=== PATIENT | female | born 1940 | race Caucasian/White ===

== ENCOUNTER → 2016-09-12 | Day surgery (SDC) | payer MEDICARE, OTHER ==
[2016-09-09 15:49] VITALS: Ht 162.6 cm; Wt 47.7 kg
[~2016-09-12] VITALS: Ht 162.6 cm; Wt 47.7 kg
[~2016-09-12] MED LIST: ACET-1175 PO; ADVIN25/60 INH; ADVIN25050 INH; AMIT75TA2 PO; ANAG1CAP PO; CLC100 PO; CLOP1TAB15 PO; DAPT500I; DLD2 PO; DRGTP50 TD; DRGTP50 TOP; ERGO1CAP41 PO; ERGO500037 PO; ESCI10TA17 PO; GUAI1TAB75 PO; HYD500 PO; HYDR2TAB48 PO; HYDR500C3 PO; LIDOCAINE HCL 2% 2 ML VIAL (20MG/ML) ONE; LORA10CA2 PO; LVNIS30 SQ; MOMLX PO; MXL10 PO; NCDT14 TD; NICO14DI31 TD; NUTRLIQ21 PO; ONDA8TAB6 PO; OXYC-57 PO; PANT40TA PO; PREG1CAP28 PO; PREG1CAP36 PO; PREG75CA PO; PROPOFOL IV EMULSION 10 MG/ML 20 ML VIAL IV ONE; PRT/20 PO; PRT/40 PO; PRT40 PO; PRVHFAIN INH; RIZA1TAB11 PO; SNK PO; SODIUM CHLORIDE 0.9% 500ML 500 ML IV ONE; TEMA30CA4 PO; ZNTT/150 PO
--- NOTE | 2016-09-12 09:47 | GI REPORT ---
Procedure Date: 09/12/2016 9:26 AM Procedure: Upper GI endoscopy Indications: Follow-up of acute duodenal ulcer with hemorrhage Medicines: Monitored Anesthesia Care Complications: No immediate complications. Estimated blood loss: None. Estimated Blood Loss: Estimated blood loss: none. Procedure: Pre-Anesthesia Assessment: - Prior to the procedure, a History and Physical was performed, and patient medications, allergies and sensitivities were reviewed. The patient's tolerance of previous anesthesia was reviewed. - ASA Grade Assessment: III - A patient with severe systemic disease. After obtaining informed consent, the endoscope was passed under direct vision. Throughout the procedure, the patient's blood pressure, pulse, and oxygen saturations were monitored continuously. The Scope was introduced through the mouth, and advanced to the third part of duodenum. The upper GI endoscopy was accomplished with ease. The patient tolerated the procedure well. Findings: The examined esophagus was normal. The Z-line was regular and was found 39 cm from the incisors. A medium amount of food (residue) was found on the greater curvature of the stomach. One non-bleeding cratered duodenal ulcer with no stigmata of bleeding was found in the duodenal bulb. An acquired benign-appearing, intrinsic moderate stenosis was found in the distal duodenal bulb and was traversed. Impression: - Normal esophagus. - Z-line regular, 39 cm from the incisors. - A medium amount of food (residue) in the stomach. - One non-bleeding duodenal ulcer with no stigmata of bleeding. - Acquired duodenal stenosis. - No specimens collected. Recommendation: - Chopped diet. - Use Protonix (pantoprazole) 40 mg PO BID. - Perform an upper GI endoscopy in 1 month. Vance Redding M.D. Vance Redding MD 09/12/2016 9:46:15 AM This report has been signed electronically. Note Initiated On: 09/12/2016 9:26 AM
--- NOTE | 2016-09-12 09:47 | Endo History and Physical ---
History & Physical Date of Service: Sep 12, 2016. Chief Complaint: 8WK F/U DUODENAL ULCER Referring Physician: DR. RIKKI AHN History of Present Illness History of duodenal ulcer, for follow up Past Surgical History Hx Cardiac Surgery: No Hx Internal Defibrillator: No Hx Pacemaker: No Hx Abdominal Surgery: Yes (AVELINO, GARIMA) Hx of Implantable Prosthesis: No Hx Post-Op Nausea and Vomiting: No Hx Cancer Surgery: Yes (RT MASTECTOMY) Hx Thoracic Surgery: No Hx Orthopedic: Yes (ORIF LEFT HIP) Hx Urinary Tract Surgery: No Family History Colon CA Social History Smoking Status: Current Every Day Smoker Hx Substance Use: Yes (SEE MED REC) Hx Alcohol Use: No Allergies Coded Allergies: Lobster (Verified Allergy, Severe, HIVES, 09/12/16) NO KNOWN DRUG ALLERGIES (Verified Allergy, Unknown, ., 09/12/16) Current Medications Reported Home Medications Medications Dose Route/Sig Max Daily Dose Days Date Category Dose Instructions [place] Instant Breakfa (Nutritional Supplements) 1 Liq Liq 1-2 Dose PO DAILY 09/01/16 Reported Lexapro (Escitalopram Oxalate) 10 Mg Tab 10 Mg PO DAILY 08/24/16 Reported Plavix (Clopidogrel Bisulfate) 75 Mg Tab 75 Mg PO DAILY 08/24/16 Reported Zofran (Ondansetron HCl) 8 Mg Tab 8 Mg PO TID PRN 08/24/16 Reported Elavil (Amitriptyline Hcl) 75 Mg Tab 75 Mg PO HS 08/24/16 Reported Hydromorphone HCl 2 Mg Tab 2 Mg PO Q4H PRN 30 08/02/16 Rx Advair Diskus 250-50 Mcg/Dose (Fluticasone Prop/Salmeterol) 14 Puff/1 Inhaler Aerp 1 Puff INH BID 30 08/02/16 Rx Pantoprazole Sodium (Pantoprazole) 40 Mg Tab 40 Mg PO BID 30 07/25/16 Rx Docusate Sodium 100 Mg Cap 100 Mg PO BID 30 07/25/16 Rx HOLD FOR LOOSE STOOL Rizatriptan Benzoate 10 Mg Tab 10 Mg PO UD PRN 07/25/16 Rx Fentanyl 50 Mcg Tdsy 50 Mcg TD Q3D@1800 30 07/25/16 Rx Ventolin Hfa (Albuterol) 60 Puffs/5400 Mcg Aers 2 Puffs INH Q6H PRN 30 07/25/16 Rx Restoril (Temazepam) 30 Mg Cap 30 Mg PO HS 30 07/25/16 Rx Lyrica (Pregabalin) 75 Mg Cap 75 Mg PO DAILY 07/23/16 Reported Vital Signs Weight (Kilograms): 47.73 Height (Feet): 5 Height (Inches): 4 Date Time Temp Pulse Resp B/P Pulse Ox O2 Delivery O2 Flow Rate FiO2 09/12/16 08:59 36.8 66 16 91/50 96 Room Air Physical Exam General Appearance: WD/WN, no apparent distress Respiratory/Chest: Auscultation: breath sounds normal, no wheezing Cardiovascular: Heart Auscultation: RRR, no murmurs Abdomen: Inspection & Palpation: soft, no tenderness, guarding & rebound Assessment and Plan Cleared for EGD
--- NOTE | 2016-09-12 09:50 | Discharge Instructions ---
Endoscopy Patient Instructions Date / Procedure(s) Performed Sep 12, 2016. EGD Allergy Information Coded Allergies: Lobster (Verified Allergy, Severe, HIVES, 09/12/16) NO KNOWN DRUG ALLERGIES (Verified Allergy, Unknown, ., 09/12/16) Discharge Date / Findings Sep 12, 2016. Duodenal ulcer. Duodenal stricture. Retain food in stomach. Medication Instructions Stopped Medication(s): PLAVIX 09/11/16 Restart Stopped Medication(s): Restart medications. Take pantoprazole twice daily, before breakfast and before supper. Provider Instructions Activity Restrictions - No exercising or heavy lifting for 24 hours. - Do not drink alcohol the day of the procedure. - Do not drive a car or operate machinery until the day after the procedure. - Do not make any important decisions or sign important papers in 24 hours after the procedure. Following Day: - Return to full activity which may include returning to work/school. Diet Start your diet with liquids and light foods (jello, soup, juice, toast). Then advance to a soft, chopped diet. Treatment For Common After Affects For mild abdominal pain, bloating, or excessive gas: - Rest - Eat lightly - Lie on right side Follow-Up Information Follow-up with DR. RIKKI AHN as scheduled Repeat EGD in one month. Stay on a liquid diet for the day before the procedure. Anesthesia Information What You Should Know You have had a procedure that required some medicine to reduce anxiety and discomfort. This treatment is called moderate sedation. After receiving the treatment, you may be sleepy, but you will be able to breathe on your own. The effects of the treatment may last for several hours. Follow these instructions along with Activity/Diet recommendations noted above: * Do NOT do anything where dizziness or clumsiness would be dangerous. * Rest quietly at home today, then you can be up and about tomorrow. * Have a responsible person stay with you the rest of today. * You may have had an I.V. today. If so, you may take the dressing off later today. Recommendations Call your doctor if: * Trouble breathing * Continuous vomiting for more than 24 hours * Temperature above 101 degrees * Severe abdominal pain or bloating * Pain not relieved by pain medicine ordered * There is increased drainage or redness from any incision * A large amount of rectal bleeding greater than 2-3 tablespoons. (If you had a polyp/s removed or have hemorrhoids, a small amount of blood - from the rectum is to be expected.) * You have any unanswered questions or concerns. IN THE EVENT OF A SERIOUS EMERGENCY, GO TO THE NEAREST EMERGENCY ROOM Your discharge instructions were prepared by provider Vance Redding. Patient Instructions Signature Page Abbie Rand Patient (or Guardian) Signature/Date: I have read and understand the instructions given to me by my caregivers. Caregiver/RN/Doctor Signature/Date: The above-named patient and/or guardian has received patient instructions on this date. + Original Patient Signature Page (only) stays with chart. Please make copy for patient.
[2016-09-12 10:10] VITALS: BP 101/55; PULSE 83; O2SAT 95
--- NOTE | 2016-09-12 11:18 | Anesthesiology Progress Note ---
Anesthesia Post Op Note Date & Time Sep 12, 2016 at 11:17 Vital Signs Pain Intensity: 0 Vital Signs Past 12 Hours Date Time Temp Pulse Resp B/P Pulse Ox O2 Delivery O2 Flow Rate FiO2 09/12/16 10:10 83 16 101/55 95 Room Air 09/12/16 09:55 85 16 104/55 96 Room Air 09/12/16 09:40 88 16 118/58 98 Room Air 09/12/16 08:59 36.8 66 16 91/50 96 Room Air Notes Mental Status: alert / awake / arousable, participated in evaluation Pt Amnestic to Procedure: Yes Nausea / Vomiting: adequately controlled Pain: adequately controlled Airway Patency, RR, SpO2: stable & adequate BP & HR: stable & adequate Hydration State: stable & adequate Anesthetic Complications: no major complications apparent
== END | disposition home or self-care (01) ==
LOC: C.GI 08:25
PROVIDERS: ATTEND Internal Medicine Gastroenterology
DX: Z09 Encounter for follow-up examination after completed treatment for conditions other than malignant neoplasm (principal); K26.9 Duodenal ulcer, unspecified as acute or chronic, without hemorrhage or perforation; K31.5 Obstruction of duodenum; J44.9 Chronic obstructive pulmonary disease, unspecified; F32.9 Major depressive disorder, single episode, unspecified; F41.9 Anxiety disorder, unspecified; Z68.1 Body mass index [BMI] 19.9 or less, adult; Z79.02 Long term (current) use of antithrombotics/antiplatelets

== ENCOUNTER → 2016-09-22 | Outpatient (CLI) | payer MEDICARE, OTHER ==
[~2016-09-22] VITALS: Ht 162.6 cm; Wt 48.4 kg
[~2016-09-22] MED LIST changes: +ACETAMINOPHEN 500 MG TAB PO SCH; +CEFAZOLIN 2000 MG/60 ML D5W 60 ML IV SCH; +DEXAMETHASONE 4 MG TAB PO SCH; +FAMOTIDINE 20 MG TAB PO SCH; +GABAPENTIN 300 MG CAP PO SCH; +LACTATED RINGER'S 1000ML IV SCH; -LIDOCAINE HCL 2% 2 ML VIAL (20MG/ML) ONE; +METOCLOPRAMIDE HCL 10 MG TAB PO SCH; +POLYMYXIN B SULFATE 100,000 UNITS in NSS 100ML IR SCH; -PROPOFOL IV EMULSION 10 MG/ML 20 ML VIAL IV ONE; +ROPIVACAINE 5MG/ML 30 ML 150 MG, BUPIVACAINE/EPINEPHR 0.5% MPF 30 ML, KETOROLAC TROMETH... INFIL SCH; -SODIUM CHLORIDE 0.9% 500ML 500 ML IV ONE; +VANCOMYCIN INJ 400 MG in NSS 100ML IR SCH; -ZNTT/150 PO
[2016-09-22 15:33] VITALS: Ht 162.6 cm; Wt 48.4 kg
--- NOTE | 2016-09-22 15:53 | HISTORY & PHYSICAL EXAMINATION ---
DATE OF ADMISSION: 09/26/2016 CHIEF COMPLAINT: Failed open reduction internal fixation left hip. HISTORY OF PRESENT ILLNESS: Ms. Rand is a 76-year-old female who had a hip fracture in March 2016 and has subsequently undergone ORIF of the left hip with cannulated screws. The patient has been painful since her surgery. She was recently admitted to [facility] for a bleeding ulcer and was evaluated for hip pain. 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 She has been medically unstable since that time. She is also diagnosed with myeloproliferative disease. She has since been cleared by her GI doctor. Hematology has evaluated her and has determined that it would be up to anesthesia and Dr. Avendaño and whether they would like to proceed with her case knowing that she is a high risk. The patient is also a smoker, which increases her risk for clotting. The patient is currently wheelchair bound and is aware of the risk factors involved. The patient is being seen in our office today for preop. PAST MEDICAL HISTORY: Myeloproliferative disease and history of GI bleed. She denies heart disease, diabetes or DVT. PAST SURGICAL HISTORY: Hysterectomy, breast mastectomy, and ORIF left hip. SOCIAL HISTORY: The patient denies alcohol use. She smokes 6-9 cigarettes per day. She lives in a 2-story home with her daughter and her grandchildren and is retired. FAMILY HISTORY: Negative for DVT. MEDICATIONS: Hydromorphone 2 mg tablets 1 tablet q. 4-6 hours p.r.n., Restoril 30 mg at bedtime p.r.n., Lyrica 1 tablet at bedtime, amitriptyline 75 mg at bedtime, Protonix 40 mg b.i.d. and Plavix 75 mg daily. ALLERGIES: None. REVIEW OF SYSTEMS: See HPI. Ten other systems reviewed, all negative. PHYSICAL EXAMINATION: VITAL SIGNS: Height 5 feet 4 inches, weight 102 pounds, BMI is 18. GENERAL: This is a well-developed, well-nourished female who is alert and oriented x3. Mood and affect are appropriate. HEENT: Normocephalic, atraumatic. Mucous membranes are moist and intact. NECK: Supple without lymphadenopathy. HEART: Regular rate and rhythm without murmurs, rubs or gallops. LUNGS: Clear to auscultation without wheezes or rhonchi. ABDOMEN: Soft and nontender. Bowel sounds are equal and active. EXTREMITIES: No ecchymosis, redness or warmth. She has a lateral scar from previous surgery. Log roll of the hip reproduces pain in the groin. She is neurovascularly intact with +5/5 strength. X-RAY EXAMINATION: AP and lateral views show significant drainage changes over the left hip with failure of her ORIF. IMPRESSION AND PLAN: The patient will be admitted for removal of hardware with left total hip arthroplasty per Dr. Avendaño. The patient is aware that she is high risk for surgery due to her clotting disorder and her smoking habit. The patient is currently on Plavix, which will need to be stopped today in order to proceed with surgery on Monday. The patient is having anesthesia evaluation today; if cleared, the patient will plan for surgery on Monday. At this point, I feel patient is optimized. Her GI ulcer is healing and is not actively bleeding. Again, she is wheelchair bound. The patient would like to proceed despite the risk factors. We will resume Plavix and likely an 81 mg aspirin daily postoperatively. PCP is Dr. Chavez of [facility].
--- NOTE | 2016-09-22 16:31 | PAT Medication Instructions ---
Service Date Sep 22, 2016. Current Home Medication List Albuterol (Ventolin Hfa), 2 PUFFS INH Q6H PRN for wheezing Amitriptyline Hcl (Elavil), 75 MG PO HS Clopidogrel (Plavix), 75 MG PO QAM Fentanyl (Fentanyl), 1 PATCH TOP EVERY THREE DAYS Fluticasone Prop/Salmeterol (Advair Diskus 250-50 Mcg/Dose), 1 PUFF INH BID Nutritional Supplements ([place] Instant Breakfa), 1-2 DOSE PO DAILY Ondansetron Hcl (Zofran), 8 MG PO TID PRN for Nausea Pantoprazole (Protonix), Unknown Dose PO BID Pantoprazole (Pantoprazole Sodium), 1 TAB PO BID Pregabalin (Lyrica), 75 MG PO HS Rizatriptan Benzoate (Rizatriptan Benzoate), 10 MG PO UD PRN for headache Temazepam (Restoril), 30 MG PO HS Medication Instructions For Your Scheduled Surgery Clopidogrel (Plavix), 75 MG PO QAM (last dose was 09/22/16 per surgeon instructions) Fentanyl (Fentanyl), 1 PATCH TOP EVERY THREE DAYS (continue as usual) Rizatriptan Benzoate (Rizatriptan Benzoate), 10 MG PO UD PRN for headache (only takes with migraines) - Hold the following medications the morning of surgery: Nutritional Supplements ([place] Instant Breakfa), 1-2 DOSE PO DAILY - Take the following medications the morning of surgery with a sip of water: Pantoprazole (Pantoprazole Sodium), 1 TAB PO BID Ondansetron Hcl (Zofran), 8 MG PO TID PRN for Nausea (if needed) Fluticasone Prop/Salmeterol (Advair Diskus 250-50 Mcg/Dose), 1 PUFF INH BID Albuterol (Ventolin Hfa), 2 PUFFS INH Q6H PRN for wheezing (bring with you to hospital on day of surgery) - Take the following medications as scheduled the night before surgery: Temazepam (Restoril), 30 MG PO HS. Pregabalin (Lyrica), 75 MG PO HS Pantoprazole (Pantoprazole Sodium), 1 TAB PO BID Fluticasone Prop/Salmeterol (Advair Diskus 250-50 Mcg/Dose), 1 PUFF INH BID Albuterol (Ventolin Hfa), 2 PUFFS INH Q6H PRN for wheezing Amitriptyline Hcl (Elavil), 75 MG PO HS CALL HOSPITAL MONDAY FOR SURGERY TIME If you have any questions please call us at [phone] or [phone] ( [place]) or [phone]
[2016-09-22 16:38] LABS: URINE APPEARANCE CLEAR (CLEAR); URINE BILIRUBIN NEG (NEG); URINE COLOR YELLOW; URINE NITRITE NEG (NEG); URINE PH 5.5 (4.5-7.5); URINE SPECIFIC GRAVITY 1.017 (1.000-1.030); UROBILINOGEN NEG (NEG); ZZUR CULT IF INDIC CLEAN CATCH NO
[2016-09-22 16:42] LABS: MANUAL MICROSCOPIC REQUIRED? NO; REVIEW REQ? NO
[2016-09-22 16:48] LABS: PARTIAL THROMBOPLASTIN RATIO 1.1; PROTHROMBIN TIME (PATIENT) 10.7 SECONDS (9.0-12.0)
--- NOTE | 2016-09-22 17:20 | DIAGNOSTIC IMAGING REPORT ---
CHEST 2 VIEWS ROUTINE HISTORY: Preop. COMPARISON: Chest 09/01/2016. FINDINGS: The heart is normal in size. The lungs remain hyperexpanded. Blunting of the bilateral costophrenic sulci suggest trace pleural effusions. Postoperative changes within the right breast. Mild anterior wedge-shaped compression deformity at T12. This is age indeterminate. Greater than expected density overlying the lower thoracic spine on the lateral views. This is consistent with a small airspace opacity. No pneumothorax. 8 mm left midlung zone nodular density is consistent with a nipple shadow. IMPRESSION: 1. Small patchy densities at the lung bases best seen on the lateral view. This likely represents a pneumonia. 2. Trace bilateral pleural effusions. 3. Age-indeterminate mild compression deformity at T12. Electronically signed by: Johnnie Simental M.D. 09/22/2016 5:18 PM Dictated Date/Time: 09/22/2016 5:13 PM
== END | disposition home or self-care (01) ==
LOC: C.LAB 08:00 → EDSTATUS 09-26 13:15
PROVIDERS: ATTEND Orthopaedic Surgery
DX: Z01.810 Encounter for preprocedural cardiovascular examination (principal); Z01.812 Encounter for preprocedural laboratory examination

== ENCOUNTER 2016-10-16 16:13 | Inpatient (IN) | payer MEDICARE, OTHER ==
[~2016-10-16] VITALS: Ht 162.6 cm; Wt 46.5 kg
[~2016-10-16 16:13] MED LIST changes: -ACET-1175 PO; -ACETAMINOPHEN 500 MG TAB PO SCH; -ADVIN25/60 INH; -AMIT75TA2 PO; -ANAG1CAP PO; -CEFAZOLIN 2000 MG/60 ML D5W 60 ML IV SCH; -CLC100 PO; -CLOP1TAB15 PO; -DAPT500I; -DEXAMETHASONE 4 MG TAB PO SCH; -DLD2 PO; -DRGTP50 TD; -ERGO1CAP41 PO; -ERGO500037 PO; -ESCI10TA17 PO; -FAMOTIDINE 20 MG TAB PO SCH; -GABAPENTIN 300 MG CAP PO SCH; -GUAI1TAB75 PO; -HYD500 PO; -HYDR2TAB48 PO; -HYDR500C3 PO; -LACTATED RINGER'S 1000ML IV SCH; -LORA10CA2 PO; -LVNIS30 SQ; -METOCLOPRAMIDE HCL 10 MG TAB PO SCH; -MOMLX PO; -NCDT14 TD; -NICO14DI31 TD; -NUTRLIQ21 PO; -ONDA8TAB6 PO; -OXYC-57 PO; -PANT40TA PO; -POLYMYXIN B SULFATE 100,000 UNITS in NSS 100ML IR SCH; -PREG1CAP28 PO; -PREG1CAP36 PO; -PREG75CA PO; -PRT/20 PO; -PRT/40 PO; -PRT40 PO; -RIZA1TAB11 PO; -ROPIVACAINE 5MG/ML 30 ML 150 MG, BUPIVACAINE/EPINEPHR 0.5% MPF 30 ML, KETOROLAC TROMETH... INFIL SCH; -SNK PO; -VANCOMYCIN INJ 400 MG in NSS 100ML IR SCH
--- NOTE | 2016-10-16 16:37 | EMERGENCY ROOM VISIT NOTE ---
History Report prepared by Santiiblang: Sharon Dupree Under the Supervision of: Dr. Ariel Mina M.D. First contact with patient: 16:26 Chief Complaint: HIP PAIN Stated Complaint: L HIP PAIN/INJURY History of Present Illness The patient is a 76 year old female who presents to the Emergency Room with complaints of worsening left sided hip pain for the past several weeks. She is accompanied by her daughter. She reports she broke the hip back in March 2016. She had surgery performed in [place], [place] in April 2016, and was told to stay off her feet for about 8 weeks. She followed the post-op instructions, then in July 2016, was seen here in the hospital for a GI bleed. A CT scan showed the hip had been fractured again. She is awaiting surgery by Dr. Avendaño, [facility], and her daughter reports he wants to do a "whole hip replacement surgery". The patient has not been allowed to walk since July and has been using a wheelchair. She fell two days ago and states she cannot stand the pain, which she rates as an 8/10. She has tried taking Dilaudid, but states it has not touched it. She cannot walk and any movement of the hip worsens her discomfort. She denies any GI symptoms and states her stomach feels much better than it did when she had the GI bleed. Source of History: patient Onset: several weeks [employer] Position: other (left hip) Symptom Intensity: 8/10 Timing: worsening Modifying Factors (Worsening): movement Modifying Factors (Relieving): narcotics (Dilaudid) Review of Systems All systems have been listed, reviewed, and are negative other than those previously mentioned. Please see Additional Medical History Sheet. Past Medical & Surgical Medical Problems: (1) Anemia (2) Anemia due to blood loss, acute (3) Breast CA (4) COPD (chronic obstructive pulmonary disease) (5) History of breast cancer (6) History of peptic ulcer disease (7) Left hip pain (8) Myelodysplastic syndrome (9) S/P ORIF (open reduction internal fixation) fracture Surgical Problems: (1) History of repair of left hip joint (2) Status post cholecystectomy (3) Status post hysterectomy (4) Status post mastectomy Family History Colon cancer FATHER Social History Smoking Status: Current Every Day Smoker Drug Use: none Marital Status: Housing Status: lives with family Occupation Status: unemployed Current/Historical Medications Scheduled Amitriptyline Hcl (Elavil), 75 MG PO HS Clopidogrel (Plavix), 75 MG PO QAM Fentanyl (Fentanyl), 50 MCG TOP CQ72HR Fluticasone Prop/Salmeterol (Advair Diskus 250/50 60 Dose), 1 PUFF INH BID Nutritional Supplements ([place] Instant Breakfa), 1-2 DOSE PO DAILY Pantoprazole (Protonix), 40 MG PO BID Pregabalin (Lyrica), 75 MG PO HS Temazepam (Restoril), 30 MG PO HS Scheduled PRN Albuterol (Ventolin Hfa), 2 PUFFS INH Q6H PRN for Wheezing Hydromorphone Hcl (Dilaudid), 2 MG PO Q4-6HRS PRN for Pain Ondansetron Hcl (Zofran), 8 MG PO TID PRN for Nausea Rizatriptan Benzoate (Rizatriptan Benzoate), 10 MG PO UD PRN for Headache Allergies Coded Allergies: Lobster (Verified Allergy, Severe, HIVES, 10/14/16) Latex1 -Allergic Contact Dermititis (Verified Allergy, Unknown, HIVES, 06/20) NO KNOWN DRUG ALLERGIES (Verified Allergy, Unknown, ., 10/14/16) Uncoded Allergies: METALS (Allergy, Unknown, HIVES/ITCHINESS, 09/22/16) PATIENT REPORTS ANY METALS UNDER 14 KT GOLD CAUSES HER TO BECOME ITCHY AND GET HIVES Physical Exam Vital Signs Date Time Temp Pulse Resp B/P Pulse Ox O2 Delivery O2 Flow Rate FiO2 10/16/16 17:53 87 20 103/53 93 Room Air 10/16/16 16:22 36.8 89 20 108/61 97 Room Air Physical Exam GENERAL: Patient awake, alert, oriented x 3. She appears to be in moderate distress. Patient follows commands. Patient does not appear toxic. Patient is adequately hydrated and well-nourished. SKIN: No erythema, pallor, cyanosis or rash HEENT: Normal head, pupils equal, reactive to light and accommodation. Ears normal. Oral cavity and posterior pharynx appear normal. Neck: Without adenopathy, no neck vein distention. LUNGS: Occasional wheezes bilaterally. No rales, no rhonchi. HEART: No murmurs. No gallops. No rubs ABDOMEN: Soft, nontender. EXTREMITIES: Point tenderness over left hip. Unable to move left leg without significant pain. No pedal or pretibial edema. No calf or thigh tenderness. NEUROLOGIC: Cranial nerves II-XII within normal limits. No gross motor sensory function deficits. Medical Decision & Procedures ER Provider Diagnostic Interpretation: This X-Ray was reviewed and interpreted by myself and the radiologist. CHEST ONE VIEW PORTABLE IMPRESSION: No acute cardiopulmonary findings. Electronically signed by: Constantin Richter M.D. 10/16/2016 5:[address] scan was reviewed and interpreted by the radiologist and reviewed by myself. CT OF THE LEFT HIP WITHOUT CONTRAST IMPRESSION: No change in appearance of the left hip since exam of July 24, 2016 status post internal fixation of a femoral neck fracture with 3 cannulated screws. No acute fracture. Incomplete healing of the mildly displaced, impacted left femoral neck fracture without significant interval healing. No change in alignment. The findings could reflect incomplete union or subacute on chronic fracture. Electronically signed by: Constantin Richter M.D. 10/16/2016 5:54 PM Laboratory Results 10/16/16 16:55 Red Blood Count 4.19, Mean Corpuscular Volume 80.4, Mean Corpuscular Hemoglobin 25.1, Mean Corpuscular Hemoglobin Concent 31.2, Mean Platelet Volume 11.2 10/16/16 16:55 Test 10/16/16 16:55 10/16/16 18:36 White Blood Count 17.14 K/uL (4.8-10.8) Red Blood Count 4.19 M/uL (4.2-5.4) Hemoglobin 10.5 g/dL (12.0-16.0) Hematocrit 33.7 % (37-47) Mean Corpuscular Volume 80.4 fL (80-100) Mean Corpuscular Hemoglobin 25.1 pg (25-34) Mean Corpuscular Hemoglobin Concent 31.2 g/dl (32-36) Platelet Count 1417 K/uL (130-400) Mean Platelet Volume 11.2 fL (7.4-10.4) RDW Standard Deviation 93.7 fL (36.4-46.3) RDW Coefficient of Variation 31.7 % (11.5-14.5) Nucleated RBC Absolute Count (auto) 0.08 K/uL (0-0) Neutrophils % (Manual) 58.3 % Lymphocytes % (Manual) 20.9 % Monocytes % (Manual) 4.3 % Eosinophils % (Manual) 11.3 % Basophils % (Manual) 5.2 % Nucleated Red Blood Cells % 0.5 % Neutrophils # (Manual) 9.99 K/uL (1.4-6.5) Total Absolute Neutrophils 9.99 K/uL (1.4-6.5) Lymphocytes # (Manual) 3.58 K/uL (1.2-3.4) Total Absolute Lymphocytes 3.58 K/uL (1.2-3.4) Monocytes # (Manual) 0.74 K/uL (0.11-0.59) Eosinophils # (Manual) 1.94 K/uL (0-0.5) Basophils # (Manual) 0.89 K/uL (0-0.2) Hypochromasia PRESENT Anisocytosis PRESENT Ovalocytes 1+ Anion Gap 11.0 mmol/L (3-11) Est Creatinine Clear Calc Drug Dose 36.2 ml/min Estimated GFR () 64.3 Estimated GFR (Non- 55.5 BUN/Creatinine Ratio 18.2 (10-20) Calcium Level 8.2 mg/dl (8.5-10.1) Laboratory results as stated above per my review. Medications Administered Medications (Trade) Dose Ordered Sig/Pradip Route Start Time Stop Time Status Last Admin Dose Admin Hydromorphone HCl (Dilaudid Inj) 1 mg Q1HWA PRN IV 10/16/16 16:45 10/30/16 16:44 10/16/16 18:08 1 MG Ondansetron HCl (Zofran Inj) 4 mg Q1HWA PRN IV 10/16/16 16:45 11/15/16 16:44 10/16/16 18:08 4 MG ECG Indication: other (worsening left hip pain) Rate (beats per minute): 85 Rhythm: normal sinus (normal sinus rhythm) Findings: RBBB (incomplete RBBB), no acute ischemic change, no ectopy ED Course 1626: Past medical records reviewed. The patient was evaluated in room B3. A complete history and physical examination was performed. 1645: Zofran 4 mg IV, Dilaudid 1 mg IV. 1821: I discussed the patients case with Aracelis Sommer Hospitalist. The patient will be further evaluated. 183: I discussed the patients case with Dr. Zelaya [facility]. The patient will be further evaluated. 183: I reevaluated the patient. I discussed my recommendation that she remain in the hospital for further evaluation and management and she and her daughter verbalized complete understanding and agreement. Medical Decision The differential diagnoses considered include: New hip fracture, complication from prior surgery, pneumonia, history of peptic ulcer disease. The patient has a history of myelodysplastic syndrome. The patient now states that she is unable to bear the pain at home despite taking Dilaudid. Multiple imaging studies and blood work were obtained. Please see above. The patient does not appear to have a new fracture today but she does have some question of nonunion. The patient is unable to move without significant pain. White count is elevated. Platelet count is elevated. These are consistent with prior studies. I discussed care with orthopedics and with medicine. The patient will require further evaluation in the hospital and pain management. Consults Time Called: 1814 Consulting Physician: Lorena Gallardo PA-C [facility] Returned Call: [phone] I [facility] the [facility] The patient will be further evaluated. Additional Consults: Time Called: 180 Consulted Physician: Dr. Zelaya [facility] Returned Call: [phone] Additional Comments: I discussed the patients case with Dr. Zelaya [facility]. The patient will be further evaluated. Impression Primary Impression: Intractable pain Additional Impressions: History of hip fracture History of repair of left hip joint Myelodysplasia (myelodysplastic syndrome) Peptic ulcer disease History of pneumonia Scribe Attestation The scribe's documentation has been prepared under my direction and personally reviewed by me in its entirety. I confirm that the note above accurately reflects all work, treatment, procedures, and medical decision making performed by me. Departure Information Dispostion Being Evaluated By Hospitalist Referrals Valerie Chavez M.D. (PCP) Patient Instructions My [facility] Problem Qualifiers
[2016-10-16] MEDS: ONDANSETRON INJ 2 MG/ML 2 ML VIAL IV PRN ×2 (16:57→18:08)
[2016-10-16] MEDS: HYDROmorphone INJ 1 MG/ML SYR IV PRN ×4 (16:57→22:50)
[2016-10-16] MEDS ORDERED: TEMA30CA4 PO (17:00)
[2016-10-16] MEDS ORDERED: HYDR2TAB48 PO (17:00)
--- NOTE | 2016-10-16 17:25 | DIAGNOSTIC IMAGING REPORT ---
CHEST ONE VIEW PORTABLE CLINICAL HISTORY: Wheezing. Prior pneumonia. COMPARISON STUDY: Chest radiograph September 22, 2016. FINDINGS: A right breast implant and right axillary surgical clips are noted. Chronic deformity of the left humeral head and neck is noted. There is no pneumothorax or pleural effusion. There is no consolidation to suggest pneumonia. Cardiac size is normal. Mediastinal contours are normal. The patient is rotated. IMPRESSION: No acute cardiopulmonary findings. Electronically signed by: Constantin Richter M.D. 10/16/2016 5:24 PM Dictated Date/Time: 10/16/2016 5:22 PM
[2016-10-16 17:26] LABS: HEMATOCRIT 33.7 % (37-47); MEAN CELL VOLUME 80.4 fL (80-100); MEAN CORPUSCULAR HEMOGLOBIN 25.1 pg (25-34); MEAN CORPUSCULAR HGB CONC 31.2 g/dl (32-36); MEAN PLATELET VOLUME 11.2 fL (7.4-10.4); PLATELET COUNT 1417 K/uL (130-400); RED BLOOD COUNT 4.19 M/uL (4.2-5.4); WHITE BLOOD COUNT 17.14 K/uL (4.8-10.8)
[2016-10-16 17:29] LABS: BUN/CREATININE RATIO 18.2 (10-20); CALCIUM 8.2 mg/dl (8.5-10.1); POTASSIUM 4.3 mmol/L (3.5-5.1)
--- NOTE | 2016-10-16 17:56 | DIAGNOSTIC IMAGING REPORT ---
CT OF THE LEFT HIP WITHOUT CONTRAST CT DOSE: 142.41 mGy.cm CLINICAL HISTORY: Prior fracture and fixation. Recent fall. Left hip pain. TECHNIQUE: Axial images of the left hip were obtained without IV contrast. Sagittal and coronal reconstructions were viewed. COMPARISON STUDY: CT of the left hip July 24, 2016. FINDINGS: 3 cannulated screws fixating a left femoral neck fracture are again noted. The postoperative appearance is unchanged since exam of July 24, 2016. The fracture is subcapital in location. The fracture is impacted and mildly displaced. Hardware is intact although several screws may be retracted. Sclerosis at the fracture site is noted. Partial interval healing of the fracture is noted. No significant change since exam of July 24, 2016 is noted. No acute fracture is identified. The appearance of the left hip is unchanged since prior exam. Subcutaneous edema of the left thigh and buttock is again noted. No fluid collection is identified on this unenhanced examination. IMPRESSION: No change in appearance of the left hip since exam of July 24, 2016 status post internal fixation of a femoral neck fracture with 3 cannulated screws. No acute fracture. Incomplete healing of the mildly displaced, impacted left femoral neck fracture without significant interval healing. No change in alignment. The findings could reflect incomplete union or subacute on chronic fracture. Electronically signed by: Constantin Richter M.D. 10/16/2016 5:54 PM Dictated Date/Time: 10/16/2016 5:40 PM
[2016-10-16 18:02] LABS: ANISOCYTOSIS PRESENT; BASO ABS # 0.89 K/uL (0-0.2); BASOPHIL % 5.2 %; COMPLETE YES; EOSINOPHIL % 11.3 %; HYPOCHROMIA PRESENT; LYMPH ABS # 3.58 K/uL (1.2-3.4); LYMPHOCYTE % 20.9 %; NEUTROPHILS % 58.3 %; OVALOCYTES 1+
[2016-10-16 18:50] LABS: INR 1.1 (0.9-1.1); PARTIAL THROMBOPLASTIN RATIO 1.1; PROTHROMBIN TIME (PATIENT) 11.4 SECONDS (9.0-12.0)
[2016-10-16] MEDS ORDERED: POLYETHYLENE (MIRALAX) 17 GM PACK PO PRN (19:30)
[2016-10-16] MEDS ORDERED: ENOXAPARIN 40 MG/0.4 ML SYR SQ SCH (19:30)
[2016-10-16] MEDS ORDERED: ALBUTEROL HFA 8 GM INHALER INH PRN (19:45)
[2016-10-16] MEDS ORDERED: GUAI1TAB75 PO (19:54)
--- NOTE | 2016-10-16 20:01 | History and Physical ---
History & Physical Date & Time of Service: Oct 16, 2016 at 19:23 Chief Complaint: L Hip Pain/Injury Primary Care Physician: Valerie Chavez M.D. History of Present Illness Source: patient, family, clinic records, hospital records Patient seen and examined. 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 Patient has a history of left hip fracture in March s/p ORIF. 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 She was scheduled for surgery with Dr. Avendaño in September but this was cancelled d/t pneumonia. Patient reports 2 days ago she was standing in front of her wheel chair at the sink and she must not have locked it. When she went to sit back on the wheel chair the chair slid out and she hit the floor. She reports since then she has had increased pain in the left hip and she states it was no longer tolerable with her fentanyl patch and Dilaudid po so she came to the ED. She describes her pain as sharp and throbbing and rates it as an 8/10. She denies fevers, chills, URI symptoms, chest pain, SOB, nausea, vomiting, diarrhea, dysuria, calf pain and edema. Denies numbness/tingling, head trauma. She was recently treat for pneumonia with per patient 2 rounds of Zpaks and reports her breathing and coughing are back at baseline (has underlying COPD). She had a GI bleed in July 2016 and has known duodenal ulcer. She is taking Protonix and is scheduled for repeat EGD later this month. She reports she is currently not under any treatment for myeloproliferative disorder but follows with Dr. Chavez. In the ED VS are stable , platelet count is >1million, WBC count is 17K, CXR is negative for acute changes, CT left hip is unchanged from previous. She received IV Dilaudid and is resting comfortably she will be admitted for further workup and treatment. Past Medical/Surgical History Medical Problems: (1) Anemia Status: Chronic (2) Anemia due to blood loss, acute Status: Chronic (3) Breast CA Status: Resolved (4) History of breast cancer Status: Chronic (5) History of peptic ulcer disease Status: Chronic (6) Myelodysplastic syndrome Status: Chronic (7) S/P ORIF (open reduction internal fixation) fracture Status: Chronic Surgical Problems: (1) History of repair of left hip joint Status: Resolved (2) Status post cholecystectomy Status: Chronic (3) Status post hysterectomy Status: Chronic (4) Status post mastectomy Permanent Comment: modified right mastectomy 1990 Status: Chronic Family History Colon cancer FATHER Social History Smoking Status: Current Every Day Smoker Drug Use: none Marital Status: Housing status: lives with family Occupational Status: retired Immunizations History of Influenza Vaccine: No History of Tetanus Vaccine?: No History of Pneumococcal: No History of Hepatitis B Vaccine: No Multi-Drug Resistant Organisms History of MDRO: No Allergies Coded Allergies: Lobster (Verified Allergy, Severe, HIVES, 10/14/16) Latex1 -Allergic Contact Dermititis (Verified Allergy, Unknown, HIVES, 06/20) NO KNOWN DRUG ALLERGIES (Verified Allergy, Unknown, ., 10/14/16) Uncoded Allergies: METALS (Allergy, Unknown, HIVES/ITCHINESS, 09/22/16) PATIENT REPORTS ANY METALS UNDER 14 KT GOLD CAUSES HER TO BECOME ITCHY AND GET HIVES Home Medications Scheduled Amitriptyline Hcl (Elavil), 75 MG PO HS Clopidogrel (Plavix), 75 MG PO QAM Fentanyl (Fentanyl), 50 MCG TOP CQ72HR Fluticasone Prop/Salmeterol (Advair Diskus 250/50 60 Dose), 1 PUFF INH BID Guaifenesin La (Guaifenesin Er), 600 MG PO Q12H Loratadine (Claritin), 10 MG PO DAILY Nutritional Supplements ([place] Instant Breakfa), 1-2 DOSE PO DAILY Pantoprazole (Protonix), 40 MG PO BID Pregabalin (Lyrica), 75 MG PO HS Temazepam (Restoril), 30 MG PO HS Scheduled PRN Albuterol (Ventolin Hfa), 2 PUFFS INH Q6H PRN for Wheezing Hydromorphone Hcl (Dilaudid), 2 MG PO Q4-6HRS PRN for Pain Ondansetron Hcl (Zofran), 8 MG PO TID PRN for Nausea Rizatriptan Benzoate (Rizatriptan Benzoate), 10 MG PO UD PRN for Headache Review of Systems Constitutional: No chills, No fever, No weakness Eyes: No worsening of vision ENT: No nasal symptoms Respiratory: No cough, No shortness of breath Cardiovascular: No chest pain, No edema, No palpitations Abdomen: No constipation, No diarrhea, No nausea, No pain, No vomiting Musculoskeletal: + joint pain, No calf pain, No swelling Genitourinary - Female: No dysuria Neurologic: No numbness/tingling, No vertigo Psychiatric: No depression symptoms Hematologic / Lymphatic: + problem reported (elevated platelet count ) Integumentary: No itch, No rash Allergic / Immunologic: No environmental allergies Physical Exam Vital Signs Date Time Temp Pulse Resp B/P Pulse Ox O2 Delivery O2 Flow Rate FiO2 10/16/16 17:53 87 20 103/53 93 Room Air 10/16/16 16:22 36.8 89 20 108/61 97 Room Air General Appearance: + pertinent finding (Very pleasant thin 76 year old female lying in bed in NAD with daughter at bedside ) Head: normocephalic, atraumatic Eyes: PERRL, EOMI, sclerae normal ENT: hearing grossly normal, pharynx normal Neck: supple, no JVD, trachea midline Respiratory/Chest: chest non-tender, no respiratory distress, no accessory muscle use, + pertinent finding (coarse breathsounds trace wheezes ) Cardiovascular: regular rate, rhythm, no edema, no gallop, no JVD, no murmur, normal peripheral pulses Abdomen/GI: normal bowel sounds, non tender, soft Back: normal inspection, no muscle spasm Extremities/Musculoskelatal: no calf tenderness, normal capillary refill, no pedal edema, + pertinent finding (Pain to palpation left hip, sensation and pulses intact ) Neurologic/Psych: alert, oriented x 3, + pertinent finding (no motor or sensory deficits noted on gross exam ) Skin: normal color, warm/dry, no rash Lymphatic: no adenopathy Diagnostics Laboratory Results Results Past 24 Hours Test 10/16/16 16:55 Range/Units White Blood Count 17.14 4.8-10.8 K/uL Red Blood Count 4.19 4.2-5.4 M/uL Hemoglobin 10.5 12.0-16.0 g/dL Hematocrit 33.7 37-47 % Mean Corpuscular Volume 80.4 80-100 fL Mean Corpuscular Hemoglobin 25.1 25-34 pg Mean Corpuscular Hemoglobin Concent 31.2 32-36 g/dl Platelet Count 1417 130-400 K/uL Mean Platelet Volume 11.2 7.4-10.4 fL RDW Standard Deviation 93.7 36.4-46.3 fL RDW Coefficient of Variation 31.7 11.5-14.5 % Nucleated RBC Absolute Count (auto) 0.08 0-0 K/uL Neutrophils % (Manual) 58.3 % Lymphocytes % (Manual) 20.9 % Monocytes % (Manual) 4.3 % Eosinophils % (Manual) 11.3 % Basophils % (Manual) 5.2 % Nucleated Red Blood Cells % 0.5 % Neutrophils # (Manual) 9.99 1.4-6.5 K/uL Total Absolute Neutrophils 9.99 1.4-6.5 K/uL Lymphocytes # (Manual) 3.58 1.2-3.4 K/uL Total Absolute Lymphocytes 3.58 1.2-3.4 K/uL Monocytes # (Manual) 0.74 0.11-0.59 K/uL Eosinophils # (Manual) 1.94 0-0.5 K/uL Basophils # (Manual) 0.89 0-0.2 K/uL Hypochromasia PRESENT Anisocytosis PRESENT Ovalocytes 1+ Prothrombin Time 11.4 9.0-12.0 SECONDS Prothromb Time International Ratio 1.1 0.9-1.1 Activated Partial Thromboplast Time 27.9 21.0-31.0 SECONDS Partial Thromboplastin Ratio 1.1 Sodium Level 144 136-145 mmol/L Potassium Level 4.3 3.5-5.1 mmol/L Chloride Level 108 98-107 mmol/L Carbon Dioxide Level 25 21-32 mmol/L Anion Gap 11.0 3-11 mmol/L Blood Urea Nitrogen 18 7-18 mg/dl Creatinine 1.00 0.60-1.20 mg/dl Est Creatinine Clear Calc Drug Dose 36.2 ml/min Estimated GFR () 64.3 Estimated GFR (Non- 55.5 BUN/Creatinine Ratio 18.2 10-20 Random Glucose 94 70-99 mg/dl Calcium Level 8.2 8.5-10.1 mg/dl Diagnostic Radiology CXR Per radiologist read: IMPRESSION: No acute cardiopulmonary findings. CT LEFT HIP Per radiologist read: IMPRESSION: No change in appearance of the left hip since exam of July 24, 2016 status post internal fixation of a femoral neck fracture with 3 cannulated screws. No acute fracture. Incomplete healing of the mildly displaced, impacted left femoral neck fracture without significant interval healing. No change in alignment. The findings could reflect incomplete union or subacute on chronic fracture. EKG NSR 87 BPM QTc 437, incomplete RBBB Impression Assessment and Plan 76 year old female with history of left hip fracture with failed ORIF presents to the ED with worsening hip pain following a fall 2 days ago INTRACTABLE LEFT HIP PAIN - KNOWN H/O LEFT HIP FRACTURE NONUNION, NOW WITH RECENT FALL -Admit to med/surg -CT left hip without new changes -Follows with Dr. Avendaño as outpatient was to have surgery on 09/30 but d/t myeloproliferative disorder and recent GI bleed this was postponed -Orthopedic consult placed - ED spoke with Dr. Zelaya -Pain control with po Dilaudid, and IV for breakthrough pain -Continue Fentanyl patch -Is very high risk for VTE - heme/onc consult placed -PT/OT eval -CBC, PRP, Mg MYELOPROLIFERATIVE DISORDER -Follows with Dr. 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 Chavez -Platelet count 1.4 million today -Very high risk for VTE -continues to smoke, cessation counseling given -Continue Plavix -Heme/onc consult placed COPD -recent pneumonia -CXR without consolidations -WBC count 17K -continue home inhalers H/O GI BLEED -Last EGD in 09/20 with nonbleeding duodenal ulcer -continue PPI -Hgb 10.5 -check Iron Studies -follow H&H ANEMIA -2/2 to acute blood loss anemia in setting of PUD -higher than recent baseline, no active bleeding per patient -HD stable, no need for transfusion -daily H/H as above DEPRESSION/INSOMNIA -continue Amitriptyline, Lyrica, Restoril TOBACCO ABUSE -Cessation counseling given H/O BREAST CA -s/p mastectomy in the DVT PROPHYLAXIS: high risk, Sq Lovenox CODE STATUS: FULL CODE per my discussion with the patient and her daughter DISPO:In my clinical judgment this beneficiary meets acute admission criteria, established by [facility], that includes being hospitalized through two midnights. Patient seen in collaboration with Dr. Cason ADDENDUM: I have seen and examined the patient and discussed the case with the provider above. I agree with the assessment and plan as stated. Her pain is relatively controlled at this time on Fentanyl and Dilaudid. Will consult Heme in setting of extreme thrombocytosis for assistance with antiplatelets/ anticoagulants around a surgery if that is needed. Ortho to eval tomorrow. Desiree Cason, (Hospitalist) Level of Care Med/Surg Resuscitation Status FULL RESUSCITATION VTE Prophylaxis VTE Risk Assessment Done? Y/N: Yes Risk Level: High Given or contraindicated: Enoxaparin (Lovenox)SQ, SCD's
[2016-10-16 20:49] VITALS: Ht 162.6 cm; Wt 46.5 kg
[2016-10-16 21:15] VITALS: BP 104/57; PULSE 83; TEMP 36.9; O2SAT 93
[2016-10-16] MEDS: GUAIFENESIN 600 MG TABCR PO SCH (22:39)
[2016-10-16] MEDS: FLUTICASONE/SALMETEROL 250/50 (ADVAIR) 14 PUFF/1 INHALER INH SCH (22:39)
[2016-10-16] MEDS: PANTOprazole SOD 40 MG TAB PO SCH (22:40)
[2016-10-16] MEDS: AMITRIPTYLINE HCL 25 MG TAB PO SCH (22:41)
[2016-10-16] MEDS: PREGABALIN 75 MG CAP PO SCH (22:44)
[2016-10-16] MEDS: TEMAZEPAM 15 MG CAP PO SCH (22:44)
[2016-10-16 23:20] VITALS: BP 93/57; PULSE 88; TEMP 36.7; O2SAT 93
[2016-10-17] MEDS: CHECK FENTANYL PATCH PLACEMENT SCH ×3 (00:28→15:27)
[2016-10-17] MEDS: HYDROmorphone INJ 1 MG/ML SYR IV PRN ×3 (00:30→06:08)
[2016-10-17] MEDS ORDERED: RIZATRIPTAN BENZOATE 10 MG TAB PO PRN (01:00)
[2016-10-17] MEDS: HYDROmorphone HCL 2 MG TAB PO PRN ×2 (04:33→17:45)
[2016-10-17 06:11] VITALS: BP 97/60; PULSE 81; O2SAT 91
[2016-10-17 07:33] LABS: MEAN CORPUSCULAR HGB CONC 31.3 g/dl (32-36)
[2016-10-17 07:34] LABS: HEMATOCRIT 30.4 % (37-47); MEAN CELL VOLUME 81.3 fL (80-100); MEAN CORPUSCULAR HEMOGLOBIN 25.4 pg (25-34); PLATELET COUNT 1218 K/uL (130-400); RED BLOOD COUNT 3.74 M/uL (4.2-5.4); WHITE BLOOD COUNT 15.77 K/uL (4.8-10.8)
[2016-10-17 07:43] LABS: CALCIUM 8.3 mg/dl (8.5-10.1); CREATININE 0.91 mg/dl (0.60-1.20); POTASSIUM 3.8 mmol/L (3.5-5.1)
[2016-10-17 07:47] LABS: FERRITIN 621.2 ng/ml (8.0-388.0)
[2016-10-17 07:54] LABS: ANISOCYTOSIS PRESENT; BASO ABS # 0.27 K/uL (0-0.2); BASOPHIL % 1.7 %; COMPLETE YES; EOSINOPHIL % 12.2 %; HYPOCHROMIA PRESENT; LARGE PLATELETS 2+; LYMPH ABS # 3.01 K/uL (1.2-3.4); LYMPHOCYTE % 19.1 %; NEUTROPHILS % 63.5 %; POIKILOCYTOSIS PRESENT; SCHISTOCYTES 1+
[2016-10-17 08:14] VITALS: BP 90/47; PULSE 82; TEMP 36.8; O2SAT 96
[2016-10-17] MEDS: FLUTICASONE/SALMETEROL 250/50 (ADVAIR) 14 PUFF/1 INHALER INH SCH ×2 (08:22→20:30)
[2016-10-17] MEDS: GUAIFENESIN 600 MG TABCR PO SCH ×2 (08:22→20:29)
[2016-10-17] MEDS: LORATADINE 10 MG TAB PO SCH (08:23)
[2016-10-17] MEDS: PANTOprazole SOD 40 MG TAB PO SCH ×2 (08:23→20:31)
[2016-10-17] MEDS ORDERED: CLOPIDOGREL BISULFATE 75 MG TAB PO SCH (09:00)
[2016-10-17] MEDS: ENOXAPARIN 40 MG/0.4 ML SYR SQ SCH (09:00)
--- NOTE | 2016-10-17 10:31 | Clinical Documentation Query ---
CLINICAL DOCUMENTATION QUERY 76-y/o female who had undergone ORIF of left femoral neck in March has a known nonunion of said repair since July 2016 presents to ED with left hip pain after a fall 2 day prior. Most recent Hip CT shows nothing new since July CT. In your clinical opinion is this patient being managed for: ( ) Left femoral neck nonunion fracture due to osteoporosis. ( ) Left femoral neck nonunion fracture due to failure of ORIF hardware. ( ) Other explanation of clinical findings (Please Explain) ( + ) Unable to determine (Please Define) -( NEED TO SEND THE QUERY TO ORTHO as not sure if non union is secondary to osteoporosis vs failure of hardware. ( ) Need to Discuss ( ) Not Agree The medical record reflects the following clinical findings, treatment, and risk factors. Clinical Indicators: As above. Treatment: Orthopedic consult, Fentanyl patch, Dilaudid Risk Factors: Age, sex, previous ORIF Please clarify and document your clinical opinion in the progress notes and discharge summary. Terms such as "probable", "suspected", "likely", "questionable", "possible", or "still to be ruled out" are acceptable. IF IN AGREEMENT, YOU MUST DOCUMENT ABOVE DIAGNOSTIC STATEMENT IN DAILY PROGRESS NOTES AND DISCHARGE SUMMARY. This document is not part of the patient's record. Thank You, Walt Alvarado RN [phone]
[2016-10-17 10:33] VITALS: O2SAT 96
--- NOTE | 2016-10-17 11:08 | CONSULTATION REPORT ---
DATE OF CONSULTATION: 10/17/2016 CHIEF COMPLAINT: Left hip pain. HISTORY OF PRESENT ILLNESS: Ms. Radn is a 76-year-old female who is well known to our practice. The patient has a history of COPD, thrombocytopenia, and GI bleed, who we have been seeing for failure of her left hip ORIF. The patient had a hip fracture in March and continued to have hip pain. 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 She was scheduled for total hip replacement in September, was canceled due to pneumonia. The patient had a fall at home this past Monday and has had worsening pain since that time, she is rating her pain an 8/10. She was admitted for intractable hip pain. We are now asked to see her for possible surgical intervention. PAST MEDICAL HISTORY: Anemia, history of breast cancer, peptic ulcer disease, myelodysplastic thrombocytopenia, history of GI bleed, and COPD. PAST SURGICAL HISTORY: ORIF left hip, cholecystectomy, hysterectomy, mastectomy. SOCIAL HISTORY: The patient is a current smoker. She denies alcohol use. She lives with family. She is retired. ALLERGIES: No known drug allergies. MEDICATIONS: Please see the chart. REVIEW OF SYSTEMS: See HPI. Ten other systems reviewed, all negative. PHYSICAL EXAMINATION: GENERAL: This is a pleasant thin female who is currently in no acute distress. HEENT: Normocephalic, atraumatic. Mucous membranes are moist and intact. NECK: Supple without lymphadenopathy. HEART: Regular rate and rhythm without murmurs, rubs or gallop. LUNGS: She does have coarse breath sounds with trace wheezes. HEART: Regular rate and rhythm. No murmurs, rubs, or gallops. ABDOMEN: Soft and nontender. Bowel sounds are equal and active. EXTREMITIES: No ecchymosis, redness or warmth. Thigh and calf are soft and nontender. She does have painful range of motion, range of motion is decreased. She is tender over the trochanter. She is neurovascularly intact with +4/5 strength. IMAGING: CT of the left hip shows no change since 07/24/2016. There is incomplete healing and a mildly displaced, impacted left femoral neck fracture. 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 PLAN: The patient is obviously in need of a left hip placement. The question is whether the patient is currently medically optimized for surgery. Her pneumonia seems to be resolved and her breathing appears to be at baseline. Her platelets on admission were high. Hematology has been consulted for recommendations. The patient was taking her Plavix, her last dose was 10/16/2016. We will make the patient n.p.o. after midnight pending medical clearance and optimization for left hip replacement. MTDD
--- NOTE | 2016-10-17 12:32 | Progress Note ---
Internal Med Progress Note Date of Service: Oct 17, 2016. Provider Documentation: SUBJECTIVE: Patient is c/o pain not controlled well. No chest pain, sob, cough, fever, chills, nausea, vomiting, abdominal pain, diarrhea. OBJECTIVE: Vital Signs-as noted below Exam: General-AAOX3, malnourished + Not in distress Neck-Supple, NO JVD Lungs-AEBE, no wheezing , rhonchi Heart-S1,S2 normal, no murmurs Extremities-No edema, Tenderness - Left hip ; ROM + Lab data as noted below. ASSESSMENT & PLAN: Assessment and Plan : 76 year old female with history of left hip fracture with failed ORIF presents to the ED with worsening hip pain following a fall 2 days ago INTRACTABLE LEFT HIP PAIN - KNOWN H/O LEFT HIP FRACTURE NONUNION, NOW WITH RECENT FALL -CT left hip without new changes -Follows with Dr. Avendaño as outpatient was to have surgery on 09/30 but d/t pneumonia and recent GI bleed this was postponed -Pain control with po Dilaudid q 6hours PRN,IV Dilaudid 0.5 mg q 1 hour prn, Fentanyl patch 50 mcg, Tramadol 50-100 mg PRN. BP borderline low, so using narcotics cautiously -Is very high risk for VTE - Continue with lovenox daily; heme/onc consult placed -PT/OT evaluation HX OF LEFT HIP FRACTURE NON UNION: -Discussed with ortho- plan is for IKER eventually. Had to post pone it due to pneumonia in september -Received Plavix yesterday, so unable to operate in next 3-4 days. -Pre op evaluation; CXR- no acute abnormalities, EKG- Incomplete RBBB, no significant change compared to prior EKG. Does have hx of Thrombocythemia for which she follows up with Dr Mainor Chavez,. Will evaluation patient today. -Plan is to control pain and eventually go for surgery MYELOPROLIFERATIVE DISORDER -Follows with Dr. 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 Chavez -Platelet count 1.4 million today -Very high risk for VTE- continue with lovenox daily for prophylaxis -continues to smoke, cessation counseling given -Heme/onc consult placed COPD -recent pneumonia -CXR without consolidations -continue home inhalers H/O GI BLEED -Last EGD in 09/20 with nonbleeding duodenal ulcer -continue PPI -Hgb 10.5 - Iron Studies - negative for iron deficiency anemia -follow H&H ANEMIA -2/2 to acute blood loss anemia in setting of PUD -higher than recent baseline, no active bleeding per patient -HD stable, no need for transfusion -daily H/H as above; Iron studies- neg for iron deficiency anemia VITAMIN D DEFICIENCY Vit D levels 9.1 -Will replace with Vit D 28868 units q week x 6 weeks followed by 1000 units daily -Need to monitor outpatient DEPRESSION/INSOMNIA -continue Amitriptyline, Lyrica, Restoril TOBACCO ABUSE -Cessation counseling given H/O BREAST CA -s/p mastectomy in the DVT PROPHYLAXIS: high risk, Sq Lovenox CODE STATUS: FULL CODE per my discussion with the patient and her daughter DISPO:I To be determined Needs surgery IKER . Meanwhile, goal is pain control Lives with her daughter at home PT/OT ordered Vital Signs: Date Time Temp Pulse Resp B/P Pulse Ox O2 Delivery O2 Flow Rate FiO2 10/17/16 10:33 96 Room Air 10/17/16 08:25 Room Air 10/17/16 08:14 36.8 82 15 90/47 96 Room Air 10/17/16 06:11 81 97/60 91 Room Air 10/17/16 00:10 Room Air 10/16/16 23:20 36.7 88 16 93/57 93 Room Air 10/16/16 21:15 36.9 83 16 104/57 93 Room Air 10/16/16 21:05 80 20 110/68 92 10/16/16 20:49 Room Air 10/16/16 19:59 84 20 109/60 92 Room Air 10/16/16 17:53 87 20 103/53 93 Room Air 10/16/16 16:22 36.8 89 20 108/61 97 Room Air Lab Results: Results Past 24 Hours Test 10/16/16 16:55 10/17/16 06:20 Range/Units White Blood Count 17.14 15.77 4.8-10.8 K/uL Red Blood Count 4.19 3.74 4.2-5.4 M/uL Hemoglobin 10.5 9.5 12.0-16.0 g/dL Hematocrit 33.7 30.4 37-47 % Mean Corpuscular Volume 80.4 81.3 80-100 fL Mean Corpuscular Hemoglobin 25.1 25.4 25-34 pg Mean Corpuscular Hemoglobin Concent 31.2 31.3 32-36 g/dl Platelet Count 1417 1218 130-400 K/uL Mean Platelet Volume 11.2 11.0 7.4-10.4 fL RDW Standard Deviation 93.7 91.9 36.4-46.3 fL RDW Coefficient of Variation 31.7 31.5 11.5-14.5 % Nucleated RBC Absolute Count (auto) 0.08 0-0 K/uL Neutrophils % (Manual) 58.3 63.5 % Lymphocytes % (Manual) 20.9 19.1 % Monocytes % (Manual) 4.3 3.5 % Eosinophils % (Manual) 11.3 12.2 % Basophils % (Manual) 5.2 1.7 % Nucleated Red Blood Cells % 0.5 % Neutrophils # (Manual) 9.99 10.01 1.4-6.5 K/uL Total Absolute Neutrophils 9.99 10.01 1.4-6.5 K/uL Lymphocytes # (Manual) 3.58 3.01 1.2-3.4 K/uL Total Absolute Lymphocytes 3.58 3.01 1.2-3.4 K/uL Monocytes # (Manual) 0.74 0.55 0.11-0.59 K/uL Eosinophils # (Manual) 1.94 1.92 0-0.5 K/uL Basophils # (Manual) 0.89 0.27 0-0.2 K/uL Hypochromasia PRESENT PRESENT Anisocytosis PRESENT PRESENT Ovalocytes 1+ Prothrombin Time 11.4 9.0-12.0 SECONDS Prothromb Time International Ratio 1.1 0.9-1.1 Activated Partial Thromboplast Time 27.9 21.0-31.0 SECONDS Partial Thromboplastin Ratio 1.1 Sodium Level 144 144 136-145 mmol/L Potassium Level 4.3 3.8 3.5-5.1 mmol/L Chloride Level 108 108 98-107 mmol/L Carbon Dioxide Level 25 26 21-32 mmol/L Anion Gap 11.0 10.0 3-11 mmol/L Blood Urea Nitrogen 18 17 7-18 mg/dl Creatinine 1.00 0.91 0.60-1.20 mg/dl Est Creatinine Clear Calc Drug Dose 36.2 39.8 ml/min Estimated GFR () 64.3 72.0 Estimated GFR (Non- 55.5 62.2 BUN/Creatinine Ratio 18.2 19.0 10-20 Random Glucose 94 81 70-99 mg/dl Calcium Level 8.2 8.3 8.5-10.1 mg/dl Large Platelets 2+ Poikilocytosis PRESENT Schistocytes 1+ Iron Level 75 35-150 mcg/dl Total Iron Binding Capacity 196 250-450 mcg/dl Ferritin 621.2 8.0-388.0 ng/ml 25-Hydroxy Vitamin D Total 9.1 30-100 ng/ml
--- NOTE | 2016-10-17 12:52 | Progress Note ---
Progress Note ADDENDUM: Discussed with Ortho - they do plan to take her to OR tomorrow for IKER given her uncontrolled pain. Received Plavix yesterday but given the uncontrolled pain, ortho has decided to go for surgery tomorrow. PRE OPERATIVE EVALUATION Patient denies any cardiopulmonary complaints. Recovered from pneumonia and no signs of active infection at this time. CXR- no pneumonia or active disease. Examination done- Malnourished, No murmurs, No signs of CHF, COPD exacerbations Risk factors: COPD, Myeloproliferative disorder/ Essential Thrombocythemia, CKD- III. No hx of CHF, DM, Hypertension, stroke, CA Labs- Hb 9.5, Platelets 1218, WBC down from 17k to 15 k with no signs of active infection Imaging - CXR - no acute findings EKG- No acute ischemic changes, Incomplete RBBB Ok to go for surgery with moderate cardio - pulmonary risks pending clearance from Hem/Onc. Higher risk of bleeding as received plavix yesterday, ortho aware as mentioned above. Will need DVT prophylaxis with Lovenox SQ post operatively as very high risk with platelets > [address] Mainor Chavez who will evaluate patient today. Discussed with ortho.
[2016-10-17] MEDS: TRAMADOL HCL 50 MG TAB PO PRN ×2 (12:59→20:40)
[2016-10-17 14:57] VITALS: BP 103/63; PULSE 82; TEMP 37.2; O2SAT 91
--- NOTE | 2016-10-17 15:48 | Medical Consult ---
Consultation Date of Consultation: Oct 17, 2016. Attending Physician: Soumya Chavez.Loy Reason for Consultation: Essential thrombocythemia with PLT count 1.4 million on admission for left hip pain s/p fall, high risk for VTE. History of Present Illness Mrs. Rand is a 76 year old female with PMH of COPD, MDS/essential thrombocythemia, PUD (GI bleed 07/2016, required 3 units PRBC) who came to the ED due to increased hip pain following a fall 2 days ago. She fractured left hip in March 2016 and is s/p ORIF, which has been complicated by nonunion of the hip fracture. She was to have surgery with Dr. Avendaño in September 2016 but this was not able to be done due to pneumonia for which she has had a couple of rounds of azithromycin with improvement of symptoms. Hematologic history: She was seen at [facility] (Dr. Waddell), had a bone marrow examination, and diagnosed 2 years ago and treated starting with Anagrelide for about 3 months but as per the patient did not change her platelet count, she was then enrolled in clinical trial where she received interferon therapy but she could not tolerate that treatment quite well, also received hydroxyurea, but she could not tolerate hydroxyurea due to GI and generalized paresthesia symptom. She more recently was placed on Hydrea [address] Chavez, but she took 1 day of therapy and had similar GI and generalized paresthesia side effect that she experienced prior, so she stopped the medication. She has not had MN or CVA. 2 days ago, when she went to sit on the wheel chair she slid off the chair and hit the floor. Her left hip pain became uncontrolled after this point, despite Fentanyl and Dilaudid. Additional history obtained from the patient at bedside. She reported to the emergency room yesterday after 2 days of uncontrolled pain after falling to the floor while trying to sit back and her wheelchair. She states that she was instructed by her orthopedist to be mostly nonweightbearing with her current situation of the left hip. As noted above, she was scheduled to have surgery with Dr. avendaño last month, but this had to be delayed due to pneumonia requiring 2 rounds of his other mycin. She states her breathing symptoms are back to baseline as she has COPD; she has a chronic cough productive of white sputum, but no dyspnea. She has not had chest pain, headache, focal weakness of her extremities, calf pain. She reports a good appetite and has not had nausea, vomiting, bowel issues or any further blood in the bowel. She denies any bleeding from any site. Past Medical/Surgical History Medical Problems: (1) History of hip fracture Status: Acute (2) History of pneumonia Status: Acute (3) Intractable pain Status: Acute (4) Myelodysplasia (myelodysplastic syndrome) Status: Acute (5) Peptic ulcer disease Status: Acute (6) Pneumonia Status: Acute Social History Problems: (1) History of repair of left hip joint Status: Acute Family History Colon cancer FATHER Social History Smoking Status: Current Every Day Smoker Drug Use: none Marital Status: Housing Status: lives with family Occupation Status: retired Allergies Coded Allergies: Lobster (Verified Allergy, Severe, HIVES, 10/14/16) Latex1 -Allergic Contact Dermititis (Verified Allergy, Unknown, HIVES, 06/20) NO KNOWN DRUG ALLERGIES (Verified Allergy, Unknown, ., 10/14/16) Uncoded Allergies: METALS (Allergy, Unknown, HIVES/ITCHINESS, 09/22/16) PATIENT REPORTS ANY METALS UNDER 14 KT GOLD CAUSES HER TO BECOME ITCHY AND GET HIVES Home Medications Current Inpatient Medications Current Inpatient Medications Medications (Trade) Dose Ordered Sig/Pradip Route Start Time Stop Time Status Last Admin Dose Admin Acetaminophen (Tylenol Tab) 650 mg Q4H PRN PO 10/16/16 19:30 11/15/16 19:29 Polyethylene (Miralax Powder Packet) 17 gm DAILY PRN PO 10/16/16 19:30 11/15/16 19:29 Ondansetron HCl (Zofran Inj) 4 mg Q6H PRN IV 10/16/16 19:30 11/15/16 19:29 Hydromorphone HCl (Dilaudid Tab) 2 mg Q6H PRN PO 10/16/16 19:30 10/30/16 19:29 10/17/16 04:33 2 MG Hydromorphone HCl (Dilaudid Inj) 0.5 mg Q1H PRN IV 10/16/16 19:30 10/30/16 19:29 10/17/16 06:08 0.5 MG Albuterol (Ventolin Hfa Inhaler) 2 puffs Q6H PRN INH 10/16/16 19:45 11/15/16 19:44 10/17/16 02:05 2 PUFFS Amitriptyline HCl (Elavil Tab) 75 mg HS PO 10/16/16 21:00 11/15/16 20:59 10/16/16 22:41 75 MG Clopidogrel Bisulfate (plAVix TAB) 75 mg QAM PO 10/17/16 09:00 11/16/16 08:59 Fentanyl (Duragesic Patch) 50 mcg Q72H TD 10/18/16 09:00 11/01/16 08:59 Salmeterol Xinafoate/ Fluticasone (Advair Diskus 250/50 Inh) 1 puff BID INH 10/16/16 21:00 11/15/16 20:59 10/16/16 22:39 1 PUFF Pantoprazole Sodium (Protonix Tab) 40 mg BID PO 10/16/16 21:00 11/15/16 20:59 10/16/16 22:40 40 MG Pregabalin (Lyrica Cap) 75 mg HS PO 10/16/16 21:00 11/15/16 20:59 10/16/16 22:44 75 MG Temazepam (Restoril Cap) 30 mg HS PO 10/16/16 21:00 11/15/16 20:59 10/16/16 22:44 30 MG Enoxaparin Sodium (Lovenox Inj) 40 mg QAM SQ 10/17/16 09:00 11/16/16 08:59 Guaifenesin (Mucinex Contr Rel Tab) 600 mg Q12H PO 10/16/16 20:00 11/15/16 19:59 10/16/16 22:39 600 MG Loratadine (Claritin Tab) 10 mg DAILY PO 10/17/16 09:00 11/16/16 08:59 Miscellaneous (Fentanyl Patch Remove & Waste) 1 ea Q3D@0859 N/A 10/18/16 08:59 11/17/16 08:58 Miscellaneous Information (Check Fentanyl Patch Placement) 1 ea QS N/A 10/17/16 00:00 11/16/16 00:00 10/17/16 00:28 1 EA Rizatriptan Benzoate (Maxalt Tab) 10 mg PRN PRN PO 10/17/16 01:00 11/16/16 00:59 10/17/16 02:24 10 MG Review of Systems Constitutional: No chills, No fever, No sweats Respiratory: + cough (related to COPD), + sputum (related to COPD), No shortness of breath, No wheezing Cardiovascular: No chest pain, No edema Abdomen: No GI bleeding, No constipation, No diarrhea, No nausea, No pain, No vomiting Musculoskeletal: + joint pain (left hip pain- see HPI), No calf pain Genitourinary - Female: No hematuria Hematologic / Lymphatic: + problem reported (+ has essential thrombocythemia), No abnormal bleeding/bruising, No clotting problems Physical Exam Date Time Temp Pulse Resp B/P Pulse Ox O2 Delivery O2 Flow Rate FiO2 10/17/16 06:11 81 97/60 91 Room Air 10/17/16 00:10 Room Air 10/16/16 23:20 36.7 88 16 93/57 93 Room Air 10/16/16 21:15 36.9 83 16 104/57 93 Room Air 10/16/16 21:05 80 20 110/68 92 10/16/16 20:49 Room Air 10/16/16 19:59 84 20 109/60 92 Room Air 10/16/16 17:53 87 20 103/53 93 Room Air 10/16/16 16:22 36.8 89 20 108/61 97 Room Air General Appearance: no apparent distress, + thin, + pertinent finding (appears older than stated age) ENT: hearing grossly normal Respiratory/Chest: lungs clear, no respiratory distress, no accessory muscle use Cardiovascular: regular rate, rhythm, no edema Abdomen/GI: normal bowel sounds, non tender Extremities/Musculoskelatal: no calf tenderness (SCDs in place), no pedal edema Neurologic/Psych: alert, normal mood/affect, oriented x 3 Skin: warm/dry, no rash Laboratory Results 10/16/16 16:55 Red Blood Count 4.19, Mean Corpuscular Volume 80.4, Mean Corpuscular Hemoglobin 25.1, Mean Corpuscular Hemoglobin Concent 31.2, Mean Platelet Volume 11.2 10/17/16 06:20 Red Blood Count 3.74, Mean Corpuscular Volume 81.3, Mean Corpuscular Hemoglobin 25.4, Mean Corpuscular Hemoglobin Concent 31.3, Mean Platelet Volume 11.0 10/16/16 16:55 10/17/16 06:20 Test 10/16/16 16:55 10/17/16 06:20 White Blood Count 17.14 K/uL (4.8-10.8) 15.77 K/uL (4.8-10.8) Red Blood Count 4.19 M/uL (4.2-5.4) 3.74 M/uL (4.2-5.4) Hemoglobin 10.5 g/dL (12.0-16.0) 9.5 g/dL (12.0-16.0) Hematocrit 33.7 % (37-47) 30.4 % (37-47) Mean Corpuscular Volume 80.4 fL (80-100) 81.3 fL (80-100) Mean Corpuscular Hemoglobin 25.1 pg (25-34) 25.4 pg (25-34) Mean Corpuscular Hemoglobin Concent 31.2 g/dl (32-36) 31.3 g/dl (32-36) Platelet Count 1417 K/uL (130-400) 1218 K/uL (130-400) Mean Platelet Volume 11.2 fL (7.4-10.4) 11.0 fL (7.4-10.4) RDW Standard Deviation 93.7 fL (36.4-46.3) 91.9 fL (36.4-46.3) RDW Coefficient of Variation 31.7 % (11.5-14.5) 31.5 % (11.5-14.5) Nucleated RBC Absolute Count (auto) 0.08 K/uL (0-0) Neutrophils % (Manual) 58.3 % 63.5 % Lymphocytes % (Manual) 20.9 % 19.1 % Monocytes % (Manual) 4.3 % 3.5 % Eosinophils % (Manual) 11.3 % 12.2 % Basophils % (Manual) 5.2 % 1.7 % Nucleated Red Blood Cells % 0.5 % Neutrophils # (Manual) 9.99 K/uL (1.4-6.5) 10.01 K/uL (1.4-6.5) Total Absolute Neutrophils 9.99 K/uL (1.4-6.5) 10.01 K/uL (1.4-6.5) Lymphocytes # (Manual) 3.58 K/uL (1.2-3.4) 3.01 K/uL (1.2-3.4) Total Absolute Lymphocytes 3.58 K/uL (1.2-3.4) 3.01 K/uL (1.2-3.4) Monocytes # (Manual) 0.74 K/uL (0.11-0.59) 0.55 K/uL (0.11-0.59) Eosinophils # (Manual) 1.94 K/uL (0-0.5) 1.92 K/uL (0-0.5) Basophils # (Manual) 0.89 K/uL (0-0.2) 0.27 K/uL (0-0.2) Hypochromasia PRESENT PRESENT Anisocytosis PRESENT PRESENT Ovalocytes 1+ Prothrombin Time 11.4 SECONDS (9.0-12.0) Prothromb Time International Ratio 1.1 (0.9-1.1) Activated Partial Thromboplast Time 27.9 SECONDS (21.0-31.0) Partial Thromboplastin Ratio 1.1 Anion Gap 11.0 mmol/L (3-11) 10.0 mmol/L (3-11) Est Creatinine Clear Calc Drug Dose 36.2 ml/min 39.8 ml/min Estimated GFR () 64.3 72.0 Estimated GFR (Non- 55.5 62.2 BUN/Creatinine Ratio 18.2 (10-20) 19.0 (10-20) Calcium Level 8.2 mg/dl (8.5-10.1) 8.3 mg/dl (8.5-10.1) Large Platelets 2+ Poikilocytosis PRESENT Schistocytes 1+ Iron Level 75 mcg/dl (35-150) Total Iron Binding Capacity 196 mcg/dl (250-450) Ferritin 621.2 ng/ml (8.0-388.0) Chest x-ray from 10/16/2016: No pneumothorax or pleural effusion. No consolidation to suggest pneumonia. No acute cardiopulmonary findings. Left hip CT from 10/16/2016: 3 cannulated screws fixing left femoral neck fracture again noted. Postoperative appearance is unchanged since July 2016. Fracture subcapital in location. The fracture is impacted a mildly displaced. Several screws may be retracted. No acute fractures identified. Findings could reflect incomplete union or subacute on chronic fracture. Assessment & Plan (1) Essential thrombocythemia Assessment & Plan: Patient has had ET diagnosis for past 2-3 years. She was previously treated with anagrelide, which per the patient did not decrease her PLT count. She then was trialed on interferon and Hydrea, both with poor tolerability. Hematology service established care with the patient back in 2015 when she was admitted for GI bleed. She has since followed up with our office and Dr. Chavez tried to place patient back on Hydrea 500 mg daily, but she took 1 tablet and felt generalized paresthesias so she discontinued the medication (this apparently occurred previously with Hydrea). Discussed with Dr. Chavez about restarting patient on anagrelide for PLT, but called the hospital inpatient pharmacy and this is not on formulary. I discussed with the patient about restarting Hydrea as she only tried medication for brief period of time both times she was on medication; she states she is willing to restart Hydrea after her surgical procedure tomorrow. Will monitor patient and counts after procedure, may try to initiate within a few days of surgery. Patient is currently on Lovenox 40 mg daily SQ for VTE prophylaxis; defer to surgery about stopping/restarting Lovenox after surgery. Can continue SCDs. Recommend continuing anticoagulation for 4 weeks after procedure due to risks of essential thrombocythemia and PLT > 1 million, recent surgery, and expected immobility after surgery. (2) History of hip fracture Status: Acute Assessment & Plan: Per surgery, planning to take patient to OR tomorrow for revision THR. (3) Intractable pain Status: Acute Assessment & Plan: Patient currently on fentanyl 50 mcg q 72 hrs , dilaudid 2 mg PO every 6 hrs PRN, dilaudid 0.5 mg IV every 1 hr PRN, tramadol 50 mg 1-2 tabs every 4-6 hrs PRN. Per ortho and hospitalist teams. (4) Anemia Status: Chronic Assessment & Plan: Improved to around 10 g/dL Hgb range as recent as 08/2016 and on admission at 10.5. Had GI bleed back in 07/2016. Also, has MDS/MPN and requires periodic blood transfusion support. Has no GI bleeding symptoms at this time, monitor closely while on Lovenox. After surgery, will likely exacerbate from blood loss. Transfuse if Hgb < 7 g/ dL or symptomatic anemia. I performed history and physical examination of the patient. I have discussed the patient's case, impression and plan with Bridgette Mendoza PA-C. Her note reflects my findings and plan. She is a 76-year-old female, a case of essential thrombocythemia/ myelodysplastic syndrome, earlier she was treated at [facility], could not tolerate interferon therapy, she had received and clear as well as hydroxyurea therapy, as per the patient she did not respond quite well with those medications and also had some side effects and so presently she is not on an specific treatment for underlying essential thrombocythemia, platelet count has increased to around 1.4 million, no thrombotic complications in the past. She is going for hip replacement surgery, she is at a high risk for thrombotic complications with the significantly high platelet count and I would recommend Lovenox prophylaxis I would consider for about 4 weeks of Lovenox at this time, will re-evaluate at that time and decide whether she needs additional Lovenox prophylaxis at that time or not. Also spoke with her regarding restarting hydroxyurea at a smaller dose perhaps 500 mg every other day and she agrees for that. Will start hydroxyurea after the surgery is done. Will follow up. Mainor Chavez MD Hematology/Oncology
--- NOTE | 2016-10-17 17:16 | Progress Note ---
Progress Note Patient is a 76 year old F scheduled for L IKER on 10/[address] Avendaño. Medical history is complicated by stable moderate COPD, CKD, Recent Hx of GI Bleed, and chronic anemia. She has a myeloproliferative disorder which is responsible for her blood dyscrasia causing anemia with Hb chronically 8-10 and Platelets >1000. For this she is on Plavix, and she denies ever having a clot in the past. Her last Plavix dose was 10/16. She was scheduled for IKER in September of 2016 but this procedure was cancelled for a pneumonia. She says she feels much better since that time. If this case cannot be delayed for 7 days off Plavix, then she can certainly move forward with moderate cardiopulmonary risk. I discussed the small possibility of both transfusion and post op ventilation requirements. Consent for general anesthesia was obtained.
[2016-10-17] MEDS: NICOTINE 14 MG/24 HR TDSY TD SCH (17:38)
[2016-10-17 19:30] VITALS: O2SAT 91
[2016-10-17] MEDS: AMITRIPTYLINE HCL 25 MG TAB PO SCH (20:30)
[2016-10-17] MEDS: TEMAZEPAM 15 MG CAP PO SCH (20:31)
[2016-10-17] MEDS: PREGABALIN 75 MG CAP PO SCH (20:31)
[2016-10-17 22:50] VITALS: BP 96/61; PULSE 81; TEMP 36.8; O2SAT 92
[2016-10-18] VITALS (8 sets, daily range): BP systolic 85–109; BP diastolic 49–62; PULSE 75–98; TEMP 36–37; O2SAT 91–100
--- NOTE | 2016-10-18 04:54 | Clinical Documentation Query ---
CLINICAL DOCUMENTATION QUERY 76-y/o female who had undergone ORIF of left femoral neck in March has a known nonunion of said repair since July 2016 presents to ED with left hip pain after a fall 2 day prior. Most recent Hip CT shows nothing new since July CT. In your clinical opinion is this patient being managed for: (x ) Left femoral neck nonunion fracture due to osteoporosis. ( ) Left femoral neck nonunion fracture due to failure of ORIF hardware. ( ) Other explanation of clinical findings (Please Explain) ( ) Unable to determine (Please Define) ( ) Need to Discuss ( ) Not Agree The medical record reflects the following clinical findings, treatment, and risk factors. Clinical Indicators: As above. Treatment: Orthopedic consult, Fentanyl patch, Dilaudid Risk Factors: Age, sex, previous ORIF Please clarify and document your clinical opinion in the progress notes and discharge summary. Terms such as "probable", "suspected", "likely", "questionable", "possible", or "still to be ruled out" are acceptable. IF IN AGREEMENT, YOU MUST DOCUMENT ABOVE DIAGNOSTIC STATEMENT IN DAILY PROGRESS NOTES AND DISCHARGE SUMMARY. This document is not part of the patient's record. Thank You, Walt Alvarado, RN [phone]
[2016-10-18] MEDS: HYDROmorphone INJ 1 MG/ML SYR IV PRN (05:56)
[2016-10-18] MEDS ORDERED: CEFAZOLIN 2000 MG/60 ML D5W 60 ML IV SCH (06:00)
[2016-10-18] MEDS ORDERED: POLYMYXIN B SULFATE 100,000 UNITS in NSS 100ML IR SCH (06:00)
[2016-10-18] MEDS ORDERED: VANCOMYCIN INJ 400 MG in NSS 100ML IR SCH (06:00)
[2016-10-18] MEDS ORDERED: ROPIVACAINE 5MG/ML 30 ML 150 MG, BUPIVACAINE/EPINEPHR 0.5% MPF 30 ML, KETOROLAC TROMETH... INFIL SCH ×7 (06:00)
--- NOTE | 2016-10-18 07:47 | History & Physical Bridge Note ---
H&P Re-Evaluation Bridge Note: I have examined the patient, reviewed the History & Physical and in the interval since the performance of the History & Physical I have noted the following changes of clinical significance: No changes noted
[2016-10-18 07:51] LABS: HEMATOCRIT 29.4 % (37-47); MEAN CELL VOLUME 81.2 fL (80-100); MEAN CORPUSCULAR HEMOGLOBIN 25.4 pg (25-34); MEAN CORPUSCULAR HGB CONC 31.3 g/dl (32-36); MEAN PLATELET VOLUME 10.5 fL (7.4-10.4); PLATELET COUNT 1269 K/uL (130-400); RED BLOOD COUNT 3.62 M/uL (4.2-5.4)
[2016-10-18] MEDS: CHECK FENTANYL PATCH PLACEMENT SCH ×3 (08:11→15:05)
[2016-10-18] MEDS: LORATADINE 10 MG TAB PO SCH (08:12)
[2016-10-18] MEDS: GUAIFENESIN 600 MG TABCR PO SCH ×2 (08:12→22:11)
[2016-10-18] MEDS: FLUTICASONE/SALMETEROL 250/50 (ADVAIR) 14 PUFF/1 INHALER INH SCH ×2 (08:13→22:12)
[2016-10-18] MEDS: PANTOprazole SOD 40 MG TAB PO SCH ×2 (08:13→22:16)
[2016-10-18] MEDS: NICOTINE 14 MG/24 HR TDSY TD SCH (08:13)
[2016-10-18 08:15] LABS: BUN/CREATININE RATIO 17.4 (10-20); CREATININE 0.78 mg/dl (0.60-1.20); POTASSIUM 4.2 mmol/L (3.5-5.1)
[2016-10-18] MEDS: HYDROmorphone HCL 2 MG TAB PO PRN ×2 (08:15→13:45)
[2016-10-18 08:18] LABS: ANISOCYTOSIS PRESENT; BASOPHIL % 5.2 %; COMPLETE YES; EOSINOPHIL % 9.6 %; HYPOCHROMIA PRESENT; LYMPH ABS # 1.87 K/uL (1.2-3.4); LYMPHOCYTE % 12.2 %; NEUTROPHILS % 70.4 %; OVALOCYTES 1+
[2016-10-18] MEDS ORDERED: FENTANYL PATCH REMOVE & WASTE SCH (08:59)
[2016-10-18] MEDS: ENOXAPARIN 40 MG/0.4 ML SYR SQ SCH (09:00)
[2016-10-18] MEDS ORDERED: FENTANYL 50 MCG/HR TDSY TD SCH (09:00)
[2016-10-18] MEDS ORDERED: NURSING VERBAL MED ORDER ONE (09:30)
[2016-10-18] MEDS: TRAMADOL HCL 50 MG TAB PO PRN (10:32)
[2016-10-18] MEDS ORDERED: FENTANYL CITRATE INJ 50 MCG/1 ML 2 ML VIAL ONE (14:10)
[2016-10-18] MEDS ORDERED: MIDAZOLAM HCL 1 MG/ML 2ML VIAL ONE (14:10)
[2016-10-18] MEDS: ACETAMINOPHEN 325 MG TAB PO PRN (14:14)
[2016-10-18] MEDS ORDERED: BUPIVACAINE 0.5 % 5 MG/1 ML PF 10ML VIAL ONE (15:11)
[2016-10-18] MEDS ORDERED: NALOXONE HCL 0.4 MG/1 ML VIAL/CARP IV PRN (15:15)
[2016-10-18] MEDS ORDERED: FLUMAZENIL 0.1 MG/1 ML 10 ML VIAL IV PRN (15:15)
[2016-10-18] MEDS ORDERED: EpHEDrine SULFATE INJ 50 MG/ML AMP IV PRN (15:15)
[2016-10-18] MEDS ORDERED: HYDROmorphone INJ 1 MG/ML SYR IV PRN (15:15)
[2016-10-18] MEDS ORDERED: MEPERIDINE HCL 25 MG/ML CARP IV PRN (15:15)
[2016-10-18] MEDS ORDERED: ONDANSETRON INJ 2 MG/ML 2 ML VIAL IV PRN ×2 (15:15→18:15)
[2016-10-18] MEDS ORDERED: PHENYLEPHRINE 100MCG/ML 5ML SYR IV PRN (15:15)
[2016-10-18] MEDS ORDERED: ATROPINE SULFATE 0.1 MG/ML 5ML SYR IV PRN (15:15)
[2016-10-18] MEDS ORDERED: LABETALOL HCL IV 5 MG/ML 20ML IV PRN (15:15)
[2016-10-18] MEDS ORDERED: MoRPHine SULFATE 10 MG/ML CARP/VIAL IV PRN (15:15)
[2016-10-18] MEDS ORDERED: ALBUT/IPRATROP 3MG/0.5MG NEB 3 ML VIAL ONE (15:23)
[2016-10-18] MEDS ORDERED: NEOSTIGMINE METHYLSULFATE 5 MG/5 ML SYR ONE (15:24)
[2016-10-18] MEDS ORDERED: GLYCOPYRROLATE INJ 0.2 MG/ML VIAL ONE (15:24)
[2016-10-18] MEDS ORDERED: DEXAMETHASONE SOD INJ 4 MG/ML VIAL ONE (15:24)
[2016-10-18] MEDS ORDERED: ONDANSETRON INJ 2 MG/ML 2 ML VIAL ONE (15:24)
[2016-10-18] MEDS ORDERED: LIDOCAINE HCL 2% 2 ML VIAL (20MG/ML) ONE (15:24)
[2016-10-18] MEDS ORDERED: ROCURONIUM BROMIDE 10 MG/ML 5 ML VIAL ONE ×2 (15:24→17:01)
[2016-10-18] MEDS ORDERED: PROPOFOL IV EMULSION 10 MG/ML 20 ML VIAL IV ONE (15:24)
[2016-10-18] MEDS ORDERED: POVIDONE-IODINE OP SOLN 30 ML BTL ONE (15:50)
[2016-10-18] MEDS ORDERED: BACITRACIN 50000 UNIT VIAL ONE (15:50)
--- NOTE | 2016-10-18 16:09 | Progress Note ---
Internal Med Progress Note Date of Service: Oct 18, 2016. Provider Documentation: SUBJECTIVE: Patient is seen and examined at bedside. Patient had Left total left hip arthroplasty today. Denies any chest pain, SOB, dizziness, Left leg pain post OP. Family at bedside. OBJECTIVE: Vital Signs-as noted below Physical Exam: General Appearance:Thin, fragile, no apparent distress Head: normocephalic, Atraumatic Eyes: normal inspection, EOMI, PERRLA, Anicteric Neck: supple, no JVD, Trachea midline Respiratory/Chest: Normal breath sounds, CTA, No accessory muscle use Cardiovascular: S1, S2, NSR, No murmur Abdomen/GI:Soft, Non tender, Bowel sounds present Extremities/Musculoskelatal:normal inspection, Left LE in surgical Bandage, + drain Neurologic/Psych:AAOX3, grossly no focal neurological deficits Skin: normal color, warm Lab data as noted below. ASSESSMENT & PLAN: Patient is a 76 yr old female with history of left hip fracture who failed ORIF presents to the ED with worsening hip pain following a fall 2 days ago INTRACTABLE LEFT HIP PAIN - KNOWN H/O LEFT HIP FRACTURE NONUNION, NOW WITH RECENT FALL CT left hip:Incomplete healing of the mildly displaced, impacted left femoral neck fracture without significant interval healing Follows with Dr. Avendaño as outpatient was to have surgery on 09/30 but d/t pneumonia and recent GI bleed this was postponed Left IKER on 10/18/16 S/P Left total left hip arthroplasty: Post OP # 0 Pain control. BP borderline low, so use narcotics cautiously Patient is very high risk for VTE - Continue with lovenox daily post OP Heme/onc input appreciated PT/OT evaluation Orthopaedics on board HX OF LEFT HIP FRACTURE NON UNION: S/P Left IKER ON 10/18/16 Plavix on hold H/O Essential Thrombocythemia: follows up with Dr Mainor Chavez: Needs Lovenox for 4 weeks post OP MYELODYSPLASTIC SYNDROME Follows with Dr. Mainor Chavez Likely Essential Thrombocythemia per Dr. Chavez Platelet count: 1269 Very high risk for VTE- continue with lovenox daily for prophylaxis for 4 weeks Patient continues to smoke, cessation counseling Heme/onc on board H/O Intolerance to Interferon therapy Plan to restarting hydroxyurea: 500 mg every other day after the surgery Needs Out patient FU with heme/onch COPD recent pneumonia CXR without consolidations continue home inhalers H/O GI BLEED Last EGD in 09/20 with nonbleeding duodenal ulcer continue PPI Hgb:9.2 today Iron Studies - negative for iron deficiency anemia follow H&H ANEMIA 2/2 to acute blood loss anemia in setting of PUD higher than recent baseline, no active bleeding per patient HD stable, no need for transfusion Monitor H&H VITAMIN D DEFICIENCY Vit D levels 9.1 Will replace with Vit D 34651 units q week x 6 weeks followed by 1000 units daily Need to monitor outpatient DEPRESSION/INSOMNIA continue Amitriptyline, Lyrica, Restoril TOBACCO ABUSE Cessation counseling given H/O BREAST CA s/p mastectomy in the DVT PROPHYLAXIS: high risk, Sq Lovenox CODE STATUS: FULL CODE per my discussion with the patient and her daughter DISPO: Lives with her daughter at home PT/OT ordered Vital Signs: Date Time Temp Pulse Resp B/P Pulse Ox O2 Delivery O2 Flow Rate FiO2 10/18/16 19:45 73 16 92/49 98 Nasal Cannula 2 10/18/16 19:30 82 16 94/43 98 Nasal Cannula 2 10/18/16 19:15 36.7 79 16 92/49 98 Nasal Cannula 2 10/18/16 19:05 82 16 95/47 98 Nasal Cannula 2 10/18/16 18:55 89 16 97/49 98 Mask 10 10/18/16 18:45 90 16 93/52 98 Mask 10 10/18/16 18:41 36.8 95 16 111/59 99 Mask 10 10/18/16 15:25 36.8 84 16 103/50 94 Room Air 10/18/16 13:27 87 92/62 10/18/16 08:00 Room Air 10/18/16 07:14 37.0 81 19 91/50 92 Room Air 10/18/16 00:05 Room Air 10/17/16 22:50 36.8 81 14 96/61 92 Room Air Lab Results: Results Past 24 Hours Test 10/18/16 07:10 Range/Units White Blood Count 15.30 4.8-10.8 K/uL Red Blood Count 3.62 4.2-5.4 M/uL Hemoglobin 9.2 12.0-16.0 g/dL Hematocrit 29.4 37-47 % Mean Corpuscular Volume 81.2 80-100 fL Mean Corpuscular Hemoglobin 25.4 25-34 pg Mean Corpuscular Hemoglobin Concent 31.3 32-36 g/dl Platelet Count 1269 130-400 K/uL Mean Platelet Volume 10.5 7.4-10.4 fL RDW Standard Deviation 90.8 36.4-46.3 fL RDW Coefficient of Variation 31.1 11.5-14.5 % Nucleated RBC Absolute Count (auto) 0.08 0-0 K/uL Neutrophils % (Manual) 70.4 % Lymphocytes % (Manual) 12.2 % Monocytes % (Manual) 2.6 % Eosinophils % (Manual) 9.6 % Basophils % (Manual) 5.2 % Nucleated Red Blood Cells % 0.5 % Neutrophils # (Manual) 10.77 1.4-6.5 K/uL Total Absolute Neutrophils 10.77 1.4-6.5 K/uL Lymphocytes # (Manual) 1.87 1.2-3.4 K/uL Total Absolute Lymphocytes 1.87 1.2-3.4 K/uL Monocytes # (Manual) 0.40 0.11-0.59 K/uL Eosinophils # (Manual) 1.47 0-0.5 K/uL Basophils # (Manual) 0.80 0-0.2 K/uL Hypochromasia PRESENT Basophilic Stippling 1+ Anisocytosis PRESENT Ovalocytes 1+ Sodium Level 142 136-145 mmol/L Potassium Level 4.2 3.5-5.1 mmol/L Chloride Level 107 98-107 mmol/L Carbon Dioxide Level 25 21-32 mmol/L Anion Gap 10.0 3-11 mmol/L Blood Urea Nitrogen 14 7-18 mg/dl Creatinine 0.78 0.60-1.20 mg/dl Est Creatinine Clear Calc Drug Dose 46.4 ml/min Estimated GFR () 86.8 Estimated GFR (Non- 74.9 BUN/Creatinine Ratio 17.4 10-20 Random Glucose 93 70-99 mg/dl Calcium Level 8.0 8.5-10.1 mg/dl
[2016-10-18] MEDS ORDERED: PHENYLEPHRINE 100MCG/ML 5ML SYR ONE (16:24)
[2016-10-18] MEDS ORDERED: HYDROmorphone INJ 2 MG/ML SYR/VIAL ONE (17:01)
[2016-10-18] MEDS ORDERED: LARYING-O-JET KIT (LTA) EXT ONE ×2 (17:18)
[2016-10-18] MEDS ORDERED: EpHEDrine SULFATE 50MG/5ML SYR ONE (17:47)
--- NOTE | 2016-10-18 18:13 | [facility] Post Operative Brief Note ---
Immediate Operative Summary Operative Date Oct 18, 2016. Pre-Operative Diagnosis Intractable left hip pain with nonunion left hip fracture Post-Operative Diagnosis same Procedure(s) Performed l zohreh, removal deep screws time [address] Amari Avendaño Jigsaw Operator Surgeon(s) Panfilo Espino PA-C Estimated Blood Loss 200 Findings fx non union Specimens a. Explanted hardware left hip Complication(s) None Disposition Recovery Room / PACU
[2016-10-18] MEDS ORDERED: ALUMINUM/MAGNESIUM/SIMETH (MAALOX MAX) 30 ML UDC PO PRN (18:15)
[2016-10-18] MEDS ORDERED: MAGNESIUM HYDROXIDE SUSP 30 ML UDC PO PRN (18:15)
[2016-10-18] MEDS ORDERED: SOD PHOSPHATE/SOD BIPHOSPHATE ENEMA 132 ML BTL PR PRN (18:15)
[2016-10-18] MEDS ORDERED: DiphenhydrAMINE HCL 50 MG/ML VIAL IV PRN (18:15)
[2016-10-18] MEDS ORDERED: METOCLOPRAMIDE HCL INJ 5 MG/ML 2 ML VIAL IV PRN (18:15)
[2016-10-18] MEDS ORDERED: BISACODYL 10 MG SUPP PR PRN (18:15)
[2016-10-18] MEDS ORDERED: ZOLPIDEM TARTRATE 5 MG TAB PO PRN (18:15)
--- NOTE | 2016-10-18 18:32 | DIAGNOSTIC IMAGING REPORT ---
INTRAOPERATIVE FLUOROSCOPIC IMAGE OF THE LEFT HIP CLINICAL HISTORY: Total left hip arthroplasty. COMPARISON STUDY: CT of the left hip October 16, 2016. Fluoroscopy time: 12.8 seconds. FINDINGS: 1 fluoroscopic image demonstrates anatomic alignment of the left hip arthroplasty. An acetabular screw is partially imaged. There is no fracture or unexpected radiopaque foreign body. IMPRESSION: Expected findings during total left hip arthroplasty. Electronically signed by: Constantin Richter M.D. 10/18/2016 6:30 PM Dictated Date/Time: 10/18/2016 6:29 PM
--- NOTE | 2016-10-18 19:13 | Anesthesiology Progress Note ---
Anesthesia Post Op Note Date & Time Oct 18, 2016 at 19:13 Vital Signs Pain Intensity: 0 Vital Signs Past 12 Hours Date Time Temp Pulse Resp B/P Pulse Ox O2 Delivery O2 Flow Rate FiO2 10/18/16 19:05 82 16 95/47 98 Nasal Cannula 2 10/18/16 18:55 89 16 97/49 98 Mask 10 10/18/16 18:45 90 16 93/52 98 Mask 10 10/18/16 18:41 36.8 95 16 111/59 99 Mask 10 10/18/16 15:25 36.8 84 16 103/50 94 Room Air 10/18/16 13:27 87 92/62 10/18/16 08:00 Room Air 10/18/16 07:14 37.0 81 19 91/50 92 Room Air Notes Mental Status: alert / awake / arousable, participated in evaluation Pt Amnestic to Procedure: Yes Nausea / Vomiting: adequately controlled Pain: adequately controlled Airway Patency, RR, SpO2: stable & adequate BP & HR: stable & adequate Hydration State: stable & adequate Anesthetic Complications: no major complications apparent The patient did well. She is awake and comfortable.
--- NOTE | 2016-10-18 19:35 | DIAGNOSTIC IMAGING REPORT ---
LEFT PELVIS/UNILATERAL HIP 1 VIEW CLINICAL HISTORY: Left hip arthroplasty. COMPARISON: CT of the left hip October 16, 2016. FINDINGS: Alignment of the total left hip arthroplasty is anatomic. There is no periprosthetic fracture or unexpected radiopaque foreign body. Drain and skin andres are present. There is an acetabular screw. IMPRESSION: Expected findings following total left hip arthroplasty. Electronically signed by: Constantin Richter M.D. 10/18/2016 7:34 PM Dictated Date/Time: 10/18/2016 7:33 PM
[2016-10-18] MEDS ORDERED: D5W AND 1/2NSS + 20MEQ KCL 1,000 ML IV SCH (21:00)
[2016-10-18] MEDS: CEFAZOLIN IV 1,000 MG in DEXTROSE 5% 50ML 50 ML IV SCH (22:10)
[2016-10-18] MEDS: AMITRIPTYLINE HCL 25 MG TAB PO SCH (22:14)
[2016-10-18] MEDS: SENNA 8.6 MG TAB PO SCH (22:17)
[2016-10-18] MEDS: TEMAZEPAM 15 MG CAP PO SCH (22:20)
[2016-10-18] MEDS: PREGABALIN 75 MG CAP PO SCH (22:21)
--- NOTE | 2016-10-18 23:26 | OPERATIVE REPORT ---
DATE OF OPERATION: 10/18/2016 PREOPERATIVE DIAGNOSIS: Failed open reduction internal fixation, left hip with intractable pain. POSTOPERATIVE DIAGNOSIS: Same. PROCEDURES: 1. Left total hip replacement. 2. Removal of hardware, deep screws x3. SURGEON: Omi Avendaño MD BLAST SETTER: GARRETT Berger ANESTHESIA: General. TOTAL BLOOD LOSS: 200 mL. REPLACEMENT FLUIDS: 1800 mL of crystalloid. DRAINS: Hemovacs x1. CULTURES: None. COMPLICATIONS: None. COMPONENTS USED: Diaz \T\ Nephew polar hip system: Acetabulum size 48, femur size 3 standard offset, femoral head -332 mm. NOTE: GARRETT Berger was present and assisted throughout due to the complicated nature of this case. He helped with preparation and set up, first assisted throughout and personally closed the capsule, subcutaneous and skin layers and applied the postoperative dressing. INDICATION FOR PROCEDURE: The patient is a 76-year-old chronically ill female with a history of myelodysplastic disorder, peptic ulcer disease and failed ORIF of the hip performed in [place]. She has been canceled for surgery on occasion because of pneumonia and because of her hypercoagulability state. She was admitted with intractable pain and evidence of failure of internal fixation. DESCRIPTION: Following satisfactory general, patient was supine. The left leg was placed in the traction device, the right leg in the well leg dhaliwal. The leg was prepared with ChloraPrep and draped sterilely. The patient was extremely thin, weighing only 46 kilograms. The old skin incision for the cannulated screws was opened. The screws were identified and very protuberant in the subcutaneous space and were removed intact x3. The incision was irrigated. The fascia closed with 1 Vicryl interrupted, the subcutaneous tissues with 2-0 Vicryl, and the skin with surgical andres. An anterior approach to the hip was then performed in the interval between the sartorius and tensor muscles. There was general bleeding because patient has been on Plavix. The interval between the muscles was opened and the circumflex femoral vessels were identified and ligated. An anterior capsulotomy was performed exposing the fractured hip and nonunion. The femoral neck and head were trimmed, removing the nonunion and the femoral head. The acetabular self-retraining retractor was placed. Acetabular soft tissue contents was removed and the acetabulum was reamed. A 48 shell was impacted into an anatomic position and secured with a dome screw. Local anesthetic was placed and after irrigation, the polyethylene liner was placed. The femur was then placed into position of external rotation, extension and adduction. This allowed access to the proximal femoral canal. Again, there was general oozing from the bone, most likely due to the Plavix. The femoral canal was opened and prepared up to the size 3. A trial reduction with a -3 head showed good fit and fill of the proximal canal on fluoroscopy and yazdanism of leg lengths using anatomic landmarks. The hip was dislocated. The trial component was removed. The final implant was placed and reduced after irrigation. A Betadine soak was performed. After 5 minutes, the Betadine was irrigated. The capsule was closed with 1-0 Vicryl interrupted. A Hemovac drain was placed. The muscle fascia was closed with a running suture of 1 Vicryl, the subcutaneous tissues with 2-0 Vicryl. The skin was closed with surgical andres and an Aquacel dressing applied to both. The patient was then extubated and returned to her bed, having tolerated the procedure and in stable condition. I attest to the content of the Intraoperative Record and any orders documented therein. Any exceptio ns are noted below.
[2016-10-19] VITALS (25 sets, daily range): BP systolic 67–105; BP diastolic 33–64; PULSE 80–110; TEMP 36.4–37.6; O2SAT 90–99
[2016-10-19] MEDS: CHECK FENTANYL PATCH PLACEMENT SCH
[2016-10-19 02:44] LABS: HEMATOCRIT 20.2 % (37-47); MAGNESIUM 1.7 mg/dl (1.8-2.4); MEAN CELL VOLUME 81.5 fL (80-100); MEAN CORPUSCULAR HEMOGLOBIN 25.4 pg (25-34); MEAN CORPUSCULAR HGB CONC 31.2 g/dl (32-36); MEAN PLATELET VOLUME 11.1 fL (7.4-10.4); PLATELET COUNT 1157 K/uL (130-400); RED BLOOD COUNT 2.48 M/uL (4.2-5.4); THYROID STIMULATING HORMONE 1.26 uIu/ml (0.300-4.500); WHITE BLOOD COUNT 37.57 K/uL (4.8-10.8)
[2016-10-19 02:54] LABS: ANISOCYTOSIS PRESENT; BASO ABS # 0.34 K/uL (0-0.2); BASOPHIL % 0.9 %; COMPLETE YES; EOSINOPHIL % 1.8 %; LYMPH ABS # 2.67 K/uL (1.2-3.4); LYMPHOCYTE % 7.1 %; MYELOCYTE % 0.9 %; NEUTROPHILS % 88.4 %; OVALOCYTES 1+; SCHISTOCYTES OCCASIONAL
[2016-10-19 03:03] LABS: BUN/CREATININE RATIO 15.9 (10-20); CALCIUM 7.2 mg/dl (8.5-10.1); CREATININE 0.98 mg/dl (0.60-1.20); POTASSIUM 4.9 mmol/L (3.5-5.1)
[2016-10-19] MEDS ORDERED: SODIUM CHLORIDE 0.9% 1000ML 1,000 ML IV STA (03:09)
--- NOTE | 2016-10-19 03:15 | Progress Note ---
Internal Med Progress Note Date of Service: Oct 19, 2016. Provider Documentation: Made aware by RN of SBP 60s-70s. px asymptomatic HH 6.9 NSS bolus transfuse prbc, hold Plavix, Lovenox for now hold Fentanyl patch until BP improved Will relay to AM provider. Vital Signs: Date Time Temp Pulse Resp B/P Pulse Ox O2 Delivery O2 Flow Rate FiO2 10/19/16 09:46 37.2 97 18 100/57 10/19/16 09:10 37.1 104 20 93/61 10/19/16 08:42 36.9 92 18 94/58 10/19/16 08:31 Room Air 10/19/16 08:25 36.8 96 18 90/51 10/19/16 08:04 37.0 96 18 92/55 10/19/16 07:30 36.9 92 20 95/62 90 Room Air 10/19/16 07:10 36.7 89 14 95/58 93 10/19/16 06:25 97 Room Air 10/19/16 06:10 36.8 87 14 96/54 99 2.0 10/19/16 05:40 36.4 87 14 92/60 98 2.0 10/19/16 05:10 36.7 83 14 77/46 99 2.0 10/19/16 04:40 36.8 80 12 85/53 10/19/16 03:07 36.5 80 16 75/45 98 Nasal Cannula 2.0 10/19/16 02:44 82/50 10/19/16 01:24 74/45 10/19/16 00:46 98 84/49 10/19/16 00:30 73/47 10/19/16 00:28 67/33 10/19/16 00:00 Nasal Cannula 2.0 10/18/16 23:03 36.8 98 14 85/49 99 Nasal Cannula 2.0 10/18/16 22:00 36.0 93 18 109/57 100 Nasal Cannula 2.0 10/18/16 21:04 36.7 86 18 86/51 96 Nasal Cannula 2.0 10/18/16 20:42 Nasal Cannula 2.0 10/18/16 20:27 36.5 75 16 93/57 95 Nasal Cannula 2.0 10/18/16 20:15 36.6 81 18 95/57 94 Nasal Cannula 2.0 10/18/16 20:00 95 Nasal Cannula 2.0 10/18/16 19:45 73 16 92/49 98 Nasal Cannula 2 10/18/16 19:30 82 16 94/43 98 Nasal Cannula 2 10/18/16 19:15 36.7 79 16 92/49 98 Nasal Cannula 2 10/18/16 19:05 82 16 95/47 98 Nasal Cannula 2 10/18/16 18:55 89 16 97/49 98 Mask 10 10/18/16 18:45 90 16 93/52 98 Mask 10 10/18/16 18:41 36.8 95 16 111/59 99 Mask 10 10/18/16 15:25 36.8 84 16 103/50 94 Room Air 10/18/16 13:27 87 92/62 Lab Results: Results Past 24 Hours Test 10/19/16 02:07 Range/Units White Blood Count 37.57 4.8-10.8 K/uL Red Blood Count 2.48 4.2-5.4 M/uL Hemoglobin 6.3 12.0-16.0 g/dL Hematocrit 20.2 37-47 % Mean Corpuscular Volume 81.5 80-100 fL Mean Corpuscular Hemoglobin 25.4 25-34 pg Mean Corpuscular Hemoglobin Concent 31.2 32-36 g/dl Platelet Count 1157 130-400 K/uL Mean Platelet Volume 11.1 7.4-10.4 fL Neutrophils % (Manual) 88.4 % Lymphocytes % (Manual) 7.1 % Monocytes % (Manual) 0.9 % Eosinophils % (Manual) 1.8 % Basophils % (Manual) 0.9 % Myelocytes % 0.9 % Neutrophils # (Manual) 33.21 1.4-6.5 K/uL Total Absolute Neutrophils 33.21 1.4-6.5 K/uL Lymphocytes # (Manual) 2.67 1.2-3.4 K/uL Total Absolute Lymphocytes 2.67 1.2-3.4 K/uL Monocytes # (Manual) 0.34 0.11-0.59 K/uL Eosinophils # (Manual) 0.68 0-0.5 K/uL Basophils # (Manual) 0.34 0-0.2 K/uL Myelocytes # 0.34 0-0 K/uL Anisocytosis PRESENT Ovalocytes 1+ Schistocytes OCCASIONAL Sodium Level 140 136-145 mmol/L Potassium Level 4.9 3.5-5.1 mmol/L Chloride Level 108 98-107 mmol/L Carbon Dioxide Level 24 21-32 mmol/L Anion Gap 8.0 3-11 mmol/L Blood Urea Nitrogen 16 7-18 mg/dl Creatinine 0.98 0.60-1.20 mg/dl Est Creatinine Clear Calc Drug Dose 37.0 ml/min Estimated GFR () 65.9 Estimated GFR (Non- 56.8 BUN/Creatinine Ratio 15.9 10-20 Random Glucose 150 70-99 mg/dl Lactic Acid Level 2.1 0.4-2.0 mmol/L Calcium Level 7.2 8.5-10.1 mg/dl Magnesium Level 1.7 1.8-2.4 mg/dl Thyroid Stimulating Hormone (TSH) 1.260 0.300-4.500 uIu/ml
[2016-10-19] MEDS ORDERED: MAGNESIUM SULFATE 1GM / D5W 1 GM in PREMIXED IN D5W 100 ML IV ONE (03:30)
[2016-10-19] MEDS: CEFAZOLIN IV 1,000 MG in DEXTROSE 5% 50ML 50 ML IV SCH (07:46)
--- NOTE | 2016-10-19 08:14 | Orthopedic Progress Note ---
Orthopedic Progress Note Date of Service Oct 19, 2016. Subjective Post OP Day: 1 Reports: feeling well, Denies: SOB, calf pain, chest pain, light headedness, nausea / vomiting Objective calves soft nontender, N/V intact, dressing C/D/I, A&O x3, toes mobile, hemovac drainage (30/25cc per shift) Date Time Temp Pulse Resp B/P Pulse Ox O2 Delivery O2 Flow Rate FiO2 10/19/16 08:04 37.0 96 18 92/55 10/19/16 07:30 36.9 92 20 95/62 90 Room Air 10/19/16 07:10 36.7 89 14 95/58 93 10/19/16 06:25 97 Room Air 10/19/16 06:10 36.8 87 14 96/54 99 2.0 10/19/16 05:40 36.4 87 14 92/60 98 2.0 10/19/16 05:10 36.7 83 14 77/46 99 2.0 10/19/16 04:40 36.8 80 12 85/53 10/19/16 03:07 36.5 80 16 75/45 98 Nasal Cannula 2.0 10/19/16 02:44 82/50 10/19/16 01:24 74/45 10/19/16 00:46 98 84/49 10/19/16 00:30 73/47 10/19/16 00:28 67/33 10/19/16 00:00 Nasal Cannula 2.0 10/18/16 23:03 36.8 98 14 85/49 99 Nasal Cannula 2.0 10/18/16 22:00 36.0 93 18 109/57 100 Nasal Cannula 2.0 10/18/16 21:04 36.7 86 18 86/51 96 Nasal Cannula 2.0 10/18/16 20:42 Nasal Cannula 2.0 10/18/16 20:27 36.5 75 16 93/57 95 Nasal Cannula 2.0 10/18/16 20:15 36.6 81 18 95/57 94 Nasal Cannula 2.0 10/18/16 20:00 95 Nasal Cannula 2.0 10/18/16 19:45 73 16 92/49 98 Nasal Cannula 2 10/18/16 19:30 82 16 94/43 98 Nasal Cannula 2 10/18/16 19:15 36.7 79 16 92/49 98 Nasal Cannula 2 10/18/16 19:05 82 16 95/47 98 Nasal Cannula 2 10/18/16 18:55 89 16 97/49 98 Mask 10 10/18/16 18:45 90 16 93/52 98 Mask 10 10/18/16 18:41 36.8 95 16 111/59 99 Mask 10 10/18/16 15:25 36.8 84 16 103/50 94 Room Air 10/18/16 13:27 87 92/62 Laboratory Results 24 Hours: Test 10/19/16 02:07 White Blood Count 37.57 K/uL Red Blood Count 2.48 M/uL Hemoglobin 6.3 g/dL Hematocrit 20.2 % Mean Corpuscular Volume 81.5 fL Mean Corpuscular Hemoglobin 25.4 pg Mean Corpuscular Hemoglobin Concent 31.2 g/dl Platelet Count 1157 K/uL Mean Platelet Volume 11.1 fL Assessment & Plan Assessment: POD#1 SP REMOVAL HARDWARE, CONVERSION TO LEFT IKER THROMBOCYTOPENIA H/O GI BLEED ACUTE BLOOD LOSS ANEMIA Plan: ANEMIA- HAS ALREADY RECEIVED 1 UNIT AND IS ABOUT TO GET A 2ND MEDICAL MANAGEMENT PT/OT TOLERATED- MAY NOT GET MUCH TODAY SECONDARY TO TRANSFUSION RESUME PLAVIX. START LOVENOX 30MG DAILY PER DR. STONE (1) Essential thrombocythemia (2) History of hip fracture Acute (3) Intractable pain Acute (4) Anemia Chronic Inhouse Planning Pain Management: Ultram, Dilaudid DVT Prophylaxis: TEDs, SCDs, Lovenox, other (PLAVIX) Discharge Planning Discharge Planning: home with home health
[2016-10-19] MEDS ORDERED: PANTOprazole SOD 40 MG TAB PO SCH (09:00)
[2016-10-19] MEDS: ONDANSETRON INJ 2 MG/ML 2 ML VIAL IV PRN ×2 (09:19→14:44)
[2016-10-19] MEDS: FLUTICASONE/SALMETEROL 250/50 (ADVAIR) 14 PUFF/1 INHALER INH SCH ×2 (09:21→21:30)
[2016-10-19] MEDS: NICOTINE 14 MG/24 HR TDSY TD SCH (09:22)
[2016-10-19] MEDS: PANTOprazole SOD 40 MG TAB PO SCH ×2 (09:22→21:30)
[2016-10-19] MEDS: GUAIFENESIN 600 MG TABCR PO SCH ×2 (10:17→20:50)
[2016-10-19] MEDS: MULTIVITAMIN TAB PO SCH (10:17)
[2016-10-19] MEDS: LORATADINE 10 MG TAB PO SCH (10:17)
[2016-10-19] MEDS: CLOPIDOGREL BISULFATE 75 MG TAB PO SCH (10:17)
[2016-10-19] MEDS: ENOXAPARIN 30 MG/0.3 ML SYR SQ SCH (10:18)
[2016-10-19] MEDS: HYDROmorphone HCL 2 MG TAB PO PRN (12:04)
[2016-10-19 12:07] LABS: MEAN CELL VOLUME 80.3 fL (80-100); MEAN CORPUSCULAR HEMOGLOBIN 26.8 pg (25-34); MEAN CORPUSCULAR HGB CONC 33.3 g/dl (32-36); MEAN PLATELET VOLUME 10.9 fL (7.4-10.4); PLATELET COUNT 1159 K/uL (130-400); RED BLOOD COUNT 2.99 M/uL (4.2-5.4); WHITE BLOOD COUNT 26.39 K/uL (4.8-10.8)
[2016-10-19 12:17] LABS: ANISOCYTOSIS PRESENT; BASO % 0.2 %; BASO ABS # 0.06 K/uL (0-0.2); COMPLETE YES; EOS % 1.3 %; IG% 0.6 %; LYMPH % 7.2 %; LYMPH ABS # 1.91 K/uL (1.2-3.4); MONO % 5.3 %; NEUT % 85.4 %; POLYCHROMASIA 1+; TARGET CELLS 1+
[2016-10-19] MEDS: HYDROmorphone INJ 1 MG/ML SYR IV PRN ×3 (14:43→18:11)
[2016-10-19] MEDS: TRAMADOL HCL 50 MG TAB PO PRN (16:05)
--- NOTE | 2016-10-19 17:12 | Progress Note ---
Internal Med Progress Note Date of Service: Oct 19, 2016. Provider Documentation: SUBJECTIVE: Patient is seen and examined at bedside. Patient complains of pain of Left hip at the surgical site. Denies any chest pain, SOB, dizziness. OBJECTIVE: Vital Signs-as noted below Physical Exam: General Appearance:Thin, fragile, no apparent distress Head: normocephalic, Atraumatic Eyes: normal inspection, EOMI, PERRLA, Anicteric Neck: supple, no JVD, Trachea midline Respiratory/Chest: Normal breath sounds, CTA, No accessory muscle use Cardiovascular: S1, S2, Tachycardia, No murmur Abdomen/GI:Soft, Non tender, Bowel sounds present Extremities/Musculoskelatal:normal inspection, Left LE in surgical Bandage, + drain Neurologic/Psych:AAOX3, grossly no focal neurological deficits Skin: normal color, warm Lab data as noted below. ASSESSMENT & PLAN: ASSESSMENT & PLAN: Patient is a 76 yr old female with history of left hip fracture who failed ORIF presents to the ED with worsening hip pain following a fall 2 days ago INTRACTABLE LEFT HIP PAIN - KNOWN H/O LEFT HIP FRACTURE NONUNION, NOW WITH RECENT FALL CT left hip:Incomplete healing of the mildly displaced, impacted left femoral neck fracture without significant interval healing Follows with Dr. Avendaño as outpatient was to have surgery on 09/30 but d/t pneumonia and recent GI bleed this was postponed Left IKER on 10/18/16 S/P Left total left hip arthroplasty: Post OP # 1 Pain control. BP improved, but use narcotics cautiously Continue lovenox daily Heme/onc input appreciated- Discussed with today (Agreed to continue Lovenox 30mg daily) PT/OT evaluation Orthopaedics on board ACUTE BLOOD LOSS ANEMIA: s/p 2 units PRBC Hb:7.6 today Monitor Hb HX OF LEFT HIP FRACTURE NON UNION: S/P Left IKER ON 10/18/16 Plavix resumed H/O Essential Thrombocythemia: follows up with Dr Mainor Chavez: Needs Lovenox for 4 weeks post OP MYELODYSPLASTIC SYNDROME Follows with Dr. Mainor Chavez Likely Essential Thrombocythemia per Dr. Chavez: Discussed with today Leukocytosis worsened likely secondary to Decadron Platelet count: 1.1 million Very high risk for VTE- continue with lovenox daily for prophylaxis for 4 weeks Plavix resumed Patient continues to smoke, cessation counseling Heme/onc on board H/O Intolerance to Interferon therapy Plan to restarting hydroxyurea: 500 mg every other day after the surgery Needs Out patient FU with heme/onch COPD recent pneumonia CXR without consolidations continue home inhalers H/O GI BLEED Last EGD in 09/20 with nonbleeding duodenal ulcer continue PPI Hgb:7.6 today Iron Studies - negative for iron deficiency anemia follow H&H S/P PRBCs VITAMIN D DEFICIENCY Vit D levels 9.1 [place] 65248 units q week x 6 weeks followed by 1000 units daily Need to monitor outpatient DEPRESSION/INSOMNIA continue Amitriptyline, Lyrica, Restoril TOBACCO ABUSE Cessation counseling given H/O BREAST CA s/p mastectomy in the DVT PROPHYLAXIS: high risk, Sq Lovenox CODE STATUS: FULL CODE per my discussion with the patient and her daughter DISPO: Lives with her daughter at home PT/OT Social service Vital Signs: Date Time Temp Pulse Resp B/P Pulse Ox O2 Delivery O2 Flow Rate FiO2 10/19/16 16:02 37.6 110 18 105/64 95 Room Air 10/19/16 15:38 106 96 10/19/16 12:36 90 10/19/16 10:41 37.0 94 18 96/57 10/19/16 09:46 37.2 97 18 100/57 10/19/16 09:10 37.1 104 20 93/61 10/19/16 08:42 36.9 92 18 94/58 10/19/16 08:31 Room Air 10/19/16 08:25 36.8 96 18 90/51 10/19/16 08:04 37.0 96 18 92/55 10/19/16 07:30 36.9 92 20 95/62 90 Room Air 10/19/16 07:10 36.7 89 14 95/58 93 10/19/16 06:25 97 Room Air 10/19/16 06:10 36.8 87 14 96/54 99 2.0 10/19/16 05:40 36.4 87 14 92/60 98 2.0 10/19/16 05:10 36.7 83 14 77/46 99 2.0 10/19/16 04:40 36.8 80 12 85/53 10/19/16 03:07 36.5 80 16 75/45 98 Nasal Cannula 2.0 10/19/16 02:44 82/50 10/19/16 01:24 74/45 10/19/16 00:46 98 84/49 10/19/16 00:30 73/47 10/19/16 00:28 67/33 10/19/16 00:00 Nasal Cannula 2.0 10/18/16 23:03 36.8 98 14 85/49 99 Nasal Cannula 2.0 10/18/16 22:00 36.0 93 18 109/57 100 Nasal Cannula 2.0 10/18/16 21:04 36.7 86 18 86/51 96 Nasal Cannula 2.0 10/18/16 20:42 Nasal Cannula 2.0 10/18/16 20:27 36.5 75 16 93/57 95 Nasal Cannula 2.0 10/18/16 20:15 36.6 81 18 95/57 94 Nasal Cannula 2.0 10/18/16 20:00 95 Nasal Cannula 2.0 10/18/16 19:45 73 16 92/49 98 Nasal Cannula 2 10/18/16 19:30 82 16 94/43 98 Nasal Cannula 2 10/18/16 19:15 36.7 79 16 92/49 98 Nasal Cannula 2 10/18/16 19:05 82 16 95/47 98 Nasal Cannula 2 Lab Results: Results Past 24 Hours Test 10/19/16 02:07 10/19/16 11:46 10/19/16 14:20 10/19/16 17:55 Range/Units White Blood Count 37.57 26.39 4.8-10.8 K/uL Red Blood Count 2.48 2.99 4.2-5.4 M/uL Hemoglobin 6.3 8.0 7.6 12.0-16.0 g/dL Hematocrit 20.2 24.0 23.2 37-47 % Mean Corpuscular Volume 81.5 80.3 80-100 fL Mean Corpuscular Hemoglobin 25.4 26.8 25-34 pg Mean Corpuscular Hemoglobin Concent 31.2 33.3 32-36 g/dl Platelet Count 1157 1159 130-400 K/uL Mean Platelet Volume 11.1 10.9 7.4-10.4 fL Neutrophils % (Manual) 88.4 % Lymphocytes % (Manual) 7.1 % Monocytes % (Manual) 0.9 % Eosinophils % (Manual) 1.8 % Basophils % (Manual) 0.9 % Myelocytes % 0.9 % Neutrophils # (Manual) 33.21 1.4-6.5 K/uL Total Absolute Neutrophils 33.21 1.4-6.5 K/uL Lymphocytes # (Manual) 2.67 1.2-3.4 K/uL Total Absolute Lymphocytes 2.67 1.2-3.4 K/uL Monocytes # (Manual) 0.34 0.11-0.59 K/uL Eosinophils # (Manual) 0.68 0-0.5 K/uL Basophils # (Manual) 0.34 0-0.2 K/uL Myelocytes # 0.34 0-0 K/uL Anisocytosis PRESENT PRESENT Ovalocytes 1+ Schistocytes OCCASIONAL Sodium Level 140 136-145 mmol/L Potassium Level 4.9 3.5-5.1 mmol/L Chloride Level 108 98-107 mmol/L Carbon Dioxide Level 24 21-32 mmol/L Anion Gap 8.0 3-11 mmol/L Blood Urea Nitrogen 16 7-18 mg/dl Creatinine 0.98 0.60-1.20 mg/dl Est Creatinine Clear Calc Drug Dose 37.0 ml/min Estimated GFR () 65.9 Estimated GFR (Non- 56.8 BUN/Creatinine Ratio 15.9 10-20 Random Glucose 150 70-99 mg/dl Lactic Acid Level 2.1 1.6 0.4-2.0 mmol/L Calcium Level 7.2 8.5-10.1 mg/dl Magnesium Level 1.7 2.1 1.8-2.4 mg/dl Thyroid Stimulating Hormone (TSH) 1.260 0.300-4.500 uIu/ml Neutrophils (%) (Auto) 85.4 % Lymphocytes (%) (Auto) 7.2 % Monocytes (%) (Auto) 5.3 % Eosinophils (%) (Auto) 1.3 % Basophils (%) (Auto) 0.2 % Neutrophils # (Auto) 22.49 1.4-6.5 K/uL Lymphocytes # (Auto) 1.91 1.2-3.4 K/uL Monocytes # (Auto) 1.41 0.11-0.59 K/uL Eosinophils # (Auto) 0.35 0-0.5 K/uL Basophils # (Auto) 0.06 0-0.2 K/uL RDW Standard Deviation 68.2 36.4-46.3 fL RDW Coefficient of Variation 26.0 11.5-14.5 % Immature Granulocyte % (Auto) 0.6 % Immature Granulocyte # (Auto) 0.17 0.00-0.02 K/uL Nucleated RBC Absolute Count (auto) 0.10 0-0 K/uL Nucleated Red Blood Cells % 0.4 % Polychromasia 1+ Basophilic Stippling 1+ Target Cells 1+ Stool Occult Blood NEGATIVE NEGATIVE
[2016-10-19 18:22] LABS: HEMATOCRIT 23.2 % (37-47)
[2016-10-19] MEDS: HYDROmorphone INJ 0.5 MG/0.5 ML SYR IV PRN ×3 (19:21→22:32)
[2016-10-19] MEDS: FENTANYL 12 MCG/HR TDSY TD SCH (20:49)
[2016-10-19] MEDS: FENTANYL PATCH REMOVE & WASTE SCH (21:29)
[2016-10-19] MEDS: AMITRIPTYLINE HCL 25 MG TAB PO SCH (21:33)
[2016-10-19] MEDS: PREGABALIN 75 MG CAP PO SCH (21:38)
[2016-10-19] MEDS: TEMAZEPAM 15 MG CAP PO SCH (21:38)
[2016-10-19] MEDS: SENNA 8.6 MG TAB PO SCH (21:39)
[2016-10-20] VITALS (15 sets, daily range): BP systolic 90–118; BP diastolic 45–70; PULSE 103–119; TEMP 36.7–38.1; O2SAT 90–96
[2016-10-20] MEDS: CHECK FENTANYL PATCH PLACEMENT SCH ×4 (00:21→23:33)
[2016-10-20] MEDS: HYDROmorphone INJ 0.5 MG/0.5 ML SYR IV PRN ×6 (00:24→21:38)
--- NOTE | 2016-10-20 07:45 | Orthopedic Progress Note ---
Orthopedic Progress Note Date of Service Oct 20, 2016. Subjective Post OP Day: 2 Reports: feeling well, Denies: SOB, calf pain, chest pain, light headedness, nausea / vomiting Additional Notes: PATIENT SEEMS MORE DROWSY TODAY. WILL BARELY OPEN HER EYES TO TALK TO ME. STATES SHE IS STILL PAINFUL. PT WENT "HORRIBLE" YESTERDAY. Objective calves soft nontender, N/V intact, hip located, dressing C/D/I, A&O x3, toes mobile Date Time Temp Pulse Resp B/P Pulse Ox O2 Delivery O2 Flow Rate FiO2 10/20/16 07:14 36.7 110 18 93/51 91 Room Air 10/20/16 00:15 Room Air 10/19/16 23:30 37.5 108 16 98/48 97 Room Air 10/19/16 20:01 37.3 99 20 103/61 95 Room Air 10/19/16 16:30 95 Room Air 10/19/16 16:02 37.6 110 18 105/64 95 Room Air 10/19/16 15:38 106 96 10/19/16 12:36 90 10/19/16 10:41 37.0 94 18 96/57 10/19/16 09:46 37.2 97 18 100/57 10/19/16 09:10 37.1 104 20 93/61 10/19/16 08:42 36.9 92 18 94/58 10/19/16 08:31 Room Air 10/19/16 08:25 36.8 96 18 90/51 10/19/16 08:04 37.0 96 18 92/55 Laboratory Results 24 Hours: Test 10/19/16 11:46 10/19/16 17:55 10/20/16 04:44 White Blood Count 26.39 K/uL Red Blood Count 2.99 M/uL Hemoglobin 8.0 g/dL 7.6 g/dL Hematocrit 24.0 % 23.2 % Mean Corpuscular Volume 80.3 fL Mean Corpuscular Hemoglobin 26.8 pg Mean Corpuscular Hemoglobin Concent 33.3 g/dl Platelet Count 1159 K/uL Mean Platelet Volume 10.9 fL Neutrophils (%) (Auto) 85.4 % Lymphocytes (%) (Auto) 7.2 % Monocytes (%) (Auto) 5.3 % Eosinophils (%) (Auto) 1.3 % Basophils (%) (Auto) 0.2 % Neutrophils # (Auto) 22.49 K/uL Lymphocytes # (Auto) 1.91 K/uL Monocytes # (Auto) 1.41 K/uL Eosinophils # (Auto) 0.35 K/uL Basophils # (Auto) 0.06 K/uL Assessment & Plan Assessment: POD#2 SP REMOVAL HARDWARE, CONVERSION TO LEFT IKER THROMBOCYTOPENIA H/O GI BLEED ACUTE BLOOD LOSS ANEMIA Plan: ANEMIA- HGB IMPROVED TO 8.0 THEN DROPPED BACK TO 7.6. STILL PENDING TODAY. MEDICAL MANAGEMENT PT/OT TOLERATED RESUME PLAVIX. START LOVENOX 30MG DAILY PER DR. STONE ACCEPTED AT [facility] WHEN MEDICALLY STABLE. CUT IV DILAUDID FROM Q1HR TO Q3HR, HOPEFULLY SHE WILL BE MORE ALERT. (1) Essential thrombocythemia (2) History of hip fracture Acute (3) Intractable pain Acute (4) Anemia Chronic Inhouse Planning Pain Management: Ultram, Dilaudid DVT Prophylaxis: TEDs, SCDs, Lovenox, other (PLAVIX) Discharge Planning Discharge Planning: rehab hospital ([facility])
[2016-10-20 08:13] LABS: HEMATOCRIT 20.4 % (37-47); MEAN CELL VOLUME 79.1 fL (80-100); MEAN CORPUSCULAR HEMOGLOBIN 26.7 pg (25-34); MEAN CORPUSCULAR HGB CONC 33.8 g/dl (32-36); MEAN PLATELET VOLUME 10.4 fL (7.4-10.4); PLATELET COUNT 1030 K/uL (130-400); RED BLOOD COUNT 2.58 M/uL (4.2-5.4); WHITE BLOOD COUNT 22.12 K/uL (4.8-10.8)
[2016-10-20 08:30] LABS: ANISOCYTOSIS PRESENT; BASOPHIL % 0.9 %; COMPLETE YES; EOSINOPHIL % 0.9 %; GIANT PLATELETS 3+; HYPOCHROMIA PRESENT; LYMPH ABS # 1.77 K/uL (1.2-3.4); METAMYELOCYTE % 0.9 %; NEUTROPHILS % 83.1 %; PLT ESTIMATE INCREASED; TARGET CELLS 1+
[2016-10-20 08:53] LABS: BUN/CREATININE RATIO 17.5 (10-20); CALCIUM 7.6 mg/dl (8.5-10.1); CREATININE 0.69 mg/dl (0.60-1.20); POTASSIUM 4.5 mmol/L (3.5-5.1)
[2016-10-20] MEDS: FLUTICASONE/SALMETEROL 250/50 (ADVAIR) 14 PUFF/1 INHALER INH SCH ×2 (10:00→21:18)
[2016-10-20] MEDS: LORATADINE 10 MG TAB PO SCH (10:00)
[2016-10-20] MEDS: GUAIFENESIN 600 MG TABCR PO SCH ×2 (10:00→21:20)
[2016-10-20] MEDS: MULTIVITAMIN TAB PO SCH (10:00)
[2016-10-20] MEDS: ENOXAPARIN 30 MG/0.3 ML SYR SQ SCH (10:01)
[2016-10-20] MEDS: NICOTINE 14 MG/24 HR TDSY TD SCH (10:01)
[2016-10-20] MEDS: CLOPIDOGREL BISULFATE 75 MG TAB PO SCH (10:01)
[2016-10-20] MEDS ORDERED: PROPOFOL IV EMULSION 10 MG/ML 20 ML VIAL IV ONE (10:30)
[2016-10-20] MEDS ORDERED: LIDOCAINE HCL 2% 2 ML VIAL (20MG/ML) ONE (10:30)
[2016-10-20] MEDS: PANTOprazole SOD 40 MG TAB PO SCH ×2 (10:40→21:20)
[2016-10-20] MEDS: ACETAMINOPHEN 325 MG TAB PO PRN (12:56)
[2016-10-20] MEDS: HYDROmorphone HCL 2 MG TAB PO PRN ×2 (12:59→19:02)
[2016-10-20] MEDS ORDERED: NURSING VERBAL MED ORDER ONE ×2 (13:30→20:30)
--- NOTE | 2016-10-20 15:19 | Progress Note ---
Internal Med Progress Note Date of Service: Oct 20, 2016. Provider Documentation: SUBJECTIVE: Patient is seen and examined at bedside. Patient was drowsy this morning but currently alert, awake. Patient complains of persistent pain of Left hip at the surgical site. Denies any chest pain, SOB, dizziness. Currently receiving blood transfusion. OBJECTIVE: Vital Signs-as noted below Physical Exam: General Appearance:Thin, fragile, no apparent distress Head: normocephalic, Atraumatic Eyes: normal inspection, EOMI, PERRLA, Anicteric Neck: supple, no JVD, Trachea midline Respiratory/Chest: Normal breath sounds, CTA, No accessory muscle use Cardiovascular: S1, S2, Tachycardia, No murmur Abdomen/GI:Soft, Non tender, Bowel sounds present Extremities/Musculoskelatal:normal inspection, Left LE in surgical Bandage Neurologic/Psych:AAOX3, grossly no focal neurological deficits Skin: normal color, warm Lab data as noted below. ASSESSMENT & PLAN: ASSESSMENT & PLAN: Patient is a 76 yr old female with history of left hip fracture who failed ORIF presents to the ED with worsening hip pain following a fall 2 days ago INTRACTABLE LEFT HIP PAIN - KNOWN H/O LEFT HIP FRACTURE NONUNION, NOW WITH RECENT FALL CT left hip:Incomplete healing of the mildly displaced, impacted left femoral neck fracture without significant interval healing Follows with Dr. Avendaño as outpatient was to have surgery on 09/30 but d/t pneumonia and recent GI bleed this was postponed Left IKER on 10/18/16 S/P Left total left hip arthroplasty: Post OP # 2 Pain control. BP improved, but use narcotics cautiously Hold lovenox for daily as requiring blood transfusion : Needs to resume once Hb stable PT/OT evaluation Orthopaedics on board S/P 3 PRBCs and currently receiving 1 unit PRBC, recheck H&H ACUTE BLOOD LOSS ANEMIA: s/p 3 units PRBC, currently receiving 1 unit PRBC Hb dropped to 6.9 today Monitor Hb Hold lovonox for now HX OF LEFT HIP FRACTURE NON UNION: S/P Left IKER ON 10/18/16 Continue Plavix H/O Essential Thrombocythemia: follows up with Dr Mainor Chavez: Needs Lovenox for 4 weeks post OP MYELODYSPLASTIC SYNDROME Follows with Dr. Mainor Chavez Likely Essential Thrombocythemia per Dr. Chavez: Discussed with on Leukocytosis worsened likely secondary to Decadron, trending down currently 22k Platelet count: 1.0 million today Very high risk for VTE- continue with lovenox daily for prophylaxis for 4 weeks Plavix resumed. Need to resume lovenox Patient continues to smoke, cessation counseling Heme/onc on board H/O Intolerance to Interferon therapy Plan to restarting hydroxyurea: 500 mg every other day after the surgery Needs Out patient FU with heme/onch COPD recent pneumonia CXR without consolidations continue home inhalers H/O GI BLEED Last EGD in 09/20 with nonbleeding duodenal ulcer continue PPI Hgb:6.9 today Iron Studies - negative for iron deficiency anemia follow H&H S/P PRBCs FOBT is negative VITAMIN D DEFICIENCY Vit D levels 9.1 Will replace with Vit D 10297 units q week x 6 weeks followed by 1000 units daily Need to monitor outpatient DEPRESSION/INSOMNIA continue Amitriptyline, Lyrica, Restoril TOBACCO ABUSE Cessation counseling given H/O BREAST CA s/p mastectomy in the DVT PROPHYLAXIS: high risk, Sq Lovenox on hold CODE STATUS: FULL CODE per my discussion with the patient and her daughter DISPO: Lives with her daughter at home PT/OT Social service consulted Vital Signs: Date Time Temp Pulse Resp B/P Pulse Ox O2 Delivery O2 Flow Rate FiO2 10/20/16 14:50 37.4 106 17 94/51 92 10/20/16 14:23 37.5 111 16 90/49 95 10/20/16 14:06 37.9 111 20 90/45 95 10/20/16 13:53 37.9 10/20/16 12:29 36.9 108 16 96/58 90 10/20/16 11:07 36.9 119 16 91/55 93 10/20/16 10:41 36.9 119 16 107/48 93 10/20/16 10:24 37.6 118 20 106/62 96 2.0 10/20/16 10:07 37.2 110 16 105/62 10/20/16 08:29 Room Air 10/20/16 07:14 36.7 110 18 93/51 91 Room Air 10/20/16 00:15 Room Air 10/19/16 23:30 37.5 108 16 98/48 97 Room Air 10/19/16 20:01 37.3 99 20 103/61 95 Room Air 10/19/16 16:30 95 Room Air 10/19/16 16:02 37.6 110 18 105/64 95 Room Air 10/19/16 15:38 106 96 Lab Results: Results Past 24 Hours Test 10/19/16 17:55 10/20/16 07:42 Range/Units Hemoglobin 7.6 6.9 12.0-16.0 g/dL Hematocrit 23.2 20.4 37-47 % White Blood Count 22.12 4.8-10.8 K/uL Red Blood Count 2.58 4.2-5.4 M/uL Mean Corpuscular Volume 79.1 80-100 fL Mean Corpuscular Hemoglobin 26.7 25-34 pg Mean Corpuscular Hemoglobin Concent 33.8 32-36 g/dl Platelet Count 1030 130-400 K/uL Mean Platelet Volume 10.4 7.4-10.4 fL RDW Standard Deviation 69.8 36.4-46.3 fL RDW Coefficient of Variation 26.3 11.5-14.5 % Nucleated RBC Absolute Count (auto) 0.09 0-0 K/uL Neutrophils % (Manual) 83.1 % Lymphocytes % (Manual) 8.0 % Monocytes % (Manual) 6.2 % Eosinophils % (Manual) 0.9 % Basophils % (Manual) 0.9 % Metamyelocytes % 0.9 % Nucleated Red Blood Cells % 0.4 % Neutrophils # (Manual) 18.38 1.4-6.5 K/uL Total Absolute Neutrophils 18.38 1.4-6.5 K/uL Lymphocytes # (Manual) 1.77 1.2-3.4 K/uL Total Absolute Lymphocytes 1.77 1.2-3.4 K/uL Monocytes # (Manual) 1.37 0.11-0.59 K/uL Eosinophils # (Manual) 0.20 0-0.5 K/uL Basophils # (Manual) 0.20 0-0.2 K/uL Metamyelocytes # 0.20 0-0 K/uL Platelet Estimate INCREASED Giant Platelets 3+ Hypochromasia PRESENT Basophilic Stippling 1+ Anisocytosis PRESENT Target Cells 1+ Sodium Level 140 136-145 mmol/L Potassium Level 4.5 3.5-5.1 mmol/L Chloride Level 109 98-107 mmol/L Carbon Dioxide Level 21 21-32 mmol/L Anion Gap 10.0 3-11 mmol/L Blood Urea Nitrogen 12 7-18 mg/dl Creatinine 0.69 0.60-1.20 mg/dl Est Creatinine Clear Calc Drug Dose 52.5 ml/min Estimated GFR () 99.4 Estimated GFR (Non- 85.8 BUN/Creatinine Ratio 17.5 10-20 Random Glucose 100 70-99 mg/dl Calcium Level 7.6 8.5-10.1 mg/dl
[2016-10-20] MEDS: TRAMADOL HCL 50 MG TAB PO PRN ×2 (17:36→21:34)
[2016-10-20 20:20] LABS: HEMATOCRIT 27.1 % (37-47)
[2016-10-20] MEDS ORDERED: CeleBREX 100 MG CAP PO ONE (21:00)
[2016-10-20] MEDS: SENNA 8.6 MG TAB PO SCH (21:00)
[2016-10-20] MEDS: AMITRIPTYLINE HCL 25 MG TAB PO SCH (21:19)
[2016-10-20] MEDS: PREGABALIN 75 MG CAP PO SCH (21:24)
[2016-10-20] MEDS: TEMAZEPAM 15 MG CAP PO SCH (21:24)
[2016-10-21] VITALS (9 sets, daily range): BP systolic 85–167; BP diastolic 44–78; PULSE 93–102; TEMP 36.6–37.8; O2SAT 92–97
[2016-10-21] MEDS: TRAMADOL HCL 50 MG TAB PO PRN ×3 (06:30→22:04)
[2016-10-21 07:47] LABS: MEAN CORPUSCULAR HGB CONC 33.9 g/dl (32-36); MEAN PLATELET VOLUME 10.6 fL (7.4-10.4); PLATELET COUNT 845 K/uL (130-400)
[2016-10-21] MEDS: CHECK FENTANYL PATCH PLACEMENT SCH ×3 (08:00→23:58)
[2016-10-21 08:18] LABS: ANISOCYTOSIS PRESENT; BASO ABS # 0.51 K/uL (0-0.2); BASOPHIL % 3.6 %; COMPLETE YES; EOSINOPHIL % 3.6 %; HEMATOCRIT 22.4 % (37-47); LYMPHOCYTE % 6.4 %; MEAN CELL VOLUME 80.9 fL (80-100); MEAN CORPUSCULAR HEMOGLOBIN 27.4 pg (25-34); MYELOCYTE % 0.9 %; NEUTROPHILS % 78.2 %; RED BLOOD COUNT 2.77 M/uL (4.2-5.4); WHITE BLOOD COUNT 14.03 K/uL (4.8-10.8)
--- NOTE | 2016-10-21 08:59 | Orthopedic Progress Note ---
Orthopedic Progress Note Date of Service Oct 21, 2016. Subjective Post OP Day: 3 Reports: complaints (pain in the operative hip/thigh), Denies: SOB, chest pain, light headedness, nausea / vomiting Additional Notes: Pt lying in bed with left hip flexed. Extends the leg fully. States she's having moderate pain in the hip / thigh region. No other complaints. Objective calves soft nontender, N/V intact, hip located, dressing C/D/I, A&O x3, toes mobile Left thigh with swelling but not tense. Tender with palpation. She has some increased induration in the area of where the drain site is. No erythema. Able to flex and extend hip and knee with some discomfort. Abdomen soft, flat. NT. BS P/A Date Time Temp Pulse Resp B/P Pulse Ox O2 Delivery O2 Flow Rate FiO2 10/21/16 07:33 36.6 96 18 91/52 92 Room Air 10/21/16 03:58 102 93/55 10/21/16 00:00 Room Air 10/20/16 23:20 37.2 106 14 94/55 93 Room Air 10/20/16 16:44 37.5 103 18 113/67 95 10/20/16 16:30 95 Room Air 10/20/16 15:57 37.6 10/20/16 15:45 38.1 107 18 118/70 95 10/20/16 14:50 37.4 106 17 94/51 92 10/20/16 14:23 37.5 111 16 90/49 95 10/20/16 14:06 37.9 111 20 90/45 95 10/20/16 13:53 37.9 10/20/16 12:29 36.9 108 16 96/58 90 10/20/16 11:07 36.9 119 16 91/55 93 10/20/16 10:41 36.9 119 16 107/48 93 10/20/16 10:24 37.6 118 20 106/62 96 2.0 10/20/16 10:07 37.2 110 16 105/62 Laboratory Results 24 Hours: Test 10/20/16 20:09 10/21/16 07:22 Hematocrit 27.1 % 22.4 % Hemoglobin 9.1 g/dL 7.6 g/dL White Blood Count 14.03 K/uL Red Blood Count 2.77 M/uL Mean Corpuscular Volume 80.9 fL Mean Corpuscular Hemoglobin 27.4 pg Mean Corpuscular Hemoglobin Concent 33.9 g/dl Platelet Count 845 K/uL Mean Platelet Volume 10.6 fL Assessment & Plan Assessment: POD#3 SP REMOVAL HARDWARE, CONVERSION TO LEFT IKER THROMBOCYTHEMIA H/O GI BLEED ACUTE BLOOD LOSS ANEMIA Plan: ANEMIA- HGB 9.1 AFTER 2ND TRANSFUSION; NOW DOWN TO 7.6 MEDICAL MANAGEMENT PT/OT TOLERATED LOVENOX HELD AFTER DISCUSSION WITH DR REEVES. WILL DISCUSS PLAVIX USE WELL PT STATING SHE WAS USING HIGHER DOSE FENTANYL PATCHES AT HOME. CONTINUES TO HAVE MODERATE PAIN. SOME NARCOTICS DECREASED DUE TO LOW BP. WILL CONSULT PAIN MANAGEMENT FOR RECOMMENDATIONS. (1) Essential thrombocythemia (2) History of hip fracture Acute (3) Intractable pain Acute (4) Anemia Chronic Inhouse Planning Pain Management: Ultram, Dilaudid, other (Fentanyl patch) DVT Prophylaxis: TEDs, SCDs, other (PLAVIX) Discharge Planning Discharge Planning: rehab hospital ([facility])
[2016-10-21] MEDS: LORATADINE 10 MG TAB PO SCH (09:35)
[2016-10-21] MEDS: GUAIFENESIN 600 MG TABCR PO SCH ×2 (09:35→21:27)
[2016-10-21] MEDS: FLUTICASONE/SALMETEROL 250/50 (ADVAIR) 14 PUFF/1 INHALER INH SCH ×2 (09:35→21:27)
[2016-10-21] MEDS: CLOPIDOGREL BISULFATE 75 MG TAB PO SCH (09:35)
[2016-10-21] MEDS: NICOTINE 14 MG/24 HR TDSY TD SCH (09:35)
[2016-10-21] MEDS: MULTIVITAMIN TAB PO SCH (09:36)
[2016-10-21] MEDS: PANTOprazole SOD 40 MG TAB PO SCH ×2 (09:36→21:26)
[2016-10-21] MEDS: ACETAMINOPHEN 325 MG TAB PO PRN (09:40)
--- NOTE | 2016-10-21 10:23 | Pain Management Consultation ---
Pain Management Consultation Date of Consultation Oct 21, 2016. Reason for Consultation med mgt History 76 year old female with PMHx of COPD, Myeloproliferative disorder, presented to the ED with a fall and increased left hip pain. She had a left hip fracture in March s/p ORIF. 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 She fell at home and had increased left hip pain. She had Left total hip replacement with removal of hardware, deep screws x3 on 10/18. She had had sedation with her current pain regimen and has been refusing to take PO dilaudid insisting on IV dilaudid which creates her sedation. Pain 0-10/10 worse with activity particularly PT. She describes her pain as sharp and throbbing. Past Medical/Surgical History (1) Left hip pain (2) Peptic ulcer disease (3) History of pneumonia (4) Myelodysplasia (myelodysplastic syndrome) (5) History of hip fracture (6) Intractable pain (7) Essential thrombocythemia (8) S/P ORIF (open reduction internal fixation) fracture (9) Breast CA (10) Myelodysplastic syndrome (11) History of peptic ulcer disease (12) History of breast cancer (13) GI bleed (14) Anemia due to blood loss, acute (15) Anemia (16) COPD (chronic obstructive pulmonary disease) (17) Post-operative state (18) Status post hysterectomy (19) Status post cholecystectomy (20) Status post mastectomy (21) History of repair of left hip joint Social / Work History Smokeless Tobacco Use: No Drug Use: none Marital Status: Housing Status: lives with family Occupation: retired Allergies Coded Allergies: Lobster (Verified Allergy, Severe, HIVES, 10/14/16) Latex1 -Allergic Contact Dermititis (Verified Allergy, Unknown, HIVES, 06/20) NO KNOWN DRUG ALLERGIES (Verified Allergy, Unknown, ., 10/14/16) Uncoded Allergies: METALS (Allergy, Unknown, HIVES/ITCHINESS, 09/22/16) PATIENT REPORTS ANY METALS UNDER 14 KT GOLD CAUSES HER TO BECOME ITCHY AND GET HIVES Medications Current Inpatient Medications Medications (Trade) Dose Ordered Sig/Pradip Route Start Time Stop Time Status Last Admin Dose Admin Acetaminophen (Tylenol Tab) 650 mg Q4H PRN PO 10/16/16 19:30 11/15/16 19:29 10/21/16 09:40 650 MG Polyethylene (Miralax Powder Packet) 17 gm DAILY PRN PO 10/16/16 19:30 11/15/16 19:29 Ondansetron HCl (Zofran Inj) 4 mg Q6H PRN IV 10/16/16 19:30 11/15/16 19:29 10/19/16 14:44 4 MG Albuterol (Ventolin Hfa Inhaler) 2 puffs Q6H PRN INH 10/16/16 19:45 11/15/16 19:44 10/17/16 02:05 2 PUFFS Amitriptyline HCl (Elavil Tab) 75 mg HS PO 10/16/16 21:00 11/15/16 20:59 10/20/16 21:19 75 MG Salmeterol Xinafoate/ Fluticasone (Advair Diskus 250/50 Inh) 1 puff BID INH 10/16/16 21:00 11/15/16 20:59 10/21/16 09:35 1 PUFF Pantoprazole Sodium (Protonix Tab) 40 mg BID PO 10/16/16 21:00 11/15/16 20:59 10/21/16 09:36 40 MG Temazepam (Restoril Cap) 30 mg HS PO 10/16/16 21:00 11/15/16 20:59 10/20/16 21:24 30 MG Guaifenesin (Mucinex Contr Rel Tab) 600 mg Q12H PO 10/16/16 20:00 11/15/16 19:59 10/21/16 09:35 600 MG Loratadine (Claritin Tab) 10 mg DAILY PO 10/17/16 09:00 11/16/16 08:59 10/21/16 09:35 10 MG Rizatriptan Benzoate (Maxalt Tab) 10 mg PRN PRN PO 10/17/16 01:00 11/16/16 00:59 10/17/16 02:24 10 MG Tramadol HCl (Ultram Tab) `1-2 tabs for pain 1 tab ... Q4H PRN PO 10/17/16 10:45 11/16/16 10:44 10/21/16 06:30 100 MG Nicotine (Nicoderm Cq 14MG Patch) 1 patch QAM TD 10/18/16 09:00 11/17/16 08:59 10/21/16 09:35 1 PATCH Miscellaneous (Remove Nicoderm Patch) 1 ea HS N/A 10/17/16 21:00 11/16/16 20:59 10/20/16 21:22 1 EA Magnesium Hydroxide (Milk Of Magnesia Susp) 30 ml Q6H PRN PO 10/18/16 18:15 11/17/16 18:14 Bisacodyl (Dulcolax Supp) 10 mg DAILY PRN AL 10/18/16 18:15 11/17/16 18:14 Sodium Biphosphate/ Sodium Phosphate (Fleet Enema) 132 ml DAILY PRN AL 10/18/16 18:15 11/17/16 18:14 Senna (Senokot Tab) 17.2 mg HS PO 10/18/16 21:00 11/17/16 20:59 10/19/16 21:39 17.2 MG Diphenhydramine HCl (Benadryl Cap) 25 mg Q8H PRN PO 10/18/16 18:15 11/17/16 18:14 Diphenhydramine HCl (Benadryl Inj) 25 mg Q8H PRN IV 10/18/16 18:15 11/17/16 18:14 Al Hydrox/Mg Hydrox/Simethicone (Maalox Max Susp) 15 ml Q4H PRN PO 10/18/16 18:15 11/17/16 18:14 Zolpidem Tartrate (Ambien Tab) 5 mg HSZ PRN PO 10/18/16 18:15 11/17/16 18:14 Multivitamins (Multivitamin Tab) 1 tab QAM PO 10/19/16 09:00 11/18/16 08:59 10/21/16 09:36 1 TAB Metoclopramide HCl (Reglan Inj) 10 mg Q6H PRN IV 10/18/16 18:15 11/17/16 18:14 Enoxaparin Sodium (Lovenox Inj) 30 mg QAM SQ 10/19/16 09:00 11/18/16 08:59 Future Hold 10/20/16 10:01 30 MG Clopidogrel Bisulfate (plAVix TAB) 75 mg QAM PO 10/19/16 09:00 11/18/16 08:59 10/21/16 09:35 75 MG Fentanyl (Duragesic Patch) 12 mcg Q72H TD 10/19/16 20:00 11/02/16 19:59 10/19/16 20:49 12 MCG Miscellaneous (Fentanyl Patch Remove & Waste) 1 ea Q3D@1959 N/A 10/19/16 19:59 11/18/16 19:58 Miscellaneous Information (Check Fentanyl Patch Placement) 1 ea QS N/A 10/20/16 00:00 11/19/16 00:00 10/21/16 08:00 1 EA Hydromorphone HCl (Dilaudid Inj) 0.5 mg Q12 PRN IV 10/21/16 21:00 11/04/16 20:59 Hydromorphone HCl (Dilaudid Tab) 2 mg Q3H PRN PO 10/21/16 10:30 11/04/16 10:29 Pregabalin (Lyrica Cap) 75 mg BID PO 10/21/16 21:00 11/20/16 20:59 Review of Systems 10pt ROS negative aside from HPI currently. Physical Exam Height & Weight: Height 5 feet, 4.00 inches. Weight 46.500 (Kilograms) 102 (Pounds) Last Vital Signs Documentation Date Time Temp Pulse Resp B/P Pulse Ox O2 Delivery O2 Flow Rate FiO2 10/21/16 07:33 36.6 96 18 91/52 92 Room Air 10/20/16 10:24 2.0 Exam: AAOx3 in NAD resting comfortably in bed. No distress with movement BENNETT easily w/o complaint sensation intact gait not observed dressing intact Laboratory / Imaging Results Laboratory Results (Last CBC): 10/21/16 07:22 Red Blood Count 2.77 L, Mean Corpuscular Volume 80.9, Mean Corpuscular Hemoglobin 27.4, Mean Corpuscular Hemoglobin Concent 33.9, Mean Platelet Volume 10.6 [facility] [place] Drug Monitoring Program Search Results: patient reviewed within database, see additional documentation (no fentanyl patches documented as outpt in aug 2016,oct 2016) Opioid Risk Assessment Risk assessment performed, moderate risk identified Assessment 1. Acute on chronic postoperative Left hip pain 2. Opiate dependence 3. Issues with PDMP Recommendations 1. Will diminish IV dilaudid dosing to q12. Pt informed that this would be used only as a last resort medication for intractable pain. SHe is understanding 2. Continue fentanyl at [id number] appropriate for postop. Noted, no fentanyl as of aug 2016 in pdmp. 3. May use PO dilaudid 2mg po q3 prn breakthrough pain 4. PT/OT per ortho 5. Would not send home with large rx for opiates as she is at risk for misuse. 6. Increase lyrica to 75mg po BID Dragon Voice Recognition This chart was completed in part utilizing blur [employer] Voice Recognition Software. Random word insertions, pronoun errors, and incomplete sentences are an occasional consequence of this system due to software limitations and ambient noise. Any questions or concerns about the content, text or information contained within the body of this dictation should be directly addressed to the provider for clarification.
[2016-10-21] MEDS: HYDROmorphone HCL 2 MG TAB PO PRN ×4 (10:55→22:57)
[2016-10-21] MEDS ORDERED: NURSING VERBAL MED ORDER ONE (12:30)
[2016-10-21] MEDS ORDERED: PREGABALIN 75 MG CAP PO ONE (12:45)
--- NOTE | 2016-10-21 14:45 | Progress Note ---
Internal Med Progress Note Date of Service: Oct 21, 2016. Provider Documentation: SUBJECTIVE: Patient is seen and examined at bedside. Patient complains of persistent pain of Left hip at the surgical site. Offers no other complaints. Denies any hematuria, blood in stools, epistaxis or any other source of bleeding. OBJECTIVE: Vital Signs-as noted below Physical Exam: General Appearance:Thin, fragile, no apparent distress Head: normocephalic, Atraumatic Eyes: normal inspection, EOMI, PERRLA, Anicteric Neck: supple, no JVD, Trachea midline Respiratory/Chest: Normal breath sounds, CTA, No accessory muscle use Cardiovascular: S1, S2, Tachycardia, No murmur Abdomen/GI:Soft, Non tender, Bowel sounds present Extremities/Musculoskelatal:normal inspection, Left LE in surgical Bandage Neurologic/Psych:AAOX3, grossly no focal neurological deficits Skin: normal color, warm Lab data as noted below. ASSESSMENT & PLAN: ASSESSMENT & PLAN: Patient is a 76 yr old female with history of left hip fracture who failed ORIF presents to the ED with worsening hip pain following a fall 2 days ago INTRACTABLE LEFT HIP PAIN - KNOWN H/O LEFT HIP FRACTURE NONUNION, NOW WITH RECENT FALL CT left hip:Incomplete healing of the mildly displaced, impacted left femoral neck fracture without significant interval healing Follows with Dr. Avendaño as outpatient was to have surgery on 09/30 but d/t pneumonia and recent GI bleed this was postponed Left IKER on 10/18/16 S/P Left total left hip arthroplasty: Post OP #3 Pain control per pain management BP stable Hold lovenox for now as requiring blood transfusion : Needs to resume once Hb stable PT/OT evaluation Orthopaedics on board S/P 4 PRBCs after surgery ACUTE BLOOD LOSS ANEMIA: s/p 4 units PRBC Hb improved to 9.1 after transfusion and dropped to 7.6 today Monitor Hb Hold lovonox for now Request Ortho to re-eval the leg for possible source of bleed HX OF LEFT HIP FRACTURE NON UNION: S/P Left IKER ON 10/18/16 Continue Plavix H/O Essential Thrombocythemia: follows up with Dr Mainor Chavez: Needs Lovenox for 4 weeks post OP MYELODYSPLASTIC SYNDROME Follows with Dr. Mainor Chavez Likely Essential Thrombocythemia per Dr. Chavez: Discussed with on Leukocytosis worsened likely secondary to Decadron, trending down Platelet count: 845, Improving Very high risk for VTE- continue with lovenox daily for prophylaxis for 4 weeks Plavix resumed. Need to resume lovenox when Hb stable Patient continues to smoke, cessation counseling Heme/onc on board H/O Intolerance to Interferon therapy Plan to restarting hydroxyurea: 500 mg every other day when Hb stable Needs Out patient FU with heme/onch COPD recent pneumonia CXR without consolidations continue home inhalers H/O GI BLEED Last EGD in 09/20 with nonbleeding duodenal ulcer continue PPI Hgb:7.6 today Iron Studies - negative for iron deficiency anemia follow H&H S/P PRBCs FOBT is negative VITAMIN D DEFICIENCY Vit D levels 9.1 Will replace [place] D 56252 units q week x 6 weeks followed by 1000 units daily Need to monitor outpatient DEPRESSION/INSOMNIA continue Amitriptyline, Lyrica, Restoril TOBACCO ABUSE Cessation counseling given H/O BREAST CA s/p mastectomy in the DVT PROPHYLAXIS: high risk, Sq Lovenox on hold CODE STATUS: FULL CODE per my discussion with the patient and her daughter DISPO: Lives with her daughter at home PT/OT Social service consulted Vital Signs: Date Time Temp Pulse Resp B/P Pulse Ox O2 Delivery O2 Flow Rate FiO2 10/21/16 10:55 100/62 10/21/16 07:33 36.6 96 18 91/52 92 Room Air 10/21/16 03:58 102 93/55 10/21/16 00:00 Room Air 10/20/16 23:20 37.2 106 14 94/55 93 Room Air 10/20/16 16:44 37.5 103 18 113/67 95 10/20/16 16:30 95 Room Air 10/20/16 15:57 37.6 10/20/16 15:45 38.1 107 18 118/70 95 Lab Results: Results Past 24 Hours Test 10/20/16 20:09 10/21/16 07:22 Range/Units Hemoglobin 9.1 7.6 12.0-16.0 g/dL Hematocrit 27.1 22.4 37-47 % White Blood Count 14.03 4.8-10.8 K/uL Red Blood Count 2.77 4.2-5.4 M/uL Mean Corpuscular Volume 80.9 80-100 fL Mean Corpuscular Hemoglobin 27.4 25-34 pg Mean Corpuscular Hemoglobin Concent 33.9 32-36 g/dl Platelet Count 845 130-400 K/uL Mean Platelet Volume 10.6 7.4-10.4 fL RDW Standard Deviation 64.7 36.4-46.3 fL RDW Coefficient of Variation 23.8 11.5-14.5 % Neutrophils % (Manual) 78.2 % Lymphocytes % (Manual) 6.4 % Monocytes % (Manual) 7.3 % Eosinophils % (Manual) 3.6 % Basophils % (Manual) 3.6 % Myelocytes % 0.9 % Neutrophils # (Manual) 10.97 1.4-6.5 K/uL Total Absolute Neutrophils 10.97 1.4-6.5 K/uL Lymphocytes # (Manual) 0.90 1.2-3.4 K/uL Total Absolute Lymphocytes 0.90 1.2-3.4 K/uL Monocytes # (Manual) 1.02 0.11-0.59 K/uL Eosinophils # (Manual) 0.51 0-0.5 K/uL Basophils # (Manual) 0.51 0-0.2 K/uL Myelocytes # 0.13 0-0 K/uL Basophilic Stippling 1+ Anisocytosis PRESENT
--- NOTE | 2016-10-21 15:18 | Hematology/Oncology Prog Note ---
Hematology/Onc Progress Note Date of Service Oct 21, 2016. Diagnoses 1. S/p left hip arthoplasty for nonunion complication of left hip fracture with intractable pain 2. Essential thrombocythemia 3. Anemia of multiple mechanisms 4. Sacral pressure ulcer Medications Medications Administered Medications (Trade) Dose Ordered Sig/Pradip Route Start Time Stop Time Status Last Admin Dose Admin Hydromorphone HCl (Dilaudid Inj) 1 mg Q1HWA PRN IV 10/16/16 16:45 10/16/16 21:44 DC 10/16/16 18:08 1 MG Ondansetron HCl (Zofran Inj) 4 mg Q1HWA PRN IV 10/16/16 16:45 10/16/16 21:44 DC 10/16/16 18:08 4 MG Acetaminophen (Tylenol Tab) 650 mg Q4H PRN PO 10/16/16 19:30 11/15/16 19:29 10/21/16 09:40 650 MG Ondansetron HCl (Zofran Inj) 4 mg Q6H PRN IV 10/16/16 19:30 11/15/16 19:29 10/19/16 14:44 4 MG Hydromorphone HCl (Dilaudid Tab) 2 mg Q6H PRN PO 10/16/16 19:30 10/21/16 09:24 DC 10/20/16 19:02 2 MG Hydromorphone HCl (Dilaudid Inj) 0.5 mg Q1H PRN IV 10/16/16 19:30 10/19/16 19:04 DC 10/19/16 18:11 0.5 MG Albuterol (Ventolin Hfa Inhaler) 2 puffs Q6H PRN INH 10/16/16 19:45 11/15/16 19:44 10/17/16 02:05 2 PUFFS Amitriptyline HCl (Elavil Tab) 75 mg HS PO 10/16/16 21:00 11/15/16 20:59 10/20/16 21:19 75 MG Fentanyl (Duragesic Patch) 50 mcg Q72H TD 10/18/16 09:00 10/19/16 03:25 DC 10/18/16 08:20 50 MCG Salmeterol Xinafoate/ Fluticasone (Advair Diskus 250/50 Inh) 1 puff BID INH 10/16/16 21:00 11/15/16 20:59 10/21/16 09:35 1 PUFF Pantoprazole Sodium (Protonix Tab) 40 mg BID PO 10/16/16 21:00 11/15/16 20:59 10/21/16 09:36 40 MG Pregabalin (Lyrica Cap) 75 mg HS PO 10/16/16 21:00 10/21/16 09:24 DC 10/20/16 21:24 75 MG Temazepam (Restoril Cap) 30 mg HS PO 10/16/16 21:00 11/15/16 20:59 10/20/16 21:24 30 MG Guaifenesin (Mucinex Contr Rel Tab) 600 mg Q12H PO 10/16/16 20:00 11/15/16 19:59 10/21/16 09:35 600 MG Loratadine (Claritin Tab) 10 mg DAILY PO 10/17/16 09:00 11/16/16 08:59 10/21/16 09:35 10 MG Miscellaneous (Fentanyl Patch Remove & Waste) 1 ea Q3D@0859 N/A 10/18/16 08:59 10/19/16 03:25 DC 10/18/16 08:20 1 EA Miscellaneous Information (Check Fentanyl Patch Placement) 1 ea QS N/A 10/17/16 00:00 10/19/16 03:33 DC 10/19/16 00:00 1 EA Rizatriptan Benzoate (Maxalt Tab) 10 mg PRN PRN PO 10/17/16 01:00 11/16/16 00:59 10/17/16 02:24 10 MG Tramadol HCl (Ultram Tab) `1-2 tabs for pain 1 tab ... Q4H PRN PO 10/17/16 10:45 11/16/16 10:44 10/21/16 06:30 100 MG Nicotine (Nicoderm Cq 14MG Patch) 1 patch QAM TD 10/18/16 09:00 11/17/16 08:59 10/21/16 09:35 1 PATCH Miscellaneous (Remove Nicoderm Patch) 1 ea HS N/A 10/17/16 21:00 11/16/16 20:59 10/20/16 21:22 1 EA Povidone Iodine (Betadine Ophthalmic Prep Solution) 30 ml STK-MED ONCE .ROUTE 10/18/16 15:50 10/18/16 15:52 DC 10/18/16 15:50 17 ML Bacitracin 32749 units 50,000 units STK-MED ONCE .ROUTE 10/18/16 15:50 10/18/16 15:52 DC 10/18/16 15:50 50,000 UNITS Ropivacaine 150 mg/Bupivacaine HCl/Epinephrine Bitart 30 ml/ Ketorolac Tromethamine 30 mg/Dexamethasone Sodium Phosphate 4 mg/Ketamine HCl 10 mg/Clonidine 100 mcg/Sodium Chloride 30 ml/ Empty Bag 93.2 ml @ 0 mls/hr TODAY@06 INFIL 10/18/16 06:00 10/18/16 16:25 DC 10/18/16 06:00 1 MLS/HR Polymyxin B Sulfate 875641 units/Sodium Chloride 102 ml @ 0 mls/hr 0600 IR 10/18/16 06:00 10/18/16 18:01 DC 10/18/16 06:00 40 MLS/HR Vancomycin HCl 400 mg/Sodium Chloride 108 ml @ 0 mls/hr 0600 IR 10/18/16 06:00 10/18/16 18:01 DC 10/18/16 06:00 40 MLS/HR Potassium Chloride/Dextrose/ Sod Cl (D5W And 1/2nss + 20meq KCl) 1,000 ml @ 100 mls/hr Q10H IV 10/18/16 21:00 10/19/16 03:14 DC 10/18/16 22:10 100 MLS/HR Senna (Senokot Tab) 17.2 mg HS PO 10/18/16 21:00 11/17/16 20:59 10/19/16 21:39 17.2 MG Multivitamins 1 tab 1 tab QAM PO 10/19/16 09:00 11/18/16 08:59 10/21/16 09:36 1 TAB Cefazolin Sodium 1000 mg/Dextrose 55 ml @ 100 mls/hr Q8H IV 10/18/16 22:00 10/19/16 08:32 DC 10/19/16 07:46 100 MLS/HR Sodium Chloride 1,000 ml @ 250 mls/hr Q4H STAT IV 10/19/16 03:09 10/19/16 07:08 DC 10/19/16 03:28 250 MLS/HR Magnesium Sulfate/ Prmx (Magnesium Sulfate/Premixed D5W) 100 ml @ 100 mls/hr ONE ONCE IV 10/19/16 03:30 10/19/16 04:29 DC 10/19/16 03:43 100 MLS/HR Enoxaparin Sodium (Lovenox Inj) 30 mg QAM SQ 10/19/16 09:00 11/18/16 08:59 Future Hold 10/20/16 10:01 30 MG Clopidogrel Bisulfate (plAVix TAB) 75 mg QAM PO 10/19/16 09:00 11/18/16 08:59 10/21/16 09:35 75 MG Hydromorphone HCl (Dilaudid Inj) 0.5 mg Q1H PRN IV 10/19/16 19:15 10/20/16 07:44 DC 10/20/16 06:13 0.5 MG Fentanyl (Duragesic Patch) 12 mcg Q72H TD 10/19/16 20:00 11/02/16 19:59 10/19/16 20:49 12 MCG Miscellaneous Information (Check Fentanyl Patch Placement) 1 ea QS N/A 10/20/16 00:00 11/19/16 00:00 10/21/16 08:00 1 EA Hydromorphone HCl (Dilaudid Inj) 0.5 mg Q3H PRN IV 10/20/16 10:15 10/21/16 09:24 DC 10/20/16 21:38 0.5 MG Celecoxib (CeleBREX CAP) 200 mg NOW ONCE PO 10/20/16 21:00 10/20/16 21:01 DC 10/20/16 21:18 200 MG Hydromorphone HCl (Dilaudid Tab) 2 mg Q3H PRN PO 10/21/16 10:30 11/04/16 10:29 10/21/16 10:55 2 MG Pregabalin (Lyrica Cap) 75 mg NOW ONCE PO 10/21/16 12:45 10/21/16 12:46 DC 10/21/16 12:45 75 MG Subjective Patient is seen and examined at bedside. She continues to have significant pain for which pain management has been consulted earlier today. She is not having chest pain or dyspnea, but she does have a baseline cough from COPD. She states her appetite has been decreased since surgery, but she is taking fluid and small amount of solid. She has not had nausea, vomiting, bowel issues , hematochezia, melena or hematuria. She reports an area over her sacrum that has become sore ; she states this occurred since being in the hospital and laying in bed. Review of Systems: Constitutional: No chills, No fever Respiratory: + cough, No shortness of breath Cardiovascular: + edema (left lower extremity from surgery), No chest pain Abdomen: + problem reported (decreased appetite since surgery), No GI bleeding, No constipation, No nausea, No pain Musculoskeletal: + see HPI Vital Signs Vital Signs Past 12 Hours Date Time Temp Pulse Resp B/P Pulse Ox O2 Delivery O2 Flow Rate FiO2 10/21/16 10:55 100/62 10/21/16 07:33 36.6 96 18 91/52 92 Room Air 10/21/16 03:58 102 93/55 Physical Exam Constitutional: General Apperance: too thin Level of Distress: NAD, chronically ill ENMT: hearing grossly normal Lungs: Respiratory Effort: no dyspnea Auscuitation: no wheezing, no rhonchi Cardiovascular: Heart Auscultation: RRR Abdomen: Inspection & Palpation: soft, non-distended, no tenderness, guarding & rebound Extremities: edema (of left lower extremity s/p recent left hip procedure, mild at level of ankle, entire course of left leg sore, no erythema of calf; no erythema or pain of right calf) 4 cm area of erythema over sacrum with central area with minimal fissuring. Laboratory 10/19/16 02:07 Red Blood Count 2.48, Mean Corpuscular Volume 81.5, Mean Corpuscular Hemoglobin 25.4, Mean Corpuscular Hemoglobin Concent 31.2, Mean Platelet Volume 11.1 10/19/16 11:46 Red Blood Count 2.99, Mean Corpuscular Volume 80.3, Mean Corpuscular Hemoglobin 26.8, Mean Corpuscular Hemoglobin Concent 33.3, Mean Platelet Volume 10.9, Neutrophils (%) (Auto) 85.4, Lymphocytes (%) (Auto) 7.2, Monocytes (%) (Auto) 5.3, Eosinophils (%) (Auto) 1.3, Basophils (%) (Auto) 0.2, Neutrophils # (Auto) 22.49, Lymphocytes # (Auto) 1.91, Monocytes # (Auto) 1.41, Eosinophils # (Auto) 0.35, Basophils # (Auto) 0.06 10/19/16 17:55 10/20/16 07:42 Red Blood Count 2.58, Mean Corpuscular Volume 79.1, Mean Corpuscular Hemoglobin 26.7, Mean Corpuscular Hemoglobin Concent 33.8, Mean Platelet Volume 10.4 10/20/16 20:09 10/21/16 07:22 Red Blood Count 2.77, Mean Corpuscular Volume 80.9, Mean Corpuscular Hemoglobin 27.4, Mean Corpuscular Hemoglobin Concent 33.9, Mean Platelet Volume 10.6 10/19/16 02:07 10/20/16 07:42 Test 10/19/16 02:07 10/19/16 11:46 10/19/16 14:20 10/20/16 07:42 White Blood Count 37.57 K/uL (4.8-10.8) 26.39 K/uL (4.8-10.8) 22.12 K/uL (4.8-10.8) Red Blood Count 2.48 M/uL (4.2-5.4) 2.99 M/uL (4.2-5.4) 2.58 M/uL (4.2-5.4) Hemoglobin 6.3 g/dL (12.0-16.0) 8.0 g/dL (12.0-16.0) 6.9 g/dL (12.0-16.0) Hematocrit 20.2 % (37-47) 24.0 % (37-47) 20.4 % (37-47) Mean Corpuscular Volume 81.5 fL (80-100) 80.3 fL (80-100) 79.1 fL (80-100) Mean Corpuscular Hemoglobin 25.4 pg (25-34) 26.8 pg (25-34) 26.7 pg (25-34) Mean Corpuscular Hemoglobin Concent 31.2 g/dl (32-36) 33.3 g/dl (32-36) 33.8 g/dl (32-36) Platelet Count 1157 K/uL (130-400) 1159 K/uL (130-400) 1030 K/uL (130-400) Mean Platelet Volume 11.1 fL (7.4-10.4) 10.9 fL (7.4-10.4) 10.4 fL (7.4-10.4) Neutrophils % (Manual) 88.4 % 83.1 % Lymphocytes % (Manual) 7.1 % 8.0 % Monocytes % (Manual) 0.9 % 6.2 % Eosinophils % (Manual) 1.8 % 0.9 % Basophils % (Manual) 0.9 % 0.9 % Myelocytes % 0.9 % Neutrophils # (Manual) 33.21 K/uL (1.4-6.5) 18.38 K/uL (1.4-6.5) Total Absolute Neutrophils 33.21 K/uL (1.4-6.5) 18.38 K/uL (1.4-6.5) Lymphocytes # (Manual) 2.67 K/uL (1.2-3.4) 1.77 K/uL (1.2-3.4) Total Absolute Lymphocytes 2.67 K/uL (1.2-3.4) 1.77 K/uL (1.2-3.4) Monocytes # (Manual) 0.34 K/uL (0.11-0.59) 1.37 K/uL (0.11-0.59) Eosinophils # (Manual) 0.68 K/uL (0-0.5) 0.20 K/uL (0-0.5) Basophils # (Manual) 0.34 K/uL (0-0.2) 0.20 K/uL (0-0.2) Myelocytes # 0.34 K/uL (0-0) Anisocytosis PRESENT PRESENT PRESENT Ovalocytes 1+ Schistocytes OCCASIONAL Anion Gap 8.0 mmol/L (3-11) 10.0 mmol/L (3-11) Est Creatinine Clear Calc Drug Dose 37.0 ml/min 52.5 ml/min Estimated GFR () 65.9 99.4 Estimated GFR (Non- 56.8 85.8 BUN/Creatinine Ratio 15.9 (10-20) 17.5 (10-20) Lactic Acid Level 2.1 mmol/L (0.4-2.0) 1.6 mmol/L (0.4-2.0) Calcium Level 7.2 mg/dl (8.5-10.1) 7.6 mg/dl (8.5-10.1) Magnesium Level 1.7 mg/dl (1.8-2.4) 2.1 mg/dl (1.8-2.4) Thyroid Stimulating Hormone (TSH) 1.260 uIu/ml (0.300-4.500) Neutrophils (%) (Auto) 85.4 % Lymphocytes (%) (Auto) 7.2 % Monocytes (%) (Auto) 5.3 % Eosinophils (%) (Auto) 1.3 % Basophils (%) (Auto) 0.2 % Neutrophils # (Auto) 22.49 K/uL (1.4-6.5) Lymphocytes # (Auto) 1.91 K/uL (1.2-3.4) Monocytes # (Auto) 1.41 K/uL (0.11-0.59) Eosinophils # (Auto) 0.35 K/uL (0-0.5) Basophils # (Auto) 0.06 K/uL (0-0.2) RDW Standard Deviation 68.2 fL (36.4-46.3) 69.8 fL (36.4-46.3) RDW Coefficient of Variation 26.0 % (11.5-14.5) 26.3 % (11.5-14.5) Immature Granulocyte % (Auto) 0.6 % Immature Granulocyte # (Auto) 0.17 K/uL (0.00-0.02) Nucleated RBC Absolute Count (auto) 0.10 K/uL (0-0) 0.09 K/uL (0-0) Nucleated Red Blood Cells % 0.4 % 0.4 % Polychromasia 1+ Basophilic Stippling 1+ 1+ Target Cells 1+ 1+ Stool Occult Blood NEGATIVE (NEGATIVE) Metamyelocytes % 0.9 % Metamyelocytes # 0.20 K/uL (0-0) Platelet Estimate INCREASED Giant Platelets 3+ Hypochromasia PRESENT Test 10/21/16 07:22 White Blood Count 14.03 K/uL (4.8-10.8) Red Blood Count 2.77 M/uL (4.2-5.4) Hemoglobin 7.6 g/dL (12.0-16.0) Hematocrit 22.4 % (37-47) Mean Corpuscular Volume 80.9 fL (80-100) Mean Corpuscular Hemoglobin 27.4 pg (25-34) Mean Corpuscular Hemoglobin Concent 33.9 g/dl (32-36) Platelet Count 845 K/uL (130-400) Mean Platelet Volume 10.6 fL (7.4-10.4) RDW Standard Deviation 64.7 fL (36.4-46.3) RDW Coefficient of Variation 23.8 % (11.5-14.5) Neutrophils % (Manual) 78.2 % Lymphocytes % (Manual) 6.4 % Monocytes % (Manual) 7.3 % Eosinophils % (Manual) 3.6 % Basophils % (Manual) 3.6 % Myelocytes % 0.9 % Neutrophils # (Manual) 10.97 K/uL (1.4-6.5) Total Absolute Neutrophils 10.97 K/uL (1.4-6.5) Lymphocytes # (Manual) 0.90 K/uL (1.2-3.4) Total Absolute Lymphocytes 0.90 K/uL (1.2-3.4) Monocytes # (Manual) 1.02 K/uL (0.11-0.59) Eosinophils # (Manual) 0.51 K/uL (0-0.5) Basophils # (Manual) 0.51 K/uL (0-0.2) Myelocytes # 0.13 K/uL (0-0) Basophilic Stippling 1+ Anisocytosis PRESENT Assessment & Plan (1) Essential thrombocythemia Assessment & Plan: Patient has had ET diagnosis for past 2-3 years. She was previously treated with anagrelide, which per the patient did not decrease her PLT count. She then was trialed on interferon and Hydrea, both with poor tolerability. Hematology service established care with the patient back in 2015 when she was admitted for GI bleed. She has since followed up with our office and Dr. Chavez tried to place patient back on Hydrea 500 mg daily, but she took 1 tablet and felt generalized paresthesias so she discontinued the medication (this apparently occurred previously with Hydrea). Discussed with Dr. Chavez about restarting patient on anagrelide for PLT, but called the hospital inpatient pharmacy and this is not on formulary. 10/21/16: Wait to start Hydrea until Hgb is stable in postop period; patient appears to have had some PLT consumption, as expected, with recent surgery and now around 800K today. Patient was on Lovenox 40 mg daily SQ for VTE prophylaxis- but has been held due to postop anemia from blood loss. Recommended to restart Lovenox once Hgb remains stable. Recommend continuing anticoagulation for 4 weeks after procedure due to risks of essential thrombocythemia and PLT > 1 million, recent surgery, and expected immobility after surgery. (2) Anemia Status: Chronic Assessment & Plan: Improved to around 10 g/dL Hgb range as recent as 08/2016 and on admission at 10.5. Had GI bleed back in 07/2016. Also, has MDS/MPN and requires periodic blood transfusion support. After surgery, will likely exacerbate from blood loss. Transfuse if Hgb < 7 g/ dL or symptomatic anemia. 10/21/16: Patient has required 4 units PRBC post surgery, Hgb in 7 range today, continue to monitor CBC daily. (3) Pressure ulcer of sacral region, stage 1 Assessment & Plan: Informed Dr. Jackson about patient reporting this finding and I visualized the area myself helping the patient to bed. He stated he will address. I performed a history and physical examination of the patient and discussed the management with Bridgette Mendoza PA-C . I reviewed her note and agree with the documented findings and plan of care. In summary she is the case of essential thrombocythemia for the last 2 to 3 years, as per the patient she could not tolerate and anagralide, hydroxyurea oriented current treatment, recent blood workup shows significant rise in the platelet count which is expected in her case, she says that high risk for thrombotic complications, would consider for Lovenox prophylaxis and would like to restart hydroxyurea. Dr. Mainor Chavez Hem/Onc (This note was completed using the dictation program Fluency Direct. As such, there may be misspellings, word substitutions, or other variations that should not change the essence of the clinical content of this encounter note. If there is need for further clarification, please direct questions to the provider listed above.)
[2016-10-21] MEDS ORDERED: HYDROmorphone INJ 0.5 MG/0.5 ML SYR IV PRN (21:00)
[2016-10-21] MEDS: SENNA 8.6 MG TAB PO SCH (21:00)
[2016-10-21] MEDS: TEMAZEPAM 15 MG CAP PO SCH (21:25)
[2016-10-21] MEDS: PREGABALIN 75 MG CAP PO SCH (21:26)
[2016-10-21] MEDS: AMITRIPTYLINE HCL 25 MG TAB PO SCH (21:27)
[2016-10-22] MEDS: ACETAMINOPHEN 325 MG TAB PO PRN
[2016-10-22 01:42] VITALS: BP 91/49
[2016-10-22] MEDS: HYDROmorphone HCL 2 MG TAB PO PRN ×5 (06:25→22:13)
[2016-10-22 07:05] VITALS: BP 81/44; PULSE 90; TEMP 36.7; O2SAT 91
[2016-10-22] MEDS: CHECK FENTANYL PATCH PLACEMENT SCH ×2 (07:44→15:32)
[2016-10-22 07:46] VITALS: BP 154/70; PULSE 84; TEMP 37.1; O2SAT 92
[2016-10-22] MEDS: MULTIVITAMIN TAB PO SCH (07:46)
[2016-10-22] MEDS: GUAIFENESIN 600 MG TABCR PO SCH ×2 (07:46→19:19)
[2016-10-22] MEDS: NICOTINE 14 MG/24 HR TDSY TD SCH (07:46)
[2016-10-22] MEDS: SENNA 8.6 MG TAB PO SCH (07:46)
[2016-10-22] MEDS: FLUTICASONE/SALMETEROL 250/50 (ADVAIR) 14 PUFF/1 INHALER INH SCH ×2 (07:46→21:28)
[2016-10-22] MEDS: LORATADINE 10 MG TAB PO SCH (07:46)
[2016-10-22] MEDS: CLOPIDOGREL BISULFATE 75 MG TAB PO SCH (07:47)
[2016-10-22] MEDS: PREGABALIN 75 MG CAP PO SCH ×2 (07:49→21:25)
[2016-10-22] MEDS: PANTOprazole SOD 40 MG TAB PO SCH ×2 (07:50→21:28)
[2016-10-22 07:59] LABS: HEMATOCRIT 24.7 % (37-47); MEAN CELL VOLUME 80.2 fL (80-100); MEAN CORPUSCULAR HEMOGLOBIN 26.6 pg (25-34); MEAN CORPUSCULAR HGB CONC 33.2 g/dl (32-36); MEAN PLATELET VOLUME 10.8 fL (7.4-10.4); PLATELET COUNT 1022 K/uL (130-400); RED BLOOD COUNT 3.08 M/uL (4.2-5.4); WHITE BLOOD COUNT 15.46 K/uL (4.8-10.8)
[2016-10-22 08:00] LABS: ANISOCYTOSIS PRESENT; BASO ABS # 0.28 K/uL (0-0.2); BASOPHIL % 1.8 %; COMPLETE YES; EOSINOPHIL % 6.2 %; GIANT PLATELETS 1+; LYMPH ABS # 2.88 K/uL (1.2-3.4); LYMPHOCYTE % 18.6 %; NEUTROPHILS % 70.7 %
--- NOTE | 2016-10-22 08:48 | Orthopedic Progress Note ---
Orthopedic Progress Note Date of Service Oct 22, 2016. Subjective Post OP Day: 4 Additional Notes: DROWSY STILL PAINFUL Objective hip located, dressing C/D/I, toes mobile THIGH MOD SWELLING BUT SOFT Date Time Temp Pulse Resp B/P Pulse Ox O2 Delivery O2 Flow Rate FiO2 10/22/16 07:46 37.1 84 17 154/70 92 Room Air 10/22/16 07:05 36.7 90 17 81/44 91 Room Air 10/22/16 01:42 91/49 10/21/16 23:45 Room Air 10/21/16 23:43 37.3 99 18 87/44 95 Room Air 10/21/16 19:40 37.8 96 16 100/64 96 Room Air 10/21/16 16:30 97 Room Air 10/21/16 15:10 36.6 93 18 85/52 97 Room Air 10/21/16 10:55 100/62 10/21/16 10:44 102 Laboratory Results 24 Hours: Test 10/21/16 15:57 10/22/16 06:35 Hematocrit 23.0 % 24.7 % Hemoglobin 7.6 g/dL 8.2 g/dL White Blood Count 15.46 K/uL Red Blood Count 3.08 M/uL Mean Corpuscular Volume 80.2 fL Mean Corpuscular Hemoglobin 26.6 pg Mean Corpuscular Hemoglobin Concent 33.2 g/dl Platelet Count 1022 K/uL Mean Platelet Volume 10.8 fL Assessment & Plan Assessment: POD# 4 SP REMOVAL HARDWARE, CONVERSION TO LEFT IKER THROMBOCYTHEMIA H/O GI BLEED ACUTE BLOOD LOSS ANEMIA Plan: ANEMIA- HGB 9.1 AFTER 2ND TRANSFUSION; NOW DOWN TO 7.6 STABLE NOW MEDICAL MANAGEMENT PT/OT TOLERATED LOVENOX HELD AFTER DISCUSSION WITH DR REEVES. WILL DISCUSS PLAVIX USE WELL PT STATING SHE WAS USING HIGHER DOSE FENTANYL PATCHES AT HOME. CONTINUES TO HAVE MODERATE PAIN. SOME NARCOTICS DECREASED DUE TO LOW BP. WILL CONSULT PAIN MANAGEMENT CONSULT APPRECIATED LIKELY SOME ELEMENT OF NARCOTIC WITHDRAWL EXTREMELY HIGH RISK PATIENT (1) Essential thrombocythemia (2) Anemia Chronic (3) Pressure ulcer of sacral region, stage 1 Inhouse Planning Pain Management: Ultram, Dilaudid, other (Fentanyl patch) DVT Prophylaxis: TEDs, SCDs, other (PLAVIX) Discharge Planning Discharge Planning: rehab hospital ([facility])
[2016-10-22] MEDS: TRAMADOL HCL 50 MG TAB PO PRN ×3 (10:45→22:11)
[2016-10-22 15:24] VITALS: BP 98/61; PULSE 96; TEMP 37.1; O2SAT 95
[2016-10-22 16:00] VITALS: O2SAT 95
--- NOTE | 2016-10-22 17:40 | Progress Note ---
Internal Med Progress Note Date of Service: Oct 22, 2016. Provider Documentation: SUBJECTIVE: Patient is seen and examined at bedside. States Left hip is much improved and is able to ambulate today. Offers no other complaints. OBJECTIVE: Vital Signs-as noted below Physical Exam: General Appearance:Thin, fragile, no apparent distress Head: normocephalic, Atraumatic Eyes: normal inspection, EOMI, PERRLA, Anicteric Neck: supple, no JVD, Trachea midline Respiratory/Chest: Normal breath sounds, CTA, No accessory muscle use Cardiovascular: S1, S2, Tachycardia, No murmur Abdomen/GI:Soft, Non tender, Bowel sounds present Extremities/Musculoskelatal:normal inspection, Left LE in surgical Bandage Neurologic/Psych:AAOX3, grossly no focal neurological deficits Skin: normal color, warm Lab data as noted below. ASSESSMENT & PLAN: ASSESSMENT & PLAN: Patient is a 76 yr old female with history of left hip fracture who failed ORIF presents to the ED with worsening hip pain following a fall 2 days ago INTRACTABLE LEFT HIP PAIN - KNOWN H/O LEFT HIP FRACTURE NONUNION, NOW WITH RECENT FALL CT left hip:Incomplete healing of the mildly displaced, impacted left femoral neck fracture without significant interval healing Follows with Dr. Avendaño as outpatient was to have surgery on 09/30 but d/t pneumonia and recent GI bleed this was postponed Left IKER on 10/18/16 S/P Left total left hip arthroplasty: Post OP #4 Pain control per pain management BP stable PT/OT evaluation Orthopaedics on board S/P 4 PRBCs after surgery Hb:8.2 today: stable Will resume Lovenox tomorrow ACUTE BLOOD LOSS ANEMIA: s/p 4 units PRBC Hb improved to 9.1 after transfusion and dropped to 7.6 >>> 8.2 Monitor Hb To resume Lovenox tomorrow Minimize Iatrogenic blood loss HX OF LEFT HIP FRACTURE NON UNION: S/P Left IKER ON 10/18/16 Continue Plavix H/O Essential Thrombocythemia: follows up with Dr Mainor Chavez: Needs Lovenox for 4 weeks post OP MYELODYSPLASTIC SYNDROME Follows with Dr. Mainor Chavez Likely Essential Thrombocythemia per Dr. Chavez: Discussed with on Leukocytosis worsened likely secondary to Decadron, trending down Platelet count: 1.0 million Very high risk for VTE- continue with lovenox daily for prophylaxis for 4 weeks Plavix resumed. Plan to resume lovenox tomorrow Patient continues to smoke, cessation counseling Heme/onc on board H/O Intolerance to Interferon therapy Plan to restarting hydroxyurea: 500 mg every other day when Hb stable Needs Out patient FU with heme/onch COPD recent pneumonia CXR without consolidations continue home inhalers H/O GI BLEED Last EGD in 09/20 with nonbleeding duodenal ulcer continue PPI Hgb:8.2 today Iron Studies - negative for iron deficiency anemia follow H&H S/P PRBCs FOBT is negative VITAMIN D DEFICIENCY Vit D levels 9.1 Will replace with Vit D 64460 units q week x 6 weeks followed by 1000 units daily Need to monitor outpatient DEPRESSION/INSOMNIA continue Amitriptyline, Lyrica, Restoril TOBACCO ABUSE Cessation counseling given H/O BREAST CA s/p mastectomy in the DVT PROPHYLAXIS: high risk, Sq Lovenox on hold CODE STATUS: FULL CODE per my discussion with the patient and her daughter DISPO: Lives with her daughter at home PT/OT Social service consulted Needs Rehab placement Vital Signs: Date Time Temp Pulse Resp B/P Pulse Ox O2 Delivery O2 Flow Rate FiO2 10/22/16 16:00 95 Room Air 10/22/16 15:24 37.1 96 16 98/61 95 Room Air 10/22/16 08:00 Room Air 10/22/16 07:46 37.1 84 17 154/70 92 Room Air 10/22/16 07:05 36.7 90 17 81/44 91 Room Air 10/22/16 01:42 91/49 10/21/16 23:45 Room Air 10/21/16 23:43 37.3 99 18 87/44 95 Room Air 10/21/16 19:40 37.8 96 16 100/64 96 Room Air Lab Results: Results Past 24 Hours Test 10/22/16 06:35 Range/Units White Blood Count 15.46 4.8-10.8 K/uL Red Blood Count 3.08 4.2-5.4 M/uL Hemoglobin 8.2 12.0-16.0 g/dL Hematocrit 24.7 37-47 % Mean Corpuscular Volume 80.2 80-100 fL Mean Corpuscular Hemoglobin 26.6 25-34 pg Mean Corpuscular Hemoglobin Concent 33.2 32-36 g/dl Platelet Count 1022 130-400 K/uL Mean Platelet Volume 10.8 7.4-10.4 fL RDW Standard Deviation 68.7 36.4-46.3 fL RDW Coefficient of Variation 25.3 11.5-14.5 % Nucleated RBC Absolute Count (auto) 0.09 0-0 K/uL Neutrophils % (Manual) 70.7 % Lymphocytes % (Manual) 18.6 % Monocytes % (Manual) 2.7 % Eosinophils % (Manual) 6.2 % Basophils % (Manual) 1.8 % Nucleated Red Blood Cells % 0.6 % Neutrophils # (Manual) 10.93 1.4-6.5 K/uL Total Absolute Neutrophils 10.93 1.4-6.5 K/uL Lymphocytes # (Manual) 2.88 1.2-3.4 K/uL Total Absolute Lymphocytes 2.88 1.2-3.4 K/uL Monocytes # (Manual) 0.42 0.11-0.59 K/uL Eosinophils # (Manual) 0.96 0-0.5 K/uL Basophils # (Manual) 0.28 0-0.2 K/uL Giant Platelets 1+ Basophilic Stippling 1+ Anisocytosis PRESENT
[2016-10-22] MEDS: TEMAZEPAM 15 MG CAP PO SCH (21:25)
[2016-10-22] MEDS: FENTANYL 12 MCG/HR TDSY TD SCH (21:25)
[2016-10-22] MEDS: AMITRIPTYLINE HCL 25 MG TAB PO SCH (21:27)
[2016-10-22] MEDS: FENTANYL PATCH REMOVE & WASTE SCH (21:30)
[2016-10-22 22:46] VITALS: BP 93/51; PULSE 99; TEMP 37.2; O2SAT 92
[2016-10-22] MEDS ORDERED: NURSING VERBAL MED ORDER ONE (23:30)
[2016-10-23] MEDS: CHECK FENTANYL PATCH PLACEMENT SCH ×4 (00:24→23:40)
[2016-10-23] MEDS: HYDROmorphone HCL 2 MG TAB PO PRN ×4 (05:51→23:41)
[2016-10-23] MEDS: ACETAMINOPHEN 325 MG TAB PO PRN ×2 (06:13→17:00)
[2016-10-23 07:02] VITALS: BP 89/48; PULSE 93; TEMP 37; O2SAT 94
[2016-10-23 07:22] LABS: HEMATOCRIT 24.6 % (37-47); MEAN CELL VOLUME 81.7 fL (80-100); MEAN CORPUSCULAR HEMOGLOBIN 26.2 pg (25-34); MEAN CORPUSCULAR HGB CONC 32.1 g/dl (32-36); MEAN PLATELET VOLUME 11.6 fL (7.4-10.4); PLATELET COUNT 1101 K/uL (130-400); RED BLOOD COUNT 3.01 M/uL (4.2-5.4); WHITE BLOOD COUNT 18.03 K/uL (4.8-10.8)
[2016-10-23 07:27] LABS: ANISOCYTOSIS PRESENT; BASO ABS # 0.16 K/uL (0-0.2); BASOPHIL % 0.9 %; COMPLETE YES; EOSINOPHIL % 10.5 %; GIANT PLATELETS 1+; LARGE PLATELETS 2+; LYMPH ABS # 3.16 K/uL (1.2-3.4); LYMPHOCYTE % 17.5 %; MYELOCYTE % 0.9 %; NEUTROPHILS % 69.3 %; TOXIC GRANULATION 1+
[2016-10-23] MEDS: PREGABALIN 75 MG CAP PO SCH ×2 (09:37→20:30)
[2016-10-23] MEDS: LORATADINE 10 MG TAB PO SCH (09:39)
[2016-10-23] MEDS: NICOTINE 14 MG/24 HR TDSY TD SCH (09:39)
[2016-10-23] MEDS: GUAIFENESIN 600 MG TABCR PO SCH ×2 (09:39→20:28)
[2016-10-23] MEDS: FLUTICASONE/SALMETEROL 250/50 (ADVAIR) 14 PUFF/1 INHALER INH SCH ×2 (09:40→20:29)
[2016-10-23] MEDS: PANTOprazole SOD 40 MG TAB PO SCH ×2 (09:40→20:30)
[2016-10-23] MEDS: MULTIVITAMIN TAB PO SCH (09:40)
[2016-10-23] MEDS: CLOPIDOGREL BISULFATE 75 MG TAB PO SCH (09:40)
[2016-10-23] MEDS: TRAMADOL HCL 50 MG TAB PO PRN ×3 (09:49→20:29)
[2016-10-23 14:14] LABS: HEMATOCRIT 24.5 % (37-47)
[2016-10-23 15:05] VITALS: BP 88/59; PULSE 96; TEMP 37.5; O2SAT 95
[2016-10-23 15:12] VITALS: BP 96/40
--- NOTE | 2016-10-23 15:30 | Progress Note ---
Internal Med Progress Note Date of Service: Oct 23, 2016. Provider Documentation: SUBJECTIVE: Patient is seen and examined at bedside. Feels tired otherwise feels well. Offers no other complaints. Denies bleeding. OBJECTIVE: Vital Signs-as noted below Physical Exam: General Appearance:Thin, fragile, no apparent distress Head: normocephalic, Atraumatic Eyes: normal inspection, EOMI, PERRLA, Anicteric Neck: supple, no JVD, Trachea midline Respiratory/Chest: Normal breath sounds, CTA, No accessory muscle use Cardiovascular: S1, S2, Tachycardia, No murmur Abdomen/GI:Soft, Non tender, Bowel sounds present Extremities/Musculoskelatal:normal inspection, Left LE in surgical Bandage Neurologic/Psych:AAOX3, grossly no focal neurological deficits Skin: normal color, warm Lab data as noted below. ASSESSMENT & PLAN: ASSESSMENT & PLAN: Patient is a 76 yr old female with history of left hip fracture who failed ORIF presents to the ED with worsening hip pain following a fall 2 days ago INTRACTABLE LEFT HIP PAIN - KNOWN H/O LEFT HIP FRACTURE NONUNION, NOW WITH RECENT FALL CT left hip:Incomplete healing of the mildly displaced, impacted left femoral neck fracture without significant interval healing Follows with Dr. Avendaño as outpatient was to have surgery on 09/30 but d/t pneumonia and recent GI bleed this was postponed Left IKER on 10/18/16 S/P Left total left hip arthroplasty: Post OP #5 Pain control per pain management BP stable PT/OT evaluation Orthopaedics on board S/P 4 PRBCs after surgery Hb:7.9 today: stable Will resume Lovenox today: Patient agreeable to plan as patient is high risk for clotting as well. ACUTE BLOOD LOSS ANEMIA: s/p 4 units PRBC Hb improved to 9.1 after transfusion and dropped to 7.6 >>> 8.2 >>>7.9 Monitor Hb Will resume Lovenox today Minimize Iatrogenic blood loss HX OF LEFT HIP FRACTURE NON UNION: S/P Left IKER ON 10/18/16 Continue Plavix, lovenox H/O Essential Thrombocythemia: follows up with Dr Mainor Chavez: Needs Lovenox for 4 weeks post OP MYELODYSPLASTIC SYNDROME Follows with Dr. Mainor Chavez Likely Essential Thrombocythemia per Dr. Chavez: Discussed with on Leukocytosis worsened likely secondary to Decadron, trending down Platelet count: 1.0 million Very high risk for VTE- continue with lovenox daily for prophylaxis for 4 weeks Plavix, lovenox resumed. Patient continues to smoke, cessation counseling Heme/onc on board H/O Intolerance to Interferon therapy Plan to restarting hydroxyurea: 500 mg every other day when Hb stable Needs Out patient FU with heme/onch COPD recent pneumonia CXR without consolidations continue home inhalers H/O GI BLEED Last EGD in 09/20 with nonbleeding duodenal ulcer continue PPI Hgb:7.9 today Iron Studies - negative for iron deficiency anemia follow H&H S/P PRBCs FOBT is negative VITAMIN D DEFICIENCY Vit D levels 9.1 Will replace with Vit D 30807 units q week x 6 weeks followed by 1000 units daily Need to monitor outpatient DEPRESSION/INSOMNIA continue Amitriptyline, Lyrica, Restoril TOBACCO ABUSE Cessation counseling given H/O BREAST CA s/p mastectomy in the DVT PROPHYLAXIS: high risk, Sq Lovenox CODE STATUS: FULL CODE per my discussion with the patient and her daughter DISPO: PT/OT Social service on board Needs Rehab placement Vital Signs: Date Time Temp Pulse Resp B/P Pulse Ox O2 Delivery O2 Flow Rate FiO2 10/23/16 15:12 96/40 10/23/16 15:05 37.5 96 18 88/59 95 Room Air 10/23/16 08:00 Room Air 10/23/16 07:02 37.0 93 16 89/48 94 Room Air 10/23/16 00:10 Room Air 10/22/16 22:46 37.2 99 16 93/51 92 Room Air 10/22/16 16:00 95 Room Air Lab Results: Results Past 24 Hours Test 10/23/16 06:10 10/23/16 14:06 Range/Units White Blood Count 18.03 4.8-10.8 K/uL Red Blood Count 3.01 4.2-5.4 M/uL Hemoglobin 7.9 7.9 12.0-16.0 g/dL Hematocrit 24.6 24.5 37-47 % Mean Corpuscular Volume 81.7 80-100 fL Mean Corpuscular Hemoglobin 26.2 25-34 pg Mean Corpuscular Hemoglobin Concent 32.1 32-36 g/dl Platelet Count 1101 130-400 K/uL Mean Platelet Volume 11.6 7.4-10.4 fL RDW Standard Deviation 72.8 36.4-46.3 fL RDW Coefficient of Variation 26.1 11.5-14.5 % Nucleated RBC Absolute Count (auto) 0.11 0-0 K/uL Neutrophils % (Manual) 69.3 % Lymphocytes % (Manual) 17.5 % Monocytes % (Manual) 0.9 % Eosinophils % (Manual) 10.5 % Basophils % (Manual) 0.9 % Myelocytes % 0.9 % Nucleated Red Blood Cells % 0.6 % Neutrophils # (Manual) 12.49 1.4-6.5 K/uL Total Absolute Neutrophils 12.49 1.4-6.5 K/uL Lymphocytes # (Manual) 3.16 1.2-3.4 K/uL Total Absolute Lymphocytes 3.16 1.2-3.4 K/uL Monocytes # (Manual) 0.16 0.11-0.59 K/uL Eosinophils # (Manual) 1.89 0-0.5 K/uL Basophils # (Manual) 0.16 0-0.2 K/uL Myelocytes # 0.16 0-0 K/uL Toxic Granulation 1+ Large Platelets 2+ Giant Platelets 1+ Basophilic Stippling 1+ Anisocytosis PRESENT
[2016-10-23] MEDS ORDERED: ENOXAPARIN 30 MG/0.3 ML SYR SQ ONE (16:00)
[2016-10-23] MEDS: TEMAZEPAM 15 MG CAP PO SCH (20:30)
[2016-10-23] MEDS: SENNA 8.6 MG TAB PO SCH (20:30)
[2016-10-23] MEDS: AMITRIPTYLINE HCL 25 MG TAB PO SCH (20:30)
[2016-10-23 22:20] LABS: HEMATOCRIT 24.3 % (37-47)
[2016-10-23 23:30] VITALS: BP 92/55; PULSE 93; TEMP 36.9; O2SAT 94
[2016-10-24 07:02] VITALS: BP 95/59; PULSE 98; TEMP 37; O2SAT 91
[2016-10-24] MEDS: CHECK FENTANYL PATCH PLACEMENT SCH ×3 (07:50→23:30)
[2016-10-24] MEDS: PREGABALIN 75 MG CAP PO SCH ×2 (07:50→21:35)
[2016-10-24] MEDS: TRAMADOL HCL 50 MG TAB PO PRN ×4 (07:50→21:28)
[2016-10-24] MEDS: FLUTICASONE/SALMETEROL 250/50 (ADVAIR) 14 PUFF/1 INHALER INH SCH ×2 (07:51→21:26)
[2016-10-24 07:53] LABS: MEAN CELL VOLUME 83.6 fL (80-100); MEAN CORPUSCULAR HEMOGLOBIN 26.3 pg (25-34); MEAN CORPUSCULAR HGB CONC 31.5 g/dl (32-36); MEAN PLATELET VOLUME 10.9 fL (7.4-10.4); PLATELET COUNT 1093 K/uL (130-400); RED BLOOD COUNT 3.23 M/uL (4.2-5.4); WHITE BLOOD COUNT 20.96 K/uL (4.8-10.8)
--- NOTE | 2016-10-24 07:57 | Orthopedic Progress Note ---
Orthopedic Progress Note Date of Service Oct 24, 2016. Subjective Post OP Day: 6 Reports: feeling well, Denies: complaints Objective calves soft nontender, N/V intact, dressing C/D/I, A&O x3, toes mobile Date Time Temp Pulse Resp B/P Pulse Ox O2 Delivery O2 Flow Rate FiO2 10/24/16 07:02 37.0 98 16 95/59 91 Room Air 10/23/16 23:40 Room Air 10/23/16 23:30 36.9 93 16 92/55 94 Room Air 10/23/16 15:15 Room Air 10/23/16 15:12 96/40 10/23/16 15:05 37.5 96 18 88/59 95 Room Air 10/23/16 08:00 Room Air Laboratory Results 24 Hours: Test 10/23/16 14:06 10/23/16 22:13 10/24/16 07:42 Hematocrit 24.5 % 24.3 % Hemoglobin 7.9 g/dL 7.7 g/dL Assessment & Plan Assessment: POD# 6 SP REMOVAL HARDWARE, CONVERSION TO LEFT IKER THROMBOCYTHEMIA H/O GI BLEED ACUTE BLOOD LOSS ANEMIA Plan: Planning for [facility] Plan for dressing change on Monday Continue PT/OT As per Med Service DC instructions added to EMR (1) Essential thrombocythemia (2) Anemia Chronic (3) Pressure ulcer of sacral region, stage 1 Inhouse Planning Pain Management: Ultram, Dilaudid, PO Tylenol, other (Fentanyl patch) DVT Prophylaxis: TEDs, SCDs, other (PLAVIX) Discharge Planning Discharge Planning: rehab hospital ([facility])
--- NOTE | 2016-10-24 08:07 | Discharge Instructions ---
Discharge Instructions Admission Reason for Admission: Left Hip Pain Discharge Discharge Diagnosis / Problem: Non Union Left Hip Fx with retained hardware Discharge Goals Goal(s): Decrease discomfort, Improve function Activity Recommendations Activity Level: Assistance Required Therapies: Physical Therapy (Direct Anterior Hip PT/Precautions), Occupational Therapy (ADL's and transfers) Weightbearing Status: Left weightbearing (as tolerated) . Additional Information Patient informed of condition: Yes Advance Directives: No DNR: No Level of Care: Acute Rehab Communicable Disease: No Prognosis: Stable Sanchez Catheter: No Instructions / Follow-Up Instructions / Follow-Up ACTIVITY RECOMMENDATIONS: SELF CARE INSTRUCTIONS AFTER TOTAL HIP REPLACEMENT : Direct Anterior Approach Until the incision and soft tissues around your hip have healed, there is a possibility that the hip prosthesis could dislocate. A. Hip flexion ( Up & Down out of chair or steps ) may be difficult. This is normal. B. Numbness in front of the thigh is also normal for a few weeks. C. Use hand rails when walking on stairs. D. Wear low heeled shoes with non-slip soles. E. Be sure that your floors are free of things that could trip you - throw rugs , electrical cords, small objects. Avoid wet and waxed floors, especially with crutches and canes. F. Try to walk several times a day with rest periods between. G. Continue with all the exercises taught to you in the hospital. Again, make walking a part of your daily routine. SPECIAL CARE INSTRUCTIONS: VERY IMPORTANT TO READ AND REVIEW A. You may still be at risk for phlebitis and blood clots. 1. Wear surgical stockings (GRACIELA hose) for 2 weeks after surgery to improve circulation and reduce swelling. 2. Take Aspirin 81mg twice daily for 4 weeks or as directed by your doctor. This is your blood thinner. 3. High risk patients may be prescribed a stronger blood thinner if necessary. 4. If you are on Coumadin normally, your family doctor/furnace charger should monitor your blood work. Expect a phone call the day of or the day after bloodwork is drawn to adjust your dosage. B. You must take antibiotics before having dental work, bladder, bowel and other surgery. Your doctor will provide you with a permanent card to carry describing precautions. C. Call [facility] if you have a fever, redness or swelling around the incision, cloudy drainage from incision, or sudden increase in pain in your hip, not relieved by your regular pain medication. D. Please call the office at if you have any concerns or questions about your operation or recovery. * YOU MAY SHOWER, NO TUB BATHS UNTIL CLEARED BY YOUR DOCTOR. - Keep an extra close eye on the top portion of your incision. Be sure to keep clean & dry. * WEAR GRACIELA HOSE 20 HOURS PER DAY FOR 2 WEEKS. * YOU MAY PROGRESS FROM A WALKER, TO A CANE, TO INDEPENDENT AT YOUR OWN PACE. * MOST PATIENTS WILL HAVE HOME NURSING FOR THERAPY. IF YOU DECIDE TO DO OUTPATIENT PHYSICAL THERAPY, PLEASE SCHEDULE THIS 3 TIMES PER WEEK. FOLLOW UP VISIT: If appointment is not already scheduled: Please call [facility] to make a follow-up appointment for 2 weeks after your surgery at . Current Hospital Diet Patient's current hospital diet: Regular Diet Discharge Diet Recommended Diet: Regular Diet Procedures Procedures Performed: Uncemented Pending Studies Studies pending at discharge: no Physician Orders On Transfer Dressing Changes: Change dressing Monday; 10/26/16 Vital Signs: routine Medical Emergencies . Who to Call and When: Medical Emergencies: If at any time you feel your situation is an emergency, please call 911 immediately. . Non-Emergent Contact Non-Emergency issues call your: Surgeon Call Non-Emergent contact if: temperature is above 101.5, your pain is not controlled, your pain is worsening, wound has increased drainage, wound has increased redness . . "Provider Documentation" section prepared by Panfilo Alanis. Core Measure Problem Core Measures: None [place] Drug Monitoring Program Search Results: patient reviewed within database, see additional documentation Drug Monitoring Findings: No documented RX's noted for the last year for ANY Fentanyl patches prescribed in [place].
[2016-10-24 08:13] LABS: ANISOCYTOSIS PRESENT; GIANT PLATELETS 1+; PLT ESTIMATE INCREASED; POIKILOCYTOSIS PRESENT
[2016-10-24 08:14] LABS: BASO ABS # 0.38 K/uL (0-0.2); BASOPHIL % 1.8 %; COMPLETE YES; LYMPHOCYTE % 14.3 %; MYELOCYTE % 0.9 %; NEUTROPHILS % 70.5 %
[2016-10-24] MEDS: LORATADINE 10 MG TAB PO SCH (09:10)
[2016-10-24] MEDS: NICOTINE 14 MG/24 HR TDSY TD SCH (09:10)
[2016-10-24] MEDS: PANTOprazole SOD 40 MG TAB PO SCH ×2 (09:10→21:30)
[2016-10-24] MEDS: ENOXAPARIN 30 MG/0.3 ML SYR SQ SCH (09:10)
[2016-10-24] MEDS: CLOPIDOGREL BISULFATE 75 MG TAB PO SCH (09:11)
[2016-10-24] MEDS: GUAIFENESIN 600 MG TABCR PO SCH ×2 (09:11→19:32)
[2016-10-24] MEDS: MULTIVITAMIN TAB PO SCH (09:11)
[2016-10-24] MEDS: HYDROmorphone HCL 2 MG TAB PO PRN ×4 (10:14→23:30)
[2016-10-24 15:05] VITALS: BP 111/66; PULSE 99; TEMP 37.1; O2SAT 92
--- NOTE | 2016-10-24 15:25 | Progress Note ---
Internal Med Progress Note Date of Service: Oct 24, 2016. Provider Documentation: SUBJECTIVE: Patient is seen and examined at bedside. Feels well. She is worried about the side effects from Hydroxyurea. Offers no other complaints. Denies bleeding. OBJECTIVE: Vital Signs-as noted below Physical Exam: General Appearance:Thin, fragile, no apparent distress Head: normocephalic, Atraumatic Eyes: normal inspection, EOMI, PERRLA, Anicteric Neck: supple, no JVD, Trachea midline Respiratory/Chest: Normal breath sounds, CTA, No accessory muscle use Cardiovascular: S1, S2, Tachycardia, No murmur Abdomen/GI:Soft, Non tender, Bowel sounds present Extremities/Musculoskelatal:normal inspection, Left LE in surgical Bandage Neurologic/Psych:AAOX3, grossly no focal neurological deficits Skin: normal color, warm Lab data as noted below. ASSESSMENT & PLAN: ASSESSMENT & PLAN: Patient is a 76 yr old female with history of left hip fracture who failed ORIF presents to the ED with worsening hip pain following a fall 2 days ago INTRACTABLE LEFT HIP PAIN - KNOWN H/O LEFT HIP FRACTURE NONUNION, NOW WITH RECENT FALL CT left hip:Incomplete healing of the mildly displaced, impacted left femoral neck fracture without significant interval healing Follows with Dr. Avendaño as outpatient was to have surgery on 09/30 but d/t pneumonia and recent GI bleed this was postponed Left IKER on 10/18/16 S/P Left total left hip arthroplasty: Post OP #6 Pain control per pain management BP stable PT/OT evaluation Orthopaedics on board S/P 4 PRBCs after surgery Hb:8.5 today: stable Continue Lovenox 30mg SQ daily ACUTE BLOOD LOSS ANEMIA: Post Surgery s/p 4 units PRBC Hb improved to 9.1 after transfusion and dropped to 7.6 >>> 8.2 >>>7.9 >>>8.5 Monitor Hb Minimize Iatrogenic blood loss HX OF LEFT HIP FRACTURE NON UNION: S/P Left IKER ON 10/18/16 Continue Plavix, lovenox H/O Essential Thrombocythemia: follows up with Dr Mainor Chavez: Needs Lovenox for 4 weeks post OP MYELODYSPLASTIC SYNDROME Follows with Dr. Mainor Chavez Likely Essential Thrombocythemia per Dr. Chavez: Discussed with on Leukocytosis worsened likely secondary to Decadron, trending down Platelet count: 1.0 million Very high risk for VTE- continue with lovenox daily for prophylaxis for 4 weeks Plavix, lovenox resumed. Patient continues to smoke, cessation counseling Heme/onc on board H/O Intolerance to Interferon therapy Restart hydroxyurea: 500 mg every other day today: Discussed with on Needs Out patient FU with heme/onch COPD recent pneumonia CXR without consolidations continue home inhalers H/O GI BLEED Last EGD in 09/20 with nonbleeding duodenal ulcer continue PPI Iron Studies - negative for iron deficiency anemia follow H&H S/P 4 PRBCs during this hospitalization FOBT is negative VITAMIN D DEFICIENCY Vit D levels 9.1 Will replace with Vit D 51226 units q week x 6 weeks followed by 1000 units daily Need to monitor outpatient DEPRESSION/INSOMNIA continue Amitriptyline, Lyrica, Restoril TOBACCO ABUSE Cessation counseling given H/O BREAST CA s/p mastectomy in the DVT PROPHYLAXIS: Sq Lovenox CODE STATUS: FULL CODE per my discussion with the patient and her daughter DISPO: PT/OT Social service consulted Plan to discharge when rehab placement available. Awaiting for Insurance Authorization Vital Signs: Date Time Temp Pulse Resp B/P Pulse Ox O2 Delivery O2 Flow Rate FiO2 10/24/16 15:05 37.1 99 18 111/66 92 Room Air 10/24/16 07:40 Room Air 10/24/16 07:02 37.0 98 16 95/59 91 Room Air 10/23/16 23:40 Room Air 10/23/16 23:30 36.9 93 16 92/55 94 Room Air Lab Results: Results Past 24 Hours Test 10/23/16 22:13 10/24/16 07:42 Range/Units Hemoglobin 7.7 8.5 12.0-16.0 g/dL Hematocrit 24.3 27.0 37-47 % White Blood Count 20.96 4.8-10.8 K/uL Red Blood Count 3.23 4.2-5.4 M/uL Mean Corpuscular Volume 83.6 80-100 fL Mean Corpuscular Hemoglobin 26.3 25-34 pg Mean Corpuscular Hemoglobin Concent 31.5 32-36 g/dl Platelet Count 1093 130-400 K/uL Mean Platelet Volume 10.9 7.4-10.4 fL RDW Standard Deviation 76.0 36.4-46.3 fL RDW Coefficient of Variation 26.3 11.5-14.5 % Nucleated RBC Absolute Count (auto) 0.13 0-0 K/uL Neutrophils % (Manual) 70.5 % Lymphocytes % (Manual) 14.3 % Monocytes % (Manual) 3.6 % Eosinophils % (Manual) 8.0 % Basophils % (Manual) 1.8 % Myelocytes % 0.9 % Blast Cells % 0.9 % Nucleated Red Blood Cells % 0.6 % Neutrophils # (Manual) 14.78 1.4-6.5 K/uL Total Absolute Neutrophils 14.78 1.4-6.5 K/uL Lymphocytes # (Manual) 3.00 1.2-3.4 K/uL Total Absolute Lymphocytes 3.00 1.2-3.4 K/uL Monocytes # (Manual) 0.75 0.11-0.59 K/uL Eosinophils # (Manual) 1.68 0-0.5 K/uL Basophils # (Manual) 0.38 0-0.2 K/uL Myelocytes # 0.19 0-0 K/uL Blast Cells # 0.19 0-0 K/uL Platelet Estimate INCREASED Giant Platelets 1+ Poikilocytosis PRESENT Anisocytosis PRESENT
[2016-10-24] MEDS ORDERED: HYDROXYUREA 500 MG CAP PO SCH (16:00)
[2016-10-24] MEDS: ACETAMINOPHEN 325 MG TAB PO PRN (19:33)
[2016-10-24] MEDS: SENNA 8.6 MG TAB PO SCH (21:29)
[2016-10-24] MEDS: AMITRIPTYLINE HCL 25 MG TAB PO SCH (21:30)
[2016-10-24] MEDS: TEMAZEPAM 15 MG CAP PO SCH (21:36)
[2016-10-24 22:51] VITALS: BP 99/60; PULSE 90; TEMP 37; O2SAT 94
[2016-10-25] MEDS: HYDROmorphone HCL 2 MG TAB PO PRN ×4 (05:43→17:02)
[2016-10-25 07:29] VITALS: BP 101/58; PULSE 92; TEMP 37.1; O2SAT 91
[2016-10-25 07:51] LABS: HEMATOCRIT 25.6 % (37-47)
[2016-10-25] MEDS: MULTIVITAMIN TAB PO SCH (09:06)
[2016-10-25] MEDS: FLUTICASONE/SALMETEROL 250/50 (ADVAIR) 14 PUFF/1 INHALER INH SCH (09:06)
[2016-10-25] MEDS: CLOPIDOGREL BISULFATE 75 MG TAB PO SCH (09:06)
[2016-10-25] MEDS: ENOXAPARIN 30 MG/0.3 ML SYR SQ SCH (09:06)
[2016-10-25] MEDS: PANTOprazole SOD 40 MG TAB PO SCH (09:06)
[2016-10-25] MEDS: GUAIFENESIN 600 MG TABCR PO SCH (09:06)
[2016-10-25] MEDS: LORATADINE 10 MG TAB PO SCH (09:06)
[2016-10-25] MEDS: CHECK FENTANYL PATCH PLACEMENT SCH ×2 (09:07→15:58)
[2016-10-25] MEDS: NICOTINE 14 MG/24 HR TDSY TD SCH (09:08)
[2016-10-25] MEDS: PREGABALIN 75 MG CAP PO SCH (09:09)
[2016-10-25] MEDS: TRAMADOL HCL 50 MG TAB PO PRN ×2 (09:12→16:02)
[2016-10-25] MEDS: ACETAMINOPHEN 325 MG TAB PO PRN (12:29)
--- NOTE | 2016-10-25 12:31 | Progress Note ---
Internal Med Progress Note Date of Service: Oct 25, 2016. Provider Documentation: SUBJECTIVE: Patient is seen and examined at bedside. States having left hip pain while ambulating. Tolerating Hydroxyurea. Denies any chest pain, SOB. Offers no other complaints. OBJECTIVE: Vital Signs-as noted below Physical Exam: General Appearance:Thin, fragile, no apparent distress Head: normocephalic, Atraumatic Eyes: normal inspection, EOMI, PERRLA, Anicteric Neck: supple, no JVD, Trachea midline Respiratory/Chest: Normal breath sounds, CTA, No accessory muscle use Cardiovascular: S1, S2, Tachycardia, No murmur Abdomen/GI:Soft, Non tender, Bowel sounds present Extremities/Musculoskelatal:normal inspection, Left LE in surgical Bandage Neurologic/Psych:AAOX3, grossly no focal neurological deficits Skin: normal color, warm Lab data as noted below. ASSESSMENT & PLAN: ASSESSMENT & PLAN: Patient is a 76 yr old female with history of left hip fracture who failed ORIF presents to the ED with worsening hip pain following a fall 2 days ago INTRACTABLE LEFT HIP PAIN - KNOWN H/O LEFT HIP FRACTURE NONUNION, NOW WITH RECENT FALL CT left hip:Incomplete healing of the mildly displaced, impacted left femoral neck fracture without significant interval healing Follows with Dr. Avendaño as outpatient was to have surgery on 09/30 but d/t pneumonia and recent GI bleed this was postponed Left IKER on 10/18/16 S/P Left total left hip arthroplasty: Post OP #7 Pain control per pain management BP stable PT/OT evaluation Orthopaedics on board S/P 4 PRBCs after surgery Hb:8.0 today: stable Continue Lovenox 30mg SQ daily ACUTE BLOOD LOSS ANEMIA: Post Surgery s/p 4 units PRBC Hb improved to 9.1 after transfusion and dropped to 7.6 >>> 8.2 >>>7.9 >>>8.0 Monitor Hb Minimize Iatrogenic blood loss HX OF LEFT HIP FRACTURE NON UNION: S/P Left IKER ON 10/18/16 Continue Plavix, lovenox H/O Essential Thrombocythemia: follows up with Dr Mainor Chavez: Needs Lovenox for 4 weeks post OP MYELODYSPLASTIC SYNDROME Follows with Dr. Mainor Chavez Likely Essential Thrombocythemia per Dr. Chavez: Discussed with on Leukocytosis worsened likely secondary to Decadron, trending down Platelet count: 1.0 million Very high risk for VTE- continue with lovenox daily for prophylaxis for 4 weeks Plavix, Lovenox resumed. Patient continues to smoke, cessation counseling Heme/onc on board H/O Intolerance to Interferon therapy Restart hydroxyurea: 500 mg every other day today: Discussed with on Needs Out patient FU with heme/onch COPD recent pneumonia CXR without consolidations continue home inhalers H/O GI BLEED Last EGD in 09/20 with nonbleeding duodenal ulcer continue PPI Iron Studies - negative for iron deficiency anemia follow H&H S/P 4 PRBCs during this hospitalization FOBT is negative VITAMIN D DEFICIENCY Vit D levels 9.1 Will replace with Vit D 52807 units q week x 6 weeks followed by 1000 units daily Need to monitor outpatient DEPRESSION/INSOMNIA continue Amitriptyline, Lyrica, Restoril TOBACCO ABUSE Cessation counseling given H/O BREAST CA s/p mastectomy in the DVT PROPHYLAXIS: Sq Lovenox CODE STATUS: FULL CODE per my discussion with the patient and her daughter DISPO: PT/OT Social service consulted Plan to discharge to [facility] today Follow up with (PCP) on 10/31/16 at 12:50PM Follow up with Dr.Nilesh Chavez on 11/21/16 at 11:15AM Follow up with your Orthopedic surgeon in 2 weeks.(Please call [facility] to make a follow-up appointment at ) Vital Signs: Date Time Temp Pulse Resp B/P Pulse Ox O2 Delivery O2 Flow Rate FiO2 10/25/16 07:55 Room Air 10/25/16 07:29 37.1 92 18 101/58 91 Room Air 10/24/16 23:34 Room Air 10/24/16 22:51 37.0 90 14 99/60 94 Room Air 10/24/16 16:30 Room Air 10/24/16 15:05 37.1 99 18 111/66 92 Room Air Lab Results: Results Past 24 Hours Test 10/25/16 07:40 Range/Units Hemoglobin 8.0 12.0-16.0 g/dL Hematocrit 25.6 37-47 %
[2016-10-25] MEDS ORDERED: SNK PO (13:14)
[2016-10-25] MEDS ORDERED: MOMLX PO (13:14)
[2016-10-25] MEDS ORDERED: DRGTP50 TOP (13:14)
[2016-10-25] MEDS ORDERED: HYD500 PO (13:14)
[2016-10-25] MEDS ORDERED: TEMA30CA4 PO (13:14)
[2016-10-25] MEDS ORDERED: LVNIS30 SQ (13:14)
[2016-10-25] MEDS ORDERED: NCDT14 TD (13:14)
[2016-10-25] MEDS ORDERED: HYDR2TAB48 PO (13:14)
--- NOTE | 2016-10-25 13:20 | Discharge Summary ---
Discharge Summary Admission Date: Oct 16, 2016 at 19:34 Discharge Date: Oct 25, 2016 Discharge Disposition: Rehab Principal Diagnosis: Left Hip Pain S/P IKER Procedures: Left IKER CT L HIP: No change in appearance of the left hip since exam of July 24, 2016 status post internal fixation of a femoral neck fracture with 3 cannulated screws. No acute fracture. Incomplete healing of the mildly displaced, impacted left femoral neck fracture without significant interval healing. No change in alignment. The findings could reflect incomplete union or subacute on chronic fracture. CXR: No acute cardiopulmonary findings Left Hip X ray: Expected findings following total left hip arthroplasty. Consultations: Orthopedics; Oncology Pending Studies/Follow-Up: Follow up with (PCP) on 10/31/16 at 12:50PM Follow up with Dr.Nilesh Chavez on 11/21/16 at 11:15AM Follow up with your Orthopedic surgeon in 2 weeks.(Please call [facility] to make a follow-up appointment at ) Continue Lovenox 30mg SQ daily for 4 weeks Check H&H if any sings of bleeding at [facility] Follow up with your Physician at [facility] for any other concerns Medication Reconciliation New Medications: Enoxaparin (Lovenox) 30 Mg/0.3 Ml Inj 30 MG SQ QAM for 30 Days, #30 Hydroxyurea (Hydroxyurea) 500 Mg Cap 500 MG PO Q2D@0900 for 30 Days, #15 CAP Magnesium Hydroxide (Milk of Magnesia) 30 Ml Susp 30 ML PO Q6H PRN for Constipation for 10 Days, #1 BTL Nicotine (Nicotine) 1 Patch Tdsy 1 PATCH TD QAM for 30 Days, #30 Senna (Senna Lax) 8.6 Mg Tab 17.2 MG PO HS for 30 Days, #30 TAB Continued Medications: Albuterol (Ventolin Hfa) 60 Puffs/5400 Mcg Aers 2 PUFFS INH Q6H PRN for Wheezing Amitriptyline Hcl (Elavil) 75 Mg Tab 75 MG PO HS, TAB Clopidogrel (Plavix) 75 Mg Tab 75 MG PO QAM, TAB Fentanyl (Fentanyl) 50 Mcg Tdsy 50 MCG TOP CQ72HR for 30 Days, #10 (This prescription has been renewed) Fluticasone Prop/Salmeterol (Advair Diskus 250/50 60 Dose) 1 Ea Aerp 1 PUFF INH BID, INHALER Guaifenesin La (Guaifenesin Er) 600 Mg Tabcr 600 MG PO Q12H Hydromorphone Hcl (Dilaudid) 2 Mg Tab 2 MG PO Q4-6HRS PRN for Pain for 10 Days, #10 TAB (This prescription has been renewed) Loratadine (Claritin) 10 Mg Cap 10 MG PO DAILY, 3 Refills Nutritional Supplements ([place] Instant Breakfa) 1 Liq Liq 1-2 DOSE PO DAILY Ondansetron Hcl (Zofran) 8 Mg Tab 8 MG PO TID PRN for Nausea, TAB Pantoprazole (Protonix) 40 Mg Tab 40 MG PO BID, TAB Pregabalin (Lyrica) 75 Mg Cap 75 MG PO HS, CAP Rizatriptan Benzoate (Rizatriptan Benzoate) 10 Mg Tab 10 MG PO UD PRN for Headache TAKE MD DIRECTS Temazepam (Restoril) 30 Mg Cap 30 MG PO HS for 10 Days, #10 CAP (This prescription has been renewed) Admission Information HPI (per Admitting provider): Patient seen and examined. 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 Patient has a history of left hip fracture in March s/p ORIF. 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 She was scheduled for surgery with Dr. Avendaño in September but this was cancelled d/t pneumonia. Patient reports 2 days ago she was standing in front of her wheel chair at the sink and she must not have locked it. When she went to sit back on the wheel chair the chair slid out and she hit the floor. She reports since then she has had increased pain in the left hip and she states it was no longer tolerable with her fentanyl patch and Dilaudid po so she came to the ED. She describes her pain as sharp and throbbing and rates it as an 8/10. She denies fevers, chills, URI symptoms, chest pain, SOB, nausea, vomiting, diarrhea, dysuria, calf pain and edema. Denies numbness/tingling, head trauma. She was recently treat for pneumonia with per patient 2 rounds of Zpaks and reports her breathing and coughing are back at baseline (has underlying COPD). She had a GI bleed in July 2016 and has known duodenal ulcer. She is taking Protonix and is scheduled for repeat EGD later this month. She reports she is currently not under any treatment for myeloproliferative disorder but follows with Dr. Chavez. In the ED VS are stable , platelet count is >1million, WBC count is 17K, CXR is negative for acute changes, CT left hip is unchanged from previous. She received IV Dilaudid and is resting comfortably she will be admitted for further workup and treatment. Physical Exam (per Admitting): General Appearance: + pertinent finding (Very pleasant thin 76 year old female lying in bed in NAD with daughter at bedside ) Head: normocephalic, atraumatic Eyes: PERRL, EOMI, sclerae normal ENT: hearing grossly normal, pharynx normal Neck: supple, no JVD, trachea midline Respiratory/Chest: chest non-tender, no respiratory distress, no accessory muscle use, + pertinent finding (coarse breathsounds trace wheezes ) Cardiovascular: regular rate, rhythm, no edema, no gallop, no JVD, no murmur , normal peripheral pulses Abdomen/GI: normal bowel sounds, non tender, soft Back: normal inspection, no muscle spasm Extremities/Musculoskelatal: no calf tenderness, normal capillary refill, no pedal edema, + pertinent finding (Pain to palpation left hip, sensation and pulses intact ) Neurologic/Psych: alert, oriented x 3, + pertinent finding (no motor or sensory deficits noted on gross exam ) Skin: normal color, warm/dry, no rash Lymphatic: no adenopathy Hospital Course ASSESSMENT & PLAN: Patient is a 76 yr old female with history of left hip fracture who failed ORIF presents to the ED with worsening hip pain following a fall 2 days ago INTRACTABLE LEFT HIP PAIN - KNOWN H/O LEFT HIP FRACTURE NONUNION, NOW WITH RECENT FALL CT left hip:Incomplete healing of the mildly displaced, impacted left femoral neck fracture without significant interval healing Follows with Dr. Avendaño as outpatient was to have surgery on 09/30 but d/t pneumonia and recent GI bleed this was postponed Left IKER on 10/18/16 S/P Left total left hip arthroplasty: Post OP #7 Pain control per pain management BP stable PT/OT evaluation Orthopaedics on board S/P 4 PRBCs after surgery Hb:8.0 today: stable Continue Lovenox 30mg SQ daily ACUTE BLOOD LOSS ANEMIA: Post Surgery s/p 4 units PRBC Hb improved to 9.1 after transfusion and dropped to 7.6 >>> 8.2 >>>7.9 >>>8.0 Monitor Hb Minimize Iatrogenic blood loss HX OF LEFT HIP FRACTURE NON UNION: S/P Left IKER ON 10/18/16 Continue Plavix, lovenox H/O Essential Thrombocythemia: follows up with Dr Mainor Chavez: Needs Lovenox for 4 weeks post OP MYELODYSPLASTIC SYNDROME Follows with Dr. Mainor Chavez Likely Essential Thrombocythemia per Dr. Chavez: Discussed with on Leukocytosis worsened likely secondary to Decadron, trending down Platelet count: 1.0 million Very high risk for VTE- continue with lovenox daily for prophylaxis for 4 weeks Plavix, Lovenox resumed. Patient continues to smoke, cessation counseling Heme/onc on board H/O Intolerance to Interferon therapy Restart hydroxyurea: 500 mg every other day today: Discussed with on Needs Out patient FU with heme/onch COPD recent pneumonia CXR without consolidations continue home inhalers H/O GI BLEED Last EGD in 09/20 with nonbleeding duodenal ulcer continue PPI Iron Studies - negative for iron deficiency anemia follow H&H S/P 4 PRBCs during this hospitalization FOBT is negative VITAMIN D DEFICIENCY Vit D levels 9.1 Will replace with Vit D 15398 units q week x 6 weeks followed by 1000 units daily Need to monitor outpatient DEPRESSION/INSOMNIA continue Amitriptyline, Lyrica, Restoril TOBACCO ABUSE Cessation counseling given H/O BREAST CA s/p mastectomy in the DVT PROPHYLAXIS: Sq Lovenox CODE STATUS: FULL CODE per my discussion with the patient and her daughter DISPO: PT/OT Social service consulted Plan to discharge to [facility] today Follow up with (PCP) on 10/31/16 at 12:50PM Follow up with Dr.Nilesh Chavez on 11/21/16 at 11:15AM Follow up with your Orthopedic surgeon in 2 weeks.(Please call [facility] to make a follow-up appointment at ) Total time spent on discharge = 40 Minutes This includes examination of the patient, discharge planning, medication reconciliation, and communication with other providers. Discharge Instructions Discharge Instructions Admission Reason for Admission: Left Hip Pain Discharge Discharge Diagnosis / Problem: Left Hip Pain S/P IKER Discharge Goals Goal(s): Decrease discomfort, Improve function Activity Recommendations Activity Limitations: resume your previous activity Exercise/Sports Limitations: as tolerated Driving or Machine Use: No driving until cleared by PCP . Instructions / Follow-Up Instructions / Follow-Up Follow up with (PCP) on 10/31/16 at 12:50PM Follow up with Dr.Nilesh Chavez on 11/21/16 at 11:15AM Follow up with your Orthopedic surgeon in 2 weeks.(Please call [facility] to make a follow-up appointment at ) Continue Lovenox 30mg SQ daily for 4 weeks Check H&H if any sings of bleeding at [facility] Follow up with your Physician at [facility] for any other concerns Please follow other Instructions from Orthopedics as well. Current Hospital Diet Patient's current hospital diet: Regular Diet Discharge Diet Recommended Diet: Regular Diet Procedures Procedures Performed: Uncemented Pending Studies Studies pending at discharge: no Medical Emergencies . Who to Call and When: Medical Emergencies: If at any time you feel your situation is an emergency, please call 911 immediately. . Non-Emergent Contact Non-Emergency issues call your: Primary Care Provider, Oncologist Call Non-Emergent contact if: you have a fever, your pain is not controlled, your pain is worsening, your pain is unusual for you, you have any medication questions . . "Provider Documentation" section prepared by Carl Jackson. VTE Core Measure Inpt VTE Proph given/why not?: Enoxaparin (Lovenox)SQ, SCD's [place] Drug Monitoring Program Search Results: patient reviewed within database
[2016-10-25 14:31] VITALS: BP 101/58; PULSE 92; TEMP 37.1; O2SAT 91
[2016-10-25 15:10] VITALS: BP 100/57; PULSE 92; TEMP 37.4; O2SAT 93
[2017-01-24] MEDS ORDERED: MOMLX PO (11:21)
[2017-01-24] MEDS ORDERED: ACET-1175 PO (11:23)
[2017-02-06] MEDS ORDERED: HYDR500C3 PO (10:12)
[2017-02-06] MEDS ORDERED: ANAG1CAP PO (10:12)
[2017-02-06] MEDS ORDERED: PANT40TA PO (10:13)
[2017-02-06] MEDS ORDERED: TEMA30CA4 PO (11:22)
[2017-02-06] MEDS ORDERED: CLOP1TAB15 PO (12:21)
[2017-02-06] MEDS ORDERED: AMIT75TA2 PO (12:21)
[2017-02-06] MEDS ORDERED: ONDA8TAB6 PO (12:21)
[2017-02-14] MEDS ORDERED: ERGO1CAP41 PO (09:51)
[2017-03-06] MEDS ORDERED: DAPT500I (11:13)
[2017-05-30] MEDS ORDERED: OXYC-57 PO (15:28)
== END 2016-10-25 18:18 | DRG 470 ==
LOC: ENRESERVTM → ENRESERVDT → C.EDB 16:14 → C.MSN 19:34
PROVIDERS: ADMIT Hospitalist; ATTEND Internal Medicine
PROC: 0SRB0JZ Replacement of Left Hip Joint with Synthetic Substitute, Open Approach (ICD-10-PCS; principal; 2016-10-18 15:15)
PROC: 0QP704Z Removal of Internal Fixation Device from Left Upper Femur, Open Approach (ICD-10-PCS; principal; 2016-10-18 15:15)
DX: S72.002K Fracture of unspecified part of neck of left femur, subsequent encounter for closed fracture with nonunion (principal); D62 Acute posthemorrhagic anemia; F11.20 Opioid dependence, uncomplicated; J44.9 Chronic obstructive pulmonary disease, unspecified; D46.9 Myelodysplastic syndrome, unspecified; Z91.040 Latex allergy status; W19.XXXS Unspecified fall, sequela; Z85.3 Personal history of malignant neoplasm of breast; F17.210 Nicotine dependence, cigarettes, uncomplicated; F32.9 Major depressive disorder, single episode, unspecified; D47.3 Essential (hemorrhagic) thrombocythemia; E55.9 Vitamin D deficiency, unspecified; G89.18 Other acute postprocedural pain; K27.9 Peptic ulcer, site unspecified, unspecified as acute or chronic, without hemorrhage or perforation

== ENCOUNTER → 2017-01-20 | Outpatient (CLI) | payer OTHER ==
[~2017-01-20] MED LIST changes: +ACET-1175 PO; +ADVIN25/60 INH; -ADVIN25050 INH; +AMIT75TA2 PO; +ANAG1CAP PO; +CLOP1TAB15 PO; +DAPT500I; +ERGO500011 PO; +ERGO500037 PO; +GUAI1TAB75 PO; +HYD500 PO; +HYDR2TAB48 PO; +HYDR500C3 PO; +LORA10CA2 PO; +LVNIS30 SQ; +MOMLX PO; -MXL10 PO; +NCDT14 TD; +NICO14DI31 TD; +NUTRLIQ21 PO; +ONDA8TAB6 PO; +OXYC-57 PO; +PANT40TA PO; +PREG75CA PO; +RIZA1TAB11 PO; +SNK PO
== END | disposition home or self-care (01) ==
LOC: C.LAB 19:41
PROVIDERS: ATTEND Physician Assistant
DX: Z98.890 Other specified postprocedural states (principal)

== ENCOUNTER 2017-01-23 12:56 | Emergency (ER) | payer OTHER ==
[~2017-01-23] VITALS: Ht 165.1 cm; Wt 48.5 kg
[~2017-01-23 12:56] MED LIST changes: -ACET-1175 PO; -ADVIN25/60 INH; -AMIT75TA2 PO; -ANAG1CAP PO; -CLOP1TAB15 PO; -DAPT500I; -ERGO500011 PO; -ERGO500037 PO; -HYDR500C3 PO; -LORA10CA2 PO; -NICO14DI31 TD; -NUTRLIQ21 PO; -ONDA8TAB6 PO; -OXYC-57 PO; -PANT40TA PO; -PREG75CA PO; -PRVHFAIN INH; -RIZA1TAB11 PO
[2017-01-23 13:05] VITALS: TEMP 36.9; Ht 165.1 cm; Wt 48.5 kg
--- NOTE | 2017-01-23 14:01 | EMERGENCY ROOM VISIT NOTE ---
History Report prepared by Del: Raymundo Rush Under the Supervision of: Dr. Naya Madsen M.D. First contact with patient: 13:43 Chief Complaint: WOUND INFECTION Stated Complaint: PAIN ON LEFT HIP/NON HEALING INCISION Nursing Triage Summary: Pt c/o left hip open draining wound, it's been cultured already. Also need blood work to see if she needs transfusion for Dr Chavez. Leukemia. History of Present Illness The patient is a 76 year old female who presents to the Emergency Room with complaints of an open draining wound that started 4 days ago. She had left hip surgery in October, and her wound was fine until she started noticing that her wound had broken open and was draining. The patient called her primary care physician 3 days ago, but the office told the patient that she could not been seen that day, and was recommended to go to Urgent Care. The patient then went to the [facility] urgent care, and had a culture done, which was negative for any growth or bacteria. She states that her wound is still draining. The patient called her primary care office this morning, and was told to be evaluated here. She notes that her oncologist asked her to come in to get a blood transfusion tomorrow. The patient has Leukemia. She takes Plavix. The patient has not had a blood transfusion in the past 3 months. Source of History: patient Onset: 4 days ago Position: other (left hip) Symptom Intensity: culture negative for growth or bacteria Quality: other (open draining wound) Timing: other (persistent) Note: No other associated symptoms noted. Review of Systems See HPI for pertinent positives & negatives. A total of 10 systems reviewed and were otherwise negative. Past Medical & Surgical Medical Problems: (1) Anemia (2) Anemia due to blood loss, acute (3) Breast CA (4) COPD (chronic obstructive pulmonary disease) (5) Essential thrombocythemia (6) History of breast cancer (7) History of peptic ulcer disease (8) Left hip pain (9) Myelodysplastic syndrome (10) Pressure ulcer of sacral region, stage 1 (11) S/P ORIF (open reduction internal fixation) fracture Surgical Problems: (1) History of repair of left hip joint (2) Post-operative state (3) Status post cholecystectomy (4) Status post hysterectomy (5) Status post mastectomy Family History Colon cancer FATHER Social History Smoking Status: Current Every Day Smoker Drug Use: none Marital Status: Housing Status: lives with family Occupation Status: retired Current/Historical Medications Scheduled Amitriptyline Hcl (Elavil), 75 MG PO HS Clopidogrel (Plavix), 75 MG PO QAM Fluticasone Prop/Salmeterol (Advair Diskus 250/50 60 Dose), 1 PUFF INH BID Guaifenesin La (Guaifenesin Er), 600 MG PO Q12H Hydroxyurea (Hydroxyurea), 500 MG PO Q2D@0900 Loratadine (Claritin), 10 MG PO DAILY Magnesium Hydroxide (Milk of Magnesia), 30 ML PO prn Nutritional Supplements ([place] Instant Breakfa), 1-2 DOSE PO DAILY Pantoprazole (Protonix), 40 MG PO BID Pregabalin (Lyrica), 75 MG PO HS Temazepam (Restoril), 30 MG PO HS Scheduled PRN Albuterol (Ventolin Hfa), 2 PUFFS INH Q6H PRN for Wheezing Ondansetron Hcl (Zofran), 8 MG PO TID PRN for Nausea Rizatriptan Benzoate (Rizatriptan Benzoate), 10 MG PO UD PRN for Headache Miscellaneous Medications Acetaminophen (Tylenol), 650 MG PO Allergies Coded Allergies: Lobster (Verified Allergy, Severe, HIVES, 01/24/17) Latex1 -Allergic Contact Dermititis (Verified Allergy, Unknown, HIVES, ) NO KNOWN DRUG ALLERGIES (Verified Allergy, Unknown, ., 01/24/17) Uncoded Allergies: METALS (Allergy, Unknown, HIVES/ITCHINESS, 09/22/16) PATIENT REPORTS ANY METALS UNDER 14 KT GOLD CAUSES HER TO BECOME ITCHY AND GET HIVES Physical Exam Vital Signs Date Time Temp Pulse Resp B/P Pulse Ox O2 Delivery O2 Flow Rate FiO2 01/23/17 18:00 92 16 14/89 93 01/23/17 16:00 93 16 90/46 95 Room Air 01/23/17 13:05 36.9 97 20 97/54 91 Room Air Physical Exam Vital signs reviewed. General: Elderly, chronically ill-appearing 76 year old female who is pale, in no significant distress. Complains of being cold. HEENT: No scleral icterus, PERRLA, neck supple. Atraumatic. Cardiovascular: Regular rate and rhythm, no extra sounds. Pulmonary: Clear to auscultation bilaterally, normal work of breathing. Abdomen: Soft, nontender, nondistended, positive bowel sounds. Musculoskeletal: Atraumatic, no peripheral edema. Neurologic: Patient awake alert and oriented x 3, full strength in all 4 extremities. Cranial nerves 2 through 12 grossly intact. Skin: 1 cm area of granulation tissue to left IKER scar, serous fluid draining, no expressible fluid. Medical Decision & Procedures ER Provider Diagnostic Interpretation: Radiology results as stated below per my review and radiologist interpretation: LEFT HIP 2 VIEWS CLINICAL HISTORY: Left hip pain. Wound drainage. FINDINGS: AP and frog-leg views of the left hip are compared to study dated 07/24/2016. The skeletal structures are osteopenic. No fracture is seen. A bipolar left hip arthroplasty is in near anatomic alignment. No periprosthetic lucency is seen. Bony overgrowth is noted along the greater trochanter of the left femur. Sclerotic change is present in the left sacroiliac joint. Mild soft tissue edema is seen overlying the left hip. IMPRESSION: 1. Soft tissue edema is noted around the left hip. No acute bony abnormality is identified. 2. Osteopenia and left hip arthroplasty as above. Electronically signed by: Ezio Darden M.D. 01/23/2017 4:01 PM Dictated Date/Time: 01/23/2017 4:00 PM LEFT HIP ULTRASOUND CLINICAL HISTORY: Left hip wound draining. COMPARISON STUDY: CT of the left hip October 16, 2016. FINDINGS: Note is made of a 2.4 x 1.7 x 0.8 cm elliptical hypoechoic subcutaneous fluid collection of the left hip. In addition, there is a second additional apparent fluid collection within the soft tissues of the left hip located deep to the smaller collection. This collection measures 8.6 x 2.9 x 3.5 cm and may be intramuscular. IMPRESSION: 1. 2.4 x 1.7 x 0.8 cm subcutaneous left hip fluid collection which is nonspecific in the postoperative setting. This could reflect a resolving hematoma or abscess. 2. Possible additional fluid collection within the deep soft tissues of the left hip which measures approximately 8.6 x 2.9 x 3.5 cm. This suspected fluid collection may be overlying the fascia or intramuscular in location. Electronically signed by: Constantin Richter M.D. 01/23/2017 4:03 PM Dictated Date/Time: 01/23/2017 3:56 PM Laboratory Results 01/23/17 14:20 Red Blood Count 2.76, Mean Corpuscular Volume 81.5, Mean Corpuscular Hemoglobin 26.1, Mean Corpuscular Hemoglobin Concent 32.0 01/23/17 14:20 Test 01/23/17 14:20 White Blood Count 16.35 K/uL (4.8-10.8) Red Blood Count 2.76 M/uL (4.2-5.4) Hemoglobin 7.2 g/dL (12.0-16.0) Hematocrit 22.5 % (37-47) Mean Corpuscular Volume 81.5 fL (80-100) Mean Corpuscular Hemoglobin 26.1 pg (25-34) Mean Corpuscular Hemoglobin Concent 32.0 g/dl (32-36) Platelet Count 309 K/uL (130-400) RDW Standard Deviation 94.0 fL (36.4-46.3) RDW Coefficient of Variation 31.2 % (11.5-14.5) Nucleated RBC Absolute Count (auto) 0.11 K/uL (0-0) Neutrophils % (Manual) 77.2 % Lymphocytes % (Manual) 11.4 % Eosinophils % (Manual) 2.6 % Basophils % (Manual) 7.0 % Myelocytes % 1.8 % Nucleated Red Blood Cells % 0.7 % Neutrophils # (Manual) 12.62 K/uL (1.4-6.5) Total Absolute Neutrophils 12.62 K/uL (1.4-6.5) Lymphocytes # (Manual) 1.86 K/uL (1.2-3.4) Total Absolute Lymphocytes 1.86 K/uL (1.2-3.4) Eosinophils # (Manual) 0.43 K/uL (0-0.5) Basophils # (Manual) 1.14 K/uL (0-0.2) Myelocytes # 0.29 K/uL (0-0) Poikilocytosis PRESENT Anisocytosis PRESENT Schistocytes 1+ Prothrombin Time 10.6 SECONDS (9.0-12.0) Prothromb Time International Ratio 1.0 (0.9-1.1) Activated Partial Thromboplast Time 27.5 SECONDS (21.0-31.0) Partial Thromboplastin Ratio 1.1 Anion Gap 8.0 mmol/L (3-11) Est Creatinine Clear Calc Drug Dose 37.8 ml/min Estimated GFR () 64.3 Estimated GFR (Non- 55.5 BUN/Creatinine Ratio 22.5 (10-20) Calcium Level 8.1 mg/dl (8.5-10.1) Magnesium Level 2.0 mg/dl (1.8-2.4) Total Bilirubin 0.4 mg/dl (0.2-1) Direct Bilirubin 0.1 mg/dl (0-0.2) Aspartate Amino Transf (AST/SGOT) 8 U/L (15-37) Alanine Aminotransferase (ALT/SGPT) 10 U/L (12-78) Alkaline Phosphatase 87 U/L (45-117) Total Protein 6.6 gm/dl (6.4-8.2) Albumin 3.2 gm/dl (3.4-5.0) Laboratory results per my review. ECG Indication: other (draining wound) Rate (beats per minute): 87 Rhythm: normal sinus Findings: no acute ischemic change, no ectopy, other (incomplete RBBB) ED Course 1349: Past medical records reviewed. The patient was evaluated in room B9. A complete history and physical examination was performed. 1648: I discussed the patient with Dr. Adams, in for Dr. Avendaño ([facility]) - he says to have the patient follow up with the office closely with Dr. Avendaño. We will have case management set up an appointment. 1749: I reevaluated the patient and she is resting comfortably. The patient verbally expressed understanding and agreement of the treatment plan. The patient will be discharged. Medical Decision Differential diagnosis includes but is not limited to: seroma, hematoma, abscess , fatty necrosis. This patient was evaluated and appeared to be in no significant distress. Patient's left hip wound does not appear to be infected. There is a clear serous fluid draining. An ultrasound was performed and reveals some deeper fluid collections. The fluid had been cultured yesterday as an outpatient and has no growth currently. Patient's laboratory work reveals a significant anemia. The patient had refused blood transfusion earlier today and is scheduled for transfusion tomorrow. She feels well now and denies any symptoms of anemia. She would like to be discharged. X-rays were performed and reveal hardware in good position. The patient is ambulatory without difficulty. I did speak with Dr. Adams of orthopedics surgery who recommends follow-up in the office within the next several days. Case management will help arrange for this follow-up. The patient was made aware of the plans and agrees. She was discharged to the care of her daughter. She will return to the ER at any time for worsening of symptoms, fever, increased pain or any concern. Consults Time Called: 1644 Consulting Physician: rob Zeng for Dr. Avendaño ([facility]) Returned Call: [phone] I discussed the patient with rob Zeng for Dr. Avendaño ([facility]) - he says to have the patient follow up with the office closely with Dr. Avendaño. We will have case management set up an appointment. Impression Primary Impression: Seroma of musculoskeletal structure after musculoskeletal system procedure Additional Impressions: Chronic anemia Myeloproliferative disease Scribe Attestation The scribe's documentation has been prepared under my direction and personally reviewed by me in its entirety. I confirm that the note above accurately reflects all work, treatment, procedures, and medical decision making performed by me. Departure Information Dispostion Home / Self-Care Referrals Valerie Chavez M.D. (PCP) Omi Avendaño M.D. Forms HOME CARE DOCUMENTATION FORM, IMPORTANT VISIT INFORMATION, WORK / SCHOOL INSTRUCTIONS Patient Instructions My [facility] Additional Instructions Please follow-up with Dr. Avendaño as arranged by case management. They will call you with an appointment time. Please return to the hospital tomorrow for your blood transfusion as directed by Dr. Chavez. Follow-up with your physician this week for reevaluation. Return to the emergency department for worsening of symptoms or any medical concerns. Problem Qualifiers
[2017-01-23 14:41] LABS: HEMATOCRIT 22.5 % (37-47); MEAN CELL VOLUME 81.5 fL (80-100); MEAN CORPUSCULAR HEMOGLOBIN 26.1 pg (25-34); PLATELET COUNT 309 K/uL (130-400); RED BLOOD COUNT 2.76 M/uL (4.2-5.4); WHITE BLOOD COUNT 16.35 K/uL (4.8-10.8)
[2017-01-23 14:48] LABS: PARTIAL THROMBOPLASTIN RATIO 1.1; PROTHROMBIN TIME (PATIENT) 10.6 SECONDS (9.0-12.0)
[2017-01-23 15:00] LABS: ANISOCYTOSIS PRESENT; BASO ABS # 1.14 K/uL (0-0.2); COMPLETE YES; EOSINOPHIL % 2.6 %; LYMPH ABS # 1.86 K/uL (1.2-3.4); LYMPHOCYTE % 11.4 %; MYELOCYTE % 1.8 %; NEUTROPHILS % 77.2 %; POIKILOCYTOSIS PRESENT; SCHISTOCYTES 1+
[2017-01-23 15:05] LABS: BUN/CREATININE RATIO 22.5 (10-20); POTASSIUM 4.5 mmol/L (3.5-5.1)
[2017-01-23 15:14] LABS: CALCIUM 8.1 mg/dl (8.5-10.1)
--- NOTE | 2017-01-23 16:03 | DIAGNOSTIC IMAGING REPORT ---
LEFT HIP 2 VIEWS CLINICAL HISTORY: Left hip pain. Wound drainage. FINDINGS: AP and frog-leg views of the left hip are compared to study dated 07/24/2016. The skeletal structures are osteopenic. No fracture is seen. A bipolar left hip arthroplasty is in near anatomic alignment. No periprosthetic lucency is seen. Bony overgrowth is noted along the greater trochanter of the left femur. Sclerotic change is present in the left sacroiliac joint. Mild soft tissue edema is seen overlying the left hip. IMPRESSION: 1. Soft tissue edema is noted around the left hip. No acute bony abnormality is identified. 2. Osteopenia and left hip arthroplasty as above. Electronically signed by: Ezio Darden M.D. 01/23/2017 4:01 PM Dictated Date/Time: 01/23/2017 4:00 PM
--- NOTE | 2017-01-23 16:04 | DIAGNOSTIC IMAGING REPORT ---
LEFT HIP ULTRASOUND CLINICAL HISTORY: Left hip wound draining. COMPARISON STUDY: CT of the left hip October 16, 2016. FINDINGS: Note is made of a 2.4 x 1.7 x 0.8 cm elliptical hypoechoic subcutaneous fluid collection of the left hip. In addition, there is a second additional apparent fluid collection within the soft tissues of the left hip located deep to the smaller collection. This collection measures 8.6 x 2.9 x 3.5 cm and may be intramuscular. IMPRESSION: 1. 2.4 x 1.7 x 0.8 cm subcutaneous left hip fluid collection which is nonspecific in the postoperative setting. This could reflect a resolving hematoma or abscess. 2. Possible additional fluid collection within the deep soft tissues of the left hip which measures approximately 8.6 x 2.9 x 3.5 cm. This suspected fluid collection may be overlying the fascia or intramuscular in location. Electronically signed by: Constantin Richter M.D. 01/23/2017 4:03 PM Dictated Date/Time: 01/23/2017 3:56 PM
[2017-01-23 18:00] VITALS: BP 14/89; PULSE 92; O2SAT 93
[2017-01-24] MEDS ORDERED: MOMLX PO (11:21)
[2017-01-24] MEDS ORDERED: ACET-1175 PO (11:23)
[2017-02-06] MEDS ORDERED: ANAG1CAP PO (10:12)
[2017-02-06] MEDS ORDERED: HYDR500C3 PO (10:12)
[2017-02-06] MEDS ORDERED: PANT40TA PO (10:13)
[2017-02-06] MEDS ORDERED: TEMA30CA4 PO (11:22)
[2017-02-06] MEDS ORDERED: CLOP1TAB15 PO (12:21)
[2017-02-06] MEDS ORDERED: ONDA8TAB6 PO (12:21)
[2017-02-06] MEDS ORDERED: AMIT75TA2 PO (12:21)
[2017-03-06] MEDS ORDERED: DAPT500I (11:13)
[2017-05-30] MEDS ORDERED: OXYC-57 PO (15:28)
== END 2017-01-23 18:00 | disposition home or self-care (01) ==
LOC: C.EDB 13:00
DX: M96.842 Postprocedural seroma of a musculoskeletal structure following a musculoskeletal system procedure (principal); D53.9 Nutritional anemia, unspecified; C94.6 Myelodysplastic disease, not elsewhere classified; D64.9 Anemia, unspecified; J44.9 Chronic obstructive pulmonary disease, unspecified; Z85.3 Personal history of malignant neoplasm of breast; D46.9 Myelodysplastic syndrome, unspecified; F17.200 Nicotine dependence, unspecified, uncomplicated; Z79.02 Long term (current) use of antithrombotics/antiplatelets; D47.1 Chronic myeloproliferative disease

== ENCOUNTER → 2017-01-25 | Outpatient (CLI) | payer OTHER ==
[~2017-01-25] MED LIST changes: +ACET-1175 PO; +ADVIN25/60 INH; +AMIT75TA2 PO; +ANAG1CAP PO; +CLOP1TAB15 PO; +DAPT500I; +ERGO500011 PO; +ERGO500037 PO; +HYDR500C3 PO; +LORA10CA2 PO; +NICO14DI31 TD; +NUTRLIQ21 PO; +ONDA8TAB6 PO; +OXYC-57 PO; +PANT40TA PO; +PREG75CA PO; +PRVHFAIN INH; +RIZA1TAB11 PO
--- NOTE | 2017-01-25 13:24 | DIAGNOSTIC IMAGING REPORT ---
LEFT HIP ASPIRATION UNDER FLUOROSCOPIC GUIDANCE CLINICAL HISTORY: Painful left hip arthroplasty. Wound drainage. PROCEDURE: The risks, benefits, and alternatives to the procedure were discussed with the patient. Written informed consent was obtained. The patient was placed supine on the fluoroscopy table, and a left hip aspiration was performed under fluoroscopic guidance. The area was prepped and draped in the usual sterile fashion. The skin and soft tissues anesthetized with local 1% lidocaine. The left hip joint was accessed utilizing a 22-gauge needle. Aspiration was performed. No fluid was retrieved. Intra-articular positioning was confirmed by injecting a small volume of Optiray 300. A small volume of saline was then injected into the joint space and aspirated. This was sent for laboratory analysis. The procedure was well tolerated and without immediate complication. The patient left the department in satisfactory condition. FLUOROSCOPY TIME: 0.5 minutes. IMPRESSION: Left hip aspiration under fluoroscopic guidance as above. Electronically signed by: Ezio Darden M.D. 01/25/2017 1:23 PM Dictated Date/Time: 01/25/2017 1:20 PM
[2017-01-25 14:20] LABS: SYNOVIAL FLUID APPEARANCE BLOODY; SYNOVIAL FLUID COLOR RED; SYNOVIAL FLUID MONONUC RELAT 16.5 %; SYNOVIAL FLUID POLYNUC RELAT 83.5 %
== END | disposition home or self-care (01) ==
LOC: C.RAD 12:10
PROVIDERS: ATTEND Orthopaedic Surgery
DX: M25.552 Pain in left hip (principal)

== ENCOUNTER 2017-02-06 13:56 | Inpatient (IN) | payer OTHER ==
[~2017-02-06] VITALS: Ht 162.6 cm; Wt 49.6 kg
[~2017-02-06 13:56] MED LIST changes: -ACET-1175 PO; -ADVIN25/60 INH; -DAPT500I; -DRGTP50 TOP; -ERGO500011 PO; -ERGO500037 PO; -GUAI1TAB75 PO; -HYD500 PO; -HYDR2TAB48 PO; -LORA10CA2 PO; -LVNIS30 SQ; -MOMLX PO; -NCDT14 TD; -NICO14DI31 TD; -NUTRLIQ21 PO; -OXYC-57 PO; -PREG75CA PO; -PRVHFAIN INH; -RIZA1TAB11 PO; -SNK PO
[2017-02-06] MEDS ORDERED: NICOTINE 21 MG/24 HR TDSY TD STA (14:45)
--- NOTE | 2017-02-06 15:17 | EMERGENCY ROOM VISIT NOTE ---
History Report prepared by Del: Rachel Travis Under the Supervision of: Dr. Smith Boucher M.D. First contact with patient: 14:20 Chief Complaint: WOUND INFECTION Stated Complaint: WOUND ON LEG WHERE INCISION IS History of Present Illness The patient is a 76 year old female who presents to the Emergency Room with complaints of a worsening wound infection for the past two weeks. The patient had hip surgery by Dr. Avendaño on 10/18/16. She states that over the past two weeks she has had some drainage from one of the incisions on her hip. She called [facility] last week and was advised to follow-up with her PCP. She called her PCP's office 3 days ago and was told to come to the ED. The patient did not come at that time. She states that her symptoms are worse today , so she decided to come in. She notes thick, yellowish/brown drainage from her hip. The area is painful and she rates her pain as a 4/10 in severity. The patient denies any fevers. Source of History: patient Onset: 2 weeks ago Position: other (left hip) Symptom Intensity: 4/10 Quality: other (thick, yellowish/brown drainage) Timing: worsening Associated Symptoms: No fevers Review of Systems See HPI for pertinent positives & negatives. A total of 10 systems reviewed and were otherwise negative. Past Medical & Surgical Medical Problems: (1) Anemia (2) Anemia due to blood loss, acute (3) Breast CA (4) COPD (chronic obstructive pulmonary disease) (5) Essential thrombocythemia (6) History of breast cancer (7) History of peptic ulcer disease (8) Left hip pain (9) Myelodysplastic syndrome (10) Pressure ulcer of sacral region, stage 1 (11) Puncture wound of left hip (12) S/P ORIF (open reduction internal fixation) fracture Surgical Problems: (1) History of repair of left hip joint (2) Post-operative state (3) Status post cholecystectomy (4) Status post hysterectomy (5) Status post mastectomy Family History Colon cancer FATHER Social History Smoking Status: Current Every Day Smoker Drug Use: none Marital Status: Housing Status: lives with family Occupation Status: retired Current/Historical Medications Scheduled Amitriptyline Hcl (Elavil), 75 MG PO HS Anagrelide Hcl (Anagrelide Hydrochloride), 1 MG PO BID Clopidogrel (Plavix), 75 MG PO QAM Fluticasone Prop/Salmeterol (Advair Diskus 250/50 60 Dose), 1 PUFF INH BID Hydroxyurea (Hydrea Cap), 500 MG PO Q2D Nicotine (Nicoderm Cq 14MG Patch), 1 PATCH TD DAILY Pantoprazole (Protonix), 40 MG PO BID Pregabalin (Lyrica), 75 MG PO HS Temazepam (Restoril), 30 MG PO HS Scheduled PRN Albuterol (Ventolin Hfa), 2 PUFFS INH Q6H PRN for Wheezing Loratadine (Claritin), 10 MG PO DAILY PRN for Allergy Symptoms Nutritional Supplements ([place] Instant Breakfa), 1-2 DOSE PO DAILY PRN for Nutritional Supplement As Need Ondansetron Hcl (Zofran), 8 MG PO TID PRN for Nausea Rizatriptan Benzoate (Rizatriptan Benzoate), 10 MG PO UD PRN for Migraine Allergies Coded Allergies: Lobster (Verified Allergy, Severe, HIVES, 02/03/17) Latex1 -Allergic Contact Dermititis (Verified Allergy, Unknown, HIVES, 02/03) NO KNOWN DRUG ALLERGIES (Verified Allergy, Unknown, ., 02/03/17) Uncoded Allergies: METALS (Allergy, Unknown, HIVES/ITCHINESS, 09/22/16) PATIENT REPORTS ANY METALS UNDER 14 KT GOLD CAUSES HER TO BECOME ITCHY AND GET HIVES Physical Exam Vital Signs Date Time Temp Pulse Resp B/P (MAP) Pulse Ox O2 Delivery O2 Flow Rate FiO2 02/06/17 17:32 67 16 104/53 98 Room Air 02/06/17 14:01 36.7 106 20 92/53 96 Room Air Physical Exam GENERAL: Patient is a cachectic 76 year old female. HEAD: Normocephalic atraumatic EYES: Ocular movements intact pupils equal and react to light OROPHARYNX mucous membranes are moist no exudates present no erythema or edema present NECK: Supple no nuchal rigidity CHEST: Good equal expansion LUNGS: Clear and equal to auscultation CARDIAC: Normal S1 and S2 ABDOMEN: Soft nontender no guarding BACK: No CVA tenderness EXTREMITIES: Surgical site at the left hip that appears to be healing well, large amount of fluid running out. No pain upon palpation normal muscle strength in all groups no clubbing cyanosis or edema NEURO: Patient is following commands is answering questions appropriately. Alert and oriented x3 Cranial Nerves 2-12 grossly intact Medical Decision & Procedures ER Provider Diagnostic Interpretation: Radiology results as stated below per my review and radiologist interpretation: PELVIS 1 OR 2 VIEW ROUTINE CLINICAL HISTORY: Pt c/o left hip pain pain COMPARISON: 01/23/2017 DISCUSSION: Total left hip prosthetic in good position. Good contact between prosthetic and underlying bone. Mild generalized osteopenia. No acute bony abnormality. Mild soft tissue edema. There is no evidence for soft tissue swelling. IMPRESSION: No acute bony abnormality. Mild soft tissue edema unchanged from the prior exam. Electronically signed by: Bandar Negro M.D. 02/06/2017 4:15 PM Dictated Date/Time: 02/06/2017 4:10 PM LEFT FEMUR 3 VIEWS CLINICAL HISTORY: Left hip pain. FINDINGS: AP, frog-leg, and lateral views of left femur are correlated with left hip radiographs dated 01/23/2017. The skeletal structures are osteopenic. A bipolar left arthroplasty is in near-anatomic alignment. No periprosthetic lucency is seen. There is no radiographic evidence of left femoral fracture. The visualized left bony pelvis appears intact. The knee joint is grossly maintained. Soft tissue edema is seen overlying the greater trochanter of the left femur. IMPRESSION: 1. There is no radiographic evidence of left femoral fracture. 2. Soft tissue edema overlies the greater trochanter of the left femur. 3. A left hip arthroplasty is in near-anatomic alignment. Electronically signed by: Ezio Darden M.D. 02/06/2017 4:15 PM Dictated Date/Time: 02/06/2017 4:10 PM Laboratory Results Test 02/06/17 15:40 Immature Granulocyte % (Auto) 0.5 % White Blood Count 14.14 K/uL (4.8-10.8) Red Blood Count 2.83 M/uL (4.2-5.4) Hemoglobin 7.5 g/dL (12.0-16.0) Hematocrit 23.4 % (37-47) Mean Corpuscular Volume 82.7 fL (80-100) Mean Corpuscular Hemoglobin 26.5 pg (25-34) Mean Corpuscular Hemoglobin Concent 32.1 g/dl (32-36) Platelet Count 357 K/uL (130-400) Neutrophils (%) (Auto) 70.8 % Lymphocytes (%) (Auto) 17.9 % Monocytes (%) (Auto) 5.6 % Eosinophils (%) (Auto) 4.0 % Basophils (%) (Auto) 1.2 % Neutrophils # (Auto) 10.02 K/uL (1.4-6.5) Lymphocytes # (Auto) 2.53 K/uL (1.2-3.4) Monocytes # (Auto) 0.79 K/uL (0.11-0.59) Eosinophils # (Auto) 0.56 K/uL (0-0.5) Basophils # (Auto) 0.17 K/uL (0-0.2) Immature Granulocyte # (Auto) 0.07 K/uL (0.00-0.02) Large Platelets 2+ Giant Platelets 1+ Poikilocytosis PRESENT Anisocytosis PRESENT Schistocytes 1+ Erythrocyte Sedimentation Rate 15 mm/hr (0-21) Prothrombin Time 11.0 SECONDS (9.0-12.0) Prothromb Time International Ratio 1.0 (0.9-1.1) Activated Partial Thromboplast Time 28.3 SECONDS (21.0-31.0) Partial Thromboplastin Ratio 1.1 Uric Acid 7.2 mg/dl (2.6-7.2) Total Bilirubin 0.3 mg/dl (0.2-1) Direct Bilirubin < 0.1 mg/dl (0-0.2) Aspartate Amino Transf (AST/SGOT) 7 U/L (15-37) Alanine Aminotransferase (ALT/SGPT) 8 U/L (12-78) Alkaline Phosphatase 91 U/L (45-117) C-Reactive Protein 2.13 mg/dl (0-0.29) Total Protein 6.3 gm/dl (6.4-8.2) Albumin 2.8 gm/dl (3.4-5.0) 25-Hydroxy Vitamin D Total 8.2 ng/ml (30-100) Procalcitonin < 0.05 ng/ml (0-0.5) Thyroid Stimulating Hormone (TSH) 0.622 uIu/ml (0.300-4.500) Lyme Disease IgG Antibody NEG (NEG) Anti-Streptolysin O Antibody Screen NEG IU/ml (<200 IU) Labs reviewed by ED physician. Medications Administered Medications (Trade) Dose Ordered Sig/Pradip Route Start Time Stop Time Status Last Admin Dose Admin Nicotine (Nicoderm Cq 21MG Patch) 1 patch NOW STAT TD 02/06/17 14:45 02/06/17 14:46 DC 02/06/17 15:55 1 PATCH ED Course 1420: Past medical records reviewed. The patient was evaluated in room C7. A complete history and physical examination was performed. 1429: Panfilo Alanis PA-C is contacting Dr. Avendaño about the patient. 1442: At this time I spoke with Dr. Avendaño of [facility] [place]. We discussed the patient's case. He states that he spoke with her multiple times last week and she does not remembering ever speaking with him. He recommended admitting the patient to medicine. 1445: Nicotine 1 patch TD 1506: I spoke with Dr. Avendaño again. He was going to come speak with the patient 's daughter because the patient cannot remember speaking with him, but the daughter is not here. 1654: I spoke with Dr. Andres. We discussed the patients results and treatment plan. The patient will be evaluated by the [facility] for further management. 1658: The patient signed consent for blood. Medical Decision Etiologies such as metabolic, infection, hypo/hyperglycemia, electrolyte abnormalities, cardiac sources, intracerebral event, toxicologic, neurologic, as well as others were entertained. Medication Reconciliation: I attest that I have personally reviewed the patient' s current medication list. Blood Pressure Screening: Patient was found to have normal blood pressure on screening and does not require follow up. This is a 76-year-old feel who presents emergency department complaining of fluid leaking from her hip area. I did discuss this case with Dr. Avendaño who noted that this fluid has been aspirated several times and he noted that there is no infection present. In addition the fluid itself appears to be serositis in nature. The patient is anemic and will require blood transfusion which she has needed in the past. Due to her multiple medical issues I did discuss her with the hospitalist service who agreed to admit the patient. Patient was in agreement with the treatment plan. Consults Time Called: [phone] Consulting Physician: Dr. Avendaño Returned Call: [phone] At this time I spoke with Dr. Avendaño of [facility] [place]. We discussed the patient's case. He states that he spoke with her multiple times last week and she does not remembering ever speaking with him. He recommended admitting the patient to medicine. Additional Consults: Time Called: [phone] Consulted Physician: Dr. Avendaño Returned Call: [phone] Additional Comments: I spoke with Dr. Avendaño again. He was going to come speak with the patient's daughter because the patient cannot remember speaking with him, but the daughter is not here. Time Called: [phone] Consulted Physician: Dr. Andres Returned Call: [phone] Additional Comments: I spoke with Dr. Andres. We discussed the patients results and treatment plan. The patient will be evaluated by the [facility] for further management. Impression Primary Impression: Anemia Scribe Attestation The scribe's documentation has been prepared under my direction and personally reviewed by me in its entirety. I confirm that the note above accurately reflects all work, treatment, procedures, and medical decision making performed by me. Departure Information Dispostion Being Evaluated By Hospitalist Referrals Valerie Chavez M.D. (PCP) Patient Instructions My [facility] Problem Qualifiers Primary Impression: Anemia Anemia type: unspecified type Qualified Codes: D64.9 - Anemia, unspecified
[2017-02-06] MEDS ORDERED: PREG75CA PO (15:32)
[2017-02-06 15:50] LABS: BASO % 1.2 %; BASO ABS # 0.17 K/uL (0-0.2); HEMATOCRIT 23.4 % (37-47); IG% 0.5 %; LYMPH % 17.9 %; LYMPH ABS # 2.53 K/uL (1.2-3.4); MEAN CELL VOLUME 82.7 fL (80-100); MEAN CORPUSCULAR HEMOGLOBIN 26.5 pg (25-34); MEAN CORPUSCULAR HGB CONC 32.1 g/dl (32-36); MONO % 5.6 %; NEUT % 70.8 %; PLATELET COUNT 357 K/uL (130-400); RED BLOOD COUNT 2.83 M/uL (4.2-5.4); WHITE BLOOD COUNT 14.14 K/uL (4.8-10.8)
--- NOTE | 2017-02-06 16:16 | DIAGNOSTIC IMAGING REPORT ---
LEFT FEMUR 3 VIEWS CLINICAL HISTORY: Left hip pain. FINDINGS: AP, frog-leg, and lateral views of left femur are correlated with left hip radiographs dated 01/23/2017. The skeletal structures are osteopenic. A bipolar left arthroplasty is in near-anatomic alignment. No periprosthetic lucency is seen. There is no radiographic evidence of left femoral fracture. The visualized left bony pelvis appears intact. The knee joint is grossly maintained. Soft tissue edema is seen overlying the greater trochanter of the left femur. IMPRESSION: 1. There is no radiographic evidence of left femoral fracture. 2. Soft tissue edema overlies the greater trochanter of the left femur. 3. A left hip arthroplasty is in near-anatomic alignment. Electronically signed by: Ezio Darden M.D. 02/06/2017 4:15 PM Dictated Date/Time: 02/06/2017 4:10 PM
--- NOTE | 2017-02-06 16:17 | DIAGNOSTIC IMAGING REPORT ---
PELVIS 1 OR 2 VIEW ROUTINE CLINICAL HISTORY: Pt c/o left hip pain pain COMPARISON: 01/23/2017 DISCUSSION: Total left hip prosthetic in good position. Good contact between prosthetic and underlying bone. Mild generalized osteopenia. No acute bony abnormality. Mild soft tissue edema. There is no evidence for soft tissue swelling. IMPRESSION: No acute bony abnormality. Mild soft tissue edema unchanged from the prior exam. Electronically signed by: Bandar Negro M.D. 02/06/2017 4:15 PM Dictated Date/Time: 02/06/2017 4:10 PM
[2017-02-06 16:20] LABS: ALT/SGPT 8 U/L (12-78); AST/SGOT 7 U/L (15-37); BLOOD UREA NITROGEN 14 mg/dl (7-18); BUN/CREATININE RATIO 19.1 (10-20); CALCIUM 8.1 mg/dl (8.5-10.1); CARBON DIOXIDE 23 mmol/L (21-32); CHLORIDE 113 mmol/L (98-107); CREATININE 0.71 mg/dl (0.60-1.20); GLUCOSE 88 mg/dl (70-99); POTASSIUM 4.1 mmol/L (3.5-5.1); SODIUM 144 mmol/L (136-145); URIC ACID 7.2 mg/dl (2.6-7.2)
[2017-02-06 16:30] LABS: ALKALINE PHOSPHATASE 91 U/L (45-117); C-REACTIVE PROTEIN 2.13 mg/dl (0-0.29); THYROID STIMULATING HORMONE 0.622 uIu/ml (0.300-4.500)
[2017-02-06 16:38] LABS: ANTI-STREP O SCR: 5YRS OR > NEG IU/ml (<200 IU)
[2017-02-06] MEDS ORDERED: RIZA1TAB11 PO (17:00)
[2017-02-06] MEDS ORDERED: PRVHFAIN INH (17:00)
[2017-02-06] MEDS ORDERED: ADVIN25/60 INH (17:00)
[2017-02-06 17:10] LABS: ANISOCYTOSIS PRESENT; COMPLETE YES; GIANT PLATELETS 1+; LARGE PLATELETS 2+; POIKILOCYTOSIS PRESENT; SCHISTOCYTES 1+
[2017-02-06 17:38] LABS: LYME DISEASE AB IGG NEG (NEG); LYME DISEASE AB IGM EQUIVOCAL (NEG)
[2017-02-06] MEDS ORDERED: NICO14DI31 TD (18:29)
[2017-02-06] MEDS ORDERED: ERGOCALCIFEROL 50,000 INTER.UNIT CAP PO ONE (18:45)
--- NOTE | 2017-02-06 19:36 | History and Physical ---
History & Physical Date & Time of Service: Feb 06, 2017 at 18:36 Chief Complaint: Wound On Leg Where Incision Is Primary Care Physician: Valerie Chavez M.D. History of Present Illness Source: patient, clinic records, hospital records 76 year old female with PMH of Anemia, Myeloproliferative disease, COPD, tobacco abuse, s/p left hip surgery presents to the Emergency Room with complaints of a worsening drainage at the incision site. Pt said that she had hip surgery done by Dr. Avendaño on 10/18/16. she said that the surgery went well with no complications. she said that about 2-3 weeks ago she started to have light yellowish drainage coming at the site of the left hip incision. She called [facility] last week and was advised to follow-up with her PCP. She called her PCP's office 3 days ago and was told to come to the ED. She said today the drainage got worst. She said that now the fluid is thick, yellowish/brown that continue to drained. Pt said that she developed mild tenderness around the area where there is a puncture wound. She said that she had wound culture done as an outpatient with no growth. She said that she always feels cold. Pt also had a recent blood transfusion 2 weeks ago because her hgb was 6.8. she follows with Dr. Chavez sourcing intern. Pt said that her hgb is at baseline now. she does have an EGD schedule for this Monday. denies any recent trauma or injury. denies any fever, chest pain, palpitation. Past Medical/Surgical History Medical Problems: (1) Anemia Status: Chronic (2) Anemia due to blood loss, acute Status: Chronic (3) Breast CA Status: Resolved (4) History of breast cancer Status: Chronic (5) History of peptic ulcer disease Status: Chronic (6) Myelodysplastic syndrome Status: Chronic (7) S/P ORIF (open reduction internal fixation) fracture Status: Chronic Surgical Problems: (1) History of repair of left hip joint Status: Resolved (2) Status post cholecystectomy Status: Chronic (3) Status post hysterectomy Status: Chronic (4) Status post mastectomy Permanent Comment: modified right mastectomy 1990 Status: Chronic Family History Colon cancer FATHER Social History Smoking Status: Current Every Day Smoker Drug Use: none Marital Status: Housing status: lives with family Occupational Status: retired Immunizations History of Influenza Vaccine: No History of Tetanus Vaccine?: No History of Pneumococcal: No History of Hepatitis B Vaccine: No Multi-Drug Resistant Organisms History of MDRO: No Allergies Coded Allergies: Lobster (Verified Allergy, Severe, HIVES, 02/03/17) Latex1 -Allergic Contact Dermititis (Verified Allergy, Unknown, HIVES, 02/03) NO KNOWN DRUG ALLERGIES (Verified Allergy, Unknown, ., 02/03/17) Uncoded Allergies: METALS (Allergy, Unknown, HIVES/ITCHINESS, 09/22/16) PATIENT REPORTS ANY METALS UNDER 14 KT GOLD CAUSES HER TO BECOME ITCHY AND GET HIVES Home Medications Scheduled Amitriptyline Hcl (Elavil), 75 MG PO HS Anagrelide Hcl (Anagrelide Hydrochloride), 1 MG PO BID Clopidogrel (Plavix), 75 MG PO QAM Fluticasone Prop/Salmeterol (Advair Diskus 250/50 60 Dose), 1 PUFF INH BID Hydroxyurea (Hydrea Cap), 500 MG PO Q2D Nicotine (Nicoderm Cq 14MG Patch), 1 PATCH TD DAILY Pantoprazole (Protonix), 40 MG PO BID Pregabalin (Lyrica), 75 MG PO HS Temazepam (Restoril), 30 MG PO HS Scheduled PRN Albuterol (Ventolin Hfa), 2 PUFFS INH Q6H PRN for Wheezing Loratadine (Claritin), 10 MG PO DAILY PRN for Allergy Symptoms Nutritional Supplements ([place] Instant Breakfa), 1-2 DOSE PO DAILY PRN for Nutritional Supplement As Need Ondansetron Hcl (Zofran), 8 MG PO TID PRN for Nausea Rizatriptan Benzoate (Rizatriptan Benzoate), 10 MG PO UD PRN for Migraine Review of Systems Constitutional: + weakness, + fatigue, No fever, No sweats Eyes: No worsening of vision, No redness ENT: No unusual epistaxis, No nasal symptoms, No sore throat Respiratory: + wheezing, + dyspnea on exertion, No cough, No sputum Cardiovascular: No chest pain, No orthopnea, No claudication, No palpitations Abdomen: No nausea, No vomiting, No constipation Musculoskeletal: No joint pain, No calf pain Genitourinary - Female: No dysuria, No urinary frequency, No urinary urgency Neurologic: No paralysis, No weakness Psychiatric: No anhedonism Endocrine: + fatigue Hematologic / Lymphatic: No swollen lymph nodes, No night sweats Integumentary: No rash, No itch Physical Exam Vital Signs Date Time Temp Pulse Resp B/P (MAP) Pulse Ox O2 Delivery O2 Flow Rate FiO2 02/06/17 17:32 67 16 104/53 98 Room Air 02/06/17 14:01 36.7 106 20 92/53 96 Room Air General Appearance: WD/WN, no apparent distress, + cachetic Head: normocephalic, atraumatic Eyes: normal inspection, PERRL, EOMI ENT: normal ENT inspection, hearing grossly normal Neck: supple, no JVD Respiratory/Chest: lungs clear, normal breath sounds, no respiratory distress, no accessory muscle use Cardiovascular: regular rate, rhythm, no edema, no JVD Abdomen/GI: normal bowel sounds, non tender, soft Back: no CVA tenderness, no muscle spasm, normal range of motion Extremities/Musculoskelatal: no calf tenderness, no pedal edema, + pertinent finding ( Drainage at the Surgical site of the left hip that appears to be healing well, dressing is soaked with yellowish fluid coming from a puncture wound. no erythema.) Neurologic/Psych: no motor/sensory deficits, alert, normal mood/affect, oriented x 3 Skin: warm/dry, no rash Diagnostics Laboratory Results Results Past 24 Hours Test 02/06/17 15:40 Range/Units White Blood Count 14.14 4.8-10.8 K/uL Red Blood Count 2.83 4.2-5.4 M/uL Hemoglobin 7.5 12.0-16.0 g/dL Hematocrit 23.4 37-47 % Mean Corpuscular Volume 82.7 80-100 fL Mean Corpuscular Hemoglobin 26.5 25-34 pg Mean Corpuscular Hemoglobin Concent 32.1 32-36 g/dl Platelet Count 357 130-400 K/uL Neutrophils (%) (Auto) 70.8 % Lymphocytes (%) (Auto) 17.9 % Monocytes (%) (Auto) 5.6 % Eosinophils (%) (Auto) 4.0 % Basophils (%) (Auto) 1.2 % Neutrophils # (Auto) 10.02 1.4-6.5 K/uL Lymphocytes # (Auto) 2.53 1.2-3.4 K/uL Monocytes # (Auto) 0.79 0.11-0.59 K/uL Eosinophils # (Auto) 0.56 0-0.5 K/uL Basophils # (Auto) 0.17 0-0.2 K/uL RDW Standard Deviation 85.5 36.4-46.3 fL RDW Coefficient of Variation 28.8 11.5-14.5 % Immature Granulocyte % (Auto) 0.5 % Immature Granulocyte # (Auto) 0.07 0.00-0.02 K/uL Large Platelets 2+ Giant Platelets 1+ Poikilocytosis PRESENT Anisocytosis PRESENT Schistocytes 1+ Erythrocyte Sedimentation Rate 15 0-21 mm/hr Sodium Level 144 136-145 mmol/L Potassium Level 4.1 3.5-5.1 mmol/L Chloride Level 113 98-107 mmol/L Carbon Dioxide Level 23 21-32 mmol/L Anion Gap 8.0 3-11 mmol/L Blood Urea Nitrogen 14 7-18 mg/dl Creatinine 0.71 0.60-1.20 mg/dl Est Creatinine Clear Calc Drug Dose 54.4 ml/min Estimated GFR () 97.3 Estimated GFR (Non- 83.9 BUN/Creatinine Ratio 19.1 10-20 Random Glucose 88 70-99 mg/dl Uric Acid 7.2 2.6-7.2 mg/dl Calcium Level 8.1 8.5-10.1 mg/dl Total Bilirubin 0.3 0.2-1 mg/dl Direct Bilirubin < 0.1 0-0.2 mg/dl Aspartate Amino Transf (AST/SGOT) 7 15-37 U/L Alanine Aminotransferase (ALT/SGPT) 8 12-78 U/L Alkaline Phosphatase 91 45-117 U/L C-Reactive Protein 2.13 0-0.29 mg/dl Total Protein 6.3 6.4-8.2 gm/dl Albumin 2.8 3.4-5.0 gm/dl 25-Hydroxy Vitamin D Total 8.2 30-100 ng/ml Thyroid Stimulating Hormone (TSH) 0.622 0.300-4.500 uIu/ml Lyme Disease IgG Antibody NEG NEG Lyme Disease IgM Antibody EQUIVOCAL NEG Anti-Streptolysin O Antibody Screen NEG <200 IU IU/ml Microbiology Results 02/06/17 Gram Stain, Received Pending 02/06/17 Wound Culture, Received Pending Diagnostic Radiology LEFT FEMUR 3 VIEWS CLINICAL HISTORY: Left hip pain. FINDINGS: AP, frog-leg, and lateral views of left femur are correlated with left hip radiographs dated 01/23/2017. The skeletal structures are osteopenic. A bipolar left arthroplasty is in near-anatomic alignment. No periprosthetic lucency is seen. There is no radiographic evidence of left femoral fracture. The visualized left bony pelvis appears intact. The knee joint is grossly maintained. Soft tissue edema is seen overlying the greater trochanter of the left femur. IMPRESSION: 1. There is no radiographic evidence of left femoral fracture. 2. Soft tissue edema overlies the greater trochanter of the left femur. 3. A left hip arthroplasty is in near-anatomic alignment. Electronically signed by: Ezio Darden M.D. 02/06/2017 4:15 PM PELVIS 1 OR 2 VIEW ROUTINE CLINICAL HISTORY: Pt c/o left hip pain pain COMPARISON: 01/23/2017 DISCUSSION: Total left hip prosthetic in good position. Good contact between prosthetic and underlying bone. Mild generalized osteopenia. No acute bony abnormality. Mild soft tissue edema. There is no evidence for soft tissue swelling. IMPRESSION: No acute bony abnormality. Mild soft tissue edema unchanged from the prior exam. Electronically signed by: Bandar Negro M.D. 02/06/2017 4:15 PM Dictated Date/Time: 02/06/2017 4:10 PM Impression Assessment and Plan Left Hip Puncture Wound Drainage S/p hip surgery done by Dr. Avendaño on 10/18/16 Drainage at the surgical site about 3 weeks ago wound culture done recently shown no growth CRP, WBC and ESR mildly elevated Wound culture resent will consult ortho consider to start abx if WBC increases Will check procalcitonin Daily wound care Anemia hgb 7.5 today Baseline btw 7-8 received 2 unit PRBC 2 weeks ago. will continue monitor closely Will transfuse if h/h drops below 7. schedule for EGD on Mon as an outpatient Essential Thrombocythemia Continue anagrelide, hydroxyurea and plavix Platelet stable Tobacco abuse Nicotine patch counseling on smoking cessation DVT px on heparin subq ( will monitor for bleeding ) Code Status Full code Level of Care Med/Surg Resuscitation Status FULL RESUSCITATION VTE Prophylaxis VTE Risk Assessment Done? Y/N: Yes Risk Level: Moderate Given or contraindicated: Unfractionated heparin SQ
[2017-02-06] MEDS ORDERED: LORA10CA2 PO (19:54)
[2017-02-06 20:00] VITALS: BP 109/57; PULSE 95; TEMP 37.3; O2SAT 98
[2017-02-06 20:47] LABS: PARTIAL THROMBOPLASTIN RATIO 1.1
[2017-02-06] MEDS: ACETAMINOPHEN 325 MG TAB PO PRN (20:56)
[2017-02-06 20:59] VITALS: BP 109/57; PULSE 95; TEMP 37.3; Ht 162.6 cm; Wt 49.6 kg
[2017-02-06] MEDS: FLUTICASONE/SALMETEROL 250/50 (ADVAIR) 14 PUFF/1 INHALER INH SCH (21:33)
[2017-02-06] MEDS: PREGABALIN 75 MG CAP PO SCH (21:36)
[2017-02-06] MEDS: HEPARIN SOD 5000 UNIT/0.5 ML CARP SQ SCH (21:36)
[2017-02-06] MEDS: PANTOprazole SOD 40 MG TAB PO SCH (21:37)
[2017-02-06] MEDS: AMITRIPTYLINE HCL 25 MG TAB PO SCH (21:38)
[2017-02-06] MEDS: TEMAZEPAM 15 MG CAP PO SCH (21:45)
[2017-02-06 22:47] VITALS: BP 103/63; PULSE 88; TEMP 37.2; O2SAT 94
[2017-02-06] MEDS ORDERED: NUTRLIQ21 PO (22:52)
[2017-02-06] MEDS: TRAMADOL HCL 50 MG TAB PO PRN (23:01)
[2017-02-07] MEDS ORDERED: SODIUM CHLORIDE 0.45% 1000ML 1,000 ML IV ONE (05:45)
[2017-02-07 05:49] LABS: CALCIUM 7.7 mg/dl (8.5-10.1); CREATININE 0.72 mg/dl (0.60-1.20); POTASSIUM 4.1 mmol/L (3.5-5.1)
[2017-02-07 06:55] VITALS: BP 109/65; PULSE 83; TEMP 36.8; O2SAT 94
[2017-02-07] MEDS ORDERED: ALBUT/IPRATROP 3MG/0.5MG NEB 3 ML VIAL INH PRN (07:30)
[2017-02-07] MEDS: FLUTICASONE/SALMETEROL 250/50 (ADVAIR) 14 PUFF/1 INHALER INH SCH ×2 (09:21→21:01)
[2017-02-07] MEDS: HYDROXYUREA 500 MG CAP PO SCH (09:23)
[2017-02-07] MEDS: HEPARIN SOD 5000 UNIT/0.5 ML CARP SQ SCH ×2 (09:24→21:03)
[2017-02-07] MEDS: CLOPIDOGREL BISULFATE 75 MG TAB PO SCH (09:25)
[2017-02-07] MEDS: NICOTINE 14 MG/24 HR TDSY TD SCH (09:25)
[2017-02-07] MEDS: PANTOprazole SOD 40 MG TAB PO SCH ×2 (09:26→21:02)
[2017-02-07] MEDS: TRAMADOL HCL 50 MG TAB PO PRN (09:27)
[2017-02-07 10:41] LABS: HEMATOCRIT 25.8 % (37-47); MEAN CELL VOLUME 83.2 fL (80-100); MEAN CORPUSCULAR HEMOGLOBIN 26.5 pg (25-34); MEAN CORPUSCULAR HGB CONC 31.8 g/dl (32-36); PLATELET COUNT 354 K/uL (130-400); WHITE BLOOD COUNT 14.59 K/uL (4.8-10.8)
[2017-02-07 10:42] LABS: PLT ESTIMATE INCREASED
--- NOTE | 2017-02-07 13:40 | Progress Note ---
Internal Med Progress Note Date of Service: Feb 07, 2017. Provider Documentation: SUBJECTIVE: Seen and examined at bedside. States having Left hip pain and some drainage. Denies chest pain, SOB. Offers no other complaints. OBJECTIVE: Vital Signs-as noted below Physical Exam: General Appearance:Thin, Fragile No apparent distress Head: normocephalic, Atraumatic Eyes: normal inspection, EOMI, PERRL Neck: supple, Trachea midline Respiratory/Chest: Decreased breath sounds, CTA Cardiovascular: S1, S2, No murmur Abdomen/GI:Soft, Non tender, Bowel sounds present Extremities/Musculoskelatal:normal inspection, no edema, Left Hip in bandage Neurologic/Psych:AAOX3, grossly no focal neurological deficits Skin: normal color, warm Lab data as noted below. ASSESSMENT & PLAN: Left Hip Puncture Wound Infection S/p Hip surgery done by Dr. Avendaño on 10/18/16 Wound culture: Gram positive cocci Orthopedics consulted Start on IV clindamycin Will consult ID Continue wound care Anemia Hb baseline: around 7-8 S/P 2 units PRBC, 2 weeks ago. Hb:8.2 today Scheduled for EGD on Mon as an outpatient Essential Thrombocythemia Continue anagrelide, hydroxyurea and plavix Monitor Platelets Follow with as outpatient Tobacco abuse Nicotine patch counselled to quit smoking H/O breast Cancer: S/P surgery DVT Px: Heparin SQ Code Status: Full code Vital Signs: Date Time Temp Pulse Resp B/P (MAP) Pulse Ox O2 Delivery O2 Flow Rate FiO2 02/07/17 06:55 36.8 83 18 109/65 (80) 94 Room Air 02/07/17 00:15 Room Air 02/06/17 22:47 37.2 88 18 103/63 (76) 94 Room Air 02/06/17 20:59 37.3 95 16 109/57 Room Air 02/06/17 20:30 Room Air 02/06/17 20:00 37.3 95 16 109/57 (74) 98 Room Air 02/06/17 19:36 36.7 61 16 111/61 98 02/06/17 19:34 61 16 111/61 98 Room Air 02/06/17 17:32 67 16 104/53 98 Room Air 02/06/17 14:01 36.7 106 20 92/53 96 Room Air Lab Results: Results Past 24 Hours Test 02/06/17 15:40 02/07/17 05:00 02/07/17 08:57 Range/Units White Blood Count 14.14 14.59 4.8-10.8 K/uL Red Blood Count 2.83 3.10 4.2-5.4 M/uL Hemoglobin 7.5 8.2 12.0-16.0 g/dL Hematocrit 23.4 25.8 37-47 % Mean Corpuscular Volume 82.7 83.2 80-100 fL Mean Corpuscular Hemoglobin 26.5 26.5 25-34 pg Mean Corpuscular Hemoglobin Concent 32.1 31.8 32-36 g/dl Platelet Count 357 354 130-400 K/uL Neutrophils (%) (Auto) 70.8 % Lymphocytes (%) (Auto) 17.9 % Monocytes (%) (Auto) 5.6 % Eosinophils (%) (Auto) 4.0 % Basophils (%) (Auto) 1.2 % Neutrophils # (Auto) 10.02 1.4-6.5 K/uL Lymphocytes # (Auto) 2.53 1.2-3.4 K/uL Monocytes # (Auto) 0.79 0.11-0.59 K/uL Eosinophils # (Auto) 0.56 0-0.5 K/uL Basophils # (Auto) 0.17 0-0.2 K/uL RDW Standard Deviation 85.5 87.6 36.4-46.3 fL RDW Coefficient of Variation 28.8 29.0 11.5-14.5 % Immature Granulocyte % (Auto) 0.5 % Immature Granulocyte # (Auto) 0.07 0.00-0.02 K/uL Large Platelets 2+ Giant Platelets 1+ Poikilocytosis PRESENT Anisocytosis PRESENT Schistocytes 1+ Erythrocyte Sedimentation Rate 15 0-21 mm/hr Prothrombin Time 11.0 9.0-12.0 SECONDS Prothromb Time International Ratio 1.0 0.9-1.1 Activated Partial Thromboplast Time 28.3 21.0-31.0 SECONDS Partial Thromboplastin Ratio 1.1 Sodium Level 144 145 136-145 mmol/L Potassium Level 4.1 4.1 3.5-5.1 mmol/L Chloride Level 113 113 98-107 mmol/L Carbon Dioxide Level 23 27 21-32 mmol/L Anion Gap 8.0 5.0 3-11 mmol/L Blood Urea Nitrogen 14 14 7-18 mg/dl Creatinine 0.71 0.72 0.60-1.20 mg/dl Est Creatinine Clear Calc Drug Dose 54.4 53.7 ml/min Estimated GFR () 97.3 95.6 Estimated GFR (Non- 83.9 82.5 BUN/Creatinine Ratio 19.1 20.0 10-20 Random Glucose 88 86 70-99 mg/dl Uric Acid 7.2 2.6-7.2 mg/dl Calcium Level 8.1 7.7 8.5-10.1 mg/dl Total Bilirubin 0.3 0.2-1 mg/dl Direct Bilirubin < 0.1 0-0.2 mg/dl Aspartate Amino Transf (AST/SGOT) 7 15-37 U/L Alanine Aminotransferase (ALT/SGPT) 8 12-78 U/L Alkaline Phosphatase 91 45-117 U/L C-Reactive Protein 2.13 0-0.29 mg/dl Total Protein 6.3 6.4-8.2 gm/dl Albumin 2.8 3.4-5.0 gm/dl 25-Hydroxy Vitamin D Total 8.2 30-100 ng/ml Procalcitonin < 0.05 0-0.5 ng/ml Thyroid Stimulating Hormone (TSH) 0.622 0.300-4.500 uIu/ml Lyme Disease IgG Antibody NEG NEG Lyme Disease IgM Antibody EQUIVOCAL NEG Anti-Streptolysin O Antibody Screen NEG <200 IU IU/ml Platelet Estimate INCREASED Microbiology Results 02/07/17 Blood Culture, Cory Batch Pending 02/07/17 Blood Culture, Cory Batch Pending 02/06/17 MRSA DNA Surveillance Screen - Final, Complete Specimen Positive for MRSA by DNA Probe 02/06/17 Gram Stain - Final, Resulted 02/06/17 Wound Culture - Preliminary, Resulted Gram Positive Cocci Corynebacterium Species
[2017-02-07] MEDS ORDERED: CLINDAMYCIN IV 600 MG in DEXTROSE 5% ADD-VANTAGE 50ML 50 ML IV SCH (14:00)
--- NOTE | 2017-02-07 14:17 | Clinical Documentation Query ---
CLINICAL DOCUMENTATION QUERY 76 year old female who presents to the Emergency Room with complaints of a worsening wound infection. This query is to define the nature of left hip wound. ED questioning reveals the follow chain of events. The patient had hip surgery by Dr. Avendaño on 10/18/16. She states that over the past two weeks she has had some drainage from one of the incisions on her hip. She called [facility] last week and was advised to follow-up with her PCP. She called her PCP's office 3 days ago and was told to come to the ED. The patient did not come at that time. In your clinical opinion is this patient being managed for: ( X ) Postoperative non healing wound infection. ( ) Puncture wound infection related to needle biopsy ( ) Traumatic puncture wound to left hip of unknown origin ( ) Other explanation of clinical findings (Please Explain) ( ) Unable to determine (Please Define) ( ) Need to Discuss ( ) Not Agree The medical record reflects the following clinical findings, treatment, and risk factors. Clinical Indicators: As above. WBC 14.14, Superficial wound culture is growing gram positive cocci. Treatment: WOCN consult, Risk Factors: Age, hip sx, Myelodysplastic syndrome. Please clarify and document your clinical opinion in the progress notes and discharge summary. Terms such as "probable", "suspected", "likely", "questionable", "possible", or "still to be ruled out" are acceptable. IF IN AGREEMENT, YOU MUST DOCUMENT ABOVE DIAGNOSTIC STATEMENT IN DAILY PROGRESS NOTES AND DISCHARGE SUMMARY. This document is not part of the patient's record. Thank You, Walt Alvarado, HARRY [phone]
[2017-02-07] MEDS: ACETAMINOPHEN 325 MG TAB PO PRN (14:32)
[2017-02-07 15:13] VITALS: BP 92/51; PULSE 82; TEMP 37; O2SAT 96
--- NOTE | 2017-02-07 15:28 | Progress Note ---
Progress Note Date of Service Feb 07, 2017. Progress Note ID Consult Dictated #[id number] A/P: 1. Infected L hip -change to vanco -follow cultures -ortho eval pending -will follow, thank you
[2017-02-07] MEDS ORDERED: VANCOMYCIN INJ 1,250 MG in SODIUM CHLORIDE 0.9% 250ML 250 ML IV ONE (16:00)
--- NOTE | 2017-02-07 16:02 | Pharmacy Progress Note ---
Pharmacy Abx Initial Consult Date of Service Feb 07, 2017. Pharmacy Dosing Scope Date of Consult: 02/07/17 Consultation requested by: Dr. Fields Pharmacy is consulted to initiate Vancomycin IV dosing therapy, order appropriate labs and adjust drug dose/frequency. Subjective The patient is a 76 year old female admitted on Feb 06, 2017 at 18:22. Objective Height (Feet): 5 Height (Inches): 4.00 Weight (Kilograms): 49.600 Vital Signs (Past 12Hrs) Vital Signs Past 12 Hours Date Time Temp Pulse Resp B/P (MAP) Pulse Ox O2 Delivery O2 Flow Rate FiO2 02/07/17 15:13 37.0 82 18 92/51 (65) 96 02/07/17 08:20 Room Air 02/07/17 06:55 36.8 83 18 109/65 (80) 94 Room Air Lab Results (24Hrs) Test 02/07/17 05:00 02/07/17 08:57 Sodium Level 145 mmol/L (136-145) Potassium Level 4.1 mmol/L (3.5-5.1) Chloride Level 113 mmol/L (98-107) Carbon Dioxide Level 27 mmol/L (21-32) Anion Gap 5.0 mmol/L (3-11) Blood Urea Nitrogen 14 mg/dl (7-18) Creatinine 0.72 mg/dl (0.60-1.20) Est Creatinine Clear Calc Drug Dose 53.7 ml/min Estimated GFR () 95.6 Estimated GFR (Non- 82.5 BUN/Creatinine Ratio 20.0 (10-20) Random Glucose 86 mg/dl (70-99) Calcium Level 7.7 mg/dl (8.5-10.1) White Blood Count 14.59 K/uL (4.8-10.8) Red Blood Count 3.10 M/uL (4.2-5.4) Hemoglobin 8.2 g/dL (12.0-16.0) Hematocrit 25.8 % (37-47) Mean Corpuscular Volume 83.2 fL (80-100) Mean Corpuscular Hemoglobin 26.5 pg (25-34) Mean Corpuscular Hemoglobin Concent 31.8 g/dl (32-36) RDW Standard Deviation 87.6 fL (36.4-46.3) RDW Coefficient of Variation 29.0 % (11.5-14.5) Platelet Count 354 K/uL (130-400) Platelet Estimate INCREASED Micro Results Date/Time Source Procedure Growth Status 02/07/17 14:14 Blood Blood Culture Pending Received 02/07/17 14:10 Blood Blood Culture Pending Received 02/06/17 20:30 Nasal MRSA DNA Surveillance Screen - Final Specimen Positive for MRSA by DNA Probe Complete 02/06/17 15:00 Incision Site Hip , Left Gram Stain - Final Resulted 02/06/17 15:00 Wound Culture - Preliminary Gram Positive Cocci Corynebacterium Species Resulted Assessment & Plan Assessment 76 year old female initiated on Vancomycin IV for the treatment of infected L hip. ID following. Blood cultures X 2 pending. Plan Vancomycin for treatment of bone/joint infection Vancomycin IV * Loading dose: 1250 mg (25 mg/kg) * Maintenance dose: 750 mg IV (15 mg/kg) every 14 hours * Goal trough level for bone/joint infection: 15 to 20 mcg/mL * Trough level ordered for 02/09/17 @0930 prior to 1000 dose. * This dose is aggressive but typically low body weight/elderly seem to clear Vancomycin faster than estimated. I dosed on the half life as I would rather be slightly over 20 then subtherapeutic. Pharmacy will continue to follow and will adjust dose/frequency as necessary. Thank you.
--- NOTE | 2017-02-07 20:07 | ORTHOPEDIC CONSULTATION ---
DATE OF CONSULTATION: 02/07/2017 CHIEF COMPLAINT: Left hip pain and drainage. HISTORY OF PRESENT ILLNESS: This patient is a 76-year-old woman who is well-known to me with an extensive medical and surgical history. Most notably, she had a left hip replacement performed on September 22 for a failed ORIF of a hip fracture that had occurred previously. She had intractable pain. Her surgery had been delayed multiple times because of medical comorbidities, but eventually was accomplished on September 22. She had an uneventful postoperative course. She did complain of pain, but initially was uneventful. Eventually, she developed a small draining sinus on the lateral side of her hip at the site of removal of the previous fixation screws. NOTE, THIS IS NOT A SURGICAL INCISION FOR HER HIP REPLACEMENT. THIS WAS FOR REMOVAL OF FIXATION SCREWS. THE PATIENT STATES THAT THIS DRAINS FREQUENTLY. She has been seen multiple times in the last week in the office, has been worked up extensively with an aspiration which showed very little fluid from the hip joint and showed no evidence of infection. She presented to the Emergency Room one evening prior because of complaints of ongoing pain and drainage. PHYSICAL EXAMINATION: The patient is in bed. She is pleasant and she is afebrile. There is a patch over the left hip which was open. At this point, there is no appreciable drainage on the patch at all. There is a small punctate sinus that is perhaps 5 mm in diameter. I did not probe sinus. The patient is overly sensitive even touching her skin, she says causes discomfort, but she can move her hip in bed with little or no discomfort. Leg lengths are equal. Neurological and vascular function are intact. PERTINENT LABORATORY VALUES: Sedimentation rate is 15. C-reactive protein is 2.13. Vitamin D is 8.2, albumin is 2.8, hemoglobin is 7.5, white blood cell count is 14.4 with 70% neutrophils, 17% lymphocytes DISCUSSION: Hip pain and nonhealing wound, left hip. This is a very difficult problem. This patient has multiple comorbidities including myeloproliferative disorder. However, she has other comorbidities that are correctable and include severe vitamin D deficiency with the level of 8.2, a strong smoking history, and extreme malnutrition. It is my opinion that this patient has no chance of healing any wound surgical or nonsurgical until and if some of these correctable parameters are addressed. I believe that she needs massive doses of vitamin D at this time to get a blood level of at least 40-50 ng/dL. She also requires nutritional supplementation with protein supplementation as she is very low in total protein and albumin. Would also discuss smoking cessation to include no nicotine replacement as nicotine has shown to cause at least 2-3 times higher likelihood of nonhealing wounds and wound infection. In addition at this point, the patient's lab studies including a sed rate of 15 and a CRP of 2.3, do not speak to acute infection. The culture that is now growing corynebacterium was a surface culture. These are known to be extremely unreliable and I would not diagnose this as a wound or as a hip infection at this time. She is more likely has a nonhealing wound again from chronic malnutrition, vitamin D deficiency and a history of smoking and myeloproliferative disorder. I have discussed with the patient at this point that I do not recommend surgery. I do not know that antibiotics are necessary, but would strongly recommend nutritional consultation and aggressive nutritional supplementation to improve the above mentioned parameters. I will be happy to discuss this case with you.
--- NOTE | 2017-02-07 20:15 | INFECT. DISEASE CONSULTATION ---
DATE OF CONSULTATION: 02/07/2017 REQUESTING PHYSICIAN: Dr. Chavez. HISTORY OF PRESENT ILLNESS: This is a 76-year-old female who was admitted after she had worsening drainage from her left hip. She states that she initially had surgery after a fall and fracture in July 2016. This initial surgery was performed in [place], [place]. She subsequently moved to the [facility] to be closer to family. One of her screws came loose and she had a repeat surgery done here in October 2016. She did well postoperatively up until 3 weeks ago when she noticed some serous drainage from the mid portion of her incision. She states that since her surgery in October she had a small scab that remained, but she denied any pain, bleeding or drainage until 3 weeks ago. Again, she describes this as clear and serous in nature. She did follow with her physicians and had a culture done on the which showed rare Gram-positive cocci on the Gram stain, however, the culture was final and negative. She had a repeat culture done on January 25, this Gram stain was negative and the culture was negative. She has not been placed on any antibiotics during this time. At the end of last week she noticed that the drainage changed in nature and became more purulent and blood tinged. She also had significant pain associated with this. She did call both her orthopedic physician as well as her primary care physician and she was instructed to come to the hospital. She did not want to be admitted over the weekend and waited until yesterday to come in for evaluation. She did have a culture obtained in the ER which has Gram-positive cocci on Gram stain. Culture is pending. Blood cultures were also ordered and are pending. The sed rate was normal at 15. She did have a leukocytosis of 14.5 this morning. She has been afebrile since admission. She was placed on clindamycin empirically and appears to be tolerating this well. Again, she has not had prior antibiotics at home prior to this admission. 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 She states that her tailbone was infected and she did receive a prolonged course of IV antibiotics. She states that wound has healed. She did have a wound VAC for some time as well. She currently denies any fevers or chills. She has no chest pain, cough, nausea, vomiting, diarrhea, abdominal pain or urinary complaints. Her only complaint is of pain and drainage from the left hip incision. She denies any trauma or reopening of the wound. PAST MEDICAL HISTORY: Significant for anemia, breast cancer, peptic ulcer disease, myelodysplastic syndrome. PAST SURGICAL HISTORY: Significant for open reduction and internal fixation of the left hip with subsequent repair in October 2016, cholecystectomy, hysterectomy and mastectomy in 1990. FAMILY HISTORY: Noncontributory. SOCIAL HISTORY: Significant for daily tobacco use. She denies any alcohol or drug use. ALLERGIES: SHE HAS ALLERGIES TO METALS. She has no known antibiotic allergies. CURRENT MEDICATIONS: Include clindamycin, Plavix, hydroxyurea, nicotine patch, DuoNeb, Ultram, subQ heparin, Elavil, Advair, Protonix, Lyrica, Restoril, Tylenol and Zofran. PHYSICAL EXAMINATION: VITAL SIGNS: She is afebrile, pulse 82, respiratory rate 18, blood pressure 92/51, oxygen saturation is 96% on room air. GENERAL: She is awake, alert and oriented x3. She is in no acute distress. HEENT: Mucous membranes are moist. Extraocular muscles are intact. HEART: Regular. LUNGS: Clear. ABDOMEN: Soft, nontender and nondistended. EXTREMITIES: There is no lower extremity edema bilaterally. SKIN: Without rash. I did evaluate her wound with a wound care nurse and she had significant purulent drainage on the old dressing. This was removed. She did have an area of fluctuance proximal to the hip incision. Upon palpation, purulent drainage was expressed from the site of her previous scab. There was no surrounding erythema or warmth; however, this was tender to palpation. LABORATORY STUDIES: CBC today reveals a white blood cell count of 14.5, hemoglobin 8.2, platelets are 354, sed rate yesterday was 15. Chemistry panel today reveals a sodium of 145, potassium 4.1, chloride 113, bicarbonate 27, BUN 14, creatinine 0.7, glucose is 86. LFTs revealed AST of 7, ALT of 8. Lyme titer is equivocal. Western blot is pending. Again, superficial wound culture yesterday is growing Gram-positive cocci. Blood cultures are pending. Old micro reveals negative cultures from the and . X-rays were negative in the ER. Lower extremity ultrasound done on 01/23/2017 shows a 2.4 x 1.7 x 0.8 cm subcutaneous fluid collection in the left hip with the second collection measuring 8.6 x 2.9 x 3.5 cm, which may be intermuscular. ASSESSMENT AND PLAN: Infected left hip incision with questionable underlying abscess. She will be transitioned to vancomycin with her history of methicillin-resistant Staphylococcus aureus, pending the identification of the Gram-positive cocci from her wound culture. Blood cultures are pending. An orthopedic evaluation is pending. We will follow along with you. Thank you for this consultation.
[2017-02-07] MEDS: PREGABALIN 75 MG CAP PO SCH (21:01)
[2017-02-07] MEDS: AMITRIPTYLINE HCL 25 MG TAB PO SCH (21:01)
[2017-02-07] MEDS: TEMAZEPAM 15 MG CAP PO SCH (21:02)
[2017-02-07 23:20] VITALS: BP 112/62; PULSE 88; TEMP 36.9; O2SAT 96
[2017-02-08] MEDS: VANCOMYCIN INJ 750 MG in SODIUM CHLORIDE 0.9% 250ML 250 ML IV SCH ×2 (05:34→19:53)
[2017-02-08 07:18] LABS: BASO % 1.2 %; BASO ABS # 0.25 K/uL (0-0.2); HEMATOCRIT 24.3 % (37-47); IG% 0.6 %; LYMPH % 11.7 %; LYMPH ABS # 2.39 K/uL (1.2-3.4); MEAN CELL VOLUME 82.7 fL (80-100); MEAN CORPUSCULAR HEMOGLOBIN 26.5 pg (25-34); MEAN CORPUSCULAR HGB CONC 32.1 g/dl (32-36); MONO % 5.2 %; NEUT % 76.3 %; PLATELET COUNT 315 K/uL (130-400); RED BLOOD COUNT 2.94 M/uL (4.2-5.4)
[2017-02-08 07:44] VITALS: BP 108/68; PULSE 92; TEMP 37.6; O2SAT 94
[2017-02-08 08:59] LABS: ANISOCYTOSIS PRESENT; COMPLETE YES; GIANT PLATELETS 1+; OVALOCYTES 1+; POIKILOCYTOSIS PRESENT; VACUOLIZATION 1+
[2017-02-08] MEDS: FLUTICASONE/SALMETEROL 250/50 (ADVAIR) 14 PUFF/1 INHALER INH SCH ×2 (09:05→21:02)
[2017-02-08] MEDS: PANTOprazole SOD 40 MG TAB PO SCH ×2 (09:06→21:10)
[2017-02-08] MEDS: NICOTINE 14 MG/24 HR TDSY TD SCH (09:06)
[2017-02-08] MEDS: CLOPIDOGREL BISULFATE 75 MG TAB PO SCH (09:09)
[2017-02-08] MEDS: HEPARIN SOD 5000 UNIT/0.5 ML CARP SQ SCH ×2 (09:09→21:00)
[2017-02-08] MEDS ORDERED: PROPOFOL IV EMULSION 10 MG/ML 20 ML VIAL IV ONE (09:30)
[2017-02-08] MEDS ORDERED: LIDOCAINE HCL 2% 2 ML VIAL (20MG/ML) INFIL ONE (09:30)
[2017-02-08] MEDS: ACETAMINOPHEN 325 MG TAB PO PRN ×2 (11:01→20:22)
--- NOTE | 2017-02-08 14:09 | Progress Note ---
Internal Med Progress Note Date of Service: Feb 08, 2017. Provider Documentation: SUBJECTIVE: Seen and examined at bedside. States having nausea and 2 Loose BMs today associated with abd cramps. Denies left hip pain. Has low grade fever this morning. Denies chest pain, SOB. Offers no other complaints. OBJECTIVE: Vital Signs-as noted below Physical Exam: General Appearance:Thin, Fragile No apparent distress Head: normocephalic, Atraumatic Eyes: normal inspection, EOMI, PERRL Neck: supple, Trachea midline Respiratory/Chest: Decreased breath sounds, CTA Cardiovascular: S1, S2, No murmur Abdomen/GI:Soft, Non tender, Bowel sounds present Extremities/Musculoskelatal:normal inspection, no edema, Left Hip in bandage Neurologic/Psych:AAOX3, grossly no focal neurological deficits Skin: normal color, warm Lab data as noted below. ASSESSMENT & PLAN: Left Hip non healing wound Infection S/p Hip surgery done by Dr. Avendaño on 10/18/16 Wound culture: Gram positive cocci Follow up cultures Continue IV Vancomycin per ID Appreciate ID, Ortho input Continue wound care Poor wound healing secondary to chronic malnutrition Nausea/Diarrhea: Check stool for C.diff Anemia Hb baseline: around 7-8 S/P 2 units PRBC, 2 weeks ago. Hb:7.8.today Scheduled for EGD as an outpatient Essential Thrombocythemia Continue anagrelide, hydroxyurea and plavix Monitor Platelets Follow with as outpatient Tobacco abuse Nicotine patch counselled to quit smoking H/O breast Cancer: S/P surgery Vitamin D deficiency: Continue Vit D supplements Needs recheck of Vit D levels as outpatient Chronic Malnutrition: [employer] consulted for nutritional supplements DVT Px: Heparin SQ Code Status: Full code Vital Signs: Date Time Temp Pulse Resp B/P (MAP) Pulse Ox O2 Delivery O2 Flow Rate FiO2 02/08/17 08:05 Room Air 02/08/17 07:44 37.6 92 16 108/68 (81) 94 Room Air 02/07/17 23:53 Room Air 02/07/17 23:20 36.9 88 18 112/62 (79) 96 Room Air 02/07/17 16:23 Room Air 02/07/17 15:13 37.0 82 18 92/51 (65) 96 Lab Results: Results Past 24 Hours Test 02/08/17 06:50 Range/Units White Blood Count 20.40 4.8-10.8 K/uL Red Blood Count 2.94 4.2-5.4 M/uL Hemoglobin 7.8 12.0-16.0 g/dL Hematocrit 24.3 37-47 % Mean Corpuscular Volume 82.7 80-100 fL Mean Corpuscular Hemoglobin 26.5 25-34 pg Mean Corpuscular Hemoglobin Concent 32.1 32-36 g/dl Platelet Count 315 130-400 K/uL Neutrophils (%) (Auto) 76.3 % Lymphocytes (%) (Auto) 11.7 % Monocytes (%) (Auto) 5.2 % Eosinophils (%) (Auto) 5.0 % Basophils (%) (Auto) 1.2 % Neutrophils # (Auto) 15.54 1.4-6.5 K/uL Lymphocytes # (Auto) 2.39 1.2-3.4 K/uL Monocytes # (Auto) 1.07 0.11-0.59 K/uL Eosinophils # (Auto) 1.03 0-0.5 K/uL Basophils # (Auto) 0.25 0-0.2 K/uL RDW Standard Deviation 84.7 36.4-46.3 fL RDW Coefficient of Variation 28.8 11.5-14.5 % Immature Granulocyte % (Auto) 0.6 % Immature Granulocyte # (Auto) 0.12 0.00-0.02 K/uL Toxic Vacuolation 1+ Giant Platelets 1+ Poikilocytosis PRESENT Anisocytosis PRESENT Ovalocytes 1+
[2017-02-08] MEDS: ONDANSETRON 8 MG TAB PO PRN ×2 (14:21→20:21)
[2017-02-08 15:21] VITALS: BP 98/57; PULSE 90; TEMP 37.4; O2SAT 93
--- NOTE | 2017-02-08 15:47 | Progress Note ---
Subjective Date of Service: Feb 08, 2017. Subjective Pt evaluation today including: conversation w/ patient, physical exam, chart review, lab review pt seen in follow up, had one episode diarrhea this afternoon, clinda stopped yesterday, now on vanco. no abd pain, no n/v. no f/c but tmax 37.6 this am. still with pain and drainage. no wound dressing change yet today, wound culture with S. aureus. blood cultures pending. all remaining ros reviewed and are negative. for vit D replacement. wbc has increased to 20 today Problem List Medical Problems: (1) Anemia Status: Chronic (2) Chronic anemia Status: Acute (3) History of hip fracture Status: Acute (4) History of pneumonia Status: Acute (5) Intractable pain Status: Acute (6) Myelodysplasia (myelodysplastic syndrome) Status: Acute (7) Myeloproliferative disease Status: Acute (8) Peptic ulcer disease Status: Acute (9) Pneumonia Status: Acute (10) Seroma of musculoskeletal structure after musculoskeletal system procedure Status: Acute Social History Problems: (1) History of repair of left hip joint Status: Acute Objective Vital Signs Date Time Temp Pulse Resp B/P (MAP) Pulse Ox O2 Delivery O2 Flow Rate FiO2 02/08/17 15:21 37.4 90 16 98/57 (71) 93 02/08/17 08:05 Room Air 02/08/17 07:44 37.6 92 16 108/68 (81) 94 Room Air 02/07/17 23:53 Room Air 02/07/17 23:20 36.9 88 18 112/62 (79) 96 Room Air 02/07/17 16:23 Room Air Physical Exam General Appearance: WD/WN, no apparent distress, + cachetic, + thin Eyes: normal inspection, EOMI Neck: supple Respiratory/Chest: lungs clear, normal breath sounds, no respiratory distress Cardiovascular: regular rate, rhythm, no edema Abdomen: non tender, soft Extremities: non-tender, normal inspection, no pedal edema Neurologic/Psychiatric: alert, oriented x 3 Skin: normal color Comments: dressing saturated with purulent drainage. removed, still with induration medial to pinhole tract, tender to light palpation, no erythema Laboratory Results Item Value Date Time Gram Stain - Final Resulted 02/06/17 1500 Incision Site Hip , Left Last 24 Hours Test 02/08/17 06:50 White Blood Count 20.40 K/uL Red Blood Count 2.94 M/uL Hemoglobin 7.8 g/dL Hematocrit 24.3 % Mean Corpuscular Volume 82.7 fL Mean Corpuscular Hemoglobin 26.5 pg Mean Corpuscular Hemoglobin Concent 32.1 g/dl Platelet Count 315 K/uL Neutrophils (%) (Auto) 76.3 % Lymphocytes (%) (Auto) 11.7 % Monocytes (%) (Auto) 5.2 % Eosinophils (%) (Auto) 5.0 % Basophils (%) (Auto) 1.2 % Neutrophils # (Auto) 15.54 K/uL Lymphocytes # (Auto) 2.39 K/uL Monocytes # (Auto) 1.07 K/uL Eosinophils # (Auto) 1.03 K/uL Basophils # (Auto) 0.25 K/uL RDW Standard Deviation 84.7 fL RDW Coefficient of Variation 28.8 % Immature Granulocyte % (Auto) 0.6 % Immature Granulocyte # (Auto) 0.12 K/uL Toxic Vacuolation 1+ Giant Platelets 1+ Poikilocytosis PRESENT Anisocytosis PRESENT Ovalocytes 1+ Assessment and Plan (1) Abscess Assessment & Plan: concerned that previous collection which appears to have been sterile by 2 negative cultures without pt on abx may now be infected. Per ortho note this is site of previous loose screw. would suggest repeat ultrasound , ? aspiration. will continue vanco pending sensitivities. blood cultures pending. did receive clinda, ? cause of diarrhea, if persists would check c diff. will follow. continue wound care. (2) Leukocytosis
[2017-02-08] MEDS: PREGABALIN 75 MG CAP PO SCH (21:09)
[2017-02-08] MEDS: AMITRIPTYLINE HCL 25 MG TAB PO SCH (21:09)
[2017-02-08] MEDS: TEMAZEPAM 15 MG CAP PO SCH (21:10)
[2017-02-08] MEDS: TRAMADOL HCL 50 MG TAB PO PRN (22:26)
[2017-02-08 22:57] VITALS: BP 102/65; PULSE 90; TEMP 36.5; O2SAT 94
[2017-02-09 06:09] LABS: BASO % 1.7 %; BASO ABS # 0.29 K/uL (0-0.2); EOS % 7.1 %; HEMATOCRIT 23.2 % (37-47); IG% 0.8 %; LYMPH % 13.1 %; MEAN CORPUSCULAR HEMOGLOBIN 24.7 pg (25-34); MEAN CORPUSCULAR HGB CONC 30.2 g/dl (32-36); MONO % 8.3 %; PLATELET COUNT 375 K/uL (130-400); RED BLOOD COUNT 2.83 M/uL (4.2-5.4); WHITE BLOOD COUNT 16.77 K/uL (4.8-10.8)
[2017-02-09 06:44] LABS: ANISOCYTOSIS PRESENT; COMPLETE YES; LARGE PLATELETS 1+; POIKILOCYTOSIS PRESENT
[2017-02-09 06:51] LABS: BUN/CREATININE RATIO 14.7 (10-20); CALCIUM 7.6 mg/dl (8.5-10.1); CREATININE 0.71 mg/dl (0.60-1.20); POTASSIUM 3.8 mmol/L (3.5-5.1)
[2017-02-09 07:43] VITALS: O2SAT 92
[2017-02-09 07:45] VITALS: BP 99/62; PULSE 68; TEMP 36.8; O2SAT 92
[2017-02-09] MEDS: ACETAMINOPHEN 325 MG TAB PO PRN ×2 (08:04→16:55)
[2017-02-09] MEDS ORDERED: VANCOMYCIN CONSULT ACTIVE PRN (09:00)
[2017-02-09] MEDS: FLUTICASONE/SALMETEROL 250/50 (ADVAIR) 14 PUFF/1 INHALER INH SCH ×2 (09:02→21:13)
[2017-02-09] MEDS: PANTOprazole SOD 40 MG TAB PO SCH ×2 (09:03→21:16)
[2017-02-09] MEDS: CLOPIDOGREL BISULFATE 75 MG TAB PO SCH (09:03)
[2017-02-09] MEDS: NICOTINE 14 MG/24 HR TDSY TD SCH (09:04)
[2017-02-09 09:06] LABS: 18KDIGG BAND NONREACTIVE (NONREACTIVE); 23KDIGG BAND NONREACTIVE (NONREACTIVE); 23KDIGM BAND NONREACTIVE (NONREACTIVE); 28KDIGG BAND NONREACTIVE (NONREACTIVE); 30KDIGG BAND NONREACTIVE (NONREACTIVE); 39KDIGG BAND NONREACTIVE (NONREACTIVE); 39KDIGM BAND NONREACTIVE (NONREACTIVE); 41KDIGG BAND NONREACTIVE (NONREACTIVE); 41KDIGM BAND NONREACTIVE (NONREACTIVE); 45KDIGG BAND REACTIVE (NONREACTIVE); 58KDIGG BAND NONREACTIVE (NONREACTIVE); 66KDIGG BAND REACTIVE (NONREACTIVE); 93KDIGG BAND REACTIVE (NONREACTIVE)
[2017-02-09] MEDS: HYDROXYUREA 500 MG CAP PO SCH (09:08)
[2017-02-09] MEDS: HEPARIN SOD 5000 UNIT/0.5 ML CARP SQ SCH ×2 (09:08→21:00)
[2017-02-09] MEDS ORDERED: VANCOMYCIN TROUGH SCH (09:30)
[2017-02-09] MEDS: VANCOMYCIN INJ 750 MG in SODIUM CHLORIDE 0.9% 250ML 250 ML IV SCH (11:06)
--- NOTE | 2017-02-09 13:23 | Pharmacy Progress Note ---
Pharmacy Abx Dose Short Note Date of Service Feb 09, 2017. Assessment & Plan Assessment 76 year old female receiving vancomycin for treatment of L hip infection with underlying abscess Day # 3 of antimicrobial therapy. ID has been consulted and is following the patient Hip cultures growing MRSA (vanc ALONSO = 2) and corynebacterium Blood cultures - no growth to date Plan Vancomycin * Trough level of 12.5 mcg/mL is subtherapeutic - did note this is not quite steady state and level drawn ~1 hr late but need to reach closer to 20 mcg/mL w / vanc ALONSO of 2 * Change to 750 mg IV every 12 hours * Goal trough level for joint infection w/ underlying abscess w/ vanc ALONSO = 2: ~ 20 mcg/mL * Trough level ordered for: 02/11/17 prior to the 4th dose of the new regimen Pharmacy will continue to follow and will adjust dose/frequency as necessary. Thank you.
--- NOTE | 2017-02-09 13:41 | Progress Note ---
Subjective Date of Service: Feb 09, 2017. Subjective wound culture with MRSA. Blood cultures negative. wbc improved today. on vanco, michael 2. no fevers overnight. Problem List Medical Problems: (1) Anemia Status: Chronic (2) Chronic anemia Status: Acute (3) History of hip fracture Status: Acute (4) History of pneumonia Status: Acute (5) Intractable pain Status: Acute (6) Myelodysplasia (myelodysplastic syndrome) Status: Acute (7) Myeloproliferative disease Status: Acute (8) Peptic ulcer disease Status: Acute (9) Pneumonia Status: Acute (10) Seroma of musculoskeletal structure after musculoskeletal system procedure Status: Acute Social History Problems: (1) History of repair of left hip joint Status: Acute Objective Vital Signs Date Time Temp Pulse Resp B/P (MAP) Pulse Ox O2 Delivery O2 Flow Rate FiO2 02/09/17 07:50 Room Air 02/09/17 07:45 36.8 68 18 99/62 (74) 92 Room Air 02/09/17 07:43 92 Room Air 02/08/17 23:23 Room Air 02/08/17 22:57 36.5 90 14 102/65 (77) 94 Room Air 02/08/17 15:21 37.4 90 16 98/57 (71) 93 02/08/17 15:15 Room Air Laboratory Results Last 24 Hours Test 02/09/17 05:15 02/09/17 10:32 White Blood Count 16.77 K/uL Red Blood Count 2.83 M/uL Hemoglobin 7.0 g/dL Hematocrit 23.2 % Mean Corpuscular Volume 82.0 fL Mean Corpuscular Hemoglobin 24.7 pg Mean Corpuscular Hemoglobin Concent 30.2 g/dl Platelet Count 375 K/uL Neutrophils (%) (Auto) 69.0 % Lymphocytes (%) (Auto) 13.1 % Monocytes (%) (Auto) 8.3 % Eosinophils (%) (Auto) 7.1 % Basophils (%) (Auto) 1.7 % Neutrophils # (Auto) 11.56 K/uL Lymphocytes # (Auto) 2.20 K/uL Monocytes # (Auto) 1.39 K/uL Eosinophils # (Auto) 1.19 K/uL Basophils # (Auto) 0.29 K/uL RDW Standard Deviation 86.2 fL RDW Coefficient of Variation 29.3 % Immature Granulocyte % (Auto) 0.8 % Immature Granulocyte # (Auto) 0.14 K/uL Large Platelets 1+ Poikilocytosis PRESENT Anisocytosis PRESENT Sodium Level 148 mmol/L Potassium Level 3.8 mmol/L Chloride Level 117 mmol/L Carbon Dioxide Level 22 mmol/L Anion Gap 9.0 mmol/L Blood Urea Nitrogen 10 mg/dl Creatinine 0.71 mg/dl Est Creatinine Clear Calc Drug Dose 54.4 ml/min Estimated GFR () 97.3 Estimated GFR (Non- 83.9 BUN/Creatinine Ratio 14.7 Random Glucose 86 mg/dl Calcium Level 7.6 mg/dl Vancomycin Level Trough 12.5 mcg/ml Assessment and Plan (1) Abscess Assessment & Plan: will change to dapto as this once daily, hopefully insurance able to cover for home. suggest repeat ultrasound as she had previous collection. If persists, may need I&D abscess and ? vac. blood cultures negative , ok for picc line from ID standpoint. (2) Leukocytosis
[2017-02-09 15:25] VITALS: BP 99/56; PULSE 84; TEMP 37.4; O2SAT 97
[2017-02-09] MEDS: DAPTOMYCIN IV SCH (15:42)
[2017-02-09] MEDS: SODIUM CHLORIDE 0.9% IV SCH (15:42)
[2017-02-09] MEDS: ONDANSETRON 8 MG TAB PO PRN (16:54)
--- NOTE | 2017-02-09 17:07 | Progress Note ---
Internal Med Progress Note Date of Service: Feb 09, 2017. Provider Documentation: SUBJECTIVE: Seen and examined at bedside. States having a bad headache today. Reports decreased appetite. Diarrhea subsided. Denies left hip pain. Denies chest pain, SOB. Offers no other complaints. OBJECTIVE: Vital Signs-as noted below Physical Exam: General Appearance:Thin, Fragile No apparent distress Head: normocephalic, Atraumatic Eyes: normal inspection, EOMI, PERRL Neck: supple, Trachea midline Respiratory/Chest: Decreased breath sounds, CTA Cardiovascular: S1, S2, No murmur Abdomen/GI:Soft, Non tender, Bowel sounds present Extremities/Musculoskelatal:normal inspection, no edema, Left Hip in bandage Neurologic/Psych:AAOX3, grossly no focal neurological deficits Skin: normal color, warm Lab data as noted below. ASSESSMENT & PLAN: Left Hip non healing wound Infection S/p Hip surgery done by Dr. Avendaño on 10/18/16 Wound culture: MRSA Blood culture:Negative to date S/P IV Vancomycin changed to Daptomycin on 02/09/17 Appreciate ID, Ortho input Continue wound care Poor wound healing secondary to chronic malnutrition Will get USD to r/o abscess Leukocytosis improving Nausea/Diarrhea: Stool: Negative for C.diff Anemia Hb baseline: around 7-8 S/P 2 units PRBC, 2 weeks ago. Hb:7.0 today Scheduled for EGD as an outpatient Monitor Hb Essential Thrombocythemia Continue anagrelide, hydroxyurea and plavix Monitor Platelets Follow with as outpatient Tobacco abuse Nicotine patch counselled to quit smoking H/O breast Cancer: S/P surgery Vitamin D deficiency: Continue Vit D supplements Needs recheck of Vit D levels as outpatient Chronic Malnutrition: [employer]room[employer] Sc[employer] consulted for nutritional supplements DVT Px: Heparin SQ Code Status: Full code Vital Signs: Date Time Temp Pulse Resp B/P (MAP) Pulse Ox O2 Delivery O2 Flow Rate FiO2 02/09/17 15:30 Room Air 02/09/17 15:25 37.4 84 16 99/56 (70) 97 Room Air 02/09/17 07:50 Room Air 02/09/17 07:45 36.8 68 18 99/62 (74) 92 Room Air 02/09/17 07:43 92 Room Air 02/08/17 23:23 Room Air 02/08/17 22:57 36.5 90 14 102/65 (77) 94 Room Air Lab Results: Results Past 24 Hours Test 02/09/17 05:15 02/09/17 10:32 02/09/17 13:42 Range/Units White Blood Count 16.77 4.8-10.8 K/uL Red Blood Count 2.83 4.2-5.4 M/uL Hemoglobin 7.0 12.0-16.0 g/dL Hematocrit 23.2 37-47 % Mean Corpuscular Volume 82.0 80-100 fL Mean Corpuscular Hemoglobin 24.7 25-34 pg Mean Corpuscular Hemoglobin Concent 30.2 32-36 g/dl Platelet Count 375 130-400 K/uL Neutrophils (%) (Auto) 69.0 % Lymphocytes (%) (Auto) 13.1 % Monocytes (%) (Auto) 8.3 % Eosinophils (%) (Auto) 7.1 % Basophils (%) (Auto) 1.7 % Neutrophils # (Auto) 11.56 1.4-6.5 K/uL Lymphocytes # (Auto) 2.20 1.2-3.4 K/uL Monocytes # (Auto) 1.39 0.11-0.59 K/uL Eosinophils # (Auto) 1.19 0-0.5 K/uL Basophils # (Auto) 0.29 0-0.2 K/uL RDW Standard Deviation 86.2 36.4-46.3 fL RDW Coefficient of Variation 29.3 11.5-14.5 % Immature Granulocyte % (Auto) 0.8 % Immature Granulocyte # (Auto) 0.14 0.00-0.02 K/uL Large Platelets 1+ Poikilocytosis PRESENT Anisocytosis PRESENT Sodium Level 148 136-145 mmol/L Potassium Level 3.8 3.5-5.1 mmol/L Chloride Level 117 98-107 mmol/L Carbon Dioxide Level 22 21-32 mmol/L Anion Gap 9.0 3-11 mmol/L Blood Urea Nitrogen 10 7-18 mg/dl Creatinine 0.71 0.60-1.20 mg/dl Est Creatinine Clear Calc Drug Dose 54.4 ml/min Estimated GFR () 97.3 Estimated GFR (Non- 83.9 BUN/Creatinine Ratio 14.7 10-20 Random Glucose 86 70-99 mg/dl Calcium Level 7.6 8.5-10.1 mg/dl Vancomycin Level Trough 12.5 SEE COMMENT mcg/ml Microbiology Results 02/09/17 C.difficile Toxin B Gene (PCR) - Final, Complete No C. difficile toxin B gene detected 02/09/17 WBC Smear, Received Pending
[2017-02-09] MEDS ORDERED: LORAZEPAM 0.5 MG TAB PO ONE (17:45)
[2017-02-09] MEDS: ACETAMINOPHEN/CODEINE 300/30MG TAB PO PRN (19:31)
--- NOTE | 2017-02-09 20:55 | DIAGNOSTIC IMAGING REPORT ---
Ultrasound left hip LEFT EXTREMITY NONVASCULAR LIMITED CLINICAL HISTORY: Left hip wound draining. R/O abscess drainage TECHNIQUE: Ultrasound COMPARISON STUDY: 01/23/2017 FINDINGS: There is again made of 2 separate complex collections lateral to the left hip. Superficial complex collection currently measures 2.2 x 1.5 x 0.7 cm. This is unchanged in the prior study. A complex deep or fluid collection currently measures 7.7 x 3.5 cm. Given differences in scan technique this is most likely unchanged. It appears to be complex and/or semisolid. Possibility of a phlegmon is considered. IMPRESSION: No change from the prior exam. Superficial and deep complex collections and/or phlegmon type densities are noted. Unchanging complex abscesses or collections must be considered. Electronically signed by: Bandar Negro M.D. 02/09/2017 8:53 PM Dictated Date/Time: 02/09/2017 8:47 PM
[2017-02-09] MEDS: PREGABALIN 75 MG CAP PO SCH (21:14)
[2017-02-09] MEDS: TEMAZEPAM 15 MG CAP PO SCH (21:15)
[2017-02-09] MEDS: AMITRIPTYLINE HCL 25 MG TAB PO SCH (21:16)
[2017-02-09] MEDS ORDERED: VANCOMYCIN INJ 750 MG in SODIUM CHLORIDE 0.9% 250ML 250 ML IV SCH (22:00)
[2017-02-09 23:01] VITALS: BP 101/56; PULSE 92; TEMP 36.8; O2SAT 93
[2017-02-10] VITALS (9 sets, daily range): BP systolic 92–111; BP diastolic 58–67; PULSE 86–98; TEMP 36.7–37.4; O2SAT 90–97
[2017-02-10] MEDS: CLOPIDOGREL BISULFATE 75 MG TAB PO SCH (08:14)
[2017-02-10] MEDS: FLUTICASONE/SALMETEROL 250/50 (ADVAIR) 14 PUFF/1 INHALER INH SCH ×2 (08:15→21:36)
[2017-02-10] MEDS: NICOTINE 14 MG/24 HR TDSY TD SCH (08:15)
[2017-02-10] MEDS: PANTOprazole SOD 40 MG TAB PO SCH ×2 (08:15→21:49)
[2017-02-10] MEDS: HEPARIN SOD 5000 UNIT/0.5 ML CARP SQ SCH ×2 (08:16→21:00)
[2017-02-10] MEDS: ANAGRELIDE 1 MG PO SCH ×2 (08:23→21:44)
--- NOTE | 2017-02-10 13:41 | Progress Note ---
Internal Med Progress Note Date of Service: Feb 10, 2017. Provider Documentation: SUBJECTIVE: Seen and examined at bedside. Reports having semiformed BM today. Denies left hip pain. Planned for PICC line placement today. Labs pending. Denies chest pain, SOB. Offers no other complaints. OBJECTIVE: Vital Signs-as noted below Physical Exam: General Appearance:Thin, Fragile No apparent distress Head: normocephalic, Atraumatic Eyes: normal inspection, EOMI, PERRL Neck: supple, Trachea midline Respiratory/Chest: Decreased breath sounds, CTA Cardiovascular: S1, S2, No murmur Abdomen/GI:Soft, Non tender, Bowel sounds present Extremities/Musculoskelatal:normal inspection, no edema, Left Hip in bandage Neurologic/Psych:AAOX3, grossly no focal neurological deficits Skin: normal color, warm Lab data as noted below. ASSESSMENT & PLAN: Left Hip non healing wound Infection S/p Hip surgery done by Dr. Avendaño on 10/18/16 Wound culture: MRSA Blood culture:Negative to date S/P IV Vancomycin changed to Daptomycin on 02/09/17 Appreciate ID, Ortho input Continue wound care Continue Daptomycin Poor wound healing secondary to chronic malnutrition Ultrasound: No significant change Labs pending Nausea/Diarrhea: Stool: Negative for C.diff Anemia Hb baseline: around 7-8 S/P 2 units PRBC, 2 weeks ago. Last Hb:7.0 Scheduled for EGD as an outpatient Monitor Hb Labs pending Essential Thrombocythemia Continue anagrelide, hydroxyurea and plavix Monitor Platelets Follow with as outpatient Tobacco abuse Nicotine patch counselled to quit smoking H/O breast Cancer: S/P surgery Vitamin D deficiency: Continue Vit D supplements Needs recheck of Vit D levels as outpatient Chronic Malnutrition: Community Service Representative consulted for nutritional supplements DVT Px: Heparin SQ Code Status: Full code PROCEDURES: LLE USD: No change from the prior exam. Superficial and deep complex collections and/or phlegmon type densities are noted. Unchanging complex abscesses or collections must be considered. Vital Signs: Date Time Temp Pulse Resp B/P (MAP) Pulse Ox O2 Delivery O2 Flow Rate FiO2 02/10/17 08:00 Room Air 02/10/17 07:45 37.2 90 16 92/58 (69) 90 Room Air 02/09/17 23:18 Room Air 02/09/17 23:01 36.8 92 18 101/56 (71) 93 Room Air 02/09/17 15:30 Room Air 02/09/17 15:25 37.4 84 16 99/56 (70) 97 Room Air Lab Results: Results Past 24 Hours Test 02/10/17 04:44 Range/Units Microbiology Results 02/09/17 C.difficile Toxin B Gene (PCR) - Final, Complete No C. difficile toxin B gene detected 02/09/17 WBC Smear - Final, Complete
--- NOTE | 2017-02-10 15:14 | Progress Note ---
Subjective Date of Service: Feb 10, 2017. Subjective Pt evaluation today including: conversation w/ patient, physical exam, chart review, lab review pt seen in followup, doing well. still with some diarrhea, c diff negative. changed to dapto and tolerating well. blood cultures negative, IV team present for picc placement. wound culture with MRSA, repeat ultrasound done, superficial collection noted at 2.2cmx1.5cmx0.7cm. Deep collection measuring 7.7cmx3.5cm, essentially unchanged. no plans for surgery at this time. still with pain and drainage. no fevers. eating well. no abd pain. all remaining ros reviewed and are negative. Problem List Medical Problems: (1) Anemia Status: Chronic (2) Chronic anemia Status: Acute (3) History of hip fracture Status: Acute (4) History of pneumonia Status: Acute (5) Intractable pain Status: Acute (6) Myelodysplasia (myelodysplastic syndrome) Status: Acute (7) Myeloproliferative disease Status: Acute (8) Peptic ulcer disease Status: Acute (9) Pneumonia Status: Acute (10) Seroma of musculoskeletal structure after musculoskeletal system procedure Status: Acute Social History Problems: (1) History of repair of left hip joint Status: Acute Objective Vital Signs Date Time Temp Pulse Resp B/P (MAP) Pulse Ox O2 Delivery O2 Flow Rate FiO2 02/10/17 08:00 Room Air 02/10/17 07:45 37.2 90 16 92/58 (69) 90 Room Air 02/09/17 23:18 Room Air 02/09/17 23:01 36.8 92 18 101/56 (71) 93 Room Air 02/09/17 15:30 Room Air 02/09/17 15:25 37.4 84 16 99/56 (70) 97 Room Air Physical Exam General Appearance: WD/WN, no apparent distress Eyes: normal inspection Neck: supple Respiratory/Chest: lungs clear, normal breath sounds, no respiratory distress Cardiovascular: regular rate, rhythm, no edema Abdomen: non tender, soft Extremities: non-tender, normal inspection, no pedal edema Neurologic/Psychiatric: alert, oriented x 3 Skin: normal color Comments: left hip wound with purulent drainage, no surrounding erythema, warmth, + tenderness to palpation Laboratory Results Item Value Date Time Gram Stain - Final Complete 02/06/17 1500 Incision Site Hip , Left C.difficile Toxin B Gene (PCR) - Final Complete 02/09/17 1444 Stool No C. difficile toxin B gene detected Blood Culture - Preliminary Resulted 02/07/17 1414 Blood NO GROWTH TO DATE. Blood Culture - Preliminary Resulted 02/07/17 1410 Blood NO GROWTH TO DATE. Last 24 Hours Test 02/10/17 04:44 Assessment and Plan (1) Abscess Assessment & Plan: will continue dapto, will likely require prolonged course. Deep collection is significant size and may not resolve with abx alone. pt understands this and states she would like to proceed with abx with the understanding that additional OR may be required. will give 4 weeks abx and will need follow up post d/c, either office or wound center. will need weekly cbc, cmp, esr, cpk while on dapto, tentative stop date 03/10. will also need repeat imaging prior to stopping abx to assess resolution. would suggest ortho follow up as well. (2) Leukocytosis
[2017-02-10] MEDS: ACETAMINOPHEN/CODEINE 300/30MG TAB PO PRN (16:13)
[2017-02-10] MEDS: SODIUM CHLORIDE 0.9% IV SCH (16:13)
[2017-02-10] MEDS: ONDANSETRON 8 MG TAB PO PRN (16:13)
[2017-02-10] MEDS: DAPTOMYCIN IV SCH (16:13)
[2017-02-10] MEDS: ARGININE EXTRA NUTRITION DRINK 1 BOX PO SCH (17:00)
[2017-02-10] MEDS: TRAMADOL HCL 50 MG TAB PO PRN (17:08)
[2017-02-10 20:04] LABS: ANISOCYTOSIS PRESENT; LARGE PLATELETS 1+; MEAN CELL VOLUME 80.5 fL (80-100); MEAN CORPUSCULAR HEMOGLOBIN 25.7 pg (25-34); MEAN CORPUSCULAR HGB CONC 31.9 g/dl (32-36); OVALOCYTES 1+; PLATELET COUNT 661 K/uL (130-400); POIKILOCYTOSIS PRESENT; RED BLOOD COUNT 2.61 M/uL (4.2-5.4); TEAR DROP CELLS 1+; WHITE BLOOD COUNT 19.06 K/uL (4.8-10.8)
[2017-02-10 20:13] LABS: BASO ABS # 0.38 K/uL (0-0.2); COMPLETE YES; LYMPH ABS # 2.67 K/uL (1.2-3.4)
[2017-02-10] MEDS: PREGABALIN 75 MG CAP PO SCH (21:41)
[2017-02-10] MEDS: TEMAZEPAM 15 MG CAP PO SCH (21:41)
[2017-02-10] MEDS: AMITRIPTYLINE HCL 25 MG TAB PO SCH (21:49)
[2017-02-11] VITALS (9 sets, daily range): BP systolic 90–131; BP diastolic 54–80; PULSE 85–104; TEMP 36.8–37.5; O2SAT 92–95
[2017-02-11 08:05] LABS: HEMATOCRIT 27.1 % (37-47); MEAN CELL VOLUME 82.6 fL (80-100); MEAN CORPUSCULAR HEMOGLOBIN 25.9 pg (25-34); MEAN CORPUSCULAR HGB CONC 31.4 g/dl (32-36); MEAN PLATELET VOLUME 11.9 fL (7.4-10.4); PLATELET COUNT 765 K/uL (130-400); RED BLOOD COUNT 3.28 M/uL (4.2-5.4); WHITE BLOOD COUNT 19.13 K/uL (4.8-10.8)
[2017-02-11] MEDS: FLUTICASONE/SALMETEROL 250/50 (ADVAIR) 14 PUFF/1 INHALER INH SCH ×2 (08:33→21:45)
[2017-02-11] MEDS: PANTOprazole SOD 40 MG TAB PO SCH ×2 (08:35→21:47)
[2017-02-11] MEDS: ANAGRELIDE 1 MG PO SCH ×2 (08:38→21:47)
[2017-02-11] MEDS: CLOPIDOGREL BISULFATE 75 MG TAB PO SCH (08:39)
[2017-02-11] MEDS: ARGININE EXTRA NUTRITION DRINK 1 BOX PO SCH ×2 (08:39→17:00)
[2017-02-11] MEDS: NICOTINE 14 MG/24 HR TDSY TD SCH (08:41)
[2017-02-11] MEDS: HYDROXYUREA 500 MG CAP PO SCH (08:45)
[2017-02-11] MEDS: HEPARIN SOD 5000 UNIT/0.5 ML CARP SQ SCH ×2 (08:47→21:00)
[2017-02-11] MEDS ORDERED: VANCOMYCIN TROUGH ONE (09:30)
--- NOTE | 2017-02-11 14:19 | Progress Note ---
Internal Med Progress Note Date of Service: Feb 11, 2017. Provider Documentation: SUBJECTIVE: Seen and examined at bedside. States feeling very tired today. Reports having 2 loose BMs. Denies left hip pain, discharge. Denies chest pain, SOB. Offers no other complaints. Received 2 units PRBCs overnight. OBJECTIVE: Vital Signs-as noted below Physical Exam: General Appearance:Thin, Fragile No apparent distress Head: normocephalic, Atraumatic Eyes: normal inspection, EOMI, PERRL Neck: supple, Trachea midline Respiratory/Chest: Decreased breath sounds, CTA Cardiovascular: S1, S2, No murmur Abdomen/GI:Soft, Non tender, Bowel sounds present Extremities/Musculoskelatal:normal inspection, no edema, Left Hip in bandage Neurologic/Psych:AAOX3, grossly no focal neurological deficits Skin: normal color, warm Lab data as noted below. ASSESSMENT & PLAN: Left Hip non healing wound Infection S/p Hip surgery done by Dr. Avendaño on 10/18/16 Wound culture: MRSA Blood culture:Negative to date S/P IV Vancomycin changed to Daptomycin on 02/09/17 >>>>Stop date 03/10 Appreciate ID, Ortho input Continue wound care Continue Daptomycin Poor wound healing secondary to chronic malnutrition Ultrasound: No significant change Nausea/Diarrhea: Stool: Negative for C.diff Anemia Hb baseline: around 7-8 S/P 2 units PRBC, 2 weeks ago. S/P 2 units PRBC on 02/10/17 Hb:8.5 today Scheduled for EGD as an outpatient Monitor Hb Essential Thrombocythemia Continue anagrelide, hydroxyurea and plavix Monitor Platelets Follow with as outpatient Tobacco abuse Nicotine patch counselled to quit smoking H/O breast Cancer: S/P surgery Vitamin D deficiency: Continue Vit D supplements Needs recheck of Vit D levels as outpatient Chronic Malnutrition: [employer] Head consulted for nutritional supplements DVT Px: Heparin SQ Code Status: Full code PROCEDURES: LLE USD: No change from the prior exam. Superficial and deep complex collections and/or phlegmon type densities are noted. Unchanging complex abscesses or collections must be considered. Vital Signs: Date Time Temp Pulse Resp B/P (MAP) Pulse Ox O2 Delivery O2 Flow Rate FiO2 02/11/17 07:30 Room Air 02/11/17 07:27 37.1 91 17 98/54 (69) 93 Room Air 02/11/17 02:45 36.8 91 16 104/54 95 02/11/17 01:45 36.9 85 18 101/64 93 02/11/17 01:15 37.0 88 20 90/57 94 02/11/17 01:00 36.8 90 20 90/57 93 02/11/17 00:45 37.0 86 16 90/57 95 02/11/17 00:15 37.0 88 16 96/61 94 02/10/17 23:40 Room Air 02/10/17 23:22 37.0 87 20 99/61 (74) 97 Room Air 02/10/17 23:15 37.0 86 20 99/61 97 02/10/17 22:47 36.7 90 18 100/64 (76) 95 Room Air 02/10/17 22:45 36.7 90 18 100/64 95 02/10/17 22:35 37.4 88 18 102/62 96 0.0 02/10/17 22:18 37.1 86 18 101/64 96 0.0 02/10/17 22:08 37.4 86 18 111/58 96 02/10/17 16:15 37.3 98 20 109/67 (81) 93 Room Air 02/10/17 16:00 Room Air Lab Results: Results Past 24 Hours Test 02/10/17 19:15 02/11/17 07:55 Range/Units White Blood Count 19.06 19.13 4.8-10.8 K/uL Red Blood Count 2.61 3.28 4.2-5.4 M/uL Hemoglobin 6.7 8.5 12.0-16.0 g/dL Hematocrit 21.0 27.1 37-47 % Mean Corpuscular Volume 80.5 82.6 80-100 fL Mean Corpuscular Hemoglobin 25.7 25.9 25-34 pg Mean Corpuscular Hemoglobin Concent 31.9 31.4 32-36 g/dl Platelet Count 661 765 130-400 K/uL RDW Standard Deviation 95.6 72.4 36.4-46.3 fL RDW Coefficient of Variation 30.2 26.1 11.5-14.5 % Neutrophils % (Manual) 74.0 % Lymphocytes % (Manual) 14.0 % Monocytes % (Manual) 6.0 % Eosinophils % (Manual) 4.0 % Basophils % (Manual) 2.0 % Neutrophils # (Manual) 14.10 1.4-6.5 K/uL Total Absolute Neutrophils 14.10 1.4-6.5 K/uL Lymphocytes # (Manual) 2.67 1.2-3.4 K/uL Total Absolute Lymphocytes 2.67 1.2-3.4 K/uL Monocytes # (Manual) 1.14 0.11-0.59 K/uL Eosinophils # (Manual) 0.76 0-0.5 K/uL Basophils # (Manual) 0.38 0-0.2 K/uL Large Platelets 1+ Poikilocytosis PRESENT Anisocytosis PRESENT Tear Drop Cells 1+ Ovalocytes 1+ Total Creatine Kinase 17 26-192 U/L Mean Platelet Volume 11.9 7.4-10.4 fL Nucleated RBC Absolute Count (auto) 0.09 0-0 K/uL Nucleated Red Blood Cells % 0.5 %
[2017-02-11] MEDS: SODIUM CHLORIDE 0.9% IV SCH (15:57)
[2017-02-11] MEDS: DAPTOMYCIN IV SCH (15:57)
[2017-02-11] MEDS: TRAMADOL HCL 50 MG TAB PO PRN (15:57)
[2017-02-11] MEDS: PREGABALIN 75 MG CAP PO SCH (21:47)
[2017-02-11] MEDS: AMITRIPTYLINE HCL 25 MG TAB PO SCH (21:47)
[2017-02-11] MEDS: TEMAZEPAM 15 MG CAP PO SCH (21:47)
[2017-02-11] MEDS: ONDANSETRON 8 MG TAB PO PRN (22:35)
[2017-02-12 06:03] LABS: HEMATOCRIT 24.8 % (37-47); MEAN CORPUSCULAR HEMOGLOBIN 26.5 pg (25-34); MEAN CORPUSCULAR HGB CONC 32.7 g/dl (32-36); MEAN PLATELET VOLUME 11.3 fL (7.4-10.4); PLATELET COUNT 849 K/uL (130-400); RED BLOOD COUNT 3.06 M/uL (4.2-5.4); WHITE BLOOD COUNT 17.74 K/uL (4.8-10.8)
[2017-02-12 06:31] LABS: BUN/CREATININE RATIO 15.6 (10-20); CALCIUM 7.5 mg/dl (8.5-10.1); CREATININE 0.68 mg/dl (0.60-1.20); POTASSIUM 3.8 mmol/L (3.5-5.1)
[2017-02-12 07:02] VITALS: BP 101/56; PULSE 83; TEMP 37; O2SAT 93
[2017-02-12] MEDS: FLUTICASONE/SALMETEROL 250/50 (ADVAIR) 14 PUFF/1 INHALER INH SCH ×2 (08:56→20:59)
[2017-02-12] MEDS: NICOTINE 14 MG/24 HR TDSY TD SCH (08:57)
[2017-02-12] MEDS: ANAGRELIDE 1 MG PO SCH ×2 (08:59→21:02)
[2017-02-12] MEDS: CLOPIDOGREL BISULFATE 75 MG TAB PO SCH (09:00)
[2017-02-12] MEDS: HEPARIN SOD 5000 UNIT/0.5 ML CARP SQ SCH ×2 (09:00→21:00)
[2017-02-12] MEDS: ARGININE EXTRA NUTRITION DRINK 1 BOX PO SCH ×2 (09:00→16:49)
[2017-02-12] MEDS: PANTOprazole SOD 40 MG TAB PO SCH ×2 (09:00→21:01)
--- NOTE | 2017-02-12 13:27 | Progress Note ---
Internal Med Progress Note Date of Service: Feb 12, 2017. Provider Documentation: SUBJECTIVE: Seen and examined at bedside. Doing well today. Denies left hip pain has mild discharge. Denies chest pain, SOB. Offers no other complaints. Has been refusing SQ heparin. OBJECTIVE: Vital Signs-as noted below Physical Exam: General Appearance:Thin, Fragile No apparent distress Head: normocephalic, Atraumatic Eyes: normal inspection, EOMI, PERRL Neck: supple, Trachea midline Respiratory/Chest: Decreased breath sounds, CTA Cardiovascular: S1, S2, No murmur Abdomen/GI:Soft, Non tender, Bowel sounds present Extremities/Musculoskelatal:normal inspection, no edema, Left Hip in bandage Neurologic/Psych:AAOX3, grossly no focal neurological deficits Skin: normal color, warm Lab data as noted below. ASSESSMENT & PLAN: Left Hip non healing wound Infection S/p Hip surgery done by Dr. Avendaño on 10/18/16 Wound culture: MRSA Blood culture:Negative to date S/P IV Vancomycin changed to Daptomycin on 02/09/17 >>>>Stop date 03/10 Appreciate ID, Ortho input Continue wound care Continue Daptomycin Poor wound healing secondary to chronic malnutrition Ultrasound: No significant change Nausea/Diarrhea: Stool: Negative for C.diff Anemia Hb baseline: around 7-8 S/P 2 units PRBC, 2 weeks ago. 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 Superficial and deep complex collections and/or phlegmon type densities are noted. Unchanging complex abscesses or collections must be considered. Vital Signs: Date Time Temp Pulse Resp B/P (MAP) Pulse Ox O2 Delivery O2 Flow Rate FiO2 02/12/17 07:40 Room Air 02/12/17 07:02 37.0 83 17 101/56 (71) 93 Room Air 02/11/17 23:25 Room Air 02/11/17 23:24 37.1 104 16 108/64 (79) 92 Room Air 02/11/17 15:40 Room Air 02/11/17 15:26 37.5 93 16 131/80 (97) 94 Lab Results: Results Past 24 Hours Test 02/12/17 05:23 Range/Units White Blood Count 17.74 4.8-10.8 K/uL Red Blood Count 3.06 4.2-5.4 M/uL Hemoglobin 8.1 12.0-16.0 g/dL Hematocrit 24.8 37-47 % Mean Corpuscular Volume 81.0 80-100 fL Mean Corpuscular Hemoglobin 26.5 25-34 pg Mean Corpuscular Hemoglobin Concent 32.7 32-36 g/dl RDW Standard Deviation 74.0 36.4-46.3 fL RDW Coefficient of Variation 26.5 11.5-14.5 % Platelet Count 849 130-400 K/uL Mean Platelet Volume 11.3 7.4-10.4 fL Nucleated RBC Absolute Count (auto) 0.07 0-0 K/uL Nucleated Red Blood Cells % 0.4 % Sodium Level 147 136-145 mmol/L Potassium Level 3.8 3.5-5.1 mmol/L Chloride Level 114 98-107 mmol/L Carbon Dioxide Level 25 21-32 mmol/L Anion Gap 8.0 3-11 mmol/L Blood Urea Nitrogen 11 7-18 mg/dl Creatinine 0.68 0.60-1.20 mg/dl Est Creatinine Clear Calc Drug Dose 56.8 ml/min Estimated GFR () 99.9 Estimated GFR (Non- 86.2 BUN/Creatinine Ratio 15.6 10-20 Random Glucose 83 70-99 mg/dl Calcium Level 7.5 8.5-10.1 mg/dl
[2017-02-12 14:56] VITALS: BP 148/65; PULSE 89; TEMP 37.7; O2SAT 95
[2017-02-12] MEDS: SODIUM CHLORIDE 0.9% IV SCH (15:26)
[2017-02-12] MEDS: DAPTOMYCIN IV SCH (15:26)
[2017-02-12] MEDS: ONDANSETRON 8 MG TAB PO PRN (16:47)
[2017-02-12] MEDS: TRAMADOL HCL 50 MG TAB PO PRN (19:03)
[2017-02-12] MEDS: PREGABALIN 75 MG CAP PO SCH (20:59)
[2017-02-12] MEDS: ACETAMINOPHEN/CODEINE 300/30MG TAB PO PRN (21:00)
[2017-02-12] MEDS: TEMAZEPAM 15 MG CAP PO SCH (21:00)
[2017-02-12] MEDS: AMITRIPTYLINE HCL 25 MG TAB PO SCH (21:01)
[2017-02-12 23:09] VITALS: BP 82/42; PULSE 109; TEMP 36.7; O2SAT 90
[2017-02-12 23:24] VITALS: BP 96/54; PULSE 102
[2017-02-13 03:43] VITALS: BP 101/53; PULSE 89; TEMP 37; O2SAT 91
[2017-02-13 06:18] LABS: BASO % 1.3 %; BASO ABS # 0.21 K/uL (0-0.2); EOS % 5.7 %; HEMATOCRIT 24.7 % (37-47); LYMPH % 15.8 %; LYMPH ABS # 2.49 K/uL (1.2-3.4); MEAN CELL VOLUME 81.8 fL (80-100); MEAN CORPUSCULAR HEMOGLOBIN 25.5 pg (25-34); MEAN CORPUSCULAR HGB CONC 31.2 g/dl (32-36); MEAN PLATELET VOLUME 10.4 fL (7.4-10.4); MONO % 7.1 %; NEUT % 69.1 %; PLATELET COUNT 877 K/uL (130-400); RED BLOOD COUNT 3.02 M/uL (4.2-5.4); WHITE BLOOD COUNT 15.71 K/uL (4.8-10.8)
[2017-02-13 06:59] LABS: ANISOCYTOSIS PRESENT; COMPLETE YES; POIKILOCYTOSIS PRESENT; TARGET CELLS 1+
[2017-02-13 07:39] VITALS: BP 119/51; PULSE 90; TEMP 37.1; O2SAT 92
[2017-02-13] MEDS: FLUTICASONE/SALMETEROL 250/50 (ADVAIR) 14 PUFF/1 INHALER INH SCH ×2 (08:42→20:55)
[2017-02-13] MEDS: ANAGRELIDE 1 MG PO SCH ×2 (08:44→20:55)
[2017-02-13] MEDS: PANTOprazole SOD 40 MG TAB PO SCH ×2 (08:45→21:02)
[2017-02-13] MEDS: HEPARIN SOD 5000 UNIT/0.5 ML CARP SQ SCH ×2 (08:48→20:57)
[2017-02-13] MEDS: CLOPIDOGREL BISULFATE 75 MG TAB PO SCH (08:48)
[2017-02-13] MEDS: ARGININE EXTRA NUTRITION DRINK 1 BOX PO SCH (08:50)
[2017-02-13] MEDS: HYDROXYUREA 500 MG CAP PO SCH (09:00)
[2017-02-13] MEDS ORDERED: ERGOCALCIFEROL 50,000 INTER.UNIT CAP PO SCH (09:00)
[2017-02-13] MEDS: NICOTINE 14 MG/24 HR TDSY TD SCH (09:02)
[2017-02-13] MEDS ORDERED: ARGININE EXTRA NUTRITION DRINK 1 BOX PO SCH (10:15)
--- NOTE | 2017-02-13 10:25 | Progress Note ---
Subjective Date of Service: Feb 13, 2017. Subjective Pt evaluation today including: conversation w/ patient, physical exam, chart review, lab review pt without complaints. feeling much better, diarrhea resolved. tolerating abx. s/p picc. blood cultures negative, no plans for drainage. No f/c. For d/c soon, states she feels ready to go home. low grade fever yesterday afternoon, 37.7, isolated. patient asymptomatic. all remaining ros reviewed and are negative. Problem List Medical Problems: (1) Anemia Status: Chronic (2) Chronic anemia Status: Acute (3) History of hip fracture Status: Acute (4) History of pneumonia Status: Acute (5) Intractable pain Status: Acute (6) Myelodysplasia (myelodysplastic syndrome) Status: Acute (7) Myeloproliferative disease Status: Acute (8) Peptic ulcer disease Status: Acute (9) Pneumonia Status: Acute (10) Seroma of musculoskeletal structure after musculoskeletal system procedure Status: Acute Social History Problems: (1) History of repair of left hip joint Status: Acute Objective Vital Signs Date Time Temp Pulse Resp B/P (MAP) Pulse Ox O2 Delivery O2 Flow Rate FiO2 02/13/17 07:39 37.1 90 18 119/51 (73) 92 Room Air 02/13/17 03:43 37.0 89 14 101/53 (69) 91 Room Air 02/13/17 00:35 Room Air 02/12/17 23:24 102 96/54 (68) 02/12/17 23:09 36.7 109 16 82/42 (55) 90 Room Air 02/12/17 15:30 Room Air 02/12/17 14:56 37.7 89 18 148/65 (92) 95 Room Air Physical Exam General Appearance: WD/WN, no apparent distress Eyes: normal inspection Neck: supple Respiratory/Chest: normal breath sounds, no respiratory distress Cardiovascular: regular rate, rhythm, no edema Abdomen: non tender, soft Extremities: non-tender, normal inspection, no pedal edema Neurologic/Psychiatric: alert, oriented x 3 Skin: normal color Comments: left hip dressing with purulent drainage noted, no surrounding erythema, edema, warmth, min tenderness to palpation. Laboratory Results Item Value Date Time Gram Stain - Final Complete 02/06/17 1500 Incision Site Hip , Left C.difficile Toxin B Gene (PCR) - Final Complete 02/09/17 1444 Stool No C. difficile toxin B gene detected Blood Culture - Preliminary Resulted 02/07/17 1414 Blood NO GROWTH TO DATE. Blood Culture - Preliminary Resulted 02/07/17 1410 Blood NO GROWTH TO DATE. Blood Culture - Final Complete 02/07/17 1414 Blood NO GROWTH Blood Culture - Final Complete 02/07/17 1410 Blood NO GROWTH Last 24 Hours Test 02/13/17 05:49 White Blood Count 15.71 K/uL Red Blood Count 3.02 M/uL Hemoglobin 7.7 g/dL Hematocrit 24.7 % Mean Corpuscular Volume 81.8 fL Mean Corpuscular Hemoglobin 25.5 pg Mean Corpuscular Hemoglobin Concent 31.2 g/dl Platelet Count 877 K/uL Mean Platelet Volume 10.4 fL Neutrophils (%) (Auto) 69.1 % Lymphocytes (%) (Auto) 15.8 % Monocytes (%) (Auto) 7.1 % Eosinophils (%) (Auto) 5.7 % Basophils (%) (Auto) 1.3 % Neutrophils # (Auto) 10.84 K/uL Lymphocytes # (Auto) 2.49 K/uL Monocytes # (Auto) 1.11 K/uL Eosinophils # (Auto) 0.90 K/uL Basophils # (Auto) 0.21 K/uL RDW Standard Deviation 75.6 fL RDW Coefficient of Variation 27.0 % Immature Granulocyte % (Auto) 1.0 % Immature Granulocyte # (Auto) 0.16 K/uL Nucleated RBC Absolute Count (auto) 0.06 K/uL Nucleated Red Blood Cells % 0.4 % Poikilocytosis PRESENT Basophilic Stippling 1+ Anisocytosis PRESENT Target Cells 1+ Assessment and Plan (1) Abscess Assessment & Plan: no plans for surgery at this time due to underlying co morbidities, pt in agreement to hold off drainage and treat with abx. collection deep is large and I am concerned that it may not be cured with abx alone, however, will continue with dapto and plan to repeat ultrasound as outpatient prior to d/c abx to re assess, if not smaller or resolved after multiple weeks of abx she may require surgical procedure. will continue to follow. Can follow at wound center if plans to continue wound care post d/c. will continue dapto. tolerating well. will need weekly cbc,cmp, esr, cpk while on therapy. ok for d/c from ID standpoint when outpatient abx in place. (2) Leukocytosis
[2017-02-13] MEDS: ACETAMINOPHEN/CODEINE 300/30MG TAB PO PRN (12:18)
--- NOTE | 2017-02-13 14:53 | Progress Note ---
Internal Med Progress Note Date of Service: Feb 13, 2017. Provider Documentation: SUBJECTIVE: Seen and examined at bedside. Stating having headache which she believes is secondary to daptomycin which is resolving. Reports having diarrhea yesterday and 2 BM today. Denies left hip pain, has discharge. Denies chest pain, SOB. Offers no other complaints. Has been refusing SQ heparin. Patient prefers conservative management for left hip wound. OBJECTIVE: Vital Signs-as noted below Physical Exam: General Appearance:Thin, Fragile No apparent distress Head: normocephalic, Atraumatic Eyes: normal inspection, EOMI, PERRL Neck: supple, Trachea midline Respiratory/Chest: Decreased breath sounds, CTA Cardiovascular: S1, S2, No murmur Abdomen/GI:Soft, Non tender, Bowel sounds present Extremities/Musculoskelatal:normal inspection, no edema, Left Hip in bandage Neurologic/Psych:AAOX3, grossly no focal neurological deficits Skin: normal color, warm Lab data as noted below. ASSESSMENT & PLAN: Left Hip non healing wound Infection S/p Hip surgery done by Dr. Avendaño on 10/18/16 Wound culture: MRSA Blood culture:Negative to date S/P IV Vancomycin changed to Daptomycin on 02/09/17 >>>>Stop date 03/10 Appreciate ID, Ortho input Continue wound care Continue Daptomycin Poor wound healing secondary to chronic malnutrition Ultrasound: No significant change Patient prefers conservative management. May need surgery if no improvement. Nausea/Diarrhea: Stool: Negative for C.diff Anemia Hb baseline: around 7-8 S/P 2 units PRBC, 2 weeks ago. 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 May require surgical procedure if no resolution PROCEDURES: LLE USD: No change from the prior exam. Superficial and deep complex collections and/or phlegmon type densities are noted. Unchanging complex abscesses or collections must be considered. Vital Signs: Date Time Temp Pulse Resp B/P (MAP) Pulse Ox O2 Delivery O2 Flow Rate FiO2 02/13/17 08:30 Room Air 02/13/17 07:39 37.1 90 18 119/51 (73) 92 Room Air 02/13/17 03:43 37.0 89 14 101/53 (69) 91 Room Air 02/13/17 00:35 Room Air 02/12/17 23:24 102 96/54 (68) 02/12/17 23:09 36.7 109 16 82/42 (55) 90 Room Air 02/12/17 15:30 Room Air Lab Results: Results Past 24 Hours Test 02/13/17 05:49 Range/Units White Blood Count 15.71 4.8-10.8 K/uL Red Blood Count 3.02 4.2-5.4 M/uL Hemoglobin 7.7 12.0-16.0 g/dL Hematocrit 24.7 37-47 % Mean Corpuscular Volume 81.8 80-100 fL Mean Corpuscular Hemoglobin 25.5 25-34 pg Mean Corpuscular Hemoglobin Concent 31.2 32-36 g/dl Platelet Count 877 130-400 K/uL Mean Platelet Volume 10.4 7.4-10.4 fL Neutrophils (%) (Auto) 69.1 % Lymphocytes (%) (Auto) 15.8 % Monocytes (%) (Auto) 7.1 % Eosinophils (%) (Auto) 5.7 % Basophils (%) (Auto) 1.3 % Neutrophils # (Auto) 10.84 1.4-6.5 K/uL Lymphocytes # (Auto) 2.49 1.2-3.4 K/uL Monocytes # (Auto) 1.11 0.11-0.59 K/uL Eosinophils # (Auto) 0.90 0-0.5 K/uL Basophils # (Auto) 0.21 0-0.2 K/uL RDW Standard Deviation 75.6 36.4-46.3 fL RDW Coefficient of Variation 27.0 11.5-14.5 % Immature Granulocyte % (Auto) 1.0 % Immature Granulocyte # (Auto) 0.16 0.00-0.02 K/uL Nucleated RBC Absolute Count (auto) 0.06 0-0 K/uL Nucleated Red Blood Cells % 0.4 % Poikilocytosis PRESENT Basophilic Stippling 1+ Anisocytosis PRESENT Target Cells 1+ Microbiology Results 02/13/17 C.difficile Toxin B Gene (PCR) - Final, Complete No C. difficile toxin B gene detected
[2017-02-13 15:21] VITALS: BP 120/59; PULSE 81; TEMP 37.5; O2SAT 97
[2017-02-13] MEDS: DAPTOMYCIN IV SCH (17:09)
[2017-02-13] MEDS: SODIUM CHLORIDE 0.9% IV SCH (17:09)
[2017-02-13] MEDS: ONDANSETRON 8 MG TAB PO PRN (17:33)
[2017-02-13] MEDS: TRAMADOL HCL 50 MG TAB PO PRN (17:41)
[2017-02-13] MEDS: PREGABALIN 75 MG CAP PO SCH (20:55)
[2017-02-13] MEDS: TEMAZEPAM 15 MG CAP PO SCH (21:01)
[2017-02-13] MEDS: AMITRIPTYLINE HCL 25 MG TAB PO SCH (21:02)
[2017-02-13 23:10] VITALS: BP 96/58; PULSE 100; TEMP 37.1; O2SAT 91
[2017-02-14 05:48] LABS: HEMATOCRIT 24.5 % (37-47)
[2017-02-14] MEDS: PANTOprazole SOD 40 MG TAB PO SCH (08:16)
[2017-02-14] MEDS: FLUTICASONE/SALMETEROL 250/50 (ADVAIR) 14 PUFF/1 INHALER INH SCH (08:16)
[2017-02-14] MEDS: HEPARIN SOD 5000 UNIT/0.5 ML CARP SQ SCH (08:17)
[2017-02-14] MEDS: CLOPIDOGREL BISULFATE 75 MG TAB PO SCH (08:17)
[2017-02-14] MEDS: NICOTINE 14 MG/24 HR TDSY TD SCH (08:17)
[2017-02-14] MEDS: ANAGRELIDE 1 MG PO SCH (08:17)
[2017-02-14 08:22] VITALS: BP 123/73; PULSE 89; TEMP 36.8; O2SAT 95
--- NOTE | 2017-02-14 09:42 | Progress Note ---
Internal Med Progress Note Date of Service: Feb 14, 2017. Provider Documentation: SUBJECTIVE: Seen and examined at bedside. Stating feeling well. Denies left hip pain, has discharge from wound. Denies chest pain, SOB. Offers no other complaints. Patient prefers conservative management for left hip wound. OBJECTIVE: Vital Signs-as noted below Physical Exam: General Appearance:Thin, Fragile No apparent distress Head: normocephalic, Atraumatic Eyes: normal inspection, EOMI, PERRL Neck: supple, Trachea midline Respiratory/Chest: Decreased breath sounds, CTA Cardiovascular: S1, S2, No murmur Abdomen/GI:Soft, Non tender, Bowel sounds present Extremities/Musculoskelatal:normal inspection, no edema, Left Hip in bandage Neurologic/Psych:AAOX3, grossly no focal neurological deficits Skin: normal color, warm Lab data as noted below. ASSESSMENT & PLAN: Left Hip non healing wound Infection S/p Hip surgery done by Dr. Avendaño on 10/18/16 Wound culture: MRSA Blood culture:Negative to date S/P IV Vancomycin changed to Daptomycin on 02/09/17 >>>>Stop date 03/10 Appreciate ID, Ortho input Continue wound care Continue Daptomycin Poor wound healing secondary to chronic malnutrition Ultrasound: No significant change Patient prefers conservative management. May need surgery if no improvement. Nausea/Diarrhea: Stool: Negative for C.diff Anemia Hb baseline: around 7-8 S/P 2 units PRBC, 2 weeks ago. 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 Follow up with Dr.Manisha Chavez on 02/17/17 at 10:45 AM Follow up with (Infectious Disease) as advised Follow up with Oncology Dr.Nilesh Chavez on 02/20/17 at 11:15AM Get weekly CBC, CMP, ESR, CPK while on daptomycin upon discharge as advised Continue wound care and follow up at wound center upon discharge as advised Get repeat ultrasound of leg as outpatient prior to discontinuing antibiotics to re assess the wound. You may require surgical procedure if no resolution of wound. PROCEDURES: LLE USD: No change from the prior exam. Superficial and deep complex collections and/or phlegmon type densities are noted. Unchanging complex abscesses or collections must be considered. Vital Signs: Date Time Temp Pulse Resp B/P (MAP) Pulse Ox O2 Delivery O2 Flow Rate FiO2 02/14/17 08:22 36.8 89 18 123/73 (90) 95 Room Air 02/14/17 08:20 Room Air 02/13/17 23:15 Room Air 02/13/17 23:10 37.1 100 16 96/58 (71) 91 Room Air 02/13/17 19:45 Room Air 0.0 02/13/17 15:21 37.5 81 18 120/59 (79) 97 Room Air Lab Results: Results Past 24 Hours Test 02/14/17 05:15 Range/Units Hemoglobin 7.5 12.0-16.0 g/dL Hematocrit 24.5 37-47 % Microbiology Results 02/13/17 C.difficile Toxin B Gene (PCR) - Final, Complete No C. difficile toxin B gene detected
[2017-02-14] MEDS ORDERED: ERGO500011 PO (09:51)
[2017-02-14] MEDS ORDERED: ONDA8TAB6 PO (09:51)
--- NOTE | 2017-02-14 09:53 | Discharge Summary ---
Discharge Summary Date of Service Feb 14, 2017. Discharge Summary Admission Date: Feb 06, 2017 at 18:22 Discharge Date: Feb 14, 2017 Discharge Disposition: Home with services Principal Diagnosis: Left Hip non healing wound Infection Procedures: Pelvic X ray: No acute bony abnormality. Mild soft tissue edema unchanged from the prior exam. Femur X ray: 1. There is no radiographic evidence of left femoral fracture. 2. Soft tissue edema overlies the greater trochanter of the left femur. 3. A left hip arthroplasty is in near-anatomic alignment. LLE USD: No change from the prior exam. Superficial and deep complex collections and/or phlegmon type densities are noted. Unchanging complex abscesses or collections must be considered. Consultations: Orthopedics, ID Pending Studies/Follow-Up: Follow up with Dr.Manisha Chavez on 02/17/17 at 10:45 AM Follow up with (Infectious Disease) as advised Follow up with Oncology Dr.Nilesh Chavez on 02/20/17 at 11:15AM Get weekly CBC, CMP, ESR, CPK while on daptomycin upon discharge as advised Continue wound care and follow up at wound center upon discharge as advised Get repeat ultrasound of leg as outpatient prior to discontinuing antibiotics to re assess the wound. You may require surgical procedure if no resolution of wound. Medication Reconciliation New Medications: Ergocalciferol (Vitamin D 98690 Unit) 50,000 Unit Cap 15049 INTERUNIT PO Q7D@0900 for 30 Days, #4 CAP Start taking on 02/15/17 Continued Medications: Albuterol (Ventolin Hfa) 60 Puffs/5400 Mcg Aers 2 PUFFS INH Q6H PRN for Wheezing Amitriptyline Hcl (Elavil) 75 Mg Tab 75 MG PO HS, TAB Anagrelide Hcl (Anagrelide Hydrochloride) 1 Mg Cap 1 MG PO BID Clopidogrel (Plavix) 75 Mg Tab 75 MG PO QAM, TAB Fluticasone Prop/Salmeterol (Advair Diskus 250/50 60 Dose) 1 Ea Aerp 1 PUFF INH BID, INHALER Hydroxyurea (Hydrea Cap) 500 Mg Cap 500 MG PO Q2D, CAP Loratadine (Claritin) 10 Mg Cap 10 MG PO DAILY PRN for Allergy Symptoms Nicotine (Nicoderm Cq 14MG Patch) 14 Mg/24 Hr Dis 1 PATCH TD DAILY, PATCH Nutritional Supplements ([place] Instant Breakfa) 1 Liq Liq 1-2 DOSE PO DAILY PRN for Nutritional Supplement As Need Ondansetron Hcl (Zofran) 8 Mg Tab 8 MG PO TID PRN for Nausea for 10 Days, #30 TAB (This prescription has been renewed) Pantoprazole (Protonix) 40 Mg Tab 40 MG PO BID, TAB Pregabalin (Lyrica) 75 Mg Cap 75 MG PO HS, CAP Rizatriptan Benzoate (Rizatriptan Benzoate) 10 Mg Tab 10 MG PO UD PRN for Migraine TAKE MD DIRECTS Temazepam (Restoril) 30 Mg Cap 30 MG PO HS, CAP Admission Information HPI (per Admitting provider): 76 year old female with PMH of Anemia, Myeloproliferative disease, COPD, tobacco abuse, s/p left hip surgery presents to the Emergency Room with complaints of a worsening drainage at the incision site. Pt said that she had hip surgery done by Dr. Avendaño on 10/18/16. she said that the surgery went well with no complications. she said that about 2-3 weeks ago she started to have light yellowish drainage coming at the site of the left hip incision. She called [facility] last week and was advised to follow-up with her PCP. She called her PCP's office 3 days ago and was told to come to the ED. She said today the drainage got worst. She said that now the fluid is thick, yellowish/brown that continue to drained. Pt said that she developed mild tenderness around the area where there is a puncture wound. She said that she had wound culture done as an outpatient with no growth. She said that she always feels cold. Pt also had a recent blood transfusion 2 weeks ago because her hgb was 6.8. 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 Pt said that her hgb is at baseline now. she does have an EGD schedule for this Monday. denies any recent trauma or injury. denies any fever, chest pain, palpitation. Physical Exam (per Admitting): General Appearance: WD/WN, no apparent distress, + cachetic Head: normocephalic, atraumatic Eyes: normal inspection, PERRL, EOMI ENT: normal ENT inspection, hearing grossly normal Neck: supple, no JVD Respiratory/Chest: lungs clear, normal breath sounds, no respiratory distress, no accessory muscle use Cardiovascular: regular rate, rhythm, no edema, no JVD Abdomen/GI: normal bowel sounds, non tender, soft Back: no CVA tenderness, no muscle spasm, normal range of motion Extremities/Musculoskelatal: no calf tenderness, no pedal edema, + pertinent finding ( Drainage at the Surgical site of the left hip that appears to be healing well, dressing is soaked with yellowish fluid coming from a puncture wound. no erythema.) Neurologic/Psych: no motor/sensory deficits, alert, normal mood/affect, oriented x 3 Skin: warm/dry, no rash Hospital Course Left Hip non healing wound Infection S/p Hip surgery done by Dr. Avendaño on 10/18/16 Wound culture: MRSA Blood culture:Negative to date S/P IV Vancomycin changed to Daptomycin on 02/09/17 >>>>Stop date 03/10 Appreciate ID, Ortho input Continue wound care Continue Daptomycin Poor wound healing secondary to chronic malnutrition Ultrasound: No significant change Patient prefers conservative management. May need surgery if no improvement. Nausea/Diarrhea: Stool: Negative for C.diff Anemia Hb baseline: around 7-8 S/P 2 units PRBC, 2 weeks ago. 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 Follow up with Dr.Manisha Chavez on 02/17/17 at 10:45 AM Follow up with (Infectious Disease) as advised Follow up with Oncology Dr.Nilesh Chavez on 02/20/17 at 11:15AM Get weekly CBC, CMP, ESR, CPK while on daptomycin upon discharge as advised Continue wound care and follow up at wound center upon discharge as advised Get repeat ultrasound of leg as outpatient prior to discontinuing antibiotics to re assess the wound. You may require surgical procedure if no resolution of wound. PROCEDURES: LLE USD: No change from the prior exam. Superficial and deep complex collections and/or phlegmon type densities are noted. Unchanging complex abscesses or collections must be considered. Total time spent on discharge = 40 minutes This includes examination of the patient, discharge planning, medication reconciliation, and communication with other providers. Discharge Instructions Discharge Instructions Date of Service Feb 14, 2017. Admission Reason for Admission: Puncture Wound Of Left Hip Discharge Discharge Diagnosis / Problem: Left Hip non healing wound Infection Discharge Goals Goal(s): Decrease discomfort, Improve function Activity Recommendations Activity Limitations: resume your previous activity Exercise/Sports Limitations: as tolerated . Instructions / Follow-Up Instructions / Follow-Up Follow up with Dr.Manisha Chavez on 02/17/17 at 10:45 AM Follow up with (Infectious Disease) as advised Follow up with Oncology Dr.Nilesh Chavez on 02/20/17 at 11:15AM Get weekly CBC, CMP, ESR, CPK while on daptomycin upon discharge as advised Continue wound care and follow up at wound center upon discharge as advised Get repeat ultrasound of leg as outpatient prior to discontinuing antibiotics to re assess the wound. You may require surgical procedure if no resolution of wound. Current Hospital Diet Patient's current hospital diet: Regular Diet Discharge Diet Recommended Diet: Regular Diet Pending Studies Studies pending at discharge: no Medical Emergencies . Who to Call and When: Medical Emergencies: If at any time you feel your situation is an emergency, please call 911 immediately. . Non-Emergent Contact Non-Emergency issues call your: Primary Care Provider, Oncologist, Specialist ( Infectious disease ) Call Non-Emergent contact if: you have a fever, your pain is not controlled, your pain is worsening, your pain is unusual for you, you have any medication questions . . "Provider Documentation" section prepared by Carl Jackson. . VTE Core Measure Inpt VTE Proph given/why not?: Unfractionated heparin SQ
[2017-02-14] MEDS ORDERED: NURSING VERBAL MED ORDER ONE (10:30)
[2017-02-14 10:34] VITALS: BP 123/73; PULSE 89; TEMP 36.8; O2SAT 95
[2017-02-14] MEDS: SODIUM CHLORIDE 0.9% IV SCH (12:08)
[2017-02-14] MEDS: DAPTOMYCIN IV SCH (12:08)
[2017-03-06] MEDS ORDERED: DAPT500I (11:13)
[2017-05-30] MEDS ORDERED: OXYC-57 PO (15:28)
== END 2017-02-14 14:25 | disposition home health service (06) | DRG 862 ==
LOC: C.EDB 13:58 → C.MSW 18:22 → UNDOADMIN 18:22 → EDBEDREQSVC 18:41 → EDBEDREQ 18:42 → ENRESERV 19:24
PROVIDERS: ADMIT Internal Medicine; ATTEND Hospitalist
DX: T81.4XXA Infection following a procedure, initial encounter (principal); E43 Unspecified severe protein-calorie malnutrition; D46.9 Myelodysplastic syndrome, unspecified; J44.9 Chronic obstructive pulmonary disease, unspecified; F17.200 Nicotine dependence, unspecified, uncomplicated; E55.9 Vitamin D deficiency, unspecified; D64.9 Anemia, unspecified; D69.6 Thrombocytopenia, unspecified; Z86.14 Personal history of Methicillin resistant Staphylococcus aureus infection; Z91.040 Latex allergy status; B95.62 Methicillin resistant Staphylococcus aureus infection as the cause of diseases classified elsewhere; Z85.3 Personal history of malignant neoplasm of breast; Y92.009 Unspecified place in unspecified non-institutional (private) residence as the place of occurrence of the external cause; Y83.8 Other surgical procedures as the cause of abnormal reaction of the patient, or of later complication, without mention of misadventure at the time of the procedure

== ENCOUNTER → 2017-02-20 | Outpatient (CLI) | payer OTHER ==
[~2017-02-20] MED LIST changes: +ADVIN25/60 INH; +DAPT500I; +ERGO1CAP41 PO; +ERGO500037 PO; +LORA10CA2 PO; +NICO14DI31 TD; +NUTRLIQ21 PO; +OXYC-57 PO; +PREG75CA PO; +PRVHFAIN INH; +RIZA1TAB11 PO
[2017-02-20 16:22] LABS: MEAN CELL VOLUME 83.9 fL (80-100); MEAN CORPUSCULAR HEMOGLOBIN 26.5 pg (25-34); MEAN CORPUSCULAR HGB CONC 31.5 g/dl (32-36); PLATELET COUNT 532 K/uL (130-400); WHITE BLOOD COUNT 19.35 K/uL (4.8-10.8)
[2017-02-20 16:25] LABS: ALT/SGPT 11 U/L (12-78); BLOOD UREA NITROGEN 11 mg/dl (7-18); BUN/CREATININE RATIO 12.2 (10-20); C-REACTIVE PROTEIN 1.22 mg/dl (0-0.29); CARBON DIOXIDE 24 mmol/L (21-32); CHLORIDE 108 mmol/L (98-107); CREATININE 0.93 mg/dl (0.60-1.20); GLUCOSE 96 mg/dl (70-99); POTASSIUM 3.8 mmol/L (3.5-5.1); SODIUM 142 mmol/L (136-145)
[2017-02-20 16:28] LABS: ALB/GLOB RATIO 0.9 (0.9-2); ALKALINE PHOSPHATASE 91 U/L (45-117); AST/SGOT 10 U/L (15-37)
[2017-02-20 16:34] LABS: CALCIUM 8.5 mg/dl (8.5-10.1)
--- NOTE | 2017-03-14 07:18 | CODING QUERY MEDICAL NECESSITY ---
Valid Physician Order Needed A valid physician order must be submitted in order to properly bill for the service(s) provided, including date of service(s), valid diagnosis, and physician signature. If these tests are done on a recurring basis the original physican order must be submitted in order to code and bill for the service(s) provided. Please fax us the original, signed physician order so that we may expedite billing to [phone] DOS 02/20/17 * CMP * CREATINE PHOSPHOKINASE * C -REACTIVE PROTEIN * CBC W/O DIFF * ERYTHROCYTE SEDIMENTATION RATE Thank you Carline [facility] Information Management
--- NOTE | 2017-04-21 07:04 | CODING QUERY MEDICAL NECESSITY ---
SUPPORTING DIAGNOSIS NEEDED A supporting diagnosis is required for the test/procedure performed on this patient in order for us to be reimbursed by the patient's insurance. Please provide a supporting diagnosis for the following test/procedure listed below next to the test name along with your signature. *If there is no additional diagnosis for this patient that would support the following test/procedure please document that below next to the test/procedure. Test(s)/Procedure(s) that require a supporting diagnosis: * CMP DIAGNOSIS: * CREATINE PHOSPHOKINASE DIAGNOSIS: * C-REACTIVE PROTEIN DIAGNOSIS: * CBC W/O DIFF DIAGNOSIS: * ERYTHROCYTE SEDIMENTATION RATE DIAGNOSIS: Provider Signature: Date: Thank you Carline Ascencio [employer] Information Management Once completed, please kindly fax back to [phone] For questions please call [phone]
== END | disposition home or self-care (01) ==
LOC: C.LABSPEC 14:54
PROVIDERS: ATTEND Internal Medicine Infectious Disease
DX: Z01.89 Encounter for other specified special examinations (principal)

== ENCOUNTER → 2017-03-08 | Outpatient (CLI) | payer OTHER ==
[2017-03-08 14:14] LABS: HEMATOCRIT 29.8 % (37-47); MEAN CELL VOLUME 83.7 fL (80-100); MEAN CORPUSCULAR HEMOGLOBIN 25.3 pg (25-34); PLATELET COUNT 635 K/uL (130-400); RED BLOOD COUNT 3.56 M/uL (4.2-5.4); WHITE BLOOD COUNT 16.37 K/uL (4.8-10.8)
[2017-03-08 14:17] LABS: MEAN CORPUSCULAR HGB CONC 30.2 g/dl (32-36)
[2017-03-08 14:41] LABS: ALB/GLOB RATIO 0.9 (0.9-2); ALKALINE PHOSPHATASE 93 U/L (45-117); ALT/SGPT 14 U/L (12-78); AST/SGOT 12 U/L (15-37); BLOOD UREA NITROGEN 19 mg/dl (7-18); BUN/CREATININE RATIO 19.7 (10-20); C-REACTIVE PROTEIN 0.95 mg/dl (0-0.29); CALCIUM 8.7 mg/dl (8.5-10.1); CARBON DIOXIDE 21 mmol/L (21-32); CHLORIDE 112 mmol/L (98-107); CREATININE 0.97 mg/dl (0.60-1.20); GLUCOSE 114 mg/dl (70-99); POTASSIUM 3.8 mmol/L (3.5-5.1); SODIUM 142 mmol/L (136-145)
== END | disposition home or self-care (01) ==
LOC: C.LABSPEC 13:51
PROVIDERS: ATTEND Internal Medicine Infectious Disease
DX: L08.9 Local infection of the skin and subcutaneous tissue, unspecified (principal)

== ENCOUNTER → 2017-03-13 | Outpatient (CLI) | payer OTHER ==
[2017-03-13 14:11] LABS: BASO % 1.7 %; BASO ABS # 0.27 K/uL (0-0.2); HEMATOCRIT 29.1 % (37-47); IG% 0.4 %; LYMPH % 17.2 %; MEAN CELL VOLUME 84.3 fL (80-100); MEAN CORPUSCULAR HEMOGLOBIN 24.9 pg (25-34); MEAN CORPUSCULAR HGB CONC 29.6 g/dl (32-36); MONO % 5.8 %; NEUT % 65.9 %; PLATELET COUNT 538 K/uL (130-400); RED BLOOD COUNT 3.45 M/uL (4.2-5.4); WHITE BLOOD COUNT 16.27 K/uL (4.8-10.8)
[2017-03-13 14:19] LABS: ALT/SGPT 14 U/L (12-78); BLOOD UREA NITROGEN 26 mg/dl (7-18); BUN/CREATININE RATIO 23.2 (10-20); CALCIUM 8.9 mg/dl (8.5-10.1); CARBON DIOXIDE 23 mmol/L (21-32); CHLORIDE 108 mmol/L (98-107); GLUCOSE 139 mg/dl (70-99); POTASSIUM 4.3 mmol/L (3.5-5.1); SODIUM 139 mmol/L (136-145)
[2017-03-13 14:21] LABS: ALB/GLOB RATIO 0.9 (0.9-2); ALKALINE PHOSPHATASE 96 U/L (45-117); AST/SGOT 13 U/L (15-37)
[2017-03-13 14:52] LABS: ANISOCYTOSIS PRESENT; COMPLETE YES; GIANT PLATELETS 2+; POIKILOCYTOSIS PRESENT; TARGET CELLS 1+
== END | disposition home or self-care (01) ==
LOC: C.LABSPEC 13:29
PROVIDERS: ATTEND Internal Medicine
DX: Z79.2 Long term (current) use of antibiotics (principal)

== ENCOUNTER → 2017-03-20 | Outpatient (CLI) | payer OTHER ==
[2017-03-20 12:50] LABS: HEMATOCRIT 30.5 % (37-47); MEAN CELL VOLUME 86.2 fL (80-100); MEAN CORPUSCULAR HGB CONC 30.2 g/dl (32-36); RED BLOOD COUNT 3.54 M/uL (4.2-5.4)
[2017-03-20 13:09] LABS: ALT/SGPT 17 U/L (12-78); AST/SGOT 13 U/L (15-37); BLOOD UREA NITROGEN 19 mg/dl (7-18); BUN/CREATININE RATIO 19.6 (10-20); CALCIUM 8.6 mg/dl (8.5-10.1); CARBON DIOXIDE 26 mmol/L (21-32); CHLORIDE 110 mmol/L (98-107); CREATININE 0.95 mg/dl (0.60-1.20); GLUCOSE 143 mg/dl (70-99); POTASSIUM 4.4 mmol/L (3.5-5.1); SODIUM 141 mmol/L (136-145)
[2017-03-20 13:11] LABS: ALB/GLOB RATIO 0.9 (0.9-2); ALKALINE PHOSPHATASE 99 U/L (45-117)
[2017-03-20 13:32] LABS: PLATELET COUNT 491 K/uL (130-400)
== END | disposition home or self-care (01) ==
LOC: C.LABSPEC 11:49
PROVIDERS: ATTEND Internal Medicine Infectious Disease
DX: Z79.899 Other long term (current) drug therapy (principal); Z79.2 Long term (current) use of antibiotics

== ENCOUNTER 2017-05-23 19:08 | Inpatient (IN) | payer OTHER ==
[~2017-05-23] VITALS: Ht 162.6 cm; Wt 51.5 kg
[~2017-05-23 19:08] MED LIST changes: -ERGO500037 PO; -OXYC-57 PO
[2017-05-23] MEDS ORDERED: ACETAMINOPHEN 500 MG TAB PO STA (19:41)
[2017-05-23] MEDS ORDERED: HYDROCODONE/ACETAMOPHEN 5/325MG TAB PO STA (20:01)
--- NOTE | 2017-05-23 20:37 | DIAGNOSTIC IMAGING REPORT ---
LEFT KNEE 1 OR 2 VIEWS ROUTINE CLINICAL HISTORY: eval fx, dislocation COMPARISON: None. DISCUSSION: The bones and joint spaces appear intact. There is no evidence of fracture, dislocation or bony disease. Subtle lucency lateral aspect lateral tibial plateau felt to be artifactual as it is not seen in the femoral images. IMPRESSION: Degenerative change. No acute bony abnormality. The above report was generated using voice recognition software. It may contain grammatical, syntax or spelling errors. Electronically signed by: Bandar Negro M.D. 05/23/2017 8:36 PM Dictated Date/Time: 05/23/2017 8:35 PM
--- NOTE | 2017-05-23 20:39 | DIAGNOSTIC IMAGING REPORT ---
LEFT FEMUR 2 VIEWS ROUTINE CLINICAL HISTORY: Eval fx, dislocation trauma COMPARISON: None. DISCUSSION: Total left hip prosthetic. Good contact between prosthetic and underlying bone. Nondisplaced oblique cortical fracture proximal femoral shaft. No evidence of dislocation. No evidence for acetabular protrusion. There is no evidence for soft tissue swelling. IMPRESSION: Nondisplaced oblique fracture proximal femoral shaft. Status post total left hip arthroplasty. The above report was generated using voice recognition software. It may contain grammatical, syntax or spelling errors. Electronically signed by: Bandar Negro M.D. 05/23/2017 8:37 PM Dictated Date/Time: 05/23/2017 8:36 PM
--- NOTE | 2017-05-23 20:40 | DIAGNOSTIC IMAGING REPORT ---
LEFT ELBOW MIN 3 VIEWS ROUTINE CLINICAL HISTORY: eval fx, dislocation trauma. Pain. COMPARISON: None. DISCUSSION: Nondisplaced cortical fracture left radial neck. No evidence of dislocation. Bony mineralization is diminished throughout. There is no evidence for soft tissue swelling. IMPRESSION: Probable nondisplaced cortical fracture radial neck. Osteopenia. The above report was generated using voice recognition software. It may contain grammatical, syntax or spelling errors. Electronically signed by: Bandar Negro M.D. 05/23/2017 8:38 PM Dictated Date/Time: 05/23/2017 8:37 PM
--- NOTE | 2017-05-23 20:41 | DIAGNOSTIC IMAGING REPORT ---
PELVIS 1 OR 2 VIEW ROUTINE CLINICAL HISTORY: eval fx, dislocation, hx of hip replacement in Oct 2016 trauma COMPARISON: 02/06/2017 DISCUSSION: Oblique nondisplaced fracture proximal left femoral shaft. Slight increase in bone separation of the lesser trochanter relation to the femoral prosthetic. No evidence for stable protrusion. No evidence dislocation. There is no evidence for soft tissue swelling. IMPRESSION: Slightly distracted oblique fracture proximal femoral shaft. Pre-existing total left hip arthroplasty. The above report was generated using voice recognition software. It may contain grammatical, syntax or spelling errors. Electronically signed by: Bandar Negro M.D. 05/23/2017 8:40 PM Dictated Date/Time: 05/23/2017 8:39 PM
--- NOTE | 2017-05-23 20:42 | DIAGNOSTIC IMAGING REPORT ---
LEFT HUMERUS MIN 2 VIEWS ROUTINE CLINICAL HISTORY: eval fx, dislocation trauma COMPARISON: None. DISCUSSION: Considerable degenerative change of left humeral head. Moderate degenerative change acromioclavicular joint. No well-defined evidence for acute fracture. Cortical margins appear intact. There is no evidence for soft tissue swelling. IMPRESSION: Significant degenerative change left shoulder. No acute process of the humerus. The above report was generated using voice recognition software. It may contain grammatical, syntax or spelling errors. Electronically signed by: Bandar Ngero M.D. 05/23/2017 8:40 PM Dictated Date/Time: 05/23/2017 8:40 PM
[2017-05-23] MEDS ORDERED: FENTANYL CITRATE INJ 50 MCG/1 ML 2 ML VIAL IV STA ×3 (20:44→23:56)
--- NOTE | 2017-05-23 21:20 | EMERGENCY ROOM VISIT NOTE ---
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 Patient states she was walking up a few stairs outside a restaurant when she lost her balance and fell backwards onto her left hip and elbow. She denies hitting her head and states she did not have loss of consciousness. She complains of severe pain in the left upper thigh and hip area and mild pain in her left elbow. She states that she was unable to walk on the leg after the injury. She reports a left total hip replacement in October of this year by Dr. Avendaño. She also has some mild abrasions on her bilateral ankles. She reports that her tetanus is up-to-date. She denies any other symptoms of headache, vision changes, chest pain, shortness of breath, palpitations, dizziness, abdominal pain, back pain. Review of Systems A complete 10 point review of systems was reviewed with the patient with pertinent positives and negatives as per history of present illness. All else were negative. Past Medical/Surgical History Medical Problems: (1) Abscess (2) Anemia (3) Anemia due to blood loss, acute (4) Breast CA (5) COPD (chronic obstructive pulmonary disease) (6) Essential thrombocythemia (7) History of breast cancer (8) History of peptic ulcer disease (9) Left hip pain (10) Leukocytosis (11) Myelodysplastic syndrome (12) Post op infection (13) Pressure ulcer of sacral region, stage 1 (14) Puncture wound of left hip (15) S/P ORIF (open reduction internal fixation) fracture Surgical Problems: (1) History of repair of left hip joint (2) Post-operative state (3) Status post cholecystectomy (4) Status post hysterectomy (5) Status post mastectomy Family History Colon cancer FATHER Social History Smoking Status: Current Every Day Smoker Drug Use: none Marital Status: Housing Status: lives with family Occupation Status: retired Current/Historical Medications Scheduled Amitriptyline Hcl (Elavil), 75 MG PO HS Anagrelide Hcl (Anagrelide Hydrochloride), 1 MG PO BID Clopidogrel (Plavix), 75 MG PO QAM Ergocalciferol (Vitamin D 48650 Unit), 50,000 UNIT PO WK Fluticasone Prop/Salmeterol (Advair Diskus 250/50 60 Dose), 1 PUFF INH BID Hydroxyurea (Hydrea Cap), 500 MG PO Q2D Nicotine (Nicoderm Cq 14MG Patch), 1 PATCH TD DAILY Pantoprazole (Protonix), 40 MG PO BID Pregabalin (Lyrica), 75 MG PO HS Temazepam (Restoril), 30 MG PO HS Scheduled PRN Albuterol (Ventolin Hfa), 2 PUFFS INH Q6H PRN for Wheezing Loratadine (Claritin), 10 MG PO DAILY PRN for Allergy Symptoms Nutritional Supplements (Novice Instant Breakfa), 1-2 DOSE PO DAILY PRN for Nutritional Supplement As Need Ondansetron Hcl (Zofran), 8 MG PO TID PRN for Nausea Rizatriptan Benzoate (Rizatriptan Benzoate), 10 MG PO UD PRN for Migraine Physical Exam Vital Signs Date Time Temp Pulse Resp B/P (MAP) Pulse Ox O2 Delivery O2 Flow Rate FiO2 05/23/17 21:28 95 20 94/69 93 Room Air 05/23/17 19:21 37.3 95 18 95/58 98 Room Air Physical Exam CONSTITUTIONAL: No acute distress, but does appear to be in some pain. Well appearing and well nourished. Alert and oriented X 4 with normal affect. HEENT: Normocephalic, atraumatic. Pupils equal, round and reactive to light, EOMI. TMs normal. Pharynx normal. NECK: Supple, full active range of motion without discomfort. No midline tenderness to palpation. RESPIRATORY: Clear to auscultation bilaterally with no wheezing, crackles, rhonchi or stridor. Equal expansion bilaterally. CARDIOVASCULAR: Regular rate and rhythm with no murmurs, rubs or gallops. Normal peripheral perfusion. No edema. GASTROINTESTINAL: Soft, nontender, nondistended. Bowel sounds present in all quadrants. MUSCULOSKELETAL: There is tenderness to palpation of the left proximal thigh, significantly increased pain with any attempts to range the left hip. No pain with range of motion of the knees and ankles. There are small abrasions noted to the left lateral ankle and right medial ankle, bleeding controlled. There is ecchymosis on the left elbow and forearm, tenderness to palpation of the left elbow and with range of motion of the elbow. INTEGUMENTARY: No rash or other significant dermatologic conditions noted. NEUROLOGIC: Cranial nerves II-XII grossly intact. No focal neurologic deficits noted. Normal strength, normal sensation, normal speech. Medical Decision & Procedures ER Provider Diagnostic Interpretation: LEFT ELBOW MIN 3 VIEWS ROUTINE CLINICAL HISTORY: eval fx, dislocation trauma. Pain. COMPARISON: None. DISCUSSION: Nondisplaced cortical fracture left radial neck. No evidence of dislocation. Bony mineralization is diminished throughout. There is no evidence for soft tissue swelling. IMPRESSION: Probable nondisplaced cortical fracture radial neck. Osteopenia. ----- LEFT FEMUR 2 VIEWS ROUTINE CLINICAL HISTORY: Eval fx, dislocation trauma COMPARISON: None. DISCUSSION: Total left hip prosthetic. Good contact between prosthetic and underlying bone. Nondisplaced oblique cortical fracture proximal femoral shaft. No evidence of dislocation. No evidence for acetabular protrusion. There is no evidence for soft tissue swelling. IMPRESSION: Nondisplaced oblique fracture proximal femoral shaft. Status post total left hip arthroplasty. ----- PELVIS 1 OR 2 VIEW ROUTINE CLINICAL HISTORY: eval fx, dislocation, hx of hip replacement in Oct 2016 trauma COMPARISON: 02/06/2017 DISCUSSION: Oblique nondisplaced fracture proximal left femoral shaft. Slight increase in bone separation of the lesser trochanter relation to the femoral prosthetic. No evidence for stable protrusion. No evidence dislocation. There is no evidence for soft tissue swelling. IMPRESSION: Slightly distracted oblique fracture proximal femoral shaft. Pre-existing total left hip arthroplasty. Laboratory Results 05/23/17 21:09 Red Blood Count 3.60, Mean Corpuscular Volume 86.9, Mean Corpuscular Hemoglobin 27.5, Mean Corpuscular Hemoglobin Concent 31.6, Neutrophils (%) (Auto) 82.3, Lymphocytes (%) (Auto) 8.5, Monocytes (%) (Auto) 4.6, Eosinophils (%) (Auto) 2.3 , Basophils (%) (Auto) 1.0, Neutrophils # (Auto) 27.69, Lymphocytes # (Auto) 2.85, Monocytes # (Auto) 1.56, Eosinophils # (Auto) 0.79, Basophils # (Auto) 0.33 05/23/17 21:09 Test 05/23/17 21:09 White Blood Count 33.66 K/uL (4.8-10.8) Red Blood Count 3.60 M/uL (4.2-5.4) Hemoglobin 9.9 g/dL (12.0-16.0) Hematocrit 31.3 % (37-47) Mean Corpuscular Volume 86.9 fL (80-100) Mean Corpuscular Hemoglobin 27.5 pg (25-34) Mean Corpuscular Hemoglobin Concent 31.6 g/dl (32-36) Platelet Count 634 K/uL (130-400) Neutrophils (%) (Auto) 82.3 % Lymphocytes (%) (Auto) 8.5 % Monocytes (%) (Auto) 4.6 % Eosinophils (%) (Auto) 2.3 % Basophils (%) (Auto) 1.0 % Neutrophils # (Auto) 27.69 K/uL (1.4-6.5) Lymphocytes # (Auto) 2.85 K/uL (1.2-3.4) Monocytes # (Auto) 1.56 K/uL (0.11-0.59) Eosinophils # (Auto) 0.79 K/uL (0-0.5) Basophils # (Auto) 0.33 K/uL (0-0.2) RDW Standard Deviation 110.5 fL (36.4-46.3) RDW Coefficient of Variation 32.5 % (11.5-14.5) Immature Granulocyte % (Auto) 1.3 % Immature Granulocyte # (Auto) 0.44 K/uL (0.00-0.02) Nucleated RBC Absolute Count (auto) K/uL (0-0) Nucleated Red Blood Cells % % Large Platelets 1+ Poikilocytosis PRESENT Anisocytosis PRESENT Prothrombin Time 11.1 SECONDS (9.0-12.0) Prothromb Time International Ratio 1.0 (0.9-1.1) Activated Partial Thromboplast Time 23.3 SECONDS (21.0-31.0) Partial Thromboplastin Ratio 0.9 Anion Gap 7.0 mmol/L (3-11) Est Creatinine Clear Calc Drug Dose 28.8 ml/min Estimated GFR () 46.8 Estimated GFR (Non- 40.4 BUN/Creatinine Ratio 16.4 (10-20) Calcium Level 9.0 mg/dl (8.5-10.1) Medications Administered Medications (Trade) Dose Ordered Sig/Pradip Route Start Time Stop Time Status Last Admin Dose Admin Acetaminophen/ Hydrocodone Bitart (Bryant 5/325 Tab) 1 tab NOW STAT PO 05/23/17 20:01 05/23/17 20:02 DC 05/23/17 20:34 1 TAB Fentanyl Citrate (Fentanyl Inj) 50 mcg NOW STAT IV 05/23/17 20:44 05/23/17 20:47 DC 05/23/17 21:26 50 MCG Medical Decision CC: Patient presenting with complaint of left hip and elbow pain after a fall Interpretation of Labs: Marked leukocytosis (history of myelodysplastic syndrome ), anemia and thrombophilia consistent with baseline, no significant electrolyte abnormalities, mildly elevated creatinine at 1.3 which is increased from baseline, normal coagulation factors. UA negative. Differential Diagnosis: Includes, but not limited to contusion, abrasion, fracture, hip prosthesis dislocation, hematoma. Medication Reconciliation: I attest that I have personally reviewed the patient' s current medication list. Vital signs review: I reviewed the patient's vital signs and interpret them as follows: T: Afebrile; BP: Hypotensive; HR: Tachycardic; RR: Within normal limits; Pulse Ox: Within normal limits on room air. Summary: Patient was evaluated at bedside, history of physical exam performed. Patient is alert and in no acute distress, resting comfortably in the stretcher. Patient does complain of pain with palpation of the left upper thigh as well as increased pain with any manipulation of the left thigh/hip joint. There is also tenderness to palpation and with range of motion of the left elbow , with noted multiple ecchymotic areas to the elbow and forearm. Orders were placed at bedside for x-rays of the pelvis, left femur and knee, left humerus and elbow to evaluate for traumatic injuries including fracture and dislocation. Patient was given Bryant for pain and an ice pack to her left thigh. Patient discussed with Dr. Madsen, who agrees with my assessment and plan. X-rays reviewed, concerning for an acute, nondisplaced fracture of the left proximal femur adjacent to hip prosthetic, as well as a probable left radial neck fracture. Left hip prosthesis appears to be intact. No acute bony abnormality of the left knee or left humerus on x-ray. I discussed these results with Dr. Madsen. We will plan to admit the patient, given her complex medical history, we will recommend a medicine admission with orthopedic consult. Orders placed for basic labs, EKG, chest x-ray, and IV fentanyl ordered for additional pain management. Due to patient's history of right-sided breast cancer, her right arm cannot be used for IVs. The left arm will be used for IV placement and blood draws, taking care to avoid the exact site of fracture if possible. The left arm was placed in a sling. I spoke over the phone with Dr. Adams, Orthopedics, regarding the patient's injuries. He agrees with plan for admission, and will evaluate the patient in the AM for possible surgery. I spoke with Dr. Nick, Hospitalist, who agrees to admit the patient. Patient reassessed multiple times throughout ED stay, she reports her pain is improved after IV fentanyl. The patient and her daughter were updated on all results and plan for admission. All questions were answered at this time. Patient and her daughter verbalized understanding and were in agreement with this plan. Head Trauma GCS Score: 15 Medication Reconcilliation Current Medication List: was personally reviewed by me Blood Pressure Screening Patient's blood pressure: Low blood pressure Impression Primary Impression: Femur fracture, left Additional Impressions: Fall Fracture of radial neck, left, closed Departure Information Dispostion Admitted as an inpatient Condition FAIR Referrals Valerie Chavez M.D. (PCP) Juan Carlos Adams D.O. Patient Instructions My [facility] Problem Qualifiers Primary Impression: Femur fracture, left Encounter type: initial encounter Femur location: shaft Fracture type: closed Fracture morphology: oblique Fracture alignment: nondisplaced Qualified Codes: S72.335A - Nondisplaced oblique fracture of shaft of left femur, initial encounter for closed fracture Additional Impressions: Fall Encounter type: initial encounter Qualified Codes: W19.XXXA - Unspecified fall, initial encounter Fracture of radial neck, left, closed Encounter type: initial encounter Fracture alignment: nondisplaced Qualified Codes: S52.135A - Nondisplaced fracture of neck of left radius, initial encounter for closed fracture
[2017-05-23 21:31] LABS: HEMATOCRIT 31.3 % (37-47); MEAN CELL VOLUME 86.9 fL (80-100); MEAN CORPUSCULAR HEMOGLOBIN 27.5 pg (25-34); MEAN CORPUSCULAR HGB CONC 31.6 g/dl (32-36); PLATELET COUNT 634 K/uL (130-400); WHITE BLOOD COUNT 33.66 K/uL (4.8-10.8)
[2017-05-23 21:46] LABS: PARTIAL THROMBOPLASTIN RATIO 0.9; PROTHROMBIN TIME (PATIENT) 11.1 SECONDS (9.0-12.0)
[2017-05-23 21:48] LABS: BLOOD UREA NITROGEN 21 mg/dl (7-18); BUN/CREATININE RATIO 16.4 (10-20); CARBON DIOXIDE 23 mmol/L (21-32); CHLORIDE 109 mmol/L (98-107); GLUCOSE 69 mg/dl (70-99); SODIUM 139 mmol/L (136-145)
[2017-05-23] MEDS ORDERED: ERGO500037 PO (21:55)
[2017-05-23] MEDS ORDERED: ONDA8TAB6 PO (21:57)
[2017-05-23 22:00] LABS: ANISOCYTOSIS PRESENT; BASO ABS # 0.33 K/uL (0-0.2); COMPLETE YES; EOS % 2.3 %; IG% 1.3 %; LARGE PLATELETS 1+; LYMPH % 8.5 %; LYMPH ABS # 2.85 K/uL (1.2-3.4); MONO % 4.6 %; NEUT % 82.3 %; POIKILOCYTOSIS PRESENT
--- NOTE | 2017-05-23 22:15 | DIAGNOSTIC IMAGING REPORT ---
ADDENDUM Following review of the patient's prior chest films, it is possible that the density of the right chest relates to the patient's right breast implant. It appears more prominent currently which may be a technical variation.. Electronically signed by: Bandar Negro M.D. 05/23/2017 10:44 PM Dictated Date/Time: 05/23/2017 10:43 PM ORIGINAL REPORT CHEST ONE VIEW PORTABLE CLINICAL HISTORY: Trauma COMPARISON STUDY: 10/16/2016 FINDINGS: Interval development of a 15 x 11 cm well-circumscribed region of increased density right midlung. Diagnostic considerations include midlung mass versus chest wall mass. Lungs otherwise appear clear. Chronic pleural reactive change at the lung bases. No evidence for cardiac enlargement. IMPRESSION: 15 x 11 cm mass specifically involving the right hemithorax or chest wall. CT study is suggested. The above report was generated using voice recognition software. It may contain grammatical, syntax or spelling errors. Electronically signed by: Bandar Negro M.D. 05/23/2017 10:14 PM Dictated Date/Time: 05/23/2017 10:12 PM
--- NOTE | 2017-05-23 22:21 | EMERGENCY ROOM VISIT NOTE ---
ED Visit Note First contact with patient: 19:27 I have personally seen and evaluated the patient with the PA. I agree with the diagnosis and management decisions and have been personally involved in the case. X-ray findings of a femur fracture as well as the left elbow fracture were discussed with the patient and her daughter. The patient will be evaluated by the hospitalist service for admission, orthopedics, Dr. Adams to consult. Please see BRIANNE Cope's notes for further details of the history, physical and visit.
--- NOTE | 2017-05-23 23:20 | History and Physical ---
History & Physical Date & Time of Service: May 23, 2017 at 23:20 . Chief Complaint: left thigh pain . Primary Care Physician: Valerie Chavez M.D. . History of Present Illness Source: patient, family, clinic records, hospital records 76 YO female followed by Dr. Valerie Chavez for Internal Medicine and Dr. Mainor Chavez for Hematology / Oncology. History of myelodysplastic syndrome, COPD, remote history of breast Ca, and other problems as noted below. Entering a restaurant this evening, lost her balance on steps, fell, and injured her left arm, chest wall, and thigh. Unable to bear weight on the left lower extremity without severe pain. No syncope, palpitations, chest pain, focal weakness. Brought to ED for evaluation. Found to have oblique periprosthetic fracture of left femur. Left thigh pain severe - 9/10, does not radiate, worse with movement, minimal relief with IV fentanyl. . Past Medical/Surgical History Chronic and Resolved Medical Problems: (1) Anemia Status: Chronic (2) Essential thrombocythemia Status: Chronic (3) History of breast cancer Status: Chronic (4) History of MRSA infection Permanent Comment: left hip wound Status: Chronic (5) History of peptic ulcer disease Status: Chronic (6) Myelodysplastic syndrome Status: Chronic (7) S/P ORIF (open reduction internal fixation) fracture Status: Chronic Surgical Problems: (1) History of repair of left hip joint Status: Resolved (2) Status post cholecystectomy Status: Chronic (3) Status post hysterectomy Status: Chronic (4) Status post mastectomy Permanent Comment: modified right mastectomy 1990 Status: Chronic (5) Status post total hip replacement, left Status: Chronic . Family History Colon cancer FATHER Social History Smoking Status: Current Every Day Smoker Alcohol Use: none Drug Use: none Marital Status: Housing status: lives with family Occupational Status: retired Immunizations History of Influenza Vaccine: Yes History of Tetanus Vaccine?: No History of Pneumococcal: Yes History of Hepatitis B Vaccine: No Multi-Drug Resistant Organisms History of MDRO: Yes Type of MDRO: MRSA Allergies Coded Allergies: Lobster (Verified Allergy, Severe, HIVES, 05/23/17) Latex1 -Allergic Contact Dermititis (Verified Allergy, Unknown, HIVES, ) NO KNOWN DRUG ALLERGIES (Verified Allergy, Unknown, ., 05/23/17) Uncoded Allergies: METALS (Allergy, Unknown, HIVES/ITCHINESS, 09/22/16) PATIENT REPORTS ANY METALS UNDER 14 KT GOLD CAUSES HER TO BECOME ITCHY AND GET HIVES Home Medications Scheduled Amitriptyline Hcl (Elavil), 75 MG PO HS Anagrelide Hcl (Anagrelide Hydrochloride), 1 MG PO BID Clopidogrel (Plavix), 75 MG PO QAM Ergocalciferol (Vitamin D 69582 Unit), 50,000 UNIT PO WK Fluticasone Prop/Salmeterol (Advair Diskus 250/50 60 Dose), 1 PUFF INH BID Hydroxyurea (Hydrea Cap), 500 MG PO Q2D Nicotine (Nicoderm Cq 14MG Patch), 1 PATCH TD DAILY Pantoprazole (Protonix), 40 MG PO BID Pregabalin (Lyrica), 75 MG PO HS Temazepam (Restoril), 30 MG PO HS Scheduled PRN Albuterol (Ventolin Hfa), 2 PUFFS INH Q6H PRN for Wheezing Loratadine (Claritin), 10 MG PO DAILY PRN for Allergy Symptoms Nutritional Supplements ([place] Instant Breakfa), 1-2 DOSE PO DAILY PRN for Nutritional Supplement As Need Ondansetron Hcl (Zofran), 8 MG PO TID PRN for Nausea Rizatriptan Benzoate (Rizatriptan Benzoate), 10 MG PO UD PRN for Migraine Review of Systems Constitutional: No fever, No weight loss Eyes: No worsening of vision, No diplopia ENT: No hearing loss, No nasal symptoms Respiratory: + cough (chronic, unchanged), + shortness of breath (chronic, unchanged) Cardiovascular: No chest pain, No edema, No palpitations Abdomen: No pain, No nausea, No vomiting, No GI bleeding Musculoskeletal: + joint pain, + problem reported (per HPI) Genitourinary - Female: No dysuria, No hematuria Neurologic: + problem reported (migraine headaches) Endocrine: No excessive thirst, No excessive urination Hematologic / Lymphatic: + abnormal bleeding/bruising (bruises easily), No swollen lymph nodes Integumentary: No rash, No new/changing skin lesions Physical Exam Vital Signs Date Time Temp Pulse Resp B/P (MAP) Pulse Ox O2 Delivery O2 Flow Rate FiO2 05/23/17 21:28 95 20 94/69 93 Room Air 05/23/17 19:21 37.3 95 18 95/58 98 Room Air General Appearance: WD/WN, + moderate distress Head: normocephalic, atraumatic Eyes: normal inspection, PERRL, EOMI, sclerae normal, + pertinent finding ( conunctivae pink) ENT: normal ENT inspection, hearing grossly normal, pharynx normal Neck: supple, no adenopathy, thyroid normal, no JVD, trachea midline Respiratory/Chest: no respiratory distress, no accessory muscle use, + wheezing (diffuse, mild), + pertinent finding (right breast implant) Cardiovascular: regular rate, rhythm, no edema, no gallop, no JVD, no murmur, + abnormal peripheral pulses (diminished) Abdomen/GI: normal bowel sounds, non tender, soft, no organomegaly, no pulsatile mass Extremities/Musculoskelatal: normal inspection, no calf tenderness, normal capillary refill, no pedal edema, + pertinent finding (left thigh tenderness) Neurologic/Psych: cane piler II-XII nml as tested (PERRL, EOMI, no facial palsy, no dysartrhia), alert, oriented x 3, + pertinent finding (anxious) Skin: normal color, warm/dry, no rash Lymphatic: no adenopathy (cervical) Diagnostics Laboratory Results Results Past 24 Hours Test 05/23/17 21:09 05/23/17 21:53 Range/Units White Blood Count 33.66 4.8-10.8 K/uL Red Blood Count 3.60 4.2-5.4 M/uL Hemoglobin 9.9 12.0-16.0 g/dL Hematocrit 31.3 37-47 % Mean Corpuscular Volume 86.9 80-100 fL Mean Corpuscular Hemoglobin 27.5 25-34 pg Mean Corpuscular Hemoglobin Concent 31.6 32-36 g/dl Platelet Count 634 130-400 K/uL Neutrophils (%) (Auto) 82.3 % Lymphocytes (%) (Auto) 8.5 % Monocytes (%) (Auto) 4.6 % Eosinophils (%) (Auto) 2.3 % Basophils (%) (Auto) 1.0 % Neutrophils # (Auto) 27.69 1.4-6.5 K/uL Lymphocytes # (Auto) 2.85 1.2-3.4 K/uL Monocytes # (Auto) 1.56 0.11-0.59 K/uL Eosinophils # (Auto) 0.79 0-0.5 K/uL Basophils # (Auto) 0.33 0-0.2 K/uL RDW Standard Deviation 110.5 36.4-46.3 fL RDW Coefficient of Variation 32.5 11.5-14.5 % Immature Granulocyte % (Auto) 1.3 % Immature Granulocyte # (Auto) 0.44 0.00-0.02 K/uL Nucleated RBC Absolute Count (auto) 0-0 K/uL Nucleated Red Blood Cells % % Large Platelets 1+ Poikilocytosis PRESENT Anisocytosis PRESENT Prothrombin Time 11.1 9.0-12.0 SECONDS Prothromb Time International Ratio 1.0 0.9-1.1 Activated Partial Thromboplast Time 23.3 21.0-31.0 SECONDS Partial Thromboplastin Ratio 0.9 Sodium Level 139 136-145 mmol/L Potassium Level 3.5-5.1 mmol/L Chloride Level 109 98-107 mmol/L Carbon Dioxide Level 23 21-32 mmol/L Anion Gap 7.0 3-11 mmol/L Blood Urea Nitrogen 21 7-18 mg/dl Creatinine 1.30 0.60-1.20 mg/dl Est Creatinine Clear Calc Drug Dose 28.8 ml/min Estimated GFR () 46.8 Estimated GFR (Non- 40.4 BUN/Creatinine Ratio 16.4 10-20 Random Glucose 69 70-99 mg/dl Calcium Level 9.0 8.5-10.1 mg/dl Diagnostic Radiology CHEST ONE VIEW PORTABLE ORIGINAL REPORT FINDINGS: Interval development of a 15 x 11 cm well-circumscribed region of increased density right midlung. Diagnostic considerations include midlung mass versus chest wall mass. Lungs otherwise appear clear. Chronic pleural reactive change at the lung bases. No evidence for cardiac enlargement. IMPRESSION: 15 x 11 cm mass specifically involving the right hemithorax or chest wall. CT study is suggested. The above report was generated using voice recognition software. It may contain grammatical, syntax or spelling errors. Electronically signed by: Bandar Negro M.D. 05/23/2017 10:14 PM Dictated Date/Time: 05/23/2017 10:12 PM CHEST ONE VIEW PORTABLE ADDENDUM Following review of the patient's prior chest films, it is possible that the density of the right chest relates to the patient's right breast implant. It appears more prominent currently which may be a technical variation.. Electronically signed by: Bandar Negro M.D. 05/23/2017 10:44 PM Dictated Date/Time: 05/23/2017 10:43 PM LEFT HUMERUS MIN 2 VIEWS ROUTINE DISCUSSION: Considerable degenerative change of left humeral head. Moderate degenerative change acromioclavicular joint. No well-defined evidence for acute fracture. Cortical margins appear intact. There is no evidence for soft tissue swelling. IMPRESSION: Significant degenerative change left shoulder. No acute process of the humerus. The above report was generated using voice recognition software. It may contain grammatical, syntax or spelling errors. Electronically signed by: Bandar Negro M.D. 05/23/2017 8:40 PM LEFT ELBOW MIN 3 VIEWS ROUTINE DISCUSSION: Nondisplaced cortical fracture left radial neck. No evidence of dislocation. Bony mineralization is diminished throughout. There is no evidence for soft tissue swelling. IMPRESSION: Probable nondisplaced cortical fracture radial neck. Osteopenia. The above report was generated using voice recognition software. It may contain grammatical, syntax or spelling errors. Electronically signed by: Bandar Negro M.D. 05/23/2017 8:38 PM Dictated Date/Time: 05/23/2017 8:37 PM PELVIS 1 OR 2 VIEW ROUTINE DISCUSSION: Oblique nondisplaced fracture proximal left femoral shaft. Slight increase in bone separation of the lesser trochanter relation to the femoral prosthetic. No evidence for stable protrusion. No evidence dislocation. There is no evidence for soft tissue swelling. IMPRESSION: Slightly distracted oblique fracture proximal femoral shaft. Pre-existing total left hip arthroplasty. The above report was generated using voice recognition software. It may contain grammatical, syntax or spelling errors. Electronically signed by: Bandar Negro M.D. 05/23/2017 8:40 PM LEFT FEMUR 2 VIEWS ROUTINE DISCUSSION: Total left hip prosthetic. Good contact between prosthetic and underlying bone. Nondisplaced oblique cortical fracture proximal femoral shaft. No evidence of dislocation. No evidence for acetabular protrusion. There is no evidence for soft tissue swelling. IMPRESSION: Nondisplaced oblique fracture proximal femoral shaft. Status post total left hip arthroplasty. The above report was generated using voice recognition software. It may contain grammatical, syntax or spelling errors. Electronically signed by: Bandar Negro M.D. 05/23/2017 8:37 PM LEFT KNEE 1 OR 2 VIEWS ROUTINE DISCUSSION: The bones and joint spaces appear intact. There is no evidence of fracture, dislocation or bony disease. Subtle lucency lateral aspect lateral tibial plateau felt to be artifactual as it is not seen in the femoral images. IMPRESSION: Degenerative change. No acute bony abnormality. The above report was generated using voice recognition software. It may contain grammatical, syntax or spelling errors. Electronically signed by: Bandar Negro M.D. 05/23/2017 8:36 PM Dictated Date/Time: 05/23/2017 8:35 PM . EKG EKG performed at 21:19 reviewed and demonstrated NSR at 90 / minute, incomplete RBBB, no acute changes. . Impression Assessment and Plan LEFT FEMUR FRACTURE Apparent mechanical fall. X-rays show periprosthetic fracture left proximal femur. Analgesics PRn. Consult Orthopedics. POSSIBLE FRACTURE LEFT RADIAL HEAD Immobilize. Consult Ortho. OSTEOPOROSIS Check vitamin D level. LEFT CHEST WALL PAIN No apparent fractures on plain films of chest. Incentive spirometry. Further evaluation if symptoms worsens. LEUKOCYTOSIS WBC 33,660. Underlying MDS. No fever or specific symptoms of infection. BP a bit low, but not unusual for her. Check UA. Check f/u WBC with procalcitonin in morning. MYELODYSPLASTIC SYNDROME Continue anagrelide and hydroxyurea. Follow CBC. THROMBOCYTOSIS Chronic. Hold clopidogrel pending surgical disposition. COPD Incentive spirometry. Continue Advair + albuterol PRN. SMOKING Smoking cessation counseling. HISTORY PUD Continue PPI. VTE PROPHYLAXIS No anticoagulants pending surgical disposition. SCD's. Ambulate when able. RESUSCITATION STATUS Discussed with patient and her daughter. She does not have a living will or durable power of global ceo. She would like her daughter to make medical decisions for her if she is unable to do so. She would like resuscitation attempted in the event of a cardiopulmonary arrest if there is a reasonable chance of a meaningful recovery, but does not want prolonged extraordinary measures if prognosis is poor. Therefore, code status = "Level 1" (full resuscitation). DISPOSITION Anticipate need for skilled care or inpatient rehab. Internal Medicine follow-up with Dr. Valerie Chavez. Hematology / Medical Oncology follow-up with Dr. Mainor Chavez. . VTE Prophylaxis Risk Level: Moderate Given or contraindicated: SCD's
[2017-05-23] MEDS ORDERED: AMITRIPTYLINE HCL 50 MG TAB PO ONE (23:23)
[2017-05-23] MEDS ORDERED: ALBUTEROL HFA 8 GM INHALER INH PRN (23:30)
[2017-05-23] MEDS ORDERED: ZOLPIDEM TARTRATE 5 MG TAB PO PRN (23:30)
[2017-05-24] VITALS (8 sets, daily range): BP systolic 94–127; BP diastolic 53–97; PULSE 86–102; TEMP 36.7–37.4; O2SAT 90–96; Ht 162.6 cm; Wt 51.5 kg
[2017-05-24] MEDS ORDERED: NICOTINE 14 MG/24 HR TDSY TD ONE (00:18)
[2017-05-24] MEDS: HYDROmorphone INJ 0.5 MG/0.5 ML SYR IV PRN ×7 (01:15→20:28)
[2017-05-24] MEDS ORDERED: PREGABALIN 75 MG CAP PO ONE (01:45)
[2017-05-24] MEDS: TEMAZEPAM 15 MG CAP PO PRN ×2 (02:16→20:41)
[2017-05-24] MEDS: D5W AND LACTATED RINGERS 1,000 ML IV SCH ×2 (04:33→13:59)
[2017-05-24 06:56] LABS: CALCIUM 8.8 mg/dl (8.5-10.1)
[2017-05-24 07:01] LABS: ANISOCYTOSIS PRESENT; BASO ABS # 0.33 K/uL (0-0.2); COMPLETE YES; EOS % 4.3 %; HEMATOCRIT 26.8 % (37-47); HYPOCHROMIA PRESENT; IG% 0.7 %; LYMPH ABS # 2.69 K/uL (1.2-3.4); MEAN CELL VOLUME 87.6 fL (80-100); MEAN CORPUSCULAR HEMOGLOBIN 26.5 pg (25-34); MEAN CORPUSCULAR HGB CONC 30.2 g/dl (32-36); MONO % 6.9 %; NEUT % 70.1 %; OVALOCYTES 1+; PLATELET COUNT 514 K/uL (130-400); PLT ESTIMATE INCREASED; POIKILOCYTOSIS PRESENT; RED BLOOD COUNT 3.06 M/uL (4.2-5.4); TARGET CELLS 1+; WHITE BLOOD COUNT 16.86 K/uL (4.8-10.8)
[2017-05-24] MEDS: FLUTICASONE/SALMETEROL 250/50 (ADVAIR) 14 PUFF/1 INHALER INH SCH ×2 (08:31→20:28)
[2017-05-24] MEDS: PANTOprazole SOD 40 MG TAB PO SCH ×2 (08:31→20:31)
[2017-05-24] MEDS: NICOTINE 14 MG/24 HR TDSY TD SCH (08:32)
[2017-05-24 10:31] LABS: URINE APPEARANCE CLEAR (CLEAR); URINE BILIRUBIN NEG (NEG); URINE COLOR YELLOW; URINE NITRITE NEG (NEG); URINE PH 5.5 (4.5-7.5); URINE SPECIFIC GRAVITY 1.017 (1.000-1.030); UROBILINOGEN NEG (NEG)
[2017-05-24 10:32] LABS: MANUAL MICROSCOPIC REQUIRED? NO; REVIEW REQ? NO
[2017-05-24] MEDS: ACETAMINOPHEN 325 MG TAB PO PRN (12:42)
--- NOTE | 2017-05-24 16:02 | Progress Note ---
Medicine Progress Note Date & Time of Visit: May 24, 2017 at 09:44. Subjective Pt was seen and examined Lying in bed complaint of left hip pain Pt said that pain improved with pain med denies any chest pain, palpitation, dizziness and SOB Objective Last 8 Hrs Date Time Temp Pulse Resp B/P (MAP) Pulse Ox O2 Delivery O2 Flow Rate FiO2 05/24/17 12:00 Room Air 05/24/17 10:55 37.4 102 18 107/56 (73) 93 Room Air 05/24/17 08:00 Room Air Physical Exam: General- No acute distress Head- atraumatic Eyes- PERRL, EOMI ENT- oropharynx clear Neck- supple, no JVD Lungs- clear to auscultation Heart- tachycardia Abdomen- normal bowel sounds, soft Extremities- no calf tenderness Neuro- alert, oriented x 3; PERRL, EOMI Skin- warm & dry Laboratory Results: Last 24 Hours Test 05/23/17 21:09 05/24/17 05:47 05/24/17 06:49 05/24/17 10:00 White Blood Count 33.66 K/uL 16.86 K/uL Red Blood Count 3.60 M/uL 3.06 M/uL Hemoglobin 9.9 g/dL 8.1 g/dL Hematocrit 31.3 % 26.8 % Mean Corpuscular Volume 86.9 fL 87.6 fL Mean Corpuscular Hemoglobin 27.5 pg 26.5 pg Mean Corpuscular Hemoglobin Concent 31.6 g/dl 30.2 g/dl Platelet Count 634 K/uL 514 K/uL Neutrophils (%) (Auto) 82.3 % 70.1 % Lymphocytes (%) (Auto) 8.5 % 16.0 % Monocytes (%) (Auto) 4.6 % 6.9 % Eosinophils (%) (Auto) 2.3 % 4.3 % Basophils (%) (Auto) 1.0 % 2.0 % Neutrophils # (Auto) 27.69 K/uL 11.85 K/uL Lymphocytes # (Auto) 2.85 K/uL 2.69 K/uL Monocytes # (Auto) 1.56 K/uL 1.16 K/uL Eosinophils # (Auto) 0.79 K/uL 0.72 K/uL Basophils # (Auto) 0.33 K/uL 0.33 K/uL RDW Standard Deviation 110.5 fL 100.2 fL RDW Coefficient of Variation 32.5 % 32.5 % Immature Granulocyte % (Auto) 1.3 % 0.7 % Immature Granulocyte # (Auto) 0.44 K/uL 0.11 K/uL Nucleated RBC Absolute Count (auto) K/uL Nucleated Red Blood Cells % % Large Platelets 1+ Poikilocytosis PRESENT PRESENT Anisocytosis PRESENT PRESENT Prothrombin Time 11.1 SECONDS Prothromb Time International Ratio 1.0 Activated Partial Thromboplast Time 23.3 SECONDS Partial Thromboplastin Ratio 0.9 Sodium Level 139 mmol/L 140 mmol/L Potassium Level mmol/L 4.0 mmol/L Chloride Level 109 mmol/L 110 mmol/L Carbon Dioxide Level 23 mmol/L 25 mmol/L Anion Gap 7.0 mmol/L 5.0 mmol/L Blood Urea Nitrogen 21 mg/dl 21 mg/dl Creatinine 1.30 mg/dl 1.00 mg/dl Est Creatinine Clear Calc Drug Dose 28.8 ml/min 38.4 ml/min Estimated GFR () 46.8 64.3 Estimated GFR (Non- 40.4 55.5 BUN/Creatinine Ratio 16.4 21.0 Random Glucose 69 mg/dl 95 mg/dl Calcium Level 9.0 mg/dl 8.8 mg/dl Platelet Estimate INCREASED Hypochromasia PRESENT Target Cells 1+ Ovalocytes 1+ 25-Hydroxy Vitamin D Total 37.3 ng/ml Procalcitonin < 0.05 ng/ml Bedside Glucose 117 mg/dl Urine Color YELLOW Urine Appearance CLEAR Urine pH 5.5 Urine Specific Jamul 1.017 Urine Protein NEG Urine Glucose (UA) NEG Urine Ketones NEG Urine Occult Blood NEG Urine Nitrite NEG Urine Bilirubin NEG Urine Urobilinogen NEG Urine Leukocyte Esterase NEG Assessment & Plan LEFT FEMUR FRACTURE Secondary to mechanical fall. X-rays show periprosthetic fracture left proximal femur. Continue pain control Ortho on board, recommended no surgical intervention Non Weight bearing for 6 weeks fall precaution PT/OT eval POSSIBLE FRACTURE LEFT RADIAL HEAD Xray showed Probable nondisplaced cortical fracture radial neck Continue wearing splint Ortho on board PT/OT OSTEOPOROSIS Vit D WNL LEFT CHEST WALL PAIN Due to the fall No rib fracture on CXR Continue Incentive spirometry. LEUKOCYTOSIS WBC on admission 33,660. Possible realted to reactive Underlying MDS. Afebrile, no sign of infection WBC trending down to 16K today. Procalcitonin and UA negative MYELODYSPLASTIC SYNDROME Continue anagrelide and hydroxyurea. WBC trending down THROMBOCYTOSIS Chronic. Will restart clopidogrel COPD Incentive spirometry. Continue Advair + albuterol PRN. stable SMOKING Smoking cessation counseling. HISTORY PUD Continue PPI. VTE PROPHYLAXIS on SCDs Will start on heparin subq RESUSCITATION STATUS FULL CODE . Consultants: Ortho Current Inpatient Medications: Current Inpatient Medications Medications (Trade) Dose Ordered Sig/Pradip Route Start Time Stop Time Status Last Admin Dose Admin Acetaminophen (Tylenol Tab) 650 mg Q4H PRN PO 05/23/17 23:30 06/22/17 23:29 05/24/17 12:42 650 MG Albuterol (Ventolin Hfa Inhaler) 2 puffs Q6H PRN INH 05/23/17 23:30 06/22/17 23:29 Amitriptyline HCl (Elavil Tab) 75 mg HS PO 05/24/17 21:00 06/23/17 20:59 Salmeterol Xinafoate/ Fluticasone (Advair Diskus 250/50 Inh) 1 puff BID INH 05/24/17 09:00 06/23/17 08:59 05/24/17 08:31 1 PUFF Hydroxyurea (Hydrea Cap) 500 mg Q2D PO 05/25/17 09:00 06/24/17 08:59 Loratadine (Claritin Tab) 10 mg DAILY PRN PO 05/23/17 23:30 06/22/17 23:29 Nicotine (Nicoderm Cq 14MG Patch) 1 patch DAILY TD 05/24/17 09:00 06/23/17 08:59 05/24/17 08:32 1 PATCH Pantoprazole Sodium (Protonix Tab) 40 mg BID PO 05/24/17 09:00 06/23/17 08:59 05/24/17 08:31 40 MG Pregabalin (Lyrica Cap) 75 mg HS PO 05/24/17 21:00 06/23/17 20:59 Temazepam (Restoril Cap) 30 mg HS PRN PO 05/23/17 23:30 06/22/17 23:29 05/24/17 02:16 30 MG Miscellaneous Information (Order Awaiting Action) 1 ea QS N/A 05/24/17 08:00 06/23/17 07:59 Hydromorphone HCl (Dilaudid Inj) 0.5 mg Q2H PRN IV 05/23/17 23:30 06/06/17 23:29 05/24/17 12:36 0.5 MG Hydromorphone HCl (Dilaudid Inj) 1 mg Q2H PRN IV 05/24/17 00:30 06/07/17 00:29 Dextrose/Lactated Ringer's 1,000 ml @ 100 mls/hr Q10H IV 05/24/17 04:00 06/23/17 03:59 05/24/17 13:59 100 MLS/HR
[2017-05-24] MEDS: AMITRIPTYLINE HCL 50 MG TAB PO SCH (20:30)
[2017-05-24] MEDS: PREGABALIN 75 MG CAP PO SCH (20:33)
--- NOTE | 2017-05-24 23:02 | ORTHOPEDIC CONSULTATION ---
DATE OF CONSULTATION: 05/24/2017 HISTORY OF PRESENT ILLNESS: This is a 76-year-old female who is a patient of Dr. Valerie Chavez and Dr. Mainor Chavez who sustained a fall when she slipped down some steps yesterday when she was entering a restaurant. She struck her left elbow and her left thigh. She has a history of an uncomplicated left total hip arthroplasty performed by Dr. Omi Avendaño several years ago and was having no complaints of the hip prior to her fall. She then presented to [facility] for evaluation. She had radiographs of the left elbow and the left proximal femur. The patient was noted to have a possible periprosthetic fracture of the left hip and fracture of the left radial neck and noted to have multiple medical comorbidities and was then admitted to the Department of Medicine for orthopedic followup and care. PAST MEDICAL HISTORY: For anemia, myelodysplastic syndrome, COPD, history of breast cancer, essential thrombocythemia, history of MRSA infection, history of peptic ulcer disease. PAST SURGICAL HISTORY: 1. Left total hip arthroplasty performed by Dr. Omi Avendaño several years ago without complaint. 2. History of cholecystectomy, hysterectomy, mastectomy. ALLERGIES: LOBSTER WITH HIVES, LATEX WITH CONTACT DERMATITIS. ALLERGY TO METALS, PARTICULARLY GOLD, UNDER 14 CARROT GOLD, HAVE ITCHES AND HIVES. No known drug allergies. MEDICATIONS: Please refer to the list provided in the medical record. SOCIAL HISTORY: The patient smokes approximately 1 pack a day of cigarettes. Denies alcohol use. Denies drug use. . She lives with her family and she is retired. PHYSICAL EXAMINATION: GENERAL: This is a cachectic appearing 76-year-old female lying supine in the hospital room bed. EXTREMITIES: She has a sling in left upper extremity. No bruising of the face or head. Examination of the left upper extremity demonstrates slight bruising over the left radial neck and head and lateral aspect of left elbow. She has tenderness to palpation of the left radial neck and head. Negative varus and valgus stress testing. Limited active and passive range of motion due to pain and guarding of the left elbow. No crepitation of the left elbow. No firm block to supination or pronation. Radial, ulnar and median nerve sensory and motor function are intact. Radial pulses 2/4. Examination of the left hip demonstrates slight bruising over the left greater trochanter, moderate tenderness to palpation over the left proximal femur and left anterior groin. She has minor discomfort with active and passive range of motion of the left hip. There is no obvious crepitation, clicking, catching, and grinding in the left hip. Left hip as well reduced and the left acetabulum without any evidence of discordant motion. Dorsalis pedis and posterior pulses are 2/4 bilateral lower extremities. Well-healed surgical incision left hip. No significant ecchymosis. Well-healed scar of lateral hip. IMAGING DATA: 1. Radiographs reviewed demonstrate a nondisplaced left radial neck fracture. 2. Left minimally displaced proximal femoral periprosthetic fracture without any evidence of angulation or distraction at the fracture site. The components appear well fixed, both in the proximal femur and in the acetabulum. This one appears to be 2 screws that fixed the acetabular component in stable alignment. There is no evidence of osteolysis or loosening at the proximal acetabular component nor at the femoral component. Osteopenia is evident both in the pelvis and acetabular region as well as the proximal femoral region. LABORATORY DATA: Reviewed. IMPRESSION: 1. Left minimally displaced proximal femoral periprosthetic fracture. 2. Left minimally displaced radial neck fracture. 3. Multiple medical comorbidities and generalized poor health condition. 4. Chronic everyday tobacco user. RECOMMENDATIONS: In this particular case, would recommend a closed nonoperative treatment of the left proximal femoral periprosthetic fracture with 6 weeks of non-weightbearing left lower extremity with use of a walker or wheelchair. Due to the nature of the patient's left radial neck fracture which will also be treated conservatively nonoperatively, may pose the difficulty with any type of upright ambulation; therefore use of a wheelchair for 6 weeks is likely best alternative with the exception of use of a walker for simple turn pivot transfers from bed to chair and chair to bed. Ice to the affected areas as needed. DVT prophylaxis with SCDs and GRACIELA hose and swelling in the left upper extremity. The patient will follow up upon discharge for further radiographic and clinical followup as an outpatient with Dr. Adams. Thank you for the opportunity to consult in the care of this patient.
[2017-05-25 04:00] VITALS: BP 98/45; PULSE 101; TEMP 37.4; O2SAT 92
[2017-05-25] MEDS: HYDROmorphone INJ 1 MG/ML SYR IV PRN ×8 (06:04→22:13)
[2017-05-25 06:19] LABS: HEMATOCRIT 27.5 % (37-47); MEAN CELL VOLUME 88.4 fL (80-100); MEAN CORPUSCULAR HEMOGLOBIN 27.3 pg (25-34); MEAN CORPUSCULAR HGB CONC 30.9 g/dl (32-36); PLATELET COUNT 464 K/uL (130-400); RED BLOOD COUNT 3.11 M/uL (4.2-5.4); WHITE BLOOD COUNT 14.77 K/uL (4.8-10.8)
[2017-05-25 06:45] LABS: BUN/CREATININE RATIO 16.2 (10-20); CALCIUM 8.3 mg/dl (8.5-10.1); CREATININE 0.86 mg/dl (0.60-1.20); POTASSIUM 4.4 mmol/L (3.5-5.1)
[2017-05-25 07:32] VITALS: BP 106/68; PULSE 101; TEMP 37.2; O2SAT 91
[2017-05-25] MEDS: PANTOprazole SOD 40 MG TAB PO SCH ×2 (08:41→21:10)
[2017-05-25] MEDS: HYDROXYUREA 500 MG CAP PO SCH (08:42)
[2017-05-25] MEDS: FLUTICASONE/SALMETEROL 250/50 (ADVAIR) 14 PUFF/1 INHALER INH SCH ×2 (08:43→21:09)
[2017-05-25] MEDS: NICOTINE 14 MG/24 HR TDSY TD SCH (08:43)
[2017-05-25] MEDS: ANAGRELIDE 1 MG PO SCH ×2 (08:44→21:10)
--- NOTE | 2017-05-25 09:41 | Clinical Documentation Query ---
CLINICAL DOCUMENTATION QUERY QUERY 1 OF 2 A 76 yo female admitted for fractures stemming from a fall. In your clinical opinion is this patient being managed for: ( ) Pathological fractures, left femur and left radius ( ) Not Agree ( + ) Other explanation of clinical findings (Please Explain) ( ) Unable to determine (Please Define) ( ) Need to Discuss Mechanical fall with fracture The medical record reflects the following clinical findings, treatment, and risk factors. Clinical Indicators: Documented osteoporosis, previous fall with fx, home vitamin D supplement Treatment: Ortho consult, pain control Risk Factors: Age, osteoporosis, + smoker, previous fracture left hip QUERY 2 OF 2 A 76 yo female admitted with fractures of the femur and radius. BMI is 19.4 and Orthopedic documentation describes the patient as "cachectic appearing". In your clinical opinion is this patient being managed for: ( ) Cachexia ( + ) Not Agree Has malnutrition Please clarify and document your clinical opinion in the progress notes and discharge summary. Terms such as "probable", "suspected", "likely", "questionable", "possible", or "still to be ruled out" are acceptable. IF IN AGREEMENT, YOU MUST DOCUMENT ABOVE DIAGNOSTIC STATEMENT IN DAILY PROGRESS NOTES AND DISCHARGE SUMMARY. This document is not part of the patient's record. Thank You, Rona Rojas RN [phone]
[2017-05-25] MEDS: ACETAMINOPHEN 325 MG TAB PO PRN ×2 (10:53→21:19)
[2017-05-25 11:04] VITALS: BP 85/69; PULSE 99; TEMP 37.9; O2SAT 90
--- NOTE | 2017-05-25 13:29 | Progress Note ---
Medicine Progress Note Date & Time of Visit: May 25, 2017 at 13:15. Subjective Pt was seen and examined Lying in bed with no distress getting reading to eat lunch Pt said that continue to have pain in the left hip she agreed to go to rehab denies any chest pain, palpitation, dizziness and sob Objective Last 8 Hrs Date Time Temp Pulse Resp B/P (MAP) Pulse Ox O2 Delivery O2 Flow Rate FiO2 05/25/17 11:04 37.9 99 18 85/69 (74) 90 Room Air 05/25/17 07:32 37.2 101 24 106/68 (81) 91 Room Air Physical Exam: General- No acute distress Head- atraumatic Eyes- PERRL, EOMI ENT- oropharynx clear Neck- supple, no JVD Lungs- clear to auscultation Heart- tachycardia Abdomen- normal bowel sounds, soft Extremities- no calf tenderness, left hip tenderness Neuro- alert, oriented x 3; PERRL, EOMI Skin- warm & dry Laboratory Results: Last 24 Hours Test 05/25/17 05:44 White Blood Count 14.77 K/uL Red Blood Count 3.11 M/uL Hemoglobin 8.5 g/dL Hematocrit 27.5 % Mean Corpuscular Volume 88.4 fL Mean Corpuscular Hemoglobin 27.3 pg Mean Corpuscular Hemoglobin Concent 30.9 g/dl RDW Standard Deviation 103.2 fL RDW Coefficient of Variation 32.5 % Platelet Count 464 K/uL Nucleated RBC Absolute Count (auto) 0.05 K/uL Nucleated Red Blood Cells % 0.4 % Sodium Level 142 mmol/L Potassium Level 4.4 mmol/L Chloride Level 112 mmol/L Carbon Dioxide Level 24 mmol/L Anion Gap 6.0 mmol/L Blood Urea Nitrogen 14 mg/dl Creatinine 0.86 mg/dl Est Creatinine Clear Calc Drug Dose 46.5 ml/min Estimated GFR () 77.1 Estimated GFR (Non- 66.6 BUN/Creatinine Ratio 16.2 Random Glucose 89 mg/dl Calcium Level 8.3 mg/dl Assessment & Plan LEFT FEMUR FRACTURE Secondary to mechanical fall. X-rays show periprosthetic fracture left proximal femur. Continue pain control Ortho on board, recommended no surgical intervention Non-weightbearing for 6 weeks in left lower extremity with use of a walker or wheelchair. fall precaution PT/OT eval Waiting for placement to rehab FRACTURE LEFT RADIAL NECK Xray showed Probable nondisplaced cortical fracture radial neck Continue wearing splint Ortho on board, recommended conservative management Pain control PT/OT HYPOTENSION has a low urine output will give 1 L NS continue monitor BP ANEMIA Hgb 8.5 today continue monitor cbc OSTEOPOROSIS Vit D WNL LEFT CHEST WALL PAIN Due to the fall No rib fracture on CXR Continue Incentive spirometry. QUESTIONABLE LUNG MASS CXR updated report is probable related to her right breast implant Will need to review old outpatient CXR for comparison LEUKOCYTOSIS WBC on admission 33,660. Possible realted to reactive Underlying MDS. Afebrile, no sign of infection WBC trending down to 16K today. Procalcitonin and UA negative 05/25 WBC trending to 14K Had a low grade fever this morning UA on admission negative If fever continue, will get blood cx Continue monitor MYELODYSPLASTIC SYNDROME Continue anagrelide and hydroxyurea. WBC trending down ANXIETY Will add ativan prn THROMBOCYTOSIS Chronic. Resume clopidogrel COPD Incentive spirometry. Continue Advair + albuterol PRN. stable SMOKING Smoking cessation counseling. Continue nicotine patch HISTORY PUD Continue PPI. VTE PROPHYLAXIS on SCDs on heparin subq RESUSCITATION STATUS FULL CODE . Consultants: Ortho Current Inpatient Medications: Current Inpatient Medications Medications (Trade) Dose Ordered Sig/Pradip Route Start Time Stop Time Status Last Admin Dose Admin Acetaminophen (Tylenol Tab) 650 mg Q4H PRN PO 05/23/17 23:30 06/22/17 23:29 05/25/17 10:53 650 MG Albuterol (Ventolin Hfa Inhaler) 2 puffs Q6H PRN INH 05/23/17 23:30 06/22/17 23:29 05/24/17 20:29 2 PUFFS Amitriptyline HCl (Elavil Tab) 75 mg HS PO 05/24/17 21:00 06/23/17 20:59 05/24/17 20:30 75 MG Salmeterol Xinafoate/ Fluticasone (Advair Diskus 250/50 Inh) 1 puff BID INH 05/24/17 09:00 06/23/17 08:59 05/25/17 08:43 1 PUFF Hydroxyurea (Hydrea Cap) 500 mg Q2D PO 05/25/17 09:00 06/24/17 08:59 05/25/17 08:42 500 MG Loratadine (Claritin Tab) 10 mg DAILY PRN PO 05/23/17 23:30 06/22/17 23:29 Nicotine (Nicoderm Cq 14MG Patch) 1 patch DAILY TD 05/24/17 09:00 06/23/17 08:59 05/25/17 08:43 1 PATCH Pantoprazole Sodium (Protonix Tab) 40 mg BID PO 05/24/17 09:00 06/23/17 08:59 05/25/17 08:41 40 MG Pregabalin (Lyrica Cap) 75 mg HS PO 05/24/17 21:00 06/23/17 20:59 05/24/17 20:33 75 MG Temazepam (Restoril Cap) 30 mg HS PRN PO 05/23/17 23:30 06/22/17 23:29 05/24/17 20:41 30 MG Hydromorphone HCl (Dilaudid Inj) 0.5 mg Q2H PRN IV 05/23/17 23:30 06/06/17 23:29 05/24/17 20:28 0.5 MG Hydromorphone HCl (Dilaudid Inj) 1 mg Q2H PRN IV 05/24/17 00:30 06/07/17 00:29 05/25/17 13:12 1 MG Anagrelide HCl (Agrylin) 1 mg BID PO 05/25/17 09:00 06/24/17 08:59 05/25/17 08:44 1 MG
[2017-05-25] MEDS ORDERED: SODIUM CHLORIDE 0.9% 1000ML 1,000 ML IV SCH (13:45)
[2017-05-25] MEDS: LORAZEPAM 0.5 MG TAB PO PRN (15:10)
[2017-05-25 15:13] VITALS: BP 82/52; PULSE 106; TEMP 37.4; O2SAT 92
[2017-05-25 19:46] VITALS: BP 111/53; PULSE 100; TEMP 37.4; O2SAT 94
[2017-05-25] MEDS: HEPARIN SOD 5000 UNIT/0.5 ML CARP SQ SCH (21:00)
[2017-05-25] MEDS: AMITRIPTYLINE HCL 50 MG TAB PO SCH (21:10)
[2017-05-25] MEDS: PREGABALIN 75 MG CAP PO SCH (21:19)
[2017-05-25] MEDS: TEMAZEPAM 15 MG CAP PO PRN (21:19)
[2017-05-25 23:55] VITALS: BP 109/50; PULSE 112; TEMP 37.2; O2SAT 90
[2017-05-26] VITALS (15 sets, daily range): BP systolic 106–155; BP diastolic 45–63; PULSE 95–112; TEMP 37–37.7; O2SAT 87–95
--- NOTE | 2017-05-26 06:06 | Clinical Documentation Query ---
CLINICAL DOCUMENTATION QUERY QUERY 1 OF 2 A 76 yo female admitted for fractures stemming from a fall. In your clinical opinion is this patient being managed for: ( ) Pathological fractures, left femur and left radius ( ) Not Agree ( ) Other explanation of clinical findings (Please Explain) ( ) Unable to determine (Please Define) ( ) Need to Discuss The medical record reflects the following clinical findings, treatment, and risk factors. Clinical Indicators: Documented osteoporosis, previous fall with fx, home vitamin D supplement Treatment: Ortho consult, pain control Risk Factors: Age, osteoporosis, + smoker, previous fracture left hip QUERY 2 OF 2 A 76 yo female admitted with fractures of the femur and radius. BMI is 19.4 and orthopedic documentation describes the patient as "cachectic appearing". In your clinical opinion is this patient being managed for: ( ) Cachexia ( ) Not Agree Please clarify and document your clinical opinion in the progress notes and discharge summary. Terms such as "probable", "suspected", "likely", "questionable", "possible", or "still to be ruled out" are acceptable. IF IN AGREEMENT, YOU MUST DOCUMENT ABOVE DIAGNOSTIC STATEMENT IN DAILY PROGRESS NOTES AND DISCHARGE SUMMARY. This document is not part of the patient's record. Thank You, Rona Rojas RN [phone]
[2017-05-26 07:52] LABS: HEMATOCRIT 23.3 % (37-47); MEAN CELL VOLUME 88.3 fL (80-100); MEAN CORPUSCULAR HEMOGLOBIN 27.7 pg (25-34); MEAN CORPUSCULAR HGB CONC 31.3 g/dl (32-36); PLATELET COUNT 415 K/uL (130-400); RED BLOOD COUNT 2.64 M/uL (4.2-5.4); WHITE BLOOD COUNT 15.41 K/uL (4.8-10.8)
[2017-05-26] MEDS: FLUTICASONE/SALMETEROL 250/50 (ADVAIR) 14 PUFF/1 INHALER INH SCH ×2 (08:53→21:15)
[2017-05-26] MEDS: NICOTINE 14 MG/24 HR TDSY TD SCH (08:54)
[2017-05-26] MEDS: PANTOprazole SOD 40 MG TAB PO SCH ×2 (08:54→21:17)
[2017-05-26] MEDS: CLOPIDOGREL BISULFATE 75 MG TAB PO SCH (08:54)
[2017-05-26] MEDS: ANAGRELIDE 1 MG PO SCH ×2 (08:55→21:15)
[2017-05-26] MEDS: HEPARIN SOD 5000 UNIT/0.5 ML CARP SQ SCH ×2 (08:58→21:00)
[2017-05-26] MEDS: HYDROmorphone INJ 1 MG/ML SYR IV PRN ×3 (09:57→21:07)
--- NOTE | 2017-05-26 11:37 | Progress Note ---
Internal Med Progress Note Date of Service: May 26, 2017. Provider Documentation: SUBJECTIVE: The patient was seen and examined Complains of some pain in leg and left UE which is in a sling Denies any other symptoms OBJECTIVE: Vital Signs-as noted below Exam: General-NO distress at rest Eyes-normal ENT-normal Neck-supple Lungs-Clear to ausucltate bilaterally Heart-Regular ,no murmur Abdomen-Benign,no masses,bowel sound present Extremities-NO edema Neuro-AAOx3 NO focal neuro deficit Lab data as noted below. ASSESSMENT & PLAN: LEFT FEMUR FRACTURE Secondary to mechanical fall. X-rays show periprosthetic fracture left proximal femur. Ortho on board, recommended no surgical intervention Non-weightbearing for 6 weeks in left lower extremity with use of a walker or wheelchair. PT/OT eval Waiting for placement to rehab FRACTURE LEFT RADIAL NECK Xray showed Probable nondisplaced cortical fracture radial neck Continue wearing splint Ortho on board, recommended conservative management Pain control PT/OT HYPOTENSION-resolved Has a low urine output Got 1 liter of NS BP is maintained Can be moved to medical floor ANEMIA Has H/O MDS Acute Blood Loss Anemia Hb dropped to 7.3 Will transfuse 1 unit OSTEOPOROSIS Vit D WNL Will need to take Vit D Supplement LEFT CHEST WALL PAIN Due to the fall No rib fracture on CXR Continue Incentive spirometry. QUESTIONABLE LUNG MASS CXR updated report is probable related to her right breast implant Will need to review old outpatient CXR for comparison H/O Right Breast prosthesis Addendum done LEUKOCYTOSIS WBC on admission 33,660. Possible related to reactive Underlying MDS. Afebrile, no sign of infection WBC trending down to 16K today. Procalcitonin and UA negative Doubt any infection MYELODYSPLASTIC SYNDROME Continue anagrelide and hydroxyurea. WBC trending down ANXIETY Will add ativan prn THROMBOCYTOSIS Chronic. Resume clopidogrel COPD Incentive spirometry. Continue Advair + albuterol PRN. stable SMOKING Smoking cessation counseling. Continue nicotine patch HISTORY PUD Continue PPI. VTE PROPHYLAXIS on SCDs on heparin subq RESUSCITATION STATUS FULL CODE . Consultants: Ortho Can be transferred to [place] Vital Signs: Date Time Temp Pulse Resp B/P (MAP) Pulse Ox O2 Delivery O2 Flow Rate FiO2 05/26/17 08:08 37.3 101 23 117/51 (73) 91 Room Air 05/26/17 08:00 Room Air 05/26/17 04:00 Room Air 05/26/17 03:57 37.0 103 21 106/45 (65) 92 Room Air 05/25/17 23:59 Room Air 05/25/17 23:55 37.2 112 20 109/50 (69) 90 Room Air 05/25/17 20:00 Room Air 05/25/17 19:46 37.4 100 18 111/53 (72) 94 Room Air 05/25/17 16:00 Room Air 05/25/17 15:13 37.4 106 20 82/52 (62) 92 Room Air 05/25/17 12:00 Room Air Lab Results: Results Past 24 Hours Test 05/26/17 07:13 Range/Units White Blood Count 15.41 4.8-10.8 K/uL Red Blood Count 2.64 4.2-5.4 M/uL Hemoglobin 7.3 12.0-16.0 g/dL Hematocrit 23.3 37-47 % Mean Corpuscular Volume 88.3 80-100 fL Mean Corpuscular Hemoglobin 27.7 25-34 pg Mean Corpuscular Hemoglobin Concent 31.3 32-36 g/dl RDW Standard Deviation 101.2 36.4-46.3 fL RDW Coefficient of Variation 32.2 11.5-14.5 % Platelet Count 415 130-400 K/uL Nucleated RBC Absolute Count (auto) 0.03 0-0 K/uL Nucleated Red Blood Cells % 0.2 %
[2017-05-26] MEDS: OXYCODONE/ACETAMINOPHEN 5-325 TAB PO PRN ×3 (12:26→23:37)
[2017-05-26] MEDS ORDERED: POLYETHYLENE (MIRALAX) 17 GM PACK PO ONE (12:45)
[2017-05-26] MEDS: HYDROmorphone INJ 0.5 MG/0.5 ML SYR IV PRN (14:30)
[2017-05-26] MEDS ORDERED: FUROSEMIDE INJ 20 MG in SYRINGE 0 ML IV ONE (19:00)
[2017-05-26] MEDS: PREGABALIN 75 MG CAP PO SCH (21:14)
[2017-05-26] MEDS: TEMAZEPAM 15 MG CAP PO PRN (21:14)
[2017-05-26] MEDS: AMITRIPTYLINE HCL 50 MG TAB PO SCH (21:16)
[2017-05-27] VITALS (11 sets, daily range): BP systolic 105–128; BP diastolic 50–69; PULSE 85–120; TEMP 36.6–37.2; O2SAT 88–97
[2017-05-27] MEDS: OXYCODONE/ACETAMINOPHEN 5-325 TAB PO PRN ×5 (06:11→22:16)
[2017-05-27 07:17] LABS: HEMATOCRIT 30.5 % (37-47); MEAN CELL VOLUME 86.2 fL (80-100); MEAN CORPUSCULAR HEMOGLOBIN 27.7 pg (25-34); MEAN CORPUSCULAR HGB CONC 32.1 g/dl (32-36); PLATELET COUNT 446 K/uL (130-400); RED BLOOD COUNT 3.54 M/uL (4.2-5.4); WHITE BLOOD COUNT 13.97 K/uL (4.8-10.8)
[2017-05-27 07:45] LABS: CREATININE 0.89 mg/dl (0.60-1.20); POTASSIUM 3.9 mmol/L (3.5-5.1)
[2017-05-27 07:46] LABS: PHOSPHORUS 3.9 mg/dl (2.5-4.9)
[2017-05-27] MEDS: HYDROmorphone INJ 0.5 MG/0.5 ML SYR IV PRN (08:14)
[2017-05-27] MEDS: CLOPIDOGREL BISULFATE 75 MG TAB PO SCH (08:15)
[2017-05-27] MEDS: FLUTICASONE/SALMETEROL 250/50 (ADVAIR) 14 PUFF/1 INHALER INH SCH ×2 (08:15→21:07)
[2017-05-27] MEDS: NICOTINE 14 MG/24 HR TDSY TD SCH (08:20)
[2017-05-27] MEDS: HYDROXYUREA 500 MG CAP PO SCH (08:20)
[2017-05-27] MEDS: POLYETHYLENE (MIRALAX) 17 GM PACK PO SCH (08:21)
[2017-05-27] MEDS: PANTOprazole SOD 40 MG TAB PO SCH ×2 (08:21→21:09)
[2017-05-27] MEDS: HEPARIN SOD 5000 UNIT/0.5 ML CARP SQ SCH ×2 (08:21→21:00)
[2017-05-27] MEDS: ANAGRELIDE 1 MG PO SCH ×2 (08:21→21:08)
[2017-05-27] MEDS ORDERED: TRAMADOL HCL 50 MG TAB PO STA (10:16)
[2017-05-27] MEDS: LORAZEPAM 0.5 MG TAB PO PRN ×2 (10:55→22:38)
--- NOTE | 2017-05-27 15:12 | Progress Note ---
Internal Med Progress Note Date of Service: May 27, 2017. Provider Documentation: SUBJECTIVE: The patient was seen and examined Complains of some pain in leg and left UE which is in a sling Pain is worse today and asking for more pain medications OBJECTIVE: Vital Signs-as noted below Exam: General-NO distress at rest Eyes-normal ENT-normal Neck-supple Lungs-Clear to ausucltate bilaterally Heart-Regular ,no murmur Abdomen-Benign,no masses,bowel sound present Extremities-NO edema Neuro-AAOx3 NO focal neuro deficit Lab data as noted below. ASSESSMENT & PLAN: LEFT FEMUR FRACTURE Secondary to mechanical fall. X-rays show periprosthetic fracture left proximal femur. Ortho on board, recommended no surgical intervention Non-weightbearing for 6 weeks in left lower extremity with use of a walker or wheelchair. PT/OT eval Waiting for placement to rehab Increase in pain Will add Tramadol to Percocet FRACTURE LEFT RADIAL NECK Xray showed Probable nondisplaced cortical fracture radial neck Continue wearing splint Ortho on board, recommended conservative management Pain control-requiring more pain medications PT/OT HYPOTENSION-resolved Has a low urine output Got 1 liter of NS BP is maintained Can be moved to medical floor ANEMIA Has H/O MDS Acute Blood Loss Anemia Hb dropped to 7.3 Has had 2 units of PRBC Hg >9 on 05/27/17 OSTEOPOROSIS Vit D WNL Will need to take Vit D Supplement LEFT CHEST WALL PAIN Due to the fall No rib fracture on CXR Continue Incentive spirometry. QUESTIONABLE LUNG MASS CXR updated report is probable related to her right breast implant Will need to review old outpatient CXR for comparison H/O Right Breast prosthesis Addendum noted -no further tests now LEUKOCYTOSIS WBC on admission 33,660. Possible related to reactive Underlying MDS. Afebrile, no sign of infection WBC trending down to 16K today. Procalcitonin and UA negative Doubt any infection-resolved MYELODYSPLASTIC SYNDROME Continue anagrelide and hydroxyurea. WBC trending down ANXIETY Will add ativan prn THROMBOCYTOSIS Chronic. Resume clopidogrel COPD Incentive spirometry. Continue Advair + albuterol PRN. stable SMOKING Smoking cessation counseling. Continue nicotine patch HISTORY PUD Continue PPI. VTE PROPHYLAXIS on SCDs on heparin subq Can have aspirin as DVT prophylaxis-discussed with the Ortho RESUSCITATION STATUS FULL CODE . Consultants: Ortho Can be transferred to [place] Vital Signs: Date Time Temp Pulse Resp B/P (MAP) Pulse Ox O2 Delivery O2 Flow Rate FiO2 05/27/17 11:32 37.0 99 25 110/50 (70) 90 Room Air 05/27/17 11:27 37.0 97 14 114/62 (79) 91 Room Air 05/27/17 10:30 36.7 105 20 92 3.0 05/27/17 08:00 36.7 105 20 116/54 (74) 92 Nasal Cannula 3.0 05/27/17 08:00 92 Nasal Cannula 3.0 05/27/17 04:04 36.9 101 24 105/53 (70) 93 05/27/17 04:00 93 Nasal Cannula 2.0 05/27/17 00:03 37.2 120 16 118/62 (80) 91 05/27/17 00:01 88 Room Air 05/27/17 00:01 93 Nasal Cannula 2.0 05/26/17 20:00 Room Air 05/26/17 19:41 37.1 95 18 138/58 (84) 95 Room Air 05/26/17 19:00 96 14 148/63 90 05/26/17 18:00 37.3 97 22 136/59 90 05/26/17 17:45 99 15 155/62 05/26/17 17:30 98 17 122/59 93 05/26/17 17:20 37.1 98 18 114/62 91 05/26/17 16:48 37.0 97 17 137/60 89 05/26/17 16:00 37.2 98 21 123/53 (76) 90 Room Air 05/26/17 16:00 91 Room Air 05/26/17 16:00 98 21 123/53 05/26/17 15:47 37.1 05/26/17 15:29 37.3 101 16 122/51 90 Lab Results: Results Past 24 Hours Test 05/27/17 06:02 Range/Units White Blood Count 13.97 4.8-10.8 K/uL Red Blood Count 3.54 4.2-5.4 M/uL Hemoglobin 9.8 12.0-16.0 g/dL Hematocrit 30.5 37-47 % Mean Corpuscular Volume 86.2 80-100 fL Mean Corpuscular Hemoglobin 27.7 25-34 pg Mean Corpuscular Hemoglobin Concent 32.1 32-36 g/dl RDW Standard Deviation 84.0 36.4-46.3 fL RDW Coefficient of Variation 28.0 11.5-14.5 % Platelet Count 446 130-400 K/uL Sodium Level 142 136-145 mmol/L Potassium Level 3.9 3.5-5.1 mmol/L Chloride Level 110 98-107 mmol/L Carbon Dioxide Level 24 21-32 mmol/L Anion Gap 8.0 3-11 mmol/L Blood Urea Nitrogen 13 7-18 mg/dl Creatinine 0.89 0.60-1.20 mg/dl Est Creatinine Clear Calc Drug Dose 45.1 ml/min Estimated GFR () 74.0 Estimated GFR (Non- 63.8 BUN/Creatinine Ratio 14.0 10-20 Random Glucose 102 70-99 mg/dl Calcium Level 8.0 8.5-10.1 mg/dl Phosphorus Level 3.9 2.5-4.9 mg/dl Magnesium Level 2.0 1.8-2.4 mg/dl
[2017-05-27] MEDS: TRAMADOL HCL 50 MG TAB PO PRN ×2 (16:30→22:42)
[2017-05-27] MEDS: AMITRIPTYLINE HCL 50 MG TAB PO SCH (21:09)
[2017-05-27] MEDS: PREGABALIN 75 MG CAP PO SCH (21:13)
[2017-05-27] MEDS: TEMAZEPAM 15 MG CAP PO PRN (23:57)
[2017-05-28 07:44] VITALS: BP 124/69; PULSE 100; TEMP 37.2; O2SAT 90
[2017-05-28] MEDS: OXYCODONE/ACETAMINOPHEN 5-325 TAB PO PRN ×2 (08:12→16:01)
[2017-05-28] MEDS: FLUTICASONE/SALMETEROL 250/50 (ADVAIR) 14 PUFF/1 INHALER INH SCH ×2 (08:13→21:02)
[2017-05-28] MEDS: ANAGRELIDE 1 MG PO SCH ×2 (09:00→21:02)
[2017-05-28] MEDS: HEPARIN SOD 5000 UNIT/0.5 ML CARP SQ SCH ×2 (09:00→21:00)
[2017-05-28] MEDS: POLYETHYLENE (MIRALAX) 17 GM PACK PO SCH (09:43)
[2017-05-28] MEDS: NICOTINE 14 MG/24 HR TDSY TD SCH (09:44)
[2017-05-28] MEDS: CLOPIDOGREL BISULFATE 75 MG TAB PO SCH (09:44)
[2017-05-28] MEDS: PANTOprazole SOD 40 MG TAB PO SCH ×2 (09:44→21:02)
[2017-05-28] MEDS: TRAMADOL HCL 50 MG TAB PO PRN ×2 (12:20→21:03)
--- NOTE | 2017-05-28 13:24 | Orthopedic Progress Note ---
Orthopedic Progress Note Date of Service May 28, 2017. Subjective Denies: chest pain, SOB, nausea / vomiting, light headedness, calf pain Additional Notes: Minimal left proximal femoral pain, minimal left elbow pain. Limited AROM left elbow and left hip due to mild pain. Tolerating sling well. Skin W/D/I at elbow and left hip/femur. Leg lengths equal, No calf pain. DNVSI. Objective calves soft nontender, N/V intact, hip located, capillary refill less than 2 sec., A&O x3, toes mobile As Noted Above. DNVSI B LE and B UE. Date Time Temp Pulse Resp B/P (MAP) Pulse Ox O2 Delivery O2 Flow Rate FiO2 05/28/17 08:10 Room Air 05/28/17 07:44 37.2 100 17 124/69 (87) 90 Room Air 05/27/17 23:50 Room Air 05/27/17 23:39 36.9 115 16 128/69 (88) 90 Room Air 05/27/17 15:46 36.6 85 17 115/66 (82) 97 Nasal Cannula 2.0 05/27/17 15:00 91 Room Air Assessment & Plan Assessment: Left minimally displaced proximal femoral periprosthetic fracture Left Radial neck minimally displaced fracture Plan: Nonoperative treatment Left Proximal femoral fracture Nonoperative treatment of Left Radial Neck fracture NWB L LE FOR 6 WEEKS NWB L ELBOW FOR 3-4 WEEKS MAY USE PLATFORM WALKER FOR TRANSFERS ONLY UNTIL LEFT ELBOW CLEARED RADIOGRAPHICALLY IN 3-4 WEEKS
--- NOTE | 2017-05-28 14:04 | Progress Note ---
Internal Med Progress Note Date of Service: May 28, 2017. Provider Documentation: SUBJECTIVE: The patient was seen and examined Complains of some pain in leg and left UE which is in a sling Pain is worse today and asking for more pain medications -05/27 Pain is controlled today ,generally weak but denies any other symptoms OBJECTIVE: Vital Signs-as noted below Exam: General-NO distress at rest Eyes-normal ENT-normal Neck-supple Lungs-Clear to ausucltate bilaterally Heart-Regular ,no murmur Abdomen-Benign,no masses,bowel sound present Extremities-NO edema Neuro-AAOx3 NO focal neuro deficit Lab data as noted below. ASSESSMENT & PLAN: LEFT FEMUR FRACTURE Secondary to mechanical fall. X-rays show periprosthetic fracture left proximal femur. Ortho on board, recommended no surgical intervention Non-weightbearing for 6 weeks in left lower extremity with use of a walker or wheelchair. PT/OT eval ongoing Waiting for placement to rehab Increase in pain Will add Tramadol to Percocet -pain is controlled Non weight bearing as per ortho FRACTURE LEFT RADIAL NECK Xray showed Probable nondisplaced cortical fracture radial neck Continue wearing splint Ortho on board, recommended conservative management Pain control-requiring more pain medications PT/OT HYPOTENSION-resolved Has a low urine output Got 1 liter of NS BP is maintained Can be moved to medical floor ANEMIA Has H/O MDS Acute Blood Loss Anemia Hb dropped to 7.3 Has had 2 units of PRBC Hg >9 on 05/27/17 OSTEOPOROSIS Vit D WNL Will need to take Vit D Supplement LEFT CHEST WALL PAIN Due to the fall No rib fracture on CXR Continue Incentive spirometry. QUESTIONABLE LUNG MASS CXR updated report is probable related to her right breast implant Will need to review old outpatient CXR for comparison H/O Right Breast prosthesis Addendum noted -no further tests now LEUKOCYTOSIS WBC on admission 33,660. Possible related to reactive Underlying MDS. Afebrile, no sign of infection WBC trending down to 16K today. Procalcitonin and UA negative Doubt any infection-resolved MYELODYSPLASTIC SYNDROME Continue anagrelide and hydroxyurea. WBC trending down ANXIETY Will add ativan prn THROMBOCYTOSIS Chronic. Resume clopidogrel COPD Incentive spirometry. Continue Advair + albuterol PRN. stable SMOKING Smoking cessation counseling. Continue nicotine patch HISTORY PUD Continue PPI. VTE PROPHYLAXIS on SCDs on heparin subq Can have aspirin as DVT prophylaxis-discussed with the Ortho RESUSCITATION STATUS FULL CODE . Consultants: Ortho Can be transferred to [place] Likely to be discharged tomorrow Vital Signs: Date Time Temp Pulse Resp B/P (MAP) Pulse Ox O2 Delivery O2 Flow Rate FiO2 05/28/17 08:10 Room Air 05/28/17 07:44 37.2 100 17 124/69 (87) 90 Room Air 05/27/17 23:50 Room Air 05/27/17 23:39 36.9 115 16 128/69 (88) 90 Room Air 05/27/17 15:46 36.6 85 17 115/66 (82) 97 Nasal Cannula 2.0 05/27/17 15:00 91 Room Air
[2017-05-28 14:57] VITALS: BP 118/69; PULSE 95; TEMP 37; O2SAT 92
[2017-05-28] MEDS: LORAZEPAM 0.5 MG TAB PO PRN (17:23)
[2017-05-28] MEDS: PREGABALIN 75 MG CAP PO SCH (21:02)
[2017-05-28] MEDS: AMITRIPTYLINE HCL 50 MG TAB PO SCH (21:02)
[2017-05-28] MEDS: TEMAZEPAM 15 MG CAP PO PRN (21:02)
[2017-05-28 23:21] VITALS: BP 117/66; PULSE 107; TEMP 37; O2SAT 91
[2017-05-29] MEDS: TRAMADOL HCL 50 MG TAB PO PRN ×3 (06:00→21:07)
[2017-05-29 07:37] VITALS: BP 104/62; PULSE 82; TEMP 36.9; O2SAT 93
[2017-05-29] MEDS: FLUTICASONE/SALMETEROL 250/50 (ADVAIR) 14 PUFF/1 INHALER INH SCH ×2 (09:06→21:07)
[2017-05-29] MEDS: ANAGRELIDE 1 MG PO SCH ×2 (09:07→21:09)
[2017-05-29] MEDS: HYDROXYUREA 500 MG CAP PO SCH (09:10)
[2017-05-29] MEDS: PANTOprazole SOD 40 MG TAB PO SCH ×2 (09:11→21:09)
[2017-05-29] MEDS: POLYETHYLENE (MIRALAX) 17 GM PACK PO SCH (09:11)
[2017-05-29] MEDS: HEPARIN SOD 5000 UNIT/0.5 ML CARP SQ SCH ×2 (09:11→09:19)
[2017-05-29] MEDS: CLOPIDOGREL BISULFATE 75 MG TAB PO SCH (09:11)
[2017-05-29] MEDS: LORAZEPAM 0.5 MG TAB PO PRN ×2 (09:12→21:19)
[2017-05-29] MEDS: NICOTINE 14 MG/24 HR TDSY TD SCH (09:12)
[2017-05-29 10:09] VITALS: BP_SYST 104; BP_SYST 98; BP_DIAS 61; BP_DIAS 62; PULSE 82; PULSE 96; TEMP 36.9; O2SAT 93
[2017-05-29] MEDS ORDERED: BISACODYL 10 MG SUPP PR ONE (10:30)
[2017-05-29] MEDS: HYDROmorphone INJ 1 MG/ML SYR IV PRN (11:40)
--- NOTE | 2017-05-29 13:33 | Progress Note ---
Internal Med Progress Note Date of Service: May 29, 2017. Provider Documentation: SUBJECTIVE: The patient was seen and examined Complains of some pain in leg and left UE which is in a sling Pain is worse today and asking for more pain medications -05/27 Pain medication adjusted Denies any other symptoms OBJECTIVE: Vital Signs-as noted below Exam: General-No distress at rest Eyes-normal ENT-normal Neck-supple Lungs-Clear to ausucltate bilaterally Heart-Regular ,no murmur Abdomen-Benign,no masses,bowel sound present Extremities-NO edema Neuro-AAOx3 NO focal neuro deficit Lab data as noted below. ASSESSMENT & PLAN: LEFT FEMUR FRACTURE Secondary to mechanical fall. X-rays show periprosthetic fracture left proximal femur. Ortho on board, recommended no surgical intervention Non-weightbearing for 6 weeks in left lower extremity with use of a walker or wheelchair. PT/OT eval ongoing Pain medication adjusted FRACTURE LEFT RADIAL NECK Xray showed Probable nondisplaced cortical fracture radial neck Continue wearing splint Ortho on board, recommended conservative management Pain control-requiring more pain medications PT/OT Appreciate Ortho HYPOTENSION-resolved Has a low urine output Got 1 liter of NS BP is maintained Can be moved to medical floor ANEMIA Has H/O MDS Acute Blood Loss Anemia Hb dropped to 7.3 Has had 2 units of PRBC Hg >9 on 05/27/17 OSTEOPOROSIS Vit D WNL Will need to take Vit D Supplement LEFT CHEST WALL PAIN Due to the fall No rib fracture on CXR Continue Incentive spirometry. QUESTIONABLE LUNG MASS CXR updated report is probable related to her right breast implant Will need to review old outpatient CXR for comparison H/O Right Breast prosthesis Addendum noted -no further tests needed LEUKOCYTOSIS-resolved WBC on admission 33,660. Possible related to reactive Underlying MDS. Afebrile, no sign of infection WBC trending down to 16K today. Procalcitonin and UA negative Doubt any infection-resolved MYELODYSPLASTIC SYNDROME Continue anagrelide and hydroxyurea. WBC trending down ANXIETY Will add ativan prn THROMBOCYTOSIS Chronic. Resume clopidogrel COPD Incentive spirometry. Continue Advair + albuterol PRN. No acute issue SMOKING Smoking cessation counseling. Continue nicotine patch HISTORY PUD Continue PPI. VTE PROPHYLAXIS on SCDs on heparin subq Can have aspirin as DVT prophylaxis-discussed with the Ortho RESUSCITATION STATUS FULL CODE . Consultants: Ortho Can be transferred to [place] Discharge when approved Vital Signs: Date Time Temp Pulse Resp B/P (MAP) Pulse Ox O2 Delivery O2 Flow Rate FiO2 05/29/17 10:09 36.9 82 17 93 Room Air 05/29/17 09:22 Room Air 05/29/17 07:37 36.9 82 17 104/62 (76) 93 Room Air 05/28/17 23:30 Room Air 05/28/17 23:21 37.0 107 16 117/66 (83) 91 Room Air 05/28/17 15:55 Room Air 05/28/17 14:57 37.0 95 18 118/69 (85) 92 Room Air
[2017-05-29] MEDS: LORATADINE 10 MG TAB PO PRN (14:08)
[2017-05-29 15:43] VITALS: BP 114/62; PULSE 100; TEMP 37.2; O2SAT 91
[2017-05-29] MEDS: OXYCODONE/ACETAMINOPHEN 5-325 TAB PO PRN ×2 (16:00→22:21)
[2017-05-29] MEDS: AMITRIPTYLINE HCL 50 MG TAB PO SCH (21:08)
[2017-05-29] MEDS: PREGABALIN 75 MG CAP PO SCH (21:10)
[2017-05-29] MEDS: TEMAZEPAM 15 MG CAP PO PRN (21:59)
[2017-05-29 23:23] VITALS: BP 90/59; PULSE 115; TEMP 37.2; O2SAT 91
[2017-05-29 23:45] VITALS: BP 97/63; PULSE 108
[2017-05-30] MEDS: OXYCODONE/ACETAMINOPHEN 5-325 TAB PO PRN ×2 (05:33→13:36)
[2017-05-30 07:29] VITALS: BP 98/61; PULSE 96; TEMP 36.9; O2SAT 85
[2017-05-30 07:30] VITALS: O2SAT 92
[2017-05-30] MEDS: POLYETHYLENE (MIRALAX) 17 GM PACK PO SCH (09:00)
[2017-05-30] MEDS: HEPARIN SOD 5000 UNIT/0.5 ML CARP SQ SCH (09:00)
[2017-05-30] MEDS: PANTOprazole SOD 40 MG TAB PO SCH (09:18)
[2017-05-30] MEDS: CLOPIDOGREL BISULFATE 75 MG TAB PO SCH (09:18)
[2017-05-30] MEDS: FLUTICASONE/SALMETEROL 250/50 (ADVAIR) 14 PUFF/1 INHALER INH SCH (09:19)
[2017-05-30] MEDS: ANAGRELIDE 1 MG PO SCH (09:19)
[2017-05-30] MEDS: NICOTINE 14 MG/24 HR TDSY TD SCH (09:21)
--- NOTE | 2017-05-30 11:02 | Progress Note ---
Internal Med Progress Note Date of Service: May 30, 2017. Provider Documentation: SUBJECTIVE: The patient was seen and examined Pain is finally controlled Ready to be discharged Denies any symptoms OBJECTIVE: Vital Signs-as noted below Exam: General-No distress at rest Eyes-normal ENT-normal Neck-supple Lungs-Clear to ausucltate bilaterally Heart-Regular ,no murmur Abdomen-Benign,no masses,bowel sound present Extremities-NO edema Neuro-AAOx3 NO focal neuro deficit Lab data as noted below. ASSESSMENT & PLAN: LEFT FEMUR FRACTURE Secondary to mechanical fall. X-rays show periprosthetic fracture left proximal femur. Ortho on board, recommended no surgical intervention Non-weightbearing for 6 weeks in left lower extremity with use of a walker or wheelchair. PT/OT eval ongoing Pain medication adjusted and the pain is controlled FRACTURE LEFT RADIAL NECK Xray showed Probable nondisplaced cortical fracture radial neck Continue wearing splint Ortho on board, recommended conservative management Pain control-requiring more pain medications PT/OT-continue as per ortho Appreciate Ortho HYPOTENSION-resolved Has a low urine output Got 1 liter of NS BP is maintained ANEMIA Has H/O MDS Acute Blood Loss Anemia Hb dropped to 7.3 Has had 2 units of PRBC Hg >9 on 05/27/17 OSTEOPOROSIS Vit D WNL Will need to take Vit D Supplement LEFT CHEST WALL PAIN Due to the fall No rib fracture on CXR Continue Incentive spirometry. No more pain ,no Palpitation,No SOB QUESTIONABLE LUNG MASS CXR updated report is probable related to her right breast implant Will need to review old outpatient CXR for comparison H/O Right Breast prosthesis Addendum noted -no further tests needed LEUKOCYTOSIS-resolved WBC on admission 33,[id number]. Possible related to reactive Underlying MDS. Afebrile, no sign of infection WBC trending down to 16K today. Procalcitonin and UA negative Doubt any infection-resolved MYELODYSPLASTIC SYNDROME Continue anagrelide and hydroxyurea. WBC trending down WCC went down to 13K from 33K ANXIETY Will add ativan prn THROMBOCYTOSIS Chronic. Resume clopidogrel COPD Incentive spirometry. Continue Advair + albuterol PRN. No acute issue SMOKING Smoking cessation counseling. Continue nicotine patch HISTORY PUD Continue PPI. VTE PROPHYLAXIS on SCDs on heparin subq Can have aspirin as DVT prophylaxis-discussed with the Ortho RESUSCITATION STATUS FULL CODE . Consultants: Ortho Discharged today Vital Signs: Date Time Temp Pulse Resp B/P (MAP) Pulse Ox O2 Delivery O2 Flow Rate FiO2 05/30/17 08:29 Nasal Cannula 2.0 05/30/17 07:30 92 Nasal Cannula 1.0 05/30/17 07:29 36.9 96 16 98/61 (73) 85 Room Air 05/29/17 23:45 108 97/63 (74) 05/29/17 23:45 Room Air 05/29/17 23:23 37.2 115 14 90/59 (69) 91 Room Air 05/29/17 15:50 Room Air 05/29/17 15:43 37.2 100 18 114/62 (79) 91 Room Air
[2017-05-30 15:27] VITALS: BP 106/65; PULSE 94; TEMP 37.2; O2SAT 92
[2017-05-30] MEDS ORDERED: OXYC-57 PO (15:28)
--- NOTE | 2017-05-30 15:35 | Discharge Instructions ---
Discharge Instructions Date of Service May 30, 2017. Admission Reason for Admission: Femur Fracture, Left, Hypotension Discharge Discharge Diagnosis / Problem: Left Femur and Left radial Neck Fracture,S/P Fall,Myelodysplastic Syndrome Discharge Goals Goal(s): Prevent Disease Progression Activity Recommendations Activity Level: Assistance Required Therapies: Physical Therapy, Occupational Therapy Nonoperative treatment Left Proximal femoral fracture Nonoperative treatment of Left Radial Neck fracture NWB L LE FOR 6 WEEKS NWB L ELBOW FOR 3-4 WEEKS MAY USE PLATFORM WALKER FOR TRANSFERS ONLY UNTIL LEFT ELBOW CLEARED RADIOGRAPHICALLY IN 3-4 WEEKS Additional Information Patient informed of condition: Yes Advance Directives: No DNR: No Level of Care: Skilled Communicable Disease: No Prognosis: Stable Oxygen at (LPM): 2 liter /min via Nasal [place] PRN Sanchez Catheter: Yes (Patient Wanted to have it.Can come out in 3-5 days) Instructions / Follow-Up Instructions / Follow-Up Please make an appointment with Ortho as advised ,PCP appointment in 1 week following discharge from the Facility Current Hospital Diet Patient's current hospital diet: Regular Diet Discharge Diet Recommended Diet: Regular Diet Pending Studies Studies pending at discharge: no Physician Orders On Transfer POLST Discussion: Not Applicable Medical Emergencies . Who to Call and When: Medical Emergencies: If at any time you feel your situation is an emergency, please call 911 immediately. . Non-Emergent Contact Non-Emergency issues call your: Primary Care Provider . Past History Medical & Surgical History: (1) Myelodysplastic syndrome (2) History of peptic ulcer disease (3) History of breast cancer (4) Anemia (5) COPD (chronic obstructive pulmonary disease) (6) Essential thrombocythemia (7) Leukocytosis (8) Fall (9) Fracture of radial neck, left, closed (10) Femur fracture, left (11) Hypotension (12) Status post hysterectomy (13) Status post cholecystectomy (14) Status post mastectomy (15) Status post total hip replacement, left . "Provider Documentation" section prepared by Carlotta Grant. . Core Measure Problem Core Measures: None
[2017-05-30] MEDS: TRAMADOL HCL 50 MG TAB PO PRN (16:11)
[2017-05-30] MEDS: LORATADINE 10 MG TAB PO PRN (16:37)
--- NOTE | 2017-05-31 09:09 | Discharge Summary ---
Discharge Summary Date of Service May 31, 2017. Discharge Summary Admission Date: May 23, 2017 at 23:23 Discharge Date: May 30, 2017 Discharge Disposition: Rehab Principal Diagnosis: Left Femur and Left radial Neck Fracture,S/P Fall,Myelodysplastic Syndrome Secondary Diagnoses/Problems: Please see H&P and Hospital Progress note Consultations: Ortho Medication Reconciliation New Medications: Oxycodone/Acetaminophen 5MG/325MG (Percocet 5MG/325MG) Tab 1 TAB PO Q6H PRN for Pain for 3 Days, #12 TAB PAIN Continued Medications: Albuterol (Ventolin Hfa) 60 Puffs/5400 Mcg Aers 2 PUFFS INH Q6H PRN for Wheezing Amitriptyline Hcl (Elavil) 75 Mg Tab 75 MG PO HS, TAB Anagrelide Hcl (Anagrelide Hydrochloride) 1 Mg Cap 1 MG PO BID Clopidogrel (Plavix) 75 Mg Tab 75 MG PO QAM, TAB Ergocalciferol (Vitamin D 14846 Unit) 50,000 Unit Cap 33936 UNIT PO WK, CAP Fluticasone Prop/Salmeterol (Advair Diskus 250/50 60 Dose) 1 Ea Aerp 1 PUFF INH BID, INHALER Hydroxyurea (Hydrea Cap) 500 Mg Cap 500 MG PO Q2D, CAP Loratadine (Claritin) 10 Mg Cap 10 MG PO DAILY PRN for Allergy Symptoms Nicotine (Nicoderm Cq 14MG Patch) 14 Mg/24 Hr Dis 1 PATCH TD DAILY, PATCH Nutritional Supplements ([place] Instant Breakfa) 1 Liq Liq 1-2 DOSE PO DAILY PRN for Nutritional Supplement As Need Ondansetron Hcl (Zofran) 8 Mg Tab 8 MG PO TID PRN for Nausea, TAB Pantoprazole (Protonix) 40 Mg Tab 40 MG PO BID, TAB Pregabalin (Lyrica) 75 Mg Cap 75 MG PO HS, CAP Rizatriptan Benzoate (Rizatriptan Benzoate) 10 Mg Tab 10 MG PO UD PRN for Migraine TAKE MD DIRECTS Temazepam (Restoril) 30 Mg Cap 30 MG PO HS, CAP Admission Information HPI (per Admitting provider): 76 YO female followed by Dr. Valerie Chavez for Internal Medicine and Dr. Mainor Chavez for Hematology / Oncology. History of myelodysplastic syndrome, COPD, remote history of breast Ca, and other problems as noted below. Entering a restaurant this evening, lost her balance on steps, fell, and injured her left arm, chest wall, and thigh. Unable to bear weight on the left lower extremity without severe pain. No syncope, palpitations, chest pain, focal weakness. Brought to ED for evaluation. Found to have oblique periprosthetic fracture of left femur. Left thigh pain severe - 9/10, does not radiate, worse with movement, minimal relief with IV fentanyl. Chronic and Resolved Medical Problems: (1) Anemia Status: Chronic (2) Essential thrombocythemia Status: Chronic (3) History of breast cancer Status: Chronic (4) History of MRSA infection Permanent Comment: left hip wound Status: Chronic (5) History of peptic ulcer disease Status: Chronic (6) Myelodysplastic syndrome Status: Chronic (7) S/P ORIF (open reduction internal fixation) fracture Status: Chronic Surgical Problems: (1) History of repair of left hip joint Status: Resolved (2) Status post cholecystectomy Status: Chronic (3) Status post hysterectomy Status: Chronic (4) Status post mastectomy Permanent Comment: modified right mastectomy 1990 Status: Chronic (5) Status post total hip replacement, left Status: Chronic . Family History Colon cancer FATHER Social History Smoking Status: Current Every Day Smoker Alcohol Use: none Drug Use: none Marital Status: Housing status: lives with family Occupational Status: retired Immunizations History of Influenza Vaccine: Yes History of Tetanus Vaccine?: No History of Pneumococcal: Yes History of Hepatitis B Vaccine: No Multi-Drug Resistant Organisms History of MDRO: Yes Type of MDRO: MRSA Allergies Coded Allergies: Lobster (Verified Allergy, Severe, HIVES, 05/23/17) Latex1 -Allergic Contact Dermititis (Verified Allergy, Unknown, HIVES, ) NO KNOWN DRUG ALLERGIES (Verified Allergy, Unknown, ., 05/23/17) Uncoded Allergies: METALS (Allergy, Unknown, HIVES/ITCHINESS, 09/22/16) PATIENT REPORTS ANY METALS UNDER 14 KT GOLD CAUSES HER TO BECOME ITCHY AND GET HIVES Home Medications Scheduled Amitriptyline Hcl (Elavil), 75 MG PO HS Anagrelide Hcl (Anagrelide Hydrochloride), 1 MG PO BID Clopidogrel (Plavix), 75 MG PO QAM Ergocalciferol (Vitamin D 87015 Unit), 50,000 UNIT PO WK Fluticasone Prop/Salmeterol (Advair Diskus 250/50 60 Dose), 1 PUFF INH BID Hydroxyurea (Hydrea Cap), 500 MG PO Q2D Nicotine (Nicoderm Cq 14MG Patch), 1 PATCH TD DAILY Pantoprazole (Protonix), 40 MG PO BID Pregabalin (Lyrica), 75 MG PO HS Temazepam (Restoril), 30 MG PO HS Scheduled PRN Albuterol (Ventolin Hfa), 2 PUFFS INH Q6H PRN for Wheezing Loratadine (Claritin), 10 MG PO DAILY PRN for Allergy Symptoms Nutritional Supplements ([place] Instant Breakfa), 1-2 DOSE PO DAILY PRN for Nutritional Supplement As Need Ondansetron Hcl (Zofran), 8 MG PO TID PRN for Nausea Rizatriptan Benzoate (Rizatriptan Benzoate), 10 MG PO UD PRN for Migraine Review of Systems Constitutional: No fever, No weight loss Eyes: No worsening of vision, No diplopia ENT: No hearing loss, No nasal symptoms Respiratory: + cough (chronic, unchanged), + shortness of breath (chronic, unchanged) Cardiovascular: No chest pain, No edema, No palpitations Abdomen: No pain, No nausea, No vomiting, No GI bleeding Musculoskeletal: + joint pain, + problem reported (per HPI) Genitourinary - Female: No dysuria, No hematuria Neurologic: + problem reported (migraine headaches) Endocrine: No excessive thirst, No excessive urination Hematologic / Lymphatic: + abnormal bleeding/bruising (bruises easily), No swollen lymph nodes Integumentary: No rash, No new/changing skin lesions Physical Ex - H&P Physical Exam Vital Signs Date Time Temp Pulse Resp B/P (MAP) Pulse Ox O2 Delivery O2 Flow Rate FiO2 05/23/17 21:28 95 20 94/69 93 Room Air 05/23/17 19:21 37.3 95 18 95/58 98 Room Air General Appearance: WD/WN, + moderate distress Head: normocephalic, atraumatic Eyes: normal inspection, PERRL, EOMI, sclerae normal, + pertinent finding ( conunctivae pink) ENT: normal ENT inspection, hearing grossly normal, pharynx normal Neck: supple, no adenopathy, thyroid normal, no JVD, trachea midline Respiratory/Chest: no respiratory distress, no accessory muscle use, + wheezing (diffuse, mild), + pertinent finding (right breast implant) Cardiovascular: regular rate, rhythm, no edema, no gallop, no JVD, no murmur, + abnormal peripheral pulses (diminished) Abdomen/GI: normal bowel sounds, non tender, soft, no organomegaly, no pulsatile mass Extremities/Musculoskelatal: normal inspection, no calf tenderness, normal capillary refill, no pedal edema, + pertinent finding (left thigh tenderness) Neurologic/Psych: biological science 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 fish II-XII nml as tested (PERRL, EOMI, no facial palsy, no dysartrhia), alert, oriented x 3, + pertinent finding (anxious) Skin: normal color, warm/dry, no rash Lymphatic: no adenopathy (cervical) Diagnostics - H&P Diagnostics Laboratory Results Results Past 24 Hours Test 05/23/17 21:09 05/23/17 21:53 Range/Units White Blood Count 33.66 4.8-10.8 K/uL Red Blood Count 3.60 4.2-5.4 M/uL Hemoglobin 9.9 12.0-16.0 g/dL Hematocrit 31.3 37-47 % Mean Corpuscular Volume 86.9 80-100 fL Mean Corpuscular Hemoglobin 27.5 25-34 pg Mean Corpuscular Hemoglobin Concent 31.6 32-36 g/dl Platelet Count 634 130-400 K/uL Neutrophils (%) (Auto) 82.3 % Lymphocytes (%) (Auto) 8.5 % Monocytes (%) (Auto) 4.6 % Eosinophils (%) (Auto) 2.3 % Basophils (%) (Auto) 1.0 % Neutrophils # (Auto) 27.69 1.4-6.5 K/uL Lymphocytes # (Auto) 2.85 1.2-3.4 K/uL Monocytes # (Auto) 1.56 0.11-0.59 K/uL Eosinophils # (Auto) 0.79 0-0.5 K/uL Basophils # (Auto) 0.33 0-0.2 K/uL RDW Standard Deviation 110.5 36.4-46.3 fL RDW Coefficient of Variation 32.5 11.5-14.5 % Immature Granulocyte % (Auto) 1.3 % Immature Granulocyte # (Auto) 0.44 0.00-0.02 K/uL Nucleated RBC Absolute Count (auto) 0-0 K/uL Nucleated Red Blood Cells % % Large Platelets 1+ Poikilocytosis PRESENT Anisocytosis PRESENT Prothrombin Time 11.1 9.0-12.0 SECONDS Prothromb Time International Ratio 1.0 0.9-1.1 Activated Partial Thromboplast Time 23.3 21.0-31.0 SECONDS Partial Thromboplastin Ratio 0.9 Sodium Level 139 136-145 mmol/L Potassium Level 3.5-5.1 mmol/L Chloride Level 109 98-107 mmol/L Carbon Dioxide Level 23 21-32 mmol/L Anion Gap 7.0 3-11 mmol/L Blood Urea Nitrogen 21 7-18 mg/dl Creatinine 1.30 0.60-1.20 mg/dl Est Creatinine Clear Calc Drug Dose 28.8 ml/min Estimated GFR () 46.8 Estimated GFR (Non- 40.4 BUN/Creatinine Ratio 16.4 10-20 Random Glucose 69 70-99 mg/dl Calcium Level 9.0 8.5-10.1 mg/dl Diagnostic Radiology CHEST ONE VIEW PORTABLE ORIGINAL REPORT FINDINGS: Interval development of a 15 x 11 cm well-circumscribed region of increased density right midlung. Diagnostic considerations include midlung mass versus chest wall mass. Lungs otherwise appear clear. Chronic pleural reactive change at the lung bases. No evidence for cardiac enlargement. IMPRESSION: 15 x 11 cm mass specifically involving the right hemithorax or chest wall. CT study is suggested. The above report was generated using voice recognition software. It may contain grammatical, syntax or spelling errors. Electronically signed by: Bandar Negro M.D. 05/23/2017 10:14 PM Dictated Date/Time: 05/23/2017 10:12 PM CHEST ONE VIEW PORTABLE ADDENDUM Following review of the patient's prior chest films, it is possible that the density of the right chest relates to the patient's right breast implant. It appears more prominent currently which may be a technical variation.. Electronically signed by: Bandar Negro M.D. 05/23/2017 10:44 PM Dictated Date/Time: 05/23/2017 10:43 PM LEFT HUMERUS MIN 2 VIEWS ROUTINE DISCUSSION: Considerable degenerative change of left humeral head. Moderate degenerative change acromioclavicular joint. No well-defined evidence for acute fracture. Cortical margins appear intact. There is no evidence for soft tissue swelling. IMPRESSION: Significant degenerative change left shoulder. No acute process of the humerus. The above report was generated using voice recognition software. It may contain grammatical, syntax or spelling errors. Electronically signed by: Bandar Negro M.D. 05/23/2017 8:40 PM LEFT ELBOW MIN 3 VIEWS ROUTINE DISCUSSION: Nondisplaced cortical fracture left radial neck. No evidence of dislocation. Bony mineralization is diminished throughout. There is no evidence for soft tissue swelling. IMPRESSION: Probable nondisplaced cortical fracture radial neck. Osteopenia. The above report was generated using voice recognition software. It may contain grammatical, syntax or spelling errors. Electronically signed by: Bandar Negro M.D. 05/23/2017 8:38 PM Dictated Date/Time: 05/23/2017 8:37 PM PELVIS 1 OR 2 VIEW ROUTINE DISCUSSION: Oblique nondisplaced fracture proximal left femoral shaft. Slight increase in bone separation of the lesser trochanter relation to the femoral prosthetic. No evidence for stable protrusion. No evidence dislocation. There is no evidence for soft tissue swelling. IMPRESSION: Slightly distracted oblique fracture proximal femoral shaft. Pre-existing total left hip arthroplasty. The above report was generated using voice recognition software. It may contain grammatical, syntax or spelling errors. Electronically signed by: Bandar Negro M.D. 05/23/2017 8:40 PM LEFT FEMUR 2 VIEWS ROUTINE DISCUSSION: Total left hip prosthetic. Good contact between prosthetic and underlying bone. Nondisplaced oblique cortical fracture proximal femoral shaft. No evidence of dislocation. No evidence for acetabular protrusion. There is no evidence for soft tissue swelling. IMPRESSION: Nondisplaced oblique fracture proximal femoral shaft. Status post total left hip arthroplasty. The above report was generated using voice recognition software. It may contain grammatical, syntax or spelling errors. Electronically signed by: Bandar Negro M.D. 05/23/2017 8:37 PM LEFT KNEE 1 OR 2 VIEWS ROUTINE DISCUSSION: The bones and joint spaces appear intact. There is no evidence of fracture, dislocation or bony disease. Subtle lucency lateral aspect lateral tibial plateau felt to be artifactual as it is not seen in the femoral images. IMPRESSION: Degenerative change. No acute bony abnormality. The above report was generated using voice recognition software. It may contain grammatical, syntax or spelling errors. Electronically signed by: Bandar Negro M.D. 05/23/2017 8:36 PM Dictated Date/Time: 05/23/2017 8:35 PM . EKG EKG performed at 21:19 reviewed and demonstrated NSR at 90 / minute, incomplete RBBB, no acute changes. . Impression - H&P Impression Assessment and Plan LEFT FEMUR FRACTURE Apparent mechanical fall. X-rays show periprosthetic fracture left proximal femur. Analgesics PRn. Consult Orthopedics. POSSIBLE FRACTURE LEFT RADIAL HEAD Immobilize. Consult Ortho. OSTEOPOROSIS Check vitamin D level. LEFT CHEST WALL PAIN No apparent fractures on plain films of chest. Incentive spirometry. Further evaluation if symptoms worsens. LEUKOCYTOSIS WBC 33,660. Underlying MDS. No fever or specific symptoms of infection. BP a bit low, but not unusual for her. Check UA. Check f/u WBC with procalcitonin in morning. MYELODYSPLASTIC SYNDROME Continue anagrelide and hydroxyurea. Follow CBC. THROMBOCYTOSIS Chronic. Hold clopidogrel pending surgical disposition. COPD Incentive spirometry. Continue Advair + albuterol PRN. SMOKING Smoking cessation counseling. HISTORY PUD Continue PPI. VTE PROPHYLAXIS No anticoagulants pending surgical disposition. SCD's. Ambulate when able. RESUSCITATION STATUS Discussed with patient and her daughter. She does not have a living will or durable power of staff attorney. She would like her daughter to make medical decisions for her if she is unable to do so. She would like resuscitation attempted in the event of a cardiopulmonary arrest if there is a reasonable chance of a meaningful recovery, but does not want prolonged extraordinary measures if prognosis is poor. Therefore, code status = "Level 1" (full resuscitation). DISPOSITION Anticipate need for skilled care or inpatient rehab. Internal Medicine follow-up with Dr. Valerie Chavez. Hematology / Medical Oncology follow-up with Dr. Mainor Chavez. . . Physical Exam (per Admitting): General Appearance: WD/WN, + moderate distress Head: normocephalic, atraumatic Eyes: normal inspection, PERRL, EOMI, sclerae normal, + pertinent finding ( conunctivae pink) ENT: normal ENT inspection, hearing grossly normal, pharynx normal Neck: supple, no adenopathy, thyroid normal, no JVD, trachea midline Respiratory/Chest: no respiratory distress, no accessory muscle use, + wheezing (diffuse, mild), + pertinent finding (right breast implant) Cardiovascular: regular rate, rhythm, no edema, no gallop, no JVD, no murmur , + abnormal peripheral pulses (diminished) Abdomen/GI: normal bowel sounds, non tender, soft, no organomegaly, no pulsatile mass Extremities/Musculoskelatal: normal inspection, no calf tenderness, normal capillary refill, no pedal edema, + pertinent finding (left thigh tenderness) Neurologic/Psych: biological science technician fish II-XII nml as tested (PERRL, EOMI, no facial palsy, no dysartrhia), alert, oriented x 3, + pertinent finding (anxious) Skin: normal color, warm/dry, no rash Lymphatic: no adenopathy (cervical) Hospital Course LEFT FEMUR FRACTURE Secondary to mechanical fall. X-rays show periprosthetic fracture left proximal femur. Ortho on board, recommended no surgical intervention Non-weightbearing for 6 weeks in left lower extremity with use of a walker or wheelchair. PT/OT eval ongoing Pain medication adjusted and the pain is controlled FRACTURE LEFT RADIAL NECK Xray showed Probable nondisplaced cortical fracture radial neck Continue wearing splint Ortho on board, recommended conservative management Pain control-requiring more pain medications PT/OT-continue as per ortho Appreciate Ortho HYPOTENSION-resolved Has a low urine output Got 1 liter of NS BP is maintained ANEMIA Has H/O MDS Acute Blood Loss Anemia Hb dropped to 7.3 Has had 2 units of PRBC Hg >9 on 05/27/17 OSTEOPOROSIS Vit D WNL Will need to take Vit D Supplement LEFT CHEST WALL PAIN Due to the fall No rib fracture on CXR Continue Incentive spirometry. No more pain ,no Palpitation,No SOB QUESTIONABLE LUNG MASS CXR updated report is probable related to her right breast implant Will need to review old outpatient CXR for comparison H/O Right Breast prosthesis Addendum noted -no further tests needed LEUKOCYTOSIS-resolved WBC on admission 33,660. Possible related to reactive Underlying MDS. Afebrile, no sign of infection WBC trending down to 16K today. Procalcitonin and UA negative Doubt any infection-resolved MYELODYSPLASTIC SYNDROME Continue anagrelide and hydroxyurea. WBC trending down WCC went down to 13K from 33K ANXIETY Will add ativan prn THROMBOCYTOSIS Chronic. Resume clopidogrel COPD Incentive spirometry. Continue Advair + albuterol PRN. No acute issue SMOKING Smoking cessation counseling. Continue nicotine patch HISTORY PUD Continue PPI. VTE PROPHYLAXIS on SCDs on heparin subq Can have aspirin as DVT prophylaxis-discussed with the Ortho RESUSCITATION STATUS FULL CODE . Consultants: Ortho Discharged today Total time spent on discharge = 35 minutes This includes examination of the patient, discharge planning, medication reconciliation, and communication with other providers. Discharge Instructions Date of Service May 30, 2017. Admission Reason for Admission: Femur Fracture, Left, Hypotension Discharge Discharge Diagnosis / Problem: Left Femur and Left radial Neck Fracture,S/P Fall,Myelodysplastic Syndrome Discharge Goals Goal(s): Prevent Disease Progression Activity Recommendations Activity Level: Assistance Required Therapies: Physical Therapy, Occupational Therapy Nonoperative treatment Left Proximal femoral fracture Nonoperative treatment of Left Radial Neck fracture NWB L LE FOR 6 WEEKS NWB L ELBOW FOR 3-4 WEEKS MAY USE PLATFORM WALKER FOR TRANSFERS ONLY UNTIL LEFT ELBOW CLEARED RADIOGRAPHICALLY IN 3-4 WEEKS Additional Information Patient informed of condition: Yes Advance Directives: No DNR: No Level of Care: Skilled Communicable Disease: No Prognosis: Stable Oxygen at (LPM): 2 liter /min via Nasal [place] PRN Sanchez Catheter: Yes (Patient Wanted to have it.Can come out in 3-5 days) Instructions / Follow-Up Instructions / Follow-Up Please make an appointment with Ortho as advised ,PCP appointment in 1 week following discharge from the Facility Current Hospital Diet Patient's current hospital diet: Regular Diet Discharge Diet Recommended Diet: Regular Diet Pending Studies Studies pending at discharge: no Physician Orders On Transfer POLST Discussion: Not Applicable Medical Emergencies . Who to Call and When: Medical Emergencies: If at any time you feel your situation is an emergency, please call 911 immediately. . Non-Emergent Contact Non-Emergency issues call your: Primary Care Provider . Past History Medical & Surgical History: (1) Myelodysplastic syndrome (2) History of peptic ulcer disease (3) History of breast cancer (4) Anemia (5) COPD (chronic obstructive pulmonary disease) (6) Essential thrombocythemia (7) Leukocytosis (8) Fall (9) Fracture of radial neck, left, closed (10) Femur fracture, left (11) Hypotension (12) Status post hysterectomy (13) Status post cholecystectomy (14) Status post mastectomy (15) Status post total hip replacement, left . "Provider Documentation" section prepared by Carlotta Grant. . Core Measure Problem Core Measures: None Additional Copies To Valerie Chavez M.D.
== END 2017-05-30 16:50 | DRG 536 ==
LOC: C.EDB 19:11 → C.2E 23:23 → ENRESERV 23:31 → C.3E 05-27 11:32
PROVIDERS: ADMIT Hospitalist; ATTEND Internal Medicine
DX: S72.002A Fracture of unspecified part of neck of left femur, initial encounter for closed fracture (principal); D62 Acute posthemorrhagic anemia; S52.135A Nondisplaced fracture of neck of left radius, initial encounter for closed fracture; J44.9 Chronic obstructive pulmonary disease, unspecified; F17.200 Nicotine dependence, unspecified, uncomplicated; W19.XXXA Unspecified fall, initial encounter; D46.9 Myelodysplastic syndrome, unspecified; M81.0 Age-related osteoporosis without current pathological fracture; R07.89 Other chest pain; D47.3 Essential (hemorrhagic) thrombocythemia; Z85.9 Personal history of malignant neoplasm, unspecified; Z90.49 Acquired absence of other specified parts of digestive tract; Z90.710 Acquired absence of both cervix and uterus

== ENCOUNTER 2018-01-10 15:20 | Inpatient (IN) | payer OTHER ==
[~2018-01-10] VITALS: Ht 162.6 cm; Wt 61.0 kg
[2018-01-10] VITALS (7 sets, daily range): BP systolic 115–154; BP diastolic 68–77; PULSE 81–107; TEMP 36.7–37.2; O2SAT 91–92; Ht 162.6 cm; Wt 61.0 kg
[~2018-01-10 15:20] MED LIST changes: -DAPT500I; -ERGO1CAP41 PO; +ERGO500037 PO; +ONDA-170 PO; -ONDA8TAB6 PO; +OXYC-57 PO
[2018-01-10] MEDS ORDERED: ONDANSETRON INJ 2 MG/ML 2 ML VIAL IV STA (16:06)
[2018-01-10 16:09] LABS: MEAN CORPUSCULAR HGB CONC 31.4 g/dl (32-36); PLATELET COUNT 200 K/uL (130-400)
[2018-01-10 16:31] LABS: HEMATOCRIT 22.9 % (37-47); HEMOGLOBIN 7.2 g/dL (12.0-16.0); MEAN CELL VOLUME 88.8 fL (80-100); MEAN CORPUSCULAR HEMOGLOBIN 27.9 pg (25-34); RED CELL DISTRIBUTION WIDTH SD 108.6 fL (36.4-46.3); WHITE BLOOD COUNT 13.17 K/uL (4.8-10.8)
[2018-01-10 16:35] LABS: ALBUMIN 3.9 gm/dl (3.4-5.0); CALCIUM 8.2 mg/dl (8.5-10.1); CREATININE 1.11 mg/dl (0.60-1.20); TOTAL PROTEIN 7.7 gm/dl (6.4-8.2)
[2018-01-10] MEDS ORDERED: ACET-1256 PO (16:48)
[2018-01-10 16:52] LABS: INR 1.1 (0.9-1.1); PTT PATIENT 25.5 SECONDS (21.0-31.0)
[2018-01-10] MEDS ORDERED: OXYC-57 PO (16:57)
[2018-01-10] MEDS ORDERED: OXYCODONE/ACETAMINOPHEN 5-325 TAB PO ONE (17:15)
[2018-01-10] MEDS ORDERED: ACETAMINOPHEN 325 MG TAB PO ONE (17:30)
[2018-01-10] MEDS ORDERED: ONDANSETRON INJ 2 MG/ML 2 ML VIAL IV PRN (18:30)
[2018-01-10] MEDS ORDERED: ALBUTEROL HFA 8 GM INHALER INH PRN (18:30)
[2018-01-10] MEDS ORDERED: LORATADINE 10 MG TAB PO PRN (18:30)
--- NOTE | 2018-01-10 18:41 | History and Physical ---
History & Physical Date & Time of Service: January 10, 2018 at 18:27 Chief Complaint: Shortness Of Breath Sent By Dr Chavez Primary Care Physician: Valerie Chavez M.D. History of Present Illness Source: patient, clinic records, hospital records The patient is a 77-year-old female with myeloproliferative disorder who presents to the ER with shortness of breath 1 week. She notes she is only short of breath on exertion and denies any chest pain. She is been dealing with chronic anemia secondary to her myeloproliferative disorder. She had some outpatient blood work that showed a hemoglobin of 6.5 and was referred to the emergency room. She notes a chronic cough with no changes that is productive of yellow sputum. She denies any fevers or chills. She has some chronic diarrhea and some nausea. She has a history of GI bleed but denies any blood in her stool. Review of systems also reveals some lightheadedness and dizziness as well as chronic abdominal discomfort. She is tolerating p.o. and is in good spirits. Past Medical/Surgical History Medical Problems: (1) Anemia Status: Chronic (2) Essential thrombocythemia Status: Chronic (3) History of breast cancer Status: Chronic (4) History of MRSA infection Permanent Comment: left hip wound Status: Chronic (5) History of peptic ulcer disease Status: Chronic (6) Myelodysplastic syndrome Status: Chronic (7) S/P ORIF (open reduction internal fixation) fracture Status: Chronic Surgical Problems: (1) History of repair of left hip joint Status: Resolved (2) Status post cholecystectomy Status: Chronic (3) Status post hysterectomy Status: Chronic (4) Status post mastectomy Permanent Comment: modified right mastectomy 1990 Status: Chronic (5) Status post total hip replacement, left Status: Chronic Family History Colon cancer FATHER Social History Smoking Status: Former Smoker Smokeless Tobacco Use: No Alcohol Use: none Drug Use: none Marital Status: Housing status: lives with family (Lives with her daughter) Occupational Status: retired Immunizations History of Influenza Vaccine: Yes Influenza Vaccine Date: May 05, 2017 History of Tetanus Vaccine?: Yes Tetanus Immunization Date: Sep 04, 2008 History of Pneumococcal: Yes Pneumococcal Date: Feb 07, 2017 History of Hepatitis B Vaccine: No Allergies Coded Allergies: Lobster (Verified Allergy, Severe, HIVES, 05/23/17) Latex1 -Allergic Contact Dermititis (Verified Allergy, Unknown, HIVES, ) NO KNOWN DRUG ALLERGIES (Verified Allergy, Unknown, ., 05/23/17) Uncoded Allergies: METALS (Allergy, Unknown, HIVES/ITCHINESS, 09/22/16) PATIENT REPORTS ANY METALS UNDER 14 KT GOLD CAUSES HER TO BECOME ITCHY AND GET HIVES Home Medications Scheduled Amitriptyline Hcl (Elavil), 75 MG PO HS Anagrelide Hcl (Anagrelide Hydrochloride), 1 MG PO BID Ergocalciferol (Vitamin D 72677 Unit), 50,000 UNIT PO WK Fluticasone Prop/Salmeterol (Advair Diskus 250/50 60 Dose), 1 PUFF INH BID Hydroxyurea (Hydrea Cap), 500 MG PO Q2D Pantoprazole (Protonix), 40 MG PO BID Pregabalin (Lyrica), 75 MG PO HS Temazepam (Restoril), 30 MG PO HS Scheduled PRN Acetaminophen (Tylenol), 500 MG PO Q4H PRN for Pain Albuterol (Ventolin Hfa), 2 PUFFS INH Q6H PRN for Wheezing Loratadine (Claritin), 10 MG PO DAILY PRN for Allergy Symptoms Ondansetron Hcl (Zofran), 8 MG PO TID PRN for Nausea Rizatriptan Benzoate (Rizatriptan Benzoate), 10 MG PO UD PRN for Migraine Review of Systems At least 10 systems were reviewed and negative except as indicated in HPI above. Physical Exam Vital Signs Date Time Temp Pulse Resp B/P (MAP) Pulse Ox O2 Delivery O2 Flow Rate FiO2 01/10/18 16:53 86 24 122/65 98 Room Air 01/10/18 16:19 88 01/10/18 16:02 97 Room Air 01/10/18 15:23 36.4 80 20 129/67 98 Room Air General Appearance: WD/WN, no apparent distress, + pertinent finding (No conversational dyspnea) Head: normocephalic, atraumatic Eyes: normal inspection, PERRL, sclerae normal ENT: hearing grossly normal, + pertinent finding (Dentures in place) Neck: supple, no JVD, trachea midline Respiratory/Chest: lungs clear, normal breath sounds, no respiratory distress, no accessory muscle use Cardiovascular: regular rate, rhythm, no edema, no gallop, no JVD, no murmur, normal peripheral pulses Abdomen/GI: normal bowel sounds, soft, no organomegaly, + tenderness ( Generalized tenderness) Back: normal inspection Extremities/Musculoskelatal: normal inspection, no pedal edema, normal range of motion Neurologic/Psych: electrocardiograph technician II-XII nml as tested, no motor/sensory deficits, alert, normal mood/affect, oriented x 3 Skin: normal color, warm/dry, no rash Diagnostics Laboratory Results 01/10/18 15:36 Red Blood Count 2.58, Mean Corpuscular Volume 88.8, Mean Corpuscular Hemoglobin 27.9, Mean Corpuscular Hemoglobin Concent 31.4 01/10/18 15:36 Test 01/10/18 15:36 01/10/18 16:32 White Blood Count 13.17 K/uL (4.8-10.8) Red Blood Count 2.58 M/uL (4.2-5.4) Hemoglobin 7.2 g/dL (12.0-16.0) Hematocrit 22.9 % (37-47) Mean Corpuscular Volume 88.8 fL (80-100) Mean Corpuscular Hemoglobin 27.9 pg (25-34) Mean Corpuscular Hemoglobin Concent 31.4 g/dl (32-36) Platelet Count 200 K/uL (130-400) RDW Standard Deviation 108.6 fL (36.4-46.3) RDW Coefficient of Variation 33.0 % (11.5-14.5) Neutrophils % (Manual) 60.8 % Lymphocytes % (Manual) 18.3 % Monocytes % (Manual) 5.2 % Eosinophils % (Manual) 7.0 % Basophils % (Manual) 7.0 % Myelocytes % 1.7 % Neutrophils # (Manual) 8.01 K/uL (1.4-6.5) Total Absolute Neutrophils 8.01 K/uL (1.4-6.5) Lymphocytes # (Manual) 2.41 K/uL (1.2-3.4) Total Absolute Lymphocytes 2.41 K/uL (1.2-3.4) Monocytes # (Manual) 0.68 K/uL (0.11-0.59) Eosinophils # (Manual) 0.92 K/uL (0-0.5) Basophils # (Manual) 0.92 K/uL (0-0.2) Myelocytes # 0.22 K/uL (0-0) Giant Platelets 1+ Hypochromasia PRESENT Poikilocytosis PRESENT Anisocytosis PRESENT Schistocytes 1+ Anion Gap 7.0 mmol/L (3-11) Est Creatinine Clear Calc Drug Dose 37.8 ml/min Estimated GFR () 56.3 Estimated GFR (Non- 48.5 BUN/Creatinine Ratio 14.0 (10-20) Calcium Level 8.2 mg/dl (8.5-10.1) Total Bilirubin 0.5 mg/dl (0.2-1) Direct Bilirubin 0.1 mg/dl (0-0.2) Aspartate Amino Transf (AST/SGOT) 17 U/L (15-37) Alanine Aminotransferase (ALT/SGPT) 13 U/L (12-78) Alkaline Phosphatase 88 U/L (45-117) Total Protein 7.7 gm/dl (6.4-8.2) Albumin 3.9 gm/dl (3.4-5.0) Prothrombin Time 11.7 SECONDS (9.0-12.0) Prothromb Time International Ratio 1.1 (0.9-1.1) Activated Partial Thromboplast Time 25.5 SECONDS (21.0-31.0) Partial Thromboplastin Ratio 1.0 Results Past 24 Hours Test 01/10/18 15:36 01/10/18 16:32 Range/Units White Blood Count 13.17 4.8-10.8 K/uL Red Blood Count 2.58 4.2-5.4 M/uL Hemoglobin 7.2 12.0-16.0 g/dL Hematocrit 22.9 37-47 % Mean Corpuscular Volume 88.8 80-100 fL Mean Corpuscular Hemoglobin 27.9 25-34 pg Mean Corpuscular Hemoglobin Concent 31.4 32-36 g/dl Platelet Count 200 130-400 K/uL RDW Standard Deviation 108.6 36.4-46.3 fL RDW Coefficient of Variation 33.0 11.5-14.5 % Neutrophils % (Manual) 60.8 % Lymphocytes % (Manual) 18.3 % Monocytes % (Manual) 5.2 % Eosinophils % (Manual) 7.0 % Basophils % (Manual) 7.0 % Myelocytes % 1.7 % Neutrophils # (Manual) 8.01 1.4-6.5 K/uL Total Absolute Neutrophils 8.01 1.4-6.5 K/uL Lymphocytes # (Manual) 2.41 1.2-3.4 K/uL Total Absolute Lymphocytes 2.41 1.2-3.4 K/uL Monocytes # (Manual) 0.68 0.11-0.59 K/uL Eosinophils # (Manual) 0.92 0-0.5 K/uL Basophils # (Manual) 0.92 0-0.2 K/uL Myelocytes # 0.22 0-0 K/uL Giant Platelets 1+ Hypochromasia PRESENT Poikilocytosis PRESENT Anisocytosis PRESENT Schistocytes 1+ Sodium Level 144 136-145 mmol/L Potassium Level 4.0 3.5-5.1 mmol/L Chloride Level 115 98-107 mmol/L Carbon Dioxide Level 22 21-32 mmol/L Anion Gap 7.0 3-11 mmol/L Blood Urea Nitrogen 16 7-18 mg/dl Creatinine 1.11 0.60-1.20 mg/dl Est Creatinine Clear Calc Drug Dose 37.8 ml/min Estimated GFR () 56.3 Estimated GFR (Non- 48.5 BUN/Creatinine Ratio 14.0 10-20 Random Glucose 89 70-99 mg/dl Calcium Level 8.2 8.5-10.1 mg/dl Total Bilirubin 0.5 0.2-1 mg/dl Direct Bilirubin 0.1 0-0.2 mg/dl Aspartate Amino Transf (AST/SGOT) 17 15-37 U/L Alanine Aminotransferase (ALT/SGPT) 13 12-78 U/L Alkaline Phosphatase 88 45-117 U/L Total Protein 7.7 6.4-8.2 gm/dl Albumin 3.9 3.4-5.0 gm/dl Prothrombin Time 11.7 9.0-12.0 SECONDS Prothromb Time International Ratio 1.1 0.9-1.1 Activated Partial Thromboplast Time 25.5 21.0-31.0 SECONDS Partial Thromboplastin Ratio 1.0 Diagnostic Radiology CXR pending EKG SR 76 Impression Assessment and Plan 77-year-old female with chronic myeloproliferative disorder presents with symptomatic anemia. 1. Symptomatic anemia-secondary to chronic disease. No acute bleeding is present. Patient will be transfused 2 units of irradiated blood overnight. Repeat CBC in a.m. Reassess clinical status in a.m. If patient is improved from a symptomatic standpoint may potentially go home. 2. Myeloproliferative disorder/essential thrombocythemia-patient of Dr. Mainor Chavez's. He has held hydroxyurea for this month based on hemoglobin levels. The patient is not on Plavix. Pharmacy to help with dosing of anagrelide. 3. COPD-stable, no wheezing on exam. Continue Advair and as needed albuterol as needed. 4. Chronic low back pain-continue Elavil, Lyrica in the evenings DVT prophylaxis-contraindicated to give chemoprophylaxis secondary to anemia, SCDs Full code Disposition-if symptoms fully resolve and patient is ambulatory and mentating at baseline she may be able to go home in a.m. Desiree Cason DO [facility] hospitalist Resuscitation Status VTE Prophylaxis Will order VTE Prophylaxis: Yes
--- NOTE | 2018-01-10 20:17 | DIAGNOSTIC IMAGING REPORT ---
CHEST ONE VIEW PORTABLE CLINICAL HISTORY: 77 years-old Female presenting with chronic cough , SOB, and needs baseline CXR. TECHNIQUE: Portable upright AP view of the chest was obtained. COMPARISON: 05/23/2017. FINDINGS: Atherosclerosis of the aortic arch. Cardiac silhouette normal in size. Calcified left hilar lymph nodes noted. Asymmetric density in the right hemithorax may relate to the reported breast implant. Postsurgical changes of the right axilla with surgical clips likely indicating lymph node dissection. Heterogeneity of lung parenchyma with coarsening of lung markings. Mild bronchial wall thickening. Minimal left basilar opacity. No large effusion or pneumothorax. Osteopenia suggested. Upper abdomen normal. IMPRESSION: 1. Findings suggest emphysema with bronchial wall thickening/bronchitis. No focal infiltrate to suggest pneumonia. Minimal left basilar atelectasis may also be present. Electronically signed by: Bennie Jo M.D. 01/10/2018 8:16 PM Dictated Date/Time: 01/10/2018 8:14 PM
[2018-01-10] MEDS: AMITRIPTYLINE HCL 50 MG TAB PO SCH (22:05)
[2018-01-10] MEDS: PREGABALIN 75 MG CAP PO SCH (22:05)
[2018-01-10] MEDS: FLUTICASONE/SALMETEROL 250/50 (ADVAIR) 14 PUFF/1 INHALER INH SCH (22:06)
[2018-01-10] MEDS: PANTOprazole SOD 40 MG TAB PO SCH (22:06)
[2018-01-10] MEDS: TEMAZEPAM 15 MG CAP PO SCH (22:08)
[2018-01-10] MEDS: [UNRECOGNIZED DRUG - OTHER] SCH (22:27)
--- NOTE | 2018-01-10 22:52 | EMERGENCY ROOM VISIT NOTE ---
History Report prepared by Del: Dave Kamara Under the Supervision of: Dr. Tuan Koch M.D. First contact with patient: 15:27 Chief Complaint: ABNORMAL LABS Stated Complaint: SHORTNESS OF BREATH SENT BY DR CHAVEZ History of Present Illness The patient is a 77 year old female who presents to the Emergency Room with complaints of intermittent shortness of breath beginning today. She notes she is only short of breath on exertion. The patient states she has been dealing with anemia for quite some time. She reports she has a history of myelodysplastic syndrome. The patient notes this has been the source of her anemia. She states she had blood work drawn today, and her hemoglobin was 6.4. The patient reports her last blood work showed her hemoglobin of 7.4. She notes she was sent here by Dr. Chavez because she developed lightheadedness, dizziness , and shortness of breath. The patient states she has also been nauseous for the past few weeks. She reports she was sweating yesterday. The patient notes she has a history of blood transfusions, and she must have irradiated packed red blood cells. She states she knows it takes longer, and she asking to have a blood transfusion to make her feel better. The patient reports she has been experiencing water, brown diarrhea for a while, and she follow up with GI. Pt denies LOC, headache, fevers, chills, visual changes, neck pain, chest pain, vomiting, abdominal pain, back pain, melena, hematochezia, urinary symptoms, numbness, weakness, lymphadenopathy, rash, vaginal discharge, recent antibiotic use, or other complaints. She notes a history of cholecystectomy and hysterectomy. The patient's daughter states she is more pale than usual. Source of History: patient Onset: today Quality: other (SOB) Timing: intermittent Modifying Factors (Worsening): exertion Associated Symptoms: + diarrhea Note: Associated symptoms: lightheadedness, dizziness, pale Review of Systems See HPI for pertinent positives and negatives. A total of ten systems were reviewed and were otherwise negative. Past Medical & Surgical Medical Problems: (1) Anemia (2) COPD (chronic obstructive pulmonary disease) (3) Essential thrombocythemia (4) History of breast cancer (5) History of MRSA infection (6) History of peptic ulcer disease (7) Myelodysplastic syndrome (8) S/P ORIF (open reduction internal fixation) fracture (9) Symptomatic anemia Surgical Problems: (1) History of repair of left hip joint (2) Status post cholecystectomy (3) Status post hysterectomy (4) Status post mastectomy (5) Status post total hip replacement, left Family History Colon cancer FATHER Social History Smoking Status: Former Smoker Drug Use: none Marital Status: Housing Status: lives with family Occupation Status: retired Current/Historical Medications Scheduled Amitriptyline Hcl (Elavil), 75 MG PO HS Anagrelide Hcl (Anagrelide Hydrochloride), 1 MG PO BID Ergocalciferol (Vitamin D 78963 Unit), 50,000 UNIT PO WK Fluticasone Prop/Salmeterol (Advair Diskus 250/50 60 Dose), 1 PUFF INH BID Hydroxyurea (Hydrea Cap), 500 MG PO Q2D Pantoprazole (Protonix), 40 MG PO BID Pregabalin (Lyrica), 75 MG PO HS Temazepam (Restoril), 30 MG PO HS Scheduled PRN Acetaminophen (Tylenol), 500 MG PO Q4H PRN for Pain Albuterol (Ventolin Hfa), 2 PUFFS INH Q6H PRN for Wheezing Loratadine (Claritin), 10 MG PO DAILY PRN for Allergy Symptoms Ondansetron Hcl (Zofran), 8 MG PO TID PRN for Nausea Rizatriptan Benzoate (Rizatriptan Benzoate), 10 MG PO UD PRN for Migraine Allergies Coded Allergies: Lobster (Verified Allergy, Severe, HIVES, 05/23/17) Latex1 -Allergic Contact Dermititis (Verified Allergy, Unknown, HIVES, ) NO KNOWN DRUG ALLERGIES (Verified Allergy, Unknown, ., 05/23/17) Uncoded Allergies: METALS (Allergy, Unknown, HIVES/ITCHINESS, 09/22/16) PATIENT REPORTS ANY METALS UNDER 14 KT GOLD CAUSES HER TO BECOME ITCHY AND GET HIVES Physical Exam Vital Signs Date Time Temp Pulse Resp B/P (MAP) Pulse Ox O2 Delivery O2 Flow Rate FiO2 01/10/18 16:53 86 24 122/65 98 Room Air 01/10/18 16:19 88 01/10/18 16:02 97 Room Air 01/10/18 15:23 36.4 80 20 129/67 98 Room Air Physical Exam GENERAL: Awake, alert, tired-appearing, in no distress HENT: Normocephalic, atraumatic. Oropharynx unremarkable. EYES: Pale conjunctiva. Sclera non-icteric. NECK: Supple. No nuchal rigidity. FROM. No masses. RESPIRATORY: Clear to auscultation. No wheezes. No rales. Normal respiratory effort. CARDIAC: Normal rate. Normal rhythm. No murmurs. No rubs. Extremities warm and well perfused. Pulses equal. No JVD. GI: Soft, non-distended. No tenderness to palpation. No rebound or guarding. No masses. RECTAL: Deferred. MUSCULOSKELETAL: Atraumatic. Chest examination reveals no tenderness. The back is symmetrical on inspection without obvious abnormality. There is no CVA tenderness to palpation. No joint edema. LOWER EXTREMITIES: Calves are equal size bilaterally and non-tender. Trace lower extremity edema. No discoloration. NEURO: Normal sensorium. No sensory or motor deficits noted. SKIN: No rash or jaundice noted. Medical Decision & Procedures Laboratory Results 01/10/18 15:36 Red Blood Count 2.58, Mean Corpuscular Volume 88.8, Mean Corpuscular Hemoglobin 27.9, Mean Corpuscular Hemoglobin Concent 31.4 01/10/18 15:36 Test 01/10/18 15:36 01/10/18 16:32 White Blood Count 13.17 K/uL (4.8-10.8) Red Blood Count 2.58 M/uL (4.2-5.4) Hemoglobin 7.2 g/dL (12.0-16.0) Hematocrit 22.9 % (37-47) Mean Corpuscular Volume 88.8 fL (80-100) Mean Corpuscular Hemoglobin 27.9 pg (25-34) Mean Corpuscular Hemoglobin Concent 31.4 g/dl (32-36) Platelet Count 200 K/uL (130-400) RDW Standard Deviation 108.6 fL (36.4-46.3) RDW Coefficient of Variation 33.0 % (11.5-14.5) Neutrophils % (Manual) 60.8 % Lymphocytes % (Manual) 18.3 % Monocytes % (Manual) 5.2 % Eosinophils % (Manual) 7.0 % Basophils % (Manual) 7.0 % Myelocytes % 1.7 % Neutrophils # (Manual) 8.01 K/uL (1.4-6.5) Total Absolute Neutrophils 8.01 K/uL (1.4-6.5) Lymphocytes # (Manual) 2.41 K/uL (1.2-3.4) Total Absolute Lymphocytes 2.41 K/uL (1.2-3.4) Monocytes # (Manual) 0.68 K/uL (0.11-0.59) Eosinophils # (Manual) 0.92 K/uL (0-0.5) Basophils # (Manual) 0.92 K/uL (0-0.2) Myelocytes # 0.22 K/uL (0-0) Giant Platelets 1+ Hypochromasia PRESENT Poikilocytosis PRESENT Anisocytosis PRESENT Schistocytes 1+ Anion Gap 7.0 mmol/L (3-11) Est Creatinine Clear Calc Drug Dose 37.8 ml/min Estimated GFR () 56.3 Estimated GFR (Non- 48.5 BUN/Creatinine Ratio 14.0 (10-20) Calcium Level 8.2 mg/dl (8.5-10.1) Total Bilirubin 0.5 mg/dl (0.2-1) Direct Bilirubin 0.1 mg/dl (0-0.2) Aspartate Amino Transf (AST/SGOT) 17 U/L (15-37) Alanine Aminotransferase (ALT/SGPT) 13 U/L (12-78) Alkaline Phosphatase 88 U/L (45-117) Total Protein 7.7 gm/dl (6.4-8.2) Albumin 3.9 gm/dl (3.4-5.0) Prothrombin Time 11.7 SECONDS (9.0-12.0) Prothromb Time International Ratio 1.1 (0.9-1.1) Activated Partial Thromboplast Time 25.5 SECONDS (21.0-31.0) Partial Thromboplastin Ratio 1.0 Laboratory results reviewed by me Medications Administered Medications (Trade) Dose Ordered Sig/Pradip Route Start Time Stop Time Status Last Admin Dose Admin Ondansetron HCl (Zofran Inj) 4 mg NOW STAT IV 01/10/18 16:06 01/10/18 16:07 DC 01/10/18 16:53 4 MG Oxycodone/ Acetaminophen (Percocet 5-325mg Tab) 1 tab NOW ONCE PO 01/10/18 17:15 01/10/18 17:16 DC 01/10/18 17:34 1 TAB ECG Per My Interpretation Indication: SOB/dyspnea Rate (beats per minute): 86 Rhythm: normal sinus Findings: nonspecific-ST abn, T-wave inversion (lead III) Comparison ECG Date: 01/23/17 Change: TWIs in lead III and nonspecific-ST abnormality are new. ED Course 1537: The patient was evaluated in room B09. A complete history and physical exam was performed. I discussed the risks and benefits of a blood transfusion with the patient. She verbalized complete agreement and will sign the consent form. 1606: Ordered Ondansetron HCl 4mg IV 1637: Upon reexamination, the patient was resting and waiting for her blood transfusion. I discussed the test results and treatment plan with her. The patient will be evaluated for further management. 1655: I discussed the patient's case with Aracelis Gaspar. The patient will be evaluated for further management. 1715: Ordered Oxycodone/Acetaminophen 1 tab PO Medical Decision Prior records/ancillary studies reviewed and summarized above. Nursing notes reviewed and agree them. The patient's history was concerning for weakness and anemia. Differential diagnosis: Etiologies such as symptomatic anemia, metabolic, infection, hypo/hyperglycemia , electrolyte abnormalities, cardiac sources, intracerebral event, toxicologic, neurologic, as well as others were entertained. Physical examination: As above. ER treatment provided: IV Lock Zofran Typed and crossed for 2 units On reassessment the patient felt better. Diagnostics interpretation by me: ECG: No ischemia. No ectopy. The labs revealed a significant anemia on CBC. Chemistry panel unremarkable. Imaging studies: Deferred Consultation: A consultation was placed with the hospitalist. The case was discussed and diagnostics were reviewed. The patient was evaluated in the ER for further treatment. Medication Reconcilliation Current Medication List: was personally reviewed by me Blood Pressure Screening Patient's blood pressure: Normal blood pressure Blood pressure disposition: Did not require urgent referral Consults Time Called: 1641 Consulting Physician: Aracelis Gaspar Returned Call: 1655 I discussed the patient's case with Aracelis Gaspar. The patient will be evaluated for further management. Impression Primary Impression: Symptomatic anemia Scribe Attestation The scribe's documentation has been prepared under my direction and personally reviewed by me in its entirety. I confirm that the note above accurately reflects all work, treatment, procedures, and medical decision making performed by me. Departure Information Dispostion Being Evaluated By Hospitalist Valerie Jacobs M.D. (PCP) Patient Instructions [facility]
[2018-01-11] VITALS (9 sets, daily range): BP systolic 100–131; BP diastolic 47–78; PULSE 82–94; TEMP 36.8–37.2; O2SAT 90–95
[2018-01-11 07:07] LABS: MEAN CORPUSCULAR HGB CONC 31.5 g/dl (32-36); NUCLEATED RED BLOOD CELL ABS 0.09 K/uL (0-0)
[2018-01-11 07:53] LABS: HEMATOCRIT 26.7 % (37-47); HEMOGLOBIN 8.4 g/dL (12.0-16.0); MEAN CORPUSCULAR HEMOGLOBIN 27.4 pg (25-34); PLATELET COUNT 153 K/uL (130-400); RED CELL DISTRIBUTION WIDTH CV 27.5 % (11.5-14.5); RED CELL DISTRIBUTION WIDTH SD 83.8 fL (36.4-46.3); WHITE BLOOD COUNT 10.78 K/uL (4.8-10.8)
[2018-01-11] MEDS: [UNRECOGNIZED DRUG - OTHER] SCH ×2 (07:59→15:46)
[2018-01-11] MEDS: FLUTICASONE/SALMETEROL 250/50 (ADVAIR) 14 PUFF/1 INHALER INH SCH (08:00)
[2018-01-11] MEDS: PANTOprazole SOD 40 MG TAB PO SCH ×2 (08:01→21:21)
--- NOTE | 2018-01-11 10:28 | Clinical Documentation Query ---
SAGE Galvan : CLINICAL DOCUMENTATION QUERY Patient is a 77 year old female with myelodysplastic syndrome, admitted for evaluation of shortness of breath in the setting of chronic anemia. H&P notes include: "Symptomatic anemia-secondary to chronic disease". As appropriate, consider documentation as suggested below to causally link anemia to MDS. In your clinical opinion is this patient being managed for: ( ) Myeloproliferative anemia ( ) Not Agree (x ) Other explanation of clinical findings: I would say the diagnosis is ANEMIA OF CHRONIC DISEASE. She has a myeloproliferative disorder called ESSENTIAL THROMBOCYTHEMIA; there is no myeloproliferative anemia. Myeloproliferative denotes an overproduction of a cell line, and anemia is referring to the lack of RBCs. ( ) Unable to determine ( ) Need to Discuss (Please call CDS via extension or qliq. If no interaction occurs this is considered a no response.) The medical record reflects the following clinical findings, treatment, and risk factors. Clinical Indicators: As above Treatment: Transfusion of PRBC's. Risk Factors: MDS Please clarify and document your clinical opinion in the progress notes and discharge summary. Terms such as "probable", "suspected", "likely", "questionable", "possible", or "still to be ruled out" are acceptable. IF IN AGREEMENT, YOU MUST DOCUMENT ABOVE DIAGNOSTIC STATEMENT IN DAILY PROGRESS NOTES AND DISCHARGE SUMMARY. This document is not part of the patient's record. Thank You, Brian Busby RN [phone]
--- NOTE | 2018-01-11 13:50 | Discharge Instructions ---
Discharge Instructions Date of Service January 11, 2018. Admission Reason for Admission: Symptomatic Anemia Discharge Discharge Diagnosis / Problem: Symptomatic anemia Discharge Goals Goal(s): Prevent Disease Progression Activity Recommendations Activity Limitations: per Instructions/Follow-up section . Instructions / Follow-Up Instructions / Follow-Up Please take all medications as instructed on discharge list. Please follow-up with Dr. Chavez for lab testing and follow-up in the next 4 weeks. You have a hospital follow-up appointment with Dr. Valerie Chavez on 01/16 at 11: 05 AM. Please bring all paperwork from this hospitalization to that appointment. It was a pleasure taking care of you! Call if you have any questions or problems. You can reach a [facility] hospitalist on duty at [facility] 24 hours a day by calling [phone]. Take care of yourself. Desiree Cason DO [facility] Hospitalist Current Hospital Diet Patient's current hospital diet: Regular Diet Discharge Diet Recommended Diet: Regular Diet Procedures Procedures Performed: 2 units blood transfusion Pending Studies Studies pending at discharge: no Medical Emergencies . Who to Call and When: Medical Emergencies: If at any time you feel your situation is an emergency, please call 911 immediately. . Non-Emergent Contact Non-Emergency issues call your: Primary Care Provider . . "Provider Documentation" section prepared by Desiree Cason. .
[2018-01-11] MEDS: ACETAMINOPHEN 325 MG TAB PO PRN ×2 (15:36→21:20)
[2018-01-11] MEDS ORDERED: ALBUT/IPRATROP 3MG/0.5MG NEB 3 ML VIAL NEB ONE (17:29)
[2018-01-11] MEDS ORDERED: AZITHROMYCIN 250 MG TAB PO ONE (17:29)
--- NOTE | 2018-01-11 17:42 | Progress Note ---
Medicine Progress Note Date & Time of Visit: January 11, 2018 at 17:36. Subjective 77-year-old female with chronic myeloproliferative disorder presents with symptomatic anemia. She received 2 units of irradiated blood overnight. She does not report feeling any improvement and continues to endorse shortness of breath with exertion. Specifically she states that with 3 steps she becomes short of breath. She does admit to some wheezing and a productive cough in the last week. She does have a history of COPD. There is no wheezing on exam today however, breath sounds are somewhat distant. She is otherwise tolerating p.o. and is asymptomatic. Review of telemetry reveals no acute events and is sinus rhythm in the 80s overnight. Objective Last 8 Hrs Date Time Temp Pulse Resp B/P (MAP) Pulse Ox O2 Delivery O2 Flow Rate FiO2 01/11/18 16:00 95 Room Air 01/11/18 15:15 37.2 82 18 131/76 (94) 95 Room Air 01/11/18 12:00 Room Air 01/11/18 10:36 37.0 88 20 119/78 (92) 90 Room Air Physical Exam: GEN: WNWD, in no acute distress, alert and appropriate HEENT: NC/AT, PERRL, normal sclerae CARDIO: reg rate, S1/2 heard without m/g/r LUNGS: CTA bilaterally, no crackles, rales or wheezes, breath sounds are distant ABD: soft, non-tender, non-distended, no rebound or guarding EXTREMITY: RP and DP palpable 2+ bilat, no LE swelling or edema, extremities are warm and well-perfused NEURO: CN 2-12 grossly intact MUSC: moves all extremities equally, no gross focal deficits. SKIN: warm and dry Laboratory Results: 01/11/18 06:52 Red Blood Count 3.07, Mean Corpuscular Volume 87.0, Mean Corpuscular Hemoglobin 27.4, Mean Corpuscular Hemoglobin Concent 31.5 01/10/18 15:36 Test 01/10/18 15:36 01/10/18 16:32 01/10/18 19:30 01/11/18 06:52 Myelocytes % 1.7 % Myelocytes # 0.22 K/uL (0-0) Giant Platelets 1+ Schistocytes 1+ Anion Gap 7.0 mmol/L (3-11) Est Creatinine Clear Calc Drug Dose 37.8 ml/min Estimated GFR () 56.3 Estimated GFR (Non- 48.5 BUN/Creatinine Ratio 14.0 (10-20) Calcium Level 8.2 mg/dl (8.5-10.1) Total Bilirubin 0.5 mg/dl (0.2-1) Direct Bilirubin 0.1 mg/dl (0-0.2) Aspartate Amino Transf (AST/SGOT) 17 U/L (15-37) Alanine Aminotransferase (ALT/SGPT) 13 U/L (12-78) Alkaline Phosphatase 88 U/L (45-117) Total Protein 7.7 gm/dl (6.4-8.2) Albumin 3.9 gm/dl (3.4-5.0) Prothrombin Time 11.7 SECONDS (9.0-12.0) Prothromb Time International Ratio 1.1 (0.9-1.1) Activated Partial Thromboplast Time 25.5 SECONDS (21.0-31.0) Partial Thromboplastin Ratio 1.0 Urine Color YELLOW Urine Appearance CLEAR (CLEAR) Urine pH 5.0 (4.5-7.5) Urine Specific [place] 1.022 (1.000-1.030) Urine Protein NEG (NEG) Urine Glucose (UA) NEG (NEG) Urine Ketones NEG (NEG) Urine Occult Blood NEG (NEG) Urine Nitrite NEG (NEG) Urine Bilirubin NEG (NEG) Urine Urobilinogen NEG (NEG) Urine Leukocyte Esterase NEG (NEG) White Blood Count 10.78 K/uL (4.8-10.8) Red Blood Count 3.07 M/uL (4.2-5.4) Hemoglobin 8.4 g/dL (12.0-16.0) Hematocrit 26.7 % (37-47) Mean Corpuscular Volume 87.0 fL (80-100) Mean Corpuscular Hemoglobin 27.4 pg (25-34) Mean Corpuscular Hemoglobin Concent 31.5 g/dl (32-36) Platelet Count 153 K/uL (130-400) RDW Standard Deviation 83.8 fL (36.4-46.3) RDW Coefficient of Variation 27.5 % (11.5-14.5) Nucleated RBC Absolute Count (auto) 0.09 K/uL (0-0) Neutrophils % (Manual) 68.4 % Lymphocytes % (Manual) 16.7 % Monocytes % (Manual) 0.9 % Eosinophils % (Manual) 7.0 % Basophils % (Manual) 6.1 % Metamyelocytes % 0.9 % Nucleated Red Blood Cells % 0.8 % Neutrophils # (Manual) 7.37 K/uL (1.4-6.5) Total Absolute Neutrophils 7.37 K/uL (1.4-6.5) Lymphocytes # (Manual) 1.80 K/uL (1.2-3.4) Total Absolute Lymphocytes 1.80 K/uL (1.2-3.4) Monocytes # (Manual) 0.10 K/uL (0.11-0.59) Eosinophils # (Manual) 0.75 K/uL (0-0.5) Basophils # (Manual) 0.66 K/uL (0-0.2) Metamyelocytes # 0.10 K/uL (0-0) Platelet Estimate NORMAL Large Platelets 1+ Hypochromasia PRESENT Poikilocytosis PRESENT Anisocytosis PRESENT Last 24 Hours Test 01/10/18 19:30 01/11/18 06:52 Urine Color YELLOW Urine Appearance CLEAR Urine pH 5.0 Urine Specific [place] 1.022 Urine Protein NEG Urine Glucose (UA) NEG Urine Ketones NEG Urine Occult Blood NEG Urine Nitrite NEG Urine Bilirubin NEG Urine Urobilinogen NEG Urine Leukocyte Esterase NEG White Blood Count 10.78 K/uL Red Blood Count 3.07 M/uL Hemoglobin 8.4 g/dL Hematocrit 26.7 % Mean Corpuscular Volume 87.0 fL Mean Corpuscular Hemoglobin 27.4 pg Mean Corpuscular Hemoglobin Concent 31.5 g/dl Platelet Count 153 K/uL RDW Standard Deviation 83.8 fL RDW Coefficient of Variation 27.5 % Nucleated RBC Absolute Count (auto) 0.09 K/uL Neutrophils % (Manual) 68.4 % Lymphocytes % (Manual) 16.7 % Monocytes % (Manual) 0.9 % Eosinophils % (Manual) 7.0 % Basophils % (Manual) 6.1 % Metamyelocytes % 0.9 % Nucleated Red Blood Cells % 0.8 % Neutrophils # (Manual) 7.37 K/uL Total Absolute Neutrophils 7.37 K/uL Lymphocytes # (Manual) 1.80 K/uL Total Absolute Lymphocytes 1.80 K/uL Monocytes # (Manual) 0.10 K/uL Eosinophils # (Manual) 0.75 K/uL Basophils # (Manual) 0.66 K/uL Metamyelocytes # 0.10 K/uL Platelet Estimate NORMAL Large Platelets 1+ Hypochromasia PRESENT Poikilocytosis PRESENT Anisocytosis PRESENT Assessment & Plan 77-year-old female with chronic myeloproliferative disorder presents with symptomatic anemia. She received 2 units of irradiated blood overnight. She does not report feeling any improvement and continues to endorse shortness of breath with exertion. Specifically she states that with 3 steps she becomes short of breath. She does admit to some wheezing and a productive cough in the last week. She does have a history of COPD. There is no wheezing on exam today however, breath sounds are somewhat distant. She is otherwise tolerating p.o. and is asymptomatic. Review of telemetry reveals no acute events and is sinus rhythm in the 80s overnight. 1. Symptomatic anemia-secondary to anemia of chronic disease. No acute bleeding is present. Transfusion of 2 units overnight. No improvement in shortness of breath. Dyspnea likely secondary to COPD exacerbation in this case. No echo on file so we will also get that in the morning. For now continue treatment of COPD as below. Of note, Dr. Chavez was notified by Lorraine text of the posttransfusion H&H and does not recommend any further blood transfusion at this time. The patient will need to follow-up with Dr. Chavez as an outpatient. 2. COPD exacerbation-will begin prednisone 40 daily for 5 days, azithromycin 500 for 3 days, DuoNeb therapy. Will stop Advair in the setting of prednisone. Will monitor improvement in shortness of breath. 3. Myeloproliferative disorder/essential thrombocythemia-patient of Dr. Mainor Chavez's. He has held hydroxyurea for this month based on hemoglobin levels. The patient is not on Plavix. Pharmacy to help with dosing of anagrelide. 4. Chronic low back pain-stable, continue Elavil, Lyrica in the evenings DVT prophylaxis-contraindicated to give chemoprophylaxis secondary to anemia, SCDs Full code Disposition-likely to home in next 1-2 days, pending PT/OT evaluation. Desiree Cason DO [facility] hospitalist Current Inpatient Medications: Current Inpatient Medications Medications (Trade) Dose Ordered Sig/Pradip Route Start Time Stop Time Status Last Admin Dose Admin Acetaminophen (Tylenol Tab) 650 mg Q4H PRN PO 01/10/18 18:30 02/09/18 18:29 01/11/18 15:36 650 MG Ondansetron HCl (Zofran Inj) 4 mg Q6H PRN IV 01/10/18 18:30 02/09/18 18:29 01/11/18 15:40 4 MG Albuterol (Ventolin Hfa Inhaler) 2 puffs Q6H PRN INH 01/10/18 18:30 02/09/18 18:29 Amitriptyline HCl (Elavil Tab) 75 mg HS PO 01/10/18 21:00 02/09/18 20:59 01/10/18 22:05 75 MG Ergocalciferol (Vitamin D Cap) 50,000 interunit Fr@0900 PO 01/12/18 09:00 02/11/18 08:59 Salmeterol Xinafoate/ Fluticasone (Advair Diskus 250/50 Inh) 1 puff BID INH 01/10/18 21:00 02/09/18 20:59 01/11/18 08:00 1 PUFF Loratadine (Claritin Tab) 10 mg DAILY PRN PO 01/10/18 18:30 02/09/18 18:29 Pantoprazole Sodium (Protonix Tab) 40 mg BID PO 01/10/18 21:00 02/09/18 20:59 01/11/18 08:01 40 MG Pregabalin (Lyrica Cap) 75 mg HS PO 01/10/18 21:00 02/09/18 20:59 01/10/18 22:05 75 MG Temazepam (Restoril Cap) 30 mg HS PO 01/10/18 21:00 02/09/18 20:59 01/10/18 22:08 30 MG Miscellaneous Information (Order Awaiting Action) 1 ea QS N/A 01/11/18 00:00 02/10/18 00:00 Azithromycin (Zithromax Tab) 500 mg QAM PO 01/12/18 09:00 01/15/18 08:59 UNV Albuterol/ Ipratropium (Duoneb) 3 ml Q6R NEB 01/11/18 21:00 02/10/18 20:59 UNV Azithromycin (Zithromax Tab) 500 mg 1729 ONCE PO 01/11/18 17:29 01/11/18 17:30 UNV Albuterol/ Ipratropium (Duoneb) 3 ml 1729 ONCE NEB 01/11/18 17:29 01/11/18 17:30 UNV
[2018-01-11] MEDS: ALBUT/IPRATROP 3MG/0.5MG NEB 3 ML VIAL NEB SCH (18:54)
[2018-01-11] MEDS: PREGABALIN 75 MG CAP PO SCH (21:20)
[2018-01-11] MEDS: TEMAZEPAM 15 MG CAP PO SCH (21:20)
[2018-01-11] MEDS: AMITRIPTYLINE HCL 50 MG TAB PO SCH (21:21)
[2018-01-12 00:01] VITALS: BP 119/72; PULSE 90; TEMP 36.2; O2SAT 90
[2018-01-12] MEDS: ALBUT/IPRATROP 3MG/0.5MG NEB 3 ML VIAL NEB SCH ×3 (01:49→14:22)
[2018-01-12] MEDS: ACETAMINOPHEN 325 MG TAB PO PRN ×2 (06:12→10:10)
[2018-01-12 07:24] VITALS: PULSE 78; O2SAT 93
[2018-01-12 07:36] VITALS: BP 137/73; PULSE 101; TEMP 36.7; O2SAT 93
[2018-01-12] MEDS: [UNRECOGNIZED DRUG - OTHER] SCH ×2 (08:00)
[2018-01-12] MEDS ORDERED: AZITHROMYCIN 250 MG TAB PO SCH (08:00)
[2018-01-12 08:10] VITALS: O2SAT 94
--- NOTE | 2018-01-12 08:55 | ECHOCARDIOGRAM REPORT ---
*NOTICE TO RECEIVING REPUBLICAN AGENCY This information is strictly Confidential and protected under [place] law. [place] law prohibits you from making any further disclosure of this information unless further disclosure is expressly permitted by the written consent of the person to whom it pertains or is authorized by law. A general authorization for the release of medical or other information is not sufficient for this purpose. Hospital accepts no responsibility if the information is made available to any other person, INCLUDING THE PATIENT. Interpretation Summary * Name: FRANK RACHEL Study Date: 01/12/2018 06:49 AM BP: 119/72 mmHg * Patient Location: C.2T\S\S243\S\1 HR: 90 * : 1940 (M/d/yyyy) Gender: Female Height: 64 in * Age: 77 yrs Ethnicity: [place] Weight: 134 lb * Ordering Physician: Desiree Cason * Referring Physician: Valerie Chavez * Performed By: Lisbeth Gallardo RDCS * * Reason For Study: Dyspnea on Exertion * BSA: 1.6 m2 * -- Conclusions -- * Normal LV chamber size and wall thickness. * Normal LV systolic function, EF 55-60%. * No segmental left ventricular wall motion abnormalities are noted. * Grade I diastolic dysfunction. * Mild mitral regurgitation. * Mild tricuspid regurgitation. * Pulmonary hypertension is present with a PASP of 45 mmHg assuming a RA pressure of 3 mmHg. Procedure Details * A complete two-dimensional transthoracic echocardiogram was performed (2D, M-mode, Doppler and color flow Doppler). Left Ventricle * The left ventricle is normal in size. * There is normal left ventricular wall thickness. * Ejection Fraction = 55-60%. * Left ventricular systolic function is normal. * No segmental left ventricular wall motion abnormalities are noted. * The left ventricular wall motion is normal. Right Ventricle * The right ventricular cavity size is normal (basal dimension <4.2 cm in right ventricular apical 4-chamber view). * The right ventricular systolic function is normal as assessed by tricuspid annular plane systolic excursion (TAPSE) (normal >1.5 cm). Atria * The left atrial size is normal. * Right atrial size is normal. * No ASD detected; PFO is not assessed. * Lipomatous hypertrophy of the interatrial septum is noted. Mitral Valve * The mitral valve anatomy is normal. * There is mild mitral regurgitation. Tricuspid Valve * The tricuspid valve anatomy is normal. * There is no tricuspid stenosis. * There is mild tricuspid regurgitation. Aortic Valve * The aortic valve is not well visualized. * No hemodynamically significant valvular aortic stenosis. * There is no significant aortic regurgitation. Pulmonic Valve * The pulmonic valve is not well visualized. Great Vessels * The aortic root is normal size. Pericardium/Pleural * There is no pericardial effusion. Left Ventricular Diastolic Function * Grade I diastolic dysfunction, (abnormal relaxation pattern). MMode 2D Measurements and Calculations IVSd 0.83 cm IVSs 0.99 cm LVIDd 5.1 cm LVIDs 3.5 cm LVPWd 0.73 cm LVPWs 1.4 cm IVS/LVPW 1.1 FS 31.9 % EDV(Teich) 123.9 ml ESV(Teich) 50.0 ml EF(Teich) 59.7 % EDV(cubed) 132.8 ml ESV(cubed) 41.9 ml EF(cubed) 68.4 % % IVS thick 19.7 % % LVPW thick 88.6 % LV mass(C)d 135.3 grams LV mass(C)dI 82.0 grams/m\S\2 LV mass(C)s 130.9 grams LV mass(C)sI 79.3 grams/m\S\2 SV(Teich) 73.9 ml SI(Teich) 44.8 ml/m\S\2 SV(cubed) 90.9 ml SI(cubed) 55.1 ml/m\S\2 Ao root diam 2.8 cm Ao root area 6.0 cm\S\2 ACS 1.9 cm LVAd ap4 24.7 cm\S\2 LVLd ap4 8.2 cm EDV(MOD-sp4) 61.4 ml EDV(sp4-el) 62.7 ml LVAs ap4 13.9 cm\S\2 LVLs ap4 6.5 cm ESV(MOD-sp4) 25.1 ml ESV(sp4-el) 25.4 ml EF(MOD-sp4) 59.2 % EF(sp4-el) 59.4 % LVAd ap2 31.5 cm\S\2 LVLd ap2 8.5 cm EDV(MOD-sp2) 100.4 ml EDV(sp2-el) 98.4 ml LVAs ap2 18.6 cm\S\2 LVLs ap2 6.8 cm ESV(MOD-sp2) 43.9 ml ESV(sp2-el) 43.1 ml EF(MOD-sp2) 56.3 % EF(sp2-el) 56.2 % LVLd %diff 3.7 % EDV(MOD-bp) 79.7 ml LVLs %diff 5.2 % ESV(MOD-bp) 34.0 ml EF(MOD-bp) 57.4 % SV(MOD-sp4) 36.3 ml SI(MOD-sp4) 22.0 ml/m\S\2 SV(MOD-sp2) 56.5 ml SI(MOD-sp2) 34.3 ml/m\S\2 SV(MOD-bp) 45.8 ml SI(MOD-bp) 27.7 ml/m\S\2 SV(sp4-el) 37.3 ml SI(sp4-el) 22.6 ml/m\S\2 SV(sp2-el) 55.3 ml SI(sp2-el) 33.5 ml/m\S\2 Doppler Measurements and Calculations MV E max mauricio 91.7 cm/sec MV A max mauricio 135.8 cm/sec MV E/A 0.68 MV dec time 0.26 sec Ao V2 max 175.1 cm/sec Ao max PG 12.3 mmHg Ao max PG (full) 6.0 mmHg LV V1 max PG 6.3 mmHg LV V1 max 125.1 cm/sec PA V2 max 165.6 cm/sec PA max PG 11.0 mmHg TR max mauricio 325.8 cm/sec
[2018-01-12] MEDS ORDERED: ERGOCALCIFEROL 50,000 INTER.UNIT CAP PO SCH (09:00)
[2018-01-12 09:07] LABS: HEMATOCRIT 28.7 % (37-47); HEMOGLOBIN 9.1 g/dL (12.0-16.0); MEAN CELL VOLUME 88.6 fL (80-100); MEAN CORPUSCULAR HEMOGLOBIN 28.1 pg (25-34); MEAN CORPUSCULAR HGB CONC 31.7 g/dl (32-36); NUCLEATED RED BLOOD CELL ABS 0.11 K/uL (0-0); PLATELET COUNT 186 K/uL (130-400); RED CELL DISTRIBUTION WIDTH CV 27.9 % (11.5-14.5); WHITE BLOOD COUNT 13.65 K/uL (4.8-10.8)
[2018-01-12 09:18] LABS: CALCIUM 8.2 mg/dl (8.5-10.1); CREATININE 1.26 mg/dl (0.60-1.20)
[2018-01-12] MEDS: PANTOprazole SOD 40 MG TAB PO SCH (10:09)
--- NOTE | 2018-01-12 14:54 | Discharge Instructions ---
Discharge Instructions Date of Service January 12, 2018. Admission Reason for Admission: Symptomatic Anemia Discharge Discharge Diagnosis / Problem: symptomatic anemia, copd ex? Discharge Goals Goal(s): Decrease discomfort, Improve function Activity Recommendations Activity Limitations: resume your previous activity . Instructions / Follow-Up Instructions / Follow-Up FOLLOWUP WITH FAMILY DOCTOR DR.MANISHA AHN ON January AT 11:05AM FOLLOWUP WITH HEME/ONCO DR.NILESH AHN SCHEDULED. LAB: CBC AND BMP IN 5-7 DAYS AND FOLLOW RESULTS WITH FAMILY DOCTOR. Current Hospital Diet Patient's current hospital diet: Regular Diet Discharge Diet Recommended Diet: Regular Diet Procedures Procedures Performed: 2 units blood transfusion Pending Studies Studies pending at discharge: no Medical Emergencies . Who to Call and When: Medical Emergencies: If at any time you feel your situation is an emergency, please call 911 immediately. . Non-Emergent Contact Non-Emergency issues call your: Primary Care Provider . . "Provider Documentation" section prepared by Geovanni Ibanez. .
[2018-01-12] MEDS ORDERED: PRD20 PO (14:57)
[2018-01-12] MEDS ORDERED: AZIT500T PO (14:57)
[2018-01-12 15:19] VITALS: BP 137/73; PULSE 101; TEMP 36.7; O2SAT 94
--- NOTE | 2018-01-12 19:21 | Progress Note ---
Internal Med Progress Note Date of Service: January 12, 2018. Provider Documentation: SUBJECTIVE: sitting on the chair comfortably sob improved ambulating fine eating ok no pains want to go home OBJECTIVE: Vital Signs-as noted below Exam: General-alert and oriented. Not in distress ENT-Normal hearing Neck-no neck masses Lungs-b/l diminished breath sounds cta b/l no wheezing no crackles Heart-s1 and s2 heard regular rate and rhythm no murmurs Abdomen-soft bowel sounds present non tender no distension Extremities-no edema no erythema Neuro-alert and awake 'moves extremities Lab data as noted below. ASSESSMENT & PLAN: 77-year-old female with chronic myeloproliferative disorder presents with symptomatic anemia. Received 2 units of irradiated blood . Still complained shortness of breath with exertion. She does admit to some wheezing and a productive cough in the last week. She does have a history of COPD.No wheezing on exam however, breath sounds are somewhat distant. Started on short course of prednisone and azithromycin and much improved today. 1. Symptomatic anemia-secondary to anemia of chronic disease.Hb on presentation 7.2 No acute bleeding is present. s/p Transfusion of 2 units overnight. H stable at 9.1 . The patient will need to follow-up with Dr. Chavez as an outpatient. 2. COPD exacerbation-will begin prednisone 40 daily for 5 days, azithromycin 500 for 3 days, DuoNeb therapy. Home inhalers. Improved. 3. Myeloproliferative disorder/essential thrombocythemia-patient of Dr. Mainor Chavez's. He has held hydroxyurea for this month based on hemoglobin levels. The patient is not on Plavix. anagrelide as per heme/onco 4. Chronic low back pain-stable, continue Elavil, Lyrica in the evenings discharged today Vital Signs: Date Time Temp Pulse Resp B/P (MAP) Pulse Ox O2 Delivery O2 Flow Rate FiO2 01/12/18 15:19 36.7 101 22 94 Room Air 01/12/18 08:10 94 Room Air 01/12/18 07:36 36.7 101 22 137/73 (94) 93 Room Air 01/12/18 07:24 78 16 93 Room Air 01/12/18 00:30 Room Air 01/12/18 00:01 36.2 90 18 119/72 (88) 90 Room Air 01/11/18 20:30 94 Room Air Lab Results: Results Past 24 Hours Test 01/12/18 07:59 Range/Units White Blood Count 13.65 4.8-10.8 K/uL Red Blood Count 3.24 4.2-5.4 M/uL Hemoglobin 9.1 12.0-16.0 g/dL Hematocrit 28.7 37-47 % Mean Corpuscular Volume 88.6 80-100 fL Mean Corpuscular Hemoglobin 28.1 25-34 pg Mean Corpuscular Hemoglobin Concent 31.7 32-36 g/dl RDW Standard Deviation 89.0 36.4-46.3 fL RDW Coefficient of Variation 27.9 11.5-14.5 % Platelet Count 186 130-400 K/uL Nucleated RBC Absolute Count (auto) 0.11 0-0 K/uL Nucleated Red Blood Cells % 0.8 % Platelet Estimate NORMAL Sodium Level 145 136-145 mmol/L Potassium Level 5.0 3.5-5.1 mmol/L Chloride Level 115 98-107 mmol/L Carbon Dioxide Level 22 21-32 mmol/L Anion Gap 8.0 3-11 mmol/L Blood Urea Nitrogen 15 7-18 mg/dl Creatinine 1.26 0.60-1.20 mg/dl Est Creatinine Clear Calc Drug Dose 33.3 ml/min Estimated GFR () 48.3 Estimated GFR (Non- 41.6 BUN/Creatinine Ratio 11.7 10-20 Random Glucose 136 70-99 mg/dl Calcium Level 8.2 8.5-10.1 mg/dl
--- NOTE | 2018-01-12 19:49 | Discharge Summary ---
Discharge Summary Date of Service January 12, 2018. Discharge Summary Admission Date: January 10, 2018 at 17:28 Discharge Date: January 12, 2018 Discharge Disposition: Home Principal Diagnosis: SYMPTOMATIC ANEMIA COPD EX? 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 Findings suggest emphysema with bronchial wall thickening/bronchitis. No focal infiltrate to suggest pneumonia. Minimal left basilar atelectasis may also be present. ECHO: Normal LV chamber size and wall thickness. * Normal LV systolic function, EF 55-60%. * No segmental left ventricular wall motion abnormalities are noted. * Grade I diastolic dysfunction. * Mild mitral regurgitation. * Mild tricuspid regurgitation. * Pulmonary hypertension is present with a PASP of 45 mmHg assuming a RA pressure of 3 mmHg. Medication Reconciliation New Medications: Azithromycin (Zithromax) 500 Mg Tab 500 MG PO DAILY for 1 Day, #1 TAB Prednisone (Prednisone) 20 Mg Tab 40 MG PO DAILY for 3 Days, #6 TABS Continued Medications: Acetaminophen (Tylenol) 500 Mg Tab 500 MG PO Q4H PRN for Pain, TAB Albuterol (Ventolin Hfa) 60 Puffs/5400 Mcg Aers 2 PUFFS INH Q6H PRN for Wheezing Amitriptyline Hcl (Elavil) 75 Mg Tab 75 MG PO HS, TAB Anagrelide Hcl (Anagrelide Hydrochloride) 1 Mg Cap 1 MG PO BID Ergocalciferol (Vitamin D 42146 Unit) 50,000 Unit Cap 68631 UNIT PO WK, CAP TAKE THIS MED EVERY MONDAY Fluticasone Prop/Salmeterol (Advair Diskus 250/50 60 Dose) 1 Ea Aerp 1 PUFF INH BID, INHALER Loratadine (Claritin) 10 Mg Cap 10 MG PO DAILY PRN for Allergy Symptoms Ondansetron Hcl (Zofran) 8 Mg Tab 8 MG PO TID PRN for Nausea, TAB Pantoprazole (Protonix) 40 Mg Tab 40 MG PO BID, TAB Pregabalin (Lyrica) 75 Mg Cap 75 MG PO HS, CAP Rizatriptan Benzoate (Rizatriptan Benzoate) 10 Mg Tab 10 MG PO UD PRN for Migraine TAKE MD DIRECTS Temazepam (Restoril) 30 Mg Cap 30 MG PO HS, CAP Discontinued Medications: Hydroxyurea (Hydrea Cap) 500 Mg Cap 500 MG PO Q2D, CAP 01/10/18 : THIS MED ON HOLD UNTIL END OF THIS MONTH. Admission Information HPI (per Admitting provider): The patient is a 77-year-old female with myeloproliferative disorder who presents to the ER with shortness of breath 1 week. She notes she is only short of breath on exertion and denies any chest pain. She is been dealing with chronic anemia secondary to her myeloproliferative disorder. She had some outpatient blood work that showed a hemoglobin of 6.5 and was referred to the emergency room. She notes a chronic cough with no changes that is productive of yellow sputum. She denies any fevers or chills. She has some chronic diarrhea and some nausea. She has a history of GI bleed but denies any blood in her stool. Review of systems also reveals some lightheadedness and dizziness as well as chronic abdominal discomfort. She is tolerating p.o. and is in good spirits. Physical Exam (per Admitting): General Appearance: WD/WN, no apparent distress, + pertinent finding (No conversational dyspnea) Head: normocephalic, atraumatic Eyes: normal inspection, PERRL, sclerae normal ENT: hearing grossly normal, + pertinent finding (Dentures in place) Neck: supple, no JVD, trachea midline Respiratory/Chest: lungs clear, normal breath sounds, no respiratory distress, no accessory muscle use Cardiovascular: regular rate, rhythm, no edema, no gallop, no JVD, no murmur , normal peripheral pulses Abdomen/GI: normal bowel sounds, soft, no organomegaly, + tenderness ( Generalized tenderness) Back: normal inspection Extremities/Musculoskelatal: normal inspection, no pedal edema, normal range of motion Neurologic/Psych: molder offbearer II-XII nml as tested, no motor/sensory deficits, alert , normal mood/affect, oriented x 3 Skin: normal color, warm/dry, no rash Hospital Course 77-year-old female with chronic myeloproliferative disorder presents with symptomatic anemia. Received 2 units of irradiated blood . Still complained shortness of breath with exertion. She does admit to some wheezing and a productive cough in the last week. She does have a history of COPD.No wheezing on exam however, breath sounds are somewhat distant. Started on short course of prednisone and azithromycin and much improved today. 1. Symptomatic anemia-secondary to anemia of chronic disease.Hb on presentation 7.2 No acute bleeding is present. s/p Transfusion of 2 units overnight. H stable at 9.1 . The patient will need to follow-up with Dr. Ahn as an outpatient. 2. COPD exacerbation-will begin prednisone 40 daily for 5 days, azithromycin 500 for 3 days, DuoNeb therapy. Home inhalers. Improved. 3. Myeloproliferative disorder/essential thrombocythemia-patient of Dr. Mainor Ahn's. He has held hydroxyurea for this month based on hemoglobin levels. The patient is not on Plavix. anagrelide as per heme/onco 4. Chronic low back pain-stable, continue Elavil, Lyrica in the evenings discharged today Total time spent on discharge = 35MINUTES This includes examination of the patient, discharge planning, medication reconciliation, and communication with other providers. Discharge Instructions Discharge Instructions Date of Service January 12, 2018. Admission Reason for Admission: Symptomatic Anemia Discharge Discharge Diagnosis / Problem: symptomatic anemia, copd ex? Discharge Goals Goal(s): Decrease discomfort, Improve function Activity Recommendations Activity Limitations: resume your previous activity . Instructions / Follow-Up Instructions / Follow-Up FOLLOWUP WITH FAMILY DOCTOR DR.MANISHA AHN ON January AT 11:05AM FOLLOWUP WITH HEME/ONCO DR.NILESH AHN SCHEDULED. LAB: CBC AND BMP IN 5-7 DAYS AND FOLLOW RESULTS WITH FAMILY DOCTOR. Current Hospital Diet Patient's current hospital diet: Regular Diet Discharge Diet Recommended Diet: Regular Diet Procedures Procedures Performed: 2 units blood transfusion Pending Studies Studies pending at discharge: no Medical Emergencies . Who to Call and When: Medical Emergencies: If at any time you feel your situation is an emergency, please call 911 immediately. . Non-Emergent Contact Non-Emergency issues call your: Primary Care Provider . .
== END 2018-01-12 16:15 | disposition home or self-care (01) | DRG 812 ==
LOC: C.EDB 15:22 → UNDOADMIN 17:28 → C.2T 17:28 → ENRESERV 18:12 → C.MS4W 01-11 19:30
PROVIDERS: ADMIT Hospitalist; ATTEND Internal Medicine
DX: D63.8 Anemia in other chronic diseases classified elsewhere (principal); C94.6 Myelodysplastic disease, not elsewhere classified; Z80.9 Family history of malignant neoplasm, unspecified; Z87.891 Personal history of nicotine dependence; D69.6 Thrombocytopenia, unspecified; M54.5 Low back pain

== ENCOUNTER 2019-01-30 13:24 | Inpatient (IN) ==
--- OUTSIDE RECORDS SUMMARY | 2019-01-30 13:29 | External Medical Summary | Continuity of Care Document ---
:1940 Author Name Soo Callahan, Provider Address Unavailable Unavailable , Care Team Providers Name Role Phone Unavailable Unavailable Unavailable PCP, UNKNOWN Unavailable Unavailable Problems Active medical history not documented Allergies and Adverse Reactions Allergy history not documented Medications Medications not documented Procedures Procedures not documented Immunizations Immunizations not documented Plan of Treatment Planned Observations Planned Goals not documented Results No Known Results Results not documented
[2019-01-30] MEDS ORDERED: SODIUM CHLORIDE 0.9% 1000ML 1,000 ML IV SCH (13:38)
[2019-01-30] MEDS ORDERED: ACETAMINOPHEN 500 MG TAB PO STA (14:16)
[2019-01-30 14:28] LABS: Calcium 9.4 mg/dl (8.5-10.1); Creatinine Clr Calc Pharmacy 27.9 ml/min; Est GFR (African American) 46.2; Est GFR (Non-African American) 39.8; Magnesium 1.8 mg/dl (1.8-2.4); Potassium 4.3 mmol/L (3.5-5.1)
[2019-01-30 14:31] LABS: Albumin Globulin Ratio 1.2 (0.9-2); Bilirubin,Total 0.3 mg/dl (0.2-1); Globulin 3.4 gm/dl (2.5-4.0); Total Protein 7.4 gm/dl (6.4-8.2)
[2019-01-30 14:32] LABS: Hematocrit (blood only) 30.5 % (37-47); Hemoglobin 9.5 g/dL (12.0-16.0); Mean Corpuscular Hgb Conc 31.1 g/dL (32-36); Mean Corpuscular Volume 104.5 fL (80-100); Mean Platelet Volume 12.3 fL (7.4-10.4); Nucleated RBC % (auto) 0.6 %; Platelet Count 1122 K/uL (130-400); RDW Coefficient of Variation 30.5 % (11.5-14.5); Red Blood Count 2.92 M/uL (4.2-5.4); White Blood Count 17.06 K/uL (4.8-10.8)
[2019-01-30 14:51] LABS: Giant Platelets 1+; Macrocytosis Present; Platelet Estimate Increased (Normal); Poikilocytosis Present
[2019-01-30 14:54] LABS: ALC (manual) 2.52 K/uL (1.2-3.4); Basophils # (manual) 0.73 K/uL (0-0.2); Basophils % (manual) 4.3 %; Blast # (manual) 0.15 K/uL (0-0); Blast Cells % (manual) 0.9 %; Eosinophils # (manual) 0.29 K/uL (0-0.5); Eosinophils % (manual) 1.7 %; Lymphocytes # (manual) 2.52 K/uL (1.2-3.4); Lymphocytes % (manual) 14.8 %; Metamyelocytes # (manual) 0.15 K/uL (0-0); Metamyelocytes % (manual) 0.9 %; Monocytes # (manual) 1.33 K/uL (0.11-0.59); Monocytes % (manual) 7.8 %; Neutrophils % (manual) 69.6 %
[2019-01-30 15:11] LABS: Appearance Urine Clear (Clear); Bilirubin Urine Negative (Negative); Blood Urine Negative (Negative); Color Urine Yellow; Glucose Urine UA Negative (Negative); Ketones Urine Negative (Negative); Leukocyte Esterase Urine Negative (Negative); Nitrite Urine Negative (Negative); Protein Urine Negative (Negative); Specific Gravity Urine 1.021 (1.000-1.030); Urobilinogen Urine Negative (Negative)
--- NOTE | 2019-01-30 15:18 | Emergency Department Note ---
Entered by Joann Loaiza acting as a scribe for Ezio Carcamo MD History of Present Illness General Chief complaint: Weakness Stated complaint: STOMACH, BOWELS,OVERALL WEAKNESS Time Seen by Provider: 01/30/19 13:36 Source: patient History of Present Illness Provider complaint: generalized weakness Onset (ago): day(s) (over the last several days) Location: left and right Maximum Pain Intensity: 8 Quality: + other (weakness) Associated symptoms: + nausea/vomiting and + other (diarrhea, abdominal pain); no fever/chills The patient is a 78 year old female who presents to the Emergency Department with complaints of generalized weakness over the last several days. She states that she had 3 days of diarrhea but denies having blood in it. She also reports having intermittent vomiting that also did not have blood in it. The patient states that she has had similar episodes in the past that went away with Imodium. She states that she took Imodium for her symptoms but that she is still having them. She reports having a burning abdominal pain that she rates at a 7/10. She denies having fevers. She reports a history of PUD, breast cancer, right-sided mastectomy, COPD, a cholecystectomy, and IBS. She states that she smoked a pack of cigarettes daily for the last 50 years and states that she vapes now. The patient denies alcohol use. Home Medications Home Medications Medication Instructions Recorded Confirmed Type Lyrica 75 mg PO HS 06/06/18 01/30/19 History albuterol sulfate [Ventolin HFA] 2 puff INHALATION QID PRN 06/06/18 01/30/19 History amitriptyline 75 mg PO HS 06/06/18 01/30/19 History anagrelide 1 mg PO Q OTHER DAY 06/06/18 01/30/19 History bismuth subsalicylate 30 ml PO Q4 PRN 06/06/18 01/30/19 History [Pepto-Bismol] ergocalciferol (vitamin D2) 50,000 unit PO WK 06/06/18 01/30/19 History [Vitamin D2] fluticasone propion-salmeterol 1 inh INHALATION BID 06/06/18 01/30/19 History [Advair Diskus] hydroxyurea [Hydrea] 500 mg PO Q OTHER DAY 06/06/18 01/30/19 History levalbuterol HCl [Xopenex] 1.25 mg INHALATION TID PRN 06/06/18 01/30/19 History loratadine 10 mg PO DAILY PRN MDD allergies 06/06/18 01/30/19 History ondansetron HCl [Zofran] 8 mg PO TID PRN 06/06/18 01/30/19 History pantoprazole [Protonix] 40 mg PO BID 06/06/18 01/30/19 History rizatriptan 10 mg PO UD PRN 06/06/18 01/30/19 History temazepam [Restoril] 30 mg PO HS PRN 06/06/18 01/30/19 History trazodone 50 mg PO HS 06/06/18 01/30/19 History acetaminophen [Tylenol Extra 500 mg PO Q4H PRN 01/30/19 01/30/19 History Strength] olopatadine [Patanol] 1 drp OPHTHALMIC (EYE) BID PRN 01/30/19 01/30/19 History tiotropium bromide [Spiriva with 1 cap INHALATION DAILY 01/30/19 01/30/19 History HandiHaler] Allergies Allergy/AdvReac Type Severity Reaction Status Date / Time latex Allergy Unknown HIVES Verified 01/30/19 14:15 No Known Drug Allergies Allergy Unknown . Verified 10/09/18 11:09 Iodinated Contrast- Oral and Allergy Diarrhea Verified 01/30/19 14:15 IV Dye Lobster Allergy Severe HIVES Uncoded 01/30/19 14:15 METALS Allergy Mild HIVES/ITCHI Uncoded 01/30/19 14:15 NESS Past Med/Surg History Medical History CKD (chronic kidney disease), stage III (Chronic) IBS (irritable bowel syndrome) (Chronic) Diarrhea predominant ; follows with GI Myelodysplastic syndrome (Chronic) H/O: hysterectomy (Chronic) S/P ORIF (open reduction internal fixation) fracture (Chronic) History of peptic ulcer disease (Chronic) History of breast cancer (Chronic) Anemia (Chronic) History of MRSA infection (Chronic) "left hip wound" COPD (chronic obstructive pulmonary disease) (Chronic) Essential thrombocythemia (Chronic) Leukocytosis (Chronic) Fracture of radial neck, left, closed (Resolved) 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) COPD exacerbation (Resolved) Thrombocytosis (Chronic) Myelodysplastic syndrome (Chronic) Surgical History H/O mastectomy (Chronic) right side History of cholecystectomy (Chronic) Status post hysterectomy (Chronic) Status post cholecystectomy (Chronic) Status post mastectomy (Chronic) "modified right mastectomy 1990" Status post total hip replacement, left (Chronic) Family History Other Family history non-contributory Social History Preferred Language: Bulgarian Communication Ability: Effective Beliefs That Will Affect Care: None Current Living Situation: Family Feels Safe at Home: Yes Smoking Status: Former smoker Tobacco Type: e-cigarettes Hx Alcohol Use: No Hx Substance Use: No Review of Systems See HPI for pertinent positives & negatives. and A total of 10 systems reviewed and were otherwise negative Physical Exam Vital Signs Vital Signs - 24 hr 01/30/19 13:30 01/30/19 13:38 01/30/19 13:42 Temperature 36.8 C Temperature Source Oral Sepsis Recent Fever Within 48 Hours No Sepsis Action Taken by Nursing No Action Required Pulse Rate 97 H 93 H 92 H Pulse Rate [Right Finger] Pulse Rate from SpO2 Sensor 93 H 92 H Respiratory Rate 22 22 17 Respiratory Effort / Characteristics Non-Labored Spontaneous Respiratory Depth Normal Respiratory Pattern Blood Pressure 76/51 L 98/55 L 94/44 L Blood Pressure [Left Arm] Blood Pressure Mean 59 69 60 Blood Pressure Mean [Left Arm] Blood Pressure Position Sitting Blood Pressure Position [Left Arm] Pulse Oximetry 93 97 95 Oxygen Delivery Method Room Air Room Air Room Air 01/30/19 13:45 01/30/19 13:50 01/30/19 14:00 Temperature Temperature Source Sepsis Recent Fever Within 48 Hours Sepsis Action Taken by Nursing Pulse Rate 93 H 93 H 86 Pulse Rate [Right Finger] Pulse Rate from SpO2 Sensor 93 H 93 H 86 Respiratory Rate 20 23 17 Respiratory Effort / Characteristics Respiratory Depth Respiratory Pattern Blood Pressure 72/62 L Blood Pressure [Left Arm] Blood Pressure Mean 65 Blood Pressure Mean [Left Arm] Blood Pressure Position Blood Pressure Position [Left Arm] Pulse Oximetry 94 94 95 Oxygen Delivery Method Room Air Room Air Room Air 01/30/19 14:01 01/30/19 14:04 01/30/19 15:26 Temperature Temperature Source Sepsis Recent Fever Within 48 Hours Sepsis Action Taken by Nursing Pulse Rate 88 Pulse Rate [Right Finger] 90 Pulse Rate from SpO2 Sensor 89 Respiratory Rate 23 18 Respiratory Effort / Characteristics Non-Labored Spontaneous Respiratory Depth Normal Respiratory Pattern Regular Blood Pressure 91/56 L Blood Pressure [Left Arm] 91/57 L Blood Pressure Mean 67 Blood Pressure Mean [Left Arm] 68 Blood Pressure Position Blood Pressure Position [Left Arm] Lying Pulse Oximetry 94 94 94 Oxygen Delivery Method Room Air Room Air Room Air 01/30/19 17:00 Temperature Temperature Source Sepsis Recent Fever Within 48 Hours Sepsis Action Taken by Nursing Pulse Rate Pulse Rate [Right Finger] 93 H Pulse Rate from SpO2 Sensor Respiratory Rate 18 Respiratory Effort / Characteristics Non-Labored Spontaneous Respiratory Depth Normal Respiratory Pattern Regular Blood Pressure Blood Pressure [Left Arm] 112/68 Blood Pressure Mean Blood Pressure Mean [Left Arm] 82 Blood Pressure Position Blood Pressure Position [Left Arm] Lying Pulse Oximetry 94 Oxygen Delivery Method Room Air GENERAL: Patient is in no acute distress. HEENT: No acute trauma, normocephalic atraumatic, mucous membranes dry, no nasal congestion, no scleral icterus. NECK: No stridor, no adenopathy, no meningismus, trachea is midline. LUNGS: Clear to auscultation bilaterally, no wheeze, no rhonchi, breath sounds equal. HEART: Without murmurs gallops or rubs, regular rate and rhythm. ABDOMEN: Soft, mild diffuse tenderness, bowel sounds positive, no hernias, no peritonitis. EXTREMITIES: No cyanosis or edema, full range of motion of all the joints without pain or difficulty, no signs for acute trauma. NEUROLOGIC: Oriented x 3, no acute motor or sensory deficits, no focal weakness. SKIN: No rash, no jaundice, no diaphoresis. Pale. Course 1339: The patient was evaluated by Dr. Grove-Resident. 1417: The patient was evaluated in room C11B. A history and physical were performed. 1550: Dr. Grove updated the patient who verbalized agreement and understanding of the treatment plan. 1558: Dr. Grove discussed the patient's case with Roberta Hsu, admitting to Dr. Grant, who will evaluate the patient for further m anagement. Consultations Consultation #1: Roberta Hsu Time: 15:58 Administered Medications Discontinued Medications Acetaminophen (Tylenol) 1,000 mg PO NOW STA Stop: 01/30/19 14:17 Last Admin: 01/30/19 15:19 Dose: 1,000 mg Documented by: [id number] Sodium Chloride (Nss 1000ml) 1,000 mls @ 999 mls/hr IV .Q1H1M SHORTY Stop: 01/30/19 14:38 Last Infusion: 01/30/19 15:29 Dose: 0 mls/hr Documented by: [id number] Admin: 01/30/19 14:04 Dose: 999 mls/hr Documented by: [id number] Sodium Chloride (Nss) 500 mls @ 999 mls/hr IV .Q31M ONE Stop: 01/30/19 16:15 Last Infusion: 01/30/19 16:14 Dose: 0 mls/hr Documented by: [id number] Admin: 01/30/19 15:42 Dose: 999 mls/hr Documented by: [id number] Tramadol HCl (Ultram) 50 mg PO NOW STA Stop: 01/30/19 15:32 Last Admin: 01/30/19 15:41 Dose: 50 mg Documented by: [id number] Medical Decision Making Differential Diagnosis Differentials include dehydration, renal failure, DEISY, electrolyte imbalance, anemia, GI bleed, food-borne or viral illness, IBS flare, UTI, and sepsis. Medical Records Attestation: I reviewed the patient's medical records. Home Medications Current Medication List: was personally reviewed by me Laboratory Data Attestation: I reviewed the patient's lab results. Result diagrams: 01/30/19 13:56 01/30/19 13:56 Lab Results 01/30/19 01/30/19 01/30/19 Range/Units 13:56 13:56 13:56 WBC 17.06 H (4.8-10.8) K/uL RBC 2.92 L (4.2-5.4) M/uL Hgb 9.5 L (12.0-16.0) g/dL Hct 30.5 L (37-47) % MCV 104.5 H (80-100) fL MCH 32.5 (25-34) pg MCHC 31.1 L (32-36) g/dL RDW Coeff of Radha 30.5 H (11.5-14.5) % Plt Count 1122 H* (130-400) K/uL MPV 12.3 H (7.4-10.4) fL Absolute Nucleated RBC 0.10 H (0-0) K/uL Nucleated RBC % (auto) 0.6 % Neutrophils % (Manual) 69.6 % Lymphocytes % (Manual) 14.8 % Monocytes % (Manual) 7.8 % Eosinophils % (Manual) 1.7 % Basophils % (Manual) 4.3 % Metamyelocytes % (Man) 0.9 % Blast Cells % (Manual) 0.9 % Neutrophils # (Manual) 11.87 H (1.4-6.5) K/uL Total Absolute Neuts 11.87 H (1.4-6.5) K/uL Lymphocytes # (Manual) 2.52 (1.2-3.4) K/uL Total Abs Lymphocytes 2.52 (1.2-3.4) K/uL Monocytes # (Manual) 1.33 H (0.11-0.59) K/uL Eosinophils # (Manual) 0.29 (0-0.5) K/uL Basophils # (Manual) 0.73 H (0-0.2) K/uL Metamyelocytes # (Man) 0.15 H (0-0) K/uL Blast Cells # (Man) 0.15 H (0-0) K/uL Platelet Estimate Increased H (Normal) Giant Platelets 1+ Poikilocytosis Present Macrocytosis Present Sodium 140 (136-145) mmol/L Potassium 4.3 (3.5-5.1) mmol/L Chloride 110 H (98-107) mmol/L Carbon Dioxide 22 (21-32) mmol/L Anion Gap 8.0 (3-11) BUN 17 (7-18) mg/dl Creatinine 1.30 H (0.6-1.2) mg/dl Est Cr Clr Drug Dosing 27.9 ml/min Est GFR ( Amer) 46.2 Est GFR (Non-Af Amer) 39.8 BUN/Creatinine Ratio 13.0 (10-20) Glucose 102 H (70-99) mg/dl Lactate (0.4-2.0) mmol/L Calcium 9.4 (8.5-10.1) mg/dl Magnesium 1.8 (1.8-2.4) mg/dl Total Bilirubin 0.3 (0.2-1) mg/dl AST 15 (15-37) U/L ALT 16 (12-78) U/L Alkaline Phosphatase 61 (45-117) U/L Total Protein 7.4 (6.4-8.2) gm/dl Albumin 4.0 (3.4-5.0) gm/dl Globulin 3.4 (2.5-4.0) gm/dl Albumin/Globulin Ratio 1.2 (0.9-2) Lipase 70 L (73-393) U/L Urine Color Yellow Urine Appearance Clear (Clear) Urine pH 5.0 (4.5-7.5) Ur Specific [place] 1.021 (1.000-1.030) Urine Protein Negative (Negative) Urine Glucose (UA) Negative (Negative) Urine Ketones Negative (Negative) Urine Blood Negative (Negative) Urine Nitrite Negative (Negative) Urine Bilirubin Negative (Negative) Urine Urobilinogen Negative (Negative) Ur Leukocyte Esterase Negative (Negative) 01/30/19 Range/Units 15:18 WBC (4.8-10.8) K/uL RBC (4.2-5.4) M/uL Hgb (12.0-16.0) g/dL Hct (37-47) % MCV (80-100) fL MCH (25-34) pg MCHC (32-36) g/dL RDW Coeff of Radha (11.5-14.5) % Plt Count (130-400) K/uL MPV (7.4-10.4) fL Absolute Nucleated RBC (0-0) K/uL Nucleated RBC % (auto) % Neutrophils % (Manual) % Lymphocytes % (Manual) % Monocytes % (Manual) % Eosinophils % (Manual) % Basophils % (Manual) % Metamyelocytes % (Man) % Blast Cells % (Manual) % Neutrophils # (Manual) (1.4-6.5) K/uL Total Absolute Neuts (1.4-6.5) K/uL Lymphocytes # (Manual) (1.2-3.4) K/uL Total Abs Lymphocytes (1.2-3.4) K/uL Monocytes # (Manual) (0.11-0.59) K/uL Eosinophils # (Manual) (0-0.5) K/uL Basophils # (Manual) (0-0.2) K/uL Metamyelocytes # (Man) (0-0) K/uL Blast Cells # (Man) (0-0) K/uL Platelet Estimate (Normal) Giant Platelets Poikilocytosis Macrocytosis Sodium (136-145) mmol/L Potassium (3.5-5.1) mmol/L Chloride (98-107) mmol/L Carbon Dioxide (21-32) mmol/L Anion Gap (3-11) BUN (7-18) mg/dl Creatinine (0.6-1.2) mg/dl Est Cr Clr Drug Dosing ml/min Est GFR ( Amer) Est GFR (Non-Af Amer) BUN/Creatinine Ratio (10-20) Glucose (70-99) mg/dl Lactate 1.3 (0.4-2.0) mmol/L Calcium (8.5-10.1) mg/dl Magnesium (1.8-2.4) mg/dl Total Bilirubin (0.2-1) mg/dl AST (15-37) U/L ALT (12-78) U/L Alkaline Phosphatase (45-117) U/L Total Protein (6.4-8.2) gm/dl Albumin (3.4-5.0) gm/dl Globulin (2.5-4.0) gm/dl Albumin/Globulin Ratio (0.9-2) Lipase (73-393) U/L Urine Color Urine Appearance (Clear) Urine pH (4.5-7.5) Ur Specific [place] (1.000-1.030) Urine Protein (Negative) Urine Glucose (UA) (Negative) Urine Ketones (Negative) Urine Blood (Negative) Urine Nitrite (Negative) Urine Bilirubin (Negative) Urine Urobilinogen (Negative) Ur Leukocyte Esterase (Negative) ECG Data Attestation: I personally reviewed and interpreted this ECG as follows: Indication: weakness Rate (beats per minute): 85 Rhythm: normal sinus Findings: + RBBB (incomplete ); no PVC and no ST elevation Blood Pressure Blood Pressure Findings: Low blood pressure Blood Pressure Disposition: further management by hospitalist JHOANA Narrative There is a higher white blood cell count at 17, this is baseline for the patient. The patient is anemic but this is also baseline for her. She has a higher platelet count, also normal for her based on previous testing. Creatinine is elevated at 1.3, this is consistent with some acute kidney injury and dehydration. Lactic acid level was not elevated making severe sepsis less likely. No elevation to the LFTs. The lipase was normal. Urinalysis did not show infection. EKG showed a sinus rhythm, no acute ischemia. On exam, the patient was pale and dehydrated, she was somewhat hypotensive. The patient received IV Tylenol for pain, IV saline for hydration, she received a total of 1.5 L. She eventually received an oral tramadol for additional pain control. The patient presents with nausea, vomiting diarrhea and some abdominal pain. She has a history of similar symptoms. Work-up does suggest acute kidney injury and dehydration. Given her hypotension upon presentation, given her complicated past history, I do think a hospital stay is warranted. The true cause for her entire presentation is not clear. Case management has been involved. The patient is aware of all her findings, the hospitalist was consulted. Impression & Plan Hypotension, Dehydration, DEISY (acute kidney injury), Weakness, Nausea, vomiting, and diarrhea Discharge Plan Visit Data Chief Complaint: Weakness Stated Complaint: STOMACH, BOWELS,OVERALL WEAKNESS ED Provider: Ezio Carcamo ED Midlevel Provider: Rodolfo Grove Discharge Problem: Hypotension, Dehydration, DEISY (acute kidney injury), Weakness, Nausea, vomiting, and diarrhea Patient Disposition: Being Evaluated by Hospitalist Discharge Problem: Hypotension Qualifiers: Hypotension type: unspecified hypotension type Qualified Code(s): I95.9 - Hypotension, unspecified The scribe's documentation has been prepared under my direction and personally reviewed by me in its entirety. I confirm that the note above accurately reflects all work, treatment, procedures, and medical decision making performed by me.
--- NOTE | 2019-01-30 15:19 | Emergency Department Note ---
ED Visit Note I, Rodolfo Grove, PGY-2, saw and assisted in the care of this patient with Dr. Carcamo. . Resident Activity Tracking Resident Involvement: Resident Care Provided Care Provided: Adult ED
[2019-01-30] MEDS ORDERED: TRAMADOL HCL 50 MG TABLET PO STA (15:31)
[2019-01-30] MEDS ORDERED: SODIUM CHLORIDE 0.9% 500 ML IV ONE (15:45)
--- NOTE | 2019-01-30 17:01 | History & Physical Report ---
Date of Service January 30, 2019 Assessment & Plan (1) Nausea, vomiting, and diarrhea: (2) Abdominal pain: Pt presented to ER with c/o N/V/D 4 days ago which has since resolved, with continued abdominal discomfort. No fever/chills, hematemesis, melena, hematochezia. DDX: viral gastroenteritis, IBS, infectious diarrhea No current N/V/D -In ER received 1500ml NSS, Acetaminophen, tramadol -pending CT abd/pelvis -IVF -if recurrent diarrhea obtain c-diff, stool cultures -monitor CBC, BMP (3) Dehydration: (4) Hypotension: (5) Weakness: Pt with hx lower BP's with SBPs 90's-116 normally In ER BP: 76/51. Given 1500ml NSS and BP 91/57. No dizziness or syncope Pt dehydrated. Weakness probable secondary to dehydration and illness -IVF -PT/OT eval (6) IBS (irritable bowel syndrome): Hx IBS - diarrhea predominant. Follows with [facility] -no further diarrhea, will hold on Imodium and monitor (7) Myelodysplastic syndrome: (8) Essential thrombocythemia: Follows with Dr Chavez - heme/oncology. Hx med non-compliance. WBC: 17 (baseline 19), H/H:9.5/30 (baseline Hgb: 8-9), Plt: 1122 (baseline ~967). blast cells noted. -spoke with [facility] heme/oncology - Dr Chavez about blast on CBC, reports no acute concern with pt's long standing history of myelodysplastic syndrome. Recommends continuing pt's hydrea, anagrelide -continue hydrea, anagrelide -monitor CBC (9) CKD (chronic kidney disease), stage III: Cr: 1.3. Baseline 1.1 -monitor CBC -avoid nephrotoxic agents when possible (10) COPD (chronic obstructive pulmonary disease): No SOB, wheezing -Continue home inhalers, continue duoneb prn DVT Prophylaxis -SCDs Full Code as per discussion with pt Follows with Dr Valerie Chavez for routine care Pt was seen with Dr Grant. See addendum History of Present Illness Chief Complaint: Abdominal pain Primary Care Provider: Valerie Chavez MD Pt is 78 y/o F with PMH IBS, GERD, PUD, CKD III, COPD, myelodysplastic syn drome, thrombocythemia, chronic anemia, h/o breast CA s/p chemo and mastectomy presented to ER with complaint of abdominal discomfort x 4 days. Patient states 4 days ago started with nausea, vomiting, diarrhea. States he vomited 2-3 times and had 6-7 episodes of diarrhea 4 days ago. No further vomiting or diarrhea has occurred since. Patient has been taking Pepto-Bismol and Imodium. Reports history of chronic intermittent diarrhea with IBS in which she takes Imodium and Pepto-Bismol regularly. c/o diffuse abdominal burning and soreness. Patient states his been feeling weak the past couple of days. She reports decreased appetite and has had decreased oral intake. Denies fever/chills, diaphoresis, melena, hematochezia, hematemesis, BALL, dizziness, syncope, vision changes, neck pain, CP, SOB, orthopnea, palpitations, cough, sore throat, choking, otalgia, rhinorrhea, paresthesias, extremity edema, rashes, urinary symptoms. Denies recent antibiotic use, recent travel, ill contacts. Allergies Allergy/AdvReac Type Severity Reaction Status Date / Time latex Allergy Unknown HIVES Verified 01/30/19 14:15 No Known Drug Allergies Allergy Unknown . Verified 10/09/18 11:09 Iodinated Contrast- Oral and Allergy Diarrhea Verified 01/30/19 14:15 IV Dye Lobster Allergy Severe HIVES Uncoded 01/30/19 14:15 METALS Allergy Mild HIVES/ITCHI Uncoded 01/30/19 14:15 NESS Home Medications Home Medications Medication Instructions Recorded Confirmed Type Lyrica 75 mg PO HS 06/06/18 01/30/19 History albuterol sulfate [Ventolin HFA] 2 puff INHALATION QID PRN 06/06/18 01/30/19 History amitriptyline 75 mg PO HS 06/06/18 01/30/19 History anagrelide 1 mg PO Q OTHER DAY 06/06/18 01/30/19 History bismuth subsalicylate 30 ml PO Q4 PRN 06/06/18 01/30/19 History [Pepto-Bismol] ergocalciferol (vitamin D2) 50,000 unit PO WK 06/06/18 01/30/19 History [Vitamin D2] fluticasone propion-salmeterol 1 inh INHALATION BID 06/06/18 01/30/19 History [Advair Diskus] hydroxyurea [Hydrea] 500 mg PO Q OTHER DAY 06/06/18 01/30/19 History levalbuterol HCl [Xopenex] 1.25 mg INHALATION TID PRN 06/06/18 01/30/19 History loratadine 10 mg PO DAILY PRN MDD allergies 06/06/18 01/30/19 History ondansetron HCl [Zofran] 8 mg PO TID PRN 06/06/18 01/30/19 History pantoprazole [Protonix] 40 mg PO BID 06/06/18 01/30/19 History rizatriptan 10 mg PO UD PRN 06/06/18 01/30/19 History temazepam [Restoril] 30 mg PO HS PRN 06/06/18 01/30/19 History trazodone 50 mg PO HS 06/06/18 01/30/19 History acetaminophen [Tylenol Extra 500 mg PO Q4H PRN 01/30/19 01/30/19 History Strength] olopatadine [Patanol] 1 drp OPHTHALMIC (EYE) BID PRN 01/30/19 01/30/19 History tiotropium bromide [Spiriva with 1 cap INHALATION DAILY 01/30/19 01/30/19 History HandiHaler] Past Med/Surg History Medical History CKD (chronic kidney disease), stage III (Chronic) IBS (irritable bowel syndrome) (Chronic) Diarrhea predominant ; follows with GI Myelodysplastic syndrome (Chronic) H/O: hysterectomy (Chronic) S/P ORIF (open reduction internal fixation) fracture (Chronic) History of peptic ulcer disease (Chronic) History of breast cancer (Chronic) Anemia (Chronic) History of MRSA infection (Chronic) "left hip wound" COPD (chronic obstructive pulmonary disease) (Chronic) Essential thrombocythemia (Chronic) Leukocytosis (Chronic) Fracture of radial neck, left, closed (Resolved) 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) COPD exacerbation (Resolved) Thrombocytosis (Chronic) Myelodysplastic syndrome (Chronic) Surgical History H/O mastectomy (Chronic) right side History of cholecystectomy (Chronic) Status post hysterectomy (Chronic) Status post cholecystectomy (Chronic) Status post mastectomy (Chronic) "modified right mastectomy 1990" Status post total hip replacement, left (Chronic) Family History Other Family history non-contributory Social History Preferred Language: Czech Communication Ability: Effective Beliefs That Will Affect Care: None Current Living Situation: Family Feels Safe at Home: Yes Smoking Status: Former smoker Tobacco Type: e-cigarettes Hx Alcohol Use: No Hx Substance Use: No Review of Systems Review of Systems: All systems reviewed & are unremarkable except as noted in HPI & below Physical Exam Physical Exam: General: no acute distress, chronic ill appearing, thin Head: normocephalic, atraumatic Eyes: PERRL, EOM's intact, conjunctiva non-injected, anicteric ENT: normal inspection external ears, nose, mucous membranes dry Neck: supple, trachea midline Lungs: clear, no respiratory distress, no wheezing/rhonchi/rales CV: RRR, no murmur, no pretibial edema Abd: normal BS, soft, +diffuse tenderness to palpation greatest over epigastric region without rebound or guarding Ext: no cyanosis, no calf tenderness Neuro: A&O x 3, no focal deficits noted, normal affect Skin: warm, dry Results & Data Vital Signs (Past 12 Hours) Vital Signs Temp Pulse Pulse Resp BP BP Pulse Ox 01/30/19 15:26 90 18 91/57 L 94 01/30/19 14:04 94 01/30/19 14:01 88 23 91/56 L 94 01/30/19 14:00 86 17 95 01/30/19 13:50 93 H 23 94 01/30/19 13:45 93 H 20 72/62 L 94 01/30/19 13:42 92 H 17 94/44 L 95 01/30/19 13:38 93 H 22 98/55 L 97 01/30/19 13:30 36.8 C 97 H 22 76/51 L 93 Laboratory Results Short CBC 01/30/19 Range/Units 13:56 WBC 17.06 H (4.8-10.8) K/uL Hgb 9.5 L (12.0-16.0) g/dL Hct 30.5 L (37-47) % Plt Count 1122 H* (130-400) K/uL BMP 01/30/19 13:56 Sodium 140 Potassium 4.3 Chloride 110 H Carbon Dioxide 22 BUN 17 Creatinine 1.30 H Glucose 102 H Calcium 9.4 Liver Function 01/30/19 Range/Units 13:56 Total Bilirubin 0.3 (0.2-1) mg/dl AST 15 (15-37) U/L ALT 16 (12-78) U/L Alkaline Phosphatase 61 (45-117) U/L Albumin 4.0 (3.4-5.0) gm/dl Urine 01/30/19 Range/Units 13:56 Urine Color Yellow Urine Appearance Clear (Clear) Urine pH 5.0 (4.5-7.5) Ur Specific [place] 1.021 (1.000-1.030) Urine Protein Negative (Negative) Urine Glucose (UA) Negative (Negative) Supervising Physician Co-Signing Physician Notes Attending addendum The patient was seen and examined in the emergency room Pt is 78 y/o F with PMH IBS, GERD, PUD, CKD III, COPD, myelodysplastic syndrome, thrombocythemia, chronic anemia, h/o breast CA s/p chemo and mastectomy presented to ER with complaint of abdominal discomfort x 4 days. Has had acute gastroenteritis for the last few days Now feels extremely tired and dizzy on ambulation Noted to have low blood pressure at presentation which improved with intravenous fluid On examination No apparent distress at rest Hemodynamically stable male Chest-clear to auscultation bilaterally Heart-S1-S2, regular Abdomen-benign, bowel sounds present Extremities-negative for any edema Admission labs and imaging studies reviewed Recent gastroenteritis with low blood pressure likely secondary to dehydration Myelodysplastic syndrome remains stable. Discussed with oncologist Admitted with assessment and plan as outlined above by LEVY Garibay Dr (1) Hypotension Hypotension type: unspecified hypotension type Qualified Code(s): I95.9 - Hypotension, unspecified
[2019-01-30] MEDS ORDERED: ALBUT/IPRATROP 3MG/0.5MG NEB 3 ML VIAL NEB PRN (19:25)
[2019-01-30] MEDS ORDERED: TEMAZEPAM 15 MG CAPSULE PO PRN (19:25)
[2019-01-30] MEDS ORDERED: ALBUTEROL HFA 8 GM INHALER INH PRN (19:25)
[2019-01-30] MEDS: SODIUM CHLORIDE 0.9% 1000ML 1,000 ML IV SCH (19:33)
[2019-01-30] MEDS ORDERED: Nursing to Pharmacy Communication ONE (20:51)
[2019-01-30] MEDS: FLUTICASONE/SALMETEROL 250/50 (ADVAIR) 14 PUFF/1 INHALER INH SCH (20:55)
[2019-01-30] MEDS: OXYCODONE HCL IR 5 MG TAB (IMMEDIATE RELEASE) PO PRN (20:55)
[2019-01-30] MEDS: PREGABALIN 75 MG CAP PO SCH (20:55)
[2019-01-30] MEDS: AMITRIPTYLINE HCL 25 MG TAB PO SCH (20:56)
[2019-01-30] MEDS: PANTOprazole 40 MG TAB PO SCH (20:56)
[2019-01-30] MEDS: TRAZODONE HCL 50 MG TAB PO SCH (20:57)
[2019-01-30] MEDS: ANAGRELIDE PO SCH (22:00)
[2019-01-30] MEDS: HYDROXYUREA 500 MG CAP PO SCH (22:01)
--- NOTE | 2019-01-30 22:07 | CT Scan Report ---
ABDOMEN AND PELVIS CT WITHOUT CONTRAST CT DOSE: 354.44 mGycm HISTORY: Generalized abdominal pain TECHNIQUE: Multiaxial CT images of the abdomen and pelvis were performed without contrast. A dose lo wering technique was utilized adhering to the principles of ALARA. COMPARISON STUDY: Abdomen and pelvis CT 03/24/2018. FINDINGS: Moderate emphysema at the lung bases. No pneumoperitoneum. No pneumatosis. A left total hip arthroplasty. Moderate superior endplate compression deformity at T11, unchanged. Therefore, this is chronic. Cholecystectomy. The unenhanced liver, pancreas, and adrenal glands are unremarkable. There are few punctate bilateral renal calculi. No definite ureteral calculi. No hydronephrosis. Stable 6 cm hypodense lesion within the lower pole the right kidney. This is incompletely characterize on this noncontrast study but favors a cyst. The spleen remains enlarged measuring 14 cm in length. Mild tameka tral intrahepatic bile duct dilatation, unchanged. No retroperitoneal lymphadenopathy. Calcified plaq ue within the normal caliber abdominal aorta. Suboptimal evaluation of the lower pelvic structures du e to the metallic artifact from the left hip prosthesis. However, the bladder appears within normal l imits. The uterus is surgically absent. Suboptimal evaluation for bowel pathology due to the lack of intravenous and oral contrast. However, there is no definite bowel wall thickening or obstruction. Qu estionable areas of thickening within the sigmoid colon is likely due to underdistention. Colonic div erticulosis. No evidence for diverticulitis. Moderate to large amount well-formed stool within the pr oximal colon. Partially visualized right breast implant. IMPRESSION: 1. No definite bowel wall thickening or obstruction. 2. Bilateral nephrolithiasis. No ureteral stones. No hydronephrosis. 3. Colonic diverticulosis. 4. Stable splenomegaly. 5. Cholecystectomy. 6. Emphysema. 7. Additional findings as described above. Electronically signed by: Johnnie Simental M.D. 01/30/2019 10:06 PM
[2019-01-30] MEDS: ACETAMINOPHEN 325 MG TAB PO PRN (23:53)
[2019-01-31] MEDS: SODIUM CHLORIDE 0.9% 1000ML 1,000 ML IV SCH (05:55)
[2019-01-31 08:01] LABS: Basophils # (auto) 0.36 K/uL (0-0.2); Basophils % (auto) 3.1 %; Eosinophils # (auto) 0.69 K/uL (0-0.5); Hematocrit (blood only) 25.2 % (37-47); Hemoglobin 7.7 g/dL (12.0-16.0); Immature Granulocytes # (auto) 0.09 K/uL (0.00-0.02); Immature Granulocytes % (auto) 0.8 %; Lymphocytes # (auto) 2.82 K/uL (1.2-3.4); Lymphocytes % (auto) 24.7 %; Mean Corpuscular Hgb Conc 30.6 g/dL (32-36); Mean Corpuscular Volume 100.4 fL (80-100); Mean Platelet Volume 11.9 fL (7.4-10.4); Monocytes # (auto) 0.81 K/uL (0.11-0.59); Monocytes % (auto) 7.1 %; Neutrophils # (auto) 6.66 K/uL (1.4-6.5); Neutrophils % (auto) 58.3 %; Nucleated RBC # (auto) 0.06 K/uL (0-0); Nucleated RBC % (auto) 0.5 %; Platelet Count 762 K/uL (130-400); Red Blood Count 2.51 M/uL (4.2-5.4); White Blood Count 11.43 K/uL (4.8-10.8)
[2019-01-31] MEDS: FLUTICASONE/SALMETEROL 250/50 (ADVAIR) 14 PUFF/1 INHALER INH SCH ×2 (08:18→20:53)
[2019-01-31] MEDS: TIOTROPIUM BROMIDE 5 PUFF/90 MCG INH INH SCH (08:18)
[2019-01-31] MEDS: PANTOprazole 40 MG TAB PO SCH ×2 (08:18→20:54)
[2019-01-31] MEDS: OXYCODONE HCL IR 5 MG TAB (IMMEDIATE RELEASE) PO PRN (08:21)
[2019-01-31 08:25] LABS: Anisocytosis Present; Basophilic Stippling 1+; Giant Platelets 2+; Poikilocytosis Present; Schistocytes 1+
[2019-01-31 08:34] LABS: Calcium 8.1 mg/dl (8.5-10.1); Creatinine Clr Calc Pharmacy 42.2 ml/min; Est GFR (African American) 64.9; Potassium 3.9 mmol/L (3.5-5.1)
[2019-01-31] MEDS ORDERED: HYDROXYUREA 500 MG CAP PO SCH (09:00)
[2019-01-31] MEDS: ACETAMINOPHEN 325 MG TAB PO PRN (11:37)
[2019-01-31] MEDS ORDERED: ACETAMINOPHEN 500 MG TAB PO PRN (12:58)
--- NOTE | 2019-01-31 13:19 | Hospitalist Progress Note ---
Date of Service January 31, 2019 Assessment & Plan (1) Nausea, vomiting, and diarrhea: Possible viral gastroenteritis, Symptom has completely resolved, with bowel rest, IV hydration CT abdomen pelvis: 1. No definite bowel wall thickening or obstruction. 2. Bilateral nephrolithiasis. No ureteral stones. No hydronephrosis. 3. Colonic diverticulosis. 4. Stable splenomegaly. No evidence of an acute GI pathology, Tolerating clears, diet advanced to low fiber (2) Abdominal pain: Pt presented to ER with c/o N/V/D 4 days ago which has since resolved, with continued abdominal discomfort. No fever/chills, hematemesis, melena, hematochezia. Symptom has completely resolved since -CT abdomen pelvis as Above Stool for C. difficile ordered, unable to obtain a sample, as the patient did not had any bowel movements and admission Advance diet as tolerated, DC IV fluids, Increase activity (3) Dehydration: Corrected with IV fluids, diet advanced, patient is encouraged for increased p.o. intake (4) Anemia: Secondary to history of myelodysplastic syndrome, anemia of chronic disease Gets intermittent blood transfusion/requires irradiated PRBC for MDS Last blood transfusion was approximately 2 months back Hemoglobin drop noted from 97 0.7 No evidence of GI bleed Possible secondary to dilutional, IV fluids discontinued, repeat H&H in a.m. Patient will need transfusion for hemoglobin less than 7 (5) Hypotension: Possible secondary to dehydration, poor p.o. intake BP improved to baseline after IV fluids, Denies of any dizzy spell or lightheadedness Scrap Picker discontinued (6) Weakness: . Weakness probable secondary to dehydration and illness -Clinically feels much improved today diet advanced, increase activity as tolerated (7) IBS (irritable bowel syndrome): Hx IBS - diarrhea predominant. Follows with [facility] -no further diarrhea, will hold on Imodium and monitor (8) Myelodysplastic syndrome: Follows with hematology oncology Dr. Chavez continue hydrea, anagrelide WBC: 17 (baseline 19), Plt: 1122 (baseline ~967). blast cells noted. -Discussed with heme/oncology - Dr Chavez about blast on CBC, reports no acute concern with pt's long standing history of myelodysplastic syndrome. Recommends continuing pt's hydrea, anagrelide (9) Essential thrombocythemia: Follows with Dr Chavez - heme/oncology. Hx med non-compliance. -monitor CBC (10) CKD (chronic kidney disease), stage III: Cr: 1.3. Baseline 1.1Approximate baseline -monitor CBC -avoid nephrotoxic agents when possible (11) COPD (chronic obstructive pulmonary disease): No SOB, wheezing -Continue home inhalers, continue duoneb prn DVT Prophylaxis -SCDs Full Code as per discussion with pt Follows with Dr Valerei Chavez for routine care Disposition: Expect to be discharged home in next 1 to 2 days if remains medically stable Subjective Patient presents with her nausea vomiting, diarrhea has completely resolved, Has minimum abdominal soreness, improved from yesterday, No fever or chills, Having intractable headache since yesterday, no improvement on getting Tylenol, oxycodone No visual problem History of migraine headache/tension headache Patient feels she may be Experiencing episodes Headaches secondary to stress being in hospital Finished a clear liquid diet at this morning, with no GI symptoms Physical Exam Physical Exam: GENERAL: No sign of distress, HEENT: Sclera nonicteric, pink-purple bilateral equal reactive to light extraocular muscle intact Normal oral mucosa, neck: No JVD, no thyromegaly, trachea midline Lungs: Clear to auscultate, no wheeze or rales Cardiovascular: Regular S1 and S2, no murmur or gallop, no JVD, no lower extremity edema Abdomen: Soft, nontender, bowel sounds active, no hepatosplenomegaly Extremities: No rash or deformity, normal joint, Neuro: No focal neurological deficit, no dysarthria, no facial droop Psych: Alert awake oriented x3: Euthymic Skin: No rash LYMPH NODES: No cervical lymphadenopathy Results & Data Vital Signs (Past 12 Hours) Vital Signs Temp Pulse Resp BP Pulse Ox 01/31/19 11:36 36.9 C 97 H 18 113/66 90 01/31/19 08:26 36.9 C 99 H 20 114/66 91 01/31/19 03:00 37 C 107 H 18 101/65 91 (1) COPD (chronic obstructive pulmonary disease) COPD type: unspecified COPD Qualified Code(s): J44.9 - Chronic obstructive pulmonary disease, unspecified (2) Abdominal pain Abdominal location: generalized Qualified Code(s): R10.84 - Generalized abdominal pain (3) Hypotension Hypotension type: unspecified hypotension type Qualified Code(s): I95.9 - Hypotension, unspecified (4) IBS (irritable bowel syndrome) Irritable bowel syndrome type: with both diarrhea and constipation Qualified Code(s): K58.2 - Mixed irritable bowel syndrome (5) 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
[2019-01-31] MEDS ORDERED: OXYCODONE HCL IR 5 MG TAB (IMMEDIATE RELEASE) PO PRN ×2 (13:20)
[2019-01-31] MEDS ORDERED: SODIUM CHLORIDE 0.9% 250 ML IV PRN (13:21)
[2019-01-31] MEDS: TRAMADOL HCL 50 MG TABLET PO PRN (17:38)
[2019-01-31] MEDS: AMITRIPTYLINE HCL 25 MG TAB PO SCH (20:53)
[2019-01-31] MEDS: HYDROXYUREA 500 MG CAP PO SCH (20:54)
[2019-01-31] MEDS: TRAZODONE HCL 50 MG TAB PO SCH (20:54)
[2019-01-31] MEDS: PREGABALIN 75 MG CAP PO SCH (20:57)
[2019-02-01 07:40] LABS: Basophils # (auto) 0.36 K/uL (0-0.2); Basophils % (auto) 3.3 %; Eosinophils # (auto) 0.67 K/uL (0-0.5); Eosinophils % (auto) 6.2 %; Hemoglobin 8.2 g/dL (12.0-16.0); Immature Granulocytes # (auto) 0.13 K/uL (0.00-0.02); Immature Granulocytes % (auto) 1.2 %; Lymphocytes # (auto) 2.55 K/uL (1.2-3.4); Lymphocytes % (auto) 23.4 %; Mean Corpuscular Hgb Conc 31.5 g/dL (32-36); Mean Corpuscular Volume 100.8 fL (80-100); Mean Platelet Volume 11.6 fL (7.4-10.4); Monocytes # (auto) 0.88 K/uL (0.11-0.59); Monocytes % (auto) 8.1 %; Neutrophils # (auto) 6.29 K/uL (1.4-6.5); Neutrophils % (auto) 57.8 %; Nucleated RBC # (auto) 0.03 K/uL (0-0); Nucleated RBC % (auto) 0.3 %; Platelet Count 666 K/uL (130-400); Red Blood Count 2.58 M/uL (4.2-5.4); White Blood Count 10.88 K/uL (4.8-10.8)
[2019-02-01 08:01] LABS: Anisocytosis Present; Basophilic Stippling 1+; Giant Platelets 1+; Ovalocytes 1+; Tear Drop Cells 1+
[2019-02-01 08:07] LABS: BUN Creatinine Ratio 14.8 (10-20); Calcium 8.1 mg/dl (8.5-10.1); Est GFR (African American) 68.3; Est GFR (Non-African American) 58.9; Magnesium 1.6 mg/dl (1.8-2.4); Potassium 3.7 mmol/L (3.5-5.1)
[2019-02-01] MEDS: TIOTROPIUM BROMIDE 5 PUFF/90 MCG INH INH SCH (08:23)
[2019-02-01] MEDS: PANTOprazole 40 MG TAB PO SCH ×2 (08:23→21:07)
[2019-02-01] MEDS: FLUTICASONE/SALMETEROL 250/50 (ADVAIR) 14 PUFF/1 INHALER INH SCH ×2 (08:23→21:06)
[2019-02-01] MEDS ORDERED: ONDANSETRON INJ 2 MG/ML 2 ML VIAL ONE (13:08)
[2019-02-01] MEDS ORDERED: ONDANSETRON INJ 2 MG/ML 2 ML VIAL IV PRN (13:23)
[2019-02-01] MEDS: HYDROXYUREA 500 MG CAP PO SCH (21:07)
[2019-02-01] MEDS: ANAGRELIDE PO SCH (21:07)
[2019-02-01] MEDS: AMITRIPTYLINE HCL 25 MG TAB PO SCH (21:07)
[2019-02-01] MEDS: TRAZODONE HCL 50 MG TAB PO SCH (21:07)
[2019-02-01] MEDS: PREGABALIN 75 MG CAP PO SCH (21:10)
--- NOTE | 2019-02-01 23:10 | Hospitalist Progress Note ---
Date of Service February 01, 2019 Assessment & Plan (1) Nausea, vomiting, and diarrhea: Possible viral gastroenteritis, Symptom has resolved, with bowel rest, IV hydration CT abdomen pelvis: 1. No definite bowel wall thickening or obstruction. 2. Bilateral nephrolithiasis. No ureteral stones. No hydronephrosis. 3. Colonic diverticulosis. 4. Stable splenomegaly. No evidence of an acute GI pathology, diet advanced plan to discharge home tomorrow if no GI symptom recurr (2) Abdominal pain: Pt presented to ER with c/o N/V/D 4 days ago which has since resolved, with continued abdominal discomfort. No fever/chills, hematemesis, melena, hematochezia. Symptom has completely resolved since -CT abdomen pelvis as Above no diarrhea /no BM since admission (3) Dehydration: Corrected with IV fluids, diet advanced, patient is encouraged for increased p.o. intake (4) Anemia: Secondary to history of myelodysplastic syndrome, anemia of chronic disease Gets intermittent blood transfusion/requires irradiated PRBC for MDS Last blood transfusion was approximately 2 months back hb improved to 8,7 No evidence of GI bleed no indication for PRBC transfusion (5) Hypotension: resolved Possible secondary to dehydration, poor p.o. intake BP improved to baseline after IV fluids, Denies of any dizzy spell or lightheadedness (6) Weakness: . Weakness probable secondary to dehydration and illness no symptom of weakness ambulating independently (7) IBS (irritable bowel syndrome): Hx IBS - diarrhea predominant. Follows with [facility] -no further diarrhea, will hold on Imodium and monitor (8) Myelodysplastic syndrome: Follows with hematology oncology Dr. Chavez continue hydrea, anagrelide WBC: 17 (baseline 19), Plt: 1122 (baseline ~967). blast cells noted. -Discussed with heme/oncology - Dr Chavez about blast on CBC, reports no acute concern with pt's long standing history of myelodysplastic syndrome. Recommends continuing pt's hydrea, anagrelide (9) Essential thrombocythemia: Follows with Dr Chavez - heme/oncology. Hx med non-compliance. -monitor CBC (10) CKD (chronic kidney disease), stage III: Cr: 1.3. Baseline 1.1Approximate baseline -monitor CBC -avoid nephrotoxic agents when possible (11) COPD (chronic obstructive pulmonary disease): No SOB, wheezing -Continue home inhalers, continue duoneb prn DVT Prophylaxis -SCDs Full Code as per discussion with pt Follows with Dr Valerie Chavez for routine care Disposition: possible discharged home tomorrow if remains medically stable Subjective had episode of nasuea earlier this morning followed by emesis had only clears for dinner feels much better no nausea no abdominal pain headache has resolved no bowel movement since admission Physical Exam Constitutional: + thin; no acute distress Eyes: PERRL, conjunctivae normal, anicteric sclerae ENMT: external ear and nose normal, oropharynx normal Neck: trachea midline, no thyromegaly Respiratory: normal respiratory effort, lungs clear to auscultation Cardiovascular: RRR, no murmur, no edema Gastrointestinal (Abdomen): normal bowel sounds, soft, nontender, no hepatosplenomegaly Musculoskeletal: no cyanosis or clubbing, extremities motor strength 5/5 Skin: no rashes, warm and dry Neurologic: patellar DTR's 2+ bilat, sensation intact Psychiatric: A+Ox3, euthymic affect Results & Data Vital Signs (Past 12 Hours) Vital Signs Temp Pulse Resp BP Pulse Ox 02/01/19 21:05 95 02/01/19 19:55 37.2 C 93 H 20 107/68 90 02/01/19 15:02 37.2 C 107 H 18 100/60 88 L (1) Abdominal pain Abdominal location: generalized Qualified Code(s): R10.84 - Generalized abdominal pain (2) 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
[2019-02-02] MEDS: TRAMADOL HCL 50 MG TABLET PO PRN (08:55)
[2019-02-02 08:56] LABS: Anisocytosis Present; Basophils # (auto) 0.29 K/uL (0-0.2); Basophils % (auto) 2.5 %; Eosinophils # (auto) 0.53 K/uL (0-0.5); Eosinophils % (auto) 4.6 %; Hematocrit (blood only) 24.9 % (37-47); Hemoglobin 7.5 g/dL (12.0-16.0); Immature Granulocytes # (auto) 0.13 K/uL (0.00-0.02); Immature Granulocytes % (auto) 1.1 %; Lymphocytes # (auto) 1.72 K/uL (1.2-3.4); Mean Corpuscular Hgb Conc 30.1 g/dL (32-36); Mean Platelet Volume 11.9 fL (7.4-10.4); Monocytes # (auto) 1.02 K/uL (0.11-0.59); Monocytes % (auto) 8.9 %; Neutrophils # (auto) 7.75 K/uL (1.4-6.5); Neutrophils % (auto) 67.9 %; Platelet Count 678 K/uL (130-400); Red Blood Count 2.49 M/uL (4.2-5.4); White Blood Count 11.44 K/uL (4.8-10.8)
[2019-02-02] MEDS: FLUTICASONE/SALMETEROL 250/50 (ADVAIR) 14 PUFF/1 INHALER INH SCH (08:56)
[2019-02-02] MEDS: TIOTROPIUM BROMIDE 5 PUFF/90 MCG INH INH SCH (08:56)
[2019-02-02] MEDS: PANTOprazole 40 MG TAB PO SCH (08:57)
--- NOTE | 2019-02-02 17:09 | Hospitalist Progress Note ---
Date of Service February 02, 2019 Assessment & Plan (1) Nausea, vomiting, and diarrhea: Time has completely resolved Possible viral gastroenteritis, Treated with bowel rest, IV hydration CT abdomen pelvis: 1. No definite bowel wall thickening or obstruction. 2. Bilateral nephrolithiasis. No ureteral stones. No hydronephrosis. 3. Colonic diverticulosis. 4. Stable splenomegaly. No evidence of an acute GI pathology, diet advanced Stable to be discharged home today (2) Abdominal pain: Pt presented to ER with c/o N/V/D 4 days ago which has since resolved, with continued abdominal discomfort. No fever/chills, hematemesis, melena, hematochezia. Symptom has completely resolved since -CT abdomen pelvis as Above no diarrhea /no BM since admission Can be discharged home today (3) Dehydration: Corrected with IV fluids, diet advanced, patient is encouraged for increased p.o. intake (4) Anemia: Secondary to history of myelodysplastic syndrome, anemia of chronic disease Gets intermittent blood transfusion/requires irradiated PRBC for MDS Last blood transfusion was approximately 2 months back Hemoglobin 8.77.5 today, no evidence of GI bleed As per hematology oncology, patient gets blood transfusion when hemoglobin less than 7 Lab prescription given to repeat blood work check on next , 02/07/2019 with the next clinic visit for hospital follow-up (patient usually gets blood work check for anemia by hematology oncology Dr. Mainor Chavez) Recommendation for PRBC transfusion as per hematology, family physician (5) Hypotension: resolved Possible secondary to dehydration, poor p.o. intake BP improved to baseline after IV fluids, Denies of any dizzy spell or lightheadedness Patient is encouraged for increased fluid intake (6) Weakness: . Presented with weakness probable secondary to dehydration and illness no symptom of weakness or fatigue at this moment ambulating independently (7) IBS (irritable bowel syndrome): Hx IBS - diarrhea predominant. Follows with [facility] -no further diarrhea, (8) Myelodysplastic syndrome: Follows with hematology oncology Dr. Chavez continue hydrea, anagrelide WBC: 17 (baseline 19), Plt: 1122 (baseline ~967). blast cells noted. -Discussed with heme/oncology - Dr Chavez about blast on CBC, reports no acute concern with pt's long standing history of myelodysplastic syndrome. Recommends continuing pt's hydrea, anagrelide Outpatient follow-up with hematology oncology as per schedule (9) Essential thrombocythemia: Follows with Dr Chavez - heme/oncology. (10) CKD (chronic kidney disease), stage III: Creatinine at approximate baseline (11) COPD (chronic obstructive pulmonary disease): No SOB, wheezing -Continue home inhalers, continue duoneb prn DVT Prophylaxis -SCDs Full Code as per discussion with pt Stable to be discharged home today, medicine follow-up with Dr. Valerie Chavez Subjective No complaint of nausea vomiting, no diarrhea, no abdominal pain Feels completely fine, energy and spirit back to baseline Normal appetite Eager to be discharged home today Physical Exam Constitutional: + thin; no acute distress Eyes: PERRL, conjunctivae normal, anicteric sclerae ENMT: external ear and nose normal, oropharynx normal Neck: trachea midline, no thyromegaly Respiratory: normal respiratory effort, lungs clear to auscultation Cardiovascular: RRR, no murmur, no edema Gastrointestinal (Abdomen): normal bowel sounds, soft, nontender, no hepatosplenomegaly Musculoskeletal: no cyanosis or clubbing, extremities motor strength 5/5 Skin: no rashes, warm and dry Neurologic: patellar DTR's 2+ bilat, sensation intact Psychiatric: A+Ox3, euthymic affect Results & Data Vital Signs (Past 12 Hours) Vital Signs Temp Pulse Resp BP BP Pulse Ox 02/02/19 16:19 37.2 C 99 H 18 87/51 L 101/63 93 02/02/19 15:35 37.2 C 99 H 18 87/51 L 93 02/02/19 11:26 36.9 C 87 17 81/37 L 101/63 94 02/02/19 07:46 36.6 C 83 17 90/56 L 90 (1) 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 (2) COPD (chronic obstructive pulmonary disease) COPD type: unspecified COPD Qualified Code(s): J44.9 - Chronic obstructive pulmonary disease, unspecified (3) Abdominal pain Abdominal location: generalized Qualified Code(s): R10.84 - Generalized abdominal pain (4) Hypotension Hypotension type: unspecified hypotension type Qualified Code(s): I95.9 - Hypotension, unspecified (5) IBS (irritable bowel syndrome) Irritable bowel syndrome type: with both diarrhea and constipation Qualified Code(s): K58.2 - Mixed irritable bowel syndrome
--- NOTE | 2019-02-02 18:04 | Discharge Summary ---
Date of Service February 02, 2019 Admission HPI Per Admitting Provider Pt is 78 y/o F with PMH IBS, GERD, PUD, CKD III, COPD, myelodysplastic syndrome, thrombocythemia, chronic anemia, h/o breast CA s/p chemo and mastectomy presented to ER with complaint of abdominal discomfort x 4 days. Patient states 4 days ago started with nausea, vomiting, diarrhea. States he vomited 2-3 times and had 6-7 episodes of diarrhea 4 days ago. No further vomiting or diarrhea has occurred since. Patient has been taking Pepto-Bismol and Imodium. Reports history of chronic intermittent diarrhea with IBS in which she takes Imodium and Pepto-Bismol regularly. c/o diffuse abdominal burning and soreness. Patient states his been feeling weak the past couple of days. She reports decreased appetite and has had decreased oral intake. Denies fever/chills, diaphoresis, melena, hematochezia, hematemesis, BALL, dizziness, syncope, vision changes, neck pain, CP, SOB, orthopnea, palpitations, cough, sore throat, choking, otalgia, rhinorrhea, paresthesias, extremity edema, rashes, urinary symptoms. Denies re cent antibiotic use, recent travel, ill contacts. Principal Diagnosis Nausea vomiting, abdominal pain, diarrhea Discharge Exam Constitutional + thin; no acute distress Eyes PERRL, conjunctivae normal, anicteric sclerae ENMT external ear and nose normal, oropharynx normal Neck trachea midline, no thyromegaly Respiratory normal respiratory effort, lungs clear to auscultation Cardiovascular RRR, no murmur, no edema Gastrointestinal (Abdomen) normal bowel sounds, soft, nontender, no hepatosplenomegaly Musculoskeletal no cyanosis or clubbing, extremities motor strength 5/5 Skin no rashes, warm and dry Neurologic patellar DTR's 2+ bilat, sensation intact Psychiatric A+Ox3, euthymic affect Discharge Data Allergies Allergy/AdvReac Type Severity Reaction Status Date / Time latex Allergy Unknown HIVES Verified 01/30/19 14:15 No Known Drug Allergies Allergy Unknown . Verified 10/09/18 11:09 Iodinated Contrast- Oral and Allergy Diarrhea Verified 01/30/19 14:15 IV Dye Lobster Allergy Severe HIVES Uncoded 01/30/19 14:15 METALS Allergy Mild HIVES/ITCHI Uncoded 01/30/19 14:15 NESS Consultations 01/30/19 15:58 ED Decision to Admit Stat Ordered Studies 01/30/19 16:48 CT abd pelvis wo con Urgent Hospital Course (1) Nausea, vomiting, and diarrhea: Time has completely resolved Possible viral gastroenteritis, Treated with bowel rest, IV hydration CT abdomen pelvis: 1. No definite bowel wall thickening or obstruction. 2. Bilateral nephrolithiasis. No ureteral stones. No hydronephrosis. 3. Colonic diverticulosis. 4. Stable splenomegaly. No evidence of an acute GI pathology, diet advanced Stable to be discharged home today (2) Abdominal pain: Pt presented to ER with c/o N/V/D 4 days ago which has since resolved, with continued abdominal discomfort. No fever/chills, hematemesis, melena, hematochezia. Symptom has completely resolved since -CT abdomen pelvis as Above no diarrhea /no BM since admission Can be discharged home today (3) Dehydration: Corrected with IV fluids, diet advanced, patient is encouraged for in creased p.o. intake (4) Anemia: Secondary to history of myelodysplastic syndrome, anemia of chronic disease Gets intermittent blood transfusion/requires irradiated PRBC for MDS Last blood transfusion was approximately 2 months back Hemoglobin 8.77.5 today, no evidence of GI bleed As per hematology oncology, patient gets blood transfusion when hemoglobin less than 7 Lab prescription given to repeat blood work check on next , 02/07/2019 with the next clinic visit for hospital follow-up (patient usually gets blood work check for anemia by hematology oncology Dr. Mainor Chavez) Recommendation for PRBC transfusion as per hematology, family physician (5) Hypotension: resolved Possible secondary to dehydration, poor p.o. intake BP improved to baseline after IV fluids, Denies of any dizzy spell or lightheadedness Patient is encouraged for increased fluid intake (6) Weakness: . Presented with weakness probable secondary to dehydration and illness no symptom of weakness or fatigue at this moment ambulating independently (7) IBS (irritable bowel syndrome): Hx IBS - diarrhea predominant. Follows with [facility] -no further diarrhea, (8) Myelodysplastic syndrome: Follows with hematology oncology Dr. Chavez continue hydrea, anagrelide WBC: 17 (baseline 19), Plt: 1122 (baseline ~967). blast cells noted. -Discussed with heme/oncology - Dr Chavez about blast on CBC, reports no acute concern with pt's long standing history of myelodysplastic syndrome. Recommends continuing pt's hydrea, anagrelide Outpatient follow-up with hematology oncology as per schedule (9) Essential thrombocythemia: Follows with Dr Chavez - heme/oncology. (10) CKD (chronic kidney disease), stage III: Creatinine at approximate baseline (11) COPD (chronic obstructive pulmonary disease): No SOB, wheezing -Continue home inhalers, continue duoneb prn DVT Prophylaxis -SCDs Full Code as per discussion with pt Stable to be discharged home today, medicine follow-up with Dr. Valerie Chavez Total Time Total Time Spent Total Time Spent (In Minutes): Proximately 45 minutes Total Time Includes: Examination of the Patient, Discharge Planning and Medication Reconciliation Discharge Plan Discharge Items Patient Disposition: Home - Self-Care Reason For Visit: DEHYDRATION Discharge Diagnosis: NAUSEA /VOMITING /DIARRHEA -RESOLVED , POSSIBLE VIRAL GASTROENTERITIS Discharge Goals: Decrease discomfort, Diagnostic testing and Therapeutic intervention Activity: Resume your previous activity Non-emergency contact: Primary Care Provider Call non-emergency contact if: you have any medication questions Follow-up/Referrals: Valerie Chavez MD [Primary Care Provider] - 02/07/19 11:00 am Diet: Regular Other Ambulatory Orders: Complete Blood Count no Diff (Routine) Timeframe: 20190207 Location: Determined by Patient Ordered By: Doreen Wilkins Magnesium (Routine) Timeframe: 20190207 Location: Determined by Patient Ordered By: Doreen Wilkins Add Provider Instructions: Hospital follow-up with Dr. Valerie Chavez on February 07 at 11 AM LAB WORK CBC/BASIC METABOLIC PANEL /MAGNESIUM LEVEL ON 02/07/2019 Prescriptions: New magnesium oxide 400 mg (241.3 mg magnesium) tablet 400 mg PO BID Qty: 10 RF: 0 Continued hydroxyurea [Hydrea] 500 mg Capsule 500 mg PO HS RF: 0 fluticasone propion-salmeterol [Advair Diskus] 250-50 mcg/dose Blister With Device 1 inh INHALATION BID RF: 0 trazodone 50 mg Tablet 50 mg PO HS RF: 0 amitriptyline 75 mg Tablet 75 mg PO HS RF: 0 ondansetron HCl [Zofran] 8 mg Tablet 8 mg PO TID PRN (Reason: Nausea) RF: 0 rizatriptan 10 mg Tablet 10 mg PO UD PRN (Reason: Migraine Headache) RF: 0 temazepam [Restoril] 30 mg Capsule 30 mg PO HS PRN (Reason: Sleep) RF: 0 pantoprazole [Protonix] 40 mg Tablet,Delayed Release (Dr/Ec) 40 mg PO BID RF: 0 bismuth subsalicylate [Pepto-Bismol] 262 mg/15 mL Suspension 30 ml PO Q4 PRN (Reason: Gi Upset) RF: 0 anagrelide 1 mg Capsule 1 mg PO Q OTHER DAY RF: 0 ergocalciferol (vitamin D2) [Vitamin D2] 50,000 unit Capsule 50,000 unit PO WK RF: 0 levalbuterol HCl [Xopenex] 1.25 mg/3 mL Solution For Nebulization 1.25 mg INHALATION TID PRN (Reason: Shortness Of Breath Or Wheezing) RF: 0 albuterol sulfate [Ventolin HFA] 90 mcg/actuation Hfa Aerosol Inhaler 2 puff INHALATION QID PRN (Reason: Shortness Of Breath Or Wheezing) RF: 0 loratadine 10 mg Tablet 10 mg PO DAILY MDD allergies PRN (Reason: allergies) RF: 0 Lyrica 75 mg Capsule 75 mg PO HS RF: 0 acetaminophen [Tylenol Extra Strength] 500 mg Tablet 500 mg PO Q4H PRN (Reason: Pain) RF: 0 olopatadine [Patanol] 0.1 % Drops 1 drp OPHTHALMIC (EYE) BID PRN (Reason: Itching) RF: 0 Spiriva with HandiHaler 18 mcg Capsule, W/Inhalation Device 1 cap inhalation DAILY RF: 0 Stand-Alone Forms: [facility] Discharge Orders: Discharge Order (Routine); Ordered 02/02/19 Ordered By: Doreen Wilkins Admission Data Admit Date/Time: 01/30/19 17:23 Attending Provider: Doreen Wilkins Admit Provider: Carlotta Grant Primary Care Provider: Valerie Chavez Other Providers: Carlotta Grant Service: Telemetry Medical Other Interventions: Discharge Summary Assessment (RN) Last Done: 02/02/19 16:19
== END 2019-02-02 18:04 | disposition home or self-care (01) | DRG 392 ==
LOC: ED 13:24 → 2W 17:23

== ENCOUNTER 2019-06-12 13:58 | Inpatient (IN) ==
[2019-06-12] MEDS ORDERED: DAPTOmycin 500 MG in SYRINGE 0 ML IV STA (14:45)
[2019-06-12] MEDS ORDERED: PIPERACILL/TAZOBAC CONSULT ACTIVE PRN ×2 (14:45→19:32)
[2019-06-12] MEDS ORDERED: PIPERACILLIN/TAZOBACTAM 4.5 GM/120 ML BAG IV ONE (14:45)
[2019-06-12] MEDS ORDERED: ACETAMINOPHEN 1,000 MG/100 ML VIAL IV STA (14:47)
[2019-06-12] MEDS ORDERED: SODIUM CHLORIDE 0.9% 1000ML 1,000 ML IV ONE (14:47)
[2019-06-12] MEDS ORDERED: VANCOMYCIN HCL 1,400 MG in SODIUM CHLORIDE 0.9% 500 ML IV ONE (14:48)
[2019-06-12] MEDS ORDERED: VANCOMYCIN CONSULT ACTIVE PRN ×2 (14:48→19:32)
[2019-06-12] MEDS ORDERED: VANCOMYCIN HCL 1,250 MG in SODIUM CHLORIDE 0.9% 250 ML IV STA (14:57)
--- NOTE | 2019-06-12 15:01 | XRay Report ---
XR chest 1V portable HISTORY: 78 years-old Female Sepsis acute sepsis COMPARISON: Chest radiograph 04/21/2019, CT abdomen and pelvis 01/30/2019 TECHNIQUE: Portable AP view of the chest FINDINGS: Cardiac silhouette is mildly enlarged. Calcified plaque of the thoracic aortic arch. No pneumothorax. Patchy left basilar opacities with trace left pleural effusion. Right lung is generally clear. Hazy opacity of the right midlung is unchanged, likely secondary to unilateral breast implant. Project of the right axilla. Probable bone island of the right humeral head with severe likely posttraumatic neeraj nges of the proximal left humerus. IMPRESSION: 1. Airspace opacities of the left lung base suggest pneumonia. Follow-up imaging to document resoluti on recommended. 2. Small left parapneumonic effusion. 3. Unchanged increased density of the right hemithorax secondary to unilateral breast implant. The above report was generated using voice recognition software. It may contain grammatical, syntax o r spelling errors. Electronically signed by: Jarvis Lewis M.D. 06/12/2019 3:00 PM
[2019-06-12 16:21] LABS: Base Excess VBG -1.5 mEq/L; HCO3 VBG 26 mmol/L; PCO2 VBG 54 mmHg (38-50); PO2 VBG 23 mmHg
[2019-06-12 16:23] LABS: Oxygen Saturation VBG < 60.0 %
[2019-06-12 16:28] LABS: Hematocrit (blood only) 37.3 % (37-47); Hemoglobin 11.9 g/dL (12.0-16.0); Mean Corpuscular Hemoglobin 34.4 pg (25-34); Mean Corpuscular Hgb Conc 31.9 g/dL (32-36); Mean Corpuscular Volume 107.8 fL (80-100); Mean Platelet Volume 13.4 fL (7.4-10.4); Platelet Count 680 K/uL (130-400); RDW Coefficient of Variation 29.9 % (11.5-14.5); Red Blood Count 3.46 M/uL (4.2-5.4); White Blood Count 31.23 K/uL (4.8-10.8)
[2019-06-12 16:33] LABS: INR 1.1 (0.9-1.1); Partial Thromboplastin Ratio 1.2; Partial Thromboplastin Time 31.2 Seconds (21.0-31.0)
[2019-06-12 16:40] LABS: Albumin Level 3.7 gm/dl (3.4-5.0); BUN Creatinine Ratio 15.8 (10-20); Calcium 8.8 mg/dl (8.5-10.1); Creatinine Clr Calc Pharmacy 40.3 ml/min; Est GFR (African American) 67.4; Est GFR (Non-African American) 58.2; Magnesium 2.1 mg/dl (1.8-2.4); Potassium 4.8 mmol/L (3.5-5.1)
[2019-06-12 16:52] LABS: Bilirubin,Total 0.9 mg/dl (0.2-1); Globulin 3.7 gm/dl (2.5-4.0); Total Protein 7.4 gm/dl (6.4-8.2); Troponin I 0.05 ng/ml (0-0.045)
[2019-06-12 17:01] LABS: Appearance Urine Clear (Clear); Bilirubin Urine Negative (Negative); Blood Urine Negative (Negative); Color Urine Dark Yellow; Glucose Urine UA Negative (Negative); Ketones Urine Negative (Negative); Leukocyte Esterase Urine Negative (Negative); Nitrite Urine Negative (Negative); Protein Urine Negative (Negative); Specific Gravity Urine 1.018 (1.000-1.030); Urobilinogen Urine Negative (Negative); pH Urine 5.5 (4.5-7.5)
[2019-06-12 17:12] LABS: Anisocytosis Present; Basophils # (auto) 0.07 K/uL (0-0.2); Basophils % (auto) 0.2 %; Eosinophils # (auto) 0.01 K/uL (0-0.5); Giant Platelets 1+; Immature Granulocytes # (auto) 0.19 K/uL (0.00-0.02); Immature Granulocytes % (auto) 0.6 %; Lymphocytes # (auto) 1.17 K/uL (1.2-3.4); Lymphocytes % (auto) 3.7 %; Macrocytosis Present; Monocytes # (auto) 1.49 K/uL (0.11-0.59); Monocytes % (auto) 4.8 %; Neutrophils % (auto) 90.7 %; Ovalocytes 1+; Poikilocytosis Present; Polychromasia 1+; Tear Drop Cells Occasional
[2019-06-12] MEDS ORDERED: ALBUT/IPRATROP 3MG/0.5MG NEB 3 ML VIAL NEB STA (17:47)
[2019-06-12] MEDS ORDERED: SODIUM CHLORIDE 0.9% 1000ML 500 ML IV ONE ×2 (17:47→18:11)
--- NOTE | 2019-06-12 17:53 | History & Physical Report ---
Date of Service June 12, 2019 Assessment & Plan (1) Acute respiratory failure with hypoxia and hypercapnia: (2) Sepsis with metabolic encephalopathy: (3) Pneumonia: This is a 78-year-old female who has significant past medical history of COPD, tobacco abuse, MDS, essential thrombocytopenia, anemia, GERD, history of PUD, depression, anxiety, history of right breast cancer s/p masectomy who presents to [facility] ED from [facility] secondary to altered mental status and hypoxia. Patient met sepsis criteria upon admission with leukocytosis of 31k, heart rate 111, SBP less than 100, temp 38.2 Lactic acid unable to be obtained due to poor venous access In ED she did receive 2 L IVF along with broad-spectrum IV antibiotics vancomycin and Zosyn Source: Pneumonia (influenza negative, urinalysis negative) After hospitalist examination we were notified of decrease in systolic blood pressure. She received additional 500 mL IV bolus. Due to lack of venous access as well as hemodynamic instability she will be admitted to ICU. Admit to ICU Continue broad-spectrum IV antibiotic vancomycin and Zosyn Aggressive pulmonary toilet with DuoNeb and chest percussive therapy Give additional 1 L bolus IVF x1 now Continue IV fluid resuscitation until improved hemodynamics with 125 cc/h Obtain lactic acid and repeat troponin at [address] head due to encephalopathy pending (4) Elevated troponin: Initial troponin elevated at 0.050 Likely in setting of demand ischemia given sepsis No Complaints of chest pain ECG revealed sinus tachycardia with nonspecific ST-T wave abnormalities, appears unchanged from prior EKG in April 2019 Trend troponin every 6 hours x 2 (5) COPD (chronic obstructive pulmonary disease): no acute exacerbation Continue with aggressive pulmonary toilet DuoNeb 4 times daily, chest percussion therapy Incentive spirometer Continue inhaled steroid No indication for systemic corticosteroids at this time (6) Pelvic fracture: s/p fall at OSH has been at [facility] x 2 weeks for sub acute rehab per [facility] WBAT will need to implement PT/OT once stabilized (7) CKD (chronic kidney disease), stage III: BUN/creatinine 15 and 0.95 Monitor BMP due to vanco administration (8) MDS/MPN (myelodysplastic/myeloproliferative neoplasms): monitor cbc Current leukocytosis 31K in setting of sepsis H&H stable at 11.9 and 37.3 (9) Essential thrombocythemia: Plt 680 To hydroxyurea and anagrelide monitor daily (10) Insomnia: On temazepam, trazodone, amitriptyline at bedtime Given altered mental status will hold temazepam and trazodone this evening Monitor (11) History of breast cancer: S/P R masectomy with breast implant (12) DVT prophylaxis: SQ Lovenox, SCD/TEDS Disposition: admit to PCU; case management consulted; patient currently resides at [facility] for sub acute rehab Follow-up: PCP Dr. Chavez upon discharge Patient was seen and examined in collaboration with Dr. Grant, please see addendum Starting 06/13/2019 patient will be under the care of Dr. Jackson History of Present Illness Chief Complaint: Altered mental status and hypoxia x 2 day. Primary Care Provider: Valerie Chavez MD This is a 78-year-old female who has significant past medical history of COPD, tobacco abuse, MDS, essential thrombocytopenia, anemia, GERD, history of PUD, depression, anxiety, history of right breast cancer s/p masectomy who presents to [facility] ED from [facility] secondary to altered mental status and hypoxia x 2 day. Patient has been residing at [facility] for the past 2 weeks secondary to suffering a nonoperable pelvic fracture. She was out in [place] when she fell off a barstool and presented to outside hospital. Was found to have pelvic fracture and discharged for skilled rehab at [facility]. Per son she has been mostly bedridden due to fracture. He last saw her 2 days ago in her normal state of health. At baseline she is alert and oriented x3 with a good sense of humor, independent of most ADLs and ambulate without assist device prior to fracture. Today she is much more confused and requiring oxygen. Patient complains of a productive cough for the past 2 months, most recently producing brown sputum, increasing shortness of breath, nausea, left leg pain. She denies any recent fever, chills, sweats, lightheadedness, dizziness, chest pain, palpitations, hemoptysis, emesis, abdominal pain, dysuria, increased urgency or frequency with urination, melena, hematochezia, diarrhea. Her last use of tobacco was prior to her fracture. She does vape daily. "I hide it in my purse." Her last vape was approximately 1 hour ago per patient. Normally patient has adequate appetite. No reported weight loss or gain. ROS obtained but unsure of reliability given patient's altered mental status. Unable to obtain accurate family history. Surgical history and social history obtained from previous records. Spoke with nursing at [facility] who states that she is weightbearing as tolerated and has been ambulating up and down the halls. Son states she is much more immobile. Nursing staff has noticed she has been requiring intermittent oxygen. No other concerns reported. Allergies Allergy/AdvReac Type Severity Reaction Status Date / Time latex Allergy Unknown HIVES Verified 06/12/19 15:13 Iodinated Contrast Media Allergy Diarrhea Verified 04/21/19 01:49 [Iodinated Contrast- Oral and IV Dye] Lobster Allergy Severe HIVES Uncoded 06/12/19 15:13 METALS Allergy Mild HIVES/ITCHI Uncoded 04/21/19 01:49 NESS Home Medications Home Medications Medication Instructions Recorded Confirmed Type albuterol sulfate [Ventolin HFA] 2 puff INHALATION QID PRN 06/06/18 06/12/19 History anagrelide 1 mg PO DAILY 06/06/18 06/12/19 History hydroxyurea [Hydrea] 500 mg PO DAILY 06/06/18 06/12/19 History ondansetron HCl [Zofran] 8 mg PO TID PRN 06/06/18 06/12/19 History pantoprazole [Protonix] 40 mg PO BID 06/06/18 06/12/19 History pregabalin [Lyrica] 75 mg PO BID 06/06/18 06/12/19 History temazepam [Restoril] 30 mg PO HS PRN 06/06/18 06/12/19 History trazodone 50 mg PO HS 06/06/18 06/12/19 History acetaminophen [Tylenol Extra 500 mg PO Q6H PRN 01/30/19 06/12/19 History Strength] amitriptyline 100 mg PO HS 06/12/19 06/12/19 History fluticasone furoate-vilanterol 1 inh INHALATION DAILY 06/12/19 06/12/19 History [Breo Ellipta] Past Med/Surg History Medical History Pelvic fracture CKD (chronic kidney disease), stage III (Chronic) IBS (irritable bowel syndrome) (Chronic) Diarrhea predominant ; follows with GI Myelodysplastic syndrome (Chronic) H/O: hysterectomy (Chronic) S/P ORIF (open reduction internal fixation) fracture (Chronic) History of peptic ulcer disease (Chronic) History of breast cancer (Chronic) Anemia (Chronic) History of MRSA infection (Chronic) "left hip wound" COPD (chronic obstructive pulmonary disease) (Chronic) Essential thrombocythemia (Chronic) Leukocytosis (Chronic) Fracture of radial neck, left, closed (Resolved) 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) COPD exacerbation (Resolved) Thrombocytosis (Chronic) Myelodysplastic syndrome (Chronic) Surgical History H/O mastectomy (Chronic) right side History of cholecystectomy (Chronic) Status post hysterectomy (Chronic) Status post cholecystectomy (Chronic) Status post mastectomy (Chronic) "modified right mastectomy 1990" Status post total hip replacement, left (Chronic) Family History Other Unknown family medical history Social History Preferred Language: Thai Communication Ability: Effective Tank Officer Required: No Beliefs That Will Affect Care: None marital status: / Current Living Situation: Family Feels Safe at Home: Yes Smoking Status: Current every day smoker Tobacco Type: cigarettes and e-cigarettes ; Smoking End Date: 2 weeks ago last cigarette ; Second Hand Exposure: Yes ; Hx Alcohol Use: No Hx Substance Use: No Review of Systems Review of Systems: Unobtainable due to cognitive status Physical Exam Physical Exam: Constitutional: WD/WN, petite, elderly female, appears older than stated age, vitals as above, NAD, sitting up in bed, pleasant, conversing easily Head: Normocephalic, Atraumatic Eyes: PERRL, conjunctivae normal, anicteric sclerae ENMT: external ear and nose normal, oropharynx mucous membranes dry Neck: trachea midline, no thyromegaly normal visual inspection Respiratory: normal respiratory effort, on Oxymizer 6 L, coarse breath sounds left mid and lower lobe, positive rhonchi which cleared with coughing, lungs clear to auscultation on right, no wheeze or rales noted. Normal insp/exp effort, no accessory muscle use Cardiovascular: RRR, no murmur, no edema Vessels: no JVD or carotid bruit Chest: + Right breast implant noted Abdomen: normal bowel sounds, soft, nontender, no hepatosplenomegaly Musculoskeletal: no cyanosis or clubbing, extremities motor strength 5/5 Skin: no rashes, warm and dry mild turgor Neurologic: PERRL, EOMI, accommodation nl, no face palsy, no dysarthria CN's II-XI intact bilaterally and moves all extremities Psychiatric: A+Ox2 tp person and place, euthymic affect Lymphatic: no cervical or axillary lymphadenopathy : deferred Results & Data Vital Signs (Past 12 Hours) Vital Signs Temp Pulse Resp BP Pulse Ox 06/12/19 16:30 111 H 19 97 06/12/19 16:00 115 H 22 96 06/12/19 15:30 115 H 21 98 06/12/19 15:00 117 H 16 118/58 L 97 06/12/19 14:58 117 H 22 95 06/12/19 14:55 97 06/12/19 14:46 38.2 C H 118 H 22 104/66 94 06/12/19 14:30 121 H 18 96/58 L 96 06/12/19 14:26 120 H 20 97 06/12/19 14:08 119 H 22 104/66 91 Laboratory Results Short CBC 06/12/19 Range/Units 16:02 WBC 31.23 H* (4.8-10.8) K/uL Hgb 11.9 L (12.0-16.0) g/dL Hct 37.3 (37-47) % Plt Count 680 H (130-400) K/uL BMP 06/12/19 16:02 Sodium 140 Potassium 4.8 Chloride 109 H Carbon Dioxide 24 BUN 15 Creatinine 0.95 Glucose 102 H Calcium 8.8 Cardiac Enzymes 06/12/19 Range/Units 16:02 Troponin I 0.050 H* (0-0.045) ng/ml Liver Function 06/12/19 Range/Units 16:02 Total Bilirubin 0.9 (0.2-1) mg/dl AST 61 H (15-37) U/L ALT 24 (12-78) U/L Alkaline Phosphatase 128 H (45-117) U/L Albumin 3.7 (3.4-5.0) gm/dl Urine 06/12/19 Range/Units 16:42 Urine Color Dark Yellow Urine Appearance Clear (Clear) Urine pH 5.5 (4.5-7.5) Ur Specific [place] 1.018 (1.000-1.030) Urine Protein Negative (Negative) Urine Glucose (UA) Negative (Negative) Diagnostic Findings CXR: IMPRESSION: 1. Airspace opacities of the left lung base suggest pneumonia. Follow-up imaging to document resolution recommended. 2. Small left parapneumonic effusion. 3. Unchanged increased density of the right hemithorax secondary to unilateral breast implant. Medications Administered Discontinued Medications Daptomycin 500 mg/ Syringe 10 mls @ 5 mls/min IV NOW STA; Protocol Stop: 06/12/19 14:46 Last Admin: 06/12/19 16:45 Dose: Not Given Documented by: [id number] Piperacillin Sod/Tazobactam Sod (Zosyn) 4.5 gm in 120 mls @ 240 mls/hr IV NOW ONE Stop: 06/12/19 15:14 Last Infusion: 06/12/19 17:15 Dose: 0 mls/hr Documented by: [id number] Admin: 06/12/19 16:43 Dose: 240 mls/hr Documented by: [id number] Sodium Chloride (Nss 1000ml) 1,000 mls @ 999 mls/hr IV .Q1H1M ONE Stop: 06/12/19 15:47 Last Infusion: 06/12/19 16:54 Dose: 0 mls/hr Documented by: [id number] Admin: 06/12/19 15:17 Dose: 999 mls/hr Documented by: [id number] Vancomycin HCl 1,250 mg/ (Sodium Chloride) 275 mls @ 125 mls/hr IV NOW STA Stop: 06/12/19 17:08 Last Admin: 06/12/19 16:48 Dose: 125 mls/hr Documented by: [id number] ECG Rate (beats per minute): 117 Rhythm: sinus tachycardia Findings: + nonspecific-ST abn and + RBBB Comparison ECG Date: from (04/21/19) Change: no significant change Code Status & VTE Plan Code Status Conditional code No CPR Okay for mechanical ventilation and intubation if worsening of pneumonia VTE Prophylaxis Plan VTE Prophylaxis will be ordered: Yes Supervising Physician Co-Signing Physician Notes Attending addendum The patient was seen and examined in the emergency room She has been complaining of weakness, dizziness , shortness of breath and change in mental status for the last 2 days Noted to have febrile with high white count and left lower lobe pneumonia with associated sepsis With intravenous fluid condition is getting better during examination On examination No apparent distress at rest Noted to have tachycardia with heart rate around 110s, febrile with temperature of 38.2 and blood pressure on the lower side systolic around 90s Chest-decreased breath sounds left base with crackles Heart-S1-S2, regular Abdomen-soft, nontender, bowel sounds present Extremities-negative for any edema [employer] 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 Letter on her blood pressure was dropping and she was given intravenous fluid to control the blood pressure Asbestos Microscopist was consulted and she will be transferred to ICU for continued care She will be getting intravenous Zosyn and vancomycin Agree with assessment plan as outlined above by LEVY Santamaria Dr. (1) COPD (chronic obstructive pulmonary disease) COPD type: unspecified COPD Qualified Code(s): J44.9 - Chronic obstructive pulmonary disease, unspecified (2) Pneumonia Laterality: left Lung location: lower lobe of lung Pneumonia type: due to unspecified organism Qualified Code(s): J18.1 - Lobar pneumonia, unspecified organism
[2019-06-12] MEDS: SODIUM CHLORIDE 0.9% 1000ML 1,000 ML IV SCH ×3 (18:08→21:32)
--- NOTE | 2019-06-12 18:36 | CT Scan Report ---
HEAD CT NONCONTRAST CT DOSE: 537.48 mGy.cm HISTORY: Altered mental status. TECHNIQUE: Multiaxial CT images of the head were performed without the use of intravenous contrast. A utomated exposure control was utilized for this study. A dose lowering technique was utilized adheri ng to the principles of ALARA. Comparison: Head CT 07/24/2016. Findings: Small amount of fluid within the left maxillary sinus. The mastoid air cells are clear. The calvarium and skull base are intact. There is no mass, hematoma, midline shift, acute infarct. White matter hypodensity is nonspecific but suggestive of microvascular ischemic change. The ventricles an d sulci demonstrate mild age-related involutional changes. Impression: No significant change compared to the prior study. No acute intracranial abnormality. Electronically signed by: Johnnie Simental M.D. 06/12/2019 6:35 PM
[2019-06-12] MEDS ORDERED: ICU PROTOCOL FOR HYPERGLYCEMIA PRN (19:32)
[2019-06-12] MEDS ORDERED: ALUMINUM/MAGNESIUM SUSP 30 ML UDC PO PRN (19:32)
[2019-06-12] MEDS ORDERED: MAGNESIUM HYDROXIDE SUSP 30 ML UDC PO PRN (19:32)
[2019-06-12] MEDS ORDERED: POLYETHYLENE (MIRALAX) 17 GM PACK PO PRN (19:32)
[2019-06-12] MEDS: ALBUT/IPRATROP 3MG/0.5MG NEB 3 ML VIAL NEB SCH (20:23)
[2019-06-12 20:24] LABS: Base Excess VBG -2.9 mEq/L; Oxygen Saturation VBG 96.1 %; pH VBG 7.38 (7.36-7.41)
--- NOTE | 2019-06-12 20:36 | Critical Care Consultation ---
Date of Consultation June 12, 2019 Assessment & Plan (1) Admitted to intensive care unit: Reason Critically Ill: 78-year-old female presenting with sepsis from pulmonary source as well as acute metabolic encephalopathy requiring close hemodynamic monitoring status post aggressive IV fluid resuscitation in the setting of profound hypotension. NEURO - * CAM ICU: POSITIVE * AMS: * Likely 2/2 encephalopathy in the setting of sepsis. * CT head w/o significant findings. * Monitor for improvement as clinical picture improves. CARDIAC/VASCULAR - * Hypotension: * In the setting of sepsis and hypovolemia. * Will continue w/ aggressive IVF at this time. * Pressors if needed. * Elevated troponin: * w/o significant EKG findings to suggest ischemia --> presumed demand ischemia. * Trend troponins. * EKG: Sinus Tach@117bpm. No ST/T-wave changes. QTc 457ms. * Monitor on telemetry. RESPIRATORY - * LEFT Lower Lobe Pneumonia: * Initially hypoxic and requiring 6L NC. * Will titrate down O2 as tolerated. * ABGs as necessary to assess oxygenation/ventilation issues. * Aggressive pulmonary toilet. * Continue home nebs. * Agree w/ Vanc/Zosyn. * Will add Azithromycin for atypical coverage. * Patient/family amendable to intubation if necessary. GI/NUTRITION - * NPO currently. * Prophylaxis: continue home Protonix RENAL/LYTES - * CKD III * No significant electrolyte derangements currently. * Likely volume down. Will continue w/ IVFs * IVF: NSS@125mL/hr - * Sanchez in place - Strict I&Os. ENDO - * No h/o DM or Thyroid Dz * BSGs per unit protocol. ISS --> gtt per unit policy. HEME - * Myelodysplastic syndrome and thrombocytosis: * Would continue w/ home treatments as scheduled. ID - * Sepsis from pulmonary source: * Vanc/Zosyn as patient is currently living in [facility]. * Will add Azithro for atypical CAP coverage. * PCT wnl. * Follow cultures. LINES/IV ACCESS - * PIVs x3 * Endurance cath to LUE * Sanchez DVT PROPHYLAXIS - * Lovenox * SCDs I have personally spent 45 minutes of critical care time in the direct management of this patient. This is a life/limb threatening event. This includes time spent evaluating patient, direct bedside care, chart review, placing orders, interpretation of diagnostic studies, discussion with consultants, patient, and family members, as well as other required patient management activities. This time is exclusive of all separately billable procedures, and teaching time and separate from and in addition to any other critical care service time. Thank you for allowing us to participate in the care of this patient. Please refer to my attending physician's documentation for any further recommendations. (2) Sepsis: (3) Pneumonia: (4) Pelvic fracture: (5) Elevated troponin: (6) AMS (altered mental status): (7) Metabolic encephalopathy: Supervising Physician Co-Signing Physician Notes I have personally evaluated and examined this patient. I agree with assessment and plan of Grace Salgado PA-C. I agree with the documentation for the date of service of June 12, 2019. I discussed this patient with Grace Salgado via telephone. History of Present Illness Attending Physician: Carlotta Grant MD History of Present Illness Patient is a 78-year-old female with a significant past medical history of hypertension, COPD, tobacco abuse, chronic kidney disease, peptic ulcer disease, myelodysplastic syndrome, and thrombocytosis who presented to the emergency department today with worsening confusion and productive cough. Patient recently sustained a fall while in [facility]. She was hospitalized and then subsequently transferred to rehabilitation facility. She is currently residing at [facility]. Per records, she had been bearing some weight on the affected LEFT-sided leg over the last few days. She was noted to have increasing oxygen requirement over the last 48 hours and today she was noted to be confused. Upon arrival in the emergency department, the patient was noted to be hypoxic and hypotensive. She was treated with aggressive IV fluid resuscitation as well as broad-spectrum antibiotics. She was noted to have a new LEFT lower lobe pneumonia as likely source of sepsis. She has a significant leukocytosis which is even elevated from her baseline MDS. Mild elevation of troponin appreciated. No other significant findings. Upon evaluation in the ICU, the patient is awake, yet confused. Family is present at bedside and offer historical information. Patient is sleeping comfortably. She knows that she is at the [facility]. She is aware of the year of 2018. Allergies Allergy/AdvReac Type Severity Reaction Status Date / Time latex Allergy Intermediate HIVES Verified 06/12/19 19:56 nickel Allergy Intermediate Hives/Itchi Verified 06/12/19 19:57 ness Iodinated Contrast Media AdvReac Mild Diarrhea Verified 06/12/19 19:56 [Iodinated Contrast- Oral and IV Dye] Lobster Allergy Severe HIVES Uncoded 06/12/19 15:13 Home Medications Home Medications Medication Instructions Recorded Confirmed Type albuterol sulfate [Ventolin HFA] 2 puff INHALATION QID PRN 06/06/18 06/12/19 History anagrelide 1 mg PO DAILY 06/06/18 06/12/19 History hydroxyurea [Hydrea] 500 mg PO DAILY 06/06/18 06/12/19 History ondansetron HCl [Zofran] 8 mg PO TID PRN 06/06/18 06/12/19 History pantoprazole [Protonix] 40 mg PO BID 06/06/18 06/12/19 History pregabalin [Lyrica] 75 mg PO BID 06/06/18 06/12/19 History temazepam [Restoril] 30 mg PO HS PRN 06/06/18 06/12/19 History trazodone 50 mg PO HS 06/06/18 06/12/19 History acetaminophen [Tylenol Extra 500 mg PO Q6H PRN 01/30/19 06/12/19 History Strength] amitriptyline 100 mg PO HS 06/12/19 06/12/19 History fluticasone furoate-vilanterol 1 inh INHALATION DAILY 06/12/19 06/12/19 History [Breo Ellipta] Patient History Medical History Pelvic fracture CKD (chronic kidney disease), stage III (Chronic) IBS (irritable bowel syndrome) (Chronic) Diarrhea predominant ; follows with GI Myelodysplastic syndrome (Chronic) H/O: hysterectomy (Chronic) S/P ORIF (open reduction internal fixation) fracture (Chronic) History of peptic ulcer disease (Chronic) History of breast cancer (Chronic) Anemia (Chronic) History of MRSA infection (Chronic) "left hip wound" COPD (chronic obstructive pulmonary disease) (Chronic) Essential thrombocythemia (Chronic) Leukocytosis (Chronic) Fracture of radial neck, left, closed (Resolved) 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) COPD exacerbation (Resolved) Thrombocytosis (Chronic) Myelodysplastic syndrome (Chronic) Surgical History H/O mastectomy (Chronic) right side History of cholecystectomy (Chronic) Status post hysterectomy (Chronic) Status post cholecystectomy (Chronic) Status post mastectomy (Chronic) "modified right mastectomy 1990" Status post total hip replacement, left (Chronic) Family History Other Unknown family medical history Social History Preferred Language: [place] Communication Ability: Effective Drawing In Hand Required: No Beliefs That Will Affect Care: None marital status: / Current Living Situation: Family Other Information That Helps Us Care for You: No Feels Safe at Home: Yes Safety Concerns: Feels Safe At This Time Smoking Status: Current every day smoker Tobacco Type: e-cigarettes ; Do You Dip or Chew Tobacco: No ; Smoking End Date: 2 weeks ago last cigarette ; Second Hand Exposure: No ; Tobacco Cessation Education Requested by Patient: No Hx Alcohol Use: No Hx Substance Use: No Review of Systems Review of Systems: Unobtainable due to cognitive status Physical Exam Physical Exam: VITAL SIGNS - Vital signs and nursing notes were reviewed. GENERAL - 78-year-old female appearing her stated age who is in no acute distress. Somnolent. SKIN - Without rashes. HEAD - NC/AT. EYES - PERRL with EOMI bilaterally. Sclera anicteric. EARS - No deformities of external structures noted on gross examination bilaterally. NOSE - Midline and without cyanosis. No epistaxis or purulent drainage noted. MOUTH/OROPHARYNX - Without perioral cyanosis. Buccal mucosa pink and moist and dry. NECK - Neck with FROM. Supple to palpation. No nuchal rigidity. LUNGS - Chest wall symmetric without accessory muscle use, intercostals retractions, or central cyanosis. Coarse breath sounds noted throughout all lung bloom. CARDIAC - RRR with S1/S2. No murmur, rubs, or gallops appreciated. ABDOMEN - Abdominal contour flat without pulsations or visible masses. BS normoactive all four quadrants. No tenderness, palpable masses, hepatosplenomegaly, or ascites noted. EXTREMITIES - No clubbing or peripheral cyanosis. No pretibial edema present. +4/5 radial and dorsalis pedis pulses palpated throughout. +4/5 strength noted in UE/LE bilaterally. NEUROLOGIC - Cranial nerves II through XII grossly intact. PSYCH -awakens and is aware of location as well as year. Results & Data Vital Signs (Past 12 Hours) Vital Signs Temp Pulse Pulse Resp BP BP BP 06/12/19 20:23 97 H 14 06/12/19 19:45 37.2 C 100 H 16 93/51 L 06/12/19 19:42 100 H 15 93/51 L 06/12/19 19:41 101 H 16 06/12/19 19:19 103 H 25 H 92/51 L 06/12/19 19:15 103 H 12 83/50 L 06/12/19 19:11 104 H 12 06/12/19 18:43 106 H 14 06/12/19 18:39 104 H 17 90/51 L 06/12/19 18:11 106 H 19 82/45 L 06/12/19 18:09 106 H 15 91/45 L 06/12/19 18:08 106 H 20 96/67 L 06/12/19 18:06 106 H 18 86/54 L 06/12/19 18:03 106 H 20 86/52 L 06/12/19 18:00 105 H 21 06/12/19 17:30 110 H 18 06/12/19 17:24 107 H 18 96/52 L 06/12/19 17:00 110 H 21 06/12/19 16:30 111 H 19 06/12/19 16:00 115 H 22 06/12/19 15:30 115 H 21 06/12/19 15:00 117 H 16 118/58 L 06/12/19 14:58 117 H 22 06/12/19 14:55 06/12/19 14:46 38.2 C H 118 H 22 104/66 06/12/19 14:30 121 H 18 96/58 L 06/12/19 14:26 120 H 20 06/12/19 14:08 119 H 22 104/66 Pulse Ox 06/12/19 20:23 98 06/12/19 19:45 06/12/19 19:42 06/12/19 19:41 06/12/19 19:19 96 06/12/19 19:15 96 06/12/19 19:11 97 06/12/19 18:43 96 06/12/19 18:39 98 06/12/19 18:11 98 06/12/19 18:09 97 06/12/19 18:08 97 06/12/19 18:06 97 06/12/19 18:03 97 06/12/19 18:00 98 06/12/19 17:30 97 06/12/19 17:24 99 06/12/19 17:00 97 06/12/19 16:30 97 06/12/19 16:00 96 06/12/19 15:30 98 06/12/19 15:00 97 06/12/19 14:58 95 06/12/19 14:55 97 06/12/19 14:46 94 06/12/19 14:30 96 06/12/19 14:26 97 06/12/19 14:08 91 PG Care Time/CCT Total # of Minutes Spent Total Time Spent with Patient: Total time spent is greater than 50% in coordinat ion of care (as documented) at patient's floor/unit and/or counseling patient: Critical Care Time: Yes Total Critical Care Time: 45 (1) Sepsis Sepsis acute organ dysfunction status: unspecified Sepsis type: sepsis due to unspecified organism Qualified Code(s): A41.9 - Sepsis, unspecified organism (2) Pneumonia Laterality: left Lung location: lower lobe of lung Pneumonia type: due to unspecified organism Qualified Code(s): J18.1 - Lobar pneumonia, unspecified organism
[2019-06-12] MEDS ORDERED: INFLUENZA ADMINISTRATION CHARGE ONE (20:45)
--- NOTE | 2019-06-12 20:54 | Pharmacy Report ---
Pharmacy Abx Initial Consult - Date of Service June 12, 2019 - Pharmacy Dosing Scope Date of Consult: 06/12/19 Consultation requested by: Librado MILLER Pharmacy is consulted to initiate VANCOMYCIN/ZOSYN IV dosing therapy, order appropriate labs and adjust drug dose/frequency. - Subjective The patient is a 78 year old F admitted on 06/12/19 17:46 with respiratory failure/sepsis/pneumonia/elevated troponin. - Objective Height: 5 ft 4 in Weight: 55.3 kg Vital Signs (Past 12hrs): Vital Signs Temp Pulse Pulse Resp BP BP BP 06/12/19 20:23 97 H 14 06/12/19 19:45 37.2 C 100 H 16 93/51 L 06/12/19 19:42 100 H 15 93/51 L 06/12/19 19:41 101 H 16 06/12/19 19:19 103 H 25 H 92/51 L 06/12/19 19:15 103 H 12 83/50 L 06/12/19 19:11 104 H 12 06/12/19 18:43 106 H 14 06/12/19 18:39 104 H 17 90/51 L 06/12/19 18:11 106 H 19 82/45 L 06/12/19 18:09 106 H 15 91/45 L 06/12/19 18:08 106 H 20 96/67 L 06/12/19 18:06 106 H 18 86/54 L 06/12/19 18:03 106 H 20 86/52 L 06/12/19 18:00 105 H 21 06/12/19 17:30 110 H 18 06/12/19 17:24 107 H 18 96/52 L 06/12/19 17:00 110 H 21 06/12/19 16:30 111 H 19 06/12/19 16:00 115 H 22 06/12/19 15:30 115 H 21 06/12/19 15:00 117 H 16 118/58 L 06/12/19 14:58 117 H 22 06/12/19 14:55 06/12/19 14:46 38.2 C H 118 H 22 104/66 06/12/19 14:30 121 H 18 96/58 L 06/12/19 14:26 120 H 20 06/12/19 14:08 119 H 22 104/66 Pulse Ox 06/12/19 20:23 98 06/12/19 19:45 06/12/19 19:42 06/12/19 19:41 06/12/19 19:19 96 06/12/19 19:15 96 06/12/19 19:11 97 06/12/19 18:43 96 06/12/19 18:39 98 06/12/19 18:11 98 06/12/19 18:09 97 06/12/19 18:08 97 06/12/19 18:06 97 06/12/19 18:03 97 06/12/19 18:00 98 06/12/19 17:30 97 06/12/19 17:24 99 06/12/19 17:00 97 06/12/19 16:30 97 06/12/19 16:00 96 06/12/19 15:30 98 06/12/19 15:00 97 06/12/19 14:58 95 06/12/19 14:55 97 06/12/19 14:46 94 06/12/19 14:30 96 06/12/19 14:26 97 06/12/19 14:08 91 Lab Results (24hrs): Laboratory Tests (24 Hours) 06/12/19 06/12/19 06/12/19 16:02 16:02 16:02 WBC 31.23 H* Neut # (Auto) 28.30 H Creatinine 0.95 Est Cr Clr Drug Dosing 40.3 Procalcitonin 0.24 Micro Results: 06/12/19 16:42 Urine Culture - Pending Urine,Straight Cath 06/12/19 16:02 Aerobic Blood Culture - Pending Blood Anaerobic Blood Culture - Pending 06/12/19 15:20 Aerobic Blood Culture - Pending Blood Anaerobic Blood Culture - Pending - Risk Factors for Resistance * Immunocompromised - myelodysplastic syndrome - Assessment & Plan Assessment 78 year old F admitted to 1-ICU with respiratory failure/sepsis picture/pneumonia starting broad spectrum IV antibiotics Plan Vancomycin and Zosyn for treatment of Sepsis/Pneumonia Vancomycin IV * Estimated PK Parameters: Vd 0.7 L/kg, Abimael 0.034 hr-1, t1/2 20.4 hr * Loading dose: 1250 mg (25 mg/kg) * Maintenance dose: 750 mg IV (13.5 mg/kg) every 24 hours * Goal trough level for sepsis/PNX : 15 to 20 mcg/mL * Pre steady state trough level ordered for Monday06/14/19 before the 2PM dose Piperacillin/tazobactam * 3.375 g bolus administered over 30 minutes, then 3.375 g IV extended infusion every 8 hours for CrCl greater than 20 mL/min Pharmacy will continue to follow and will adjust dose/frequency as necessary. Thank you.
[2019-06-12] MEDS ORDERED: INFLUENZA VACCINE HIGH DOSE 65+ 0.5 ML SYR IM ONE (21:00)
[2019-06-12] MEDS ORDERED: ENOXAPARIN INJ 30 MG/0.3 ML SYR SQ SCH (21:00)
[2019-06-12] MEDS: AMITRIPTYLINE HCL 100 MG TAB PO SCH (21:30)
[2019-06-12] MEDS: PANTOprazole 40 MG TAB PO SCH (21:31)
[2019-06-12] MEDS: PIPERACILLIN/TAZOBACTAM 3.375 GM in DEXTROSE 5% 100 ML IV SCH (21:34)
--- NOTE | 2019-06-12 22:43 | Procedure Note ---
Procedure Note Date of Service June 12, 2019 Procedure: Fci Indwelling Peripherally Inserted IV Catheter Placement Attending: Dr. Heck APC: Ventura Salgado PA-C Indication: Need for IV Access, Poor Vascular Access Anesthesia: None Verbal consent was obtained from patient prior to performing the procedure. A time-out was completed verifying correct patient, procedure, site, positioning, and implant(s) or special equipment if applicable. Utilizing bedside ultrasound, vascularity of the LEFT upper extremity was assessed. Vessel size was noted for appropriate catheter selection and skin was marked with gentle pressure. Patients LEFT upper extremity was prepped and draped in the usual sterile fashion utilizing chlorhexidine. Ultrasound guidance was used to aid needle placement. A 20 g Endurance Catheter was introduced into the LEFT Brachial vein under direct ultrasound guidance. Guide wire was easily deployed without resistance. Catheter was threaded over the guide wire without resistance and the entire apparatus was removed intact. Good venous blood return was noted in the catheter. The IV catheter was easily flushed with sterile saline flush. Sterile clave was attached to the end of the catheter and good blood return was again noted. Tourniquet was released. StatLock device and sterile dressing were applied. The patient tolerated the procedure well. Blood Loss: Minimal Complications: None Procedural Ultrasound Guidance: Procedure Date: 06/12/2019 Indication: Poor Vascular Access Attending: Dr. Heck APC: Ventura Salgado PA-C Artery/Veins Identified: YES Access confirmed in Vein with ultrasound: YES Complications: NONE Patient tolerated procedure: WELL Coding
--- NOTE | 2019-06-12 22:52 | Emergency Department Note ---
Entered by Jessica St acting as a scribe for Tuan Koch MD ED Provider Note CHIEF COMPLAINT: Altered mental status HISTORY OF PRESENT ILLNESS: The patient is a 78 year old female presenting to the Emergency Department via EMS complaining of worsening altered mental status starting today. The nurse reports that the patient was brought to the ED for worsening confusion. She states that the patient has a fever. She explains that the patient is currently residing at [facility] for a closed pelvic fracture. She states that the patient follows with [facility] PCP. 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 The patient reports that she has a cough. The HPI and ROS are limited due to AMS. REVIEW OF SYSTEMS: The HPI and ROS are limited due to AMS. PMHx/PSHx: See past medical and surgical history lists. SOCIAL HISTORY: Patient lives at home. . Former smoker. PHYSICAL EXAM: GENERAL: Awake, alert, tired-appearing, HEENT: Atraumatic. Oropharynx unremarkable. EYES: PERRL. Normal conjunctiva. Sclera non-icteric. NECK: Inspection normal. Non-tender. Supple. No nuchal rigidity. FROM. No masses. RESPIRATORY: Bilateral rhonchi, worse on the left. Clear to auscultation. No wheezes. No rales. Normal respiratory effort. CARDIAC: Tachycardic rate. Normal rhythm. No murmurs. No rubs. Extremities warm and well perfused. Pulses equal. No JVD. GI: Soft, non-distended. No tenderness to palpation. No rebound or guarding. No masses. RECTAL: Deferred. MUSCULOSKELETAL: Atraumatic. Chest examination reveals no tenderness. The back is symmetrical on inspection without obvious abnormality. There is no CVA tenderness to palpation. No joint edema. LOWER EXTREMITIES: Calves are equal size bilaterally and non-tender. No edema. No discoloration. NEURO: Altered sensorium. No sensory or motor deficits noted. SKIN: No rash or jaundice noted. EMERGENCY DEPARTMENT COURSE: 1437: Past medical records reviewed. The patient was evaluated in room C2B, and a complete history and physical examination were performed. 1445: Initiated code sepsis. 1616: I reevaluated the patient at this time. Family is at the patients bedside. 1656: I discussed the patient's case with Kami Presley PA-C. Dr. Grant - [facility] hospitalist. He will evaluate the patient for further management. 1815: I reevaluated the patient at this time. Her blood pressure dropped at this time. She will receive more fluids. She will go to the ICU. I updated Destini Phillip and Dr. Grant about this. CRITICAL CARE: I have personally spent 60 minutes of critical care time in the direct management of this patient. This includes bedside care, interpretation of diagnostic studies, and testing, discussion with consultants, patient, and family members, and other required patient management activities. This 60 minutes is in excess of all separately billable procedures. MEDICAL DECISION MAKING: C2 Prior records/ancillary studies reviewed and summarized above. Nursing notes reviewed and agree them. The patient's history was concerning for altered mental status. Differential diagnosis: Etiologies such as infection, hypoglycemia, electrolyte abnormalities, cardiac sources, intracerebral event, toxicologic, neurologic, as well as others were entertained. Physical examination: As above. The patient was confused and disoriented. Tachycardia noted. Borderline hypotension. ER treatment provided: IV Lock Normal saline hydration 1 L given prehospital. Patient received 1 L here +125 mL an hour. IV vancomycin IV Zosyn On reassessment the patient is doing somewhat better.. IV Tylenol The patient had another episode of low blood pressure and was given a 500 mL saline bolus. Diagnostics interpretation by me: ECG: Tachycardia without acute ischemic change. The labs revealed a significant leukocytosis of 31,000. Mild anemia present. Her chemistry panel was unremarkable otherwise. Ammonia negative. Urinalysis did not show signs of infection. Lactate was ordered but could not be performed due to the patient's difficulty in obtaining blood. Imaging studies: Chest x-ray concerning for a left lower lobe pneumonia. Head CT negative for acute process. Consultation: A consultation was placed with the [facility] hospitalist. The case was discussed and diagnostics were reviewed. The patient was evaluated in the ER for further treatment. After the patient was evaluated that she had another episode of mild hypotension that responded to normal saline. I did notify the hospitalist service, Kami Phillip PA-C. We discussed the issue and I recommended ICU care for this septic patient. IMPRESSION: Sepsis, Pneumonia PLAN: Being Evaluated by Hospitalist The scribe's documentation has been prepared under my direction and personally reviewed by me in its entirety. I confirm that the note above accurately reflects all work, treatment, procedures, and medical decision making performed by me. Impression & Plan Sepsis, Pneumonia Past Med/Surg History Medical History Pelvic fracture CKD (chronic kidney disease), stage III (Chronic) IBS (irritable bowel syndrome) (Chronic) Diarrhea predominant ; follows with GI Myelodysplastic syndrome (Chronic) H/O: hysterectomy (Chronic) S/P ORIF (open reduction internal fixation) fracture (Chronic) History of peptic ulcer disease (Chronic) History of breast cancer (Chronic) Anemia (Chronic) History of MRSA infection (Chronic) "left hip wound" COPD (chronic obstructive pulmonary disease) (Chronic) Essential thrombocythemia (Chronic) Leukocytosis (Chronic) Fracture of radial neck, left, closed (Resolved) 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) COPD exacerbation (Resolved) Thrombocytosis (Chronic) Myelodysplastic syndrome (Chronic) Surgical History H/O mastectomy (Chronic) right side History of cholecystectomy (Chronic) Status post hysterectomy (Chronic) Status post cholecystectomy (Chronic) Status post mastectomy (Chronic) "modified right mastectomy 1990" Status post total hip replacement, left (Chronic) Family History Other Unknown family medical history Social History Preferred Language: Thai Communication Ability: Effective Chips Screen Tender Required: No Beliefs That Will Affect Care: None marital status: / Current Living Situation: Family Other Information That Helps Us Care for You: No Feels Safe at Home: Yes Safety Concerns: Feels Safe At This Time Smoking Status: Current every day smoker Tobacco Type: e-cigarettes ; Do You Dip or Chew Tobacco: No ; Smoking End Date: 2 weeks ago last cigarette ; Second Hand Exposure: No ; Tobacco Cessation Education Requested by Patient: No Hx Alcohol Use: No Hx Substance Use: No Results & Data Vital Signs Vital Signs - 24 hr 06/12/19 14:08 06/12/19 14:26 06/12/19 14:30 Temperature Temperature Source Sepsis Recent Fever Within 48 Hours Sepsis New/Unexplained Change in Mental Status Sepsis Action Taken by Nursing Pulse Rate 119 H 120 H 121 H Pulse Rate from SpO2 Sensor 121 H 117 H 121 H Respiratory Rate 22 20 18 Respiratory Effort / Characteristics Respiratory Depth Respiratory Pattern Blood Pressure 104/66 96/58 L Blood Pressure Mean 78 70 Pulse Oximetry 91 97 96 Oxygen Delivery Method Oxygen Flow Rate 6 6 6 06/12/19 14:46 06/12/19 14:55 06/12/19 14:58 Temperature 38.2 C H Temperature Source Oral Sepsis Recent Fever Within 48 Hours Yes Sepsis New/Unexplained Change in Mental Status Yes Sepsis Action Taken by Nursing Physician Notified Pulse Rate 118 H 117 H Pulse Rate from SpO2 Sensor Respiratory Rate 22 22 Respiratory Effort / Characteristics Non-Labored Spontaneous Respiratory Depth Normal Respiratory Pattern Regular Blood Pressure 104/66 Blood Pressure Mean 78 Pulse Oximetry 94 97 95 Oxygen Delivery Method Oxymask Oxymask Oxymask Oxygen Flow Rate 6 6 6 06/12/19 15:00 06/12/19 15:30 06/12/19 16:00 Temperature Temperature Source Sepsis Recent Fever Within 48 Hours Sepsis New/Unexplained Change in Mental Status Sepsis Action Taken by Nursing Pulse Rate 117 H 115 H 115 H Pulse Rate from SpO2 Sensor 116 H 115 H 115 H Respiratory Rate 16 21 22 Respiratory Effort / Characteristics Respiratory Depth Respiratory Pattern Blood Pressure 118/58 L Blood Pressure Mean 78 Pulse Oximetry 97 98 96 Oxygen Delivery Method Oxygen Flow Rate 06/12/19 16:30 06/12/19 17:00 06/12/19 17:24 Temperature Temperature Source Sepsis Recent Fever Within 48 Hours Sepsis New/Unexplained Change in Mental Status Sepsis Action Taken by Nursing Pulse Rate 111 H 110 H 107 H Pulse Rate from SpO2 Sensor 110 H 109 H 111 H Respiratory Rate 19 21 18 Respiratory Effort / Characteristics Respiratory Depth Respiratory Pattern Blood Pressure 96/52 L Blood Pressure Mean 66 Pulse Oximetry 97 97 99 Oxygen Delivery Method Oxygen Flow Rate 06/12/19 17:30 Temperature Temperature Source Sepsis Recent Fever Within 48 Hours Sepsis New/Unexplained Change in Mental Status Sepsis Action Taken by Nursing Pulse Rate 110 H Pulse Rate from SpO2 Sensor 110 H Respiratory Rate 18 Respiratory Effort / Characteristics Respiratory Depth Respiratory Pattern Blood Pressure Blood Pressure Mean Pulse Oximetry 97 Oxygen Delivery Method Oxygen Flow Rate Home Medications Current Medication List: was personally reviewed by me Laboratory Data Attestation: I reviewed the patient's lab results. Result diagrams: 06/12/19 16:02 06/12/19 16:02 Lab Results 06/12/19 06/12/19 06/12/19 Range/Units 14:17 16:02 16:02 WBC 31.23 H* (4.8-10.8) K/uL RBC 3.46 L (4.2-5.4) M/uL Hgb 11.9 L (12.0-16.0) g/dL Hct 37.3 (37-47) % MCV 107.8 H (80-100) fL MCH 34.4 H (25-34) pg MCHC 31.9 L (32-36) g/dL RDW Std Deviation 118.0 H (36.4-46.3) fL RDW Coeff of Radha 29.9 H (11.5-14.5) % Plt Count 680 H (130-400) K/uL MPV 13.4 H (7.4-10.4) fL Immature Gran % (Auto) 0.6 % Neut % (Auto) 90.7 % Lymph % (Auto) 3.7 % [place] % (Auto) 4.8 % Eos % (Auto) 0.0 % Baso % (Auto) 0.2 % Immature Gran # (Auto) 0.19 H (0.00-0.02) K/uL Neut # (Auto) 28.30 H (1.4-6.5) K/uL Lymph # (Auto) 1.17 L (1.2-3.4) K/uL [place] # (Auto) 1.49 H (0.11-0.59) K/uL Eos # (Auto) 0.01 (0-0.5) K/uL Baso # (Auto) 0.07 (0-0.2) K/uL Giant Platelets 1+ Polychromasia 1+ Poikilocytosis Present Anisocytosis Present Macrocytosis Present Tear Drop Cells Occasional Ovalocytes 1+ PT 11.0 (9.0-12.0) Seconds INR 1.1 (0.9-1.1) APTT 31.2 H (21.0-31.0) Seconds PTT Ratio 1.2 VBG pH (7.36-7.41) VBG pCO2 (38-50) mmHg VBG pO2 mmHg VBG HCO3 mmol/L VBG O2 Saturation % VBG Base Excess mEq/L Barometric Pressure mm/Hg Sodium (136-145) mmol/L Potassium (3.5-5.1) mmol/L Chloride (98-107) mmol/L Carbon Dioxide (21-32) mmol/L Anion Gap (3-11) BUN (7-18) mg/dl Creatinine (0.6-1.2) mg/dl Est Cr Clr Drug Dosing ml/min Est GFR ( Amer) Est GFR (Non-Af Amer) BUN/Creatinine Ratio (10-20) Glucose (70-99) mg/dl POC Glucose 112 H (70-99) Calcium (8.5-10.1) mg/dl Magnesium (1.8-2.4) mg/dl Total Bilirubin (0.2-1) mg/dl AST (15-37) U/L ALT (12-78) U/L Alkaline Phosphatase (45-117) U/L Ammonia (11-32) umol/L Troponin I (0-0.045) ng/ml Total Protein (6.4-8.2) gm/dl Albumin (3.4-5.0) gm/dl Globulin (2.5-4.0) gm/dl Albumin/Globulin Ratio (0.9-2) Procalcitonin (0-0.5) ng/ml Urine Color Urine Appearance (Clear) Urine pH (4.5-7.5) Ur Specific [place] (1.000-1.030) Urine Protein (Negative) Urine Glucose (UA) (Negative) Urine Ketones (Negative) Urine Blood (Negative) Urine Nitrite (Negative) Urine Bilirubin (Negative) Urine Urobilinogen (Negative) Ur Leukocyte Esterase (Negative) Influenza Type A Ag (Neg) Influenza Type B Ag (Neg) Blood Type Antibody Screen 06/12/19 06/12/19 06/12/19 Range/Units 16:02 16:02 16:02 WBC (4.8-10.8) K/uL RBC (4.2-5.4) M/uL Hgb (12.0-16.0) g/dL Hct (37-47) % MCV (80-100) fL MCH (25-34) pg MCHC (32-36) g/dL RDW Std Deviation (36.4-46.3) fL RDW Coeff of Radha (11.5-14.5) % Plt Count (130-400) K/uL MPV (7.4-10.4) fL Immature Gran % (Auto) % Neut % (Auto) % Lymph % (Auto) % [place] % (Auto) % Eos % (Auto) % Baso % (Auto) % Immature Gran # (Auto) (0.00-0.02) K/uL Neut # (Auto) (1.4-6.5) K/uL Lymph # (Auto) (1.2-3.4) K/uL [place] # (Auto) (0.11-0.59) K/uL Eos # (Auto) (0-0.5) K/uL Baso # (Auto) (0-0.2) K/uL Giant Platelets Polychromasia Poikilocytosis Anisocytosis Macrocytosis Tear Drop Cells Ovalocytes PT (9.0-12.0) Seconds INR (0.9-1.1) APTT (21.0-31.0) Seconds PTT Ratio VBG pH (7.36-7.41) VBG pCO2 (38-50) mmHg VBG pO2 mmHg VBG HCO3 mmol/L VBG O2 Saturation % VBG Base Excess mEq/L Barometric Pressure mm/Hg Sodium 140 (136-145) mmol/L Potassium 4.8 (3.5-5.1) mmol/L Chloride 109 H (98-107) mmol/L Carbon Dioxide 24 (21-32) mmol/L Anion Gap 7.0 (3-11) BUN 15 (7-18) mg/dl Creatinine 0.95 (0.6-1.2) mg/dl Est Cr Clr Drug Dosing 40.3 ml/min Est GFR ( Amer) 67.4 Est GFR (Non-Af Amer) 58.2 BUN/Creatinine Ratio 15.8 (10-20) Glucose 102 H (70-99) mg/dl POC Glucose (70-99) Calcium 8.8 (8.5-10.1) mg/dl Magnesium 2.1 (1.8-2.4) mg/dl Total Bilirubin 0.9 (0.2-1) mg/dl AST 61 H (15-37) U/L ALT 24 (12-78) U/L Alkaline Phosphatase 128 H (45-117) U/L Ammonia 11.8 (11-32) umol/L Troponin I 0.050 H* (0-0.045) ng/ml Total Protein 7.4 (6.4-8.2) gm/dl Albumin 3.7 (3.4-5.0) gm/dl Globulin 3.7 (2.5-4.0) gm/dl Albumin/Globulin Ratio 1.0 (0.9-2) Procalcitonin 0.24 (0-0.5) ng/ml Urine Color Urine Appearance (Clear) Urine pH (4.5-7.5) Ur Specific [place] (1.000-1.030) Urine Protein (Negative) Urine Glucose (UA) (Negative) Urine Ketones (Negative) Urine Blood (Negative) Urine Nitrite (Negative) Urine Bilirubin (Negative) Urine Urobilinogen (Negative) Ur Leukocyte Esterase (Negative) Influenza Type A Ag (Neg) Influenza Type B Ag (Neg) Blood Type Antibody Screen 06/12/19 06/12/19 06/12/19 Range/Units 16:02 16:11 16:42 WBC (4.8-10.8) K/uL RBC (4.2-5.4) M/uL Hgb (12.0-16.0) g/dL Hct (37-47) % MCV (80-100) fL MCH (25-34) pg MCHC (32-36) g/dL RDW Std Deviation (36.4-46.3) fL RDW Coeff of Radha (11.5-14.5) % Plt Count (130-400) K/uL MPV (7.4-10.4) fL Immature Gran % (Auto) % Neut % (Auto) % Lymph % (Auto) % [place] % (Auto) % Eos % (Auto) % Baso % (Auto) % Immature Gran # (Auto) (0.00-0.02) K/uL Neut # (Auto) (1.4-6.5) K/uL Lymph # (Auto) (1.2-3.4) K/uL [place] # (Auto) (0.11-0.59) K/uL Eos # (Auto) (0-0.5) K/uL Baso # (Auto) (0-0.2) K/uL Giant Platelets Polychromasia Poikilocytosis Anisocytosis Macrocytosis Tear Drop Cells Ovalocytes PT (9.0-12.0) Seconds INR (0.9-1.1) APTT (21.0-31.0) Seconds PTT Ratio VBG pH 7.30 L (7.36-7.41) VBG pCO2 54 H (38-50) mmHg VBG pO2 23 mmHg VBG HCO3 26 mmol/L VBG O2 Saturation < 60.0 % VBG Base Excess -1.5 mEq/L Barometric Pressure 737.0 mm/Hg Sodium (136-145) mmol/L Potassium (3.5-5.1) mmol/L Chloride (98-107) mmol/L Carbon Dioxide (21-32) mmol/L Anion Gap (3-11) BUN (7-18) mg/dl Creatinine (0.6-1.2) mg/dl Est Cr Clr Drug Dosing ml/min Est GFR ( Amer) Est GFR (Non-Af Amer) BUN/Creatinine Ratio (10-20) Glucose (70-99) mg/dl POC Glucose (70-99) Calcium (8.5-10.1) mg/dl Magnesium (1.8-2.4) mg/dl Total Bilirubin (0.2-1) mg/dl AST (15-37) U/L ALT (12-78) U/L Alkaline Phosphatase (45-117) U/L Ammonia (11-32) umol/L Troponin I (0-0.045) ng/ml Total Protein (6.4-8.2) gm/dl Albumin (3.4-5.0) gm/dl Globulin (2.5-4.0) gm/dl Albumin/Globulin Ratio (0.9-2) Procalcitonin (0-0.5) ng/ml Urine Color Dark Yellow Urine Appearance Clear (Clear) Urine pH 5.5 (4.5-7.5) Ur Specific [place] 1.018 (1.000-1.030) Urine Protein Negative (Negative) Urine Glucose (UA) Negative (Negative) Urine Ketones Negative (Negative) Urine Blood Negative (Negative) Urine Nitrite Negative (Negative) Urine Bilirubin Negative (Negative) Urine Urobilinogen Negative (Negative) Ur Leukocyte Esterase Negative (Negative) Influenza Type A Ag (Neg) Influenza Type B Ag (Neg) Blood Type A Positive Antibody Screen NEGATIVE 06/12/19 Range/Units 17:11 WBC (4.8-10.8) K/uL RBC (4.2-5.4) M/uL Hgb (12.0-16.0) g/dL Hct (37-47) % MCV (80-100) fL MCH (25-34) pg MCHC (32-36) g/dL RDW Std Deviation (36.4-46.3) fL RDW Coeff of Radha (11.5-14.5) % Plt Count (130-400) K/uL MPV (7.4-10.4) fL Immature Gran % (Auto) % Neut % (Auto) % Lymph % (Auto) % [place] % (Auto) % Eos % (Auto) % Baso % (Auto) % Immature Gran # (Auto) (0.00-0.02) K/uL Neut # (Auto) (1.4-6.5) K/uL Lymph # (Auto) (1.2-3.4) K/uL [place] # (Auto) (0.11-0.59) K/uL Eos # (Auto) (0-0.5) K/uL Baso # (Auto) (0-0.2) K/uL Giant Platelets Polychromasia Poikilocytosis Anisocytosis Macrocytosis Tear Drop Cells Ovalocytes PT (9.0-12.0) Seconds INR (0.9-1.1) APTT (21.0-31.0) Seconds PTT Ratio VBG pH (7.36-7.41) VBG pCO2 (38-50) mmHg VBG pO2 mmHg VBG HCO3 mmol/L VBG O2 Saturation % VBG Base Excess mEq/L Barometric Pressure mm/Hg Sodium (136-145) mmol/L Potassium (3.5-5.1) mmol/L Chloride (98-107) mmol/L Carbon Dioxide (21-32) mmol/L Anion Gap (3-11) BUN (7-18) mg/dl Creatinine (0.6-1.2) mg/dl Est Cr Clr Drug Dosing ml/min Est GFR ( Amer) Est GFR (Non-Af Amer) BUN/Creatinine Ratio (10-20) Glucose (70-99) mg/dl POC Glucose (70-99) Calcium (8.5-10.1) mg/dl Magnesium (1.8-2.4) mg/dl Total Bilirubin (0.2-1) mg/dl AST (15-37) U/L ALT (12-78) U/L Alkaline Phosphatase (45-117) U/L Ammonia (11-32) umol/L Troponin I (0-0.045) ng/ml Total Protein (6.4-8.2) gm/dl Albumin (3.4-5.0) gm/dl Globulin (2.5-4.0) gm/dl Albumin/Globulin Ratio (0.9-2) Procalcitonin (0-0.5) ng/ml Urine Color Urine Appearance (Clear) Urine pH (4.5-7.5) Ur Specific [place] (1.000-1.030) Urine Protein (Negative) Urine Glucose (UA) (Negative) Urine Ketones (Negative) Urine Blood (Negative) Urine Nitrite (Negative) Urine Bilirubin (Negative) Urine Urobilinogen (Negative) Ur Leukocyte Esterase (Negative) Influenza Type A Ag Neg for Influ A (Neg) Influenza Type B Ag Neg for Influ B (Neg) Blood Type Antibody Screen Administered Medications Albuterol (Duoneb) 3 ml NEB QIDR SHORTY Stop: 07/12/19 19:31 Last Admin: 06/12/19 20:23 Dose: 3 ml Documented by: [id number] Amitriptyline HCl (Elavil) 100 mg PO HS SHORTY Stop: 07/12/19 20:59 Last Admin: 06/12/19 21:30 Dose: 100 mg Documented by: [id number] Enoxaparin Sodium (Lovenox) 30 mg SQ Q24H SHORTY Stop: 07/12/19 20:59 Last Admin: 06/12/19 21:30 Dose: 30 mg Documented by: [id number] Sodium Chloride (Nss 1000ml) 1,000 mls @ 125 mls/hr IV .Q8H [facility] Stop: 07/12/19 19:31 Last Admin: 06/12/19 21:32 Dose: Not Given Documented by: [id number] Piperacillin Sod/Tazobactam (Sod 3.375 gm/ Dextrose) 115 mls @ 28.75 mls/hr IV Q8 [facility]; Protocol Stop: 06/19/19 13:59 Last Admin: 06/12/19 21:34 Dose: 28.8 mls/hr Documented by: [id number] Pantoprazole Sodium (Protonix) 40 mg PO BID SHORTY Stop: 07/12/19 20:59 Last Admin: 06/12/19 21:31 Dose: 40 mg Documented by: [id number] Discontinued Medications Albuterol (Duoneb) 3 ml NEB NOW STA Stop: 06/12/19 17:48 Last Admin: 06/12/19 18:43 Dose: 3 ml Documented by: [id number] Daptomycin 500 mg/ Syringe 10 mls @ 5 mls/min IV NOW STA; Protocol Stop: 06/12/19 14:46 Last Admin: 06/12/19 16:45 Dose: Not Given Documented by: [id number] Piperacillin Sod/Tazobactam Sod (Zosyn) 4.5 gm in 120 mls @ 240 mls/hr IV NOW ONE Stop: 06/12/19 15:14 Last Infusion: 06/12/19 17:15 Dose: 0 mls/hr Documented by: [id number] Admin: 06/12/19 16:43 Dose: 240 mls/hr Documented by: [id number] Sodium Chloride (Nss 1000ml) 1,000 mls @ 999 mls/hr IV .Q1H1M ONE Stop: 06/12/19 15:47 Last Infusion: 06/12/19 16:54 Dose: 0 mls/hr Documented by: [id number] Admin: 06/12/19 15:17 Dose: 999 mls/hr Documented by: [id number] Sodium Chloride (Nss 1000ml) 1,000 mls @ 125 mls/hr IV .Q8H SHORTY Stop: 07/12/19 14:59 Last Admin: 06/12/19 20:40 Dose: 125 mls/hr Documented by: [id number] Infusion: 06/12/19 20:40 Dose: 125 mls/hr Documented by: [id number] Admin: 06/12/19 18:08 Dose: 125 mls/hr Documented by: [id number] Acetaminophen (Ofirmev) 1,000 mg in 100 mls @ 400 mls/hr IV NOW STA Stop: 06/12/19 15:01 Last Infusion: 06/12/19 19:11 Dose: 0 mls/hr Documented by: [id number] Admin: 06/12/19 18:08 Dose: 400 mls/hr Documented by: [id number] Vancomycin HCl 1,250 mg/ (Sodium Chloride) 275 mls @ 125 mls/hr IV NOW STA Stop: 10/09/19 17:08 Last Infusion: 06/12/19 19:13 Dose: 0 mls/hr Documented by: [id number] Admin: 06/12/19 16:48 Dose: 125 mls/hr Documented by: [id number] Sodium Chloride (Nss 1000ml) 500 mls @ 999 mls/hr IV .Q31M ONE Stop: 06/12/19 18:17 Last Admin: 06/12/19 19:12 Dose: Not Given Documented by: [id number] Sodium Chloride (Nss 1000ml) 500 mls @ 999 mls/hr IV .Q31M ONE Stop: 06/12/19 18:41 Last Admin: 06/12/19 19:23 Dose: 999 mls/hr Documented by: [id number] Imaging Data Radiologist's Impression: Radiology results as stated below per my review and the radiologist's interpretation: HEAD CT NONCONTRAST CT DOSE: 537.48 mGy.cm HISTORY: Altered mental status. TECHNIQUE: Multiaxial CT images of the head were performed without the use of intravenous contrast. Automated exposure control was utilized for this study. A dose lowering technique was utilized adhering to the principles of ALARA. Comparison: Head CT 07/24/2016. Findings: Small amount of fluid within the left maxillary sinus. The mastoid air cells are clear. The calvarium and skull base are intact. There is no mass, he matoma, midline shift, acute infarct. White matter hypodensity is nonspecific but suggestive of microvascular ischemic change. The ventricles and sulci demonstrate mild age-related involutional changes. Impression: No significant change compared to the prior study. No acute intracranial abnormality. Electronically signed by: Johnnie Simental M.D. 06/12/2019 6:35 PM XR chest 1V portable HISTORY: 78 years-old Female Sepsis acute sepsis COMPARISON: Chest radiograph 04/21/2019, CT abdomen and pelvis 01/30/2019 TECHNIQUE: Portable AP view of the chest FINDINGS: Cardiac silhouette is mildly enlarged. Calcified plaque of the thoracic aortic arch. No pneumothorax. Patchy left basilar opacities with trace left pleural effusion. Right lung is generally clear. Hazy opacity of the right midlung is unchanged, likely secondary to unilateral breast implant. Project of the right axilla. Probable bone island of the right humeral head with severe likely posttraumatic changes of the proximal left humerus. IMPRESSION: 1. Airspace opacities of the left lung base suggest pneumonia. Follow-up imaging to document resolution recommended. 2. Small left parapneumonic effusion. 3. Unchanged increased density of the right hemithorax secondary to unilateral breast implant. The above report was generated using voice recognition software. It may contain grammatical, syntax or spelling errors. Electronically signed by: Jarvis eLwis M.D. 06/12/2019 3:00 PM ECG Data Attestation: I personally reviewed and interpreted this ECG as follows: Indication: altered mental status Rate (beats per minute): 117 Rhythm: sinus tachycardia Findings: + other (QRS normal.), + nonspecific-ST abn and + RBBB (incomplete); no PVC, no ST depression and no ST elevation Blood Pressure Blood Pressure Findings: Elevated blood pressure Blood Pressure Disposition: further management by hospitalist Discharge Plan Visit Data *Final* Discharge Date/Time: 06/12/19 19:14 Chief Complaint: Altered Mental Status ED Provider: Tuan Koch Discharge Problem: Sepsis, Pneumonia Patient Disposition: Admitted As Inpatient Discharge Instructions Interventions: ED Discharge Assessment Last Done: 06/12/19 19:14 Discharge Problem: Sepsis Qualifiers: Sepsis type: sepsis due to unspecified organism Sepsis acute organ dysfunction status: unspecified Qualified Code(s): A41.9 - Sepsis, unspecified organism Pneumonia Qualifiers: Pneumonia type: due to unspecified organism Laterality: left Lung location: lower lobe of lung Qualified Code(s): J18.1 - Lobar pneumonia, unspecified organism The scribe's documentation has been prepared under my direction and personally reviewed by me in its entirety. I confirm that the note above accurately reflects all work, treatment, procedures, and medical decision making performed by me.
[2019-06-13] MEDS: SODIUM CHLORIDE 0.9% 1000ML 1,000 ML IV SCH (04:28)
[2019-06-13 05:00] LABS: Albumin Level 2.3 gm/dl (3.4-5.0); BUN Creatinine Ratio 17.8 (10-20); Est GFR (African American) 85.6; Est GFR (Non-African American) 73.8; Magnesium 1.8 mg/dl (1.8-2.4); Potassium 4.1 mmol/L (3.5-5.1)
[2019-06-13 05:04] LABS: Albumin Globulin Ratio 0.8 (0.9-2); Bilirubin,Total 0.8 mg/dl (0.2-1); Globulin 2.8 gm/dl (2.5-4.0); Phosphorus 3.6 mg/dl (2.5-4.9); Total Protein 5.1 gm/dl (6.4-8.2); Troponin I 0.024 ng/ml (0-0.045)
[2019-06-13 05:48] LABS: Hematocrit (blood only) 26.1 % (37-47); Mean Corpuscular Hemoglobin 32.3 pg (25-34); Mean Corpuscular Hgb Conc 30.7 g/dL (32-36); Mean Corpuscular Volume 105.2 fL (80-100); Mean Platelet Volume 12.4 fL (7.4-10.4); Platelet Count 388 K/uL (130-400); Red Blood Count 2.48 M/uL (4.2-5.4)
[2019-06-13 05:50] LABS: Anisocytosis Present; Basophils # (auto) 0.09 K/uL (0-0.2); Basophils % (auto) 0.6 %; Eosinophils # (auto) 0.14 K/uL (0-0.5); Eosinophils % (auto) 0.9 %; Giant Platelets 1+; Immature Granulocytes # (auto) 0.07 K/uL (0.00-0.02); Immature Granulocytes % (auto) 0.5 %; Lymphocytes # (auto) 1.06 K/uL (1.2-3.4); Monocytes # (auto) 1.26 K/uL (0.11-0.59); Monocytes % (auto) 8.3 %; Neutrophils # (auto) 12.48 K/uL (1.4-6.5); Neutrophils % (auto) 82.7 %; Ovalocytes 1+; Tear Drop Cells 1+; Toxic Granulation 1+; Toxic Vacuolation 1+
[2019-06-13] MEDS: PIPERACILLIN/TAZOBACTAM 3.375 GM in DEXTROSE 5% 100 ML IV SCH (06:14)
--- NOTE | 2019-06-13 06:59 | XRay Report ---
XR chest 1V portable CLINICAL HISTORY: Sepsis. Abnormal chest x-ray. Follow-up examination. COMPARISON STUDY: 06/12/2019 FINDINGS: The cardiac and mediastinal contours remain stable. Increased density in the right hemithor ax is felt to be secondary to overlying breast implant. There are surgical clips in the right axillar y region. There are calcified left hilar lymph nodes. There is improving aeration of the left lower l obe. There is a small left pleural effusion.[There is an old left proximal humeral impaction fracture IMPRESSION: 1. Resolving left lower lung zone airspace opacities 2. Small left pleural effusion Electronically signed by: Sher Lira M.D. 06/13/2019 6:58 AM
[2019-06-13] MEDS: ALBUT/IPRATROP 3MG/0.5MG NEB 3 ML VIAL NEB SCH ×4 (07:01→19:20)
--- NOTE | 2019-06-13 07:58 | Critical Care Progress Note ---
Date of Service June 13, 2019 Assessment & Plan (1) Admitted to intensive care unit: Reason Critically Ill: 78-year-old female presenting with sepsis from pulmonary source as well as acute metabolic encephalopathy requiring close hemodynamic monitoring status post aggressive IV fluid resuscitation in the setting of profound hypotension. NEURO - CAM ICU: POSITIVE AMS- improved Likely 2/2 encephalopathy in the setting of sepsis. CT head w/o significant findings. CARDIAC/VASCULAR - Hypotension- improved In the setting of sepsis and hypovolemia. DC'd IVF Has not needed pressors Elevated troponin: w/o significant EKG findings to suggest ischemia --> presumed demand ischemia. EKG: Sinus Tach@117bpm. No ST/T-wave changes. QTc 457ms. Monitor on telemetry. RESPIRATORY - LEFT Lower Lobe Pneumonia: Titrated down to 1L NC Continue home nebs. DC'd Vanc/Zosyn. Start PO Augmentin/Doxy IV Solumedrol 25mg q12h GI/NUTRITION - Advanced diet today Prophylaxis: continue home Protonix RENAL/LYTES - CKD III- stable No significant electrolyte derangements currently. DC'd IVF as above - Sanchez in place - Strict I&Os. ENDO - No h/o DM or Thyroid Dz BSGs per unit protocol. ISS --> gtt per unit policy. HEME - Myelodysplastic syndrome and thrombocytosis: Would continue w/ home treatments as scheduled. ID - Sepsis from pulmonary source: Antibiotics as above- Augmentin/Doxy Will add Azithro for atypical CAP coverage. PCT wnl. Blood/Sputum cultures pending LINES/IV ACCESS - PIVs x3, Endurance cath to Daniel LO DVT PROPHYLAXIS - Lovenox, SCDs Conditional Code- see chart DISPO: Stable for downgrade out of ICU. PT/OT pending Supervising Physician Co-Signing Physician Notes Dr. Chavez was resident physician during care of patient. I separately evaluated patient for bautista portions of the history and the exam. I was present during the critical portion of medical decision making, and I discussed the case with the resident. I generally agree with the findings and plan. Patient was discussed in multidisciplinary rounds. Patient significantly improved from overnight decreasing oxygen requirement on 2 L oxygen did not require vasoactive medication volume resuscitation was adequate. While the patient is at the heart size but does carry increased risk for multidrug- resistant organisms I would largely consider this patient to have community- acquired pneumonia, based off the hospital antibiogram we have not seen many healthcare related multidrug-resistant pneumonias, a sputum specimen would be of minimal yield at this point because she has had broad-spectrum antibiotics administered for greater than 6 hours. Given the improvement I feel we could change to Augmentin orally as well as doxycycline with a 200 mg load for atypical coverage. We will also start steroids for severe community-acquired pneumonia. Case management was able to obtain records regarding weightbearing status, she was considered full weightbearing status at the [facility], physical and Occupational Therapy consults have been placed., The patient's metabolic encephalopathy is largely resolved. Patient stable for downgrade out of the ICU. Subjective 78 yo found in bed this AM in NAD. No reported overnight events. Tolerating pain well. Tolerating PO intake. Remains afebrile. No other acute concerns or complaints. Review of Systems Review of Systems: All systems reviewed & are unremarkable except as noted in HPI & below Physical Exam Constitutional: WD/WN, vitals as above Eyes: PERRL, conjunctivae normal, anicteric sclerae ENMT: external ear and nose normal, oropharynx normal Respiratory: normal respiratory effort coarse Cardiovascular: RRR, no murmur, no edema Gastrointestinal (Abdomen): normal bowel sounds, soft, nontender, no hepatosplenomegaly Skin: no rashes, warm and dry Psychiatric: A+Ox3, euthymic affect Results & Data Vital Signs (Past 12 Hours) Vital Signs Temp Pulse Pulse Resp BP Pulse Ox 06/13/19 07:02 95 H 18 96 06/13/19 04:01 37.2 C 106 H 13 111/79 93 06/13/19 03:01 95 H 12 108/59 L 98 06/13/19 02:31 94 H 16 102/60 99 06/13/19 02:02 94 H 18 112/80 98 06/13/19 01:31 93 H 12 102/61 97 06/13/19 01:01 93 H 12 98/58 L 98 06/13/19 00:31 94 H 11 L 102/61 97 06/13/19 00:01 37.5 C 97 H 14 105/55 L 98 06/13/19 00:00 91 H 06/12/19 23:46 95 H 13 92/57 L 99 06/12/19 23:31 94 H 12 100/58 L 98 06/12/19 23:16 93 H 16 104/55 L 95 06/12/19 23:01 92 H 12 107/56 L 96 06/12/19 22:53 92 H 16 89/56 L 97 06/12/19 21:31 96 H 14 99/55 L 96 06/12/19 21:16 96 H 18 93/53 L 96 06/12/19 20:31 98 H 20 85/51 L 97 06/12/19 20:23 97 H 14 98 06/12/19 20:04 97 H 16 86/46 L 98 Laboratory Results Laboratory Results - last 24 hr 06/12/19 06/12/19 06/12/19 14:17 16:02 16:02 WBC 31.23 H* RBC 3.46 L Hgb 11.9 L Hct 37.3 MCV 107.8 H MCH 34.4 H MCHC 31.9 L RDW Std Deviation 118.0 H RDW Coeff of Radha 29.9 H Plt Count 680 H MPV 13.4 H Immature Gran % (Auto) 0.6 Neut % (Auto) 90.7 Lymph % (Auto) 3.7 [place] % (Auto) 4.8 Eos % (Auto) 0.0 Baso % (Auto) 0.2 Immature Gran # (Auto) 0.19 H Neut # (Auto) 28.30 H Lymph # (Auto) 1.17 L [place] # (Auto) 1.49 H Eos # (Auto) 0.01 Baso # (Auto) 0.07 Toxic Granulation Toxic Vacuolation Giant Platelets 1+ Polychromasia 1+ Poikilocytosis Present Anisocytosis Present Macrocytosis Present Tear Drop Cells Occasional Ovalocytes 1+ PT 11.0 INR 1.1 APTT 31.2 H PTT Ratio 1.2 VBG pH VBG pCO2 VBG pO2 VBG HCO3 VBG O2 Saturation VBG Base Excess Barometric Pressure Sodium Potassium Chloride Carbon Dioxide Anion Gap BUN Creatinine Est Cr Clr Drug Dosing Est GFR ( Amer) Est GFR (Non-Af Amer) BUN/Creatinine Ratio Glucose POC Glucose 112 H Lactate Calcium Phosphorus Magnesium Total Bilirubin AST ALT Alkaline Phosphatase Ammonia Troponin I Total Protein Albumin Globulin Albumin/Globulin Ratio Procalcitonin Urine Color Urine Appearance Urine pH Ur Specific [place] Urine Protein Urine Glucose (UA) Urine Ketones Urine Blood Urine Nitrite Urine Bilirubin Urine Urobilinogen Ur Leukocyte Esterase Nasal Screen MRSA (PCR) Influenza Type A Ag Influenza Type B Ag Blood Type Antibody Screen 06/12/19 06/12/19 06/12/19 16:02 16:02 16:02 WBC RBC Hgb Hct MCV MCH MCHC RDW Std Deviation RDW Coeff of Radha Plt Count MPV Immature Gran % (Auto) Neut % (Auto) Lymph % (Auto) [place] % (Auto) Eos % (Auto) Baso % (Auto) Immature Gran # (Auto) Neut # (Auto) Lymph # (Auto) [place] # (Auto) Eos # (Auto) Baso # (Auto) Toxic Granulation Toxic Vacuolation Giant Platelets Polychromasia Poikilocytosis Anisocytosis Macrocytosis Tear Drop Cells Ovalocytes PT INR APTT PTT Ratio VBG pH VBG pCO2 VBG pO2 VBG HCO3 VBG O2 Saturation VBG Base Excess Barometric Pressure Sodium 140 Potassium 4.8 Chloride 109 H Carbon Dioxide 24 Anion Gap 7.0 BUN 15 Creatinine 0.95 Est Cr Clr Drug Dosing 40.3 Est GFR ( Amer) 67.4 Est GFR (Non-Af Amer) 58.2 BUN/Creatinine Ratio 15.8 Glucose 102 H POC Glucose Lactate Calcium 8.8 Phosphorus Magnesium 2.1 Total Bilirubin 0.9 AST 61 H ALT 24 Alkaline Phosphatase 128 H Ammonia 11.8 Troponin I 0.050 H* Total Protein 7.4 Albumin 3.7 Globulin 3.7 Albumin/Globulin Ratio 1.0 Procalcitonin 0.24 Urine Color Urine Appearance Urine pH Ur Specific [place] Urine Protein Urine Glucose (UA) Urine Ketones Urine Blood Urine Nitrite Urine Bilirubin Urine Urobilinogen Ur Leukocyte Esterase Nasal Screen MRSA (PCR) Influenza Type A Ag Influenza Type B Ag Blood Type Antibody Screen 06/12/19 06/12/19 06/12/19 16:02 16:11 16:42 WBC RBC Hgb Hct MCV MCH MCHC RDW Std Deviation RDW Coeff of Radha Plt Count MPV Immature Gran % (Auto) Neut % (Auto) Lymph % (Auto) [place] % (Auto) Eos % (Auto) Baso % (Auto) Immature Gran # (Auto) Neut # (Auto) Lymph # (Auto) [place] # (Auto) Eos # (Auto) Baso # (Auto) Toxic Granulation Toxic Vacuolation Giant Platelets Polychromasia Poikilocytosis Anisocytosis Macrocytosis Tear Drop Cells Ovalocytes PT INR APTT PTT Ratio VBG pH 7.30 L VBG pCO2 54 H VBG pO2 23 VBG HCO3 26 VBG O2 Saturation < 60.0 VBG Base Excess -1.5 Barometric Pressure 737.0 Sodium Potassium Chloride Carbon Dioxide Anion Gap BUN Creatinine Est Cr Clr Drug Dosing Est GFR ( Amer) Est GFR (Non-Af Amer) BUN/Creatinine Ratio Glucose POC Glucose Lactate Calcium Phosphorus Magnesium Total Bilirubin AST ALT Alkaline Phosphatase Ammonia Troponin I Total Protein Albumin Globulin Albumin/Globulin Ratio Procalcitonin Urine Color Dark Yellow Urine Appearance Clear Urine pH 5.5 Ur Specific [place] 1.018 Urine Protein Negative Urine Glucose (UA) Negative Urine Ketones Negative Urine Blood Negative Urine Nitrite Negative Urine Bilirubin Negative Urine Urobilinogen Negative Ur Leukocyte Esterase Negative Nasal Screen MRSA (PCR) Influenza Type A Ag Influenza Type B Ag Blood Type A Positive Antibody Screen NEGATIVE 06/12/19 06/12/19 06/12/19 17:11 19:35 20:03 WBC RBC Hgb Hct MCV MCH MCHC RDW Std Deviation RDW Coeff of Radha Plt Count MPV Immature Gran % (Auto) Neut % (Auto) Lymph % (Auto) [place] % (Auto) Eos % (Auto) Baso % (Auto) Immature Gran # (Auto) Neut # (Auto) Lymph # (Auto) [place] # (Auto) Eos # (Auto) Baso # (Auto) Toxic Granulation Toxic Vacuolation Giant Platelets Polychromasia Poikilocytosis Anisocytosis Macrocytosis Tear Drop Cells Ovalocytes PT INR APTT PTT Ratio VBG pH VBG pCO2 VBG pO2 VBG HCO3 VBG O2 Saturation VBG Base Excess Barometric Pressure Sodium Potassium Chloride Carbon Dioxide Anion Gap BUN Creatinine Est Cr Clr Drug Dosing Est GFR ( Amer) Est GFR (Non-Af Amer) BUN/Creatinine Ratio Glucose POC Glucose Lactate 0.4 Calcium Phosphorus Magnesium Total Bilirubin AST ALT Alkaline Phosphatase Ammonia Troponin I Total Protein Albumin Globulin Albumin/Globulin Ratio Procalcitonin Urine Color Urine Appearance Urine pH Ur Specific [place] Urine Protein Urine Glucose (UA) Urine Ketones Urine Blood Urine Nitrite Urine Bilirubin Urine Urobilinogen Ur Leukocyte Esterase Nasal Screen MRSA (PCR) Negative Influenza Type A Ag Neg for Influ A Influenza Type B Ag Neg for Influ B Blood Type Antibody Screen 06/12/19 06/12/19 06/13/19 20:03 20:03 00:06 WBC RBC Hgb Hct MCV MCH MCHC RDW Std Deviation RDW Coeff of Radha Plt Count MPV Immature Gran % (Auto) Neut % (Auto) Lymph % (Auto) [place] % (Auto) Eos % (Auto) Baso % (Auto) Immature Gran # (Auto) Neut # (Auto) Lymph # (Auto) [place] # (Auto) Eos # (Auto) Baso # (Auto) Toxic Granulation Toxic Vacuolation Giant Platelets Polychromasia Poikilocytosis Anisocytosis Macrocytosis Tear Drop Cells Ovalocytes PT INR APTT PTT Ratio VBG pH 7.38 VBG pCO2 38 VBG pO2 88 VBG HCO3 22 VBG O2 Saturation 96.1 VBG Base Excess -2.9 Barometric Pressure 738.3 Sodium Potassium Chloride Carbon Dioxide Anion Gap BUN Creatinine Est Cr Clr Drug Dosing Est GFR ( Amer) Est GFR (Non-Af Amer) BUN/Creatinine Ratio Glucose POC Glucose 102 H Lactate Calcium Phosphorus Magnesium Total Bilirubin AST ALT Alkaline Phosphatase Ammonia Troponin I 0.065 H* Total Protein Albumin Globulin Albumin/Globulin Ratio Procalcitonin Urine Color Urine Appearance Urine pH Ur Specific [place] Urine Protein Urine Glucose (UA) Urine Ketones Urine Blood Urine Nitrite Urine Bilirubin Urine Urobilinogen Ur Leukocyte Esterase Nasal Screen MRSA (PCR) Influenza Type A Ag Influenza Type B Ag Blood Type Antibody Screen 06/13/19 06/13/19 06/13/19 04:20 04:20 04:20 WBC 15.10 H D RBC 2.48 L Hgb 8.0 L D Hct 26.1 L MCV 105.2 H MCH 32.3 MCHC 30.7 L RDW Std Deviation RDW Coeff of Radha Plt Count 388 MPV 12.4 H Immature Gran % (Auto) 0.5 Neut % (Auto) 82.7 Lymph % (Auto) 7.0 [place] % (Auto) 8.3 Eos % (Auto) 0.9 Baso % (Auto) 0.6 Immature Gran # (Auto) 0.07 H Neut # (Auto) 12.48 H Lymph # (Auto) 1.06 L [place] # (Auto) 1.26 H Eos # (Auto) 0.14 Baso # (Auto) 0.09 Toxic Granulation 1+ Toxic Vacuolation 1+ Giant Platelets 1+ Polychromasia Poikilocytosis Anisocytosis Present Macrocytosis Tear Drop Cells 1+ Ovalocytes 1+ PT INR APTT PTT Ratio VBG pH VBG pCO2 VBG pO2 VBG HCO3 VBG O2 Saturation VBG Base Excess Barometric Pressure Sodium 143 Potassium 4.1 Chloride 114 H Carbon Dioxide 23 Anion Gap 6.0 BUN 14 Creatinine 0.78 Est Cr Clr Drug Dosing 53.0 Est GFR ( Amer) 85.6 Est GFR (Non-Af Amer) 73.8 BUN/Creatinine Ratio 17.8 Glucose 86 POC Glucose Lactate Calcium 7.0 L D Phosphorus 3.6 Magnesium 1.8 Total Bilirubin 0.8 AST 37 ALT 17 Alkaline Phosphatase 85 Ammonia Troponin I 0.024 Total Protein 5.1 L D Albumin 2.3 L Globulin 2.8 Albumin/Globulin Ratio 0.8 L Procalcitonin 0.46 Urine Color Urine Appearance Urine pH Ur Specific [place] Urine Protein Urine Glucose (UA) Urine Ketones Urine Blood Urine Nitrite Urine Bilirubin Urine Urobilinogen Ur Leukocyte Esterase Nasal Screen MRSA (PCR) Influenza Type A Ag Influenza Type B Ag Blood Type Antibody Screen Medications Administered Current Inpatient Medications Acetaminophen (Tylenol) 650 mg PO Q4H PRN PRN Reason: Pain or Fever Stop: 07/12/19 19:31 Al Hydrox/Mg Hydrox/Simethicone (Maalox) 15 ml PO Q4H PRN PRN Reason: Dyspepsia Stop: 07/12/19 19:31 Albuterol (Duoneb) 3 ml NEB QIDR [facility] Stop: 07/12/19 19:31 Last Admin: 06/13/19 11:29 Dose: 3 ml Documented by: Amitriptyline HCl (Elavil) 100 mg PO HS [facility] [place] Stop: 07/12/19 20:59 Last Admin: 06/12/19 21:30 Dose: 100 mg Documented by: Amoxicillin/Clavulanate Potassium (Augmentin 875mg) 1 tab PO BIDM [facility] [place] Stop: 06/20/19 16:59 Doxycycline Hyclate (Vibramycin) 100 mg PO BID [facility] [place] Stop: 06/20/19 20:59 Enoxaparin Sodium (Lovenox) 40 mg SQ Q24H [facility] [place] Stop: 07/13/19 20:59 Hydroxyurea (Hydrea) 500 mg PO DAILY [facility] [place] Stop: 07/13/19 08:59 Last Admin: 06/13/19 08:02 Dose: 500 mg Documented by: Methylprednisolone 25 mg/ (Syringe) 0.4 mls @ 1.5 mls/min IV Q12H [facility] [place] Stop: 07/13/19 10:59 Last Admin: 06/13/19 10:49 Dose: 1.5 mls/min Documented by: Magnesium Sulfate/Dextrose (Magnesium Sulfate / D5w) 1 gm in 100 mls @ 50 mls/hr IV Q2H [facility] [place] Stop: 06/13/19 14:59 Last Admin: 06/13/19 10:50 Dose: 50 mls/hr Documented by: Magnesium Hydroxide (Milk Of Magnesia) 30 ml PO Q12H PRN PRN Reason: Constipation Stop: 07/12/19 19:31 Miscellaneous (Order Awaiting Action) 1 ea N/A QS [facility] [place] Stop: 07/13/19 00:00 Last Admin: 06/13/19 08:03 Dose: Not Given Documented by: Miscellaneous (Order Awaiting Action) 1 ea N/A QS [facility] [place] Stop: 07/13/19 00:00 Last Admin: 06/13/19 08:03 Dose: Not Given Documented by: Miscellaneous Information (Consult) 1 ea N/A UD PRN PRN Reason: Consult Stop: 07/12/19 19:31 Ondansetron HCl (Zofran) 4 mg IV Q6H PRN PRN Reason: Nausea Stop: 07/12/19 19:31 Oxycodone HCl (Roxicodone Immediate Rel) 5 mg PO Q6H PRN PRN Reason: Moderate Pain (4,5,6) Stop: 06/27/19 10:22 Oxycodone HCl (Roxicodone Immediate Rel) 10 mg PO Q6H PRN PRN Reason: Severe Pain (7,8,9,10) Stop: 06/27/19 10:23 Pantoprazole Sodium (Protonix) 40 mg PO BID [facility] [place] Stop: 07/12/19 20:59 Last Admin: 06/13/19 08:02 Dose: 40 mg Documented by: Polyethylene Glycol (Miralax Powder Packet) 17 gm PO DAILY PRN PRN Reason: Constipation Stop: 07/12/19 19:31 Pregabalin (Lyrica) 75 mg PO BID [facility] [place] Stop: 07/13/19 10:29 Last Admin: 06/13/19 10:50 Dose: 75 mg Documented by: PG Care Time/CCT Total # of Minutes Spent Total Time Spent with Patient: Total time spent is greater than 50% in coordinat ion of care (as documented) at patient's floor/unit and/or counseling patient: Resident Activity Tracking Resident Involvement: Resident Care Provided Care Provided: Adult Hospital Medicine
[2019-06-13] MEDS: HYDROXYUREA 500 MG CAP PO SCH (08:02)
[2019-06-13] MEDS: PANTOprazole 40 MG TAB PO SCH ×2 (08:02→21:13)
[2019-06-13] MEDS ORDERED: NON-FORMULARY MEDICATION (Fluticasone Furoate-Vilanterol [Breo Ellipta] 1 PUFFS) INH SCH (09:00)
[2019-06-13] MEDS ORDERED: ANAGRELIDE 1 MG PO SCH (09:00)
[2019-06-13] MEDS: methylPREDNISolone 25 MG in SYRINGE 0 ML IV SCH ×2 (10:49→23:22)
[2019-06-13] MEDS: MAGNESIUM SULFATE / D5W 1 GM/100 ML BAG IV SCH ×2 (10:50→12:34)
[2019-06-13] MEDS: PREGABALIN 75 MG CAP PO SCH ×2 (10:50→21:16)
[2019-06-13] MEDS ORDERED: DOXYCYCLINE HYCLATE 100 MG CAP PO ONE (11:00)
--- NOTE | 2019-06-13 13:43 | Hospitalist Progress Note ---
Date of Service June 13, 2019 Assessment & Plan (1) Acute respiratory failure with hypoxia and hypercapnia: (2) Sepsis with metabolic encephalopathy: (3) Pneumonia: Patient is a 78 yr female with H/O COPD, tobacco abuse, MDS, essential thrombocytopenia, anemia, GERD, PUD, depression, anxiety, Right breast cancer s/p mastectomy who presents from [facility] with altered mental status and hypoxia. Healthcare Associated Pneumonia Sepsis Hypoxia Metabolic Encephalopathy secondary to above --CXR:Airspace opacities of the left lung base suggest pneumonia. Follow-up imaging to document resolution recommended. Small left parapneumonic effusion. Unchanged increased density of the right hemithorax secondary to unilateral breast implant. CT Head:No significant change compared to the prior study. No acute intracranial abnormality. Normal lactate, Procalcitonin levels Influenza screen is negative Blood,Urine, Sputum Cx pending IV Vanco, Zosyn transitioned to PO Augmentin, Doxycycline Wean off of supplemental Oxygen as able Taper down steroids as able Continue nebs Appreciate [employer] Help Received IV fluids (4) Elevated troponin: Troponin trended down Likely due to Demand ischemia given sepsis Denies chest pain (5) COPD (chronic obstructive pulmonary disease): Former Tobacco use no signs of acute exacerbation Continue with pulmonary hygiene Continue home inhalers (6) Pelvic fracture: s/p fall at OSH Patient has been at [facility] x 2 weeks for sub acute rehab Per [facility] WBAT PT/OT (7) CKD (chronic kidney disease), stage III: Cr at baseline Monitor renal function (8) MDS/MPN (myelodysplastic/myeloproliferative neoplasms): Monitor CBC (9) Essential thrombocythemia: Monitor platelets Continue hydroxyurea and anagrelide (10) Insomnia: On temazepam, trazodone, amitriptyline at bedtime Hold temazepam, trazodone for now Monitor (11) History of breast cancer: S/P R masectomy with breast implant (12) DVT prophylaxis: Lovenox SQ Code Status Conditional Code Disposition: PT/OT prior to discharge Follow-up: PCP Dr. Chavez upon discharge Subjective Patient is seen and examined at bedside Reports cough with expectoration Mental status seems to be back to baseline Also complains of pelvic pain Denies any chest pain, shortness of breath, dizziness, nausea, abdominal pain Offers no other complaints Saturating well with minimal supplemental oxygen Review of Systems Review of Systems: All systems reviewed & are unremarkable except as noted in HPI & below Physical Exam Physical Exam: Physical Exam: Vitals signs as noted above General Appearance:Moderately built and nourished, no apparent distress Head: normocephalic, Atraumatic Eyes: normal inspection, EOMI Neck: supple, Trachea midline Respiratory/Chest: Coarse breath sounds, CTA, +R breast Implant Cardiovascular: S1, S2, No murmur Abdomen/GI:Soft, Non tender, Bowel sounds present Extremities/Musculoskelatal:normal inspection, no edema Neurologic/Psych:AAOX3, grossly no focal neurological deficits Skin: normal color, warm Results & Data Vital Signs (Past 12 Hours) Vital Signs Temp Pulse Pulse Resp BP Pulse Ox 06/13/19 11:29 89 14 94 06/13/19 11:00 86 16 110/57 L 94 06/13/19 10:00 95 H 15 100 06/13/19 09:00 97 H 17 89 L 06/13/19 08:00 37.2 C 97 H 14 123/70 94 06/13/19 07:02 95 H 18 96 06/13/19 07:00 95 H 16 110/59 L 94 06/13/19 04:01 37.2 C 106 H 13 111/79 93 06/13/19 03:01 95 H 12 108/59 L 98 06/13/19 02:31 94 H 16 102/60 99 06/13/19 02:02 94 H 18 112/80 98 Laboratory Results Short CBC 06/12/19 06/13/19 Range/Units 16:02 04:20 WBC 31.23 H* 15.10 H D (4.8-10.8) K/uL Hgb 11.9 L 8.0 L D (12.0-16.0) g/dL Hct 37.3 26.1 L (37-47) % Plt Count 680 H 388 (130-400) K/uL BMP 06/12/19 06/13/19 16:02 04:20 Sodium 140 143 Potassium 4.8 4.1 Chloride 109 H 114 H Carbon Dioxide 24 23 BUN 15 14 Creatinine 0.95 0.78 Glucose 102 H 86 Calcium 8.8 7.0 L D Cardiac Enzymes 06/12/19 06/12/19 06/13/19 Range/Units 16:02 20:03 04:20 Troponin I 0.050 H* 0.065 H* 0.024 (0-0.045) ng/ml Liver Function 06/12/19 06/13/19 Range/Units 16:02 04:20 Total Bilirubin 0.9 0.8 (0.2-1) mg/dl AST 61 H 37 (15-37) U/L ALT 24 17 (12-78) U/L Alkaline Phosphatase 128 H 85 (45-117) U/L Albumin 3.7 2.3 L (3.4-5.0) gm/dl Urine 06/12/19 Range/Units 16:42 Urine Color Dark Yellow Urine Appearance Clear (Clear) Urine pH 5.5 (4.5-7.5) Ur Specific [place] 1.018 (1.000-1.030) Urine Protein Negative (Negative) Urine Glucose (UA) Negative (Negative) (1) Pneumonia Laterality: left Lung location: lower lobe of lung Pneumonia type: due to unspecified organism Qualified Code(s): J18.1 - Lobar pneumonia, unspecified organism (2) COPD (chronic obstructive pulmonary disease) COPD type: unspecified COPD Qualified Code(s): J44.9 - Chronic obstructive pulmonary disease, unspecified
[2019-06-13] MEDS ORDERED: VANCOMYCIN HCL 750 MG in SODIUM CHLORIDE 0.9% 250 ML IV SCH (14:00)
[2019-06-13] MEDS: NORMOSOL-R 1,000 ML IV SCH (15:50)
[2019-06-13] MEDS: INSULIN ASPART 100 UNITS/ML 3 ML PEN SC SCH ×2 (17:59→21:13)
[2019-06-13] MEDS: AMOXICILLIN/CLAVULANATE 875 MG TAB PO SCH (18:01)
[2019-06-13] MEDS: ENOXAPARIN INJ 40 MG/0.4 ML SYR SQ SCH (21:12)
[2019-06-13] MEDS: AMITRIPTYLINE HCL 100 MG TAB PO SCH (21:12)
[2019-06-13] MEDS: DOXYCYCLINE HYCLATE 100 MG CAP PO SCH (21:13)
[2019-06-13] MEDS: OXYCODONE HCL IR 5 MG TAB (IMMEDIATE RELEASE) PO PRN (21:16)
[2019-06-13] MEDS ORDERED: LORazepam 0.5 MG TAB PO STA (23:38)
[2019-06-14] MEDS: NORMOSOL-R 1,000 ML IV SCH ×2 (04:20→17:20)
[2019-06-14 06:02] LABS: Hematocrit (blood only) 25.9 % (37-47); Hemoglobin 7.8 g/dL (12.0-16.0); Mean Corpuscular Hemoglobin 31.3 pg (25-34); Mean Corpuscular Hgb Conc 30.1 g/dL (32-36); Nucleated RBC # (auto) 0.02 K/uL (0-0); Nucleated RBC % (auto) 0.3 %; Platelet Count 428 K/uL (130-400); Red Blood Count 2.49 M/uL (4.2-5.4); White Blood Count 8.67 K/uL (4.8-10.8)
[2019-06-14 06:35] LABS: BUN Creatinine Ratio 17.1 (10-20); Calcium 7.7 mg/dl (8.5-10.1); Creatinine Clr Calc Pharmacy 49.8 ml/min; Est GFR (African American) 79.4; Est GFR (Non-African American) 68.5; Magnesium 2.7 mg/dl (1.8-2.4); Potassium 4.4 mmol/L (3.5-5.1)
[2019-06-14] MEDS: ALBUT/IPRATROP 3MG/0.5MG NEB 3 ML VIAL NEB SCH ×4 (07:05→19:56)
[2019-06-14] MEDS: HYDROXYUREA 500 MG CAP PO SCH (08:50)
[2019-06-14] MEDS: AMOXICILLIN/CLAVULANATE 875 MG TAB PO SCH ×2 (08:51→18:09)
[2019-06-14] MEDS: PANTOprazole 40 MG TAB PO SCH ×2 (08:51→20:38)
[2019-06-14] MEDS: DOXYCYCLINE HYCLATE 100 MG CAP PO SCH ×2 (08:51→20:38)
[2019-06-14] MEDS: INSULIN ASPART 100 UNITS/ML 3 ML PEN SC SCH ×4 (08:53→20:39)
[2019-06-14] MEDS: PREGABALIN 75 MG CAP PO SCH ×2 (08:59→20:49)
[2019-06-14] MEDS: ONDANSETRON INJ 2 MG/ML 2 ML VIAL IV PRN (09:35)
[2019-06-14] MEDS: methylPREDNISolone 25 MG in SYRINGE 0 ML IV SCH ×2 (11:36→23:50)
[2019-06-14] MEDS: OXYCODONE HCL IR 5 MG TAB (IMMEDIATE RELEASE) PO PRN ×3 (11:41→22:00)
[2019-06-14] MEDS ORDERED: VANCOMYCIN TROUGH ONE (13:30)
--- NOTE | 2019-06-14 18:44 | Hospitalist Progress Note ---
Date of Service June 14, 2019 Assessment & Plan (1) Acute respiratory failure with hypoxia and hypercapnia: (2) Sepsis with metabolic encephalopathy: (3) Pneumonia: Patient is a 78 yr female with H/O COPD, tobacco abuse, MDS, essential thrombocytopenia, anemia, GERD, PUD, depression, anxiety, Right breast cancer s/p mastectomy who presents from [facility] with altered mental status and hypoxia. Healthcare Associated Pneumonia Sepsis Hypoxia Metabolic Encephalopathy secondary to above --CXR:Airspace opacities of the left lung base suggest pneumonia. Follow-up imaging to document resolution recommended. Small left parapneumonic effusion. Unchanged increased density of the right hemithorax secondary to unilateral breast implant. CT Head:No significant change compared to the prior study. No acute intracranial abnormality. Normal lactate, Procalcitonin levels Influenza screen is negative Blood Cx: No growth to date Urine Cx: Negative Sputum Cx: Staphylococcal species IV Vanco, Zosyn transitioned to PO Augmentin, Doxycycline Wean off of supplemental Oxygen as able Taper down steroids as able Continue nebs Appreciate Component Technician Help Decrease IV fluids (4) Elevated troponin: Troponin trended down Likely due to Demand ischemia given sepsis Denies chest pain (5) COPD (chronic obstructive pulmonary disease): Former Tobacco use no signs of acute exacerbation Continue with pulmonary hygiene Continue home inhalers (6) Pelvic fracture: s/p fall at OSH Patient has been at [facility] x 2 weeks for sub acute rehab Per [facility] WBAT PT/OT (7) CKD (chronic kidney disease), stage III: Cr at baseline Monitor renal function (8) MDS/MPN (myelodysplastic/myeloproliferative neoplasms): Monitor CBC (9) Essential thrombocythemia: Monitor platelets Continue hydroxyurea and anagrelide (10) Insomnia: On temazepam, trazodone, amitriptyline at bedtime Hold temazepam, trazodone for now Monitor (11) History of breast cancer: S/P R masectomy with breast implant (12) DVT prophylaxis: Lovenox SQ Code Status Conditional Code Disposition: PT/OT prior to discharge Follow-up: PCP Dr. Chavez upon discharge Subjective Patient is seen and examined at bedside No significant improvement from yesterday Reports generalized weakness and nausea but denies any vomiting Has pelvic pain from prior fracture Less SOB, cough today Family at bedside Denies any chest pain, dizziness, abdominal pain Review of Systems Review of Systems: All systems reviewed & are unremarkable except as noted in HPI & below Physical Exam Physical Exam: Physical Exam: Vitals signs as noted above General Appearance:Moderately built and nourished, no apparent distress Head: normocephalic, Atraumatic Eyes: normal inspection, EOMI Neck: supple, Trachea midline Respiratory/Chest: Coarse breath sounds, CTA, +R breast Implant Cardiovascular: S1, S2, No murmur Abdomen/GI:Soft, Non tender, Bowel sounds present Extremities/Musculoskelatal:normal inspection, no edema Neurologic/Psych:AAOX3, grossly no focal neurological deficits Skin: normal color, warm Results & Data Vital Signs (Past 12 Hours) Vital Signs Temp Pulse Pulse Resp BP Pulse Ox Pulse Ox 06/14/19 16:52 98 H 06/14/19 15:38 92 06/14/19 15:18 36.6 C 86 16 108/71 92 06/14/19 15:12 87 L 06/14/19 11:13 36.7 C 86 18 97/59 L 93 06/14/19 09:06 91 06/14/19 07:23 36.9 C 84 17 109/64 88 L 06/14/19 07:14 83 18 90 Pulse Ox Pulse Ox 06/14/19 16:52 06/14/19 15:38 06/14/19 15:18 06/14/19 15:12 93 91 06/14/19 11:13 06/14/19 09:06 06/14/19 07:23 06/14/19 07:14 Laboratory Results Short CBC 06/14/19 Range/Units 05:41 WBC 8.67 (4.8-10.8) K/uL Hgb 7.8 L (12.0-16.0) g/dL Hct 25.9 L (37-47) % Plt Count 428 H (130-400) K/uL BMP 06/14/19 05:41 Sodium 142 Potassium 4.4 Chloride 113 H Carbon Dioxide 23 BUN 14 Creatinine 0.83 Glucose 108 H Calcium 7.7 L (1) Pneumonia Laterality: left Lung location: lower lobe of lung Pneumonia type: due to unspecified organism Qualified Code(s): J18.1 - Lobar pneumonia, unspecified organism (2) COPD (chronic obstructive pulmonary disease) COPD type: unspecified COPD Qualified Code(s): J44.9 - Chronic obstructive pulmonary disease, unspecified
[2019-06-14] MEDS ORDERED: LORazepam 0.5 MG TAB PO STA (19:53)
[2019-06-14] MEDS: ENOXAPARIN INJ 40 MG/0.4 ML SYR SQ SCH (20:37)
[2019-06-14] MEDS: AMITRIPTYLINE HCL 100 MG TAB PO SCH (20:37)
[2019-06-14] MEDS: TEMAZEPAM 15 MG CAPSULE PO PRN (20:49)
[2019-06-15] MEDS: ALBUT/IPRATROP 3MG/0.5MG NEB 3 ML VIAL NEB SCH ×2 (07:18→11:42)
[2019-06-15] MEDS: NORMOSOL-R 1,000 ML IV SCH ×2 (07:34→23:28)
[2019-06-15] MEDS: AMOXICILLIN/CLAVULANATE 875 MG TAB PO SCH ×2 (07:35→17:13)
[2019-06-15] MEDS: ANAGRELIDE 1 MG PO SCH (07:35)
[2019-06-15] MEDS: HYDROXYUREA 500 MG CAP PO SCH (07:35)
[2019-06-15] MEDS: PANTOprazole 40 MG TAB PO SCH ×2 (07:35→20:04)
[2019-06-15] MEDS: DOXYCYCLINE HYCLATE 100 MG CAP PO SCH ×2 (07:36→20:04)
[2019-06-15] MEDS: OXYCODONE HCL IR 5 MG TAB (IMMEDIATE RELEASE) PO PRN ×4 (07:40→22:52)
[2019-06-15] MEDS: PREGABALIN 75 MG CAP PO SCH ×2 (07:40→20:04)
[2019-06-15 07:57] LABS: Hematocrit (blood only) 27.8 % (37-47); Hemoglobin 8.3 g/dL (12.0-16.0); Mean Corpuscular Hemoglobin 31.7 pg (25-34); Mean Corpuscular Hgb Conc 29.9 g/dL (32-36); Mean Corpuscular Volume 106.1 fL (80-100); Mean Platelet Volume 13.1 fL (7.4-10.4); Platelet Count 452 K/uL (130-400); Red Blood Count 2.62 M/uL (4.2-5.4); White Blood Count 8.34 K/uL (4.8-10.8)
[2019-06-15 08:11] LABS: BUN Creatinine Ratio 19.1 (10-20); Calcium 7.6 mg/dl (8.5-10.1); Creatinine Clr Calc Pharmacy 52.3 ml/min; Est GFR (African American) 84.3; Est GFR (Non-African American) 72.7; Potassium 4.4 mmol/L (3.5-5.1)
[2019-06-15] MEDS: INSULIN ASPART 100 UNITS/ML 3 ML PEN SC SCH ×4 (08:26→20:34)
[2019-06-15] MEDS: predniSONE 20 MG TAB PO SCH (10:50)
[2019-06-15] MEDS ORDERED: ALBUT/IPRATROP 3MG/0.5MG NEB 3 ML VIAL NEB PRN (11:57)
[2019-06-15] MEDS: LACTOBACILLUS ACIDOPHILUS (FLORANEX) TAB PO SCH ×3 (12:03→20:05)
[2019-06-15] MEDS: ONDANSETRON INJ 2 MG/ML 2 ML VIAL IV PRN (15:43)
--- NOTE | 2019-06-15 15:55 | Hospitalist Progress Note ---
Date of Service June 15, 2019 Assessment & Plan (1) Acute respiratory failure with hypoxia and hypercapnia: (2) Sepsis with metabolic encephalopathy: (3) Pneumonia: Patient is a 78 yr female with H/O COPD, tobacco abuse, MDS, essential thrombocytopenia, anemia, GERD, PUD, depression, anxiety, Right breast cancer s/p mastectomy who presents from [facility] with altered mental status and hypoxia. Healthcare Associated Pneumonia Sepsis Hypoxia Metabolic Encephalopathy secondary to above --CXR:Airspace opacities of the left lung base suggest pneumonia. Follow-up imaging to document resolution recommended. Small left parapneumonic effusion. Unchanged increased density of the right hemithorax secondary to unilateral breast implant. CT Head:No significant change compared to the prior study. No acute intracranial abnormality. Normal lactate, Procalcitonin levels Influenza screen is negative Blood Cx: No growth to date Urine Cx: Negative Sputum Cx:Staph.aureus IV Vanco, Zosyn transitioned to PO Augmentin, Doxycycline IV solumedrol transitioned to Prednisone 20mg daily Continue nebs Appreciate Newspaper Peddler Help Continue current management Saturating 90% on room air (4) Elevated troponin: Troponin trended down Likely due to Demand ischemia given sepsis Denies chest pain (5) COPD (chronic obstructive pulmonary disease): Former Tobacco use no signs of acute exacerbation Continue with pulmonary hygiene Continue home inhalers (6) Pelvic fracture: s/p fall at OSH Patient has been at [facility] x 2 weeks for sub acute rehab WBAT PT/OT (7) CKD (chronic kidney disease), stage III: Cr at baseline Monitor renal function (8) MDS/MPN (myelodysplastic/myeloproliferative neoplasms): Monitor CBC (9) Essential thrombocythemia: Monitor platelets Continue hydroxyurea and anagrelide (10) Insomnia: On temazepam, trazodone, amitriptyline at bedtime Temazepam resumed Hold trazodone for now Monitor (11) History of breast cancer: S/P R masectomy with breast implant (12) DVT prophylaxis: Lovenox SQ Code Status Conditional Code Disposition: PT/OT: Needs SNF placement Follow-up: PCP Dr. Chavez upon discharge Subjective Patient is seen and examined at bedside States feeling tired today Otherwise feels much improved today No new complaints Has pelvic pain from prior fracture--better Less SOB, cough Denies any chest pain, dizziness, abdominal pain Review of Systems Review of Systems: All systems reviewed & are unremarkable except as noted in HPI & below Physical Exam Physical Exam: Physical Exam: Vitals signs as noted above General Appearance:Moderately built and nourished, no apparent distress Head: normocephalic, Atraumatic Eyes: normal inspection, EOMI Neck: supple, Trachea midline Respiratory/Chest: Coarse breath sounds, CTA, +R breast Implant Cardiovascular: S1, S2, No murmur Abdomen/GI:Soft, Non tender, Bowel sounds present Extremities/Musculoskelatal:normal inspection, no edema Neurologic/Psych:AAOX3, grossly no focal neurological deficits Skin: normal color, warm Results & Data Vital Signs (Past 12 Hours) Vital Signs Temp Pulse Pulse Resp BP Pulse Ox 06/15/19 11:17 36.7 C 87 18 109/68 90 06/15/19 08:00 75 06/15/19 07:14 36.7 C 82 20 117/71 90 06/15/19 03:59 36.7 C 87 20 95/62 L 90 Laboratory Results Short CBC 06/15/19 Range/Units 07:14 WBC 8.34 (4.8-10.8) K/uL Hgb 8.3 L (12.0-16.0) g/dL Hct 27.8 L (37-47) % Plt Count 452 H (130-400) K/uL BMP 06/15/19 07:14 Sodium 143 Potassium 4.4 Chloride 116 H Carbon Dioxide 25 BUN 15 Creatinine 0.79 Glucose 113 H Calcium 7.6 L (1) Pneumonia Laterality: left Lung location: lower lobe of lung Pneumonia type: due to unspecified organism Qualified Code(s): J18.1 - Lobar pneumonia, unspecified organism (2) COPD (chronic obstructive pulmonary disease) COPD type: unspecified COPD Qualified Code(s): J44.9 - Chronic obstructive pulmonary disease, unspecified
[2019-06-15] MEDS: AMITRIPTYLINE HCL 100 MG TAB PO SCH (20:04)
[2019-06-15] MEDS: ENOXAPARIN INJ 40 MG/0.4 ML SYR SQ SCH (20:05)
[2019-06-15] MEDS: TEMAZEPAM 15 MG CAPSULE PO PRN (21:25)
[2019-06-15] MEDS: TRAZODONE HCL 50 MG TAB PO SCH (21:25)
[2019-06-15] MEDS ORDERED: OXYCODONE HCL IR 5 MG TAB (IMMEDIATE RELEASE) PO PRN (21:38)
[2019-06-15] MEDS ORDERED: KETOROLAC TROMETHAMINE 15 MG/ML VIAL IV ONE (21:41)
[2019-06-16] MEDS: predniSONE 20 MG TAB PO SCH (07:49)
[2019-06-16] MEDS: INSULIN ASPART 100 UNITS/ML 3 ML PEN SC SCH ×4 (07:49→21:35)
[2019-06-16] MEDS: HYDROXYUREA 500 MG CAP PO SCH (07:49)
[2019-06-16] MEDS: LACTOBACILLUS ACIDOPHILUS (FLORANEX) TAB PO SCH ×4 (07:49→22:26)
[2019-06-16] MEDS: AMOXICILLIN/CLAVULANATE 875 MG TAB PO SCH ×2 (07:49→17:08)
[2019-06-16] MEDS: ANAGRELIDE 1 MG PO SCH (07:50)
[2019-06-16] MEDS: DOXYCYCLINE HYCLATE 100 MG CAP PO SCH ×2 (07:52→21:09)
[2019-06-16] MEDS: PANTOprazole 40 MG TAB PO SCH ×2 (07:52→21:07)
[2019-06-16] MEDS: OXYCODONE HCL IR 5 MG TAB (IMMEDIATE RELEASE) PO PRN ×3 (07:55→21:07)
[2019-06-16] MEDS: PREGABALIN 75 MG CAP PO SCH ×2 (07:55→21:06)
[2019-06-16 07:58] LABS: Hematocrit (blood only) 29.4 % (37-47); Hemoglobin 8.6 g/dL (12.0-16.0)
[2019-06-16] MEDS ORDERED: LACTOBACILLUS ACIDOPHILUS (FLORANEX) TAB PO SCH (12:00)
[2019-06-16] MEDS: ALBUT/IPRATROP 3MG/0.5MG NEB 3 ML VIAL NEB SCH ×3 (14:06→19:17)
--- NOTE | 2019-06-16 14:11 | Hospitalist Progress Note ---
Date of Service June 16, 2019 Assessment & Plan (1) Acute respiratory failure with hypoxia and hypercapnia: (2) Sepsis with metabolic encephalopathy: (3) Pneumonia: Patient is a 78 yr female with H/O COPD, tobacco abuse, MDS, essential thrombocytopenia, anemia, GERD, PUD, depression, anxiety, Right breast cancer s/p mastectomy who presents from [facility] with altered mental status and hypoxia. Healthcare Associated Pneumonia Sepsis Hypoxia Metabolic Encephalopathy secondary to above --CXR:Airspace opacities of the left lung base suggest pneumonia. Follow-up imaging to document resolution recommended. Small left parapneumonic effusion. Unchanged increased density of the right hemithorax secondary to unilateral breast implant. CT Head:No significant change compared to the prior study. No acute intracranial abnormality. Normal lactate, Procalcitonin levels Influenza screen is negative Blood Cx: No growth to date Urine Cx: Negative Sputum Cx:Staph.aureus IV Vanco, Zosyn transitioned to PO Augmentin, Doxycycline IV solu-medrol transitioned to Prednisone 20mg daily Continue nebs Appreciate Neck Cutter Help Continue current management Saturating well on room air Continue Nebs for wheezing (4) Elevated troponin: Troponin trended down Likely due to Demand ischemia given sepsis Denies chest pain (5) COPD (chronic obstructive pulmonary disease): Former Tobacco use Mild acute exacerbation Continue with pulmonary hygiene Continue home inhalers Continue Nebs, Prednisone (6) Pelvic fracture: s/p fall at OSH Patient has been at [facility] x 2 weeks for sub acute rehab WBAT PT/OT (7) CKD (chronic kidney disease), stage III: Cr at baseline Monitor renal function (8) MDS/MPN (myelodysplastic/myeloproliferative neoplasms): Monitor CBC (9) Essential thrombocythemia: Monitor platelets Continue hydroxyurea and anagrelide (10) Insomnia: On temazepam, trazodone, amitriptyline at bedtime Temazepam resumed Hold trazodone for now Monitor (11) History of breast cancer: S/P R masectomy with breast implant (12) DVT prophylaxis: Lovenox SQ Code Status Conditional Code Disposition: PT/OT: Needs SNF placement Follow-up: PCP Dr. Chavez upon discharge Subjective Patient is seen and examined at bedside Complains of SOB today Less cough No other complaints Has pelvic pain from prior fracture Denies any chest pain, dizziness, nausea, abdominal pain Review of Systems Review of Systems: All systems reviewed & are unremarkable except as noted in HPI & below Physical Exam Physical Exam: Physical Exam: Vitals signs as noted above General Appearance:Moderately built and nourished, no apparent distress Head: normocephalic, Atraumatic Eyes: normal inspection, EOMI Neck: supple, Trachea midline Respiratory/Chest: Coarse breath sounds, CTA, +R breast Implant Cardiovascular: S1, S2, No murmur Abdomen/GI:Soft, Non tender, Bowel sounds present Extremities/Musculoskelatal:normal inspection, no edema Neurologic/Psych:AAOX3, grossly no focal neurological deficits Skin: normal color, warm Results & Data Vital Signs (Past 12 Hours) Vital Signs Temp Pulse Pulse Resp BP Pulse Ox 06/16/19 11:44 37.0 C 112 H 17 126/70 90 06/16/19 09:16 79 18 94 06/16/19 08:00 94 H 06/16/19 06:54 36.8 C 67 18 96/56 L 95 06/16/19 04:17 37.1 C 90 18 101/49 L 95 Laboratory Results Short CBC 06/16/19 Range/Units 06:53 Hgb 8.6 L (12.0-16.0) g/dL Hct 29.4 L (37-47) % (1) Pneumonia Laterality: left Lung location: lower lobe of lung Pneumonia type: due to unspecified organism Qualified Code(s): J18.1 - Lobar pneumonia, unspecified organism (2) COPD (chronic obstructive pulmonary disease) COPD type: unspecified COPD Qualified Code(s): J44.9 - Chronic obstructive pulmonary disease, unspecified
[2019-06-16] MEDS: ONDANSETRON INJ 2 MG/ML 2 ML VIAL IV PRN (15:41)
[2019-06-16] MEDS: ACETAMINOPHEN 325 MG TAB PO PRN (21:06)
[2019-06-16] MEDS: TEMAZEPAM 15 MG CAPSULE PO PRN (21:07)
[2019-06-16] MEDS: AMITRIPTYLINE HCL 100 MG TAB PO SCH (21:08)
[2019-06-16] MEDS: TRAZODONE HCL 50 MG TAB PO SCH (21:09)
[2019-06-16] MEDS: ENOXAPARIN INJ 40 MG/0.4 ML SYR SQ SCH (21:10)
[2019-06-17] MEDS: ALBUT/IPRATROP 3MG/0.5MG NEB 3 ML VIAL NEB SCH ×4 (07:06→18:52)
[2019-06-17] MEDS: ANAGRELIDE 1 MG PO SCH (08:03)
[2019-06-17] MEDS: LACTOBACILLUS ACIDOPHILUS (FLORANEX) TAB PO SCH ×4 (08:06→21:11)
[2019-06-17] MEDS: HYDROXYUREA 500 MG CAP PO SCH (08:06)
[2019-06-17] MEDS: AMOXICILLIN/CLAVULANATE 875 MG TAB PO SCH ×2 (08:06→19:19)
[2019-06-17] MEDS: DOXYCYCLINE HYCLATE 100 MG CAP PO SCH ×2 (08:07→21:11)
[2019-06-17] MEDS: PANTOprazole 40 MG TAB PO SCH ×2 (08:07→21:11)
[2019-06-17] MEDS: predniSONE 20 MG TAB PO SCH (08:07)
[2019-06-17] MEDS: PREGABALIN 75 MG CAP PO SCH ×2 (08:08→21:11)
[2019-06-17] MEDS: INSULIN ASPART 100 UNITS/ML 3 ML PEN SC SCH ×4 (08:12→20:41)
[2019-06-17 09:02] LABS: BUN Creatinine Ratio 15.9 (10-20); Calcium 8.2 mg/dl (8.5-10.1); Est GFR (African American) 85.6; Est GFR (Non-African American) 73.8; Potassium 3.6 mmol/L (3.5-5.1)
[2019-06-17] MEDS: OXYCODONE HCL IR 5 MG TAB (IMMEDIATE RELEASE) PO PRN (15:59)
[2019-06-17] MEDS: ONDANSETRON INJ 2 MG/ML 2 ML VIAL IV PRN (16:00)
--- NOTE | 2019-06-17 19:27 | Hospitalist Progress Note ---
Date of Service June 17, 2019 Assessment & Plan (1) Acute respiratory failure with hypoxia and hypercapnia: (2) Sepsis with metabolic encephalopathy: (3) Pneumonia: Patient is a 78 yr female with H/O COPD, tobacco abuse, MDS, essential thrombocytopenia, anemia, GERD, PUD, depression, anxiety, Right breast cancer s/p mastectomy who presents from [facility] with altered mental status and hypoxia. Healthcare Associated Pneumonia Sepsis Hypoxia Metabolic Encephalopathy secondary to above --CXR:Airspace opacities of the left lung base suggest pneumonia. Follow-up imaging to document resolution recommended. Small left parapneumonic effusion. Unchanged increased density of the right hemithorax secondary to unilateral breast implant. CT Head:No significant change compared to the prior study. No acute intracranial abnormality. Normal lactate, Procalcitonin levels Influenza screen is negative Blood Cx: No growth to date Urine Cx: Negative Sputum Cx:Staph.aureus IV Vanco, Zosyn transitioned to PO Augmentin, Doxycycline IV solu-medrol transitioned to Prednisone--completed the course Nebs PRN Appreciate Fusion Operator Help Swelling minimal oxygen to maintain saturations Waiting for placement (4) Elevated troponin: Troponin trended down Likely due to Demand ischemia given sepsis Denies chest pain (5) COPD (chronic obstructive pulmonary disease): Former Tobacco use Mild acute exacerbation Continue with pulmonary hygiene Continue home inhalers Continue Nebs Completed Steroid course (6) Pelvic fracture: s/p fall at OSH Patient has been at [facility] x 2 weeks for sub acute rehab WBAT PT/OT (7) CKD (chronic kidney disease), stage III: Cr at baseline Monitor renal function (8) MDS/MPN (myelodysplastic/myeloproliferative neoplasms): Monitor CBC (9) Essential thrombocythemia: Monitor platelets Continue hydroxyurea and anagrelide (10) Insomnia: On temazepam, trazodone, amitriptyline at bedtime Continue home meds Monitor (11) History of breast cancer: S/P R masectomy with breast implant (12) DVT prophylaxis: Lovenox SQ Code Status Conditional Code Disposition: PT/OT: Needs Rehab placement Follow-up: PCP Dr. Chavez upon discharge Subjective Patient is seen and examined at bedside Feels a lot better today Diarrhea improved No new complaints No wheezing on exam Less cough and SOB Pelvic pain from prior fracture is controlled Denies any chest pain, dizziness, nausea, abdominal pain Review of Systems Review of Systems: All systems reviewed & are unremarkable except as noted in HPI & below Physical Exam Physical Exam: Physical Exam: Vitals signs as noted above General Appearance:Moderately built and nourished, no apparent distress Head: normocephalic, Atraumatic Eyes: normal inspection, EOMI Neck: supple, Trachea midline Respiratory/Chest: Coarse breath sounds, CTA, +R breast Implant Cardiovascular: S1, S2, No murmur Abdomen/GI:Soft, Non tender, Bowel sounds present Extremities/Musculoskelatal:normal inspection, no edema Neurologic/Psych:AAOX3, grossly no focal neurological deficits Skin: normal color, warm Results & Data Vital Signs (Past 12 Hours) Vital Signs Temp Pulse Pulse Resp BP Pulse Ox 06/17/19 19:22 37.1 C 110 H 18 112/58 L 91 06/17/19 18:54 95 H 16 91 06/17/19 15:46 37.5 C 87 18 102/55 L 90 06/17/19 15:09 81 16 90 06/17/19 13:29 93 06/17/19 11:32 94 06/17/19 11:00 36.5 C 104 H 18 93/51 L 93 06/17/19 10:52 107 H 18 98 06/17/19 08:00 66 Laboratory Results BMP 06/17/19 07:59 Sodium 146 H Potassium 3.6 Chloride 116 H Carbon Dioxide 24 BUN 12 Creatinine 0.78 Glucose 114 H Calcium 8.2 L (1) Pneumonia Laterality: left Lung location: lower lobe of lung Pneumonia type: due to unspecified organism Qualified Code(s): J18.1 - Lobar pneumonia, unspecified organism (2) COPD (chronic obstructive pulmonary disease) COPD type: unspecified COPD Qualified Code(s): J44.9 - Chronic obstructive pulmonary disease, unspecified
[2019-06-17] MEDS: ENOXAPARIN INJ 40 MG/0.4 ML SYR SQ SCH (21:07)
[2019-06-17] MEDS: TRAZODONE HCL 50 MG TAB PO SCH (21:11)
[2019-06-17] MEDS: AMITRIPTYLINE HCL 100 MG TAB PO SCH (21:11)
[2019-06-17] MEDS: TEMAZEPAM 15 MG CAPSULE PO PRN (21:15)
[2019-06-18] MEDS: ALBUT/IPRATROP 3MG/0.5MG NEB 3 ML VIAL NEB SCH ×4 (07:01→19:08)
[2019-06-18] MEDS: INSULIN ASPART 100 UNITS/ML 3 ML PEN SC SCH ×4 (07:41→20:47)
[2019-06-18] MEDS: PREGABALIN 75 MG CAP PO SCH ×2 (08:00→20:22)
[2019-06-18] MEDS: PANTOprazole 40 MG TAB PO SCH ×2 (08:01→20:19)
[2019-06-18] MEDS: LACTOBACILLUS ACIDOPHILUS (FLORANEX) TAB PO SCH ×4 (08:01→20:15)
[2019-06-18] MEDS: AMOXICILLIN/CLAVULANATE 875 MG TAB PO SCH ×2 (08:02→17:27)
[2019-06-18] MEDS: ANAGRELIDE 1 MG PO SCH (08:02)
[2019-06-18] MEDS: HYDROXYUREA 500 MG CAP PO SCH (08:03)
[2019-06-18] MEDS: DOXYCYCLINE HYCLATE 100 MG CAP PO SCH ×2 (08:03→20:18)
--- NOTE | 2019-06-18 12:54 | Hospitalist Progress Note ---
Date of Service June 18, 2019 Assessment & Plan (1) Acute respiratory failure with hypoxia and hypercapnia: (2) Sepsis with metabolic encephalopathy: (3) Pneumonia: Patient is a 78 yr female with H/O COPD, tobacco abuse, MDS, essential thrombocytopenia, anemia, GERD, PUD, depression, anxiety, Right breast cancer s/p mastectomy who presents from [facility] with altered mental status and hypoxia. Healthcare Associated Pneumonia Sepsis Hypoxia Metabolic Encephalopathy secondary to above --CXR:Airspace opacities of the left lung base suggest pneumonia. Follow-up imaging to document resolution recommended. Small left parapneumonic effusion. Unchanged increased density of the right hemithorax secondary to unilateral breast implant. CT Head:No significant change compared to the prior study. No acute intracranial abnormality. Normal lactate, Procalcitonin levels Influenza screen is negative Blood Cx: No growth to date Urine Cx: Negative Sputum Cx:Staph.aureus IV Vanco, Zosyn transitioned to PO Augmentin, Doxycycline Day #7 IV solu-medrol transitioned to Prednisone--completed the course Nebs PRN Appreciate Accident Investigator Help Waiting for Rehab placement Diarrhea Likely due to Antibiotics Stool for C diff negative Imodium PRN (4) Elevated troponin: Troponin trended down Likely due to Demand ischemia given sepsis Denies chest pain (5) COPD (chronic obstructive pulmonary disease): Former Tobacco use Mild acute exacerbation Continue with pulmonary hygiene Continue home inhalers Continue Nebs Completed Steroid course (6) Pelvic fracture: s/p fall at OSH Patient has been at [facility] x 2 weeks for sub acute rehab WBAT PT/OT (7) CKD (chronic kidney disease), stage III: Cr at baseline Monitor renal function (8) MDS/MPN (myelodysplastic/myeloproliferative neoplasms): Monitor CBC (9) Essential thrombocythemia: Monitor platelets Continue hydroxyurea and anagrelide (10) Insomnia: On temazepam, trazodone, amitriptyline at bedtime Continue home meds Monitor (11) History of breast cancer: S/P R masectomy with breast implant (12) DVT prophylaxis: Lovenox SQ Code Status Conditional Code Disposition: PT/OT: Needs Rehab placement Follow-up: PCP Dr. Chavez upon discharge Case management consulted for discharge planning Subjective Patient is seen and examined at bedside Complains of loose bowel movement Otherwise feeling a lot better today cough and SOB continues to improve Pelvic pain from prior fracture is controlled Denies any chest pain, dizziness, nausea, abdominal pain Review of Systems Review of Systems: All systems reviewed & are unremarkable except as noted in HPI & below Physical Exam Physical Exam: Physical Exam: Vitals signs as noted above General Appearance:Moderately built and nourished, no apparent distress Head: normocephalic, Atraumatic Eyes: normal inspection, EOMI Neck: supple, Trachea midline Respiratory/Chest: Decreased breath sounds, CTA, +R breast Implant Cardiovascular: S1, S2, No murmur Abdomen/GI:Soft, Non tender, Bowel sounds present Extremities/Musculoskelatal:normal inspection, no edema Neurologic/Psych:AAOX3, grossly no focal neurological deficits Skin: normal color, warm Results & Data Vital Signs (Past 12 Hours) Vital Signs Temp Pulse Pulse Resp BP Pulse Ox 06/18/19 11:50 37.1 C 102 H 22 158/60 H 91 06/18/19 11:13 96 H 16 90 06/18/19 07:54 75 06/18/19 07:06 37 C 79 16 145/68 H 90 06/18/19 07:01 79 16 90 06/18/19 03:48 37 C 84 16 138/75 91 (1) COPD (chronic obstructive pulmonary disease) COPD type: unspecified COPD Qualified Code(s): J44.9 - Chronic obstructive pulmonary disease, unspecified (2) Pneumonia Laterality: left Lung location: lower lobe of lung Pneumonia type: due to unspecified organism Qualified Code(s): J18.1 - Lobar pneumonia, unspecified organism
[2019-06-18] MEDS: OXYCODONE HCL IR 5 MG TAB (IMMEDIATE RELEASE) PO PRN ×3 (14:15→18:46)
[2019-06-18] MEDS: LOPERAMIDE HCL 2 MG CAP PO PRN ×3 (14:25→18:49)
[2019-06-18] MEDS: ONDANSETRON INJ 2 MG/ML 2 ML VIAL IV PRN (15:53)
[2019-06-18] MEDS: ACETAMINOPHEN 325 MG TAB PO PRN ×2 (15:53→20:17)
[2019-06-18] MEDS: TRAZODONE HCL 50 MG TAB PO SCH (20:17)
[2019-06-18] MEDS: ENOXAPARIN INJ 40 MG/0.4 ML SYR SQ SCH (20:18)
[2019-06-18] MEDS: AMITRIPTYLINE HCL 100 MG TAB PO SCH (20:20)
[2019-06-18] MEDS: TEMAZEPAM 15 MG CAPSULE PO PRN (20:27)
[2019-06-19] MEDS: ALBUT/IPRATROP 3MG/0.5MG NEB 3 ML VIAL NEB SCH (06:53)
[2019-06-19] MEDS: INSULIN ASPART 100 UNITS/ML 3 ML PEN SC SCH (07:47)
[2019-06-19] MEDS: ANAGRELIDE 1 MG PO SCH (08:35)
[2019-06-19] MEDS: PANTOprazole 40 MG TAB PO SCH (08:36)
[2019-06-19] MEDS: DOXYCYCLINE HYCLATE 100 MG CAP PO SCH (08:36)
[2019-06-19] MEDS: AMOXICILLIN/CLAVULANATE 875 MG TAB PO SCH (08:36)
[2019-06-19] MEDS: LACTOBACILLUS ACIDOPHILUS (FLORANEX) TAB PO SCH ×2 (08:37→11:48)
[2019-06-19] MEDS: PREGABALIN 75 MG CAP PO SCH (08:37)
[2019-06-19] MEDS: HYDROXYUREA 500 MG CAP PO SCH (08:37)
--- NOTE | 2019-06-19 09:43 | Hospitalist Progress Note ---
Date of Service June 19, 2019 Assessment & Plan (1) Acute respiratory failure with hypoxia and hypercapnia: (2) Sepsis with metabolic encephalopathy: (3) Pneumonia: Patient is a 78 yr female with H/O COPD, tobacco abuse, MDS, essential thrombocytopenia, anemia, GERD, PUD, depression, anxiety, Right breast cancer s/p mastectomy who presents from [facility] with altered mental status and hypoxia. Healthcare Associated Pneumonia Sepsis Hypoxia Metabolic Encephalopathy secondary to above --CXR:Airspace opacities of the left lung base suggest pneumonia. Follow-up imaging to document resolution recommended. Small left parapneumonic effusion. Unchanged increased density of the right hemithorax secondary to unilateral breast implant. CT Head:No significant change compared to the prior study. No acute intracranial abnormality. Normal lactate, Procalcitonin levels Influenza screen is negative Blood Cx: No growth to date Urine Cx: Negative Sputum Cx:Staph.aureus IV Vanco, Zosyn transitioned to PO Augmentin, Doxycycline Day #7 Completed antibiotic course IV solu-medrol transitioned to Prednisone--completed the course Nebs PRN Appreciate Sweat Band Sewer Help Refused by Rehab Plan to discharge home with Home health 2 Step: 2 liters of Oxygen with Activity Diarrhea Stool for C diff negative Improved Imodium PRN (4) Elevated troponin: Troponin trended down Likely due to Demand ischemia given sepsis Denies chest pain (5) COPD (chronic obstructive pulmonary disease): Former Tobacco use Mild acute exacerbation Continue with pulmonary hygiene Continue home inhalers Continue Nebs Completed Steroid course (6) Pelvic fracture: s/p fall at OSH Patient has been at [facility] x 2 weeks for sub acute rehab WBAT PT/OT (7) CKD (chronic kidney disease), stage III: Cr at baseline Monitor renal function (8) MDS/MPN (myelodysplastic/myeloproliferative neoplasms): Monitor CBC (9) Essential thrombocythemia: Monitor platelets Continue hydroxyurea and anagrelide (10) Insomnia: On temazepam, trazodone, amitriptyline at bedtime Continue home meds Monitor (11) History of breast cancer: S/P R masectomy with breast implant (12) DVT prophylaxis: Lovenox SQ Code Status Conditional Code Disposition: Plan to discharge home with Home Health Follow-up: PCP Dr. Chavez upon discharge Case management consulted for discharge planning Subjective Patient is seen and examined at bedside No diarrhea today Minimal cough SOB resolved Pelvic pain from prior fracture is controlled Denies any chest pain, dizziness, nausea, abdominal pain Review of Systems Review of Systems: All systems reviewed & are unremarkable except as noted in HPI & below Physical Exam Physical Exam: Physical Exam: Vitals signs as noted above General Appearance:Moderately built and nourished, no apparent distress Head: normocephalic, Atraumatic Eyes: normal inspection, EOMI Neck: supple, Trachea midline Respiratory/Chest: Decreased breath sounds, minimal basal crackles, +R breast Implant Cardiovascular: S1, S2, No murmur Abdomen/GI:Soft, Non tender, Bowel sounds present Extremities/Musculoskelatal:normal inspection, no edema Neurologic/Psych:AAOX3, grossly no focal neurological deficits Skin: normal color, warm Results & Data Vital Signs (Past 12 Hours) Vital Signs Temp Pulse Pulse Resp BP BP Pulse Ox 06/19/19 08:00 37.0 C 78 18 103/65 92 06/19/19 06:55 79 18 81 L 06/19/19 03:00 36.6 C 82 20 104/65 92 06/19/19 00:39 96 H 06/18/19 22:35 36.7 C 82 18 118/70 91 (1) Pneumonia Laterality: left Lung location: lower lobe of lung Pneumonia type: due to unspecified organism Qualified Code(s): J18.1 - Lobar pneumonia, unspecified organism (2) COPD (chronic obstructive pulmonary disease) COPD type: unspecified COPD Qualified Code(s): J44.9 - Chronic obstructive pulmonary disease, unspecified
--- NOTE | 2019-06-19 09:53 | Discharge Summary ---
Date of Service June 19, 2019 Admission HPI Per Admitting Provider This is a 78-year-old female who has significant past medical history of COPD, tobacco abuse, MDS, essential thrombocytopenia, anemia, GERD, history of PUD, depression, anxiety, history of right breast cancer s/p masectomy who presents to [facility] ED from [facility] secondary to altered mental status and hypoxia x 2 day. Patient has been residing at [facility] for the past 2 weeks secondary to suffering a nonoperable pelvic fracture. She was out in [place] when she fell off a barstool and presented to outside hospital. Was found to have pelvic fracture and discharged for skilled rehab at [facility]. Per son she has been mostly bedridden due to fracture. He last saw her 2 days ago in her normal state of health. At baseline she is alert and oriented x3 with a good sense of humor, independent of most ADLs and ambulate without assist device prior to fracture. Today she is much more confused and requiring oxygen. Patient complains of a productive cough for the past 2 months, most recently producing brown sputum, increasing shortness of breath, nausea, left leg pain. She denies any recent fever, chills, sweats, lightheadedness, dizziness, chest pain, palpitations, hemoptysis, emesis, abdominal pain, dysuria, increased urgency or frequency with urination, melena, hematochezia, diarrhea. Her last use of tobacco was prior to her fracture. She does vape daily. "I hide it in my purse." Her last vape was approximately 1 hour ago per patient. Normally patient has adequate appetite. No reported weight loss or gain. ROS obtained but unsure of reliability given patient's altered mental status. Unable to obtain accurate family history. Surgical history and social history obtained from previous records. Spoke with nursing at [facility] who states that she is weightbearing as tolerated and has been ambulating up and down the halls. Son states she is much more immobile. Nursing staff has noticed she has been requiring intermittent oxygen. No other concerns reported. Admission Exam Per Admitting Provider Constitutional: WD/WN, petite, elderly female, appears older than stated age, vitals as above, NAD, sitting up in bed, pleasant, conversing easily Head: Normocephalic, Atraumatic Eyes: PERRL, conjunctivae normal, anicteric sclerae ENMT: external ear and nose normal, oropharynx mucous membranes dry Neck: trachea midline, no thyromegaly normal visual inspection Respiratory: normal respiratory effort, on Oxymizer 6 L, coarse breath sounds left mid and lower lobe, positive rhonchi which cleared with coughing, lungs clear to auscultation on right, no wheeze or rales noted. Normal insp/exp effort, no accessory muscle use Cardiovascular: RRR, no murmur, no edema Vessels: no JVD or carotid bruit Chest: + Right breast implant noted Abdomen: normal bowel sounds, soft, nontender, no hepatosplenomegaly Musculoskeletal: no cyanosis or clubbing, extremities motor strength 5/5 Skin: no rashes, warm and dry mild turgor Neurologic: PERRL, EOMI, accommodation nl, no face palsy, no dysarthria CN's II-XI intact bilaterally and moves all extremities Psychiatric: A+Ox2 tp person and place, euthymic affect Lymphatic: no cervical or axillary lymphadenopathy : deferred Principal Diagnosis Acute respiratory failure with hypoxia and hypercapnia Sepsis Metabolic encephalopathy Pneumonia Discharge Data Allergies Allergy/AdvReac Type Severity Reaction Status Date / Time latex Allergy Intermediate HIVES Verified 06/12/19 19:56 nickel Allergy Intermediate Hives/Itchi Verified 06/12/19 19:57 ness Iodinated Contrast Media AdvReac Mild Diarrhea Verified 06/12/19 19:56 [Iodinated Contrast- Oral and IV Dye] Lobster Allergy Severe HIVES Uncoded 06/12/19 15:13 Consultations 06/12/19 17:00 ED Decision to Admit Stat 06/12/19 18:23 Consult Mfts Stat 06/12/19 19:32 Consult Case Management - Discharge Planning Routine Procedures Performed CT Head: No significant change compared to the prior study. No acute intracranial abnormality. CXR: 1. Airspace opacities of the left lung base suggest pneumonia. Follow-up imaging to document resolution recommended. 2. Small left parapneumonic effusion. 3. Unchanged increased density of the right hemithorax secondary to unilateral breast implant. Ordered Studies 06/12/19 14:43 CT head/brain wo con Stat Hospital Course (1) Acute respiratory failure with hypoxia and hypercapnia: (2) Sepsis with metabolic encephalopathy: (3) Pneumonia: Patient is a 78 yr female with H/O COPD, tobacco abuse, MDS, essential thrombocytopenia, anemia, GERD, PUD, depression, anxiety, Right breast cancer s/p mastectomy who presents from [facility] with altered mental status and hypoxia. Healthcare Associated Pneumonia Sepsis Hypoxia Metabolic Encephalopathy secondary to above --CXR:Airspace opacities of the left lung base suggest pneumonia. Follow-up imaging to document resolution recommended. Small left parapneumonic effusion. Unchanged increased density of the right hemithorax secondary to unilateral breast implant. CT Head:No significant change compared to the prior study. No acute intracranial abnormality. Normal lactate, Procalcitonin levels Influenza screen is negative Blood Cx: No growth to date Urine Cx: Negative Sputum Cx:Staph.aureus IV Vanco, Zosyn transitioned to PO Augmentin, Doxycycline Day #7 Completed antibiotic course IV solu-medrol transitioned to Prednisone--completed the course Nebs PRN Appreciate Mfts Help Refused by Rehab Plan to discharge home with Home health 2 Step: 2 liters of Oxygen with Activity Diarrhea Stool for C diff negative Improved Imodium PRN (4) Elevated troponin: Troponin trended down Likely due to Demand ischemia given sepsis Denies chest pain (5) COPD (chronic obstructive pulmonary disease): Former Tobacco use Mild acute exacerbation Continue with pulmonary hygiene Continue home inhalers Continue Nebs Completed Steroid course (6) Pelvic fracture: s/p fall at OSH Patient has been at [facility] x 2 weeks for sub acute rehab WBAT PT/OT (7) CKD (chronic kidney disease), stage III: Cr at baseline Monitor renal function (8) MDS/MPN (myelodysplastic/myeloproliferative neoplasms): Monitor CBC (9) Essential thrombocythemia: Monitor platelets Continue hydroxyurea and anagrelide (10) Insomnia: On temazepam, trazodone, amitriptyline at bedtime Continue home meds Monitor (11) History of breast cancer: S/P R masectomy with breast implant (12) DVT prophylaxis: Lovenox SQ Code Status Conditional Code Disposition: Plan to discharge home with Home Health Follow-up: PCP Dr. Chavez upon discharge Case management consulted for discharge planning Total Time Total Time Spent Total Time Spent (In Minutes): 42 minutes Total Time Includes: Examination of the Patient, Discharge Planning, Medication Reconciliation, Communication With Other Providers and Other Discharge Plan Discharge Items Patient Disposition: Home - Home Health Services Reason For Visit: SEPSIS, LLL PNA Discharge Diagnosis: Acute respiratory failure with hypoxia and hypercapnia Sepsis Metabolic encephalopathy Pneumonia Activity: Resume your previous activity Exercise/Sports: Gradually increase as tolerated Non-emergency contact: Primary Care Provider Call non-emergency contact if: you have any medication questions, your symptoms worsen, your pain is not controlled, your pain is worsening, your pain is unusual for you, your pain is concerning for you and you have a fever Follow-up/Referrals: Valerie Chavez MD [Primary Care Provider] - Diet: Heart Healthy Addtl Attending Provider Instructions: Follow-up with your primary care physician Dr. Hsu on June 24, 2019 at 1 PM Use oxygen via nasal cannula 2 Liters with activity as advised Seek immediate medical attention if your symptoms reoccur or worsen Pending Studies at Discharge: No Stand-Alone Forms: My [facility] Medications and DC Order Prescriptions: New loperamide 2 mg Capsule 2 mg PO UD PRN (Reason: loose stool) Qty: 20 RF: 0 Lactobacillus acidoph-L.bulgar [Floranex] 1 million cell Tablet 4 tab PO QIDM 10 Days Qty: 40 RF: 0 Continued amitriptyline 100 mg Tablet 100 mg PO HS RF: 0 Breo Ellipta 100-25 mcg/dose Blister With Device 1 inh INHALATION DAILY RF: 0 hydroxyurea [Hydrea] 500 mg Capsule 500 mg PO DAILY RF: 0 trazodone 50 mg Tablet 50 mg PO HS RF: 0 ondansetron HCl [Zofran] 8 mg Tablet 8 mg PO TID PRN (Reason: Nausea) RF: 0 temazepam [Restoril] 30 mg Capsule 30 mg PO HS PRN (Reason: Sleep) RF: 0 pantoprazole [Protonix] 40 mg Tablet,Delayed Release (Dr/Ec) 40 mg PO BID RF: 0 anagrelide 1 mg Capsule 1 mg PO DAILY RF: 0 albuterol sulfate [Ventolin HFA] 90 mcg/actuation Hfa Aerosol Inhaler 2 puff INHALATION QID PRN (Reason: Shortness Of Breath Or Wheezing) RF: 0 pregabalin [Lyrica] 75 mg Capsule 75 mg PO BID RF: 0 acetaminophen [Tylenol Extra Strength] 500 mg Tablet 500 mg PO Q6H PRN (Reason: Pain) RF: 0 Discharge Orders: Discharge Order (Routine); Ordered 06/19/19 Ordered By: Carl Jackson Admission Data Admit Date/Time: 06/12/19 17:46 Attending Provider: Carl Jackson Admit Provider: Carlotta Grant Primary Care Provider: Valerie Chavez Other Providers: Carlotta Grant ; Brian Heck ; [facility], ; [facility]
[2019-06-19] MEDS: OXYCODONE HCL IR 5 MG TAB (IMMEDIATE RELEASE) PO PRN (11:47)
== END 2019-06-19 12:48 | disposition home health service (06) | DRG 871 ==
LOC: ED 13:58 → SUATTDRO 17:46 → 1E 17:46 → 2W 06-13 15:12

== ENCOUNTER 2019-06-30 23:18 | Inpatient (IN) ==
[2019-07-01 00:12] LABS: Basophils # (auto) 0.05 K/uL (0-0.2); Basophils % (auto) 0.6 %; Eosinophils # (auto) 0.38 K/uL (0-0.5); Eosinophils % (auto) 4.8 %; Hematocrit (blood only) 23.7 % (37-47); Hemoglobin 7.3 g/dL (12.0-16.0); Immature Granulocytes # (auto) 0.03 K/uL (0.00-0.02); Immature Granulocytes % (auto) 0.4 %; Lymphocytes # (auto) 1.58 K/uL (1.2-3.4); Lymphocytes % (auto) 19.8 %; Mean Corpuscular Hemoglobin 31.3 pg (25-34); Mean Corpuscular Hgb Conc 30.8 g/dL (32-36); Mean Corpuscular Volume 101.7 fL (80-100); Mean Platelet Volume 12.8 fL (7.4-10.4); Monocytes # (auto) 0.66 K/uL (0.11-0.59); Monocytes % (auto) 8.3 %; Neutrophils # (auto) 5.26 K/uL (1.4-6.5); Neutrophils % (auto) 66.1 %; Platelet Count 340 K/uL (130-400); Red Blood Count 2.33 M/uL (4.2-5.4); White Blood Count 7.96 K/uL (4.8-10.8)
[2019-07-01 00:23] LABS: INR 1.1 (0.9-1.1); Partial Thromboplastin Time 26.2 Seconds (21.0-31.0); Prothrombin Time 11.4 Seconds (9.0-12.0)
[2019-07-01 00:29] LABS: Alanine Aminotransferase 12 U/L (12-78); Albumin Level 2.7 gm/dl (3.4-5.0); Aspartate Aminotransferase 13 U/L (15-37); BUN Creatinine Ratio 20.3 (10-20); Blood Urea Nitrogen 16 mg/dl (7-18); Calcium 8.2 mg/dl (8.5-10.1); Carbon Dioxide 30 mmol/L (21-32); Chloride 108 mmol/L (98-107); Est GFR (African American) 84.3; Est GFR (Non-African American) 72.7; Glucose 98 mg/dl (70-99); Magnesium 1.6 mg/dl (1.8-2.4); Potassium 4.1 mmol/L (3.5-5.1); Sodium 142 mmol/L (136-145)
[2019-07-01 00:32] LABS: Anisocytosis Present; Basophilic Stippling Occasional; Giant Platelets 3+; Macrocytosis Present; Tear Drop Cells 1+
[2019-07-01 00:34] LABS: Appearance Urine Clear (Clear); Bilirubin Urine Negative (Negative); Blood Urine Negative (Negative); Color Urine Yellow; Glucose Urine UA Negative (Negative); Ketones Urine Negative (Negative); Leukocyte Esterase Urine Negative (Negative); Nitrite Urine Negative (Negative); Protein Urine Negative (Negative); Specific Gravity Urine 1.017 (1.000-1.030); Urobilinogen Urine Negative (Negative); pH Urine 5.5 (4.5-7.5)
[2019-07-01 00:34] LABS: Albumin Globulin Ratio 0.9 (0.9-2); Alkaline Phosphatase 76 U/L (45-117); Bilirubin,Total 0.6 mg/dl (0.2-1); Globulin 2.9 gm/dl (2.5-4.0); Total Protein 5.6 gm/dl (6.4-8.2); Troponin I < 0.015 ng/ml (0-0.045)
[2019-07-01] MEDS ORDERED: GADOBUTROL 30ML VIAL IV PRN (02:02)
[2019-07-01] MEDS ORDERED: SODIUM CHLORIDE 0.9% 500 ML IV ONE (02:58)
[2019-07-01] MEDS ORDERED: SODIUM CHLORIDE 0.9% 500 ML IV SCH (03:00)
[2019-07-01] MEDS ORDERED: SODIUM CHLORIDE 0.9% 250 ML IV PRN ×2 (03:06→09:10)
[2019-07-01] MEDS ORDERED: NALOXONE HCL 0.4 MG/1 ML VIAL/CARP IV STA ×2 (03:15→04:00)
[2019-07-01] MEDS ORDERED: NALOXONE HCL 0.4 MG/1 ML VIAL/CARP ONE (03:39)
[2019-07-01] MEDS ORDERED: ALBUT/IPRATROP 3MG/0.5MG NEB 3 ML VIAL NEB STA (04:00)
[2019-07-01] MEDS ORDERED: PROCHLORPERAZINE 1 ML IV ONE (04:01)
[2019-07-01] MEDS ORDERED: PROCHLORPERAZINE 5 MG/ML 2 ML VIAL ONE (04:04)
--- NOTE | 2019-07-01 04:05 | History & Physical Report ---
Date of Service July 01, 2019 Assessment & Plan (1) Unresponsiveness: Likely secondary to home medications (patient on yzsnn-cyn-axtin narcotics, benzo, neuropsychotropic agents) Significant improvement of mental status after Narcan administration. COPD, past tobacco abuse Usual smokers cough symptoms as per son hx breast cancer, right, status post surgery, chemoradiation, thrombocythemia on Hydrea therapy hx myelodysplastic syndrome on Anagrelide Rx, Acute on chronic anemia, hemoglobin drop from baseline (no overt bleed for now) mood/anxiety disorder, patient's son thinks patient;s depression might be suboptimal OBS Medical telemetry Appropriate to hold home narcotics, benzos, neuropsychotropic meds for now until mentation at baseline (Consider decrease in dosage/tapering off narcotics if patient agreeable) Trend H&H, transfuse PRBC if hemoglobin less than 7 and/or for symptomatic anemia Psych consultation if patient agreeable for possible suboptimal depression DVT prophylaxis with Lovenox subcu Conditional code, okay with intubation, defibrillation/no cardiac compressions as per previous directives as per daughter/POA, Riya Kristal Rand. She requests updates from providers thru [phone]. History of Present Illness Chief Complaint: Unresponsiveness as per records Primary Care Provider: Dr. Valerie Chavez History obtained from patient, family , and records. Limited history from patient secondary to obtunded state. Medical history is significant for COPD, past tobacco abuse, hx breast cancer, right, status post surgery, chemoradiation, thrombocythemia on Hydrea therapy, myelodysplastic syndrome on Anagrelide Rx, history of MRSA as per records, chronic anemia (baseline hemoglobin of 8-9), mood/anxiety disorder. Recent confinement 2 weeks ago for respiratory failure, sepsis secondary to H CAP. Patient discharged to home later transitioned to [facility] for rehab. As per son, patient not doing well since rehab stay. Not eating well. Not participating with rehab therapy. Patient son thinks patient might be depressed. Last night, patient found to be increasingly lethargic, subsequently aphasic with decreased movement, questionable right-sided facial droop, right arm weakness.. Stroke alert called upon arrival at the ER. Imaging negative for stroke on initial read. Increased responsiveness after IV Narcan administration at the ER. Medical History as above Surgical History : Cholecystectomy, mastectomy right, hysterectomy, hip surgery Family History : Hypertension Personal/social history past tobacco abuse, no EtOH intake, was living with her daughter prior to rehab stay Allergies Allergy/AdvReac Type Severity Reaction Status Date / Time latex Allergy Intermediate HIVES Verified 07/01/19 00:03 nickel Allergy Intermediate Hives/Itchi Verified 07/01/19 00:03 ness Iodinated Contrast Media AdvReac Mild Diarrhea Verified 07/01/19 00:03 [Iodinated Contrast- Oral and IV Dye] Lobster Allergy Severe HIVES Uncoded 07/01/19 00:03 Home Medications Home Medications Medication Instructions Recorded Confirmed Type anagrelide 1 mg PO DAILY 06/06/18 06/30/19 History hydroxyurea [Hydrea] 500 mg PO DAILY 06/06/18 06/30/19 History pantoprazole [Protonix] 40 mg PO BID 06/06/18 06/30/19 History pregabalin [Lyrica] 75 mg PO BID 06/06/18 06/30/19 History temazepam [Restoril] 30 mg PO HS 06/06/18 06/30/19 History trazodone 50 mg PO HS 06/06/18 06/30/19 History acetaminophen [Tylenol Extra 500 mg PO Q6H PRN 01/30/19 07/01/19 History Strength] Breo Ellipta 1 inh INHALATION DAILY 06/12/19 06/30/19 History amitriptyline 100 mg PO HS 06/12/19 06/30/19 History loperamide 2 mg PO UD PRN #20 cap 06/19/19 06/30/19 Rx acetaminophen 650 mg PO Q6H PRN MDD 3GM/24HR 06/30/19 07/01/19 History oxycodone 10 mg PO Q12 06/30/19 06/30/19 History Lactobacillus acidoph-L.bulgar 4 tab PO QID 07/01/19 07/01/19 History [Floranex] Past Med/Surg History Medical History Pelvic fracture CKD (chronic kidney disease), stage III (Chronic) IBS (irritable bowel syndrome) (Chronic) Diarrhea predominant ; follows with GI Myelodysplastic syndrome (Chronic) H/O: hysterectomy (Chronic) S/P ORIF (open reduction internal fixation) fracture (Chronic) History of peptic ulcer disease (Chronic) History of breast cancer (Chronic) Anemia (Chronic) History of MRSA infection (Chronic) "left hip wound" COPD (chronic obstructive pulmonary disease) (Chronic) Essential thrombocythemia (Chronic) Leukocytosis (Chronic) Fracture of radial neck, left, closed (Resolved) 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) COPD exacerbation (Resolved) Thrombocytosis (Chronic) Myelodysplastic syndrome (Chronic) Surgical History H/O mastectomy (Chronic) right side History of cholecystectomy (Chronic) Status post hysterectomy (Chronic) Status post cholecystectomy (Chronic) Status post mastectomy (Chronic) "modified right mastectomy 1990" Status post total hip replacement, left (Chronic) Family History Other Unknown family medical history Social History Preferred Language: Khmer Communication Ability: Effective 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 Beliefs That Will Affect Care: None marital status: / Current Living Situation: Alf Other Information That Helps Us Care for You: No Feels Safe at Home: Yes Safety Concerns: Feels Safe At This Time Smoking Status: Current every day smoker Tobacco Type: e-cigarettes ; Do You Dip or Chew Tobacco: No ; Second Hand Exposure: No ; Tobacco Cessation Education Requested by Patient: No Hx Alcohol Use: No Hx Substance Use: No Review of Systems Review of Systems: Could not be reliably obtained Physical Exam Physical Exam: GENERAL: uncomfortable, lethargic, follows some commands, no respiratory distress, occasionally coughing/gagging SKIN: Pallor , warm HEENT: Pale palpebral conjunctivae, no ptosis, dry buccal mucosa, edentulous NECK : Supple, no tenderness CHEST : Breast implant mound right, decreased breath sounds, occasional expiratory wheezes, no tenderness HEART : RRR, no obvious murmurs ABDOMEN: Soft, nontender RECTAL : Intact sphincter, yellow stool (FOBT negative) EXTREMITIES : No LE swelling/tenderness, no other conspicuous deformities noted NEUROLOGIC : Lethargic , R facial asymmetry (chronic as per son when patient sleeping without dentures), no other gross focality Results & Data Vital Signs (Past 12 Hours) Vital Signs Temp Pulse Resp BP Pulse Ox 07/01/19 03:30 78 11 L 102/59 L 98 07/01/19 03:15 79 12 93/55 L 96 07/01/19 03:00 81 9 L 91/56 L 98 07/01/19 02:45 80 14 93/55 L 98 07/01/19 02:30 80 15 106/56 L 99 07/01/19 02:15 82 16 118/62 99 07/01/19 02:08 82 16 107/60 97 07/01/19 00:30 83 15 100/58 L 98 07/01/19 00:00 87 13 98/62 L 92 06/30/19 23:45 90 18 94 06/30/19 23:34 85 19 103/56 L 95 06/30/19 23:25 36.5 C 86 14 103/56 L 94 Laboratory Results Laboratory Results WBC 7.96 K/uL (4.8-10.8) 07/01/19 00:02 RBC 2.33 M/uL (4.2-5.4) L 07/01/19 00:02 Hgb 7.3 g/dL (12.0-16.0) L 07/01/19 00:02 Hct 23.7 % (37-47) L 07/01/19 00:02 MCV 101.7 fL (80-100) H 07/01/19 00:02 MCH 31.3 pg (25-34) 07/01/19 00:02 MCHC 30.8 g/dL (32-36) L 07/01/19 00:02 Plt Count 340 K/uL (130-400) 07/01/19 00:02 MPV 12.8 fL (7.4-10.4) H 07/01/19 00:02 Immature Gran % (Auto) 0.4 % 07/01/19 00:02 Neut % (Auto) 66.1 % 07/01/19 00:02 Lymph % (Auto) 19.8 % 07/01/19 00:02 Graham % (Auto) 8.3 % 07/01/19 00:02 Eos % (Auto) 4.8 % 07/01/19 00:02 Baso % (Auto) 0.6 % 07/01/19 00:02 Immature Gran # (Auto) 0.03 K/uL (0.00-0.02) H 07/01/19 00:02 Neut # (Auto) 5.26 K/uL (1.4-6.5) 07/01/19 00:02 Lymph # (Auto) 1.58 K/uL (1.2-3.4) 07/01/19 00:02 Graham # (Auto) 0.66 K/uL (0.11-0.59) H 07/01/19 00:02 Eos # (Auto) 0.38 K/uL (0-0.5) 07/01/19 00:02 Baso # (Auto) 0.05 K/uL (0-0.2) 07/01/19 00:02 Giant Platelets 3+ 07/01/19 00:02 Basophilic Stippling Occasional 07/01/19 00:02 Anisocytosis Present 07/01/19 00:02 Macrocytosis Present 07/01/19 00:02 Tear Drop Cells 1+ 07/01/19 00:02 PT 11.4 Seconds (9.0-12.0) 07/01/19 00:02 INR 1.1 (0.9-1.1) 07/01/19 00:02 APTT 26.2 Seconds (21.0-31.0) 07/01/19 00:02 PTT Ratio 1.0 07/01/19 00:02 Sodium 142 mmol/L (136-145) 07/01/19 00:02 Potassium 4.1 mmol/L (3.5-5.1) 07/01/19 00:02 Chloride 108 mmol/L (98-107) H 07/01/19 00:02 Carbon Dioxide 30 mmol/L (21-32) 07/01/19 00:02 Anion Gap 4.0 (3-11) 07/01/19 00:02 BUN 16 mg/dl (7-18) 07/01/19 00:02 Creatinine 0.79 mg/dl (0.6-1.2) 07/01/19 00:02 Est Cr Clr Drug Dosing Not Reportable 07/01/19 00:02 Est GFR ( Amer) 84.3 07/01/19 00:02 Est GFR (Non-Af Amer) 72.7 07/01/19 00:02 BUN/Creatinine Ratio 20.3 (10-20) H 07/01/19 00:02 Glucose 98 mg/dl (70-99) 07/01/19 00:02 POC Glucose 70 (70-99) 06/30/19 23:37 Lactate 0.5 mmol/L (0.4-2.0) 07/01/19 00:02 Calcium 8.2 mg/dl (8.5-10.1) L 07/01/19 00:02 Magnesium 1.6 mg/dl (1.8-2.4) L 07/01/19 00:02 Total Bilirubin 0.6 mg/dl (0.2-1) 07/01/19 00:02 AST 13 U/L (15-37) L 07/01/19 00:02 ALT 12 U/L (12-78) 07/01/19 00:02 Alkaline Phosphatase 76 U/L (45-117) 07/01/19 00:02 Troponin I < 0.015 ng/ml (0-0.045) 07/01/19 00:02 Total Protein 5.6 gm/dl (6.4-8.2) L 07/01/19 00:02 Albumin 2.7 gm/dl (3.4-5.0) L 07/01/19 00:02 Globulin 2.9 gm/dl (2.5-4.0) 07/01/19 00:02 Albumin/Globulin Ratio 0.9 (0.9-2) 07/01/19 00:02 Urine Color Yellow 06/30/19 23:10 Urine Appearance Clear (Clear) 06/30/19 23:10 Urine pH 5.5 (4.5-7.5) 06/30/19 23:10 Ur Specific [place] 1.017 (1.000-1.030) 06/30/19 23:10 Urine Protein Negative (Negative) 06/30/19 23:10 Urine Glucose (UA) Negative (Negative) 06/30/19 23:10 Urine Ketones Negative (Negative) 06/30/19 23:10 Urine Blood Negative (Negative) 06/30/19 23:10 Urine Nitrite Negative (Negative) 06/30/19 23:10 Urine Bilirubin Negative (Negative) 06/30/19 23:10 Urine Urobilinogen Negative (Negative) 06/30/19 23:10 Ur Leukocyte Esterase Negative (Negative) 06/30/19 23:10 Blood Type A Positive 07/01/19 00:02 Antibody Screen NEGATIVE 07/01/19 00:02 Diagnostic Findings MRI head initial read: No evidence of acute infarct or intracranial hemorrhage. Periventricular and scattered white matter hyperintensities, nonspecific but most commonly related to chronic small vessel ischemic disease. Global cerebral volume loss. No abnormal enhancements or evidence of metastatic disease. Lens placements. 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 Chest x-ray as per my interpretation : density right mid chest (present on prior CXR), elevated right hemidiaphragm EKG as per my interpretation : Rate 85, NSR, normal axis, incomplete right bundle branch block, T wave flattening lateral leads, T wave inversion anteroseptal leads
[2019-07-01] MEDS ORDERED: LACTATED RINGER'S 1,000 ML IV ONE (06:14)
[2019-07-01] MEDS ORDERED: NITROGLYCERIN SL 0.4 MG/TAB TAB SL PRN (06:14)
[2019-07-01] MEDS ORDERED: ALBUT/IPRATROP 3MG/0.5MG NEB 3 ML VIAL NEB PRN (06:14)
[2019-07-01] MEDS ORDERED: HEPARIN SOD 5,000 UNIT/0.5 ML VIAL SQ SCH (06:30)
[2019-07-01 06:58] LABS: Base Excess ABG 2.9 mEq/L (-9-1.8); HCO3 ABG 28 mmol/L (19-24); Oxygen Saturation ABG 90.9 % (90-95); PCO2 ABG 44 mmHg (35-46); PO2 ABG 68 mm/Hg (80-95); pH ABG 7.42 (7.35-7.45)
[2019-07-01 07:04] LABS: Allen Test Pos (Pos)
--- NOTE | 2019-07-01 07:13 | CT Scan Report ---
HEAD CT NONCONTRAST CT DOSE: 537.48 mGy.cm HISTORY: Stroke symptoms. TECHNIQUE: Multiaxial CT images of the head were performed without the use of intravenous contrast. A utomated exposure control was utilized for this study. A dose lowering technique was utilized adheri ng to the principles of ALARA. Comparison: Head CT 06/12/2019. Findings: The paranasal sinuses and mastoid air cells are clear. The calvarium and skull base are int act. There is no mass, hematoma, midline shift, acute infarct. White matter hypodensity is nonspecifi c but suggestive of microvascular ischemic change. The ventricles and sulci demonstrate mild age-rela destinee involutional changes. Impression: No significant change compared to the prior study. No acute intracranial abnormality. Electronically signed by: Johnnie Simental M.D. 07/01/2019 7:11 AM
--- NOTE | 2019-07-01 07:18 | Magnetic Resonance Report ---
MRI OF THE BRAIN WITHOUT AND WITH IV CONTRAST CLINICAL HISTORY: Unresponsive. Evaluate for stroke. COMPARISON STUDY: Head CT June 30, 2019. TECHNIQUE: Utilizing a 1.5 Alecia magnet and dedicated coil, multiplanar, multiecho imaging of the br ain was performed pre and postcontrast administration. IV administration of 5.7 mL of Gadavist contr ast was uneventful. FINDINGS: There are no foci of restricted diffusion to suggest acute infarct. No acute intracranial h emorrhage, midline shift or mass effect is present. Mild ventricular dilatation is due to atrophy. Th e basilar cisterns are patent. There are no extra-axial collections. No intracranial mass or patholog ic enhancement is identified. White matter T2 hyperintense foci are noted. These suggest small vessel disease. T1 marrow signal within visualized skeletal structures is diminished. Orbits are unremarkab le. There is no significant sinus disease. Mastoid air cells are clear. IMPRESSION: 1. No acute intracranial findings. 2. No intracranial mass or pathologic enhancement. 3. Mild atrophy. Moderate small vessel disease. 4. Diminished T1 marrow signal within the skeletal structures. This is a nonspecific finding which ra ises the possibility of a marrow replacement/marrow proliferative process. Electronically signed by: Constantin Richter M.D. 07/01/2019 7:16 AM
--- NOTE | 2019-07-01 07:19 | Magnetic Resonance Report ---
Brain MRA HISTORY: Unresponsive. eval for stroke TECHNIQUE: 3-D [id number] MRA of the brain was performed without contrast. COMPARISON STUDY: Head CT 06/30/2019. FINDINGS: Visualized intracranial internal carotid arteries, distal vertebral arteries, and basilar a rtery are widely patent. There is no significant stenosis, occlusion, or aneurysm seen within the bibi ateral ACAs, MCAs, or program services assistant. There is a 7 mm saccular aneurysm extending laterally from the ophthalmic segment of the right internal carotid artery. IMPRESSION: 1. 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 2. No significant stenosis or occlusion within the [place]. Electronically signed by: Johnnie Simental M.D. 07/01/2019 7:18 AM
--- NOTE | 2019-07-01 07:28 | XRay Report ---
XR chest 1V portable HISTORY: septic work up COMPARISON: Chest 06/13/2019. FINDINGS: No pneumothorax. No pleural effusions. The heart is normal in size. Mild diffuse interstiti al thickening, unchanged. This is likely chronic. Calcified left hilar lymph nodes. Surgical clips wi thin the right axilla. Hazy appearance to the right mid to lower lung zones likely due to the overlap ping chest wall soft tissues. No definite new focal lung consolidations to suggest pneumonia. Chronic deformity within the left humeral head. IMPRESSION: Chronic changes as described above. No new focal lung consolidations to suggest pneumonia. Electronically signed by: Johnnie Simental M.D. 07/01/2019 7:27 AM
[2019-07-01 07:40] LABS: Hematocrit (blood only) 22.5 % (37-47); Hemoglobin 7.1 g/dL (12.0-16.0)
[2019-07-01] MEDS ORDERED: MAGNESIUM SULFATE / D5W 1 GM/100 ML BAG IV ONE (09:30)
[2019-07-01 12:53] LABS: Amphetamines+Metham, Urine Neg (Neg); Barbiturates, Urine Neg (Neg); Benzodiazepine, Urine Pos (Neg); Cocaine, Urine Neg (Neg); MDMA (Ecstacy), Urine Neg (Neg); Methadone, Urine Neg (Neg); Opiate, Urine Pos (Neg); Phencyclidine, Urine Neg (Neg)
[2019-07-01] MEDS: ENOXAPARIN INJ 30 MG/0.3 ML SYR SQ SCH (13:01)
[2019-07-01] MEDS: HYDROXYUREA 500 MG CAP PO SCH (13:01)
[2019-07-01] MEDS: PANTOprazole 40 MG TAB PO SCH ×2 (13:01→20:51)
--- NOTE | 2019-07-01 14:14 | Neurology Consultation ---
Date of Consultation July 01, 2019 Assessment & Plan (1) Unresponsiveness: 1. narcan given in ED - reported improvement 2. MRI brain- no acute findings 3. MRA head- 7 mm ANR should have follow up with neurosurgery as outpatient 4. polypharmacy likely effect on patient both with MS and appetite, weakness, issues 5. primary team for medical management 6. no currently on antiplt or anti coag may consider aspirin 81 mg if no contra indication 7. if no other source is found likely multifactorial with hypoxia, and polypharmacy. 8. EEG- r/o seizure focus- ordered Supervising Physician Co-Signing Physician Notes I have seen and discussed above patient with Dr Tuan Vegas, neurology I have interviewed and examined this patient and have discussed the above recommendations with Leidy Lees PA-C and have reviewed imaging studies which showed nothing acute, only some mild leukoencephalopathic changes, and an incidental 7 mm aneurysm which is something we can follow on an outpatient basis This patient is currently a resident of [facility] and was unresponsive yesterday, was sent to the emergency room and responded to Narcan suggestive particularly in the absence of any imaging abnormalities or other explanations that this was medication induced yet she insists that the medications have not changed and is somewhat resistant to having a dose is reduced. Currently she is awake alert oriented has a nonfocal examination and I am again suspicious that this was all accumulation of medications but we are going to go ahead with an EEG just to be certain there is nothing to suggest that it nonconv ulsive status epilepticus picture or something it might have explained the protracted unresponsiveness on the basis of a primary neurologic issue We will check back tomorrow see how she is doing but at this point I certainly would support reducing the medications particularly narcotics as much as possible Tuan Veags MD History of Present Illness Reason for Consultation: stroke like symptoms. Requesting Physician: Carl Jackson MD Attending Physician: Carl Jackson MD History of Present Illness Abbie is a 78 year old female with PMH- COPD, past tobacco abuse, MDS, essential thrombocytopenia on Hydrea therapy, myelodysplastic syndrome on Anagrrelide rx, history of MRSA, chronic anemia (baseline hgb 8-9), GERD, history of PUD, depression, anxiety, history of right breast cancer s/p mastectomy with chemoradiation therapy who presented with AMS. She states she does not remember what happened. She was admitted to [facility] 2 weeks ago for respiratory failure, sepsis secondary to H CAP. discharged to home later transitioned to [facility] for rehab. Her son states she was not doing well since rehab stay; not eating well, not participating with rehab therapy he thought she was depressed. She then was found to be increasingly lethargic, subsequently aphasic with decreased movement, questionable right-sided facial droop, right arm weakness. She was brought back to the hospital for evaluation. She states she does not remember coming to the hospital and still feels somewhat weak. denies CP, SOB, abdominal pain, one sided weakness, numbness tingling N, V, vision changes, swallowing issues, slurred speech. falls. According to ED notes mentation improved with narcan. Allergies Allergy/AdvReac Type Severity Reaction Status Date / Time latex Allergy Intermediate HIVES Verified 07/01/19 00:03 nickel Allergy Intermediate Hives/Itchi Verified 07/01/19 00:03 ness Iodinated Contrast Media AdvReac Mild Diarrhea Verified 07/01/19 00:03 [Iodinated Contrast- Oral and IV Dye] Lobster Allergy Severe HIVES Uncoded 07/01/19 00:03 Home Medications Home Medications Medication Instructions Recorded Confirmed Type anagrelide 1 mg PO DAILY 06/06/18 06/30/19 History hydroxyurea [Hydrea] 500 mg PO DAILY 06/06/18 06/30/19 History pantoprazole [Protonix] 40 mg PO BID 06/06/18 06/30/19 History pregabalin [Lyrica] 75 mg PO BID 06/06/18 06/30/19 History temazepam [Restoril] 30 mg PO HS 06/06/18 06/30/19 History trazodone 50 mg PO HS 06/06/18 06/30/19 History acetaminophen [Tylenol Extra 500 mg PO Q6H PRN 01/30/19 07/01/19 History Strength] Breo Ellipta 1 inh INHALATION DAILY 06/12/19 06/30/19 History amitriptyline 100 mg PO HS 06/12/19 06/30/19 History loperamide 2 mg PO UD PRN #20 cap 06/19/19 06/30/19 Rx acetaminophen 650 mg PO Q6H PRN MDD 3GM/24HR 06/30/19 07/01/19 History oxycodone 10 mg PO Q12 06/30/19 06/30/19 History Lactobacillus acidoph-L.bulgar 4 tab PO QID 07/01/19 07/01/19 History [Floranex] Patient History Medical History Pelvic fracture CKD (chronic kidney disease), stage III (Chronic) IBS (irritable bowel syndrome) (Chronic) Diarrhea predominant ; follows with GI Myelodysplastic syndrome (Chronic) H/O: hysterectomy (Chronic) S/P ORIF (open reduction internal fixation) fracture (Chronic) History of peptic ulcer disease (Chronic) History of breast cancer (Chronic) Anemia (Chronic) History of MRSA infection (Chronic) "left hip wound" COPD (chronic obstructive pulmonary disease) (Chronic) Essential thrombocythemia (Chronic) Leukocytosis (Chronic) Fracture of radial neck, left, closed (Resolved) 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) COPD exacerbation (Resolved) Thrombocytosis (Chronic) Myelodysplastic syndrome (Chronic) Surgical History H/O mastectomy (Chronic) right side History of cholecystectomy (Chronic) Status post hysterectomy (Chronic) Status post cholecystectomy (Chronic) Status post mastectomy (Chronic) "modified right mastectomy 1990" Status post total hip replacement, left (Chronic) Family History Other Unknown family medical history Social History Preferred Language: [place] Communication Ability: Effective Director Of Cloud Services Required: No Beliefs That Will Affect Care: None marital status: / Current Living Situation: [facility] Other Information That Helps Us Care for You: No Feels Safe at Home: Yes Safety Concerns: Feels Safe At This Time Smoking Status: Current every day smoker Tobacco Type: e-cigarettes ; Do You Dip or Chew Tobacco: No ; Second Hand Exposure: No ; Tobacco Cessation Education Requested by Patient: No Hx Alcohol Use: No Hx Substance Use: No Physical Exam Physical Exam: Physical Exam: Constitutional: appearance thin pale ill appearing Ears, Nose, Mouth and Throat: mucous membranes moist, no injection and skin normal, eyes normal Cardiovascular: normal S-1 and S-2 and regular rate and rhythm Respiratory: course breath sound Musculoskeletal: no peripheral edema Skin: no stigmata of neurocutaneous disease noted and normal and intact Eyes: extraocular muscles intact (EOMI) and pupils equal, round and reactive to light (PERRL) NEUROLOGIC EXAMINATION: Mental status: Alert and interactive Oriented to president [facility], [facility] Oriented to person Speech fluent with no evidence of aphasia Cranial Nerves smile eye brow raise symmetric Reflexes: Deep tendon reflexes were symmetrical and brisk Sensory: no sensory deficits to light or cool touch Coordination: finger to nose no bi pass Gait/Stance: Posture sitting up in bed eating Motor: Negative for pronator drift of out stretched arms with eyes closed. 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, left 5/5, hip flex 3/5 bilaterally plantar flex ext 4+/5 Results & Data Vital Signs (Past 12 Hours) Vital Signs Temp Pulse Pulse Resp BP BP Pulse Ox 07/01/19 12:45 36.6 C 76 16 122/63 07/01/19 11:40 36.8 C 74 16 116/67 98 07/01/19 11:19 79 07/01/19 11:10 36.6 C 78 18 120/78 99 07/01/19 10:40 36.6 C 79 16 126/79 98 07/01/19 10:25 36.6 C 74 18 122/79 98 07/01/19 10:07 36.4 C L 73 16 115/54 L 97 07/01/19 07:32 36.5 C 84 16 108/69 96 07/01/19 06:00 36.3 C L 86 16 115/75 94 07/01/19 05:52 85 07/01/19 05:15 91 H 15 135/68 97 07/01/19 05:01 94 H 15 95 07/01/19 05:00 92 H 13 140/69 96 07/01/19 04:46 91 H 17 100 07/01/19 04:45 94 H 14 140/73 100 07/01/19 04:35 97 H 18 96 07/01/19 04:30 97 H 17 147/70 H 99 07/01/19 04:15 93 H 17 142/59 H 100 07/01/19 04:00 94 H 16 140/73 99 07/01/19 03:47 98 H 21 138/67 98 07/01/19 03:30 78 11 L 102/59 L 98 07/01/19 03:15 79 12 93/55 L 96 07/01/19 03:00 81 9 L 91/56 L 98 07/01/19 02:45 80 14 93/55 L 98 07/01/19 02:30 80 15 106/56 L 99 07/01/19 02:15 82 16 118/62 99 Pulse Ox 07/01/19 12:45 07/01/19 11:40 07/01/19 11:19 07/01/19 11:10 07/01/19 10:40 07/01/19 10:25 07/01/19 10:07 07/01/19 07:32 07/01/19 06:00 94 07/01/19 05:52 07/01/19 05:15 07/01/19 05:01 07/01/19 05:00 07/01/19 04:46 07/01/19 04:45 07/01/19 04:35 07/01/19 04:30 07/01/19 04:15 07/01/19 04:00 07/01/19 03:47 07/01/19 03:30 07/01/19 03:15 07/01/19 03:00 07/01/19 02:45 07/01/19 02:30 07/01/19 02:15 Laboratory Results Abnormal lab results 06/30/19 07/01/19 07/01/19 Range/Units 23:10 00:02 00:02 RBC 2.33 L (4.2-5.4) M/uL Hgb 7.3 L (12.0-16.0) g/dL Hct 23.7 L (37-47) % MCV 101.7 H (80-100) fL MCHC 30.8 L (32-36) g/dL MPV 12.8 H (7.4-10.4) fL Immature Gran # (Auto) 0.03 H (0.00-0.02) K/uL Jack # (Auto) 0.66 H (0.11-0.59) K/uL ABG pO2 (80-95) mm/Hg ABG HCO3 (19-24) mmol/L ABG Base Excess (-9-1.8) mEq/L Chloride 108 H (98-107) mmol/L BUN/Creatinine Ratio 20.3 H (10-20) Calcium 8.2 L (8.5-10.1) mg/dl Magnesium 1.6 L (1.8-2.4) mg/dl AST 13 L (15-37) U/L Total Protein 5.6 L (6.4-8.2) gm/dl Albumin 2.7 L (3.4-5.0) gm/dl Urine Opiates Screen Pos H (Neg) U Benzodiazepines Scrn Pos H (Neg) Crossmatch 07/01/19 07/01/19 07/01/19 Range/Units 00:02 06:42 06:42 RBC (4.2-5.4) M/uL Hgb 7.1 L (12.0-16.0) g/dL Hct 22.5 L (37-47) % MCV (80-100) fL MCHC (32-36) g/dL MPV (7.4-10.4) fL Immature Gran # (Auto) (0.00-0.02) K/uL Jack # (Auto) (0.11-0.59) K/uL ABG pO2 68 L (80-95) mm/Hg ABG HCO3 28 H (19-24) mmol/L ABG Base Excess 2.9 H (-9-1.8) mEq/L Chloride (98-107) mmol/L BUN/Creatinine Ratio (10-20) Calcium (8.5-10.1) mg/dl Magnesium (1.8-2.4) mg/dl AST (15-37) U/L Total Protein (6.4-8.2) gm/dl Albumin (3.4-5.0) gm/dl Urine Opiates Screen (Neg) U Benzodiazepines Scrn (Neg) Crossmatch See Detail Diagnostic Findings CT head- No significant change compared to the prior study. No acute intracranial abnormality. MRA head-A 7 mm aneurysm at the ophthalmic segment of the right internal carotid artery. No significant stenosis or occlusion within the [place]. MRI brain- No acute intracranial findings. No intracranial mass or pathologic enhancement. Mild atrophy. Moderate small vessel disease. Diminished T1 marrow signal within the skeletal structures. This is a nonspecific finding which raises the possibility of a marrow replacement/marrow proliferative process.
--- NOTE | 2019-07-01 17:17 | Hospitalist Progress Note ---
Date of Service July 01, 2019 Assessment & Plan (1) Unresponsiveness: Metabolic Encephalopathy Likely secondary to home medications (Narcotics, benzo, neuropsychotropic agents) Significant improvement of mental status after Narcan administration. --MRI brain: No acute intracranial findings. No intracranial mass or pathologic enhancement. Mild atrophy. Moderate small vessel disease. Diminished T1 marrow signal within the skeletal structures. This is a nonspecific finding which raises the possibility of a marrow replacement/marrow proliferative process. --MRA:A 7 mm aneurysm at the ophthalmic segment of the right internal carotid artery. No significant stenosis or occlusion within the [place]. --EEG pending --Minimize Narcotic/Benzo use as able --Continue Neuro checks --Appreciate Neurology Input Right internal carotid artery aneurysm Incidental finding on imaging Needs follow-up with vascular surgery as outpatient COPD Past tobacco abuse No signs of exacerbation Denies any shortness of breath, worsening cough Continue home inhalers Supplemental oxygen as needed Hypomagnesemia Replace electrolytes as needed H/O Breast cancer S/P surgery, chemoradiation Continue home medications Thrombocythemia H/O Myelodysplastic syndrome On Hydrea, Anagrelide Rx Acute on chronic anemia Hb dropped from baseline No bleeding issues S/P 1 unit PRBCs Transfuse PRBCs as needed Mood/anxiety disorder Resume home medications at reduced dose as able DVT prophylaxis Lovenox SQ CODE STATUS Conditional code Disposition PT OT prior to discharge Subjective Patient is seen and examined at bedside States she is unaware of the events that occurred prior to admission Offers no complaints today Denies any chest pain, shortness of breath, dizziness, nausea, abdominal pain Reluctant to be decreased on narcotics during prior admission Consult about importance of decreasing narcotic use Review of Systems Review of Systems: All systems reviewed & are unremarkable except as noted in HPI & below Physical Exam Physical Exam: Physical Exam: Vitals signs as noted above General Appearance:Moderately built and nourished, no apparent distress Head: normocephalic, Atraumatic Eyes: normal inspection, EOMI Neck: supple, Trachea midline Respiratory/Chest: Decreased breath sounds, CTA, +R breast Implant Cardiovascular: S1, S2, No murmur Abdomen/GI:Soft, Non tender, Bowel sounds present Extremities/Musculoskelatal:normal inspection, no edema, Chronic LE wound Neurologic/Psych:AAOX3, grossly no focal neurological deficits Skin: normal color, warm Results & Data Vital Signs (Past 12 Hours) Vital Signs Temp Pulse Pulse Resp BP BP Pulse Ox 07/01/19 14:54 36.8 C 91 H 19 105/56 L 91 07/01/19 12:45 36.6 C 76 16 122/63 07/01/19 11:40 36.8 C 74 16 116/67 98 07/01/19 11:19 79 07/01/19 11:10 36.6 C 78 18 120/78 99 07/01/19 10:40 36.6 C 79 16 126/79 98 07/01/19 10:25 36.6 C 74 18 122/79 98 07/01/19 10:07 36.4 C L 73 16 115/54 L 97 07/01/19 07:32 36.5 C 84 16 108/69 96 07/01/19 06:00 36.3 C L 86 16 115/75 94 07/01/19 05:52 85 07/01/19 05:15 91 H 15 135/68 97 Pulse Ox 07/01/19 14:54 07/01/19 12:45 07/01/19 11:40 07/01/19 11:19 07/01/19 11:10 07/01/19 10:40 07/01/19 10:25 07/01/19 10:07 07/01/19 07:32 07/01/19 06:00 94 07/01/19 05:52 07/01/19 05:15 Laboratory Results Short CBC 07/01/19 07/01/19 Range/Units 00:02 06:42 WBC 7.96 (4.8-10.8) K/uL Hgb 7.3 L 7.1 L (12.0-16.0) g/dL Hct 23.7 L 22.5 L (37-47) % Plt Count 340 (130-400) K/uL BMP 07/01/19 00:02 Sodium 142 Potassium 4.1 Chloride 108 H Carbon Dioxide 30 BUN 16 Creatinine 0.79 Glucose 98 Calcium 8.2 L Cardiac Enzymes 07/01/19 Range/Units 00:02 Troponin I < 0.015 (0-0.045) ng/ml Liver Function 07/01/19 Range/Units 00:02 Total Bilirubin 0.6 (0.2-1) mg/dl AST 13 L (15-37) U/L ALT 12 (12-78) U/L Alkaline Phosphatase 76 (45-117) U/L Albumin 2.7 L (3.4-5.0) gm/dl Urine 06/30/19 Range/Units 23:10 Urine Color Yellow Urine Appearance Clear (Clear) Urine pH 5.5 (4.5-7.5) Ur Specific [place] 1.017 (1.000-1.030) Urine Protein Negative (Negative) Urine Glucose (UA) Negative (Negative)
--- NOTE | 2019-07-01 19:12 | Emergency Department Note ---
Entered by Radha Cruz acting as a scribe for History of Present Illness General Chief complaint: Stroke/CVA Symptoms Stated complaint: CVA Time Seen by Provider: 06/30/19 23:24 Source: patient History of Present Illness Onset (ago): hour(s) (4.5) Location: head Pain Consistency: + other (episode) Quality: + other (stroke symptoms) Associated symptoms: + weakness (positive right-arm weakness) and + other (positive lethargic; positive decreased movements; positive aphasic; positive right-sided facial droop) The patient is a 78 year old female who presents to the Emergency Room with complaints of an episode of stroke symptoms that began at 1900, 4.5 hours prior to arrival. Per EMS, the patient was found to be lethargic with decreased movem ents at 1900 and this was her last time known well. EMS states that the patient was then found to be aphasic at 2100, 2.5 hours prior to arrival. Per EMS, upon their arrival at approximately 2230, 1 hour prior to arrival in the ED, the patient was significantly aphasic, right-sided facial droop, and right arm weakness. EMS states that the patient was seen in the ED several days ago for sepsis. Home Medications Home Medications Medication Instructions Recorded Confirmed Type anagrelide 1 mg PO DAILY 06/06/18 06/30/19 History hydroxyurea [Hydrea] 500 mg PO DAILY 06/06/18 06/30/19 History pantoprazole [Protonix] 40 mg PO BID 06/06/18 06/30/19 History pregabalin [Lyrica] 75 mg PO BID 06/06/18 06/30/19 History temazepam [Restoril] 30 mg PO HS 06/06/18 06/30/19 History trazodone 50 mg PO HS 06/06/18 06/30/19 History acetaminophen [Tylenol Extra 500 mg PO Q6H PRN 01/30/19 07/01/19 History Strength] Breo Ellipta 1 inh INHALATION DAILY 06/12/19 06/30/19 History amitriptyline 100 mg PO HS 06/12/19 06/30/19 History loperamide 2 mg PO UD PRN #20 cap 06/19/19 06/30/19 Rx acetaminophen 650 mg PO Q6H PRN MDD 3GM/24HR 06/30/19 07/01/19 History oxycodone 10 mg PO Q12 06/30/19 06/30/19 History Lactobacillus acidoph-L.bulgar 4 tab PO QID 07/01/19 07/01/19 History [Floranex] Allergies Allergy/AdvReac Type Severity Reaction Status Date / Time latex Allergy Intermediate HIVES Verified 07/01/19 00:03 nickel Allergy Intermediate Hives/Itchi Verified 07/01/19 00:03 ness Iodinated Contrast Media AdvReac Mild Diarrhea Verified 07/01/19 00:03 [Iodinated Contrast- Oral and IV Dye] Lobster Allergy Severe HIVES Uncoded 07/01/19 00:03 Past Med/Surg History Medical History Pelvic fracture CKD (chronic kidney disease), stage III (Chronic) IBS (irritable bowel syndrome) (Chronic) Diarrhea predominant ; follows with GI Myelodysplastic syndrome (Chronic) H/O: hysterectomy (Chronic) S/P ORIF (open reduction internal fixation) fracture (Chronic) History of peptic ulcer disease (Chronic) History of breast cancer (Chronic) Anemia (Chronic) History of MRSA infection (Chronic) "left hip wound" COPD (chronic obstructive pulmonary disease) (Chronic) Essential thrombocythemia (Chronic) Leukocytosis (Chronic) Fracture of radial neck, left, closed (Resolved) 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) COPD exacerbation (Resolved) Thrombocytosis (Chronic) Myelodysplastic syndrome (Chronic) Surgical History H/O mastectomy (Chronic) right side History of cholecystectomy (Chronic) Status post hysterectomy (Chronic) Status post cholecystectomy (Chronic) Status post mastectomy (Chronic) "modified right mastectomy 1990" Status post total hip replacement, left (Chronic) Family History Other Unknown family medical history Social History Preferred Language: Honduran Communication Ability: Effective 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 and A total of 10 systems reviewed and were otherwise negative Physical Exam Vital Signs Vital Signs - 24 hr 07/01/19 22:21 07/01/19 23:25 07/02/19 03:49 Temperature 36.8 C 36.7 C Temperature Source Oral Oral Pulse Rate 82 Pulse Rate [Left Finger] 86 80 Pulse Rhythm [Left Finger] Pulse Strength [Left Finger] Respiratory Rate 20 19 Respiratory Effort / Characteristics Respiratory Depth Respiratory Pattern Blood Pressure [Left Arm] 134/72 141/67 H Blood Pressure Mean [Left Arm] 92 91 Blood Pressure Position [Left Arm] Lying Lying Pulse Oximetry 95 97 Oxygen Delivery Method Nasal Cannula Nasal Cannula Oxygen Flow Rate 2 2 07/02/19 07:03 07/02/19 07:36 07/02/19 08:30 Temperature 36.7 C Temperature Source Oral Pulse Rate 73 Pulse Rate [Left Finger] 73 Pulse Rhythm [Left Finger] Pulse Strength [Left Finger] Respiratory Rate 18 Respiratory Effort / Characteristics Non-Labored Respiratory Depth Normal Respiratory Pattern Regular Blood Pressure [Left Arm] 133/71 Blood Pressure Mean [Left Arm] 91 Blood Pressure Position [Left Arm] Lying Pulse Oximetry 97 Oxygen Delivery Method Nasal Cannula Nasal Cannula Oxygen Flow Rate 2 2 07/02/19 11:00 07/02/19 15:35 07/02/19 16:00 Temperature 36.9 C 36.5 C Temperature Source Oral Oral Pulse Rate Pulse Rate [Left Finger] 78 100 H Pulse Rhythm [Left Finger] Regular Pulse Strength [Left Finger] Normal Respiratory Rate 20 18 Respiratory Effort / Characteristics Non-Labored Respiratory Depth Normal Normal Respiratory Pattern Blood Pressure [Left Arm] 123/78 148/83 H Blood Pressure Mean [Left Arm] 93 104 Blood Pressure Position [Left Arm] Lying Lying Pulse Oximetry 91 96 Oxygen Delivery Method Nasal Cannula Room Air Room Air Oxygen Flow Rate 2 General: The patient is unresponsive to painful and verbal stimuli. HEENT: Head - normocephalic and atraumatic. Obvious right-sided facial droop. Pupils are 3mm and reactive to light, and are equal and round. Extraocular eye muscles are intact, and sclera are anicteric. Nose - moist nasal mucosa without discharge. Mouth - moist buccal mucosa. Oropharynx is nonerythematous and there is no tonsillar exudate or edema noted. Neck: Supple; no JVD, nuchal rigidity, cervical lymphadenopathy, or auscultated bruits. Heart: Regular rate and rhythm. There is a normal S1 and S2 with no murmurs, clicks, or gallops appreciated. Lungs: Clear to auscultation bilaterally with no wheezes, rales, or rhonchi. Abdomen: Slightly distended. Soft, completely nontender, with good bowel sounds. There are no palpable pulsatile masses or hepatosplenomegaly. There is no guarding, rigidity, or rebound noted. Extremities: No evidence of cyanosis, clubbing, or edema. There are easily palpable peripheral pulses. Neuro: The patient would not follow commands, would not respond to painful or verbal stimuli. Obvious right-sided facial droop. Did not seem to be moving right arm. Skin: warm and dry with good turgor and no rashes. Course 2338: Past medical records reviewed. The patient was evaluated in room B1. A complete history and physical exam was performed. 2340: I discussed the case with Dr. Macias Stroke Neurology who recommends obtaining an MRI. 2352: I talked to the patient's son who states that he was with the patient earlier today. The patient's son states that the patient was very soft-spoken today which is not normal for her. He states that the patient was not herself today. The patient's son states that the patient was more confused than at her baseline. 0024: The tech reports that a Sanchez catheter was placed and after this the patient began to have more movement. 0237: I discussed the patient's normal MRI with [facility]. 0238: I updated Dr. Macias Stroke Neurology on the patient's MRI. 0256: I updated the patient's son on all results. The patient is still unresponsive. 0300: I had another conversation with the patient's son. We will consent him for a possible blood transfusion. The nurses are going to heme test the patient's stool. 0302: I discussed the case with Dr. De Santiago Hospitalist who accepts the patient for further evaluation. 0328: Ordered Sodium Chloride 500 mls @ 999 mls/hr IV. Dr. Marques ordered Narcan administration to the patient. Nursing staff states that the patient seemed to be a little more alert after the administration of this medication. I went to the bedside to evaluate the patient and talk to the son again and I found the patient to be still unresponsive. She would raise her eyebrows at times to her son's voice. Administered Medications Acetaminophen (Tylenol) 650 mg PO Q4H PRN PRN Reason: Pain or Fever Stop: 07/31/19 06:13 Last Admin: 07/02/19 16:45 Dose: 650 mg Documented by: [id number] Enoxaparin Sodium (Lovenox) 30 mg SQ QAM SHORTY Stop: 07/31/19 08:59 Last Admin: 07/02/19 08:05 Dose: 30 mg Documented by: [id number] Admin: 07/01/19 13:01 Dose: 30 mg Documented by: [id number] Hydroxyurea (Hydrea) 500 mg PO DAILY [facility] Stop: 07/31/19 08:59 Last Admin: 07/02/19 08:05 Dose: 500 mg Documented by: [id number] Cosigned by: [id number] Admin: 07/01/19 13:01 Dose: 500 mg Documented by: [id number] Cosigned by: [id number] Prochlorperazine 5 mg/ Syringe 5 mls @ 5 mls/min IV Q6H PRN PRN Reason: Nausea And Vomiting Stop: 07/31/19 06:13 Last Admin: 07/02/19 16:45 Dose: 5 mls/min Documented by: [id number] Miscellaneous (Order Awaiting Action) 1 ea N/A QS SHORTY Stop: 07/31/19 07:59 Last Admin: 07/02/19 15:58 Dose: Not Given Documented by: [id number] Admin: 07/02/19 08:05 Dose: Not Given Documented by: [id number] Admin: 07/01/19 23:58 Dose: Not Given Documented by: [id number] Admin: 07/01/19 17:32 Dose: Not Given Documented by: [id number] Admin: 07/01/19 13:02 Dose: Not Given Documented by: [id number] Miscellaneous (Order Awaiting Action) 1 ea N/A QS SHORTY Stop: 07/31/19 07:59 Last Admin: 07/02/19 15:58 Dose: Not Given Documented by: [id number] Admin: 07/02/19 08:05 Dose: Not Given Documented by: [id number] Admin: 07/02/19 01:03 Dose: Not Given Documented by: [id number] Admin: 07/01/19 17:32 Dose: Not Given Documented by: [id number] Admin: 07/01/19 13:02 Dose: Not Given Documented by: [id number] Pantoprazole Sodium (Protonix) 40 mg PO BID SHORTY Stop: 07/31/19 08:59 Last Admin: 07/02/19 08:05 Dose: 40 mg Documented by: [id number] Admin: 07/01/19 20:51 Dose: 40 mg Documented by: [id number] Admin: 07/01/19 13:01 Dose: 40 mg Documented by: [id number] Discontinued Medications Albuterol (Duoneb) 3 ml NEB NOW STA Stop: 07/01/19 04:01 Last Admin: 07/01/19 04:34 Dose: 3 ml Documented by: [id number] Gadobutrol (Gadavist 30ml) 5.7 ml IV ONCE PRN PRN Reason: Interaction Checking Stop: 07/05/19 02:01 Last Admin: 07/01/19 01:40 Dose: 5.7 ml Documented by: [id number] Heparin Sodium (Porcine) (Heparin Sodium (Porcine)) 5,000 units SQ Q8 SHORTY Stop: 07/31/19 06:29 Last Admin: 07/01/19 19:22 Dose: Not Given Documented by: [id number] Sodium Chloride (Nss) 500 mls @ 125 mls/hr IV .Q4H SHORTY Stop: 07/31/19 02:59 Last Infusion: 07/01/19 19:21 Dose: 0 mls/hr Documented by: [id number] Admin: 07/01/19 04:18 Dose: 125 mls/hr Documented by: [id number] Sodium Chloride (Nss) 500 mls @ 999 mls/hr IV .Q31M ONE Stop: 07/01/19 03:28 Last Infusion: 07/01/19 03:45 Dose: 0 mls/hr Documented by: [id number] Admin: 07/01/19 03:12 Dose: 999 mls/hr Documented by: [id number] Prochlorperazine (Compazine) 1 mls @ 2.5 mls/min IV ONE ONE Stop: 07/01/19 04:02 Last Admin: 07/01/19 04:17 Dose: 2.5 mls/min Documented by: [id number] Lactated Ringer's (Lr) 1,000 mls @ 60 mls/hr IV .[id number] ONE Stop: 07/01/19 22:53 Last Infusion: 07/02/19 02:52 Dose: 0 mls/hr Documented by: [id number] Admin: 07/01/19 06:56 Dose: 60 mls/hr Documented by: [id number] Magnesium Sulfate/Dextrose (Magnesium Sulfate / D5w) 1 gm in 100 mls @ 100 mls/hr IV ONE ONE Stop: 07/01/19 10:29 Last Infusion: 07/01/19 14:30 Dose: 0 mls/hr Documented by: [id number] Admin: 07/01/19 13:28 Dose: 100 mls/hr Documented by: [id number] Methylprednisolone (Solumedrol) 20 mg IV NOW STA Stop: 07/01/19 04:15 Last Admin: 07/01/19 04:41 Dose: 20 mg Documented by: [id number] Naloxone HCl (Narcan) 0.4 mg IV NOW STA Stop: 07/01/19 03:16 Last Admin: 07/01/19 03:41 Dose: 0.4 mg Documented by: [id number] Naloxone HCl (Narcan) 0.4 mg IV NOW STA Stop: 07/01/19 04:01 Last Admin: 07/01/19 04:17 Dose: 0.4 mg Documented by: [id number] Medical Decision Making Differential Diagnosis Differential diagnoses include stroke, intracranial hemorrhage, hypoglycemia, TIA, metabolic encephalopathy, medication side effect, and others were cons idered. Medical Records Attestation: I reviewed the patient's medical records. Home Medications Current Medication List: was personally reviewed by me Laboratory Data Attestation: I reviewed the patient's lab results. Result diagrams: 07/02/19 07:54 07/02/19 07:54 Lab Results 06/30/19 06/30/19 06/30/19 Range/Units 23:10 23:10 23:37 WBC (4.8-10.8) K/uL RBC (4.2-5.4) M/uL Hgb (12.0-16.0) g/dL Hct (37-47) % MCV (80-100) fL MCH (25-34) pg MCHC (32-36) g/dL RDW Std Deviation (36.4-46.3) fL RDW Coeff of Radha (11.5-14.5) % Plt Count (130-400) K/uL MPV (7.4-10.4) fL Immature Gran % (Auto) % Neut % (Auto) % Lymph % (Auto) % [place] % (Auto) % Eos % (Auto) % Baso % (Auto) % Immature Gran # (Auto) (0.00-0.02) K/uL Neut # (Auto) (1.4-6.5) K/uL Lymph # (Auto) (1.2-3.4) K/uL [place] # (Auto) (0.11-0.59) K/uL Eos # (Auto) (0-0.5) K/uL Baso # (Auto) (0-0.2) K/uL Giant Platelets Poikilocytosis Basophilic Stippling Anisocytosis Macrocytosis Tear Drop Cells PT (9.0-12.0) Seconds INR (0.9-1.1) APTT (21.0-31.0) Seconds PTT Ratio ABG pH (7.35-7.45) ABG pCO2 (35-46) mmHg ABG pO2 (80-95) mm/Hg ABG HCO3 (19-24) mmol/L ABG O2 Saturation (90-95) % ABG Base Excess (-9-1.8) mEq/L Mark Test (Pos) Barometric Pressure mm/Hg Oxygen Given Sodium (136-145) mmol/L Potassium (3.5-5.1) mmol/L Chloride (98-107) mmol/L Carbon Dioxide (21-32) mmol/L Anion Gap (3-11) BUN (7-18) mg/dl Creatinine (0.6-1.2) mg/dl Est Cr Clr Drug Dosing Est GFR ( Amer) Est GFR (Non-Af Amer) BUN/Creatinine Ratio (10-20) Glucose (70-99) mg/dl POC Glucose 70 (70-99) Lactate (0.4-2.0) mmol/L Calcium (8.5-10.1) mg/dl Magnesium (1.8-2.4) mg/dl Total Bilirubin (0.2-1) mg/dl AST (15-37) U/L ALT (12-78) U/L Alkaline Phosphatase (45-117) U/L Troponin I (0-0.045) ng/ml Total Protein (6.4-8.2) gm/dl Albumin (3.4-5.0) gm/dl Globulin (2.5-4.0) gm/dl Albumin/Globulin Ratio (0.9-2) Urine Color Yellow Urine Appearance Clear (Clear) Urine pH 5.5 (4.5-7.5) Ur Specific [place] 1.017 (1.000-1.030) Urine Protein Negative (Negative) Urine Glucose (UA) Negative (Negative) Urine Ketones Negative (Negative) Urine Blood Negative (Negative) Urine Nitrite Negative (Negative) Urine Bilirubin Negative (Negative) Urine Urobilinogen Negative (Negative) Ur Leukocyte Esterase Negative (Negative) Urine Opiates Screen Pos H (Neg) Ur Methadone, Qual Neg (Neg) Urine Barbiturates Neg (Neg) Ur Phencyclidine (PCP) Neg (Neg) U Amphetamin/Meth Scrn Neg (Neg) MDMA (Ecstasy) Screen Neg (Neg) U Benzodiazepines Scrn Pos H (Neg) Ur Cocaine Metabolite Neg (Neg) U Marijuana (THC) Screen Neg (Neg) Blood Type Antibody Screen Crossmatch 07/01/19 07/01/19 07/01/19 Range/Units 00:02 00:02 00:02 WBC 7.96 (4.8-10.8) K/uL RBC 2.33 L (4.2-5.4) M/uL Hgb 7.3 L (12.0-16.0) g/dL Hct 23.7 L (37-47) % MCV 101.7 H (80-100) fL MCH 31.3 (25-34) pg MCHC 30.8 L (32-36) g/dL RDW Std Deviation (36.4-46.3) fL RDW Coeff of Radha (11.5-14.5) % Plt Count 340 (130-400) K/uL MPV 12.8 H (7.4-10.4) fL Immature Gran % (Auto) 0.4 % Neut % (Auto) 66.1 % Lymph % (Auto) 19.8 % [place] % (Auto) 8.3 % Eos % (Auto) 4.8 % Baso % (Auto) 0.6 % Immature Gran # (Auto) 0.03 H (0.00-0.02) K/uL Neut # (Auto) 5.26 (1.4-6.5) K/uL Lymph # (Auto) 1.58 (1.2-3.4) K/uL [place] # (Auto) 0.66 H (0.11-0.59) K/uL Eos # (Auto) 0.38 (0-0.5) K/uL Baso # (Auto) 0.05 (0-0.2) K/uL Giant Platelets 3+ Poikilocytosis Basophilic Stippling Occasional Anisocytosis Present Macrocytosis Present Tear Drop Cells 1+ PT 11.4 (9.0-12.0) Seconds INR 1.1 (0.9-1.1) APTT 26.2 (21.0-31.0) Seconds PTT Ratio 1.0 ABG pH (7.35-7.45) ABG pCO2 (35-46) mmHg ABG pO2 (80-95) mm/Hg ABG HCO3 (19-24) mmol/L ABG O2 Saturation (90-95) % ABG Base Excess (-9-1.8) mEq/L Mark Test (Pos) Barometric Pressure mm/Hg Oxygen Given Sodium 142 (136-145) mmol/L Potassium 4.1 (3.5-5.1) mmol/L Chloride 108 H (98-107) mmol/L Carbon Dioxide 30 (21-32) mmol/L Anion Gap 4.0 (3-11) BUN 16 (7-18) mg/dl Creatinine 0.79 (0.6-1.2) mg/dl Est Cr Clr Drug Dosing Not Reportable Est GFR ( Amer) 84.3 Est GFR (Non-Af Amer) 72.7 BUN/Creatinine Ratio 20.3 H (10-20) Glucose 98 (70-99) mg/dl POC Glucose (70-99) Lactate (0.4-2.0) mmol/L Calcium 8.2 L (8.5-10.1) mg/dl Magnesium 1.6 L (1.8-2.4) mg/dl Total Bilirubin 0.6 (0.2-1) mg/dl AST 13 L (15-37) U/L ALT 12 (12-78) U/L Alkaline Phosphatase 76 (45-117) U/L Troponin I < 0.015 (0-0.045) ng/ml Total Protein 5.6 L (6.4-8.2) gm/dl Albumin 2.7 L (3.4-5.0) gm/dl Globulin 2.9 (2.5-4.0) gm/dl Albumin/Globulin Ratio 0.9 (0.9-2) Urine Color Urine Appearance (Clear) Urine pH (4.5-7.5) Ur Specific [place] (1.000-1.030) Urine Protein (Negative) Urine Glucose (UA) (Negative) Urine Ketones (Negative) Urine Blood (Negative) Urine Nitrite (Negative) Urine Bilirubin (Negative) Urine Urobilinogen (Negative) Ur Leukocyte Esterase (Negative) Urine Opiates Screen (Neg) Ur Methadone, Qual (Neg) Urine Barbiturates (Neg) Ur Phencyclidine (PCP) (Neg) U Amphetamin/Meth Scrn (Neg) MDMA (Ecstasy) Screen (Neg) U Benzodiazepines Scrn (Neg) Ur Cocaine Metabolite (Neg) U Marijuana (THC) Screen (Neg) Blood Type Antibody Screen Crossmatch 07/01/19 07/01/19 07/01/19 Range/Units 00:02 00:02 06:42 WBC (4.8-10.8) K/uL RBC (4.2-5.4) M/uL Hgb 7.1 L (12.0-16.0) g/dL Hct 22.5 L (37-47) % MCV (80-100) fL MCH (25-34) pg MCHC (32-36) g/dL RDW Std Deviation (36.4-46.3) fL RDW Coeff of Radha (11.5-14.5) % Plt Count (130-400) K/uL MPV (7.4-10.4) fL Immature Gran % (Auto) % Neut % (Auto) % Lymph % (Auto) % [place] % (Auto) % Eos % (Auto) % Baso % (Auto) % Immature Gran # (Auto) (0.00-0.02) K/uL Neut # (Auto) (1.4-6.5) K/uL Lymph # (Auto) (1.2-3.4) K/uL [place] # (Auto) (0.11-0.59) K/uL Eos # (Auto) (0-0.5) K/uL Baso # (Auto) (0-0.2) K/uL Giant Platelets Poikilocytosis Basophilic Stippling Anisocytosis Macrocytosis Tear Drop Cells PT (9.0-12.0) Seconds INR (0.9-1.1) APTT (21.0-31.0) Seconds PTT Ratio ABG pH (7.35-7.45) ABG pCO2 (35-46) mmHg ABG pO2 (80-95) mm/Hg ABG HCO3 (19-24) mmol/L ABG O2 Saturation (90-95) % ABG Base Excess (-9-1.8) mEq/L Mark Test (Pos) Barometric Pressure mm/Hg Oxygen Given Sodium (136-145) mmol/L Potassium (3.5-5.1) mmol/L Chloride (98-107) mmol/L Carbon Dioxide (21-32) mmol/L Anion Gap (3-11) BUN (7-18) mg/dl Creatinine (0.6-1.2) mg/dl Est Cr Clr Drug Dosing Est GFR ( Amer) Est GFR (Non-Af Amer) BUN/Creatinine Ratio (10-20) Glucose (70-99) mg/dl POC Glucose (70-99) Lactate 0.5 (0.4-2.0) mmol/L Calcium (8.5-10.1) mg/dl Magnesium (1.8-2.4) mg/dl Total Bilirubin (0.2-1) mg/dl AST (15-37) U/L ALT (12-78) U/L Alkaline Phosphatase (45-117) U/L Troponin I (0-0.045) ng/ml Total Protein (6.4-8.2) gm/dl Albumin (3.4-5.0) gm/dl Globulin (2.5-4.0) gm/dl Albumin/Globulin Ratio (0.9-2) Urine Color Urine Appearance (Clear) Urine pH (4.5-7.5) Ur Specific [place] (1.000-1.030) Urine Protein (Negative) Urine Glucose (UA) (Negative) Urine Ketones (Negative) Urine Blood (Negative) Urine Nitrite (Negative) Urine Bilirubin (Negative) Urine Urobilinogen (Negative) Ur Leukocyte Esterase (Negative) Urine Opiates Screen (Neg) Ur Methadone, Qual (Neg) Urine Barbiturates (Neg) Ur Phencyclidine (PCP) (Neg) U Amphetamin/Meth Scrn (Neg) MDMA (Ecstasy) Screen (Neg) U Benzodiazepines Scrn (Neg) Ur Cocaine Metabolite (Neg) U Marijuana (THC) Screen (Neg) Blood Type A Positive Antibody Screen NEGATIVE Crossmatch See Detail 07/01/19 07/01/19 07/02/19 Range/Units 06:42 19:48 07:54 WBC 6.73 (4.8-10.8) K/uL RBC 2.69 L (4.2-5.4) M/uL Hgb 8.3 L 8.2 L (12.0-16.0) g/dL Hct 26.1 L 25.9 L (37-47) % MCV 96.3 D (80-100) fL MCH 30.5 (25-34) pg MCHC 31.7 L (32-36) g/dL RDW Std Deviation 102.2 H (36.4-46.3) fL RDW Coeff of Radha 31.3 H (11.5-14.5) % Plt Count 299 (130-400) K/uL MPV (7.4-10.4) fL Immature Gran % (Auto) 0.1 % Neut % (Auto) 57.8 % Lymph % (Auto) 29.9 % [place] % (Auto) 6.4 % Eos % (Auto) 4.8 % Baso % (Auto) 1.0 % Immature Gran # (Auto) 0.01 (0.00-0.02) K/uL Neut # (Auto) 3.89 (1.4-6.5) K/uL Lymph # (Auto) 2.01 (1.2-3.4) K/uL [place] # (Auto) 0.43 (0.11-0.59) K/uL Eos # (Auto) 0.32 (0-0.5) K/uL Baso # (Auto) 0.07 (0-0.2) K/uL Giant Platelets 1+ Poikilocytosis Present Basophilic Stippling Anisocytosis Present Macrocytosis Tear Drop Cells 1+ PT (9.0-12.0) Seconds INR (0.9-1.1) APTT (21.0-31.0) Seconds PTT Ratio ABG pH 7.42 (7.35-7.45) ABG pCO2 44 (35-46) mmHg ABG pO2 68 L (80-95) mm/Hg ABG HCO3 28 H (19-24) mmol/L ABG O2 Saturation 90.9 (90-95) % ABG Base Excess 2.9 H (-9-1.8) mEq/L Mark Test Pos (Pos) Barometric Pressure 735.0 mm/Hg Oxygen Given 2 L Sodium (136-145) mmol/L Potassium (3.5-5.1) mmol/L Chloride (98-107) mmol/L Carbon Dioxide (21-32) mmol/L Anion Gap (3-11) BUN (7-18) mg/dl Creatinine (0.6-1.2) mg/dl Est Cr Clr Drug Dosing Est GFR ( Amer) Est GFR (Non-Af Amer) BUN/Creatinine Ratio (10-20) Glucose (70-99) mg/dl POC Glucose (70-99) Lactate (0.4-2.0) mmol/L Calcium (8.5-10.1) mg/dl Magnesium (1.8-2.4) mg/dl Total Bilirubin (0.2-1) mg/dl AST (15-37) U/L ALT (12-78) U/L Alkaline Phosphatase (45-117) U/L Troponin I (0-0.045) ng/ml Total Protein (6.4-8.2) gm/dl Albumin (3.4-5.0) gm/dl Globulin (2.5-4.0) gm/dl Albumin/Globulin Ratio (0.9-2) Urine Color Urine Appearance (Clear) Urine pH (4.5-7.5) Ur Specific [place] (1.000-1.030) Urine Protein (Negative) Urine Glucose (UA) (Negative) Urine Ketones (Negative) Urine Blood (Negative) Urine Nitrite (Negative) Urine Bilirubin (Negative) Urine Urobilinogen (Negative) Ur Leukocyte Esterase (Negative) Urine Opiates Screen (Neg) Ur Methadone, Qual (Neg) Urine Barbiturates (Neg) Ur Phencyclidine (PCP) (Neg) U Amphetamin/Meth Scrn (Neg) MDMA (Ecstasy) Screen (Neg) U Benzodiazepines Scrn (Neg) Ur Cocaine Metabolite (Neg) U Marijuana (THC) Screen (Neg) Blood Type Antibody Screen Crossmatch 07/02/19 Range/Units 07:54 WBC (4.8-10.8) K/uL RBC (4.2-5.4) M/uL Hgb (12.0-16.0) g/dL Hct (37-47) % MCV (80-100) fL MCH (25-34) pg MCHC (32-36) g/dL RDW Std Deviation (36.4-46.3) fL RDW Coeff of Radha (11.5-14.5) % Plt Count (130-400) K/uL MPV (7.4-10.4) fL Immature Gran % (Auto) % Neut % (Auto) % Lymph % (Auto) % [place] % (Auto) % Eos % (Auto) % Baso % (Auto) % Immature Gran # (Auto) (0.00-0.02) K/uL Neut # (Auto) (1.4-6.5) K/uL Lymph # (Auto) (1.2-3.4) K/uL [place] # (Auto) (0.11-0.59) K/uL Eos # (Auto) (0-0.5) K/uL Baso # (Auto) (0-0.2) K/uL Giant Platelets Poikilocytosis Basophilic Stippling Anisocytosis Macrocytosis Tear Drop Cells PT (9.0-12.0) Seconds INR (0.9-1.1) APTT (21.0-31.0) Seconds PTT Ratio ABG pH (7.35-7.45) ABG pCO2 (35-46) mmHg ABG pO2 (80-95) mm/Hg ABG HCO3 (19-24) mmol/L ABG O2 Saturation (90-95) % ABG Base Excess (-9-1.8) mEq/L Mark Test (Pos) Barometric Pressure mm/Hg Oxygen Given Sodium 142 (136-145) mmol/L Potassium 3.8 (3.5-5.1) mmol/L Chloride 108 H (98-107) mmol/L Carbon Dioxide 28 (21-32) mmol/L Anion Gap 6.0 (3-11) BUN 12 (7-18) mg/dl Creatinine 0.68 (0.6-1.2) mg/dl Est Cr Clr Drug Dosing 60.8 Est GFR ( Amer) 98.5 Est GFR (Non-Af Amer) 85.0 BUN/Creatinine Ratio 18.3 (10-20) Glucose 85 (70-99) mg/dl POC Glucose (70-99) Lactate (0.4-2.0) mmol/L Calcium 7.9 L (8.5-10.1) mg/dl Magnesium 1.9 (1.8-2.4) mg/dl Total Bilirubin (0.2-1) mg/dl AST (15-37) U/L ALT (12-78) U/L Alkaline Phosphatase (45-117) U/L Troponin I (0-0.045) ng/ml Total Protein (6.4-8.2) gm/dl Albumin (3.4-5.0) gm/dl Globulin (2.5-4.0) gm/dl Albumin/Globulin Ratio (0.9-2) Urine Color Urine Appearance (Clear) Urine pH (4.5-7.5) Ur Specific [place] (1.000-1.030) Urine Protein (Negative) Urine Glucose (UA) (Negative) Urine Ketones (Negative) Urine Blood (Negative) Urine Nitrite (Negative) Urine Bilirubin (Negative) Urine Urobilinogen (Negative) Ur Leukocyte Esterase (Negative) Urine Opiates Screen (Neg) Ur Methadone, Qual (Neg) Urine Barbiturates (Neg) Ur Phencyclidine (PCP) (Neg) U Amphetamin/Meth Scrn (Neg) MDMA (Ecstasy) Screen (Neg) U Benzodiazepines Scrn (Neg) Ur Cocaine Metabolite (Neg) U Marijuana (THC) Screen (Neg) Blood Type Antibody Screen Crossmatch Imaging Data Attestation: I personally reviewed and interpreted this imaging study as follows: My Impression: CHEST X-RAY 1 VIEW: Density in right chest thought to be secondary to breast implant. No obvious pulmonary infiltrate. Radiologist's Impression: Radiology results as stated below per my review and the radiologist's interpretation: CT HEAD: No acute intracranial hemorrhage, mass effect, midline shift, hydrocephalus or acute infarct. Low density in the bilateral periventricular white matter is nonspecific but probably represents chronic small vessel ischemic disease. Bony structures are intact. Soft tissues are unremarkable. Radiologist: Dmitry Ronquillo MD Study ready at 23:33 and initial results transmitted at 23:37 MRI HEAD: No evidence of acute infarct or intracranial hemorrhage. Periventricular and scattered T2/FLAIR white matter hyperintensities, nonspecific but most commonly related to chronic small vessel ischemic changes. Global cerebral volume loss. No abnormal enhancement or evidence of metastatic disease. Lens replacements. 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 No evidence of vessel occlusion. Radiologist: Medhat Thakkar MD Study ready at 02:20 and initial results transmitted at 02:35 Critical Value Communications Clear Time Type Notes 07/01/19 02:37 Call Doctor Regarding Stroke, called Dr. Diallo on 07/01 02:36 (-04:00) ECG Data Attestation: I personally reviewed and interpreted this ECG as follows: Indication: other (unresponsiveness) Rate (beats per minute): 85 Rhythm: normal sinus Findings: + T-wave inversion (anterior leads); no ST depression, no acute ischemic change and no ectopy Comparison ECG Date: from (06/14/19) Change: no significant change (TWI in anterior leads is old) Blood Pressure Blood Pressure Findings: Normal blood pressure MDM Narrative The patient is a 78 year old female who presents to the Emergency Room with complaints of an episode of stroke symptoms that began at 1900, 4.5 hours prior to arrival. The patient was last known well at 7 PM. Patient became less responsive than a phasic then appeared to have right-sided facial droop. The patient was a stroke alert here in the emergency department. CT scan of the brain was negative. I could not get the patient to follow any commands. When the patient's son was speaking with her, it appeared that she would attempt to open her eyes. He agreed that the right side of her face appeared to be drooped. The case was discussed with the neurologist at [facility] and she will go for an MRI/MRA of the brain. Upon returning from MRI, the patient was no more responsive. She was noted to be anemic. She was typed and crossed for 1 unit of packed red blood cells. [facility] for further management. Impression & Plan Unresponsiveness, Anemia, Renal insufficiency Critical Care Time Critical Care Time: Yes Total Critical Care Time: 60 I have personally spent 65 minutes of critical care time in the direct management of this patient. This includes bedside care, interpretation of diagnostic studies, and testing, discussion with consultants, patient, and family members, and other required patient management activities. This 65 minutes is in excess of all separately billable procedures. Discharge Plan Visit Data *Final* Discharge Date/Time: 07/01/19 05:25 Chief Complaint: Stroke/CVA Symptoms Stated Complaint: CVA ED Provider: Marisol Diallo Discharge Problem: Unresponsiveness, Anemia, Renal insufficiency Patient Disposition: Admitted As Inpatient Discharge Instructions Interventions: ED Discharge Assessment Last Done: 07/01/19 05:25 Discharge Problem: Anemia Qualifiers: Anemia type: unspecified type Qualified Code(s): D64.9 - Anemia, unspecified The scribe's documentation has been prepared under my direction and personally reviewed by me in its entirety. I confirm that the note above accurately reflects all work, treatment, procedures, and medical decision making performed by me.
[2019-07-01 19:55] LABS: Hematocrit (blood only) 26.1 % (37-47); Hemoglobin 8.3 g/dL (12.0-16.0)
[2019-07-02 08:01] LABS: Basophils # (auto) 0.07 K/uL (0-0.2); Eosinophils # (auto) 0.32 K/uL (0-0.5); Eosinophils % (auto) 4.8 %; Hematocrit (blood only) 25.9 % (37-47); Hemoglobin 8.2 g/dL (12.0-16.0); Immature Granulocytes # (auto) 0.01 K/uL (0.00-0.02); Immature Granulocytes % (auto) 0.1 %; Lymphocytes # (auto) 2.01 K/uL (1.2-3.4); Lymphocytes % (auto) 29.9 %; Mean Corpuscular Hemoglobin 30.5 pg (25-34); Mean Corpuscular Hgb Conc 31.7 g/dL (32-36); Mean Corpuscular Volume 96.3 fL (80-100); Monocytes # (auto) 0.43 K/uL (0.11-0.59); Monocytes % (auto) 6.4 %; Neutrophils # (auto) 3.89 K/uL (1.4-6.5); Neutrophils % (auto) 57.8 %; Platelet Count 299 K/uL (130-400); RDW Coefficient of Variation 31.3 % (11.5-14.5); RDW Standard Deviation 102.2 fL (36.4-46.3); Red Blood Count 2.69 M/uL (4.2-5.4); White Blood Count 6.73 K/uL (4.8-10.8)
[2019-07-02] MEDS: HYDROXYUREA 500 MG CAP PO SCH (08:05)
[2019-07-02] MEDS: ENOXAPARIN INJ 30 MG/0.3 ML SYR SQ SCH (08:05)
[2019-07-02] MEDS: PANTOprazole 40 MG TAB PO SCH ×2 (08:05→20:18)
[2019-07-02 08:23] LABS: Anisocytosis Present; Giant Platelets 1+; Poikilocytosis Present; Tear Drop Cells 1+
[2019-07-02 08:29] LABS: BUN Creatinine Ratio 18.3 (10-20); Calcium 7.9 mg/dl (8.5-10.1); Creatinine Clr Calc Pharmacy 60.8 ml/min; Est GFR (African American) 98.5; Magnesium 1.9 mg/dl (1.8-2.4); Potassium 3.8 mmol/L (3.5-5.1)
--- NOTE | 2019-07-02 14:48 | Neurology Progress Note ---
Date of Service July 02, 2019 Assessment & Plan (1) Unresponsiveness: 1. narcan given in ED - reported improvement 2. MRI brain- no acute findings 3. MRA head- 7 mm ANR should have follow up with neurosurgery as outpatient 4. polypharmacy likely effect on patient both with MS and appetite, weakness, issues 5. primary team for medical management 6. no currently on antiplt or anti coag may consider aspirin 81 mg if no contra indication 7. if no other source is found likely multifactorial with hypoxia, and polypharmacy. 8. EEG- no seizure focus will sign off for now will be available for questions concerns. Supervising Physician Co-Signing Physician Notes I have seen and discussed above patient with Dr Tuan Vegas, neurology I have seen Mrs. Rand today reviewed her EEG which is normal and discussed her case with Leidy Lees PA-C and agree with the above assessment and plans Currently her major complaint is diarrhea which may well reflect the prior antibiotic exposure but she has had no further events of unresponsiveness and the EEG shows nothing that would be compatible with a nonconvulsive status epilepticus picture or indeed any abnormalities at all and imaging studies have not shown any significant structural lesions At this point I continue to be suspicious that this was medication related particularly in light of the fact that she responded to Narcan and wonder if her compliance with her medications while at home prior to her last admission was not a little erratic and that following discharge on a more regular scheduled dose of her drugs that she did not accumulate a lot of toxicity to the point that she was unarousable All this is conjectural but at present we do not have an adequate explanation for her unresponsiveness other than to blame the medications and neurology at this point is simply going to sign off and be willing to see her as needed should there be recurrent events of a similar type Tuan Vegas MD Klaus Leiva is a 78 year old female with PMH- COPD, past tobacco abuse, MDS, essential thrombocytopenia on Hydrea therapy, myelodysplastic syndrome on Anagrrelide rx, history of MRSA, chronic anemia (baseline hgb 8-9), GERD, history of PUD, depression, anxiety, history of right breast cancer s/p mastectomy with chemoradiation therapy who presented with AMS. She states she does not remember what happened. She was admitted to [facility] 2 weeks ago for respiratory failure, sepsis secondary to H CAP. discharged to home later transitioned to [facility] for rehab. Her son states she was not doing well since rehab stay; not eating well, not participating with rehab therapy he thought she was depressed. She then was found to be increasingly lethargic, subsequently aphasic with decreased movement, questionable right-sided facial droop, right arm weakness. She was brought back to the hospital for evaluation. She states she does not remember coming to the hospital and still feels somewhat weak. today she is complaining of diarrhea which she states she deals with all the time. no further confusion episodes. denies CP, SOB, abdominal pain, one sided weakness, numbness tingling N, V, vision changes, swallowing issues, slurred speech. falls. According to ED notes mentation improved with narcan. 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 no pronator drift oriented to [facility], President Ann, 2019 Results & Data Vital Signs (Past 12 Hours) Vital Signs Temp Pulse Pulse Resp BP Pulse Ox 07/02/19 11:00 36.9 C 78 20 123/78 91 07/02/19 07:36 73 07/02/19 07:03 36.7 C 73 18 133/71 97 07/02/19 03:49 36.7 C 80 19 141/67 H 97 Laboratory Results Abnormal lab results 07/01/19 07/02/19 07/02/19 Range/Units 19:48 07:54 07:54 RBC 2.69 L (4.2-5.4) M/uL Hgb 8.3 L 8.2 L (12.0-16.0) g/dL Hct 26.1 L 25.9 L (37-47) % MCHC 31.7 L (32-36) g/dL RDW Std Deviation 102.2 H (36.4-46.3) fL RDW Coeff of Radha 31.3 H (11.5-14.5) % Chloride 108 H (98-107) mmol/L Calcium 7.9 L (8.5-10.1) mg/dl Diagnostic Findings EEG-This EEG is normal and fails to reveal evidence for the presence of nonconvulsive status epilepticus, or indeed any other focal or generalized abnormalities or potentially epileptogenic activity
--- NOTE | 2019-07-02 15:16 | Electroencephalogram ---
EEG Procedure Note Date of Service July 02, 2019 Start / End Times Start Time: 933 End Time: 953 Referring Physician Tuan Vegas MD History Protracted unresponsiveness of uncertain causation question nonconvulsive seizure Home Medication List Home Medications Medication Instructions Recorded Confirmed Type anagrelide 1 mg PO DAILY 06/06/18 06/30/19 History hydroxyurea [Hydrea] 500 mg PO DAILY 06/06/18 06/30/19 History pantoprazole [Protonix] 40 mg PO BID 06/06/18 06/30/19 History pregabalin [Lyrica] 75 mg PO BID 06/06/18 06/30/19 History temazepam [Restoril] 30 mg PO HS 06/06/18 06/30/19 History trazodone 50 mg PO HS 06/06/18 06/30/19 History acetaminophen [Tylenol Extra 500 mg PO Q6H PRN 01/30/19 07/01/19 History Strength] Breo Ellipta 1 inh INHALATION DAILY 06/12/19 06/30/19 History amitriptyline 100 mg PO HS 06/12/19 06/30/19 History loperamide 2 mg PO UD PRN #20 cap 06/19/19 06/30/19 Rx acetaminophen 650 mg PO Q6H PRN MDD 3GM/24HR 06/30/19 07/01/19 History oxycodone 10 mg PO Q12 06/30/19 06/30/19 History Lactobacillus acidoph-L.bulgar 4 tab PO QID 07/01/19 07/01/19 History [Floranex] Inpatient Medication List Enoxaparin Sodium (Lovenox) 30 mg SQ QAM SHORTY Stop: 07/31/19 08:59 Last Admin: 07/02/19 08:05 Dose: 30 mg Documented by: [id number] Admin: 07/01/19 13:01 Dose: 30 mg Documented by: [id number] Hydroxyurea (Hydrea) 500 mg PO DAILY SHORTY Stop: 07/31/19 08:59 Last Admin: 07/02/19 08:05 Dose: 500 mg Documented by: [id number] Cosigned by: [id number] Admin: 07/01/19 13:01 Dose: 500 mg Documented by: [id number] Cosigned by: [id number] Miscellaneous (Order Awaiting Action) 1 ea N/A QS SHORTY Stop: 07/31/19 07:59 Last Admin: 07/02/19 08:05 Dose: Not Given Documented by: [id number] Admin: 07/01/19 23:58 Dose: Not Given Documented by: [id number] Admin: 07/01/19 17:32 Dose: Not Given Documented by: [id number] Admin: 07/01/19 13:02 Dose: Not Given Documented by: [id number] Miscellaneous (Order Awaiting Action) 1 ea N/A QS SHORTY Stop: 07/31/19 07:59 Last Admin: 07/02/19 08:05 Dose: Not Given Documented by: [id number] Admin: 07/02/19 01:03 Dose: Not Given Documented by: [id number] Admin: 07/01/19 17:32 Dose: Not Given Documented by: [id number] Admin: 07/01/19 13:02 Dose: Not Given Documented by: [id number] Pantoprazole Sodium (Protonix) 40 mg PO BID SHORTY Stop: 07/31/19 08:59 Last Admin: 07/02/19 08:05 Dose: 40 mg Documented by: [id number] Admin: 07/01/19 20:51 Dose: 40 mg Documented by: [id number] Admin: 07/01/19 13:01 Dose: 40 mg Documented by: [id number] Discontinued Medications Albuterol (Duoneb) 3 ml NEB NOW STA Stop: 07/01/19 04:01 Last Admin: 07/01/19 04:34 Dose: 3 ml Documented by: [id number] Gadobutrol (Gadavist 30ml) 5.7 ml IV ONCE PRN PRN Reason: Interaction Checking Stop: 07/05/19 02:01 Last Admin: 07/01/19 01:40 Dose: 5.7 ml Documented by: [id number] Heparin Sodium (Porcine) (Heparin Sodium (Porcine)) 5,000 units SQ Q8 SHORTY Stop: 07/31/19 06:29 Last Admin: 07/01/19 19:22 Dose: Not Given Documented by: [id number] Sodium Chloride (Nss) 500 mls @ 125 mls/hr IV .Q4H SHORTY Stop: 07/31/19 02:59 Last Infusion: 07/01/19 19:21 Dose: 0 mls/hr Documented by: [id number] Admin: 07/01/19 04:18 Dose: 125 mls/hr Documented by: [id number] Sodium Chloride (Nss) 500 mls @ 999 mls/hr IV .Q31M ONE Stop: 07/01/19 03:28 Last Infusion: 07/01/19 03:45 Dose: 0 mls/hr Documented by: [id number] Admin: 07/01/19 03:12 Dose: 999 mls/hr Documented by: [id number] Prochlorperazine (Compazine) 1 mls @ 2.5 mls/min IV ONE ONE Stop: 07/01/19 04:02 Last Admin: 07/01/19 04:17 Dose: 2.5 mls/min Documented by: [id number] Lactated Ringer's (Lr) 1,000 mls @ 60 mls/hr IV .[id number] ONE Stop: 07/01/19 22:53 Last Infusion: 07/02/19 02:52 Dose: 0 mls/hr Documented by: [id number] Admin: 07/01/19 06:56 Dose: 60 mls/hr Documented by: [id number] Magnesium Sulfate/Dextrose (Magnesium Sulfate / D5w) 1 gm in 100 mls @ 100 mls/hr IV ONE ONE Stop: 07/01/19 10:29 Last Infusion: 07/01/19 14:30 Dose: 0 mls/hr Documented by: [id number] Admin: 07/01/19 13:28 Dose: 100 mls/hr Documented by: [id number] Methylprednisolone (Solumedrol) 20 mg IV NOW STA Stop: 07/01/19 04:15 Last Admin: 07/01/19 04:41 Dose: 20 mg Documented by: [id number] Naloxone HCl (Narcan) 0.4 mg IV NOW STA Stop: 07/01/19 03:16 Last Admin: 07/01/19 03:41 Dose: 0.4 mg Documented by: [id number] Naloxone HCl (Narcan) 0.4 mg IV NOW STA Stop: 07/01/19 04:01 Last Admin: 07/01/19 04:17 Dose: 0.4 mg Documented by: [id number] Description This is a 21 electrode EEG with a single channel dedicated to limited EKG. The electrodes were placed in accordance with the International 10-20 system. This EEG was done as a bedside recording and is of excellent technical quality with few or no muscle movement artifacts. Video analysis of patient movement and behavior was obtained. Photic stimulation was performed. There is evidence during wakefulness of a symmetrical posterior head region maximal background rhythm in the alpha range of up to 10 Hz maximum frequency and 30 V maximum amplitude. Central, symmetrical, modest voltage, moderate amplitude, theta activity seen. Beta activity seen bifrontally Photic stimulation provokes a modest driving response without a photo myogenic a photoparoxysmal component At no time during the waking tracing is evidence for potentially epileptogenic activity Interpretation This is a normal EEG without evidence for focal generalized encephalopathy without evidence for potentially epileptogenic activity Clinical Correlation This EEG is normal and fails to reveal evidence for the presence of nonconvulsive status epilepticus, or indeed any other focal or generalized abnormalities or potentially epileptogenic activity Tuan Vegas MD
[2019-07-02] MEDS: PROCHLORPERAZINE 5 MG in SYRINGE 4 ML IV PRN ×2 (16:45→23:15)
[2019-07-02] MEDS: ACETAMINOPHEN 325 MG TAB PO PRN ×2 (16:45→21:51)
--- NOTE | 2019-07-02 17:16 | Hospitalist Progress Note ---
Date of Service July 02, 2019 Assessment & Plan (1) Unresponsiveness: Metabolic Encephalopathy Likely secondary to home medications (Narcotics, benzo, neuropsychotropic agents) Significant improvement of mental status after Narcan administration. --MRI brain: No acute intracranial findings. No intracranial mass or pathologic enhancement. Mild atrophy. Moderate small vessel disease. Diminished T1 marrow signal within the skeletal structures. This is a nonspecific finding which raises the possibility of a marrow replacement/marrow proliferative process. --MRA:A 7 mm aneurysm at the ophthalmic segment of the right internal carotid artery. No significant stenosis or occlusion within the [place]. --EEG: This is a normal EEG without evidence for focal generalized encephalopathy without evidence for potentially epileptogenic activity --Minimize Narcotic/Benzo use as able --Continue Neuro checks --Appreciate Neurology Input --Mental status back to baseline Right internal carotid artery aneurysm Incidental finding on imaging Needs follow-up with Neurovascular surgery as outpatient COPD Past tobacco abuse No signs of exacerbation Denies any shortness of breath, worsening cough Continue home inhalers Supplemental oxygen as needed Hypomagnesemia Replace electrolytes as needed H/O Breast cancer S/P surgery, chemoradiation Continue home medications Minimize narcotic use as able Thrombocythemia H/O Myelodysplastic syndrome On Hydrea, Anagrelide Rx Platelets within normal limits Acute on chronic anemia Hb dropped from baseline No bleeding issues S/P 1 unit PRBCs Transfuse PRBCs as needed Hb:8.2 Mood/anxiety disorder Restarted amitriptyline and decreased her dose to 25 mg Qhs Insomnia Restarted trazodone at decreased dose of 25 mg QHs Peripheral neuropathy Restarted Lyrica and decrease dose to 25 mg BID DVT Px: Lovenox SQ CODE STATUS Conditional code Disposition PT OT prior to discharge Subjective Patient is seen and examined at bedside States having headache this morning Reports diarrhea and poor sleep Denies any chest pain, shortness of breath, dizziness, nausea, abdominal pain Review of Systems Review of Systems: All systems reviewed & are unremarkable except as noted in HPI & below Physical Exam Physical Exam: Physical Exam: Vitals signs as noted above General Appearance:Moderately built and nourished, no apparent distress Head: normocephalic, Atraumatic Eyes: normal inspection, EOMI Neck: supple, Trachea midline Respiratory/Chest: Decreased breath sounds, CTA, +R breast Implant Cardiovascular: S1, S2, No murmur Abdomen/GI:Soft, Non tender, Bowel sounds present Extremities/Musculoskelatal:normal inspection, no edema, Chronic LE wound Neurologic/Psych:AAOX3, grossly no focal neurological deficits Skin: normal color, warm Results & Data Vital Signs (Past 12 Hours) Vital Signs Temp Pulse Pulse Resp BP Pulse Ox 07/02/19 15:35 36.5 C 100 H 18 148/83 H 96 07/02/19 11:00 36.9 C 78 20 123/78 91 07/02/19 07:36 73 07/02/19 07:03 36.7 C 73 18 133/71 97 Laboratory Results Short CBC 07/01/19 07/02/19 Range/Units 19:48 07:54 WBC 6.73 (4.8-10.8) K/uL Hgb 8.3 L 8.2 L (12.0-16.0) g/dL Hct 26.1 L 25.9 L (37-47) % Plt Count 299 (130-400) K/uL BMP 07/02/19 07:54 Sodium 142 Potassium 3.8 Chloride 108 H Carbon Dioxide 28 BUN 12 Creatinine 0.68 Glucose 85 Calcium 7.9 L
[2019-07-02] MEDS: AMITRIPTYLINE HCL 25 MG TAB PO SCH (20:18)
[2019-07-02] MEDS: PREGABALIN 25 MG CAP PO SCH (20:18)
[2019-07-02] MEDS: TRAZODONE HCL 50 MG TAB PO SCH (20:19)
[2019-07-03] MEDS: ACETAMINOPHEN 325 MG TAB PO PRN ×2 (01:57→08:24)
[2019-07-03] MEDS: TRAMADOL HCL 50 MG TABLET PO PRN ×4 (02:51→21:55)
[2019-07-03] MEDS: PANTOprazole 40 MG TAB PO SCH ×2 (08:20→20:37)
[2019-07-03] MEDS: HYDROXYUREA 500 MG CAP PO SCH (08:20)
[2019-07-03] MEDS: ENOXAPARIN INJ 30 MG/0.3 ML SYR SQ SCH (08:20)
[2019-07-03] MEDS: PREGABALIN 25 MG CAP PO SCH ×2 (08:24→20:36)
[2019-07-03 08:38] LABS: Hematocrit (blood only) 28.6 % (37-47); Hemoglobin 8.9 g/dL (12.0-16.0)
[2019-07-03] MEDS: PROCHLORPERAZINE 5 MG in SYRINGE 4 ML IV PRN ×2 (10:20→16:10)
[2019-07-03 13:13] LABS: 7-Aminoclonaz, Confirm NEGATIVE NG/ML (CUTOFF=25); Codeine Urine NEGATIVE NG/ML (CUTOFF=50); Hydro-Alp Ur, GC/MS NEGATIVE NG/ML (CUTOFF=25); Hydrocodone Urine NEGATIVE NG/ML (CUTOFF=50); Hydromor Urine NEGATIVE NG/ML (CUTOFF=50); Hydroxyethylflurazepam, Conf NEGATIVE NG/ML (CUTOFF=50); Hydroxytriazolam NEGATIVE NG/ML (CUTOFF=50); Lorazepam, Ur GC/MS NEGATIVE NG/ML (CUTOFF=50); Morphine Urine NEGATIVE NG/ML (CUTOFF=50); Nordiazepam, Confirm NEGATIVE NG/ML (CUTOFF=50); Norhydrocodone Conf Ur NEGATIVE NG/ML (CUTOFF=50); Noroxycodone Urine 1980 NG/ML (CUTOFF=50); Oxazepam Ur, GC/MS 1780 NG/ML (CUTOFF=50); Oxycodone Urine 629 NG/ML (CUTOFF=50); Oxymorph Urine 3250 NG/ML (CUTOFF=50); Temazepam, Confirm >2000 NG/ML (CUTOFF=50)
--- NOTE | 2019-07-03 17:33 | Hospitalist Progress Note ---
Date of Service July 03, 2019 Assessment & Plan (1) Unresponsiveness: Metabolic Encephalopathy Likely secondary to home medications (Narcotics, benzo, neuropsychotropic agents) Significant improvement of mental status after Narcan administration. --MRI brain: No acute intracranial findings. No intracranial mass or pathologic enhancement. Mild atrophy. Moderate small vessel disease. Diminished T1 marrow signal within the skeletal structures. This is a nonspecific finding which raises the possibility of a marrow replacement/marrow proliferative process. --MRA:A 7 mm aneurysm at the ophthalmic segment of the right internal carotid artery. No significant stenosis or occlusion within the [place]. --EEG: This is a normal EEG without evidence for focal generalized encephalopathy without evidence for potentially epileptogenic activity --Minimize Narcotic/Benzo use as able --Continue Neuro checks --Appreciate Neurology Input --Mental status back to baseline Right internal carotid artery aneurysm Incidental finding on imaging Needs follow-up with Neurovascular surgery as outpatient COPD Past tobacco abuse No signs of exacerbation Denies any shortness of breath, worsening cough Continue home inhalers Supplemental oxygen as needed Diarrhea: Check Stool for C diff given recent Abx use Hypomagnesemia Replace electrolytes as needed H/O Breast cancer S/P surgery, chemoradiation Continue home medications Minimize narcotic use as able Thrombocythemia H/O Myelodysplastic syndrome On Hydrea, Anagrelide Rx Platelets within normal limits Acute on chronic anemia Hb dropped from baseline No bleeding issues S/P 1 unit PRBCs Transfuse PRBCs as needed Hb:8.9 Mood/anxiety disorder Continue amitriptyline at decreased dose of 25 mg Qhs Insomnia Continue trazodone at decreased dose of 25 mg QHs Peripheral neuropathy Continue Lyrica at decrease dose to 25 mg BID DVT Px: Lovenox SQ CODE STATUS Conditional code Disposition Plan to discharge home with Home Health Subjective Patient is seen and examined at bedside States having diarrhea Also states having chronic pain Denies any chest pain, SOB, dizziness, nausea, abdominal pain Offers no other complaints Review of Systems Review of Systems: All systems reviewed & are unremarkable except as noted in HPI & below Physical Exam Physical Exam: Physical Exam: Vitals signs as noted above General Appearance:Moderately built and nourished, no apparent distress Head: normocephalic, Atraumatic Eyes: normal inspection, EOMI Neck: supple, Trachea midline Respiratory/Chest: Decreased breath sounds, CTA, +R breast Implant Cardiovascular: S1, S2, No murmur Abdomen/GI:Soft, Non tender, Bowel sounds present Extremities/Musculoskelatal:normal inspection, no edema, Chronic LE wound Neurologic/Psych:AAOX3, grossly no focal neurological deficits Skin: normal color, warm Results & Data Vital Signs (Past 12 Hours) Vital Signs Temp Pulse Pulse Resp BP Pulse Ox 07/03/19 15:15 36.6 C 79 16 148/72 H 99 07/03/19 11:26 36.5 C 95 H 18 114/71 99 07/03/19 07:41 77 07/03/19 07:24 36.4 C L 79 18 137/74 97 Laboratory Results Short CBC 07/03/19 Range/Units 08:29 Hgb 8.9 L (12.0-16.0) g/dL Hct 28.6 L (37-47) %
[2019-07-03] MEDS: AMITRIPTYLINE HCL 25 MG TAB PO SCH (20:36)
[2019-07-03] MEDS: TRAZODONE HCL 50 MG TAB PO SCH (20:36)
[2019-07-03] MEDS ORDERED: ONDANSETRON INJ 2 MG/ML 2 ML VIAL IV PRN (21:00)
[2019-07-03] MEDS: LACTOBACILLUS ACIDOPHILUS (FLORANEX) TAB PO SCH (21:55)
[2019-07-04] MEDS: ACETAMINOPHEN 325 MG TAB PO PRN ×3 (01:19→15:50)
[2019-07-04] MEDS: TRAMADOL HCL 50 MG TABLET PO PRN ×2 (02:10→16:28)
[2019-07-04 07:24] LABS: BUN Creatinine Ratio 14.2 (10-20); Calcium 8.2 mg/dl (8.5-10.1); Creatinine Clr Calc Pharmacy 52.8 ml/min; Est GFR (African American) 94.3; Est GFR (Non-African American) 81.3; Potassium 3.3 mmol/L (3.5-5.1)
[2019-07-04 07:25] LABS: Hematocrit (blood only) 26.5 % (37-47); Hemoglobin 8.3 g/dL (12.0-16.0); Mean Corpuscular Hemoglobin 29.5 pg (25-34); Mean Corpuscular Hgb Conc 31.3 g/dL (32-36); Mean Corpuscular Volume 94.3 fL (80-100); Platelet Count 359 K/uL (130-400); Platelet Estimate Normal (Normal); RDW Coefficient of Variation 30.1 % (11.5-14.5); RDW Standard Deviation 97.7 fL (36.4-46.3); Red Blood Count 2.81 M/uL (4.2-5.4); White Blood Count 8.68 K/uL (4.8-10.8)
[2019-07-04] MEDS: LACTOBACILLUS ACIDOPHILUS (FLORANEX) TAB PO SCH ×3 (08:32→16:29)
[2019-07-04] MEDS: PREGABALIN 25 MG CAP PO SCH (08:32)
[2019-07-04] MEDS: ENOXAPARIN INJ 30 MG/0.3 ML SYR SQ SCH (08:32)
[2019-07-04] MEDS: HYDROXYUREA 500 MG CAP PO SCH (08:32)
[2019-07-04] MEDS: PANTOprazole 40 MG TAB PO SCH (08:32)
[2019-07-04] MEDS ORDERED: POTASSIUM CHLORIDE 10 MEQ TABCR PO STA (08:45)
--- NOTE | 2019-07-04 12:37 | Hospitalist Progress Note ---
Date of Service July 04, 2019 Assessment & Plan (1) Unresponsiveness: Metabolic Encephalopathy Likely secondary to home medications (Narcotics, benzo, neuropsychotropic agents) Significant improvement of mental status after Narcan administration. --MRI brain: No acute intracranial findings. No intracranial mass or pathologic enhancement. Mild atrophy. Moderate small vessel disease. Diminished T1 marrow signal within the skeletal structures. This is a nonspecific finding which raises the possibility of a marrow replacement/marrow proliferative process. --MRA:A 7 mm aneurysm at the ophthalmic segment of the right internal carotid artery. No significant stenosis or occlusion within the [place]. --EEG: This is a normal EEG without evidence for focal generalized encephalopathy without evidence for potentially epileptogenic activity --Minimize Narcotic/Benzo use as able --Continue Neuro checks --Appreciate Neurology Input --Mental status back to baseline --Advised to avoid narcotic use Right internal carotid artery aneurysm Incidental finding on imaging Needs follow-up with Neurovascular surgery as outpatient COPD Past tobacco abuse No signs of exacerbation Denies any shortness of breath, worsening cough Continue home inhalers Supplemental oxygen as needed Diarrhea: Check Stool for C diff : negative Imodium PRN Hypokalemia Hypomagnesemia Replace electrolytes as needed H/O Breast cancer S/P surgery, chemoradiation Continue home medications Minimize narcotic use as able Thrombocythemia H/O Myelodysplastic syndrome On Hydrea, Anagrelide Rx Platelets within normal limits Acute on chronic anemia Hb dropped from baseline No bleeding issues S/P 1 unit PRBCs Transfuse PRBCs as needed Hb:8.3 Mood/anxiety disorder Continue amitriptyline at decreased dose of 25 mg Qhs Insomnia Continue trazodone at decreased dose of 25 mg QHs Peripheral neuropathy Continue Lyrica at decrease dose to 25 mg BID DVT Px: Lovenox SQ CODE STATUS Conditional code Disposition Plan to discharge home with Home Health Subjective Patient is seen and examined at bedside Doing well today Diarrhea resolved No new complaints Denies any chest pain, SOB, dizziness, nausea, abdominal pain Offers no other complaints Review of Systems Review of Systems: All systems reviewed & are unremarkable except as noted in HPI & below Physical Exam Physical Exam: Physical Exam: Vitals signs as noted above General Appearance:Moderately built and nourished, no apparent distress Head: normocephalic, Atraumatic Eyes: normal inspection, EOMI Neck: supple, Trachea midline Respiratory/Chest: Decreased breath sounds, CTA, +R breast Implant Cardiovascular: S1, S2, No murmur Abdomen/GI:Soft, Non tender, Bowel sounds present Extremities/Musculoskelatal:normal inspection, no edema, Chronic LE wound Neurologic/Psych:AAOX3, grossly no focal neurological deficits Skin: normal color, warm Results & Data Vital Signs (Past 12 Hours) Vital Signs Temp Pulse Pulse Resp BP Pulse Ox 07/04/19 11:13 36.5 C 76 18 132/69 97 07/04/19 07:00 36.4 C L 72 20 120/66 90 07/04/19 04:07 36.6 C 82 17 114/65 99 07/04/19 01:00 82 Laboratory Results Short CBC 07/04/19 Range/Units 06:08 WBC 8.68 (4.8-10.8) K/uL Hgb 8.3 L (12.0-16.0) g/dL Hct 26.5 L (37-47) % Plt Count 359 (130-400) K/uL BMP 07/04/19 06:08 Sodium 141 Potassium 3.3 L Chloride 107 Carbon Dioxide 29 BUN 10 Creatinine 0.72 Glucose 83 Calcium 8.2 L
--- NOTE | 2019-07-04 12:47 | Discharge Summary ---
Date of Service July 04, 2019 Admission HPI Per Admitting Provider History obtained from patient, family , and records. Limited history from patient secondary to obtunded state. Medical history is significant for COPD, past tobacco abuse, hx breast cancer, right, status post surgery, chemoradiation, thrombocythemia on Hydrea therapy, myelodysplastic syndrome on Anagrelide Rx, history of MRSA as per records, chronic anemia (baseline hemoglobin of 8-9), mood/anxiety disorder. Recent confinement 2 weeks ago for respiratory failure, sepsis secondary to H CAP. Patient discharged to home later transitioned to [facility] for rehab. As per son, patient not doing well since rehab stay. Not eating well. Not participating with rehab therapy. Patient son thinks patient might be depressed. Last night, patient found to be increasingly lethargic, subsequently aphasic with decreased movement, questionable right-sided facial droop, right arm weakness.. Stroke alert called upon arrival at the ER. Imaging negative for stroke on initial read. Increased responsiveness after IV Narcan administration at the ER. Medical History as above Surgical History : Cholecystectomy, mastectomy right, hysterectomy, hip surgery Family History : Hypertension Personal/social history past tobacco abuse, no EtOH intake, was living with her daughter prior to rehab stay Admission Exam Per Admitting Provider GENERAL: uncomfortable, lethargic, follows some commands, no respiratory distress, occasionally coughing/gagging SKIN: Pallor , warm HEENT: Pale palpebral conjunctivae, no ptosis, dry buccal mucosa, edentulous NECK : Supple, no tenderness CHEST : Breast implant mound right, decreased breath sounds, occasional expiratory wheezes, no tenderness HEART : RRR, no obvious murmurs ABDOMEN: Soft, nontender RECTAL : Intact sphincter, yellow stool (FOBT negative) EXTREMITIES : No LE swelling/tenderness, no other conspicuous deformities noted NEUROLOGIC : Lethargic , R facial asymmetry (chronic as per son when patient sleeping without dentures), no other gross focality Principal Diagnosis Metabolic Encephalopathy Right internal carotid artery aneurysm Hypomagnesemia Hypokalemia Discharge Data Allergies Allergy/AdvReac Type Severity Reaction Status Date / Time latex Allergy Intermediate HIVES Verified 07/01/19 00:03 nickel Allergy Intermediate Hives/Itchi Verified 07/01/19 00:03 ness Iodinated Contrast Media AdvReac Mild Diarrhea Verified 07/01/19 00:03 [Iodinated Contrast- Oral and IV Dye] Lobster Allergy Severe HIVES Uncoded 07/01/19 00:03 Consultations 07/01/19 03:07 ED Decision to Admit Stat 07/01/19 09:23 Consult Neurology Routine Procedures Performed Brain MRI: 1. No acute intracranial findings. 2. No intracranial mass or pathologic enhancement. 3. Mild atrophy. Moderate small vessel disease. 4. Diminished T1 marrow signal within the skeletal structures. This is a nonspecific finding which raises the possibility of a marrow replacement/marrow proliferative process. Brain MRA: 1. 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 2. No significant stenosis or occlusion within the [place]. Head CT: No significant change compared to the prior study. No acute intracranial abnormality. CXR: Chronic changes as described above. No new focal lung consolidations to suggest pneumonia. Ordered Studies 06/30/19 23:24 CT head/brain wo con Ur[facility] 07/01/19 00:14 MR angio head wo con [facility] 07/01/19 00:15 MR brain wo/w con [facility] Hospital Course (1) Unresponsiveness: Metabolic Encephalopathy Likely secondary to home medications (Narcotics, benzo, neuropsychotropic agents) Significant improvement of mental status after Narcan administration. --MRI brain: No acute intracranial findings. No intracranial mass or pathologic enhancement. Mild atrophy. Moderate small vessel disease. Diminished T1 marrow signal within the skeletal structures. This is a nonspecific finding which raises the possibility of a marrow replacement/marrow proliferative process. --MRA:A 7 mm aneurysm at the ophthalmic segment of the right internal carotid artery. No significant stenosis or occlusion within the [place]. --EEG: This is a normal EEG without evidence for focal generalized encephalopathy without evidence for potentially epileptogenic activity --Minimize Narcotic/Benzo use as able --Oxycodone discontinued --Continue Neuro checks --Appreciate Neurology Input --Mental status back to baseline --Advised to avoid narcotic use Right internal carotid artery aneurysm Incidental finding on imaging Needs follow-up with Neurovascular surgery as outpatient COPD Past tobacco abuse No signs of exacerbation Denies any shortness of breath, worsening cough Continue home inhalers Supplemental oxygen as needed Diarrhea: Check Stool for C diff : negative Imodium PRN Hypokalemia Hypomagnesemia Replace electrolytes as needed H/O Breast cancer S/P surgery, chemoradiation Continue home medications Minimize narcotic use as able Thrombocythemia H/O Myelodysplastic syndrome On Hydrea, Anagrelide Rx Platelets within normal limits Acute on chronic anemia Hb dropped from baseline No bleeding issues S/P 1 unit PRBCs Transfuse PRBCs as needed Hb:8.3 Mood/anxiety disorder Continue amitriptyline at decreased dose of 50 mg Qhs Insomnia Continue trazodone at decreased dose of 25 mg QHs Peripheral neuropathy Continue Lyrica DVT Px: Lovenox SQ CODE STATUS Conditional code Disposition Plan to discharge home with Home Health Total Time Total Time Spent Total Time Spent (In Minutes): 40 minutes Discharge Plan Discharge Items Patient Disposition: Home - Home Health Services Reason For Visit: AMS Discharge Diagnosis: Metabolic Encephalopathy Right internal carotid artery aneurysm Hypomagnesemia Hypokalemia Activity: Resume your previous activity Exercise/Sports: Gradually increase as tolerated Non-emergency contact: Primary Care Provider and Surgeon Call non-emergency contact if: you have any medication questions, your symptoms worsen, your pain is not controlled, your pain is worsening, your pain is unusual for you, your pain is concerning for you and you have a fever Follow-up/Referrals: Lia Cosat [Primary Care Provider] - Diet: Lactose Intolerant Addtl Attending Provider Instructions: Follow-up with your primary care physician Dr. English on July 11, 2019 at 11 AM Follow-up with your vascular surgeon as recommended for evaluation of right internal carotid artery aneurysm which was incidentally found on your CAT scan Minimize narcotic medication use as recommended Discuss with your physician for further adjustment of your home medications as advised Seek immediate medical attention if your symptoms reoccur or worsen Pending Studies at Discharge: No Stand-Alone Forms: My [facility] [employer], Smoking Cessation Medications and DC Order Prescriptions: Continued Breo Ellipta 100-25 mcg/dose Blister With Device 1 inh INHALATION DAILY RF: 0 loperamide 2 mg Capsule 2 mg PO UD PRN (Reason: loose stool) Qty: 20 RF: 0 acetaminophen 325 mg Tablet 650 mg PO Q6H MDD 3GM/24HR PRN (Reason: TEMP>101) RF: 0 Lactobacillus acidoph-L.bulgar [Floranex] 1 million cell Tablet 4 tab PO QID 10 Days Qty: 40 RF: 0 hydroxyurea [Hydrea] 500 mg Capsule 500 mg PO DAILY RF: 0 temazepam [Restoril] 30 mg Capsule 30 mg PO HS RF: 0 pantoprazole [Protonix] 40 mg Tablet,Delayed Release (Dr/Ec) 40 mg PO BID RF: 0 anagrelide 1 mg Capsule 1 mg PO DAILY RF: 0 pregabalin [Lyrica] 75 mg Capsule 75 mg PO BID RF: 0 Changed trazodone 50 mg Tablet 25 mg PO HS Qty: 0 RF: 0 amitriptyline 100 mg Tablet 50 mg PO HS Qty: 0 RF: 0 Discontinued oxycodone 10 mg Tablet 10 mg PO Q12 RF: 0 acetaminophen [Tylenol Extra Strength] 500 mg Tablet 500 mg PO Q6H PRN (Reason: PAIN RATE 1-3 ON 1-10 SCALE) RF: 0 Discharge Orders: Discharge Order (Routine); Ordered 07/04/19 Ordered By: Carl Jackson Admission Data Admit Date/Time: 07/02/19 16:43 Attending Provider: Carl Jackson Admit Provider: Mendel Anand Primary Care Provider: Lia Costa Other Providers: Mendel Anand ; Tuan Vgeas ; [facility] Other Interventions: Discharge Summary Assessment (RN) Last Done: 07/04/19 16:09
[2019-07-04 15:00] VITALS: BP 134/66; TEMP 97.9; O2SAT 95
[2019-07-04] MEDS: LOPERAMIDE HCL 2 MG CAP PO PRN ×3 (15:51→17:35)
[2019-07-04 16:10] VITALS: PULSE 70
== END 2019-07-04 20:24 | disposition home health service (06) | DRG 93 ==
LOC: ED 23:18 → 2W 23:18

== ENCOUNTER 2019-12-17 19:26 | Inpatient (IN) ==
[2019-12-17] MEDS ORDERED: SODIUM CHLORIDE 0.9% 1000ML 500 ML IV ONE (19:35)
[2019-12-17] MEDS ORDERED: ONDANSETRON INJ 2 MG/ML 2 ML VIAL IV STA (19:35)
--- NOTE | 2019-12-17 20:14 | XRay Report ---
XR chest 1V portable CLINICAL HISTORY: weakness TRAUMA COMPARISON STUDY: 07/01/2019 FINDINGS: The cardiac and mediastinal contours remain stable. Surgical clips project over the right a xillary region. Increased density the right hemithorax is felt to be secondary to a breast prosthesis . There is no acute parenchymal consolidation. There is minimal blunting of the lateral costophrenic angles. There is an old proximal left humeral fracture. Calcified hilar lymph nodes are again evident . There is no overt failure.[ IMPRESSION: Chronic changes as described above. No acute findings. ACT 112: Negative or not required by law. Electronically signed by: Sher Lira M.D. 12/17/2019 8:13 PM
--- NOTE | 2019-12-17 20:14 | XRay Report ---
XR hip LT 2V w pelvis CLINICAL HISTORY: Left hip pain status post trauma COMPARISON: May 2017 DISCUSSION: There is a total left hip arthroplasty. No acute fractures or dislocations are visualized . IMPRESSION: Left hip arthroplasty. No acute fractures or dislocations identified ACT 112: Negative or not required by law. Electronically signed by: Sher Lira M.D. 12/17/2019 8:13 PM
[2019-12-17] MEDS: fentaNYL citrate 100 MCG/2 ML VIAL IV PRN ×2 (20:25→22:14)
[2019-12-17 20:26] LABS: Basophils # (auto) 0.14 K/uL (0-0.2); Basophils % (auto) 0.9 %; Eosinophils % (auto) 2.6 %; Hematocrit (blood only) 30.5 % (37-47); Hemoglobin 9.4 g/dL (12.0-16.0); Immature Granulocytes # (auto) 0.09 K/uL (0.00-0.02); Immature Granulocytes % (auto) 0.6 %; Lymphocytes # (auto) 2.61 K/uL (1.2-3.4); Mean Corpuscular Hemoglobin 35.2 pg (25-34); Mean Corpuscular Hgb Conc 30.8 g/dL (32-36); Mean Corpuscular Volume 114.2 fL (80-100); Mean Platelet Volume 12.4 fL (7.4-10.4); Monocytes # (auto) 1.28 K/uL (0.11-0.59); Monocytes % (auto) 8.3 %; Neutrophils # (auto) 10.82 K/uL (1.4-6.5); Neutrophils % (auto) 70.6 %; Nucleated RBC # (auto) 0.06 K/uL (0-0); Nucleated RBC % (auto) 0.4 %; Platelet Count 889 K/uL (130-400); RDW Coefficient of Variation 29.8 % (11.5-14.5); RDW Standard Deviation 123.3 fL (36.4-46.3); Red Blood Count 2.67 M/uL (4.2-5.4); White Blood Count 15.34 K/uL (4.8-10.8)
[2019-12-17 20:37] LABS: Partial Thromboplastin Time 27.7 Seconds (21.0-31.0); Prothrombin Time 10.3 Seconds (9.0-12.0)
[2019-12-17 20:45] LABS: Alanine Aminotransferase 19 U/L (12-78); Albumin Level 3.9 gm/dl (3.4-5.0); Aspartate Aminotransferase 21 U/L (15-37); BUN Creatinine Ratio 24.4 (10-20); Blood Urea Nitrogen 26 mg/dl (7-18); Carbon Dioxide 25 mmol/L (21-32); Chloride 111 mmol/L (98-107); Creatinine Clr Calc Pharmacy 37.7 ml/min; Glucose 91 mg/dl (70-99); Magnesium 2.3 mg/dl (1.8-2.4); Potassium 5.1 mmol/L (3.5-5.1); Sodium 139 mmol/L (136-145)
--- NOTE | 2019-12-17 20:46 | CT Scan Report ---
CT head/brain wo con CLINICAL HISTORY: Head pain status post trauma COMPARISON STUDY: MRI dated 07/01/2019, CT scan dated 06/30/2019 TECHNIQUE: Axial CT of the brain is performed from the vertex to the skull base. IV contrast was not administered for this examination. A dose lowering technique was utilized adhering to the principles of ALARA. CT DOSE: 843.28 mGy.cm FINDINGS: No intra or extra-axial mass lesions are visualized. There is no CT evidence of acute cortical infarc tion. There is no evidence of midline shift. There is no acute hemorrhage. No calvarial fractures ar e visualized. There are moderate white matter hypodensities likely on a small vessel basis. There is mild ventricular prominence which is felt to be secondary to volume loss. There is no evidence of acute sinusitis IMPRESSION: No acute intracranial findings ACT 112: Negative or not required by law. Electronically signed by: Sher Lira M.D. 12/17/2019 8:44 PM
--- NOTE | 2019-12-17 20:48 | CT Scan Report ---
CT OF THE CERVICAL SPINE CLINICAL HISTORY: Neck pain status post trauma COMPARISON STUDY: No previous studies for comparison. CT DOSE: TECHNIQUE: CT scan of the cervical spine was performed from the skull base to the thoracic inlet. Mercedes ges are reviewed in the axial, sagittal, and coronal planes. IV contrast was not administered for thi s examination. A dose lowering technique was utilized adhering to the principles of ALARA. FINDINGS: There is a multinodular thyroid gland. There is no apical pneumothorax. There is apical pulmonary emp hysema The prevertebral soft tissues are normal. No fractures or traumatic subluxations are visualized. There are multilevel degenerative changes. Minor retrolisthesis of C3 on C4 and C4 on C5 is felt to b e degenerative. There is a prominent disc osteophyte complex at the C6-7 level with secondary spinal canal narrowing. IMPRESSION: No evidence of acute fracture or traumatic subluxation. ACT 112: Negative or not required by law. Electronically signed by: Sher Lira M.D. 12/17/2019 8:47 PM
[2019-12-17 20:55] LABS: Albumin Globulin Ratio 1.2 (0.9-2); Alkaline Phosphatase 66 U/L (45-117); Bilirubin,Total 0.3 mg/dl (0.2-1); Globulin 3.2 gm/dl (2.5-4.0); Total Protein 7.1 gm/dl (6.4-8.2); Troponin I < 0.015 ng/ml (0-0.045)
[2019-12-17 20:59] LABS: Anisocytosis Present; Macrocytosis Present; Poikilocytosis Present; Schistocytes 1+; Tear Drop Cells 1+
--- NOTE | 2019-12-17 21:16 | Emergency Department Note ---
History of Present Illness General Chief complaint: Fall Stated complaint: HIP & PELVIC PAIN, SYNCOPE & FALL YESTERDAY History of Present Illness Maximum Pain Intensity: 5 The patient is a 79-year-old female who presented to the emergency department for an evaluation after having a syncopal episode and a fall. The patient has a history of left hip surgery in the past. She had a syncopal episode where she fell onto her left side. The patient complains of significant left hip pain. This occurred yesterday. She states that she did strike her head and had a positive loss of consciousness. She does complain of headache as well. The patient states that she has a history of anemia and has had generalized weakness in the past which resulted in a syncopal episode upon standing. She denies having any specific chest pain at this time. She has no fever or chills. She denies any dysuria or frequency. She denies having any back pain but does complain of left forearm pain where there is a bruise. Patient has not seen her primary care physician for these symptoms. She took her outpatient medications as normal. Home Medications Home Medications Medication Instructions Recorded Confirmed Type hydroxyurea [Hydrea] 500 mg PO DAILY 06/06/18 12/17/19 History pantoprazole [Protonix] 40 mg PO BID PRN 06/06/18 12/17/19 History pregabalin [Lyrica] 75 mg PO BID 06/06/18 12/17/19 History temazepam [Restoril] 30 mg PO HS PRN 06/06/18 12/17/19 History albuterol sulfate 2.5 mg INHALATION Q4H PRN 12/17/19 12/17/19 History albuterol sulfate [Ventolin HFA] 2 puff INHALATION QID PRN 12/17/19 12/17/19 History amitriptyline 75 mg PO HS 12/17/19 12/17/19 History fluticasone propion-salmeterol 1 inh INHALATION BID 12/17/19 12/17/19 History loperamide See Rx Instructions .ROUTE 12/17/19 12/17/19 History .COMPLEX PRN olopatadine 1 drp OPB BID PRN 12/17/19 12/17/19 History tiotropium bromide [Spiriva with 1 cap INHALATION DAILY 12/17/19 12/17/19 History HandiHaler] trazodone 50 mg PO HS 12/17/19 12/17/19 History Allergies Allergy/AdvReac Type Severity Reaction Status Date / Time latex Allergy Intermediate HIVES Verified 12/17/19 20:19 nickel Allergy Intermediate Hives/Itchi Verified 12/17/19 20:19 ness Iodinated Contrast Media AdvReac Mild Diarrhea Verified 12/17/19 20:19 [Iodinated Contrast- Oral and IV Dye] Lobster Allergy Severe HIVES Uncoded 12/17/19 20:19 Past Med/Surg History Medical History Anemia (Chronic) CKD (chronic kidney disease), stage III (Chronic) COPD (chronic obstructive pulmonary disease) (Chronic) COPD exacerbation (Resolved) Essential thrombocythemia (Chronic) Fracture of radial neck, left, closed (Resolved) History of breast cancer (Chronic) History of MRSA infection (Chronic) "left hip wound" History of peptic ulcer disease (Chronic) IBS (irritable bowel syndrome) (Chronic) Diarrhea predominant ; follows with GI Leukocytosis (Chronic) 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) Myelodysplastic syndrome (Chronic) Myelodysplastic syndrome (Chronic) Pelvic fracture S/P ORIF (open reduction internal fixation) fracture (Chronic) Thrombocytosis (Chronic) Surgical History H/O mastectomy (Chronic) right side H/O: hysterectomy (Chronic) History of cholecystectomy (Chronic) Status post cholecystectomy (Chronic) Status post hysterectomy (Chronic) Status post mastectomy (Chronic) "modified right mastectomy 1990" Status post total hip replacement, left (Chronic) Family History Other Unknown family medical history Social History Preferred Language: Japanese Communication Ability: Effective Audit Partner Required: No Beliefs That Will Affect Care: None marital status: / Current Living Situation: Retirement Feels Safe at Home: Yes Smoking Status: Current every day smoker Tobacco Type: e-cigarettes ; Second Hand Exposure: No ; Hx Alcohol Use: No Hx Substance Use: No Review of Systems See HPI for pertinent positives & negatives. and A total of 10 systems reviewed and were otherwise negative Physical Exam Vital Signs Vital Signs - 24 hr 12/17/19 19:31 12/17/19 19:32 12/17/19 19:41 Temperature 36.7 C Temperature Source Oral Pulse Rate 99 H 105 H Pulse Rate from SpO2 Sensor 104 H Pulse Rhythm Regular Respiratory Rate 14 22 Respiratory Depth Normal Blood Pressure 118/56 L Blood Pressure Mean 76 Blood Pressure Position Sitting Pulse Oximetry 100 100 100 Oxygen Delivery Method Room Air Room Air Sepsis Recent Fever Within 48 Hours No Sepsis Action Taken by Nursing No Action Required 12/17/19 20:00 12/17/19 21:00 12/17/19 22:30 Temperature Temperature Source Pulse Rate 95 H 91 H 98 H Pulse Rate from SpO2 Sensor Pulse Rhythm Respiratory Rate 17 17 17 Respiratory Depth Blood Pressure 103/57 L Blood Pressure Mean 72 Blood Pressure Position Pulse Oximetry Oxygen Delivery Method Sepsis Recent Fever Within 48 Hours Sepsis Action Taken by Nursing 12/17/19 22:37 Temperature Temperature Source Pulse Rate 92 H Pulse Rate from SpO2 Sensor 92 H Pulse Rhythm Respiratory Rate 12 Respiratory Depth Blood Pressure 103/57 L Blood Pressure Mean 77 Blood Pressure Position Pulse Oximetry 94 Oxygen Delivery Method Sepsis Recent Fever Within 48 Hours Sepsis Action Taken by Nursing GENERAL: The patient is awake and alert. She is somewhat anxious appearing but overall comfortable. EYES: The conjunctivae are pale. The pupils are round and reactive. EARS, NOSE, MOUTH AND THROAT: The nose is without any evidence of any deformity. Mucous membranes are moist. NECK: The neck is nontender and supple. RESPIRATORY: Normal respiratory effort is noted there is no evidence of wheezing rhonchi or rales CARDIOVASCULAR: Regular rate and rhythm noted there no murmurs rubs or gallops normal S1 normal S2. GASTROINTESTINAL: The abdomen is soft. Abdomen is nontender. BACK: No midline tenderness or or step-off noted range of motion in flexion extension as well as rotation no signs of muscle spasm noted MUSCULOSKELETAL/EXTREMITIES: The patient has palpable tenderness in the posterior aspect of the left thigh. There is no deformity or shortening. Range of motion elicits pain. There is also a bruise on the left forearm. There is no deformity. SKIN: Trace pedal edema was noted bilaterally. NEUROLOGIC: Patient is awake alert and oriented x3 strength is symmetric patellar reflexes are 2+ bilaterally Course Course 2250: [facility] hospitalist, Dr. Marques was notified about this patient. He will evaluate the patient in the emergency department for further management disposition. Administered Medications Fentanyl Citrate (Fentanyl Citrate) 50 mcg IV Q15M PRN PRN Reason: Pain Stop: 12/31/19 19:34 Last Admin: 12/17/19 22:14 Dose: 50 mcg Documented by: [id number] Admin: 12/17/19 20:25 Dose: 50 mcg Documented by: [id number] Discontinued Medications Sodium Chloride (Nss 1000ml) 500 mls @ 999 mls/hr IV .Q31M ONE Stop: 12/17/19 20:05 Last Infusion: 12/17/19 21:10 Dose: 0 mls/hr Documented by: [id number] Admin: 12/17/19 20:27 Dose: 999 mls/hr Documented by: [id number] Sodium Chloride (Nss) 500 mls @ 999 mls/hr IV .Q31M ONE Stop: 12/17/19 22:03 Last Infusion: 12/17/19 22:44 Dose: 0 mls/hr Documented by: [id number] Admin: 12/17/19 22:15 Dose: 999 mls/hr Documented by: [id number] Ondansetron HCl (Zofran) 4 mg IV NOW STA Stop: 12/17/19 19:36 Last Admin: 12/17/19 20:25 Dose: 4 mg Documented by: [id number] Medical Decision Making Differential Diagnosis Infection, dehydration, metabolic abnormality, hypo/hyperglycemia, electrolyte disturbance, anemia, hypoxia, cardiac sources, intracerebral event, toxicologic, neurologic, as well as other pathologies. Medical Records Attestation: I reviewed the patient's medical records. Home Medications Current Medication List: was personally reviewed by me Laboratory Data Attestation: I reviewed the patient's lab results. Result diagrams: 12/17/19 20:08 12/17/19 20:08 Lab Results 12/17/19 12/17/19 12/17/19 Range/Units 20:08 20:08 20:08 WBC 15.34 H (4.8-10.8) K/uL RBC 2.67 L (4.2-5.4) M/uL Hgb 9.4 L (12.0-16.0) g/dL Hct 30.5 L (37-47) % MCV 114.2 H (80-100) fL MCH 35.2 H (25-34) pg MCHC 30.8 L (32-36) g/dL RDW Std Deviation 123.3 H (36.4-46.3) fL RDW Coeff of Radha 29.8 H (11.5-14.5) % Plt Count 889 H (130-400) K/uL MPV 12.4 H (7.4-10.4) fL Immature Gran % (Auto) 0.6 % Neut % (Auto) 70.6 % Lymph % (Auto) 17.0 % [place] % (Auto) 8.3 % Eos % (Auto) 2.6 % Baso % (Auto) 0.9 % Immature Gran # (Auto) 0.09 H (0.00-0.02) K/uL Neut # (Auto) 10.82 H (1.4-6.5) K/uL Lymph # (Auto) 2.61 (1.2-3.4) K/uL [place] # (Auto) 1.28 H (0.11-0.59) K/uL Eos # (Auto) 0.40 (0-0.5) K/uL Baso # (Auto) 0.14 (0-0.2) K/uL Absolute Nucleated RBC 0.06 H (0-0) K/uL Nucleated RBC % (auto) 0.4 % Poikilocytosis Present Anisocytosis Present Macrocytosis Present Tear Drop Cells 1+ Schistocytes 1+ PT 10.3 (9.0-12.0) Seconds INR 1.0 (0.9-1.1) APTT 27.7 (21.0-31.0) Seconds PTT Ratio 1.0 Sodium 139 (136-145) mmol/L Potassium 5.1 (3.5-5.1) mmol/L Chloride 111 H (98-107) mmol/L Carbon Dioxide 25 (21-32) mmol/L Anion Gap 3.0 (3-11) BUN 26 H (7-18) mg/dl Creatinine 1.07 (0.6-1.2) mg/dl Est Cr Clr Drug Dosing 37.7 ml/min Est GFR ( Amer) 58.0 Est GFR (Non-Af Amer) 50.0 BUN/Creatinine Ratio 24.4 H (10-20) Glucose 91 (70-99) mg/dl Calcium 9.0 (8.5-10.1) mg/dl Magnesium 2.3 (1.8-2.4) mg/dl Total Bilirubin 0.3 (0.2-1) mg/dl AST 21 (15-37) U/L ALT 19 (12-78) U/L Alkaline Phosphatase 66 (45-117) U/L Troponin I < 0.015 (0-0.045) ng/ml Total Protein 7.1 (6.4-8.2) gm/dl Albumin 3.9 (3.4-5.0) gm/dl Globulin 3.2 (2.5-4.0) gm/dl Albumin/Globulin Ratio 1.2 (0.9-2) TSH 3.320 (0.300-4.500) uIu/ml Urine Color Urine Appearance (Clear) Urine pH (4.5-7.5) Ur Specific [place] (1.000-1.030) Urine Protein (Negative) Urine Glucose (UA) (Negative) Urine Ketones (Negative) Urine Blood (Negative) Urine Nitrite (Negative) Urine Bilirubin (Negative) Urine Urobilinogen (Negative) Ur Leukocyte Esterase (Negative) Urine WBC (Auto) (0-5) /hpf Urine RBC (Auto) (0-4) /hpf U Hyaline Cast (Auto) (0-5) /lpf U Epithel Cells (Auto) (0-5) /lpf Urine Bacteria (Auto) (Negative) 12/17/19 Range/Units 22:30 WBC (4.8-10.8) K/uL RBC (4.2-5.4) M/uL Hgb (12.0-16.0) g/dL Hct (37-47) % MCV (80-100) fL MCH (25-34) pg MCHC (32-36) g/dL RDW Std Deviation (36.4-46.3) fL RDW Coeff of Radha (11.5-14.5) % Plt Count (130-400) K/uL MPV (7.4-10.4) fL Immature Gran % (Auto) % Neut % (Auto) % Lymph % (Auto) % [place] % (Auto) % Eos % (Auto) % Baso % (Auto) % Immature Gran # (Auto) (0.00-0.02) K/uL Neut # (Auto) (1.4-6.5) K/uL Lymph # (Auto) (1.2-3.4) K/uL [place] # (Auto) (0.11-0.59) K/uL Eos # (Auto) (0-0.5) K/uL Baso # (Auto) (0-0.2) K/uL Absolute Nucleated RBC (0-0) K/uL Nucleated RBC % (auto) % Poikilocytosis Anisocytosis Macrocytosis Tear Drop Cells Schistocytes PT (9.0-12.0) Seconds INR (0.9-1.1) APTT (21.0-31.0) Seconds PTT Ratio Sodium (136-145) mmol/L Potassium (3.5-5.1) mmol/L Chloride (98-107) mmol/L Carbon Dioxide (21-32) mmol/L Anion Gap (3-11) BUN (7-18) mg/dl Creatinine (0.6-1.2) mg/dl Est Cr Clr Drug Dosing ml/min Est GFR ( Amer) Est GFR (Non-Af Amer) BUN/Creatinine Ratio (10-20) Glucose (70-99) mg/dl Calcium (8.5-10.1) mg/dl Magnesium (1.8-2.4) mg/dl Total Bilirubin (0.2-1) mg/dl AST (15-37) U/L ALT (12-78) U/L Alkaline Phosphatase (45-117) U/L Troponin I (0-0.045) ng/ml Total Protein (6.4-8.2) gm/dl Albumin (3.4-5.0) gm/dl Globulin (2.5-4.0) gm/dl Albumin/Globulin Ratio (0.9-2) TSH (0.300-4.500) uIu/ml Urine Color Yellow Urine Appearance Cloudy A (Clear) Urine pH 5.5 (4.5-7.5) Ur Specific [place] 1.020 (1.000-1.030) Urine Protein Negative (Negative) Urine Glucose (UA) Negative (Negative) Urine Ketones Negative (Negative) Urine Blood Trace H (Negative) Urine Nitrite Positive A (Negative) Urine Bilirubin Negative (Negative) Urine Urobilinogen Negative (Negative) Ur Leukocyte Esterase 2+ H (Negative) Urine WBC (Auto) >30 H (0-5) /hpf Urine RBC (Auto) 0-4 (0-4) /hpf U Hyaline Cast (Auto) 10-30 H (0-5) /lpf U Epithel Cells (Auto) 0-5 (0-5) /lpf Urine Bacteria (Auto) 3+ H (Negative) Imaging Data Radiologist's Impression: XR hip LT 2V w pelvis CLINICAL HISTORY: Left hip pain status post trauma COMPARISON: May 2017 DISCUSSION: There is a total left hip arthroplasty. No acute fractures or dislocations are visualized. IMPRESSION: Left hip arthroplasty. No acute fractures or dislocations identified ACT 112: Negative or not required by law. Electronically signed by: Sher Lira M.D. 12/17/2019 8:13 PM Dictated: 12/17/192012 Transcribed: 12/17/192012 CT head/brain wo con CLINICAL HISTORY: Head pain status post trauma COMPARISON STUDY: MRI dated 07/01/2019, CT scan dated 06/30/2019 TECHNIQUE: Axial CT of the brain is performed from the vertex to the skull base. IV contrast was not administered for this examination. A dose lowering technique was utilized adhering to the principles of ALARA. CT DOSE: 843.28 mGy.cm FINDINGS: No intra or extra-axial mass lesions are visualized. There is no CT evidence of acute cortical infarction. There is no evidence of midline shift. There is no acute hemorrhage. No calvarial fractures are visualized. There are moderate white matter hypodensities likely on a small vessel basis. There is mild ventricular prominence which is felt to be secondary to volume loss. There is no evidence of acute sinusitis IMPRESSION: No acute intracranial findings ACT 112: Negative or not required by law. Electronically signed by: Sher Lira M.D. 12/17/2019 8:44 PM Dictated: 12/17/192042 Transcribed: 12/17/192042 XR chest 1V portable CLINICAL HISTORY: weakness TRAUMA COMPARISON STUDY: 07/01/2019 FINDINGS: The cardiac and mediastinal contours remain stable. Surgical clips project over the right axillary region. Increased density the right hemithorax is felt to be secondary to a breast prosthesis. There is no acute parenchymal consolidation. There is minimal blunting of the lateral costophrenic angles. There is an old proximal left humeral fracture. Calcified hilar lymph nodes are again evident. There is no overt failure.[ IMPRESSION: Chronic changes as described above. No acute findings. ACT 112: Negative or not required by law. Electronically signed by: Sher Lira M.D. 12/17/2019 8:13 PM Dictated: 12/17/192010 Transcribed: 12/17/192010 CT OF THE CERVICAL SPINE CLINICAL HISTORY: Neck pain status post trauma COMPARISON STUDY: No previous studies for comparison. CT DOSE: TECHNIQUE: CT scan of the cervical spine was performed from the skull base to the thoracic inlet. Images are reviewed in the axial, sagittal, and coronal planes. IV contrast was not administered for this examination. A dose lowering technique was utilized adhering to the principles of ALARA. FINDINGS: There is a multinodular thyroid gland. There is no apical pneumothorax. There is apical pulmonary emphysema The prevertebral soft tissues are normal. No fractures or traumatic subluxations are visualized. There are multilevel degenerative changes. Minor retrolisthesis of C3 on C4 and C4 on C5 is felt to be degenerative. There is a prominent disc osteophyte complex at the C6-7 level with secondary spinal canal narrowing. IMPRESSION: No evidence of acute fracture or traumatic subluxation. ACT 112: Negative or not required by law. Electronically signed by: Sher Lira M.D. 12/17/2019 8:47 PM Dictated: 12/17/192043 Transcribed: 12/17/192043 CT pelvis wo con CT DOSE: CLINICAL HISTORY: Pelvic pain status post trauma TECHNIQUE: Helical images were acquired in the transverse plane. Sagittal and coronal reformatted images were acquired. A dose lowering technique was utilized adhering to the principles of ALARA. COMPARISON STUDY: January 2019 FINDINGS: There is a partially visualized 5 cm right renal cyst. There is no ascites. The bones are osteopenic. There are postsurgical changes of a total left hip arthroplasty. There are fractures of the left inferior pubic ramus. There is no evidence for SI joint diastases. There is no evidence for symphysis diastases. There is a stable periprosthetic fracture involving the medial cortex of the subtrochanteric left femur. IMPRESSION: 1. Acute left inferior ischiopubic ring fracture. 2. No evidence of SI joint diastases. No evidence of symphysis diastases. 3. Total left hip arthroplasty. 4. Osteopenia ACT 112: Negative or not required by law. Electronically signed by: Sher Lira M.D. 12/17/2019 10:17 PM Dictated: 12/17/192206 Transcribed: 12/17/192210 CT hip LT wo con CT DOSE: 362.77 mGy.cm CLINICAL HISTORY: Left hip pain status post trauma TECHNIQUE: Helical images were acquired in the transverse plane. Sagittal coronal reformatted images were acquired. A dose lowering technique was utilized adhering to the principles of ALARA. COMPARISON STUDY: October 2018 FINDINGS: There is a total left hip arthroplasty. There is no evidence of dislocation. There is acute fracture of the inferior left ischio pubic ring. There is a chronic cortical lucency involving the medial aspect of the proximal femoral shaft consistent with a chronic periprosthetic fracture. IMPRESSION: 1. Acute fracture of the left inferior ischial pubic ramus 2. Total left hip arthroplasty. No evidence of dislocation 3. 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 This remains unchanged from the preceding study ACT 112: Negative or not required by law. Electronically signed by: Sher Lira M.D. 12/17/2019 10:15 PM Dictated: 12/17/192210 Transcribed: 12/17/192210 ECG Data Attestation: I personally reviewed and interpreted this ECG as follows: Indication: + syncope Rate (beats per minute): 95 Additional Comments: EKG was obtained in the emergency department. My interpretation is normal sinus rhythm at 95 bpm. Anterior T wave inversions were noted. Nonspecific ST segment abnormalities were noted. Incomplete right bundle branch block pattern was noted. There was no significant change compared to a tracing from June 30, 2019. Blood Pressure Blood Pressure Findings: Normal blood pressure MDM Narrative The patient is a 79-year-old female who presented to the emergency department for an evaluation for left hip pain. The patient has a history of hip replacement on the left. She has had a history of a periprosthetic fracture in the past. The patient had a syncopal episode yesterday where she went from a sitting to standing position and fell striking her left side. She complained of mostly left hip pain but was posterior nature. The patient's radiographic studies did not show any acute fracture but because of persistence of pain she had a CT of the pelvis as well as the left hip. She did not have any hip fracture but did have an inferior pubic ring fracture. She was treated with pain medication in the emergency department. She has a history of anemia but her hemoglobin appears to be improved compared to previous. This could be secondary to dehydration given the patient's BUN and creatinine compared to previous. She was treated with IV fluids in the emergency department. She was feeling much better on subsequent reevaluation. I discussed the patient's laboratory and radiographic studies with her. She was still having very significant pain especially with ambulation. For this reason I discussed her case with the on-call [facility] hospitalist. They have agreed to evaluate the patient in the emergency department for further management and disposition. The patient was also started on IV antibiotics for presumed urinary tract infection noted on urinalysis. This likely also describes her the patient's white blood cell count was elevated. Impression & Plan Syncope, Fall, Contusion of hip, left, Closed fracture of inferior pubic ramus, Contusion of forearm, left, Acute dehydration, Acute UTI (urinary tract infection) Discharge Plan Visit Data Chief Complaint: Fall Stated Complaint: HIP & PELVIC PAIN, SYNCOPE & FALL YESTERDAY ED Provider: Vance Roberts Discharge Problem: Syncope, Fall, Contusion of hip, left, Closed fracture of inferior pubic ramus, Contusion of forearm, left, Acute dehydration, Acute UTI (urinary tract infection) Patient Disposition: Being Evaluated by Hospitalist Condition: Good Forms Stand Alone Forms: My [facility] Prescriptions Prescriptions: No Action hydroxyurea [Hydrea] 500 mg Capsule 500 mg PO DAILY RF: 0 temazepam [Restoril] 30 mg Capsule 30 mg PO HS PRN (Reason: Sleep) RF: 0 pantoprazole [Protonix] 40 mg Tablet,Delayed Release (Dr/Ec) 40 mg PO BID PRN (Reason: Acid Reflux) RF: 0 pregabalin [Lyrica] 75 mg Capsule 75 mg PO BID RF: 0 albuterol sulfate 2.5 mg /3 mL (0.083 %) solution for nebulization 2.5 mg inhalation Q4H PRN (Reason: Wheezing) RF: 0 amitriptyline 75 mg tablet 75 mg PO HS RF: 0 olopatadine 0.1 % drops 1 drp OPB BID PRN (Reason: Itching) RF: 0 fluticasone propion-salmeterol 500-50 mcg/dose blister with device 1 inh INHALATION BID RF: 0 albuterol sulfate [Ventolin HFA] 90 mcg/actuation HFA aerosol inhaler 2 puff INHALATION QID PRN (Reason: Shortness Of Breath Or Wheezing) RF: 0 Spiriva with HandiHaler 18 mcg capsule, w/inhalation device 1 cap INHALATION DAILY RF: 0 loperamide 2 mg capsule See Rx Instructions .ROUTE .COMPLEX PRN (Reason: Diarrhea) RF: 0 trazodone 50 mg tablet 50 mg PO HS RF: 0 Referrals Referrals: Valerie Chavez MD [Primary Care Provider] - Discharge Problem: Syncope Qualifiers: Syncope type: unspecified Qualified Code(s): R55 - Syncope and collapse Fall Qualifiers: Encounter type: initial encounter Qualified Code(s): W19.XXXA - Unspecified fall, initial encounter Contusion of hip, left Qualifiers: Encounter type: initial encounter Qualified Code(s): S70.02XA - Contusion of left hip, initial encounter Closed fracture of inferior pubic ramus Qualifiers: Encounter type: initial encounter Laterality: left Qualified Code(s): S32.592A - Other specified fracture of left pubis, initial encounter for closed fracture Contusion of forearm, left Qualifiers: Encounter type: initial encounter Qualified Code(s): S50.12XA - Contusion of left forearm, initial encounter
[2019-12-17] MEDS ORDERED: SODIUM CHLORIDE 0.9% 500 ML IV ONE (21:33)
--- NOTE | 2019-12-17 22:16 | CT Scan Report ---
CT hip LT wo con CT DOSE: 362.77 mGy.cm CLINICAL HISTORY: Left hip pain status post trauma TECHNIQUE: Helical images were acquired in the transverse plane. Sagittal coronal reformatted images were acquired. A dose lowering technique was utilized adhering to the principles of ALARA. COMPARISON STUDY: October 2018 FINDINGS: There is a total left hip arthroplasty. There is no evidence of dislocation. There is acute fracture of the inferior left ischio pubic ring. There is a chronic cortical lucency involving the medial aspect of the proximal femoral shaft consist ent with a chronic periprosthetic fracture. IMPRESSION: 1. Acute fracture of the left inferior ischial pubic ramus 2. Total left hip arthroplasty. No evidence of dislocation 3. 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 This r emains unchanged from the preceding study ACT 112: Negative or not required by law. Electronically signed by: Sher Lira M.D. 12/17/2019 10:15 PM
--- NOTE | 2019-12-17 22:18 | CT Scan Report ---
CT pelvis wo con CT DOSE: CLINICAL HISTORY: Pelvic pain status post trauma TECHNIQUE: Helical images were acquired in the transverse plane. Sagittal and coronal reformatted alan ges were acquired. A dose lowering technique was utilized adhering to the principles of ALARA. COMPARISON STUDY: January 2019 FINDINGS: There is a partially visualized 5 cm right renal cyst. There is no ascites. The bones are osteopenic. There are postsurgical changes of a total left hip arthroplasty. There are fractures of the left inferior pubic ramus. There is no evidence for SI joint diastases. There is no evidence for symphysis diastases. There is a stable periprosthetic fracture involving the medial cortex of the subtrochanteric left fem ur. IMPRESSION: 1. Acute left inferior ischiopubic ring fracture. 2. No evidence of SI joint diastases. No evidence of symphysis diastases. 3. Total left hip arthroplasty. 4. Osteopenia ACT 112: Negative or not required by law. Electronically signed by: Sher Lira M.D. 12/17/2019 10:17 PM
[2019-12-17 22:43] LABS: Appearance Urine Cloudy (Clear); Bacteria Urine Automated 3+ (Negative); Bilirubin Urine Negative (Negative); Blood Urine Trace (Negative); Color Urine Yellow; Epithelial Cell Urine Auto 0-5 /lpf (0-5); Glucose Urine UA Negative (Negative); Ketones Urine Negative (Negative); Leukocyte Esterase Urine 2+ (Negative); Nitrite Urine Positive (Negative); Protein Urine Negative (Negative); RBC Urine Automated 0-4 /hpf (0-4); Urobilinogen Urine Negative (Negative); WBC Urine Automated >30 /hpf (0-5); pH Urine 5.5 (4.5-7.5)
[2019-12-17] MEDS ORDERED: cefTRIAXone SODIUM 1,000 MG/50 ML BAG IV STA (22:55)
[2019-12-17] MEDS ORDERED: NICOTINE 21 MG/24 HR TDSY TD STA (23:38)
--- NOTE | 2019-12-17 23:49 | History & Physical Report ---
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 at baseline Medical telemetry Cultures, check lactic acid IV ceftriaxone, IVF Check orthostatic vitals, TTE RE syncope Orthopedics consult RE pelvic fracture PT OT eval Nicotine patch PRN DVT prophylaxis per Lovenox subcu Full code Text document was generated using [employer] voice recognition software. It may contain grammatical or spelling errors. Kindly contact undersigned for clarification of any documentation item in question. History of Present Illness Lives with daughter lives with daughter Chief Complaint: Fall, right hip pain Primary Care Provider: Valerie Chavez MD History obtained from patient, family, and records. Medical history is significant for COPD, ongoing tobacco abuse, hx PVD, hx breast cancer, right, status post surgery, chemoradiation, thrombocythemia on Hydrea therapy, myelodysplastic syndrome, chronic anemia (baseline hemoglobin of 8-9), mood/anxiety disorder. Recent confinement June 2019 from unresponsiveness secondary to home medications. Patient noted dysuria symptoms the last few days without fever, chills, or flank pain. Patient got up to reach for a bowl at home hours ago. Patient noted lightheadedness followed by syncopal event, possible head trauma post syncope. Patient woke up with achy left hip pain, unable to get up. Does not know how long she was on the floor. No incontinence or tongue injury noted. Patient called out for her daughter who alerted EMS. Patient brought to the ER for evaluation. Patient given IV Ceftriaxone at the ER for UTI. Medical History as above Surgical History : Cholecystectomy, mastectomy right, hysterectomy, hip surgery Family History : Hypertension Personal/social history past tobacco abuse, no EtOH intake, lives with daughter Allergies Allergy/AdvReac Type Severity Reaction Status Date / Time latex Allergy Intermediate HIVES Verified 12/17/19 20:19 nickel Allergy Intermediate Hives/Itchi Verified 12/17/19 20:19 ness Iodinated Contrast Media AdvReac Mild Diarrhea Verified 12/17/19 20:19 [Iodinated Contrast- Oral and IV Dye] Lobster Allergy Severe HIVES Uncoded 12/17/19 20:19 Home Medications Home Medications Medication Instructions Recorded Confirmed Type hydroxyurea [Hydrea] 500 mg PO DAILY 06/06/18 12/17/19 History pantoprazole [Protonix] 40 mg PO BID PRN 06/06/18 12/17/19 History pregabalin [Lyrica] 75 mg PO BID 06/06/18 12/17/19 History temazepam [Restoril] 30 mg PO HS PRN 06/06/18 12/17/19 History albuterol sulfate 2.5 mg INHALATION Q4H PRN 12/17/19 12/17/19 History albuterol sulfate [Ventolin HFA] 2 puff INHALATION QID PRN 12/17/19 12/17/19 History amitriptyline 75 mg PO HS 12/17/19 12/17/19 History fluticasone propion-salmeterol 1 inh INHALATION BID 12/17/19 12/17/19 History loperamide See Rx Instructions .ROUTE 12/17/19 12/17/19 History .COMPLEX PRN olopatadine 1 drp OPB BID PRN 12/17/19 12/17/19 History tiotropium bromide [Spiriva with 1 cap INHALATION DAILY 12/17/19 12/17/19 Histo ry HandiHaler] trazodone 50 mg PO HS 12/17/19 12/17/19 History Past Med/Surg History Medical History Anemia (Chronic) CKD (chronic kidney disease), stage III (Chronic) COPD (chronic obstructive pulmonary disease) (Chronic) COPD exacerbation (Resolved) Essential thrombocythemia (Chronic) Fracture of radial neck, left, closed (Resolved) History of breast cancer (Chronic) History of MRSA infection (Chronic) "left hip wound" History of peptic ulcer disease (Chronic) IBS (irritable bowel syndrome) (Chronic) Diarrhea predominant ; follows with GI Leukocytosis (Chronic) 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) Myelodysplastic syndrome (Chronic) Myelodysplastic syndrome (Chronic) Pelvic fracture S/P ORIF (open reduction internal fixation) fracture (Chronic) Thrombocytosis (Chronic) Surgical History H/O mastectomy (Chronic) right side H/O: hysterectomy (Chronic) History of cholecystectomy (Chronic) Status post cholecystectomy (Chronic) Status post hysterectomy (Chronic) Status post mastectomy (Chronic) "modified right mastectomy 1990" Status post total hip replacement, left (Chronic) Family History Other Unknown family medical history Social History Preferred Language: Amharic Communication Ability: Effective Still Photographer Required: Yes Beliefs That Will Affect Care: None marital status: / Current Living Situation: Family Other Information That Helps Us Care for You: No Feels Safe at Home: Yes Safety Concerns: Feels Safe At This Time Smoking Status: Never smoker Tobacco Type: e-cigarettes ; Second Hand Exposure: No ; Hx Alcohol Use: No Hx Substance Use: No Review of Systems Review of Systems: As per HPI, all 10 systems reviewed, all other ROS negative Physical Exam Physical Exam: GENERAL: Comfortable, pleasant, underweight, no respiratory distress SKIN: Pallor , warm HEENT: Pale palpebral conjunctivae, no ptosis, dry buccal mucosa NECK : Supple, no tenderness CHEST : Right breast prosthesis, decreased breath sounds , no tenderness HEART : RRR, no obvious murmurs ABDOMEN: Some distention, minimal hypogastric tenderness EXTREMITIES : No LE swelling/tenderness, left elbow ecchymosis, no other conspicuous deformities noted NEUROLOGIC : Coherent, no facial asymmetry, no other gross focality Results & Data Results & Data ([facility]) Vital Signs (Past 12 Hours) Vital Signs Temp Pulse Resp BP Pulse Ox 12/17/19 22:37 92 H 12 103/57 L 94 12/17/19 22:30 98 H 17 103/57 L 12/17/19 21:00 91 H 17 12/17/19 20:00 95 H 17 12/17/19 19:41 100 12/17/19 19:32 105 H 22 100 12/17/19 19:31 36.7 C 99 H 14 118/56 L 100 Laboratory Results Laboratory Results WBC 15.34 K/uL (4.8-10.8) H 12/17/19 20:08 RBC 2.67 M/uL (4.2-5.4) L 12/17/19 20:08 Hgb 9.4 g/dL (12.0-16.0) L 12/17/19 20:08 Hct 30.5 % (37-47) L 12/17/19 20:08 MCV 114.2 fL (80-100) H 12/17/19 20:08 MCH 35.2 pg (25-34) H 12/17/19 20:08 MCHC 30.8 g/dL (32-36) L 12/17/19 20:08 RDW Std Deviation 123.3 fL (36.4-46.3) H 12/17/19 20:08 RDW Coeff of Radha 29.8 % (11.5-14.5) H 12/17/19 20:08 Plt Count 889 K/uL (130-400) H 12/17/19 20:08 MPV 12.4 fL (7.4-10.4) H 12/17/19 20:08 Immature Gran % (Auto) 0.6 % 12/17/19 20:08 Neut % (Auto) 70.6 % 12/17/19:08 Lymph % (Auto) 17.0 % 12/17/19 20:08 [place] % (Auto) 8.3 % 12/17/19 20:08 Eos % (Auto) 2.6 % 12/17/19 20:08 Baso % (Auto) 0.9 % 12/17/19 20:08 Immature Gran # (Auto) 0.09 K/uL (0.00-0.02) H 12/17/19 20:08 Neut # (Auto) 10.82 K/uL (1.4-6.5) H 12/17/19 20:08 Lymph # (Auto) 2.61 K/uL (1.2-3.4) 12/17/19 20:08 [place] # (Auto) 1.28 K/uL (0.11-0.59) H 12/17/19 20:08 Eos # (Auto) 0.40 K/uL (0-0.5) 12/17/19 20:08 Baso # (Auto) 0.14 K/uL (0-0.2) 12/17/19 20:08 Absolute Nucleated RBC 0.06 K/uL (0-0) H 12/17/19 20:08 Nucleated RBC % (auto) 0.4 % 12/17/19 20:08 Poikilocytosis Present 12/17/19 20:08 Anisocytosis Present 12/17/19 20:08 Macrocytosis Present 12/17/19 20:08 Tear Drop Cells 1+ 12/17/19 20:08 Schistocytes 1+ 12/17/19 20:08 PT 10.3 Seconds (9.0-12.0) 12/17/19 20:08 INR 1.0 (0.9-1.1) 12/17/19 20:08 APTT 27.7 Seconds (21.0-31.0) 12/17/19 20:08 PTT Ratio 1.0 12/17/19 20:08 Sodium 139 mmol/L (136-145) 12/17/19 20:08 Potassium 5.1 mmol/L (3.5-5.1) 12/17/19 20:08 Chloride 111 mmol/L (98-107) H 12/17/19 20:08 Carbon Dioxide 25 mmol/L (21-32) 12/17/19 20:08 Anion Gap 3.0 (3-11) 12/17/19 20:08 BUN 26 mg/dl (7-18) H 12/17/19 20:08 Creatinine 1.07 mg/dl (0.6-1.2) 12/17/19 20:08 Est Cr Clr Drug Dosing 37.7 ml/min 12/17/19 20:08 Est GFR ( Amer) 58.0 12/17/19 20:08 Est GFR (Non-Af Amer) 50.0 12/17/19 20:08 BUN/Creatinine Ratio 24.4 (10-20) H 12/17/19 20:08 Glucose 91 mg/dl (70-99) 12/17/19 20:08 Calcium 9.0 mg/dl (8.5-10.1) 12/17/19 20:08 Magnesium 2.3 mg/dl (1.8-2.4) 12/17/19 20:08 Total Bilirubin 0.3 mg/dl (0.2-1) 12/17/19 20:08 AST 21 U/L (15-37) 12/17/19 20:08 ALT 19 U/L (12-78) 12/17/19 20:08 Alkaline Phosphatase 66 U/L (45-117) 12/17/19 20:08 Troponin I < 0.015 ng/ml (0-0.045) 12/17/19 20:08 Total Protein 7.1 gm/dl (6.4-8.2) 12/17/19 20:08 Albumin 3.9 gm/dl (3.4-5.0) 12/17/19 20: Globulin 3.2 gm/dl (2.5-4.0) 12/17/19 20: Albumin/Globulin Ratio 1.2 (0.9-2) 12/17/19 20: TSH 3.320 uIu/ml (0.300-4.500) 12/17/19 20: Urine Color Yellow 12/17/19:30 Urine Appearance Cloudy (Clear) A 12/17/19:30 Urine pH 5.5 (4.5-7.5) 12/17/19 22:30 Ur Specific [place] 1.020 (1.000-1.030) 12/17/19:30 Urine Protein Negative (Negative) 12/17/19 22:30 Urine Glucose (UA) Negative (Negative) 12/17/19 22:30 Urine Ketones Negative (Negative) 12/17/19:30 Urine Blood Trace (Negative) H 12/17/19:30 Urine Nitrite Positive (Negative) A 12/17/19 22:30 Urine Bilirubin Negative (Negative) 12/17/19:30 Urine Urobilinogen Negative (Negative) 12/17/19:30 Ur Leukocyte Esterase 2+ (Negative) H 12/17/19 22:30 Urine WBC (Auto) >30 /hpf (0-5) H 12/17/19 22:30 Urine RBC (Auto) 0-4 /hpf (0-4) 12/17/19:30 U Hyaline Cast (Auto) 10-30 /lpf (0-5) H 12/17/19:30 U Epithel Cells (Auto) 0-5 /lpf (0-5) 12/17/19 22:30 Urine Bacteria (Auto) 3+ (Negative) H 12/17/19 22:[address] head: No acute intracranial findings CT cervical spine: No evidence of acute fracture or traumatic subluxation. CT pelvis: 1. Acute left inferior ischiopubic ring fracture. 2. No evidence of SI joint diastases. No evidence of symphysis diastases. 3. Total left hip arthroplasty. 4. Osteopenia Chest x-ray : Chronic changes . No acute findings. EKG as per my interpretation : Rate 95, NSR, normal axis, incomplete RBBB, T wave abnormality septal leads
[2019-12-18] MEDS ORDERED: SODIUM CHLORIDE 0.9% 1000ML 1,000 ML IV ONE (01:05)
[2019-12-18] MEDS ORDERED: IBUPROFEN 200 MG TAB PO PRN (01:05)
[2019-12-18] MEDS ORDERED: PANTOprazole 40 MG TAB PO PRN (01:05)
[2019-12-18 01:23] LABS: Creatine Kinase 50 U/L (26-192)
[2019-12-18] MEDS: TRAZODONE HCL 50 MG TAB PO SCH ×2 (01:46→21:12)
[2019-12-18] MEDS: TEMAZEPAM 15 MG CAPSULE PO PRN ×2 (02:19→21:12)
[2019-12-18] MEDS: KETOROLAC TROMETHAMINE 15 MG/ML VIAL IV PRN ×2 (02:19→08:35)
[2019-12-18] MEDS: AMITRIPTYLINE HCL 25 MG TAB PO SCH (02:40)
[2019-12-18 06:55] LABS: Basophils # (auto) 0.11 K/uL (0-0.2); Basophils % (auto) 1.3 %; Eosinophils # (auto) 0.46 K/uL (0-0.5); Eosinophils % (auto) 5.3 %; Hematocrit (blood only) 25.4 % (37-47); Hemoglobin 7.9 g/dL (12.0-16.0); Immature Granulocytes # (auto) 0.04 K/uL (0.00-0.02); Immature Granulocytes % (auto) 0.5 %; Lymphocytes # (auto) 2.24 K/uL (1.2-3.4); Lymphocytes % (auto) 25.7 %; Mean Corpuscular Hemoglobin 35.4 pg (25-34); Mean Corpuscular Hgb Conc 31.1 g/dL (32-36); Mean Corpuscular Volume 113.9 fL (80-100); Mean Platelet Volume 11.8 fL (7.4-10.4); Monocytes # (auto) 0.85 K/uL (0.11-0.59); Monocytes % (auto) 9.8 %; Neutrophils % (auto) 57.4 %; Platelet Count 784 K/uL (130-400); RDW Coefficient of Variation 29.9 % (11.5-14.5); Red Blood Count 2.23 M/uL (4.2-5.4)
[2019-12-18 07:15] LABS: Anisocytosis Present; Basophilic Stippling 1+; Giant Platelets 2+; Macrocytosis Present; Target Cells 1+
[2019-12-18 07:28] LABS: BUN Creatinine Ratio 30.9 (10-20); Calcium 7.9 mg/dl (8.5-10.1); Creatinine Clr Calc Pharmacy 37.7 ml/min; Est GFR (African American) 63.7; Potassium 4.8 mmol/L (3.5-5.1)
[2019-12-18] MEDS: UMECLIDINIUM BROMIDE 62.5MCG/BLISTER 7 PUFFS/INHALER INH SCH (08:31)
[2019-12-18] MEDS: FLUTICASONE/VILANTEROL 100/25MCG 14 PUFFS/INHALER INH SCH (08:31)
[2019-12-18] MEDS: HYDROXYUREA 500 MG CAP PO SCH (08:31)
[2019-12-18] MEDS: PREGABALIN 75 MG CAP PO SCH ×2 (08:32→21:12)
[2019-12-18] MEDS: ENOXAPARIN INJ 30 MG/0.3 ML SYR SQ SCH (08:32)
[2019-12-18] MEDS: NICOTINE 21 MG/24 HR TDSY TD SCH (08:32)
[2019-12-18] MEDS: PROMETHAZINE HCL 12.5 MG in SODIUM CHLORIDE 0.9% 50 ML IV PRN ×2 (08:48→17:11)
--- NOTE | 2019-12-18 10:55 | Orthopedic Consultation ---
Date of Consultation December 18, 2019 Assessment & Plan (1) Closed fracture of inferior pubic ramus: Acute left inferior ischio pubic ring fracture with old left periprosthetic proximal femur fracture noted. Case discussed with Dr. Adams. Patient's pain is controlled at this time at rest however states she has moderate pain with attempting to get out of bed and to ambulate. X-rays reviewed and we will make the patient partial weightbearing on the left lower extremity at this time. There does not appear to be any new extension of the old periprosthetic femur fracture. There appears to be no subsidence. Discussed that she would need to participate in physical and occupational therapies. I will add tramadol for pain control at this time. Patient also requesting Zofran for nausea. Depending on patient's ability to ambulate, she may require a Rehab versus fci facility stay prior to going home. Follow-up with [facility] (Jose Lopez PA-C/Dr. Bryan VILLARREAL) in 2 weeks for repeat x-rays. Thank you for this consult History of Present Illness Reason for Consultation: Pelvic fracture Attending Physician: Doreen Wilkins MD History of Present Illness Patient is a 79-year-old white female known to our practice who is status post left total hip arthroplasty in October [address] Amari Avendaño. Following that in May 2017, she had a fall which caused a nondisplaced periprosthetic femur fracture as well as a distal radius fracture that was treated conservatively. Currently the patient states that she was in her household prior to admission. She lives with her daughter and states that she was reaching for a bowl whenever she had a syncopal episode. She is unsure how long she had been on the floor. When she tried to get up and ambulate, she had pain in her left pelvis and groin area. She was brought to the emergency room here and x-rays were taken. Plain films did not show any obvious new fractures. CT of the left hip and pelvis were performed and showed the old periprosthetic femur fracture also a new inferior left ischio pubic ring fracture. Patient was admitted for pain control and physical therapy. We have been asked to see her for her pelvic fracture. Allergies Allergy/AdvReac Type Severity Reaction Status Date / Time latex Allergy Intermediate HIVES Verified 12/17/19 20:19 nickel Allergy Intermediate Hives/Itchi Verified 12/17/19 20:19 ness Iodinated Contrast Media AdvReac Mild Diarrhea Verified 12/17/19 20:19 [Iodinated Contrast- Oral and IV Dye] Lobster Allergy Severe HIVES Uncoded 12/17/19 20:19 Home Medications Home Medications Medication Instructions Recorded Confirmed Type hydroxyurea [Hydrea] 500 mg PO DAILY 06/06/18 12/17/19 History pantoprazole [Protonix] 40 mg PO BID PRN 06/06/18 12/17/19 History pregabalin [Lyrica] 75 mg PO BID 06/06/18 12/17/19 History temazepam [Restoril] 30 mg PO HS PRN 06/06/18 12/17/19 History albuterol sulfate 2.5 mg INHALATION Q4H PRN 12/17/19 12/17/19 History albuterol sulfate [Ventolin HFA] 2 puff INHALATION QID PRN 12/17/19 12/17/19 History amitriptyline 75 mg PO HS 12/17/19 12/17/19 History fluticasone propion-salmeterol 1 inh INHALATION BID 12/17/19 12/17/19 History loperamide See Rx Instructions .ROUTE 12/17/19 12/17/19 History .COMPLEX PRN olopatadine 1 drp OPB BID PRN 12/17/19 12/17/19 History tiotropium bromide [Spiriva with 1 cap INHALATION DAILY 12/17/19 12/17/19 History HandiHaler] trazodone 50 mg PO HS 12/17/19 12/17/19 History Patient History Medical History Anemia (Chronic) CKD (chronic kidney disease), stage III (Chronic) COPD (chronic obstructive pulmonary disease) (Chronic) COPD exacerbation (Resolved) Essential thrombocythemia (Chronic) Fracture of radial neck, left, closed (Resolved) History of breast cancer (Chronic) History of MRSA infection (Chronic) "left hip wound" History of peptic ulcer disease (Chronic) IBS (irritable bowel syndrome) (Chronic) Diarrhea predominant ; follows with GI Leukocytosis (Chronic) 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) Myelodysplastic syndrome (Chronic) Myelodysplastic syndrome (Chronic) Pelvic fracture S/P ORIF (open reduction internal fixation) fracture (Chronic) Thrombocytosis (Chronic) Surgical History H/O mastectomy (Chronic) right side H/O: hysterectomy (Chronic) History of cholecystectomy (Chronic) Status post cholecystectomy (Chronic) Status post hysterectomy (Chronic) Status post mastectomy (Chronic) "modified right mastectomy 1990" Status post total hip replacement, left (Chronic) Family History Other Unknown family medical history Social History Preferred Language: Bahamian Communication Ability: Effective Pulmonary Function Technician Required: Yes Beliefs That Will Affect Care: None marital status: / Current Living Situation: Family Other Information That Helps Us Care for You: No Feels Safe at Home: Yes Safety Concerns: Feels Safe At This Time Smoking Status: Never smoker Tobacco Type: e-cigarettes ; Second Hand Exposure: No ; Hx Alcohol Use: No Hx Substance Use: No Physical Exam Physical Exam: On examination, the patient is awake and alert. She states she is having some mild nausea this morning and a headache. She states that her pelvic pain is fairly well controlled at rest but states it increases with attempting to get out of bed and putting weight on the left lower extremity. Initial focus is on the left lower extremity. Leg lengths appear equal. She has no overt ecchymosis noted at the left hip knee or ankle. She is moderately tender over the left lateral hip. She is able to do active range of motion of the left hip with minimal discomfort. Passive range of motion through flexion, extension, internal/external rotation, abduction, and adduction not cause her moderate or severe pain. Axial loading by applying moderate pressure to the heel causes her some discomfort in the left groin. As she shifts her weight during the exam to change her position, she does have mild to moderate pain in the left groin. Right lower extremity is unaffected at this time and she has good range of motion of the right hip knee and ankle. Distal pulses of the lower extremities are diminished at the dorsalis pedis but present. He denies any decreased sensation in the lower extremities. Upper extremities are essentially within normal limits. She has some mild tenderness at the left shoulder but passive range of motion of the left shoulder does not cause her any pain at this time. She is able to do active range of motion of the left shoulder but does complain of some left elbow pain during this time where a noted area of ecchymosis is over the lateral elbow. She is able to go through flexion extension of the elbow without increased pain. Right upper extremity is essentially within normal limits with range of motion and is nontender. Distal pulses of the upper extremities are equal bilaterally. Denies any cervical, thoracic, low back pain at this time. No gross motor or sensory loss at this time. Results & Data ([facility]) Vital Signs (Past 12 Hours) Vital Signs Temp Pulse Pulse Resp BP BP Pulse Ox 12/18/19 10:50 98 H 12/18/19 07:32 36.9 C 100 H 20 96/62 L 91 12/18/19 01:00 36.7 C 102 H 99 H 18 123/72 95 12/18/19 00:36 98 H 14 118/62 94 12/18/19 00:00 96 H 25 H 12/17/19 23:30 95 H 21 12/17/19 23:00 104 H 17 118/63 Diagnostic Findings Patient: FRANK RACHEL Date: 12/17/19 MR#: [id number]: [address] TIFF[address] EVANS Acct ID:[id number]: Date: 1940[facility] Zip: [place] [address] Age: 79Location: ED Sex: F Room/Bed: Att Phy:Diagnosis: HIP & PELVIC PAIN, SYNCOPE & FALL YESTERDAY Malena Phy: Valerie Chavez, MDService Date: 12/17/19 Fam Phy:Interpreting Phy: Sher Lira MD Admit Phy: Ordering Phy: Vance Roberts DO cc: ~ CT pelvis wo con CT DOSE: CLINICAL HISTORY: Pelvic pain status post trauma TECHNIQUE: Helical images were acquired in the transverse plane. Sagittal and coronal reformatted images were acquired. A dose lowering technique was utilized adhering to the principles of ALARA. COMPARISON STUDY: January 2019 FINDINGS: There is a partially visualized 5 cm right renal cyst. There is no ascites. The bones are osteopenic. There are postsurgical changes of a total left hip arthroplasty. There are fractures of the left inferior pubic ramus. There is no evidence for SI joint diastases. There is no evidence for symphysis diastases. There is a stable periprosthetic fracture involving the medial cortex of the subtrochanteric left femur. IMPRESSION: 1. Acute left inferior ischiopubic ring fracture. 2. No evidence of SI joint diastases. No evidence of symphysis diastases. 3. Total left hip arthroplasty. 4. Osteopenia (1) Closed fracture of inferior pubic ramus Encounter type: initial encounter Laterality: left Qualified Code(s): S32.592A - Other specified fracture of left pubis, initial encounter for closed fracture
[2019-12-18] MEDS ORDERED: ARTIFICIAL TEARS OP PRN (11:33)
[2019-12-18] MEDS: ONDANSETRON INJ 2 MG/ML 2 ML VIAL IV PRN ×2 (12:11→19:31)
[2019-12-18] MEDS: TRAMADOL HCL 50 MG TABLET PO PRN ×3 (12:12→20:52)
--- NOTE | 2019-12-18 13:26 | Hospitalist Progress Note ---
Date of Service December 18, 2019 Assessment & Plan (1) Closed fracture of inferior pubic ramus: secondary to fall CT of pelvis as above : non displaced ac left ant ischiopubic ring facture appreciate input from Orthopedics no surgery needed partial wt bearing on left lower ext as tolerated PT/OT follow up at orthopedics clinic in 2 weeks for repeat Xray (2) Myelodysplastic syndrome: possible leading to chronic anemia cont Hydrea follow CBC (3) Syncope: possibly due to symptomatic anemia pt reports for feeling dizzy and lightheaded , anytime her Hb is low yvonne dizzy while reaching down to tow picker a bowl and lost balance , last PRBC tx on Fall 2018 Hb 7.9 will repeat lab in AM , tx for Hb < 7.5 or for symptom UTI : urine culture : gram negative bacilli cont IV Rocephin DVT PROPHYLAXIS: Sc lovenox DISPOSITION : lives at home with daughter PT/OT eval to assess functional decline Admission and Anticipated Discharge Date Admission Date: December 17, 2019 Subjective sitting up on chair offers no pain complains of nausea -started to experience since this AM no vomiting no complain of abdominal pain no diarrhea or loose stool no fever or chill no dizzy spell or lightheadedness Review of Systems Review of Systems: All systems reviewed & are unremarkable except as noted in HPI & below Constitutional: no fever and no chills Respiratory: no cough, no dyspnea and no wheezing Cardiovascular: no chest pain, no orthopnea, no palpitations, no lightheaded ness, no syncope and no edema Gastrointestinal: + nausea; no abdominal pain, no vomiting and no diarrhea/loose stools Physical Exam Constitutional: WD/WN, vitals as above + thin; no acute distress Eyes: PERRL, conjunctivae normal, anicteric sclerae ENMT: external ear and nose normal, oropharynx normal Neck: trachea midline, no thyromegaly Respiratory: normal respiratory effort, lungs clear to auscultation Cardiovascular: RRR, no murmur, no edema Gastrointestinal (Abdomen): Inspection/Auscultation: normal bowel sounds Percussion/Palpation: abdomen soft; abdomen nontender Musculoskeletal: Extremities: + limited ROM of extremities (left hip and groin pain ) Skin: no rashes, warm and dry Neurologic: PERRL, EOMI, accommodation nl, no face palsy, no dysarthria Psychiatric: A+Ox3, euthymic affect Results & Data Results & Data ([facility]) Vital Signs (Past 12 Hours) Vital Signs Temp Pulse Pulse Resp BP Pulse Ox 12/18/19 11:38 36.7 C 105 H 20 117/71 89 L 12/18/19 10:50 98 H 12/18/19 07:32 36.9 C 100 H 20 96/[address] pelvis wo con FINDINGS: There is a partially visualized 5 cm right renal cyst. There is no ascites. The bones are osteopenic. There are postsurgical changes of a total left hip arthroplasty. There are fractures of the left inferior pubic ramus. There is no evidence for SI joint diastases. There is no evidence for symphysis diastases. There is a stable periprosthetic fracture involving the medial cortex of the subtrochanteric left femur. IMPRESSION: 1. Acute left inferior ischiopubic ring fracture. 2. No evidence of SI joint diastases. No evidence of symphysis diastases. 3. Total left hip arthroplasty. 4. Osteopenia (1) Closed fracture of inferior pubic ramus Encounter type: initial encounter Laterality: left Qualified Code(s): S32.592A - Other specified fracture of left pubis, initial encounter for closed fracture (2) Syncope Syncope type: unspecified Qualified Code(s): R55 - Syncope and collapse
--- NOTE | 2019-12-18 14:23 | Electrocardiogram Report ---
Test Reason : Blood Pressure : / mmHG Vent. Rate : 095 BPM Atrial Rate : 095 BPM P-R Int : 152 ms QRS Dur : 092 ms QT Int : 358 ms P-R-T Axes : 078 082 071 degrees QTc Int : 449 ms Sinus rhythm with marked sinus arrhythmia Incomplete right bundle branch block T wave abnormality, consider anterior ischemia Abnormal ECG When compared with ECG of 30-JUN-2019 23:34, No significant change was found Confirmed by Rober Akins ([id number]) on 12/18/2019 2:22:56 PM Referred By: REFERRED SELF Confirmed By:Rober Akins
[2019-12-18] MEDS ORDERED: AMITRIPTYLINE HCL 25 MG TAB PO SCH (21:00)
[2019-12-18] MEDS ORDERED: cefTRIAXone SODIUM 1,000 MG/50 ML BAG IV SCH (22:30)
[2019-12-19] MEDS: ONDANSETRON INJ 2 MG/ML 2 ML VIAL IV PRN ×3 (01:40→14:35)
[2019-12-19] MEDS: TRAMADOL HCL 50 MG TABLET PO PRN ×4 (01:40→17:26)
[2019-12-19 06:56] LABS: Hematocrit (blood only) 24.9 % (37-47); Hemoglobin 7.7 g/dL (12.0-16.0); Mean Corpuscular Hgb Conc 30.9 g/dL (32-36); Mean Corpuscular Volume 113.2 fL (80-100); Mean Platelet Volume 11.8 fL (7.4-10.4); Nucleated RBC # (auto) 0.07 K/uL (0-0); Nucleated RBC % (auto) 0.6 %; Platelet Count 853 K/uL (130-400); RDW Coefficient of Variation 29.9 % (11.5-14.5); RDW Standard Deviation 122.8 fL (36.4-46.3)
[2019-12-19] MEDS: FLUTICASONE/VILANTEROL 100/25MCG 14 PUFFS/INHALER INH SCH (08:08)
[2019-12-19] MEDS: UMECLIDINIUM BROMIDE 62.5MCG/BLISTER 7 PUFFS/INHALER INH SCH (08:08)
[2019-12-19] MEDS: HYDROXYUREA 500 MG CAP PO SCH (08:09)
[2019-12-19] MEDS: NICOTINE 21 MG/24 HR TDSY TD SCH (08:09)
[2019-12-19] MEDS: ENOXAPARIN INJ 30 MG/0.3 ML SYR SQ SCH (08:09)
[2019-12-19] MEDS: PREGABALIN 75 MG CAP PO SCH ×2 (08:09→20:24)
[2019-12-19] MEDS ORDERED: SODIUM CHLORIDE 0.9% 250 ML IV PRN (11:34)
--- NOTE | 2019-12-19 17:15 | Hospitalist Progress Note ---
Date of Service December 19, 2019 Assessment & Plan (1) Closed fracture of inferior pubic ramus: secondary to fall CT of pelvis as above : non displaced ac left ant ischiopubic ring facture appreciate input from Orthopedics no surgery needed partial wt bearing on left lower ext as tolerated PT/OT eval appreciated recommends pt may return home with home health /home PT follow up at orthopedics clinic in 2 weeks for repeat Xray (2) Myelodysplastic syndrome: possible leading to chronic anemia cont Hydrea ordered for 1 unit of PRBC tx today (3) Syncope: possibly due to symptomatic anemia pt reports for feeling dizzy and lightheaded , anytime her Hb is low yvonne dizzy 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 and lost balance , last PRBC tx on Fall 2018 HB 7,7 pt remains symptomatic ordered for 1 unit PRBC tx follow H&H in AM UTI : urine culture : gram negative bacilli /Klebsiella Abx changed to PO Cefalexin 500 mg BID for total 7 days DVT PROPHYLAXIS: Sc lovenox DISPOSITION : lives at home with daughter plan for return home with daughter in next 24-48 days if remains medically stable Admission and Anticipated Discharge Date Admission Date: December 17, 2019 Subjective nausea has resolved no cough or fever or chills hip pain getting better no complain of SOB or LAINEZ feels comfortable Review of Systems Review of Systems: All systems reviewed & are unremarkable except as noted in HPI & below Physical Exam Constitutional: WD/WN, vitals as above + thin; no acute distress Eyes: PERRL, conjunctivae normal, anicteric sclerae ENMT: external ear and nose normal, oropharynx normal Neck: trachea midline, no thyromegaly Respiratory: normal respiratory effort, lungs clear to auscultation Cardiovascular: RRR, no murmur, no edema Gastrointestinal (Abdomen): Inspection/Auscultation: normal bowel sounds Percussion/Palpation: abdomen soft; abdomen nontender Musculoskeletal: Extremities: + limited ROM of extremities (left hip and groin pain ) Skin: no rashes, warm and dry Neurologic: PERRL, EOMI, accommodation nl, no face palsy, no dysarthria Psychiatric: A+Ox3, euthymic affect Results & Data Results & Data ([facility]) Vital Signs (Past 12 Hours) Vital Signs Temp Pulse Resp BP BP Pulse Ox 12/19/19 07:21 36.8 C 90 20 112/62 92 12/19/19 04:34 37.0 C 95 H 18 94/47 L 93 (1) Closed fracture of inferior pubic ramus Encounter type: initial encounter Laterality: left Qualified Code(s): S32.592A - Other specified fracture of left pubis, initial encounter for closed fracture (2) Syncope Syncope type: unspecified Qualified Code(s): R55 - Syncope and collapse
[2019-12-19] MEDS: cephALEXin 500 MG CAP PO SCH (20:24)
[2019-12-19] MEDS: TRAZODONE HCL 50 MG TAB PO SCH (20:24)
[2019-12-19] MEDS: AMITRIPTYLINE HCL 25 MG TAB PO SCH (20:25)
[2019-12-19] MEDS: TEMAZEPAM 15 MG CAPSULE PO PRN (21:05)
[2019-12-20] MEDS ORDERED: METOPROLOL TARTRATE 1 MG/ML VIAL IV STA (06:15)
[2019-12-20] MEDS: FLUTICASONE/VILANTEROL 100/25MCG 14 PUFFS/INHALER INH SCH (07:59)
[2019-12-20] MEDS: ENOXAPARIN INJ 30 MG/0.3 ML SYR SQ SCH (07:59)
[2019-12-20] MEDS: HYDROXYUREA 500 MG CAP PO SCH (07:59)
[2019-12-20] MEDS: PREGABALIN 75 MG CAP PO SCH ×2 (07:59→21:23)
[2019-12-20] MEDS: cephALEXin 500 MG CAP PO SCH ×2 (08:00→21:23)
[2019-12-20] MEDS: UMECLIDINIUM BROMIDE 62.5MCG/BLISTER 7 PUFFS/INHALER INH SCH (08:00)
[2019-12-20] MEDS: NICOTINE 21 MG/24 HR TDSY TD SCH (08:00)
[2019-12-20] MEDS ORDERED: SODIUM CHLORIDE 0.9% 1000ML 250 ML IV ONE (10:58)
[2019-12-20 11:01] LABS: Hematocrit (blood only) 27.3 % (37-47); Hemoglobin 8.5 g/dL (12.0-16.0)
[2019-12-20] MEDS: ONDANSETRON INJ 2 MG/ML 2 ML VIAL IV PRN (13:45)
[2019-12-20] MEDS: TRAMADOL HCL 50 MG TABLET PO PRN (13:51)
[2019-12-20] MEDS: PROMETHAZINE HCL 12.5 MG in SODIUM CHLORIDE 0.9% 50 ML IV PRN (16:22)
--- NOTE | 2019-12-20 18:12 | Hospitalist Progress Note ---
Date of Service December 20, 2019 Assessment & Plan (1) Closed fracture of inferior pubic ramus: secondary to fall CT of pelvis as above : non displaced ac left ant ischiopubic ring facture appreciate input from Orthopedics no surgery needed partial wt bearing on left lower ext as tolerated PT/OT eval appreciated recommends pt may return home with home health /home PT follow up at orthopedics clinic in 2 weeks for repeat Xray (2) Myelodysplastic syndrome: possible leading to chronic anemia cont Hydrea s/p 1 unit of PRBC tx Hb improved > 8 (3) Syncope: possibly due to symptomatic anemia pt reports for feeling dizzy and lightheaded , anytime her Hb is low yvonne 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 and lost balance , no arrythmia noted on tele episodes of hypotension noted given IV fluid , pt denies of feeling dizzy or lightheaded cont to monmitor in tele UTI : urine culture : gram negative bacilli /Klebsiella Abx changed to PO Cefalexin 500 mg BID for total 7 days DVT PROPHYLAXIS: Sc lovenox DISPOSITION : lives at home with daughter per PT/OT -can return home with home PT/home health Admission and Anticipated Discharge Date Admission Date: December 17, 2019 Subjective has been spiking temp this am feels nauseaus very poor appetite , no vomiting BP has been low , given IV fluid bolus Physical Exam Constitutional: WD/WN, vitals as above + thin; no acute distress Eyes: PERRL, conjunctivae normal, anicteric sclerae ENMT: external ear and nose normal, oropharynx normal Neck: trachea midline, no thyromegaly Respiratory: normal respiratory effort, lungs clear to auscultation Cardiovascular: RRR, no murmur, no edema Gastrointestinal (Abdomen): Inspection/Auscultation: normal bowel sounds Percussion/Palpation: abdomen soft; abdomen nontender Musculoskeletal: Extremities: + limited ROM of extremities (left hip and groin pain ) Skin: no rashes, warm and dry Neurologic: PERRL, EOMI, accommodation nl, no face palsy, no dysarthria Psychiatric: A+Ox3, euthymic affect Results & Data Results & Data ([facility]) Vital Signs (Past 12 Hours) Vital Signs Temp Pulse Pulse Resp BP BP Pulse Ox 12/20/19 16:27 36.9 C 109/71 12/20/19 15:52 37.6 C H 111 H 20 98/66 L 91 12/20/19 15:00 111 H 12/20/19 13:46 87/57 L 12/20/19 11:39 90/54 L 97 12/20/19 11:20 36.7 C 107 H 18 87/50 L 94 12/20/19 10:55 95 12/20/19 10:44 84/49 L 91 12/20/19 07:39 37.2 C 112 H 18 91/52 L 12/20/19 06:24 95/56 L 12/20/19 06:23 106 H 95/56 L 96 (1) Closed fracture of inferior pubic ramus Encounter type: initial encounter Laterality: left Qualified Code(s): S32.592A - Other specified fracture of left pubis, initial encounter for closed fracture (2) Syncope Syncope type: unspecified Qualified Code(s): R55 - Syncope and collapse
--- NOTE | 2019-12-20 19:50 | Hospitalist Progress Note ---
Date of Service December 20, 2019 Assessment & Plan Admission and Anticipated Discharge Date Admission Date: December 17, 2019 Subjective ATTENDING ADDENDUM: pt's daughter called -she has tested for COVID 19 today report will not be available till tomorrow Pt lives with her daughter Her daughter has been having symptoms of fever , chills , cough , body aches for last 4-5 days was seen by her PCP today at [facility] COVID 19 test is ordered pt is hospitalized for past 3 days having fever , was hypoxic this morning ordered for COVID 19 test pt will be placed on Droplet isolation till then will order CT Chest for fever and hypoxia Doreen Wilkins MD Results & Data Results & Data ([facility]) Vital Signs (Past 12 Hours) Vital Signs Temp Pulse Pulse Resp BP Pulse Ox 12/20/19 19:29 38.1 C H 107 H 18 110/67 93 12/20/19 16:27 36.9 C 109/71 12/20/19 15:52 37.6 C H 111 H 20 98/66 L 91 12/20/19 15:00 111 H 12/20/19 13:46 87/57 L 12/20/19 11:39 90/54 L 97 12/20/19 11:20 36.7 C 107 H 18 87/50 L 94 12/20/19 10:55 95 12/20/19 10:44 84/49 L 91
[2019-12-20] MEDS ORDERED: ACETAMINOPHEN 325 MG TAB PO PRN (20:00)
[2019-12-20 20:38] LABS: Basophils # (auto) 0.07 K/uL (0-0.2); Basophils % (auto) 0.4 %; Eosinophils # (auto) 0.06 K/uL (0-0.5); Eosinophils % (auto) 0.4 %; Hematocrit (blood only) 24.5 % (37-47); Immature Granulocytes # (auto) 0.12 K/uL (0.00-0.02); Immature Granulocytes % (auto) 0.7 %; Lymphocytes % (auto) 12.3 %; Mean Corpuscular Hemoglobin 34.8 pg (25-34); Mean Corpuscular Volume 106.5 fL (80-100); Monocytes # (auto) 1.35 K/uL (0.11-0.59); Monocytes % (auto) 8.3 %; Neutrophils # (auto) 12.67 K/uL (1.4-6.5); Neutrophils % (auto) 77.9 %; Nucleated RBC # (auto) 0.13 K/uL (0-0); Nucleated RBC % (auto) 0.8 %; Platelet Count 928 K/uL (130-400); RDW Coefficient of Variation 31.1 % (11.5-14.5); RDW Standard Deviation 113.4 fL (36.4-46.3); White Blood Count 16.27 K/uL (4.8-10.8)
[2019-12-20 20:55] LABS: BUN Creatinine Ratio 59.9 (10-20); Calcium 8.3 mg/dl (8.5-10.1); Creatinine Clr Calc Pharmacy 42.3 ml/min; Est GFR (African American) 73.5; Est GFR (Non-African American) 63.4; Potassium 4.7 mmol/L (3.5-5.1)
[2019-12-20 20:58] LABS: Bilirubin,Total 0.4 mg/dl (0.2-1); Globulin 3.1 gm/dl (2.5-4.0); Total Protein 6.1 gm/dl (6.4-8.2)
[2019-12-20 21:03] LABS: D Dimer 1260 ug/L FEU (0-500)
[2019-12-20 21:07] LABS: Mean Corpuscular Hgb Conc 32.7 g/dL (32-36)
[2019-12-20 21:10] LABS: Anisocytosis Present; Basophilic Stippling 1+; Poikilocytosis Present
[2019-12-20] MEDS: AMITRIPTYLINE HCL 25 MG TAB PO SCH (21:23)
[2019-12-20] MEDS: TRAZODONE HCL 50 MG TAB PO SCH (21:24)
[2019-12-20] MEDS: TEMAZEPAM 15 MG CAPSULE PO PRN (21:29)
[2019-12-20 22:52] LABS: Adenovirus PCR Not Detected (NotDetected); Bordetella parapertussis PCR Not Detected (NotDetected); Bordetella pertussis PCR Not Detected (NotDetected); Chlamydia pneumoniae PCR Not Detected (NotDetected); Coronavirus 229E PCR Not Detected (NotDetected); Coronavirus HKU1 PCR Not Detected (NotDetected); Coronavirus NL63 PCR Not Detected (NotDetected); Coronavirus OC43PCR Not Detected (NotDetected); Human Metapneumovirus PCR Not Detected (NotDetected); Influenza A PCR Not Detected (NotDetected); Influenza B PCR Not Detected (NotDetected); Mycoplasma pneumoniae PCR Not Detected (NotDetected); Parainfluenza Virus 1 PCR Not Detected (NotDetected); Parainfluenza Virus 2 PCR Not Detected (NotDetected); Parainfluenza Virus 3 PCR Not Detected (NotDetected); Parainfluenza Virus 4 PCR Not Detected (NotDetected); Respiratory Syncytial VirusPCR Not Detected (NotDetected); Rhinovirus/Enterovirus PCR Not Detected (NotDetected)
[2019-12-21] MEDS: cephALEXin 500 MG CAP PO SCH ×2 (07:51→20:20)
[2019-12-21] MEDS: HYDROXYUREA 500 MG CAP PO SCH (07:51)
[2019-12-21] MEDS: UMECLIDINIUM BROMIDE 62.5MCG/BLISTER 7 PUFFS/INHALER INH SCH (07:51)
[2019-12-21] MEDS: NICOTINE 21 MG/24 HR TDSY TD SCH (07:51)
[2019-12-21] MEDS: FLUTICASONE/VILANTEROL 100/25MCG 14 PUFFS/INHALER INH SCH (07:52)
[2019-12-21] MEDS: ENOXAPARIN INJ 30 MG/0.3 ML SYR SQ SCH (07:52)
[2019-12-21] MEDS: PREGABALIN 75 MG CAP PO SCH ×2 (08:02→20:23)
[2019-12-21 08:33] LABS: Creatinine Clr Calc Pharmacy 39.7 ml/min; Est GFR (African American) 67.8; Est GFR (Non-African American) 58.5
--- NOTE | 2019-12-21 09:44 | CT Scan Report ---
CT SCAN OF THE CHEST WITHOUT IV CONTRAST CLINICAL HISTORY: Fever. Dyspnea. COMPARISON STUDY: Chest x-ray dated 12/17/2019. Chest CT dated 05/01/2006. TECHNIQUE: CT scan of the thorax was performed from the thoracic inlet to the upper abdomen. Images are reviewed in the axial, sagittal, and coronal planes. IV contrast was not administered for this ex amination as per the referring clinician. A dose lowering technique was utilized adhering to the pk Tom. CT DOSE: 198.09 mGy.cm FINDINGS: Thyroid: Imaged portions of the thyroid gland are normal in size and heterogeneous in attenuation. Thoracic aorta: There is atherosclerotic calcification of the thoracic aorta, which is normal in nelda jeremías and demonstrates standard 3-vessel arch anatomy. Heart: The heart is normal in size and without pericardial effusion. The coronary arteries are densel y calcified. There is diminished attenuation of the cardiac blood pool as compared to the myocardium suggesting anemia. Lungs and pleural spaces: There is advanced emphysema. The trachea and central airways are clear. No airspace consolidation is seen typical for pneumonia and there is no pleural effusion. Linear scarrin g/atelectasis is noted at the right lung base. A 6 mm nodule in the right middle lobe on image #210 a nd a 4 mm right upper lobe nodule on image #162 been present dating back to 2005. A 4 mm right apical nodule seen on image #49 and a 4 mm right lower lobe nodule seen on image #165 are new or increased in size from 2006. Scattered calcified granulomas are observed. Mediastinum: There is no mediastinal lymphadenopathy. Kylee: There are calcified left hilar nodes. The kylee are not well assessed without IV contrast. Axillae: Surgical clips are noted in the right axilla. There is no axillary lymphadenopathy. Upper abdomen: There is a small hiatal hernia. There is a small nonobstructing left renal calculus. Skeletal structures: The skeletal structures are osteopenic. There is a moderate compression deformit y of T12. Degenerative change is noted in the shoulders and thoracic spine. Chronic posttraumatic def ormity is seen in the left proximal humerus. No lytic or blastic bony lesions are seen. Soft tissues: The patient is cachectic. The right breast is surgically absent with a breast implant i n place. IMPRESSION: 1. Advanced emphysema. 2. There is no airspace consolidation typical for pneumonia or pleural effusion. 3. There are 4 noncalcified pulmonary nodules measuring up to 6 mm. 2 of these nodules are either new or increased in size dating back to 2005. These are pathologically indeterminant and follow-up is re commended as per the Fleischner criteria. See below. 4. Additional findings as above. Please refer to below summary of Fleischner criteria recommendations for follow-up of incidental CT n odules (Jacques Patel, Guidelines for management of small pulmonary nodules detected on CT scans: A sta tement from the Fleischner Society, Radiology 237: [id number].) SOLID NODULES Solitary nodule size: <6 mm * low risk patients: no follow-up needed * high risk patients: optional CT at 12 months Solitary nodule size: 6-8 mm * low risk patients: follow-up at 6-12 months, then consider further follow-up at 18-24 months * high risk patients: initial follow-up CT at 6-12 months and then at 18-24 months if no change Solitary nodule size: >8 mm * either low or high risk patients - consider follow-up CT at 3 months, and/or CT-PET, and/or biopsy Multiple nodules size: <6 mm * low risk patients: no routine follow-up * high risk patients: optional CT at 12 months Multiple nodules size: 6-8 mm * low risk patients: follow-up at 3-6 months, then consider further follow-up at 18-24 months * high risk patients: follow-up at 3-6 months, then at 18-24 months if no change Multiple nodules size: >8 mm * low risk patients: follow-up at 3-6 months, then consider further follow-up at 18-24 months * high risk patients: follow-up at 3-6 months, then at 18-24 months if no change Note: newly detected indeterminate nodule in persons 35 years of age or older. * low risk patients: minimal or absent history of smoking and/or other known risk factors * high risk patients: history of smoking or of other known risk factors (e.g. first degree relative with lung cancer, or exposure to asbestos, radon, uranium) * if a nodule up to 8 mm is partly solid or is ground glass further follow-up is required after 24 m onths to exclude possible slow growing adenocarcinoma (AKIN) SUBSOLID NODULES Solitary pure ground-glass nodule * nodule size <6 mm - no CT follow-up required * nodule size >=6 mm - follow-up CT at 6-12 months, then every 2 years until 5 years Solitary part-solid nodule * nodule size <6 mm - no CT follow-up required * nodule size >=6 mm - follow-up CT at 3-6 months. If unchanged, and solid component remains <6 mm, then annual follow-up for 5 years Multiple subsolid nodules * nodule size <6 mm - follow-up CT at 3-6 months, consider further follow-up at 2 and 4 years if sta ble * nodule size >=6 mm - follow-up CT at 3-6 months, subsequent management based on the most suspiciou s nodule(s) ACT 112: Negative or not required by law. Electronically signed by: Ezio Darden M.D. 12/21/2019 9:43 AM
--- NOTE | 2019-12-21 10:21 | Hospitalist Progress Note ---
Date of Service December 21, 2019 Assessment & Plan (1) Closed fracture of inferior pubic ramus: FEVER /HYPOXIA : afebrile now ABG shows no evidence of respiratory compromise , no hypoxia ( pt was on 2 L 02 via NC /not on home ) CT chest shows no infiltrate or effusion possible atelectasis ordered for incentive spirometry WBC count improved to 12 K now PRN neb tx wean down 02 with goal Spo2 > 95% no indication for antibiotic treatment now HYPOTENSION : possible due to poor PO intake also reports of multiple loose bowel movements ordered for stool for c diff given IV fluids pt's baseline SBP in [id number] ( no hx of HTN , not on any antihypertensives ) monitor in tele LUNG NODULE : incidental finding : CT chest non contrast : 1. Advanced emphysema. 2. There is no airspace consolidation typical for pneumonia or pleural effusion. 3. There are 4 noncalcified pulmonary nodules measuring up to 6 mm. 2 of these nodules are either new or increased in size dating back to 2005. These are pathologically indeterminant and follow-up is recommended as per the Fleischner criteria. See below. SOLID LUNG NODULES Solitary nodule size: 6-8 mm * low risk patients: follow-up at 6-12 months, then consider further follow-up at 18-24 months * high risk patients: initial follow-up CT at 6-12 months and then at 18-24 months if no change CLOSED FRACTURE OF INFERIOR PUBIC RAMUS : secondary to fall CT of pelvis : non displaced ac left ant ischiopubic ring facture appreciate input from Orthopedics no surgery needed partial wt bearing on left lower ext as tolerated PT/OT eval appreciated recommends pt may return home with home health /home PT follow up at orthopedics clinic in 2 weeks for repeat Xray (2) Myelodysplastic syndrome: possible leading to chronic anemia cont Hydrea s/p 1 unit of PRBC tx HB ~ 8 will add Folic acid and Vitamin B ( MCV> 100 ) (3) Syncope: possibly due to symptomatic anemia no arrythmia noted on tele episodes of hypotension noted given IV fluid , pt denies of feeling dizzy or lightheaded cont to monitor in tele UTI : urine culture : gram negative bacilli /Klebsiella Abx changed to PO Cefalexin 500 mg BID for total 7 days DVT PROPHYLAXIS: Sc lovenox DISPOSITION : lives at home with daughter per PT/OT -can return home with home PT/home health Admission and Anticipated Discharge Date Admission Date: December 17, 2019 Subjective feels much better today no cough no fever or chills nausea /abdominal pain resolved no loose stool today Physical Exam Constitutional: WD/WN, vitals as above + thin; no acute distress Eyes: PERRL, conjunctivae normal, anicteric sclerae ENMT: external ear and nose normal, oropharynx normal Neck: trachea midline, no thyromegaly Respiratory: normal respiratory effort, lungs clear to auscultation Cardiovascular: RRR, no murmur, no edema Gastrointestinal (Abdomen): Inspection/Auscultation: normal bowel sounds Percussion/Palpation: abdomen soft; abdomen nontender Musculoskeletal: Extremities: + limited ROM of extremities (left hip and groin pain ) Skin: no rashes, warm and dry Neurologic: PERRL, EOMI, accommodation nl, no face palsy, no dysarthria Psychiatric: A+Ox3, euthymic affect Results & Data Results & Data ([facility]) Vital Signs (Past 12 Hours) Vital Signs Temp Pulse Pulse Resp BP Pulse Ox 12/21/19 07:25 37.2 C 95 H 16 91/56 L 92 12/21/19 07:24 99 H 12/21/19 04:54 37.3 C 80 16 104/60 93 12/21/19 00:15 88 L 12/20/19 23:30 37.9 C H 107 H 20 94/58 L 92 12/20/19 22:20 110 H (1) Closed fracture of inferior pubic ramus Encounter type: initial encounter Laterality: left Qualified Code(s): S32.592A - Other specified fracture of left pubis, initial encounter for closed fracture (2) Syncope Syncope type: unspecified Qualified Code(s): R55 - Syncope and collapse
[2019-12-21 10:25] LABS: Basophils # (auto) 0.22 K/uL (0-0.2); Basophils % (auto) 1.8 %; Eosinophils % (auto) 2.4 %; Hematocrit (blood only) 21.6 % (37-47); Hemoglobin 7.1 g/dL (12.0-16.0); Immature Granulocytes # (auto) 0.12 K/uL (0.00-0.02); Lymphocytes # (auto) 2.56 K/uL (1.2-3.4); Lymphocytes % (auto) 20.4 %; Mean Corpuscular Hemoglobin 35.5 pg (25-34); Mean Corpuscular Hgb Conc 32.9 g/dL (32-36); Mean Platelet Volume 11.8 fL (7.4-10.4); Monocytes # (auto) 1.13 K/uL (0.11-0.59); Neutrophils # (auto) 8.24 K/uL (1.4-6.5); Neutrophils % (auto) 65.4 %; Nucleated RBC % (auto) 0.8 %; Platelet Count 728 K/uL (130-400); White Blood Count 12.57 K/uL (4.8-10.8)
--- NOTE | 2019-12-21 10:29 | Hospitalist Progress Note ---
Date of Service December 21, 2019 Assessment & Plan Admission and Anticipated Discharge Date Admission Date: December 17, 2019 Subjective ATTENDING NOTE: d dimer was elevated 1260 developed hypoxia requiring supplemental 02 CT chest non contrast : No airspace consolidation is seen typical for pneumonia and there is no pleural effusion. CTA ( CT angiogram of chest ) could not be done due to allergy issues ( pt had syncope and severe GI symptoms -diarrhea with contrast exposure in past ) given hx of Breast CA high risk for thrombo embolic event check lower extremity Doppler USG r/o DVT ECHO to assess for RT heart strain due to PE ( indirect evidence ) will check ABG -to assess for hypoxia if pt remains asymptomatic and suspicion for PE remains high will do Nuclear scan /VQ lung scan on Monday pt been on SC Lovenox for DVT prophylaxis , which will be continued Doreen Wilkins MD Results & Data Results & Data ([facility]) Vital Signs (Past 12 Hours) Vital Signs Temp Pulse Pulse Resp BP Pulse Ox 12/21/19 07:25 37.2 C 95 H 16 91/56 L 92 12/21/19 07:24 99 H 12/21/19 04:54 37.3 C 80 16 104/60 93 12/21/19 00:15 88 L 12/20/19 23:30 37.9 C H 107 H 20 94/58 L 92
[2019-12-21 10:48] LABS: Anisocytosis Present; Basophilic Stippling 1+; Polychromasia 1+
[2019-12-21 10:49] LABS: Microcytosis Present
--- NOTE | 2019-12-21 11:22 | Ultrasound Report ---
ULTRASOUND BILATERAL LOWER EXTREMITY VENOUS CLINICAL HISTORY: Elevated d-dimer. COMPARISON STUDY: No priors. TECHNIQUE: Real-time, grayscale, and color Doppler sonography of the deep veins of the right and left lower extremity was performed from the inguinal crease to the calf. Compression and augmentation wer e utilized. FINDINGS: There is no sonographic evidence of deep venous thrombosis identified in the right or left lower extremity. The common femoral, superficial femoral, and popliteal veins are patent and normally compressible bilaterally. The greater saphenous vein and the profunda femoris vein at the junction w ith the common femoral vein are clear in both legs. The visualized calf veins are patent bilaterally. IMPRESSION: There is no sonographic evidence of deep venous thrombosis identified in the right or lef t lower extremity. ACT 112: Negative or not required by law. Electronically signed by: Ezio Darden M.D. 12/21/2019 11:20 AM
[2019-12-21] MEDS: CYANOCOBALAMIN 500 MCG TABLET (VITAMIN B-12) PO SCH (11:50)
[2019-12-21] MEDS: ONDANSETRON INJ 2 MG/ML 2 ML VIAL IV PRN (11:50)
[2019-12-21 11:51] LABS: Base Excess ABG -4.1 mEq/L (-9-1.8); HCO3 ABG 21 mmol/L (19-24); Oxygen Saturation ABG 94.7 % (90-95); PCO2 ABG 39 mmHg (35-46); PO2 ABG 90 mmHg (80-95); pH ABG 7.35 (7.35-7.45)
[2019-12-21 11:52] LABS: Allen Test Pos (Pos)
[2019-12-21] MEDS: FOLIC ACID 1 MG TAB PO SCH (14:43)
[2019-12-21] MEDS: TRAMADOL HCL 50 MG TABLET PO PRN (17:07)
[2019-12-21] MEDS: LACTOBACILLUS ACIDOPHILUS (FLORANEX) TAB PO SCH ×2 (17:07→20:18)
[2019-12-21] MEDS: AMITRIPTYLINE HCL 25 MG TAB PO SCH (20:17)
[2019-12-21] MEDS: TRAZODONE HCL 50 MG TAB PO SCH (20:19)
[2019-12-21] MEDS: TEMAZEPAM 15 MG CAPSULE PO PRN (20:23)
[2019-12-22] MEDS ORDERED: SODIUM CHLORIDE 0.9% 250 ML IV PRN ×2 (01:52→02:19)
[2019-12-22 01:53] LABS: Hematocrit (blood only) 20.3 % (37-47); Hemoglobin 6.5 g/dL (12.0-16.0)
[2019-12-22] MEDS ORDERED: FUROSEMIDE 20 MG in SYRINGE 0 ML IV SCH (02:00)
[2019-12-22] MEDS ORDERED: ACETAMINOPHEN 325 MG TAB PO ONE (02:30)
[2019-12-22] MEDS: HYDROXYUREA 500 MG CAP PO SCH (08:28)
[2019-12-22] MEDS: cephALEXin 500 MG CAP PO SCH ×2 (08:28→20:54)
[2019-12-22] MEDS: FOLIC ACID 1 MG TAB PO SCH (08:28)
[2019-12-22] MEDS: CYANOCOBALAMIN 500 MCG TABLET (VITAMIN B-12) PO SCH (08:29)
[2019-12-22] MEDS: LACTOBACILLUS ACIDOPHILUS (FLORANEX) TAB PO SCH ×4 (08:29→20:53)
[2019-12-22] MEDS: NICOTINE 21 MG/24 HR TDSY TD SCH (08:29)
[2019-12-22] MEDS: FLUTICASONE/VILANTEROL 100/25MCG 14 PUFFS/INHALER INH SCH (08:30)
[2019-12-22] MEDS: UMECLIDINIUM BROMIDE 62.5MCG/BLISTER 7 PUFFS/INHALER INH SCH (08:30)
[2019-12-22] MEDS: PREGABALIN 75 MG CAP PO SCH ×2 (09:38→20:53)
[2019-12-22 13:39] LABS: Hematocrit (blood only) 29.9 % (37-47); Hemoglobin 9.8 g/dL (12.0-16.0)
[2019-12-22] MEDS: TRAMADOL HCL 50 MG TABLET PO PRN (14:39)
[2019-12-22] MEDS ORDERED: MoRPHine SULFATE 2 MG/ML CARP IV STA (15:58)
[2019-12-22] MEDS: ONDANSETRON INJ 2 MG/ML 2 ML VIAL IV PRN (16:19)
--- NOTE | 2019-12-22 16:29 | Hospitalist Progress Note ---
Date of Service December 22, 2019 Assessment & Plan (1) Closed fracture of inferior pubic ramus: ANEMIA /CONCERN FOR GI BLEED: required total 3 units of PRBC transfusion this admission stool heme occult positive GI consulted pt been evaluated by Aracelis WHITE , had EGD last year ordered for NPO past midnight follow H&H HYPOTENSION : possible due to acute blood loss anemia ? GI bleed ? BP improved after PRBC transfusion pt's baseline SBP in [id number] ( no hx of HTN , not on any antihypertensives ) monitor in tele LUNG NODULE : incidental finding : CT chest non contrast : 1. Advanced emphysema. 2. There is no airspace consolidation typical for pneumonia or pleural effusion. 3. There are 4 noncalcified pulmonary nodules measuring up to 6 mm. 2 of these nodules are either new or increased in size dating back to 2005. These are p athologically indeterminant and follow-up is recommended as per the Fleischner criteria. See below. SOLID LUNG NODULES Solitary nodule size: 6-8 mm * low risk patients: follow-up at 6-12 months, then consider further follow-up at 18-24 months * high risk patients: initial follow-up CT at 6-12 months and then at 18-24 months if no change CLOSED FRACTURE OF INFERIOR PUBIC RAMUS : secondary to fall CT of pelvis : non displaced ac left ant ischiopubic ring facture appreciate input from Orthopedics no surgery needed partial wt bearing on left lower ext as tolerated PT/OT eval appreciated recommends pt may return home with home health /home PT follow up at orthopedics clinic in 2 weeks for repeat Xray (2) Myelodysplastic syndrome: possible leading to chronic anemia cont Hydrea will add Folic acid and Vitamin B ( MCV> 100 ) (3) Syncope: possibly due to symptomatic anemia no arrythmia noted on tele episodes of hypotension noted given IV fluid , pt denies of feeling dizzy or lightheaded cont to monitor in tele UTI : urine culture : gram negative bacilli /Klebsiella Abx changed to PO Cefalexin 500 mg BID for total 7 days DVT PROPHYLAXIS: hold SC lovenox for concern of possible GI bleed DISPOSITION : lives at home with daughter per PT/OT -can return home with home PT/home health Admission and Anticipated Discharge Date Admission Date: December 17, 2019 Subjective hemoglobin drop noted to 6.5 this morning with dark heme positive stool given 2 units of PRBC transfusion pt reports of feeling better than yesterday nausea has improved no loose stool no cough . no fever or chills Physical Exam Constitutional: WD/WN, vitals as above + thin; no acute distress Eyes: PERRL, conjunctivae normal, anicteric sclerae ENMT: external ear and nose normal, oropharynx normal Neck: trachea midline, no thyromegaly Respiratory: normal respiratory effort, lungs clear to auscultation Cardiovascular: RRR, no murmur, no edema Gastrointestinal (Abdomen): Inspection/Auscultation: normal bowel sounds Percussion/Palpation: abdomen soft; abdomen nontender Musculoskeletal: Extremities: + limited ROM of extremities (left hip and groin pain ) Skin: no rashes, warm and dry Neurologic: PERRL, EOMI, accommodation nl, no face palsy, no dysarthria Psychiatric: A+Ox3, euthymic affect Results & Data Results & Data ([facility]) Vital Signs (Past 12 Hours) Vital Signs Temp Pulse Pulse Resp BP BP BP 12/22/19 16:17 36.9 C 81 17 97/60 L 12/22/19 15:00 80 12/22/19 11:25 36.5 C 83 16 101/61 12/22/19 10:27 36.7 C 80 16 96/56 L 12/22/19 09:25 36.6 C 87 18 94/57 L 12/22/19 08:55 36.7 C 89 18 93/59 L 12/22/19 08:10 36.4 C L 99 H 18 94/63 L 12/22/19 07:51 36.4 C L 97 H 18 100/62 12/22/19 07:34 36.5 C 96 H 16 97/61 L 12/22/19 07:24 95 H 12/22/19 06:24 36.5 C 96 H 14 103/63 12/22/19 05:30 36.7 C 100 H 14 97/58 L 12/22/19 04:30 36.7 C 105 H 14 97/60 L Pulse Ox 12/22/19 16:17 94 12/22/19 15:00 12/22/19 11:25 97 12/22/19 10:27 95 12/22/19 09:25 93 12/22/19 08:55 94 12/22/19 08:10 90 12/22/19 07:51 96 12/22/19 07:34 93 12/22/19 07:24 12/22/19 06:24 93 12/22/19 05:30 93 12/22/19 04:30 97 (1) Closed fracture of inferior pubic ramus Encounter type: initial encounter Laterality: left Qualified Code(s): S32.592A - Other specified fracture of left pubis, initial encounter for closed fracture (2) Syncope Syncope type: unspecified Qualified Code(s): R55 - Syncope and collapse
[2019-12-22] MEDS: MoRPHine SULFATE 2 MG/ML CARP IV PRN (19:54)
[2019-12-22] MEDS: TEMAZEPAM 15 MG CAPSULE PO PRN (20:53)
[2019-12-22] MEDS: AMITRIPTYLINE HCL 25 MG TAB PO SCH (20:53)
[2019-12-22] MEDS: TRAZODONE HCL 50 MG TAB PO SCH (20:54)
[2019-12-22] MEDS ORDERED: PANTOprazole 40 MG TAB PO SCH (21:00)
[2019-12-23] MEDS ORDERED: TRAMADOL HCL 50 MG TABLET PO STA (04:01)
[2019-12-23 06:35] LABS: Cdiff Antigen Negative; Cdiff Toxin A+B Negative Cdiff Toxin (Negative)
[2019-12-23 07:19] LABS: Hematocrit (blood only) 24.3 % (37-47); Mean Corpuscular Hemoglobin 33.3 pg (25-34); Mean Corpuscular Hgb Conc 32.9 g/dL (32-36); Mean Corpuscular Volume 101.3 fL (80-100); Mean Platelet Volume 11.7 fL (7.4-10.4); Nucleated RBC # (auto) 0.13 K/uL (0-0); Nucleated RBC % (auto) 0.9 %; Platelet Count 785 K/uL (130-400); RDW Coefficient of Variation 26.8 % (11.5-14.5); RDW Standard Deviation 88.4 fL (36.4-46.3); White Blood Count 13.74 K/uL (4.8-10.8)
[2019-12-23] MEDS: FLUTICASONE/VILANTEROL 100/25MCG 14 PUFFS/INHALER INH SCH (07:29)
[2019-12-23] MEDS: UMECLIDINIUM BROMIDE 62.5MCG/BLISTER 7 PUFFS/INHALER INH SCH (07:29)
[2019-12-23] MEDS: NICOTINE 21 MG/24 HR TDSY TD SCH (07:30)
[2019-12-23 07:44] LABS: BUN Creatinine Ratio 54.6 (10-20); Calcium 8.3 mg/dl (8.5-10.1); Creatinine Clr Calc Pharmacy 36.4 ml/min; Est GFR (African American) 63.7; Potassium 4.7 mmol/L (3.5-5.1)
[2019-12-23] MEDS ORDERED: SODIUM CHLORIDE 0.9% 1000ML 250 ML IV ONE (08:19)
[2019-12-23] MEDS ORDERED: SODIUM CHLORIDE 0.9% 1000ML 1,000 ML IV SCH (08:30)
--- NOTE | 2019-12-23 08:43 | Hospitalist Progress Note ---
Date of Service December 23, 2019 Assessment & Plan Admission and Anticipated Discharge Date Admission Date: December 17, 2019 Subjective ATTENDING NOTE: per nursing note : pt had large dark red bloody bowel movement around 4:30 am been NPO for GI eval this morning ( was found to markedly anemic requiring 3 Units of PRBC tx -2 units in 12/18 , 1 unit in 12/21 ) this morning continued to have dark bloody bowel movement hypotensive BP 80/50 ordered for IV NSS bolus then continue with NSS 125ml/hr AM H&H : 04/27 stool C diff : Gene Positive /negative S diff toxin given ongoing bloody bowel movement will start on PO Vancomycin contact isolation cont strict NPO ordered for IV PPI gtt case D/w with GI pt is transferred to PCU for close monitoring of hemodynamics in setting of active GI Bleed Doreen Wilkins MD Results & Data Results & Data ([facility]) Vital Signs (Past 12 Hours) Vital Signs Temp Pulse Pulse Resp BP Pulse Ox 12/23/19 08:25 36.9 C 96 H 16 89/55 L 92 12/23/19 05:49 80 12/23/19 04:13 37 C 110 H 20 96/59 L 92 12/22/19 23:11 37.1 C 90 18 90/56 L 91
[2019-12-23] MEDS ORDERED: PANTOprazole 80 MG in DEXTROSE 5% 100 ML IV ONE (08:45)
[2019-12-23] MEDS: PANTOprazole 40 MG in DEXTROSE 5% 100 ML IV SCH ×3 (08:59→22:00)
[2019-12-23] MEDS: VANCOMYCIN HCL 500 MG/10 ML SOLN PO SCH ×4 (09:39→23:29)
[2019-12-23] MEDS: RASPBERRY SYRUP 5 ML UDP PO SCH ×4 (09:39→23:29)
--- NOTE | 2019-12-23 09:39 | Gastrointestinal Consultation ---
Date of Consultation December 23, 2019 Assessment & Plan (1) Abdominal pain: Epigastric pain Present on Admission?: Yes (2) Anemia: Acute anemia secondary to rectal bleeding. Present on Admission?: Yes (3) Rectal bleeding: EGD today for rectal bleeding. PPI drip. Further recommendations to follow EGD. Present on Admission?: Yes Supervising Physician Co-Signing Physician Notes I have seen and examined the patient with BRIANNE Dawkins whose note reflects our findings and plan. Patient on NSIADS at home. Has a history of PUD. Admitted with urosepsis and fall resulting in pelvic fracture. Noted overnight to have rubi stool. Received total of 2 units of blood this hospitalization. hgb is 8 this AM. - EGD to be done this AM. - Continue with PPI gtt. - NPO History of Present Illness Reason for Consultation: Rectal bleeding Requesting Physician: Dr. Wilkins Attending Physician: Doreen Wilkins MD History of Present Illness Ms. Abbie Rand is a 79 yr old female pt of Dr. Valerie Chavez with a hx of myelodysplastic syndrome (with chronically elevated platelets), right breast cancer S/P chemo. She was admitted to [facility] on 12/16 for a fall, also with UTI. During admission, Hb dropped from 9.4->6.5, today, after transfusion 8. She experienced rectal bleeding, rubi colored rectal bleeding yesterday, several BMs, according to her nurse 3 since 7AM. She has been hypotensive at 88/55 and is receiving a 250cc NS bolus and a PPI drip was just started. She is NPO. EGD is being planned. NPO since midnight. No electrolyte disturbances. Pt is awake, alert, oriented and tells me that she has had epigastric for approx 1-2 weeks and that she takes Excedrine, one tab 3-4 times/day for headaches, for the past few months. She has a hx of non bleeding duodenal ulcer in 2017. 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 Allergies Allergy/AdvReac Type Severity Reaction Status Date / Time latex Allergy Intermediate HIVES Verified 12/17/19 20:19 nickel Allergy Intermediate Hives/Itchi Verified 12/17/19 20:19 ness Iodinated Contrast Media AdvReac Mild Diarrhea Verified 12/17/19 20:19 [Iodinated Contrast- Oral and IV Dye] Lobster Allergy Severe HIVES Uncoded 12/17/19 20:19 Home Medications Home Medications Medication Instructions Recorded Confirmed Type hydroxyurea [Hydrea] 500 mg PO DAILY 06/06/18 12/17/19 History pantoprazole [Protonix] 40 mg PO BID PRN 06/06/18 12/17/19 History pregabalin [Lyrica] 75 mg PO BID 06/06/18 12/17/19 History temazepam [Restoril] 30 mg PO HS PRN 06/06/18 12/17/19 History albuterol sulfate 2.5 mg INHALATION Q4H PRN 12/17/19 12/17/19 History albuterol sulfate [Ventolin HFA] 2 puff INHALATION QID PRN 12/17/19 12/17/19 History amitriptyline 75 mg PO HS 12/17/19 12/17/19 History fluticasone propion-salmeterol 1 inh INHALATION BID 12/17/19 12/17/19 History loperamide See Rx Instructions .ROUTE 12/17/19 12/17/19 History .COMPLEX PRN olopatadine 1 drp OPB BID PRN 12/17/19 12/17/19 History tiotropium bromide [Spiriva with 1 cap INHALATION DAILY 12/17/19 12/17/19 History HandiHaler] trazodone 50 mg PO HS 12/17/19 12/17/19 History Patient History Medical History Anemia (Chronic) CKD (chronic kidney disease), stage III (Chronic) COPD (chronic obstructive pulmonary disease) (Chronic) COPD exacerbation (Resolved) Essential thrombocythemia (Chronic) Fracture of radial neck, left, closed (Resolved) History of breast cancer (Chronic) History of MRSA infection (Chronic) "left hip wound" History of peptic ulcer disease (Chronic) IBS (irritable bowel syndrome) (Chronic) Diarrhea predominant ; follows with GI Leukocytosis (Chronic) 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) Myelodysplastic syndrome (Chronic) Myelodysplastic syndrome (Chronic) Pelvic fracture S/P ORIF (open reduction internal fixation) fracture (Chronic) Thrombocytosis (Chronic) Surgical History H/O mastectomy (Chronic) right side H/O: hysterectomy (Chronic) History of cholecystectomy (Chronic) Status post cholecystectomy (Chronic) Status post hysterectomy (Chronic) Status post mastectomy (Chronic) "modified right mastectomy 1990" Status post total hip replacement, left (Chronic) Family History Other Unknown family medical history Social History Preferred Language: Argentine Communication Ability: Effective 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 Room Required: Yes Beliefs That Will Affect Care: None marital status: / Current Living Situation: Family Other Information That Helps Us Care for You: No Feels Safe at Home: Yes Safety Concerns: Feels Safe At This Time Smoking Status: Never smoker Tobacco Type: e-cigarettes ; Second Hand Exposure: No ; Hx Alcohol Use: No Hx Substance Use: No Review of Systems Review of Systems: ROS: Gen: Denies weakness, fevers, weight loss Eyes: No eye redness, or pain, no recent vision changes Resp: No SOB, no cough Cardio: No palpitations/irregular beats, no chest pain GI: + "stomach doesn't feel good," abdominal pain, no nausea/vomiting : Denies pain on urination Skin: No jaundice, itching or new rashes Physical Exam Constitutional: WD/WN, vitals as above Eyes: PERRL, conjunctivae normal, anicteric sclerae ENMT: external ear and nose normal, oropharynx normal Neck: trachea midline, no thyromegaly Respiratory: normal respiratory effort, lungs clear to auscultation Cardiovascular: RRR, no murmur, no edema Gastrointestinal (Abdomen): Percussion/Palpation: + abdomen tender (epigastric ) and abdomen soft; no guarding Musculoskeletal: no cyanosis or clubbing, extremities motor strength 5/5 Skin: no rashes, warm and dry Neurologic: patellar DTR's 2+ bilat, sensation intact and PERRL, EOMI, accommodation nl, no face palsy, no dysarthria Results & Data ([facility]) Vital Signs (Past 12 Hours) Vital Signs Temp Pulse Pulse Resp BP Pulse Ox 12/23/19 08:25 36.9 C 96 H 16 89/55 L 92 12/23/19 05:49 80 12/23/19 04:13 37 C 110 H 20 96/59 L 92 12/22/19 23:11 37.1 C 90 18 90/56 L 91 Laboratory Results WBC 13, Hb 8, Hct 24, Platelets 785, INR 1.0, Na 144, K 4.7, BUN54, Cr, glucose 124. Diagnostic Findings No specific GI imaging (1) Anemia Anemia type: unspecified type Qualified Code(s): D64.9 - Anemia, unspecified (2) Abdominal pain Abdominal location: generalized Qualified Code(s): R10.84 - Generalized abdominal pain
[2019-12-23] MEDS: LACTOBACILLUS ACIDOPHILUS (FLORANEX) TAB PO SCH (09:44)
[2019-12-23 09:46] LABS: INR 1.2 (0.9-1.1); Prothrombin Time 12.3 Seconds (9.0-12.0)
[2019-12-23 09:56] LABS: Albumin Level 2.8 gm/dl (3.4-5.0); Bilirubin Direct 0.1 mg/dl (0-0.2); Bilirubin,Total 0.5 mg/dl (0.2-1); Total Protein 5.4 gm/dl (6.4-8.2)
--- NOTE | 2019-12-23 10:10 | Anesthesiology Consultation ---
Date of Service December 23, 2019 Assessment & Plan (1) Encounter for pre-operative examination: Chart Review Chart Review: Acceptable Risk for Surgery and Patient NOT seen in Pre Admission Testing Consults Requested none ASA ASA4 Proposed Anesthesia Anesthesia Type: MAC Risk / Benefits Reviewed With: PT / POA / Parent / Guardian, Accepts Plan and Informed Consent Obtained History Surgery Operation Date: 12/23/19 08:30 Proposed Procedures p Esophagogastroduodenoscopy Dr Shukla - Lucía Shukla Height/Weight Height: 5 ft 4 in Weight: 48.4 kg Allergies Allergy/AdvReac Type Severity Reaction Status Date / Time latex Allergy Intermediate HIVES Verified 12/17/19 20:19 nickel Allergy Intermediate Hives/Itchi Verified 12/17/19 20:19 ness Iodinated Contrast Media AdvReac Mild Diarrhea Verified 12/17/19 20:19 [Iodinated Contrast- Oral and IV Dye] Lobster Allergy Severe HIVES Uncoded 12/17/19 20:19 Medications Home Medications Medication Instructions Recorded Confirmed Last Taken hydroxyurea [Hydrea] 500 mg PO DAILY 06/06/18 12/17/19 06/30/19 09:00 pantoprazole [Protonix] 40 mg PO BID PRN 06/06/18 12/17/19 06/30/19 20:00 pregabalin [Lyrica] 75 mg PO BID 06/06/18 12/17/19 06/30/19 20:00 temazepam [Restoril] 30 mg PO HS PRN 06/06/18 12/17/19 06/30/19 20:00 albuterol sulfate 2.5 mg INHALATION Q4H PRN 12/17/19 12/17/19 Unknown albuterol sulfate [Ventolin HFA] 2 puff INHALATION QID PRN 12/17/19 12/17/19 Unknown amitriptyline 75 mg PO HS 12/17/19 12/17/19 Unknown fluticasone propion-salmeterol 1 inh INHALATION BID 12/17/19 12/17/19 Unknown loperamide See Rx Instructions .ROUTE 12/17/19 12/17/19 Unknown .COMPLEX PRN olopatadine 1 drp OPB BID PRN 12/17/19 12/17/19 Unknown tiotropium bromide [Spiriva with 1 cap INHALATION DAILY 12/17/19 12/17/19 Unknown HandiHaler] trazodone 50 mg PO HS 12/17/19 12/17/19 Unknown Active Medications Generic Name Dose Route Start Last Admin Trade Name Doron PRN Reason Stop Dose Admin Acetaminophen 650 mg 12/20/19 20:00 12/20/19 20:09 Tylenol PO 01/19/20 19:59 650 mg Q4H PRN Administration Fever Amitriptyline HCl 75 mg 12/18/19 02:15 12/22/19 20:53 Elavil PO 01/17/20 02:14 75 mg HS SHORTY Administration Cephalexin HCl 500 mg 12/19/19 21:00 12/22/19 20:54 Keflex PO 12/24/19 20:59 500 mg BID SHORTY Administration Cyanocobalamin 500 mcg 12/21/19 10:45 12/22/19 08:29 Vitamin B-12 PO 01/20/20 10:44 500 mcg QAM SHORTY Administration Fluticasone/Vilanterol 1 puffs 12/18/19 09:00 12/23/19 07:29 Breo Ellipta 100/25 Mcg Inh INH 01/17/20 08:59 1 puffs DAILY SHORTY Administration Folic Acid 1 mg 12/21/19 13:30 12/22/19 08:28 Folvite PO 01/20/20 13:29 1 mg QAM SHORTY Administration Hydroxyurea 500 mg 12/18/19 09:00 12/22/19 08:28 Hydrea PO 01/17/20 08:59 500 mg DAILY SHORTY Administration Sodium Chloride 1,000 mls @ 125 mls/hr 12/23/19 08:30 12/23/19 09:38 Nss 1000ml IV 01/22/20 08:29 125 mls/hr .Q8H SHORTY Administration Pantoprazole Sodium 40 mg/ 100 mls @ 20 mls/hr 12/23/19 09:00 12/23/19 08:59 Dextrose IV 01/22/20 08:59 8 mg/hr Q5H SHORTY 20 mls/hr Administration 8 MG/HR Lactobacillus Acidophilus 4 tab 12/21/19 17:00 12/23/19 09:44 Floranex PO 01/20/20 16:59 Not Given QIDM SHORTY Miscellaneous 1 ea 12/18/19 08:59 12/23/19 07:29 Remove Nicoderm Patch N/A 05/15/20 08:58 1 ea DAILY@0859 SHORTY Administration Morphine Sulfate 1 mg 12/22/19 18:18 12/22/19 19:54 Morphine Sulfate IV 01/05/20 18:17 1 mg Q4 PRN Administration Pain Nicotine 21 mg 12/18/19 09:00 12/23/19 07:30 Nicoderm Cq TD 01/17/20 08:59 21 mg QAM SHORTY Administration Ondansetron HCl 4 mg 12/18/19 10:48 12/22/19 16:19 Zofran IV 01/17/20 10:47 4 mg Q6H PRN Administration Nausea Pregabalin 75 mg 12/18/19 09:00 12/22/19 20:53 Lyrica PO 01/17/20 08:59 75 mg BID SHORTY Administration Raspberry 5 ml 12/23/19 08:45 12/23/19 09:39 Raspberry PO 01/06/20 08:44 5 ml Q6 SHORTY Administration Temazepam 30 mg 12/18/19 01:05 12/22/19 20:53 Restoril PO 01/17/20 01:04 30 mg HS PRN Administration Sleep Trazodone HCl 50 mg 12/18/19 01:30 12/22/19 20:54 Desyrel PO 01/17/20 01:29 50 mg HS SHORTY Administration Umeclidinium [place] 1 puffs 12/18/19 09:00 12/23/19 07:29 Incruse Ellipta INH 01/17/20 08:59 1 puffs DAILY SHORTY Administration Vancomycin HCl 500 mg 12/23/19 08:45 12/23/19 09:39 Vancomycin Hcl PO 01/02/20 08:44 500 mg Q6 SHORTY Administration NPO Date Last Intake of Fluids: 12/23/19 Time Last Intake of Fluids: 00:00 Date Last Intake of Solids: 12/22/19 Time Last Intake of Solids: 17:00 Past Medical History Medical History Anemia (Chronic) CKD (chronic kidney disease), stage III (Chronic) COPD (chronic obstructive pulmonary disease) (Chronic) COPD exacerbation (Resolved) Essential thrombocythemia (Chronic) Fracture of radial neck, left, closed (Resolved) History of breast cancer (Chronic) History of MRSA infection (Chronic) "left hip wound" History of peptic ulcer disease (Chronic) IBS (irritable bowel syndrome) (Chronic) Diarrhea predominant ; follows with GI Leukocytosis (Chronic) 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) Myelodysplastic syndrome (Chronic) Myelodysplastic syndrome (Chronic) Pelvic fracture S/P ORIF (open reduction internal fixation) fracture (Chronic) Thrombocytosis (Chronic) Past Family History Family History Other Unknown family medical history Past Surgical History Surgical History H/O mastectomy (Chronic) right side H/O: hysterectomy (Chronic) History of cholecystectomy (Chronic) Status post cholecystectomy (Chronic) Status post hysterectomy (Chronic) Status post mastectomy (Chronic) "modified right mastectomy 1990" Status post total hip replacement, left (Chronic) Social History Smoking Status: Never smoker tobacco type: e-cigarettes Hx Alcohol Use: No Hx Substance Use: No substance use type: does not use Physical Exam Vital Signs Last Vital Signs Temp 36.7 C 12/23/19 10:25 Pulse 92 H 12/23/19 10:25 Resp 19 12/23/19 10:25 BP 82/51 L 12/23/19 10:25 Pulse Ox 92 12/23/19 10:25 Testing Laboratory Results 12/23/19 07:01 12/23/19 07:01 PT 12.3 Seconds (9.0-12.0) H 12/23/19 09:22 INR 1.2 (0.9-1.1) H 12/23/19 09:22 APTT 27.7 Seconds (21.0-31.0) 12/17/19 20:08 Urine Color Yellow 12/17/19 22:30 Urine Appearance Cloudy (Clear) A 12/17/19 22:30 Urine pH 5.5 (4.5-7.5) 12/17/19 22:30 Ur Specific [place] 1.020 (1.000-1.030) 12/17/19 22:30 Urine Protein Negative (Negative) 12/17/19 22:30 Urine Glucose (UA) Negative (Negative) 12/17/19 22:30 Urine Ketones Negative (Negative) 12/17/19 22:30 Urine Nitrite Positive (Negative) A 12/17/19 22:30 Ur Leukocyte Esterase 2+ (Negative) H 12/17/19 22:30 Urine WBC (Auto) >30 /hpf (0-5) H 12/17/19 22:30 Urine RBC (Auto) 0-4 /hpf (0-4) 12/17/19 22:30 U Hyaline Cast (Auto) 10-30 /lpf (0-5) H 12/17/19 22:30 U Epithel Cells (Auto) 0-5 /lpf (0-5) 12/17/19 22:30 Urine Bacteria (Auto) 3+ (Negative) H 12/17/19 22:30 Blood Type A Positive 12/19/19 11:54 Antibody Screen NEGATIVE 12/19/19 11:54 12/17/19 23:22 Aerobic Blood Culture - Final Blood No growth in Aerobic bottle after 5 days. Anaerobic Blood Culture - Final No growth in Anaerobic bottle after 5 days. 12/17/19 23:24 Aerobic Blood Culture - Final Blood No growth in Aerobic bottle after 5 days. Anaerobic Blood Culture - Final No growth in Anaerobic bottle after 5 days. 12/17/19 22:30 Urine Culture - Final Urine,Straight Cath Klebsiella pneumoniae Electrocardiogram Date: 12/17/19 Findings: + NSR @ (95) marked sinus arrhythmia Incomplete right bundle branch block T wave abnormality, consider anterior ischemia Abnormal ECG When compared with ECG of 30-JUN-2019 23:34, No significant change was found Echocardiogram Date: 12/18/19 EF: 55-60% LV Function: normal Other Findings: + LVH (borderline concentric) Valvular Disease: + no significant valvular disease RV sys function normal, no evidence of pulmonary htn
--- NOTE | 2019-12-23 10:21 | CT Scan Report ---
CT abd pelvis wo con CT DOSE: 265.24 mGy.cm HISTORY: Pain evaluation for C diff colitis TECHNIQUE: Multiaxial CT images of the abdomen and pelvis were performed without contrast. A dose lo wering technique was utilized adhering to the principles of ALARA. COMPARISON STUDY: 01/30/2019 FINDINGS: Basilar emphysematous change of the lungs. Atelectasis right base. The liver spleen and warren creas are unremarkable. Prior cholecystectomy. Right renal lower pole and renal parapelvic cyst uncha nged. Mild atrophy left kidney also unchanged. Fluid-filled slightly distended sigmoid. Several small contained air foci within the sigmoid not felt to relate to pneumatosis coli. No free fluid within the pelvic cul-de-sac or pericolic gutter regions. Prior total left hip arthroplasty. IMPRESSION: 1. Mild/moderate nonspecific sigmoid colitis versus reactive ileus. 2. No evidence for abscess or collection. 3. Stable right renal parapelvic and lower pole cyst. ACT 112: Negative or not required by law. The above report was generated using voice recognition software. It may contain grammatical, syntax or spelling errors. Electronically signed by: Bandar Negro M.D. 12/23/2019 10:20 AM
[2019-12-23] MEDS ORDERED: LIDOCAINE HCL 2% 2 ML VIAL/AMP(20MG/ML) INFIL ONE ×2 (10:41→10:42)
[2019-12-23] MEDS ORDERED: PROPOFOL IV EMULSION 10 MG/ML 20 ML VIAL IV ONE (10:41)
[2019-12-23] MEDS ORDERED: PHENYLEPHRINE 100MCG/ML 5ML SYR ONE (11:48)
--- NOTE | 2019-12-23 11:49 | GI REPORT ---
Patient Name: Abbie Rand Procedure Date: 12/23/2019 11:05 AM Date of : 1940 Admit Type: Inpatient Age: 79 Gender: Female Attending MD: Lucía Shukla DO Procedure: Upper GI endoscopy Providers: Lucía Shukla DO Referring MD: Doreen Wilkins Indications: Acute post hemorrhagic anemia, Melena Medicines: Propofol per Anesthesia Complications: No immediate complications. Estimated blood loss: None. Estimated Blood Loss: Estimated blood loss: none. Procedure: Pre-Anesthesia Assessment: - Prior to the procedure, a History and Physical was performed, and patient medications, allergies and sensitivities were reviewed. The patient's tolerance of previous anesthesia was reviewed. - The risks and benefits of the procedure and the sedation options and risks were discussed with the patient. All questions were answered and informed consent was obtained. - Patient identification and proposed procedure were verified prior to the procedure by the physician and the nurse. The procedure was verified in the pre-procedure area in the procedure room. - Mental Status Examination: alert and oriented. Airway Examination: normal oropharyngeal airway and neck mobility. Respiratory Examination: clear to auscultation. CV Examination: normal. Abdominal Examination: bowel sounds present, abdomen soft and non-tender, no masses or organomegaly noted. - ASA Grade Assessment: III - A patient with severe systemic disease. After obtaining informed consent, the endoscope was passed under direct vision. Throughout the procedure, the patient's blood pressure, pulse, and oxygen saturations were monitored continuously. The Endoscope was introduced through the mouth, and advanced to the duodenal bulb. The upper GI endoscopy was accomplished without difficulty. The patient tolerated the procedure well. Findings: Non-severe esophagitis with no bleeding was found at the gastroesophageal junction. The stomach was normal. One non-bleeding cratered duodenal ulcer was found in the duodenal bulb. Impression: - Non-severe reflux esophagitis. - Normal stomach. No fresh or altered blood. - Very large cratered non-bleeding duodenal ulcer. - No specimens collected. Recommendation: - NPO except for sips of clears today - PPI gtt for 72 hours - Follow H/H. - No NSAIDs - Check stool for H pylori - Return patient to hospital [facility] for ongoing care. Lucía Shukla D.O. Lucía Shukla DO 12/23/2019 11:49:15 AM This report has been signed electronically. Note Initiated On: 12/23/2019 11:05 AM Number of Addenda: 0 I attest to the content of the Intraoperative Record and orders documented therein, exceptions below {[id number]}
--- NOTE | 2019-12-23 12:13 | Anesthesiology Progress Note ---
Date of Service December 23, 2019 Anesthesia Post Procedure Vital Signs Vital Signs: Temp Pulse Pulse Resp BP BP Pulse Ox 12/23/19 11:55 91 H 18 85/49 L 98 12/23/19 11:40 97 H 22 91/55 L 100 12/23/19 11:29 37.2 C 90 18 108/52 L 98 12/23/19 10:25 36.7 C 92 H 19 82/51 L 92 12/23/19 10:22 93 H 12/23/19 08:25 36.9 C 96 H 16 89/55 L 92 12/23/19 05:49 80 12/23/19 04:13 37 C 110 H 20 96/59 L 92 12/22/19 23:11 37.1 C 90 18 90/56 L 91 12/22/19 19:25 36.8 C 84 20 93/59 L 92 12/22/19 16:17 36.9 C 81 17 97/60 L 94 12/22/19 15:00 80 Pain Intensity Left Upper Arm: Pain Intensity: 4 Left Hip: Pain Intensity: 4 Transfer of Care Handoff Completed per policy Notes Mental Status: alert / awake / arousable Patient Amnestic to Procedure: Yes Nausea / Vomiting: adequately controlled Pain: adequately controlled Airway Patency, RR, SpO2: stable & adequate BP & HR: stable & adequate Hydration State: stable & adequate Anesthetic Complications: no major complications apparent and Pt Satisfied with anesthetic care Notes: The patient is awake and comfortable. Her blood pressure remains low but is unchanged from her preoperative value.
[2019-12-23] MEDS: MoRPHine SULFATE 2 MG/ML CARP IV PRN ×3 (12:39→23:20)
[2019-12-23 13:38] LABS: Hematocrit (blood only) 20.1 % (37-47); Hemoglobin 6.7 g/dL (12.0-16.0)
[2019-12-23] MEDS ORDERED: SODIUM CHLORIDE 0.9% 250 ML IV PRN ×2 (13:50→13:55)
--- NOTE | 2019-12-23 13:56 | Hospitalist Progress Note ---
Date of Service December 23, 2019 Assessment & Plan (1) Duodenal ulcer: developed acute GI bleed , multiple melanotic stool leading to acute blood loss anemia required multiple PRBC transfusion appreciate input from GI s/p EGD , shows deudenal ulcer pt will be continued NPO for at least 24 hrs IV PPI gtt to be continued ordered for PRBC tx to keep Hb > 7 avoid NSAID's cont to monitor in tele pt's daughter updated over phone (2) Closed fracture of inferior pubic ramus: HYPOTENSION : possible due to active GI bleed BP improved with PRBC transfusion given IV fluids cont to monitor in tele CLOSED FRACTURE OF INFERIOR PUBIC RAMUS : secondary to fall CT of pelvis : non displaced ac left ant ischiopubic ring facture appreciate input from Orthopedics no surgery needed partial wt bearing on left lower ext as tolerated PT/OT eval appreciated recommends pt may return home with home health /home PT follow up at orthopedics clinic in 2 weeks for repeat Xray LUNG NODULE : incidental finding : CT chest non contrast : 1. Advanced emphysema. 2. There is no airspace consolidation typical for pneumonia or pleural effusion. 3. There are 4 noncalcified pulmonary nodules measuring up to 6 mm. 2 of these nodules are either new or increased in size dating back to 2005. These are pathologically indeterminant and follow-up is recommended as per the Fleischner criteria. See below. SOLID LUNG NODULES Solitary nodule size: 6-8 mm * low risk patients: follow-up at 6-12 months, then consider further follow-up at 18-24 months * high risk patients: initial follow-up CT at 6-12 months and then at 18-24 months if no change (3) Myelodysplastic syndrome: hx of anemia of chronic disease cont Hydrea required multiple PRBC transfusion due to acute blood loss anemia due to Upper GI bleed added Folic acid and Vitamin B ( MCV> 100 ) (4) Syncope: possibly due to symptomatic anemia no arrythmia noted on tele episodes of hypotension noted given IV fluid , pt denies of feeling dizzy or lightheaded cont to monitor in tele UTI : urine culture : gram negative bacilli /Klebsiella complete total 4 days of abx DVT PROPHYLAXIS: scd and teds no anticoagulation due to GI bleed /acute blood loss anemia DISPOSITION : lives at home with daughter updated daughter over phone Admission and Anticipated Discharge Date Admission Date: December 17, 2019 Subjective developed acute GI bleed /melena overnight with acute blood loss anemia , hb dropped to 6.5 GI consulted s/p EGD shows deudenal ulcer Physical Exam Constitutional: WD/WN, vitals as above + thin; no acute distress Eyes: PERRL, conjunctivae normal, anicteric sclerae ENMT: external ear and nose normal, oropharynx normal Neck: trachea midline, no thyromegaly Respiratory: normal respiratory effort, lungs clear to auscultation Cardiovascular: RRR, no murmur, no edema Gastrointestinal (Abdomen): Inspection/Auscultation: normal bowel sounds Percussion/Palpation: abdomen soft; abdomen nontender Musculoskeletal: Extremities: + limited ROM of extremities (left hip and groin pain ) Skin: no rashes, warm and dry Neurologic: PERRL, EOMI, accommodation nl, no face palsy, no dysarthria Psychiatric: A+Ox3, euthymic affect Results & Data Results & Data ([facility]) Vital Signs (Past 12 Hours) Vital Signs Temp Pulse Pulse Resp BP Pulse Ox 12/23/19 13:36 90 18 89/50 L 98 12/23/19 13:00 91 H 18 93/51 L 98 12/23/19 12:42 94 H 16 100/52 L 95 12/23/19 12:25 36.8 C 92 H 18 97/54 L 99 12/23/19 12:10 89 18 99/60 L 99 12/23/19 11:55 91 H 18 85/49 L 98 12/23/19 11:40 97 H 22 91/55 L 100 12/23/19 11:29 37.2 C 90 18 108/52 L 98 12/23/19 10:25 36.7 C 92 H 19 82/51 L 92 12/23/19 10:22 93 H 12/23/19 08:25 36.9 C 96 H 16 89/55 L 92 12/23/19 05:49 80 12/23/19 04:13 37 C 110 H 20 96/59 L 92 (1) Closed fracture of inferior pubic ramus Encounter type: initial encounter Laterality: left Qualified Code(s): S32.592A - Other specified fracture of left pubis, initial encounter for closed fracture (2) Syncope Syncope type: unspecified Qualified Code(s): R55 - Syncope and collapse
[2019-12-23] MEDS ORDERED: LACTATED RINGER'S 1,000 ML IV SCH (14:00)
[2019-12-23] MEDS ORDERED: ACETAMINOPHEN 65 ML IV PRN (15:17)
[2019-12-23] MEDS ORDERED: LACTATED RINGER'S 250 ML IV SCH (15:30)
[2019-12-23 22:17] LABS: Hematocrit (blood only) 22.6 % (37-47); Hemoglobin 7.4 g/dL (12.0-16.0)
[2019-12-23] MEDS: TEMAZEPAM 15 MG CAPSULE PO PRN (22:39)
[2019-12-24] MEDS: PANTOprazole 40 MG in DEXTROSE 5% 100 ML IV SCH ×5 (02:17→22:46)
[2019-12-24] MEDS: VANCOMYCIN HCL 500 MG/10 ML SOLN PO SCH ×4 (06:16→23:32)
[2019-12-24] MEDS: RASPBERRY SYRUP 5 ML UDP PO SCH ×4 (06:16→23:32)
[2019-12-24 07:34] LABS: Hematocrit (blood only) 21.9 % (37-47); Hemoglobin 7.2 g/dL (12.0-16.0); Mean Corpuscular Hemoglobin 31.4 pg (25-34); Mean Corpuscular Hgb Conc 32.9 g/dL (32-36); Mean Corpuscular Volume 95.6 fL (80-100); Mean Platelet Volume 11.9 fL (7.4-10.4); Nucleated RBC # (auto) 0.07 K/uL (0-0); Nucleated RBC % (auto) 0.7 %; Platelet Count 629 K/uL (130-400); RDW Coefficient of Variation 27.4 % (11.5-14.5); Red Blood Count 2.29 M/uL (4.2-5.4); White Blood Count 10.08 K/uL (4.8-10.8)
[2019-12-24 08:14] LABS: Albumin Level 2.6 gm/dl (3.4-5.0); BUN Creatinine Ratio 42.1 (10-20); Calcium 7.9 mg/dl (8.5-10.1); Creatinine Clr Calc Pharmacy 47.3 ml/min; Est GFR (Non-African American) 73.3; Potassium 3.8 mmol/L (3.5-5.1)
[2019-12-24 08:21] LABS: Albumin Globulin Ratio 1.1 (0.9-2); Bilirubin,Total 0.7 mg/dl (0.2-1); Globulin 2.3 gm/dl (2.5-4.0); Total Protein 4.9 gm/dl (6.4-8.2)
[2019-12-24] MEDS: FLUTICASONE/VILANTEROL 100/25MCG 14 PUFFS/INHALER INH SCH (08:40)
[2019-12-24] MEDS: UMECLIDINIUM BROMIDE 62.5MCG/BLISTER 7 PUFFS/INHALER INH SCH (08:40)
[2019-12-24] MEDS: NICOTINE 21 MG/24 HR TDSY TD SCH (08:41)
[2019-12-24] MEDS: MoRPHine SULFATE 2 MG/ML CARP IV PRN ×3 (09:58→20:43)
--- NOTE | 2019-12-24 11:04 | Gastroenterology Progress Note ---
Date of Service December 24, 2019 Assessment & Plan (1) Duodenal ulcer: 1. PPI drip x 72 hrs then 40mg BID - would discharge on this dose, to be decreased to daily by PCP if improved in 2 months. OP GI follow up in the office needed only if symptoms persist. 2. No NSAIDs, reviewed with pt. Suggested that she discuss alternative migraine tx with PCP. 3. Clear liquids po today. 4. Please watch for Stool for H Pylori results and tx if present. 5. Advance diet slowly s tolerated. Present on Admission?: Yes Admission and Anticipated Discharge Date Admission Date: December 17, 2019 Supervising Physician Co-Signing Physician Notes I have seen and examined the patient with BRIANNE Chávez on 12/23. Her note reflects our findings and plan. Subjective Ms. Rand is a 79 yr old female admitted for hip fx who developed melena, anemia. EGD yesterday with large, non bleeding duodenal ulcer, likely from Excedrin migraine which she takes 2-3 times most days. Today: no BMs since prior to EGD. Hb 9.8 (max) ->6.7 yesterday -> 7.2 today. Received one unit RBCs yesterday. BUN today 33. C/o mild abdomen discomfort. No vomiting. Review of Systems Review of Systems: ROS: Gen: Denies weakness, fevers, weight loss Eyes: No eye redness, or pain, no recent vision changes Resp: No SOB, no cough Cardio: No palpitations/irregular beats, no chest pain GI: + "stomach doesn't feel good," abdominal pain, no nausea/vomiting : Denies pain on urination Skin: No jaundice, itching or new rashes Physical Exam Constitutional: WD/WN, vitals as above Eyes: PERRL, conjunctivae normal, anicteric sclerae ENMT: external ear and nose normal, oropharynx normal Neck: trachea midline, no thyromegaly Respiratory: normal respiratory effort, lungs clear to auscultation Cardiovascular: RRR, no murmur, no edema Gastrointestinal (Abdomen): Percussion/Palpation: + abdomen tender (epigastric ) and abdomen soft; no guarding Musculoskeletal: no cyanosis or clubbing, extremities motor strength 5/5 Skin: no rashes, warm and dry Neurologic: patellar DTR's 2+ bilat, sensation intact and PERRL, EOMI, accommodation nl, no face palsy, no dysarthria Results & Data ([facility]) Vital Signs (Past 12 Hours) Vital Signs Temp Pulse Pulse Resp BP BP Pulse Ox 12/24/19 08:03 36.8 C 75 20 88/56 L 90 12/24/19 02:59 36.7 C 82 16 91/58 L 91 12/24/19 00:00 63 12/23/19 23:02 37 C 80 16 96/58 L 96 Diagnostic Findings EGD 12/22: - Non-severe reflux esophagitis. - Normal stomach. No fresh or altered blood. - Very large cratered non-bleeding duodenal ulcer. - No specimens collected. Recommendation: - NPO except for sips of clears today - PPI gtt for 72 hours - Follow H/H. - No NSAIDs - Check stool for H pylori - Return patient to hospital [facility] for ongoing care.
--- NOTE | 2019-12-24 11:50 | Hospitalist Progress Note ---
Date of Service December 24, 2019 Assessment & Plan (1) Duodenal ulcer: developed acute GI bleed , multiple melanotic stool leading to acute blood loss anemia required multiple PRBC transfusion appreciate input from GI s/p EGD , shows deudenal ulcer possible NSAID induced ( takes Exedrine for Migrain headache /arthitis pain ) IV PPI gtt to be continued for total 72 hrs pt is counselled multiple times to avoid NSAID no further episode of GI bleed , no aj , no BM since yesterday HB stable at > 7 avoid NSAID's cont to monitor in tele (2) Closed fracture of inferior pubic ramus: HYPOTENSION : possible due to active GI bleed BP improved with PRBC transfusion cont to monitor in tele CLOSED FRACTURE OF INFERIOR PUBIC RAMUS : secondary to fall CT of pelvis : non displaced ac left ant ischiopubic ring facture appreciate input from Orthopedics no surgery needed partial wt bearing on left lower ext as tolerated PT/OT eval appreciated recommends pt may return home with home health /home PT follow up at orthopedics clinic in 2 weeks for repeat Xray LUNG NODULE : incidental finding : CT chest non contrast : 1. Advanced emphysema. 2. There is no airspace consolidation typical for pneumonia or pleural effusion. 3. There are 4 noncalcified pulmonary nodules measuring up to 6 mm. 2 of these nodules are either new or increased in size dating back to 2005. These are pathologically indeterminant and follow-up is recommended as per the Fleischner criteria. See below. SOLID LUNG NODULES Solitary nodule size: 6-8 mm * low risk patients: follow-up at 6-12 months, then consider further follow-up at 18-24 months * high risk patients: initial follow-up CT at 6-12 months and then at 18-24 months if no change (3) Myelodysplastic syndrome: hx of anemia of chronic disease cont Hydrea required multiple PRBC transfusion due to acute blood loss anemia due to Upper GI bleed added Folic acid and Vitamin B ( MCV> 100 ) (4) Syncope: possibly due to symptomatic anemia no arrythmia noted on tele episodes of hypotension noted given IV fluid , pt denies of feeling dizzy or lightheaded cont to monitor in tele UTI : urine culture : gram negative bacilli /Klebsiella completed total 4 days of abx DVT PROPHYLAXIS: scd and teds no anticoagulation due to GI bleed /acute blood loss anemia DISPOSITION : lives at home with daughter Admission and Anticipated Discharge Date Admission Date: December 17, 2019 Subjective no further episode of GI bleed no bowel movement over night H&H been stable started on clears Review of Systems Review of Systems: As per HPI, all 10 systems reviewed, all other ROS negative Gastrointestinal: + nausea; no abdominal pain, no vomiting and no diarrhea/loose stools Physical Exam Constitutional: WD/WN, vitals as above + thin; no acute distress Eyes: PERRL, conjunctivae normal, anicteric sclerae ENMT: external ear and nose normal, oropharynx normal Neck: trachea midline, no thyromegaly Respiratory: normal respiratory effort, lungs clear to auscultation Cardiovascular: RRR, no murmur, no edema Gastrointestinal (Abdomen): Inspection/Auscultation: normal bowel sounds Percussion/Palpation: abdomen soft; abdomen nontender Musculoskeletal: Extremities: + limited ROM of extremities (left hip and groin pain ) Skin: no rashes, warm and dry Neurologic: PERRL, EOMI, accommodation nl, no face palsy, no dysarthria Psychiatric: A+Ox3, euthymic affect Results & Data Results & Data ([facility]) Vital Signs (Past 12 Hours) Vital Signs Temp Pulse Pulse Resp BP Pulse Ox 12/24/19 08:03 36.8 C 75 20 88/56 L 90 12/24/19 02:59 36.7 C 82 16 91/58 L 91 12/24/19 00:00 63 (1) Closed fracture of inferior pubic ramus Encounter type: initial encounter Laterality: left Qualified Code(s): S32.592A - Other specified fracture of left pubis, initial encounter for closed fracture (2) Syncope Syncope type: unspecified Qualified Code(s): R55 - Syncope and collapse
[2019-12-24 18:20] LABS: Hematocrit (blood only) 23.1 % (37-47); Hemoglobin 7.6 g/dL (12.0-16.0)
[2019-12-24] MEDS: TEMAZEPAM 15 MG CAPSULE PO PRN (21:30)
[2019-12-25] MEDS: PANTOprazole 40 MG in DEXTROSE 5% 100 ML IV SCH ×5 (04:00→19:59)
[2019-12-25] MEDS: RASPBERRY SYRUP 5 ML UDP PO SCH ×4 (05:13→23:20)
[2019-12-25] MEDS: VANCOMYCIN HCL 500 MG/10 ML SOLN PO SCH ×4 (05:13→23:20)
[2019-12-25] MEDS: MoRPHine SULFATE 2 MG/ML CARP IV PRN ×4 (05:14→21:54)
[2019-12-25 07:06] LABS: Hematocrit (blood only) 22.9 % (37-47); Hemoglobin 7.6 g/dL (12.0-16.0)
[2019-12-25] MEDS: UMECLIDINIUM BROMIDE 62.5MCG/BLISTER 7 PUFFS/INHALER INH SCH (08:25)
[2019-12-25] MEDS: NICOTINE 21 MG/24 HR TDSY TD SCH (08:26)
[2019-12-25] MEDS: FLUTICASONE/VILANTEROL 100/25MCG 14 PUFFS/INHALER INH SCH (08:26)
--- NOTE | 2019-12-25 18:37 | Hospitalist Progress Note ---
Date of Service December 25, 2019 Assessment & Plan (1) Syncope: Possible related to orthostatic vs symptomatic anemia or hypotension CT head on admission showed no acute intracranial abnormality ECHO showed no wall motion abnormality with EF 55 to 60 % Received IV fluid on admission No arrhythmia noted on tele Hemoglobin dropped to 7.6 Clinically improvement (2) Duodenal ulcer: Anemia Acute GI bleed with multiple melanotic stool Hemoglobin dropped to 6.5, currently 7.6 Received 4 units PRBC so far during hospital course GI on board s/p EGD showed duodenal ulcer possible NSAID induced ( takes Exedrine for Migrain headache /arthitis pain ) IV PPI gtt to be continued for total 72 hrs as per GI Will transition to PO PPI BID for 2 months Advised pt to avoid any NSAID no further episode of GI bleed since 12/22 Continue monitor H/H and transfused if hemoglobin drops below 7 Will check stool for h pylori Continue clear liquid diet (3) Closed fracture of inferior pubic ramus: Secondary to fall CT of pelvis showed Acute left inferior ischiopubic ring fracture. CT hip showed acute fracture of the left inferior ischial pubic ramus Ortho on board recommended conservative management no surgical intervention as per ortho Partial weightbearing on the left lower extremity at this time as per ortho Continue PT/OT recommends pt may return home with home health /home PT follow up at orthopedics clinic in 2 weeks for repeat Xray Fall precaution LUNG NODULE : incidental finding : CT chest non contrast showed 4 noncalcified pulmonary nodules measuring up to 6 mm. 2 of these nodules are either new or increased in size dating back to 2005. These are pathologically indeterminant and follow-up is recommended as per the Fleischner criteria. See below. SOLID LUNG NODULES Solitary nodule size: 6-8 mm * low risk patients: follow-up at 6-12 months, then consider further follow-up at 18-24 months * high risk patients: initial follow-up CT at 6-12 months and then at 18-24 months if no change Will need outpatient follow up (4) Myelodysplastic syndrome: Hx of anemia of chronic disease continue Hydrea 4 units PRBC transfused during hospital course so far Continue Folic acid and Vitamin B ( MCV> 100 ) Monitor CBC UTI : urine culture grew gram negative bacilli /Klebsiella completed total 4 days of abx Stable DVT PROPHYLAXIS: scd and teds no anticoagulation due to GI bleed /acute blood loss anemia DISPOSITION : Plan to discharge home with home health Admission and Anticipated Discharge Date Admission Date: December 17, 2019 Subjective Pt was seen and examined Lying in bed with no distress Pt said that she feels a little better She said that she does not have any diarrhea She would like to remain on the clear liquid for now She said that her pain is controlled for now Denies any chest pain, palpitation, dizziness and SOB Physical Exam Physical Exam: General- No acute distress Head- atraumatic Eyes- PERRL, EOMI, ENT- oropharynx clear Neck- supple, no JVD Lungs- clear to auscultation Heart- regular rhythm; no murmur Abdomen- normal bowel sounds, soft, nontender Extremities- no calf tenderness Neuro- alert, oriented x 3; PERRL, EOMI; no facial palsy; no dysarthria Skin- warm & dry Results & Data Results & Data ([facility]) Vital Signs (Past 12 Hours) Vital Signs Temp Pulse Resp BP Pulse Ox 12/25/19 11:41 36.9 C 81 18 90/55 L 95 12/25/19 07:36 36.9 C 88 18 103/56 L 92 (1) Closed fracture of inferior pubic ramus Encounter type: initial encounter Laterality: left Qualified Code(s): S32.592A - Other specified fracture of left pubis, initial encounter for closed fracture (2) Syncope Syncope type: unspecified Qualified Code(s): R55 - Syncope and collapse
[2019-12-25] MEDS: TEMAZEPAM 15 MG CAPSULE PO PRN (21:54)
[2019-12-26] MEDS: PANTOprazole 40 MG in DEXTROSE 5% 100 ML IV SCH ×2 (01:13→06:14)
[2019-12-26] MEDS: MoRPHine SULFATE 2 MG/ML CARP IV PRN ×4 (02:47→23:32)
[2019-12-26] MEDS: RASPBERRY SYRUP 5 ML UDP PO SCH ×4 (06:14→23:27)
[2019-12-26] MEDS: VANCOMYCIN HCL 500 MG/10 ML SOLN PO SCH ×4 (06:14→23:27)
[2019-12-26 07:06] LABS: Hematocrit (blood only) 22.6 % (37-47); Hemoglobin 7.4 g/dL (12.0-16.0); Mean Corpuscular Hemoglobin 32.2 pg (25-34); Mean Corpuscular Hgb Conc 32.7 g/dL (32-36); Mean Corpuscular Volume 98.3 fL (80-100); Mean Platelet Volume 11.9 fL (7.4-10.4); Nucleated RBC # (auto) 0.06 K/uL (0-0); Nucleated RBC % (auto) 0.6 %; Platelet Count 725 K/uL (130-400); RDW Standard Deviation 88.7 fL (36.4-46.3); White Blood Count 10.74 K/uL (4.8-10.8)
[2019-12-26 07:39] LABS: BUN Creatinine Ratio 15.5 (10-20); Calcium 8.1 mg/dl (8.5-10.1); Creatinine Clr Calc Pharmacy 50.5 ml/min; Est GFR (African American) 93.6; Est GFR (Non-African American) 80.8; Potassium 3.2 mmol/L (3.5-5.1)
[2019-12-26] MEDS ORDERED: POTASSIUM CHLORIDE 20 MEQ TABCR PO STA (08:24)
[2019-12-26] MEDS ORDERED: SODIUM CHLORIDE 0.9% 250 ML IV PRN (08:30)
[2019-12-26] MEDS: FLUTICASONE/VILANTEROL 100/25MCG 14 PUFFS/INHALER INH SCH (08:56)
[2019-12-26] MEDS: NICOTINE 21 MG/24 HR TDSY TD SCH (08:57)
[2019-12-26] MEDS: PANTOprazole 40 MG TAB PO SCH ×2 (08:57→19:47)
[2019-12-26] MEDS: ONDANSETRON INJ 2 MG/ML 2 ML VIAL IV PRN (10:43)
[2019-12-26] MEDS: UMECLIDINIUM BROMIDE 62.5MCG/BLISTER 7 PUFFS/INHALER INH SCH (10:43)
--- NOTE | 2019-12-26 18:11 | Hospitalist Progress Note ---
Date of Service December 26, 2019 Assessment & Plan (1) Syncope: Possible related to orthostatic vs symptomatic anemia or hypotension CT head on admission showed no acute intracranial abnormality ECHO showed no wall motion abnormality with EF 55 to 60 % Received IV fluid on admission No arrhythmia noted on tele Hemoglobin dropped to 7.4 today Clinically improvement (2) Duodenal ulcer: Anemia Acute GI bleed with multiple melanotic stool Hemoglobin dropped to 6.5, currently 7.4 There is 1 unit PRBC that was placed on hold, will transfuse it before expiring Transfused 1 unit PRBC today Received 5 units PRBC so far during hospital course GI on board s/p EGD showed duodenal ulcer possible NSAID induced ( takes Exedrine for Migrain headache /arthitis pain ) IV PPI gtt to be continued for total 72 hrs as per GI Will transition to PO PPI BID for 2 months Advised pt to avoid any NSAID Continue monitor H/H and transfused if hemoglobin drops below 7 Will check stool for h pylori Continue clear liquid diet (3) Closed fracture of inferior pubic ramus: Secondary to fall CT of pelvis showed Acute left inferior ischiopubic ring fracture. CT hip showed acute fracture of the left inferior ischial pubic ramus Ortho on board recommended conservative management no surgical intervention as per ortho Partial weightbearing on the left lower extremity at this time as per ortho Continue PT/OT recommends pt may return home with home health /home PT follow up at orthopedics clinic in 2 weeks for repeat Xray Fall precaution LUNG NODULE : incidental finding : CT chest non contrast showed 4 noncalcified pulmonary nodules measuring up to 6 mm. 2 of these nodules are either new or increased in size dating back to 2005. These are pathologically indeterminant and follow-up is recommended as per the Fleischner criteria. See below. SOLID LUNG NODULES Solitary nodule size: 6-8 mm * low risk patients: follow-up at 6-12 months, then consider further follow-up at 18-24 months * high risk patients: initial follow-up CT at 6-12 months and then at 18-24 months if no change Will need outpatient follow up (4) Myelodysplastic syndrome: Hx of anemia of chronic disease continue Hydrea 5 units PRBC transfused during hospital course so far Continue Folic acid and Vitamin B ( MCV> 100 ) Monitor CBC UTI : urine culture grew gram negative bacilli /Klebsiella completed total 4 days of abx Stable DVT PROPHYLAXIS: scd and teds no anticoagulation due to GI bleed /acute blood loss anemia DISPOSITION : Plan to discharge home with home health Admission and Anticipated Discharge Date Admission Date: December 17, 2019 Subjective Pt was seen and examined Lying in bed with no distress Pt said that she continues to have mild abdominal discomfort She said that last night she had some blood in her stool Denies any chest pain, palpitation, dizziness and SOB Physical Exam Physical Exam: General- No acute distress Head- atraumatic Eyes- PERRL, EOMI, ENT- oropharynx clear Neck- supple, no JVD Lungs- clear to auscultation Heart- regular rhythm; no murmur Abdomen- normal bowel sounds, soft, nontender Extremities- no calf tenderness Neuro- alert, oriented x 3; PERRL, EOMI; no facial palsy; no dysarthria Skin- warm & dry Results & Data Results & Data ([facility]) Vital Signs (Past 12 Hours) Vital Signs Temp Pulse Pulse Resp BP BP Pulse Ox 12/26/19 15:30 36.5 C 76 20 137/63 92 12/26/19 13:18 36.6 C 82 16 111/72 92 12/26/19 12:53 36.6 C 78 16 100/82 92 12/26/19 11:53 36.3 C L 80 18 115/57 L 92 12/26/19 11:23 36.6 C 75 16 111/66 94 12/26/19 11:08 36.7 C 82 16 111/61 91 12/26/19 10:50 36.5 C 84 16 114/65 93 12/26/19 07:49 36.5 C 78 18 108/54 L 96 (1) Closed fracture of inferior pubic ramus Encounter type: initial encounter Laterality: left Qualified Code(s): S32.592A - Other specified fracture of left pubis, initial encounter for closed fracture (2) Syncope Syncope type: unspecified Qualified Code(s): R55 - Syncope and collapse
[2019-12-26] MEDS: TEMAZEPAM 15 MG CAPSULE PO PRN (23:27)
[2019-12-27] MEDS: ONDANSETRON INJ 2 MG/ML 2 ML VIAL IV PRN (00:04)
[2019-12-27] MEDS: RASPBERRY SYRUP 5 ML UDP PO SCH ×4 (05:53→23:25)
[2019-12-27] MEDS: VANCOMYCIN HCL 500 MG/10 ML SOLN PO SCH ×4 (05:53→23:25)
[2019-12-27 06:00] LABS: Hematocrit (blood only) 27.3 % (37-47); Hemoglobin 8.9 g/dL (12.0-16.0); Mean Corpuscular Hemoglobin 31.3 pg (25-34); Mean Corpuscular Hgb Conc 32.6 g/dL (32-36); Mean Corpuscular Volume 96.1 fL (80-100); Mean Platelet Volume 11.8 fL (7.4-10.4); Nucleated RBC # (auto) 0.11 K/uL (0-0); Nucleated RBC % (auto) 0.9 %; Platelet Count 787 K/uL (130-400); RDW Coefficient of Variation 25.7 % (11.5-14.5); RDW Standard Deviation 79.1 fL (36.4-46.3); Red Blood Count 2.84 M/uL (4.2-5.4); White Blood Count 12.25 K/uL (4.8-10.8)
[2019-12-27 06:40] LABS: BUN Creatinine Ratio 14.8 (10-20); Calcium 8.2 mg/dl (8.5-10.1); Creatinine Clr Calc Pharmacy 49.1 ml/min; Est GFR (African American) 90.6; Est GFR (Non-African American) 78.1; Potassium 3.9 mmol/L (3.5-5.1)
[2019-12-27] MEDS: UMECLIDINIUM BROMIDE 62.5MCG/BLISTER 7 PUFFS/INHALER INH SCH (08:08)
[2019-12-27] MEDS: FLUTICASONE/VILANTEROL 100/25MCG 14 PUFFS/INHALER INH SCH (08:08)
[2019-12-27] MEDS: NICOTINE 21 MG/24 HR TDSY TD SCH (09:09)
[2019-12-27] MEDS: PANTOprazole 40 MG TAB PO SCH ×2 (09:10→22:20)
[2019-12-27] MEDS: MoRPHine SULFATE 2 MG/ML CARP IV PRN ×3 (11:41→19:40)
--- NOTE | 2019-12-27 17:32 | Hospitalist Progress Note ---
Date of Service December 27, 2019 Assessment & Plan (1) Syncope: Possible related to orthostatic vs symptomatic anemia or hypotension CT head on admission showed no acute intracranial abnormality ECHO showed no wall motion abnormality with EF 55 to 60 % Received IV fluid on admission No arrhythmia noted on tele Hemoglobin 8.9 today after received 1 unit prbc yesterday Clinically improvement (2) Duodenal ulcer: Anemia Acute GI bleed with multiple melanotic stool Hemoglobin dropped to 6.5, currently 8.9 Received 1 unit PRBC yesterday (Received 5 units PRBC so far during hospital course ) GI on board s/p EGD showed duodenal ulcer possible NSAID induced ( takes Exedrine for Migrain headache /arthitis pain ) IV PPI gtt to be continued for total 72 hrs as per GI Will transition to PO PPI BID for 2 months Case discussed with GI today If pt continues to have GI bleed and hgb continues to drop, GI might consider to scope her next week Advised pt to avoid any NSAID Continue monitor H/H and transfused if hemoglobin drops below 7 Will check stool for h pylori Continue full liquid diet (3) Closed fracture of inferior pubic ramus: Secondary to fall CT of pelvis showed Acute left inferior ischiopubic ring fracture. CT hip showed acute fracture of the left inferior ischial pubic ramus Ortho on board recommended conservative management no surgical intervention as per ortho Partial weightbearing on the left lower extremity at this time as per ortho Continue PT/OT recommends pt may return home with home health /home PT follow up at orthopedics clinic in 2 weeks for repeat Xray Fall precaution LUNG NODULE : incidental finding : CT chest non contrast showed 4 noncalcified pulmonary nodules measuring up to 6 mm. 2 of these nodules are either new or increased in size dating back to 2005. These are pathologically indeterminant and follow-up is recommended as per the Fleischner criteria. See below. SOLID LUNG NODULES Solitary nodule size: 6-8 mm * low risk patients: follow-up at 6-12 months, then consider further follow-up at 18-24 months * high risk patients: initial follow-up CT at 6-12 months and then at 18-24 months if no change Will need outpatient follow up (4) Myelodysplastic syndrome: Hx of anemia of chronic disease continue Hydrea 5 units PRBC transfused during hospital course so far Continue Folic acid and Vitamin B ( MCV> 100 ) Monitor CBC UTI : urine culture grew gram negative bacilli /Klebsiella completed total 4 days of abx Stable DVT PROPHYLAXIS: scd and teds no anticoagulation due to GI bleed /acute blood loss anemia DISPOSITION : Plan to discharge home with home health Admission and Anticipated Discharge Date Admission Date: December 17, 2019 Subjective Pt was seen and examined Lying in bed with no distress Pt said that she had 2 episodes of dark stools last night She said that she is having pain in her right shoulder She said that she continues to have stomach discomfort Denies any chest pain, palpitation, dizziness and SOB Physical Exam Physical Exam: General- No acute distress Head- atraumatic Eyes- PERRL, EOMI, ENT- oropharynx clear Neck- supple, no JVD Lungs- clear to auscultation Heart- regular rhythm; no murmur Abdomen- normal bowel sounds, soft, nontender Extremities- no calf tenderness, right shoulder tenderness with no decrease ROM Neuro- alert, oriented x 3; PERRL, EOMI; no facial palsy; no dysarthria Skin- warm & dry Results & Data Results & Data ([facility]) Vital Signs (Past 12 Hours) Vital Signs Temp Pulse Pulse Resp BP BP Pulse Ox 12/27/19 15:00 36.5 C 70 16 104/62 94 12/27/19 14:55 74 12/27/19 12:00 36.5 C 74 16 111/72 94 12/27/19 08:00 77 12/27/19 07:45 36.7 C 81 18 105/65 91 (1) Closed fracture of inferior pubic ramus Encounter type: initial encounter Laterality: left Qualified Code(s): S32.592A - Other specified fracture of left pubis, initial encounter for closed fracture (2) Syncope Syncope type: unspecified Qualified Code(s): R55 - Syncope and collapse
--- NOTE | 2019-12-27 18:44 | XRay Report ---
RIGHT SHOULDER 3 VIEWS CLINICAL HISTORY: Right shoulder pain. FINDINGS: 3 views of the right shoulder are obtained. No prior studies are available for comparison a t the time of dictation. The skeletal structures are osteopenic. There is no radiographic evidence of fracture or dislocation. The glenohumeral articulation is preserved noting mild osteoarthritic singh e. Productive degenerative change is seen at the acromioclavicular joint. The overlying soft tissues are normal as imaged. Surgical clips are seen in the right axilla. Advanced emphysematous change is n oted in the right lung. IMPRESSION: 1. No acute bony abnormality is identified. 2. Osteopenia and degenerative change as above. Electronically signed by: Ezio Darden M.D. 12/27/2019 6:42 PM
[2019-12-27] MEDS: TEMAZEPAM 15 MG CAPSULE PO PRN (22:18)
[2019-12-27] MEDS: LACTOBACILLUS ACIDOPHILUS (FLORANEX) TAB PO SCH (22:19)
[2019-12-27] MEDS: PREGABALIN 75 MG CAP PO SCH (22:23)
[2019-12-28] MEDS: VANCOMYCIN HCL 500 MG/10 ML SOLN PO SCH ×4 (05:48→23:36)
[2019-12-28] MEDS: RASPBERRY SYRUP 5 ML UDP PO SCH ×4 (05:48→23:36)
[2019-12-28 06:04] LABS: Hematocrit (blood only) 28.3 % (37-47); Hemoglobin 9.2 g/dL (12.0-16.0); Mean Corpuscular Hemoglobin 31.6 pg (25-34); Mean Corpuscular Hgb Conc 32.5 g/dL (32-36); Mean Corpuscular Volume 97.3 fL (80-100); Mean Platelet Volume 12.2 fL (7.4-10.4); Nucleated RBC # (auto) 0.13 K/uL (0-0); Platelet Count 878 K/uL (130-400); RDW Coefficient of Variation 25.5 % (11.5-14.5); RDW Standard Deviation 80.4 fL (36.4-46.3); Red Blood Count 2.91 M/uL (4.2-5.4)
[2019-12-28] MEDS: NICOTINE 21 MG/24 HR TDSY TD SCH (07:55)
[2019-12-28] MEDS: HYDROXYUREA 500 MG CAP PO SCH (07:56)
[2019-12-28] MEDS: PANTOprazole 40 MG TAB PO SCH ×2 (07:56→20:53)
[2019-12-28] MEDS: UMECLIDINIUM BROMIDE 62.5MCG/BLISTER 7 PUFFS/INHALER INH SCH (07:56)
[2019-12-28] MEDS: FLUTICASONE/VILANTEROL 100/25MCG 14 PUFFS/INHALER INH SCH (07:56)
[2019-12-28] MEDS: LACTOBACILLUS ACIDOPHILUS (FLORANEX) TAB PO SCH ×4 (07:57→20:53)
[2019-12-28] MEDS: CYANOCOBALAMIN 500 MCG TABLET (VITAMIN B-12) PO SCH (07:57)
[2019-12-28] MEDS: FOLIC ACID 1 MG TAB PO SCH (07:57)
[2019-12-28] MEDS: PREGABALIN 75 MG CAP PO SCH ×2 (08:01→20:53)
--- NOTE | 2019-12-28 15:54 | Hospitalist Progress Note ---
Date of Service December 28, 2019 Assessment & Plan (1) Syncope: Possible related to orthostatic vs symptomatic anemia or hypotension CT head on admission showed no acute intracranial abnormality ECHO showed no wall motion abnormality with EF 55 to 60 % Received IV fluid on admission No arrhythmia noted on tele Hemoglobin increased to 9.2 today Clinically improvement (2) Duodenal ulcer: Anemia Acute GI bleed with multiple melanotic stool Hemoglobin dropped to 6.5, currently hgb improves to 9.2 today Received 5 units PRBC so far during hospital course GI on board s/p EGD showed duodenal ulcer possible NSAID induced ( takes Exedrine for Migrain headache /arthitis pain ) IV PPI gtt to be continued for total 72 hrs as per GI Will transition to PO PPI BID for 2 months Case discussed with GI today If pt continues to have GI bleed and hgb continues to drop, GI might consider to scope her next week Advised pt to avoid any NSAID Continue monitor H/H and transfused if hemoglobin drops below 7 Will check stool for h pylori Diet advanced to low fiber (3) Closed fracture of inferior pubic ramus: Secondary to fall CT of pelvis showed Acute left inferior ischiopubic ring fracture. CT hip showed acute fracture of the left inferior ischial pubic ramus Ortho on board recommended conservative management no surgical intervention as per ortho Partial weightbearing on the left lower extremity at this time as per ortho Continue PT/OT recommends pt may return home with home health /home PT follow up at orthopedics clinic in 2 weeks for repeat Xray Will give a script for a rolling walker with seat Fall precaution LUNG NODULE : incidental finding : CT chest non contrast showed 4 noncalcified pulmonary nodules measuring up to 6 mm. 2 of these nodules are either new or increased in size dating back to 2005. These are pathologically indeterminant and follow-up is recommended as per the Fleischner criteria. See below. SOLID LUNG NODULES Solitary nodule size: 6-8 mm * low risk patients: follow-up at 6-12 months, then consider further follow-up at 18-24 months * high risk patients: initial follow-up CT at 6-12 months and then at 18-24 months if no change Will need outpatient follow up (4) Myelodysplastic syndrome: Hx of anemia of chronic disease continue Hydrea 5 units PRBC transfused during hospital course so far Continue Folic acid and Vitamin B ( MCV> 100 ) Hgb 9.2 and platelet 878 Continue monitor CBC UTI : urine culture grew gram negative bacilli /Klebsiella completed total 4 days of abx Stable DVT PROPHYLAXIS: scd and teds no anticoagulation due to GI bleed /acute blood loss anemia DISPOSITION : Plan to discharge home with home health tomorrow Admission and Anticipated Discharge Date Admission Date: December 17, 2019 Subjective Pt was seen and examined Lying in bed with no distress Pt said that she feels a little better She said that she had no diarrhea today Denies any chest pain, palpitation, dizziness and SOB Physical Exam Physical Exam: General- No acute distress Head- atraumatic Eyes- PERRL, EOMI, ENT- oropharynx clear Neck- supple, no JVD Lungs- clear to auscultation Heart- regular rhythm; no murmur Abdomen- normal bowel sounds, soft, nontender Extremities- no calf tenderness, right shoulder tenderness with no decrease ROM Neuro- alert, oriented x 3; PERRL, EOMI; no facial palsy; no dysarthria Skin- warm & dry Results & Data Results & Data ([facility]) Vital Signs (Past 12 Hours) Vital Signs Temp Pulse Resp BP Pulse Ox 12/28/19 14:51 37.0 C 81 20 96/62 L 92 12/28/19 11:08 36.9 C 74 18 91/51 L 93 12/28/19 07:25 37.1 C 88 20 93/47 L 94 12/28/19 04:55 37.0 C 76 18 115/69 90 (1) Closed fracture of inferior pubic ramus Encounter type: initial encounter Laterality: left Qualified Code(s): S32.592A - Other specified fracture of left pubis, initial encounter for closed fracture (2) Syncope Syncope type: unspecified Qualified Code(s): R55 - Syncope and collapse
[2019-12-28] MEDS: ONDANSETRON INJ 2 MG/ML 2 ML VIAL IV PRN (16:41)
[2019-12-28] MEDS: MoRPHine SULFATE 2 MG/ML CARP IV PRN ×2 (18:57→23:45)
[2019-12-28] MEDS: TEMAZEPAM 15 MG CAPSULE PO PRN (23:36)
[2019-12-29] MEDS: RASPBERRY SYRUP 5 ML UDP PO SCH ×4 (05:04→23:52)
[2019-12-29] MEDS: VANCOMYCIN HCL 500 MG/10 ML SOLN PO SCH ×4 (05:04→23:52)
[2019-12-29] MEDS: LACTOBACILLUS ACIDOPHILUS (FLORANEX) TAB PO SCH ×4 (09:03→21:03)
[2019-12-29] MEDS: HYDROXYUREA 500 MG CAP PO SCH (09:04)
[2019-12-29] MEDS: PREGABALIN 75 MG CAP PO SCH ×2 (09:04→21:03)
[2019-12-29] MEDS: CYANOCOBALAMIN 500 MCG TABLET (VITAMIN B-12) PO SCH (09:04)
[2019-12-29] MEDS: UMECLIDINIUM BROMIDE 62.5MCG/BLISTER 7 PUFFS/INHALER INH SCH (09:05)
[2019-12-29] MEDS: PANTOprazole 40 MG TAB PO SCH ×2 (09:05→21:03)
[2019-12-29] MEDS: FOLIC ACID 1 MG TAB PO SCH (09:05)
[2019-12-29] MEDS: NICOTINE 21 MG/24 HR TDSY TD SCH (09:06)
[2019-12-29] MEDS: FLUTICASONE/VILANTEROL 100/25MCG 14 PUFFS/INHALER INH SCH (09:06)
[2019-12-29 14:09] LABS: Hematocrit (blood only) 28.5 % (37-47); Hemoglobin 8.7 g/dL (12.0-16.0); Mean Corpuscular Hemoglobin 29.8 pg (25-34); Mean Corpuscular Hgb Conc 30.5 g/dL (32-36); Mean Corpuscular Volume 97.6 fL (80-100); Mean Platelet Volume 11.8 fL (7.4-10.4); Nucleated RBC # (auto) 0.07 K/uL (0-0); Nucleated RBC % (auto) 0.5 %; Platelet Count 934 K/uL (130-400); RDW Coefficient of Variation 25.5 % (11.5-14.5); RDW Standard Deviation 82.1 fL (36.4-46.3); Red Blood Count 2.92 M/uL (4.2-5.4); White Blood Count 13.19 K/uL (4.8-10.8)
--- NOTE | 2019-12-29 14:34 | Hospitalist Progress Note ---
Date of Service December 29, 2019 Assessment & Plan (1) Syncope: Possible related to orthostatic vs symptomatic anemia or hypotension CT head on admission showed no acute intracranial abnormality ECHO showed no wall motion abnormality with EF 55 to 60 % Received IV fluid on admission No arrhythmia noted on tele Hemoglobin 8.7 today Clinically improvement (2) Duodenal ulcer: Anemia Acute GI bleed with multiple melanotic stool Hemoglobin dropped to 6.5, currently hgb 8.7 today Received 5 units PRBC so far during hospital course GI on board s/p EGD showed duodenal ulcer possible NSAID induced ( takes Exedrine for Migrain headache /arthitis pain ) Received IV PPI for 3 days, then transition to PO PPI BID for 2 months GI on board If pt continues to have GI bleed and hgb continues to drop, GI might consider to scope her next week Advised pt to avoid any NSAID Continue monitor H/H and transfused if hemoglobin drops below 7 Diet advanced to low fiber (3) Closed fracture of inferior pubic ramus: Secondary to fall CT of pelvis showed Acute left inferior ischiopubic ring fracture. CT hip showed acute fracture of the left inferior ischial pubic ramus Ortho on board recommended conservative management no surgical intervention as per ortho Partial weightbearing on the left lower extremity at this time as per ortho Continue PT/OT recommends pt may return home with home health /home PT follow up at orthopedics clinic in 2 weeks for repeat Xray Will give a script for a rolling walker with seat Fall precaution LUNG NODULE : incidental finding : CT chest non contrast showed 4 noncalcified pulmonary nodules measuring up to 6 mm. 2 of these nodules are either new or increased in size dating back to 2005. These are pathologically indeterminant and follow-up is recommended as per the Fleischner criteria. See below. SOLID LUNG NODULES Solitary nodule size: 6-8 mm * low risk patients: follow-up at 6-12 months, then consider further follow-up at 18-24 months * high risk patients: initial follow-up CT at 6-12 months and then at 18-24 months if no change Will need outpatient follow up (4) Myelodysplastic syndrome: Hx of anemia of chronic disease continue Hydrea 5 units PRBC transfused during hospital course so far Continue Folic acid and Vitamin B ( MCV> 100 ) Hgb 8.7 and platelet 930 Continue monitor CBC Thrombocytosis Platelet 930 Continue hydroxyurea Will discuss with Dr. Chavez Monitor CBC UTI : urine culture grew gram negative bacilli /Klebsiella completed total 4 days of abx Stable DVT PROPHYLAXIS: scd and teds no anticoagulation due to GI bleed /acute blood loss anemia DISPOSITION : Plan to discharge home with home health tomorrow Admission and Anticipated Discharge Date Admission Date: December 17, 2019 Subjective Pt was seen and examined Lying in bed with no distress Pt said that she feels much better She said that her last bowel movement was Monday Denies any chest pain, palpitation, dizziness nausea and vomiting Physical Exam Physical Exam: General- No acute distress Head- atraumatic Eyes- PERRL, EOMI, ENT- oropharynx clear Neck- supple, no JVD Lungs- clear to auscultation Heart- regular rhythm; no murmur Abdomen- normal bowel sounds, soft, nontender Extremities- no calf tenderness, right shoulder tenderness with no decrease ROM Neuro- alert, oriented x 3; PERRL, EOMI; no facial palsy; no dysarthria Skin- warm & dry Results & Data Results & Data ([facility]) Vital Signs (Past 12 Hours) Vital Signs Temp Pulse Resp BP Pulse Ox 12/29/19 07:11 36.6 C 78 16 94/57 L 98 (1) Closed fracture of inferior pubic ramus Encounter type: initial encounter Laterality: left Qualified Code(s): S32.592A - Other specified fracture of left pubis, initial encounter for closed fracture (2) Syncope Syncope type: unspecified Qualified Code(s): R55 - Syncope and collapse
[2019-12-29] MEDS ORDERED: TRAMADOL HCL 50 MG TABLET PO PRN ×2 (19:36→19:52)
[2019-12-29] MEDS: OXYCODONE HCL IR 5 MG TAB (IMMEDIATE RELEASE) PO PRN (21:42)
[2019-12-29] MEDS ORDERED: HYDROmorphone INJ 0.5 MG/0.5 ML SYR IV STA (22:41)
[2019-12-29] MEDS: TEMAZEPAM 15 MG CAPSULE PO PRN (23:52)
[2019-12-30 05:42] LABS: Hematocrit (blood only) 27.8 % (37-47); Hemoglobin 8.8 g/dL (12.0-16.0); Mean Corpuscular Hemoglobin 31.2 pg (25-34); Mean Corpuscular Hgb Conc 31.7 g/dL (32-36); Mean Corpuscular Volume 98.6 fL (80-100); Mean Platelet Volume 11.5 fL (7.4-10.4); Nucleated RBC # (auto) 0.06 K/uL (0-0); Nucleated RBC % (auto) 0.6 %; Platelet Count 816 K/uL (130-400); RDW Coefficient of Variation 24.9 % (11.5-14.5); RDW Standard Deviation 82.2 fL (36.4-46.3); Red Blood Count 2.82 M/uL (4.2-5.4); White Blood Count 11.09 K/uL (4.8-10.8)
[2019-12-30] MEDS: VANCOMYCIN HCL 500 MG/10 ML SOLN PO SCH ×3 (06:16→17:17)
[2019-12-30] MEDS: RASPBERRY SYRUP 5 ML UDP PO SCH ×3 (06:16→17:16)
[2019-12-30] MEDS: FLUTICASONE/VILANTEROL 100/25MCG 14 PUFFS/INHALER INH SCH (08:57)
[2019-12-30] MEDS: UMECLIDINIUM BROMIDE 62.5MCG/BLISTER 7 PUFFS/INHALER INH SCH (08:57)
[2019-12-30] MEDS: CYANOCOBALAMIN 500 MCG TABLET (VITAMIN B-12) PO SCH (08:58)
[2019-12-30] MEDS: NICOTINE 21 MG/24 HR TDSY TD SCH ×2 (08:58→09:01)
[2019-12-30] MEDS: LACTOBACILLUS ACIDOPHILUS (FLORANEX) TAB PO SCH ×3 (08:58→17:16)
[2019-12-30] MEDS: FOLIC ACID 1 MG TAB PO SCH (08:58)
[2019-12-30] MEDS: PANTOprazole 40 MG TAB PO SCH (08:58)
[2019-12-30] MEDS: PREGABALIN 75 MG CAP PO SCH (08:58)
[2019-12-30] MEDS: HYDROXYUREA 500 MG CAP PO SCH (09:09)
--- NOTE | 2019-12-30 15:17 | Hospitalist Progress Note ---
Date of Service December 30, 2019 Assessment & Plan (1) Syncope: Possible related to orthostatic vs symptomatic anemia or hypotension CT head on admission showed no acute intracranial abnormality ECHO showed no wall motion abnormality with EF 55 to 60 % Received IV fluid on admission No arrhythmia noted on tele Hemoglobin 8.8 today Clinically improvement (2) Duodenal ulcer: Anemia Acute GI bleed with multiple melanotic stool FOBT positive Hemoglobin dropped to 6.5, currently hgb 8.8 today Received 5 units PRBC so far during hospital course GI on board s/p EGD showed duodenal ulcer possible NSAID induced ( takes Exedrine for Migrain headache /arthitis pain ) Received IV PPI for 3 days, then transition to PO PPI BID for 2 months GI on board If pt continues to have GI bleed and hgb continues to drop, GI might consider to scope her next week Advised pt to avoid any NSAID Continue monitor H/H and transfused if hemoglobin drops below 7 Tolerated diet Check CBC in 1 week (3) Closed fracture of inferior pubic ramus: Secondary to fall CT of pelvis showed Acute left inferior ischiopubic ring fracture. CT hip showed acute fracture of the left inferior ischial pubic ramus Ortho on board recommended conservative management no surgical intervention as per ortho Partial weightbearing on the left lower extremity at this time as per ortho Continue PT/OT She does not want to go to rehab recommends pt may return home with home health /home PT follow up at orthopedics clinic in 1-2 weeks for repeat Xray Fall precaution LUNG NODULE : incidental finding : CT chest non contrast showed 4 noncalcified pulmonary nodules measuring up to 6 mm. 2 of these nodules are either new or increased in size dating back to 2005. These are pathologically indeterminant and follow-up is recommended as per the Fleischner criteria. See below. SOLID LUNG NODULES Solitary nodule size: 6-8 mm * low risk patients: follow-up at 6-12 months, then consider further follow-up at 18-24 months * high risk patients: initial follow-up CT at 6-12 months and then at 18-24 months if no change Will need outpatient follow up (4) Myelodysplastic syndrome: Hx of anemia of chronic disease 5 units PRBC transfused during hospital course so far Continue Folic acid and Vitamin B ( MCV> 100 ) Hgb 8.8 and platelet 816 Case discussed with Oncology Dr. Chavez about the elevated platelet Dr. Chavez recommended to continue the Hydroxyurea Will check CBC in 1 week Thrombocytosis Platelet dropped from 930 to 816 today Continue hydroxyurea No aspirin due to GI bleed Follow up with Oncology Check CBC in 1 week Diarrhea Stool for C-diff gene positive, but c-diff toxin negative Was starting on Vanco PO on 12/22 Diarrhea resolved Will complete course of Vanco UTI : urine culture grew gram negative bacilli /Klebsiella completed total 4 days of abx Stable Tobacco abuse On Nicotine Patch Counseling on smoking cessation DVT PROPHYLAXIS: scd and teds no anticoagulation due to GI bleed /acute blood loss anemia DISPOSITION : Plan to discharge home with home health today Admission and Anticipated Discharge Date Admission Date: December 17, 2019 Subjective Pt was seen and examined Lying in bed with no distress Pt said that she feels ok She said that she does not have anymore GI bleed She said that she tolerated her diet Denies any chest pain, palpitation, dizziness and SOB Physical Exam Physical Exam: General- No acute distress Head- atraumatic Eyes- PERRL, EOMI, ENT- oropharynx clear Neck- supple, no JVD Lungs- clear to auscultation Heart- regular rhythm; no murmur Abdomen- normal bowel sounds, soft, nontender Extremities- no calf tenderness, right shoulder tenderness with no decrease ROM Neuro- alert, oriented x 3; PERRL, EOMI; no facial palsy; no dysarthria Skin- warm & dry Results & Data Results & [facility] ([facility]) Vital Signs (Past 12 Hours) Vital Signs Temp Pulse Resp BP Pulse Ox 12/30/19 07:31 36.9 C 88 16 91/60 L 92 (1) Closed fracture of inferior pubic ramus Encounter type: initial encounter Laterality: left Qualified Code(s): S32.592A - Other specified fracture of left pubis, initial encounter for closed fracture (2) Syncope Syncope type: unspecified Qualified Code(s): R55 - Syncope and collapse
[2019-12-30] MEDS: OXYCODONE HCL IR 5 MG TAB (IMMEDIATE RELEASE) PO PRN (16:50)
--- NOTE | 2020-01-02 16:40 | Discharge Summary ---
Date of Service December 30, 2019 Admission HPI Per Admitting Provider History obtained from patient, family, and records. Medical history is significant for COPD, ongoing tobacco abuse, hx PVD, hx breast cancer, right, status post surgery, chemoradiation, thrombocythemia on Hydrea therapy, myelodysplastic syndrome, chronic anemia (baseline hemoglobin of 8-9), mood/anxiety disorder. Recent confinement June 2019 from unresponsiveness secondary to home medications. Patient noted dysuria symptoms the last few days without fever, chills, or flank pain. Patient got up to reach for a bowl at home hours ago. Patient noted lightheadedness followed by syncopal event, possible head trauma post syncope. Patient woke up with achy left hip pain, unable to get up. Does not know how long she was on the floor. No incontinence or tongue injury noted. Patient called out for her daughter who alerted EMS. Patient brought to the ER for evaluation. Patient given IV Ceftriaxone at the ER for UTI. Medical History as above Surgical History : Cholecystectomy, mastectomy right, hysterectomy, hip surgery Family History : Hypertension Personal/social history past tobacco abuse, no EtOH intake, lives with daughter Admission Exam Per Admitting Provider ENERAL: Comfortable, pleasant, underweight, no respiratory distress SKIN: Pallor , warm HEENT: Pale palpebral conjunctivae, no ptosis, dry buccal mucosa NECK : Supple, no tenderness CHEST : Right breast prosthesis, decreased breath sounds , no tenderness HEART : RRR, no obvious murmurs ABDOMEN: Some distention, minimal hypogastric tenderness EXTREMITIES : No LE swelling/tenderness, left elbow ecchymosis, no other conspicuous deformities noted NEUROLOGIC : Coherent, no facial asymmetry, no other gross focality Principal Diagnosis SYMPTOMATIC ANEMIA URINARY TRACT INFECTION DEHYDRATION MYELODYSPLASTIC SYNDROME Discharge Exam General- No acute distress Head- atraumatic Eyes- PERRL, EOMI, ENT- oropharynx clear Neck- supple, no JVD Lungs- clear to auscultation Heart- regular rhythm; no murmur Abdomen- normal bowel sounds, soft, nontender Extremities- no calf tenderness, right shoulder tenderness with no decrease ROM Neuro- alert, oriented x 3; PERRL, EOMI; no facial palsy; no dysarthria Skin- warm & dry Discharge Data Allergies Allergy/AdvReac Type Severity Reaction Status Date / Time latex Allergy Intermediate HIVES Verified 12/17/19 20:19 nickel Allergy Intermediate Hives/Itchi Verified 12/17/19 20:19 ness Iodinated Contrast Media AdvReac Mild Diarrhea Verified 12/17/19 20:19 [Iodinated Contrast- Oral and IV Dye] Lobster Allergy Severe HIVES Uncoded 12/17/19 20:19 Consultations 12/17/19 22:53 ED Decision to Admit Stat 12/18/19 01:05 Consult Case Management - Discharge Planning Routine Consult Orthopedic Surgery Routine 12/22/19 13:54 Consult Gastroenterology Routine 12/23/19 09:28 Consult Anesthesiology Routine Procedures Performed Operation Date: 12/23/19 08:30 Actual Procedures p Esophagogastroduodenoscopy - Lucía Suvock Ordered Studies 12/17/19 19:35 CT cervical spine wo con Stat CT head/brain wo con Stat 12/17/19 21:33 CT hip LT wo con Stat CT pelvis wo con Stat 12/20/19 21:11 CT chest wo con Routine 12/21/19 10:22 US venous doppler LE BI Routine 12/23/19 08:46 CT abd pelvis wo con Routine CT OF THE CERVICAL SPINE CLINICAL HISTORY: Neck pain status post trauma COMPARISON STUDY: No previous studies for comparison. CT DOSE: TECHNIQUE: CT scan of the cervical spine was performed from the skull base to the thoracic inlet. Images are reviewed in the axial, sagittal, and coronal planes. IV contrast was not administered for this examination. A dose lowering technique was utilized adhering to the principles of ALARA. FINDINGS: There is a multinodular thyroid gland. There is no apical pneumothorax. There is apical pulmonary emphysema The prevertebral soft tissues are normal. No fractures or traumatic subluxations are visualized. There are multilevel degenerative changes. Minor retrolisthesis of C3 on C4 and C4 on C5 is felt to be degenerative. There is a prominent disc osteophyte complex at the C6-7 level with secondary spinal canal narrowing. IMPRESSION: No evidence of acute fracture or traumatic subluxation. ACT 112: Negative or not required by law. Electronically signed by: Sher Lira M.D. 12/17/2019 8:47 PM Dictated: 12/17/192043 Transcribed: 12/17/192043 XR chest 1V portable CLINICAL HISTORY: weakness TRAUMA COMPARISON STUDY: 07/01/2019 FINDINGS: The cardiac and mediastinal contours remain stable. Surgical clips project over the right axillary region. Increased density the right hemithorax is felt to be secondary to a breast prosthesis. There is no acute parenchymal consolidation. There is minimal blunting of the lateral costophrenic angles. There is an old proximal left humeral fracture. Calcified hilar lymph nodes are again evident. There is no overt failure.[ IMPRESSION: Chronic changes as described above. No acute findings. ACT 112: Negative or not required by law. Electronically signed by: Sher Lira M.D. 12/17/2019 8:13 PM Dictated: 12/17/192010 Transcribed: 12/17/192010 CT head/brain wo con CLINICAL HISTORY: Head pain status post trauma COMPARISON STUDY: MRI dated 07/01/2019, CT scan dated 06/30/2019 TECHNIQUE: Axial CT of the brain is performed from the vertex to the skull base. IV contrast was not administered for this examination. A dose lowering technique was utilized adhering to the principles of ALARA. CT DOSE: 843.28 mGy.cm FINDINGS: No intra or extra-axial mass lesions are visualized. There is no CT evidence of acute cortical infarction. There is no evidence of midline shift. There is no acute hemorrhage. No calvarial fractures are visualized. There are moderate white matter hypodensities likely on a small vessel basis. There is mild ventricular prominence which is felt to be secondary to volume loss. There is no evidence of acute sinusitis IMPRESSION: No acute intracranial findings ACT 112: Negative or not required by law. Electronically signed by: Sher Lira M.D. 12/17/2019 8:44 PM Dictated: 12/17/192042 Transcribed: 12/17/192042 XR hip LT 2V w pelvis CLINICAL HISTORY: Left hip pain status post trauma COMPARISON: May 2017 DISCUSSION: There is a total left hip arthroplasty. No acute fractures or dislocations are visualized. IMPRESSION: Left hip arthroplasty. No acute fractures or dislocations identified ACT 112: Negative or not required by law. Electronically signed by: Sher Lira M.D. 12/17/2019 8:13 PM Dictated: 12/17/192012 Transcribed: 12/17/192012 CT hip LT wo con CT DOSE: 362.77 mGy.cm CLINICAL HISTORY: Left hip pain status post trauma TECHNIQUE: Helical images were acquired in the transverse plane. Sagittal coronal reformatted images were acquired. A dose lowering technique was utilized adhering to the principles of ALARA. COMPARISON STUDY: October 2018 FINDINGS: There is a total left hip arthroplasty. There is no evidence of dislocation. There is acute fracture of the inferior left ischio pubic ring. There is a chronic cortical lucency involving the medial aspect of the proximal femoral shaft consistent with a chronic periprosthetic fracture. IMPRESSION: 1. Acute fracture of the left inferior ischial pubic ramus 2. Total left hip arthroplasty. No evidence of dislocation 3. 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 This remains unchanged from the preceding study ACT 112: Negative or not required by law. Electronically signed by: Sher Lira M.D. 12/17/2019 10:15 PM Dictated: 12/17/192210 Transcribed: 12/17/192210 CT pelvis wo con CT DOSE: CLINICAL HISTORY: Pelvic pain status post trauma TECHNIQUE: Helical images were acquired in the transverse plane. Sagittal and coronal reformatted images were acquired. A dose lowering technique was uti lized adhering to the principles of ALARA. COMPARISON STUDY: January 2019 FINDINGS: There is a partially visualized 5 cm right renal cyst. There is no ascites. The bones are osteopenic. There are postsurgical changes of a total left hip arthroplasty. There are fractures of the left inferior pubic ramus. There is no evidence for SI joint diastases. There is no evidence for symphysis diastases. There is a stable periprosthetic fracture involving the medial cortex of the subtrochanteric left femur. IMPRESSION: 1. Acute left inferior ischiopubic ring fracture. 2. No evidence of SI joint diastases. No evidence of symphysis diastases. 3. Total left hip arthroplasty. 4. Osteopenia ACT 112: Negative or not required by law. Electronically signed by: Sher Lira M.D. 12/17/2019 10:17 PM Dictated: 12/17/192206 Transcribed: 12/17/192210 CT SCAN OF THE CHEST WITHOUT IV CONTRAST CLINICAL HISTORY: Fever. Dyspnea. COMPARISON STUDY: Chest x-ray dated 12/17/2019. Chest CT dated 05/01/2006. TECHNIQUE: CT scan of the thorax was performed from the thoracic inlet to the upper abdomen. Images are reviewed in the axial, sagittal, and coronal planes. IV contrast was not administered for this examination as per the referring clinician. A dose lowering technique was utilized adhering to the principles of ALARA. CT DOSE: 198.09 mGy.cm FINDINGS: Thyroid: Imaged portions of the thyroid gland are normal in size and heterogeneous in attenuation. Thoracic aorta: There is atherosclerotic calcification of the thoracic aorta, which is normal in caliber and demonstrates standard 3-vessel arch anatomy. Heart: The heart is normal in size and without pericardial effusion. The coronary arteries are densely calcified. There is diminished attenuation of the cardiac blood pool as compared to the myocardium suggesting anemia. Lungs and pleural spaces: There is advanced emphysema. The trachea and central airways are clear. No airspace consolidation is seen typical for pneumonia and there is no pleural effusion. Linear scarring/atelectasis is noted at the right lung base. A 6 mm nodule in the right middle lobe on image #210 and a 4 mm right upper lobe nodule on image #162 been present dating back to 2005. A 4 mm right apical nodule seen on image #49 and a 4 mm right lower lobe nodule seen on image #165 are new or increased in size from 2006. Scattered calcified granulomas are observed. Mediastinum: There is no mediastinal lymphadenopathy. Dilan: There are calcified left hilar nodes. The dilan are not well assessed without IV contrast. Axillae: Surgical clips are noted in the right axilla. There is no axillary lymphadenopathy. Upper abdomen: There is a small hiatal hernia. There is a small nonobstructing left renal calculus. Skeletal structures: The skeletal structures are osteopenic. There is a moderate compression deformity of T12. Degenerative change is noted in the shoulders and thoracic spine. Chronic posttraumatic deformity is seen in the left proximal humerus. No lytic or blastic bony lesions are seen. Soft tissues: The patient is cachectic. The right breast is surgically absent with a breast implant in place. IMPRESSION: 1. Advanced emphysema. 2. There is no airspace consolidation typical for pneumonia or pleural effusion. 3. There are 4 noncalcified pulmonary nodules measuring up to 6 mm. 2 of these nodules are either new or increased in size dating back to 2005. These are pathologically indeterminant and follow-up is recommended as per the Fleischner criteria. See below. 4. Additional findings as above. Please refer to below summary of Fleischner criteria recommendations for follow- up of incidental CT nodules (Jacques Patel, Guidelines for management of small pulmonary nodules detected on CT scans: A statement from the Fleischner Society, Radiology 237: [phone].) SOLID NODULES Solitary nodule size: <6 mm * low risk patients: no follow-up needed * high risk patients: optional CT at 12 months Solitary nodule size: 6-8 mm * low risk patients: follow-up at 6-12 months, then consider further follow-up at 18-24 months * high risk patients: initial follow-up CT at 6-12 months and then at 18-24 months if no change Solitary nodule size: >8 mm * either low or high risk patients - consider follow-up CT at 3 months, and/or CT-PET, and/or biopsy Multiple nodules size: <6 mm * low risk patients: no routine follow-up * high risk patients: optional CT at 12 months Multiple nodules size: 6-8 mm * low risk patients: follow-up at 3-6 months, then consider further follow-up at 18-24 months * high risk patients: follow-up at 3-6 months, then at 18-24 months if no change Multiple nodules size: >8 mm * low risk patients: follow-up at 3-6 months, then consider further follow-up at 18-24 months * high risk patients: follow-up at 3-6 months, then at 18-24 months if no change Note: newly detected indeterminate nodule in persons 35 years of age or older. * low risk patients: minimal or absent history of smoking and/or other known risk factors * high risk patients: history of smoking or of other known risk factors (e.g. first degree relative with lung cancer, or exposure to asbestos, radon, uranium) * if a nodule up to 8 mm is partly solid or is ground glass further follow-up is required after 24 months to exclude possible slow growing adenocarcinoma (AKIN) SUBSOLID NODULES Solitary pure ground-glass nodule * nodule size <6 mm - no CT follow-up required * nodule size >=6 mm - follow-up CT at 6-12 months, then every 2 years until 5 years Solitary part-solid nodule * nodule size <6 mm - no CT follow-up required * nodule size >=6 mm - follow-up CT at 3-6 months. If unchanged, and solid component remains <6 mm, then annual follow-up for 5 years Multiple subsolid nodules * nodule size <6 mm - follow-up CT at 3-6 months, consider further follow-up at 2 and 4 years if stable * nodule size >=6 mm - follow-up CT at 3-6 months, subsequent management based on the most suspicious nodule(s) ACT 112: Negative or not required by law. Electronically signed by: Ezio Darden M.D. 12/21/2019 9:43 AM Dictated: 12/21/19 0934 Transcribed: 12/21/19 09 ULTRASOUND BILATERAL LOWER EXTREMITY VENOUS CLINICAL HISTORY: Elevated d-dimer. COMPARISON STUDY: No priors. TECHNIQUE: Real-time, grayscale, and color Doppler sonography of the deep veins of the right and left lower extremity was performed from the inguinal crease to the calf. Compression and augmentation were utilized. FINDINGS: There is no sonographic evidence of deep venous thrombosis identified in the right or left lower extremity. The common femoral, superficial femoral, and popliteal veins are patent and normally compressible bilaterally. The greater saphenous vein and the profunda femoris vein at the junction with the common femoral vein are clear in both legs. The visualized calf veins are patent bilaterally. IMPRESSION: There is no sonographic evidence of deep venous thrombosis identified in the right or left lower extremity. ACT 112: Negative or not required by law. Electronically signed by: Ezio Darden M.D. 12/21/2019 11:20 AM Dictated: 12/21/19 1120 Transcribed: 12/21/191119 CT abd pelvis wo con CT DOSE: 265.24 mGy.cm HISTORY: Pain evaluation for C diff colitis TECHNIQUE: Multiaxial CT images of the abdomen and pelvis were performed without contrast. A dose lowering technique was utilized adhering to the principles of ALARA. COMPARISON STUDY: 01/30/2019 FINDINGS: Basilar emphysematous change of the lungs. Atelectasis right base. The liver spleen and pancreas are unremarkable. Prior cholecystectomy. Right renal lower pole and renal parapelvic cyst unchanged. Mild atrophy left kidney also unchanged. Fluid-filled slightly distended sigmoid. Several small contained air foci within the sigmoid not felt to relate to pneumatosis coli. No free fluid within the pelvic cul-de-sac or pericolic gutter regions. Prior total left hip arthroplasty. IMPRESSION: 1. Mild/moderate nonspecific sigmoid colitis versus reactive ileus. 2. No evidence for abscess or collection. 3. Stable right renal parapelvic and lower pole cyst. ACT 112: Negative or not required by law. The above report was generated using voice recognition software. It may contain grammatical, syntax or spelling errors. Electronically signed by: Bandar Negro M.D. 12/23/2019 10:20 AM Dictated: 12/23/19 1015 Transcribed: 12/23/19 1015 RIGHT SHOULDER 3 VIEWS CLINICAL HISTORY: Right shoulder pain. FINDINGS: 3 views of the right shoulder are obtained. No prior studies are available for comparison at the time of dictation. The skeletal structures are osteopenic. There is no radiographic evidence of fracture or dislocation. The glenohumeral articulation is preserved noting mild osteoarthritic change. Productive degenerative change is seen at the acromioclavicular joint. The overlying soft tissues are normal as imaged. Surgical clips are seen in the right axilla. Advanced emphysematous change is noted in the right lung. IMPRESSION: 1. No acute bony abnormality is identified. 2. Osteopenia and degenerative change as above. Electronically signed by: Ezio Darden M.D. 12/27/2019 6:42 PM Dictated: 12/27/191840 Transcribed: 12/27/191840 Hospital Course (1) Syncope: Possible related to orthostatic vs symptomatic anemia or hypotension CT head on admission showed no acute intracranial abnormality ECHO showed no wall motion abnormality with EF 55 to 60 % Received IV fluid on admission No arrhythmia noted on tele Hemoglobin 8.8 today Clinically improvement (2) Duodenal ulcer: Anemia Acute GI bleed with multiple melanotic stool FOBT positive Hemoglobin dropped to 6.5, currently hgb 8.8 today Received 5 units PRBC so far during hospital course GI on board s/p EGD showed duodenal ulcer possible NSAID induced ( takes Exedrine for Migrain headache /arthitis pain ) Received IV PPI for 3 days, then transition to PO PPI BID for 2 months GI on board If pt continues to have GI bleed and hgb continues to drop, GI might consider to scope her next week Advised pt to avoid any NSAID Continue monitor H/H and transfused if hemoglobin drops below 7 Tolerated diet Check CBC in 1 week (3) Closed fracture of inferior pubic ramus: Secondary to fall CT of pelvis showed Acute left inferior ischiopubic ring fracture. CT hip showed acute fracture of the left inferior ischial pubic ramus Ortho on board recommended conservative management no surgical intervention as per ortho Partial weightbearing on the left lower extremity at this time as per ortho Continue PT/OT She does not want to go to rehab recommends pt may return home with home health /home PT follow up at orthopedics clinic in 1-2 weeks for repeat Xray Fall precaution LUNG NODULE : incidental finding : CT chest non contrast showed 4 noncalcified pulmonary nodules measuring up to 6 mm. 2 of these nodules are either new or increased in size dating back to 2005. These are pathologically indeterminant and follow-up is recommended as per the Fleischner criteria. See below. SOLID LUNG NODULES Solitary nodule size: 6-8 mm * low risk patients: follow-up at 6-12 months, then consider further follow-up at 18-24 months * high risk patients: initial follow-up CT at 6-12 months and then at 18-24 months if no change Will need outpatient follow up (4) Myelodysplastic syndrome: Hx of anemia of chronic disease 5 units PRBC transfused during hospital course so far Continue Folic acid and Vitamin B ( MCV> 100 ) Hgb 8.8 and platelet 816 Case discussed with Oncology Dr. Chavez about the elevated platelet Dr. Chavez recommended to continue the Hydroxyurea Will check CBC in 1 week Thrombocytosis Platelet dropped from 930 to 816 today Continue hydroxyurea No aspirin due to GI bleed Follow up with Oncology Check CBC in 1 week Diarrhea Stool for C-diff gene positive, but c-diff toxin negative Was starting on Vanco PO on 12/22 Diarrhea resolved Will complete course of Vanco UTI : urine culture grew gram negative bacilli /Klebsiella completed total 4 days of abx Stable Tobacco abuse On Nicotine Patch Counseling on smoking cessation DVT PROPHYLAXIS: scd and teds no anticoagulation due to GI bleed /acute blood loss anemia DISPOSITION : Plan to discharge home with home health today Total Time Total Time Spent Total Time Spent (In Minutes): 35 minutes Total Time Includes: Examination of the Patient, Discharge Planning, Medication Reconciliation, Communication With Other Providers and Other Discharge Plan Discharge Items Patient Disposition: Home - Home Health Services Reason For Visit: SYNCOPE,SEPSIS Discharge Diagnosis: SYMPTOMATIC ANEMIA /URINARY TRACT INFECTION /DEHYDRATION /MYELODYSPLASTIC SYNDROME -REQUIRING INTERMITTENT BLOOD TRANSFUSION Condition on Discharge: Good Activity: Resume your previous activity Lifting: No more than 5 pounds Weightbearing: Left non-weightbearing Non-emergency contact: Primary Care Provider and Oncologist Call non-emergency contact if: you have any medication questions Follow-up/Referrals: Valerie Chavez MD [Primary Care Provider] - 01/03/20 11:25 am () Diet: Regular Addtl Attending Provider Instructions: Follow up with your primary care provider Dr. Valerie Chavez on 01/02 @ 11:25 AM Follow up with your oncology Dr. Chavez (Please call to schedule for the appointment) Follow-up with [facility] (Jose Lopez PA-C/Dr. Bryan VILLARREAL) in 1- 2 weeks for repeat x-rays. (please call for the appointment) Continue physical and occupational activities Partial weightbearing activity on the left lower extremity Check CBC in 1 week to monitor your hemoglobin and platelet count Fall precaution Please hold the tramadol for pain if you become drowsy and lethargy Do not drive or operate any machine after taking the pain medication Counseling on smoking cessation SOLID LUNG NODULES incidental finding noted in CT chest : There are 4 noncalcified pulmonary nodules measuring up to 6 mm. 2 of these nodules are either new or increased in size dating back to 2005 You will need a repeat CT chest in 6 month for surveillance then every 12-18 months Pending Studies at Discharge: Yes Studies:: COMPLETE BLOOD COUNT IN [address] CHEST IN 6 MONTHS TO ASSESS LUNG NODULE Stand-Alone Forms: My [facility] lucierna, Opioid Pain Management, Smoking Cessation Medications and DC Order Prescriptions: New tramadol 50 mg tablet 50 mg PO BID PRN (Reason: pain) Qty: 10 RF: 0 Continued hydroxyurea [Hydrea] 500 mg Capsule 500 mg PO DAILY RF: 0 temazepam [Restoril] 30 mg Capsule 30 mg PO HS PRN (Reason: Sleep) RF: 0 pantoprazole [Protonix] 40 mg Tablet,Delayed Release (Dr/Ec) 40 mg PO BID PRN (Reason: Acid Reflux) RF: 0 pregabalin [Lyrica] 75 mg Capsule 75 mg PO BID RF: 0 albuterol sulfate 2.5 mg /3 mL (0.083 %) solution for nebulization 2.5 mg inhalation Q4H PRN (Reason: Wheezing) RF: 0 amitriptyline 75 mg tablet 75 mg PO HS RF: 0 olopatadine 0.1 % drops 1 drp OPB BID PRN (Reason: Itching) RF: 0 fluticasone propion-salmeterol 500-50 mcg/dose blister with device 1 inh INHALATION BID RF: 0 albuterol sulfate [Ventolin HFA] 90 mcg/actuation HFA aerosol inhaler 2 puff INHALATION QID PRN (Reason: Shortness Of Breath Or Wheezing) RF: 0 Spiriva with HandiHaler 18 mcg capsule, w/inhalation device 1 cap INHALATION DAILY RF: 0 loperamide 2 mg capsule See Rx Instructions .ROUTE .COMPLEX PRN (Reason: Diarrhea) RF: 0 trazodone 50 mg tablet 50 mg PO HS RF: 0 Discharge Orders: Discharge Order (Routine); Ordered 12/30/19 Ordered By: Rebecca Wolff/Other Patient Handouts: Diet Low Residue, Gastric Duodenal Ulcer Ch Admission Data Admit Date/Time: 12/17/19 23:40 Attending Provider: Rebecca Andres Admit Provider: Mendel Anand Primary Care Provider: Valerie Chavez Other Providers: [facility] ; [facility] ; Doreen Wilkins ; Mendel Anand ; Leo Suggs ; Juan Carlos Adams ; Panfilo Alanis ; Britt Fitzgerald ; Kelechi Winston ; Vandana Simons ; Chance Martinez ; Bandar Fang ; Vasiliy Klein ; Bandar Mcfadden Andrew J. ; Vasiliy Doyle ; Bob Bonds ; Sriram Mccarthy ; Reynaldo Zelaya ; Bennie Fuentes ; Jose Lopez ; Vandana Khan ; Ulysses Holland ; Vivek Mcbride ; Anna York ; Tuan Leyva ; Nayla Lorenz ; Carline Wise ; Brandyn Suresh ; Sho Harris ; Wilman Valdez ; Sharyn Epstein ; Josafat Howard ; Brenda Snow ; Vance Redding ; Blaine Joseph ; Debi Walsh ; Lucía Shukla ; Svitlana Mandel ; Laura Morgan ; Ganesh Fry ; Brian Dobbins Other Interventions: Discharge Summary Assessment (RN) Last Done: 12/30/19 17:04 DC Date/Time DO NOT enter until pt leaves facility: 12/30/19 19:04
--- NOTE | 2020-01-03 09:38 | Coding Query ---
ANEMIA To promote full compliance with coding requirements relating to patient care, physician participation is requested in all cases of dock operator uncertainty. Please assist us with the question(s) below: Coding Question(s): 1. The record reflects the following clinical findings: Symptomatic Anemia as documented on Discharge Summary - Please specify. If these findings are indicative of anemia, please specify the known or suspected type by placing an "X" within the parenthesis (x). If other, please document type. Examples are: ( ) Acute blood loss anemia ( ) Acute Postoperative blood loss anemia ( ) Acute postoperative anemia due to dilutional fluids ( ) Chronic blood loss anemia ( ) Anemia of chronic disease ( ) Aplastic anemia ( ) Anemia due to renal disease ( ) Anemia in neoplastic disease ( ) Iron deficient anemia ( x) Anemia, unspecified or other ( ) Other: (please specify) ( ) Unable to determine Thank you Annabel Elizabeth [facility]
--- NOTE | 2020-01-03 09:46 | Coding Query ---
PRESENT ON ADMISSION QUERY To promote full compliance with coding requirements relating to pateint care, physician participation is requested in all cases of inpatient coder uncertainty. Please assist us with the question(s) below: Please place an X within the parenthesis (x). The following diagnosis(es) listed in this patient's medical record require physician assistance to determine if they were present on admission (POA) or not. Please advise for each diagnosis whether it was present on admission, not present on admission, or if it was clinically undetermined. 1. Acute Blood Loss Anemia (documentation of the specific diagnosis of Acute Blood Loss Anemia begins 12/22/19) ( ) Present On Admission ( ) Not Present On Admission ( ) Clinically Undetermined Thank you Annabel Elizabeth *Definition of the present on admission (POA)-Present on admission is defined as present at the time the order for inpatient admission occurs. Conditions that develop during an outpatient encounter prior to a written order for inpatient admission (including emergency department, observation, or outpatient surgery) are considered present on admission. DOMONIQUED
== END 2019-12-30 19:04 | disposition home health service (06) | DRG 811 ==
LOC: ED 19:26 → 2W 23:40 → SUATTDRO 23:40 → 2W 12-18 00:40 → 2S 12-23 10:17 → 2N 12-27 17:46 → 3E 12-29 00:43

== ENCOUNTER 2020-01-23 06:39 | Inpatient (IN) ==
[2020-01-23] MEDS ORDERED: ALBUT/IPRATROP 3MG/0.5MG NEB 3 ML VIAL NEB STA (06:56)
[2020-01-23] MEDS ORDERED: SODIUM CHLORIDE 0.9% 500 ML IV SCH (07:00)
--- NOTE | 2020-01-23 07:10 | Emergency Department Note ---
Impression & Plan Pneumonia, Tachycardia, Hypoxia, Hypomagnesemia ED Provider Note NAME: FRANK RACHEL AGE: 79 SEX: F : 1940 ARRIVES VIA: Ambulance INFORMANT: Patient, ED PROVIDER(S): Vance Roberts DO CHIEF COMPLAINT: Shortness of breath HPI: The patient is a 79-year-old female who presented to the emergency department for an evaluation of difficulty breathing. Patient states last evening she was feeling okay. She did have a meal later in the evening than usual. She had an episode of emesis and significant reflux. She started having some difficulty breathing initially. She states that she felt as though she may have aspirated. When she woke this morning she had very severe difficulty breathing. She called 911. She tried taking 1 of her breathing treatments at home without significant relief. The patient states she also feels like her heart is racing. She denies headache. She denies having any specific fever or cough. She denies having any chest pain or lower extremity swelling. The patient was recently at home for a prolonged period of time because of a recent fall with a pelvic fracture. She has not seen her primary care physician recently. The patient was tested for COVID-19 recently and was negative. She is not had any recent traveling or exposures that she knows of. ROS: See above HPI for pertinent positives & negatives. A total of 10 systems reviewed and were otherwise negative. PAST MEDICAL HISTORY: See Below PAST SURGICAL HISTORY: See Below FAMILY HISTORY: See Below SOCIAL HISTORY: See Below HOME MEDICATIONS: See Below ALLERGIES: See Below VITALS: See Below PHYSICAL EXAMINATION: GENERAL: The patient is awake and alert. She is very anxious appearing. EYES: The conjunctivae are clear. The pupils are round and reactive. EARS, NOSE, MOUTH AND THROAT: The nose is without any evidence of any deformity. Mucous membranes are moist. Tongue is midline. NECK: The neck is nontender and supple. RESPIRATORY: Shallow respirations were noted. Breath sounds were diminished throughout. The patient had significant conversational dyspnea. CARDIOVASCULAR: Tachycardic rate with regular rhythm was noted. There is no definite murmur. GASTROINTESTINAL: The abdomen is soft. Abdomen is nontender. MUSCULOSKELETAL/EXTREMITIES: There is no evidence of gross deformity full range of motion is noted in the hips and shoulders. SKIN: There is no calf tenderness or significant pedal edema. NEUROLOGIC: Patient is awake alert and oriented x3. MEDICAL DECISION MAKING: The patient is a 79-year-old female who presented to the emergency department for an evaluation of difficulty breathing. Her lung sounds were abnormal. She was treated with bronchodilator therapy. She was found to have signs of pneumonia on chest x-ray. She was reevaluated multiple times. She was breathing much better on supplemental oxygen. I discussed the patient's laboratory and radiographic studies with her. She was treated with IV fluids and IV antibiotics. [facility] have agreed to evaluate the patient in the emergency department for further management and disposition. Triage Nursing notes reviewed. Prior medical records reviewed Vital Signs: reviewed and remarkable for sinus tachycardia Differential diagnosis: Reactive airway disease, pneumonia, pneumothorax, COPD, CHF, infections, cardiac ischemia, pulmonary embolism, musculoskeletal, gastrointestinal, as well as other pathologies. ER treatment provided: See below Diagnostics interpreted by me: ECG: EKG was obtained in the emergency department. My interpretation is sinus tachycardia at 125 bpm. There is no ectopy. There is diffuse ST segment depressions noted. This was compared to a tracing from December 17, 2019. There is an increase in the ventricular rate otherwise no specific changes were noted. Cardiac Monitoring: An order was placed for continuous cardiac monitoring. The monitor shows a rate of 115 with sinus tachycardia rhythm. Laboratory studies: As stated above and show below. Imaging studies: See below Consultation(s): I discussed this case with K[facility]. She did recommend a COVID-19 test and then further determination on a bed assignment will be made. I have personally spent greater than 45 minutes of critical care time in the direct management of this patient. This includes bedside care, interpretation of diagnostic studies, and testing, discussion with consultants, patient, and family members, and other required patient management activities. This 45 minutes is in excess of all separately billable procedures. 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) Myelodysplastic syndrome (Chronic) Myelodysplastic syndrome (Chronic) Pelvic fracture S/P ORIF (open reduction internal fixation) fracture (Chronic) Thrombocytosis (Chronic) Surgical History H/O mastectomy (Chronic) modified radical masectomy H/O: hysterectomy (Chronic) History of cholecystectomy (Chronic) Status post hysterectomy (Chronic) Status post mastectomy (Chronic) "modified right mastectomy 1990" Status post total hip replacement, left (Chronic) Family History Other Unknown family medical history Social History Preferred Language: [place] Communication Ability: Effective Retirement Assistant Required: No Beliefs That Will Affect Care: None marital status: / Current Living Situation: Family Other Information That Helps Us Care for You: No Feels Safe at Home: Yes Safety Concerns: Feels Safe At This Time Smoking Status: Former smoker Tobacco Type: cigarettes ; packs per day: 1 ; Years Smoked: 50 ; Cigarettes Per Day: 20 ; Do You Dip or Chew Tobacco: No ; Second Hand Exposure: No ; Tobacco Cessation Education Requested by Patient: No Hx Alcohol Use: No Hx Substance Use: No Allergies Allergies Allergy/AdvReac Type Severity Reaction Status Date / Time latex Allergy Intermediate HIVES Verified 01/23/20 09:47 nickel Allergy Intermediate Hives/Itchi Verified 01/23/20 09:47 ness Iodinated Contrast Media AdvReac Mild Diarrhea Verified 01/23/20 09:47 [Iodinated Contrast- Oral and IV Dye] Lobster Allergy Severe HIVES Uncoded 01/23/20 09:47 Home Meds Home Medications Medication Instructions Recorded Confirmed hydroxyurea [Hydrea] 500 mg PO HS 06/06/18 01/23/20 pantoprazole [Protonix] 40 mg PO BID 06/06/18 01/23/20 pregabalin [Lyrica] 75 mg PO BID 06/06/18 01/23/20 temazepam [Restoril] 30 mg PO HS PRN 06/06/18 01/23/20 Spiriva with HandiHaler 1 cap INHALATION QAM 12/17/19 01/23/20 albuterol sulfate 2.5 mg INHALATION Q4H PRN 12/17/19 01/23/20 albuterol sulfate [Ventolin HFA] 2 puff INHALATION QID PRN 12/17/19 01/23/20 amitriptyline 75 mg PO HS 12/17/19 01/23/20 fluticasone propion-salmeterol 1 inh INHALATION BID 12/17/19 01/23/20 loperamide 2 mg PO Q4H PRN 12/17/19 01/23/20 olopatadine 1 drp OPB BID PRN 12/17/19 01/23/20 trazodone 50 mg PO HS 12/17/19 01/23/20 acetaminophen [Tylenol] 325 mg PO QID PRN 01/23/20 01/23/20 Previous Rx's Medication Instructions Recorded tramadol 50 mg PO BID PRN #10 tab 12/30/19 Results & Data (ED) Vital Signs Vital Signs - 24 hr 01/23/20 06:56 01/23/20 07:01 01/23/20 07:18 Temperature 37.1 C Temperature Source Oral Oral Pulse Rate 130 H Pulse Rate [Left Finger] 120 H Pulse Rate from SpO2 Sensor Respiratory Rate 24 24 Respiratory Effort / Characteristics Labored Spontaneous Short of Breath Respiratory Depth Normal Respiratory Pattern Regular Blood Pressure 125/67 Blood Pressure [Left Arm] Blood Pressure Mean 86 Blood Pressure Mean [Left Arm] Blood Pressure Position Sitting Blood Pressure Position [Left Arm] Pulse Oximetry 98 99 98 Oxygen Delivery Method Non-rebreather Non-rebreather Non-rebreather Oxygen Flow Rate 10 10 15 Fraction of Inspired Oxygen Sepsis Recent Fever Within 48 Hours No Sepsis New/Unexplained Change in Mental Status No Sepsis Action Taken by Nursing No Action Required 01/23/20 09:00 01/23/20 09:21 01/23/20 09:30 Temperature Temperature Source Pulse Rate 116 H 116 H 117 H Pulse Rate [Left Finger] 116 H Pulse Rate from SpO2 Sensor 116 H 117 H Respiratory Rate 23 22 20 Respiratory Effort / Characteristics Respiratory Depth Respiratory Pattern Blood Pressure 105/65 103/63 Blood Pressure [Left Arm] 105/65 Blood Pressure Mean 83 93 Blood Pressure Mean [Left Arm] 78 Blood Pressure Position Blood Pressure Position [Left Arm] Sitting Pulse Oximetry 98 100 Oxygen Delivery Method Non-rebreather Oxygen Flow Rate 10 Fraction of Inspired Oxygen Sepsis Recent Fever Within 48 Hours Sepsis New/Unexplained Change in Mental Status Sepsis Action Taken by Nursing 01/23/20 09:31 01/23/20 10:00 01/23/20 10:01 Temperature Temperature Source Pulse Rate 117 H 117 H 116 H Pulse Rate [Left Finger] Pulse Rate from SpO2 Sensor 117 H 115 H Respiratory Rate 22 20 20 Respiratory Effort / Characteristics Respiratory Depth Respiratory Pattern Blood Pressure 103/57 L Blood Pressure [Left Arm] Blood Pressure Mean 71 Blood Pressure Mean [Left Arm] Blood Pressure Position Blood Pressure Position [Left Arm] Pulse Oximetry 98 98 Oxygen Delivery Method Oxygen Flow Rate Fraction of Inspired Oxygen Sepsis Recent Fever Within 48 Hours Sepsis New/Unexplained Change in Mental Status Sepsis Action Taken by Nursing 01/23/20 10:30 01/23/20 10:31 01/23/20 11:00 Temperature Temperature Source Pulse Rate 117 H 117 H 122 H Pulse Rate [Left Finger] Pulse Rate from SpO2 Sensor 117 H 115 H 121 H Respiratory Rate 21 20 21 Respiratory Effort / Characteristics Respiratory Depth Respiratory Pattern Blood Pressure 100/55 L 93/64 L Blood Pressure [Left Arm] Blood Pressure Mean 78 72 Blood Pressure Mean [Left Arm] Blood Pressure Position Blood Pressure Position [Left Arm] Pulse Oximetry 98 97 95 Oxygen Delivery Method Oxygen Flow Rate Fraction of Inspired Oxygen Sepsis Recent Fever Within 48 Hours Sepsis New/Unexplained Change in Mental Status Sepsis Action Taken by Nursing 01/23/20 11:01 01/23/20 11:30 01/23/20 11:32 Temperature Temperature Source Pulse Rate 122 H 123 H Pulse Rate [Left Finger] Pulse Rate from SpO2 Sensor 120 H 124 H Respiratory Rate 34 H 36 H Respiratory Effort / Characteristics Respiratory Depth Respiratory Pattern Blood Pressure 114/78 101/58 L Blood Pressure [Left Arm] Blood Pressure Mean 98 92 Blood Pressure Mean [Left Arm] Blood Pressure Position Blood Pressure Position [Left Arm] Pulse Oximetry 94 94 Oxygen Delivery Method Non-rebreather Oxygen Flow Rate 15 Fraction of Inspired Oxygen Sepsis Recent Fever Within 48 Hours Sepsis New/Unexplained Change in Mental Status Sepsis Action Taken by Nursing 01/23/20 11:45 01/23/20 11:54 01/23/20 11:56 Temperature Temperature Source Pulse Rate 130 H 129 H Pulse Rate [Left Finger] 129 H Pulse Rate from SpO2 Sensor Respiratory Rate 25 H 22 22 Respiratory Effort / Characteristics Spontaneous Short of Breath Non-Labored Short of Breath Respiratory Depth Shallow Respiratory Pattern Rapid/Shallow Blood Pressure Blood Pressure [Left Arm] Blood Pressure Mean Blood Pressure Mean [Left Arm] Blood Pressure Position Blood Pressure Position [Left Arm] Pulse Oximetry 98 98 Oxygen Delivery Method BiPAP Oxygen Flow Rate Fraction of Inspired Oxygen 100 100 Sepsis Recent Fever Within 48 Hours Sepsis New/Unexplained Change in Mental Status Sepsis Action Taken by [facility] Medications Current Medication List: was personally reviewed by me Laboratory Data Attestation: I reviewed the patient's lab results. Result diagrams: 01/23/20 07:38 01/23/20 07:38 Lab Results 01/23/20 01/23/20 01/23/20 Range/Units 07:38 07:38 07:38 WBC 26.63 H (4.8-10.8) K/uL RBC 3.34 L (4.2-5.4) M/uL Hgb 9.9 L (12.0-16.0) g/dL POC Hgb (12.0-16.0) g/dl Hct 33.6 L (37-47) % POC Hct (37-47) % MCV 100.6 H (80-100) fL MCH 29.6 (25-34) pg MCHC 29.5 L (32-36) g/dL RDW Std Deviation 101.4 H (36.4-46.3) fL RDW Coeff of Radha 29.3 H (11.5-14.5) % Plt Count 571 H (130-400) K/uL MPV 12.6 H (7.4-10.4) fL Immature Gran % (Auto) 0.6 % Neut % (Auto) 88.7 % Lymph % (Auto) 5.5 % Pitkin % (Auto) 3.2 % Eos % (Auto) 1.5 % Baso % (Auto) 0.5 % Immature Gran # (Auto) 0.15 H (0.00-0.02) K/uL Neut # (Auto) 23.64 H (1.4-6.5) K/uL Lymph # (Auto) 1.46 (1.2-3.4) K/uL Pitkin # (Auto) 0.85 H (0.11-0.59) K/uL Eos # (Auto) 0.40 (0-0.5) K/uL Baso # (Auto) 0.13 (0-0.2) K/uL Poikilocytosis Present Anisocytosis Present PT 11.2 (9.0-12.0) Seconds INR 1.1 (0.9-1.1) APTT 26.3 (21.0-31.0) Seconds PTT Ratio 0.9 D-Dimer 1080 H* (0-500) ug/L FEU ABG pH (7.35-7.45) ABG pCO2 (35-46) mmHg ABG pO2 (80-95) mmHg ABG HCO3 (19-24) mmol/L ABG O2 Saturation (90-95) % ABG Base Excess (-9-1.8) mEq/L Mark Test (Pos) VBG pH (7.36-7.41) VBG pCO2 (38-50) mmHg VBG pO2 mmHg VBG HCO3 mmol/L VBG O2 Saturation % VBG Base Excess mEq/L Barometric Pressure mm/Hg Oxygen Given POC Sodium (135-144) mmol/L Sodium 142 (136-145) mmol/L POC Potassium (3.3-5.0) mmol/L Potassium 3.6 (3.5-5.1) mmol/L POC Chloride (101-112) mmol/L Chloride 111 H (98-107) mmol/L Carbon Dioxide 22 (21-32) mmol/L POC Total CO2 (24-31) mmol/L Anion Gap 8.0 (3-11) POC Anion Gap (16-25) mmol/L POC BUN (7-18) mg/dl BUN 33 H (7-18) mg/dl Creatinine 1.27 H (0.6-1.2) mg/dl POC Creatinine (0.6-1.3) mg/dl Est Cr Clr Drug Dosing 29.3 ml/min Est GFR ( Amer) 47.1 Est GFR (Non-Af Amer) 40.7 BUN/Creatinine Ratio 26.0 H (10-20) Glucose 108 H (70-99) mg/dl POC Glucose (other) (70-99) mg/dl Lactate (0.4-2.0) mmol/L Calcium 8.5 (8.5-10.1) mg/dl POC Ioniz Calcium Cassandra (1.12-1.32) mmol/l Magnesium 1.6 L (1.8-2.4) mg/dl Total Bilirubin 0.3 (0.2-1) mg/dl AST 11 L (15-37) U/L ALT 22 (12-78) U/L Alkaline Phosphatase 67 (45-117) U/L Troponin I 0.077 H* (0-0.045) ng/ml Total Protein 6.1 L (6.4-8.2) gm/dl Albumin 3.1 L (3.4-5.0) gm/dl Globulin 3.0 (2.5-4.0) gm/dl Albumin/Globulin Ratio 1.0 (0.9-2) Procalcitonin (0-0.5) ng/ml COVID-19 PCR (Negative) 01/23/20 01/23/20 01/23/20 Range/Units 07:38 07:40 07:45 WBC (4.8-10.8) K/uL RBC (4.2-5.4) M/uL Hgb (12.0-16.0) g/dL POC Hgb 11.9 L (12.0-16.0) g/dl Hct (37-47) % POC Hct 35 L (37-47) % MCV (80-100) fL MCH (25-34) pg MCHC (32-36) g/dL RDW Std Deviation (36.4-46.3) fL RDW Coeff of Radha (11.5-14.5) % Plt Count (130-400) K/uL MPV (7.4-10.4) fL Immature Gran % (Auto) % Neut % (Auto) % Lymph % (Auto) % Pitkin % (Auto) % Eos % (Auto) % Baso % (Auto) % Immature Gran # (Auto) (0.00-0.02) K/uL Neut # (Auto) (1.4-6.5) K/uL Lymph # (Auto) (1.2-3.4) K/uL Pitkin # (Auto) (0.11-0.59) K/uL Eos # (Auto) (0-0.5) K/uL Baso # (Auto) (0-0.2) K/uL Poikilocytosis Anisocytosis PT (9.0-12.0) Seconds INR (0.9-1.1) APTT (21.0-31.0) Seconds PTT Ratio D-Dimer (0-500) ug/L FEU ABG pH (7.35-7.45) ABG pCO2 (35-46) mmHg ABG pO2 (80-95) mmHg ABG HCO3 (19-24) mmol/L ABG O2 Saturation (90-95) % ABG Base Excess (-9-1.8) mEq/L Mark Test (Pos) VBG pH 7.28 L (7.36-7.41) VBG pCO2 53 H (38-50) mmHg VBG pO2 42 mmHg VBG HCO3 24 mmol/L VBG O2 Saturation 71.2 % VBG Base Excess -3.0 mEq/L Barometric Pressure 740.5 mm/Hg Oxygen Given POC Sodium 142 (135-144) mmol/L Sodium (136-145) mmol/L POC Potassium 3.7 (3.3-5.0) mmol/L Potassium (3.5-5.1) mmol/L POC Chloride 109 (101-112) mmol/L Chloride (98-107) mmol/L Carbon Dioxide (21-32) mmol/L POC Total CO2 22 L (24-31) mmol/L Anion Gap (3-11) POC Anion Gap 16.0 (16-25) mmol/L POC BUN 31 H (7-18) mg/dl BUN (7-18) mg/dl Creatinine (0.6-1.2) mg/dl POC Creatinine 1.6 H (0.6-1.3) mg/dl Est Cr Clr Drug Dosing ml/min Est GFR ( Amer) Est GFR (Non-Af Amer) BUN/Creatinine Ratio (10-20) Glucose (70-99) mg/dl POC Glucose (other) 107 H (70-99) mg/dl Lactate (0.4-2.0) mmol/L Calcium (8.5-10.1) mg/dl POC Ioniz Calcium Cassandra 1.30 (1.12-1.32) mmol/l Magnesium (1.8-2.4) mg/dl Total Bilirubin (0.2-1) mg/dl AST (15-37) U/L ALT (12-78) U/L Alkaline Phosphatase (45-117) U/L Troponin I (0-0.045) ng/ml Total Protein (6.4-8.2) gm/dl Albumin (3.4-5.0) gm/dl Globulin (2.5-4.0) gm/dl Albumin/Globulin Ratio (0.9-2) Procalcitonin 0.20 (0-0.5) ng/ml COVID-19 PCR (Negative) 01/23/20 01/23/20 01/23/20 Range/Units 08:50 09:10 10:55 WBC (4.8-10.8) K/uL RBC (4.2-5.4) M/uL Hgb (12.0-16.0) g/dL POC Hgb (12.0-16.0) g/dl Hct (37-47) % POC Hct (37-47) % MCV (80-100) fL MCH (25-34) pg MCHC (32-36) g/dL RDW Std Deviation (36.4-46.3) fL RDW Coeff of Radha (11.5-14.5) % Plt Count (130-400) K/uL MPV (7.4-10.4) fL Immature Gran % (Auto) % Neut % (Auto) % Lymph % (Auto) % Pitkin % (Auto) % Eos % (Auto) % Baso % (Auto) % Immature Gran # (Auto) (0.00-0.02) K/uL Neut # (Auto) (1.4-6.5) K/uL Lymph # (Auto) (1.2-3.4) K/uL Pitkin # (Auto) (0.11-0.59) K/uL Eos # (Auto) (0-0.5) K/uL Baso # (Auto) (0-0.2) K/uL Poikilocytosis Anisocytosis PT (9.0-12.0) Seconds INR (0.9-1.1) APTT (21.0-31.0) Seconds PTT Ratio D-Dimer (0-500) ug/L FEU ABG pH (7.35-7.45) ABG pCO2 (35-46) mmHg ABG pO2 (80-95) mmHg ABG HCO3 (19-24) mmol/L ABG O2 Saturation (90-95) % ABG Base Excess (-9-1.8) mEq/L Mark Test (Pos) VBG pH (7.36-7.41) VBG pCO2 (38-50) mmHg VBG pO2 mmHg VBG HCO3 mmol/L VBG O2 Saturation % VBG Base Excess mEq/L Barometric Pressure mm/Hg Oxygen Given POC Sodium (135-144) mmol/L Sodium (136-145) mmol/L POC Potassium (3.3-5.0) mmol/L Potassium (3.5-5.1) mmol/L POC Chloride (101-112) mmol/L Chloride (98-107) mmol/L Carbon Dioxide (21-32) mmol/L POC Total CO2 (24-31) mmol/L Anion Gap (3-11) POC Anion Gap (16-25) mmol/L POC BUN (7-18) mg/dl BUN (7-18) mg/dl Creatinine (0.6-1.2) mg/dl POC Creatinine (0.6-1.3) mg/dl Est Cr Clr Drug Dosing ml/min Est GFR ( Amer) Est GFR (Non-Af Amer) BUN/Creatinine Ratio (10-20) Glucose (70-99) mg/dl POC Glucose (other) (70-99) mg/dl Lactate 2.4 H* 1.9 (0.4-2.0) mmol/L Calcium (8.5-10.1) mg/dl POC Ioniz Calcium Cassandra (1.12-1.32) mmol/l Magnesium (1.8-2.4) mg/dl Total Bilirubin (0.2-1) mg/dl AST (15-37) U/L ALT (12-78) U/L Alkaline Phosphatase (45-117) U/L Troponin I (0-0.045) ng/ml Total Protein (6.4-8.2) gm/dl Albumin (3.4-5.0) gm/dl Globulin (2.5-4.0) gm/dl Albumin/Globulin Ratio (0.9-2) Procalcitonin (0-0.5) ng/ml COVID-19 PCR NEGATIVE (Negative) 01/23/20 Range/Units 10:57 WBC (4.8-10.8) K/uL RBC (4.2-5.4) M/uL Hgb (12.0-16.0) g/dL POC Hgb (12.0-16.0) g/dl Hct (37-47) % POC Hct (37-47) % MCV (80-100) fL MCH (25-34) pg MCHC (32-36) g/dL RDW Std Deviation (36.4-46.3) fL RDW Coeff of Radha (11.5-14.5) % Plt Count (130-400) K/uL MPV (7.4-10.4) fL Immature Gran % (Auto) % Neut % (Auto) % Lymph % (Auto) % Pitkin % (Auto) % Eos % (Auto) % Baso % (Auto) % Immature Gran # (Auto) (0.00-0.02) K/uL Neut # (Auto) (1.4-6.5) K/uL Lymph # (Auto) (1.2-3.4) K/uL Pitkin # (Auto) (0.11-0.59) K/uL Eos # (Auto) (0-0.5) K/uL Baso # (Auto) (0-0.2) K/uL Poikilocytosis Anisocytosis PT (9.0-12.0) Seconds INR (0.9-1.1) APTT (21.0-31.0) Seconds PTT Ratio D-Dimer (0-500) ug/L FEU ABG pH 7.35 (7.35-7.45) ABG pCO2 39 (35-46) mmHg ABG pO2 65 L (80-95) mmHg ABG HCO3 21 (19-24) mmol/L ABG O2 Saturation 92.5 (90-95) % ABG Base Excess -4.3 (-9-1.8) mEq/L Mark Test Pos (Pos) VBG pH (7.36-7.41) VBG pCO2 (38-50) mmHg VBG pO2 mmHg VBG HCO3 mmol/L VBG O2 Saturation % VBG Base Excess mEq/L Barometric Pressure 740.5 mm/Hg Oxygen Given 10 L POC Sodium (135-144) mmol/L Sodium (136-145) mmol/L POC Potassium (3.3-5.0) mmol/L Potassium (3.5-5.1) mmol/L POC Chloride (101-112) mmol/L Chloride (98-107) mmol/L Carbon Dioxide (21-32) mmol/L POC Total CO2 (24-31) mmol/L Anion Gap (3-11) POC Anion Gap (16-25) mmol/L POC BUN (7-18) mg/dl BUN (7-18) mg/dl Creatinine (0.6-1.2) mg/dl POC Creatinine (0.6-1.3) mg/dl Est Cr Clr Drug Dosing ml/min Est GFR ( Amer) Est GFR (Non-Af Amer) BUN/Creatinine Ratio (10-20) Glucose (70-99) mg/dl POC Glucose (other) (70-99) mg/dl Lactate (0.4-2.0) mmol/L Calcium (8.5-10.1) mg/dl POC Ioniz Calcium Cassandra (1.12-1.32) mmol/l Magnesium (1.8-2.4) mg/dl Total Bilirubin (0.2-1) mg/dl AST (15-37) U/L ALT (12-78) U/L Alkaline Phosphatase (45-117) U/L Troponin I (0-0.045) ng/ml Total Protein (6.4-8.2) gm/dl Albumin (3.4-5.0) gm/dl Globulin (2.5-4.0) gm/dl Albumin/Globulin Ratio (0.9-2) Procalcitonin (0-0.5) ng/ml COVID-19 PCR (Negative) Administered Medications Discontinued Medications Albuterol (Duoneb) 3 ml NEB NOW STA Stop: 01/23/20 06:57 Last Admin: 01/23/20 07:17 Dose: 3 ml Documented by: [id number] Albuterol (Duoneb) 12 ml NEB ONE ONE Stop: 01/23/20 11:19 Last Admin: 01/23/20 11:54 Dose: 12 ml Documented by: [id number] Sodium Chloride (Nss) 500 mls @ 999 mls/hr IV .Q31M SHORTY Stop: 01/23/20 07:30 Last Infusion: 01/23/20 09:39 Dose: 0 mls/hr Documented by: [id number] Admin: 01/23/20 08:53 Dose: 999 mls/hr Documented by: [id number] Piperacillin Sod/Tazobactam Sod (Zosyn) 4.5 gm in 120 mls @ 240 mls/hr IV NOW ONE Stop: 01/23/20 08:23 Last Infusion: 01/23/20 09:39 Dose: 0 mls/hr Documented by: [id number] Admin: 01/23/20 08:53 Dose: 240 mls/hr Documented by: [id number] Sodium Chloride (Nss 1000ml) 500 mls @ 999 mls/hr IV .Q31M ONE Stop: 01/23/20 08:24 Last Infusion: 01/23/20 09:39 Dose: 0 mls/hr Documented by: [id number] Admin: 01/23/20 08:53 Dose: 999 mls/hr Documented by: [id number] Magnesium Sulfate/Dextrose (Magnesium Sulfate / D5w) 1 gm in 100 mls @ 100 mls/hr IV Q1H SHORTY Stop: 01/23/20 10:19 Last Infusion: 01/23/20 10:57 Dose: 0 mls/hr Documented by: [id number] Admin: 01/23/20 09:54 Dose: 100 mls/hr Documented by: [id number] Infusion: 01/23/20 09:53 Dose: 0 mls/hr Documented by: [id number] Admin: 01/23/20 08:53 Dose: 100 mls/hr Documented by: [id number] Sodium Chloride (Nss 1000ml) 500 mls @ 999 mls/hr IV .Q31M STA Stop: 01/23/20 10:59 Last Infusion: 01/23/20 11:50 Dose: 0 mls/hr Documented by: [id number] Admin: 01/23/20 11:18 Dose: 999 mls/hr Documented by: [id number] Imaging Data Radiologist's Impression: XR chest 1V portable CLINICAL HISTORY: Dyspnea COMPARISON STUDY: Chest radiograph December 17, 2019. Chest CT December 21, 2019. FINDINGS: Hazy density projecting over the right chest is due to an implant. Right axillary surgical clips are noted. There is no pneumothorax. There is a trace left pleural effusion. Left basilar opacity has developed since prior exam. There is emphysema. Old proximal left humeral fracture is noted. IMPRESSION: 1. Interval development of moderate left basilar opacity which suggests pneumonia. Radiographic follow-up is recommended. 2. Emphysema. ACT 112: Negative or not required by law. Electronically signed by: Constantin Richter M.D. 01/23/2020 7:22 AM Dictated: 01/23/20719 Transcribed: 01/23/20719 Blood Pressure Blood Pressure Findings: Normal blood pressure Discharge Plan Visit Data Chief Complaint: Shortness of Breath/Dyspnea Stated Complaint: SHORT OF BREATH ED Provider: Vance Roberts Discharge Problem: Pneumonia, Tachycardia, Hypoxia, Hypomagnesemia Patient Disposition: Being Evaluated by Hospitalist Condition: Good Forms Stand Alone Forms: My [employer] Prescriptions Prescriptions: No Action hydroxyurea [Hydrea] 500 mg Capsule 500 mg PO HS RF: 0 temazepam [Restoril] 30 mg Capsule 30 mg PO HS PRN (Reason: Sleep) RF: 0 pantoprazole [Protonix] 40 mg Tablet,Delayed Release (Dr/Ec) 40 mg PO BID RF: 0 pregabalin [Lyrica] 75 mg Capsule 75 mg PO BID RF: 0 albuterol sulfate 2.5 mg /3 mL (0.083 %) solution for nebulization 2.5 mg inhalation Q4H PRN (Reason: Wheezing) RF: 0 amitriptyline 75 mg tablet 75 mg PO HS RF: 0 olopatadine 0.1 % drops 1 drp OPB BID PRN (Reason: Itching) RF: 0 fluticasone propion-salmeterol 500-50 mcg/dose blister with device 1 inh INHALATION BID RF: 0 albuterol sulfate [Ventolin HFA] 90 mcg/actuation HFA aerosol inhaler 2 puff INHALATION QID PRN (Reason: Shortness Of Breath Or Wheezing) RF: 0 Spiriva with HandiHaler 18 mcg capsule, w/inhalation device 1 cap INHALATION QAM RF: 0 loperamide 2 mg capsule 2 mg PO Q4H PRN (Reason: Diarrhea) RF: 0 trazodone 50 mg tablet 50 mg PO HS RF: 0 tramadol 50 mg tablet 50 mg PO BID PRN (Reason: pain) Qty: 10 RF: 0 acetaminophen [Tylenol] 325 mg Tablet 325 mg PO QID PRN (Reason: Pain) RF: 0 Referrals Referrals: Chavez,Valerie N., MD [Primary Care Provider] - Discharge Problem: Pneumonia Qualifiers: Pneumonia type: due to unspecified organism Laterality: left Lung location: lower lobe of lung Qualified Code(s): J18.9 - Pneumonia, unspecified organism
--- NOTE | 2020-01-23 07:23 | XRay Report ---
XR chest 1V portable CLINICAL HISTORY: Dyspnea COMPARISON STUDY: Chest radiograph December 17, 2019. Chest CT December 21, 2019. FINDINGS: Hazy density projecting over the right chest is due to an implant. Right axillary surgical clips are noted. There is no pneumothorax. There is a trace left pleural effusion. Left basilar opaci ty has developed since prior exam. There is emphysema. Old proximal left humeral fracture is noted. IMPRESSION: 1. Interval development of moderate left basilar opacity which suggests pneumonia. Radiographic follo w-up is recommended. 2. Emphysema. ACT 112: Negative or not required by law. Electronically signed by: Constantin Richter M.D. 01/23/2020 7:22 AM
[2020-01-23] MEDS ORDERED: SODIUM CHLORIDE 0.9% 1000ML 500 ML IV ONE ×2 (07:54→11:22)
[2020-01-23] MEDS ORDERED: PIPERACILL/TAZOBAC CONSULT ACTIVE PRN ×2 (07:54→18:09)
[2020-01-23] MEDS ORDERED: PIPERACILLIN/TAZOBACTAM 4.5 GM/120 ML BAG IV ONE (07:54)
[2020-01-23 07:55] LABS: iSTAT Creatinine 1.6 mg/dl (0.6-1.3); iSTAT Hemoglobin 11.9 g/dl (12.0-16.0); iSTAT Ionized Calcium 1.3 mmol/l (1.12-1.32); iSTAT Potassium 3.7 mmol/L (3.3-5.0)
[2020-01-23 08:03] LABS: Hematocrit (blood only) 33.6 % (37-47); Hemoglobin 9.9 g/dL (12.0-16.0); Mean Corpuscular Hemoglobin 29.6 pg (25-34); Mean Corpuscular Hgb Conc 29.5 g/dL (32-36); Mean Corpuscular Volume 100.6 fL (80-100); Mean Platelet Volume 12.6 fL (7.4-10.4); Platelet Count 571 K/uL (130-400); RDW Coefficient of Variation 29.3 % (11.5-14.5); RDW Standard Deviation 101.4 fL (36.4-46.3); Red Blood Count 3.34 M/uL (4.2-5.4); White Blood Count 26.63 K/uL (4.8-10.8)
[2020-01-23 08:12] LABS: INR 1.1 (0.9-1.1); Partial Thromboplastin Ratio 0.9; Partial Thromboplastin Time 26.3 Seconds (21.0-31.0); Prothrombin Time 11.2 Seconds (9.0-12.0)
[2020-01-23 08:13] LABS: Albumin Level 3.1 gm/dl (3.4-5.0); Calcium 8.5 mg/dl (8.5-10.1); Creatinine Clr Calc Pharmacy 29.3 ml/min; Est GFR (African American) 47.1; Est GFR (Non-African American) 40.7; Magnesium 1.6 mg/dl (1.8-2.4); Potassium 3.6 mmol/L (3.5-5.1)
[2020-01-23 08:18] LABS: Anisocytosis Present; Basophils # (auto) 0.13 K/uL (0-0.2); Basophils % (auto) 0.5 %; Eosinophils % (auto) 1.5 %; Immature Granulocytes # (auto) 0.15 K/uL (0.00-0.02); Immature Granulocytes % (auto) 0.6 %; Lymphocytes # (auto) 1.46 K/uL (1.2-3.4); Lymphocytes % (auto) 5.5 %; Monocytes # (auto) 0.85 K/uL (0.11-0.59); Monocytes % (auto) 3.2 %; Neutrophils # (auto) 23.64 K/uL (1.4-6.5); Neutrophils % (auto) 88.7 %; Poikilocytosis Present
[2020-01-23 08:21] LABS: Bilirubin,Total 0.3 mg/dl (0.2-1); Total Protein 6.1 gm/dl (6.4-8.2); Troponin I 0.077 ng/ml (0-0.045)
[2020-01-23 08:38] LABS: Oxygen Saturation VBG 71.2 %; pH VBG 7.28 (7.36-7.41)
[2020-01-23 08:53] LABS: D Dimer 1080 ug/L FEU (0-500)
[2020-01-23] MEDS: MAGNESIUM SULFATE / D5W 1 GM/100 ML BAG IV SCH ×2 (08:53→09:54)
[2020-01-23] MEDS ORDERED: SODIUM CHLORIDE 0.9% 1000ML 500 ML IV STA (10:29)
[2020-01-23 11:13] LABS: Base Excess ABG -4.3 mEq/L (-9-1.8); HCO3 ABG 21 mmol/L (19-24); Oxygen Saturation ABG 92.5 % (90-95); PCO2 ABG 39 mmHg (35-46); PO2 ABG 65 mmHg (80-95); pH ABG 7.35 (7.35-7.45)
[2020-01-23 11:14] LABS: Allen Test Pos (Pos)
[2020-01-23] MEDS ORDERED: ALBUT/IPRATROP 3MG/0.5MG NEB 3 ML VIAL NEB ONE (11:18)
[2020-01-23] MEDS ORDERED: methylPREDNISolone 125 MG/2 ML VIAL IV STA (11:22)
[2020-01-23] MEDS ORDERED: OPTIRAY 320 125ml IV PRN (11:37)
--- NOTE | 2020-01-23 11:43 | History & Physical Report ---
Date of Service January 23, 2020 Assessment & Plan (1) Acute and chronic respiratory failure with hypoxia: (2) Sepsis: (3) Pneumonia: This is a 79-year-old female who has significant past medical history of COPD, tobacco abuse, MDS, essential thrombocytosis, Duodenal ulcer dx 12/23/19, GERD, history of PUD, Diastolic CHF, depression, anxiety, history of right breast cancer s/p masectomy who presents to [facility] ED from home secondary to ill feeling and SOB. In ED pt was hypoxic requiring non rebreather to maintain O2 saturations. She met SIRS/SEPSIS criteria per current CMS guidelines with tachycardia, leukocytosis Source: Likely pneumonia moderate L basilar opacity confirmed on CXR Need to obtain urine culture, blood culture pending Lactic Acid 2.4 - improved to 1.9 with IVF She received broad spectrum IV antibiotics with Zosyn She received 1L of IVF Due to pt continued requirement of 100 FiO2 on Bipap therapy patient is going to be going to ICU Chest CTA: Nonocclusive peripheral pulmonary emboli as described above, left greater than right. Although technically age indeterminate, these favor chronic pulmonary emboli. 2. Dense consolidation throughout the majority of the left lower lobe with opacification of the left lower lobe bronchus. There are additional patchy airspace opacities within the left upper lobe posteriorly and right lung base. Findings likely represent an aspiration pneumonia. Follow-up bronchoscopy recommended for removal of the suspected left lower lobe mucous plug and to exclude the less likely possibility of a central obstructing mass. 3. Emphysema. 4. Trace left pleural effusion. 5. Stable subcentimeter nodules within the right lung with the largest in the right middle lobe measuring 5 mm. 6. Lobular areas of nonocclusive thrombus seen within the thoracic aorta. Admit to ICU Continue IV antibiotics with zosyn and vanco cover for HAP due to recent hospitalization 12/16-12/30/2019 IVF Await blood and urine cultures Covid test: negative Pulmonary toilet with nebulizer, incentive spirometry Place on bipap due to increased work of breathing prednisone 40mg daily (received 125mg IV solumedrol in ED) (4) Elevated d-dimer: Patient with elevated d-dimer CTA Chest: Nonocclusive peripheral pulmonary emboli as described above, left greater than right. Although technically age indeterminate, these favor chronic pulmonary emboli. Nonocclusive peripheral pulmonary emboli as described above, left greater than right. Although technically age indeterminate, these favor chronic pulmonary emboli, Lobular areas of nonocclusive thrombus seen within the thoracic aorta. Discussed with Pulm who recommend no anticoagulation at this time until seen and evaluated in ICU given likely need for bronchoscopy (5) Hypomagnesemia: Repleted with 2g IV mag in ED Repeat in a.m. (6) CKD (chronic kidney disease), stage III: Acute on Chronic CKD stage III Baseline cr 0.7-1.0 BUN/creatinine 33 and 1.27 Monitor BMP, avoid nephrotoxic agents (7) COPD (chronic obstructive pulmonary disease): no acute exacerbation Continue with aggressive pulmonary toilet DuoNeb 4 times daily, chest percussion therapy Incentive spirometer Continue inhaled corticosteroid received 125mg IV solumedrol in ED given hx of COPD place on prednisone 40mg daily (8) Duodenal ulcer: Dx 12/18/2019 via EGD melena and symptomatic anemia Continue PPI BID Follows [facility] (9) Closed fracture of inferior pubic ramus: Diagnosed with acute left inferior pubic ramus fracture during recent admission 12/16 to 12/30/19 secondary to fall/syncope She refused inpatient rehab and has been receiving outpatient therapy services Consult PT/OT and respiratory status improved (10) Myelodysplastic syndrome: monitor cbc Current leukocytosis 26k in setting of sepsis H&H stable at 9.9 and 36.6 (recently with GI bleed in December requiring 5 units of PRBC transfusion Monitor (11) Essential thrombocythemia: Plt 571 continue hydroxyurea monitor daily (12) Insomnia: On temazepam, trazodone, amitriptyline at bedtime Given altered mental status will hold temazepam and trazodone this evening Monitor (13) DVT prophylaxis: Recent admission for duodenal ulcer s/p 5 unit PRBC Avoid chemical prophylaxis for now Disposition: admit to PCU Follow up: PCP Dr. Chavez upon discharge Pt was seen and examined in collaboration with Dr. Andres, please see addendum > 120 minutes was spent evaluating patient, developing treatment plan, discussion with specialists, reviewing current and past medical records. History of Present Illness Chief Complaint: SOB x 1 day. Primary Care Provider: Valerie Chavez MD This is a 79-year-old female who has significant past medical history of COPD, tobacco abuse, MDS, essential thrombocytosis, Duodenal ulcer dx 12/23/19, GERD, history of PUD, Diastolic CHF, depression, anxiety, history of right breast cancer s/p masectomy who presents to [facility] ED from home secondary to ill feeling and SOB. Patient states she was awoken abruptly this morning secondary to acute onset shortness of breath. Of significance patient was hospitalized on 12/16/26 secondary to syncope, melena and anemia. She underwent EGD which revealed duodenal ulcer requiring IV PPI and eventual oral PPI twice daily. She did require 5 units PRBC. Also noted during that admission was an acute left inferior pubic ramus fracture in which she was seen in appointment per orthopedics. She was placed on partial weightbearing of the left lower extremity. She was also treated with IV Rocephin for UTI. She was discharged with home health services and has been followed by [facility] at home. She was seen on 01/15 and prescribed azithromycin and prednisone due to concern for COPD exacerbation. On 01/21 she please call to PCP due to urinary symptoms and was started on Cipro 250 mg daily -Although has not started. She has been doing well since discharge. She does complain of a chronic cough in setting of her COPD but has noticed over the past 2 days increased in purulent production. In regards to her breathing she states she was doing well until this morning. Last evening she had spaghetti with red sauce and noted that she, "choked on it," "it went down the wrong pipe." She denies any recent f/c/s, dizziness, l ightheaded, syncope, hemoptysis, nausea, abdominal pain, diarrhea. She does complain of chest tightness and chest pain on inspiration but denies any exertional chest pain. Further complains of emesis x2 this morning, but no hematemesis, dysuria, increased urgency or frequency with urination ever since recent admission and catheterization. Since being evaluated in ED pt feels her respiratory status has gotten worse and feels she is not getting enough oxygen. Due to increased work in breathing she was placed on BIPAP therapy. Her appetite has been good at home. Denies any weight loss, PND, orthopnea, or edema. Ambulates with walker. Has been full weight bearing with pelvis per patient. Allergies Allergy/AdvReac Type Severity Reaction Status Date / Time latex Allergy Intermediate HIVES Verified 01/23/20 09:47 nickel Allergy Intermediate Hives/Itchi Verified 01/23/20 09:47 ness Iodinated Contrast Media AdvReac Mild Diarrhea Verified 01/23/20 09:47 [Iodinated Contrast- Oral and IV Dye] Lobster Allergy Severe HIVES Uncoded 01/23/20 09:47 Home Medications Home Medications Medication Instructions Recorded Confirmed Type hydroxyurea [Hydrea] 500 mg PO HS 06/06/18 01/23/20 History pantoprazole [Protonix] 40 mg PO BID 06/06/18 01/23/20 History pregabalin [Lyrica] 75 mg PO BID 06/06/18 01/23/20 History temazepam [Restoril] 30 mg PO HS PRN 06/06/18 01/23/20 History Spiriva with HandiHaler 1 cap INHALATION QAM 12/17/19 01/23/20 History albuterol sulfate 2.5 mg INHALATION Q4H PRN 12/17/19 01/23/20 History albuterol sulfate [Ventolin HFA] 2 puff INHALATION QID PRN 12/17/19 01/23/20 History amitriptyline 75 mg PO HS 12/17/19 01/23/20 History fluticasone propion-salmeterol 1 inh INHALATION BID 12/17/19 01/23/20 History loperamide 2 mg PO Q4H PRN 12/17/19 01/23/20 History olopatadine 1 drp OPB BID PRN 12/17/19 01/23/20 History trazodone 50 mg PO HS 12/17/19 01/23/20 History tramadol 50 mg PO BID PRN #10 tab 12/30/19 01/23/20 Rx acetaminophen [Tylenol] 325 mg PO QID PRN 01/23/20 01/23/20 History 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) Myelodysplastic syndrome (Chronic) Myelodysplastic syndrome (Chronic) Pelvic fracture S/P ORIF (open reduction internal fixation) fracture (Chronic) Thrombocytosis (Chronic) Surgical History H/O mastectomy (Chronic) modified radical masectomy H/O: hysterectomy (Chronic) History of cholecystectomy (Chronic) Status post hysterectomy (Chronic) Status post mastectomy (Chronic) "modified right mastectomy 1990" Status post total hip replacement, left (Chronic) Family History Other Unknown family medical history Social History Preferred Language: Portuguese Communication Ability: Effective 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 Beliefs That Will Affect Care: None marital status: / Current Living Situation: Family Other Information That Helps Us Care for You: No Feels Safe at Home: Yes Safety Concerns: Feels Safe At This Time Smoking Status: Current some day smoker (Vaping) Tobacco Type: cigarettes ; packs per day: 1 ; Years Smoked: 50 ; Cigarettes Per Day: 20 ; Do You Dip or Chew Tobacco: No ; Second Hand Exposure: No ; Tobacco Cessation Education Requested by Patient: No Hx Alcohol Use: No Hx Substance Use: No Review of Systems Review of Systems: All systems reviewed & are unremarkable except as noted in HPI & below Physical Exam Physical Exam: Constitutional: Thin, petite, elderly, F, vitals as above, +resp distress, sitting up in bed, pleasant, conversing easily Head: Normocephalic, Atraumatic Eyes: PERRL, conjunctivae normal, anicteric sclerae ENMT: external ear and nose normal, oropharynx normal Neck: trachea midline, no thyromegaly normal visual inspection Respiratory: increased respiratory effort, on nonrebreather, +L Basilar crackles/rhonchi, +tightness, no wheeze noted, otherwise clear. increased insp/exp effort, no accessory muscle use Cardiovascular: tachycardic rate, reg rhythm, no murmur but distant due to increased RR, no edema Vessels: no JVD or carotid bruit Chest: normal inspection of chest Abdomen: normal bowel sounds, soft, nontender, no hepatosplenomegaly Musculoskeletal: no cyanosis or clubbing, extremities motor strength 5/5 Skin: no rashes, warm and dry normal turgor Neurologic: PERRL, EOMI, accommodation nl, no face palsy, no dysarthria CN's II-XI intact bilaterally and moves all extremities Psychiatric: A+Ox3, euthymic affect Lymphatic: no cervical or axillary lymphadenopathy : deferred Results & Data Results & Data ([facility]) Vital Signs (Past 12 Hours) Vital Signs Temp Pulse Pulse Resp BP BP Pulse Ox 01/23/20 11:01 122 H 34 H 94 01/23/20 11:00 122 H 21 93/64 L 95 01/23/20 10:31 117 H 20 97 01/23/20 10:30 117 H 21 100/55 L 98 01/23/20 10:01 116 H 20 98 01/23/20 10:00 117 H 20 103/57 L 98 01/23/20 09:31 117 H 22 01/23/20 09:30 117 H 20 103/63 01/23/20 09:21 116 H 22 100 01/23/20 09:00 116 H 116 H 23 105/65 105/65 98 01/23/20 07:18 120 H 24 98 01/23/20 07:01 37.1 C 130 H 24 125/67 99 01/23/20 06:56 98 Laboratory Results Short CBC 01/23/20 Range/Units 07:38 WBC 26.63 H (4.8-10.8) K/uL Hgb 9.9 L (12.0-16.0) g/dL Hct 33.6 L (37-47) % Plt Count 571 H (130-400) K/uL BMP 01/23/20 07:38 Sodium 142 Potassium 3.6 Chloride 111 H Carbon Dioxide 22 BUN 33 H Creatinine 1.27 H Glucose 108 H Calcium 8.5 Cardiac Enzymes 01/23/20 Range/Units 07:38 Troponin I 0.077 H* (0-0.045) ng/ml Liver Function 01/23/20 Range/Units 07:38 Total Bilirubin 0.3 (0.2-1) mg/dl AST 11 L (15-37) U/L ALT 22 (12-78) U/L Alkaline Phosphatase 67 (45-117) U/L Albumin 3.1 L (3.4-5.0) gm/dl Diagnostic Findings CXR: IMPRESSION: 1. Interval development of moderate left basilar opacity which suggests pneumonia. Radiographic follow-up is recommended. 2. Emphysema. Medications Administered Discontinued Medications Albuterol (Duoneb) 3 ml NEB NOW STA Stop: 01/23/20 06:57 Last Admin: 01/23/20 07:17 Dose: 3 ml Documented by: [id number] Sodium Chloride (Nss) 500 mls @ 999 mls/hr IV .Q31M SHORTY Stop: 01/23/20 07:30 Last Infusion: 01/23/20 09:39 Dose: 0 mls/hr Documented by: [id number] Admin: 01/23/20 08:53 Dose: 999 mls/hr Documented by: [id number] Piperacillin Sod/Tazobactam Sod (Zosyn) 4.5 gm in 120 mls @ 240 mls/hr IV NOW ONE Stop: 01/23/20 08:23 Last Infusion: 01/23/20 09:39 Dose: 0 mls/hr Documented by: [id number] Admin: 01/23/20 08:53 Dose: 240 mls/hr Documented by: [id number] Sodium Chloride (Nss 1000ml) 500 mls @ 999 mls/hr IV .Q31M ONE Stop: 01/23/20 08:24 Last Infusion: 01/23/20 09:39 Dose: 0 mls/hr Documented by: [id number] Admin: 01/23/20 08:53 Dose: 999 mls/hr Documented by: [id number] Magnesium Sulfate/Dextrose (Magnesium Sulfate / D5w) 1 gm in 100 mls @ 100 mls/hr IV Q1H SHORTY Stop: 01/23/20 10:19 Last Infusion: 01/23/20 10:57 Dose: 0 mls/hr Documented by: [id number] Admin: 01/23/20 09:54 Dose: 100 mls/hr Documented by: [id number] Infusion: 01/23/20 09:53 Dose: 0 mls/hr Documented by: [id number] Admin: 01/23/20 08:53 Dose: 100 mls/hr Documented by: [id number] Sodium Chloride (Nss 1000ml) 500 mls @ 999 mls/hr IV .Q31M STA Stop: 01/23/20 10:59 Last Admin: 01/23/20 11:18 Dose: 999 mls/hr Documented by: [id number] ECG Rate (beats per minute): 125 Rhythm: sinus tachycardia Findings: + RBBB Code Status & VTE Plan Code Status Full Code VTE Prophylaxis Plan VTE Prophylaxis will be ordered: Yes Reason for no VTE drug order: Contraindicated Supervising Physician Co-Signing Physician Notes Pt was seen and examined. Agreed with Kami LOCKETT exam, assessment and plan. 79-year-old female who has significant past medical history of COPD, tobacco abuse, MDS, essential thrombocytosis, Duodenal ulcer dx 12/23/19, GERD, history of PUD, Diastolic CHF, depression, anxiety, history of right breast cancer s/p masectomy who presents to the ER for worsening SOB. She said that last night while eating pasta, she choked on it because the food went to the wrong pipe. She said that today she felt that she is not getting enough air. In the ER she was placed on BIPAP to help with her breathing. LAB showed elevated WBC 26K, D- dimer and lactic acid 2.9 and Covid-19 negative. CTA chest done showed nonocclusive peripheral pulmonary emboli as described above, left greater than right. Although technically age indeterminate, these favor chronic pulmonary emboli. Dense consolidation throughout the majority of the left lower lobe with opacification of the left lower lobe bronchus. There are additional patchy airspace opacities within the left upper lobe posteriorly and right lung base. Findings likely represent an aspiration pneumonia. Follow-up bronchoscopy recommended for removal of the suspected left lower lobe mucous plug and to exclude the less likely possibility of a central obstructing mass. Lobular areas of nonocclusive thrombus seen within the thoracic aorta. Case discussed with pulmonology that recommended to transfer her to the ICU for bronchoscopy procedure. ICU team was notified. No anticoagulant for now since planning for procedure. Received IV steroid in the ER, will continue PO steroid. Continue IV abx with Zosyn and vanco for now. Will monitor closely in the ICU. MD Mckenna (1) Closed fracture of inferior pubic ramus Encounter type: initial encounter Laterality: left Qualified Code(s): S32.592A - Other specified fracture of left pubis, initial encounter for closed fracture (2) COPD (chronic obstructive pulmonary disease) COPD type: unspecified COPD Qualified Code(s): J44.9 - Chronic obstructive pu lmonary disease, unspecified (3) Pneumonia Laterality: left Lung location: lower lobe of lung Pneumonia type: due to unspecified organism Qualified Code(s): J18.9 - Pneumonia, unspecified organism
[2020-01-23] MEDS ORDERED: ONDANSETRON INJ 2 MG/ML 2 ML VIAL IV STA (12:10)
--- NOTE | 2020-01-23 13:47 | CT Scan Report ---
CHEST CTA for PULMONARY ARTERIES CT DOSE: 404.17 mGy.cm HISTORY: Shortness of breath. TECHNIQUE: Multiaxial CT images of the chest were performed following the intravenous administration of contrast to evaluate the pulmonary arteries. Maximal intensity projection images were also obtaine d. A dose lowering technique was utilized adhering to the principles of ALARA. COMPARISON STUDY: Chest CT 12/21/2019. FINDINGS: Old moderate compression deformity at T12, unchanged. Focal lobular areas of thrombus seen within the distal aortic arch and descending thoracic aorta. Normal caliber thoracic aorta with no ev idence for dissection. The heart is normal in size. No pericardial effusions. There is peripheral non occlusive thrombus seen within the distal left main pulmonary artery and extending into the left uppe r and lower lobar pulmonary arteries. There is also nonocclusive thrombus within the right upper lobe segmental pulmonary artery best seen on image 210. These are consistent with pulmonary emboli. Altho ugh technically age indeterminate these favor chronic pulmonary emboli. Trace left pleural effusion. Prior right mastectomy with implant reconstruction. No mediastinal or hilar lymphadenopathy. Normal e sophagus. Limited views of the upper abdomen demonstrate normal liver and spleen. Surgical clips with in the right axilla. Advanced degenerative changes within the left shoulder. No suspicious lytic or b lastic osseous lesions. No pneumothorax. Severe emphysema. Opacified left lower lobe bronchus. There is dense consolidation involving the majority of the left lower lobe. Additional patchy areas of cons olidation seen within the left upper lobe posteriorly and right lower lobe. This is likely due to asp iration/mucous plugging and is consistent with a pneumonia. Stable 5 mm nodule within the right middl e lobe on image 108. Stable 3 mm nodule within the right middle lobe on image 82. Stable 3 mm nodular density within the left lung apex on image 273. Stable 4 mm nodule within the right upper lobe on im age 149. IMPRESSION: 1. Nonocclusive peripheral pulmonary emboli as described above, left greater than right. Although taylor hnically age indeterminate, these favor chronic pulmonary emboli. 2. Dense consolidation throughout the majority of the left lower lobe with opacification of the left lower lobe bronchus. There are additional patchy airspace opacities within the left upper lobe veterinary technician iorly and right lung base. Findings likely represent an aspiration pneumonia. Follow-up bronchoscopy recommended for removal of the suspected left lower lobe mucous plug and to exclude the less likely p ossibility of a central obstructing mass. 3. Emphysema. 4. Trace left pleural effusion. 5. Stable subcentimeter nodules within the right lung with the largest in the right middle lobe measu ring 5 mm. 6. Lobular areas of nonocclusive thrombus seen within the thoracic aorta. 7. Additional findings as described above. ACT 112: Negative or not required by law. Electronically signed by: Johnnie Simental M.D. 01/23/2020 1:45 PM
--- NOTE | 2020-01-23 15:54 | Critical Care Consultation ---
Date of Consultation January 23, 2020 Assessment & Plan (1) Acute and chronic respiratory failure with hypoxia: Reason Critically Ill: Patient is a 79-year-old female with a history of breast cancer status post radical mastectomy with COPD and continued tobacco abuse through vaping who presents with acute on chronic hypoxic respiratory failure secondary to left lower lobe pneumonia/mucoid impaction. PLAN: Neuro: Tramadol for pain Amitriptyline -Continue Lyrica -Continue Insomnia -Restoril as needed Resp: Acute on chronic hypoxic respiratory failure COPD Continued nicotine dependence: Vaping -We will proceed with bronchoscopy -Advised she needs to discontinue all vaping and tobacco use Pneumonia -Started vancomycin and Zosyn -Add Levaquin Mucoid impaction of left lower lobe -Anticipate bronchoscopy on BiPAP -Positive pressure therapy would likely preclude the patient from being able to expectorate the secretions CV: Abnormal EKG -Incomplete right bundle branch block -QTc 467 Fluids/Renal: Hypomagnesemia -400 mg nightly -1 g IV over 2 hours ID: IV Zosyn, vancomycin, Levaquin -Presumptive pulmonary source GI/Nutrition: Heart healthy diet after recovery from Precedex for bronchoscopy History duodenal ulcer -Previously required multiple blood transfusions Heme: Myelodysplastic syndrome -Continue hydroxyurea Patient consented for blood should she need it DVT prophylaxis: Lovenox Endocrine: ICU hyperglycemia protocol Vascular access: Peripheral IVs -Patient consented for intubation, central venous access, intubation, arterial line and blood Code Status: Full Disposition: ICU (2) Pneumonia: (3) Duodenal ulcer: (4) CKD (chronic kidney disease), stage III: (5) H/O mastectomy: (6) History of cholecystectomy: (7) S/P ORIF (open reduction internal fixation) fracture: (8) Myelodysplastic syndrome: (9) Anemia: (10) Abnormal CXR (chest x-ray): (11) Mucoid impaction of bronchi: (12) Vapes nicotine containing substance: (13) COPD (chronic obstructive pulmonary disease): History of Present Illness Allergies Allergy/AdvReac Type Severity Reaction Status Date / Time latex Allergy Intermediate HIVES Verified 01/23/20 09:47 nickel Allergy Intermediate Hives/Itchi Verified 01/23/20 09:47 ness Iodinated Contrast Media AdvReac Mild Diarrhea Verified 01/23/20 09:47 [Iodinated Contrast- Oral and IV Dye] Lobster Allergy Severe HIVES Uncoded 01/23/20 09:47 Home Medications Home Medications Medication Instructions Recorded Confirmed Type hydroxyurea [Hydrea] 500 mg PO HS 06/06/18 01/23/20 History pantoprazole [Protonix] 40 mg PO BID 06/06/18 01/23/20 History pregabalin [Lyrica] 75 mg PO BID 06/06/18 01/23/20 History temazepam [Restoril] 30 mg PO HS PRN 06/06/18 01/23/20 History Spiriva with HandiHaler 1 cap INHALATION QAM 12/17/19 01/23/20 History albuterol sulfate 2.5 mg INHALATION Q4H PRN 12/17/19 01/23/20 History albuterol sulfate [Ventolin HFA] 2 puff INHALATION QID PRN 12/17/19 01/23/20 History amitriptyline 75 mg PO HS 12/17/19 01/23/20 History fluticasone propion-salmeterol 1 inh INHALATION BID 12/17/19 01/23/20 History loperamide 2 mg PO Q4H PRN 12/17/19 01/23/20 History olopatadine 1 drp OPB BID PRN 12/17/19 01/23/20 History trazodone 50 mg PO HS 12/17/19 01/23/20 History tramadol 50 mg PO BID PRN #10 tab 12/30/19 01/23/20 Rx acetaminophen [Tylenol] 325 mg PO QID PRN 01/23/20 01/23/20 History Patient History Medical History Anemia (Chronic) CKD (chronic kidney disease), stage III (Chronic) COPD (chronic obstructive pulmonary disease) (Chronic) Essential thrombocythemia (Chronic) History of breast cancer (Chronic) History of MRSA infection (Chronic) "left hip wound" History of peptic ulcer disease (Chronic) IBS (irritable bowel syndrome) (Chronic) Diarrhea predominant ; follows with GI Leukocytosis (Chronic) 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) Myelodysplastic syndrome (Chronic) Myelodysplastic syndrome (Chronic) Pelvic fracture S/P ORIF (open reduction internal fixation) fracture (Chronic) Thrombocytosis (Chronic) Surgical History H/O mastectomy (Chronic) modified radical masectomy H/O: hysterectomy (Chronic) History of cholecystectomy (Chronic) Status post hysterectomy (Chronic) Status post mastectomy (Chronic) "modified right mastectomy 1990" Status post total hip replacement, left (Chronic) Family History Other Unknown family medical history Social History Preferred Language: Japanese Communication Ability: Effective [employer] 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[employer] Required: No Beliefs That Will Affect Care: None marital status: / Current Living Situation: Family Other Information That Helps Us Care for You: No Feels Safe at Home: Yes Safety Concerns: Feels Safe At This Time Smoking Status: Former smoker Tobacco Type: cigarettes ; packs per day: 1 ; Years Smoked: 50 ; Cigarettes Per Day: 20 ; Do You Dip or Chew Tobacco: No ; Second Hand Exposure: No ; Tobacco Cessation Education Requested by Patient: No Hx Alcohol Use: No Hx Substance Use: No Results & Data Results & Data ([facility] [place]) Vital Signs (Past 12 Hours) Vital Signs Temp Pulse Pulse Resp BP BP Pulse Ox 01/23/20 15:01 102 H 16 99 01/23/20 15:00 101 H 15 90/52 L 99 01/23/20 14:31 104 H 18 100 01/23/20 14:30 104 H 15 92/53 L 100 01/23/20 14:01 108 H 17 100 01/23/20 14:00 108 H 20 96/50 L 100 01/23/20 13:31 109 H 16 100 01/23/20 13:30 109 H 16 105/45 L 100 01/23/20 13:13 100 01/23/20 13:06 113 H 24 100 01/23/20 12:31 114 H 18 100 01/23/20 12:30 114 H 18 94/53 L 100 01/23/20 12:01 130 H 21 01/23/20 12:00 130 H 21 105/67 01/23/20 11:58 130 H 24 116/72 99 01/23/20 11:56 129 H 22 98 01/23/20 11:54 129 H 22 98 01/23/20 11:45 130 H 25 H 01/23/20 11:32 101/58 L 01/23/20 11:30 123 H 36 H 114/78 94 01/23/20 11:01 122 H 34 H 94 01/23/20 11:00 122 H 21 93/64 L 95 01/23/20 10:31 117 H 20 97 01/23/20 10:30 117 H 21 100/55 L 98 01/23/20 10:01 116 H 20 98 01/23/20 10:00 117 H 20 103/57 L 98 01/23/20 09:31 117 H 22 01/23/20 09:30 117 H 20 103/63 01/23/20 09:21 116 H 22 100 01/23/20 09:00 116 H 116 H 23 105/65 105/65 98 01/23/20 07:18 120 H 24 98 01/23/20 07:01 37.1 C 130 H 24 125/67 99 01/23/20 06:56 98 Coding Level of Care Code Critical Care 1st 30-74 mins Diagnoses Acute and chronic respiratory failure with hypoxia J96.21 Pneumonia J18.9 Laterality: left Lung location: lower lobe of lung Pneumonia type: due to unspecified organism Duodenal ulcer K26.9 CKD (chronic kidney disease), stage III N18.3 H/O mastectomy Z90.10 History of cholecystectomy Z90.49 S/P ORIF (open reduction internal fixation) fracture Z96.7; Z87.81 Myelodysplastic syndrome D46.9 Anemia D64.9 Anemia type: unspecified type Abnormal CXR (chest x-ray) R93.89 Mucoid impaction of bronchi J98.09 Vapes nicotine containing substance Z72.0 COPD (chronic obstructive pulmonary disease) J44.9 COPD type: unspecified COPD Time Spent (min) 55 Comment I have personally spent 55 minutes of critical care time in the direct management of this patient. This is a life/limb threatening event. This includes time spent evaluating patient, direct bedside care, chart review, placing orders, interpretation of diagnostic studies, discussion with consultants, patient, and/or family members regarding treatment decisions, as well as other required patient management activities. This time is exclusive of all separately billable procedures, and teaching time and separate from and in addition to any other critical care service time. (1) Pneumonia Laterality: left Lung location: lower lobe of lung Pneumonia type: due to unspecified organism Qualified Code(s): J18.9 - Pneumonia, unspecified organism (2) Anemia Anemia type: unspecified type Qualified Code(s): D64.9 - Anemia, unspecified (3) COPD (chronic obstructive pulmonary disease) COPD type: unspecified COPD Qualified Code(s): J44.9 - Chronic obstructive pulmonary disease, unspecified
--- NOTE | 2020-01-23 16:10 | Electrocardiogram Report ---
Test Reason : Blood Pressure : / mmHG Vent. Rate : 125 BPM Atrial Rate : 125 BPM P-R Int : 132 ms QRS Dur : 096 ms QT Int : 324 ms P-R-T Axes : 074 081 074 degrees QTc Int : 467 ms Poor data quality, interpretation may be adversely affected Sinus tachycardia Incomplete right bundle branch block Abnormal ECG When compared with ECG of 17-DEC-2019 19:44, Nonspecific T wave abnormality now evident in Lateral leads Confirmed by Bryant Jaime ([id number]) on 01/23/2020 4:09:53 PM Referred By: REFERRED SELF Confirmed By:Jose Jaime
[2020-01-23] MEDS: SODIUM CHLORIDE 0.9% 1000ML 1,000 ML IV SCH (16:54)
[2020-01-23] MEDS ORDERED: STAT IV Infusion **Titration per Protocol STA (18:09)
[2020-01-23] MEDS ORDERED: POLYETHYLENE (MIRALAX) 17 GM PACK PO PRN (18:09)
[2020-01-23] MEDS ORDERED: VANCOMYCIN CONSULT ACTIVE PRN (18:09)
[2020-01-23] MEDS ORDERED: ALUMINUM/MAGNESIUM SUSP 30 ML UDC PO PRN (18:09)
[2020-01-23] MEDS ORDERED: DEXMEDETOMIDINE HCL 200 MCG in SODIUM CHLORIDE 0.9% 48 ML IV SCH (18:09)
[2020-01-23] MEDS ORDERED: MAGNESIUM HYDROXIDE SUSP 30 ML UDC PO PRN (18:09)
--- NOTE | 2020-01-23 18:14 | Pre Anesthesia Assessment ---
Date of Service January 23, 2020 Pre Sedation Assessment Vital Signs Temp Pulse Pulse Resp BP BP Pulse Ox 01/23/20 17:30 96 01/23/20 17:01 101 H 16 94 01/23/20 17:00 102 H 14 87/58 L 95 01/23/20 16:31 105 H 16 96 01/23/20 16:30 104 H 17 99/52 L 96 01/23/20 16:16 104 H 16 94/54 L 96 01/23/20 16:01 104 H 16 95 01/23/20 16:00 105 H 17 93/52 L 95 01/23/20 15:57 98 01/23/20 15:42 104 H 19 99 01/23/20 15:31 104 H 15 99 01/23/20 15:30 105 H 18 98/51 L 99 01/23/20 15:01 102 H 16 99 01/23/20 15:00 101 H 15 90/52 L 99 01/23/20 14:31 104 H 18 100 01/23/20 14:30 104 H 15 92/53 L 100 01/23/20 14:01 108 H 17 100 01/23/20 14:00 108 H 20 96/50 L 100 01/23/20 13:31 109 H 16 100 01/23/20 13:30 109 H 16 105/45 L 100 01/23/20 13:13 100 01/23/20 13:06 113 H 24 100 01/23/20 12:31 114 H 18 100 01/23/20 12:30 114 H 18 94/53 L 100 01/23/20 12:01 130 H 21 01/23/20 12:00 130 H 21 105/67 01/23/20 11:58 130 H 24 116/72 99 01/23/20 11:56 129 H 22 98 01/23/20 11:54 129 H 22 98 01/23/20 11:45 130 H 25 H 01/23/20 11:32 101/58 L 01/23/20 11:30 123 H 36 H 114/78 94 01/23/20 11:01 122 H 34 H 94 01/23/20 11:00 122 H 21 93/64 L 95 01/23/20 10:31 117 H 20 97 01/23/20 10:30 117 H 21 100/55 L 98 01/23/20 10:01 116 H 20 98 01/23/20 10:00 117 H 20 103/57 L 98 01/23/20 09:31 117 H 22 01/23/20 09:30 117 H 20 103/63 01/23/20 09:21 116 H 22 100 01/23/20 09:00 116 H 116 H 23 105/65 105/65 98 01/23/20 07:18 120 H 24 98 01/23/20 07:01 37.1 C 130 H 24 125/67 99 01/23/20 06:56 98 Cardiovascular RRR, no murmur, no edema Respiratory normal respiratory effort, lungs clear to auscultation + respiratory effort normal and + dullness to percussion (Left lower lobe) Pre-Sedation Airway Assessment Smoking Status: Current some day smoker (Vaping) Hx Sleep Apnea: No Hx Difficult Intubation: No Short, Thick Neck: No Thyromental Distance: > or= 3.5 Finger Breadths Oral Cavity: + Dentures Mallampati Class: II ASA: ASA2E NPO Status Date of Last Intake of Fluids: 01/22/20 Date of Last Intake of Solid Food: 01/22/20 Procedure Planning Contraindications for Sedation: none Current Medications Reviewed: Yes Notes The planned sedation has been discussed with the patient. Informed Consent was obtained. I have identified the patient, determined the appropriateness of sedation and have assessed the patient immediately prior to the procedure. All medicine(s) and interventions are by my order. This is an urgent/emergent procedure given the degree of hypoxia and mucoid impaction this is to prevent intubation in someone who has chronic respiratory failure who may require extended mechanical ventilation should she be intubated. Sedation with continuous infusion Precedex with augmentation of Versed and fentanyl and 50 mcg aliquots of fentanyl and 1 mg aliquots of Versed.
--- NOTE | 2020-01-23 18:15 | Procedure Note ---
Procedure Note: Bronchoscopy Procedure Procedure date: January 23, 2020 Procedure: fiberoptic bronchoscopy Pre-procedure indication: Pulmonary infiltrate, acute on chronic hypoxic respiratory failure Post-procedure Diagnosis: same as above Prior to Procedure: Informed Consent: The risks, benefits, indications, potential complications, and alternatives were explained to the patient and informed consent obtained. Attending Staff: Librado Heck DO Resident/APC: Not applicable Skin Prep: Not applicable Anesthesia: Continuous infusion The identity of the patient was confirmed and a bedside time out was performed. Description of Procedure: Fiberoptic bronchoscopy was performed via noninvasive ventilator full facemask. Initial 3 approaches were from the oropharynx and encountered significant inspissated secretions attached to the epiglottis, final successful approach was through the right naris and I was able to visualize the epiglottis which appeared mildly edematous most likely secondary from irritation of the inspissated secretions bronchioalveolar lavage left lower lobe was performed. Findings included: Greater than 50% diameter occlusion of the trachea with exhalation, mucoid impaction of the right lower lobe, significant inspissated secretions/concretions of the posterior oropharynx partially occluding the posterior oropharynx. Complications: None Specimens: Bronchial washings sent for culture and Gram stain, fungal elements, AFB stain and culture, cell count differential. Estimated blood loss: Zero
[2020-01-23] MEDS ORDERED: MAGNESIUM SULFATE / D5W 1 GM/100 ML BAG IV ONE (18:30)
[2020-01-23] MEDS ORDERED: MIDAZOLAM HCL 1 MG/ML 2ML VIAL ONE (19:37)
[2020-01-23] MEDS ORDERED: fentaNYL citrate 100 MCG/2 ML VIAL ONE (19:37)
[2020-01-23] MEDS ORDERED: VANCOMYCIN HCL 1,250 MG in SODIUM CHLORIDE 0.9% 250 ML IV SCH (20:00)
--- NOTE | 2020-01-23 20:00 | Post Anesthesia Assessment ---
Date of Service January 23, 2020 Post Sedation Assessment Vital Signs Temp Pulse Pulse Resp BP BP Pulse Ox 01/23/20 17:30 96 01/23/20 17:01 101 H 16 94 01/23/20 17:00 102 H 14 87/58 L 95 01/23/20 16:31 105 H 16 96 01/23/20 16:30 104 H 17 99/52 L 96 01/23/20 16:16 104 H 16 94/54 L 96 01/23/20 16:01 104 H 16 95 01/23/20 16:00 105 H 17 93/52 L 95 01/23/20 15:57 98 01/23/20 15:42 104 H 19 99 01/23/20 15:31 104 H 15 99 01/23/20 15:30 105 H 18 98/51 L 99 01/23/20 15:01 102 H 16 99 01/23/20 15:00 101 H 15 90/52 L 99 01/23/20 14:31 104 H 18 100 01/23/20 14:30 104 H 15 92/53 L 100 01/23/20 14:01 108 H 17 100 01/23/20 14:00 108 H 20 96/50 L 100 01/23/20 13:31 109 H 16 100 01/23/20 13:30 109 H 16 105/45 L 100 01/23/20 13:13 100 01/23/20 13:06 113 H 24 100 01/23/20 12:31 114 H 18 100 01/23/20 12:30 114 H 18 94/53 L 100 01/23/20 12:01 130 H 21 01/23/20 12:00 130 H 21 105/67 01/23/20 11:58 130 H 24 116/72 99 01/23/20 11:56 129 H 22 98 01/23/20 11:54 129 H 22 98 01/23/20 11:45 130 H 25 H 01/23/20 11:32 101/58 L 01/23/20 11:30 123 H 36 H 114/78 94 01/23/20 11:01 122 H 34 H 94 01/23/20 11:00 122 H 21 93/64 L 95 01/23/20 10:31 117 H 20 97 01/23/20 10:30 117 H 21 100/55 L 98 01/23/20 10:01 116 H 20 98 01/23/20 10:00 117 H 20 103/57 L 98 01/23/20 09:31 117 H 22 01/23/20 09:30 117 H 20 103/63 01/23/20 09:21 116 H 22 100 01/23/20 09:00 116 H 116 H 23 105/65 105/65 98 01/23/20 07:18 120 H 24 98 01/23/20 07:01 37.1 C 130 H 24 125/67 99 01/23/20 06:56 98 Recovery Score Activity: Moves 4 extremities Respiration: Deep Breath/Cough Circulation: +/-20% PreAnes Value Consciousness: Fully Awake Oxygen Saturation: O2 needed for >90% Discharge Sedation Level of Care: Higher Level of Care Post Sedation Plan Patient has been admitted to the ICU and will remain at this level of care. Patient was given total of 2 mg of Versed, 100 mcg of fentanyl in 2 divided aliquots as well as Precedex infusion. Patient remained awake and responsive able to follow verbal commands through the entire procedure. When procedure ended the patient was awake cooperative and maintaining airway. Procedural time started at 745 and ended at 2000 hrs. total time 15 minutes [facility] Procedure Codes (Charges) Sedation/Anesthesia Procedure 1: Sedation/Anesthesia: 03163 Mod Sedation by the same physician;Init15 Min Child Age 5 & Up Total Sedation Time (minutes): 15
[2020-01-23] MEDS ORDERED: MIDAZOLAM HCL 5 MG/ML VIAL IV STA (20:05)
[2020-01-23] MEDS ORDERED: fentaNYL citrate 100 MCG/2 ML VIAL IV STA (20:05)
[2020-01-23] MEDS: ALBUT/IPRATROP 3MG/0.5MG NEB 3 ML VIAL NEB SCH ×2 (20:20→20:21)
[2020-01-23] MEDS: PIPERACILLIN/TAZOBACTAM 3.375 GM in DEXTROSE 5% 100 ML IV SCH (20:50)
[2020-01-23 22:59] LABS: Basophil Body Fluid Man 0 %; Eosinophil Body Fluid Man 0 %; Fluid Mono/Macrophage 6 %; Lymphocyte Body Fluid Man 4 %; Neutrophil Body Fluid Man 90 %
[2020-01-24] MEDS: TRAZODONE HCL 50 MG TAB PO SCH ×2 (00:05→21:16)
[2020-01-24] MEDS: MAGNESIUM OXIDE 400 MG TAB PO SCH ×2 (00:05→21:16)
[2020-01-24] MEDS: AMITRIPTYLINE HCL 25 MG TAB PO SCH ×2 (00:05→21:15)
[2020-01-24] MEDS: PREGABALIN 75 MG CAP PO SCH ×3 (00:06→21:18)
[2020-01-24] MEDS: PANTOprazole 40 MG TAB PO SCH ×3 (00:06→21:16)
[2020-01-24] MEDS: LEVOFLOXACIN/D5W 750 MG/150 ML BAG IV SCH (00:07)
[2020-01-24] MEDS: HYDROXYUREA 500 MG CAP PO SCH ×2 (00:25→21:16)
[2020-01-24] MEDS: SODIUM CHLORIDE 0.9% 1000ML 1,000 ML IV SCH (02:43)
[2020-01-24 04:26] LABS: Hematocrit (blood only) 23.7 % (37-47); Hemoglobin 7.3 g/dL (12.0-16.0); Mean Corpuscular Hemoglobin 30.5 pg (25-34); Mean Corpuscular Hgb Conc 30.8 g/dL (32-36); Mean Corpuscular Volume 99.2 fL (80-100); Mean Platelet Volume 12.1 fL (7.4-10.4); Platelet Count 380 K/uL (130-400); RDW Coefficient of Variation 27.7 % (11.5-14.5); RDW Standard Deviation 95.5 fL (36.4-46.3); Red Blood Count 2.39 M/uL (4.2-5.4); White Blood Count 24.22 K/uL (4.8-10.8)
[2020-01-24] MEDS: PIPERACILLIN/TAZOBACTAM 3.375 GM in DEXTROSE 5% 100 ML IV SCH ×2 (04:34→15:52)
[2020-01-24 04:49] LABS: Albumin Globulin Ratio 0.9 (0.9-2); Albumin Level 2.4 gm/dl (3.4-5.0); BUN Creatinine Ratio 28.5 (10-20); Bilirubin,Total 0.5 mg/dl (0.2-1); Calcium 7.4 mg/dl (8.5-10.1); Creatinine Clr Calc Pharmacy 28.4 ml/min; Est GFR (African American) 45.4; Est GFR (Non-African American) 39.2; Globulin 2.8 gm/dl (2.5-4.0); Potassium 4.9 mmol/L (3.5-5.1); Total Protein 5.2 gm/dl (6.4-8.2)
[2020-01-24 05:32] LABS: Appearance Urine Clear (Clear); Bacteria Urine Automated Negative (Negative); Bilirubin Urine Negative (Negative); Blood Urine Negative (Negative); Color Urine Yellow; Glucose Urine UA Negative (Negative); Ketones Urine Negative (Negative); Leukocyte Esterase Urine Trace (Negative); Nitrite Urine Negative (Negative); Protein Urine Trace (Negative); Specific Gravity Urine 1.035 (1.000-1.030); Urobilinogen Urine Negative (Negative)
[2020-01-24 05:47] LABS: Anisocytosis Present; Basophilic Stippling 1+; Basophils # (auto) 0.02 K/uL (0-0.2); Basophils % (auto) 0.1 %; Eosinophils # (auto) 0.01 K/uL (0-0.5); Immature Granulocytes % (auto) 0.4 %; Lymphocytes # (auto) 0.81 K/uL (1.2-3.4); Lymphocytes % (auto) 3.3 %; Monocytes # (auto) 2.08 K/uL (0.11-0.59); Monocytes % (auto) 8.6 %; Neutrophils % (auto) 87.6 %; Ovalocytes 1+
[2020-01-24] MEDS ORDERED: fentaNYL citrate 100 MCG/2 ML VIAL ONE (06:04)
[2020-01-24] MEDS: ALBUT/IPRATROP 3MG/0.5MG NEB 3 ML VIAL NEB SCH ×4 (06:56→18:49)
--- NOTE | 2020-01-24 08:19 | Hospitalist Progress Note ---
Date of Service January 24, 2020 Assessment & Plan (1) Vapes nicotine containing substance: (2) Acute and chronic respiratory failure with hypoxia: Multifocal pneumonia and mucous plugging status post bronchoscopy and improved with antibiotic therapy overnight. She feels better today and oxygen needs have improved. She is on board with quitting smoking and vaping. Continue ICU care. Continue broad-spectrum antibiotics. Continue pulmonary toilet. Patient also was placed on steroids. (3) Pneumonia: Broad-spectrum antibiotics pending culture results and bronchial studies. Continue plan as above. (4) COPD exacerbation: Cont prednisone and duonebs. Cont home inhalers. (5) Sepsis: Resuscitated. Continue plan for treatment of pneumonia as above. (6) Acute kidney injury superimposed on chronic kidney disease: Secondary to acute illness/sepsis. Treat pneumonia as above. Continue to encourage oral p.o. intake and hydration. Trend BMP in a.m. (7) Duodenal ulcer: Diagnosed 12/18/2019 via EGD with melena and symptomatic anemia. She remains on a PPI twice daily. She reports abdominal tenderness that is been present since she was discharged from the hospital in December, stating the abdominal tenderness is improved with oral PPI. She is tolerating food and is denying any melena or bright red blood per rectum. She is anemic, however. Defer to donkey ride operator to replace with blood products. (8) Anemia: Multifactorial including acute GI blood loss related to his known peptic ulcer disease in addition to chronic medical issues. (9) Closed fracture of inferior pubic ramus: Diagnosed with acute left inferior pubic ramus fracture during recent admission 12/16 to 12/30/19 secondary to fall/syncope She refused inpatient rehab and has been receiving outpatient therapy services Consult PT/OT and respiratory status improved (10) Myelodysplastic syndrome: Also known to have a JAK2 mutation per records making her high risk for thrombosis with her age. She is followed by Dr. Chavez ([facility]) who has her on anagrelide and hydroxyurea. She has not been able to take the anagrelide, however, since Jul due to a medication shortage. Noted chronic appearing thromboembolic disease on CT chest and partial thrombus present in thoracic aorta. Continues on Lovenox for DVT prophylaxis and home hydroxyurea. (11) Essential thrombocythemia: hydroxyurea (12) Insomnia: On temazepam, trazodone, amitriptyline at bedtime per home regimen. (13) DVT prophylaxis: Lovenox Full Code Dispo-continue ICU monitoring. [facility] Ad[facility] and Anticipated Discharge Date Admission Date: January 23, 2020 Subjective 79-year-old smoker who also vapes nicotine presented with difficulty breathing. In the ER she required nonrebreather to maintain oxygen saturation she was then escalated to BiPAP therapy. She was admitted to the ICU and underwent a bronchoscopy for removal of the suspected lower lobe mucous plug and exclude the less likely possibility of a central obstructing mass. Bronchoscopy revealed an edematous epiglottis with irritation. She had a greater than 50% diameter occlusion of the trachea with exhalation, mucoid impaction of the right lower lobe and significant inspissated secretions/concretions partially occluding the posterior oropharynx. Today she feels better with respect to her breathing. She denies significant cough, fevers, chills. She is asking for food and underwent a video swallow study with only minimal aspiration noted. We discussed the importance of her quitting smoking and especially stopping vaping. She is on board with quitting tobacco. Review of Systems Review of Systems: All systems reviewed & are unremarkable except as noted in Subjective Physical Exam Physical Exam: CONSTITUTIONAL: WNWD, vitals as above, generally well- appearing EYES: no scleral icterus ENT: external ear and nose normal NECK: trachea midline RESPIRATORY: intermittent coarse rhonchi, no crackles, rales or wheezes, normal respiratory effort CARDIOVASCULAR: regular rate and rhythm, S1 and 2 heard without murmurs, gallops or rubs, no JVD, no peripheral edema GASTROINTESTINAL: soft, diffuse abdominal tenderness, nondistended MUSCULOSKELETAL: physically deconditioned but moves all extremities symmetrically, head is normocephalic and atraumatic SKIN: warm and dry NEUROLOGIC: CN 2-12 grossly intact, no sensory deficit, normal cognition, normal speech, no gross focal deficit. PSYCHIATRIC: alert cooperative and oriented to person, place and time. Results & Data Results & Data ([facility]) Vital Signs (Past 12 Hours) Vital Signs Temp Pulse Pulse Resp BP Pulse Ox 01/24/20 07:45 99 H 98 01/24/20 07:40 99 H 97 01/24/20 07:35 98 H 97 01/24/20 07:30 98 H 97 01/24/20 07:25 96 H 97 01/24/20 07:20 96 H 97 01/24/20 07:15 94 H 100 01/24/20 07:10 93 H 100 01/24/20 07:05 91 H 100 01/24/20 07:00 92 H 101/41 L 99 01/24/20 06:59 98 H 18 94 01/24/20 06:55 100 H 92 01/24/20 06:50 93 H 94 01/24/20 06:45 94 H 93 01/24/20 06:40 92 H 94 01/24/20 06:35 93 H 94 01/24/20 06:30 96 H 93 01/24/20 06:25 94 H 94 01/24/20 06:20 93 H 95 01/24/20 06:15 95 H 93 01/24/20 06:10 96 H 95 01/24/20 06:05 94 H 93 01/24/20 06:00 93 H 114/53 L 93 01/24/20 05:00 97 H 116/44 L 95 01/24/20 04:00 36.7 C 99 H 14 93/46 L 95 01/24/20 03:00 100 H 102/48 L 93 01/24/20 02:00 103 H 106/48 L 95 01/24/20 01:00 99 H 101/45 L 97 01/24/20 00:00 36.8 C 97 H 99/46 L 90 01/23/20 23:00 99 H 98/42 L 95 01/23/20 22:00 97 H 102/43 L 95 01/23/20 21:14 95 H 95/41 L 94 01/23/20 21:12 95 H 95/39 L 94 01/23/20 21:10 95 H 93/41 L 95 01/23/20 21:08 95 H 96/41 L 95 01/23/20 21:06 95 H 100/40 L 95 01/23/20 21:04 95 H 86/40 L 95 01/23/20 21:02 94 H 95/41 L 95 01/23/20 21:00 94 H 87/42 L 95 01/23/20 20:58 94 H 102/40 L 94 01/23/20 20:56 94 H 100/40 L 94 01/23/20 20:54 94 H 90/41 L 94 01/23/20 20:52 95 H 78/48 L 95 01/23/20 20:50 95 H 98/39 L 94 01/23/20 20:48 96 H 60/47 L 94 01/23/20 20:46 96 H 95/39 L 95 20 20:44 96 H 89/43 L 94 01/23/20 20:42 95 H 95/41 L 94 01/23/20 20:40 96 H 93/39 L 94 01/23/20 20:38 96 H 97/41 L 94 01/23/20 20:36 96 H 94/41 L 95 01/23/20 20:34 96 H 89/38 L 95 01/23/20 20:32 96 H 80/44 L 96 01/23/20 20:30 94 H 94/41 L 99 01/23/20 20:28 95 H 92/41 L 98 01/23/20 20:26 94 H 92/40 L 99 01/23/20 20:24 95 H 95 H 18 87/44 L 98 01/23/20 20:22 96 H 93/36 L 96 01/23/20 20:20 97 H 91/39 L 95 Laboratory Results Short CBC 01/24/20 Range/Units 04:09 WBC 24.22 H (4.8-10.8) K/uL Hgb 7.3 L (12.0-16.0) g/dL Hct 23.7 L (37-47) % Plt Count 380 (130-400) K/uL BMP 01/24/20 04:09 Sodium 143 Potassium 4.9 D Chloride 115 H Carbon Dioxide 21 BUN 37 H Creatinine 1.31 H Glucose 89 Calcium 7.4 L Cardiac Enzymes 01/23/20 01/23/20 01/23/20 Range/Units 07:38 14:06 19:00 Troponin I 0.077 H* 0.566 H* 0.401 H* (0-0.045) ng/ml Liver Function 01/23/20 01/24/20 Range/Units 07:38 04:09 Total Bilirubin 0.3 0.5 (0.2-1) mg/dl AST 20 (15-37) U/L ALT 23 (12-78) U/L Alkaline Phosphatase 67 59 (45-117) U/L Albumin 2.4 L (3.4-5.0) gm/dl Urine 01/24/20 Range/Units 05:10 Urine Color Yellow Urine Appearance Clear (Clear) Urine pH 5.0 (4.5-7.5) Ur Specific [place] 1.035 H (1.000-1.030) Urine Protein Trace H (Negative) Urine Glucose (UA) Negative (Negative) Medications Administered Current Inpatient Medications Acetaminophen (Tylenol) 650 mg PO Q4H PRN PRN Reason: Pain or Fever Stop: 02/22/20 18:08 Al Hydrox/Mg Hydrox/Simethicone (Maalox) 15 ml PO Q4H PRN PRN Reason: Dyspepsia Stop: 02/22/20 18:08 Albuterol (Duoneb) 3 ml NEB QIDR SHORTY Stop: 02/22/20 18:08 Last Admin: 01/24/20 06:56 Dose: 3 ml Documented by: Amitriptyline HCl (Elavil) 75 mg PO [facility] Stop: 02/22/20 20:59 Last Admin: 01/24/20 00:05 Dose: 75 mg Documented by: Enoxaparin Sodium (Lovenox) 30 mg SQ QAM [facility] Stop: 02/23/20 08:59 Fluticasone/Vilanterol (Breo Ellipta 100/25 Mcg Inh) 1 puffs INH QAM [facility] Stop: 02/23/20 08:59 Hydroxyurea (Hydrea) 500 mg PO [facility] Stop: 02/22/20 20:59 Last Admin: 01/24/20 00:25 Dose: 500 mg Documented by: Sodium Chloride (Nss 1000ml) 1,000 mls @ 80 mls/hr IV .[id number] [facility] Stop: 01/24/20 16:22 Last Admin: 01/24/20 02:43 Dose: 80 mls/hr Documented by: Levofloxacin/Dextrose (Levaquin/D5w) 750 mg in 150 mls @ 100 mls/hr IV Q48H [facility]; Protocol Stop: 01/30/20 20:59 Last Infusion: 01/24/20 01:13 Dose: Infused Documented by: Piperacillin Sod/Tazobactam (Sod 3.375 gm/ Dextrose) 115 mls @ 28.75 mls/hr IV Q8H [facility]; Protocol Stop: 01/30/20 20:59 Last Admin: 01/24/20 04:34 Dose: 28.8 mls/hr Documented by: Ioversol (Optiray 320 125ml) 120 ml IV ONCE PRN PRN Reason: Interaction Checking Stop: 01/27/20 11:36 Magnesium Hydroxide (Milk Of Magnesia) 30 ml PO Q12H PRN PRN Reason: Constipation Stop: 02/22/20 18:08 Magnesium Oxide (Mag-Ox) 400 mg PO QPM SHORTY Stop: 02/22/20 20:59 Last Admin: 01/24/20 00:05 Dose: 400 mg Documented by: Miscellaneous Information (Consult) 1 ea N/A UD PRN PRN Reason: Consult Stop: 02/22/20 18:08 Miscellaneous Information (Consult) 1 ea N/A UD PRN PRN Reason: Consult Stop: 02/22/20 18:08 Ondansetron HCl (Zofran) 4 mg IV Q6H PRN PRN Reason: Nausea Stop: 02/22/20 18:08 Pantoprazole Sodium (Protonix) 40 mg PO BID SHORTY Stop: 02/22/20 20:59 Last Admin: 01/24/20 00:06 Dose: 40 mg Documented by: Polyethylene Glycol (Miralax Powder Packet) 17 gm PO DAILY PRN PRN Reason: Constipation Stop: 02/22/20 18:08 Prednisone (Prednisone) 40 mg PO DAILY [facility] Stop: 01/28/20 09:01 Pregabalin (Lyrica) 75 mg PO BID SHORTY Stop: 02/22/20 20:59 Last Admin: 01/24/20 00:06 Dose: 75 mg Documented by: Temazepam (Restoril) 30 mg PO HS PRN PRN Reason: Sleep Stop: 02/22/20 18:08 Tramadol HCl (Ultram) 50 mg PO BID PRN PRN Reason: pain Stop: 02/22/20 18:08 Trazodone HCl (Desyrel) 50 mg PO HS SHORTY Stop: 02/22/20 20:59 Last Admin: 01/24/20 00:05 Dose: 50 mg Documented by: Umeclidinium [place] (Incruse Ellipta) 1 puffs INH QAM SHORTY Stop: 02/23/20 08:59 (1) Closed fracture of inferior pubic ramus Encounter type: initial encounter Laterality: left Qualified Code(s): S32.592A - Other specified fracture of left pubis, initial encounter for closed fracture (2) Pneumonia Laterality: left Lung location: lower lobe of lung Pneumonia type: due to unspecified organism Qualified Code(s): J18.9 - Pneumonia, unspecified organism
[2020-01-24] MEDS: FLUTICASONE/VILANTEROL 100/25MCG 14 PUFFS/INHALER INH SCH (09:06)
[2020-01-24] MEDS: UMECLIDINIUM BROMIDE 62.5MCG/BLISTER 7 PUFFS/INHALER INH SCH (09:06)
[2020-01-24] MEDS: predniSONE 20 MG TAB PO SCH (09:09)
[2020-01-24 10:55] LABS: Hemoglobin 6.8 g/dL (12.0-16.0)
--- NOTE | 2020-01-24 11:15 | Fluoroscopy Report ---
MODIFIED BARIUM SWALLOW CLINICAL HISTORY: r/o aspiration COMPARISON STUDY: None. FLUOROSCOPY TIME: 1.4 minutes. TECHNIQUE: A modified barium swallow was performed in conjunction with Speech Pathology. The patient ingested varying consistencies of barium containing material. Video fluoroscopy was performed. FINDINGS: There was eventual trace silent tracheal aspiration with thin liquids and nectar thick liqu ids due to incomplete epiglottic inversion. There was no aspiration with pudding consistencies. IMPRESSION: 1. Eventual trace silent tracheal aspiration with thin liquids and nectar thick liquids. No aspiratio n with pudding consistency. 2. Full recommendations by speech pathology to follow. ACT 112: Negative or not required by law. Electronically signed by: Constantin Richter M.D. 01/24/2020 11:13 AM
--- NOTE | 2020-01-24 13:57 | Critical Care Progress Note ---
Date of Service January 24, 2020 Assessment & Plan (1) Acute and chronic respiratory failure with hypoxia: Reason Critically Ill: Patient is a 79-year-old female with a history of breast cancer status post radical mastectomy with COPD and continued tobacco abuse through vaping who presents with acute on chronic hypoxic respiratory failure secondary to left lower lobe pneumonia/mucoid impaction. PLAN: Neuro: Tramadol for pain Amitriptyline -Continue Lyrica -Continue Insomnia -Restoril as needed Resp: Acute on chronic hypoxic respiratory failure: COPD Continued nicotine dependence: Vaping -We will proceed with bronchoscopy -Advised she needs to discontinue all vaping and tobacco use Pneumonia -Left lower lobe Mucoid impaction of left lower lobe -Completed bronchoscopy yesterday -Reviewed swallow study last concern for aspiration -Positive pressure therapy would likely preclude the patient from being able to expectorate the secretions CV: Abnormal EKG -Incomplete right bundle branch block -QTc 467 Fluids/Renal: Hypomagnesemia -400 mg nightly ID: IV Zosyn, vancomycin, Levaquin -de-escalation to Rocephin and Levaquin, discontinue vancomycin today -Awaiting final bronchoscopy results GI/Nutrition: Heart healthy diet after recovery from Precedex for bronchoscopy History duodenal ulcer -Discussed with hospitalist will transfuse 1 unit packed red blood cells Heme: Myelodysplastic syndrome -Continue hydroxyurea Patient consented for blood should she need it DVT prophylaxis: Lovenox -Was not receiving systemic anticoagulation previously secondary to gastrointestinal bleeding risks -Given decreased ambulation I feel at minimum she requires c hemoprophylaxis Endocrine: ICU hyperglycemia protocol Vascular access: Peripheral IVs -Patient consented for intubation, central venous access, intubation, arterial line and blood Code Status: Full Disposition: ICU (2) Pneumonia: (3) Duodenal ulcer: (4) CKD (chronic kidney disease), stage III: (5) H/O mastectomy: (6) History of cholecystectomy: (7) S/P ORIF (open reduction internal fixation) fracture: (8) Myelodysplastic syndrome: (9) Anemia: (10) Abnormal CXR (chest x-ray): (11) Mucoid impaction of bronchi: (12) Vapes nicotine containing substance: (13) COPD (chronic obstructive pulmonary disease): Admission and Anticipated Discharge Date Admission Date: January 23, 2020 Subjective Feels improved compared to yesterday Review of Systems Review of Systems: Continued shortness of breath Physical Exam Physical Exam: General: Alert. nontoxic. Frail in appearance Skin: Warm, dry, Head: Atraumatic Ears, nose, mouth and throat: airway patent Cardiovascular: Normal peripheral perfusion Respiratory: no respiratory distress, speaks in full sentences Gastrointestinal: Non distended Musculoskeletal: No deformity Results & Data Results & Data ([facility]) Vital Signs (Past 12 Hours) Vital Signs Temp Pulse Pulse Resp BP Pulse Ox 01/24/20 13:00 95 H 108/39 L 98 01/24/20 12:55 101 H 99 01/24/20 12:50 97 H 99 01/24/20 12:45 97 H 99 01/24/20 12:40 98 H 98 01/24/20 12:35 96 H 97 01/24/20 12:30 96 H 97 01/24/20 12:25 95 H 97 01/24/20 12:20 96 H 97 01/24/20 12:15 99 H 91 01/24/20 12:10 100 H 88 L 01/24/20 12:05 100 H 93 01/24/20 12:00 98 H 101/42 L 99 01/24/20 11:55 95 H 98 01/24/20 11:50 94 H 98 01/24/20 11:45 94 H 98 01/24/20 11:40 94 H 98 01/24/20 11:35 95 H 100 01/24/20 11:30 89 100 01/24/20 11:25 89 88 18 96 01/24/20 11:20 89 97 01/24/20 11:15 90 98 01/24/20 11:10 90 97 01/24/20 11:05 90 96 01/24/20 11:00 90 110/42 L 01/24/20 10:59 91 H 108/40 L 01/24/20 10:58 92 H 101/49 L 01/24/20 10:57 100 H 01/24/20 10:20 95 H 96 01/24/20 10:15 98 H 90 01/24/20 10:10 94 H 97 01/24/20 10:05 96 H 98 01/24/20 10:00 93 H 105/43 L 95 01/24/20 09:55 92 H 95 01/24/20 09:50 97 H 96 01/24/20 09:45 94 H 97 01/24/20 09:40 96 H 94 01/24/20 09:35 96 H 97 01/24/20 09:30 96 H 97 01/24/20 09:25 95 H 97 01/24/20 09:20 95 H 96 01/24/20 09:15 100 H 92 01/24/20 09:10 96 H 96 01/24/20 09:05 98 H 97 01/24/20 09:00 98 H 99/45 L 96 01/24/20 08:55 96 H 96 01/24/20 08:50 97 H 96 01/24/20 08:45 98 H 96 01/24/20 08:40 99 H 96 01/24/20 08:35 37.7 C H 99 H 95 01/24/20 08:00 99 H 01/24/20 07:45 99 H 98 01/24/20 07:40 99 H 97 01/24/20 07:35 98 H 97 01/24/20 07:30 98 H 97 01/24/20 07:25 96 H 97 01/24/20 07:20 96 H 97 01/24/20 07:15 94 H 100 01/24/20 07:10 93 H 100 01/24/20 07:05 91 H 100 01/24/20 07:00 92 H 101/41 L 99 01/24/20 06:59 98 H 18 94 01/24/20 06:55 100 H 92 01/24/20 06:50 93 H 94 01/24/20 06:45 94 H 93 01/24/20 06:40 92 H 94 01/24/20 06:35 93 H 94 01/24/20 06:30 96 H 93 01/24/20 06:25 94 H 94 01/24/20 06:20 93 H 95 01/24/20 06:15 95 H 93 01/24/20 06:10 96 H 95 01/24/20 06:05 94 H 93 01/24/20 06:00 93 H 114/53 L 93 01/24/20 05:00 97 H 116/44 L 95 01/24/20 04:00 36.7 C 99 H 14 93/46 L 95 01/24/20 03:00 100 H 102/48 L 93 01/24/20 02:00 103 H 106/48 L 95 Laboratory Results 01/24/20 01/24/20 01/24/20 Range/Units 11:43 09:56 05:58 WBC (4.8-10.8) K/uL RBC (4.2-5.4) M/uL Hgb 6.8 L* (12.0-16.0) g/dL Hct 22.0 L (37-47) % MCV (80-100) fL MCH (25-34) pg MCHC (32-36) g/dL RDW Std Deviation (36.4-46.3) fL RDW Coeff of Radha (11.5-14.5) % Plt Count (130-400) K/uL MPV (7.4-10.4) fL Immature Gran % (Auto) % Neut % (Auto) % Lymph % (Auto) % Ponce % (Auto) % Eos % (Auto) % Baso % (Auto) % Immature Gran # (Auto) (0.00-0.02) K/uL Neut # (Auto) (1.4-6.5) K/uL Lymph # (Auto) (1.2-3.4) K/uL Ponce # (Auto) (0.11-0.59) K/uL Eos # (Auto) (0-0.5) K/uL Baso # (Auto) (0-0.2) K/uL Basophilic Stippling Anisocytosis Ovalocytes Sodium (136-145) mmol/L Potassium (3.5-5.1) mmol/L Chloride (98-107) mmol/L Carbon Dioxide (21-32) mmol/L Anion Gap (3-11) BUN (7-18) mg/dl Creatinine (0.6-1.2) mg/dl Est Cr Clr Drug Dosing ml/min Est GFR ( Amer) Est GFR (Non-Af Amer) BUN/Creatinine Ratio (10-20) Glucose (70-99) mg/dl POC Glucose 131 H 112 H (70-99) mg/dl Calcium (8.5-10.1) mg/dl Total Bilirubin (0.2-1) mg/dl AST (15-37) U/L ALT (12-78) U/L Alkaline Phosphatase (45-117) U/L Troponin I (0-0.045) ng/ml Total Protein (6.4-8.2) gm/dl Albumin (3.4-5.0) gm/dl Globulin (2.5-4.0) gm/dl Albumin/Globulin Ratio (0.9-2) Urine Color Urine Appearance (Clear) Urine pH (4.5-7.5) Ur Specific Sandy (1.000-1.030) Urine Protein (Negative) Urine Glucose (UA) (Negative) Urine Ketones (Negative) Urine Blood (Negative) Urine Nitrite (Negative) Urine Bilirubin (Negative) Urine Urobilinogen (Negative) Ur Leukocyte Esterase (Negative) Urine WBC (Auto) (0-5) /hpf Urine RBC (Auto) (0-4) /hpf U Hyaline Cast (Auto) (0-5) /lpf U Epithel Cells (Auto) (0-5) /lpf Urine Bacteria (Auto) (Negative) Fluid Neutrophils % % Fluid Lymphocytes % % Fluid Eosinophils % % Fluid Basophils % % Fl Monocyt/Macrophag % % Nasal Screen MRSA (PCR) (Negative) 01/24/20 01/24/20 01/24/20 Range/Units 05:10 04:09 04:09 WBC 24.22 H (4.8-10.8) K/uL RBC 2.39 L (4.2-5.4) M/uL Hgb 7.3 L (12.0-16.0) g/dL Hct 23.7 L (37-47) % MCV 99.2 (80-100) fL MCH 30.5 (25-34) pg MCHC 30.8 L (32-36) g/dL RDW Std Deviation 95.5 H (36.4-46.3) fL RDW Coeff of Radha 27.7 H (11.5-14.5) % Plt Count 380 (130-400) K/uL MPV 12.1 H (7.4-10.4) fL Immature Gran % (Auto) 0.4 % Neut % (Auto) 87.6 % Lymph % (Auto) 3.3 % Ponce % (Auto) 8.6 % Eos % (Auto) 0.0 % Baso % (Auto) 0.1 % Immature Gran # (Auto) 0.10 H (0.00-0.02) K/uL Neut # (Auto) 21.20 H (1.4-6.5) K/uL Lymph # (Auto) 0.81 L (1.2-3.4) K/uL Ponce # (Auto) 2.08 H (0.11-0.59) K/uL Eos # (Auto) 0.01 (0-0.5) K/uL Baso # (Auto) 0.02 (0-0.2) K/uL Basophilic Stippling 1+ Anisocytosis Present Ovalocytes 1+ Sodium 143 (136-145) mmol/L Potassium 4.9 D (3.5-5.1) mmol/L Chloride 115 H (98-107) mmol/L Carbon Dioxide 21 (21-32) mmol/L Anion Gap 7.0 (3-11) BUN 37 H (7-18) mg/dl Creatinine 1.31 H (0.6-1.2) mg/dl Est Cr Clr Drug Dosing 28.4 ml/min Est GFR ( Amer) 45.4 Est GFR (Non-Af Amer) 39.2 BUN/Creatinine Ratio 28.5 H (10-20) Glucose 89 (70-99) mg/dl POC Glucose (70-99) mg/dl Calcium 7.4 L (8.5-10.1) mg/dl Total Bilirubin 0.5 (0.2-1) mg/dl AST 20 (15-37) U/L ALT 23 (12-78) U/L Alkaline Phosphatase 59 (45-117) U/L Troponin I (0-0.045) ng/ml Total Protein 5.2 L (6.4-8.2) gm/dl Albumin 2.4 L (3.4-5.0) gm/dl Globulin 2.8 (2.5-4.0) gm/dl Albumin/Globulin Ratio 0.9 (0.9-2) Urine Color Yellow Urine Appearance Clear (Clear) Urine pH 5.0 (4.5-7.5) Ur Specific Sandy 1.035 H (1.000-1.030) Urine Protein Trace H (Negative) Urine Glucose (UA) Negative (Negative) Urine Ketones Negative (Negative) Urine Blood Negative (Negative) Urine Nitrite Negative (Negative) Urine Bilirubin Negative (Negative) Urine Urobilinogen Negative (Negative) Ur Leukocyte Esterase Trace H (Negative) Urine WBC (Auto) 10-30 H (0-5) /hpf Urine RBC (Auto) 5-10 H (0-4) /hpf U Hyaline Cast (Auto) 1-5 (0-5) /lpf U Epithel Cells (Auto) 10-20 H (0-5) /lpf Urine Bacteria (Auto) Negative (Negative) Fluid Neutrophils % % Fluid Lymphocytes % % Fluid Eosinophils % % Fluid Basophils % % Fl Monocyt/Macrophag % % Nasal Screen MRSA (PCR) (Negative) 01/23/20 01/23/20 01/23/20 Range/Units 23:45 19:51 19:00 WBC (4.8-10.8) K/uL RBC (4.2-5.4) M/uL Hgb (12.0-16.0) g/dL Hct (37-47) % MCV (80-100) fL MCH (25-34) pg MCHC (32-36) g/dL RDW Std Deviation (36.4-46.3) fL RDW Coeff of Radha (11.5-14.5) % Plt Count (130-400) K/uL MPV (7.4-10.4) fL Immature Gran % (Auto) % Neut % (Auto) % Lymph % (Auto) % Ponce % (Auto) % Eos % (Auto) % Baso % (Auto) % Immature Gran # (Auto) (0.00-0.02) K/uL Neut # (Auto) (1.4-6.5) K/uL Lymph # (Auto) (1.2-3.4) K/uL Ponce # (Auto) (0.11-0.59) K/uL Eos # (Auto) (0-0.5) K/uL Baso # (Auto) (0-0.2) K/uL Basophilic Stippling Anisocytosis Ovalocytes Sodium (136-145) mmol/L Potassium (3.5-5.1) mmol/L Chloride (98-107) mmol/L Carbon Dioxide (21-32) mmol/L Anion Gap (3-11) BUN (7-18) mg/dl Creatinine (0.6-1.2) mg/dl Est Cr Clr Drug Dosing ml/min Est GFR ( Amer) Est GFR (Non-Af Amer) BUN/Creatinine Ratio (10-20) Glucose (70-99) mg/dl POC Glucose 131 H (70-99) mg/dl Calcium (8.5-10.1) mg/dl Total Bilirubin (0.2-1) mg/dl AST (15-37) U/L ALT (12-78) U/L Alkaline Phosphatase (45-117) U/L Troponin I 0.401 H* (0-0.045) ng/ml Total Protein (6.4-8.2) gm/dl Albumin (3.4-5.0) gm/dl Globulin (2.5-4.0) gm/dl Albumin/Globulin Ratio (0.9-2) Urine Color Urine Appearance (Clear) Urine pH (4.5-7.5) Ur Specific [place] (1.000-1.030) Urine Protein (Negative) Urine Glucose (UA) (Negative) Urine Ketones (Negative) Urine Blood (Negative) Urine Nitrite (Negative) Urine Bilirubin (Negative) Urine Urobilinogen (Negative) Ur Leukocyte Esterase (Negative) Urine WBC (Auto) (0-5) /hpf Urine RBC (Auto) (0-4) /hpf U Hyaline Cast (Auto) (0-5) /lpf U Epithel Cells (Auto) (0-5) /lpf Urine Bacteria (Auto) (Negative) Fluid Neutrophils % 90 % Fluid Lymphocytes % 4 % Fluid Eosinophils % 0 % Fluid Basophils % 0 % Fl Monocyt/Macrophag % 6 % Nasal Screen MRSA (PCR) (Negative) 01/23/20 01/23/20 Range/Units 18:15 14:06 WBC (4.8-10.8) K/uL RBC (4.2-5.4) M/uL Hgb (12.0-16.0) g/dL Hct (37-47) % MCV (80-100) fL MCH (25-34) pg MCHC (32-36) g/dL RDW Std Deviation (36.4-46.3) fL RDW Coeff of Radha (11.5-14.5) % Plt Count (130-400) K/uL MPV (7.4-10.4) fL Immature Gran % (Auto) % Neut % (Auto) % Lymph % (Auto) % Ponce % (Auto) % Eos % (Auto) % Baso % (Auto) % Immature Gran # (Auto) (0.00-0.02) K/uL Neut # (Auto) (1.4-6.5) K/uL Lymph # (Auto) (1.2-3.4) K/uL Ponce # (Auto) (0.11-0.59) K/uL Eos # (Auto) (0-0.5) K/uL Baso # (Auto) (0-0.2) K/uL Basophilic Stippling Anisocytosis Ovalocytes Sodium (136-145) mmol/L Potassium (3.5-5.1) mmol/L Chloride (98-107) mmol/L Carbon Dioxide (21-32) mmol/L Anion Gap (3-11) BUN (7-18) mg/dl Creatinine (0.6-1.2) mg/dl Est Cr Clr Drug Dosing ml/min Est GFR ( Amer) Est GFR (Non-Af Amer) BUN/Creatinine Ratio (10-20) Glucose (70-99) mg/dl POC Glucose (70-99) mg/dl Calcium (8.5-10.1) mg/dl Total Bilirubin (0.2-1) mg/dl AST (15-37) U/L ALT (12-78) U/L Alkaline Phosphatase (45-117) U/L Troponin I 0.566 H* (0-0.045) ng/ml Total Protein (6.4-8.2) gm/dl Albumin (3.4-5.0) gm/dl Globulin (2.5-4.0) gm/dl Albumin/Globulin Ratio (0.9-2) Urine Color Urine Appearance (Clear) Urine pH (4.5-7.5) Ur Specific Sandy (1.000-1.030) Urine Protein (Negative) Urine Glucose (UA) (Negative) Urine Ketones (Negative) Urine Blood (Negative) Urine Nitrite (Negative) Urine Bilirubin (Negative) Urine Urobilinogen (Negative) Ur Leukocyte Esterase (Negative) Urine WBC (Auto) (0-5) /hpf Urine RBC (Auto) (0-4) /hpf U Hyaline Cast (Auto) (0-5) /lpf U Epithel Cells (Auto) (0-5) /lpf Urine Bacteria (Auto) (Negative) Fluid Neutrophils % % Fluid Lymphocytes % % Fluid Eosinophils % % Fluid Basophils % % Fl Monocyt/Macrophag % % Nasal Screen MRSA (PCR) Negative (Negative) Coding Level of Care Code 08489 Subseq Hosp Care Lvl 3 Diagnoses Acute and chronic respiratory failure with hypoxia J96.21 Pneumonia J18.9 Laterality: left Lung location: lower lobe of lung Pneumonia type: due to unspecified organism Duodenal ulcer K26.9 CKD (chronic kidney disease), stage III N18.3 H/O mastectomy Z90.10 History of cholecystectomy Z90.49 S/P ORIF (open reduction internal fixation) fracture Z96.7; Z87.81 Myelodysplastic syndrome D46.9 Anemia D64.9 Anemia type: unspecified type Abnormal CXR (chest x-ray) R93.89 Mucoid impaction of bronchi J98.09 Vapes nicotine containing substance Z72.0 COPD (chronic obstructive pulmonary disease) J44.9 COPD type: unspecified COPD (1) Pneumonia Laterality: left Lung location: lower lobe of lung Pneumonia type: due to unspecified organism Qualified Code(s): J18.9 - Pneumonia, unspecified organism (2) Anemia Anemia type: unspecified type Qualified Code(s): D64.9 - Anemia, unspecified (3) COPD (chronic obstructive pulmonary disease) COPD type: unspecified COPD Qualified Code(s): J44.9 - Chronic obstructive pulmonary disease, unspecified
[2020-01-24] MEDS ORDERED: SODIUM CHLORIDE 0.9% 250 ML IV PRN (14:02)
[2020-01-24] MEDS: cefTRIAXone SODIUM 1,000 MG in DEXTROSE 5% 50 ML IV SCH (14:58)
[2020-01-24] MEDS: ACETAMINOPHEN 325 MG TAB PO PRN (17:59)
[2020-01-24] MEDS: ENOXAPARIN INJ 30 MG/0.3 ML SYR SQ SCH (19:54)
[2020-01-24] MEDS: TEMAZEPAM 15 MG CAPSULE PO PRN (21:41)
[2020-01-25 00:46] LABS: Basophils # (auto) 0.01 K/uL (0-0.2); Basophils % (auto) 0.1 %; Eosinophils # (auto) 0.02 K/uL (0-0.5); Eosinophils % (auto) 0.1 %; Hematocrit (blood only) 23.3 % (37-47); Hemoglobin 7.6 g/dL (12.0-16.0); Immature Granulocytes # (auto) 0.07 K/uL (0.00-0.02); Immature Granulocytes % (auto) 0.4 %; Lymphocytes # (auto) 0.63 K/uL (1.2-3.4); Lymphocytes % (auto) 3.6 %; Mean Corpuscular Hemoglobin 31.1 pg (25-34); Mean Corpuscular Hgb Conc 32.6 g/dL (32-36); Mean Corpuscular Volume 95.5 fL (80-100); Monocytes # (auto) 1.08 K/uL (0.11-0.59); Monocytes % (auto) 6.2 %; Neutrophils # (auto) 15.63 K/uL (1.4-6.5); Neutrophils % (auto) 89.6 %; Nucleated RBC # (auto) 0.02 K/uL (0-0); Nucleated RBC % (auto) 0.1 %; Platelet Count 341 K/uL (130-400); RDW Coefficient of Variation 26.8 % (11.5-14.5); Red Blood Count 2.44 M/uL (4.2-5.4); White Blood Count 17.44 K/uL (4.8-10.8)
[2020-01-25 01:03] LABS: BUN Creatinine Ratio 34.2 (10-20); Calcium 7.5 mg/dl (8.5-10.1); Creatinine Clr Calc Pharmacy 32.7 ml/min; Est GFR (African American) 53.7; Est GFR (Non-African American) 46.3; Magnesium 2.8 mg/dl (1.8-2.4); Phosphorus 3.2 mg/dl (2.5-4.9); Potassium 4.4 mmol/L (3.5-5.1)
[2020-01-25 01:07] LABS: Anisocytosis Present; Giant Platelets 1+; Ovalocytes 1+; Schistocytes Occasional
[2020-01-25] MEDS: ALBUT/IPRATROP 3MG/0.5MG NEB 3 ML VIAL NEB SCH ×4 (07:09→19:22)
[2020-01-25] MEDS: ACETAMINOPHEN 325 MG TAB PO PRN ×2 (07:10→20:45)
[2020-01-25 08:05] LABS: Hematocrit (blood only) 26.3 % (37-47); Hemoglobin 8.3 g/dL (12.0-16.0)
--- NOTE | 2020-01-25 09:00 | Hospitalist Progress Note ---
Date of Service January 25, 2020 Assessment & Plan (1) Vapes nicotine containing substance: Strongly encouraged to quit, contemplative phase. (2) Acute and chronic respiratory failure with hypoxia: Improved. Multifocal pneumonia and mucous plugging status post bronchoscopy. Oxygen needs have improved. She is on board with quitting smoking and vaping. Continue broad-spectrum antibiotics. Continue pulmonary toilet. Continue short course of steroids (3) Pneumonia: cont plan as above. (4) COPD exacerbation: Cont prednisone and duonebs. Cont home inhalers. (5) Sepsis: Resuscitated. Continue plan for treatment of pneumonia as above. (6) Duodenal ulcer: Diagnosed 12/18/2019 via EGD with melena and symptomatic anemia. She remains on a PPI twice daily. Abdominal tenderness is improved and she is not having any blood per rectum at this time. She is anemic and blood was given yesterday with appropriate rise in H&H. (7) Anemia: Multifactorial including acute GI blood loss related to his known peptic ulcer disease in addition to chronic medical issues. (8) Myelodysplastic syndrome: Also known to have a JAK2 mutation per records making her high risk for thrombosis with her age. She is followed by Dr. hCavez ([facility]) who has her on anagrelide and hydroxyurea. She has not been able to take the anagrelide, however, since Jul due to a medication shortage. Noted chronic appearing thromboembolic disease on CT chest and partial thrombus present in thoracic aorta. Continues on Lovenox for DVT prophylaxis and home hydroxyurea. 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 However, at this time so close to her GI bleed with anemia, will hold off on this until GI clears her. Close outpat ient Hematology follow-up recommended. (9) Closed fracture of inferior pubic ramus: Diagnosed with acute left inferior pubic ramus fracture during recent adm ission 12/16 to 12/30/19 secondary to fall/syncope She refused inpatient rehab and has been receiving outpatient therapy services Consult PT/OT and respiratory status improved (10) Essential thrombocythemia: hydroxyurea, plan as above. (11) Insomnia: On temazepam, trazodone, amitriptyline at bedtime per home regimen. (12) DVT prophylaxis: Lovenox Full Code Dispo[facility]transferred to floor. [facility] Admission and Anticipated Discharge Date Admission Date: January 23, 2020 Subjective Transfused 1 unit of irradiated leukocyte reduced RBCs on 01/23. She felt well post transfusion but this morning is reporting generalized malaise. She reports an improvement in her abdominal tenderness which was present yesterday. She is tolerating p.o. She has been afebrile with improvements in her oxygen needs overnight. She does report some shortness of breath. Review of Systems Review of Systems: All systems reviewed & are unremarkable except as noted in Subjective Physical Exam Physical Exam: CONSTITUTIONAL: WNWD, vitals as above, generally well- appearing EYES: no scleral icterus ENT: external ear and nose normal NECK: trachea midline RESPIRATORY: Clear to auscultation bilaterally, no crackles, rales or wheezes, normal respiratory effort CARDIOVASCULAR: regular rate and rhythm, S1 and 2 heard without murmurs, gallops or rubs, no JVD, no peripheral edema GASTROINTESTINAL: soft, nontender, nondistended MUSCULOSKELETAL: physically deconditioned but moves all extremities symmetrically, head is normocephalic and atraumatic SKIN: warm and dry NEUROLOGIC: CN 2-12 grossly intact, no sensory deficit, normal cognition, normal speech, no gross focal deficit. PSYCHIATRIC: alert cooperative and oriented to person, place and time. Results & Data Results & Data ([facility]) Vital Signs (Past 12 Hours) Vital Signs Temp Pulse Pulse Pulse Resp BP BP 01/25/20 08:00 115 H 24 139/80 01/25/20 07:48 37.0 C 115 H 22 151/85 H 01/25/20 07:41 114 H 19 151/85 H 01/25/20 07:38 113 H 19 160/84 H 01/25/20 07:29 101 H 20 01/25/20 07:00 96 H 18 153/73 H 01/25/20 06:00 93 H 94 H 17 149/67 H 01/25/20 05:00 87 12 142/66 H 01/25/20 04:00 36.6 C 89 19 145/67 H 01/25/20 03:00 89 16 150/76 H 01/25/20 02:00 90 16 143/66 H 01/25/20 01:00 83 12 123/56 L 01/25/20 00:00 36.7 C 92 H 13 132/64 01/24/20 23:00 97 H 12 119/49 L 01/24/20 22:00 93 H 15 130/58 L 01/24/20 21:00 37.4 C 14 124/52 L Pulse Ox Pulse Ox 01/25/20 08:00 92 01/25/20 07:48 92 01/25/20 07:41 92 01/25/20 07:38 92 01/25/20 07:29 93 01/25/20 07:00 93 01/25/20 06:00 95 01/25/20 05:00 97 01/25/20 04:00 96 01/25/20 03:00 94 01/25/20 02:00 97 01/25/20 01:00 95 01/25/20 00:00 93 93 01/24/20 23:00 97 01/24/20 22:00 97 01/24/20 21:00 96 Laboratory Results Short CBC 01/24/20 01/25/20 01/25/20 Range/Units 09:56 00:40 07:44 WBC 17.44 H (4.8-10.8) K/uL Hgb 6.8 L* 7.6 L 8.3 L (12.0-16.0) g/dL Hct 22.0 L 23.3 L 26.3 L (37-47) % Plt Count 341 (130-400) K/uL BMP 01/25/20 00:40 Sodium 143 Potassium 4.4 Chloride 115 H Carbon Dioxide 22 BUN 39 H Creatinine 1.14 Glucose 108 H Calcium 7.5 L Medications Administered Current Inpatient Medications Acetaminophen (Tylenol) 650 mg PO Q4H PRN PRN Reason: Pain or Fever Stop: 02/22/20 18:08 Last Admin: 01/25/20 07:10 Dose: 650 mg Documented by: Al Hydrox/Mg Hydrox/Simethicone (Maalox) 15 ml PO Q4H PRN PRN Reason: Dyspepsia Stop: 02/22/20 18:08 Albuterol (Duoneb) 3 ml NEB QIDR SHORTY Stop: 02/22/20 18:08 Last Admin: 01/25/20 07:09 Dose: 3 ml Documented by: Amitriptyline HCl (Elavil) 75 mg PO SHORTY Stop: 02/22/20 20:59 Last Admin: 01/24/20 21:15 Dose: 75 mg Documented by: Enoxaparin Sodium (Lovenox) 30 mg SQ QAM [facility] Stop: 02/23/20 08:59 Last Admin: 01/24/20 19:54 Dose: 30 mg Documented by: Fluticasone/Vilanterol (Breo Ellipta 100/25 Mcg Inh) 1 puffs INH QAM [facility] Stop: 02/23/20 08:59 Last Admin: 01/24/20 09:06 Dose: 1 puffs Documented by: Hydroxyurea (Hydrea) 500 mg PO HS [facility] Stop: 02/22/20 20:59 Last Admin: 01/24/20 21:16 Dose: 500 mg Documented by: Levofloxacin/Dextrose (Levaquin/D5w) 750 mg in 150 mls @ 100 mls/hr IV Q48H [facility]; Protocol Stop: 01/30/20 20:59 Last Infusion: 01/24/20 01:13 Dose: Infused Documented by: Ceftriaxone Sodium 1,000 mg/ (Dextrose) 50 mls @ 100 mls/hr IV Q24H [facility]; Protocol Stop: 01/31/20 14:14 Last Infusion: 01/24/20 15:47 Dose: Infused Documented by: Ioversol (Optiray 320 125ml) 120 ml IV ONCE PRN PRN Reason: Interaction Checking Stop: 01/27/20 11:36 Magnesium Hydroxide (Milk Of Magnesia) 30 ml PO Q12H PRN PRN Reason: Constipation Stop: 02/22/20 18:08 Magnesium Oxide (Mag-Ox) 400 mg PO QPM [facility] Stop: 02/22/20 20:59 Last Admin: 01/24/20 21:16 Dose: 400 mg Documented by: Ondansetron HCl (Zofran) 4 mg IV Q6H PRN PRN Reason: Nausea Stop: 02/22/20 18:08 Pantoprazole Sodium (Protonix) 40 mg PO BID [facility] Stop: 02/22/20 20:59 Last Admin: 01/24/20 21:16 Dose: 40 mg Documented by: Polyethylene Glycol (Miralax Powder Packet) 17 gm PO DAILY PRN PRN Reason: Constipation Stop: 02/22/20 18:08 Prednisone (Prednisone) 40 mg PO DAILY [facility] Stop: 01/28/20 09:01 Last Admin: 01/24/20 09:09 Dose: 40 mg Documented by: Pregabalin (Lyrica) 75 mg PO BID SHORTY Stop: 02/22/20 20:59 Last Admin: 01/24/20 21:18 Dose: 75 mg Documented by: Temazepam (Restoril) 30 mg PO HS PRN PRN Reason: Sleep Stop: 02/22/20 18:08 Last Admin: 01/24/20 21:41 Dose: 30 mg Documented by: Tramadol HCl (Ultram) 50 mg PO BID PRN PRN Reason: pain Stop: 02/22/20 18:08 Trazodone HCl (Desyrel) 50 mg PO HS SHORTY Stop: 02/22/20 20:59 Last Admin: 01/24/20 21:16 Dose: 50 mg Documented by: Umeclidinium [place] (Incruse Ellipta) 1 puffs INH QAM SHORTY Stop: 02/23/20 08:59 Last Admin: 01/24/20 09:06 Dose: 1 puffs Documented by: (1) Closed fracture of inferior pubic ramus Encounter type: initial encounter Laterality: left Qualified Code(s): S32.592A - Other specified fracture of left pubis, initial encounter for closed fracture (2) Pneumonia Laterality: left Lung location: lower lobe of lung Pneumonia type: due to unspecified organism Qualified Code(s): J18.9 - Pneumonia, unspecified organism
[2020-01-25] MEDS: UMECLIDINIUM BROMIDE 62.5MCG/BLISTER 7 PUFFS/INHALER INH SCH (09:19)
[2020-01-25] MEDS: PANTOprazole 40 MG TAB PO SCH ×2 (09:20→21:26)
[2020-01-25] MEDS: FLUTICASONE/VILANTEROL 100/25MCG 14 PUFFS/INHALER INH SCH (09:20)
[2020-01-25] MEDS: predniSONE 20 MG TAB PO SCH (09:20)
[2020-01-25] MEDS: TRAMADOL HCL 50 MG TABLET PO PRN ×2 (09:23→19:47)
[2020-01-25] MEDS: PREGABALIN 75 MG CAP PO SCH ×2 (09:23→21:26)
[2020-01-25] MEDS: ENOXAPARIN INJ 30 MG/0.3 ML SYR SQ SCH (12:27)
[2020-01-25] MEDS: cefTRIAXone SODIUM 1,000 MG in DEXTROSE 5% 50 ML IV SCH (14:54)
[2020-01-25] MEDS: TEMAZEPAM 15 MG CAPSULE PO PRN (20:48)
[2020-01-25] MEDS: LEVOFLOXACIN/D5W 750 MG/150 ML BAG IV SCH (21:26)
[2020-01-25] MEDS: HYDROXYUREA 500 MG CAP PO SCH (21:26)
[2020-01-25] MEDS: AMITRIPTYLINE HCL 25 MG TAB PO SCH (21:26)
[2020-01-25] MEDS: MAGNESIUM OXIDE 400 MG TAB PO SCH (21:26)
[2020-01-25] MEDS: TRAZODONE HCL 50 MG TAB PO SCH (21:26)
[2020-01-25] MEDS ORDERED: OXYCODONE HCL IR 5 MG TAB (IMMEDIATE RELEASE) PO STA (23:36)
[2020-01-26 06:19] LABS: Basophils # (auto) 0.01 K/uL (0-0.2); Basophils % (auto) 0.1 %; Eosinophils # (auto) 0.05 K/uL (0-0.5); Eosinophils % (auto) 0.4 %; Hematocrit (blood only) 25.6 % (37-47); Hemoglobin 8.1 g/dL (12.0-16.0); Immature Granulocytes # (auto) 0.08 K/uL (0.00-0.02); Immature Granulocytes % (auto) 0.7 %; Lymphocytes # (auto) 0.67 K/uL (1.2-3.4); Mean Corpuscular Hemoglobin 30.6 pg (25-34); Mean Corpuscular Hgb Conc 31.6 g/dL (32-36); Mean Corpuscular Volume 96.6 fL (80-100); Mean Platelet Volume 11.7 fL (7.4-10.4); Monocytes # (auto) 0.67 K/uL (0.11-0.59); Neutrophils # (auto) 9.65 K/uL (1.4-6.5); Neutrophils % (auto) 86.8 %; Nucleated RBC # (auto) 0.02 K/uL (0-0); Nucleated RBC % (auto) 0.2 %; Platelet Count 365 K/uL (130-400); RDW Coefficient of Variation 27.6 % (11.5-14.5); RDW Standard Deviation 92.1 fL (36.4-46.3); Red Blood Count 2.65 M/uL (4.2-5.4); White Blood Count 11.13 K/uL (4.8-10.8)
[2020-01-26 06:41] LABS: Anisocytosis Present; Giant Platelets 1+; Hypochromasia Present
[2020-01-26 06:50] LABS: BUN Creatinine Ratio 30.2 (10-20); Calcium 7.9 mg/dl (8.5-10.1); Creatinine Clr Calc Pharmacy 35.8 ml/min; Est GFR (Non-African American) 51.8; Potassium 5.1 mmol/L (3.5-5.1)
[2020-01-26] MEDS: ALBUT/IPRATROP 3MG/0.5MG NEB 3 ML VIAL NEB SCH ×4 (07:20→19:16)
[2020-01-26] MEDS: PANTOprazole 40 MG TAB PO SCH ×2 (07:55→20:22)
[2020-01-26] MEDS: PREGABALIN 75 MG CAP PO SCH ×2 (07:55→20:27)
[2020-01-26] MEDS: predniSONE 20 MG TAB PO SCH (07:55)
[2020-01-26] MEDS: UMECLIDINIUM BROMIDE 62.5MCG/BLISTER 7 PUFFS/INHALER INH SCH (07:56)
[2020-01-26] MEDS: FLUTICASONE/VILANTEROL 100/25MCG 14 PUFFS/INHALER INH SCH (07:56)
[2020-01-26] MEDS: ENOXAPARIN INJ 30 MG/0.3 ML SYR SQ SCH (09:25)
--- NOTE | 2020-01-26 11:50 | Hospitalist Progress Note ---
Date of Service January 26, 2020 Assessment & Plan (1) Vapes nicotine containing substance: Strongly encouraged to quit, contemplative phase. (2) Acute and chronic respiratory failure with hypoxia: Improved. Multifocal pneumonia and mucous plugging status post bronchoscopy. Oxygen needs have resolved. She is on board with quitting smoking and vaping. De-escalate Rocephin and Levaquin to oral Levaquin for another 5 days. Bronch results were unremarkable. Continue pulmonary toilet. Continue short course of steroids. (3) Pneumonia: cont plan as above. (4) COPD exacerbation: Cont prednisone and duonebs. Cont home inhalers. (5) Sepsis: Resuscitated. Continue plan for treatment of pneumonia as above. (6) Duodenal ulcer: Diagnosed 12/18/2019 via EGD with melena and symptomatic anemia. She remains on a PPI twice daily. Abdominal tenderness is improved and she is not having any blood per rectum at this time. She is anemic and blood transfused with appropriate rise in H&H. (7) Anemia: Multifactorial including acute GI blood loss related to his known peptic ulcer disease in addition to chronic medical issues. (8) Myelodysplastic syndrome: Also known to have a JAK2 mutation per records making her high risk for thrombosis with her age. She is followed by Dr. Chavez ([facility]) who has her on anagrelide and hydroxyurea. She has not been able to take the anagrelide, however, since Jul due to a medication shortage. Noted chronic appearing thromboembolic disease on CT chest and partial thrombus present in thoracic aorta. Continues on Lovenox for DVT prophylaxis and home hydroxyurea. Peripherally discussed the case with her footwear sales associate who notes that she may be well served by full dose anticoagulation. However, at this time so close to her GI bleed with anemia, will hold off on this until GI clears her. Close outpatient Hematology follow-up recommended. (9) Closed fracture of inferior pubic ramus: Diagnosed with acute left inferior pubic ramus fracture during recent admission 12/16 to 12/30/19 secondary to fall/syncope She refused inpatient rehab and has been receiving outpatient therapy services Consult PT/OT and respiratory status improved (10) Essential thrombocythemia: hydroxyurea, plan as above. (11) Insomnia: On temazepam, trazodone, amitriptyline at bedtime per home regimen. (12) DVT prophylaxis: Lovenox Full Code Dispo-transferred to floor. [facility] Admission and Anticipated Discharge Date Admission Date: January 23, 2020 Subjective pt had a difficult night 2/2 being woken up roughly and having a bladder scan performed on her when she refused it she is very upset about this and is requesting to speak with the electric motor repair supervisor. i relayed the information through the nursing chain of command. she is now oxygenating well on room air she is afebrile, tolerating PO and requesting a regular diet denies abdominal pain but still has intermittent tenderness in epigastric area (h/o ulcer noted) Review of Systems Review of Systems: All systems reviewed & are unremarkable except as noted in Subjective Physical Exam Physical Exam: CONSTITUTIONAL: WNWD, vitals as above, generally well- appearing EYES: no scleral icterus ENT: external ear and nose normal NECK: trachea midline RESPIRATORY: Clear to auscultation bilaterally, no crackles, rales or wheezes, normal respiratory effort CARDIOVASCULAR: regular rate and rhythm, S1 and 2 heard without murmurs, gallops or rubs, no JVD, no peripheral edema GASTROINTESTINAL: soft, nontender, nondistended MUSCULOSKELETAL: physically deconditioned but moves all extremities symmetrically, head is normocephalic and atraumatic SKIN: warm and dry NEUROLOGIC: CN 2-12 grossly intact, no sensory deficit, normal cognition, normal speech, no gross focal deficit. PSYCHIATRIC: alert cooperative and oriented to person, place and time. Results & Data Results & Data ([facility]) Vital Signs (Past 12 Hours) Vital Signs Temp Pulse Pulse Pulse Resp BP BP 01/26/20 11:15 97 H 18 01/26/20 08:06 01/26/20 07:31 81 01/26/20 07:26 37.0 C 78 18 135/71 01/26/20 07:20 67 18 01/26/20 02:57 36.4 C L 79 20 104/67 01/26/20 00:45 86 Pulse Ox 01/26/20 11:15 90 01/26/20 08:06 92 01/26/20 07:31 01/26/20 07:26 94 01/26/20 07:20 96 01/26/20 02:57 93 01/26/20 00:45 (1) Closed fracture of inferior pubic ramus Encounter type: initial encounter Laterality: left Qualified Code(s): S32.592A - Other specified fracture of left pubis, initial encounter for closed fracture (2) Pneumonia Laterality: left Lung location: lower lobe of lung Pneumonia type: due to unspecified organism Qualified Code(s): J18.9 - Pneumonia, unspecified organism
[2020-01-26] MEDS: cefTRIAXone SODIUM 1,000 MG in DEXTROSE 5% 50 ML IV SCH (14:31)
[2020-01-26] MEDS: ACETAMINOPHEN 325 MG TAB PO PRN ×2 (16:23→20:20)
[2020-01-26] MEDS: TRAMADOL HCL 50 MG TABLET PO PRN ×2 (16:23→23:39)
[2020-01-26] MEDS: HYDROXYUREA 500 MG CAP PO SCH (20:22)
[2020-01-26] MEDS: AMITRIPTYLINE HCL 25 MG TAB PO SCH (20:23)
[2020-01-26] MEDS: MAGNESIUM OXIDE 400 MG TAB PO SCH (20:23)
[2020-01-26] MEDS: TEMAZEPAM 15 MG CAPSULE PO PRN (20:27)
[2020-01-26] MEDS: TRAZODONE HCL 50 MG TAB PO SCH (20:27)
[2020-01-26] MEDS ORDERED: BENZONATATE 100 MG CAPSULE PO PRN (21:29)
[2020-01-27] MEDS: ALBUT/IPRATROP 3MG/0.5MG NEB 3 ML VIAL NEB SCH ×5 (07:04→19:16)
[2020-01-27] MEDS: PREGABALIN 75 MG CAP PO SCH ×2 (08:31→20:28)
[2020-01-27] MEDS: FLUTICASONE/VILANTEROL 100/25MCG 14 PUFFS/INHALER INH SCH (08:31)
[2020-01-27] MEDS: UMECLIDINIUM BROMIDE 62.5MCG/BLISTER 7 PUFFS/INHALER INH SCH (08:31)
[2020-01-27] MEDS: ENOXAPARIN INJ 30 MG/0.3 ML SYR SQ SCH (08:31)
[2020-01-27] MEDS: PANTOprazole 40 MG TAB PO SCH ×2 (08:32→20:29)
[2020-01-27] MEDS: predniSONE 20 MG TAB PO SCH (08:32)
[2020-01-27] MEDS: ACETAMINOPHEN 325 MG TAB PO PRN (08:34)
[2020-01-27] MEDS ORDERED: ALBUTEROL HFA 8 GM INHALER INH PRN (09:24)
--- NOTE | 2020-01-27 09:28 | Hospitalist Progress Note ---
Date of Service January 27, 2020 Assessment & Plan (1) Vapes nicotine containing substance: Strongly encouraged to quit, contemplative phase. Nicotine patch started as patient appears to be withdrawing from nicotine at this time. (2) Acute and chronic respiratory failure with hypoxia: resolved, Multifocal pneumonia and mucous plugging status post bronchoscopy. She is on board with quitting smoking and vaping. Cont Laevaquin. Bronch results were unremarkable. Continue pulmonary toilet. Continue short course of steroids. (3) Pneumonia: cont plan as above. (4) COPD exacerbation: Cont prednisone and duonebs. Cont home inhalers. (5) Sepsis: Resuscitated. Continue plan for treatment of pneumonia as above. (6) Duodenal ulcer: Diagnosed 12/18/2019 via EGD with melena and symptomatic anemia. She remains on a PPI twice daily. Abdominal tenderness is improved and she is not having any blood per rectum at this time. She is anemic and blood transfused with appropriate rise in H&H. (7) Anemia: Multifactorial including acute GI blood loss related to his known peptic ulcer disease in addition to chronic medical issues. (8) Myelodysplastic syndrome: Also known to have a JAK2 mutation per records making her high risk for thrombosis with her age. She is followed by Dr. Chavez ([facility]) who has her on anagrelide and hydroxyurea. She has not been able to take the anagreli de, however, since Jul due to a medication shortage. Noted chronic appearing thromboembolic disease on CT chest and partial thrombus present in thoracic aorta. Continues on Lovenox for DVT prophylaxis and home hydroxyurea. Peripherally discussed the case with her business development analyst who notes that she may be well served by full dose anticoagulation. However, at this time so close to her GI bleed with anemia, will hold off on this until GI clears her. Close outpatient Hematology follow-up recommended. (9) Closed fracture of inferior pubic ramus: Diagnosed with acute left inferior pubic ramus fracture during recent admission 12/16 to 12/30/19 secondary to fall/syncope She refused inpatient rehab and has been receiving outpatient therapy services Consult PT/OT and respiratory status improved (10) Essential thrombocythemia: hydroxyurea, plan as above. (11) Insomnia: On temazepam, trazodone, amitriptyline at bedtime per home regimen. (12) DVT prophylaxis: Lovenox Full Code Dispo-likely DC to home in am. Desiree Cason DO [facility] Hospitalist Admission and Anticipated Discharge Date Admission Date: January 23, 2020 Subjective Pt feels malaise today No fever, no increased SOB Generalized pain present, first in her ribs from coughing and then later reported in her hips (recent pelvic fracture) Using tramadol and Robitussin AC with some success. Review of Systems Review of Systems: All systems reviewed & are unremarkable except as noted in Subjective Physical Exam Physical Exam: CONSTITUTIONAL: WNWD, vitals as above, generally well- appearing EYES: no scleral icterus ENT: external ear and nose normal NECK: trachea midline RESPIRATORY: rales in RUL. Normal respiratory effort. She is not working to breathe. No crackles or rales and good airflow throughout. CARDIOVASCULAR: regular rate and rhythm, S1 and 2 heard without murmurs, gallops or rubs, no JVD, no peripheral edema GASTROINTESTINAL: soft, nontender, nondistended MUSCULOSKELETAL: physically deconditioned but moves all extremities symmetrically, head is normocephalic and atraumatic SKIN: warm and dry NEUROLOGIC: CN 2-12 grossly intact, no sensory deficit, normal cognition, normal speech, no gross focal deficit. PSYCHIATRIC: alert cooperative and oriented to person, place and time. Results & Data Results & Data ([facility]) Vital Signs (Past 12 Hours) Vital Signs Temp Pulse Pulse Resp BP Pulse Ox 01/27/20 08:40 147/75 H 01/27/20 07:20 36.4 C L 101 H 18 146/103 H 90 01/27/20 07:05 61 16 90 01/26/20 23:12 37.0 C 87 18 146/65 H 90 Diagnostic Findings XR chest 1V portable CLINICAL HISTORY: 79 years-old Female presenting with post-operative coughing and wheezing. FINDINGS: Atherosclerosis of the aortic arch. Cardiac silhouette enlarged. Asymmetric density projecting over the right mid lung consistent with the implant. Right axillary surgical clips. Lungs are hyperinflated. Heterogeneity and coarsening of lung markings. Obscuration of the left hemidiaphragm likely due to complete or near complete collapse of the left lower lobe. Small left pleural effusion may be present. Osteopenia and degenerative changes of the spine. Severe d eforming degenerative change of the left glenohumeral joint. Cholecystectomy clips noted. IMPRESSION: 1. Either dense consolidation of the left lower lobe or complete/near-complete collapse of the left lower lobe. This is new from prior. Infection not excluded. 2. Underlying emphysema. Medications Administered Current Inpatient Medications Acetaminophen (Tylenol) 650 mg PO Q4H PRN PRN Reason: Pain or Fever Stop: 02/22/20 18:08 Last Admin: 01/27/20 08:34 Dose: 650 mg Documented by: Al Hydrox/Mg Hydrox/Simethicone (Maalox) 15 ml PO Q4H PRN PRN Reason: Dyspepsia Stop: 02/22/20 18:08 Albuterol (Duoneb) 3 ml NEB QIDR SHORTY Stop: 02/22/20 18:08 Last Admin: 01/27/20 07:04 Dose: 3 ml Documented by: Albuterol (Ventolin Hfa) 2 puffs INH Q6H PRN PRN Reason: SOB/wheezing Stop: 02/26/20 09:29 Amitriptyline HCl (Elavil) 75 mg PO [facility] Stop: 02/22/20 20:59 Last Admin: 01/26/20 20:23 Dose: 75 mg Documented by: Benzonatate (Tessalon Perle) 100 mg PO TID PRN PRN Reason: Cough Stop: 02/25/20 21:28 Last Admin: 01/26/20 23:16 Dose: 100 mg Documented by: Enoxaparin Sodium (Lovenox) 30 mg SQ QAM [facility] Stop: 02/23/20 08:59 Last Admin: 01/27/20 08:31 Dose: 30 mg Documented by: Fluticasone/Vilanterol (Breo Ellipta 100/25 Mcg Inh) 1 puffs INH QAM SHORTY Stop: 02/23/20 08:59 Last Admin: 01/27/20 08:31 Dose: 1 puffs Documented by: Guaifenesin/Codeine Phosphate (Robitussin-Ac Sugar Free) 10 ml PO Q6H PRN PRN Reason: Cough Stop: 02/26/20 09:20 Guaifenesin/Codeine Phosphate (Robitussin-Ac Sugar Free) 10 ml PO Q6H ONE Stop: 01/27/20 09:23 Hydroxyurea (Hydrea) 500 mg PO [facility] Stop: 02/22/20 20:59 Last Admin: 01/26/20 20:22 Dose: 500 mg Documented by: Ioversol (Optiray 320 125ml) 120 ml IV ONCE PRN PRN Reason: Interaction Checking Stop: 01/27/20 11:36 Levofloxacin (Levaquin) 750 mg PO Q48H [facility]; Protocol Stop: 02/03/20 20:59 Magnesium Hydroxide (Milk Of Magnesia) 30 ml PO Q12H PRN PRN Reason: Constipation Stop: 02/22/20 18:08 Magnesium Oxide (Mag-Ox) 400 mg PO QPM SHORTY Stop: 02/22/20 20:59 Last Admin: 01/26/20 20:23 Dose: 400 mg Documented by: Ondansetron HCl (Zofran) 4 mg IV Q6H PRN PRN Reason: Nausea Stop: 02/22/20 18:08 Pantoprazole Sodium (Protonix) 40 mg PO BID [facility] Stop: 02/22/20 20:59 Last Admin: 01/27/20 08:32 Dose: 40 mg Documented by: Polyethylene Glycol (Miralax Powder Packet) 17 gm PO DAILY PRN PRN Reason: Constipation Stop: 02/22/20 18:08 Prednisone (Prednisone) 40 mg PO DAILY [facility] Stop: 01/28/20 09:01 Last Admin: 01/27/20 08:32 Dose: 40 mg Documented by: Pregabalin (Lyrica) 75 mg PO BID [facility] Stop: 02/22/20 20:59 Last Admin: 01/27/20 08:31 Dose: 75 mg Documented by: Temazepam (Restoril) 30 mg PO HS PRN PRN Reason: Sleep Stop: 02/22/20 18:08 Last Admin: 01/26/20 20:27 Dose: 30 mg Documented by: Tramadol HCl (Ultram) 50 - 100 mg PO Q6H PRN PRN Reason: pain or headache Stop: 02/22/20 18:08 Trazodone HCl (Desyrel) 50 mg PO HS [facility] Stop: 02/22/20 20:59 Last Admin: 01/26/20 20:27 Dose: 50 mg Documented by: Umeclidinium [place] (Incruse Ellipta) 1 puffs INH QAM [facility] Stop: 02/23/20 08:59 Last Admin: 01/27/20 08:31 Dose: 1 puffs Documented by: (1) Closed fracture of inferior pubic ramus Encounter type: initial encounter Laterality: left Qualified Code(s): S32.592A - Other specified fracture of left pubis, initial encounter for closed fracture (2) Pneumonia Laterality: left Lung location: lower lobe of lung Pneumonia type: due to unspecified organism Qualified Code(s): J18.9 - Pneumonia, unspecified organism
[2020-01-27] MEDS ORDERED: GUAIFENESIN/CODEINE 200MG/20MG 10ML UDC PO ONE ×2 (09:29→15:15)
[2020-01-27] MEDS: TRAMADOL HCL 50 MG TABLET PO PRN ×2 (11:26→20:36)
[2020-01-27] MEDS ORDERED: TRAMADOL HCL 50 MG TABLET PO ONE (15:14)
[2020-01-27] MEDS: ONDANSETRON INJ 2 MG/ML 2 ML VIAL IV PRN ×2 (15:31→20:36)
--- NOTE | 2020-01-27 16:00 | XRay Report ---
XR chest 1V portable CLINICAL HISTORY: 79 years-old Female presenting with post-operative coughing and wheezing. TECHNIQUE: Portable upright AP view of the chest was obtained. COMPARISON: 01/23/2020. FINDINGS: Atherosclerosis of the aortic arch. Cardiac silhouette enlarged. Asymmetric density projecting over t he right mid lung consistent with the implant. Right axillary surgical clips. Lungs are hyperinflated . Heterogeneity and coarsening of lung markings. Obscuration of the left hemidiaphragm likely due to complete or near complete collapse of the left lower lobe. Small left pleural effusion may be present . Osteopenia and degenerative changes of the spine. Severe deforming degenerative change of the left glenohumeral joint. Cholecystectomy clips noted. IMPRESSION: 1. Either dense consolidation of the left lower lobe or complete/near-complete collapse of the left lower lobe. This is new from prior. Infection not excluded. 2. Underlying emphysema. ACT 112: Negative or not required by law. Electronically signed by: Bennie Jo M.D. 01/27/2020 3:59 PM
[2020-01-27 18:08] LABS: Hematocrit (blood only) 32.3 % (37-47); Mean Corpuscular Hemoglobin 29.7 pg (25-34); Mean Corpuscular Volume 95.8 fL (80-100); Mean Platelet Volume 11.9 fL (7.4-10.4); Platelet Count 599 K/uL (130-400); RDW Coefficient of Variation 27.6 % (11.5-14.5); RDW Standard Deviation 91.7 fL (36.4-46.3); Red Blood Count 3.37 M/uL (4.2-5.4); White Blood Count 17.99 K/uL (4.8-10.8)
[2020-01-27 18:23] LABS: Albumin Level 2.7 gm/dl (3.4-5.0); BUN Creatinine Ratio 22.7 (10-20); Calcium 8.1 mg/dl (8.5-10.1); Creatinine Clr Calc Pharmacy 34.2 ml/min; Est GFR (African American) 56.7; Est GFR (Non-African American) 48.9; Magnesium 2.1 mg/dl (1.8-2.4); Potassium 5.2 mmol/L (3.5-5.1)
[2020-01-27 18:26] LABS: Albumin Globulin Ratio 0.8 (0.9-2); Bilirubin,Total 0.4 mg/dl (0.2-1); Globulin 3.6 gm/dl (2.5-4.0); Phosphorus 2.8 mg/dl (2.5-4.9); Total Protein 6.3 gm/dl (6.4-8.2)
[2020-01-27 18:34] LABS: Anisocytosis Present; Basophils # (auto) 0.02 K/uL (0-0.2); Basophils % (auto) 0.1 %; Eosinophils # (auto) 0.01 K/uL (0-0.5); Eosinophils % (auto) 0.1 %; Giant Platelets 1+; Immature Granulocytes # (auto) 0.26 K/uL (0.00-0.02); Immature Granulocytes % (auto) 1.4 %; Lymphocytes # (auto) 0.64 K/uL (1.2-3.4); Lymphocytes % (auto) 3.6 %; Monocytes # (auto) 0.45 K/uL (0.11-0.59); Monocytes % (auto) 2.5 %; Neutrophils # (auto) 16.61 K/uL (1.4-6.5); Neutrophils % (auto) 92.3 %; Poikilocytosis Present; Schistocytes Occasional
[2020-01-27] MEDS: NICOTINE 21 MG/24 HR TDSY TD SCH (18:58)
[2020-01-27] MEDS: TRAZODONE HCL 50 MG TAB PO SCH (20:27)
[2020-01-27] MEDS: TEMAZEPAM 15 MG CAPSULE PO PRN (20:28)
[2020-01-27] MEDS: HYDROXYUREA 500 MG CAP PO SCH (20:29)
[2020-01-27] MEDS: levoFLOXacin 750 MG TAB PO SCH (20:29)
[2020-01-27] MEDS: AMITRIPTYLINE HCL 25 MG TAB PO SCH (20:29)
[2020-01-27] MEDS: MAGNESIUM OXIDE 400 MG TAB PO SCH (20:30)
[2020-01-27] MEDS: GUAIFENESIN/CODEINE 200MG/20MG 10ML UDC PO PRN (20:36)
[2020-01-28] MEDS: GUAIFENESIN/CODEINE 200MG/20MG 10ML UDC PO PRN ×2 (02:05→08:44)
[2020-01-28] MEDS: TRAMADOL HCL 50 MG TABLET PO PRN ×3 (02:05→17:16)
[2020-01-28] MEDS: ALBUT/IPRATROP 3MG/0.5MG NEB 3 ML VIAL NEB SCH ×4 (07:10→18:52)
[2020-01-28] MEDS: PANTOprazole 40 MG TAB PO SCH ×2 (08:32→20:55)
[2020-01-28] MEDS: ENOXAPARIN INJ 30 MG/0.3 ML SYR SQ SCH (08:32)
[2020-01-28] MEDS: UMECLIDINIUM BROMIDE 62.5MCG/BLISTER 7 PUFFS/INHALER INH SCH (08:33)
[2020-01-28] MEDS: predniSONE 20 MG TAB PO SCH (08:33)
[2020-01-28] MEDS: NICOTINE 21 MG/24 HR TDSY TD SCH (08:33)
[2020-01-28] MEDS: FLUTICASONE/VILANTEROL 100/25MCG 14 PUFFS/INHALER INH SCH (08:33)
[2020-01-28] MEDS: PREGABALIN 75 MG CAP PO SCH ×2 (08:36→20:55)
[2020-01-28 08:43] LABS: Basophils # (auto) 0.03 K/uL (0-0.2); Basophils % (auto) 0.2 %; Eosinophils # (auto) 0.16 K/uL (0-0.5); Hematocrit (blood only) 31.1 % (37-47); Hemoglobin 9.7 g/dL (12.0-16.0); Immature Granulocytes # (auto) 0.27 K/uL (0.00-0.02); Immature Granulocytes % (auto) 1.7 %; Lymphocytes # (auto) 1.45 K/uL (1.2-3.4); Mean Corpuscular Hemoglobin 30.5 pg (25-34); Mean Corpuscular Hgb Conc 31.2 g/dL (32-36); Mean Corpuscular Volume 97.8 fL (80-100); Mean Platelet Volume 12.3 fL (7.4-10.4); Monocytes # (auto) 1.42 K/uL (0.11-0.59); Monocytes % (auto) 8.8 %; Neutrophils # (auto) 12.77 K/uL (1.4-6.5); Neutrophils % (auto) 79.3 %; Platelet Count 469 K/uL (130-400); RDW Coefficient of Variation 27.3 % (11.5-14.5); RDW Standard Deviation 92.9 fL (36.4-46.3); Red Blood Count 3.18 M/uL (4.2-5.4)
[2020-01-28] MEDS: ACETAMINOPHEN 325 MG TAB PO PRN ×2 (08:43→12:18)
[2020-01-28] MEDS: ONDANSETRON INJ 2 MG/ML 2 ML VIAL IV PRN ×2 (08:43→17:17)
[2020-01-28 09:17] LABS: Anisocytosis Present
[2020-01-28 09:32] LABS: BUN Creatinine Ratio 20.8 (10-20); Calcium 8.8 mg/dl (8.5-10.1); Creatinine Clr Calc Pharmacy 36.2 ml/min; Est GFR (African American) 60.7; Est GFR (Non-African American) 52.4; Potassium 4.1 mmol/L (3.5-5.1)
--- NOTE | 2020-01-28 10:39 | Hospitalist Progress Note ---
Date of Service January 28, 2020 Assessment & Plan (1) Vapes nicotine containing substance: Strongly encouraged to quit, contemplative phase. Nicotine patch started as patient appears to be withdrawing from nicotine at this time. Would continue this at discharge. (2) Acute and chronic respiratory failure with hypoxia: resolved, Multifocal pneumonia and mucous plugging status post bronchoscopy. Some hypoxia overnight and this has resolved. Plan for two step in am prior to discharge. She is on board with quitting smoking and vaping. Cont Levaquin. Bronch results were unremarkable. Continue pulmonary toilet. Continue short course of steroids. Flutter valve and ambulation encouraged. (3) Pneumonia: cont plan as above. (4) COPD exacerbation: Cont prednisone and duonebs. Cont home inhalers. (5) Sepsis: Resuscitated. Continue plan for treatment of pneumonia as above. (6) Duodenal ulcer: Diagnosed 12/18/2019 via EGD with melena and symptomatic anemia. She remains on a PPI twice daily. H/H stable. Would check with GI prior to initiation of any full dose anticoagulation. (7) Anemia: Multifactorial including acute GI blood loss related to his known peptic ulcer disease in addition to chronic medical issues. Improved. (8) Myelodysplastic syndrome: Also known to have a JAK2 mutation per records making her high risk for thrombosis with her age. She is followed by Dr. Chavez ([facility]) who has her on anagrelide and hydroxyurea. She has not been able to take the anagrelide, however, since Jul due to a medication shortage. Noted chronic appearing thromboembolic disease on CT chest and partial thrombus present in thoracic aorta. Continues on Lovenox for DVT prophylaxis and home hydroxyurea. Peripherally discussed the case with her hair spring winder who notes that she may be well served by full dose anticoagulation. However, at this time so close to her GI bleed with anemia, will hold off on this until GI clears her. Close outpatient Hematology follow-up recommended. (9) Closed fracture of inferior pubic ramus: Diagnosed with acute left inferior pubic ramus fracture during recent admission 12/16 to 12/30/19 secondary to fall/syncope She refused inpatient rehab and has been receiving outpatient therapy services Consult PT/OT and respiratory status improved (10) Essential thrombocythemia: hydroxyurea, plan as above. (11) Insomnia: On temazepam, trazodone, amitriptyline at bedtime per home regimen. (12) DVT prophylaxis: Lovenox Full Code Dispo-likely DC to home in am. DO [facility] Admission and Anticipated Discharge Date Admission Date: January 23, 2020 Subjective Pt reports feeling better today after nicotine patch placed yesterday Oxygen dropped to 85% on room air overnight and she required some supplemental oxygen at rest She is now [id number]% on room air. She denies any pain or other issues at this time. Afebrile overnight. Denies increased work of breathing. Review of Systems Review of Systems: All systems reviewed & are unremarkable except as noted in Subjective Physical Exam Physical Exam: CONSTITUTIONAL: thin, vitals as above, generally well- appearing EYES: no scleral icterus ENT: external ear and nose normal NECK: trachea midline RESPIRATORY: clear to auscultation throughout. Normal respiratory effort. She is not working to breathe. No conversational dyspnea and able to string together many sentences without an issue. CARDIOVASCULAR: regular rate and rhythm, S1 and 2 heard without murmurs, gallops or rubs, no JVD, no peripheral edema GASTROINTESTINAL: soft, nontender, nondistended MUSCULOSKELETAL: physically deconditioned but moves all extremities symmetrically, head is normocephalic and atraumatic SKIN: warm and dry NEUROLOGIC: CN 2-12 grossly intact, no sensory deficit, normal cognition, normal speech, no gross focal deficit. PSYCHIATRIC: alert cooperative and oriented to person, place and time. Results & Data Results & Data ([facility]) Vital Signs (Past 12 Hours) Vital Signs Temp Pulse Pulse Resp BP Pulse Ox Pulse Ox 01/28/20 08:00 36.7 C 104 H 18 139/80 88 L 01/28/20 02:25 90 01/27/20 23:09 37.0 C 97 H 18 153/75 H 90 Laboratory Results Short CBC 01/27/20 01/28/20 Range/Units 17:48 08:29 WBC 17.99 H 16.10 H (4.8-10.8) K/uL Hgb 10.0 L 9.7 L (12.0-16.0) g/dL Hct 32.3 L 31.1 L (37-47) % Plt Count 599 H D 469 H (130-400) K/uL BMP 01/27/20 01/28/20 17:48 08:29 Sodium 141 141 Potassium 5.2 H 4.1 D Chloride 113 H 111 H Carbon Dioxide 25 23 BUN 25 H 21 H Creatinine 1.09 1.03 Glucose 143 H 107 H Calcium 8.1 L 8.8 Liver Function 01/27/20 Range/Units 17:48 Total Bilirubin 0.4 (0.2-1) mg/dl AST 19 (15-37) U/L ALT 35 (12-78) U/L Alkaline Phosphatase 70 (45-117) U/L Albumin 2.7 L (3.4-5.0) gm/dl Diagnostic Findings CT ANGIOGRAM OF THE CHEST CLINICAL HISTORY: worsening hypoxia, known h/o PE, +MF PNA COMPARISON STUDY: 01/23/2020 FINDINGS: There is a subcentimeter left lobe thyroid nodule No pathologically enlarged axillary mediastinal or hilar lymph nodes were visualized. There is plaque/thrombus within the aortic arch, slightly less pronounced than on the preceding study. There are persistent left-sided pulmonary artery filling defects, consistent with subacute or chronic pulmonary embolism. No new filling defects are visualized. There is a small left pleural effusion. There is pulmonary emphysema. There is left lower lobe collapse. There is a persistent 1 cm right lower lobe pulmonary nodule. There are improving lingular airspace opacities. There are improving right lower lobe nodular airspace opacities. There are areas of mucous plugging. There are postsurgical changes of a right mastectomy with an implant. There is a persistent mid to lower thoracic vertebral body compression deformity IMPRESSION: 1. Persistent pulmonary artery filling defects. The findings are consistent with subacute or chronic pulmonary embolism. No new filling defects are visualized 2. Improving thoracic aortic plaque/thrombus 3. Small left pleural effusion 4. Improving right middle and lower lobe nodular airspace opacities. 1 cm right lower lobe pulmonary nodule 5. Dense consolidation of the left lower lobe with volume loss. Improving lingular nodular airspace opacities US venous doppler LE BI HISTORY: Pain. Edema. r/o DVT COMPARISON STUDY: None. FINDINGS: There is normal compressibility, flow, and augmentation within the bilateral lower extremity deep venous systems. IMPRESSION: No DVT within the right or left lower extremity. Medications Administered Current Inpatient Medications Acetaminophen (Tylenol) 650 mg PO Q4H PRN PRN Reason: Pain or Fever Stop: 02/22/20 18:08 Last Admin: 01/28/20 08:43 Dose: 650 mg Documented by: Al Hydrox/Mg Hydrox/Simethicone (Maalox) 15 ml PO Q4H PRN PRN Reason: Dyspepsia Stop: 02/22/20 18:08 Albuterol (Duoneb) 3 ml NEB QIDR SHORTY Stop: 02/22/20 18:08 Last Admin: 01/28/20 07:10 Dose: Not Given Documented by: Albuterol (Ventolin Hfa) 2 puffs INH Q6H PRN PRN Reason: SOB/wheezing Stop: 02/26/20 09:29 Amitriptyline HCl (Elavil) 75 mg PO [facility] Stop: 02/22/20 20:59 Last Admin: 01/27/20 20:29 Dose: 75 mg Documented by: Benzonatate (Tessalon Perle) 100 mg PO TID PRN PRN Reason: Cough Stop: 02/25/20 21:28 Last Admin: 01/26/20 23:16 Dose: 100 mg Documented by: Enoxaparin Sodium (Lovenox) 30 mg SQ QAM [facility] Stop: 02/23/20 08:59 Last Admin: 01/28/20 08:32 Dose: 30 mg Documented by: Fluticasone/Vilanterol (Breo Ellipta 100/25 Mcg Inh) 1 puffs INH QAM [facility] Stop: 02/23/20 08:59 Last Admin: 01/28/20 08:33 Dose: 1 puffs Documented by: Guaifenesin/Codeine Phosphate (Robitussin-Ac Sugar Free) 10 ml PO Q6H PRN PRN Reason: Cough Stop: 02/26/20 13:59 Last Admin: 01/28/20 08:44 Dose: 10 ml Documented by: Hydroxyurea (Hydrea) 500 mg PO [facility] Stop: 02/22/20 20:59 Last Admin: 01/27/20 20:29 Dose: 500 mg Documented by: Levofloxacin (Levaquin) 750 mg PO Q48H [facility]ORT[facility]; Protocol Stop: 02/03/20 20:59 Last Admin: 01/27/20 20:29 Dose: 750 mg Documented by: Loperamide HCl (Imodium) 2 mg PO UD PRN PRN Reason: Diarrhea Stop: 02/27/20 09:58 Magnesium Hydroxide (Milk Of Magnesia) 30 ml PO Q12H PRN PRN Reason: Constipation Stop: 02/22/20 18:08 Magnesium Oxide (Mag-Ox) 400 mg PO QPM [facility] Stop: 02/22/20 20:59 Last Admin: 01/27/20 20:30 Dose: 400 mg Documented by: Miscellaneous (Remove Nicoderm Patch) 1 ea N/A DAILY@0859 [facility] Stop: 02/27/20 08:58 Last Admin: 01/28/20 08:33 Dose: 1 ea Documented by: Nicotine (Nicoderm Cq) 21 mg TD QAM [facility] Stop: 02/26/20 17:29 Last Admin: 01/28/20 08:33 Dose: 21 mg Documented by: Ondansetron HCl (Zofran) 4 mg IV Q6H PRN PRN Reason: Nausea Stop: 02/22/20 18:08 Last Admin: 01/28/20 08:43 Dose: 4 mg Documented by: Pantoprazole Sodium (Protonix) 40 mg PO BID [facility] Stop: 02/22/20 20:59 Last Admin: 01/28/20 08:32 Dose: 40 mg Documented by: Polyethylene Glycol (Miralax Powder Packet) 17 gm PO DAILY PRN PRN Reason: Constipation Stop: 02/22/20 18:08 Pregabalin (Lyrica) 75 mg PO BID [facility] Stop: 02/22/20 20:59 Last Admin: 01/28/20 08:36 Dose: 75 mg Documented by: Temazepam (Restoril) 30 mg PO HS PRN PRN Reason: Sleep Stop: 02/22/20 18:08 Last Admin: 01/27/20 20:28 Dose: 30 mg Documented by: Tramadol HCl (Ultram) 50 - 100 mg PO Q6H PRN PRN Reason: pain or headache Stop: 02/22/20 18:08 Last Admin: 01/28/20 08:43 Dose: 50 mg Documented by: Trazodone HCl (Desyrel) 50 mg PO HS [facility] Stop: 02/22/20 20:59 Last Admin: 01/27/20 20:27 Dose: 50 mg Documented by: Umeclidinium [place] (Incruse Ellipta) 1 puffs INH QAM [facility] Stop: 02/23/20 08:59 Last Admin: 01/28/20 08:33 Dose: 1 puffs Documented by: (1) Closed fracture of inferior pubic ramus Encounter type: initial encounter Laterality: left Qualified Code(s): S32.592A - Other specified fracture of left pubis, initial encounter for closed fracture (2) Pneumonia Laterality: left Lung location: lower lobe of lung Pneumonia type: due to unspecified organism Qualified Code(s): J18.9 - Pneumonia, unspecified organism
[2020-01-28] MEDS ORDERED: OPTIRAY 320 125ml IV PRN (10:55)
--- NOTE | 2020-01-28 11:22 | Ultrasound Report ---
US venous doppler LE BI HISTORY: Pain. Edema. r/o DVT COMPARISON STUDY: None. FINDINGS: There is normal compressibility, flow, and augmentation within the bilateral lower extremit y deep venous systems. IMPRESSION: No DVT within the right or left lower extremity. ACT 112: Negative or not required by law. The above report was generated using voice recognition software. It may contain grammatical, syntax or spelling errors. Electronically signed by: Bandar Negro M.D. 01/28/2020 11:21 AM
--- NOTE | 2020-01-28 11:28 | CT Scan Report ---
CT ANGIOGRAM OF THE CHEST CLINICAL HISTORY: worsening hypoxia, known h/o PE, +MF PNA COMPARISON STUDY: 01/23/2020 TECHNIQUE: Following the IV administration of 119 mL of Optiray-320, CT angiogram of the thorax was p erformed from the thoracic inlet to the lung bases utilizing the pulmonary embolus protocol. Images a re reviewed in the axial, sagittal, and coronal planes. IV contrast was administered without complica tion. MIP imaging was performed. A dose lowering technique was utilized adhering to the principles o f ALARA. CT DOSE: FINDINGS: There is a subcentimeter left lobe thyroid nodule No pathologically enlarged axillary mediastinal or hilar lymph nodes were visualized. There is plaque/thrombus within the aortic arch, slightly less pronounced than on the preceding study . There are persistent left-sided pulmonary artery filling defects, consistent with subacute or chronic pulmonary embolism. No new filling defects are visualized. There is a small left pleural effusion. There is pulmonary emphysema. There is left lower lobe collapse. There is a persistent 1 cm right low er lobe pulmonary nodule. There are improving lingular airspace opacities. There are improving right lower lobe nodular airspace opacities. There are areas of mucous plugging. There are postsurgical changes of a right mastectomy with an implant. There is a persistent mid to lower thoracic vertebral body compression deformity IMPRESSION: 1. Persistent pulmonary artery filling defects. The findings are consistent with subacute or chronic pulmonary embolism. No new filling defects are visualized 2. Improving thoracic aortic plaque/thrombus 3. Small left pleural effusion 4. Improving right middle and lower lobe nodular airspace opacities. 1 cm right lower lobe pulmonary nodule 5. Dense consolidation of the left lower lobe with volume loss. Improving lingular nodular airspace o pacities ACT 112: Negative or not required by law. Electronically signed by: Sher Lira M.D. 01/28/2020 11:26 AM
[2020-01-28] MEDS: LOPERAMIDE HCL 2 MG CAP PO PRN ×3 (14:16→20:57)
[2020-01-28] MEDS: MAGNESIUM OXIDE 400 MG TAB PO SCH (20:55)
[2020-01-28] MEDS: TEMAZEPAM 15 MG CAPSULE PO PRN (20:55)
[2020-01-28] MEDS: HYDROXYUREA 500 MG CAP PO SCH (20:55)
[2020-01-28] MEDS: TRAZODONE HCL 50 MG TAB PO SCH (20:55)
[2020-01-28] MEDS: AMITRIPTYLINE HCL 25 MG TAB PO SCH (20:56)
[2020-01-29] MEDS: LOPERAMIDE HCL 2 MG CAP PO PRN ×2 (00:21→10:12)
[2020-01-29] MEDS: GUAIFENESIN/CODEINE 200MG/20MG 10ML UDC PO PRN (00:38)
[2020-01-29] MEDS ORDERED: LOPERAMIDE HCL 2 MG CAP PO STA (04:55)
[2020-01-29] MEDS: ALBUT/IPRATROP 3MG/0.5MG NEB 3 ML VIAL NEB SCH ×4 (06:51→19:35)
[2020-01-29 07:51] LABS: Est GFR (African American) 64.5; Est GFR (Non-African American) 55.6
[2020-01-29] MEDS: PREGABALIN 75 MG CAP PO SCH ×2 (08:34→20:01)
[2020-01-29] MEDS: ENOXAPARIN INJ 30 MG/0.3 ML SYR SQ SCH (08:34)
[2020-01-29] MEDS: UMECLIDINIUM BROMIDE 62.5MCG/BLISTER 7 PUFFS/INHALER INH SCH (08:35)
[2020-01-29] MEDS: FLUTICASONE/VILANTEROL 100/25MCG 14 PUFFS/INHALER INH SCH (08:35)
[2020-01-29] MEDS: NICOTINE 21 MG/24 HR TDSY TD SCH (08:36)
[2020-01-29] MEDS: PANTOprazole 40 MG TAB PO SCH ×2 (08:47→20:01)
[2020-01-29] MEDS: TRAMADOL HCL 50 MG TABLET PO PRN ×2 (10:11→16:12)
[2020-01-29] MEDS: ONDANSETRON INJ 2 MG/ML 2 ML VIAL IV PRN (10:15)
[2020-01-29] MEDS: SODIUM CHLORIDE 0.9% 1000ML 1,000 ML IV SCH ×2 (11:20→19:00)
--- NOTE | 2020-01-29 19:52 | Hospitalist Progress Note ---
Date of Service January 29, 2020 Assessment & Plan (1) Diarrhea: Pt reports multiple loose stools overnight after receiving the contrast yesterday. Neg c-diff and no other infection at this time. Will need to check H pylori status. Cont supportive care with IVF. (2) Vapes nicotine containing substance: Strongly encouraged to quit, contemplative phase. Cont nicotine patch at discharge. (3) Acute and chronic respiratory failure with hypoxia: resolved, Multifocal pneumonia and mucous plugging status post bronchoscopy. Hypoxia persists; cont supplemental oxygen. Plan for two step in am prior to discharge. Cont Levaquin. Bronch results were unremarkable. Continue pulmonary toilet. Completed short course of steroids. Flutter valve and ambulation encouraged. (4) Pneumonia: cont plan as above. (5) COPD exacerbation: Completed abx and a short course of prednisone. Cont home inhalers and make duonebs PRN (6) Sepsis: Resuscitated. Continue plan for treatment of pneumonia as above. (7) Duodenal ulcer: Diagnosed 12/18/2019 via EGD with melena and symptomatic anemia. She remains on a PPI twice daily. H/H stable after requiring one unit of blood to be given this admission. Will plan to have GI follow-up as outpatient. PCP to start AC as outpatient. Discussed the situation with PCP. (8) Anemia: Multifactorial including acute GI blood loss related to his known peptic u lcer disease in addition to chronic medical issues. Improved. (9) Myelodysplastic syndrome: Also known to have a JAK2 mutation per records making her high risk for thrombosis with her age. She is followed by Dr. Chavez ([facility]) who has her on anagrelide and hydroxyurea. She has not been able to take the anagrelide, however, since Jul due to a medication shortage. Noted chronic appearing thromboembolic disease on CT chest and partial thrombus present in thoracic aorta. Continues on Lovenox for DVT prophylaxis and home hydroxyurea. 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 However, at this time so close to her GI bleed with anemia, will hold off on this until GI clears her. Close outpatient Hematology follow-up recommended. (10) Closed fracture of inferior pubic ramus: Diagnosed with acute left inferior pubic ramus fracture during recent admission 12/16 to 12/30/19 secondary to fall/syncope She refused inpatient rehab and has been receiving outpatient therapy services Consult PT/OT and respiratory status improved (11) Essential thrombocythemia: hydroxyurea, plan as above. (12) Insomnia: On temazepam, trazodone, amitriptyline at bedtime per home regimen. (13) DVT prophylaxis: Lovenox Full Code Dispo-likely DC to home in am. Desiree Cason [facility] and Anticipated Discharge Date Admission Date: January 23, 2020 Subjective diarrhea overnight and this morning as a reaction to the IV contrast she received yesterday imodium helped somewhat, and she would also like to try Benadryl Denies abdominal pain No fevers or chills, and she is breathing better today Review of Systems Review of Systems: All systems reviewed & are unremarkable except as noted in Subjective Physical Exam Physical Exam: CONSTITUTIONAL: thin, vitals as above, generally well-appearing EYES: no scleral icterus ENT: external ear and nose normal NECK: trachea midline RESPIRATORY: clear to auscultation throughout. Normal respiratory effort. She is not working to breathe. No conversational dyspnea and able to string together many sentences without an issue. CARDIOVASCULAR: regular rate and rhythm, S1 and 2 heard without murmurs, gallops or rubs, no JVD, no peripheral edema GASTROINTESTINAL: soft, nontender, nondistended MUSCULOSKELETAL: 5/5 throughout, head is normocephalic and atraumatic SKIN: warm and dry NEUROLOGIC: CN 2-12 grossly intact, no sensory deficit, normal cognition, normal speech, no gross focal deficit. PSYCHIATRIC: alert cooperative and oriented to person, place and time. Results & Data Results & Data ([facility]) Vital Signs (Past 12 Hours) Vital Signs Temp Pulse Resp BP Pulse Ox 01/29/20 19:36 91 H 18 94 01/29/20 15:37 37.1 C 91 H 18 148/69 H 93 01/29/20 15:03 98 H 22 92 01/29/20 11:37 90 18 94 01/29/20 07:54 36.8 C 94 H 18 166/73 H 92 Laboratory Results BMP 01/29/20 06:53 Creatinine 0.98 Medications Administered Current Inpatient Medications Acetaminophen (Tylenol) 650 mg PO Q4H PRN PRN Reason: Pain or Fever Stop: 02/22/20 18:08 Last Admin: 01/28/20 12:18 Dose: 650 mg Documented by: Al Hydrox/Mg Hydrox/Simethicone (Maalox) 15 ml PO Q4H PRN PRN Reason: Dyspepsia Stop: 02/22/20 18:08 Albuterol (Duoneb) 3 ml NEB QIDR [facility] Stop: 02/22/20 18:08 Last Admin: 01/29/20 19:35 Dose: 3 ml Documented by: Albuterol (Ventolin Hfa) 2 puffs INH Q6H PRN PRN Reason: SOB/wheezing Stop: 02/26/20 09:29 Amitriptyline HCl (Elavil) 75 mg PO [facility] Stop: 02/22/20 20:59 Last Admin: 01/28/20 20:56 Dose: 75 mg Documented by: Benzonatate (Tessalon Perle) 100 mg PO TID PRN PRN Reason: Cough Stop: 02/25/20 21:28 Last Admin: 01/26/20 23:16 Dose: 100 mg Documented by: Diphenhydramine HCl (Benadryl Capsule) 25 mg PO Q8H PRN PRN Reason: diarrhea, itching Stop: 02/28/20 11:00 Last Admin: 01/29/20 12:09 Dose: 25 mg Documented by: Enoxaparin Sodium (Lovenox) 30 mg SQ QAM [facility] Stop: 02/23/20 08:59 Last Admin: 01/29/20 08:34 Dose: 30 mg Documented by: Fluticasone/Vilanterol (Breo Ellipta 100/25 Mcg Inh) 1 puffs INH QAM [facility] Stop: 02/23/20 08:59 Last Admin: 01/29/20 08:35 Dose: 1 puffs Documented by: Guaifenesin/Codeine Phosphate (Robitussin-Ac Sugar Free) 10 ml PO Q6H PRN PRN Reason: Cough Stop: 02/26/20 13:59 Last Admin: 01/29/20 00:38 Dose: 10 ml Documented by: Hydroxyurea (Hydrea) 500 mg PO [facility] Stop: 02/22/20 20:59 Last Admin: 01/28/20 20:55 Dose: 500 mg Documented by: Sodium Chloride (Nss 1000ml) 1,000 mls @ 125 mls/hr IV .Q8H SHORTY Stop: 01/30/20 03:14 Last Admin: 01/29/20 19:00 Dose: 125 mls/hr Documented by: Ioversol (Optiray 320 125ml) 119 ml IV ONCE PRN PRN Reason: Interaction Checking Stop: 02/01/20 10:54 Last Admin: 01/28/20 10:56 Dose: 119 ml Documented by: Levofloxacin (Levaquin) 750 mg PO Q48H [facility]; Protocol Stop: 02/03/20 20:59 Last Admin: 01/27/20 20:29 Dose: 750 mg Documented by: Loperamide HCl (Imodium) 2 mg PO UD PRN PRN Reason: Diarrhea Stop: 02/27/20 09:58 Last Admin: 01/29/20 10:12 Dose: 2 mg Documented by: Magnesium Hydroxide (Milk Of Magnesia) 30 ml PO Q12H PRN PRN Reason: Constipation Stop: 02/22/20 18:08 Magnesium Oxide (Mag-Ox) 400 mg PO QPM [facility] Stop: 02/22/20 20:59 Last Admin: 01/28/20 20:55 Dose: 400 mg Documented by: Miscellaneous (Remove Nicoderm Patch) 1 ea N/A DAILY@0859 [facility] Stop: 02/27/20 08:58 Last Admin: 01/29/20 08:35 Dose: 1 ea Documented by: Nicotine (Nicoderm Cq) 21 mg TD QAM [facility] Stop: 02/26/20 17:29 Last Admin: 01/29/20 08:36 Dose: 21 mg Documented by: Ondansetron HCl (Zofran) 4 mg IV Q6H PRN PRN Reason: Nausea Stop: 02/22/20 18:08 Last Admin: 01/29/20 10:15 Dose: 4 mg Documented by: Pantoprazole Sodium (Protonix) 40 mg PO BID [facility] Stop: 02/22/20 20:59 Last Admin: 01/29/20 08:47 Dose: 40 mg Documented by: Polyethylene Glycol (Miralax Powder Packet) 17 gm PO DAILY PRN PRN Reason: Constipation Stop: 02/22/20 18:08 Pregabalin (Lyrica) 75 mg PO BID [facility] Stop: 02/22/20 20:59 Last Admin: 01/29/20 08:34 Dose: 75 mg Documented by: Temazepam (Restoril) 30 mg PO HS PRN PRN Reason: Sleep Stop: 02/22/20 18:08 Last Admin: 01/28/20 20:55 Dose: 30 mg Documented by: Tramadol HCl (Ultram) 50 - 100 mg PO Q6H PRN PRN Reason: pain or headache Stop: 02/22/20 18:08 Last Admin: 01/29/20 16:12 Dose: 100 mg Documented by: Trazodone HCl (Desyrel) 50 mg PO HS [facility] Stop: 02/22/20 20:59 Last Admin: 01/28/20 20:55 Dose: 50 mg Documented by: Umeclidinium [place] (Incruse Ellipta) 1 puffs INH QAM [facility] Stop: 02/23/20 08:59 Last Admin: 01/29/20 08:35 Dose: 1 puffs Documented by: (1) Closed fracture of inferior pubic ramus Encounter type: initial encounter Laterality: left Qualified Code(s): S32.592A - Other specified fracture of left pubis, initial encounter for closed fracture (2) Pneumonia Laterality: left Lung location: lower lobe of lung Pneumonia type: due to unspecified organism Qualified Code(s): J18.9 - Pneumonia, unspecified organism
[2020-01-29] MEDS: MAGNESIUM OXIDE 400 MG TAB PO SCH (20:01)
[2020-01-29] MEDS: TEMAZEPAM 15 MG CAPSULE PO PRN (20:01)
[2020-01-29] MEDS: AMITRIPTYLINE HCL 25 MG TAB PO SCH (20:01)
[2020-01-29] MEDS: HYDROXYUREA 500 MG CAP PO SCH (20:01)
[2020-01-29] MEDS: levoFLOXacin 750 MG TAB PO SCH (20:01)
[2020-01-29] MEDS: TRAZODONE HCL 50 MG TAB PO SCH (20:05)
[2020-01-29] MEDS ORDERED: ALBUT/IPRATROP 3MG/0.5MG NEB 3 ML VIAL NEB PRN (23:59)
[2020-01-30] MEDS: ONDANSETRON INJ 2 MG/ML 2 ML VIAL IV PRN ×2 (03:05→17:52)
[2020-01-30] MEDS: TRAMADOL HCL 50 MG TABLET PO PRN ×3 (03:05→19:17)
[2020-01-30 06:43] LABS: Hematocrit (blood only) 26.8 % (37-47); Hemoglobin 8.2 g/dL (12.0-16.0); Mean Corpuscular Hemoglobin 30.1 pg (25-34); Mean Corpuscular Hgb Conc 30.6 g/dL (32-36); Mean Corpuscular Volume 98.5 fL (80-100); Mean Platelet Volume 11.8 fL (7.4-10.4); Nucleated RBC # (auto) 0.06 K/uL (0-0); Nucleated RBC % (auto) 0.3 %; Platelet Count 406 K/uL (130-400); RDW Coefficient of Variation 27.4 % (11.5-14.5); Red Blood Count 2.72 M/uL (4.2-5.4); White Blood Count 20.82 K/uL (4.8-10.8)
[2020-01-30 07:19] LABS: BUN Creatinine Ratio 13.7 (10-20); Calcium 7.7 mg/dl (8.5-10.1); Est GFR (African American) 64.5; Est GFR (Non-African American) 55.6; Magnesium 1.9 mg/dl (1.8-2.4); Potassium 4.3 mmol/L (3.5-5.1)
[2020-01-30] MEDS: PANTOprazole 40 MG TAB PO SCH ×2 (08:50→20:51)
[2020-01-30] MEDS: UMECLIDINIUM BROMIDE 62.5MCG/BLISTER 7 PUFFS/INHALER INH SCH (08:51)
[2020-01-30] MEDS: ENOXAPARIN INJ 30 MG/0.3 ML SYR SQ SCH (08:51)
[2020-01-30] MEDS: FLUTICASONE/VILANTEROL 100/25MCG 14 PUFFS/INHALER INH SCH (08:51)
[2020-01-30] MEDS: NICOTINE 21 MG/24 HR TDSY TD SCH (08:51)
[2020-01-30] MEDS: PREGABALIN 75 MG CAP PO SCH ×2 (08:53→20:51)
--- NOTE | 2020-01-30 11:34 | Hospitalist Progress Note ---
Date of Service January 30, 2020 Assessment & Plan (1) Severe sepsis: Met criteria for severe sepsis per current [facility] definition- tachycardia, tachypnea, leukocytosis, lactate > 2. Source = pneumonia as discussed below. (2) Pneumonia: Chest x-ray at time of admission demonstrated LLE density. CT chest demonstrated opacification of left lower lobe bronchus with consolidation of LLL; patchy airspace opacities were also seen within the DEVEN and RLL. Critical Care Medicine consulted. Bronchoscopy revealed mucus plugging LLL bronchus. Cultures negative except for Sydney on bronch washings (probable contamination). Currently receiving levofloxacin. (3) Mucoid impaction of bronchi: S/P bronchoscopy. Continue pulmonary toilet. (4) Pulmonary nodules: CTA chest 01/23/20 revealed several small pulmonary nodules (5 mm RML, 3 mm RML, 3 mm DEVEN, 4 mm RUL- all stable compared to 12/21/19). CTA chest 01/28/20 demonstrated 1 cm nodule RLL. Smoking history; also has history of breast Ca. Follow-up per guidelines. (5) Pulmonary emboli: D-dimer elevated (1080). CTA chest 01/23/20 demonstrated multiple chronic / subacute pulmonary emboli; repeat CTA 01/27 unchanged. Venous duplex lower extremities 01/28/20 negative for DVT. Probably underlying hypercoagulability (MDS, thrombocytosis). Anticoagulation indicated, but not yet initiated due to recent GI bleed from duodenal ulcer. (6) COPD exacerbation: Secondary to pneumonia. Bronchodilators PRN. (7) Acute respiratory failure with hypoxia: Hypoxia, multifactorial- pneumonia, COPD, pulmonary emboli. Continue supplemental O2, wean as able. 2-step pulse oximetry prior to discharge. (8) Diarrhea: Pt attributes diarrhea to CT contrast. Stool negative for C diff gene by PCR. Stool cultures negative so far. (9) Leukocytosis: WBC up to 20,000. Procalcitonin 1.05. Pneumonia seems to be clinically improved. Diarrhea as discussed above. No urinary symptoms. Check chest x-ray and abdominal films. Continue levofloxacin. Follow. (10) Duodenal ulcer: UGI bleed in December. EGD demonstrated duodenal ulcer. Continue PPI. (11) Acute kidney injury superimposed on chronic kidney disease: History of CKD III with baseline creatinine 0.7 - 0.9. Creatinine at time of admission was 1.27. Acute kidney injury secondary to sepsis. Creatinine today = 0.98. (12) Myelodysplastic syndrome: Continue hydroxyurea. (13) Anemia: Secondary to MDS + recent UGI bleed. Hgb 9.9 at time of admission and fell to 6.8 on 01/23. Suspect hemodilution secondary to IV fluids. No gross GI bleeding at that time. Received 1 unit pRBC's. Hgb today = 8.2. Follow. (14) Vapes nicotine containing substance: Cessation advised. (15) DVT prophylaxis: No anticoagulants at this time due to recent UGI bleed. SCD's and TEDS ordered- patient refused. Ambulate. (16) Discharge planning issues: Anticipated discharge to home where she lives with her daughter. Internal Medicine follow-up with Dr. Valerie Chavez. Hematology / Oncology follow-up with Dr. Mainor Chavez. Admission and Anticipated Discharge Date Admission Date: January 23, 2020 Subjective Recheck for pneumonia and other problems. Patient seen in their room around 1020. Tired. No fever. Sweats 2 nights ago. Cough productive of mucus, sometimes clear, sometimes yellow. Chest pain with coughing. No anginal symptoms. Having loose stools which pt attributes to CT contrast. No melena or hematochezia. Diffuse abdominal discomfort. No dysuria. Review of Systems: As noted above. Physical Exam Constitutional: no acute distress Eyes: + anicteric sclerae Respiratory: no respiratory distress Auscultation: + rhonchi (few) Cardiovascular: Rate/Rhythm: regular rate and regular rhythm Heart Sounds: no gallop, no murmur and no cardiac rub Vessels: no JVD Extremities: no calf tenderness and no edema Gastrointestinal (Abdomen): Inspection/Auscultation: abdomen not distended and + abnormal bowel sounds (quiet) Percussion/Palpation: + abdomen tender (diffuse, more severe in LUQ) and abdomen soft Musculoskeletal: Extremities: no cyanosis Skin: no rashes, warm and dry Psychiatric: Orientation: alert Results & Data Results & Data ([facility]) Vital Signs (Past 12 Hours) Vital Signs Temp Pulse Resp BP Pulse Ox 01/30/20 07:18 37.1 C 98 H 16 113/57 L 90 Laboratory Results Laboratory Results - last 24 hr 01/30/20 01/30/20 01/30/20 06:17 06:17 08:12 WBC 20.82 H RBC 2.72 L Hgb 8.2 L Hct 26.8 L MCV 98.5 MCH 30.1 MCHC 30.6 L RDW Std Deviation 95.0 H RDW Coeff of Radha 27.4 H Plt Count 406 H MPV 11.8 H Absolute Nucleated RBC 0.06 H Nucleated RBC % (auto) 0.3 Sodium 140 Potassium 4.3 Chloride 111 H Carbon Dioxide 25 Anion Gap 4.0 BUN 13 Creatinine 0.98 Est Cr Clr Drug Dosing 38.0 Est GFR ( Amer) 64.5 Est GFR (Non-Af Amer) 55.6 BUN/Creatinine Ratio 13.7 Glucose 79 Calcium 7.7 L Magnesium 1.9 Procalcitonin 1.05 H Stool H. pylori Ag 01/30/20 Unknown WBC RBC Hgb Hct MCV MCH MCHC RDW Std Deviation RDW Coeff of Radha Plt Count MPV Absolute Nucleated RBC Nucleated RBC % (auto) Sodium Potassium Chloride Carbon Dioxide Anion Gap BUN Creatinine Est Cr Clr Drug Dosing Est GFR ( Amer) Est GFR (Non-Af Amer) BUN/Creatinine Ratio Glucose Calcium Magnesium Procalcitonin Stool H. pylori Ag Pending Microbiology 01/28/20 13:10 Stool WBC Smear - Final 01/28/20 13:10 Stool Escherichia coli Shiga Toxins Test - Preliminary 01/28/20 13:10 Stool Stool Culture - Preliminary No Salmonella isolated to date, No Shigella isolated to date, No Campylobacter jejuni isolated to date. 01/23/20 08:50 Blood Aerobic Blood Culture - Final No growth in Aerobic bottle after 5 days. 01/23/20 08:50 Blood Anaerobic Blood Culture - Final No growth in Anaerobic bottle after 5 days. 01/23/20 08:51 Blood Aerobic Blood Culture - Final No growth in Aerobic bottle after 5 days. 01/23/20 08:51 Blood Anaerobic Blood Culture - Final No growth in Anaerobic bottle after 5 days. 01/24/20 05:10 Urine,Clean Catch Urine Culture - Final No growth - less than 1,000 colonies/mL. 01/23/20 19:51 Bronch Wash,Left Lower Lobe Fungal Smear - Final 01/23/20 19:51 Bronch Wash,Left Lower Lobe Fungal Culture - Preliminary Sydney albicans 01/23/20 19:51 Bronch Wash,Left Lower Lobe Gram Stain - Final 01/23/20 19:51 Bronch Wash,Left Lower Lobe Bronchoalveolar Lavage Culture - Final Moderate normal greta. 01/23/20 19:51 Bronch Wash,Left Lower Lobe Acid Fast Bacilli Smear - Final (1) Pneumonia Laterality: left Lung location: lower lobe of lung Pneumonia type: due to unspecified organism Qualified Code(s): J18.9 - Pneumonia, unspecified organism (2) 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
--- NOTE | 2020-01-30 11:58 | XRay Report ---
XR chest 2V PA/lateral CLINICAL HISTORY: leukocytosis, pneumonia, abdominal pain pain COMPARISON STUDY: 01/27/2020 FINDINGS: Persistent consolidative infiltrate left lung base. Aeration left lower lobe is mildly impr stewart. Lungs otherwise appear clear. Postoperative changes right axilla are unaltered unchanged. IMPRESSION: Slight improvement in aeration left lower lobe. Persistent consolidative infiltrate fabián pheral aspect left base. ACT 112: Negative or not required by law. The above report was generated using voice recognition software. It may contain grammatical, syntax or spelling errors. Electronically signed by: Bandar Negro M.D. 01/30/2020 11:57 AM
--- NOTE | 2020-01-30 12:05 | XRay Report ---
XR abdomen min 2V CLINICAL HISTORY: leukocytosis, pneumonia, abdominal pain pain COMPARISON STUDY: No previous studies for comparison. FINDINGS: The soft tissues, psoas shadows, renal outlines and intestinal gas pattern appear normal. T here is no evidence for bowel obstruction. There is no evidence for free intraperitoneal air. No abno rmal abdominal calcifications are seen. Prior left hip arthroplasty. IMPRESSION: No acute process. Degenerative and postoperative change. ACT 112: Negative or not required by law. The above report was generated using voice recognition software. It may contain grammatical, syntax or spelling errors. Electronically signed by: Bandar Negro M.D. 01/30/2020 12:03 PM
[2020-01-30] MEDS: NYSTATIN SUSP 500,000 U/5 ML UDC PO SCH ×3 (13:46→20:51)
[2020-01-30] MEDS: TRAZODONE HCL 50 MG TAB PO SCH (20:51)
[2020-01-30] MEDS: TEMAZEPAM 15 MG CAPSULE PO PRN (20:51)
[2020-01-30] MEDS: HYDROXYUREA 500 MG CAP PO SCH (20:51)
[2020-01-30] MEDS: AMITRIPTYLINE HCL 25 MG TAB PO SCH (20:51)
[2020-01-30] MEDS: MAGNESIUM OXIDE 400 MG TAB PO SCH (20:51)
[2020-01-31] MEDS: TRAMADOL HCL 50 MG TABLET PO PRN ×3 (07:51→21:42)
[2020-01-31 08:47] LABS: Basophils # (auto) 0.03 K/uL (0-0.2); Basophils % (auto) 0.2 %; Eosinophils # (auto) 0.39 K/uL (0-0.5); Eosinophils % (auto) 2.2 %; Hematocrit (blood only) 27.1 % (37-47); Hemoglobin 8.4 g/dL (12.0-16.0); Immature Granulocytes # (auto) 0.66 K/uL (0.00-0.02); Immature Granulocytes % (auto) 3.8 %; Lymphocytes # (auto) 1.21 K/uL (1.2-3.4); Lymphocytes % (auto) 6.9 %; Mean Corpuscular Hemoglobin 30.4 pg (25-34); Mean Corpuscular Volume 98.2 fL (80-100); Mean Platelet Volume 11.8 fL (7.4-10.4); Monocytes # (auto) 1.34 K/uL (0.11-0.59); Monocytes % (auto) 7.7 %; Neutrophils # (auto) 13.82 K/uL (1.4-6.5); Neutrophils % (auto) 79.2 %; Nucleated RBC # (auto) 0.05 K/uL (0-0); Nucleated RBC % (auto) 0.3 %; Platelet Count 393 K/uL (130-400); RDW Coefficient of Variation 27.5 % (11.5-14.5); RDW Standard Deviation 93.1 fL (36.4-46.3); Red Blood Count 2.76 M/uL (4.2-5.4); White Blood Count 17.45 K/uL (4.8-10.8)
[2020-01-31 09:11] LABS: Anisocytosis Present; Basophilic Stippling 2+
[2020-01-31] MEDS: UMECLIDINIUM BROMIDE 62.5MCG/BLISTER 7 PUFFS/INHALER INH SCH (09:12)
[2020-01-31] MEDS: FLUTICASONE/VILANTEROL 100/25MCG 14 PUFFS/INHALER INH SCH (09:12)
[2020-01-31] MEDS: ENOXAPARIN INJ 30 MG/0.3 ML SYR SQ SCH (09:12)
[2020-01-31] MEDS: NICOTINE 21 MG/24 HR TDSY TD SCH (09:13)
[2020-01-31] MEDS: PANTOprazole 40 MG TAB PO SCH ×2 (09:13→20:44)
[2020-01-31] MEDS: NYSTATIN SUSP 500,000 U/5 ML UDC PO SCH ×4 (09:14→20:45)
[2020-01-31 09:17] LABS: BUN Creatinine Ratio 12.7 (10-20); Calcium 7.7 mg/dl (8.5-10.1); Creatinine Clr Calc Pharmacy 40.1 ml/min; Est GFR (African American) 68.7; Est GFR (Non-African American) 59.3; Potassium 4.4 mmol/L (3.5-5.1)
[2020-01-31] MEDS: PREGABALIN 75 MG CAP PO SCH ×2 (09:23→20:44)
[2020-01-31] MEDS: MAGNESIUM OXIDE 400 MG TAB PO SCH (20:44)
[2020-01-31] MEDS: TEMAZEPAM 15 MG CAPSULE PO PRN (20:44)
[2020-01-31] MEDS: levoFLOXacin 750 MG TAB PO SCH (20:44)
[2020-01-31] MEDS: AMITRIPTYLINE HCL 25 MG TAB PO SCH (20:44)
[2020-01-31] MEDS: TRAZODONE HCL 50 MG TAB PO SCH (20:44)
[2020-01-31] MEDS: HYDROXYUREA 500 MG CAP PO SCH (20:49)
--- NOTE | 2020-01-31 21:16 | Hospitalist Progress Note ---
Date of Service January 31, 2020 Assessment & Plan (1) Severe sepsis: Met criteria for severe sepsis per current [facility] definition- tachycardia, tachypnea, leukocytosis, lactate > 2. Source = pneumonia as discussed below. (2) Pneumonia: Chest x-ray at time of admission demonstrated LLE density. CT chest demonstrated opacification of left lower lobe bronchus with consolidation of LLL; patchy airspace opacities were also seen within the DEVEN and RLL. Critical Care Medicine consulted. Bronchoscopy revealed mucus plugging LLL bronchus. Cultures negative except for Sydney on bronch washings (probable contamination). Chest x-ray 01/29 improved. Continue levofloxacin. (3) Mucoid impaction of bronchi: S/P bronchoscopy. Continue pulmonary toilet. (4) Pulmonary nodules: CTA chest 01/23/20 revealed several small pulmonary nodules (5 mm RML, 3 mm RML, 3 mm DEVEN, 4 mm RUL- all stable compared to 12/21/19). CTA chest 01/28/20 demonstrated 1 cm nodule RLL. Smoking history; also has history of breast Ca. Follow-up per guidelines. (5) Pulmonary emboli: D-dimer elevated (1080). CTA chest 01/23/20 demonstrated multiple chronic / subacute pulmonary emboli; repeat CTA 01/27 unchanged. Venous duplex lower extremities 01/28/20 negative for DVT. Probably underlying hypercoagulability (MDS, thrombocytosis). Anticoagulation indicated, but not yet initiated due to recent GI bleed from duodenal ulcer. Check stool for OB and consider starting anticoagulation if heme negative. (6) COPD exacerbation: Secondary to pneumonia. Bronchodilators PRN. (7) Acute respiratory failure with hypoxia: Hypoxia, multifactorial- pneumonia, COPD, pulmonary emboli. Continue supplemental O2, wean as able. 2-step pulse oximetry prior to discharge. (8) Diarrhea: Pt attributes diarrhea to CT contrast. Stool negative for C diff gene by PCR. Stool culture negative for routine enteric pathogens, but growing many Sydney. Started Rx with nystatin. (9) Leukocytosis: WBC up to 20,000 yesterday. Procalcitonin 1.05. Pneumonia seems to be clinically improved. Diarrhea as discussed above. No urinary symptoms. Chest x-ray yesterday improved. No acute findings on abdominal films. WBC today = 17,450. Continue levofloxacin. Follow. (10) Duodenal ulcer: UGI bleed in December. EGD demonstrated duodenal ulcer. Continue PPI. (11) Acute kidney injury superimposed on chronic kidney disease: History of CKD III with baseline creatinine 0.7 - 0.9. Creatinine at time of admission was 1.27. Acute kidney injury secondary to sepsis. Creatinine today = 0.93. (12) Myelodysplastic syndrome: Continue hydroxyurea. (13) Anemia: Secondary to MDS + recent UGI bleed. Hgb 9.9 at time of admission and fell to 6.8 on 01/23. Suspect hemodilution secondary to IV fluids. No gross GI bleeding at that time. Received 1 unit pRBC's. Hgb today = 8.4. Follow. (14) Vapes nicotine containing substance: Cessation advised. (15) DVT prophylaxis: No anticoagulants at this time due to recent UGI bleed. SCD's and TEDS ordered- patient refused. Ambulate. (16) Discharge planning issues: Anticipated discharge to home where she lives with her daughter. Internal Medicine follow-up with Dr. Valerie Chavez. Hematology / Oncology follow-up with Dr. Mainor Chavez. Admission and Anticipated Discharge Date Admission Date: January 23, 2020 Subjective Recheck for pneumonia and other problems. Patient seen in their room around 1110. Weak. No fever. Occasional cough. No anginal symptoms. Ongoing diarrhea. No melena or hematochezia. No dysuria. Review of Systems: As noted above. Physical Exam Constitutional: no acute distress Eyes: + anicteric sclerae Respiratory: no respiratory distress Auscultation: + rhonchi (few) Cardiovascular: Rate/Rhythm: regular rate and regular rhythm Heart Sounds: no gallop, no murmur and no cardiac rub Vessels: no JVD Extremities: no calf tenderness and no edema Gastrointestinal (Abdomen): Inspection/Auscultation: normal bowel sounds; abdomen not distended Percussion/Palpation: + abdomen tender (diffuse, mild) and abdomen soft Musculoskeletal: Extremities: no cyanosis Skin: no rashes, warm and dry Psychiatric: Orientation: alert Results & Data Results & Data ([facility]) Vital Signs (Past 12 Hours) Vital Signs Temp Pulse Resp BP Pulse Ox 01/31/20 15:28 37.3 C 84 18 131/78 97 Laboratory Results 01/31/20 08:36 01/31/20 08:36 (1) Pneumonia Laterality: left Lung location: lower lobe of lung Pneumonia type: due to unspecified organism Qualified Code(s): J18.9 - Pneumonia, unspecified organism (2) 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
[2020-02-01 07:18] LABS: Hematocrit (blood only) 28.3 % (37-47); Hemoglobin 8.7 g/dL (12.0-16.0); Mean Corpuscular Hemoglobin 30.6 pg (25-34); Mean Corpuscular Hgb Conc 30.7 g/dL (32-36); Mean Corpuscular Volume 99.6 fL (80-100); Nucleated RBC # (auto) 0.05 K/uL (0-0); Nucleated RBC % (auto) 0.4 %; Platelet Count 417 K/uL (130-400); RDW Coefficient of Variation 27.4 % (11.5-14.5); RDW Standard Deviation 95.1 fL (36.4-46.3); Red Blood Count 2.84 M/uL (4.2-5.4); White Blood Count 12.87 K/uL (4.8-10.8)
[2020-02-01 07:36] LABS: BUN Creatinine Ratio 12.7 (10-20); Calcium 8.1 mg/dl (8.5-10.1); Creatinine Clr Calc Pharmacy 37.6 ml/min; Est GFR (African American) 63.7; Potassium 4.6 mmol/L (3.5-5.1)
[2020-02-01] MEDS: FLUTICASONE/VILANTEROL 100/25MCG 14 PUFFS/INHALER INH SCH (09:22)
[2020-02-01] MEDS: UMECLIDINIUM BROMIDE 62.5MCG/BLISTER 7 PUFFS/INHALER INH SCH (09:22)
[2020-02-01] MEDS: ENOXAPARIN INJ 30 MG/0.3 ML SYR SQ SCH (09:23)
[2020-02-01] MEDS: PANTOprazole 40 MG TAB PO SCH ×2 (09:24→20:32)
[2020-02-01] MEDS: NICOTINE 21 MG/24 HR TDSY TD SCH (09:24)
[2020-02-01] MEDS: NYSTATIN SUSP 500,000 U/5 ML UDC PO SCH ×4 (09:24→20:33)
[2020-02-01] MEDS: PREGABALIN 75 MG CAP PO SCH ×2 (09:27→20:32)
--- NOTE | 2020-02-01 11:29 | Hospitalist Progress Note ---
Date of Service February 01, 2020 Assessment & Plan (1) Severe sepsis: Met criteria for severe sepsis per current [facility] definition- tachycardia, tachypnea, leukocytosis, lactate > 2. Source = pneumonia as discussed below. (2) Pneumonia: Chest x-ray at time of admission demonstrated LLE density. CT chest demonstrated opacification of left lower lobe bronchus with consolidation of LLL; patchy airspace opacities were also seen within the DEVEN and RLL. Critical Care Medicine consulted. Bronchoscopy revealed mucus plugging LLL bronchus. Cultures negative except for Sydney on bronch washings (probable contamination). Chest x-ray 01/29 improved. Continue levofloxacin. (3) Mucoid impaction of bronchi: S/P bronchoscopy. Continue pulmonary toilet. (4) Pulmonary nodules: CTA chest 01/23/20 revealed several small pulmonary nodules (5 mm RML, 3 mm RML, 3 mm DEVEN, 4 mm RUL- all stable compared to 12/21/19). CTA chest 01/28/20 demonstrated 1 cm nodule RLL. Smoking history; also has history of breast Ca. Follow-up per guidelines. (5) Pulmonary emboli: D-dimer elevated (1080). CTA chest 01/23/20 demonstrated multiple chronic / subacute pulmonary emboli; repeat CTA 01/27 unchanged. Venous duplex lower extremities 01/28/20 negative for DVT. Probably underlying hypercoagulability (MDS, thrombocytosis). Anticoagulation indicated, but not yet initiated due to recent GI bleed from duodenal ulcer. Check stool for OB and consider starting anticoagulation if heme negative. (6) COPD exacerbation: Secondary to pneumonia. Bronchodilators PRN. (7) Acute respiratory failure with hypoxia: Hypoxia, multifactorial- pneumonia, COPD, pulmonary emboli. Continue supplemental O2, wean as able. 2-step pulse oximetry prior to discharge. (8) Diarrhea: Pt attributes diarrhea to CT contrast. Stool negative for C diff gene by PCR. Stool culture negative for routine enteric pathogens, but growing many Sydney. Started Rx with nystatin. (9) Leukocytosis: WBC up to 20,820 on 01/29. Procalcitonin 1.05. Pneumonia seems to be clinically improved. Diarrhea as discussed above. No urinary symptoms. Chest x-ray 01/29 improved. No acute findings on abdominal films. WBC today = 12,870. Continue levofloxacin. Follow. (10) Duodenal ulcer: UGI bleed in December. EGD demonstrated duodenal ulcer. Continue PPI. (11) Acute kidney injury superimposed on chronic kidney disease: History of CKD III with baseline creatinine 0.7 - 0.9. Creatinine at time of admission was 1.27. Acute kidney injury secondary to sepsis. Creatinine today = 0.99. (12) Myelodysplastic syndrome: Continue hydroxyurea. (13) Anemia: Secondary to MDS + recent UGI bleed. Hgb 9.9 at time of admission and fell to 6.8 on 01/23. Suspect hemodilution secondary to IV fluids. No gross GI bleeding at that time. Received 1 unit pRBC's. Hgb today = 8.7. Follow. (14) Vapes nicotine containing substance: Cessation advised. (15) DVT prophylaxis: No anticoagulants at this time due to recent UGI bleed. SCD's and TEDS ordered- patient refused. Ambulate. (16) Discharge planning issues: Anticipated discharge to home where she lives with her daughter. Internal Medicine follow-up with Dr. Valerie Chavez. Hematology / Oncology follow-up with Dr. Mainor Chavez. Daughter given update this morning by phone. Admission and Anticipated Discharge Date Admission Date: January 23, 2020 Subjective Recheck for pneumonia and other problems. Patient seen in their room around 0950. Feels a little better. No fever or chills. Persistent cough, but better. No anginal symptoms. Ongoing diarrhea. No melena or hematochezia. No dysuria. Spending most of her time in bed. Review of Systems: As noted above. Physical Exam Constitutional: no acute distress Eyes: + anicteric sclerae Respiratory: no respiratory distress Auscultation: + wheezes (mild) Cardiovascular: Rate/Rhythm: regular rate and regular rhythm Heart Sounds: no gallop, no murmur and no cardiac rub Vessels: no JVD Extremities: no calf tenderness and no edema Gastrointestinal (Abdomen): Inspection/Auscultation: normal bowel sounds; abdomen not distended Percussion/Palpation: + abdomen tender (diffuse, mild) and abdomen soft Musculoskeletal: Extremities: no cyanosis Skin: no rashes, warm and dry Psychiatric: Orientation: alert Results & Data Results & Data ([facility]) Vital Signs (Past 12 Hours) Vital Signs Temp Pulse Resp BP Pulse Ox 02/01/20 08:16 36.7 C 80 16 99/65 L 95 Laboratory Results 02/01/20 07:01 02/01/20 07:01 (1) Pneumonia Laterality: left Lung location: lower lobe of lung Pneumonia type: due to unspecified organism Qualified Code(s): J18.9 - Pneumonia, unspecified organism (2) 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
[2020-02-01] MEDS: TRAMADOL HCL 50 MG TABLET PO PRN (16:59)
[2020-02-01] MEDS: LOPERAMIDE HCL 2 MG CAP PO PRN ×2 (18:16→18:37)
[2020-02-01] MEDS: MAGNESIUM OXIDE 400 MG TAB PO SCH (20:32)
[2020-02-01] MEDS: TEMAZEPAM 15 MG CAPSULE PO PRN (20:32)
[2020-02-01] MEDS: HYDROXYUREA 500 MG CAP PO SCH (20:32)
[2020-02-01] MEDS: TRAZODONE HCL 50 MG TAB PO SCH (20:33)
[2020-02-01] MEDS: AMITRIPTYLINE HCL 25 MG TAB PO SCH (20:33)
[2020-02-01] MEDS: ONDANSETRON INJ 2 MG/ML 2 ML VIAL IV PRN (20:34)
[2020-02-02] MEDS: GUAIFENESIN/CODEINE 200MG/20MG 10ML UDC PO PRN (06:25)
[2020-02-02 07:42] LABS: Basophils # (auto) 0.02 K/uL (0-0.2); Basophils % (auto) 0.2 %; Eosinophils # (auto) 0.35 K/uL (0-0.5); Eosinophils % (auto) 2.9 %; Hematocrit (blood only) 26.5 % (37-47); Hemoglobin 8.3 g/dL (12.0-16.0); Immature Granulocytes # (auto) 0.35 K/uL (0.00-0.02); Immature Granulocytes % (auto) 2.9 %; Lymphocytes # (auto) 0.99 K/uL (1.2-3.4); Lymphocytes % (auto) 8.2 %; Mean Corpuscular Hemoglobin 30.7 pg (25-34); Mean Corpuscular Hgb Conc 31.3 g/dL (32-36); Mean Corpuscular Volume 98.1 fL (80-100); Mean Platelet Volume 11.9 fL (7.4-10.4); Monocytes # (auto) 0.59 K/uL (0.11-0.59); Monocytes % (auto) 4.9 %; Neutrophils # (auto) 9.83 K/uL (1.4-6.5); Neutrophils % (auto) 80.9 %; Nucleated RBC # (auto) 0.02 K/uL (0-0); Nucleated RBC % (auto) 0.2 %; Platelet Count 420 K/uL (130-400); RDW Coefficient of Variation 27.6 % (11.5-14.5); RDW Standard Deviation 95.8 fL (36.4-46.3); White Blood Count 12.13 K/uL (4.8-10.8)
[2020-02-02] MEDS: NICOTINE 21 MG/24 HR TDSY TD SCH (07:46)
[2020-02-02] MEDS: UMECLIDINIUM BROMIDE 62.5MCG/BLISTER 7 PUFFS/INHALER INH SCH (07:48)
[2020-02-02] MEDS: NYSTATIN SUSP 500,000 U/5 ML UDC PO SCH ×4 (07:48→20:57)
[2020-02-02] MEDS: PANTOprazole 40 MG TAB PO SCH ×2 (07:48→20:57)
[2020-02-02] MEDS: FLUTICASONE/VILANTEROL 100/25MCG 14 PUFFS/INHALER INH SCH (07:48)
[2020-02-02] MEDS: ENOXAPARIN INJ 30 MG/0.3 ML SYR SQ SCH (07:49)
[2020-02-02] MEDS: PREGABALIN 75 MG CAP PO SCH ×2 (07:53→20:57)
[2020-02-02 08:07] LABS: BUN Creatinine Ratio 12.2 (10-20); Calcium 8.4 mg/dl (8.5-10.1); Creatinine Clr Calc Pharmacy 36.5 ml/min; Est GFR (African American) 61.4; Potassium 4.8 mmol/L (3.5-5.1)
[2020-02-02 08:28] LABS: Anisocytosis Present; Basophilic Stippling 1+
--- NOTE | 2020-02-02 11:18 | Hospitalist Progress Note ---
Date of Service February 02, 2020 Assessment & Plan (1) Severe sepsis: Met criteria for severe sepsis per current [facility] definition- tachycardia, tachypnea, leukocytosis, lactate > 2. Source = pneumonia as discussed below. (2) Pneumonia: Chest x-ray at time of admission demonstrated LLE density. CT chest demonstrated opacification of left lower lobe bronchus with consolidation of LLL; patchy airspace opacities were also seen within the DEVEN and RLL. Critical Care Medicine consulted. Bronchoscopy revealed mucus plugging LLL bronchus. Cultures negative except for Sydney on bronch washings (probable contamination). Chest x-ray 01/29 improved. Continue levofloxacin. (3) Mucoid impaction of bronchi: S/P bronchoscopy. Continue pulmonary toilet. (4) Pulmonary nodules: CTA chest 01/23/20 revealed several small pulmonary nodules (5 mm RML, 3 mm RML, 3 mm DEVEN, 4 mm RUL- all stable compared to 12/21/19). CTA chest 01/28/20 demonstrated 1 cm nodule RLL. Smoking history; also has history of breast Ca. Follow-up per guidelines. (5) Pulmonary emboli: D-dimer elevated (1080). CTA chest 01/23/20 demonstrated multiple chronic / subacute pulmonary emboli; repeat CTA 01/27 unchanged. Venous duplex lower extremities 01/28/20 negative for DVT. Probably underlying hypercoagulability (MDS, thrombocytosis). Anticoagulation indicated, but not yet initiated due to recent GI bleed from duodenal ulcer. Stools heme negative 01/31. Start anticoagulation cautiously with IV unfractionated heparin, low dose, no bolus. If tolerated, convert to DOAC if finances permit. (6) COPD exacerbation: Secondary to pneumonia. Bronchodilators PRN. (7) Acute respiratory failure with hypoxia: Hypoxia, multifactorial- pneumonia, COPD, pulmonary emboli. O2 stats fluctuating in low-high 90's on 2 L NC. Continue supplemental O2, wean as able. 2-step pulse oximetry prior to discharge. (8) Leukocytosis: WBC up to 20,820 on 01/29. Procalcitonin 1.05. Pneumonia seems to be clinically improved. Diarrhea as discussed above. No urinary symptoms. Chest x-ray 01/29 improved. No acute findings on abdominal films. WBC today = 12,130. Continue levofloxacin. Follow. (9) Diarrhea: Pt attributes diarrhea to CT contrast. Stool negative for C diff gene by PCR. Stool culture negative for routine enteric pathogens, but growing many Sydney. Started Rx with nystatin. Having persist loose stools; recheck for C diff. (10) Duodenal ulcer: UGI bleed in December. EGD demonstrated duodenal ulcer. Continue PPI. (11) Abdominal pain: Has been experiencing abdominal pain to varying degrees for some time. Diagnosed with duodenal ulcer 12/22. Had C diff colitis in December with sigmoid colitis demonstrated on CT. Now with epigastric and left-sided tenderness. Plain films of abdomen a few days ago did not show any acute findings. Evaluation of diarrhea as discussed above. Consider pancreatitis- check labs and CT. Consider ischemic bowel- check lactate and CT. Consider perforation of duodenal ulcer- check CT. Patient is intolerant of IV and PO contrast, so best to do CT scans without. (12) Acute kidney injury superimposed on chronic kidney disease: History of CKD III with baseline creatinine 0.7 - 0.9. Creatinine at time of admission was 1.27. Acute kidney injury secondary to sepsis. Creatinine today = 1.02. (13) Myelodysplastic syndrome: Continue hydroxyurea. (14) Anemia: Secondary to MDS + recent UGI bleed. Hgb 9.9 at time of admission and fell to 6.8 on 01/23. Suspect hemodilution secondary to IV fluids. No gross GI bleeding at that time. Received 1 unit pRBC's. Stool heme neg 01/31. Hgb today = 8.3. Follow. (15) Vapes nicotine containing substance: Cessation advised. (16) DVT prophylaxis: No anticoagulants at this time due to recent UGI bleed. SCD's and TEDS ordered- patient refused. Ambulate. (17) Discharge planning issues: Anticipated discharge to home where she lives with her daughter. Internal Medicine follow-up with Dr. Valerie Chavez. Hematology / Oncology follow-up with Dr. Mainor Chavez. Daughter given update yesterday by phone. Admission and Anticipated Discharge Date Admission Date: January 23, 2020 Subjective Recheck for pneumonia and other problems. Patient seen in their room around 0900. Tired. No fever or chills. Cough improved. Less SOB. Oxygenation improved. No anginal symptoms. Ongoing diarrhea. No melena or hematochezia. No dysuria. Staff encouraging ambulation, but pt reluctant. Review of Systems: As noted above. Physical Exam Constitutional: no acute distress Eyes: + anicteric sclerae Respiratory: no respiratory distress Auscultation: + wheezes (mild) Cardiovascular: Rate/Rhythm: regular rate and regular rhythm Heart Sounds: no gallop, no murmur and no cardiac rub Vessels: no JVD Extremities: no calf tenderness and no edema Gastrointestinal (Abdomen): Inspection/Auscultation: normal bowel sounds; abdomen not distended Percussion/Palpation: + abdomen tender (epigastric and left-sided tenderness) and abdomen soft Musculoskeletal: Extremities: no cyanosis Skin: no rashes, warm and dry Psychiatric: Orientation: alert Results & Data Results & Data ([facility]) Vital Signs (Past 12 Hours) Vital Signs Temp Pulse Resp BP Pulse Ox 02/02/20 07:28 37.1 C 91 H 16 97/62 L 98 Laboratory Results Laboratory Results - last 24 hr 02/01/20 02/02/20 02/02/20 Unknown 07:29 07:29 WBC 12.13 H RBC 2.70 L Hgb 8.3 L Hct 26.5 L MCV 98.1 MCH 30.7 MCHC 31.3 L RDW Std Deviation 95.8 H RDW Coeff of Radha 27.6 H Plt Count 420 H MPV 11.9 H Immature Gran % (Auto) 2.9 Neut % (Auto) 80.9 Lymph % (Auto) 8.2 [place] % (Auto) 4.9 Eos % (Auto) 2.9 Baso % (Auto) 0.2 Immature Gran # (Auto) 0.35 H Neut # (Auto) 9.83 H Lymph # (Auto) 0.99 L [place] # (Auto) 0.59 Eos # (Auto) 0.35 Baso # (Auto) 0.02 Absolute Nucleated RBC 0.02 H Nucleated RBC % (auto) 0.2 Basophilic Stippling 1+ Anisocytosis Present Sodium 137 Potassium 4.8 Chloride 105 Carbon Dioxide 28 Anion Gap 3.0 BUN 12 Creatinine 1.02 Est Cr Clr Drug Dosing 36.5 Est GFR ( Amer) 61.4 Est GFR (Non-Af Amer) 53.0 BUN/Creatinine Ratio 12.2 Glucose 86 Calcium 8.4 L Procalcitonin Stool Occult Bld Scrn Negative 02/02/20 07:29 WBC RBC Hgb Hct MCV MCH MCHC RDW Std Deviation RDW Coeff of Radha Plt Count MPV Immature Gran % (Auto) Neut % (Auto) Lymph % (Auto) [place] % (Auto) Eos % (Auto) Baso % (Auto) Immature Gran # (Auto) Neut # (Auto) Lymph # (Auto) [place] # (Auto) Eos # (Auto) Baso # (Auto) Absolute Nucleated RBC Nucleated RBC % (auto) Basophilic Stippling Anisocytosis Sodium Potassium Chloride Carbon Dioxide Anion Gap BUN Creatinine Est Cr Clr Drug Dosing Est GFR ( Amer) Est GFR (Non-Af Amer) BUN/Creatinine Ratio Glucose Calcium Procalcitonin 0.25 Stool Occult Bld Scrn (1) Pneumonia Laterality: left Lung location: lower lobe of lung Pneumonia type: due to unspecified organism Qualified Code(s): J18.9 - Pneumonia, unspecified organism (2) 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
[2020-02-02] MEDS ORDERED: Heparin IV Low Dose *NO* Bolus IV SCH (11:25)
[2020-02-02] MEDS ORDERED: HEPARIN SODIUM/DEXTROSE 25,000 UNITS/500 ML BAG IV SCH (11:30)
--- NOTE | 2020-02-02 12:02 | CT Scan Report ---
CT abd pelvis wo con CT DOSE: 258.23 mGy.cm HISTORY: Pain abdominal pain TECHNIQUE: Multiaxial CT images of the abdomen and pelvis were performed without contrast. A dose lo wering technique was utilized adhering to the principles of ALARA. COMPARISON STUDY: 12/31/2019 FINDINGS: Interval development of bilateral pleural effusions. Left lower lobe consolidative change. Similar but less prominent findings seen involving the right lower lobe. Configuration of liver is unremarkable. Prior cholecystectomy. Interval development of interposed bowel versus subcapsular splenic bleed measuring 10 x 5 cm. The le ft kidney remains negative for hydronephrosis. Generalized nonobstructive ileus. Mild bladder distention. Trace free fluid within the pelvic cul-de- sac. IMPRESSION: 1. Somewhat compromised exam due to the absence of contrast enhancement. 2. Interval development of left and to a lesser extent right pleural effusions combined with basilar lower lobe atelectatic/consolidative change. 3. Interval development of subcapsular collection inferior pole of the spleen measuring 10 x 5 cm. Th is may represent a subcapsular bleed. 4. Unchanged right renal cysts. 6. Generalized nonobstructive ileus. ACT 112: Negative or not required by law. The above report was generated using voice recognition software. It may contain grammatical, syntax or spelling errors. Electronically signed by: Bandar Negro M.D. 02/02/2020 12:00 PM
[2020-02-02 12:33] LABS: INR 1.2 (0.9-1.1); Partial Thromboplastin Ratio 0.9; Partial Thromboplastin Time 23.9 Seconds (21.0-31.0); Prothrombin Time 12.3 Seconds (9.0-12.0)
[2020-02-02 12:42] LABS: Alanine Aminotransferase 15 U/L (12-78); Albumin Level 2.4 gm/dl (3.4-5.0); Alkaline Phosphatase 74 U/L (45-117); Amylase 36 U/L (25-115); Aspartate Aminotransferase 16 U/L (15-37); Bilirubin Direct < 0.1 mg/dl (0-0.2); Bilirubin,Total 0.4 mg/dl (0.2-1); Lipase 38 U/L (73-393); Total Protein 5.9 gm/dl (6.4-8.2)
--- NOTE | 2020-02-02 14:59 | Ultrasound Report ---
US abdomen limited HISTORY: possible splenic subcapsular hematoma on CT. COMPARISON: None. FINDINGS: Ultrasonic evaluation of the spleen shows spleen to be enlarged at 18 cm. There is a 7 x 8 cm heterog eneous region of the subcapsular aspect of the mid inferior spleen suggesting potential hematoma. Thi s represents a interval change compared to the CT study of 01/28/2020 but is confirmed on the study of 02/02/2020. This is a mixed echogenicity region suggesting subcapsular hematoma. There is a trace perihepatic spl enic fluid. IMPRESSION: Heterogeneous mid to inferior aspect of the spleen with a maximum dimension of 7 x 8 cm. This is high ly suggestive of a subcapsular hematoma. ACT 112: Negative or not required by law. The above report was generated using voice recognition software. It may contain grammatical, syntax or spelling errors. Electronically signed by: Bandar Negro M.D. 02/02/2020 2:58 PM
--- NOTE | 2020-02-02 17:06 | Surgery Consultation ---
Date of Consultation February 02, 2020 Assessment & Plan (1) Subcapsular hemorrhage of spleen: This is a 79yF with a PMH of myelodysplastic syndrome, COPD, thrombocythemia, CKDIII, recent duodenal ulcer, recent cdiff who was admitted to the hospital on 01/23/20 with pneumonia. Surgery was consulted today as patient developed left sided abdominal pain over the past couple of days prompting CT and US imaging that revealed findings consistent with a subcapsular splenic hematoma. She denies any recent trauma outside of a fall last month of which she suffered a pelvic fracture. During patient's admission she was found to be anemic, requiring 1uPRBC on 01/23, and over the past 4 days her Hbg has been overall unchanged in the 8.2-8.7 range. Patient's vital signs of recent show a HR 90's-low 100's, and SBP's 90's-100s. On examination patient appears to be resting comfortably in bed, but is tender to palpation in the left sided abdomen w/ guarding. At this time agree with sending patient to the PCU/Tele unit for closer monitoring. Recommend serial H&H checks q8h and checking vital signs q1h. Although patient has findings of subacute PE's on chest imaging, would hold off on anticoagulation at this time. Our hope is that this hematoma will self contain and that we can get by with conservative measures. If there is concern the hematoma is expanding and patient's condition worsens (acute change in vital signs or drop in hgb) she will need to be transferred to a tertiary center for Interventional Radiology management. We would not take her to the OR for this issue. Discussed with hospitalists consideration of transferring her now vs. giving pt a trial of observation, agreed to observe over the next 24hour for now. I have discussed this case with Dr. Billy. History of Present Illness Attending Physician: Tuan Nick MD History of Present Illness This is a 79yF with a PMH of myelodysplastic syndrome, COPD, thrombocythemia, CKDIII, recent duodenal ulcer, recent cdiff, PE's, who presented to the [facility] ED on 01/23/20 with complaints of feeling ill and shortness of breath. Workup revealed findings consistent with pneumonia & mucus plugging requiring a bronchoscopy in the ICU, currently remains on abx. Over the past couple days the patient reported some left sided abdominal pain, associated with nausea- no vomiting. Patient has not felt pain like this before. Upon my interview she rates it a 7/10 in severity and sharp in nature. Due to ongoing complaints of abdominal pain a CT a/p was performed today that revealed findings consistent with a 10x5cm supcapsular collection of the spleen. An abdominal US was performed thereafter confirming a 7x8cm collection highly consistent with a subcapsular splenic hematoma. Patient denies any history of trauma outside of a fall last month where she did fracture her pelvis, which she says has gotten better without surgical intervention. Surgery was consulted for further evaluation. Allergies Allergy/AdvReac Type Severity Reaction Status Date / Time latex Allergy Intermediate HIVES Verified 01/23/20 09:47 nickel Allergy Intermediate Hives/Itchi Verified 01/23/20 09:47 ness Iodinated Contrast Media AdvReac Mild Diarrhea Verified 01/23/20 09:47 [Iodinated Contrast- Oral and IV Dye] Lobster Allergy Severe HIVES Uncoded 01/23/20 09:47 Home Medications Home Medications Medication Instructions Recorded Confirmed Type hydroxyurea [Hydrea] 500 mg PO HS 06/06/18 01/23/20 History pantoprazole [Protonix] 40 mg PO BID 06/06/18 01/23/20 History pregabalin [Lyrica] 75 mg PO BID 06/06/18 01/23/20 History temazepam [Restoril] 30 mg PO HS PRN 06/06/18 01/23/20 History Spiriva with HandiHaler 1 cap INHALATION QAM 12/17/19 01/23/20 History albuterol sulfate 2.5 mg INHALATION Q4H PRN 12/17/19 01/23/20 History albuterol sulfate [Ventolin HFA] 2 puff INHALATION QID PRN 12/17/19 01/23/20 History amitriptyline 75 mg PO HS 12/17/19 01/23/20 History fluticasone propion-salmeterol 1 inh INHALATION BID 12/17/19 01/23/20 History loperamide 2 mg PO Q4H PRN 12/17/19 01/23/20 History olopatadine 1 drp OPB BID PRN 12/17/19 01/23/20 History trazodone 50 mg PO HS 12/17/19 01/23/20 History tramadol 50 mg PO BID PRN #10 tab 12/30/19 01/23/20 Rx acetaminophen [Tylenol] 325 mg PO QID PRN 01/23/20 01/23/20 History Patient History Medical History Anemia (Chronic) CKD (chronic kidney disease), stage III (Chronic) COPD (chronic obstructive pulmonary disease) (Chronic) Essential thrombocythemia (Chronic) History of breast cancer (Chronic) History of MRSA infection (Chronic) "left hip wound" History of peptic ulcer disease (Chronic) IBS (irritable bowel syndrome) (Chronic) Diarrhea predominant ; follows with GI Leukocytosis (Chronic) 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) Myelodysplastic syndrome (Chronic) Myelodysplastic syndrome (Chronic) Pelvic fracture Pulmonary emboli Pulmonary nodules CT 01/23/20: 5 mm RML 3 mm RML 3 mm DEVEN 4 mm RUL S/P ORIF (open reduction internal fixation) fracture (Chronic) Thrombocytosis (Chronic) Surgical History H/O mastectomy (Chronic) modified radical masectomy H/O: hysterectomy (Chronic) History of cholecystectomy (Chronic) Status post hysterectomy (Chronic) Status post mastectomy (Chronic) "modified right mastectomy 1990" Status post total hip replacement, left (Chronic) Family History Other Unknown family medical history Social History Preferred Language: [place] Communication Ability: Effective 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 Beliefs That Will Affect Care: None marital status: / Current Living Situation: Family Other Information That Helps Us Care for You: No Feels Safe at Home: Yes Safety Concerns: Feels Safe At This Time Smoking Status: Current some day smoker (Vaping) Tobacco Type: cigarettes ; p acks per day: 1 ; Years Smoked: 50 ; Cigarettes Per Day: 20 ; Do You Dip or Chew Tobacco: No ; Second Hand Exposure: No ; Tobacco Cessation Education Requested by Patient: No Hx Alcohol Use: No Hx Substance Use: No Review of Systems Constitutional: no fever and no chills Respiratory: no dyspnea Cardiovascular: no chest pain Gastrointestinal: + abdominal pain (left sided abdominal pain), + nausea and + diarrhea/loose stools; no bloating and no vomiting Physical Exam Physical Exam: drowsy but easily arousable and communicative Constitutional: no acute distress Respiratory: normal respiratory effort Gastrointestinal (Abdomen): Inspection/Auscultation: abdomen not distended Percussion/Palpation: + abdomen tender (ttp left sided abdomen), + guarding and abdomen soft Results & Data Vital Signs (Past 12 Hours) Vital Signs Temp Pulse Pulse Resp BP Pulse Ox 02/02/20 15:07 37.8 C H 92 H 16 109/65 98 02/02/20 07:28 37.1 C 91 H 16 97/[address] abd pelvis wo con CT DOSE: 258.23 mGy.cm HISTORY: Pain abdominal pain TECHNIQUE: Multiaxial CT images of the abdomen and pelvis were performed without contrast. A dose lowering technique was utilized adhering to the principles of ALARA. COMPARISON STUDY: 12/31/2019 FINDINGS: Interval development of bilateral pleural effusions. Left lower lobe consolidative change. Similar but less prominent findings seen involving the right lower lobe. Configuration of liver is unremarkable. Prior cholecystectomy. Interval development of interposed bowel versus subcapsular splenic bleed juve uring 10 x 5 cm. The left kidney remains negative for hydronephrosis. Generalized nonobstructive ileus. Mild bladder distention. Trace free fluid within the pelvic cul-de-sac. IMPRESSION: 1. Somewhat compromised exam due to the absence of contrast enhancement. 2. Interval development of left and to a lesser extent right pleural effusions combined with basilar lower lobe atelectatic/consolidative change. 3. Interval development of subcapsular collection inferior pole of the spleen measuring 10 x 5 cm. This may represent a subcapsular bleed. 4. Unchanged right renal cysts. 6. Generalized nonobstructive ileus. ACT 112: Negative or not required by law. The above report was generated using voice recognition software. It may contain grammatical, syntax or spelling errors. Electronically signed by: Bandar Negro M.D. 02/02/2020 12:00 PM US abdomen limited HISTORY: possible splenic subcapsular hematoma on CT. COMPARISON: None. FINDINGS: Ultrasonic evaluation of the spleen shows spleen to be enlarged at 18 cm. There is a 7 x 8 cm heterogeneous region of the subcapsular aspect of the mid inferior spleen suggesting potential hematoma. This represents a interval change compared to the CT study of 01/28/2020 but is confirmed on the study of 02/02/2020. This is a mixed echogenicity region suggesting subcapsular hematoma. There is a trace perihepatic splenic fluid. IMPRESSION: Heterogeneous mid to inferior aspect of the spleen with a maximum dimension of 7 x 8 cm. This is highly suggestive of a subcapsular hematoma. ACT 112: Negative or not required by law. The above report was generated using voice recognition software. It may contain grammatical, syntax or spelling errors. Electronically signed by: Bandar Negro M.D. 02/02/2020 2:58 PM PG Care Time/CCT Total # of Minutes Spent Total Time Spent with Patient: Total time spent is greater than 50% in coordination of care (as documented) at patient's floor/unit and/or counseling patient: Coding Level of Care Code 75552 Initial Inpt Care Lvl 1 Diagnoses Subcapsular hemorrhage of spleen D73.89
[2020-02-02 18:51] LABS: Hematocrit (blood only) 28.5 % (37-47); Hemoglobin 8.5 g/dL (12.0-16.0)
[2020-02-02] MEDS: ACETAMINOPHEN 325 MG TAB PO PRN (20:05)
[2020-02-02] MEDS: MAGNESIUM OXIDE 400 MG TAB PO SCH (20:57)
[2020-02-02] MEDS: TEMAZEPAM 15 MG CAPSULE PO PRN (20:57)
[2020-02-02] MEDS: AMITRIPTYLINE HCL 25 MG TAB PO SCH (20:58)
[2020-02-02] MEDS: HYDROXYUREA 500 MG CAP PO SCH (20:58)
[2020-02-02] MEDS: levoFLOXacin 750 MG TAB PO SCH (20:58)
[2020-02-02] MEDS: TRAZODONE HCL 50 MG TAB PO SCH (21:02)
[2020-02-03 07:53] LABS: BUN Creatinine Ratio 14.1 (10-20); Calcium 8.3 mg/dl (8.5-10.1); Creatinine Clr Calc Pharmacy 33.9 ml/min; Est GFR (African American) 56.1; Est GFR (Non-African American) 48.4; Potassium 4.7 mmol/L (3.5-5.1)
[2020-02-03 08:44] LABS: Basophils # (auto) 0.02 K/uL (0-0.2); Basophils % (auto) 0.2 %; Eosinophils # (auto) 0.37 K/uL (0-0.5); Eosinophils % (auto) 4.3 %; Hematocrit (blood only) 23.5 % (37-47); Hemoglobin 7.2 g/dL (12.0-16.0); Immature Granulocytes # (auto) 0.25 K/uL (0.00-0.02); Immature Granulocytes % (auto) 2.9 %; Lymphocytes # (auto) 1.06 K/uL (1.2-3.4); Lymphocytes % (auto) 12.4 %; Mean Corpuscular Hgb Conc 30.6 g/dL (32-36); Mean Corpuscular Volume 97.9 fL (80-100); Mean Platelet Volume 12.3 fL (7.4-10.4); Monocytes # (auto) 0.65 K/uL (0.11-0.59); Monocytes % (auto) 7.6 %; Neutrophils # (auto) 6.18 K/uL (1.4-6.5); Neutrophils % (auto) 72.6 %; Nucleated RBC # (auto) 0.03 K/uL (0-0); Nucleated RBC % (auto) 0.3 %; Platelet Count 437 K/uL (130-400); RDW Coefficient of Variation 27.5 % (11.5-14.5); RDW Standard Deviation 94.1 fL (36.4-46.3); White Blood Count 8.53 K/uL (4.8-10.8)
[2020-02-03] MEDS ORDERED: SODIUM CHLORIDE 0.9% 250 ML IV PRN ×2 (09:12→12:03)
[2020-02-03 09:31] LABS: Anisocytosis Present; Tear Drop Cells 1+
[2020-02-03] MEDS: NICOTINE 21 MG/24 HR TDSY TD SCH (09:42)
[2020-02-03] MEDS: UMECLIDINIUM BROMIDE 62.5MCG/BLISTER 7 PUFFS/INHALER INH SCH (09:42)
[2020-02-03] MEDS: PANTOprazole 40 MG TAB PO SCH ×2 (09:43→19:34)
[2020-02-03] MEDS: FLUTICASONE/VILANTEROL 100/25MCG 14 PUFFS/INHALER INH SCH (09:43)
[2020-02-03] MEDS: NYSTATIN SUSP 500,000 U/5 ML UDC PO SCH ×4 (09:43→19:34)
[2020-02-03] MEDS: PREGABALIN 75 MG CAP PO SCH ×2 (09:46→19:33)
[2020-02-03 10:15] LABS: Hematocrit (blood only) 24.4 % (37-47); Hemoglobin 7.5 g/dL (12.0-16.0)
--- NOTE | 2020-02-03 10:24 | Surgery Progress Note ---
Date of Service February 03, 2020 Assessment & Plan (1) Subcapsular hemorrhage of spleen: H/H dropped and BP slightly dropped recommend transfuse PRBC's consider repeat CT scan to eval enlarging hematoma vs transfer to tertiary center that has IR capability to embolize will continue to follow closely. IR much better option than spenectomy for her. Subjective pt seen. feeling "well " currently. still with pain in LUQ but comfortable currently. Physical Exam Physical Exam: alert. oriented. nad abd: soft. +LUQ/left flank TTP. no g/r/r. Results & Data Vital Signs (Past 12 Hours) Vital Signs Temp Pulse Pulse Pulse Resp BP Pulse Ox 02/03/20 07:10 36.5 C 76 18 91/48 L 99 02/03/20 03:02 37.1 C 75 16 109/63 99 02/03/20 00:00 93 H 02/02/20 23:14 36.6 C 91 H 17 100/61 97 PG Care Time/CCT Total # of Minutes Spent Total Time Spent with Patient: Total time spent is greater than 50% in coordination of care (as documented) at patient's floor/unit and/or counseling patient: Coding Level of Care Code 92535 Subseq Hosp Care Lvl 3 Diagnoses Subcapsular hemorrhage of spleen D73.89
--- NOTE | 2020-02-03 11:01 | Ultrasound Report ---
US abdomen limited HISTORY: Splenic hematoma follow-up splenic hematoma. COMPARISON: 02/02/2020 FINfindings: Evaluation of the spleen shows no major change compared to the prior study. The heteroge neous internal architecture suggestive of hematoma and/or subcapsular collection is unchanged. There is trace amount of perisplenic fluid which is unaltered. IMPRESSION: No change from the prior study. Appearance of the spleen again suggests a lower pole hematoma with a trace amount of perisplenic fluid. The possibility of splenic infarcts involving the lower pole is no t entirely excluded. ACT 112: Negative or not required by law. The above report was generated using voice recognition software. It may contain grammatical, syntax or spelling errors. Electronically signed by: Bandar Negro M.D. 02/03/2020 10:59 AM
[2020-02-03] MEDS ORDERED: ACETAMINOPHEN 500 MG TAB PO PRN (12:30)
[2020-02-03] MEDS ORDERED: IOVERSOL 100ml IV PRN (14:44)
--- NOTE | 2020-02-03 15:04 | CT Scan Report ---
CT abdomen w IV con CLINICAL HISTORY: splenic hematoma, r/o ongoing hemorrhage COMPARISON STUDY: 02/02/2020 FINDINGS: The patient was scanned in a dynamic helical fashion during intravenous administration of 90 cc of Op tiray 320. A dose reduction technique was utilized adhering to the principles of ALARA. Images to the lower chest reveal a right breast prosthesis. There is pulmonary emphysema. There are s mall bilateral pleural effusions. There are bilateral lower lobe airspace opacities, statistically at electatic. No focal hepatic masses are visualized. The gallbladder is surgically absent. There is mild central ductal prominence. The spleen is enlarged measuring 18.3 cm. There is a lower pole splenic infarct/hematoma, similar to the prior study. There are no perisplenic fluid collections. There is no evidence of abdominal aortic aneurysm. No adrenal masses are visualized. There is a 5.6 cm right renal cyst. There is a punctate nonobstructing right renal calculus. IMPRESSION: 1. Persistent small bilateral pleural effusions with bilateral lower lobe airspace opacities 2. Persistent splenomegaly (18.3 cm). Lower pole left splenic infarct/hemorrhage, similar in appearan ce to the preceding study ACT 112: Negative or not required by law. Electronically signed by: Sher Lira M.D. 02/03/2020 3:03 PM
[2020-02-03] MEDS: TRAMADOL HCL 50 MG TABLET PO PRN (19:32)
[2020-02-03] MEDS: TRAZODONE HCL 50 MG TAB PO SCH (19:33)
[2020-02-03] MEDS: MAGNESIUM OXIDE 400 MG TAB PO SCH (19:33)
[2020-02-03] MEDS: HYDROXYUREA 500 MG CAP PO SCH (19:34)
[2020-02-03] MEDS: AMITRIPTYLINE HCL 25 MG TAB PO SCH (19:34)
[2020-02-03] MEDS: TEMAZEPAM 15 MG CAPSULE PO PRN (19:39)
[2020-02-03 20:42] LABS: Hematocrit (blood only) 28.3 % (37-47); Hemoglobin 8.9 g/dL (12.0-16.0); Mean Corpuscular Hemoglobin 29.8 pg (25-34); Mean Corpuscular Hgb Conc 31.4 g/dL (32-36); Mean Corpuscular Volume 94.6 fL (80-100); Nucleated RBC # (auto) 0.02 K/uL (0-0); Nucleated RBC % (auto) 0.2 %; Platelet Count 482 K/uL (130-400); RDW Coefficient of Variation 25.7 % (11.5-14.5); RDW Standard Deviation 83.8 fL (36.4-46.3); Red Blood Count 2.99 M/uL (4.2-5.4); White Blood Count 10.67 K/uL (4.8-10.8)
--- NOTE | 2020-02-03 22:29 | Hospitalist Progress Note ---
Date of Service February 03, 2020 Assessment & Plan (1) Severe sepsis: Met criteria for severe sepsis per current [facility] definition- tachycardia, tachypnea, leukocytosis, lactate > 2. Source = pneumonia as discussed below. (2) Pneumonia: Chest x-ray at time of admission demonstrated LLE density. CT chest demonstrated opacification of left lower lobe bronchus with consolidation of LLL; patchy airspace opacities were also seen within the DEVEN and RLL. Critical Care Medicine consulted. Bronchoscopy revealed mucus plugging LLL bronchus. Cultures negative except for Sydney on bronch washings (probable contamination). Chest x-ray 01/29 improved. Completing course of levofloxacin. (3) Mucoid impaction of bronchi: S/P bronchoscopy. Continue pulmonary toilet. (4) Pulmonary nodules: CTA chest 01/23/20 revealed several small pulmonary nodules (5 mm RML, 3 mm RML, 3 mm DEVEN, 4 mm RUL- all stable compared to 12/21/19). CTA chest 01/28/20 demonstrated 1 cm nodule RLL. Smoking history; also has history of breast Ca. Follow-up per guidelines. (5) Pulmonary emboli: D-dimer elevated (1080). CTA chest 01/23/20 demonstrated multiple chronic / subacute pulmonary emboli; repeat CTA 01/27 unchanged. Venous duplex lower extremities 01/28/20 negative for DVT. Probably underlying hypercoagulability (MDS, thrombocytosis). Anticoagulation indicated, but initially postponed due to recent GI bleed from duodenal ulcer and now due to splenic hematoma. Stools heme negative 01/31. Consider anticoagulation in the future when benefits outweigh risks. (6) COPD exacerbation: Secondary to pneumonia. Bronchodilators PRN. (7) Acute respiratory failure with hypoxia: Hypoxia, multifactorial- pneumonia, COPD, pulmonary emboli. O2 stats fluctuating in low-high 90's on 2 L NC. Continue supplemental O2, wean as able. 2-step pulse oximetry prior to discharge. (8) Leukocytosis: WBC up to 20,820 on 01/29. Procalcitonin 1.05. Pneumonia seems to be clinically improved. Diarrhea as discussed above. No urinary symptoms. Chest x-ray 01/29 improved. Leukocytosis may have been secondary to diarrhea or perhaps splenic infarct / hematoma. WBC today = 10,670. Follow. (9) Diarrhea: Pt attributes diarrhea to CT contrast. Stool negative for C diff gene by PCR. Stool culture negative for routine enteric pathogens, but growing many Sydney. Started Rx with nystatin. Improved. (10) Duodenal ulcer: UGI bleed in December. EGD demonstrated duodenal ulcer. No apparent complications noted on CT's 02/01 or today. Continue PPI. (11) Abdominal pain: Has been experiencing abdominal pain to varying degrees for some time. Diagnosed with duodenal ulcer 12/22. Had C diff colitis in December with sigmoid colitis demonstrated on CT. Now with epigastric and left-sided tenderness. Plain films of abdomen a few days ago did not show any acute findings. Evaluation of diarrhea as discussed above. Consider pancreatitis- check labs and CT. Consider ischemic bowel- check lactate and CT. Consider perforation of duodenal ulcer- check CT. Patient is intolerant of IV and PO contrast, so best to do CT scans without. (12) Acute kidney injury superimposed on chronic kidney disease: History of CKD III with baseline creatinine 0.7 - 0.9. Creatinine at time of admission was 1.27. Acute kidney injury secondary to sepsis. Creatinine today = 1.10. (13) Myelodysplastic syndrome: Continue hydroxyurea. (14) Anemia: Secondary to MDS + recent UGI bleed. Hgb 9.9 at time of admission and fell to 6.8 on 01/23. Suspect hemodilution secondary to IV fluids. No gross GI bleeding at that time. Received 1 unit pRBC's 01/23. Stool heme neg 01/31. Hgb today = 7.2, repeat 7.5. No melena or hematochezia. Splenic hematoma diagnosed 02/01, but no apparent ongoing hemorrhage / expansion as discussed below. Transfuse 2nd unit pRBC's today. Follow. (15) Vapes nicotine containing substance: Cessation advised. (16) Subcapsular hemorrhage of spleen: Has been experiencing abdominal pain to varying degrees for some time. Diagnosed with duodenal ulcer 12/22. Had C diff colitis in December with sigmoid colitis demonstrated on CT. Experiencing persistent epigastric and left-sided tenderness. Plain films of abdomen 01/29 did not show any acute findings. CT abdomen done on 02/01 demonstrated apparent subcapsular hematoma of spleen which was confirmed by CT. No recent trauma. H/H, hemodynamics stable. General Surgery consulted. Observation recommended. Hgb dropped to 7.2 this morning. Hemodynamically stable. Symptoms improved. Repeat US demonstrated stable appearing hematoma. Images sent to [facility] and case reviewed with IR. They suggested repeat CT with contrast (pt has apparent hx of diarrhea from IV contrast, but reluctantly agreed to study). CT showed stable splenic infarct / hematoma without active bleeding. No need for any emergent procedures. Continue to monitor. (17) DVT prophylaxis: Low dose enoxaparin ordered earlier in hospital stay. No anticoagulants at this time due to splenic hematoma. SCD's and TEDS ordered- patient refused. Ambulate. (18) Discharge planning issues: Anticipated discharge to home where she lives with her daughter; will need home health services. Internal Medicine follow-up with Dr. Valerie Chavez. Hematology / Oncology follow-up with Dr. Mainor Chavez. Daughter given update this evening by phone. Admission and Anticipated Discharge Date Admission Date: January 23, 2020 Subjective Recheck for pneumonia and other problems. Patient seen in their room this morning and re-evaluated in the afternoon. Abdominal pain improved- only experiencing tenderness with palpation. No fever or chills. Cough improved. Less SOB. Oxygenation improved, but still requiring supplemental O2. No anginal symptoms. Diarrhea improved. No urinary symptoms. Review of Systems: As noted above. Physical Exam Constitutional: no acute distress Eyes: + anicteric sclerae Respiratory: no respiratory distress Auscultation: + wheezes (mild) Cardiovascular: Rate/Rhythm: regular rate and regular rhythm Heart Sounds: no gallop, no murmur and no cardiac rub Vessels: no JVD Extremities: no calf tenderness and no edema Gastrointestinal (Abdomen): Inspection/Auscultation: normal bowel sounds; abdomen not distended Percussion/Palpation: + abdomen tender (moderate left- sided tenderness without rebound) and abdomen soft Musculoskeletal: Extremities: no cyanosis Skin: no rashes, warm and dry Psychiatric: Orientation: alert Results & Data Results & Data ([facility]) Vital Signs (Past 12 Hours) Vital Signs Temp Pulse Pulse Resp BP BP BP 02/03/20 19:22 37.2 C 79 18 147/77 H 02/03/20 19:16 37.2 C 79 18 147/77 H 02/03/20 19:02 36.4 C L 78 21 145/77 H 02/03/20 18:41 37.1 C 92 H 18 131/74 02/03/20 18:16 36.9 C 89 18 132/77 02/03/20 17:16 37 C 84 18 126/79 02/03/20 16:46 37 C 82 18 130/72 02/03/20 16:31 37 C 92 H 20 123/77 02/03/20 16:10 37.1 C 87 16 136/71 02/03/20 15:07 37.1 C 83 21 133/70 02/03/20 11:25 37.2 C 79 18 101/52 L Pulse Ox 02/03/20 19:22 91 02/03/20 19:16 91 02/03/20 19:02 90 02/03/20 18:41 93 02/03/20 18:16 92 02/03/20 17:16 93 02/03/20 16:46 91 02/03/20 16:31 93 02/03/20 16:10 92 02/03/20 15:07 96 02/03/20 11:25 96 Laboratory Results Laboratory Results - last 24 hr 02/02/20 02/03/20 02/03/20 18:29 06:48 06:55 WBC 8.53 RBC 2.40 L Hgb 7.2 L Hct 23.5 L MCV 97.9 MCH 30.0 MCHC 30.6 L RDW Std Deviation 94.1 H RDW Coeff of Radha 27.5 H Plt Count 437 H MPV 12.3 H Immature Gran % (Auto) 2.9 Neut % (Auto) 72.6 Lymph % (Auto) 12.4 Cocke % (Auto) 7.6 Eos % (Auto) 4.3 Baso % (Auto) 0.2 Immature Gran # (Auto) 0.25 H Neut # (Auto) 6.18 Lymph # (Auto) 1.06 L Cocke # (Auto) 0.65 H Eos # (Auto) 0.37 Baso # (Auto) 0.02 Absolute Nucleated RBC 0.03 H Nucleated RBC % (auto) 0.3 Anisocytosis Present Tear Drop Cells 1+ Sodium 139 Potassium 4.7 Chloride 107 Carbon Dioxide 29 Anion Gap 2.0 L BUN 16 Creatinine 1.10 Est Cr Clr Drug Dosing 33.9 Est GFR ( Amer) 56.1 Est GFR (Non-Af Amer) 48.4 BUN/Creatinine Ratio 14.1 Glucose 76 Calcium 8.3 L Blood Type A Positive Antibody Screen NEGATIVE Crossmatch See Detail 02/03/20 02/03/20 09:52 20:29 WBC 10.67 RBC 2.99 L Hgb 7.5 L 8.9 L Hct 24.4 L 28.3 L MCV 94.6 MCH 29.8 MCHC 31.4 L RDW Std Deviation 83.8 H RDW Coeff of Radha 25.7 H Plt Count 482 H MPV 12.0 H Immature Gran % (Auto) Neut % (Auto) Lymph % (Auto) Cocke % (Auto) Eos % (Auto) Baso % (Auto) Immature Gran # (Auto) Neut # (Auto) Lymph # (Auto) Cocke # (Auto) Eos # (Auto) Baso # (Auto) Absolute Nucleated RBC 0.02 H Nucleated RBC % (auto) 0.2 Anisocytosis Tear Drop Cells Sodium Potassium Chloride Carbon Dioxide Anion Gap BUN Creatinine Est Cr Clr Drug Dosing Est GFR ( Amer) Est GFR (Non-Af Amer) BUN/Creatinine Ratio Glucose Calcium Blood Type Antibody Screen Crossmatch Diagnostic Findings ULTRASOUND ABDOMEN FINfindings: Evaluation of the spleen shows no major change compared to the prior study. The heterogeneous internal architecture suggestive of hematoma and/or subcapsular collection is unchanged. There is trace amount of perisplenic fluid which is unaltered. IMPRESSION: No change from the prior study. Appearance of the spleen again suggests a lower pole hematoma with a trace amount of perisplenic fluid. The possibility of splenic infarcts involving the lower pole is not entirely excluded. ACT 112: Negative or not required by law. The above report was generated using voice recognition software. It may contain grammatical, syntax or spelling errors. Electronically signed by: Bandar Negro M.D. 02/03/2020 10:[address] ABDOMEN FINDINGS: Images to the lower chest reveal a right breast prosthesis. There is pulmonary emphysema. There are small bilateral pleural effusions. There are bilateral lower lobe airspace opacities, statistically atelectatic. No focal hepatic masses are visualized. The gallbladder is surgically absent. There is mild central ductal prominence. The spleen is enlarged measuring 18.3 cm. There is a lower pole splenic infarct/hematoma, similar to the prior study. There are no perisplenic fluid collections. There is no evidence of abdominal aortic aneurysm. No adrenal masses are visualized. There is a 5.6 cm right renal cyst. There is a punctate nonobstructing right renal calculus. IMPRESSION: 1. Persistent small bilateral pleural effusions with bilateral lower lobe airspace opacities 2. Persistent splenomegaly (18.3 cm). Lower pole left splenic infarct/hemorrhage, similar in appearance to the preceding study ACT 112: Negative or not required by law. Electronically signed by: Sher Lira M.D. 02/03/2020 3:03 PM (1) Pneumonia Laterality: left Lung location: lower lobe of lung Pneumonia type: due to unspecified organism Qualified Code(s): J18.9 - Pneumonia, unspecified organism (2) 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
[2020-02-04] MEDS: TRAMADOL HCL 50 MG TABLET PO PRN ×2 (06:29→16:18)
[2020-02-04 06:36] LABS: Hematocrit (blood only) 28.8 % (37-47); Hemoglobin 9.2 g/dL (12.0-16.0); Mean Corpuscular Hemoglobin 30.2 pg (25-34); Mean Corpuscular Hgb Conc 31.9 g/dL (32-36); Mean Corpuscular Volume 94.4 fL (80-100); Mean Platelet Volume 12.3 fL (7.4-10.4); Platelet Count 475 K/uL (130-400); RDW Coefficient of Variation 25.9 % (11.5-14.5); RDW Standard Deviation 85.6 fL (36.4-46.3); Red Blood Count 3.05 M/uL (4.2-5.4); White Blood Count 9.33 K/uL (4.8-10.8)
[2020-02-04 07:07] LABS: BUN Creatinine Ratio 11.9 (10-20); Calcium 8.3 mg/dl (8.5-10.1); Creatinine Clr Calc Pharmacy 34.5 ml/min; Est GFR (African American) 57.3; Est GFR (Non-African American) 49.5; Potassium 4.5 mmol/L (3.5-5.1)
[2020-02-04] MEDS: NICOTINE 21 MG/24 HR TDSY TD SCH (09:17)
[2020-02-04] MEDS: PANTOprazole 40 MG TAB PO SCH ×2 (09:17→20:04)
[2020-02-04] MEDS: PREGABALIN 75 MG CAP PO SCH ×2 (09:17→20:07)
[2020-02-04] MEDS: NYSTATIN SUSP 500,000 U/5 ML UDC PO SCH ×4 (09:18→20:03)
[2020-02-04] MEDS: UMECLIDINIUM BROMIDE 62.5MCG/BLISTER 7 PUFFS/INHALER INH SCH (09:18)
[2020-02-04] MEDS: FLUTICASONE/VILANTEROL 100/25MCG 14 PUFFS/INHALER INH SCH (09:18)
--- NOTE | 2020-02-04 09:29 | Surgery Progress Note ---
Date of Service February 04, 2020 Assessment & Plan (1) Subcapsular hemorrhage of spleen: H&H stable re-imaging was also stable as above. doing well clinically. feeling well today H/H came up appropriately after transfusing vitals better no sign of active bleeding. Subjective feels much better, minimal LUQ pain Physical Exam Gastrointestinal (Abdomen): Percussion/Palpation: abdomen soft; abdomen nontender and no splenomegaly Results & Data Vital Signs (Past 12 Hours) Vital Signs Temp Pulse Pulse Resp BP BP Pulse Ox 02/04/20 07:47 37.0 C 92 H 19 105/60 91 02/04/20 02:50 37.4 C 80 17 125/64 97 02/04/20 00:09 36.8 C 85 17 116/69 93 PG Care Time/CCT Total # of Minutes Spent Total Time Spent with Patient: Total time spent is greater than 50% in coordination of care (as documented) at patient's floor/unit and/or counseling patient: Coding Level of Care Code 46413 Subseq Hosp Care Lvl 3 Diagnoses Subcapsular hemorrhage of spleen D73.89
[2020-02-04] MEDS: ACETAMINOPHEN 325 MG TAB PO PRN (16:18)
--- NOTE | 2020-02-04 17:24 | Hospitalist Progress Note ---
Date of Service February 04, 2020 Assessment & Plan (1) Severe sepsis: Met criteria for severe sepsis per current [facility] definition- tachycardia, tachypnea, leukocytosis, lactate > 2. Source = pneumonia as discussed below. (2) Pneumonia: Chest x-ray at time of admission demonstrated LLE density. CT chest demonstrated opacification of left lower lobe bronchus with consolidation of LLL; patchy airspace opacities were also seen within the DEVEN and RLL. Critical Care Medicine consulted. Bronchoscopy revealed mucus plugging LLL bronchus. Cultures negative except for Sydney on bronch washings (probable contamination). Chest x-ray 01/29 improved. Completed course of levofloxacin. (3) Mucoid impaction of bronchi: S/P bronchoscopy. Continue pulmonary toilet. (4) Pulmonary nodules: CTA chest 01/23/20 revealed several small pulmonary nodules (5 mm RML, 3 mm RML, 3 mm DEVEN, 4 mm RUL- all stable compared to 12/21/19). CTA chest 01/28/20 demonstrated 1 cm nodule RLL. Smoking history; also has history of breast Ca. Follow-up imaging per guidelines. (5) Pulmonary emboli: D-dimer elevated (1080). CTA chest 01/23/20 demonstrated multiple chronic / subacute pulmonary emboli; repeat CTA 01/27 unchanged. Venous duplex lower extremities 01/28/20 negative for DVT. Probably underlying hypercoagulability (MDS, thrombocytosis). Anticoagulation indicated, but initially postponed due to recent GI bleed from duodenal ulcer and now due to splenic hematoma. Stools heme negative 01/31. Consider anticoagulation in the future when benefits outweigh risks. (6) COPD exacerbation: Secondary to pneumonia. Bronchodilators PRN. (7) Acute respiratory failure with hypoxia: Hypoxia, multifactorial- pneumonia, COPD, pulmonary emboli. O2 stats fluctuating in low-high 90's on 2 L NC. Continue supplemental O2, wean as able. 2-step pulse oximetry prior to discharge. (8) Leukocytosis: WBC up to 20,820 on 01/29. Procalcitonin 1.05. Pneumonia seems to be clinically improved. Diarrhea as discussed above. No urinary symptoms. Chest x-ray 01/29 improved. Procalcitonin down to 0.25 by 02/01. Leukocytosis may have been secondary to diarrhea or perhaps splenic infarct / hematoma. WBC today = 9,330. (9) Diarrhea: Pt attributes diarrhea to CT contrast. Stool negative for C diff gene by PCR. Stool culture negative for routine enteric pathogens, but grew many Sydney. Started Rx with nystatin. Improved. (10) Duodenal ulcer: UGI bleed in December. EGD demonstrated duodenal ulcer. Stool H pylori Ag 01/29 negative. Stools heme negative 01/31. No apparent complications noted on CT's 02/01 or today. Continue PPI. (11) Acute kidney injury superimposed on chronic kidney disease: History of CKD III with baseline creatinine 0.7 - 0.9. Creatinine at time of admission was 1.27. Acute kidney injury secondary to sepsis. Creatinine today = 1.10. (12) Myelodysplastic syndrome: Continue hydroxyurea. Follow H/H. Transfuse PRN. (13) Anemia: Secondary to MDS + recent UGI bleed. Hgb 9.9 at time of admission and fell to 6.8 on 01/23. Suspect hemodilution secondary to IV fluids. No gross GI bleeding at that time. Received 1 unit pRBC's 01/23. Stool heme neg 01/31. Hgb 02/02 = 7.2, repeat 7.5. No melena or hematochezia. Splenic hematoma diagnosed 02/01, but no apparent ongoing hemorrhage / expansion as discussed below. Transfused 2nd unit pRBC's 02/02. Hgb today = 9.2. Follow. (14) Subcapsular hemorrhage of spleen: Has been experiencing abdominal pain to varying degrees for some time. Diagnosed with duodenal ulcer 12/22. Had C diff colitis in December with sigmoid colitis demonstrated on CT. Experiencing persistent epigastric and left-sided tenderness. Plain films of abdomen 01/29 did not show any acute findings. CT abdomen done on 02/01 demonstrated apparent subcapsular hematoma of spleen which was confirmed by US. No recent trauma. H/H, hemodynamics stable. General Surgery consulted. Observation recommended. Hgb dropped to 7.2 02/02. Hemodynamically stable. Symptoms improved. Repeat US demonstrated stable appearing hematoma. [place] [facility] case reviewed with IR. CT with contrast showed stable splenic infarct / hematoma without active bleeding. No need for any emergent procedures. LUQ pain improved. H/H stable post transfusion. Hemodynamically stable. Continue to monitor. (15) Vapes nicotine containing substance: Cessation advised. (16) DVT prophylaxis: Low dose enoxaparin ordered earlier in hospital stay. No anticoagulants at this time due to splenic hematoma. SCD's and TEDS ordered- patient refused. Ambulate. (17) Discharge planning issues: Anticipated discharge to home where she lives with her daughter; will need home health services. Internal Medicine follow-up with Dr. Valerie Chavez. Hematology / Oncology follow-up with Dr. Mainor Chavez. Daughter given update this evening by phone. Admission and Anticipated Discharge Date Admission Date: January 23, 2020 Subjective Recheck for pneumonia and other problems. Patient seen in their room around 1000. Abdominal pain improved. No fever or chills. Cough improved. Less SOB. Oxygenation improved, but still requiring supplemental O2. No anginal symptoms. Diarrhea improved, but had 2 loose bowel movements last night. No melena or hematochezia. No urinary symptoms. Review of Systems: As noted above. Physical Exam Constitutional: no acute distress Eyes: + anicteric sclerae Respiratory: no respiratory distress Auscultation: + wheezes (mild) Cardiovascular: Rate/Rhythm: regular rate and regular rhythm Heart Sounds: no gallop, no murmur and no cardiac rub Vessels: no JVD Extremities: no calf tenderness and no edema Gastrointestinal (Abdomen): Inspection/Auscultation: normal bowel sounds; abdomen not distended Percussion/Palpation: + abdomen tender (mild left-sided tenderness without rebound) and abdomen soft Musculoskeletal: Extremities: no cyanosis Skin: no rashes, warm and dry Psychiatric: Orientation: alert Results & Data Results & Data ([facility]) Vital Signs (Past 12 Hours) Vital Signs Temp Pulse Pulse Resp BP BP Pulse Ox 02/04/20 15:55 36.5 C 92 H 18 132/60 94 02/04/20 11:58 37.2 C 83 18 106/65 90 02/04/20 07:47 37.0 C 92 H 19 105/60 91 Laboratory Results 02/04/20 06:18 02/04/20 06:18 (1) Pneumonia Laterality: left Lung location: lower lobe of lung Pneumonia type: due to unspecified organism Qualified Code(s): J18.9 - Pneumonia, unspecified organism (2) 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
[2020-02-04] MEDS: MAGNESIUM OXIDE 400 MG TAB PO SCH (20:03)
[2020-02-04] MEDS: TEMAZEPAM 15 MG CAPSULE PO PRN (20:03)
[2020-02-04] MEDS: AMITRIPTYLINE HCL 25 MG TAB PO SCH (20:04)
[2020-02-04] MEDS: HYDROXYUREA 500 MG CAP PO SCH (20:04)
[2020-02-04] MEDS: TRAZODONE HCL 50 MG TAB PO SCH (20:07)
[2020-02-05] MEDS: PANTOprazole 40 MG TAB PO SCH ×2 (08:01→20:09)
[2020-02-05] MEDS: NICOTINE 21 MG/24 HR TDSY TD SCH (08:01)
[2020-02-05] MEDS: NYSTATIN SUSP 500,000 U/5 ML UDC PO SCH ×6 (08:03→20:16)
[2020-02-05] MEDS: FLUTICASONE/VILANTEROL 100/25MCG 14 PUFFS/INHALER INH SCH (08:04)
[2020-02-05] MEDS: UMECLIDINIUM BROMIDE 62.5MCG/BLISTER 7 PUFFS/INHALER INH SCH (08:04)
[2020-02-05 08:06] LABS: Basophils # (auto) 0.02 K/uL (0-0.2); Basophils % (auto) 0.2 %; Eosinophils # (auto) 0.41 K/uL (0-0.5); Eosinophils % (auto) 3.2 %; Hematocrit (blood only) 29.5 % (37-47); Hemoglobin 9.1 g/dL (12.0-16.0); Immature Granulocytes # (auto) 0.09 K/uL (0.00-0.02); Immature Granulocytes % (auto) 0.7 %; Lymphocytes # (auto) 1.06 K/uL (1.2-3.4); Lymphocytes % (auto) 8.2 %; Mean Corpuscular Hemoglobin 29.6 pg (25-34); Mean Corpuscular Hgb Conc 30.8 g/dL (32-36); Mean Corpuscular Volume 96.1 fL (80-100); Mean Platelet Volume 11.4 fL (7.4-10.4); Monocytes % (auto) 5.4 %; Neutrophils # (auto) 10.63 K/uL (1.4-6.5); Neutrophils % (auto) 82.3 %; Platelet Count 486 K/uL (130-400); RDW Coefficient of Variation 25.8 % (11.5-14.5); RDW Standard Deviation 85.7 fL (36.4-46.3); Red Blood Count 3.07 M/uL (4.2-5.4); White Blood Count 12.91 K/uL (4.8-10.8)
[2020-02-05] MEDS: PREGABALIN 75 MG CAP PO SCH ×2 (08:07→21:36)
[2020-02-05 08:32] LABS: BUN Creatinine Ratio 12.6 (10-20); Calcium 8.6 mg/dl (8.5-10.1); Creatinine Clr Calc Pharmacy 38.4 ml/min; Est GFR (African American) 65.3; Est GFR (Non-African American) 56.3; Potassium 4.4 mmol/L (3.5-5.1)
[2020-02-05 08:33] LABS: Anisocytosis Present; Giant Platelets 1+; Schistocytes 1+
[2020-02-05] MEDS: TRAMADOL HCL 50 MG TABLET PO PRN ×2 (11:29→19:31)
[2020-02-05] MEDS: ACETAMINOPHEN 325 MG TAB PO PRN ×2 (11:30→19:31)
--- NOTE | 2020-02-05 11:54 | Hospitalist Progress Note ---
Date of Service February 05, 2020 Assessment & Plan (1) Severe sepsis: initial sepsis was resuscitated and she is through that illness. (2) Pneumonia: Completed course of antibiotics with Levaquin. Feeling well and still requiring some minor oxygen supplementation. (3) Mucoid impaction of bronchi: S/P bronchoscopy. Continue pulmonary toilet. Again, she is doing well from this standpoint. Will continue to encourage and praise quitting tobacco and vaping. (4) Pulmonary nodules: CTA chest 01/23/20 revealed several small pulmonary nodules (5 mm RML, 3 mm RML, 3 mm DEVEN, 4 mm RUL- all stable compared to 12/21/19). CTA chest 01/28/20 demonstrated 1 cm nodule RLL. Smoking history; also has history of breast Ca. Follow-up imaging per guidelines. (5) Pulmonary emboli: CTA chest 01/23/20 demonstrated multiple chronic / subacute pulmonary emboli; repeat CTA 01/27 unchanged. Venous duplex lower extremities 01/28/20 negative for DVT. Probably underlying hypercoagulability (MDS, thrombocytosis). Anticoagulation indicated, but initially postponed due to recent GI bleed from duodenal ulcer and now due to splenic hematoma. Stools heme negative 01/31. Consider anticoagulation in the future when benefits outweigh risks. (6) COPD exacerbation: resolved. Cont home inhalers. (7) Leukocytosis: WBC up to 20,820 on 01/29. Procalcitonin 1.05. Pneumonia seems to be clinically improved. Diarrhea as discussed above. No urinary symptoms. Chest x-ray 01/29 improved. Procalcitonin down to 0.25 by 02/01. Leukocytosis may have been secondary to diarrhea or perhaps splenic infarct / hematoma. Discussed this with the patient. (8) Diarrhea: Pt attributes diarrhea to CT contrast. Stool negative for C diff gene by PCR. Stool culture negative for routine enteric pathogens, but grew many [place]. Started Rx with nystatin. Improvement noted but today reporting 3 loose BMs and diarrhea that won't stop. Imodium PRN. IVF as needed to help avoid dehydration. Push Gatorade or Yesika Chrissie to avoid dehydration. (9) Subcapsular hemorrhage of spleen: Has been experiencing abdominal pain to varying degrees for some time. Diagnosed with duodenal ulcer 12/22. Had C diff colitis in December with sigmoid colitis demonstrated on CT. Experiencing persistent epigastric and left-sided tenderness. Plain films of abdomen 01/29 did not show any acute findings. CT abdomen done on 02/01 demonstrated apparent subcapsular hematoma of spleen which was confirmed by US. No recent trauma. H/H, hemodynamics stable. General Surgery consulted. Observation recommended. Hgb dropped to 7.2 02/02. Hemodynamically stable. Symptoms improved. Repeat US demonstrated stable appearing hematoma. Images sent to [facility] and case reviewed with IR. CT with contrast showed stable splenic infarct / hematoma without active bleeding. No need for any emergent procedures. LUQ pain improved. H/H stable post transfusion. Hemodynamically stable. Continue to monitor. (10) Duodenal ulcer: UGI bleed in December. EGD demonstrated duodenal ulcer. Stool H pylori Ag 01/29 negative. Stools heme negative 01/31. No apparent complications noted on CT's 02/01 or today. Continue PPI. Cont to weigh risks and benefits of anticoagulation moving forward. (11) Myelodysplastic syndrome: Continue hydroxyurea for known h/o ET. Pt has h/o JAK2 mutation darrion crews very high risk for clotting. This has been verbally told to her and she verbalized understanding of this risk weighed out with holding anticoagulation in the setting of bleeding. She is fine with continuing to hold anticoagulation at this time. Strongly encourage to quit smoking. Will reconnect with Dr. Chavez in Oncology regarding starting Eliquis in setting of new hematoma. (12) Anemia: Secondary to MDS + recent UGI bleed +recent splenic hematoma H/H stable after receiving 2 Units of PRBCs. (13) CKD (chronic kidney disease), stage III: at baseline. Cont to avoid nephrotoxic substances such as recent contrast administration if can be avoided. Encourage PO hydration in the setting of diarrhea. Monitor PRN. (14) Vapes nicotine containing substance: Cessation advised. Cont Nicoderm. (15) DVT prophylaxis: Low dose enoxaparin ordered earlier in hospital stay. No anticoagulants at this time due to splenic hematoma. SCD's and TEDS ordered- patient refused. Ambulate as tolerated. Full Code Dispo-to home when patient feeling improved. Recently evaluated by PT and felt ok to return home. She lives with her daughter. Desiree Cason, DO Admission and Anticipated Discharge Date Admission Date: January 23, 2020 Subjective Pt states her breathing is improved today. She is still wearing supplemental oxygen. She denies abdominal pain but doesn't feel 100%. She reports 3 BMs that were loose this morning after recent IV contrast administration, known to be an issue for her in the past. She denies any blood per rectum. She reports apathy to food in general. Review of Systems Review of Systems: All systems reviewed & are unremarkable except as noted in Subjective Physical Exam Physical Exam: CONSTITUTIONAL: thin, vitals as above, generally well- appearing EYES: no scleral icterus ENT: external ear and nose normal NECK: trachea midline RESPIRATORY: clear to auscultation throughout with some minor intermittent rhonchi on the LLL area posteriorly. Normal respiratory effort. CARDIOVASCULAR: regular rate and rhythm, S1 and 2 heard without murmurs, gallops or rubs, no JVD, no peripheral edema GASTROINTESTINAL: soft, nontender, nondistended MUSCULOSKELETAL: 5/5 throughout, head is normocephalic and atraumatic SKIN: warm and dry NEUROLOGIC: CN 2-12 grossly intact, no sensory deficit, normal cognition, normal speech, no gross focal deficit. PSYCHIATRIC: alert cooperative and oriented to person, place and time. Results & Data Results & Data ([facility]) Vital Signs (Past 12 Hours) Vital Signs Temp Pulse Pulse Pulse Resp BP BP 02/05/20 10:26 02/05/20 08:13 37.1 C 99 H 18 133/84 02/05/20 07:14 88 02/05/20 03:19 76 02/05/20 01:24 36.4 C L 76 18 95/63 L Pulse Ox Pulse Ox 02/05/20 10:26 91 02/05/20 08:13 89 L 02/05/20 07:14 02/05/20 03:19 02/05/20 01:24 95 Laboratory Results Short CBC 02/05/20 Range/Units 07:23 WBC 12.91 H (4.8-10.8) K/uL Hgb 9.1 L (12.0-16.0) g/dL Hct 29.5 L (37-47) % Plt Count 486 H (130-400) K/uL BMP 02/05/20 06:53 Sodium 138 Potassium 4.4 Chloride 105 Carbon Dioxide 29 BUN 12 Creatinine 0.97 Glucose 81 Calcium 8.6 Medications Administered Current Inpatient Medications Acetaminophen (Tylenol) 650 mg PO Q4H PRN PRN Reason: Pain or Fever Stop: 02/22/20 18:08 Last Admin: 02/05/20 11:30 Dose: 650 mg Documented by: Al Hydrox/Mg Hydrox/Simethicone (Maalox) 15 ml PO Q4H PRN PRN Reason: Dyspepsia Stop: 02/22/20 18:08 Albuterol (Ventolin Hfa) 2 puffs INH Q6H PRN PRN Reason: SOB/wheezing Stop: 02/26/20 09:29 Albuterol (Duoneb) 3 ml NEB QIDR PRN PRN Reason: SOB/wheezing Stop: 02/22/20 18:08 Last Admin: 01/30/20 21:01 Dose: 3 ml Documented by: Amitriptyline HCl (Elavil) 75 mg PO [facility] Stop: 02/22/20 20:59 Last Admin: 02/04/20 20:04 Dose: 75 mg Documented by: Benzonatate (Tessalon Perle) 100 mg PO TID PRN PRN Reason: Cough Stop: 02/25/20 21:28 Last Admin: 01/26/20 23:16 Dose: 100 mg Documented by: Diphenhydramine HCl (Benadryl Capsule) 25 mg PO Q8H PRN PRN Reason: diarrhea, itching Stop: 02/28/20 11:00 Last Admin: 02/01/20 20:32 Dose: 25 mg Documented by: Fluticasone/Vilanterol (Breo Ellipta 100/25 Mcg Inh) 1 puffs INH QAM [facility] Stop: 02/23/20 08:59 Last Admin: 02/05/20 08:04 Dose: 1 puffs Documented by: Guaifenesin/Codeine Phosphate (Robitussin-Ac Sugar Free) 10 ml PO Q6H PRN PRN Reason: Cough Stop: 02/26/20 13:59 Last Admin: 02/02/20 06:25 Dose: 10 ml Documented by: Hydroxyurea (Hydrea) 500 mg PO [facility] Stop: 02/22/20 20:59 Last Admin: 02/04/20 20:04 Dose: 500 mg Documented by: Ioversol (Optiray 320 100ml) 90 ml IV ONCE PRN PRN Reason: Interaction Checking Stop: 02/07/20 14:43 Last Admin: 02/03/20 14:45 Dose: 90 ml Documented by: Loperamide HCl (Imodium) 2 mg PO UD PRN PRN Reason: Diarrhea Stop: 02/27/20 09:58 Last Admin: 02/01/20 18:37 Dose: 2 mg Documented by: Magnesium Hydroxide (Milk Of Magnesia) 30 ml PO Q12H PRN PRN Reason: Constipation Stop: 02/22/20 18:08 Magnesium Oxide (Mag-Ox) 400 mg PO QPM [facility] Stop: 02/22/20 20:59 Last Admin: 02/04/20 20:03 Dose: 400 mg Documented by: Miscellaneous (Remove Nicoderm Patch) 1 ea N/A DAILY@0859 [facility] Stop: 02/27/20 08:58 Last Admin: 02/05/20 08:04 Dose: 1 ea Documented by: Nicotine (Nicoderm Cq) 21 mg TD [facility]AM [facility] Stop: 02/26/20 17:29 Last Admin: 02/05/20 08:01 Dose: 21 mg Documented by: Nystatin (Mycostatin) 5 ml PO QID [facility] Stop: 02/09/20 12:59 Last Admin: 02/05/20 08:03 Dose: 5 ml Documented by: Ondansetron HCl (Zofran) 4 mg IV Q6H PRN PRN Reason: Nausea Stop: 02/22/20 18:08 Last Admin: 02/01/20 20:34 Dose: 4 mg Documented by: Pantoprazole Sodium (Protonix) 40 mg PO BID [facility] Stop: 02/22/20 20:59 Last Admin: 02/05/20 08:01 Dose: 40 mg Documented by: Polyethylene Glycol (Miralax Powder Packet) 17 gm PO DAILY PRN PRN Reason: Constipation Stop: 02/22/20 18:08 Pregabalin (Lyrica) 75 mg PO BID [facility] Stop: 02/22/20 20:59 Last Admin: 02/05/20 08:07 Dose: 75 mg Documented by: Temazepam (Restoril) 30 mg PO HS PRN PRN Reason: Sleep Stop: 02/22/20 18:08 Last Admin: 02/04/20 20:03 Dose: 30 mg Documented by: Tramadol HCl (Ultram) 50 - 100 mg PO Q6H PRN PRN Reason: pain or headache Stop: 06/20/20 18:08 Last Admin: 02/05/20 11:29 Dose: 100 mg Documented by: Trazodone HCl (Desyrel) 50 mg PO HS [facility] Stop: 02/22/20 20:59 Last Admin: 02/04/20 20:07 Dose: 50 mg Documented by: Umeclidinium [place] (Incruse Ellipta) 1 puffs INH QAM [facility] Stop: 02/23/20 08:59 Last Admin: 02/05/20 08:04 Dose: 1 puffs Documented by: (1) 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
[2020-02-05] MEDS ORDERED: LOPERAMIDE HCL 2 MG CAP PO STA (12:07)
[2020-02-05] MEDS ORDERED: LOPERAMIDE HCL 2 MG CAP PO PRN (12:08)
[2020-02-05] MEDS: ONDANSETRON INJ 2 MG/ML 2 ML VIAL IV PRN (16:14)
[2020-02-05] MEDS: TEMAZEPAM 15 MG CAPSULE PO PRN (20:08)
[2020-02-05] MEDS: AMITRIPTYLINE HCL 25 MG TAB PO SCH (20:09)
[2020-02-05] MEDS: HYDROXYUREA 500 MG CAP PO SCH (20:09)
[2020-02-05] MEDS: MAGNESIUM OXIDE 400 MG TAB PO SCH (20:10)
[2020-02-05] MEDS: TRAZODONE HCL 50 MG TAB PO SCH (21:36)
[2020-02-06] MEDS: PANTOprazole 40 MG TAB PO SCH ×2 (08:47→19:59)
[2020-02-06] MEDS: NYSTATIN SUSP 500,000 U/5 ML UDC PO SCH ×4 (08:47→19:59)
[2020-02-06] MEDS: NICOTINE 21 MG/24 HR TDSY TD SCH (08:47)
[2020-02-06] MEDS: UMECLIDINIUM BROMIDE 62.5MCG/BLISTER 7 PUFFS/INHALER INH SCH (08:48)
[2020-02-06] MEDS: FLUTICASONE/VILANTEROL 100/25MCG 14 PUFFS/INHALER INH SCH (08:48)
[2020-02-06] MEDS: PREGABALIN 75 MG CAP PO SCH ×2 (08:53→19:59)
[2020-02-06 09:06] LABS: Hematocrit (blood only) 30.4 % (37-47); Hemoglobin 9.4 g/dL (12.0-16.0); Mean Corpuscular Hemoglobin 29.7 pg (25-34); Mean Corpuscular Hgb Conc 30.9 g/dL (32-36); Mean Corpuscular Volume 96.2 fL (80-100); Platelet Count 478 K/uL (130-400); RDW Coefficient of Variation 25.3 % (11.5-14.5); RDW Standard Deviation 87.5 fL (36.4-46.3); Red Blood Count 3.16 M/uL (4.2-5.4); White Blood Count 8.65 K/uL (4.8-10.8)
[2020-02-06] MEDS ORDERED: NAPHAZOLIN/PHENIRAMIN OPH SOLN 75 DROPS/5 ML BTL OPL PRN (10:27)
--- NOTE | 2020-02-06 10:37 | Hospitalist Progress Note ---
Date of Service February 06, 2020 Assessment & Plan (1) Abdominal discomfort: Nonspecific abdominal discomfort with nausea and apathy to food. Severe weight loss present this admission already. Etiologies include but not limited to complication of known duodenal ulcer, recent splenic infarction with subcapsular hematoma, persistent diarrhea after contrast administration multiple times this admission, ileus. KUB to evaluate for A/F levels or evidence of gas. Contacted GI to re-evaluate. Surgery has recommended observation regarding the spleen, but will touch base with them for her persistent symptoms to consider re-evaluation. Cont supportive care efforts with antiemetics, unrestricted diet (min dairy in setting of severe diarrhea), diet supplements, etc. Cont Protonix BID. (2) Allergic conjunctivitis: Visine eye drops PRN. Benadryl PRN. (3) Severe protein-calorie malnutrition: Lost 5kg this admission. Nutrition following and will reassess with new recs today. Cont to encourage PO intake. GI asked to re-evaluate today with h/o recent duodenal ulcer one month ago. Daily weights. (4) Decubitus ulcer, stage II: Wound care has seen the patient. Nursing aware and treating. Patient encouraged to turn frequently. Cont to make strides to augment her nutrition and ambulation. (5) Duodenal ulcer: UGI bleed in December. EGD demonstrated duodenal ulcer. Stool H pylori Ag 01/29 negative. Stools heme negative 01/31. No apparent complications noted on CT's 02/01 or today. Continue PPI. Cont to weigh risks and benefits of anticoagulation moving forward. (6) Subcapsular hemorrhage of spleen: Has been experiencing abdominal pain to varying degrees for some time. Diagnosed with duodenal ulcer 12/22. Had C diff colitis in December with sigmoid colitis demonstrated on CT. Experiencing persistent epigastric and left-sided tenderness. Plain films of abdomen 01/29 did not show any acute findings. CT abdomen done on 02/01 demonstrated apparent subcapsular hematoma of spleen which was confirmed by US. No recent trauma. H/H, hemodynamics stable. General Surgery consulted. Observation recommended. Hgb dropped to 7.2 02/02. Hemodynamically stable. Symptoms improved. Repeat US demonstrated stable appearing hematoma. Images sent to [facility] and case reviewed with IR. CT with contrast showed stable splenic infarct / hematoma without active bleeding. No need for any emergent procedures. LUQ pain improved. H/H stable post transfusion. Hemodynamically stable. Continue to monitor. (7) Diarrhea: Pt attributes diarrhea to CT contrast. Stool negative for C diff gene by PCR. Stool culture negative for routine enteric pathogens, but grew many [place]. Started Rx with nystatin but patient is refusing so will stop this now. She is overall improved. Cont Imodium PRN. IVF as needed to help avoid dehydration. Push Gatorade or Yesika Chrissie to avoid dehydration. (8) Severe sepsis: initial sepsis was resuscitated and she is through that illness. (9) Pneumonia: Completed course of antibiotics with Levaquin. Feeling well and still requiring some minor oxygen supplementation. (10) Mucoid impaction of bronchi: S/P bronchoscopy. Continue pulmonary toilet. Again, she is doing well from this standpoint. Will continue to encourage and praise quitting tobacco and vaping. (11) Pulmonary nodules: CTA chest 01/23/20 revealed several small pulmonary nodules (5 mm RML, 3 mm RML, 3 mm DEVEN, 4 mm RUL- all stable compared to 12/21/19). CTA chest 01/28/20 demonstrated 1 cm nodule RLL. Smoking history; also has history of breast Ca. Follow-up imaging per guidelines. (12) Pulmonary emboli: CTA chest 01/23/20 demonstrated multiple chronic / subacute pulmonary emboli; repeat CTA 01/27 unchanged. Venous duplex lower extremities 01/28/20 negative for DVT. Probably underlying hypercoagulability (MDS, thrombocytosis). Anticoagulation indicated, but initially postponed due to recent GI bleed from duodenal ulcer and now due to splenic hematoma. Stools heme negative 01/31. Consider anticoagulation in the future when benefits outweigh risks. (13) COPD exacerbation: resolved. Cont home inhalers. (14) Leukocytosis: WBC up to 20,820 on 01/29. Procalcitonin 1.05. Pneumonia seems to be clinically improved. Diarrhea as discussed above. No urinary symptoms. Chest x-ray 01/29 improved. Procalcitonin down to 0.25 by 02/01. Leukocytosis may have been secondary to diarrhea or perhaps splenic infarct / hematoma. Discussed this with the patient. (15) Myelodysplastic syndrome: Continue hydroxyurea for known h/o ET. Pt has h/o JAK2 mutation darrion crews very high risk for clotting. This has been verbally told to her and she verbalized understanding of this risk weighed out with holding anticoagulation in the setting of bleeding. She is fine with continuing to hold anticoagulation at this time. Strongly encourage to quit smoking. Will reconnect with Dr. Chavez in Oncology regarding starting Eliquis in setting of new hematoma. (16) Anemia: Secondary to MDS + recent UGI bleed +recent splenic hematoma H/H stable after receiving 2 Units of PRBCs. (17) CKD (chronic kidney disease), stage III: at baseline. Cont to avoid nephrotoxic substances such as recent contrast administration if can be avoided. Encourage PO hydration in the setting of diarrhea. Monitor PRN. (18) Vapes nicotine containing substance: Cessation advised. Cont Nicoderm. (19) DVT prophylaxis: Low dose enoxaparin ordered earlier in hospital stay. No anticoagulants at this time due to splenic hematoma. SCD's and TEDS ordered- patient refused. Ambulate as tolerated. Full Code Dispo-to home when patient feeling improved. Recently evaluated by PT and felt ok to return home. She lives with her daughter. Desireelashon Cason, DO Admission and Anticipated Discharge Date Admission Date: January 23, 2020 Subjective Feels improved but still not quite right. Feels she may need to transition to a rehab program on way home as she doesn't feel strong enough to go straight home. She is concerned about burdening her daughter too much She reports nausea and apathy to food, which has been consistent over the last couple of days. She is reporting not eating as much as she does at home She denies abdominal pain, blood per rectum, vomiting blood. She reports some persistent productive cough but overall breathing is improved Eye itching and erythema on the left eye present today. Review of Systems Review of Systems: All systems reviewed & are unremarkable except as noted in Subjective Physical Exam Physical Exam: CONSTITUTIONAL: thin, vitals as above, generally well- appearing EYES: no scleral icterus, injected conjunctiva on the left without drainage or crusting present. No surrounding erythema. ENT: external ear and nose normal NECK: trachea midline RESPIRATORY: clear to auscultation throughout with normal respiratory effort. CARDIOVASCULAR: regular rate and rhythm, S1 and 2 heard without murmurs, gallops or rubs, no JVD, no peripheral edema GASTROINTESTINAL: soft, mild tenderness to palpation with some guarding in epigastric and LUQ areas, nondistended MUSCULOSKELETAL: weak, deconditioned, no gross focal deficits, head is normocephalic and atraumatic SKIN: warm and dry NEUROLOGIC: CN 2-12 grossly intact, no sensory deficit, normal cognition, normal speech, no gross focal deficit. PSYCHIATRIC: alert cooperative and oriented to person, place and time. Results & Data Results & Data ([facility]) Vital Signs (Past 12 Hours) Vital Signs Temp Pulse Pulse Pulse Resp BP BP 02/06/20 07:44 37.2 C 87 18 118/71 02/06/20 07:42 83 02/06/20 03:00 36.9 C 79 20 105/62 02/06/20 00:00 86 02/05/20 23:00 37 C 89 20 118/70 Pulse Ox 02/06/20 07:44 96 02/06/20 07:42 02/06/20 03:00 92 02/06/20 00:00 02/05/20 23:00 92 Laboratory Results Short CBC 02/06/20 Range/Units 08:01 WBC 8.65 (4.8-10.8) K/uL Hgb 9.4 L (12.0-16.0) g/dL Hct 30.4 L (37-47) % Plt Count 478 H (130-400) K/uL Medications Administered Current Inpatient Medications Acetaminophen (Tylenol) 650 mg PO Q4H PRN PRN Reason: Pain or Fever Stop: 02/22/20 18:08 Last Admin: 02/05/20 19:31 Dose: 650 mg Documented by: Albuterol (Ventolin Hfa) 2 puffs INH Q6H PRN PRN Reason: SOB/wheezing Stop: 02/26/20 09:29 Albuterol (Duoneb) 3 ml NEB QIDR PRN PRN Reason: SOB/wheezing Stop: 02/22/20 18:08 Last Admin: 01/30/20 21:01 Dose: 3 ml Documented by: Amitriptyline HCl (Elavil) 75 mg PO HS [facility] Stop: 02/22/20 20:59 Last Admin: 02/05/20 20:09 Dose: 75 mg Documented by: Benzonatate (Tessalon Perle) 100 mg PO TID PRN PRN Reason: Cough Stop: 02/25/20 21:28 Last Admin: 01/26/20 23:16 Dose: 100 mg Documented by: Diphenhydramine HCl (Benadryl Capsule) 25 mg PO Q8H PRN PRN Reason: diarrhea, itching Stop: 02/28/20 11:00 Last Admin: 02/01/20 20:32 Dose: 25 mg Documented by: Fluticasone/Vilanterol (Breo Ellipta 100/25 Mcg Inh) 1 puffs INH QAM [facility] Stop: 02/23/20 08:59 Last Admin: 02/06/20 08:48 Dose: 1 puffs Documented by: Hydroxyurea (Hydrea) 500 mg PO HS [facility] Stop: 02/22/20 20:59 Last Admin: 02/05/20 20:09 Dose: 500 mg Documented by: Ioversol (Optiray 320 100ml) 90 ml IV ONCE PRN PRN Reason: Interaction Checking Stop: 02/07/20 14:43 Last Admin: 02/03/20 14:45 Dose: 90 ml Documented by: Loperamide HCl (Imodium) 2 mg PO UD PRN PRN Reason: Diarrhea Stop: 03/06/20 12:07 Magnesium Oxide (Mag-Ox) 400 mg PO QPM [facility] Stop: 02/22/20 20:59 Last Admin: 02/05/20 20:10 Dose: 400 mg Documented by: Miscellaneous (Remove Nicoderm Patch) 1 ea N/A DAILY@0859 [facility] Stop: 02/27/20 08:58 Last Admin: 02/06/20 08:49 Dose: 1 ea Documented by: Naphazoline HCl/Pheniramine Maleate (Visine-A) 2 drops OPL QID PRN PRN Reason: Allergic Symptoms Stop: 03/07/20 10:26 Nicotine (Nicoderm Cq) 21 mg TD [facility] Stop: 02/26/20 17:29 Last Admin: 02/06/20 08:47 Dose: 21 mg Documented by: Nystatin (Mycostatin) 5 ml PO QID [facility] Stop: 02/09/20 12:59 Last Admin: 02/06/20 08:47 Dose: 5 ml Documented by: Ondansetron HCl (Zofran) 4 mg IV Q6H PRN PRN Reason: Nausea Stop: 02/22/20 18:08 Last Admin: 02/05/20 16:14 Dose: 4 mg Documented by: Pantoprazole Sodium (Protonix) 40 mg PO BID [facility] Stop: 02/22/20 20:59 Last Admin: 02/06/20 08:47 Dose: 40 mg Documented by: Polyethylene Glycol (Miralax Powder Packet) 17 gm PO DAILY PRN PRN Reason: Constipation Stop: 02/22/20 18:08 Pregabalin (Lyrica) 75 mg PO BID [facility] Stop: 02/22/20 20:59 Last Admin: 02/06/20 08:53 Dose: 75 mg Documented by: Temazepam (Restoril) 30 mg PO HS PRN PRN Reason: Sleep Stop: 02/22/20 18:08 Last Admin: 02/05/20 20:08 Dose: 30 mg Documented by: Tramadol HCl (Ultram) 50 - 100 mg PO Q6H PRN PRN Reason: pain or headache Stop: 02/22/20 18:08 Last Admin: 02/05/20 19:31 Dose: 100 mg Documented by: Trazodone HCl (Desyrel) 50 mg PO HS [facility] Stop: 02/22/20 20:59 Last Admin: 02/05/20 21:36 Dose: Not Given Documented by: Umeclidinium [place] (Incruse Ellipta) 1 puffs INH QAM [facility] Stop: 02/23/20 08:59 Last Admin: 02/06/20 08:48 Dose: 1 puffs Documented by: (1) Pneumonia Laterality: left Lung location: lower lobe of lung Pneumonia type: due to unspecified organism Qualified Code(s): J18.9 - Pneumonia, unspecified organism (2) 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
[2020-02-06] MEDS: ONDANSETRON 4 MG OD TAB PO PRN ×2 (11:04→19:53)
--- NOTE | 2020-02-06 11:15 | XRay Report ---
XR KUB/Abdomen 1 view CLINICAL HISTORY: persistent nausea, abdominal discomfort COMPARISON STUDY: 01/30/2020 FINDINGS: There is no pathologic bowel dilatation. There are surgical clips within the right upper qu adrant consistent with a prior cholecystectomy. There is stable slight sclerosis of the right inferio r pubic ramus. There are postsurgical changes of a total left hip arthroplasty. Left hemidiaphragm is obscured raising the possibility of left lower lobe atelectasis/consolidation IMPRESSION: Nonobstructive bowel gas pattern. ACT 112: Negative or not required by law. Electronically signed by: Sher Lira M.D. 02/06/2020 11:14 AM
--- NOTE | 2020-02-06 11:48 | Surgery Progress Note ---
Date of Service February 06, 2020 Assessment & Plan (1) Subcapsular hemorrhage of spleen: We have been consulted on 02/01 as patient found to have a subcapsular splenic hematoma - Repeat imaging has shown that the hematoma is not expanding - Pt received 1u blood on 02/02 and since then Hbg has been stable in the 9's - Pt's nausea and abdominal pain are overall improving, but she may have continued symptoms over the next couple of months. Some of this may be related to her duodenal ulcer as well. We recommend starting carafate to see if this helps - She is at risk of bleed from ulcer and splenic hematoma if anticoagulation resumed, would recommend waiting at least 4 weeks if able pending risk/benefits of holding it - Please let us know if we can be of further assistance during patient's admission Subjective Patient seen resting in bed. States her abdominal pain is improving. She has some nausea still that she is receiving some anti-emetics for, but believes it is overall better. Regarding her food apathy she says she just doesn't have much of an appetite and that it's not related to her pain/nausea. She says her daughter is a cook chef and the food here is not the same. Physical Exam Physical Exam: awake/alert Gastrointestinal (Abdomen): Inspection/Auscultation: abdomen not distended Percussion/Palpation: + abdomen tender (some ttp in the left abdomen/flank region) and abdomen soft Results & Data Vital Signs (Past 12 Hours) Vital Signs Temp Pulse Pulse Pulse Resp BP BP 02/06/20 11:15 37.2 C 75 18 106/66 02/06/20 07:44 37.2 C 87 18 118/71 02/06/20 07:42 83 02/06/20 03:00 36.9 C 79 20 105/62 02/06/20 00:00 86 Pulse Ox 02/06/20 11:15 93 02/06/20 07:44 96 02/06/20 07:42 02/06/20 03:00 92 02/06/20 00:00 PG Care Time/CCT Total # of Minutes Spent Total Time Spent with Patient: Total time spent is greater than 50% in coordination of care (as documented) at patient's floor/unit and/or counseling patient: Coding Level of Care Code 73054 Subseq Hosp Care Lvl 1 Diagnoses Subcapsular hemorrhage of spleen D73.89
[2020-02-06] MEDS: SUCRALFATE 1 GM/10 ML UDC PO SCH ×3 (14:31→19:59)
--- NOTE | 2020-02-06 15:50 | Gastrointestinal Consultation ---
Date of Consultation February 06, 2020 Assessment & Plan (1) Poor appetite: 79 y/o female pt know to GI with h/o IBS-D, chronic diarrhea related to hydroxyurea use, duodenal ulcer on EGD 12/23/19, admitted 2 weeks ago with sepsis/pneumonia, found to have splenic infarct with 10 cm subscapular hematoma, subacute/chronic PE's on CTA, and GI consulted for poor appetite, nausea, apathy to food. Multiple CTs chest/abd/pelvis without obvious malignant etiology. Pt tells me she just prefers her daughter's cooking over hospital food (daughter is a chef passenger vessel), but notes that she's had chronic symptoms of nausea, GI upset, poor appetite. Labs including H&H are stable and she's without obvious GIB. Unclear of exact etiology of her symptoms though perhaps it is multifactorial; with chronic illness, underlying GI issues including IBS, prolonged hospital stay with recent illness including sepsis, and pt admitting she is "the pickiest eater in the [place]," preferring her daughter's cooking. - With her h/o duodenal ulcer recommend continue on PPI BID - Will add carafate susp QID to see if her symptoms can improve at all - Advised pt to be liberal in her food intake as her appetite allows - Would keep outpt appt with EGD next month; would defer EGD this admission as it would be contraindicated with presence of large splenic hematoma Thank you for allowing us to participate in the care of this patient. Please call with any acute changes, questions or concerns. Please see addendum below with additional recommendation from my supervising physician. (2) Duodenal ulcer: Supervising Physician Co-Signing Physician Notes I performed a history and physical examination of the patient today, including specifically on physical exam - soft abdomen. I have discussed the patient's management with the advanced practitioner. Please refer to the nurse practitioner's note for the documented findings and plan of care. Patient with known IBS, now with poor appetite, no vomiting to suggest obstruction. I would add Carafate. Diet as tolerated. She will continue follow up with me as OP. Recall GI as needed. History of Present Illness Reason for Consultation: persistent nausea, apathy to food, recent PUD Attending Physician: Desiree Cason, DO History of Present Illness Pt is a 79 y/o female known to our clinic for IBS-D, chronic diarrhea, furthered by hydroxyurea, PUD, CKD, COPD, GERD, MDS, who was admitted here 2 weeks ago for sepsis/pneumonia, and GI consulted today for poor appetite, persistent nausea. She's had a prolonged stay related to splenic infarction with 10 cm subcapsular hematoma of spleen which is stable on imaging, chronic/subacute PE's, possible hypercoagulable state related to MDS/ thrombocytosis for which she takes hydroxyurea. H&H stable; she's had no GIB; no melena, hematochezia, hematemesis. Recently had EGD 12/23/19 with large duodenal ulcer and nonsevere esophagitis, for which she is tx with PPI and has repeat EGD scheduled for March 2020. She relays that she chronically has poor appetite that is worsened here in the hospital, chronic nausea, and loose stools, chronic abd discomfort along, weight loss of approx 20 lbs within the last few years and worsened this admission, along with chronic dysphagia to solids. She tells me she is "the pickiest eater in the [place]," and prefers her daughter's cooking (daughter is a chef passenger vessel). She was evaluated by speech pathology while here, underwent video swallow 01/24/20 demonstrating eventual trace silent tracheal aspiration with thin liquids and nectar thick liquids. No aspiration with pudding consistency. She tolerated egg salad sandwich for lunch. Denies abd pain, bloating, vomiting, post-prandial abd pain, gas. She's had multiple CTs of the abd, chest in the last 2 months without obvious source of weight loss (i.e. malignancy), though she does have some pulmonary nodules and is a former smoker. Allergies Allergy/AdvReac Type Severity Reaction Status Date / Time latex Allergy Intermediate HIVES Verified 01/23/20 09:47 nickel Allergy Intermediate Hives/Itchi Verified 01/23/20 09:47 ness Iodinated Contrast Media AdvReac Mild Diarrhea Verified 01/23/20 09:47 [Iodinated Contrast- Oral and IV Dye] Lobster Allergy Severe HIVES Uncoded 01/23/20 09:47 Home Medications Home Medications Medication Instructions Recorded Confirmed Type hydroxyurea [Hydrea] 500 mg PO HS 06/06/18 01/23/20 History pantoprazole [Protonix] 40 mg PO BID 06/06/18 01/23/20 History pregabalin [Lyrica] 75 mg PO BID 06/06/18 01/23/20 History temazepam [Restoril] 30 mg PO HS PRN 06/06/18 01/23/20 History Spiriva with HandiHaler 1 cap INHALATION QAM 12/17/19 01/23/20 History albuterol sulfate 2.5 mg INHALATION Q4H PRN 12/17/19 01/23/20 History albuterol sulfate [Ventolin HFA] 2 puff INHALATION QID PRN 12/17/19 01/23/20 History amitriptyline 75 mg PO HS 12/17/19 01/23/20 History fluticasone propion-salmeterol 1 inh INHALATION BID 12/17/19 01/23/20 History loperamide 2 mg PO Q4H PRN 12/17/19 01/23/20 History olopatadine 1 drp OPB BID PRN 12/17/19 01/23/20 History trazodone 50 mg PO HS 12/17/19 01/23/20 History tramadol 50 mg PO BID PRN #10 tab 12/30/19 01/23/20 Rx acetaminophen [Tylenol] 325 mg PO QID PRN 01/23/20 01/23/20 History Patient History Medical History Anemia (Chronic) CKD (chronic kidney disease), stage III (Chronic) COPD (chronic obstructive pulmonary disease) (Chronic) Essential thrombocythemia (Chronic) History of breast cancer (Chronic) History of MRSA infection (Chronic) "left hip wound" History of peptic ulcer disease (Chronic) IBS (irritable bowel syndrome) (Chronic) Diarrhea predominant ; follows with GI Leukocytosis (Chronic) 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) Myelodysplastic syndrome (Chronic) Myelodysplastic syndrome (Chronic) Pelvic fracture Pulmonary emboli Pulmonary nodules CT 01/23/20: 5 mm RML 3 mm RML 3 mm DEVEN 4 mm RUL S/P ORIF (open reduction internal fixation) fracture (Chronic) Thrombocytosis (Chronic) Surgical History H/O mastectomy (Chronic) modified radical masectomy H/O: hysterectomy (Chronic) History of cholecystectomy (Chronic) Status post hysterectomy (Chronic) Status post mastectomy (Chronic) "modified right mastectomy 1990" Status post total hip replacement, left (Chronic) Family History Other Unknown family medical history Social History Preferred Language: Vincentian Communication Ability: Effective 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 Beliefs That Will Affect Care: None marital status: / Current Living Situation: Family Other Information That Helps Us Care for You: No Feels Safe at Home: Yes Safety Concerns: Feels Safe At This Time Smoking Status: Current some day smoker (Vaping) Tobacco Type: cigarettes ; packs per day: 1 ; Years Smoked: 50 ; Cigarettes Per Day: 20 ; Do You Dip or Chew Tobacco: No ; Second Hand Exposure: No ; Tobacco Cessation Education Requested by Patient: No Hx Alcohol Use: No Hx Substance Use: No Review of Systems Constitutional: no fever and no chills Respiratory: no cough and no dyspnea Cardiovascular: no chest pain, no dyspnea and no edema Gastrointestinal: as per Subjective / HPI Genitourinary: no dysuria Integumentary: decubitus ulcer Hematologic / Lymphatic: no easy bleeding, no easy bruising, no coagulopathy and no night sweats Physical Exam Constitutional: no acute distress thin, chronically ill Respiratory: normal respiratory effort, lungs clear to auscultation Cardiovascular: Rate/Rhythm: regular rate and regular rhythm Gastrointestinal (Abdomen): Inspection/Auscultation: abdomen normal to inspection and normal bowel sounds; abdomen not distended Percussion/Palpation: abdomen soft; abdomen nontender prominence over the LUQ (splenic hematoma?) Skin: no rashes, warm and dry no jaundice Psychiatric: A+Ox3, euthymic affect Results & Data ([facility]) Vital Signs (Past 12 Hours) Vital Signs Temp Pulse Pulse Resp BP Pulse Ox 02/06/20 11:15 37.2 C 75 18 106/66 93 02/06/20 07:44 37.2 C 87 18 118/71 96 02/06/20 07:42 83 Laboratory Results 02/06/20 Range/Units 08:01 WBC 8.65 (4.8-10.8) K/uL RBC 3.16 L (4.2-5.4) M/uL Hgb 9.4 L (12.0-16.0) g/dL Hct 30.4 L (37-47) % MCV 96.2 (80-100) fL MCH 29.7 (25-34) pg MCHC 30.9 L (32-36) g/dL RDW Std Deviation 87.5 H (36.4-46.3) fL RDW Coeff of Radha 25.3 H (11.5-14.5) % Plt Count 478 H (130-400) K/uL MPV 12.0 H (7.4-10.4) fL
[2020-02-06] MEDS ORDERED: SUCRALFATE 1 GM/10 ML UDC PO SCH (17:00)
[2020-02-06] MEDS: HYDROXYUREA 500 MG CAP PO SCH (19:59)
[2020-02-06] MEDS: MAGNESIUM OXIDE 400 MG TAB PO SCH (19:59)
[2020-02-06] MEDS: AMITRIPTYLINE HCL 25 MG TAB PO SCH (19:59)
[2020-02-06] MEDS: TRAZODONE HCL 50 MG TAB PO SCH (19:59)
[2020-02-06] MEDS: TRAMADOL HCL 50 MG TABLET PO PRN (20:12)
[2020-02-06] MEDS: ACETAMINOPHEN 325 MG TAB PO PRN (20:13)
[2020-02-06] MEDS: TEMAZEPAM 15 MG CAPSULE PO PRN (21:44)
[2020-02-07] MEDS: PREGABALIN 75 MG CAP PO SCH (08:04)
[2020-02-07] MEDS: PANTOprazole 40 MG TAB PO SCH (08:04)
[2020-02-07] MEDS: SUCRALFATE 1 GM/10 ML UDC PO SCH ×3 (08:05→18:37)
[2020-02-07] MEDS: NYSTATIN SUSP 500,000 U/5 ML UDC PO SCH ×4 (08:05→18:38)
[2020-02-07] MEDS: FLUTICASONE/VILANTEROL 100/25MCG 14 PUFFS/INHALER INH SCH (08:06)
[2020-02-07] MEDS: NICOTINE 21 MG/24 HR TDSY TD SCH (08:07)
[2020-02-07] MEDS: UMECLIDINIUM BROMIDE 62.5MCG/BLISTER 7 PUFFS/INHALER INH SCH (08:59)
--- NOTE | 2020-02-07 14:40 | Discharge Summary ---
Date of Service February 07, 2020 Admission HPI Per Admitting Provider This is a 79-year-old female who has significant past medical history of COPD, tobacco abuse, MDS, essential thrombocytosis, Duodenal ulcer dx 12/23/19, GERD, history of PUD, Diastolic CHF, depression, anxiety, history of right breast cancer s/p masectomy who presents to [facility] ED from home secondary to ill feeling and SOB. Patient states she was awoken abruptly this morning secondary to acute onset shortness of breath. Of significance patient was hospitalized on 12/16/26 secondary to syncope, melena and anemia. She underwent EGD which revealed duodenal ulcer requiring IV PPI and eventual oral PPI twice daily. She did require 5 units PRBC. Also noted during that admission was an acute left inferior pubic ramus fracture in which she was seen in appointment per orthopedics. She was placed on partial weightbearing of the left lower extremity. She was also treated with IV Rocephin for UTI. She was discharged with home health services and has been followed by [facility] at home. She was seen on 01/15 and prescribed azithromycin and prednisone due to concern for COPD exacerbation. On 01/21 she please call to PCP due to urinary symptoms and was started on Cipro 250 mg daily -Although has not started. She has been doing well since discharge. She does complain of a chronic cough in setting of her COPD but has noticed over the past 2 days increased in purulent production. In regards to her breathing she states she was doing well until this morning. Last evening she had spaghetti with red sauce and noted that she, "choked on it," "it went down the wrong pipe." She denies any recent f/c/s, dizziness, lightheaded, syncope, hemoptysis, nausea, abdominal pain, diarrhea. She does complain of chest tightness and chest pain on inspiration but denies any exertional chest pain. Further complains of emesis x2 this morning, but no hematemesis, dysuria, increased urgency or frequency with urination ever since recent admission and catheterization. Since being evaluated in ED pt feels her respiratory status has gotten worse and feels she is not getting enough oxygen. Due to increased work in breathing she was placed on BIPAP therapy. Her appetite has been good at home. Denies any weight loss, PND, orthopnea, or edema. Ambulates with walker. Has been full weight bearing with pelvis per patient. Admission Exam Per Admitting Provider Constitutional: Thin, petite, elderly, F, vitals as above, +resp distress, sitting up in bed, pleasant, conversing easily Head: Normocephalic, Atraumatic Eyes: PERRL, conjunctivae normal, anicteric sclerae ENMT: external ear and nose normal, oropharynx normal Neck: trachea midline, no thyromegaly normal visual inspection Respiratory: increased respiratory effort, on nonrebreather, +L Basilar crackles/rhonchi, +tightness, no wheeze noted, otherwise clear. increased insp/exp effort, no accessory muscle use Cardiovascular: tachycardic rate, reg rhythm, no murmur but distant due to increased RR, no edema Vessels: no JVD or carotid bruit Chest: normal inspection of chest Abdomen: normal bowel sounds, soft, nontender, no hepatosplenomegaly Musculoskeletal: no cyanosis or clubbing, extremities motor strength 5/5 Skin: no rashes, warm and dry normal turgor Neurologic: PERRL, EOMI, accommodation nl, no face palsy, no dysarthria CN's II-XI intact bilaterally and moves all extremities Psychiatric: A+Ox3, euthymic affect Lymphatic: no cervical or axillary lymphadenopathy : deferred Principal Diagnosis Abdominal discomfort secondary to duodenal ulcer versus subcapsular splenic hematoma-improved Allergic conjunctivitis Severe protein calorie malnutrition Decubitus ulcer, stage II Severe sepsis secondary to pneumonia with mucoid impaction of bronchi status post bronchoscopy Subcapsular hemorrhage of spleen COPD exacerbation Myelodysplastic syndrome History of vaping nicotine Anemia Subacute pulmonary emboli Discharge Exam CONSTITUTIONAL: thin, vitals as above, generally well-appearing EYES: no scleral icterus, normal conjunctivae ENT: external ear and nose normal NECK: trachea midline RESPIRATORY: clear to auscultation throughout with normal respiratory effort. Requiring small amount supplemental oxygen with no increased respiratory effort or conversational dyspnea. CARDIOVASCULAR: regular rate and rhythm, S1 and 2 heard without murmurs, gallops or rubs, no JVD, no peripheral edema GASTROINTESTINAL: soft, mild tenderness to palpation in epigastric and LUQ areas, improved. nondistended MUSCULOSKELETAL: weak, deconditioned, no gross focal deficits, head is normocephalic and atraumatic SKIN: warm and dry NEUROLOGIC: CN 2-12 grossly intact, no sensory deficit, normal cognition, normal speech, no gross focal deficit. PSYCHIATRIC: alert cooperative and oriented to person, place and time. Discharge Data Allergies Allergy/AdvReac Type Severity Reaction Status Date / Time latex Allergy Intermediate HIVES Verified 01/23/20 09:47 nickel Allergy Intermediate Hives/Itchi Verified 01/23/20 09:47 ness Iodinated Contrast Media AdvReac Mild Diarrhea Verified 01/23/20 09:47 [Iodinated Contrast- Oral and IV Dye] Lobster Allergy Severe HIVES Uncoded 01/23/20 09:47 Consultations 01/23/20 11:43 ED Decision to Admit Stat 01/23/20 18:09 Consult Case Management - Discharge Planning Routine 02/02/20 17:32 Consult General Surgery Routine 02/03/20 12:03 Burn CD for patient Routine 02/06/20 10:23 Consult Gastroenterology Routine Ordered Studies 01/23/20 11:14 CT angio chest PE protocol Stat 01/24/20 10:45 FL video swallow Routine 01/28/20 11:00 CT angio chest PE protocol Urgent 01/28/20 14:30 US venous doppler LE BI Routine 02/02/20 11:18 CT abd pelvis wo con Urgent 02/02/20 13:56 US abdomen limited Urgent 02/03/20 CT abdomen w IV con Stat 02/03/20 09:14 US abdomen limited Urgent Hospital Course (1) Abdominal discomfort: (2) Allergic conjunctivitis: (3) Severe protein-calorie malnutrition: (4) Decubitus ulcer, stage II: (5) Duodenal ulcer: (6) Subcapsular hemorrhage of spleen: (7) Diarrhea: (8) Severe sepsis: (9) Pneumonia: (10) Mucoid impaction of bronchi: (11) Pulmonary nodules: (12) Pulmonary emboli: (13) COPD exacerbation: (14) Leukocytosis: (15) Myelodysplastic syndrome: (16) Anemia: (17) Vapes nicotine containing substance: 79-year-old female was admitted with acute on chronic respiratory failure with hypoxia secondary to pneumonia and mucous plugging in the setting of continued nicotine dependence via vaping. She was admitted to the critical care unit and started on vancomycin Zosyn and Levaquin. Mucoid impaction of the left lower lobe was resolved with bronchoscopy and she was continued on BiPAP temporarily. CT scan of her chest with contrast revealed nonocclusive peripheral pulmonary emboli on the left greater than right favoring chronic pulmonary emboli. Multifocal pneumonia was present with questionable aspiration. Lobular areas of nonocclusive thrombus were seen within the thoracic aorta. Speech pathology was consulted and a video swallow study was performed revealing eventual silent tracheal aspiration with thin liquids and nectar thick liquids and no aspiration with pudding consistency. Aspiration precaution recommendations were given to the patient. She continued to improve and completed a course of Levaquin during the hospitalization. She did receive 2 units of blood during her stay for anemia. She was also given a course of steroids and scheduled nebulized bronchodilator therapy to treat a COPD ex acerbation. On 01/27 she became more hypoxic and underwent a repeat CT angiogram of the chest revealing persistent pulmonary artery defects consistent with chronic pulmonary emboli with no new filling defects noted. The aortic plaque/thrombus was smaller. She underwent a venous Doppler of her lower extremities which were negative for DVT. She developed a worsening leukocytosis of 18 K on 01/26 peaking at 20 K on 01/29 and subsequently improving. Because of persistent abdominal discomfort in the setting of prior known duodenal ulcer 4 weeks ago and abdominal pelvis CT was performed. Interval development of subcapsular blood measuring 5 x 10 cm was present. A follow-up abdominal CT on 02/02 noted a lower pole left splenic infarct/hemorrhage that was stable in appearance to the preceding study. General surgery was consulted and recommending consideration for IR embolization at a tertiary care center. When the hospitalist discussed the case further with the interventional radiologist, no further need for any emergent procedures were is recommended. She continued to have some abdominal discomfort beyond this in the setting of noted voluminous diarrhea, a common reaction she has to IV contrast. Gastroenterology was asked to reevaluate her and added Carafate suspension 4 times daily with an improvement in her symptoms. They will see her as outpatient in 1 month to consider repeat upper endoscopy which is currently contraindicated in the presence of large splenic hematoma. Furthermore, a peripheral discussion ensued with her outpatient desktop support engineer regarding the need for anticoagulation in the setting of now known chronic pulmonary emboli and known history of MDS/ET and tobacco use. 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 All this makes her high risk for further clotting. For now there is a strong enough contraindication to avoid anticoagulation, however this will need to be considered within the next 4 to 6 weeks based on clinical progress. Her primary care doctor was also updated and general surgery recommended avoiding anticoagulation for at least 4 weeks. The patient verbalized understanding of her risk during this time off anticoagulation. She is committed to quitting smoking and was provided NicoDerm patches at discharge. Close primary care follow-up was recommended. She notably had significant weight loss during her hospitalization and nutrition was consulted. An unrestricted diet was recommended and weight loss monitoring will need to be continued by PCP. Additionally, she did develop a stage II decubitus ulcer and wound care instructions were given at time of discharge in addition to stoma powder and Aloe [place] cream. It will be vitally important she reposition herself every 2 hours and not stay in 1 position longer than that to avoid further breakdown. Diarrhea improved prior to discharge. Total Time Total Time Spent Total Time Spent (In Minutes): 60 Total Time Includes: Examination of the Patient, Discharge Planning, Medication Reconciliation and Communication With Other Providers Discharge Plan Discharge Items Patient Disposition: Home - Home Health Services Reason For Visit: SEPSIS,LLL PNA Discharge Diagnosis: Abdominal discomfort secondary to duodenal ulcer versus subcapsular splenic hematoma-improved Allergic conjunctivitis Severe protein calorie malnutrition Decubitus ulcer, stage II Severe sepsis secondary to pneumonia with mucoid impaction of bronchi status post bronchoscopy Subcapsular hemorrhage of spleen COPD exacerbation Myelodysplastic syndrome History of vaping nicotine Anemia Subacute pulmonary emboli Condition on Discharge: Good Activity: Resume your previous activity Non-emergency contact: Primary Care Provider Call non-emergency contact if: you have any medication questions, your symptoms worsen, your pain is not controlled, your pain is worsening, your pain is unusual for you, your pain is concerning for you and you have a fever Follow-up/Referrals: Valerie Chavez MD [Primary Care Provider] - 02/12/20 11:00 am (02/12/2020 11:00 AM Provider Claudia English MD Department General Internal Medicine [facility] ) Diet: Regular Diet Texture: Easy to Chew Addtl Attending Provider Instructions: Please take all medications as instructed on discharge list below. It is recommended that you follow-up with [facility] in 4 weeks as scheduled for repeat upper endoscopy. It is recommended that you follow-up closely with your Residential Concierge, Dr. Mainor Chavez, for further discussion regarding the need for anticoagulation and when to start this. As discussed, in the setting of your acute splenic hematoma, the general surgery team recommended holding blood thinners for at least 4 weeks to allow appropriate healing. Your recent duodenal ulcer is also a relative contraindication to starting blood thinner therapy. However, you have blood clots that were seen in your lungs, and have a high risk for further blood clot formation. Delaying anticoagulation with blood thinners is risky. Please follow-up with your primary care physician (PCP) at time/date listed above. Repeat chest imaging is recommended in 4 weeks to ensure complete resolution of pneumonia. As we discussed, it is very important to wean off nicotine and avoid vaping or smoking moving forward as this is bad for your health. You are being provided nicotine patches at discharge, and may work with your PCP to continue to step down in dosage of patches after two weeks. For your buttock ulcer, please continue using the powder and cream provided at discharge and stay off this area. It is important that you reposition every two hours to avoid further skin breakdown. It was a pleasure taking care of you! Please call if you have any questions or problems. You can reach a [facility] hospitalist on duty at [facility] 24 hours a day by calling [phone]. Take care of yourself. Desiree Cason, [facility] Hospitalist Pending Studies at Discharge: No Stand-Alone Forms: My [facility], Smoking Cessation Medications and DC Order Prescriptions: New nicotine [Nicoderm CQ] 21 mg/24 hr Patch 24 Hour 21 mg transdermal QAM Qty: 14 RF: 1 sucralfate [Carafate] 1 gram tablet 1 gm PO ACHS Qty: 28 RF: 0 Continued hydroxyurea [Hydrea] 500 mg Capsule 500 mg PO HS RF: 0 temazepam [Restoril] 30 mg Capsule 30 mg PO HS PRN (Reason: Sleep) RF: 0 pantoprazole [Protonix] 40 mg Tablet,Delayed Release (Dr/Ec) 40 mg PO BID RF: 0 pregabalin [Lyrica] 75 mg Capsule 75 mg PO BID RF: 0 albuterol sulfate 2.5 mg /3 mL (0.083 %) solution for nebulization 2.5 mg inhalation Q4H PRN (Reason: Wheezing) RF: 0 amitriptyline 75 mg tablet 75 mg PO HS RF: 0 olopatadine 0.1 % drops 1 drp OPB BID PRN (Reason: Itching) RF: 0 fluticasone propion-salmeterol 500-50 mcg/dose blister with device 1 inh INHALATION BID RF: 0 albuterol sulfate [Ventolin HFA] 90 mcg/actuation HFA aerosol inhaler 2 puff INHALATION QID PRN (Reason: Shortness Of Breath Or Wheezing) RF: 0 Spiriva with HandiHaler 18 mcg capsule, w/inhalation device 1 cap INHALATION QAM RF: 0 loperamide 2 mg capsule 2 mg PO Q4H PRN (Reason: Diarrhea) RF: 0 trazodone 50 mg tablet 50 mg PO HS RF: 0 tramadol 50 mg tablet 50 mg PO BID PRN (Reason: pain) Qty: 10 RF: 0 acetaminophen [Tylenol] 325 mg Tablet 325 mg PO QID PRN (Reason: Pain) RF: 0 Discharge Orders: Discharge Order (Routine); Ordered 02/07/20 Ordered By: Desiree Cason Admission Data Admit Date/Time: 01/23/20 11:16 Attending Provider: Desiree Cason Admit Provider: Rebecca Andres Primary Care Provider: Valerie Chavez Other Providers: [facility],Home Healthcare ; Desiree Cason ; Rebecca Andres ; Raymundo Billy ; Ganesh Fry
== END 2020-02-07 20:06 | disposition home health service (06) | DRG 871 ==
LOC: ED 06:39 → SUATTDRO 11:16 → 1E 11:16 → 2W 01-25 10:34 → 3E 01-29 00:15 → 2S 02-02 16:12 → 2W 02-05 01:32

== ENCOUNTER 2020-04-01 15:56 | Inpatient (IN) ==
--- NOTE | 2020-04-01 16:26 | Emergency Department Note ---
History of Present Illness General Chief complaint: Referred by Doctor Stated complaint: BLOOD IS DOWN TO 6 Time Seen by Provider: 04/01/20 16:02 Source: patient Mode of arrival: ambulatory Limitations: no limitations History of Present Illness Provider complaint: Low blood count Onset (ago): unknown Location: abdomen Radiation: non-radiation Severity: moderate Pain Consistency: + colicky Maximum Pain Intensity: 6 Quality: + sharp Exacerbated By: + movement Associated symptoms: + cough, + malaise and + shortness of breath; no fever/chills Treatments prior to arrival: none This is a 79-year-old female who presents from home after being called by her PCP and told report to the emergency room because outpatient lab testing she had done today revealed a hemoglobin of 6. Patient states she has been undergoing evaluation for persistent anemia and problems with her spleen. Patient states she has had prior blood transfusions. Patient states she has not noticed any black or bloody stools, hematuria, or hemoptysis. Patient denies fevers or chills. States she has had several recent negative coronavirus tests as she had also recently had an EGD. Patient denies any use of aspirin or blood thinners. Patient states she has had an increased cough productive of yellow sputum recently. Patient states she does have a history of COPD, and does occasionally still smoke. No home oxygen. Patient states she has noticed she is slightly more fatigued, lightheaded with standing up, and slightly more short of breath with exertion. Patient states she has had intermittent abdominal pain that begins in her left upper quadrant and radiates down into her pelvis. No radiation into the back. Pain is improved when she lays on her left side. No change in her urine or urinary habits. Patient denies any other known sick contacts. Patient states she had an outpatient ultrasound of her abdomen earlier today also. No current abdominal pain. Pt seen during a time of high acuity and national emergency pandemic while wearing PPE. Home Medications Home Medications Medication Instructions Recorded Confirmed Type hydroxyurea [Hydrea] 500 mg PO HS 06/06/18 04/01/20 History pantoprazole [Protonix] 40 mg PO BID 06/06/18 04/01/20 History pregabalin [Lyrica] 75 mg PO BID 06/06/18 04/01/20 History temazepam [Restoril] 30 mg PO HS PRN 06/06/18 04/01/20 History Spiriva with HandiHaler 1 cap INHALATION QAM 12/17/19 04/01/20 History albuterol sulfate 2.5 mg INHALATION Q4H PRN 12/17/19 04/01/20 History albuterol sulfate [Ventolin HFA] 2 puff INHALATION QID PRN 12/17/19 04/01/20 History amitriptyline 75 mg PO HS 12/17/19 04/01/20 History fluticasone propion-salmeterol 1 inh INHALATION BID 12/17/19 04/01/20 History loperamide 2 mg PO Q4H PRN 12/17/19 04/01/20 History olopatadine 1 drp OPB BID PRN 12/17/19 04/01/20 History trazodone 50 mg PO HS 12/17/19 04/01/20 History acetaminophen [Tylenol] 325 mg PO QID PRN 01/23/20 04/01/20 History nicotine [Nicoderm CQ] 21 mg TRANSDERMAL QAM #14 ea 02/07/20 04/01/20 Rx bismuth subsalicylate 524 mg PO QID PRN 04/01/20 04/01/20 History [Pepto-Bismol] ondansetron HCl 8 mg PO Q12H PRN 04/01/20 04/01/20 History risedronate [Actonel] 35 mg PO WK 04/01/20 04/01/20 History rizatriptan 10 mg PO PRN 04/01/20 History sucralfate [Carafate] 1 gm PO ACHS 04/01/20 04/01/20 History tramadol 50 mg PO QID PRN 04/01/20 04/01/20 History Allergies Allergy/AdvReac Type Severity Reaction Status Date / Time latex Allergy Intermediate HIVES Verified 04/01/20 17:34 nickel Allergy Intermediate Hives/Itchi Verified 04/01/20 17:34 ness shellfish derived Allergy Verified 04/02/20 15:43 Iodinated Contrast Media AdvReac Mild Diarrhea Verified 04/01/20 17:34 [Iodinated Contrast- Oral and IV Dye] Lobster Allergy Severe HIVES Uncoded 04/01/20 17:34 Past Med/Surg History Medical History (Updated 04/01/20 @ 21:11 by BRIANNE Cuellar) CKD (chronic kidney disease), stage III COPD (chronic obstructive pulmonary disease) (Chronic) History of breast cancer (Chronic) chemo History of MRSA infection (Chronic) "left hip wound" History of peptic ulcer disease (Chronic) IBS (irritable bowel syndrome) (Chronic) Diarrhea predominant ; follows with GI Leukocytosis 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) Myelodysplastic syndrome (Chronic) Pelvic fracture 12/2018 pelvic fracture and monitor Pulmonary emboli 12/2019 just monitored Pulmonary nodules CT 01/23/20: 5 mm RML 3 mm RML 3 mm DEVEN 4 mm RUL S/P ORIF (open reduction internal fixation) fracture fracture hip x 5 and then had ORIF Subcapsular hemorrhage of spleen Thrombocytosis (Chronic) Surgical History H/O mastectomy modified radical masectomy H/O: hysterectomy (Chronic) History of cholecystectomy Hx of esophagogastroduodenoscopy Status post mastectomy (Inactive) "modified right mastectomy 1990" Status post total hip replacement, left (Chronic) had after ORIF hip Family History Other Unknown family medical history Social History Smoking Status: Current some day smoker Tobacco Type: Cigarettes packs per day: 1; Second Hand Exposure: No; Do You Dip or Chew Tobacco: No; Tobacco Cessation Education Requested by Patient: No Hx Alcohol Use: No Hx Substance Use: No Preferred Language: [place] Communication Ability: Effective 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 and A total of 10 systems reviewed and were otherwise negative Physical Exam Vital Signs Vital Signs - 24 hr 04/01/20 15:58 04/01/20 16:36 04/01/20 16:42 Temperature Temperature Source Oral Pulse Rate 89 80 Pulse Rate [Apical] Pulse Rate from SpO2 Sensor 80 Respiratory Rate 24 18 Respiratory Effort / Characteristics Non-Labored Non-Labored Respiratory Depth Normal Blood Pressure 92/50 L 105/58 L Blood Pressure [Left Arm] Blood Pressure Mean 64 68 Blood Pressure Mean [Left Arm] Blood Pressure Position Sitting Pulse Oximetry 93 97 97 Oxygen Delivery Method Room Air Room Air Sepsis Recent Fever Within 48 Hours No Sepsis New/Unexplained Change in Mental Status No Sepsis Action Taken by Nursing Physician Notified 04/01/20 16:45 04/01/20 17:00 04/01/20 17:01 Temperature 37 C Temperature Source Oral Pulse Rate 79 78 Pulse Rate [Apical] Pulse Rate from SpO2 Sensor 79 78 Respiratory Rate 18 19 Respiratory Effort / Characteristics Respiratory Depth Blood Pressure 111/58 L Blood Pressure [Left Arm] Blood Pressure Mean 68 Blood Pressure Mean [Left Arm] Blood Pressure Position Pulse Oximetry 95 97 Oxygen Delivery Method Sepsis Recent Fever Within 48 Hours Sepsis New/Unexplained Change in Mental Status Sepsis Action Taken by Nursing 04/01/20 18:48 04/01/20 18:49 04/01/20 19:07 Temperature 37.0 C Temperature Source Oral Pulse Rate 76 Pulse Rate [Apical] 74 Pulse Rate from SpO2 Sensor Respiratory Rate 20 20 Respiratory Effort / Characteristics Respiratory Depth Blood Pressure 116/61 Blood Pressure [Left Arm] 115/60 Blood Pressure Mean 79 Blood Pressure Mean [Left Arm] 78 Blood Pressure Position Pulse Oximetry 95 95 97 Oxygen Delivery Method Room Air Room Air Sepsis Recent Fever Within 48 Hours Sepsis New/Unexplained Change in Mental Status Sepsis Action Taken by Nursing GENERAL: alert, well appearing, well nourished, no distress, non-toxic EYE EXAM: normal conjunctiva, PERRL and EOM's grossly intact OROPHARYNX: no exudate, no erythema, lips, buccal mucosa, and tongue normal and mucous membranes are moist NECK: supple, no nuchal rigidity, no adenopathy, non-tender LUNGS: Clear to auscultation. Normal chest wall mechanics, no w/r/r HEART: no murmurs, S1 normal and S2 normal ABDOMEN: abdomen soft, non-tender, normo-active bowel sounds, no masses, no rebound or guarding. BACK: Back is symmetrical on inspection and there is no deformity, no midline tenderness, no CVA tenderness. SKIN: no rashes and no bruising UPPER EXTREMITIES: upper extremities are grossly normal. FROM, nml pulses b/l. LOWER EXTREMITIES: No pitting edema. FROM, nml pulses b/l. NEURO EXAM: Normal sensorium, cranial nerves II-XII grossly intact, normal speech, no gross weakness of arms, no gross weakness of legs. Gross sensation intact. Course Course 1635: Updated patient on outpatient labs performed earlier today that were obtained by case management in the [facility] system. Hemoglobin of 6 hematocrit of 19.7 WBC 5.7 platelets 371. I did review the ultrasound that was read by radiology from earlier today also. SPLENIC ULTRASOUND CLINICAL HISTORY: LUQ PAIN, SPLENOMEGALY COMPARISON STUDY: CT scan dated 02/03/2020 FINDINGS: The spleen is heterogeneous in appearance. The spleen measures 15.9 cm in length. There are lower pole areas of decreased echogenicity, corresponding to the foci of decreased attenuation on the prior CT scan. These could correspond to areas of splenic infarction. The left kidney measures 9.4 cm in length. There is no hydronephrosis. IMPRESSION: 1. Mild splenomegaly 2. Loculated lower pole the spleen with small areas of decreased echogenicity. Although nonspecific the findings could represent areas of splenic infarction ACT 112: Negative or not required by law. Electronically signed by: Sher Lira M.D. 04/01/2020 12:15 PM 1750: Patient updated at bedside. Feels well at rest, no current abdominal pain. Blood consent signed. I did review recent EGD 03/24/2020 which was reassuring without active disease or evidence of bleeding. 181: Discussed with [facility] Hospitalist service. Administered Medications Acetaminophen (Tylenol) 650 mg PO Q4H PRN PRN Reason: pain/fever Stop: 05/01/20 20:57 Last Admin: 04/02/20 03:23 Dose: 650 mg Documented by: [id number] Amitriptyline HCl (Elavil) 75 mg PO [facility] Stop: 05/01/20 20:59 Last Admin: 04/02/20 20:18 Dose: 75 mg Documented by: [id number] Admin: 04/01/20 21:34 Dose: 75 mg Documented by: [id number] Fluticasone/Vilanterol (Breo Ellipta 200/25 Mcg Inh) 1 puffs INH DAILY SHORTY Stop: 05/02/20 08:59 Last Admin: 04/02/20 09:53 Dose: 1 puffs Documented by: [id number] Hydroxyurea (Hydrea) 500 mg PO [facility] Stop: 05/01/20 20:59 Last Admin: 04/01/20 21:35 Dose: 500 mg Documented by: [id number] Cosigned by: [id number] Cefepime HCl 2,000 mg/ Syringe 20 mls @ 5 mls/min IV Q12H [facility]; Protocol Stop: 04/12/20 07:59 Last Admin: 04/02/20 20:16 Dose: 5 mls/min Documented by: [id number] Admin: 04/02/20 09:53 Dose: 5 mls/min Documented by: [id number] Pantoprazole Sodium (Protonix) 40 mg PO BID SHORTY Stop: 05/01/20 20:59 Last Admin: 04/02/20 20:18 Dose: 40 mg Documented by: [id number] Admin: 04/02/20 09:50 Dose: Not Given Documented by: [id number] Admin: 04/01/20 21:34 Dose: 40 mg Documented by: [id number] Pregabalin (Lyrica) 75 mg PO BID SHORTY Stop: 05/01/20 20:59 Last Admin: 04/02/20 20:18 Dose: 75 mg Documented by: [id number] Admin: 04/02/20 09:49 Dose: Not Given Documented by: [id number] Admin: 04/01/20 21:40 Dose: 75 mg Documented by: [id number] Sucralfate (Carafate Tab) 1 gm PO ACHS [facility] Stop: 05/01/20 20:59 Last Admin: 04/02/20 20:16 Dose: 1 gm Documented by: [id number] Admin: 04/02/20 15:58 Dose: 1 gm Documented by: [id number] Admin: 04/02/20 12:43 Dose: 1 gm Documented by: [id number] Admin: 04/02/20 09:51 Dose: Not Given Documented by: [id number] Admin: 04/01/20 21:34 Dose: 1 gm Documented by: [id number] Temazepam (Restoril) 15 mg PO HS PRN PRN Reason: Sleep Stop: 05/01/20 20:57 Last Admin: 04/02/20 20:18 Dose: 15 mg Documented by: [id number] Trazodone HCl (Desyrel) 25 mg PO HS SHORTY Stop: 05/02/20 20:59 Last Admin: 04/02/20 20:17 Dose: 25 mg Documented by: [id number] Umeclidinium Gueydan (Incruse Ellipta) 1 puffs INH QAM SHORTY Stop: 05/02/20 08:59 Last Admin: 04/02/20 09:54 Dose: 1 puffs Documented by: [id number] Discontinued Medications Acetaminophen (Tylenol) 325 mg PO NOW STA Stop: 04/02/20 04:21 Last Admin: 04/02/20 04:53 Dose: 325 mg Documented by: [id number] Albuterol (Duoneb) 3 ml NEB NOW STA Stop: 04/01/20 18:18 Last Admin: 04/01/20 18:50 Dose: Not Given Documented by: [id number] Sodium Chloride (Nss 1000ml) 1,000 mls @ 250 mls/hr IV .Q4H SHORTY Stop: 05/01/20 16:29 Last Admin: 04/01/20 21:37 Dose: Not Given Documented by: [id number] Infusion: 04/01/20 21:37 Dose: 0 mls/hr Documented by: [id number] Admin: 04/01/20 17:36 Dose: 250 mls/hr Documented by: [id number] Lorazepam (Ativan) 0.25 mg in 0.5 mls @ 0.5 mls/min IV UD PRN PRN Reason: Anxiety Stop: 05/01/20 18:16 Last Admin: 04/01/20 18:42 Dose: 0.5 mls/min Documented by: [id number] Sodium Chloride (1/2 Nss) 500 mls @ 250 mls/hr IV .Q2H ONE Stop: 04/02/20 06:39 Last Infusion: 04/02/20 09:50 Dose: 0 mls/hr Documented by: [id number] Admin: 04/02/20 04:56 Dose: 250 mls/hr Documented by: [id number] Magnesium Sulfate/Dextrose (Magnesium Sulfate / D5w) 1 gm in 100 mls @ 50 mls/hr IV ONE ONE Stop: 04/02/20 06:59 Last Infusion: 04/02/20 09:51 Dose: 0 mls/hr Documented by: [id number] Admin: 04/02/20 05:02 Dose: 50 mls/hr Documented by: [id number] Naloxone HCl (Narcan) 0.4 mg IV NOW STA Stop: 04/02/20 07:14 Last Admin: 04/02/20 07:18 Dose: 0.4 mg Documented by: [id number] Temazepam (Restoril) 30 mg PO HS PRN PRN Reason: Sleep Stop: 05/01/20 20:57 Last Admin: 04/01/20 21:24 Dose: 30 mg Documented by: [id number] Tramadol HCl (Ultram) 50 mg PO QID PRN PRN Reason: pain Stop: 05/01/20 20:57 Last Admin: 04/01/20 21:24 Dose: 50 mg Documented by: [id number] Trazodone HCl (Desyrel) 50 mg PO HS SHORTY Stop: 05/01/20 20:59 Last Admin: 04/01/20 21:34 Dose: 50 mg Documented by: [id number] Critical Care Time Critical Care Time: Yes Total Critical Care Time: 39 Critical care of 39 min performed to assess and manage high likelihood of life- threatening anemia, involving labs/imaging performed with assessment to evaluate anemia diagnosis with frequent reassessment. This time includes bedside time, treatment discussions with patient/family/consultants, documentation time and excludes procedure time. Medical Decision Making Differential Diagnosis Differential diagnoses includes but is not limited to gastritis, peptic ulcer disease, GERD, gallbladder disease, pancreatitis, small bowel obstruction, acute coronary syndrome, pericarditis, ischemic bowel, irritable bowel disease, ir ritable bowel syndrome, appendicitis, diverticulitis, malignancy, hernia, urinary tract infection, torsion, [/ectopic (if female)], perforation, trauma, infectious. Medical Records Attestation: I reviewed the patient's medical records. Home Medications Current Medication List: was personally reviewed by me Laboratory Data Attestation: I reviewed the patient's lab results. Result diagrams: 04/02/20 15:29 04/02/20 03:25 Lab Results 04/01/20 04/01/20 04/01/20 Range/Units 16:35 17:01 17:01 WBC 5.32 (4.8-10.8) K/uL RBC 1.89 L (4.2-5.4) M/uL Hgb 6.2 L* (12.0-16.0) g/dL Hct 19.9 L* (37-47) % MCV 105.3 H (80-100) fL MCH 32.8 (25-34) pg MCHC 31.2 L (32-36) g/dL Plt Count 359 (130-400) K/uL MPV 11.7 H (7.4-10.4) fL Immature Gran % (Auto) 0.2 % Neut % (Auto) 66.8 % Lymph % (Auto) 21.1 % [place] % (Auto) 10.2 % Eos % (Auto) 0.9 % Baso % (Auto) 0.8 % Neut # (Auto) 3.56 (1.4-6.5) K/uL Lymph # (Auto) 1.12 L (1.2-3.4) K/uL [place] # (Auto) 0.54 (0.11-0.59) K/uL Eos # (Auto) 0.05 (0-0.5) K/uL Baso # (Auto) 0.04 (0-0.2) K/uL Immature Gran # (Auto) 0.01 (0.00-0.02) K/uL Hypochromasia Present Anisocytosis Present Ovalocytes 1+ PT (9.0-12.0) Seconds INR (0.9-1.1) APTT (21.0-31.0) Seconds PTT Ratio Sodium (136-145) mmol/L Potassium (3.5-5.1) mmol/L Chloride (98-107) mmol/L Carbon Dioxide (21-32) mmol/L Anion Gap (3-11) BUN (7-18) mg/dl Creatinine (0.6-1.2) mg/dl Est Cr Clr Drug Dosing Est GFR ( Amer) Est GFR (Non-Af Amer) BUN/Creatinine Ratio (10-20) Glucose (70-99) mg/dl Lactate (0.4-2.0) mmol/L Calcium (8.5-10.1) mg/dl Magnesium (1.8-2.4) mg/dl Total Bilirubin (0.2-1) mg/dl AST (15-37) U/L ALT (12-78) U/L Alkaline Phosphatase (45-117) U/L Troponin I (0-0.045) ng/ml Total Protein (6.4-8.2) gm/dl Albumin (3.4-5.0) gm/dl Globulin (2.5-4.0) gm/dl Albumin/Globulin Ratio (0.9-2) Urine Color Yellow Urine Appearance Clear (Clear) Urine pH 5.0 (4.5-7.5) Ur Specific [place] 1.022 (1.000-1.030) Urine Protein Negative (Negative) Urine Glucose (UA) Negative (Negative) Urine Ketones Negative (Negative) Urine Blood Negative (Negative) Urine Nitrite Negative (Negative) Urine Bilirubin Negative (Negative) Urine Urobilinogen Negative (Negative) Ur Leukocyte Esterase Trace H (Negative) Urine WBC (Auto) 1-5 (0-5) /hpf Urine RBC (Auto) 0-4 (0-4) /hpf U Hyaline Cast (Auto) 1-5 (0-5) /lpf U Epithel Cells (Auto) >30 H (0-5) /lpf Urine Bacteria (Auto) Negative (Negative) Blood Type A Positive Antibody Screen NEGATIVE Crossmatch See Detail 04/01/20 04/01/20 04/01/20 Range/Units 17:01 17:01 17:01 WBC (4.8-10.8) K/uL RBC (4.2-5.4) M/uL Hgb (12.0-16.0) g/dL Hct (37-47) % MCV (80-100) fL MCH (25-34) pg MCHC (32-36) g/dL Plt Count (130-400) K/uL MPV (7.4-10.4) fL Immature Gran % (Auto) % Neut % (Auto) % Lymph % (Auto) % [place] % (Auto) % Eos % (Auto) % Baso % (Auto) % Neut # (Auto) (1.4-6.5) K/uL Lymph # (Auto) (1.2-3.4) K/uL [place] # (Auto) (0.11-0.59) K/uL Eos # (Auto) (0-0.5) K/uL Baso # (Auto) (0-0.2) K/uL Immature Gran # (Auto) (0.00-0.02) K/uL Hypochromasia Anisocytosis Ovalocytes PT 11.1 (9.0-12.0) Seconds INR 1.1 (0.9-1.1) APTT 26.8 (21.0-31.0) Seconds PTT Ratio 1.0 Sodium 140 (136-145) mmol/L Potassium 4.6 (3.5-5.1) mmol/L Chloride 114 H (98-107) mmol/L Carbon Dioxide 20 L (21-32) mmol/L Anion Gap 6.0 (3-11) BUN 31 H (7-18) mg/dl Creatinine 1.60 H (0.6-1.2) mg/dl Est Cr Clr Drug Dosing Not Reportable Est GFR ( Amer) 35.7 Est GFR (Non-Af Amer) 30.8 BUN/Creatinine Ratio 19.2 (10-20) Glucose 86 (70-99) mg/dl Lactate 1.2 (0.4-2.0) mmol/L Calcium 8.1 L (8.5-10.1) mg/dl Magnesium 2.1 (1.8-2.4) mg/dl Total Bilirubin 0.4 (0.2-1) mg/dl AST 13 L (15-37) U/L ALT 8 L (12-78) U/L Alkaline Phosphatase 61 (45-117) U/L Troponin I 0.101 H* (0-0.045) ng/ml Total Protein 6.9 (6.4-8.2) gm/dl Albumin 3.3 L (3.4-5.0) gm/dl Globulin 3.6 (2.5-4.0) gm/dl Albumin/Globulin Ratio 0.9 (0.9-2) Urine Color Urine Appearance (Clear) Urine pH (4.5-7.5) Ur Specific [place] (1.000-1.030) Urine Protein (Negative) Urine Glucose (UA) (Negative) Urine Ketones (Negative) Urine Blood (Negative) Urine Nitrite (Negative) Urine Bilirubin (Negative) Urine Urobilinogen (Negative) Ur Leukocyte Esterase (Negative) Urine WBC (Auto) (0-5) /hpf Urine RBC (Auto) (0-4) /hpf U Hyaline Cast (Auto) (0-5) /lpf U Epithel Cells (Auto) (0-5) /lpf Urine Bacteria (Auto) (Negative) Blood Type Antibody Screen Crossmatch Imaging Data Radiologist's Impression: XR chest 1V portable HISTORY: 79 years-old Female SEPSIS acute sepsis COMPARISON: Chest radiographs 01/30/2020, CTA chest 01/28/2020 TECHNIQUE: Portable AP view of the chest FINDINGS: Cardiomediastinal and hilar silhouettes are unchanged. Calcified left hilar lymph nodes. Calcified plaque of the thoracic aortic arch. Right breast implant.. Emphysema with chronic fibrosis. There is improved aeration of the left lung base from comparison. No pneumothorax, large pleural effusion, overt pulmonary edema or airspace consolidation typical for pneumonia. Surgical clips of the right axilla. Degenerative changes of the shoulders and spine. IMPRESSION: Emphysema without acute process. ACT 112: Negative or not required by law. The above report was generated using voice recognition software. It may contain grammatical, syntax or spelling errors. Electronically signed by: Jarvis Lewis M.D. 04/01/2020 4:59 PM ECG Data Attestation: I personally reviewed and interpreted this ECG as follows: Indication: + abdominal pain Rate (beats per minute): 81 Rhythm: + normal sinus ECG Intervals/blocks: + Normal QRS and + Normal QT-c ECG ST segments: + T-wave inversions (II, III, aVF, V3-V6) Comparison ECG Date: from (01/23/2020) Change: the following changes noted (T wave inversions now seen are new compared to prior, incomplete right bundle branch block unchanged.) Blood Pressure Blood Pressure Findings: Normal blood pressure MDM Narrative Pt here after receiving a call that her outpt labs were abnormal and her Hbg was low. Pt with a hx of anemia and prior blood transfusions. Pt denies any recent bleeding from any site. Pt did have prior EGD within the last recent weeks which was normal. Pt admits to increased LAINEZ, orthostatic lightheadedness, likely from worsening anemia. Labs, type and screen drawn, blood consent form signed. IV placed. Pt with abnormal EKG compared to prior, likely from demand ischemia due to anema. Troponin elevated also. Pt made aware of all results and need for additional inpatient monitoring. On review of US today compared to prior CT's, pt's splenomegaly is improved and there is no mention of hemorrhage/hematoma. Pt with no abdominal pain on my exam despite reporting recent intermittent abdominal pain. Vs stable throughout. I do not suspect occult trauma or peritoneal hemorrhage. Transfusion started in the ER. Case discussed with hospitalist. An order was placed for continuous cardiac monitoring. The monitor shows a rate of _90_ with normal sinus_ rhythm. Impression & Plan Anemia, COPD (chronic obstructive pulmonary disease), Abnormal ECG, DEISY (acute kidney injury), Elevated troponin Discharge Plan Visit Data *Final* Discharge Date/Time: 04/01/20 20:34 Chief Complaint: Referred by Doctor Stated Complaint: BLOOD IS DOWN TO 6 ED Provider: Estrellita Huang Discharge Problem: Anemia, COPD (chronic obstructive pulmonary disease), Abnormal ECG, DEISY (acute kidney injury), Elevated troponin Patient Disposition: Admitted As Inpatient Discharge Instructions Interventions: ED Discharge Assessment Last Done: 04/01/20 20:34
[2020-04-01 16:57] LABS: Appearance Urine Clear (Clear); Bacteria Urine Automated Negative (Negative); Bilirubin Urine Negative (Negative); Blood Urine Negative (Negative); Color Urine Yellow; Epithelial Cell Urine Auto >30 /lpf (0-5); Glucose Urine UA Negative (Negative); Ketones Urine Negative (Negative); Leukocyte Esterase Urine Trace (Negative); Nitrite Urine Negative (Negative); Protein Urine Negative (Negative); RBC Urine Automated 0-4 /hpf (0-4); Specific Gravity Urine 1.022 (1.000-1.030); Urobilinogen Urine Negative (Negative)
--- NOTE | 2020-04-01 17:01 | XRay Report ---
XR chest 1V portable HISTORY: 79 years-old Female SEPSIS acute sepsis COMPARISON: Chest radiographs 01/30/2020, CTA chest 01/28/2020 TECHNIQUE: Portable AP view of the chest FINDINGS: Cardiomediastinal and hilar silhouettes are unchanged. Calcified left hilar lymph nodes. Calcified pl aque of the thoracic aortic arch. Right breast implant.. Emphysema with chronic fibrosis. There is im proved aeration of the left lung base from comparison. No pneumothorax, large pleural effusion, overt pulmonary edema or airspace consolidation typical for pneumonia. Surgical clips of the right axilla. Degenerative changes of the shoulders and spine. IMPRESSION: Emphysema without acute process. ACT 112: Negative or not required by law. The above report was generated using voice recognition software. It may contain grammatical, syntax o r spelling errors. Electronically signed by: Jarvis Lewis M.D. 04/01/2020 4:59 PM
[2020-04-01 17:36] LABS: Hematocrit (blood only) 19.9 % (37-47); Hemoglobin 6.2 g/dL (12.0-16.0); Mean Corpuscular Hemoglobin 32.8 pg (25-34); Mean Corpuscular Hgb Conc 31.2 g/dL (32-36); Mean Corpuscular Volume 105.3 fL (80-100); Mean Platelet Volume 11.7 fL (7.4-10.4); Platelet Count 359 K/uL (130-400); Red Blood Count 1.89 M/uL (4.2-5.4); White Blood Count 5.32 K/uL (4.8-10.8)
[2020-04-01] MEDS: SODIUM CHLORIDE 0.9% 1000ML 1,000 ML IV SCH ×2 (17:36→21:37)
[2020-04-01] MEDS ORDERED: SODIUM CHLORIDE 0.9% 250 ML IV PRN ×3 (17:36→20:58)
[2020-04-01 17:39] LABS: INR 1.1 (0.9-1.1); Partial Thromboplastin Time 26.8 Seconds (21.0-31.0); Prothrombin Time 11.1 Seconds (9.0-12.0)
[2020-04-01 17:48] LABS: Alanine Aminotransferase 8 U/L (12-78); Albumin Level 3.3 gm/dl (3.4-5.0); Aspartate Aminotransferase 13 U/L (15-37); BUN Creatinine Ratio 19.2 (10-20); Blood Urea Nitrogen 31 mg/dl (7-18); Calcium 8.1 mg/dl (8.5-10.1); Carbon Dioxide 20 mmol/L (21-32); Chloride 114 mmol/L (98-107); Est GFR (African American) 35.7; Est GFR (Non-African American) 30.8; Glucose 86 mg/dl (70-99); Magnesium 2.1 mg/dl (1.8-2.4); Potassium 4.6 mmol/L (3.5-5.1); Sodium 140 mmol/L (136-145)
[2020-04-01 18:04] LABS: Albumin Globulin Ratio 0.9 (0.9-2); Alkaline Phosphatase 61 U/L (45-117); Bilirubin,Total 0.4 mg/dl (0.2-1); Globulin 3.6 gm/dl (2.5-4.0); Total Protein 6.9 gm/dl (6.4-8.2); Troponin I 0.101 ng/ml (0-0.045)
[2020-04-01 18:09] LABS: Anisocytosis Present; Basophils # (auto) 0.04 K/uL (0-0.2); Basophils % (auto) 0.8 %; Eosinophils # (auto) 0.05 K/uL (0-0.5); Eosinophils % (auto) 0.9 %; Hypochromasia Present; Immature Granulocytes # (auto) 0.01 K/uL (0.00-0.02); Immature Granulocytes % (auto) 0.2 %; Lymphocytes # (auto) 1.12 K/uL (1.2-3.4); Lymphocytes % (auto) 21.1 %; Monocytes # (auto) 0.54 K/uL (0.11-0.59); Monocytes % (auto) 10.2 %; Neutrophils # (auto) 3.56 K/uL (1.4-6.5); Neutrophils % (auto) 66.8 %; Ovalocytes 1+
[2020-04-01] MEDS ORDERED: LORazepam 0.25 MG/0.5 ML VIAL IV PRN (18:17)
[2020-04-01] MEDS ORDERED: ALBUT/IPRATROP 3MG/0.5MG NEB 3 ML VIAL NEB STA (18:17)
--- NOTE | 2020-04-01 20:06 | History & Physical Report ---
Date of Service April 01, 2020 Assessment & Plan (1) Anemia: -Admit to [facility] telemetry -Patient presenting by referral of outpatient oncologist for evaluation of anemia -Hgb 6.2 (baseline ~8.5) -History of bleeding duodenal ulcer (12/2019), MDS, subcapsular hemorrhage of spleen (01/2020) -No signs of GI bleeding, EGD 03/24/2020 WNL -Abdominal ultrasound today without signs of further splenic hemorrhage -Suspect anemia is likely secondary to underlying MDS -Transfuse PRBC, follow H&H (2) Elevated troponin: (3) Abnormal ECG: -Troponin 0.101, EKG shows new T wave inversions in the inferior lateral leads, QTC 534 -No reports of chest pain -Likely due to demand ischemia from anemia -Continue cycle cardiac enzymes, daily EKG -Avoid QTC prolonging agents (hold home tramadol for now) (4) DEISY (acute kidney injury): -Creatinine 1.6 (baseline 1.0) -Likely prerenal due to hypovolemia from anemia -Transfuse PRBC -IVF when not receiving PRBC -Follow renal functions, avoid nephrotoxic agents when able (5) Subcapsular hemorrhage of spleen: -Diagnosed during previous admission -Had follow-up abdominal ultrasound today that did not show any signs of splenic hemorrhage -If abdominal pain persist, consider CT abdomen (6) Pulmonary emboli: -CTA chest 01/28/2020 showed subacute/chronic pulmonary embolism -Not receiving anticoagulation due to underlying anemia, MDS, splenic hemorrhage (7) History of peptic ulcer disease: -EGD 03/24/2020 WNL -Continue PPI (8) Myelodysplastic syndrome: (9) Thrombocytosis: -Follows with Dr. Mainor Chavez -Continue Hydrea (10) COPD (chronic obstructive pulmonary disease): -Stable, no signs of acute exacerbation -Continue home inhalers (11) DVT prophylaxis: -SCDs due to anemia History of Present Illness Chief Complaint: Anemia Primary Care Provider: Valerie Chavez MD 79-year-old female with PMH COPD, myelodysplastic syndrome, thrombocytosis, PUD, pulmonary embolism, and other problems listed below who presents to the ED by referral of outpatient oncologist for evaluation of anemia. Patient was recently admitted to [facility] 01/22 through 02/06 for acute on chronic hypoxic respiratory failure secondary to pneumonia and mucous plugging, pulmonary embolism, splenic infarct/hemorrhage. Anticoagulation for pulmonary embolism was not started due to underlying chronic anemia, PUD, splenic hemorrhage. Patient reports she has been feeling quite poorly since returning home from the hospital. She reports progressive generalized weakness and worsening exertional shortness of breath. She had routine labs performed today showing significant anemia. Given her symptoms, patient was referred to the ED for further evaluation. Patient also reports ongoing issues with left upper quadrant abdominal pain. Of note, patient had a abdominal ultrasound today that showed mild splenomegaly and loculated lower pole of the spleen with small areas of decreased echogenicity suggesting areas of splenic infarction; no evidence of hematoma or perisplenic fluid. Patient denies chest pain. No lightheadedness, dizziness, diaphoresis, syncopal events. No nausea, vomiting, diarrhea. She denies bright red bleeding per rectum or dark tarry stools. No fevers or chills. Patient denies urinary symptoms. In the ED, patient is found to have hemoglobin 6.2, mildly elevated troponin 0.101. EKG shows new T wave inversions in the inferior and lateral leads. She is hemodynamically stable. She was typed and crossed for blood transfusion. Allergies Allergy/AdvReac Type Severity Reaction Status Date / Time latex Allergy Intermediate HIVES Verified 04/01/20 17:34 nickel Allergy Intermediate Hives/Itchi Verified 04/01/20 17:34 ness Iodinated Contrast Media AdvReac Mild Diarrhea Verified 04/01/20 17:34 [Iodinated Contrast- Oral and IV Dye] Lobster Allergy Severe HIVES Uncoded 04/01/20 17:34 Home Medications Home Medications Medication Instructions Recorded Confirmed Type hydroxyurea [Hydrea] 500 mg PO HS 06/06/18 04/01/20 History pantoprazole [Protonix] 40 mg PO BID 06/06/18 04/01/20 History pregabalin [Lyrica] 75 mg PO BID 06/06/18 04/01/20 History temazepam [Restoril] 30 mg PO HS PRN 06/06/18 04/01/20 History Spiriva with HandiHaler 1 cap INHALATION QAM 12/17/19 04/01/20 History albuterol sulfate 2.5 mg INHALATION Q4H PRN 12/17/19 04/01/20 History albuterol sulfate [Ventolin HFA] 2 puff INHALATION QID PRN 12/17/19 04/01/20 History amitriptyline 75 mg PO HS 12/17/19 04/01/20 History fluticasone propion-salmeterol 1 inh INHALATION BID 12/17/19 04/01/20 History loperamide 2 mg PO Q4H PRN 12/17/19 04/01/20 History olopatadine 1 drp OPB BID PRN 12/17/19 04/01/20 History trazodone 50 mg PO HS 12/17/19 04/01/20 History acetaminophen [Tylenol] 325 mg PO QID PRN 01/23/20 04/01/20 History nicotine [Nicoderm CQ] 21 mg TRANSDERMAL QAM #14 ea 02/07/20 04/01/20 Rx bismuth subsalicylate 524 mg PO QID PRN 04/01/20 04/01/20 History [Pepto-Bismol] ondansetron HCl 8 mg PO Q12H PRN 04/01/20 04/01/20 History risedronate [Actonel] 35 mg PO WK 04/01/20 04/01/20 History rizatriptan 10 mg PO PRN 04/01/20 History sucralfate [Carafate] 1 gm PO ACHS 04/01/20 04/01/20 History tramadol 50 mg PO QID PRN 04/01/20 04/01/20 History Past Med/Surg History Medical History (Updated 04/01/20 @ 21:11 by BRIANNE Cuellar) CKD (chronic kidney disease), stage III COPD (chronic obstructive pulmonary disease) (Chronic) History of breast cancer (Chronic) chemo History of MRSA infection (Chronic) "left hip wound" History of peptic ulcer disease (Chronic) IBS (irritable bowel syndrome) (Chronic) Diarrhea predominant ; follows with GI Leukocytosis 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) Myelodysplastic syndrome (Chronic) Pelvic fracture 12/2018 pelvic fracture and monitor Pulmonary emboli 12/2019 just monitored Pulmonary nodules CT 01/23/20: 5 mm RML 3 mm RML 3 mm DEVEN 4 mm RUL S/P ORIF (open reduction internal fixation) fracture fracture hip x 5 and then had ORIF Subcapsular hemorrhage of spleen Thrombocytosis (Chronic) Surgical History H/O mastectomy modified radical masectomy H/O: hysterectomy (Chronic) History of cholecystectomy Hx of esophagogastroduodenoscopy Status post mastectomy (Inactive) "modified right mastectomy 1990" Status post total hip replacement, left (Chronic) had after ORIF hip Family History Other Unknown family medical history Social History Smoking Status: Current some day smoker Tobacco Type: Cigarettes packs per day: 1; Second Hand Exposure: No; Do You Dip or Chew Tobacco: No; Tobacco Cessation Education Requested by Patient: No Hx Alcohol Use: No Hx Substance Use: No Preferred Language: Mohawk Communication Ability: Effective [place] Wet Process Required: No Beliefs That Will Affect Care: None marital status: / Current Living Situation: Family How many Children do You have: 2 Feels Safe at Home: Yes Safety Concerns: Feels Safe At This Time Review of Systems Review of Systems: ROS per HPI, all other systems reviewed and negative Physical Exam Constitutional: + thin Vitals as above Eyes: PERRL, conjunctivae normal, anicteric sclerae ENMT: Ears: no external ear abnormality Nose: no external nose abnormality Mouth: + edentulous Respiratory: normal respiratory effort; no respiratory distress Auscultation: + diminished lung sounds Cardiovascular: Rate/Rhythm: regular rate and regular rhythm Vessels: normal peripheral pulses Extremities: no edema Gastrointestinal (Abdomen): Inspection/Auscultation: normal bowel sounds Percussion/Palpation: + abdomen tender (LUQ) and abdomen soft Musculoskeletal: no cyanosis or clubbing, extremities motor strength 5/5 Skin: no rashes, warm and dry Neurologic: PERRL, EOMI, accommodation nl, no face palsy, no dysarthria Psychiatric: A+Ox3, euthymic affect Results & Data Results & Data ([facility]) Vital Signs (Past 12 Hours) Vital Signs Temp Pulse Pulse Resp BP BP Pulse Ox 04/01/20 19:46 78 18 118/59 L 95 04/01/20 19:45 79 18 118/59 L 04/01/20 19:31 83 18 126/68 96 07/29/20 19:30 83 18 126/68 92 04/01/20 19:15 79 18 119/61 93 04/01/20 19:07 37.0 C 76 20 116/61 97 04/01/20 19:06 75 20 116/61 96 04/01/20 18:49 95 04/01/20 18:48 74 20 115/60 95 04/01/20 17:01 78 19 97 04/01/20 17:00 79 18 111/58 L 95 04/01/20 16:45 37 C 04/01/20 16:42 97 04/01/20 16:36 80 18 105/58 L 97 04/01/20 15:58 89 24 92/50 L 93 Laboratory Results Short CBC 04/01/20 Range/Units 17:01 WBC 5.32 (4.8-10.8) K/uL Hgb 6.2 L* (12.0-16.0) g/dL Hct 19.9 L* (37-47) % Plt Count 359 (130-400) K/uL BMP 04/01/20 17:01 Sodium 140 Potassium 4.6 Chloride 114 H Carbon Dioxide 20 L BUN 31 H Creatinine 1.60 H Glucose 86 Calcium 8.1 L Cardiac Enzymes 04/01/20 Range/Units 17:01 Troponin I 0.101 H* (0-0.045) ng/ml Liver Function 04/01/20 Range/Units 17:01 Total Bilirubin 0.4 (0.2-1) mg/dl AST 13 L (15-37) U/L ALT 8 L (12-78) U/L Alkaline Phosphatase 61 (45-117) U/L Albumin 3.3 L (3.4-5.0) gm/dl Urine 04/01/20 Range/Units 16:35 Urine Color Yellow Urine Appearance Clear (Clear) Urine pH 5.0 (4.5-7.5) Ur Specific [place] 1.022 (1.000-1.030) Urine Protein Negative (Negative) Urine Glucose (UA) Negative (Negative) Diagnostic Findings CXR IMPRESSION: Emphysema without acute process. Code Status & VTE Plan Code Status Patient is a full code as per my discussion with her. VTE Prophylaxis Plan VTE Prophylaxis will be ordered: Yes Supervising Physician Co-Signing Physician Notes Pt seen and examined by me, care coordinated with Tegan Love, CHEMICAL CHECKER, pls refer to her note above for further detail. Pt is a 79-year-old female with complex medical hx which includes COPD, myelodysplastic syndrome, thrombocytosis, PUD, pulmonary embolism, who presents to the ED by referral of outpatient oncologist for evaluation of anemia. Patient was recently admitted to [facility] 01/22 through 02/06 for acute on chronic hypoxic respiratory failure secondary to pneumonia and mucous plugging, pulmonary embolism, splenic infarct/hemorrhage. Anticoagulation for pulmonary embolism was not recommended due to underlying chronic anemia, PUD, splenic hemorrhage. Patient says she has never fully recovered from her recent hospitalizations, reports progressive generalized weakness and worsening exertional shortness of breath. She had routine labs performed today showing significant anemia, Hgb ~6. Given her symptoms, patient was referred to the ED for further evaluation. Patient also reports ongoing issues with left upper quadrant abdominal pain. Patient had a follow up abdominal ultrasound today that showed mild splenomegaly and loculated lower pole of the spleen with small areas of decreased echogenicity suggesting areas of splenic infarction; no evidence of hematoma or perisplenic fluid. Patient was evaluated for this during her last hospita lization, at that time general surgery was also consulted. There seems to be no progression. She reports taking tramadol, 50 mg every x hours as needed. Patient denies chest pain, lightheadedness, dizziness, diaphoresis, syncopal events. No nausea, vomiting, diarrhea. She denies bright red bleeding per rectum or dark tarry stools. No fevers or chills. In the ED, patient was found to have mildly elevated troponin 0.101. EKG showed new T wave inversions in the inferior and lateral leads. She is hemodynamically stable. IVF and 1 unit of PRBCs ordered, currently infusing. She is currently sitting up in bed, in no acute distress. She is alert and oriented and answering questions appropriately. She is breathing comfortably and speaking in full sentences, on room air. Heart sounds regular, lung sounds clear to auscultation bilaterally, without any wheezing, rhonchi or crackles. Abdomen is soft, somewhat tender to palpation at left upper quadrant, positive bowel sounds. Overall patient is very thin. Moves extremities spontaneously and without difficulty. Skin is warm, dry, well perfused. We will recheck H&H after transfusion, transfuse as needed, monitor vital signs, monitor on telemetry, repeat EKG in a.m. A. Dong, MD (1) Anemia Anemia type: unspecified type Qualified Code(s): D64.9 - Anemia, unspecified (2) COPD (chronic obstructive pulmonary disease) COPD type: unspecified COPD Qualified Code(s): J44.9 - Chronic obstructive pulmonary disease, unspecified
[2020-04-01] MEDS ORDERED: TEMAZEPAM 15 MG CAPSULE PO PRN (20:58)
[2020-04-01] MEDS ORDERED: TRAMADOL HCL 50 MG TABLET PO PRN (20:58)
[2020-04-01] MEDS ORDERED: HYDROXYUREA 500 MG CAP PO SCH (21:00)
[2020-04-01] MEDS ORDERED: TRAZODONE HCL 50 MG TAB PO SCH (21:00)
[2020-04-01] MEDS: PANTOprazole 40 MG TAB PO SCH (21:34)
[2020-04-01] MEDS: SUCRALFATE 1 GM TAB PO SCH (21:34)
[2020-04-01] MEDS: AMITRIPTYLINE HCL 25 MG TAB PO SCH (21:34)
[2020-04-01] MEDS: PREGABALIN 75 MG CAP PO SCH (21:40)
[2020-04-02] MEDS: ACETAMINOPHEN 325 MG TAB PO PRN (03:23)
[2020-04-02 04:02] LABS: Hematocrit (blood only) 27.3 % (37-47); Hemoglobin 8.8 g/dL (12.0-16.0); Mean Corpuscular Hemoglobin 31.7 pg (25-34); Mean Corpuscular Hgb Conc 32.2 g/dL (32-36); Mean Corpuscular Volume 98.2 fL (80-100); Mean Platelet Volume 11.5 fL (7.4-10.4); Nucleated RBC # (auto) 0.05 K/uL (0-0); Nucleated RBC % (auto) 3.8 %; Platelet Count 277 K/uL (130-400); RDW Coefficient of Variation 28.4 % (11.5-14.5); RDW Standard Deviation 76.7 fL (36.4-46.3); Red Blood Count 2.78 M/uL (4.2-5.4); White Blood Count 1.25 K/uL (4.8-10.8)
[2020-04-02 04:14] LABS: BUN Creatinine Ratio 25.5 (10-20); Calcium 7.9 mg/dl (8.5-10.1); Creatinine Clr Calc Pharmacy 31.3 ml/min; Est GFR (African American) 53.2; Est GFR (Non-African American) 45.9; Potassium 4.1 mmol/L (3.5-5.1)
[2020-04-02] MEDS ORDERED: ACETAMINOPHEN 325 MG TAB PO STA (04:20)
[2020-04-02] MEDS ORDERED: XOPENEX/ATROVENT 1.25mg/0.5MG NEB COMBO NEB PRN (04:21)
[2020-04-02 04:28] LABS: Troponin I 0.103 ng/ml (0-0.045)
[2020-04-02] MEDS ORDERED: LEVALBUTEROL 1.25MG/0.5ML NEB INH PRN (04:30)
[2020-04-02] MEDS ORDERED: IPRATROPIUM BROMIDE NEB SOLN 0.02% 2.5 ML VIAL INH PRN (04:30)
[2020-04-02 04:36] LABS: Magnesium 1.8 mg/dl (1.8-2.4)
[2020-04-02] MEDS ORDERED: SODIUM CHLORIDE 0.45 % 500 ML IV ONE (04:40)
--- NOTE | 2020-04-02 04:43 | Communication Note ---
Date of Service: April 02, 2020 Made aware by RN of fever spikes during/post blood transfusion. Patient later noted to be tachycardic as per RN. WBC 1.25 AP Neutropenia ? Secondary to Hydrea Rx Possible sepsis, febrile transfusion reaction Hold Hydrea for now. Cultures, check lactic acid, procalcitonin Initiate Cefepime Rx for possible complicated UTI if procal elevated . Will relay to AM provider.
[2020-04-02] MEDS ORDERED: SODIUM CHLORIDE 0.45 % 500 ML IV SCH (04:45)
[2020-04-02] MEDS ORDERED: MAGNESIUM SULFATE / D5W 1 GM/100 ML BAG IV ONE (05:00)
[2020-04-02 06:35] LABS: Partial Thromboplastin Ratio 0.9; Partial Thromboplastin Time 24.9 Seconds (21.0-31.0)
[2020-04-02] MEDS ORDERED: NALOXONE HCL 0.4 MG/1 ML VIAL/CARP IV STA (07:13)
[2020-04-02] MEDS ORDERED: CEFEPIME CONSULT ACTIVE PRN (07:33)
--- NOTE | 2020-04-02 07:40 | XRay Report ---
XR chest 1V portable CLINICAL HISTORY: Hypoxia COMPARISON STUDY: 04/01/2020 FINDINGS: The heart is normal in size. There is underlying emphysema. Increased density in the right lower lung zone may be secondary to an overlying breast implant. There is no lobar consolidation. Deg enerative and cystic changes involve the proximal left humerus. Surgical clips are visualized in the right axillary region[. There are left hilar calcifications likely postinflammatory. IMPRESSION: No significant change from the preceding study. Increased density of the right hemithorax likely is secondary to an overlying breast prosthesis. ACT 112: Negative or not required by law. Electronically signed by: Sher Lira M.D. 04/02/2020 7:38 AM
--- NOTE | 2020-04-02 08:35 | Electrocardiogram Report ---
Test Reason : Blood Pressure : / mmHG Vent. Rate : 081 BPM Atrial Rate : 081 BPM P-R Int : 148 ms QRS Dur : 096 ms QT Int : 460 ms P-R-T Axes : 076 066 269 degrees QTc Int : 534 ms Poor data quality, interpretation may be adversely affected Normal sinus rhythm with sinus arrhythmia Incomplete right bundle branch block Prolonged QT Abnormal ECG When compared with ECG of 23-JAN-2020 07:12, Vent. rate has decreased BY 44 BPM T wave inversion now evident in Inferior leads T wave inversion more evident in Anterolateral leads Confirmed by Caleb Lomeli ([id number]) on 04/02/2020 8:35:41 AM Referred By: Valerie Chavez Confirmed By:Caleb Lomeli
[2020-04-02 08:46] LABS: HCO3 ABG 21 mmol/L (19-24); Oxygen Saturation ABG 97.4 % (90-95); PCO2 ABG 37 mmHg (35-46); PO2 ABG 98 mmHg (80-95); pH ABG 7.37 (7.35-7.45)
[2020-04-02 08:47] LABS: Allen Test Pos (Pos)
[2020-04-02] MEDS: PREGABALIN 75 MG CAP PO SCH ×2 (09:49→20:18)
[2020-04-02] MEDS: PANTOprazole 40 MG TAB PO SCH ×2 (09:50→20:18)
[2020-04-02] MEDS: SUCRALFATE 1 GM TAB PO SCH ×4 (09:51→20:16)
[2020-04-02] MEDS: CEFEPIME 2,000 MG in SYRINGE 7.5 ML IV SCH ×2 (09:53→20:16)
[2020-04-02] MEDS: FLUTICASONE/VILANTEROL 200/25MCG 14 PUFFS/INHALER INH SCH (09:53)
[2020-04-02] MEDS: UMECLIDINIUM BROMIDE 62.5MCG/BLISTER 7 PUFFS/INHALER INH SCH (09:54)
--- NOTE | 2020-04-02 15:00 | Hospitalist Progress Note ---
Date of Service April 02, 2020 Assessment & Plan (1) Anemia: Anemia H/O Bleeding duodenal ulcer (12/2019), MDS, subcapsular hemorrhage of spleen (01/2020) Likely due to MDS Patient denies any bleeding issues S/P PRBCs Monitor H&H Leukopenia Fever Unclear source of infection CXR:No significant change from the preceding study. Increased density of the right hemithorax likely is secondary to an overlying breast prosthesis. Normal lactate, elevated procalcitonin levels Blood/Urine Cx pending Hydroxyurea held CT ABD pending On Empiric Abx Chronic abdominal Pain H/O subcapsular hemorrhage of spleen CT abdomen pending (2) Elevated troponin: (3) Abnormal ECG: Chronic troponin elevation Could have Type II PA from anemia Repeat EKG--less pronounced T wave changes Patient denies chest pain ECHO pending Prolonged QTC Avoid QTC prolonging agents Tramadol held Monitor QTC Acute Metabolic Encephalopathy DD: toxic encephalopathy Tramadol discontinued Trazodone decreased to 25 mg Temazepam decreased to 15 mg Monitor (4) DEISY (acute kidney injury): Cr:1.6>>1.15 Received IV fluids Monitor renal function Avoid nephrotoxic agents as able (5) Subcapsular hemorrhage of spleen: CT ABD Pending (6) Pulmonary emboli: CTA chest 01/28/2020 showed subacute/chronic pulmonary embolism Not receiving anticoagulation due to underlying anemia, MDS, splenic hemorrhage (7) History of peptic ulcer disease: Continue PPI (8) Myelodysplastic syndrome: (9) Thrombocytosis: MDS Thrombocytosis Platelets within normal limits Hold hydroxyurea due to Leukopenia Follows with Dr. Mainor Chavez Monitor CBC (10) COPD (chronic obstructive pulmonary disease): Stable No signs of acute exacerbation Continue home inhalers (11) DVT prophylaxis: SCDs Re: Anemia Admission and Anticipated Discharge Date Admission Date: April 01, 2020 Subjective Patient is seen and examined at bedside Was drowsy this morning but oriented States having chronic left-sided abdominal pain Denies any chest pain, shortness of breath, dizziness, nausea Low WBC count, Fever noted this morning No other complaints Review of Systems Review of Systems: All systems reviewed & are unremarkable except as noted in HPI & below Physical Exam Physical Exam: Physical Exam: Vitals signs as noted above General Appearance:Thin, frail, chronic ill appearing, no apparent distress Head: normocephalic, Atraumatic Eyes: normal inspection, EOMI Neck: supple, Trachea midline Respiratory/Chest: Decreased breath sounds, CTA, No accessory muscle use Chest: R breast Implant Cardiovascular: S1, S2, No murmur Abdomen/GI:Soft, LLQ tender, Bowel sounds present Extremities/Musculoskelatal:normal inspection, no edema Neurologic/Psych:AAOX3, grossly no focal neurological deficits Skin: normal color, warm Results & Data Results & Data ([facility]) Vital Signs (Past 12 Hours) Vital Signs Temp Pulse Pulse Resp BP BP Pulse Ox 04/02/20 11:40 36.9 C 74 16 105/54 L 95 04/02/20 07:49 37.8 C H 93 H 16 107/63 96 04/02/20 07:40 94 H 04/02/20 07:22 37.5 C 90 18 95/59 L 97 04/02/20 05:04 38.4 C H 104 H 20 100/63 96 04/02/20 04:25 99 04/02/20 04:15 39 C H 88 L 04/02/20 03:14 37.8 C H 120 H 18 150/70 H 91 Laboratory Results Short CBC 04/01/20 04/02/20 Range/Units 17:01 03:25 WBC 5.32 1.25 L (4.8-10.8) K/uL Hgb 6.2 L* 8.8 L (12.0-16.0) g/dL Hct 19.9 L* 27.3 L (37-47) % Plt Count 359 277 (130-400) K/uL BMP 04/01/20 04/02/20 17:01 03:25 Sodium 140 145 Potassium 4.6 4.1 Chloride 114 H 119 H Carbon Dioxide 20 L 20 L BUN 31 H 29 H Creatinine 1.60 H 1.15 D Glucose 86 93 Calcium 8.1 L 7.9 L Cardiac Enzymes 04/01/20 04/02/20 04/02/20 Range/Units 17:01 03:25 06:13 Troponin I 0.101 H* 0.103 H* 0.120 H* (0-0.045) ng/ml Liver Function 04/01/20 Range/Units 17:01 Total Bilirubin 0.4 (0.2-1) mg/dl AST 13 L (15-37) U/L ALT 8 L (12-78) U/L Alkaline Phosphatase 61 (45-117) U/L Albumin 3.3 L (3.4-5.0) gm/dl Urine 04/01/20 Range/Units 16:35 Urine Color Yellow Urine Appearance Clear (Clear) Urine pH 5.0 (4.5-7.5) Ur Specific [place] 1.022 (1.000-1.030) Urine Protein Negative (Negative) Urine Glucose (UA) Negative (Negative) (1) Anemia Anemia type: unspecified type Qualified Code(s): D64.9 - Anemia, unspecified (2) COPD (chronic obstructive pulmonary disease) COPD type: unspecified COPD Qualified Code(s): J44.9 - Chronic obstructive pulmonary disease, unspecified
[2020-04-02 15:49] LABS: Hematocrit (blood only) 25.3 % (37-47); Hemoglobin 8.1 g/dL (12.0-16.0)
--- NOTE | 2020-04-02 16:15 | Electrocardiogram Report ---
Test Reason : Blood Pressure : / mmHG Vent. Rate : 082 BPM Atrial Rate : 082 BPM P-R Int : 154 ms QRS Dur : 094 ms QT Int : 420 ms P-R-T Axes : 081 078 051 degrees QTc Int : 490 ms Normal sinus rhythm Incomplete right bundle branch block Prolonged QT Abnormal ECG When compared with ECG of 01-APR-2020 16:31, Nonspecific T wave abnormality has replaced inverted T waves in Inferior leads T wave inversion less evident in Anterolateral leads Confirmed by Caleb Lomeli ([id number]) on 04/02/2020 4:15:00 PM Referred By: Valerie Chavez Confirmed By:Caleb Lomeli
[2020-04-02] MEDS: TRAZODONE HCL 50 MG TAB PO SCH (20:17)
[2020-04-02] MEDS: AMITRIPTYLINE HCL 25 MG TAB PO SCH (20:18)
[2020-04-02] MEDS: TEMAZEPAM 15 MG CAPSULE PO PRN (20:18)
[2020-04-03 06:09] LABS: Basophils # (auto) 0.09 K/uL (0-0.2); Basophils % (auto) 2.1 %; Eosinophils # (auto) 0.08 K/uL (0-0.5); Eosinophils % (auto) 1.9 %; Hematocrit (blood only) 28.3 % (37-47); Immature Granulocytes # (auto) 0.02 K/uL (0.00-0.02); Immature Granulocytes % (auto) 0.5 %; Lymphocytes # (auto) 0.69 K/uL (1.2-3.4); Mean Corpuscular Hgb Conc 31.8 g/dL (32-36); Mean Corpuscular Volume 100.7 fL (80-100); Mean Platelet Volume 12.1 fL (7.4-10.4); Monocytes % (auto) 16.2 %; Neutrophils # (auto) 2.74 K/uL (1.4-6.5); Neutrophils % (auto) 63.3 %; Platelet Count 343 K/uL (130-400); RDW Coefficient of Variation 29.8 % (11.5-14.5); RDW Standard Deviation 93.4 fL (36.4-46.3); Red Blood Count 2.81 M/uL (4.2-5.4); White Blood Count 4.32 K/uL (4.8-10.8)
[2020-04-03] MEDS: ACETAMINOPHEN 325 MG TAB PO PRN ×4 (06:33→23:39)
[2020-04-03 06:35] LABS: Anisocytosis Present; Poikilocytosis Present
[2020-04-03 06:41] LABS: BUN Creatinine Ratio 23.1 (10-20); Calcium 8.2 mg/dl (8.5-10.1); Creatinine Clr Calc Pharmacy 42.6 ml/min; Est GFR (African American) 71.5; Est GFR (Non-African American) 61.7; Potassium 4.3 mmol/L (3.5-5.1)
[2020-04-03] MEDS: CEFEPIME 2,000 MG in SYRINGE 7.5 ML IV SCH ×2 (07:58→20:09)
[2020-04-03] MEDS: PANTOprazole 40 MG TAB PO SCH ×2 (07:59→20:10)
[2020-04-03] MEDS: SUCRALFATE 1 GM TAB PO SCH ×5 (07:59→20:09)
[2020-04-03] MEDS: FLUTICASONE/VILANTEROL 200/25MCG 14 PUFFS/INHALER INH SCH (08:00)
[2020-04-03] MEDS: UMECLIDINIUM BROMIDE 62.5MCG/BLISTER 7 PUFFS/INHALER INH SCH (08:00)
[2020-04-03] MEDS: PREGABALIN 75 MG CAP PO SCH ×2 (08:03→20:10)
[2020-04-03] MEDS: PROMETHAZINE HCL 6.25 MG in SODIUM CHLORIDE 0.9% 50 ML IV PRN ×2 (10:33→17:13)
--- NOTE | 2020-04-03 11:48 | CT Scan Report ---
CT OF THE ABDOMEN AND PELVIS WITHOUT CONTRAST CLINICAL HISTORY: ? Splenic infarct, abdominal pain COMPARISON STUDY: CT of the abdomen February 03, 2020. Splenic ultrasound April 01, 2020. TECHNIQUE: Axial images of the abdomen and pelvis were obtained without IV contrast. Images were revi ewed in the axial, sagittal, and coronal planes. Automated exposure control was utilized for the monica dy. A dose lowering technique was utilized adhering to the principles of ALARA. FINDINGS: Emphysema within the lower lungs is noted. There is mild left lower lobe airspace opacity. Left lower lobe airspace opacity has significantly decreased since CT of February 03, 2020. No pneumatosis , free air or portal venous gas is present. A right breast implant is partially imaged. Old T11 compr ession deformity is noted. There is a left hip arthroplasty. Note is made of an subacute fracture of the left ischial tuberosity which is unchanged in appearance. Evaluation of the abdomen and pelvis is suboptimal on this unenhanced examination. There is no significant biliary ductal dilatation status post cholecystectomy. The liver, adrenal glands and kidneys are unremarkable with exception of a wate r attenuation right renal lesion which were shown to reflect a cyst on prior contrast enhanced CT. Mo derate splenomegaly is again noted. There are multiple hypodense foci within the spleen which favor e volving infarcts. These are suboptimally assessed on this unenhanced examination. There is sigmoid di verticulosis. There is mild wall thickening of the sigmoid colon. Trace ascites within the pelvis is noted. There is no evidence for a bowel obstruction. Periprosthetic lucency adjacent to the femoral c omponent of the left hip arthroplasty is unchanged. IMPRESSION: 1. Moderate splenomegaly. Multiple hypodense foci within the spleen which favor evolving infarcts alt [place] are suboptimally assessed on this unenhanced examination. 2. Mild wall thickening of the sigmoid colon trace. This is likely due to underdistention although a nonspecific colitis or diverticulitis cannot be excluded. No free air or abscess. No bowel obstructio n. ACT 112: Negative or not required by law. Electronically signed by: Constantin Richter M.D. 04/03/2020 11:46 AM
[2020-04-03] MEDS ORDERED: TRAMADOL HCL 50 MG TABLET PO ONE (13:08)
--- NOTE | 2020-04-03 18:33 | Hospitalist Progress Note ---
Date of Service April 03, 2020 Assessment & Plan (1) Anemia: Anemia H/O Bleeding duodenal ulcer (12/2019), MDS, subcapsular hemorrhage of spleen (01/2020) Likely due to MDS/Splenomegaly Patient denies any bleeding issues S/P PRBCs Monitor H&H Hb Stable Discussed with Oncology on 04/03/20: OK to hold Hydroxyurea Leukopenia Fever Unclear source of infection CXR:No significant change from the preceding study. Increased density of the right hemithorax likely is secondary to an overlying breast prosthesis. Normal lactate, elevated procalcitonin levels Blood Culture: no growth to date Urine Culture: Negative Hydroxyurea held CT ABD as below Continue empiric Abx Monitor CBC Diarrhea Chronic abdominal Pain: Likely due to splenic infarcts/Splenomegaly (Chronic) H/O subcapsular hemorrhage of spleen --CT abdomen: Moderate splenomegaly. Multiple hypodense foci within the spleen which favor evolving infarcts although are suboptimally assessed on this unenhanced examination. Mild wall thickening of the sigmoid colon trace. This is likely due to underdistention although a nonspecific colitis or diverticulitis cannot be excluded. No free air or abscess. No bowel obstruction. --Cautious use of pain meds --Stool studies to R/O C diff (2) Elevated troponin: (3) Abnormal ECG: Chronic troponin elevation Could have Type II [place] from anemia Repeat EKG--less pronounced T wave changes Patient denies chest pain ECHO: No regional wall motion abnormality Prolonged QTC Avoid QTC prolonging agents Tramadol held Monitor QTC Acute Metabolic Encephalopathy DD: toxic encephalopathy Tramadol discontinued Trazodone decreased to 25 mg Temazepam decreased to 15 mg Mental status seemed to back to baseline monitor (4) DEISY (acute kidney injury): Cr:1.6>>1.15>>0.90 Received IV fluids Monitor renal function Avoid nephrotoxic agents as able (5) Subcapsular hemorrhage of spleen: CT ABD as above (6) Pulmonary emboli: CTA chest 01/28/2020 showed subacute/chronic pulmonary embolism Not receiving anticoagulation due to underlying anemia, MDS, splenic hemorrhage (7) History of peptic ulcer disease: Continue PPI (8) Myelodysplastic syndrome: (9) Thrombocytosis: MDS Thrombocytosis Platelets within normal limits Hold hydroxyurea due to Leukopenia Follows with Dr. Mainor Chavez Monitor CBC (10) COPD (chronic obstructive pulmonary disease): Stable No signs of acute exacerbation Continue home inhalers (11) DVT prophylaxis: SCDs Re: Anemia Admission and Anticipated Discharge Date Admission Date: April 01, 2020 Subjective Patient is seen and examined at bedside Mental status back to baseline today Complains of nausea but no vomiting Also states having headache and diarrhea Chronic left lower quadrant pain Discussed with oncology Dr. Chavez today Denies any chest pain, shortness of breath WBC count trending up Review of Systems Review of Systems: All systems reviewed & are unremarkable except as noted in HPI & below Physical Exam Physical Exam: Physical Exam: Vitals signs as noted above General Appearance:Thin, frail, chronic ill appearing, no apparent distress Head: normocephalic, Atraumatic Eyes: normal inspection, EOMI Neck: supple, Trachea midline Respiratory/Chest: Decreased breath sounds, CTA, No accessory muscle use Chest: R breast Implant Cardiovascular: S1, S2, No murmur Abdomen/GI:Soft, LLQ tender, Bowel sounds present Extremities/Musculoskelatal:normal inspection, no edema Neurologic/Psych:AAOX3, grossly no focal neurological deficits Skin: normal color, warm Results & Data Results & Data ([facility]) Vital Signs (Past 12 Hours) Vital Signs Temp Pulse Pulse Resp BP BP Pulse Ox 04/03/20 16:00 96 H 04/03/20 15:46 37.5 C 95 H 18 111/77 94 04/03/20 07:45 96 H 04/03/20 07:37 37.3 C 93 H 16 138/85 96 Laboratory Results Short CBC 04/03/20 Range/Units 05:41 WBC 4.32 L (4.8-10.8) K/uL Hgb 9.0 L (12.0-16.0) g/dL Hct 28.3 L (37-47) % Plt Count 343 (130-400) K/uL BMP 04/03/20 05:41 Sodium 142 Potassium 4.3 Chloride 115 H Carbon Dioxide 20 L BUN 21 H Creatinine 0.90 Glucose 91 Calcium 8.2 L (1) Anemia Anemia type: unspecified type Qualified Code(s): D64.9 - Anemia, unspecified (2) COPD (chronic obstructive pulmonary disease) COPD type: unspecified COPD Qualified Code(s): J44.9 - Chronic obstructive pulmonary disease, unspecified
[2020-04-03] MEDS: AMITRIPTYLINE HCL 25 MG TAB PO SCH (20:10)
[2020-04-03] MEDS: TRAZODONE HCL 50 MG TAB PO SCH (22:04)
[2020-04-04] MEDS: PROMETHAZINE HCL 6.25 MG in SODIUM CHLORIDE 0.9% 50 ML IV PRN ×3 (00:35→22:26)
[2020-04-04 06:34] LABS: Basophils # (auto) 0.05 K/uL (0-0.2); Hematocrit (blood only) 28.7 % (37-47); Immature Granulocytes # (auto) 0.01 K/uL (0.00-0.02); Immature Granulocytes % (auto) 0.2 %; Lymphocytes # (auto) 1.17 K/uL (1.2-3.4); Lymphocytes % (auto) 23.2 %; Mean Corpuscular Hgb Conc 31.4 g/dL (32-36); Mean Corpuscular Volume 102.1 fL (80-100); Monocytes # (auto) 0.95 K/uL (0.11-0.59); Monocytes % (auto) 18.8 %; Neutrophils # (auto) 2.76 K/uL (1.4-6.5); Neutrophils % (auto) 54.8 %; Platelet Count 299 K/uL (130-400); RDW Coefficient of Variation 29.5 % (11.5-14.5); RDW Standard Deviation 99.7 fL (36.4-46.3); Red Blood Count 2.81 M/uL (4.2-5.4); White Blood Count 5.04 K/uL (4.8-10.8)
--- NOTE | 2020-04-04 06:58 | Electrocardiogram Report ---
Test Reason : Blood Pressure : / mmHG Vent. Rate : 098 BPM Atrial Rate : 098 BPM P-R Int : 150 ms QRS Dur : 088 ms QT Int : 406 ms P-R-T Axes : 076 077 079 degrees QTc Int : 518 ms Normal sinus rhythm Prolonged QT Abnormal ECG When compared with ECG of 02-APR-2020 09:34, Nonspecific T wave abnormality, improved in Inferior leads Confirmed by John Woodson ([id number]) on 04/04/2020 6:57:56 AM Referred By: Valerie Chavez Confirmed By:John Woodson
[2020-04-04 07:02] LABS: BUN Creatinine Ratio 20.7 (10-20); Calcium 8.6 mg/dl (8.5-10.1); Creatinine Clr Calc Pharmacy 36.3 ml/min; Est GFR (African American) 65.3; Est GFR (Non-African American) 56.3; Potassium 4.1 mmol/L (3.5-5.1)
[2020-04-04 07:06] LABS: Anisocytosis Present; Giant Platelets 1+; Poikilocytosis Present
[2020-04-04] MEDS: SUCRALFATE 1 GM TAB PO SCH ×4 (07:33→20:25)
[2020-04-04] MEDS: CEFEPIME 2,000 MG in SYRINGE 7.5 ML IV SCH ×2 (07:36→20:34)
[2020-04-04] MEDS: UMECLIDINIUM BROMIDE 62.5MCG/BLISTER 7 PUFFS/INHALER INH SCH (07:42)
[2020-04-04] MEDS: FLUTICASONE/VILANTEROL 200/25MCG 14 PUFFS/INHALER INH SCH (07:43)
[2020-04-04] MEDS: PREGABALIN 75 MG CAP PO SCH ×2 (07:43→20:26)
[2020-04-04] MEDS: PANTOprazole 40 MG TAB PO SCH ×2 (07:43→20:26)
[2020-04-04] MEDS ORDERED: TRAMADOL HCL 50 MG TABLET PO PRN (12:37)
[2020-04-04] MEDS: ACETAMINOPHEN 325 MG TAB PO PRN (14:57)
--- NOTE | 2020-04-04 17:44 | Hospitalist Progress Note ---
Date of Service April 04, 2020 Assessment & Plan (1) Anemia: Anemia H/O Bleeding duodenal ulcer (12/2019), MDS, subcapsular hemorrhage of spleen (01/2020) Likely due to MDS/Splenomegaly Patient denies any bleeding issues S/P PRBCs Monitor H&H Discussed with Oncology on 04/03/20: OK to hold Hydroxyurea Hb stable Leukopenia Fever Unclear source of infection CXR:No significant change from the preceding study. Increased density of the right hemithorax likely is secondary to an overlying breast prosthesis. Normal lactate, elevated procalcitonin levels Blood Culture: no growth to date Urine Culture: Negative Hydroxyurea held CT ABD as below Continue empiric Abx Monitor CBC Check MRSA screen, Procalcitonin in AM Repeat CXR Stool studies pending Diarrhea Chronic abdominal Pain: Likely due to splenic infarcts/Splenomegaly (Chronic) H/O subcapsular hemorrhage of spleen --CT abdomen: Moderate splenomegaly. Multiple hypodense foci within the spleen which favor evolving infarcts although are suboptimally assessed on this unenhanced examination. Mild wall thickening of the sigmoid colon trace. This is likely due to underdistention although a nonspecific colitis or diverticulitis cannot be excluded. No free air or abscess. No bowel obstruction. --Cautious use of pain meds --Stool studies to R/O C diff--pending (2) Elevated troponin: (3) Abnormal ECG: Chronic troponin elevation Could have Type II [place] from anemia Repeat EKG--less pronounced T wave changes Patient denies chest pain ECHO: No regional wall motion abnormality Prolonged QTC Avoid QTC prolonging agents Tramadol held Monitor QTC Acute Metabolic Encephalopathy DD: toxic encephalopathy Tramadol discontinued Trazodone decreased to 25 mg Temazepam decreased to 15 mg Mental status seemed to back to baseline monitor (4) DEISY (acute kidney injury): Cr:1.6>>1.15>>0.9 Received IV fluids Monitor renal function Avoid nephrotoxic agents as able (5) Subcapsular hemorrhage of spleen: CT ABD as above (6) Pulmonary emboli: CTA chest 01/28/2020 showed subacute/chronic pulmonary embolism Not receiving anticoagulation due to underlying anemia, MDS, splenic hemorrhage (7) History of peptic ulcer disease: Continue PPI (8) Myelodysplastic syndrome: (9) Thrombocytosis: MDS Thrombocytosis Platelets within normal limits Hold hydroxyurea due to Leukopenia Follows with Dr. Mainor Chavez Monitor CBC (10) COPD (chronic obstructive pulmonary disease): Stable No signs of acute exacerbation Continue home inhalers Chronic Moderate protein-calorie malnutrition Dietary Supplements (11) DVT prophylaxis: SCDs Re: Anemia Admission and Anticipated Discharge Date Admission Date: April 01, 2020 Subjective Patient is seen and examined at bedside States feeling tired Reports nausea but no vomiting Low grade fever today Continues to have diarrhea Chronic left lower quadrant pain Denies any chest pain, shortness of breath WBC count towards normal Review of Systems Review of Systems: All systems reviewed & are unremarkable except as noted in HPI & below Physical Exam Physical Exam: Physical Exam: Vitals signs as noted above General Appearance:Thin, frail, chronic ill appearing, no apparent distress Head: normocephalic, Atraumatic Eyes: normal inspection, EOMI Neck: supple, Trachea midline Respiratory/Chest: Decreased breath sounds, CTA, No accessory muscle use Chest: R breast Implant Cardiovascular: S1, S2, No murmur Abdomen/GI:Soft, LLQ tender, Bowel sounds present Extremities/Musculoskelatal:normal inspection, no edema Neurologic/Psych:AAOX3, grossly no focal neurological deficits Skin: normal color, warm Results & Data Results & Data ([facility]) Vital Signs (Past 12 Hours) Vital Signs Temp Pulse Pulse Resp BP BP Pulse Ox 04/04/20 16:00 96 H 04/04/20 15:39 37.7 C H 97 H 18 135/82 93 04/04/20 11:55 37.1 C 53 L 18 129/79 91 04/04/20 07:45 37.3 C 59 L 18 116/73 97 04/04/20 07:00 106 H Laboratory Results Short CBC 04/04/20 Range/Units 06:07 WBC 5.04 (4.8-10.8) K/uL Hgb 9.0 L (12.0-16.0) g/dL Hct 28.7 L (37-47) % Plt Count 299 (130-400) K/uL BMP 04/04/20 06:07 Sodium 139 Potassium 4.1 Chloride 112 H Carbon Dioxide 19 L BUN 20 H Creatinine 0.97 Glucose 79 Calcium 8.6 (1) Anemia Anemia type: unspecified type Qualified Code(s): D64.9 - Anemia, unspecified (2) COPD (chronic obstructive pulmonary disease) COPD type: unspecified COPD Qualified Code(s): J44.9 - Chronic obstructive pulmonary disease, unspecified
[2020-04-04] MEDS: TRAZODONE HCL 50 MG TAB PO SCH (20:25)
[2020-04-04] MEDS: AMITRIPTYLINE HCL 25 MG TAB PO SCH (20:26)
[2020-04-04] MEDS: LACTOBACILLUS ACIDOPHILUS (FLORANEX) TAB PO SCH (20:26)
[2020-04-04] MEDS: TEMAZEPAM 15 MG CAPSULE PO PRN (20:26)
[2020-04-05] MEDS ORDERED: TEMAZEPAM 15 MG CAPSULE PO STA (01:39)
[2020-04-05 07:13] LABS: Basophils # (auto) 0.02 K/uL (0-0.2); Basophils % (auto) 0.4 %; Eosinophils # (auto) 0.22 K/uL (0-0.5); Eosinophils % (auto) 4.3 %; Hematocrit (blood only) 29.5 % (37-47); Hemoglobin 9.2 g/dL (12.0-16.0); Immature Granulocytes # (auto) 0.01 K/uL (0.00-0.02); Immature Granulocytes % (auto) 0.2 %; Lymphocytes # (auto) 1.32 K/uL (1.2-3.4); Lymphocytes % (auto) 25.9 %; Mean Corpuscular Hemoglobin 31.9 pg (25-34); Mean Corpuscular Hgb Conc 31.2 g/dL (32-36); Mean Corpuscular Volume 102.4 fL (80-100); Mean Platelet Volume 12.5 fL (7.4-10.4); Monocytes % (auto) 13.7 %; Neutrophils # (auto) 2.83 K/uL (1.4-6.5); Neutrophils % (auto) 55.5 %; Platelet Count 311 K/uL (130-400); RDW Coefficient of Variation 29.2 % (11.5-14.5); RDW Standard Deviation 101.4 fL (36.4-46.3); Red Blood Count 2.88 M/uL (4.2-5.4)
--- NOTE | 2020-04-05 07:17 | XRay Report ---
XR chest 1V portable CLINICAL HISTORY: Fever COMPARISON STUDY: 04/02/2020 FINDINGS: The cardiac and mediastinal contours remain stable. There are postsurgical changes of a rig ht mastectomy with a right breast implant. There is no focal pulmonary consolidation. There is no carola lure. 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 IMPRESSION: No acute findings ACT 112: Negative or not required by law. Electronically signed by: Sher Lira M.D. 04/05/2020 7:16 AM
[2020-04-05 07:30] LABS: BUN Creatinine Ratio 26.2 (10-20); Calcium 8.6 mg/dl (8.5-10.1); Creatinine Clr Calc Pharmacy 36.3 ml/min; Est GFR (African American) 65.3; Est GFR (Non-African American) 56.3; Potassium 3.8 mmol/L (3.5-5.1)
[2020-04-05 07:44] LABS: Anisocytosis Present; Giant Platelets 1+; Poikilocytosis Present
[2020-04-05] MEDS: PANTOprazole 40 MG TAB PO SCH ×2 (08:27→20:04)
[2020-04-05] MEDS: SUCRALFATE 1 GM TAB PO SCH ×4 (08:27→20:03)
[2020-04-05] MEDS: UMECLIDINIUM BROMIDE 62.5MCG/BLISTER 7 PUFFS/INHALER INH SCH (08:27)
[2020-04-05] MEDS: LACTOBACILLUS ACIDOPHILUS (FLORANEX) TAB PO SCH ×4 (08:27→20:04)
[2020-04-05] MEDS: CEFEPIME 2,000 MG in SYRINGE 7.5 ML IV SCH ×2 (08:27→20:03)
[2020-04-05] MEDS: PREGABALIN 75 MG CAP PO SCH ×2 (08:27→20:13)
[2020-04-05] MEDS: FLUTICASONE/VILANTEROL 200/25MCG 14 PUFFS/INHALER INH SCH (08:28)
--- NOTE | 2020-04-05 15:37 | Hospitalist Progress Note ---
Date of Service April 05, 2020 Assessment & Plan (1) Anemia: Anemia H/O Bleeding duodenal ulcer (12/2019), MDS, subcapsular hemorrhage of spleen (01/2020) Likely due to MDS/Splenomegaly Patient denies any bleeding issues S/P PRBCs Monitor H&H Discussed with Oncology on 04/03/20: OK to hold Hydroxyurea Hb stable Monitor CBC daily Leukopenia Fever Unclear source of infection CXR:No significant change from the preceding study. Increased density of the right hemithorax likely is secondary to an overlying breast prosthesis. Normal lactate, elevated procalcitonin levels Blood Culture: no growth to date Urine Culture: Negative MRSA Negative Hydroxyurea held CT ABD as below Continue empiric Abx Monitor CBC Procalcitonin trending down Repeat CXR: No acute findings COVID Screen pending Diarrhea Chronic abdominal Pain: Likely due to splenic infarcts/Splenomegaly (Chronic) H/O subcapsular hemorrhage of spleen --CT abdomen: Moderate splenomegaly. Multiple hypodense foci within the spleen which favor evolving infarcts although are suboptimally assessed on this unenhanced examination. Mild wall thickening of the sigmoid colon trace. This is likely due to underdistention although a nonspecific colitis or diverticulitis cannot be excluded. No free air or abscess. No bowel obstruction. --Cautious use of pain meds --Diarrhea improving (2) Elevated troponin: (3) Abnormal ECG: Chronic troponin elevation Could have Type II [place] from anemia Repeat EKG--less pronounced T wave changes Patient denies chest pain ECHO: No regional wall motion abnormality Prolonged QTC Avoid QTC prolonging agents Tramadol held Monitor QTC Acute Metabolic Encephalopathy DD: toxic encephalopathy Trazodone decreased to 25 mg Temazepam decreased to 15 mg Mental status seemed to back to baseline monitor (4) DEISY (acute kidney injury): Cr:1.6>>1.15>>0.9 Received IV fluids Monitor renal function Avoid nephrotoxic agents as able (5) Subcapsular hemorrhage of spleen: CT ABD as above (6) Pulmonary emboli: CTA chest 01/28/2020 showed subacute/chronic pulmonary embolism Not receiving anticoagulation due to underlying anemia, MDS, splenic hemorrhage (7) History of peptic ulcer disease: Continue PPI (8) Myelodysplastic syndrome: (9) Thrombocytosis: MDS Thrombocytosis Platelets within normal limits Hold hydroxyurea due to Leukopenia Follows with Dr. Mainor Chavez Monitor CBC (10) COPD (chronic obstructive pulmonary disease): Stable No signs of acute exacerbation Continue home inhalers Chronic Moderate protein-calorie malnutrition Dietary Supplements (11) DVT prophylaxis: SCDs Re: Anemia Admission and Anticipated Discharge Date Admission Date: April 01, 2020 Subjective Patient is seen and examined at bedside Semiformed BM today Denies abdominal pain Afebrile Denies any chest pain, shortness of breath Procalcitonin trending down Review of Systems Review of Systems: All systems reviewed & are unremarkable except as noted in HPI & below Physical Exam Physical Exam: Physical Exam: Vitals signs as noted above General Appearance:Thin, frail, chronic ill appearing, no apparent distress Head: normocephalic, Atraumatic Eyes: normal inspection, EOMI Neck: supple, Trachea midline Respiratory/Chest: Decreased breath sounds, CTA, No accessory muscle use Chest: R breast Implant Cardiovascular: S1, S2, No murmur Abdomen/GI:Soft, non tender, Bowel sounds present Extremities/Musculoskelatal:normal inspection, no edema Neurologic/Psych:AAOX3, grossly no focal neurological deficits Skin: normal color, warm Results & Data Results & Data ([facility]) Vital Signs (Past 12 Hours) Vital Signs Temp Pulse Pulse Resp BP Pulse Ox 04/05/20 11:33 36.3 C L 76 18 100/66 94 04/05/20 07:30 92 H 04/05/20 07:29 37.0 C 90 18 107/70 95 04/05/20 05:44 36.7 C 96 H 18 146/61 H 94 Laboratory Results Short CBC 04/05/20 Range/Units 06:40 WBC 5.10 (4.8-10.8) K/uL Hgb 9.2 L (12.0-16.0) g/dL Hct 29.5 L (37-47) % Plt Count 311 (130-400) K/uL BMP 04/05/20 06:40 Sodium 142 Potassium 3.8 Chloride 114 H Carbon Dioxide 20 L BUN 25 H Creatinine 0.97 Glucose 86 Calcium 8.6 (1) Anemia Anemia type: unspecified type Qualified Code(s): D64.9 - Anemia, unspecified (2) COPD (chronic obstructive pulmonary disease) COPD type: unspecified COPD Qualified Code(s): J44.9 - Chronic obstructive pulmonary disease, unspecified
[2020-04-05] MEDS: TRAZODONE HCL 50 MG TAB PO SCH ×2 (20:04→21:26)
[2020-04-05] MEDS: AMITRIPTYLINE HCL 25 MG TAB PO SCH (20:05)
[2020-04-05] MEDS: TEMAZEPAM 15 MG CAPSULE PO PRN (21:26)
[2020-04-06] MEDS: FLUTICASONE/VILANTEROL 200/25MCG 14 PUFFS/INHALER INH SCH (07:38)
[2020-04-06] MEDS: PANTOprazole 40 MG TAB PO SCH ×2 (07:38→20:56)
[2020-04-06] MEDS: SUCRALFATE 1 GM TAB PO SCH ×5 (07:38→20:54)
[2020-04-06] MEDS: UMECLIDINIUM BROMIDE 62.5MCG/BLISTER 7 PUFFS/INHALER INH SCH (07:38)
[2020-04-06] MEDS: LACTOBACILLUS ACIDOPHILUS (FLORANEX) TAB PO SCH ×6 (07:39→21:16)
[2020-04-06] MEDS: CEFEPIME 2,000 MG in SYRINGE 7.5 ML IV SCH ×2 (08:44→20:53)
[2020-04-06] MEDS: PREGABALIN 75 MG CAP PO SCH ×2 (08:44→21:02)
[2020-04-06 08:51] LABS: Hemoglobin 8.8 g/dL (12.0-16.0); Mean Corpuscular Hgb Conc 31.4 g/dL (32-36); Mean Corpuscular Volume 101.8 fL (80-100); Mean Platelet Volume 12.6 fL (7.4-10.4); Platelet Count 282 K/uL (130-400); RDW Coefficient of Variation 29.3 % (11.5-14.5); RDW Standard Deviation 100.3 fL (36.4-46.3); Red Blood Count 2.75 M/uL (4.2-5.4); White Blood Count 4.76 K/uL (4.8-10.8)
[2020-04-06] MEDS ORDERED: D5W AND 1/2NSS 1,000 ML IV SCH (11:45)
--- NOTE | 2020-04-06 17:40 | Hospitalist Progress Note ---
Date of Service April 06, 2020 Assessment & Plan (1) Anemia: Anemia H/O Bleeding duodenal ulcer (12/2019), MDS, subcapsular hemorrhage of spleen (01/2020) Likely due to MDS/Splenomegaly Patient denies any bleeding issues S/P PRBCs Monitor H&H Discussed with Oncology on 04/03/20: OK to hold Hydroxyurea Monitor CBC No bleeding issues Leukopenia Fever Unclear source of infection CXR:No significant change from the preceding study. Increased density of the right hemithorax likely is secondary to an overlying breast prosthesis. Normal lactate, elevated procalcitonin levels Blood Culture: no growth to date Urine Culture: Negative MRSA Negative Hydroxyurea held CT ABD as below Continue empiric Abx Monitor CBC Procalcitonin trended down Repeat CXR: No acute findings COVID Screen pending Gentle IV fluids Continue current management Diarrhea Chronic abdominal Pain: Likely due to splenic infarcts/Splenomegaly (Chronic) H/O subcapsular hemorrhage of spleen --CT abdomen: Moderate splenomegaly. Multiple hypodense foci within the spleen which favor evolving infarcts although are suboptimally assessed on this unenhanced examination. Mild wall thickening of the sigmoid colon trace. This is likely due to underdistention although a nonspecific colitis or diverticulitis cannot be excluded. No free air or abscess. No bowel obstruction. --Cautious use of pain meds --Diarrhea improved --IV fluids (2) Elevated troponin: (3) Abnormal ECG: Chronic troponin elevation Could have Type II [place] from anemia Repeat EKG--less pronounced T wave changes Patient denies chest pain ECHO: No regional wall motion abnormality Prolonged QTC Avoid QTC prolonging agents Tramadol held Monitor QTC Acute Metabolic Encephalopathy DD: toxic encephalopathy Resumed Trazodone, Temazepam Mental status seemed to back to baseline monitor (4) DEISY (acute kidney injury): Cr:1.6>>1.15>>0.9 Received IV fluids Monitor renal function Avoid nephrotoxic agents as able (5) Subcapsular hemorrhage of spleen: CT ABD as above (6) Pulmonary emboli: CTA chest 01/28/2020 showed subacute/chronic pulmonary embolism Not receiving anticoagulation due to underlying anemia, MDS, splenic hemorrhage (7) History of peptic ulcer disease: Continue PPI (8) Myelodysplastic syndrome: (9) Thrombocytosis: MDS Thrombocytosis Platelets within normal limits Hold hydroxyurea due to Leukopenia Follows with Dr. Mainor Chavez Monitor CBC (10) COPD (chronic obstructive pulmonary disease): Stable No signs of acute exacerbation Continue home inhalers Chronic Moderate protein-calorie malnutrition Poor Appetite Dietary Supplements (11) DVT prophylaxis: SCDs Re: Anemia Admission and Anticipated Discharge Date Admission Date: April 01, 2020 Subjective Patient is seen and examined at bedside States having generalized weakness Diarrhea continues to improve Denies any significant abdominal pain Poor oral intake due to lack of appetite Denies any chest pain, shortness of breath, dizziness Offers no other complaints Review of Systems Review of Systems: All systems reviewed & are unremarkable except as noted in HPI & below Physical Exam Physical Exam: Physical Exam: Vitals signs as noted above General Appearance:Thin, frail, chronic ill appearing, no apparent distress Head: normocephalic, Atraumatic Eyes: normal inspection, EOMI Neck: supple, Trachea midline Respiratory/Chest: Decreased breath sounds, CTA, No accessory muscle use Chest: R breast Implant Cardiovascular: S1, S2, No murmur Abdomen/GI:Soft, non tender, Bowel sounds present Extremities/Musculoskelatal:normal inspection, no edema Neurologic/Psych:AAOX3, grossly no focal neurological deficits Skin: normal color, warm Results & Data Results & Data ([facility]) Vital Signs (Past 12 Hours) Vital Signs Temp Pulse Pulse Resp BP BP Pulse Ox 04/06/20 16:09 81 04/06/20 15:29 37.1 C 83 16 94/51 L 98 04/06/20 11:10 84/51 L 04/06/20 11:07 36.9 C 87 16 79/54 L 98 04/06/20 09:50 101 H 04/06/20 07:11 36.9 C 95 H 16 96/59 L 93 Laboratory Results Short CBC 04/06/20 Range/Units 08:36 WBC 4.76 L (4.8-10.8) K/uL Hgb 8.8 L (12.0-16.0) g/dL Hct 28.0 L (37-47) % Plt Count 282 (130-400) K/uL (1) Anemia Anemia type: unspecified type Qualified Code(s): D64.9 - Anemia, unspecified (2) COPD (chronic obstructive pulmonary disease) COPD type: unspecified COPD Qualified Code(s): J44.9 - Chronic obstructive pulmonary disease, unspecified
[2020-04-06] MEDS: TRAZODONE HCL 50 MG TAB PO SCH (20:54)
[2020-04-06] MEDS: AMITRIPTYLINE HCL 25 MG TAB PO SCH (20:55)
[2020-04-06] MEDS: ACETAMINOPHEN 325 MG TAB PO PRN (22:21)
[2020-04-06] MEDS: TEMAZEPAM 15 MG CAPSULE PO PRN (23:18)
[2020-04-07 07:41] LABS: Hematocrit (blood only) 25.6 % (37-47); Mean Corpuscular Hemoglobin 32.4 pg (25-34); Mean Corpuscular Hgb Conc 31.3 g/dL (32-36); Mean Corpuscular Volume 103.6 fL (80-100); Mean Platelet Volume 10.8 fL (7.4-10.4); Platelet Count 191 K/uL (130-400); RDW Coefficient of Variation 28.8 % (11.5-14.5); RDW Standard Deviation 104.2 fL (36.4-46.3); Red Blood Count 2.47 M/uL (4.2-5.4); White Blood Count 4.09 K/uL (4.8-10.8)
[2020-04-07] MEDS: PANTOprazole 40 MG TAB PO SCH ×2 (08:02→20:38)
[2020-04-07] MEDS: SUCRALFATE 1 GM TAB PO SCH ×5 (08:03→20:41)
[2020-04-07] MEDS: UMECLIDINIUM BROMIDE 62.5MCG/BLISTER 7 PUFFS/INHALER INH SCH (08:03)
[2020-04-07] MEDS: LACTOBACILLUS ACIDOPHILUS (FLORANEX) TAB PO SCH ×4 (08:03→20:37)
[2020-04-07] MEDS: FLUTICASONE/VILANTEROL 200/25MCG 14 PUFFS/INHALER INH SCH (08:03)
[2020-04-07] MEDS: PREGABALIN 75 MG CAP PO SCH ×2 (08:05→20:37)
[2020-04-07] MEDS: CEFEPIME 2,000 MG in SYRINGE 7.5 ML IV SCH (08:06)
[2020-04-07 08:35] LABS: BUN Creatinine Ratio 21.8 (10-20); Calcium 8.3 mg/dl (8.5-10.1); Creatinine Clr Calc Pharmacy 27.6 ml/min; Est GFR (African American) 47.1; Est GFR (Non-African American) 40.7; Potassium 3.8 mmol/L (3.5-5.1)
[2020-04-07] MEDS: D5W AND 1/2NSS 1,000 ML IV SCH ×2 (12:34→22:09)
--- NOTE | 2020-04-07 16:21 | Hospitalist Progress Note ---
Date of Service April 07, 2020 Assessment & Plan (1) Anemia: Anemia H/O Bleeding duodenal ulcer (12/2019), MDS, subcapsular hemorrhage of spleen (01/2020) Likely due to MDS/Splenomegaly Patient denies any bleeding issues S/P PRBCs Monitor H&H Discussed with Oncology on 04/03/20: OK to hold Hydroxyurea Monitor CBC No bleeding issues Plan to discuss with as to when Hydroxyurea need to be restarted prior to discharge Transfuse PRBCs as needed Leukopenia Fever Unclear source of infection CXR:No significant change from the preceding study. Increased density of the right hemithorax likely is secondary to an overlying breast prosthesis. Normal lactate, elevated procalcitonin levels Blood Culture: no growth to date Urine Culture: Negative MRSA Negative Hydroxyurea held CT ABD as below IV cefepime transitioned to PO Abx Monitor CBC Procalcitonin trended down Repeat CXR: No acute findings COVID Screen pending Gentle IV fluids Diarrhea Chronic abdominal Pain: Likely due to splenic infarcts/Splenomegaly (Chronic) H/O subcapsular hemorrhage of spleen --CT abdomen: Moderate splenomegaly. Multiple hypodense foci within the spleen which favor evolving infarcts although are suboptimally assessed on this unenhanced examination. Mild wall thickening of the sigmoid colon trace. This is likely due to underdistention although a nonspecific colitis or diverticulitis cannot be excluded. No free air or abscess. No bowel obstruction. --Cautious use of pain meds --Diarrhea improved --IV fluids (2) Elevated troponin: (3) Abnormal ECG: Chronic troponin elevation Could have Type II [place] from anemia Repeat EKG--less pronounced T wave changes Patient denies chest pain ECHO: No regional wall motion abnormality Prolonged QTC Avoid QTC prolonging agents Tramadol held Monitor QTC Acute Metabolic Encephalopathy DD: toxic encephalopathy Resumed Trazodone, Temazepam Mental status seemed to back to baseline monitor (4) DEISY (acute kidney injury): Cr:1.6>>1.27 Received IV fluids Monitor renal function Avoid nephrotoxic agents as able (5) Subcapsular hemorrhage of spleen: CT ABD as above (6) Pulmonary emboli: CTA chest 01/28/2020 showed subacute/chronic pulmonary embolism Not receiving anticoagulation due to underlying anemia, MDS, splenic hemorrhage (7) History of peptic ulcer disease: Continue PPI (8) Myelodysplastic syndrome: (9) Thrombocytosis: MDS Thrombocytosis Platelets within normal limits Hold hydroxyurea due to Leukopenia Follows with Dr. Mainor Chavez Monitor CBC (10) COPD (chronic obstructive pulmonary disease): Stable No signs of acute exacerbation Continue home inhalers Chronic Moderate protein-calorie malnutrition Poor Appetite Dietary Supplements (11) DVT prophylaxis: SCDs Re: Anemia Disposition PT/OT prior to discharge Admission and Anticipated Discharge Date Admission Date: April 01, 2020 Subjective Patient is seen and examined at bedside No new complaints Very poor appetite Mild Diarrhea Abdominal pain improved Denies any chest pain, shortness of breath, dizziness Offers no other complaints Hb drop partly dilutional from IV fluids Review of Systems Review of Systems: All systems reviewed & are unremarkable except as noted in HPI & below Physical Exam Physical Exam: Physical Exam: Vitals signs as noted above General Appearance:Thin, frail, chronic ill appearing, no apparent distress Head: normocephalic, Atraumatic Eyes: normal inspection, EOMI Neck: supple, Trachea midline Respiratory/Chest: Decreased breath sounds, CTA, No accessory muscle use Chest: R breast Implant Cardiovascular: S1, S2, No murmur Abdomen/GI:Soft, non tender, Bowel sounds present Extremities/Musculoskelatal:normal inspection, no edema Neurologic/Psych:AAOX3, grossly no focal neurological deficits Skin: normal color, warm Results & Data Results & Data ([facility]) Vital Signs (Past 12 Hours) Vital Signs Temp Pulse Pulse Resp BP BP BP 04/07/20 15:32 36.7 C 79 20 97/52 L 04/07/20 11:39 36.5 C 86 20 88/51 L 85/51 L 04/07/20 07:08 69 04/07/20 06:52 36.6 C 70 18 93/52 L Pulse Ox 04/07/20 15:32 96 04/07/20 11:39 98 04/07/20 07:08 04/07/20 06:52 95 (1) Anemia Anemia type: unspecified type Qualified Code(s): D64.9 - Anemia, unspecified (2) COPD (chronic obstructive pulmonary disease) COPD type: unspecified COPD Qualified Code(s): J44.9 - Chronic obstructive pulmonary disease, unspecified
[2020-04-07] MEDS: AMOXICILLIN/CLAVULANATE 500 MG TAB PO SCH (16:50)
[2020-04-07] MEDS: AMITRIPTYLINE HCL 25 MG TAB PO SCH (20:37)
[2020-04-07] MEDS: TRAZODONE HCL 50 MG TAB PO SCH (20:37)
[2020-04-07] MEDS: TEMAZEPAM 15 MG CAPSULE PO PRN ×2 (20:43→21:42)
[2020-04-08 07:23] LABS: Basophils # (auto) 0.02 K/uL (0-0.2); Basophils % (auto) 0.4 %; Eosinophils # (auto) 0.32 K/uL (0-0.5); Eosinophils % (auto) 6.9 %; Hematocrit (blood only) 24.9 % (37-47); Hemoglobin 7.7 g/dL (12.0-16.0); Immature Granulocytes # (auto) 0.01 K/uL (0.00-0.02); Immature Granulocytes % (auto) 0.2 %; Lymphocytes % (auto) 23.7 %; Mean Corpuscular Hemoglobin 32.5 pg (25-34); Mean Corpuscular Hgb Conc 30.9 g/dL (32-36); Mean Corpuscular Volume 105.1 fL (80-100); Mean Platelet Volume 12.6 fL (7.4-10.4); Monocytes % (auto) 12.9 %; Neutrophils # (auto) 2.59 K/uL (1.4-6.5); Neutrophils % (auto) 55.9 %; Platelet Count 210 K/uL (130-400); RDW Coefficient of Variation 29.2 % (11.5-14.5); RDW Standard Deviation 105.1 fL (36.4-46.3); Red Blood Count 2.37 M/uL (4.2-5.4); White Blood Count 4.64 K/uL (4.8-10.8)
[2020-04-08 07:40] LABS: BUN Creatinine Ratio 23.2 (10-20); Est GFR (African American) 61.4; Potassium 3.8 mmol/L (3.5-5.1)
[2020-04-08] MEDS: SUCRALFATE 1 GM TAB PO SCH ×3 (07:50→16:27)
[2020-04-08 07:53] LABS: Anisocytosis Present; Giant Platelets 1+; Poikilocytosis Present
[2020-04-08] MEDS: AMOXICILLIN/CLAVULANATE 500 MG TAB PO SCH ×2 (08:30→16:27)
[2020-04-08] MEDS: PREGABALIN 75 MG CAP PO SCH (08:30)
[2020-04-08] MEDS: UMECLIDINIUM BROMIDE 62.5MCG/BLISTER 7 PUFFS/INHALER INH SCH (08:31)
[2020-04-08] MEDS: FLUTICASONE/VILANTEROL 200/25MCG 14 PUFFS/INHALER INH SCH (08:31)
[2020-04-08] MEDS: LACTOBACILLUS ACIDOPHILUS (FLORANEX) TAB PO SCH ×3 (08:32→16:26)
[2020-04-08] MEDS: PANTOprazole 40 MG TAB PO SCH (08:33)
--- NOTE | 2020-04-08 11:23 | Hospitalist Progress Note ---
Date of Service April 08, 2020 Assessment & Plan (1) Anemia: Anemia H/O Bleeding duodenal ulcer (12/2019), MDS, subcapsular hemorrhage of spleen (01/2020) Likely due to MDS/Splenomegaly No signs of bleeding Hemoglobin of 6.2 on admission Status post 1 unit of blood for transfusion Hemoglobin is 7.7 as of 04/08/[address] formulation technician Dr. Chavez, advised to hold hydroxyurea on discharge. Her oncologist office will recheck CBC in 1 week and will take necessary action about transfusion Patient has been we have symptoms and will be discharged this afternoon Leukopenia Fever -mild temperature of 37.8 noted on 03 April Remains afebrile since then CXR:No significant change from the preceding study. Increased density of the right hemithorax likely is secondary to an overlying breast prosthesis. Normal lactate, elevated procalcitonin levels Blood Culture: no growth to date Urine Culture: Negative MRSA Negative Already on intravenous cefepime which has been changed to Augmentin Repeat CXR: No acute findings COVID Screen is negative We will discharge home this afternoon with antibiotic for a total of 10 days Diarrhea Chronic abdominal Pain: Likely due to splenic infarcts/Splenomegaly (Chronic) H/O subcapsular hemorrhage of spleen --CT abdomen: Moderate splenomegaly. Multiple hypodense foci within the spleen which favor evolving infarcts although are suboptimally assessed on this unenhanced examination. Mild wall thickening of the sigmoid colon trace. This is likely due to underdistention although a nonspecific colitis or diverticulitis cannot be excluded. No free air or abscess. No bowel obstruction. --Cautious use of pain meds --Diarrhea improved --No more diarrhea (2) Elevated troponin: (3) Abnormal ECG: Chronic troponin elevation Could have Type II MD from anemia Repeat EKG--less pronounced T wave changes Patient denies chest pain ECHO: No regional wall motion abnormality Prolonged QTC Avoid QTC prolonging agents Tramadol held Monitor QTC-check EKG Acute Metabolic Encephalopathy DD: toxic encephalopathy Resumed Trazodone, Temazepam Mental status seemed to back to baseline monitor (4) DEISY (acute kidney injury): Cr:1.6>>1.27 Received IV fluids Avoid nephrotoxic agents as able Creatinine is normalized (5) Subcapsular hemorrhage of spleen: Did not show any subcapsular hemorrhage CT ABD :1. Moderate splenomegaly. Multiple hypodense foci within the spleen which favor evolving infarcts although are suboptimally assessed on this unenhanced examination. (6) Pulmonary emboli: CTA chest 01/28/2020 showed subacute/chronic pulmonary embolism Not receiving anticoagulation due to underlying anemia, MDS, splenic hemorrhage And patient remains asymptomatic (7) History of peptic ulcer disease: Continue PPI (8) Myelodysplastic syndrome: (9) Thrombocytosis: MDS Thrombocytosis Platelets within normal limits Hold hydroxyurea due to Leukopenia Follows with Dr. Mainor Chavez (10) COPD (chronic obstructive pulmonary disease): Stable No signs of acute exacerbation Continue home inhalers Chronic Moderate protein-calorie malnutrition Poor Appetite Dietary Supplements (11) DVT prophylaxis: SCDs Re: Anemia Disposition PT/OT prior to discharge We will discharge home this afternoon Admission and Anticipated Discharge Date Admission Date: April 01, 2020 Subjective The patient was seen and examined in medical telemetry unit She has been feeling a lot better today and wants to go home Denies any symptoms of shortness of breath, cough, any fever and/or chills, any abdominal pain, nausea and or vomiting She has been ambulating well without any symptoms Review of Systems Review of Systems: All systems reviewed and are unremarkable except as noted below Constitutional: no fever, no body aches, no fatigue, no malaise and no weakness Respiratory: no cough and no dyspnea Neurologic: no generalized weakness Physical Exam Physical Exam: Lying in bed comfortably Constitutional: well developed; no acute distress and not ill appearing Eyes: PERRL, conjunctivae normal, anicteric sclerae ENMT: external ear and nose normal, oropharynx normal Neck: trachea midline, no thyromegaly Respiratory: normal respiratory effort; no respiratory distress Auscultation: lungs clear to auscultation bilaterally Cardiovascular: Rate/Rhythm: regular rate and regular rhythm Heart Sounds: no murmur Gastrointestinal (Abdomen): Inspection/Auscultation: abdomen normal to inspection and normal bowel sounds; abdomen not distended Percussion/Palpation: abdomen soft; abdomen nontender Musculoskeletal: No acute arthritis involving any joints Neurologic: moves all extremities; no focal motor deficits Alert, awake and oriented x3 Lymphatic: no cervical or axillary lymphadenopathy Results & Data Results & Data ([facility] Vital Signs (Past 12 Hours) Vital Signs Temp Pulse Pulse Resp BP BP BP 04/08/20 07:15 36.7 C 82 18 126/69 04/08/20 04:00 36.7 C 72 20 92/52 L 08/04/20 23:59 85 04/07/20 23:52 36.8 C 85 18 105/64 Pulse Ox 04/08/20 07:15 96 04/08/20 04:00 96 04/07/20 23:59 04/07/20 23:52 93 Laboratory Results Short CBC 04/08/20 Range/Units 06:59 WBC 4.64 L (4.8-10.8) K/uL Hgb 7.7 L (12.0-16.0) g/dL Hct 24.9 L (37-47) % Plt Count 210 (130-400) K/uL BMP 04/08/20 06:59 Sodium 144 Potassium 3.8 Chloride 119 H Carbon Dioxide 18 L BUN 24 H Creatinine 1.02 Glucose 88 Calcium 8.0 L Medications Administered Current Inpatient Medications Acetaminophen (Tylenol) 650 mg PO Q4H PRN PRN Reason: pain/fever Stop: 05/01/20 20:57 Last Admin: 04/06/20 22:21 Dose: 650 mg Documented by: Amitriptyline HCl (Elavil) 75 mg PO [facility] Stop: 05/01/20 20:59 Last Admin: 04/07/20 20:37 Dose: 75 mg Documented by: Amoxicillin/Clavulanate Potassium (Augmentin 500mg) 1 tab PO BIDM [facility]; Protocol Stop: 04/08/20 17:01 Last Admin: 04/08/20 08:30 Dose: 1 tab Documented by: Fluticasone/Vilanterol (Breo Ellipta 200/25 Mcg Inh) 1 puffs INH DAILY [facility] Stop: 05/02/20 08:59 Last Admin: 04/08/20 08:31 Dose: 1 puffs Documented by: Hydroxyurea (Hydrea) 500 mg PO [facility] Stop: 05/01/20 20:59 Last Admin: 04/01/20 21:35 Dose: 500 mg Documented by: Promethazine HCl 6.25 mg/ (Sodium Chloride) 50.25 mls @ 201 mls/hr IV Q6H PRN PRN Reason: Nausea And Vomiting Stop: 05/03/20 08:45 Last Infusion: 04/04/20 23:24 Dose: Infused Documented by: Ipratropium [place] (Atrovent 0.02% 0.5mg/2.5ml) 0.5 mg INH Q4H PRN PRN Reason: sob/wheezing Stop: 05/02/20 04:29 Lactobacillus Acidophilus (Floranex) 4 tab PO QIDM [facility] Stop: 05/04/20 20:59 Last Admin: 04/08/20 08:32 Dose: Not Given Documented by: Levalbuterol HCl (Xopenex 1.25mg/0.5ml Neb) 1.25 mg INH Q4H PRN PRN Reason: sob/wheezing Stop: 05/02/20 04:29 Pantoprazole Sodium (Protonix) 40 mg PO BID [facility] Stop: 05/01/20 20:59 Last Admin: 04/08/20 08:33 Dose: 40 mg Documented by: Pregabalin (Lyrica) 75 mg PO BID [facility] Stop: 05/01/20 20:59 Last Admin: 04/08/20 08:30 Dose: 75 mg Documented by: Sucralfate (Carafate Tab) 1 gm PO ACHS [facility] Stop: 05/01/20 20:59 Last Admin: 04/08/20 07:50 Dose: Not Given Documented by: Temazepam (Restoril) 30 mg PO HS PRN PRN Reason: Sleep Stop: 05/01/20 20:57 Last Admin: 04/07/20 21:42 Dose: 30 mg Documented by: Tramadol HCl (Ultram) 50 mg PO Q6H PRN PRN Reason: Pain Stop: 05/04/20 12:36 Trazodone HCl (Desyrel) 50 mg PO HS [facility] Stop: 05/05/20 20:59 Last Admin: 04/07/20 20:37 Dose: 50 mg Documented by: Umeclidinium [place] (Incruse Ellipta) 1 puffs INH QAM [facility] Stop: 05/02/20 08:59 Last Admin: 04/08/20 08:31 Dose: 1 puffs Documented by: (1) Anemia Anemia type: unspecified type Qualified Code(s): D64.9 - Anemia, unspecified (2) COPD (chronic obstructive pulmonary disease) COPD type: unspecified COPD Qualified Code(s): J44.9 - Chronic obstructive pulmonary disease, unspecified
[2020-04-08] MEDS ORDERED: SODIUM CHLORIDE 0.9% 250 ML IV PRN (14:28)
[2020-04-08] MEDS: ACETAMINOPHEN 325 MG TAB PO PRN (16:26)
--- NOTE | 2020-04-09 07:58 | Discharge Summary ---
Date of Service April 09, 2020 Admission HPI Per Admitting Provider 79-year-old female with PMH COPD, myelodysplastic syndrome, thrombocytosis, PUD, pulmonary embolism, and other problems listed below who presents to the ED by referral of outpatient oncologist for evaluation of anemia. Patient was recently admitted to [facility] 01/22 through 02/06 for acute on chronic hypoxic respiratory failure secondary to pneumonia and mucous plugging, pulmonary embolism, splenic infarct/hemorrhage. Anticoagulation for pulmonary embolism was not started due to underlying chronic anemia, PUD, splenic hemorrhage. Patient reports she has been feeling quite poorly since returning home from the hospital. She reports progressive generalized weakness and worsening exertional shortness of breath. She had routine labs performed today showing significant anemia. Given her symptoms, patient was referred to the ED for further evaluation. Patient also reports ongoing issues with left upper quadrant abdominal pain. Of note, patient had a abdominal ultrasound today that showed mild splenomegaly and loculated lower pole of the spleen with small areas of decreased echogenicity suggesting areas of splenic infarction; no evidence of hematoma or perisplenic fluid. Patient denies chest pain. No lightheadedness, dizziness, diaphoresis, syncopal events. No nausea, vomiting, diarrhea. She denies bright red bleeding per rectum or dark tarry stools. No fevers or chills. Patient denies urinary symptoms. In the ED, patient is found to have hemoglobin 6.2, mildly elevated troponin 0.101. EKG shows new T wave inversions in the inferior and lateral leads. She is hemodynamically stable. She was typed and crossed for blood transfusion. Admission Exam Per Admitting Provider Constitutional: + thin Vitals as above Eyes: PERRL, conjunctivae normal, anicteric sclerae ENMT: Ears: no external ear abnormality Nose: no external nose abnormality Mouth: + edentulous Respiratory: normal respiratory effort; no respiratory distress Auscultation: + diminished lung sounds Cardiovascular: Rate/Rhythm: regular rate and regular rhythm Vessels: normal peripheral pulses Extremities: no edema Gastrointestinal (Abdomen): Inspection/Auscultation: normal bowel sounds Percussion/Palpation: + abdomen tender (LUQ) and abdomen soft Musculoskeletal: no cyanosis or clubbing, extremities motor strength 5/5 Skin: no rashes, warm and dry Neurologic: PERRL, EOMI, accommodation nl, no face palsy, no dysarthria Psychiatric: A+Ox3, euthymic affect Principal Diagnosis Anemia secondary to MDS, status post 2 unit of PRBC transfusion, acute metabolic encephalopathy-improved, DEISY-normalized, pulmonary emboli-no anticoagulation , multiple splenic lesions favor infarct. Discharge Exam Constitutional well developed; no acute distress and not ill appearing Eyes PERRL, conjunctivae normal, anicteric sclerae ENMT external ear and nose normal, oropharynx normal Neck trachea midline, no thyromegaly Respiratory normal respiratory effort; no respiratory distress Auscultation: lungs clear to auscultation bilaterally Cardiovascular Rate/Rhythm: regular rate and regular rhythm Heart Sounds: no murmur Gastrointestinal (Abdomen) Inspection/Auscultation: abdomen normal to inspection and normal bowel sounds; abdomen not distended Percussion/Palpation: abdomen soft; abdomen nontender Neurologic moves all extremities; no focal motor deficits Lymphatic no cervical or axillary lymphadenopathy Discharge Data Allergies Allergy/AdvReac Type Severity Reaction Status Date / Time latex Allergy Intermediate HIVES Verified 04/01/20 17:34 nickel Allergy Intermediate Hives/Itchi Verified 04/01/20 17:34 ness shellfish derived Allergy Verified 04/02/20 15:43 Iodinated Contrast Media AdvReac Mild Diarrhea Verified 04/01/20 17:34 [Iodinated Contrast- Oral and IV Dye] Lobster Allergy Severe HIVES Uncoded 04/01/20 17:34 Consultations 04/01/20 18:17 ED Decision to Admit Stat Ordered Studies 04/02/20 12:03 CT abd pelvis wo con Routine Hospital Course (1) Anemia: Anemia H/O Bleeding duodenal ulcer (12/2019), MDS, subcapsular hemorrhage of spleen (01/2020) Likely due to MDS/Splenomegaly No signs of bleeding Hemoglobin of 6.2 on admission Status post 1 unit of blood for transfusion Hemoglobin is 7.7 as of 04/08/2020 Discussed with steam fitter helper Dr. Chavez, advised to hold hydroxyurea on discharge. Her oncologist office will recheck CBC in 1 week and will take necessary action about transfusion Patient has been we have symptoms and will be discharged this afternoon Leukopenia Fever -mild temperature of 37.8 noted on 03 April Remains afebrile since then CXR:No significant change from the preceding study. Increased density of the right hemithorax likely is secondary to an overlying breast prosthesis. Normal lactate, elevated procalcitonin levels Blood Culture: no growth to date Urine Culture: Negative MRSA Negative Already on intravenous cefepime which has been changed to Augmentin Repeat CXR: No acute findings COVID Screen is negative We will discharge home this afternoon with antibiotic for a total of 10 days Diarrhea Chronic abdominal Pain: Likely due to splenic infarcts/Splenomegaly (Chronic) H/O subcapsular hemorrhage of spleen --CT abdomen: Moderate splenomegaly. Multiple hypodense foci within the spleen which favor evolving infarcts although are suboptimally assessed on this unenhanced examination. Mild wall thickening of the sigmoid colon trace. This is likely due to underdistention although a nonspecific colitis or diverticulitis cannot be excluded. No free air or abscess. No bowel obstruction. --Cautious use of pain meds --Diarrhea improved --No more diarrhea (2) Elevated troponin: (3) Abnormal ECG: Chronic troponin elevation Could have Type II ND from anemia Repeat EKG--less pronounced T wave changes Patient denies chest pain ECHO: No regional wall motion abnormality Prolonged QTC Avoid QTC prolonging agents Tramadol held Monitor QTC-check EKG Acute Metabolic Encephalopathy DD: toxic encephalopathy Resumed Trazodone, Temazepam Mental status seemed to back to baseline monitor (4) DEISY (acute kidney injury): Cr:1.6>>1.27 Received IV fluids Avoid nephrotoxic agents as able Creatinine is normalized (5) Subcapsular hemorrhage of spleen: Did not show any subcapsular hemorrhage CT ABD :1. Moderate splenomegaly. Multiple hypodense foci within the spleen which favor evolving infarcts although are suboptimally assessed on this unenhanced examination. (6) Pulmonary emboli: CTA chest 01/28/2020 showed subacute/chronic pulmonary embolism Not receiving anticoagulation due to underlying anemia, MDS, splenic hemorrhage And patient remains asymptomatic (7) History of peptic ulcer disease: Continue PPI (8) Myelodysplastic syndrome: (9) Thrombocytosis: MDS Thrombocytosis Platelets within normal limits Hold hydroxyurea due to Leukopenia Follows with Dr. Mainor Chavez (10) COPD (chronic obstructive pulmonary disease): Stable No signs of acute exacerbation Continue home inhalers Chronic Moderate protein-calorie malnutrition Poor Appetite Dietary Supplements (11) DVT prophylaxis: SCDs Re: Anemia Disposition PT/OT prior to discharge We will discharge home this afternoon Total Time Total Time Spent Total Time Spent (In Minutes): 35 minutes Total Time Includes: Examination of the Patient, Discharge Planning, Medication Reconciliation and Communication With Other Providers Discharge Plan Discharge Items Patient Disposition: Home - Self-Care Reason For Visit: ANEMIA Discharge Diagnosis: Anemia secondary to MDS, status post 2 unit of PRBC transfusion, acute metabolic encephalopathy-improved, DEISY-normalized, pulmonary emboli-no anticoagulation , multiple splenic lesions favor infarct. Condition on Discharge: Good Activity: Resume your previous activity Non-emergency contact: Primary Care Provider Call non-emergency contact if: you have any medication questions Follow-up/Referrals: Valerie Chavze MD [Primary Care Provider] - 04/14/20 2:00 pm (04/14/2020 2:00 PM Provider Valerie Chavez MD Department General [facility] ) Diet: Regular Addtl Attending Provider Instructions: Please take precaution to avoid falls Repeat blood test as advised by your oncologist Please do not restart your hydroxyurea until being advised by the oncologist Pending Studies at Discharge: No Stand-Alone Forms: [employer], Smoking Cessation Medications and DC Order Prescriptions: New amoxicillin-pot clavulanate 500-125 mg Tablet 1 tab PO BIDM 3 Days Qty: 6 RF: 0 Lactobacillus acidoph-L.bulgar [Floranex] 1 million cell Tablet 2 tab PO QIDM 10 Days Qty: 80 RF: 0 Continued ondansetron HCl 8 mg Tablet 8 mg PO Q12H PRN (Reason: Nausea) RF: 0 rizatriptan 10 mg Tablet 10 mg PO PRN (Reason: Headache) RF: 0 bismuth subsalicylate [Pepto-Bismol] 262 mg/15 mL Suspension 524 mg PO QID PRN (Reason: GI-UPSET) RF: 0 risedronate [Actonel] 35 mg tablet 35 mg PO WK RF: 0 sucralfate [Carafate] 1 gram tablet 1 gm PO ACHS RF: 0 tramadol 50 mg tablet 50 mg PO QID PRN (Reason: pain) RF: 0 temazepam [Restoril] 30 mg Capsule 30 mg PO HS PRN (Reason: Sleep) RF: 0 pantoprazole [Protonix] 40 mg Tablet,Delayed Release (Dr/Ec) 40 mg PO BID RF: 0 pregabalin [Lyrica] 75 mg Capsule 75 mg PO BID RF: 0 albuterol sulfate 2.5 mg /3 mL (0.083 %) solution for nebulization 2.5 mg inhalation Q4H PRN (Reason: Wheezing) RF: 0 amitriptyline 75 mg tablet 75 mg PO HS RF: 0 olopatadine 0.1 % drops 1 drp OPB BID PRN (Reason: Itching) RF: 0 fluticasone propion-salmeterol 500-50 mcg/dose blister with device 1 inh INHALATION BID RF: 0 albuterol sulfate [Ventolin HFA] 90 mcg/actuation HFA aerosol inhaler 2 puff INHALATION QID PRN (Reason: Shortness Of Breath Or Wheezing) RF: 0 Spiriva with HandiHaler 18 mcg capsule, w/inhalation device 1 cap INHALATION QAM RF: 0 loperamide 2 mg capsule 2 mg PO Q4H PRN (Reason: Diarrhea) RF: 0 trazodone 50 mg tablet 50 mg PO HS RF: 0 acetaminophen [Tylenol] 325 mg Tablet 325 mg PO QID PRN (Reason: Pain) RF: 0 nicotine [Nicoderm CQ] 21 mg/24 hr Patch 24 Hour 21 mg transdermal QAM Qty: 14 RF: 1 Discontinued hydroxyurea [Hydrea] 500 mg Capsule 500 mg PO HS RF: 0 Discharge Orders: Discharge Order (Routine); Ordered 04/08/20 Ordered By: Carlotta Grant Admission Data Admit Date/Time: 04/01/20 18:29 Attending Provider: Carlotta Grant Admit Provider: Nikolas Umana Primary Care Provider: Valerie Chavez Other Providers: Nikolas Umana ; [facility] ; Carl Jackson Other Interventions: Discharge Summary Assessment (RN) Last Done: 04/08/20 13:57 DC Date/Time DO NOT enter until pt leaves facility: 04/08/20 19:42
== END 2020-04-08 19:42 | disposition home health service (06) | DRG 840 ==
LOC: ED 15:56 → 2N 18:29 → SUATTDRO 18:29 → 2N 20:34 → 2W 04-05 16:16

== ENCOUNTER 2020-04-22 17:59 | Inpatient (IN) ==
[2020-04-22] MEDS ORDERED: SODIUM CHLORIDE 0.9% 1000ML 1,000 ML IV ONE (18:10)
--- NOTE | 2020-04-22 18:31 | Emergency Department Note ---
History of Present Illness General Chief complaint: Diarrhea Stated complaint: WEAKNESS, DIARRHEA Time Seen by Provider: 04/22/20 18:09 History of Present Illness Provider complaint: Diarrhea and weakness Onset (ago): day(s) 3 Location: abdomen Radiation: non-radiation Pain Consistency: + intermittent Maximum Pain Intensity: 0 Quality: + aching Associated symptoms: + weakness; no chest pain, no fever/chills, no nausea/vomiting and no shortness of breath 79-year-old female presents emergency department with her daughter for diarrhea and weakness. Patient reports she has had diarrhea for the last 3 days. She also reports she is feeling increasingly lethargic and having abdominal pain. Patient has a history of MDS, peptic ulcer disease that is required surgical repair, and aspiration pneumonia. Daughter at bedside states that the patient frequently presents this way when her hemoglobin level is low and required multiple transfusions in the past. Home Medications Home Medications Medication Instructions Recorded Confirmed Type pantoprazole [Protonix] 40 mg PO BID PRN 06/06/18 04/22/20 History pregabalin [Lyrica] 75 mg PO BID 06/06/18 04/22/20 History temazepam [Restoril] 30 mg PO HS PRN 06/06/18 04/22/20 History Spiriva with HandiHaler 1 cap INHALATION QAM 12/17/19 04/22/20 History albuterol sulfate 2.5 mg INHALATION Q4H PRN 12/17/19 04/22/20 History albuterol sulfate [Ventolin HFA] 2 puff INHALATION QID PRN 12/17/19 04/22/20 History amitriptyline 75 mg PO HS 12/17/19 04/22/20 History fluticasone propion-salmeterol 1 inh INHALATION BID 12/17/19 04/22/20 History loperamide 2 mg PO Q4H PRN 12/17/19 04/22/20 History olopatadine 1 drp OPB BID PRN 12/17/19 04/22/20 History trazodone 50 mg PO HS 12/17/19 04/22/20 History acetaminophen [Tylenol] 325 mg PO QID PRN 01/23/20 04/22/20 History nicotine [Nicoderm CQ] 21 mg TRANSDERMAL QAM #14 ea 02/07/20 04/22/20 Rx bismuth subsalicylate 524 mg PO QID PRN 04/01/20 04/22/20 History [Pepto-Bismol] ondansetron HCl 8 mg PO Q12H PRN 04/01/20 04/22/20 History risedronate [Actonel] 35 mg PO WK 04/01/20 04/22/20 History rizatriptan 10 mg PO .DAILY/UD PRN 04/01/20 04/22/20 History sucralfate [Carafate] 1 gm PO ACHS 04/01/20 04/22/20 History tramadol 50 mg PO QID PRN 04/01/20 04/22/20 History hydrocodone-acetaminophen 1 tab PO BID PRN 04/22/20 04/22/20 History Allergies Allergy/AdvReac Type Severity Reaction Status Date / Time latex Allergy Intermediate HIVES Verified 04/01/20 17:34 nickel Allergy Intermediate Hives/Itchi Verified 04/01/20 17:34 ness shellfish derived Allergy Verified 04/02/20 15:43 Iodinated Contrast Media AdvReac Mild Diarrhea Verified 04/01/20 17:34 [Iodinated Contrast- Oral and IV Dye] Lobster Allergy Severe HIVES Uncoded 04/01/20 17:34 Past Med/Surg History Medical History CKD (chronic kidney disease), stage III COPD (chronic obstructive pulmonary disease) History of breast cancer chemo History of MRSA infection "left hip wound" History of peptic ulcer disease IBS (irritable bowel syndrome) Diarrhea predominant ; follows with GI Leukocytosis MDS/MPN (myelodysplastic/myeloproliferative neoplasms) Myelodysplastic syndrome Pelvic fracture 12/2018 pelvic fracture and monitor Pulmonary emboli 12/2019 just monitored Pulmonary nodules CT 01/23/20: 5 mm RML 3 mm RML 3 mm DEVEN 4 mm RUL S/P ORIF (open reduction internal fixation) fracture fracture hip x 5 and then had ORIF Subcapsular hemorrhage of spleen Thrombocytosis Surgical History H/O mastectomy modified radical masectomy H/O: hysterectomy History of cholecystectomy Hx of esophagogastroduodenoscopy Status post mastectomy "modified right mastectomy 1990" Status post total hip replacement, left had after ORIF hip Family History Other Unknown family medical history Social History Smoking Status: Current every day smoker Tobacco Type: Cigarettes packs per day: 1; Second Hand Exposure: No; Hx Alcohol Use: No Hx Substance Use: No Preferred Language: Ukrainian Communication Ability: Effective Logging Specialist Required: No Beliefs That Will Affect Care: None marital status: / Current Living Situation: Family How many Children do You have: 2 Feels Safe at Home: Yes Review of Systems A total of 10 systems reviewed and were otherwise negative Physical Exam Vital Signs Vital Signs - 24 hr 04/22/20 18:02 04/22/20 20:00 04/22/20 20:15 Temperature 37.1 C Temperature Source Oral Pulse Rate 102 H Pulse Rate [Right Finger] 89 89 Respiratory Rate 20 18 18 Respiratory Effort / Characteristics Non-Labored Respiratory Depth Normal Normal Blood Pressure 92/58 L Blood Pressure [Right Arm] 97/67 L 98/57 L Blood Pressure Mean 69 Blood Pressure Mean [Right Arm] 77 70 Blood Pressure Position Blood Pressure Position [Right Arm] Lying Pulse Oximetry 99 89 L 89 L Oxygen Delivery Method Room Air Room Air Room Air Oxygen Flow Rate Sepsis New/Unexplained Change in Mental Status N/A Sepsis Action Taken by Nursing No Action Required 04/22/20 20:18 04/22/20 20:30 04/22/20 20:31 Temperature 37.3 C Temperature Source Oral Pulse Rate 92 H 89 Pulse Rate [Right Finger] Respiratory Rate 18 18 Respiratory Effort / Characteristics Respiratory Depth Blood Pressure 98/50 L 90/58 L Blood Pressure [Right Arm] Blood Pressure Mean 66 68 Blood Pressure Mean [Right Arm] Blood Pressure Position Blood Pressure Position [Right Arm] Pulse Oximetry 96 89 L 99 Oxygen Delivery Method Room Air Oxygen Flow Rate 2 2 Sepsis New/Unexplained Change in Mental Status Sepsis Action Taken by Nursing 04/22/20 20:34 04/22/20 20:35 04/22/20 20:42 Temperature 37.2 C 37.2 C Temperature Source Oral Oral Pulse Rate 89 90 Pulse Rate [Right Finger] Respiratory Rate 20 16 Respiratory Effort / Characteristics Respiratory Depth Blood Pressure 92/54 L 83/49 L Blood Pressure [Right Arm] Blood Pressure Mean 66 60 Blood Pressure Mean [Right Arm] Blood Pressure Position Lying Lying Blood Pressure Position [Right Arm] Pulse Oximetry 98 96 Oxygen Delivery Method Oxygen Flow Rate 2 2 Sepsis New/Unexplained Change in Mental Status Sepsis Action Taken by Nursing 04/22/20 20:57 Temperature 37.4 C Temperature Source Oral Pulse Rate 89 Pulse Rate [Right Finger] Respiratory Rate 18 Respiratory Effort / Characteristics Respiratory Depth Blood Pressure 91/49 L Blood Pressure [Right Arm] Blood Pressure Mean 63 Blood Pressure Mean [Right Arm] Blood Pressure Position Lying Blood Pressure Position [Right Arm] Pulse Oximetry 96 Oxygen Delivery Method Oxygen Flow Rate 2 Sepsis New/Unexplained Change in Mental Status Sepsis Action Taken by Nursing Physical Exam GENERAL: She is oriented to person, place, and time. She appears well-developed and well-nourished. She does not appear distressed. HENT: Exam performed. -Head: Normocephalic and atraumatic. -Right Ear: External ear normal. No mastoid tenderness. -Left Ear: External ear normal. No mastoid tenderness. -Mouth/Throat: The oropharynx is clear and moist. No trismus in the jaw. No dental abscesses or uvula swelling. No oropharyngeal exudate or tonsillar abscesses. EYES: Conjunctivae and EOM are normal. Pupils are equal, round, and reactive to light. Right eye exhibits no discharge. Left eye exhibits no discharge. No scleral icterus. NECK: Normal range of motion. Neck supple. No JVD present. No spinous process tenderness present. No carotid bruit present. No rigidity. No tracheal deviation and normal range of motion present. No Brudzinski's sign and no Kernig's sign noted. CV: Tachycardic rate, regular rhythm, normal heart sounds and intact distal pulses. There is no peripheral edema. Palpable radial pulses bue. PULM/CHEST: Effort normal and breath sounds normal. No respiratory distress. No stridor. She has no wheezes. She has no rales. -Chest Wall: She exhibits no tenderness. ABD: The abdomen is soft. Bowel sounds are normal. She has no distension. No mass is present. There is no tenderness. There is no rebound, no guarding, no Marcano's sign and no tenderness at McBurney's point. Rovsig negative MUSC/SKEL: Normal range of motion. There is no peripheral edema, tenderness or deformity. LYMPH: No cervical adenopathy. NEURO: She is alert and oriented to person, place, and time. She has normal strength. No cranial nerve deficit or sensory deficit. Coordination and gait normal. GCS eye subscore is 4. GCS verbal subscore is 5. GCS motor subscore is 6. Cerebellar tests wnl. SKIN: Skin is warm and dry. She is not diaphoretic. PSYCH: She has a normal mood and affect. Behavior is normal. Judgment and thought content normal. Course Course 1808: The patient was evaluated in room C7. A complete history and physical exam was performed. Patient was placed on manager monitoring and found to be hypotensive with normal heart rate. Sepsis protocols were initiated. Large- bore IV access was obtained and fluid bolus was initiated. Cardiac monitoring: An order was placed for continuous cardiac monitoring. The monitor shows a rate of 105 with sinus tachycardia rhythm 2006: Patient remains hypotensive and tachycardic in the emergency department. Map greater than 65. Patient's hemoglobin is 7.1. Platelet count is 1136. Patient does have a history of myelodysplastic syndrome. Rectal exam was performed with nursing hse advisor Luo at bedside. Patient does have melanotic stools that are Hemoccult positive. Patient will be started on Protonix bolus and Protonix drip. She will be transfused 2 units of packed red blood cells. Her creatinine is at baseline. Her troponin is elevated 0.066. This has been elevated in the past and is actually the lowest it is been in since December 2019. Thought the patient's troponin elevation could be to her chronic kidney disease or due to demand ischemia from her anemia. CT of the head is within normal limits. CT of the abdomen shows nonspecific colitis and possible splenic infarcts that were seen on previous CT of the abdomen done on April 02. [facility] hospitalist Dr. Ibanez was notified Critical Care Time Critical Care Time: Yes Total Critical Care Time: 77 I have personally spent greater than 77 minutes of critical care time in the direct management of this patient. This includes bedside care, interpretation of diagnostic studies, and testing, discussion with consultants, patient, and family members, and other required patient management activities. This 77 minutes is in excess of all separately billable procedures. Medical Decision Making Laboratory Data Result diagrams: 04/22/20 19:10 04/22/20 19:10 Lab Results 08/19/20 08/19/20 08/19/20 Range/Units 18:46 19:10 19:10 WBC 6.70 (4.8-10.8) K/uL RBC 2.18 L (4.2-5.4) M/uL Hgb 7.1 L (12.0-16.0) g/dL Hct 23.6 L (37-47) % MCV 108.3 H (80-100) fL MCH 32.6 (25-34) pg MCHC 30.1 L (32-36) g/dL RDW Std Deviation 106.9 H (36.4-46.3) fL RDW Coeff of Radha 28.2 H (11.5-14.5) % Plt Count 1136 H* (130-400) K/uL MPV 10.9 H (7.4-10.4) fL Immature Gran % (Auto) 1.8 % Neut % (Auto) 64.1 % Lymph % (Auto) 20.9 % Shannon % (Auto) 10.3 % Eos % (Auto) 1.9 % Baso % (Auto) 1.0 % Neut # (Auto) 4.29 (1.4-6.5) K/uL Lymph # (Auto) 1.40 (1.2-3.4) K/uL Shannon # (Auto) 0.69 H (0.11-0.59) K/uL Eos # (Auto) 0.13 (0-0.5) K/uL Baso # (Auto) 0.07 (0-0.2) K/uL Immature Gran # (Auto) 0.12 H (0.00-0.02) K/uL Absolute Nucleated RBC 0.06 H (0-0) K/uL Nucleated RBC % (auto) 0.8 % Giant Platelets 1+ Basophilic Stippling 1+ Macrocytosis Present PT 11.7 (9.0-12.0) Seconds INR 1.1 (0.9-1.1) APTT 30.5 (21.0-31.0) Seconds PTT Ratio 1.1 Sodium (136-145) mmol/L Potassium (3.5-5.1) mmol/L Chloride (98-107) mmol/L Carbon Dioxide (21-32) mmol/L Anion Gap (3-11) BUN (7-18) mg/dl Creatinine (0.6-1.2) mg/dl Est Cr Clr Drug Dosing Est GFR ( Amer) Est GFR (Non-Af Amer) BUN/Creatinine Ratio (10-20) Glucose (70-99) mg/dl Lactate (0.4-2.0) mmol/L Calcium (8.5-10.1) mg/dl Magnesium (1.8-2.4) mg/dl Total Bilirubin (0.2-1) mg/dl AST (15-37) U/L ALT (12-78) U/L Alkaline Phosphatase (45-117) U/L Troponin I (0-0.045) ng/ml Total Protein (6.4-8.2) gm/dl Albumin (3.4-5.0) gm/dl Globulin (2.5-4.0) gm/dl Albumin/Globulin Ratio (0.9-2) Procalcitonin (0-0.5) ng/ml Blood Type A Positive Antibody Screen NEGATIVE Crossmatch See Detail 04/22/20 04/22/20 04/22/20 Range/Units 19:10 19:10 19:10 WBC (4.8-10.8) K/uL RBC (4.2-5.4) M/uL Hgb (12.0-16.0) g/dL Hct (37-47) % MCV (80-100) fL MCH (25-34) pg MCHC (32-36) g/dL RDW Std Deviation (36.4-46.3) fL RDW Coeff of Radha (11.5-14.5) % Plt Count (130-400) K/uL MPV (7.4-10.4) fL Immature Gran % (Auto) % Neut % (Auto) % Lymph % (Auto) % Shannon % (Auto) % Eos % (Auto) % Baso % (Auto) % Neut # (Auto) (1.4-6.5) K/uL Lymph # (Auto) (1.2-3.4) K/uL Shannon # (Auto) (0.11-0.59) K/uL Eos # (Auto) (0-0.5) K/uL Baso # (Auto) (0-0.2) K/uL Immature Gran # (Auto) (0.00-0.02) K/uL Absolute Nucleated RBC (0-0) K/uL Nucleated RBC % (auto) % Giant Platelets Basophilic Stippling Macrocytosis PT (9.0-12.0) Seconds INR (0.9-1.1) APTT (21.0-31.0) Seconds PTT Ratio Sodium 143 (136-145) mmol/L Potassium 4.8 (3.5-5.1) mmol/L Chloride 122 H (98-107) mmol/L Carbon Dioxide 13 L (21-32) mmol/L Anion Gap 8.0 (3-11) BUN 36 H (7-18) mg/dl Creatinine 1.69 H (0.6-1.2) mg/dl Est Cr Clr Drug Dosing Not Reportable Est GFR ( Amer) 33.4 Est GFR (Non-Af Amer) 28.8 BUN/Creatinine Ratio 21.2 H (10-20) Glucose 79 (70-99) mg/dl Lactate 0.5 (0.4-2.0) mmol/L Calcium 7.6 L (8.5-10.1) mg/dl Magnesium 1.7 L (1.8-2.4) mg/dl Total Bilirubin 0.3 (0.2-1) mg/dl AST 13 L (15-37) U/L ALT 10 L (12-78) U/L Alkaline Phosphatase 91 (45-117) U/L Troponin I 0.066 H* (0-0.045) ng/ml Total Protein 5.6 L (6.4-8.2) gm/dl Albumin 2.7 L (3.4-5.0) gm/dl Globulin 2.9 (2.5-4.0) gm/dl Albumin/Globulin Ratio 0.9 (0.9-2) Procalcitonin 70.13 H (0-0.5) ng/ml Blood Type Antibody Screen Crossmatch Imaging Data Radiologist's Impression: ABDOMEN AND PELVIS CT WITHOUT CONTRAST CT DOSE: 240.15 mGy.cm HISTORY: Acute generalized abdominal pain with diarrhea abd pain diarrhea weakness ams TECHNIQUE: Multiaxial CT images of the abdomen and pelvis were performed without contrast. A dose lowering technique was utilized adhering to the principles of ALARA. COMPARISON STUDY: CT abdomen and pelvis 04/03/2020 FINDINGS: Emphysema. Mild linear subsegmental bibasilar atelectasis/scarring. No pneumatosis or pneumoperitoneum. The imaged inferior cardiac chambers are unremarkable. Moderate splenomegaly. Ill-defined multifocal hypodense foci withi n the spleen are redemonstrated along with perisplenic edema, most pronounced inferiorly. These findings appear similar to comparison. Pancreas and adrenal glands are unremarkable. Cholecystectomy. Unenhanced liver is unremarkable. Unremarkable appearance of the left kidney. 4.6 x 5.1 cm cyst of the inferior pole right kidney with areas of septal/peripheral calcification. Unremarkable urinary bladder. Uterus may be surgically absent. Streak artifact from left hip arthroplasty limits evaluation of the pelvis. Calcified plaque the abdominal aorta. No adenopathy. No bowel obstruction. There is moderate wall thickening of the sigmoid colon. Moderate circumferential wall thickening of the cecum and ascending colon is also present. There is a mild pericolonic stranding. The appendix is not def initively seen. Areas of retained enteric contrast. Mild generalized body wall edema. Unchanged sclerosis with subacute appearing fracture of the left ischium. Remote T11 compression deformity is unchanged. Periprosthetic lucency adjacent to the femoral stem of the left hip arthroplasty is an unchanged finding. IMPRESSION: 1. Multifocal wall thickening of the colon suggestive of a nonspecific colitis. 2. Moderate splenomegaly with multiple ill-defined hypodensities and perisplenic edema redemonstrated. Findings are again suboptimally evaluated without the use of IV contrast however would favor evolving splenic infarcts. 3. No bowel obstruction. 4. Additional findings as above. ACT 112: Negative or not required by law. The above report was generated using voice recognition software. It may contain grammatical, syntax or spelling errors. Electronically signed by: Jarvis Lewis M.D. 04/22/2020 7:43 PM Dictated: 04/22/201935 Transcribed: 04/22/201935 CT head/brain wo con CLINICAL HISTORY: 79 years-old Female with ams. Acutely altered mental status TECHNIQUE: Multiple axial CT images of the head were obtained without contrast. A dose lowering technique was utilized adhering to the principles of ALARA. CT DOSE: 537.48 mGy.cm COMPARISON: None. FINDINGS: Study is mildly motion degraded. No acute intracranial hemorrhage, midline shift, intracranial mass, hydrocephalus, territorial ischemia or abnormal extra- axial collection. Age-related involutional changes. Patchy white matter hypodensities suggest chronic microvascular ischemic disease. Senescent calci fications of the lentiform nuclei. Cerebral vascular calcifications. The calvarium is intact. Prior bilateral lens replacement. The paranasal sinuses, mastoid air cells, and middle ear cavities are clear. IMPRESSION: No acute intracranial abnormality. ACT 112: Negative or not required by law. The above report was generated using voice recognition software. It may contain grammatical, syntax or spelling errors. Electronically signed by: Jarvis Lewis M.D. 04/22/2020 7:34 PM Dictated: 04/22/201930 Transcribed: 04/22/201930 XR chest 1V portable HISTORY: 79 years-old Female SEPSIS acute sepsis COMPARISON: Chest radiograph 2019 TECHNIQUE: Portable AP view of the chest FINDINGS: Calcified left hilar lymph nodes. The patient is slightly rotated. Right mastectomy with breast reconstruction/implant redemonstrated. This results in asymmetric medial right lung base opacity. Chronic interstitial coarsening. No pneumothorax, large pleural effusion or overt pulmonary edema. Surgical clips project over the right axilla. Bones appear grossly intact. IMPRESSION: No acute process. ACT 112: Negative or not required by law. The above report was generated using voice recognition software. It may contain grammatical, syntax or spelling errors. Electronically signed by: Jarvis Lweis M.D. 04/22/2020 6:38 PM Dictated: 04/22/201835 Transcribed: 04/22/201835 ECG Data Indication: + weakness Rate (beats per minute): 88 Rhythm: + normal sinus ECG Intervals/blocks: + Normal QRS, + Normal [place] and + Normal QT-c ECG ST segments: + T-wave inversions (Leads III, aVF are new T wave inversions. T wave inversion in leads V3, V4 V5 V6 are old from previous EKG done on April 03, 2020.) Change: the following changes noted (Leads III, aVF are new T wave inversions. T wave inversion in leads V3, V4 V5 V6 are old from previous EKG done on March.) [facility] Narrative 1809: The patient was evaluated in room C7. A complete history and physical exam was performed. Patient was placed on manager monitoring and found to be hypotensive with normal heart rate. Sepsis protocols were initiated. Large- bore IV access was obtained and fluid bolus was initiated. Cardiac monitoring: An order was placed for continuous cardiac monitoring. The monitor shows a rate of 105 with sinus tachycardia rhythm 2007: Patient remains hypotensive and tachycardic in the emergency department. Map greater than 65. Patient's hemoglobin is 7.1. Platelet count is 1136. Patient does have a history of myelodysplastic syndrome. Rectal exam was performed with nursing hse advisor Lou at bedside. Patient does have melanotic stools that are Hemoccult positive. Patient will be started on Protonix bolus and Protonix drip. She will be transfused 2 units of packed red blood cells. Her creatinine is at baseline. Her troponin is elevated 0.066. This has been elevated in the past and is actually the lowest it is been in since December 2019. Thought the patient's troponin elevation could be to her chronic kidney disease or due to demand ischemia from her anemia. CT of the head is within normal limits. CT of the abdomen shows nonspecific colitis and possible splenic infarcts that were seen on previous CT of the abdomen done on April 02. [facility] hospitalist Dr. Ibanez was notified Impression & Plan GIB (gastrointestinal bleeding), Anemia, Thrombocytosis, Elevated troponin Discharge Plan Visit Data Chief Complaint: Diarrhea Stated Complaint: WEAKNESS, DIARRHEA ED Provider: Khadar Castro Discharge Problem: GIB (gastrointestinal bleeding), Anemia, Thrombocytosis, Elevated troponin Patient Disposition: Admitted As Inpatient Forms Stand Alone Forms: [facility] Prescriptions Prescriptions: No Action ondansetron HCl 8 mg Tablet 8 mg PO Q12H PRN (Reason: Nausea) RF: 0 rizatriptan 10 mg Tablet 10 mg PO .DAILY/UD PRN (Reason: Headache) RF: 0 bismuth subsalicylate [Pepto-Bismol] 262 mg/15 mL Suspension 524 mg PO QID PRN (Reason: GI-UPSET) RF: 0 risedronate [Actonel] 35 mg tablet 35 mg PO WK RF: 0 sucralfate [Carafate] 1 gram tablet 1 gm PO ACHS RF: 0 tramadol 50 mg tablet 50 mg PO QID PRN (Reason: pain) RF: 0 temazepam [Restoril] 30 mg Capsule 30 mg PO HS PRN (Reason: Sleep) RF: 0 pantoprazole [Protonix] 40 mg Tablet,Delayed Release (Dr/Ec) 40 mg PO BID PRN (Reason: Gastric Reflux) RF: 0 pregabalin [Lyrica] 75 mg Capsule 75 mg PO BID RF: 0 albuterol sulfate 2.5 mg /3 mL (0.083 %) solution for nebulization 2.5 mg inhalation Q4H PRN (Reason: Wheezing) RF: 0 amitriptyline 75 mg tablet 75 mg PO HS RF: 0 olopatadine 0.1 % drops 1 drp OPB BID PRN (Reason: Itching) RF: 0 fluticasone propion-salmeterol 500-50 mcg/dose blister with device 1 inh INHALATION BID RF: 0 albuterol sulfate [Ventolin HFA] 90 mcg/actuation HFA aerosol inhaler 2 puff INHALATION QID PRN (Reason: Shortness Of Breath Or Wheezing) RF: 0 Spiriva with HandiHaler 18 mcg capsule, w/inhalation device 1 cap INHALATION QAM RF: 0 loperamide 2 mg capsule 2 mg PO Q4H PRN (Reason: Diarrhea) RF: 0 trazodone 50 mg tablet 50 mg PO HS RF: 0 acetaminophen [Tylenol] 325 mg Tablet 325 mg PO QID PRN (Reason: Pain) RF: 0 nicotine [Nicoderm CQ] 21 mg/24 hr Patch 24 Hour 21 mg transdermal QAM Qty: 14 RF: 1 hydrocodone-acetaminophen 10-325 mg tablet 1 tab PO BID PRN (Reason: Pain) RF: 0 Referrals Referrals: Valerie Chavez MD [Primary Care Provider] - Discharge Problem: GIB (gastrointestinal bleeding) Qualifiers: GI bleed type/associated pathology: melena Qualified Code(s): K92.1 - Melena Anemia Qualifiers: Anemia type: unspecified type Qualified Code(s): D64.9 - Anemia, unspecified
--- NOTE | 2020-04-22 18:39 | XRay Report ---
XR chest 1V portable HISTORY: 79 years-old Female SEPSIS acute sepsis COMPARISON: Chest radiograph 8 2019 TECHNIQUE: Portable AP view of the chest FINDINGS: Calcified left hilar lymph nodes. The patient is slightly rotated. Right mastectomy with breast recon struction/implant redemonstrated. This results in asymmetric medial right lung base opacity. Chronic interstitial coarsening. No pneumothorax, large pleural effusion or overt pulmonary edema. Surgical c lips project over the right axilla. Bones appear grossly intact. IMPRESSION: No acute process. ACT 112: Negative or not required by law. The above report was generated using voice recognition software. It may contain grammatical, syntax o r spelling errors. Electronically signed by: Jarvis Lewis M.D. 04/22/2020 6:38 PM
[2020-04-22 19:31] LABS: INR 1.1 (0.9-1.1); Partial Thromboplastin Ratio 1.1; Partial Thromboplastin Time 30.5 Seconds (21.0-31.0); Prothrombin Time 11.7 Seconds (9.0-12.0)
--- NOTE | 2020-04-22 19:35 | CT Scan Report ---
CT head/brain wo con CLINICAL HISTORY: 79 years-old Female with ams. Acutely altered mental status TECHNIQUE: Multiple axial CT images of the head were obtained without contrast. A dose lowering tech nique was utilized adhering to the principles of ALARA. CT DOSE: 537.48 mGy.cm COMPARISON: None. FINDINGS: Study is mildly motion degraded. No acute intracranial hemorrhage, midline shift, intracranial mass, hydrocephalus, territorial ischemia or abnormal extra-axial collection. Age-related involutional gomez ges. Patchy white matter hypodensities suggest chronic microvascular ischemic disease. Senescent calc ifications of the lentiform nuclei. Cerebral vascular calcifications. The calvarium is intact. Prior bilateral lens replacement. The paranasal sinuses, mastoid air cells, and middle ear cavities are clear. IMPRESSION: No acute intracranial abnormality. ACT 112: Negative or not required by law. The above report was generated using voice recognition software. It may contain grammatical, syntax o r spelling errors. Electronically signed by: Jarvis Lewis M.D. 04/22/2020 7:34 PM
[2020-04-22 19:38] LABS: Alanine Aminotransferase 10 U/L (12-78); Albumin Level 2.7 gm/dl (3.4-5.0); Aspartate Aminotransferase 13 U/L (15-37); BUN Creatinine Ratio 21.2 (10-20); Blood Urea Nitrogen 36 mg/dl (7-18); Calcium 7.6 mg/dl (8.5-10.1); Carbon Dioxide 13 mmol/L (21-32); Chloride 122 mmol/L (98-107); Est GFR (African American) 33.4; Est GFR (Non-African American) 28.8; Glucose 79 mg/dl (70-99); Magnesium 1.7 mg/dl (1.8-2.4); Potassium 4.8 mmol/L (3.5-5.1); Sodium 143 mmol/L (136-145)
[2020-04-22 19:43] LABS: Hematocrit (blood only) 23.6 % (37-47); Hemoglobin 7.1 g/dL (12.0-16.0); Mean Corpuscular Hemoglobin 32.6 pg (25-34); Mean Corpuscular Hgb Conc 30.1 g/dL (32-36); Mean Corpuscular Volume 108.3 fL (80-100); Mean Platelet Volume 10.9 fL (7.4-10.4); Nucleated RBC # (auto) 0.06 K/uL (0-0); Nucleated RBC % (auto) 0.8 %; Platelet Count 1136 K/uL (130-400); RDW Coefficient of Variation 28.2 % (11.5-14.5); RDW Standard Deviation 106.9 fL (36.4-46.3); Red Blood Count 2.18 M/uL (4.2-5.4)
[2020-04-22 19:44] LABS: Basophilic Stippling 1+; Basophils # (auto) 0.07 K/uL (0-0.2); Eosinophils # (auto) 0.13 K/uL (0-0.5); Eosinophils % (auto) 1.9 %; Giant Platelets 1+; Immature Granulocytes # (auto) 0.12 K/uL (0.00-0.02); Immature Granulocytes % (auto) 1.8 %; Lymphocytes % (auto) 20.9 %; Macrocytosis Present; Monocytes # (auto) 0.69 K/uL (0.11-0.59); Monocytes % (auto) 10.3 %; Neutrophils # (auto) 4.29 K/uL (1.4-6.5); Neutrophils % (auto) 64.1 %
--- NOTE | 2020-04-22 19:44 | CT Scan Report ---
ABDOMEN AND PELVIS CT WITHOUT CONTRAST CT DOSE: 240.15 mGy.cm HISTORY: Acute generalized abdominal pain with diarrhea abd pain diarrhea weakness ams TECHNIQUE: Multiaxial CT images of the abdomen and pelvis were performed without contrast. A dose lo wering technique was utilized adhering to the principles of ALARA. COMPARISON STUDY: CT abdomen and pelvis 04/03/2020 FINDINGS: Emphysema. Mild linear subsegmental bibasilar atelectasis/scarring. No pneumatosis or pneumoperitoneu m. The imaged inferior cardiac chambers are unremarkable. Moderate splenomegaly. Ill-defined multifoc al hypodense foci within the spleen are redemonstrated along with perisplenic edema, most pronounced inferiorly. These findings appear similar to comparison. Pancreas and adrenal glands are unremarkable . Cholecystectomy. Unenhanced liver is unremarkable. Unremarkable appearance of the left kidney. 4.6 x 5.1 cm cyst of the inferior pole right kidney with areas of septal/peripheral calcification. Unremarkable urinary bladder. Uterus may be surgically abse nt. Streak artifact from left hip arthroplasty limits evaluation of the pelvis. Calcified plaque the abdominal aorta. No adenopathy. No bowel obstruction. There is moderate wall thickening of the sigmoid colon. Moderate circumferentia l wall thickening of the cecum and ascending colon is also present. There is a mild pericolonic stran ding. The appendix is not definitively seen. Areas of retained enteric contrast. Mild generalized bod y wall edema. Unchanged sclerosis with subacute appearing fracture of the left ischium. Remote T11 co mpression deformity is unchanged. Periprosthetic lucency adjacent to the femoral stem of the left hip arthroplasty is an unchanged finding. IMPRESSION: 1. Multifocal wall thickening of the colon suggestive of a nonspecific colitis. 2. Moderate splenomegaly with multiple ill-defined hypodensities and perisplenic edema redemonstrated . Findings are again suboptimally evaluated without the use of IV contrast however would favor evolvi ng splenic infarcts. 3. No bowel obstruction. 4. Additional findings as above. ACT 112: Negative or not required by law. The above report was generated using voice recognition software. It may contain grammatical, syntax o r spelling errors. Electronically signed by: Jarvis Lewis M.D. 04/22/2020 7:43 PM
[2020-04-22 19:47] LABS: Albumin Globulin Ratio 0.9 (0.9-2); Alkaline Phosphatase 91 U/L (45-117); Bilirubin,Total 0.3 mg/dl (0.2-1); Globulin 2.9 gm/dl (2.5-4.0); Total Protein 5.6 gm/dl (6.4-8.2); Troponin I 0.066 ng/ml (0-0.045)
[2020-04-22] MEDS ORDERED: SODIUM CHLORIDE 0.9% 250 ML IV PRN (19:47)
[2020-04-22] MEDS ORDERED: PANTOprazole 80 MG in DEXTROSE 5% 100 ML IV ONE (20:03)
[2020-04-23] MEDS ORDERED: ALBUTEROL 0.083% NEBU SOLN 3 ML VIAL INH PRN (00:12)
[2020-04-23] MEDS ORDERED: ALBUTEROL HFA 8 GM INHALER INH PRN (00:12)
[2020-04-23] MEDS ORDERED: ONDANSETRON INJ 2 MG/ML 2 ML VIAL IV PRN (00:12)
[2020-04-23] MEDS ORDERED: NITROGLYCERIN SL 0.4 MG/TAB TAB SL PRN (00:12)
[2020-04-23] MEDS ORDERED: RIZATRIPTAN BENZOATE 10 MG TAB PO PRN (00:12)
[2020-04-23] MEDS ORDERED: MAGNESIUM SULFATE / D5W 1 GM/100 ML BAG IV ONE (00:12)
--- NOTE | 2020-04-23 01:19 | History and Physical Report ---
DATE OF ADMISSION: 04/22/2020 CHIEF COMPLAINT: Generalized weakness and GI bleed. HISTORY OF PRESENT ILLNESS: This is a 79-year-old female with past medical history significant for myeloproliferative disease, anemia of chronic kidney disease stage III, essential thrombocythemia, COPD, peripheral vascular disease, chronic diarrhea, irritable bowel syndrome, GERD, depression, history of peptic ulcer disease, history of breast cancer, history of tobacco use disorder. The patient comes with weakness and found to be anemic. The patient says she lives with her daughter. She walks without any support. The patient recently had issues with GI bleeds. She also has a history of pulmonary embolism diagnosed recently and not on anticoagulation secondary to GI bleeds. She has history of acute on chronic respiratory failure secondary to pneumonia and mucus plugging and splenic infarct and hemorrhage, history of bleeding duodenal ulcer in December 2019. Comes because of generalized weakness and hemoglobin was found to be 7.1 and Hemoccult was positive. Possible melena. She was started on 2 units of PRBC in the ER. Currently, resting comfortably and hemodynamically stable. She also complains of lower abdominal pain since last few days. Denies any nausea, vomiting. Denies any bright red blood per rectum. Normal bladder movements. Appetite is okay. Denies any chest pain, no shortness of breath, no cough. The patient is afebrile, has mild headache, no blurred vision, no earache, no runny nose, no sore throat, no difficulty swallowing. ALLERGIES: NICKEL, SHELLFISH, IODINATED DIAGNOSTIC AGENTS, LATEX. PAST MEDICAL HISTORY: As mentioned above. PAST SURGICAL HISTORY: Colonoscopy, multiple EGDs, laparoscopic cholecystectomy, modified radical mastectomy, right side, total abdominal hysterectomy with removal of tubes. MEDICATIONS: The patient is on Restoril 30 mg p.o. at bedtime p.r.n., hydrocodone/acetaminophen 10-325 mg p.o. b.i.d. p.r.n., Actonel 35 mg p.o. once a week, trazodone 50 mg p.o. at bedtime, sucralfate 1 gram p.o. q.i.d., Zofran 8 mg p.o. b.i.d. p.r.n., Patanol 0.1% ophthalmic solution 1 drop in each eye b.i.d. as needed, albuterol nebulization every 4 hours p.r.n., Lyrica 75 mg p.o. b.i.d., Advair Diskus 500/50 mcg 1 puff b.i.d., Spiriva handihaler 18 mcg inhalation daily, Hydrea 500 mg p.o. daily, vitamin D 50,000 units 1 capsule once a week, Imodium 2 mg p.o. p.r.n., Protonix 40 mg p.o. b.i.d., Ventolin HFA 2 puffs q.i.d., Pepto-Bismol 30 mL every 4 hours p.r.n., rizatriptan 10 mg p.o. p.r.n. for migraines, Tylenol 500 mg p.o. q. 4 hours p.r.n. FAMILY HISTORY: Significant for no family history in file. SOCIAL HISTORY: , lives with daughters. Former smoker, smoked 1 pack a day for 50 years, quit in May 2017. No alcohol use, no drug use. REVIEW OF SYMPTOMS: As per HPI. Rest of review of symptoms negative. PHYSICAL EXAMINATION: GENERAL: The patient is of moderate build, not in acute distress. VITAL SIGNS: Temperature 37.4, pulse 93, respiratory rate 16, blood pressure 102/46, oxygen 96% on nasal cannula. HEENT: No pallor, no icterus. Pupils equal, round, reactive to light. NECK: No JVD, no neck masses, no carotid bruit. CARDIOVASCULAR: S1, S2 heard, regular rate and rhythm, no murmur, no gallop. RESPIRATORY SYSTEM: Normal AP diameter. No accessory muscle use. No wheezing, no crackles. ABDOMEN: Soft, bowel sounds present. Mild abdominal diffuse discomfort. No guarding, no rigidity. CENTRAL NERVOUS SYSTEM: Cranial nerves II-XII grossly intact. Nonfocal. EXTREMITIES: No edema, no erythema. LABORATORY DATA: WBC 6.7, hemoglobin 7.1, hematocrit 23.6, platelets 1136. PT 11.7, INR 1.1, APTT 30.5. Sodium 143, potassium 4.8, chloride 122, bicarbonate 13, BUN 36, creatinine 1.6, serum glucose 79. Lactate 0.5, calcium 7.6, magnesium 1.7, AST 13, ALT 10, alkaline phosphatase 91. Troponin I 0.066. Procalcitonin 70.13. IMAGING: CT of the head, no acute intracranial abnormalities seen. CTA of the abdomen and pelvis, multifocal wall thickening of the colon suggestive of nonspecific colitis, moderate splenomegaly with multiple ill-defined hypodensities and perisplenic edema redemonstrated, findings are again suboptimally evaluated without any use of IV contrast; however, could favor evolving splenic infarcts. No bowel obstructions. Chest x-ray: No acute process. EKG: Normal sinus rhythm with incomplete right bundle branch block, rate of 88. ASSESSMENT AND PLAN: This is a 79-year-old female with history of myeloproliferative disorder, history of peptic ulcer disease, presents with weakness and found to have anemia and gastrointestinal bleed. 1. 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 Hemoccult was positive. Hemoglobin 7.1. Getting 2 units of PRBC in the ER. We will follow H and H in a.m. Continue Protonix drip and consult GI in a.m. Close follow up in the tele floor. 2. Diarrhea, colitis on the CAT scan: We will follow the C. diff, currently n.p.o. on IV fluids. GI consulted. 3. Elevated troponin, chronic troponin elevation: Last admission echo was okay. 4. Acute kidney injury on chronic kidney disease stage III: Baseline creatinine around 1.2, present creatinine of 1.6. Getting fluids. We will follow the labs in a.m. 5. History of subcapsular hemorrhage of spleen, splenic infarct: That was present on last admission also. 6. History of pulmonary emboli, on the CAT scan, on 01/28/2020. Not on any anticoagulation secondary to underlying anemia and gastrointestinal bleed. 7. History of peptic ulcer. Currently getting PPI. Will follow GI evaluation. 8. History of myelodysplastic syndrome, thrombocytosis: Currently platelets are elevated. Hydroxyurea was stopped last admission , but restarted as outpatient, we will continue hydroxyurea, we will consider consulting Heme/Onc. 9. History of chronic obstructive pulmonary disease. Continue home inhalers, currently stable. 10. Chronic moderate protein malnutrition, poor appetite: Letterer consult when stable.. 11. Hypomagnesia: We will replace. 12. Non-anion gap metabolic acidosis got worse from the previous admission: We will follow the repeat labs,and consider consult nephrology in a.m. 13. Deep venous thrombosis prophylaxis, sequential compression devices for now. 14. Disposition: Closely monitor in tele floor. Level 1 full code. MTDD
[2020-04-23 01:29] LABS: Appearance Urine Cloudy (Clear); Bacteria Urine Automated 3+ (Negative); Bilirubin Urine Negative (Negative); Blood Urine Negative (Negative); Color Urine Yellow; Epithelial Cell Urine Auto 0-5 /lpf (0-5); Glucose Urine UA Negative (Negative); Ketones Urine Trace (Negative); Leukocyte Esterase Urine Trace (Negative); Nitrite Urine Negative (Negative); Protein Urine 1+ (Negative); RBC Urine Automated 0-4 /hpf (0-4); Specific Gravity Urine 1.016 (1.000-1.030); Urobilinogen Urine Negative (Negative)
[2020-04-23] MEDS: SODIUM CHLORIDE 0.9% 1000ML 1,000 ML IV SCH ×2 (01:52→15:26)
[2020-04-23] MEDS: PANTOprazole 40 MG in DEXTROSE 5% 100 ML IV SCH ×4 (03:11→18:46)
[2020-04-23 05:12] LABS: Basophils # (auto) 0.04 K/uL (0-0.2); Basophils % (auto) 0.5 %; Eosinophils # (auto) 0.16 K/uL (0-0.5); Eosinophils % (auto) 1.8 %; Hematocrit (blood only) 31.7 % (37-47); Hemoglobin 9.9 g/dL (12.0-16.0); Immature Granulocytes # (auto) 0.13 K/uL (0.00-0.02); Immature Granulocytes % (auto) 1.5 %; Lymphocytes # (auto) 1.38 K/uL (1.2-3.4); Lymphocytes % (auto) 15.5 %; Mean Corpuscular Hemoglobin 32.1 pg (25-34); Mean Corpuscular Hgb Conc 31.2 g/dL (32-36); Mean Corpuscular Volume 102.9 fL (80-100); Mean Platelet Volume 11.3 fL (7.4-10.4); Monocytes # (auto) 0.73 K/uL (0.11-0.59); Monocytes % (auto) 8.2 %; Neutrophils # (auto) 6.44 K/uL (1.4-6.5); Neutrophils % (auto) 72.5 %; Nucleated RBC # (auto) 0.07 K/uL (0-0); Nucleated RBC % (auto) 0.7 %; Platelet Count 983 K/uL (130-400); RDW Standard Deviation 85.8 fL (36.4-46.3); Red Blood Count 3.08 M/uL (4.2-5.4); White Blood Count 8.88 K/uL (4.8-10.8)
[2020-04-23 05:40] LABS: BUN Creatinine Ratio 24.4 (10-20); Calcium 8.3 mg/dl (8.5-10.1); Est GFR (African American) 41.9; Est GFR (Non-African American) 36.2; Magnesium 1.9 mg/dl (1.8-2.4); Potassium 5.1 mmol/L (3.5-5.1)
[2020-04-23 05:59] LABS: Anisocytosis Present; Echinocytes 1+; Giant Platelets 1+; Macrocytosis Present; Polychromasia 1+
[2020-04-23 08:14] LABS: Stomatocytes 1+
[2020-04-23] MEDS: UMECLIDINIUM BROMIDE 62.5MCG/BLISTER 7 PUFFS/INHALER INH SCH (08:15)
[2020-04-23] MEDS: FLUTICASONE/VILANTEROL 100/25MCG 14 PUFFS/INHALER INH SCH (08:15)
[2020-04-23] MEDS: OLOPATADINE~ORDER AWAITING ACTION SCH ×2 (08:16→15:25)
[2020-04-23] MEDS: cefTRIAXone SODIUM 1,000 MG in DEXTROSE 5% 50 ML IV SCH (08:16)
--- NOTE | 2020-04-23 08:54 | Gastrointestinal Consultation ---
Date of Consultation April 23, 2020 Assessment & Plan (1) Anemia: 79 year old female with history of COPD, heart disease, CKD, IBS-D, GERD, anemia of CKD w/ baseline trending between 7-9, thromobycothemia, MDS, breast CA, PUD and others below who is admitted through the ED w/ weakness - GI asked to evaluate given heme positive stools. She had PUD in December w/ negative recall EGD less than 1 month ago, today reports loose, brown stools and lower abd cramping. CT w/ colitis, c.diff negative IV PPI bolus and drip x 48 hours Then PO PPI 40 mg daily Check stool culture Daily probiotic Unremarkable prior work up, diarrhea is intermittent, consider side effect including Hydroxyurea Continue PRN Imodium if stools are negative Low FODMAP diet. Consider trial of Bentyl 10 mg TID PRN while admitted Given stable, VS, HGB post transfusion and brown stools no current indication no plan for repeat EGD No GI contraindication to a trial of clear liquid diet Recall if needed. Thank you for allowing us to participate in the care of this patient. Please call with any acute changes, questions or concerns. Please see addendum below with additional recommendation from my supervising physician. Supervising Physician Co-Signing Physician Notes I have seen and examined the patient with BRIANNE Moody whose note reflects our findings and plan. History of Present Illness Reason for Consultation: anemia, heme + stool Requesting Physician: Juanita Attending Physician: Carlotta Grant MD History of Present Illness 79 year old female with history of COPD, heart disease, CKD, IBS-D, GERD, anemia of CKD w/ baseline trending between 7-9, thromobycothemia, MDS, breast CA, PUD and others below who is admitted through the ED w/ weakness - GI asked to evaluate given heme positive stools. Pt was seen and evaluated, chart reviewed. Suggests two days ago she had some loose, dark stools. No BRBPR. Notes the dark stools resolved. Now has had some loose stools with lower abdominal cramping. No BRBPR. No nausea/vomiting. No prior coffee ground emesis or hematemesis. No fever, chills, CP, SOB. No weight loss. In the ED, hgb 7.1 w/o BUN elevation. S/P RBC x 2 units w/ HGB this AM 9.9. CTAP w/ colitis, c.diff negative. culture not obtained. She was admitted to the ICU and remained hemodynamically stable overnight. Documented today are brown stools. EGD 03/24/20: small HH, otherwise normal EGD 12/23/19: non severe eosphagitis, normal stomach, nonbleeding duodenal ulcer Colonoscopy 02/27/18: 5mm polyp, 20 mm polyp, divertula, otherwise normal, due for recall 2020 Allergies Allergy/AdvReac Type Severity Reaction Status Date / Time latex Allergy Intermediate HIVES Verified 04/01/20 17:34 nickel Allergy Intermediate Hives/Itchi Verified 04/01/20 17:34 ness shellfish derived Allergy Verified 04/02/20 15:43 Iodinated Contrast Media AdvReac Mild Diarrhea Verified 04/01/20 17:34 [Iodinated Contrast- Oral and IV Dye] Lobster Allergy Severe HIVES Uncoded 04/01/20 17:34 Home Medications Home Medications Medication Instructions Recorded Confirmed Type pantoprazole [Protonix] 40 mg PO BID PRN 06/06/18 04/22/20 History pregabalin [Lyrica] 75 mg PO BID 06/06/18 04/22/20 History temazepam [Restoril] 30 mg PO HS PRN 06/06/18 04/22/20 History Spiriva with HandiHaler 1 cap INHALATION QAM 12/17/19 04/22/20 History albuterol sulfate 2.5 mg INHALATION Q4H PRN 12/17/19 04/22/20 History albuterol sulfate [Ventolin HFA] 2 puff INHALATION QID PRN 12/17/19 04/22/20 History amitriptyline 75 mg PO HS 12/17/19 04/22/20 History fluticasone propion-salmeterol 1 inh INHALATION BID 12/17/19 04/22/20 History loperamide 2 mg PO Q4H PRN 12/17/19 04/22/20 History olopatadine 1 drp OPB BID PRN 12/17/19 04/22/20 History trazodone 50 mg PO HS 12/17/19 04/22/20 History acetaminophen [Tylenol] 325 mg PO QID PRN 01/23/20 04/22/20 History nicotine [Nicoderm CQ] 21 mg TRANSDERMAL QAM #14 ea 02/07/20 04/22/20 Rx bismuth subsalicylate 524 mg PO QID PRN 04/01/20 04/22/20 History [Pepto-Bismol] ondansetron HCl 8 mg PO Q12H PRN 04/01/20 04/22/20 History risedronate [Actonel] 35 mg PO WK 04/01/20 04/22/20 History rizatriptan 10 mg PO .DAILY/UD PRN 04/01/20 04/22/20 History sucralfate [Carafate] 1 gm PO ACHS 04/01/20 04/22/20 History tramadol 50 mg PO QID PRN 04/01/20 04/22/20 History hydrocodone-acetaminophen 1 tab PO BID PRN 04/22/20 04/22/20 History hydroxyurea 500 mg PO DAILY 04/22/20 04/22/20 History Patient History Medical History CKD (chronic kidney disease), stage III COPD (chronic obstructive pulmonary disease) History of breast cancer chemo History of MRSA infection "left hip wound" History of peptic ulcer disease IBS (irritable bowel syndrome) Diarrhea predominant ; follows with GI Leukocytosis MDS/MPN (myelodysplastic/myeloproliferative neoplasms) Myelodysplastic syndrome Pelvic fracture 12/2018 pelvic fracture and monitor Pulmonary emboli 12/2019 just monitored Pulmonary nodules CT 01/23/20: 5 mm RML 3 mm RML 3 mm DEVEN 4 mm RUL S/P ORIF (open reduction internal fixation) fracture fracture hip x 5 and then had ORIF Subcapsular hemorrhage of spleen Thrombocytosis Surgical History H/O mastectomy modified radical masectomy H/O: hysterectomy History of cholecystectomy Hx of esophagogastroduodenoscopy Status post mastectomy "modified right mastectomy 1990" Status post total hip replacement, left had after ORIF hip Family History Other Unknown family medical history Social History Smoking Status: Current some day smoker Tobacco Type: Cigarettes packs per day: 1; Second Hand Exposure: No; Tobacco Cessation Education Requested by Patient: No Hx Alcohol Use: No Hx Substance Use: No Preferred Language: Ethiopian Communication Ability: Effective Human Resource Professional Required: No Beliefs That Will Affect Care: None marital status: / Current Living Situation: Family How many Children do You have: 2 Other Information That Helps Us Care for You: No Feels Safe at Home: Yes Safety Concerns: Feels Safe At This Time Review of Systems Constitutional: no fever, no chills and no fatigue Respiratory: no cough and no dyspnea Cardiovascular: no chest pain at rest and no dyspnea Gastrointestinal: + abdominal pain and + diarrhea/loose stools Physical Exam Constitutional: + ill appearing and + thin; no acute distress Neck: trachea midline Respiratory: normal respiratory effort Gastrointestinal (Abdomen): Inspection/Auscultation: normal bowel sounds Percussion/Palpation: + abdomen tender and abdomen soft Skin: no rashes, warm and dry Results & Data ([facility]) Vital Signs (Past 12 Hours) Vital Signs Temp Pulse Pulse Resp BP BP Pulse Ox 04/23/20 04:00 37 C 93 H 12 99 04/23/20 03:00 92 H 21 98 04/23/20 01:45 37 C 87 18 111/67 91 04/23/20 01:03 85 04/23/20 01:01 37 C 88 18 101/61 92 04/23/20 00:38 37 C 85 18 104/66 95 04/23/20 00:30 37.0 C 86 17 104/66 95 04/23/20 00:15 92/58 L 04/22/20 23:35 37 C 87 16 92/51 L 04/22/20 23:05 37 C 88 16 104/46 L 95 04/22/20 23:00 37 C 90 16 105/51 L 96 04/22/20 22:55 37 C 94 H 16 102/46 L 96 04/22/20 22:54 37.4 C 93 H 16 102/46 L 96 04/22/20 22:27 37.4 C 90 18 90/46 L 04/22/20 22:00 37.4 C 90 18 96/46 L 96 04/22/20 21:27 37.2 C 90 18 97/58 L 96 04/22/20 20:57 37.4 C 89 18 91/49 L 96 Laboratory Results 04/23/20 04/23/20 04/23/20 Range/Units 05:20 05:03 05:03 WBC 8.88 (4.8-10.8) K/uL RBC 3.08 L (4.2-5.4) M/uL Hgb 9.9 L (12.0-16.0) g/dL Hct 31.7 L (37-47) % MCV 102.9 H (80-100) fL MCH 32.1 (25-34) pg MCHC 31.2 L (32-36) g/dL RDW Std Deviation 85.8 H (36.4-46.3) fL RDW Coeff of Radha 26.0 H (11.5-14.5) % Plt Count 983 H (130-400) K/uL MPV 11.3 H (7.4-10.4) fL Immature Gran % (Auto) 1.5 % Neut % (Auto) 72.5 % Lymph % (Auto) 15.5 % Foster % (Auto) 8.2 % Eos % (Auto) 1.8 % Baso % (Auto) 0.5 % Neut # (Auto) 6.44 (1.4-6.5) K/uL Lymph # (Auto) 1.38 (1.2-3.4) K/uL Foster # (Auto) 0.73 H (0.11-0.59) K/uL Eos # (Auto) 0.16 (0-0.5) K/uL Baso # (Auto) 0.04 (0-0.2) K/uL Immature Gran # (Auto) 0.13 H (0.00-0.02) K/uL Absolute Nucleated RBC 0.07 H (0-0) K/uL Nucleated RBC % (auto) 0.7 % Giant Platelets 1+ Polychromasia 1+ Basophilic Stippling Anisocytosis Present Macrocytosis Present Stomatocytes 1+ Echinocytes 1+ PT (9.0-12.0) Seconds INR (0.9-1.1) APTT (21.0-31.0) Seconds PTT Ratio ABG pH ABG pCO2 ABG pO2 ABG HCO3 ABG O2 Saturation ABG Base Excess Mark Test Barometric Pressure Oxygen Given Sodium 146 H (136-145) mmol/L Potassium 5.1 (3.5-5.1) mmol/L Chloride 124 H (98-107) mmol/L Carbon Dioxide 15 L (21-32) mmol/L Anion Gap 7.0 (3-11) BUN 34 H (7-18) mg/dl Creatinine 1.40 H (0.6-1.2) mg/dl Est Cr Clr Drug Dosing 26.0 Est GFR ( Amer) 41.9 Est GFR (Non-Af Amer) 36.2 BUN/Creatinine Ratio 24.4 H (10-20) Glucose 74 (70-99) mg/dl Lactate (0.4-2.0) mmol/L Calcium 8.3 L (8.5-10.1) mg/dl Magnesium 1.9 (1.8-2.4) mg/dl Total Bilirubin (0.2-1) mg/dl AST (15-37) U/L ALT (12-78) U/L Alkaline Phosphatase (45-117) U/L Troponin I (0-0.045) ng/ml Total Protein (6.4-8.2) gm/dl Albumin (3.4-5.0) gm/dl Globulin (2.5-4.0) gm/dl Albumin/Globulin Ratio (0.9-2) Procalcitonin (0-0.5) ng/ml Specimen Hemolysis Urine Color Urine Appearance (Clear) Urine pH (4.5-7.5) Ur Specific [place] (1.000-1.030) Urine Protein (Negative) Urine Glucose (UA) (Negative) Urine Ketones (Negative) Urine Blood (Negative) Urine Nitrite (Negative) Urine Bilirubin (Negative) Urine Urobilinogen (Negative) Ur Leukocyte Esterase (Negative) Urine WBC (Auto) (0-5) /hpf Urine RBC (Auto) (0-4) /hpf U Hyaline Cast (Auto) (0-5) /lpf U Epithel Cells (Auto) (0-5) /lpf Urine Bacteria (Auto) (Negative) Nasal Screen MRSA (PCR) (Negative) Stl C. diff Tox B Gene Negative Cdiff Gene (Neg) Blood Type Antibody Screen Crossmatch 04/23/20 04/23/20 04/23/20 Range/Units 05:03 02:30 01:15 WBC (4.8-10.8) K/uL RBC (4.2-5.4) M/uL Hgb (12.0-16.0) g/dL Hct (37-47) % MCV (80-100) fL MCH (25-34) pg MCHC (32-36) g/dL RDW Std Deviation (36.4-46.3) fL RDW Coeff of Radha (11.5-14.5) % Plt Count (130-400) K/uL MPV (7.4-10.4) fL Immature Gran % (Auto) % Neut % (Auto) % Lymph % (Auto) % Foster % (Auto) % Eos % (Auto) % Baso % (Auto) % Neut # (Auto) (1.4-6.5) K/uL Lymph # (Auto) (1.2-3.4) K/uL Foster # (Auto) (0.11-0.59) K/uL Eos # (Auto) (0-0.5) K/uL Baso # (Auto) (0-0.2) K/uL Immature Gran # (Auto) (0.00-0.02) K/uL Absolute Nucleated RBC (0-0) K/uL Nucleated RBC % (auto) % Giant Platelets Polychromasia Basophilic Stippling Anisocytosis Macrocytosis Stomatocytes Echinocytes PT (9.0-12.0) Seconds INR (0.9-1.1) APTT (21.0-31.0) Seconds PTT Ratio ABG pH Cancelled ABG pCO2 Cancelled ABG pO2 Cancelled ABG HCO3 Cancelled ABG O2 Saturation Cancelled ABG Base Excess Cancelled Mark Test Cancelled Barometric Pressure Cancelled Oxygen Given Cancelled Sodium (136-145) mmol/L Potassium (3.5-5.1) mmol/L Chloride (98-107) mmol/L Carbon Dioxide (21-32) mmol/L Anion Gap (3-11) BUN (7-18) mg/dl Creatinine (0.6-1.2) mg/dl Est Cr Clr Drug Dosing Est GFR ( Amer) Est GFR (Non-Af Amer) BUN/Creatinine Ratio (10-20) Glucose (70-99) mg/dl Lactate (0.4-2.0) mmol/L Calcium (8.5-10.1) mg/dl Magnesium (1.8-2.4) mg/dl Total Bilirubin (0.2-1) mg/dl AST (15-37) U/L ALT (12-78) U/L Alkaline Phosphatase (45-117) U/L Troponin I (0-0.045) ng/ml Total Protein (6.4-8.2) gm/dl Albumin (3.4-5.0) gm/dl Globulin (2.5-4.0) gm/dl Albumin/Globulin Ratio (0.9-2) Procalcitonin (0-0.5) ng/ml Specimen Hemolysis Urine Color Yellow Urine Appearance Cloudy A (Clear) Urine pH 5.0 (4.5-7.5) Ur Specific [place] 1.016 (1.000-1.030) Urine Protein 1+ H (Negative) Urine Glucose (UA) Negative (Negative) Urine Ketones Trace H (Negative) Urine Blood Negative (Negative) Urine Nitrite Negative (Negative) Urine Bilirubin Negative (Negative) Urine Urobilinogen Negative (Negative) Ur Leukocyte Esterase Trace H (Negative) Urine WBC (Auto) 10-30 H (0-5) /hpf Urine RBC (Auto) 0-4 (0-4) /hpf U Hyaline Cast (Auto) 1-5 (0-5) /lpf U Epithel Cells (Auto) 0-5 (0-5) /lpf Urine Bacteria (Auto) 3+ H (Negative) Nasal Screen MRSA (PCR) Negative (Negative) Stl C. diff Tox B Gene (Neg) Blood Type Antibody Screen Crossmatch 04/22/20 04/22/20 04/22/20 Range/Units 19:10 19:10 19:10 WBC (4.8-10.8) K/uL RBC (4.2-5.4) M/uL Hgb (12.0-16.0) g/dL Hct (37-47) % MCV (80-100) fL MCH (25-34) pg MCHC (32-36) g/dL RDW Std Deviation (36.4-46.3) fL RDW Coeff of Radha (11.5-14.5) % Plt Count (130-400) K/uL MPV (7.4-10.4) fL Immature Gran % (Auto) % Neut % (Auto) % Lymph % (Auto) % Foster % (Auto) % Eos % (Auto) % Baso % (Auto) % Neut # (Auto) (1.4-6.5) K/uL Lymph # (Auto) (1.2-3.4) K/uL Foster # (Auto) (0.11-0.59) K/uL Eos # (Auto) (0-0.5) K/uL Baso # (Auto) (0-0.2) K/uL Immature Gran # (Auto) (0.00-0.02) K/uL Absolute Nucleated RBC (0-0) K/uL Nucleated RBC % (auto) % Giant Platelets Polychromasia Basophilic Stippling Anisocytosis Macrocytosis Stomatocytes Echinocytes PT (9.0-12.0) Seconds INR (0.9-1.1) APTT (21.0-31.0) Seconds PTT Ratio ABG pH ABG pCO2 ABG pO2 ABG HCO3 ABG O2 Saturation ABG Base Excess Mark Test Barometric Pressure Oxygen Given Sodium 143 (136-145) mmol/L Potassium 4.8 (3.5-5.1) mmol/L Chloride 122 H (98-107) mmol/L Carbon Dioxide 13 L (21-32) mmol/L Anion Gap 8.0 (3-11) BUN 36 H (7-18) mg/dl Creatinine 1.69 H (0.6-1.2) mg/dl Est Cr Clr Drug Dosing Not Reportable Est GFR ( Amer) 33.4 Est GFR (Non-Af Amer) 28.8 BUN/Creatinine Ratio 21.2 H (10-20) Glucose 79 (70-99) mg/dl Lactate 0.5 (0.4-2.0) mmol/L Calcium 7.6 L (8.5-10.1) mg/dl Magnesium 1.7 L (1.8-2.4) mg/dl Total Bilirubin 0.3 (0.2-1) mg/dl AST 13 L (15-37) U/L ALT 10 L (12-78) U/L Alkaline Phosphatase 91 (45-117) U/L Troponin I 0.066 H* (0-0.045) ng/ml Total Protein 5.6 L (6.4-8.2) gm/dl Albumin 2.7 L (3.4-5.0) gm/dl Globulin 2.9 (2.5-4.0) gm/dl Albumin/Globulin Ratio 0.9 (0.9-2) Procalcitonin 70.13 H (0-0.5) ng/ml Specimen Hemolysis Urine Color Urine Appearance (Clear) Urine pH (4.5-7.5) Ur Specific [place] (1.000-1.030) Urine Protein (Negative) Urine Glucose (UA) (Negative) Urine Ketones (Negative) Urine Blood (Negative) Urine Nitrite (Negative) Urine Bilirubin (Negative) Urine Urobilinogen (Negative) Ur Leukocyte Esterase (Negative) Urine WBC (Auto) (0-5) /hpf Urine RBC (Auto) (0-4) /hpf U Hyaline Cast (Auto) (0-5) /lpf U Epithel Cells (Auto) (0-5) /lpf Urine Bacteria (Auto) (Negative) Nasal Screen MRSA (PCR) (Negative) Stl C. diff Tox B Gene (Neg) Blood Type Antibody Screen Crossmatch 04/22/20 04/22/20 04/22/20 Range/Units 19:10 19:10 18:46 WBC 6.70 (4.8-10.8) K/uL RBC 2.18 L (4.2-5.4) M/uL Hgb 7.1 L (12.0-16.0) g/dL Hct 23.6 L (37-47) % MCV 108.3 H (80-100) fL MCH 32.6 (25-34) pg MCHC 30.1 L (32-36) g/dL RDW Std Deviation 106.9 H (36.4-46.3) fL RDW Coeff of Radha 28.2 H (11.5-14.5) % Plt Count 1136 H* (130-400) K/uL MPV 10.9 H (7.4-10.4) fL Immature Gran % (Auto) 1.8 % Neut % (Auto) 64.1 % Lymph % (Auto) 20.9 % Foster % (Auto) 10.3 % Eos % (Auto) 1.9 % Baso % (Auto) 1.0 % Neut # (Auto) 4.29 (1.4-6.5) K/uL Lymph # (Auto) 1.40 (1.2-3.4) K/uL Foster # (Auto) 0.69 H (0.11-0.59) K/uL Eos # (Auto) 0.13 (0-0.5) K/uL Baso # (Auto) 0.07 (0-0.2) K/uL Immature Gran # (Auto) 0.12 H (0.00-0.02) K/uL Absolute Nucleated RBC 0.06 H (0-0) K/uL Nucleated RBC % (auto) 0.8 % Giant Platelets 1+ Polychromasia Basophilic Stippling 1+ Anisocytosis Macrocytosis Present Stomatocytes Echinocytes PT 11.7 (9.0-12.0) Seconds INR 1.1 (0.9-1.1) APTT 30.5 (21.0-31.0) Seconds PTT Ratio 1.1 ABG pH ABG pCO2 ABG pO2 ABG HCO3 ABG O2 Saturation ABG Base Excess Mark Test Barometric Pressure Oxygen Given Sodium (136-145) mmol/L Potassium (3.5-5.1) mmol/L Chloride (98-107) mmol/L Carbon Dioxide (21-32) mmol/L Anion Gap (3-11) BUN (7-18) mg/dl Creatinine (0.6-1.2) mg/dl Est Cr Clr Drug Dosing Est GFR ( Amer) Est GFR (Non-Af Amer) BUN/Creatinine Ratio (10-20) Glucose (70-99) mg/dl Lactate (0.4-2.0) mmol/L Calcium (8.5-10.1) mg/dl Magnesium (1.8-2.4) mg/dl Total Bilirubin (0.2-1) mg/dl AST (15-37) U/L ALT (12-78) U/L Alkaline Phosphatase (45-117) U/L Troponin I (0-0.045) ng/ml Total Protein (6.4-8.2) gm/dl Albumin (3.4-5.0) gm/dl Globulin (2.5-4.0) gm/dl Albumin/Globulin Ratio (0.9-2) Procalcitonin (0-0.5) ng/ml Specimen Hemolysis Urine Color Urine Appearance (Clear) Urine pH (4.5-7.5) Ur Specific [place] (1.000-1.030) Urine Protein (Negative) Urine Glucose (UA) (Negative) Urine Ketones (Negative) Urine Blood (Negative) Urine Nitrite (Negative) Urine Bilirubin (Negative) Urine Urobilinogen (Negative) Ur Leukocyte Esterase (Negative) Urine WBC (Auto) (0-5) /hpf Urine RBC (Auto) (0-4) /hpf U Hyaline Cast (Auto) (0-5) /lpf U Epithel Cells (Auto) (0-5) /lpf Urine Bacteria (Auto) (Negative) Nasal Screen MRSA (PCR) (Negative) Stl C. diff Tox B Gene (Neg) Blood Type A Positive Antibody Screen NEGATIVE Crossmatch See Detail (1) Anemia Anemia type: unspecified type Qualified Code(s): D64.9 - Anemia, unspecified
[2020-04-23] MEDS: HYDROXYUREA 500 MG CAP PO SCH (09:37)
[2020-04-23] MEDS: PREGABALIN 75 MG CAP PO SCH ×2 (14:14→21:03)
--- NOTE | 2020-04-23 17:27 | Hospitalist Progress Note ---
Date of Service April 23, 2020 Assessment & Plan (1) Acute blood loss anemia: Presented with symptomatic anemia Blood loss seems to be due to ongoing chronic GI bleed Complicated by myelodysplastic syndrome Received 2 units of PRBC since admission Hemoglobin went up to 9.9 as of this morning of 04/23/2020 Symptomatically better (2) GIB (gastrointestinal bleeding): Not having any black tarry stool Having diarrhea recently without any C. 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 Has significant thrombocytosis Has been on hydroxyurea for thrombocytosis We will monitor platelets (4) Acute kidney injury superimposed on chronic kidney disease: Has history of chronic kidney disease stage III Noted to have increasing BUN and creatinine likely secondary to dehydration following diarrhea Has significant electrolyte abnormalities We will give cautious amount of intravenous fluid and monitor PRP and electrolytes (5) COPD (chronic obstructive pulmonary disease): Has been on 2 L oxygen at home continuously Saturating well on 2 L oxygen while in the hospital No acute symptoms of COPD (6) Thrombocytosis: As above (7) Pulmonary emboli: History of DVT and pulmonary embolism Not on any anticoagulation due to GI bleed and anemia History of subcapsular hemorrhage the spleen No acute pain Mildly elevated troponin Seems to be chronic and is complicated by DEISY No evidence of chest pain and no EKG changes (8) Hyperchloremic metabolic acidosis: Likely secondary to diarrhea We will advise increase oral intake Avoid giving any more intravenous fluid especially normal saline Monitor creatinine Admission and Anticipated Discharge Date Admission Date: April 22, 2020 Subjective 04/23/2020 The patient was seen and examined in ICU He was admitted with generalized weakness and possible GI bleed with history of MDS Has been feeling a little bit better today but remains generally weak Complains to have headache but denies any abdominal pain, nausea and or vomiting Has diarrhea but C. difficile has been negative Review of Systems Review of Systems: All systems reviewed and are unremarkable except as noted below Gastrointestinal: + diarrhea/loose stools and + blood in stools (No black stool but the stool is tested positive for blood); no abdominal pain Physical Exam Physical Exam: Lying in bed comfortably Constitutional: + ill appearing and + thin; no acute distress Eyes: PERRL, conjunctivae normal, anicteric sclerae ENMT: external ear and nose normal, oropharynx normal Neck: trachea midline, no thyromegaly Respiratory: normal respiratory effort; no respiratory distress Auscultation: lungs clear to auscultation bilaterally Cardiovascular: Rate/Rhythm: regular rate and regular rhythm Heart Sounds: + murmur (2/6 ESM over precordium) Gastrointestinal (Abdomen): Inspection/Auscultation: abdomen normal to inspection and normal bowel sounds; abdomen not distended Percussion/Palpation: abdomen soft; abdomen nontender Musculoskeletal: No acute arthritis involving any joints Neurologic: moves all extremities; no focal motor deficits Generally very weak and lethargic Results & Data Results & Data ([facility]) Vital Signs (Past 12 Hours) Vital Signs Temp Pulse Resp BP Pulse Ox 04/23/20 16:00 81 04/23/20 12:12 89 18 100/62 96 04/23/20 12:00 36.8 C 87 10 L 96 04/23/20 11:00 91 H 13 99 04/23/20 10:01 92 H 10 L 109/64 100 04/23/20 10:00 92 H 10 L 100 04/23/20 09:15 89 12 97 04/23/20 09:14 36.8 C 90 7 L 98 04/23/20 09:00 98 H 17 96 04/23/20 08:00 90 16 96 04/23/20 07:00 91 H 14 99 04/23/20 06:01 92 H 14 137/64 97 04/23/20 06:00 92 H 12 97 04/23/20 05:25 98 H 13 110/78 97 Laboratory Results Short CBC 04/22/20 04/23/20 Range/Units 19:10 05:03 WBC 6.70 8.88 (4.8-10.8) K/uL Hgb 7.1 L 9.9 L (12.0-16.0) g/dL Hct 23.6 L 31.7 L (37-47) % Plt Count 1136 H* 983 H (130-400) K/uL BMP 04/22/20 04/23/20 19:10 05:03 Sodium 143 146 H Potassium 4.8 5.1 Chloride 122 H 124 H Carbon Dioxide 13 L 15 L BUN 36 H 34 H Creatinine 1.69 H 1.40 H Glucose 79 74 Calcium 7.6 L 8.3 L Cardiac Enzymes 04/22/20 Range/Units 19:10 Troponin I 0.066 H* (0-0.045) ng/ml Liver Function 04/22/20 Range/Units 19:10 Total Bilirubin 0.3 (0.2-1) mg/dl AST 13 L (15-37) U/L ALT 10 L (12-78) U/L Alkaline Phosphatase 91 (45-117) U/L Albumin 2.7 L (3.4-5.0) gm/dl Urine 04/23/20 Range/Units 01:15 Urine Color Yellow Urine Appearance Cloudy A (Clear) Urine pH 5.0 (4.5-7.5) Ur Specific [place] 1.016 (1.000-1.030) Urine Protein 1+ H (Negative) Urine Glucose (UA) Negative (Negative) Medications Administered Current Inpatient Medications Acetaminophen (Acetaminophen 325 Mg Tab) 650 mg PO Q4H PRN PRN Reason: Pain or Fever Stop: 05/23/20 00:11 Hydrocodone Bitart/Acetaminophen (Hydrocodone/Acetaminophen 10/325 Tab) 1 tab PO BID PRN PRN Reason: Pain Stop: 05/07/20 00:11 Albuterol (Albuterol 0.083% Nebu Soln 3 Ml Vial) 2.5 mg INH Q4H PRN PRN Reason: Wheezing Stop: 05/23/20 00:11 Albuterol (Albuterol Hfa 8 Gm Inhaler) 2 puffs INH QID PRN PRN Reason: Shortness Of Breath Or Wheezing Stop: 05/23/20 00:11 Amitriptyline HCl (Amitriptyline Hcl 25 Mg Tab) 75 mg PO HS SHROTY Stop: 05/23/20 20:59 Fluticasone/Vilanterol (Fluticasone/Vilanterol 100/25mcg 14 Puffs/Inhaler) 1 puffs INH DAILY SHORTY Stop: 05/23/20 08:59 Last Admin: 04/23/20 08:15 Dose: 1 puffs Documented by: Hydroxyurea (Hydroxyurea 500 Mg Cap) 500 mg PO DAILY SHORT[facility] Stop: 05/23/20 08:59 Last Admin: 04/23/20 09:37 Dose: Not Given Documented by: Pantoprazole Sodium 40 mg/ (Dextrose) 100 mls @ 20 mls/hr IV Q5H [facility] Stop: 05/22/20 20:14 Last Admin: 04/23/20 13:44 Dose: 8 mg/hr, 20 mls/hr Documented by: Ceftriaxone Sodium 1,000 mg/ (Dextrose) 60 mls @ 100 mls/hr IV DAILY [facility]; Protocol Stop: 04/28/20 08:59 Last Infusion: 04/23/20 09:01 Dose: Infused Documented by: Miscellaneous (Olopatadine~Order Awaiting Action) 1 ea N/A QS [facility] Stop: 05/23/20 07:59 Last Admin: 04/23/20 15:25 Dose: Not Given Documented by: Morphine Sulfate (Morphine Sulfate 4 Mg/Ml 1 Ml Carp\Vial) 3 mg IV Q4H PRN PRN Reason: Pain Stop: 05/07/20 00:11 Nitroglycerin (Nitroglycerin Sl 0.4 Mg/Tab Tab) 0.4 mg SL UD PRN PRN Reason: Chest Pain Stop: 05/23/20 00:11 Ondansetron HCl (Ondansetron Inj 2 Mg/Ml 2 Ml Vial) 4 mg IV Q6H PRN PRN Reason: Nausea Stop: 05/23/20 00:11 Pregabalin (Pregabalin 75 Mg Cap) 75 mg PO BID [facility] Stop: 05/23/20 08:59 Last Admin: 04/23/20 14:14 Dose: Not Given Documented by: Risedronate (Risedronate Sodium 35 Mg Tab) 35 mg PO Abrams@0630 [facility] Stop: 05/26/20 06:29 Rizatriptan Benzoate (Rizatriptan Benzoate 10 Mg Tab) 10 mg PO .DAILY/UD PRN PRN Reason: Headache Stop: 05/23/20 00:11 Temazepam (Temazepam 15 Mg Capsule) 30 mg PO HS PRN PRN Reason: Sleep Stop: 05/23/20 00:11 Trazodone HCl (Trazodone Hcl 50 Mg Tab) 50 mg PO HS [facility] Stop: 05/23/20 20:59 Umeclidinium [place] (Umeclidinium [place] 62.5mcg/Blister 7 Puffs/Inhaler) 1 puffs INH QAM [facility] Stop: 05/23/20 08:59 Last Admin: 08/20/20 08:15 Dose: 1 puffs Documented by: (1) GIB (gastrointestinal bleeding) GI bleed type/associated pathology: melena Qualified Code(s): K92.1 - Melena (2) COPD (chronic obstructive pulmonary disease) COPD type: unspecified COPD Qualified Code(s): J44.9 - Chronic obstructive pulmonary disease, unspecified
[2020-04-23] MEDS ORDERED: LOPERAMIDE HCL 2 MG CAP PO PRN (17:50)
[2020-04-23] MEDS: HYDROCODONE/ACETAMINOPHEN 10/325 TAB PO PRN (18:21)
[2020-04-23] MEDS ORDERED: VANCOMYCIN CONSULT ACTIVE PRN (19:38)
[2020-04-23] MEDS ORDERED: VANCOMYCIN HCL 1,000 MG in SODIUM CHLORIDE 0.9% 250 ML IV ONE (20:30)
--- NOTE | 2020-04-23 20:42 | Pharmacy Report ---
Pharmacy Abx Dose Short Note - Date of Service April 23, 2020 - Assessment & Plan Laboratory Tests 04/22/20 04/23/20 04/23/20 19:10 05:03 05:03 WBC 8.88 Creatinine 1.69 H 1.40 H Est Cr Clr Drug Dosing 26.0 Assessment 79 year old F receiving Vanc/Ceftriaxone-IV for treatment of confirmed bacteremia Day # 1 of antimicrobial therapy. Plan Vancomycin * Estimate p'kinetics: Ke~[id number] T1/2 > 24 hours * LOADING DOSE: Vanc 1000mg (~20 mg/kg) IV x 1 * Random Vanc ordered 04/24 @1200 to guide subsequent dosing. * Scr qAM x 3 Pharmacy will continue to follow and will adjust dose/frequency as necessary. Thank you.
[2020-04-23] MEDS: AMITRIPTYLINE HCL 25 MG TAB PO SCH (21:03)
[2020-04-23] MEDS: TRAZODONE HCL 50 MG TAB PO SCH (21:08)
[2020-04-23] MEDS: TEMAZEPAM 15 MG CAPSULE PO PRN (21:08)
[2020-04-23] MEDS: ACETAMINOPHEN 325 MG TAB PO PRN (21:40)
[2020-04-24] MEDS: PANTOprazole 40 MG in DEXTROSE 5% 100 ML IV SCH ×4 (02:14→13:39)
[2020-04-24] MEDS: OLOPATADINE~ORDER AWAITING ACTION SCH ×3 (02:14→15:51)
--- NOTE | 2020-04-24 05:13 | Electrocardiogram Report ---
Test Reason : Blood Pressure : / mmHG Vent. Rate : 088 BPM Atrial Rate : 088 BPM P-R Int : 150 ms QRS Dur : 100 ms QT Int : 366 ms P-R-T Axes : 080 079 -13 degrees QTc Int : 442 ms Normal sinus rhythm Incomplete right bundle branch block T wave abnormality, consider anterior ischemia Abnormal ECG When compared with ECG of 03-APR-2020 06:44, Inverted T waves have replaced nonspecific T wave abnormality in Inferior leads T wave inversion less evident in Anterior leads QT has shortened Confirmed by Rober Akins ([id number]) on 04/24/2020 5:12:48 AM Referred By: Valerie Chavez Confirmed By:Rober Akins
[2020-04-24 08:06] LABS: Creatinine Clr Calc Pharmacy 31.7 ml/min; Est GFR (African American) 51.5; Est GFR (Non-African American) 44.5
[2020-04-24] MEDS: cefTRIAXone SODIUM 1,000 MG in DEXTROSE 5% 50 ML IV SCH (08:13)
[2020-04-24] MEDS: HYDROXYUREA 500 MG CAP PO SCH (08:14)
[2020-04-24] MEDS: FLUTICASONE/VILANTEROL 100/25MCG 14 PUFFS/INHALER INH SCH (08:14)
[2020-04-24] MEDS: UMECLIDINIUM BROMIDE 62.5MCG/BLISTER 7 PUFFS/INHALER INH SCH (08:14)
[2020-04-24] MEDS: PREGABALIN 75 MG CAP PO SCH ×2 (08:19→19:29)
[2020-04-24] MEDS: HYDROCODONE/ACETAMINOPHEN 10/325 TAB PO PRN ×2 (08:19→19:30)
[2020-04-24 09:17] LABS: Basophils # (auto) 0.08 K/uL (0-0.2); Basophils % (auto) 1.3 %; Eosinophils % (auto) 3.3 %; Hematocrit (blood only) 31.7 % (37-47); Hemoglobin 10.3 g/dL (12.0-16.0); Immature Granulocytes # (auto) 0.14 K/uL (0.00-0.02); Immature Granulocytes % (auto) 2.3 %; Lymphocytes # (auto) 1.06 K/uL (1.2-3.4); Lymphocytes % (auto) 17.7 %; Mean Corpuscular Hemoglobin 32.6 pg (25-34); Mean Corpuscular Hgb Conc 32.5 g/dL (32-36); Mean Corpuscular Volume 100.3 fL (80-100); Mean Platelet Volume 11.5 fL (7.4-10.4); Monocytes # (auto) 0.99 K/uL (0.11-0.59); Monocytes % (auto) 16.5 %; Neutrophils # (auto) 3.52 K/uL (1.4-6.5); Neutrophils % (auto) 58.9 %; Nucleated RBC # (auto) 0.06 K/uL (0-0); Platelet Count 755 K/uL (130-400); RDW Coefficient of Variation 25.3 % (11.5-14.5); RDW Standard Deviation 84.1 fL (36.4-46.3); Red Blood Count 3.16 M/uL (4.2-5.4); White Blood Count 5.99 K/uL (4.8-10.8)
[2020-04-24 09:28] LABS: Albumin Globulin Ratio 0.9 (0.9-2); Albumin Level 2.7 gm/dl (3.4-5.0); BUN Creatinine Ratio 22.8 (10-20); Bilirubin,Total 0.5 mg/dl (0.2-1); Calcium 7.8 mg/dl (8.5-10.1); Creatinine Clr Calc Pharmacy 30.9 ml/min; Est GFR (Non-African American) 43.1; Globulin 2.9 gm/dl (2.5-4.0); Phosphorus 2.3 mg/dl (2.5-4.9); Potassium 3.7 mmol/L (3.5-5.1); Total Protein 5.6 gm/dl (6.4-8.2)
[2020-04-24] MEDS ORDERED: OCTREOTIDE ACETATE 100 MCG/ML VIAL SQ STA (09:28)
[2020-04-24] MEDS ORDERED: LOPERAMIDE HCL 2 MG CAP PO PRN (09:29)
[2020-04-24 09:52] LABS: Anisocytosis Present; Poikilocytosis Present
--- NOTE | 2020-04-24 13:38 | Hospitalist Progress Note ---
Date of Service April 24, 2020 Assessment & Plan (1) Acute blood loss anemia: Presented with symptomatic anemia Blood loss seems to be due to ongoing chronic GI bleed Complicated by myelodysplastic syndrome Received 2 units of PRBC since admission Hemoglobin went up to 9.9 as of this morning of 04/23/2020 Symptomatically better but remains generally weak Repeat hemoglobin went up to 10.3 as of 04/24/2020 Generalized weakness Multifactorial. Systemic disease including MDS, anemia, infection We will get PT and OT evaluation Chronic diarrhea Has been under care of GI as an outpatient No evidence of C. difficile colitis Discussed with cloud administrator Will give Imodium and dry 1 dose of octreotide (2) MDS/MPN (myelodysplastic/myeloproliferative neoplasms): Has been under care of technical inspector/oncologist Has significant thrombocytosis Has been on hydroxyurea for thrombocytosis We will monitor platelets-platelets have been improving (3) UTI (urinary tract infection): Noted to have gram-negative bacilli UTI Has been on intravenous ceftriaxone Await sensitivity (4) Gram-positive bacteremia: Noted to have gram-positive cocci in clusters in blood Does not have a definitive source known yet Has been getting intravenous vancomycin Has murmur We will get echo to rule out vegetations She has been too weak to go for PT (5) GIB (gastrointestinal bleeding): Not having any black tarry stool Having diarrhea recently without any C. difficile infection Appreciate GI input and recommendation Has been getting Protonix drip and will be changed to oral Protonix after 48 hours No plan for endoscopy Monitor H&H-much improved (6) Acute kidney injury superimposed on chronic kidney disease: Has history of chronic kidney disease stage III Noted to have increasing BUN and creatinine likely secondary to dehydration following diarrhea Has significant electrolyte abnormalities We will give cautious amount of intravenous fluid and monitor PRP and electrolytes (7) COPD (chronic obstructive pulmonary disease): Has been on 2 L oxygen at home continuously Saturating well on 2 L oxygen while in the hospital No acute symptoms of COPD (8) Thrombocytosis: As above (9) Pulmonary emboli: History of DVT and pulmonary embolism Not on any anticoagulation due to GI bleed and anemia History of subcapsular hemorrhage the spleen No acute pain Mildly elevated troponin Seems to be chronic and is complicated by DEISY No evidence of chest pain and no EKG changes History of breast cancer No acute symptoms (10) Hyperchloremic metabolic acidosis: Likely secondary to diarrhea We will advise increase oral intake Avoid giving any more intravenous fluid especially normal saline Creatinine has been improving Remains acidotic Admission and Anticipated Discharge Date Admission Date: April 22, 2020 Subjective 04/23/2020 The patient was seen and examined in ICU He was admitted with generalized weakness and possible GI bleed with history of MDS Has been feeling a little bit better today but remains generally weak Complains to have headache but denies any abdominal pain, nausea and or vomiting Has diarrhea but C. difficile has been negative 04/24/2020 The patient was seen and examined in telemetry unit She remains very weak and lethargic Denies any acute distress Her diarrhea continues Review of Systems Review of Systems: All systems reviewed and are unremarkable except as noted below Constitutional: + weakness Gastrointestinal: + diarrhea/loose stools and + blood in stools (No black stool but the stool is tested positive for blood); no abdominal pain Physical Exam Physical Exam: Lying in bed comfortably but extremely weak Constitutional: + ill appearing and + thin; no acute distress Eyes: PERRL, conjunctivae normal, anicteric sclerae ENMT: external ear and nose normal, oropharynx normal Neck: trachea midline, no thyromegaly Respiratory: normal respiratory effort; no respiratory distress Auscultation: lungs clear to auscultation bilaterally Cardiovascular: Rate/Rhythm: regular rate and regular rhythm Heart Sounds: + murmur (2/6 ESM over precordium) Gastrointestinal (Abdomen): Inspection/Auscultation: abdomen normal to inspection and normal bowel sounds; abdomen not distended Percussion/Palpation: abdomen soft; abdomen nontender Musculoskeletal: No acute arthritis involving any joints Neurologic: moves all extremities; no focal motor deficits Results & Data Results & Data ([facility]) Vital Signs (Past 12 Hours) Vital Signs Temp Pulse Resp BP BP Pulse Ox 04/24/20 11:47 36.7 C 96 H 18 116/66 92 04/24/20 07:18 36.4 C L 92 H 19 138/74 90 04/24/20 03:48 36.6 C 65 14 144/79 H 95 Laboratory Results Short CBC 04/24/20 Range/Units 06:58 WBC 5.99 (4.8-10.8) K/uL Hgb 10.3 L (12.0-16.0) g/dL Hct 31.7 L (37-47) % Plt Count 755 H (130-400) K/uL BMP 04/24/20 04/24/20 06:50 06:58 Sodium 145 Potassium 3.7 D Chloride 122 H Carbon Dioxide 15 L BUN 28 H Creatinine 1.18 1.21 H Glucose 86 Calcium 7.8 L Liver Function 04/24/20 Range/Units 06:58 Total Bilirubin 0.5 (0.2-1) mg/dl AST 14 L (15-37) U/L ALT 7 L (12-78) U/L Alkaline Phosphatase 94 (45-117) U/L Albumin 2.7 L (3.4-5.0) gm/dl Medications Administered Current Inpatient Medications Acetaminophen (Acetaminophen 325 Mg Tab) 650 mg PO Q4H PRN PRN Reason: Pain or Fever Stop: 05/23/20 00:11 Last Admin: 04/23/20 21:40 Dose: 650 mg Documented by: Hydrocodone Bitart/Acetaminophen (Hydrocodone/Acetaminophen 10/325 Tab) 1 tab PO BID PRN PRN Reason: Pain Stop: 05/07/20 00:11 Last Admin: 04/24/20 08:19 Dose: 1 tab Documented by: Albuterol (Albuterol 0.083% Nebu Soln 3 Ml Vial) 2.5 mg INH Q4H PRN PRN Reason: Wheezing Stop: 05/23/20 00:11 Albuterol (Albuterol Hfa 8 Gm Inhaler) 2 puffs INH QID PRN PRN Reason: Shortness Of Breath Or Wheezing Stop: 05/23/20 00:11 Amitriptyline HCl (Amitriptyline Hcl 25 Mg Tab) 75 mg PO HS [facility] Stop: 05/23/20 20:59 Last Admin: 04/23/20 21:03 Dose: 75 mg Documented by: Fluticasone/Vilanterol (Fluticasone/Vilanterol 100/25mcg 14 Puffs/Inhaler) 1 puffs INH DAILY [facility] Stop: 05/23/20 08:59 Last Admin: 04/24/20 08:14 Dose: 1 puffs Documented by: Hydroxyurea (Hydroxyurea 500 Mg Cap) 500 mg PO DAILY [facility] Stop: 05/23/20 08:59 Last Admin: 04/24/20 08:14 Dose: 500 mg Documented by: Pantoprazole Sodium 40 mg/ (Dextrose) 100 mls @ 20 mls/hr IV Q5H [facility] Stop: 05/22/20 20:14 Last Admin: 04/24/20 11:16 Dose: Not Given Documented by: Ceftriaxone Sodium 1,000 mg/ (Dextrose) 60 mls @ 100 mls/hr IV DAILY [facility]; Protocol Stop: 04/28/20 08:59 Last Infusion: 04/24/20 09:00 Dose: Infused Documented by: Loperamide HCl (Loperamide Hcl 2 Mg Cap) 4 mg PO Q4H PRN PRN Reason: Diarrhea Stop: 05/23/20 17:49 Miscellaneous (Olopatadine~Order Awaiting Action) 1 ea N/A QS [facility] Stop: 05/23/20 07:59 Last Admin: 04/24/20 08:13 Dose: Not Given Documented by: Miscellaneous Information (Vancomycin Consult Active) 1 ea N/A UD PRN PRN Reason: Consult Stop: 05/23/20 19:37 Morphine Sulfate (Morphine Sulfate 4 Mg/Ml 1 Ml Carp\Vial) 3 mg IV Q4H PRN PRN Reason: Pain Stop: 05/07/20 00:11 Nitroglycerin (Nitroglycerin Sl 0.4 Mg/Tab Tab) 0.4 mg SL UD PRN PRN Reason: Chest Pain Stop: 05/23/20 00:11 Ondansetron HCl (Ondansetron Inj 2 Mg/Ml 2 Ml Vial) 4 mg IV Q6H PRN PRN Reason: Nausea Stop: 05/23/20 00:11 Pregabalin (Pregabalin 75 Mg Cap) 75 mg PO BID [facility] Stop: 05/23/20 08:59 Last Admin: 04/24/20 08:19 Dose: 75 mg Documented by: Risedronate (Risedronate Sodium 35 Mg Tab) 35 mg PO Abrams@0630 [facility] Stop: 05/26/20 06:29 Rizatriptan Benzoate (Rizatriptan Benzoate 10 Mg Tab) 10 mg PO .DAILY/UD PRN PRN Reason: Headache Stop: 05/23/20 00:11 Temazepam (Temazepam 15 Mg Capsule) 30 mg PO HS PRN PRN Reason: Sleep Stop: 05/23/20 00:11 Last Admin: 04/23/20 21:08 Dose: 30 mg Documented by: Trazodone HCl (Trazodone Hcl 50 Mg Tab) 50 mg PO HS [facility] Stop: 05/23/20 20:59 Last Admin: 04/23/20 21:08 Dose: 50 mg Documented by: Umeclidinium [place] (Umeclidinium [place] 62.5mcg/Blister 7 Puffs/Inhaler) 1 puffs INH QAM [facility] Stop: 05/23/20 08:59 Last Admin: 04/24/20 08:14 Dose: 1 puffs Documented by: (1) GIB (gastrointestinal bleeding) GI bleed type/associated pathology: melena Qualified Code(s): K92.1 - Melena (2) COPD (chronic obstructive pulmonary disease) COPD type: unspecified COPD Qualified Code(s): J44.9 - Chronic obstructive pulmonary disease, unspecified
[2020-04-24] MEDS ORDERED: POTASSIUM PHOS 3 MMOL/1 ML INFUSION IV STA (13:39)
[2020-04-24] MEDS ORDERED: POTASSIUM PHOSPHATE 15 MMOL in SODIUM CHLORIDE 0.9% 250 ML IV ONE (14:00)
--- NOTE | 2020-04-24 14:07 | Pharmacy Report ---
Pharmacy Abx Dose Short Note - Date of Service April 24, 2020 - Assessment & Plan Assessment 79 year old F receiving vancomycin and ceftriaxone for treatment of confirmed bacteremia secondary to currently unknown source / UTI Day # 2 of vancomycin therapy. (04/23) Blood cultures (2 of 2): gram positive cocci in clusters (04/23) Urine Culture: gram negative bacilli x 2 species Plan Vancomycin * Random level of 10.1 mcg/mL obtained approximately 17 hours after loading dose * Will utilize 1000 mg (20 mg/kg) IV q24h dosing * Goal trough level for bacteremia : 15 to 20 mcg/mL * Trough level ordered for: 04/26/20 prior to 4th dose Pharmacy will continue to follow and will adjust dose/frequency as necessary. Thank you.
[2020-04-24] MEDS: VANCOMYCIN HCL 1,000 MG in SODIUM CHLORIDE 0.9% 250 ML IV SCH (14:14)
[2020-04-24] MEDS: AMITRIPTYLINE HCL 25 MG TAB PO SCH (19:30)
[2020-04-24] MEDS: PANTOprazole 40 MG TAB PO SCH (19:30)
[2020-04-24] MEDS: TRAZODONE HCL 50 MG TAB PO SCH (19:35)
[2020-04-25] MEDS: OLOPATADINE~ORDER AWAITING ACTION SCH ×3 (01:10→15:26)
[2020-04-25 06:44] LABS: Basophils # (auto) 0.05 K/uL (0-0.2); Basophils % (auto) 0.8 %; Eosinophils % (auto) 1.5 %; Hematocrit (blood only) 33.1 % (37-47); Hemoglobin 10.5 g/dL (12.0-16.0); Immature Granulocytes # (auto) 0.06 K/uL (0.00-0.02); Immature Granulocytes % (auto) 0.9 %; Lymphocytes # (auto) 1.11 K/uL (1.2-3.4); Lymphocytes % (auto) 16.7 %; Mean Corpuscular Hemoglobin 30.8 pg (25-34); Mean Corpuscular Hgb Conc 31.7 g/dL (32-36); Mean Corpuscular Volume 97.1 fL (80-100); Mean Platelet Volume 11.7 fL (7.4-10.4); Monocytes # (auto) 1.08 K/uL (0.11-0.59); Monocytes % (auto) 16.2 %; Neutrophils # (auto) 4.25 K/uL (1.4-6.5); Neutrophils % (auto) 63.9 %; Platelet Count 489 K/uL (130-400); RDW Coefficient of Variation 25.1 % (11.5-14.5); Red Blood Count 3.41 M/uL (4.2-5.4); White Blood Count 6.65 K/uL (4.8-10.8)
[2020-04-25 07:08] LABS: Creatinine Clr Calc Pharmacy 36.5 ml/min; Est GFR (African American) 68.7; Est GFR (Non-African American) 59.3
[2020-04-25 07:24] LABS: Anisocytosis Present; Poikilocytosis Present
[2020-04-25] MEDS: PREGABALIN 75 MG CAP PO SCH ×2 (07:49→20:08)
[2020-04-25] MEDS: HYDROCODONE/ACETAMINOPHEN 10/325 TAB PO PRN ×2 (07:49→20:03)
[2020-04-25] MEDS: UMECLIDINIUM BROMIDE 62.5MCG/BLISTER 7 PUFFS/INHALER INH SCH (07:50)
[2020-04-25] MEDS: PANTOprazole 40 MG TAB PO SCH ×2 (07:50→20:03)
[2020-04-25] MEDS: HYDROXYUREA 500 MG CAP PO SCH (07:50)
[2020-04-25] MEDS: FLUTICASONE/VILANTEROL 100/25MCG 14 PUFFS/INHALER INH SCH (07:50)
[2020-04-25] MEDS: cefTRIAXone SODIUM 1,000 MG in DEXTROSE 5% 50 ML IV SCH (10:08)
[2020-04-25] MEDS: VANCOMYCIN HCL 1,000 MG in SODIUM CHLORIDE 0.9% 250 ML IV SCH (13:29)
--- NOTE | 2020-04-25 13:52 | Hospitalist Progress Note ---
Date of Service April 25, 2020 Assessment & Plan (1) Acute blood loss anemia: Presented with symptomatic anemia Blood loss seems to be due to ongoing chronic GI bleed Complicated by myelodysplastic syndrome Received 2 units of PRBC since admission Hemoglobin went up to 9.9 as of this morning of 04/23/2020 Symptomatically better but remains generally weak Repeat hemoglobin went up to 10.3 as of 04/24/2020 Generalized weakness Multifactorial. Systemic disease including MDS, anemia, infection We will get PT and OT evaluation Has been improving Chronic diarrhea Has been under care of GI as an outpatient No evidence of C. difficile colitis Discussed with customer success intern Will give Imodium and dry 1 dose of octreotide Diarrhea seems to be improving (2) MDS/MPN (myelodysplastic/myeloproliferative neoplasms): Has been under care of claims specialist/oncologist Has significant thrombocytosis Has been on hydroxyurea for thrombocytosis We will monitor platelets-platelets have been improving (3) UTI (urinary tract infection): Noted to have gram-negative bacilli UTI Has been on intravenous ceftriaxone Culture grew E. coli and Klebsiella pneumoniae which are pansensitive We will continue with ceftriaxone for now Likely change to oral Keflex on discharge (4) Gram-positive bacteremia: Noted to have gram-positive cocci in clusters in blood Does not have a definitive source known yet Has been getting intravenous vancomycin Has murmur We will get echo to rule out vegetations-TTE did not show any vegetation The bacteremia has been identified as coagulase-negative staph not lugdunensis; no sensitivities reported Likely contaminant We will repeat blood culture and if negative will continue with treatment for UTI only (5) GIB (gastrointestinal bleeding): Not having any black tarry stool Having diarrhea recently without any C. difficile infection Appreciate GI input and recommendation Has been getting Protonix drip and will be changed to oral Protonix after 48 hours No plan for endoscopy Monitor H&H-much improved (6) Acute kidney injury superimposed on chronic kidney disease: Has history of chronic kidney disease stage III Noted to have increasing BUN and creatinine likely secondary to dehydration following diarrhea Has significant electrolyte abnormalities We will give cautious amount of intravenous fluid and monitor PRP and electrolytes (7) COPD (chronic obstructive pulmonary disease): Has been on 2 L oxygen at home continuously Saturating well on 2 L oxygen while in the hospital No acute symptoms of COPD (8) Thrombocytosis: As above (9) Pulmonary emboli: History of DVT and pulmonary embolism Not on any anticoagulation due to GI bleed and anemia History of subcapsular hemorrhage the spleen No acute pain Mildly elevated troponin Seems to be chronic and is complicated by DEISY No evidence of chest pain and no EKG changes History of breast cancer No acute symptoms (10) Hyperchloremic metabolic acidosis: Likely secondary to diarrhea We will advise increase oral intake Avoid giving any more intravenous fluid especially normal saline Creatinine has been improving Remains acidotic We will check PRP tomorrow Admission and Anticipated Discharge Date Admission Date: April 22, 2020 Subjective 04/23/2020 The patient was seen and examined in ICU He was admitted with generalized weakness and possible GI bleed with history of MDS Has been feeling a little bit better today but remains generally weak Complains to have headache but denies any abdominal pain, nausea and or vomiting Has diarrhea but C. difficile has been negative 04/24/2020 The patient was seen and examined in telemetry unit She remains very weak and lethargic Denies any acute distress Her diarrhea continues 04/25/2020 Patient was seen and examined in telemetry unit She has been feeling much better though remains generally weak and lethargic No fever and/or chills Diarrhea seems to be improving Review of Systems Review of Systems: All systems reviewed and are unremarkable except as noted below Constitutional: + weakness Gastrointestinal: + blood in stools (No black stool but the stool is tested positive for blood); no abdominal pain and no diarrhea/loose stools Physical Exam Physical Exam: Lying in bed comfortably but extremely weak Constitutional: + ill appearing and + thin; no acute distress Eyes: PERRL, conjunctivae normal, anicteric sclerae ENMT: external ear and nose normal, oropharynx normal Neck: trachea midline, no thyromegaly Respiratory: normal respiratory effort; no respiratory distress Auscultation: lungs clear to auscultation bilaterally Cardiovascular: Rate/Rhythm: regular rate and regular rhythm Heart Sounds: + murmur (2/6 ESM over precordium) Gastrointestinal (Abdomen): Inspection/Auscultation: abdomen normal to inspection and normal bowel sounds; abdomen not distended Percussion/Palpation: abdomen soft; abdomen nontender Musculoskeletal: No acute arthritis involving any joints Neurologic: moves all extremities; no focal motor deficits Generally weak and lethargic but remains alert, awake and oriented x3 Lymphatic: no cervical or axillary lymphadenopathy Results & Data Results & Data ([facility]) Vital Signs (Past 12 Hours) Vital Signs Temp Pulse Resp BP Pulse Ox 04/25/20 11:33 36.7 C 81 16 129/71 93 04/25/20 07:44 36.5 C 68 16 148/82 H 95 04/25/20 03:40 36.7 C 86 18 150/93 H 93 Laboratory Results Short CBC 04/25/20 Range/Units 06:06 WBC 6.65 (4.8-10.8) K/uL Hgb 10.5 L (12.0-16.0) g/dL Hct 33.1 L (37-47) % Plt Count 489 H (130-400) K/uL BMP 04/25/20 06:06 Creatinine 0.93 Medications Administered Current Inpatient Medications Acetaminophen (Acetaminophen 325 Mg Tab) 650 mg PO Q4H PRN PRN Reason: Pain or Fever Stop: 05/23/20 00:11 Last Admin: 04/23/20 21:40 Dose: 650 mg Documented by: Hydrocodone Bitart/Acetaminophen (Hydrocodone/Acetaminophen 10/325 Tab) 1 tab PO BID PRN PRN Reason: Pain Stop: 05/07/20 00:11 Last Admin: 04/25/20 07:49 Dose: 1 tab Documented by: Albuterol (Albuterol 0.083% Nebu Soln 3 Ml Vial) 2.5 mg INH Q4H PRN PRN Reason: Wheezing Stop: 05/23/20 00:11 Albuterol (Albuterol Hfa 8 Gm Inhaler) 2 puffs INH QID PRN PRN Reason: Shortness Of Breath Or Wheezing Stop: 05/23/20 00:11 Amitriptyline HCl (Amitriptyline Hcl 25 Mg Tab) 75 mg PO HS SHORTY Stop: 05/23/20 20:59 Last Admin: 04/24/20 19:30 Dose: 75 mg Documented by: Fluticasone/Vilanterol (Fluticasone/Vilanterol 100/25mcg 14 Puffs/Inhaler) 1 puffs INH DAILY SHORTY Stop: 05/23/20 08:59 Last Admin: 04/25/20 07:50 Dose: 1 puffs Documented by: Hydroxyurea (Hydroxyurea 500 Mg Cap) 500 mg PO DAILY SHORTY Stop: 05/23/20 08:59 Last Admin: 04/25/20 07:50 Dose: 500 mg Documented by: Ceftriaxone Sodium 1,000 mg/ (Dextrose) 60 mls @ 100 mls/hr IV DAILY [facility]; Protocol Stop: 04/28/20 08:59 Last Infusion: 04/25/20 10:46 Dose: Infused Documented by: Vancomycin HCl 1,000 mg/ (Sodium Chloride) 270 mls @ 125 mls/hr IV Q24H [facility]; Protocol Stop: 05/08/20 13:59 Last Admin: 04/25/20 13:29 Dose: 125 mls/hr Documented by: Loperamide HCl (Loperamide Hcl 2 Mg Cap) 4 mg PO Q4H PRN PRN Reason: Diarrhea Stop: 05/23/20 17:49 Miscellaneous (Olopatadine~Order Awaiting Action) 1 ea N/A QS [facility] Stop: 05/23/20 07:59 Last Admin: 04/25/20 07:51 Dose: Not Given Documented by: Miscellaneous Information (Vancomycin Consult Active) 1 ea N/A UD PRN PRN Reason: Consult Stop: 05/23/20 19:37 Morphine Sulfate (Morphine Sulfate 4 Mg/Ml 1 Ml Carp\Vial) 3 mg IV Q4H PRN PRN Reason: Pain Stop: 05/07/20 00:11 Nitroglycerin (Nitroglycerin Sl 0.4 Mg/Tab Tab) 0.4 mg SL UD PRN PRN Reason: Chest Pain Stop: 05/23/20 00:11 Ondansetron HCl (Ondansetron Inj 2 Mg/Ml 2 Ml Vial) 4 mg IV Q6H PRN PRN Reason: Nausea Stop: 05/23/20 00:11 Pantoprazole Sodium (Pantoprazole 40 Mg Tab) 40 mg PO BID [facility] Stop: 05/24/20 20:59 Last Admin: 04/25/20 07:50 Dose: 40 mg Documented by: Pregabalin (Pregabalin 75 Mg Cap) 75 mg PO BID [facility] Stop: 05/23/20 08:59 Last Admin: 04/25/20 07:49 Dose: 75 mg Documented by: Risedronate (Risedronate Sodium 35 Mg Tab) 35 mg PO Abrams@0630 [facility] Stop: 05/26/20 06:29 Rizatriptan Benzoate (Rizatriptan Benzoate 10 Mg Tab) 10 mg PO .DAILY/UD PRN PRN Reason: Headache Stop: 05/23/20 00:11 Temazepam (Temazepam 15 Mg Capsule) 30 mg PO HS PRN PRN Reason: Sleep Stop: 05/23/20 00:11 Last Admin: 04/23/20 21:08 Dose: 30 mg Documented by: Trazodone HCl (Trazodone Hcl 50 Mg Tab) 50 mg PO HS SHORTY Stop: 05/23/20 20:59 Last Admin: 04/24/20 19:35 Dose: 50 mg Documented by: Umeclidinium Butler (Umeclidinium [place] 62.5mcg/Blister 7 Puffs/Inhaler) 1 puffs INH QAM SHORTY Stop: 05/23/20 08:59 Last Admin: 04/25/20 07:50 Dose: 1 puffs Documented by: (1) GIB (gastrointestinal bleeding) GI bleed type/associated pathology: melena Qualified Code(s): K92.1 - Melena (2) COPD (chronic obstructive pulmonary disease) COPD type: unspecified COPD Qualified Code(s): J44.9 - Chronic obstructive pulmonary disease, unspecified
[2020-04-25] MEDS: ACETAMINOPHEN 325 MG TAB PO PRN (15:54)
[2020-04-25] MEDS: AMITRIPTYLINE HCL 25 MG TAB PO SCH (20:04)
[2020-04-25] MEDS: TRAZODONE HCL 50 MG TAB PO SCH (20:08)
[2020-04-25] MEDS: TEMAZEPAM 15 MG CAPSULE PO PRN (20:12)
[2020-04-26] MEDS: OLOPATADINE~ORDER AWAITING ACTION SCH ×3 (00:47→15:04)
[2020-04-26] MEDS: MoRPHine SULFATE 4 MG/ML 1 ML CARP\\VIAL IV PRN (04:16)
[2020-04-26] MEDS ORDERED: RISEDRONATE SODIUM 35 MG TAB PO SCH (06:30)
[2020-04-26 06:35] LABS: Basophils # (auto) 0.05 K/uL (0-0.2); Basophils % (auto) 0.5 %; Eosinophils # (auto) 0.16 K/uL (0-0.5); Eosinophils % (auto) 1.7 %; Hemoglobin 10.6 g/dL (12.0-16.0); Immature Granulocytes # (auto) 0.12 K/uL (0.00-0.02); Immature Granulocytes % (auto) 1.3 %; Lymphocytes # (auto) 1.48 K/uL (1.2-3.4); Lymphocytes % (auto) 15.9 %; Mean Corpuscular Hgb Conc 31.2 g/dL (32-36); Mean Corpuscular Volume 99.4 fL (80-100); Mean Platelet Volume 11.7 fL (7.4-10.4); Monocytes # (auto) 1.04 K/uL (0.11-0.59); Monocytes % (auto) 11.2 %; Neutrophils # (auto) 6.47 K/uL (1.4-6.5); Neutrophils % (auto) 69.4 %; Platelet Count 427 K/uL (130-400); RDW Coefficient of Variation 24.9 % (11.5-14.5); RDW Standard Deviation 84.5 fL (36.4-46.3); Red Blood Count 3.42 M/uL (4.2-5.4); White Blood Count 9.32 K/uL (4.8-10.8)
[2020-04-26 06:55] LABS: Anisocytosis Present; Poikilocytosis Present
[2020-04-26 07:20] LABS: BUN Creatinine Ratio 19.2 (10-20); Creatinine Clr Calc Pharmacy 40.6 ml/min; Est GFR (African American) 72.5; Est GFR (Non-African American) 62.5; Magnesium 1.5 mg/dl (1.8-2.4); Phosphorus 2.6 mg/dl (2.5-4.9); Potassium 3.7 mmol/L (3.5-5.1)
[2020-04-26] MEDS: HYDROCODONE/ACETAMINOPHEN 10/325 TAB PO PRN ×2 (07:43→17:50)
[2020-04-26] MEDS: UMECLIDINIUM BROMIDE 62.5MCG/BLISTER 7 PUFFS/INHALER INH SCH (07:44)
[2020-04-26] MEDS: HYDROXYUREA 500 MG CAP PO SCH (07:44)
[2020-04-26] MEDS: PREGABALIN 75 MG CAP PO SCH ×2 (07:44→20:15)
[2020-04-26] MEDS: FLUTICASONE/VILANTEROL 100/25MCG 14 PUFFS/INHALER INH SCH (07:44)
[2020-04-26] MEDS: PANTOprazole 40 MG TAB PO SCH ×2 (07:44→20:15)
[2020-04-26] MEDS ORDERED: MAGNESIUM SULFATE / D5W 1 GM/100 ML BAG IV ONE (08:30)
[2020-04-26] MEDS: cefTRIAXone SODIUM 1,000 MG in DEXTROSE 5% 50 ML IV SCH (08:37)
--- NOTE | 2020-04-26 12:32 | Hospitalist Progress Note ---
Date of Service April 26, 2020 Assessment & Plan (1) Acute blood loss anemia: Presented with symptomatic anemia Blood loss seems to be due to ongoing chronic GI bleed Complicated by myelodysplastic syndrome Received 2 units of PRBC since admission Hemoglobin went up to 9.9 as of this morning of 04/23/2020 Symptomatically better but remains generally weak Repeat hemoglobin went up to 10.3 as of 04/24/2020 Hemoglobin remains stable and does not have any more blood in the stool Generalized weakness Multifactorial. Systemic disease including MDS, anemia, infection We will get PT and OT evaluation Has been improving with PT and OT Chronic diarrhea Has been under care of GI as an outpatient No evidence of C. difficile colitis Discussed with glass sander Will give Imodium and dry 1 dose of octreotide Diarrhea seems to be improving (2) MDS/MPN (myelodysplastic/myeloproliferative neoplasms): Has been under care of press machine operator/oncologist Has significant thrombocytosis Has been on hydroxyurea for thrombocytosis We will monitor platelets-platelets have been improving Platelet has come down to 427 (3) UTI (urinary tract infection): Noted to have gram-negative bacilli UTI Has been on intravenous ceftriaxone Culture grew E. coli and Klebsiella pneumoniae which are pansensitive We will continue with ceftriaxone for now Likely change to oral Keflex on discharge (4) Gram-positive bacteremia: Noted to have gram-positive cocci in clusters in blood Does not have a definitive source known yet Has been getting intravenous vancomycin Has murmur We will get echo to rule out vegetations-TTE did not show any vegetation The bacteremia has been identified as coagulase-negative staph not lugdunensis; no sensitivities reported Likely contaminant-repeat blood culture is pending We will repeat blood culture and if negative will continue with treatment for UTI only (5) GIB (gastrointestinal bleeding): Not having any black tarry stool Having diarrhea recently without any C. difficile infection Appreciate GI input and recommendation Has been getting Protonix drip and will be changed to oral Protonix after 48 hours No plan for endoscopy Monitor H&H-much improved (6) Acute kidney injury superimposed on chronic kidney disease: Has history of chronic kidney disease stage III Noted to have increasing BUN and creatinine likely secondary to dehydration following diarrhea Has significant electrolyte abnormalities We will give cautious amount of intravenous fluid and monitor PRP and electrolytes Creatinine has been normalized (7) COPD (chronic obstructive pulmonary disease): Has been on 2 L oxygen at home continuously Saturating well on 2 L oxygen while in the hospital No acute symptoms of COPD (8) Thrombocytosis: As above (9) Pulmonary emboli: History of DVT and pulmonary embolism Not on any anticoagulation due to GI bleed and anemia History of subcapsular hemorrhage the spleen No acute pain Mildly elevated troponin Seems to be chronic and is complicated by DEISY No evidence of chest pain and no EKG changes History of breast cancer No acute symptoms (10) Hyperchloremic metabolic acidosis: Likely secondary to diarrhea We will advise increase oral intake Avoid giving any more intravenous fluid especially normal saline Creatinine has been improving Overall improvement of metabolic acidosis Admission and Anticipated Discharge Date Admission Date: April 22, 2020 Subjective 04/23/2020 The patient was seen and examined in ICU He was admitted with generalized weakness and possible GI bleed with history of MDS Has been feeling a little bit better today but remains generally weak Complains to have headache but denies any abdominal pain, nausea and or vomiting Has diarrhea but C. difficile has been negative 04/24/2020 The patient was seen and examined in telemetry unit She remains very weak and lethargic Denies any acute distress Her diarrhea continues 04/25/2020 Patient was seen and examined in telemetry unit She has been feeling much better though remains generally weak and lethargic No fever and/or chills Diarrhea seems to be improving 04/26/2020 The patient was seen and examined in telemetry unit She has been feeling a lot better today Only complaints remains to be weak but that has been improving too No fever and/or chills Review of Systems Review of Systems: All systems reviewed and are unremarkable except as noted below Constitutional: + weakness Gastrointestinal: no abdominal pain, no diarrhea/loose stools and no blood in stools (No black stool but the stool is tested positive for blood) Physical Exam Physical Exam: Lying in bed comfortably but extremely weak Constitutional: + ill appearing and + thin; no acute distress Eyes: PERRL, conjunctivae normal, anicteric sclerae ENMT: external ear and nose normal, oropharynx normal Neck: trachea midline, no thyromegaly Respiratory: normal respiratory effort; no respiratory distress Auscultation: lungs clear to auscultation bilaterally Cardiovascular: Rate/Rhythm: regular rate and regular rhythm Heart Sounds: + murmur (2/6 ESM over precordium) Gastrointestinal (Abdomen): Inspection/Auscultation: abdomen normal to inspection and normal bowel sounds; abdomen not distended Percussion/Palpation: abdomen soft; abdomen nontender Musculoskeletal: No acute arthritis involving any joints Neurologic: moves all extremities; no focal motor deficits Lymphatic: no cervical or axillary lymphadenopathy Results & Data Results & Data ([facility]) Vital Signs (Past 12 Hours) Vital Signs Temp Pulse Resp BP BP Pulse Ox 04/26/20 11:58 36.4 C L 78 18 124/67 90 04/26/20 07:42 36.6 C 86 19 133/73 91 04/26/20 04:00 36.8 C 92 H 16 163/80 H 92 Laboratory Results Short CBC 04/26/20 Range/Units 06:15 WBC 9.32 (4.8-10.8) K/uL Hgb 10.6 L (12.0-16.0) g/dL Hct 34.0 L (37-47) % Plt Count 427 H (130-400) K/uL BMP 04/26/20 06:15 Sodium 144 Potassium 3.7 Chloride 118 H Carbon Dioxide 20 L BUN 17 Creatinine 0.89 Glucose 90 Calcium 8.0 L Medications Administered Current Inpatient Medications Acetaminophen (Acetaminophen 325 Mg Tab) 650 mg PO Q4H PRN PRN Reason: Pain or Fever Stop: 05/23/20 00:11 Last Admin: 04/25/20 15:54 Dose: 650 mg Documented by: Hydrocodone Bitart/Acetaminophen (Hydrocodone/Acetaminophen 10/325 Tab) 1 tab PO BID PRN PRN Reason: Pain Stop: 05/07/20 00:11 Last Admin: 04/26/20 07:43 Dose: 1 tab Documented by: Albuterol (Albuterol 0.083% Nebu Soln 3 Ml Vial) 2.5 mg INH Q4H PRN PRN Reason: Wheezing Stop: 05/23/20 00:11 Albuterol (Albuterol Hfa 8 Gm Inhaler) 2 puffs INH QID PRN PRN Reason: Shortness Of Breath Or Wheezing Stop: 05/23/20 00:11 Amitriptyline HCl (Amitriptyline Hcl 25 Mg Tab) 75 mg PO HS SHORTY Stop: 05/23/20 20:59 Last Admin: 04/25/20 20:04 Dose: 75 mg Documented by: Fluticasone/Vilanterol (Fluticasone/Vilanterol 100/25mcg 14 Puffs/Inhaler) 1 puffs INH DAILY [facility] Stop: 05/23/20 08:59 Last Admin: 04/26/20 07:44 Dose: 1 puffs Documented by: Hydroxyurea (Hydroxyurea 500 Mg Cap) 500 mg PO DAILY [facility] Stop: 05/23/20 08:59 Last Admin: 04/26/20 07:44 Dose: 500 mg Documented by: Ceftriaxone Sodium 1,000 mg/ (Dextrose) 60 mls @ 100 mls/hr IV DAILY [facility]; Protocol Stop: 04/28/20 08:59 Last Infusion: 04/26/20 09:22 Dose: Infused Documented by: Vancomycin HCl 1,000 mg/ (Sodium Chloride) 270 mls @ 125 mls/hr IV Q24H [facility]; Protocol Stop: 05/08/20 13:59 Last Infusion: 04/25/20 15:26 Dose: Infused Documented by: Loperamide HCl (Loperamide Hcl 2 Mg Cap) 4 mg PO Q4H PRN PRN Reason: Diarrhea Stop: 05/23/20 17:49 Miscellaneous (Olopatadine~Order Awaiting Action) 1 ea N/A QS [facility] Stop: 05/23/20 07:59 Last Admin: 04/26/20 07:14 Dose: Not Given Documented by: Miscellaneous Information (Vancomycin Consult Active) 1 ea N/A UD PRN PRN Reason: Consult Stop: 05/23/20 19:37 Morphine Sulfate (Morphine Sulfate 4 Mg/Ml 1 Ml Carp\Vial) 3 mg IV Q4H PRN PRN Reason: Pain Stop: 05/07/20 00:11 Last Admin: 04/26/20 04:16 Dose: 3 mg Documented by: Nitroglycerin (Nitroglycerin Sl 0.4 Mg/Tab Tab) 0.4 mg SL UD PRN PRN Reason: Chest Pain Stop: 05/23/20 00:11 Ondansetron HCl (Ondansetron Inj 2 Mg/Ml 2 Ml Vial) 4 mg IV Q6H PRN PRN Reason: Nausea Stop: 05/23/20 00:11 Pantoprazole Sodium (Pantoprazole 40 Mg Tab) 40 mg PO BID [facility] Stop: 05/24/20 20:59 Last Admin: 04/26/20 07:44 Dose: 40 mg Documented by: Pregabalin (Pregabalin 75 Mg Cap) 75 mg PO BID [facility] Stop: 05/23/20 08:59 Last Admin: 04/26/20 07:44 Dose: 75 mg Documented by: Risedronate (Risedronate Sodium 35 Mg Tab) 35 mg PO Abrams@0630 [facility] Stop: 05/26/20 06:29 Last Admin: 04/26/20 06:11 Dose: 35 mg Documented by: Rizatriptan Benzoate (Rizatriptan Benzoate 10 Mg Tab) 10 mg PO .DAILY/UD PRN PRN Reason: Headache Stop: 05/23/20 00:11 Temazepam (Temazepam 15 Mg Capsule) 30 mg PO HS PRN PRN Reason: Sleep Stop: 05/23/20 00:11 Last Admin: 04/25/20 20:12 Dose: 30 mg Documented by: Trazodone HCl (Trazodone Hcl 50 Mg Tab) 50 mg PO HS SHORTY Stop: 05/23/20 20:59 Last Admin: 04/25/20 20:08 Dose: 50 mg Documented by: Umeclidinium [place]ward (Umeclidinium [place] 62.5mcg/Blister 7 Puffs/Inhaler) 1 puffs INH QAM [facility] Stop: 05/23/20 08:59 Last Admin: 04/26/20 07:44 Dose: 1 puffs Documented by: (1) GIB (gastrointestinal bleeding) GI bleed type/associated pathology: melena Qualified Code(s): K92.1 - Melena (2) COPD (chronic obstructive pulmonary disease) COPD type: unspecified COPD Qualified Code(s): J44.9 - Chronic obstructive pulmonary disease, unspecified
[2020-04-26] MEDS ORDERED: VANCOMYCIN TROUGH ONE (13:30)
--- NOTE | 2020-04-26 14:50 | Pharmacy Report ---
Pharmacy Abx Dose Short Note - Date of Service April 26, 2020 - Assessment & Plan Assessment 79 year old F receiving VANCOMYCIN + ROCEPHIN for treatment of BACTEREMIA/UTI. Day # 3 of antimicrobial therapy. Plan Vancomycin * Trough level of 16.8mcg/mL is therapeutic. * Continue dose of 100 mg IV every 24 hours. * Goal trough level for BACTEREMIA : 15 to 20 mcg/mL * Will recheck a trough level in a few days or with any changes in renal function. Pharmacy will continue to follow and will adjust dose/frequency as necessary. Thank you.
[2020-04-26] MEDS: VANCOMYCIN HCL 1,000 MG in SODIUM CHLORIDE 0.9% 250 ML IV SCH (15:01)
[2020-04-26] MEDS: ACETAMINOPHEN 325 MG TAB PO PRN (15:03)
[2020-04-26] MEDS: TRAZODONE HCL 50 MG TAB PO SCH (20:15)
[2020-04-26] MEDS: AMITRIPTYLINE HCL 25 MG TAB PO SCH (20:16)
[2020-04-27] MEDS: OLOPATADINE~ORDER AWAITING ACTION SCH ×4 (01:11→23:40)
[2020-04-27] MEDS: HYDROCODONE/ACETAMINOPHEN 10/325 TAB PO PRN ×3 (05:39→18:33)
[2020-04-27 07:19] LABS: Basophils # (auto) 0.07 K/uL (0-0.2); Basophils % (auto) 0.5 %; Eosinophils # (auto) 0.14 K/uL (0-0.5); Hematocrit (blood only) 34.3 % (37-47); Hemoglobin 11.2 g/dL (12.0-16.0); Immature Granulocytes # (auto) 0.14 K/uL (0.00-0.02); Lymphocytes # (auto) 1.89 K/uL (1.2-3.4); Lymphocytes % (auto) 13.3 %; Mean Corpuscular Hemoglobin 31.1 pg (25-34); Mean Corpuscular Hgb Conc 32.7 g/dL (32-36); Mean Corpuscular Volume 95.3 fL (80-100); Mean Platelet Volume 12.3 fL (7.4-10.4); Monocytes # (auto) 1.65 K/uL (0.11-0.59); Monocytes % (auto) 11.6 %; Neutrophils # (auto) 10.36 K/uL (1.4-6.5); Neutrophils % (auto) 72.6 %; Platelet Count 492 K/uL (130-400); RDW Coefficient of Variation 25.2 % (11.5-14.5); RDW Standard Deviation 82.7 fL (36.4-46.3); White Blood Count 14.25 K/uL (4.8-10.8)
[2020-04-27 07:47] LABS: Anisocytosis Present; Ovalocytes 1+
[2020-04-27 07:50] LABS: BUN Creatinine Ratio 15.7 (10-20); Calcium 8.5 mg/dl (8.5-10.1); Creatinine Clr Calc Pharmacy 38.7 ml/min; Est GFR (African American) 73.5; Est GFR (Non-African American) 63.4; Magnesium 1.9 mg/dl (1.8-2.4); Phosphorus 2.8 mg/dl (2.5-4.9); Potassium 3.8 mmol/L (3.5-5.1)
[2020-04-27] MEDS: PREGABALIN 75 MG CAP PO SCH ×2 (08:46→20:32)
[2020-04-27] MEDS: PANTOprazole 40 MG TAB PO SCH ×2 (08:46→20:31)
[2020-04-27] MEDS: UMECLIDINIUM BROMIDE 62.5MCG/BLISTER 7 PUFFS/INHALER INH SCH (08:47)
[2020-04-27] MEDS: HYDROXYUREA 500 MG CAP PO SCH (08:47)
[2020-04-27] MEDS: FLUTICASONE/VILANTEROL 100/25MCG 14 PUFFS/INHALER INH SCH (08:47)
--- NOTE | 2020-04-27 10:15 | Electrocardiogram Report ---
Test Reason : Blood Pressure : / mmHG Vent. Rate : 101 BPM Atrial Rate : 101 BPM P-R Int : 136 ms QRS Dur : 086 ms QT Int : 404 ms P-R-T Axes : 081 080 096 degrees QTc Int : 523 ms Sinus tachycardia with Premature atrial complexes Incomplete right bundle branch block T-wave inversion in Anterior leads , consider ischemia T-wave inversion in Inferior leads , consider ischemia Prolonged QT Abnormal ECG When compared with ECG of 22-APR-2020 18:48, T wave inversions more pronounced Confirmed by Caleb Lomeli ([id number]) on 04/27/2020 10:15:00 AM Referred By: Valerie Chavez Confirmed By:Caleb Lomeli
--- NOTE | 2020-04-27 11:31 | Hospitalist Progress Note ---
Date of Service April 27, 2020 Assessment & Plan (1) Acute blood loss anemia: Presented with symptomatic anemia Blood loss seems to be due to ongoing chronic GI bleed Complicated by myelodysplastic syndrome Received 2 units of PRBC since admission Hemoglobin went up to 9.9 as of this morning of 04/23/2020 Symptomatically better but remains generally weak Repeat hemoglobin went up to 10.3 as of 04/24/2020 Hemoglobin remains stable and does not have any more blood in the stool Hemoglobin remains stable Generalized weakness Multifactorial. Systemic disease including MDS, anemia, infection We will get PT and OT evaluation Has been improving with PT and OT Improving with PT and OT and recommended to go home with home health Chronic diarrhea Has been under care of GI as an outpatient No evidence of C. difficile colitis Discussed with ticket printer and tagger Will give Imodium and dry 1 dose of octreotide Diarrhea seems to be improving Leukocytosis Noted to have increasing white count today No evidence of infection We will get repeat C. difficile Monitor CBC (2) MDS/MPN (myelodysplastic/myeloproliferative neoplasms): Has been under care of concrete journeyman/oncologist Has significant thrombocytosis Has been on hydroxyurea for thrombocytosis We will monitor platelets-platelets have been improving Platelet has come down to 427 (3) UTI (urinary tract infection): Noted to have gram-negative bacilli UTI Has been on intravenous ceftriaxone Culture grew E. coli and Klebsiella pneumoniae which are pansensitive We will continue with ceftriaxone for now Ceftriaxone are changed to oral Cipro to continue for a total of 10 days (4) Gram-positive bacteremia: Noted to have gram-positive cocci in clusters in blood Does not have a definitive source known yet Has been getting intravenous vancomycin Has murmur We will get echo to rule out vegetations-TTE did not show any vegetation The bacteremia has been identified as coagulase-negative staph not lugdunensis; no sensitivities reported Likely contaminant-repeat blood culture is pending We will repeat blood culture and if negative will continue with treatment for UTI only (5) GIB (gastrointestinal bleeding): Not having any black tarry stool Having diarrhea recently without any C. difficile infection Appreciate GI input and recommendation Has been getting Protonix drip and will be changed to oral Protonix after 48 hours No plan for endoscopy Monitor H&H-much improved (6) Acute kidney injury superimposed on chronic kidney disease: Has history of chronic kidney disease stage III Noted to have increasing BUN and creatinine likely secondary to dehydration following diarrhea Has significant electrolyte abnormalities We will give cautious amount of intravenous fluid and monitor PRP and electrolytes Creatinine has been normalized (7) COPD (chronic obstructive pulmonary disease): Has been on 2 L oxygen at home continuously Saturating well on 2 L oxygen while in the hospital No acute symptoms of COPD (8) Thrombocytosis: As above (9) Pulmonary emboli: History of DVT and pulmonary embolism Not on any anticoagulation due to GI bleed and anemia History of subcapsular hemorrhage the spleen No acute pain Mildly elevated troponin Seems to be chronic and is complicated by DEISY No evidence of chest pain and no EKG changes History of breast cancer No acute symptoms (10) Hyperchloremic metabolic acidosis: Likely secondary to diarrhea We will advise increase oral intake Avoid giving any more intravenous fluid especially normal saline Creatinine has been improving Overall improvement of metabolic acidosis No more metabolic acidosis Admission and Anticipated Discharge Date Admission Date: April 22, 2020 Subjective 04/23/2020 The patient was seen and examined in ICU He was admitted with generalized weakness and possible GI bleed with history of MDS Has been feeling a little bit better today but remains generally weak Complains to have headache but denies any abdominal pain, nausea and or vomiting Has diarrhea but C. difficile has been negative 04/24/2020 The patient was seen and examined in telemetry unit She remains very weak and lethargic Denies any acute distress Her diarrhea continues 04/25/2020 Patient was seen and examined in telemetry unit She has been feeling much better though remains generally weak and lethargic No fever and/or chills Diarrhea seems to be improving 04/26/2020 The patient was seen and examined in telemetry unit She has been feeling a lot better today Only complaints remains to be weak but that has been improving too No fever and/or chills 04/27/2020 The patient was seen and examined in telemetry unit She complains to have left lower quadrant pain which seems to be chronic Remains generally weak but much better Review of Systems Review of Systems: All systems reviewed and are unremarkable except as noted below Constitutional: + weakness Physical Exam Physical Exam: Sitting on a chair without any apparent distress Constitutional: + ill appearing and + thin; no acute distress Eyes: PERRL, conjunctivae normal, anicteric sclerae ENMT: external ear and nose normal, oropharynx normal Neck: trachea midline, no thyromegaly Respiratory: normal respiratory effort; no respiratory distress Auscultation: lungs clear to auscultation bilaterally Cardiovascular: Rate/Rhythm: regular rate and regular rhythm Heart Sounds: + murmur (2/6 ESM over precordium) Gastrointestinal (Abdomen): Inspection/Auscultation: abdomen normal to inspection and normal bowel sounds; abdomen not distended Percussion/Palpation: abdomen soft; abdomen nontender Neurologic: moves all extremities; no focal motor deficits Lymphatic: no cervical or axillary lymphadenopathy Results & Data Results & Data ([facility]) Vital Signs (Past 12 Hours) Vital Signs Temp Pulse Resp BP Pulse Ox Pulse Ox 04/27/20 11:21 36.5 C 108 H 18 97/69 L 94 04/27/20 11:04 93 04/27/20 08:01 36.6 C 102 H 18 144/80 H 92 04/27/20 04:00 36.8 C 103 H 18 127/81 90 04/27/20 00:00 36.9 C 94 H 18 130/80 92 Laboratory Results Short CBC 04/27/20 Range/Units 06:54 WBC 14.25 H (4.8-10.8) K/uL Hgb 11.2 L (12.0-16.0) g/dL Hct 34.3 L (37-47) % Plt Count 492 H (130-400) K/uL BMP 04/27/20 06:54 Sodium 141 Potassium 3.8 Chloride 112 H Carbon Dioxide 21 BUN 14 Creatinine 0.88 Glucose 102 H Calcium 8.5 Medications Administered Current Inpatient Medications Acetaminophen (Acetaminophen 325 Mg Tab) 650 mg PO Q4H PRN PRN Reason: Pain or Fever Stop: 05/23/20 00:11 Last Admin: 04/26/20 15:03 Dose: 650 mg Documented by: Hydrocodone Bitart/Acetaminophen (Hydrocodone/Acetaminophen 10/325 Tab) 1 tab PO TID PRN PRN Reason: Pain Stop: 05/07/20 00:11 Last Admin: 04/27/20 08:46 Dose: 1 tab Documented by: Albuterol (Albuterol 0.083% Nebu Soln 3 Ml Vial) 2.5 mg INH Q4H PRN PRN Reason: Wheezing Stop: 05/23/20 00:11 Albuterol (Albuterol Hfa 8 Gm Inhaler) 2 puffs INH QID PRN PRN Reason: Shortness Of Breath Or Wheezing Stop: 05/23/20 00:11 Amitriptyline HCl (Amitriptyline Hcl 25 Mg Tab) 75 mg PO HS [facility] Stop: 05/23/20 20:59 Last Admin: 04/26/20 20:16 Dose: 75 mg Documented by: Fluticasone/Vilanterol (Fluticasone/Vilanterol 100/25mcg 14 Puffs/Inhaler) 1 puffs INH DAILY [facility] Stop: 05/23/20 08:59 Last Admin: 04/27/20 08:47 Dose: 1 puffs Documented by: Hydroxyurea (Hydroxyurea 500 Mg Cap) 500 mg PO DAILY [facility] Stop: 05/23/20 08:59 Last Admin: 04/27/20 08:47 Dose: 500 mg Documented by: Levofloxacin (Levofloxacin 250 Mg Tablet) 250 mg PO DAILY@1100 [facility] Stop: 05/07/20 10:59 Loperamide HCl (Loperamide Hcl 2 Mg Cap) 4 mg PO Q4H PRN PRN Reason: Diarrhea Stop: 05/23/20 17:49 Miscellaneous (Olopatadine~Order Awaiting Action) 1 ea N/A QS [facility] Stop: 05/23/20 07:59 Last Admin: 04/27/20 09:10 Dose: Not Given Documented by: Morphine Sulfate (Morphine Sulfate 4 Mg/Ml 1 Ml Carp\Vial) 3 mg IV Q4H PRN PRN Reason: Pain Stop: 05/07/20 00:11 Last Admin: 04/26/20 04:16 Dose: 3 mg Documented by: Nitroglycerin (Nitroglycerin Sl 0.4 Mg/Tab Tab) 0.4 mg SL UD PRN PRN Reason: Chest Pain Stop: 05/23/20 00:11 Pantoprazole Sodium (Pantoprazole 40 Mg Tab) 40 mg PO BID [facility] Stop: 05/24/20 20:59 Last Admin: 04/27/20 08:46 Dose: 40 mg Documented by: Pregabalin (Pregabalin 75 Mg Cap) 75 mg PO BID [facility] Stop: 05/23/20 08:59 Last Admin: 04/27/20 08:46 Dose: 75 mg Documented by: Risedronate (Risedronate Sodium 35 Mg Tab) 35 mg PO Abrams@0630 [facility] Stop: 05/26/20 06:29 Last Admin: 04/26/20 06:11 Dose: 35 mg Documented by: Rizatriptan Benzoate (Rizatriptan Benzoate 10 Mg Tab) 10 mg PO .DAILY/UD PRN PRN Reason: Headache Stop: 05/23/20 00:11 Temazepam (Temazepam 15 Mg Capsule) 30 mg PO HS PRN PRN Reason: Sleep Stop: 05/23/20 00:11 Last Admin: 04/25/20 20:12 Dose: 30 mg Documented by: Trazodone HCl (Trazodone Hcl 50 Mg Tab) 50 mg PO HS [facility] Stop: 05/23/20 20:59 Last Admin: 04/26/20 20:15 Dose: 50 mg Documented by: Umeclidinium [place] (Umeclidinium [place] 62.5mcg/Blister 7 Puffs/Inhaler) 1 puffs INH QAM [facility] Stop: 05/23/20 08:59 Last Admin: 04/27/20 08:47 Dose: 1 puffs Documented by: (1) GIB (gastrointestinal bleeding) GI bleed type/associated pathology: melena Qualified Code(s): K92.1 - Melena (2) COPD (chronic obstructive pulmonary disease) COPD type: unspecified COPD Qualified Code(s): J44.9 - Chronic obstructive pulmonary disease, unspecified
[2020-04-27] MEDS: levoFLOXacin 250 MG TABLET PO SCH (11:44)
[2020-04-27] MEDS: LACTOBACILLUS ACIDOPHILUS (FLORANEX) TAB PO SCH ×2 (14:30→15:36)
[2020-04-27] MEDS: ACETAMINOPHEN 325 MG TAB PO PRN (15:35)
[2020-04-27] MEDS: MoRPHine SULFATE 4 MG/ML 1 ML CARP\\VIAL IV PRN (19:28)
[2020-04-27] MEDS ORDERED: TRAMADOL HCL 50 MG TABLET PO STA (19:37)
[2020-04-27] MEDS: TRAZODONE HCL 50 MG TAB PO SCH (20:31)
[2020-04-27] MEDS: AMITRIPTYLINE HCL 25 MG TAB PO SCH (20:32)
[2020-04-27] MEDS: TEMAZEPAM 15 MG CAPSULE PO PRN (20:36)
[2020-04-28] MEDS: LACTOBACILLUS ACIDOPHILUS (FLORANEX) TAB PO SCH ×3 (07:33→16:25)
[2020-04-28] MEDS: HYDROCODONE/ACETAMINOPHEN 10/325 TAB PO PRN ×2 (07:34→13:38)
[2020-04-28] MEDS: OLOPATADINE~ORDER AWAITING ACTION SCH ×3 (07:34→23:15)
[2020-04-28] MEDS: HYDROXYUREA 500 MG CAP PO SCH (08:31)
[2020-04-28] MEDS: UMECLIDINIUM BROMIDE 62.5MCG/BLISTER 7 PUFFS/INHALER INH SCH (08:31)
[2020-04-28] MEDS: FLUTICASONE/VILANTEROL 100/25MCG 14 PUFFS/INHALER INH SCH (08:31)
[2020-04-28] MEDS: PANTOprazole 40 MG TAB PO SCH ×2 (08:31→20:24)
[2020-04-28] MEDS: PREGABALIN 75 MG CAP PO SCH ×2 (08:31→20:24)
[2020-04-28 08:46] LABS: Hematocrit (blood only) 34.9 % (37-47); Hemoglobin 10.7 g/dL (12.0-16.0); Mean Corpuscular Hemoglobin 30.1 pg (25-34); Mean Corpuscular Hgb Conc 30.7 g/dL (32-36); Mean Platelet Volume 12.5 fL (7.4-10.4); Nucleated RBC # (auto) 0.08 K/uL (0-0); Nucleated RBC % (auto) 0.4 %; Platelet Count 626 K/uL (130-400); RDW Coefficient of Variation 25.8 % (11.5-14.5); Red Blood Count 3.56 M/uL (4.2-5.4); White Blood Count 21.94 K/uL (4.8-10.8)
[2020-04-28 08:47] LABS: Anisocytosis Present; Basophils # (auto) 0.11 K/uL (0-0.2); Basophils % (auto) 0.5 %; Eosinophils # (auto) 0.34 K/uL (0-0.5); Eosinophils % (auto) 1.5 %; Giant Platelets 1+; Immature Granulocytes # (auto) 0.31 K/uL (0.00-0.02); Immature Granulocytes % (auto) 1.4 %; Lymphocytes # (auto) 2.32 K/uL (1.2-3.4); Lymphocytes % (auto) 10.6 %; Microcytosis Present; Monocytes # (auto) 2.72 K/uL (0.11-0.59); Monocytes % (auto) 12.4 %; Neutrophils # (auto) 16.14 K/uL (1.4-6.5); Neutrophils % (auto) 73.6 %; Ovalocytes 1+
--- NOTE | 2020-04-28 10:39 | CT Scan Report ---
CT OF THE ABDOMEN AND PELVIS WITHOUT CONTRAST CLINICAL HISTORY: Lower abdominal pain. Evaluate for diverticulitis/colitis. COMPARISON STUDY: CT of the abdomen and pelvis April 22, 2020. TECHNIQUE: Axial images of the abdomen and pelvis were obtained without IV contrast. Images were revi ewed in the axial, sagittal, and coronal planes. Automated exposure control was utilized for the monica dy. A dose lowering technique was utilized adhering to the principles of ALARA. FINDINGS: Imaged portions of the lower chest partially visualize a right breast implant. Emphysema wi thin the lower lungs is noted. Evaluation of the abdomen and pelvis is suboptimal on this unenhanced examination. No pneumatosis, free air or portal venous gas is present. Biliary ductal dilatation is u nchanged and likely related to cholecystectomy. The spleen is moderately enlarged. There are numerous hypodensities within the spleen are suboptimally assessed on this unenhanced exam but similar to pk or exam and favor evolving infarcts. A water attenuation right renal lesion favors a cyst. There is n o hydronephrosis. Unenhanced images of the adrenal glands and pancreas are unremarkable. There is no peripancreatic infiltration. There is no evidence for a bowel obstruction. Images of the pelvis are d egraded by streak artifact from a left hip arthroplasty. Periprosthetic lucency is unchanged. Subacut e fracture of the left ischium is again noted. Old T11 compression fracture is noted. There are no dickerson spicious osseous lesions. Sigmoid diverticulosis is again noted. Mild sigmoid colon wall thickening i s noted. There is mild wall thickening of the descending colon. Right colon wall thickening shown on prior exam has significantly improved. There is no abscess. The appendix is not visualized. IMPRESSION: 1. Mild wall thickening of the descending colon and sigmoid colon, improved since CT of April 22. The findings suggest a nonspecific colitis. No free air or abscess. 2. 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 3. No bowel obstruction. ACT 112: Negative or not required by law. Electronically signed by: Constantin Richter M.D. 04/28/2020 10:38 AM
--- NOTE | 2020-04-28 11:09 | XRay Report ---
XR chest 2V PA/lateral CLINICAL HISTORY: Shortness of breath. Possible pneumonia COMPARISON STUDY: 04/22/2020 FINDINGS: There are postsurgical changes of a prior mastectomy with a right breast implant. There are surgical clips project over the right axillary region. There is pulmonary emphysema. There is no carola lure. There is no focal pulmonary consolidation. There are no significant pleural effusions. There is an old lower thoracic compression deformity. There is an old left humeral neck fracture.[ IMPRESSION: Chronic findings as described above. No evidence of acute parenchymal consolidation. Pulm onary emphysema. ACT 112: Negative or not required by law. Electronically signed by: Sher Lira M.D. 04/28/2020 11:08 AM
[2020-04-28] MEDS: levoFLOXacin 250 MG TABLET PO SCH (11:29)
--- NOTE | 2020-04-28 15:44 | Hospitalist Progress Note ---
Date of Service April 28, 2020 Assessment & Plan (1) Acute blood loss anemia: Presented with symptomatic anemia Blood loss seems to be due to ongoing chronic GI bleed Complicated by myelodysplastic syndrome Received 2 units of PRBC since admission Hemoglobin went up to 9.9 as of this morning of 04/23/2020 Symptomatically better but remains generally weak Repeat hemoglobin went up to 10.3 as of 04/24/2020 Hemoglobin remains stable and does not have any more blood in the stool Hemoglobin remains stable Generalized weakness Multifactorial. Systemic disease including MDS, anemia, infection We will get PT and OT evaluation Has been improving with PT and OT Improving with PT and OT and recommended to go home with home health Chronic diarrhea Has been under care of GI as an outpatient No evidence of C. difficile colitis Discussed with car designer Will give Imodium and try 1 dose of octreotide Diarrhea seems to be improving Leukocytosis Noted to have increasing white count today 04/27/2020 No evidence of infection could be secondary to MDS We will get repeat C. difficile and stool culture White blood cell count went to 21,000 on 04/28/2020 Chest x-ray did not show any evidence of infection CT of the abdomen showed nonspecific colitis involving sigmoid colon-seems better compared with prior We will add Flagyl for possible colitis Recheck CBC tomorrow (2) MDS/MPN (myelodysplastic/myeloproliferative neoplasms): Has been under care of spring production supervisor/oncologist Has significant thrombocytosis Has been on hydroxyurea for thrombocytosis We will monitor platelets-platelets have been improving Platelet has come down to 427 (3) UTI (urinary tract infection): Noted to have gram-negative bacilli UTI Has been on intravenous ceftriaxone Culture grew E. coli and Klebsiella pneumoniae which are pansensitive We will continue with ceftriaxone for now Ceftriaxone are changed to oral Cipro to continue for a total of 10 days (4) Gram-positive bacteremia: Noted to have gram-positive cocci in clusters in blood Does not have a definitive source known yet Has been getting intravenous vancomycin Has murmur We will get echo to rule out vegetations-TTE did not show any vegetation The bacteremia has been identified as coagulase-negative staph not lugdunensis; no sensitivities reported Likely contaminant-repeat blood culture negative (5) GIB (gastrointestinal bleeding): Not having any black tarry stool Having diarrhea recently without any C. difficile infection Appreciate GI input and recommendation Has been getting Protonix drip and will be changed to oral Protonix after 48 hours No plan for endoscopy Monitor H&H-much improved (6) Acute kidney injury superimposed on chronic kidney disease: Has history of chronic kidney disease stage III Noted to have increasing BUN and creatinine likely secondary to dehydration following diarrhea Has significant electrolyte abnormalities We will give cautious amount of intravenous fluid and monitor PRP and electrolytes Creatinine has been normalized (7) COPD (chronic obstructive pulmonary disease): Has been on 2 L oxygen at home continuously Saturating well on 2 L oxygen while in the hospital No acute symptoms of COPD (8) Thrombocytosis: As above (9) Pulmonary emboli: History of DVT and pulmonary embolism Not on any anticoagulation due to GI bleed and anemia History of subcapsular hemorrhage the spleen No acute pain Mildly elevated troponin Seems to be chronic and is complicated by DEISY No evidence of chest pain and no EKG changes History of breast cancer No acute symptoms (10) Hyperchloremic metabolic acidosis: Likely secondary to diarrhea We will advise increase oral intake Avoid giving any more intravenous fluid especially normal saline Creatinine has been improving Overall improvement of metabolic acidosis No more metabolic acidosis Admission and Anticipated Discharge Date Admission Date: April 22, 2020 Subjective 04/23/2020 The patient was seen and examined in ICU He was admitted with generalized weakness and possible GI bleed with history of MDS Has been feeling a little bit better today but remains generally weak Complains to have headache but denies any abdominal pain, nausea and or vomiting Has diarrhea but C. difficile has been negative 04/24/2020 The patient was seen and examined in telemetry unit She remains very weak and lethargic Denies any acute distress Her diarrhea continues 04/25/2020 Patient was seen and examined in telemetry unit She has been feeling much better though remains generally weak and lethargic No fever and/or chills Diarrhea seems to be improving 04/26/2020 The patient was seen and examined in telemetry unit She has been feeling a lot better today Only complaints remains to be weak but that has been improving too No fever and/or chills 04/27/2020 The patient was seen and examined in telemetry unit She complains to have left lower quadrant pain which seems to be chronic Remains generally weak but much better 04/28/2020 The patient was seen and examined in medical floor She has been complaining of left lower quadrant abdominal pain without any nausea and/or vomiting Remains generally weak and lethargic Review of Systems Review of Systems: All systems reviewed and are unremarkable except as noted below Constitutional: + weakness Gastrointestinal: + abdominal pain (Left lower quadrant abdominal pain) Physical Exam Physical Exam: Sitting on a chair without minimal distress secondary to left lower quadrant abdominal pain Constitutional: + ill appearing and + thin; no acute distress Eyes: PERRL, conjunctivae normal, anicteric sclerae ENMT: external ear and nose normal, oropharynx normal Neck: trachea midline, no thyromegaly Respiratory: normal respiratory effort; no respiratory distress Auscultation: lungs clear to auscultation bilaterally Cardiovascular: Rate/Rhythm: regular rate and regular rhythm Heart Sounds: + murmur (2/6 ESM over precordium) Gastrointestinal (Abdomen): Inspection/Auscultation: abdomen normal to inspection and normal bowel sounds; abdomen not distended Percussion/Palpation: + abdomen tender (Left lower quadrant tenderness) and abdomen soft Musculoskeletal: No acute arthritis involving any joints Neurologic: moves all extremities; no focal motor deficits Lymphatic: no cervical or axillary lymphadenopathy Results & Data Results & Data ([facility]) Vital Signs (Past 12 Hours) Vital Signs Temp Pulse Resp BP Pulse Ox 04/28/20 07:29 36.7 C 110 H 16 120/69 93 Laboratory Results Short CBC 04/28/20 Range/Units 07:49 WBC 21.94 H (4.8-10.8) K/uL Hgb 10.7 L (12.0-16.0) g/dL Hct 34.9 L (37-47) % Plt Count 626 H (130-400) K/uL Medications Administered Current Inpatient Medications Acetaminophen (Acetaminophen 325 Mg Tab) 650 mg PO Q4H PRN PRN Reason: Pain or Fever Stop: 05/23/20 00:11 Last Admin: 04/27/20 15:35 Dose: 650 mg Documented by: Hydrocodone Bitart/Acetaminophen (Hydrocodone/Acetaminophen 10/325 Tab) 1 tab PO TID PRN PRN Reason: Pain Stop: 05/07/20 00:11 Last Admin: 04/28/20 13:38 Dose: 1 tab Documented by: Albuterol (Albuterol 0.083% Nebu Soln 3 Ml Vial) 2.5 mg INH Q4H PRN PRN Reason: Wheezing Stop: 05/23/20 00:11 Albuterol (Albuterol Hfa 8 Gm Inhaler) 2 puffs INH QID PRN PRN Reason: Shortness Of Breath Or Wheezing Stop: 05/23/20 00:11 Amitriptyline HCl (Amitriptyline Hcl 25 Mg Tab) 75 mg PO HS [facility] Stop: 05/23/20 20:59 Last Admin: 04/27/20 20:32 Dose: 75 mg Documented by: Fluticasone/Vilanterol (Fluticasone/Vilanterol 100/25mcg 14 Puffs/Inhaler) 1 puffs INH DAILY [facility] Stop: 05/23/20 08:59 Last Admin: 04/28/20 08:31 Dose: 1 puffs Documented by: Hydroxyurea (Hydroxyurea 500 Mg Cap) 500 mg PO DAILY [facility] Stop: 05/23/20 08:59 Last Admin: 04/28/20 08:31 Dose: 500 mg Documented by: Lactobacillus Acidophilus (Lactobacillus Acidophilus (Floranex) Tab) 4 tab PO TIDM [facility] Stop: 05/27/20 11:59 Last Admin: 04/28/20 11:29 Dose: 4 tab Documented by: Levofloxacin (Levofloxacin 250 Mg Tablet) 250 mg PO DAILY@1100 [facility] Stop: 05/07/20 10:59 Last Admin: 04/28/20 11:29 Dose: 250 mg Documented by: Loperamide HCl (Loperamide Hcl 2 Mg Cap) 4 mg PO Q4H PRN PRN Reason: Diarrhea Stop: 05/23/20 17:49 Metronidazole (Metronidazole 500 Mg Tab) 500 mg PO BID [facility] Stop: 05/08/20 20:59 Miscellaneous (Olopatadine~Order Awaiting Action) 1 ea N/A QS [facility] Stop: 05/23/20 07:59 Last Admin: 04/28/20 15:34 Dose: Not Given Documented by: Morphine Sulfate (Morphine Sulfate 4 Mg/Ml 1 Ml Carp\Vial) 3 mg IV Q4H PRN PRN Reason: Pain Stop: 05/07/20 00:11 Last Admin: 04/26/20 04:16 Dose: 3 mg Documented by: Nitroglycerin (Nitroglycerin Sl 0.4 Mg/Tab Tab) 0.4 mg SL UD PRN PRN Reason: Chest Pain Stop: 05/23/20 00:11 Pantoprazole Sodium (Pantoprazole 40 Mg Tab) 40 mg PO BID [facility] Stop: 09/20/20 20:59 Last Admin: 04/28/20 08:31 Dose: 40 mg Documented by: Pregabalin (Pregabalin 75 Mg Cap) 75 mg PO BID [facility] Stop: 05/23/20 08:59 Last Admin: 04/28/20 08:31 Dose: 75 mg Documented by: Risedronate (Risedronate Sodium 35 Mg Tab) 35 mg PO Abrams@0630 [facility] Stop: 05/26/20 06:29 Last Admin: 04/26/20 06:11 Dose: 35 mg Documented by: Rizatriptan Benzoate (Rizatriptan Benzoate 10 Mg Tab) 10 mg PO .DAILY/UD PRN PRN Reason: Headache Stop: 05/23/20 00:11 Temazepam (Temazepam 15 Mg Capsule) 30 mg PO HS PRN PRN Reason: Sleep Stop: 05/23/20 00:11 Last Admin: 04/27/20 20:36 Dose: 30 mg Documented by: Trazodone HCl (Trazodone Hcl 50 Mg Tab) 50 mg PO HS [facility] Stop: 05/23/20 20:59 Last Admin: 04/27/20 20:31 Dose: 50 mg Documented by: Umeclidinium Mineral (Umeclidinium Mineral 62.5mcg/Blister 7 Puffs/Inhaler) 1 puffs INH QAM [facility] Stop: 05/23/20 08:59 Last Admin: 04/28/20 08:31 Dose: 1 puffs Documented by: (1) GIB (gastrointestinal bleeding) GI bleed type/associated pathology: melena Qualified Code(s): K92.1 - Melena (2) COPD (chronic obstructive pulmonary disease) COPD type: unspecified COPD Qualified Code(s): J44.9 - Chronic obstructive pulmonary disease, unspecified
[2020-04-28] MEDS: ACETAMINOPHEN 325 MG TAB PO PRN (16:25)
[2020-04-28] MEDS: AMITRIPTYLINE HCL 25 MG TAB PO SCH (20:24)
[2020-04-28] MEDS: TRAZODONE HCL 50 MG TAB PO SCH (20:24)
[2020-04-28] MEDS: metroNIDAZOLE 500 MG TAB PO SCH (20:24)
[2020-04-28] MEDS: TEMAZEPAM 15 MG CAPSULE PO PRN (20:24)
[2020-04-28] MEDS: MoRPHine SULFATE 4 MG/ML 1 ML CARP\\VIAL IV PRN (20:39)
[2020-04-29] MEDS: LACTOBACILLUS ACIDOPHILUS (FLORANEX) TAB PO SCH ×3 (07:48→17:54)
[2020-04-29] MEDS: FLUTICASONE/VILANTEROL 100/25MCG 14 PUFFS/INHALER INH SCH (07:50)
[2020-04-29] MEDS: HYDROXYUREA 500 MG CAP PO SCH (07:51)
[2020-04-29] MEDS: metroNIDAZOLE 500 MG TAB PO SCH (07:51)
[2020-04-29] MEDS: PANTOprazole 40 MG TAB PO SCH ×2 (07:51→22:00)
[2020-04-29] MEDS: UMECLIDINIUM BROMIDE 62.5MCG/BLISTER 7 PUFFS/INHALER INH SCH (07:51)
[2020-04-29] MEDS: OLOPATADINE~ORDER AWAITING ACTION SCH ×3 (07:52→23:39)
[2020-04-29] MEDS: PREGABALIN 75 MG CAP PO SCH ×2 (07:55→22:00)
[2020-04-29] MEDS: HYDROCODONE/ACETAMINOPHEN 10/325 TAB PO PRN ×2 (08:02→17:53)
[2020-04-29 08:16] LABS: Basophils # (auto) 0.11 K/uL (0-0.2); Basophils % (auto) 0.6 %; Eosinophils # (auto) 0.37 K/uL (0-0.5); Eosinophils % (auto) 1.9 %; Hematocrit (blood only) 33.8 % (37-47); Hemoglobin 10.3 g/dL (12.0-16.0); Immature Granulocytes # (auto) 0.35 K/uL (0.00-0.02); Immature Granulocytes % (auto) 1.8 %; Lymphocytes # (auto) 1.83 K/uL (1.2-3.4); Lymphocytes % (auto) 9.5 %; Mean Corpuscular Hemoglobin 30.5 pg (25-34); Mean Corpuscular Hgb Conc 30.5 g/dL (32-36); Mean Platelet Volume 12.5 fL (7.4-10.4); Monocytes # (auto) 2.46 K/uL (0.11-0.59); Monocytes % (auto) 12.8 %; Neutrophils # (auto) 14.16 K/uL (1.4-6.5); Neutrophils % (auto) 73.4 %; Nucleated RBC # (auto) 0.06 K/uL (0-0); Nucleated RBC % (auto) 0.3 %; Platelet Count 646 K/uL (130-400); Red Blood Count 3.38 M/uL (4.2-5.4); White Blood Count 19.28 K/uL (4.8-10.8)
[2020-04-29 08:40] LABS: BUN Creatinine Ratio 17.2 (10-20); Calcium 8.2 mg/dl (8.5-10.1); Creatinine Clr Calc Pharmacy 26.4 ml/min; Est GFR (African American) 46.3; Est GFR (Non-African American) 39.9
[2020-04-29 09:03] LABS: Anisocytosis Present; Poikilocytosis Present; Schistocytes Occasional
--- NOTE | 2020-04-29 11:25 | Surgery Consultation ---
Date of Consultation April 29, 2020 Assessment & Plan (1) Splenic infarct: This is a 79y F with a PMH of myelodysplastic syndrome, thrombocytosis, peptic ulcer disease, & anemia who presented to the [facility] ED on 04/22/20 with weakness/fatigue and left sided abdominal pain. She has been admitted under the hospitalist service was found to have anemia & melena. She had since been transfused 2 units with improvement in her hbg. A CT a/p here was obtained that revealed mild wall thickening of the descending colon and sigmoid colon, suggestive of nonspecific colitis. It also showed re-demonstration of numerous suspected splenic infarcts. GI was consulted and recommended sending off cdiff which was negative. We were consulted regarding patient's splenic infarcts. It appears that they have been present since last month, maybe as early as possibly January. Patient is at high risk to starting anticoagulation as she has a history of anemia, myelodysplastic syndrome, and GI bleed. Would recommend against it for now, but must weight the risks/benefits. We would not perform splenectomy on patient at this time unless symptoms worsen. Continue conservative management, pain control, may continue diet. Pt has been discussed with Dr. Olivera. History of Present Illness Attending Physician: Desiree Cason, History of Present Illness This is a 79y F with a PMH of myelodysplastic syndrome, thrombocytosis, peptic ulcer disease, anemia, who presented to the [facility] ED on 04/22/20 with weakness/fatigue and left sided abdominal pain. Patient reports she was here earlier this month with similar symptoms and upon discharge just has not been feeling well. This admission she was found to have anemia (hb.1) with a + heme-occult and she was transfused 2u PRBC's and hbg has since been stable. In the ED patient underwent a CT a/p that revealed mild wall thickening of the descending colon and sigmoid colon, improved since CT of April 22, 2020, findings suggest a nonspecific colitis. It also revealed re-demonstration of numerous suspected splenic infarcts. Surgery has been consulted for inquiry regarding etiology of splenic infarcts and insight regarding management with consideration of possible anticoagulation. Of note the patient was here in January and there was concern for a subcapsular splenic hematoma and she had left sided abdominal pain from this. She reports she was doing well with her pain since discharge, but over the past 6 weeks started feeling pain again which has since worsened over the past two weeks now. Patient has had some nausea, but denies emesis, fevers, chills, chest pain/sob. She has had some diarrhea of which she says is improving. Allergies Allergy/AdvReac Type Severity Reaction Status Date / Time latex Allergy Intermediate HIVES Verified 04/01/20 17:34 nickel Allergy Intermediate Hives/Itchi Verified 04/01/20 17:34 ness shellfish derived Allergy Verified 04/02/20 15:43 Iodinated Contrast Media AdvReac Mild Diarrhea Verified 04/01/20 17:34 [Iodinated Contrast- Oral and IV Dye] Lobster Allergy Severe HIVES Uncoded 04/01/20 17:34 Home Medications Home Medications Medication Instructions Recorded Confirmed Type pantoprazole [Protonix] 40 mg PO BID PRN 06/06/18 04/22/20 History pregabalin [Lyrica] 75 mg PO BID 06/06/18 04/22/20 History temazepam [Restoril] 30 mg PO HS PRN 06/06/18 04/22/20 History Spiriva with HandiHaler 1 cap INHALATION QAM 12/17/19 04/22/20 History albuterol sulfate 2.5 mg INHALATION Q4H PRN 12/17/19 04/22/20 History albuterol sulfate [Ventolin HFA] 2 puff INHALATION QID PRN 12/17/19 04/22/20 History amitriptyline 75 mg PO HS 12/17/19 04/22/20 History fluticasone propion-salmeterol 1 inh INHALATION BID 12/17/19 04/22/20 History loperamide 2 mg PO Q4H PRN 12/17/19 04/22/20 History olopatadine 1 drp OPB BID PRN 12/17/19 04/22/20 History trazodone 50 mg PO HS 12/17/19 04/22/20 History acetaminophen [Tylenol] 325 mg PO QID PRN 01/23/20 04/22/20 History nicotine [Nicoderm CQ] 21 mg TRANSDERMAL QAM #14 ea 02/07/20 04/22/20 Rx bismuth subsalicylate 524 mg PO QID PRN 04/01/20 04/22/20 History [Pepto-Bismol] ondansetron HCl 8 mg PO Q12H PRN 04/01/20 04/22/20 History risedronate [Actonel] 35 mg PO WK 04/01/20 04/22/20 History rizatriptan 10 mg PO .DAILY/UD PRN 04/01/20 04/22/20 History sucralfate [Carafate] 1 gm PO ACHS 04/01/20 04/22/20 History tramadol 50 mg PO QID PRN 04/01/20 04/22/20 History hydrocodone-acetaminophen 1 tab PO BID PRN 04/22/20 04/22/20 History hydroxyurea 500 mg PO DAILY 04/22/20 04/22/20 History Patient History Medical History CKD (chronic kidney disease), stage III COPD (chronic obstructive pulmonary disease) History of breast cancer chemo History of MRSA infection "left hip wound" History of peptic ulcer disease IBS (irritable bowel syndrome) Diarrhea predominant ; follows with GI Leukocytosis MDS/MPN (myelodysplastic/myeloproliferative neoplasms) Myelodysplastic syndrome Pelvic fracture 12/2018 pelvic fracture and monitor Pulmonary emboli 12/2019 just monitored Pulmonary nodules CT 01/23/20: 5 mm RML 3 mm RML 3 mm DEVEN 4 mm RUL S/P ORIF (open reduction internal fixation) fracture fracture hip x 5 and then had ORIF Subcapsular hemorrhage of spleen Thrombocytosis Surgical History H/O mastectomy modified radical masectomy H/O: hysterectomy History of cholecystectomy Hx of esophagogastroduodenoscopy Status post mastectomy "modified right mastectomy 1990" Status post total hip replacement, left had after ORIF hip Family History Other Unknown family medical history Social History Smoking Status: Current some day smoker Tobacco Type: Cigarettes packs per day: 1; Second Hand Exposure: No; Tobacco Cessation Education Requested by Patient: No Hx Alcohol Use: No Hx Substance Use: No Preferred Language: Malay Communication Ability: Effective 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 Beliefs That Will Affect Care: None marital status: / Current Living Situation: Family How many Children do You have: 2 Other Information That Helps Us Care for You: No Feels Safe at Home: Yes Safety Concerns: Feels Safe At This Time Review of Systems Constitutional: no fever and no chills Respiratory: no dyspnea Cardiovascular: no chest pain Gastrointestinal: + abdominal pain (left sided abdominal pain, constant when it is present), + nausea and + diarrhea/loose stools (diarrhea, but now improved); no vomiting and no blood in stools Physical Exam Physical Exam: awake/alert Constitutional: no acute distress Gastrointestinal (Abdomen): Inspection/Auscultation: abdomen not distended Percussion/Palpation: + abdomen tender (ttp in LUQ) and abdomen soft Results & Data ([place]) Vital Signs (Past 12 Hours) Vital Signs Temp Pulse Resp BP Pulse Ox 04/29/20 06:27 37.2 C 97 H 16 124/[address] OF THE ABDOMEN AND PELVIS WITHOUT CONTRAST CLINICAL HISTORY: Lower abdominal pain. Evaluate for diverticulitis/colitis. COMPARISON STUDY: CT of the abdomen and pelvis April 22, 2020. TECHNIQUE: Axial images of the abdomen and pelvis were obtained without IV contrast. Images were reviewed in the axial, sagittal, and coronal planes. Automated exposure control was utilized for the study. A dose lowering technique was utilized adhering to the principles of ALARA. FINDINGS: Imaged portions of the lower chest partially visualize a right breast implant. Emphysema within the lower lungs is noted. Evaluation of the abdomen and pelvis is suboptimal on this unenhanced examination. No pneumatosis, free air or portal venous gas is present. Biliary ductal dilatation is unchanged and likely related to cholecystectomy. The spleen is moderately enlarged. There are numerous hypodensities within the spleen are suboptimally assessed on this unenhanced exam but similar to prior exam and favor evolving infarcts. A water attenuation right renal lesion favors a cyst. There is no hydronephrosis. Unenhanced images of the adrenal glands and pancreas are unremarkable. There is no peripancreatic infiltration. There is no evidence for a bowel obstruction. Images of the pelvis are degraded by streak artifact from a left hip a rthroplasty. Periprosthetic lucency is unchanged. Subacute fracture of the left ischium is again noted. Old T11 compression fracture is noted. There are no suspicious osseous lesions. Sigmoid diverticulosis is again noted. Mild sigmoid colon wall thickening is noted. There is mild wall thickening of the descending colon. Right colon wall thickening shown on prior exam has significantly improved. There is no abscess. The appendix is not visualized. IMPRESSION: 1. Mild wall thickening of the descending colon and sigmoid colon, improved since CT of April 22, 2020. The findings suggest a nonspecific colitis. No free air or abscess. 2. Redemonstration of numerous suspected splenic infarcts, suboptimally assessed on this unenhanced exam. 3. No bowel obstruction. ACT 112: Negative or not required by law. Electronically signed by: Constantin Richter M.D. 04/28/2020 10:38 AM PG Care Time/CCT Total # of Minutes Spent Total Time Spent with Patient: Total time spent is greater than 50% in coordination of care (as documented) at patient's floor/unit and/or counseling patient: Coding Level of Care Code 62997 Initial Inpt Care Lvl 1 Diagnoses Splenic infarct D73.5
[2020-04-29] MEDS: levoFLOXacin 250 MG TABLET PO SCH (11:53)
--- NOTE | 2020-04-29 19:34 | Hospitalist Progress Note ---
Date of Service April 29, 2020 Assessment & Plan (1) LUQ abdominal pain: Multiple possible contributing factors including worsened/increased splenic infarcts vs nonspecific colitis vs PUD vs other. Increased leukocytosis. Consult ID and General Surgery. 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 Per Surgery, no splenectomy and AC is relatively contraindicated. (3) Weakness: Likely related to symptomatic anemia on admission. She is s/p two units of blood and doing well. (4) Anemia: likely multifactorial including 2/2 chronic disease and BM suppression. Will discuss this further with her Bricklayer'S Assistant, Dr. Chavez (5) MDS/MPN (myelodysplastic/myeloproliferative neoplasms): Has been under care of coagulating operator/oncologist Has significant thrombocytosis (ET)--cont hydroxyurea with close outpatient follow-up. (6) Acute kidney injury superimposed on chronic kidney disease: Has history of chronic kidney disease stage III Noted to have increasing BUN and creatinine likely secondary to dehydration following diarrhea Has significant electrolyte abnormalities We will give cautious amount of intravenous fluid and monitor PRP and electrolytes Creatinine has been normalized (7) Severe protein-calorie malnutrition: monitor her and as outpatient. Admission and Anticipated Discharge Date Admission Date: April 22, 2020 Subjective Left sided abdominal pain Apathetic to food breathing at her baseline Denies any other pain Review of Systems Review of Systems: All systems reviewed & are unremarkable except as noted in Subjective Physical Exam Physical Exam: CONSTITUTIONAL: WNWD, vitals as above, generally well- appearing EYES: normal conjunctivae, no scleral icterus ENT: external ear and nose normal, MMM NECK: trachea midline RESPIRATORY: clear to auscultation bilaterally, no crackles, rales or wheezes, normal respiratory effort CARDIOVASCULAR: regular rate and rhythm, S1 and 2 heard without murmurs, gallops or rubs, no JVD, no peripheral edema GASTROINTESTINAL: normal bowel sounds, soft, LUQ pain and enlargement of spleen. nondistended. MUSCULOSKELETAL: strength 5/5 throughout, head is normocephalic and atraumatic, neck supple SKIN: warm and dry NEUROLOGIC: No facial palsy, no dysarthria. CN 2-12 grossly intact, no sensory deficit, normal cognition, normal speech, no tremor. No gross focal deficits. PSYCHIATRIC: alert cooperative and oriented to person, place and time. Results & Data Results & Data ([facility]) Vital Signs (Past 12 Hours) Vital Signs Temp Pulse Resp BP Pulse Ox 04/29/20 15:53 37.4 C 83 17 120/63 95 Laboratory Results Short CBC 04/29/20 Range/Units 07:34 WBC 19.28 H (4.8-10.8) K/uL Hgb 10.3 L (12.0-16.0) g/dL Hct 33.8 L (37-47) % Plt Count 646 H (130-400) K/uL BMP 04/29/20 07:34 Sodium 141 Potassium 4.0 Chloride 114 H Carbon Dioxide 21 BUN 22 H Creatinine 1.29 H Glucose 88 Calcium 8.2 L Medications Administered Current Inpatient Medications Acetaminophen (Acetaminophen 325 Mg Tab) 650 mg PO Q4H PRN PRN Reason: Pain or Fever Stop: 05/23/20 00:11 Last Admin: 04/28/20 16:25 Dose: 650 mg Documented by: Hydrocodone Bitart/Acetaminophen (Hydrocodone/Acetaminophen 10/325 Tab) 1 tab PO TID PRN PRN Reason: Pain Stop: 05/07/20 00:11 Last Admin: 04/29/20 17:53 Dose: 1 tab Documented by: Albuterol (Albuterol 0.083% Nebu Soln 3 Ml Vial) 2.5 mg INH Q4H PRN PRN Reason: Wheezing Stop: 05/23/20 00:11 Albuterol (Albuterol Hfa 8 Gm Inhaler) 2 puffs INH QID PRN PRN Reason: Shortness Of Breath Or Wheezing Stop: 05/23/20 00:11 Amitriptyline HCl (Amitriptyline Hcl 25 Mg Tab) 75 mg PO HS SHORTY Stop: 05/23/20 20:59 Last Admin: 04/28/20 20:24 Dose: 75 mg Documented by: Fluticasone/Vilanterol (Fluticasone/Vilanterol 100/25mcg 14 Puffs/Inhaler) 1 puffs INH DAILY SHORTY Stop: 05/23/20 08:59 Last Admin: 04/29/20 07:50 Dose: 1 puffs Documented by: Hydroxyurea (Hydroxyurea 500 Mg Cap) 500 mg PO DAILY SHORTY Stop: 05/23/20 08:59 Last Admin: 04/29/20 07:51 Dose: 500 mg Documented by: Lactobacillus Acidophilus (Lactobacillus Acidophilus (Floranex) Tab) 4 tab PO TIDM [facility] Stop: 05/27/20 11:59 Last Admin: 04/29/20 17:54 Dose: 4 tab Documented by: Levofloxacin (Levofloxacin 250 Mg Tablet) 250 mg PO DAILY@1100 [facility] Stop: 05/07/20 10:59 Last Admin: 04/29/20 11:53 Dose: 250 mg Documented by: Loperamide HCl (Loperamide Hcl 2 Mg Cap) 4 mg PO Q4H PRN PRN Reason: Diarrhea Stop: 05/23/20 17:49 Metronidazole (Metronidazole 500 Mg Tab) 500 mg PO BID [facility] Stop: 05/08/20 20:59 Last Admin: 04/29/20 07:51 Dose: 500 mg Documented by: Miscellaneous (Olopatadine~Order Awaiting Action) 1 ea N/A QS [facility] Stop: 05/23/20 07:59 Last Admin: 04/29/20 16:21 Dose: Not Given Documented by: Morphine Sulfate (Morphine Sulfate 4 Mg/Ml 1 Ml Carp\Vial) 3 mg IV Q4H PRN PRN Reason: Pain Stop: 05/07/20 00:11 Last Admin: 04/28/20 20:39 Dose: 3 mg Documented by: Nitroglycerin (Nitroglycerin Sl 0.4 Mg/Tab Tab) 0.4 mg SL UD PRN PRN Reason: Chest Pain Stop: 05/23/20 00:11 Pantoprazole Sodium (Pantoprazole 40 Mg Tab) 40 mg PO BID [facility] Stop: 05/24/20 20:59 Last Admin: 04/29/20 07:51 Dose: 40 mg Documented by: Pregabalin (Pregabalin 75 Mg Cap) 75 mg PO BID [facility] Stop: 05/23/20 08:59 Last Admin: 04/29/20 07:55 Dose: 75 mg Documented by: Risedronate (Risedronate Sodium 35 Mg Tab) 35 mg PO Abrams@0630 [facility] Stop: 05/26/20 06:29 Last Admin: 04/26/20 06:11 Dose: 35 mg Documented by: Rizatriptan Benzoate (Rizatriptan Benzoate 10 Mg Tab) 10 mg PO .DAILY/UD PRN PRN Reason: Headache Stop: 05/23/20 00:11 Temazepam (Temazepam 15 Mg Capsule) 30 mg PO HS PRN PRN Reason: Sleep Stop: 05/23/20 00:11 Last Admin: 04/28/20 20:24 Dose: 30 mg Documented by: Trazodone HCl (Trazodone Hcl 50 Mg Tab) 50 mg PO HS SHORTY Stop: 05/23/20 20:59 Last Admin: 04/28/20 20:24 Dose: 50 mg Documented by: Umeclidinium [place] (Umeclidinium [place] 62.5mcg/Blister 7 Puffs/Inhaler) 1 puffs INH QAM SHORTY Stop: 05/23/20 08:59 Last Admin: 04/29/20 07:51 Dose: 1 puffs Documented by: (1) Anemia Anemia type: unspecified type Qualified Code(s): D64.9 - Anemia, unspecified
[2020-04-29] MEDS: AMITRIPTYLINE HCL 25 MG TAB PO SCH (21:59)
[2020-04-29] MEDS: TRAZODONE HCL 50 MG TAB PO SCH (21:59)
[2020-04-29] MEDS: MoRPHine SULFATE 4 MG/ML 1 ML CARP\\VIAL IV PRN (22:00)
[2020-04-29] MEDS: TEMAZEPAM 15 MG CAPSULE PO PRN (22:01)
[2020-04-30] MEDS: LACTOBACILLUS ACIDOPHILUS (FLORANEX) TAB PO SCH ×3 (07:57→17:17)
[2020-04-30] MEDS: OLOPATADINE~ORDER AWAITING ACTION SCH ×3 (07:58→23:08)
[2020-04-30] MEDS: FLUTICASONE/VILANTEROL 100/25MCG 14 PUFFS/INHALER INH SCH (07:58)
[2020-04-30] MEDS: UMECLIDINIUM BROMIDE 62.5MCG/BLISTER 7 PUFFS/INHALER INH SCH (07:58)
[2020-04-30] MEDS: PANTOprazole 40 MG TAB PO SCH ×2 (07:59→20:47)
[2020-04-30] MEDS: HYDROXYUREA 500 MG CAP PO SCH (07:59)
[2020-04-30] MEDS: PREGABALIN 75 MG CAP PO SCH ×2 (08:01→20:50)
[2020-04-30 11:30] LABS: BUN Creatinine Ratio 16.6 (10-20); Creatinine Clr Calc Pharmacy 24.3 ml/min; Est GFR (African American) 41.9; Est GFR (Non-African American) 36.2; Magnesium 1.7 mg/dl (1.8-2.4)
[2020-04-30 11:47] LABS: Hematocrit (blood only) 28.7 % (37-47); Hemoglobin 8.7 g/dL (12.0-16.0); Mean Corpuscular Hemoglobin 29.7 pg (25-34); Mean Corpuscular Hgb Conc 30.3 g/dL (32-36); Mean Platelet Volume 12.4 fL (7.4-10.4); Nucleated RBC # (auto) 0.07 K/uL (0-0); Nucleated RBC % (auto) 0.5 %; Platelet Count 603 K/uL (130-400); RDW Coefficient of Variation 26.2 % (11.5-14.5); RDW Standard Deviation 86.1 fL (36.4-46.3); Red Blood Count 2.93 M/uL (4.2-5.4); White Blood Count 15.62 K/uL (4.8-10.8)
[2020-04-30 11:49] LABS: Anisocytosis Present; Basophils % (auto) 0.6 %; Eosinophils # (auto) 0.26 K/uL (0-0.5); Eosinophils % (auto) 1.7 %; Immature Granulocytes # (auto) 0.41 K/uL (0.00-0.02); Immature Granulocytes % (auto) 2.6 %; Lymphocytes # (auto) 1.25 K/uL (1.2-3.4); Monocytes # (auto) 2.13 K/uL (0.11-0.59); Monocytes % (auto) 13.6 %; Neutrophils # (auto) 11.47 K/uL (1.4-6.5); Neutrophils % (auto) 73.5 %; Platelet Estimate Increased (Normal); Poikilocytosis Present; Polychromasia 1+
--- NOTE | 2020-04-30 13:22 | Hospitalist Progress Note ---
Date of Service April 30, 2020 Assessment & Plan (1) LUQ abdominal pain: Multiple possible contributing factors including worsened/increased splenic infarcts vs nonspecific colitis vs PUD vs other. Increased leukocytosis. Consult ID and General Surgery. (2) Weakness: Likely related to symptomatic anemia on admission. She is s/p two units of blood and doing well. Weakness has improved. 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 Per Surgery, no splenectomy and AC is relatively contraindicated. (4) MDS/MPN (myelodysplastic/myeloproliferative neoplasms): Has been under care of painter structural steel/oncologist Has significant thrombocytosis (ET)--cont hydroxyurea with close outpatient follow-up. (5) Anemia: likely multifactorial including 2/2 chronic disease and BM suppression. Workup in hospital. Reticulocytes are inappropriately low normal indicating bone marrow dysfunction. May ultimately transfusion dependent. Close follow-up with hematology recommended regularly to catch this prior to her becoming symptomatic. (6) Acute kidney injury superimposed on chronic kidney disease: Has history of chronic kidney disease stage III Noted to have increasing BUN and creatinine likely secondary to dehydration following diarrhea Has significant electrolyte abnormalities We will give cautious amount of intravenous fluid and monitor PRP and electrolytes Creatinine has been normalized (7) Severe protein-calorie malnutrition: monitor her and as outpatient. Admission and Anticipated Discharge Date Admission Date: April 22, 2020 Subjective Reports feeling slightly improved today with improvement in L sided pain. She remains apathetic to food. She denies any other symptoms today including no chest pain, SOB or overt bleeding. WBC count is lower today despite abx being stopped yesterday. Review of Systems Review of Systems: All systems reviewed & are unremarkable except as noted in Subjective Physical Exam Physical Exam: CONSTITUTIONAL: thin, vitals as above, generally well- appearing EYES: normal conjunctivae, no scleral icterus ENT: external ear and nose normal, MMM RESPIRATORY: clear to auscultation bilaterally, no crackles, rales or wheezes, normal respiratory effort CARDIOVASCULAR: regular rate and rhythm, S1 and 2 heard without murmurs, gallops or rubs, no JVD, no peripheral edema GASTROINTESTINAL: normal bowel sounds, soft, nondistended, L side pain still present with splenomegaly present MUSCULOSKELETAL: moves all extremities equally, head is normocephalic and atraumatic SKIN: warm and dry NEUROLOGIC: No facial palsy, no dysarthria. CN 2-12 grossly intact, no sensory deficit, normal cognition, normal speech, no gross focal deficits. PSYCHIATRIC: alert cooperative and oriented to person, place and time. Results & Data Results & Data ([facility]) Vital Signs (Past 12 Hours) Vital Signs Temp Pulse Resp BP Pulse Ox 04/30/20 07:24 36.7 C 83 16 99/62 L 97 Laboratory Results Short CBC 04/30/20 Range/Units 11:03 WBC 15.62 H (4.8-10.8) K/uL Hgb 8.7 L (12.0-16.0) g/dL Hct 28.7 L (37-47) % Plt Count 603 H (130-400) K/uL BMP 04/30/20 11:03 Sodium 142 Potassium 5.0 D Chloride 116 H Carbon Dioxide 20 L BUN 23 H Creatinine 1.40 H Glucose 94 Calcium 8.0 L Medications Administered Current Inpatient Medications Acetaminophen (Acetaminophen 325 Mg Tab) 650 mg PO Q4H PRN PRN Reason: Pain or Fever Stop: 05/23/20 00:11 Last Admin: 04/28/20 16:25 Dose: 650 mg Documented by: Hydrocodone Bitart/Acetaminophen (Hydrocodone/Acetaminophen 10/325 Tab) 1 tab PO TID PRN PRN Reason: Pain Stop: 05/07/20 00:11 Last Admin: 04/29/20 17:53 Dose: 1 tab Documented by: Albuterol (Albuterol 0.083% Nebu Soln 3 Ml Vial) 2.5 mg INH Q4H PRN PRN Reason: Wheezing Stop: 05/23/20 00:11 Albuterol (Albuterol Hfa 8 Gm Inhaler) 2 puffs INH QID PRN PRN Reason: Shortness Of Breath Or Wheezing Stop: 05/23/20 00:11 Amitriptyline HCl (Amitriptyline Hcl 25 Mg Tab) 75 mg PO HS SHORTY Stop: 05/23/20 20:59 Last Admin: 04/29/20 21:59 Dose: 75 mg Documented by: Fluticasone/Vilanterol (Fluticasone/Vilanterol 100/25mcg 14 Puffs/Inhaler) 1 puffs INH DAILY SHORTY Stop: 05/23/20 08:59 Last Admin: 04/30/20 07:58 Dose: 1 puffs Documented by: Hydroxyurea (Hydroxyurea 500 Mg Cap) 500 mg PO DAILY [facility] Stop: 05/23/20 08:59 Last Admin: 04/30/20 07:59 Dose: 500 mg Documented by: Lactobacillus Acidophilus (Lactobacillus Acidophilus (Floranex) Tab) 4 tab PO TIDM SHORTY Stop: 05/27/20 11:59 Last Admin: 04/30/20 12:40 Dose: 4 tab Documented by: Loperamide HCl (Loperamide Hcl 2 Mg Cap) 4 mg PO Q4H PRN PRN Reason: Diarrhea Stop: 05/23/20 17:49 Miscellaneous (Olopatadine~Order Awaiting Action) 1 ea N/A QS [facility] Stop: 05/23/20 07:59 Last Admin: 04/30/20 07:58 Dose: Not Given Documented by: Morphine Sulfate (Morphine Sulfate 4 Mg/Ml 1 Ml Carp\Vial) 3 mg IV Q4H PRN PRN Reason: Pain Stop: 05/07/20 00:11 Last Admin: 04/29/20 22:00 Dose: 3 mg Documented by: Nitroglycerin (Nitroglycerin Sl 0.4 Mg/Tab Tab) 0.4 mg SL UD PRN PRN Reason: Chest Pain Stop: 05/23/20 00:11 Pantoprazole Sodium (Pantoprazole 40 Mg Tab) 40 mg PO BID [facility] Stop: 05/24/20 20:59 Last Admin: 04/30/20 07:59 Dose: 40 mg Documented by: Pregabalin (Pregabalin 75 Mg Cap) 75 mg PO BID [facility] Stop: 05/23/20 08:59 Last Admin: 04/30/20 08:01 Dose: 75 mg Documented by: Risedronate (Risedronate Sodium 35 Mg Tab) 35 mg PO Abrams@0630 [facility] Stop: 05/26/20 06:29 Last Admin: 04/26/20 06:11 Dose: 35 mg Documented by: Rizatriptan Benzoate (Rizatriptan Benzoate 10 Mg Tab) 10 mg PO .DAILY/UD PRN PRN Reason: Headache Stop: 05/23/20 00:11 Temazepam (Temazepam 15 Mg Capsule) 30 mg PO HS PRN PRN Reason: Sleep Stop: 05/23/20 00:11 Last Admin: 04/29/20 22:01 Dose: 30 mg Documented by: Trazodone HCl (Trazodone Hcl 50 Mg Tab) 50 mg PO HS [facility] Stop: 05/23/20 20:59 Last Admin: 04/29/20 21:59 Dose: 50 mg Documented by: Umeclidinium [place] (Umeclidinium [place] 62.5mcg/Blister 7 Puffs/Inhaler) 1 puffs INH QAM [facility] Stop: 05/23/20 08:59 Last Admin: 04/30/20 07:58 Dose: 1 puffs Documented by: (1) Anemia Anemia type: unspecified type Qualified Code(s): D64.9 - Anemia, unspecified
[2020-04-30] MEDS: HYDROCODONE/ACETAMINOPHEN 10/325 TAB PO PRN (14:07)
[2020-04-30 14:21] LABS: Reticulocyte % 1.4 % (0.5-2.0); Reticulocytes # 0.04 10^6/uL (0.02-0.10)
[2020-04-30] MEDS: LACTATED RINGER'S 1,000 ML IV SCH (18:19)
[2020-04-30] MEDS: AMITRIPTYLINE HCL 25 MG TAB PO SCH (20:47)
[2020-04-30] MEDS: TEMAZEPAM 15 MG CAPSULE PO PRN (20:50)
[2020-04-30] MEDS: TRAZODONE HCL 50 MG TAB PO SCH (20:50)
[2020-04-30] MEDS: MoRPHine SULFATE 4 MG/ML 1 ML CARP\\VIAL IV PRN (21:10)
[2020-05-01] MEDS: LACTATED RINGER'S 1,000 ML IV SCH (02:16)
[2020-05-01] MEDS: HYDROCODONE/ACETAMINOPHEN 10/325 TAB PO PRN ×2 (05:18→12:06)
[2020-05-01] MEDS: OLOPATADINE~ORDER AWAITING ACTION SCH (07:30)
[2020-05-01] MEDS: FLUTICASONE/VILANTEROL 100/25MCG 14 PUFFS/INHALER INH SCH (07:30)
[2020-05-01] MEDS: PANTOprazole 40 MG TAB PO SCH ×2 (07:30→20:38)
[2020-05-01] MEDS: HYDROXYUREA 500 MG CAP PO SCH (07:30)
[2020-05-01] MEDS: LACTOBACILLUS ACIDOPHILUS (FLORANEX) TAB PO SCH ×3 (07:31→17:08)
[2020-05-01] MEDS: UMECLIDINIUM BROMIDE 62.5MCG/BLISTER 7 PUFFS/INHALER INH SCH (07:32)
[2020-05-01] MEDS: PREGABALIN 75 MG CAP PO SCH ×2 (07:34→20:38)
[2020-05-01] MEDS: ACETAMINOPHEN 325 MG TAB PO PRN (07:45)
[2020-05-01 12:19] LABS: Basophils # (auto) 0.13 K/uL (0-0.2); Basophils % (auto) 0.8 %; Eosinophils # (auto) 0.35 K/uL (0-0.5); Eosinophils % (auto) 2.3 %; Hematocrit (blood only) 29.4 % (37-47); Hemoglobin 9.2 g/dL (12.0-16.0); Immature Granulocytes # (auto) 0.55 K/uL (0.00-0.02); Immature Granulocytes % (auto) 3.6 %; Lymphocytes # (auto) 1.93 K/uL (1.2-3.4); Lymphocytes % (auto) 12.5 %; Mean Corpuscular Hemoglobin 31.6 pg (25-34); Mean Corpuscular Hgb Conc 31.3 g/dL (32-36); Mean Platelet Volume 11.9 fL (7.4-10.4); Monocytes # (auto) 2.12 K/uL (0.11-0.59); Monocytes % (auto) 13.7 %; Neutrophils # (auto) 10.38 K/uL (1.4-6.5); Neutrophils % (auto) 67.1 %; Nucleated RBC # (auto) 0.05 K/uL (0-0); Nucleated RBC % (auto) 0.3 %; Platelet Count 867 K/uL (130-400); RDW Coefficient of Variation 24.1 % (11.5-14.5); RDW Standard Deviation 84.1 fL (36.4-46.3); Red Blood Count 2.91 M/uL (4.2-5.4); White Blood Count 15.46 K/uL (4.8-10.8)
[2020-05-01 12:41] LABS: Albumin Level 2.4 gm/dl (3.4-5.0); Calcium 8.2 mg/dl (8.5-10.1); Creatinine Clr Calc Pharmacy 24.9 ml/min; Est GFR (Non-African American) 37.1; Magnesium 1.8 mg/dl (1.8-2.4); Potassium 4.6 mmol/L (3.5-5.1)
[2020-05-01 12:43] LABS: Albumin Globulin Ratio 0.7 (0.9-2); Bilirubin,Total 0.3 mg/dl (0.2-1); Globulin 3.6 gm/dl (2.5-4.0); Phosphorus 3.4 mg/dl (2.5-4.9)
[2020-05-01 13:09] LABS: Anisocytosis Present; Giant Platelets 1+
[2020-05-01] MEDS ORDERED: ACETAMINOPHEN 500 MG TAB PO PRN (17:44)
[2020-05-01] MEDS ORDERED: ACETAMINOPHEN 500 MG TAB PO ONE (17:45)
[2020-05-01] MEDS ORDERED: OXYCODONE HCL IR 5 MG TAB (IMMEDIATE RELEASE) PO STA (17:45)
--- NOTE | 2020-05-01 17:51 | Hospitalist Progress Note ---
Date of Service May 01, 2020 Assessment & Plan (1) LUQ abdominal pain: Multiple possible contributing factors including worsened/increased splenic infarcts vs nonspecific colitis vs PUD vs other. Improved leukocytosis. (2) Weakness: Likely related to symptomatic anemia on admission. She is s/p two units of blood and doing well. Weakness has improved. H/H remained stable. 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 Per Surgery, no splenectomy and AC is relatively contraindicated. Changed pain control method to oxycodone instead of [place] with better coverage of pain. (4) MDS/MPN (myelodysplastic/myeloproliferative neoplasms): Has been under care of press setter/oncologist Has significant thrombocytosis (ET)--cont hydroxyurea with close outpatient follow-up. (5) Anemia: likely multifactorial including 2/2 chronic disease and BM suppression. Workup in hospital. Reticulocytes are inappropriately low normal indicating bone marrow dysfunction. May ultimately transfusion dependent. Close follow-up with hematology recommended regularly to catch this prior to her becoming symptomatic. (6) Severe protein-calorie malnutrition: Follow-up closely with PCP and Compressor Operator Adjuster. Admission and Anticipated Discharge Date Admission Date: April 22, 2020 Subjective Pt reports persistent pain in her spleen. Reports that her pain is not well controlled on the current [place] regimen. PCP supplies her opiates She is eating today and feeling better overall. She reports no shortness of breath. She is asking to avoid any more phlebotomy. We discussed a trial of heparin drip and she reports that she needs to leave and sign some paperwork to get into her new apartment tomorrow. She is also too scared to try this heparin and then walk out so soon tomorrow. Review of Systems Review of Systems: All systems reviewed & are unremarkable except as noted in Subjective Physical Exam Physical Exam: CONSTITUTIONAL: WNWD, vitals as above, generally well- appearing EYES: normal conjunctivae, no scleral icterus ENT: external ear and nose normal, MMM NECK: trachea midline RESPIRATORY: clear to auscultation bilaterally, no crackles, rales or wheezes, normal respiratory effort CARDIOVASCULAR: regular rate and rhythm, S1 and 2 heard without murmurs, gallops or rubs, no JVD, no peripheral edema GASTROINTESTINAL: normal bowel sounds, soft, LUQ pain and enlargement of spleen. nondistended. MUSCULOSKELETAL: strength 5/5 throughout, head is normocephalic and atraumatic, neck supple SKIN: warm and dry NEUROLOGIC: No facial palsy, no dysarthria. CN 2-12 grossly intact, no sensory deficit, normal cognition, normal speech, no tremor. No gross focal deficits. PSYCHIATRIC: alert cooperative and oriented to person, place and time. Results & Data Results & Data ([facility]) Vital Signs (Past 12 Hours) Vital Signs Temp Pulse Resp BP Pulse Ox 05/01/20 15:12 36.4 C L 76 16 99/61 L 94 05/01/20 15:06 91 05/01/20 07:52 37.2 C 90 16 110/67 92 Laboratory Results Short CBC 05/01/20 Range/Units 12:03 WBC 15.46 H (4.8-10.8) K/uL Hgb 9.2 L (12.0-16.0) g/dL Hct 29.4 L (37-47) % Plt Count 867 H (130-400) K/uL BMP 05/01/20 12:03 Sodium 139 Potassium 4.6 Chloride 112 H Carbon Dioxide 21 BUN 21 H Creatinine 1.37 H Glucose 96 Calcium 8.2 L Liver Function 05/01/20 Range/Units 12:03 Total Bilirubin 0.3 (0.2-1) mg/dl AST 24 (15-37) U/L ALT 9 L (12-78) U/L Alkaline Phosphatase 86 (45-117) U/L Albumin 2.4 L (3.4-5.0) gm/dl Medications Administered Current Inpatient Medications Acetaminophen (Acetaminophen 500 Mg Tab) 500 mg PO Q4H PRN PRN Reason: Pain or Fever Stop: 05/23/20 00:11 Acetaminophen (Acetaminophen 500 Mg Tab) 1,000 mg PO ONE ONE Stop: 05/01/20 17:46 Albuterol (Albuterol 0.083% Nebu Soln 3 Ml Vial) 2.5 mg INH Q4H PRN PRN Reason: Wheezing Stop: 05/23/20 00:11 Albuterol (Albuterol Hfa 8 Gm Inhaler) 2 puffs INH QID PRN PRN Reason: Shortness Of Breath Or Wheezing Stop: 05/23/20 00:11 Amitriptyline HCl (Amitriptyline Hcl 25 Mg Tab) 75 mg PO HS SHORTY Stop: 05/23/20 20:59 Last Admin: 04/30/20 20:47 Dose: 75 mg Documented by: Fluticasone/Vilanterol (Fluticasone/Vilanterol 100/25mcg 14 Puffs/Inhaler) 1 puffs INH DAILY SHORTY Stop: 05/23/20 08:59 Last Admin: 05/01/20 07:30 Dose: 1 puffs Documented by: Hydroxyurea (Hydroxyurea 500 Mg Cap) 500 mg PO DAILY SHORTY Stop: 05/23/20 08:59 Last Admin: 05/01/20 07:30 Dose: 500 mg Documented by: Lactobacillus Acidophilus (Lactobacillus Acidophilus (Floranex) Tab) 4 tab PO TIDM SHORTY Stop: 05/27/20 11:59 Last Admin: 05/01/20 17:08 Dose: Not Given Documented by: Loperamide HCl (Loperamide Hcl 2 Mg Cap) 4 mg PO Q4H PRN PRN Reason: Diarrhea Stop: 05/23/20 17:49 Morphine Sulfate (Morphine Sulfate 4 Mg/Ml 1 Ml Carp\Vial) 3 mg IV Q4H PRN PRN Reason: Pain Stop: 05/07/20 00:11 Last Admin: 04/30/20 21:10 Dose: 3 mg Documented by: Nitroglycerin (Nitroglycerin Sl 0.4 Mg/Tab Tab) 0.4 mg SL UD PRN PRN Reason: Chest Pain Stop: 05/23/20 00:11 Oxycodone HCl (Oxycodone Hcl Ir 5 Mg Tab (Immediate Release)) 5 mg PO Q4 PRN PRN Reason: Pain Stop: 05/15/20 17:43 Oxycodone HCl (Oxycodone Hcl Ir 5 Mg Tab (Immediate Release)) 5 mg PO NOW STA Stop: 05/01/20 17:46 Pantoprazole Sodium (Pantoprazole 40 Mg Tab) 40 mg PO BID SHORTY Stop: 05/24/20 20:59 Last Admin: 05/01/20 07:30 Dose: 40 mg Documented by: Pregabalin (Pregabalin 75 Mg Cap) 75 mg PO BID SHORTY Stop: 05/23/20 08:59 Last Admin: 05/01/20 07:34 Dose: 75 mg Documented by: Risedronate (Risedronate Sodium 35 Mg Tab) 35 mg PO Abrams@0630 SHORTY Stop: 05/26/20 06:29 Last Admin: 04/26/20 06:11 Dose: 35 mg Documented by: Rizatriptan Benzoate (Rizatriptan Benzoate 10 Mg Tab) 10 mg PO .DAILY/UD PRN PRN Reason: Headache Stop: 05/23/20 00:11 Temazepam (Temazepam 15 Mg Capsule) 30 mg PO HS PRN PRN Reason: Sleep Stop: 05/23/20 00:11 Last Admin: 04/30/20 20:50 Dose: 30 mg Documented by: Trazodone HCl (Trazodone Hcl 50 Mg Tab) 50 mg PO HS SHORTY Stop: 05/23/20 20:59 Last Admin: 04/30/20 20:50 Dose: 50 mg Documented by: Umeclidinium [place] (Umeclidinium [place] 62.5mcg/Blister 7 Puffs/Inhaler) 1 puffs INH QAM [facility] Stop: 05/23/20 08:59 Last Admin: 05/01/20 07:32 Dose: 1 puffs Documented by: (1) Anemia Anemia type: unspecified type Qualified Code(s): D64.9 - Anemia, unspecified
[2020-05-01] MEDS: MoRPHine SULFATE 4 MG/ML 1 ML CARP\\VIAL IV PRN (20:38)
[2020-05-01] MEDS: TRAZODONE HCL 50 MG TAB PO SCH (20:38)
[2020-05-01] MEDS: TEMAZEPAM 15 MG CAPSULE PO PRN (20:38)
[2020-05-01] MEDS: AMITRIPTYLINE HCL 25 MG TAB PO SCH (20:39)
[2020-05-02] MEDS: OXYCODONE HCL IR 5 MG TAB (IMMEDIATE RELEASE) PO PRN ×3 (04:52→12:50)
[2020-05-02] MEDS: HYDROXYUREA 500 MG CAP PO SCH (07:54)
[2020-05-02] MEDS: PREGABALIN 75 MG CAP PO SCH (07:54)
[2020-05-02] MEDS: FLUTICASONE/VILANTEROL 100/25MCG 14 PUFFS/INHALER INH SCH (07:54)
[2020-05-02] MEDS: PANTOprazole 40 MG TAB PO SCH (07:55)
[2020-05-02] MEDS: LACTOBACILLUS ACIDOPHILUS (FLORANEX) TAB PO SCH ×3 (07:55→16:33)
[2020-05-02] MEDS: UMECLIDINIUM BROMIDE 62.5MCG/BLISTER 7 PUFFS/INHALER INH SCH (08:36)
[2020-05-02] MEDS ORDERED: OXYCODONE/APAP 7.5/325MG TAB PO ONE (16:58)
--- NOTE | 2020-05-02 17:01 | Discharge Summary ---
Date of Service May 02, 2020 Admission HPI Per Admitting Provider This is a 79-year-old female with past medical history significant for myeloproliferative disease, anemia of chronic kidney disease stage III, essential thrombocythemia, COPD, peripheral vascular disease, chronic diarrhea, irritable bowel syndrome, GERD, depression, history of peptic ulcer disease, history of breast cancer, history of tobacco use disorder. The patient comes with weakness and found to be anemic. The patient says she lives with her daughter. She walks without any support. The patient recently had issues with GI bleeds. She also has a history of pulmonary embolism diagnosed recently and not on anticoagulation secondary to GI bleeds. She has history of acute on chronic respiratory failure secondary to pneumonia and mucus plugging and splenic infarct and hemorrhage, history of bleeding duodenal ulcer in December 2019. Comes because of generalized weakness and hemoglobin was found to be 7.1 and Hemoccult was positive. Possible melena. She was started on 2 units of PRBC in the ER. Currently, resting comfortably and hemodynamically stable. She also complains of lower abdominal pain since last few days. Denies any nausea, vomiting. Denies any bright red blood per rectum. Normal bladder movements. Appetite is okay. Denies any chest pain, no shortness of breath, no cough. The patient is afebrile, has mild headache, no blurred vision, no earache, no runny nose, no sore throat, no difficulty swallowing. Admission Exam Per Admitting Provider PHYSICAL EXAMINATION: GENERAL: The patient is of moderate build, not in acute distress. VITAL SIGNS: Temperature 37.4, pulse 93, respiratory rate 16, blood pressure 102/46, oxygen 96% on nasal cannula. HEENT: No pallor, no icterus. Pupils equal, round, reactive to light. NECK: No JVD, no neck masses, no carotid bruit. CARDIOVASCULAR: S1, S2 heard, regular rate and rhythm, no murmur, no gallop. RESPIRATORY SYSTEM: Normal AP diameter. No accessory muscle use. No wheezing, no crackles. ABDOMEN: Soft, bowel sounds present. Mild abdominal diffuse discomfort. No guarding, no rigidity. CENTRAL NERVOUS SYSTEM: Cranial nerves II-XII grossly intact. Nonfocal. EXTREMITIES: No edema, no erythema. Principal Diagnosis Symptomatic anemia and weakness MDS and PITO-2 mutation with a h/o thromboembolic disease and splenic infarctions nonspecific colitis chronic pain severe malnutrition Discharge Exam CONSTITUTIONAL: thin, generally well-appearing EYES: normal conjunctivae, no scleral icterus ENT: external ear and nose normal, oropharynx clear RESPIRATORY: clear to auscultation bilaterally, no crackles, rales or wheezes, normal respiratory effort CARDIOVASCULAR: regular rate and rhythm, S1 and 2 heard without murmurs, gallops or rubs, no JVD, no peripheral edema GASTROINTESTINAL: soft, TTP in LUQ/LLQ with splenomegaly, not distended MUSCULOSKELETAL: strength 5/5 throughout, head is normocephalic and atraumatic SKIN: warm and dry NEUROLOGIC: No facial palsy, no dysarthria. CN 2-12 grossly intact, no sensory deficit, normal cognition, normal speech, no tremor PSYCHIATRIC: alert cooperative and oriented to person, place and time. Euthymic mood, makes good eye contact Discharge Data Allergies Allergy/AdvReac Type Severity Reaction Status Date / Time latex Allergy Intermediate HIVES Verified 04/01/20 17:34 nickel Allergy Intermediate Hives/Itchi Verified 04/01/20 17:34 ness shellfish derived Allergy Verified 04/02/20 15:43 Iodinated Contrast Media AdvReac Mild Diarrhea Verified 04/01/20 17:34 [Iodinated Contrast- Oral and IV Dye] Lobster Allergy Severe HIVES Uncoded 04/01/20 17:34 Consultations 04/22/20 20:05 ED Decision to Admit Stat 04/23/20 00:12 Consult Case Management - Discharge Planning Routine 04/23/20 08:00 Consult Gastroenterology Routine 04/29/20 07:58 Consult Infectious Diseases Routine 04/29/20 09:03 Consult General Surgery Routine Ordered Studies 04/22/20 18:32 CT abd pelvis wo con Stat CT head/brain wo con Stat 04/28/20 10:00 CT abd pelvis wo con Routine Hospital Course (1) Weakness: (2) Anemia: (3) MDS/MPN (myelodysplastic/myeloproliferative neoplasms): (4) Splenic infarct: (5) Chronic pain: (6) Nonspecific colitis: (7) Severe protein-calorie malnutrition: (8) Abdominal pain: (9) History of breast cancer: (10) History of peptic ulcer disease: (11) IBS (irritable bowel syndrome): (12) Pulmonary emboli: (13) Pulmonary nodules: follow-up per outpatient PCP (14) Acute blood loss anemia: (15) Acute kidney injury superimposed on chronic kidney disease: (16) Bacteremia: (17) Asymptomatic bacteriuria: This patient has an increased tendency to hypercoagulable events as a smoker with a h/o JAK2 mutation and MDS. She has a recent h/o pulmonary emboli picked up during an prior admission to [facility] this spring. Her anemia, however, prevented any anticoagulation at that time. She continues to have significant anemia and weakness this admission and this has been a recurring issue likely related to symptomatic anemia. Workup this admission includes a peripheral smear with the pathologist reporting no presence of shistocytes and no evidence of intravascular hemolysis as a cause of her anemia. Her reticulocyte count is inappropriately low normal, so this is likely related to low production of RBCs from the bone marrow and she is expected to be transfusion dependent in the near future. Initial H/H on admission was 7.1/24 with a platelet count of 1136, and after the transfusion, within about 4 days, H/H was 11.2/34 and PLT count was 492. By time of discharge she felt much stronger than on admission. To date, she has not been anticoagulated for these splenic infarcts and pulmonary thromboembolic disease because of her anemia. Per her reading tutor, in the context of pulmonary thromboembolic disease and increased amount of splenic infarctions, a conservative challenge of AC with heparin drip was recommended. However, with her wishes to leave the hospital within a day of this plan being presented. This challenge will need to take place as outpatient and I recommended a follow-up with Dr. Chavez next week. Trial of oxycodone overnight as a replacement option for [place] for better pain control as requested by the patient. She was admitted by the hospitalist team with a positive Hemoccult. She was put on a Protonix drip and GI was consulted. GI noted that she had peptic ulcer disease in December with a negative EGD less than 1 month ago. On hospital day 2 she had loose brown stools and lower abdominal cramping. Her abdominal CT was consistent with colitis and a C. difficile was negative. Recommendation was made to continue IV PPI bolus and drip for 48 hours then continue Protonix 40 daily. Stool culture was checked and negative. She was given a daily probiotic. She was noted to have gram-positive cocci in clusters in her blood and was receiving IV vancomycin. An echocardiogram was performed on 04/24 revealing ejection fraction 60-65 with grade 1 diastolic dysfunction. The mitral valve leaflets were mildly thickened and there was mild mitral annular calcification with no visualized vegetation. The right ventricular systolic pressure was elevated at 50 to 60 mmHg consistent with moderate to severe pulmonary hypertension. She was then found to have gram-negative bacilli in her urine and was on IV ceftriaxone for this which grew E. coli and Klebsiella pneumonia both pansensitive. Infectious disease was consulted and recommended stopping all antibiotics as she was noted to have pseudo-bacteremia with organisms consistent with skin contaminants and asymptomatic bacteriuria. After stopping antibiotics she still continued to do well clinically. General surgery was consulted for an increased amount of splenic infarct seen on her CT of the abdomen pelvis. As these infarcts had been present for the last couple of months and the patient was noted to be high risk of starting anticoagulation with history of anemia, myelodysplastic syndrome and GI bleed in addition to subcapsular hematoma of the spleen it was not recommended to proceed with anticoagulation. After seeing the patient general surgery would consider performing a splenectomy only if her symptoms worsened. She continued to have left upper quadrant/left lower quadrant pain in her abdomen and there was some splenomegaly noted on exam. She has known chronic pain and is covered with [place], but is requesting additional pain supplementation and she was given oxycodone with improvement.. At time of discharge she was hemodynamically stable and afebrile and tolerating p.o. She reported her weakness had improved and she felt stronger than on admission. Although she was willing to try the anticoagulation trial she had to physically go to an appointment regarding a new apartment she had waited 5 years for. She also requested no further phlebotomy during this hospitalization. We both felt it would be too risky to send her out on anticoagulation without at least 48 hours on a heparin drip in the hospital therefore, no anticoagulation was given at time of discharge. A close follow-up with Dr. Chavez was recommended to consider this as well as repeat lab work, monitoring for any transfusion needs. Primary care physician follow-up was also recommended within 1 to 2 weeks of the hospitalization. Total Time Total Time Spent Total Time Spent (In Minutes): 60 Total Time Includes: Examination of the Patient, Discharge Planning, Medication Reconciliation and Communication With Other Providers Discharge Plan Discharge Items Patient Disposition: Home - Home Health Services Reason For Visit: WEAKNESS Discharge Diagnosis: Symptomatic anemia and weakness MDS and PITO-2 mutation with a h/o thromboembolic disease and splenic infarctions nonspecific colitis chronic pain severe malnutrition Condition on Discharge: Good Activity: Resume your previous activity Non-emergency contact: Primary Care Provider Call non-emergency contact if: you have any medication questions, your symptoms worsen, your pain is not controlled, your pain is worsening, your pain is unusual for you, your pain is concerning for you and you have a fever Follow-up/Referrals: Valerie Chavez MD [Primary Care Provider] - None Diet: Low Fiber Diet Texture: Easy to Chew Addtl Attending Provider Instructions: Please take all medications as instructed on discharge list below. It is strongly recommended that you follow-up with Dr. Mainor Chavez in his office within 1-2 weeks. You are currently scheduled for the following time/sparkle e: 07/07/2020 3:15 PM Provider Mainor Chavez MD Department Hematology/Oncology [facility] This appointment will be important because: 1) you have blood clots and infarcts to your spleen that will require a blood thinner. 2) You have bone marrow that is not making enough blood like is should. He will likely monitor your blood every 2-4 weeks and transfuse you when needed as outpatient instead of getting to the point you need a hospital 3) Help you with pain control and titration of the pain medication as needed to achieve control of your pain. It is also recommended that you follow-up with your primary care physician (PCP) Dr. Opal Chavez within 2-4 weeks of discharge. Your kidney function has declined and you will need a chemistry panel to review with her and ensure this has improved. You were placed on a short course of antibiotics to treat your left sided colitis. If you experience any side effects from these medications please touch base with Dr. Opal Chavez (PCP) to get this regimen changed. It was a pleasure taking care of you! Please call if you have any questions or problems. You can reach a [facility] hospitalist on duty at [facility] 24 hours a day by calling [phone]. Take care of yourself. Desiree Cason, DO [facility] Hospitalist Pending Studies at Discharge: No Stand-Alone Forms: My [facility] [employer], Smoking Cessation Medications and DC Order Prescriptions: New oxycodone-acetaminophen [Percocet] 7.5-325 mg tablet 1 tab PO Q6H PRN (Reason: severe pain) Qty: 30 RF: 0 metronidazole [Flagyl] 500 mg tablet 500 mg PO Q8H Qty: 21 RF: 0 ciprofloxacin HCl [Cipro] 500 mg tablet 500 mg PO Q12H Qty: 14 RF: 0 pantoprazole [Protonix] 40 mg tablet,delayed release (DR/EC) 40 mg PO DAILY Qty: 30 RF: 1 fluconazole [Diflucan] 150 mg tablet 150 mg PO ONCE PRN (Reason: yeast infection) Qty: 1 RF: 0 Continued ondansetron HCl 8 mg Tablet 8 mg PO Q12H PRN (Reason: Nausea) RF: 0 rizatriptan 10 mg Tablet 10 mg PO .DAILY/UD PRN (Reason: Headache) RF: 0 bismuth subsalicylate [Pepto-Bismol] 262 mg/15 mL Suspension 524 mg PO QID PRN (Reason: GI-UPSET) RF: 0 risedronate [Actonel] 35 mg tablet 35 mg PO WK RF: 0 sucralfate [Carafate] 1 gram tablet 1 gm PO ACHS RF: 0 tramadol 50 mg tablet 50 mg PO QID PRN (Reason: pain) RF: 0 temazepam [Restoril] 30 mg Capsule 30 mg PO HS PRN (Reason: Sleep) RF: 0 pantoprazole [Protonix] 40 mg Tablet,Delayed Release (Dr/Ec) 40 mg PO BID PRN (Reason: Gastric Reflux) RF: 0 pregabalin [Lyrica] 75 mg Capsule 75 mg PO BID RF: 0 albuterol sulfate 2.5 mg /3 mL (0.083 %) solution for nebulization 2.5 mg inhalation Q4H PRN (Reason: Wheezing) RF: 0 amitriptyline 75 mg tablet 75 mg PO HS RF: 0 olopatadine 0.1 % drops 1 drp OPB BID PRN (Reason: Itching) RF: 0 fluticasone propion-salmeterol 500-50 mcg/dose blister with device 1 inh INHALATION BID RF: 0 albuterol sulfate [Ventolin HFA] 90 mcg/actuation HFA aerosol inhaler 2 puff INHALATION QID PRN (Reason: Shortness Of Breath Or Wheezing) RF: 0 Spiriva with HandiHaler 18 mcg capsule, w/inhalation device 1 cap INHALATION QAM RF: 0 loperamide 2 mg capsule 2 mg PO Q4H PRN (Reason: Diarrhea) RF: 0 trazodone 50 mg tablet 50 mg PO HS RF: 0 acetaminophen [Tylenol] 325 mg Tablet 325 mg PO QID PRN (Reason: Pain) RF: 0 nicotine [Nicoderm CQ] 21 mg/24 hr Patch 24 Hour 21 mg transdermal QAM Qty: 14 RF: 1 hydroxyurea 500 mg capsule 500 mg PO DAILY RF: 0 Discontinued hydrocodone-acetaminophen 10-325 mg tablet 1 tab PO BID PRN (Reason: Pain) RF: 0 Discharge Orders: Discharge Order (Routine); Ordered 05/02/20 Ordered By: Desiree Wolff/Other Patient Handouts: Falls Risks Prevent, Acetaminophen Oxycodone tablets Admission Data Admit Date/Time: 04/22/20 23:12 Attending Provider: Desiree Cason Admit Provider: Geovanni Ibanez Primary Care Provider: Valerie Chavez Other Providers: [facility],Home Healthcare ; Geovanni Ibanez ; Josafat Howard ; Felix Robertson ; Abhijit Muñiz ; Sanjay Kahn I. ; Savage Maldonado II ; Lluvia Peralta ; Bandar Peraza ; Zander Olivera Other Interventions: Discharge Summary Assessment (RN) Last Done: 05/02/20 17:08
== END 2020-05-02 17:55 | disposition home health service (06) | DRG 377 ==
LOC: ED 17:59 → 1E 23:12 → SUATTDRO 23:12 → 1E 04-23 00:15 → 2S 04-23 15:26 → 3W 04-27 12:49

== ENCOUNTER 2020-05-28 17:23 | Inpatient (IN) ==
[2020-05-28] MEDS ORDERED: SODIUM CHLORIDE 0.9% 250 ML IV PRN ×2 (17:47→21:18)
--- NOTE | 2020-05-28 17:55 | Emergency Department Note ---
History of Present Illness General Chief complaint: Illness Stated complaint: BLOOD COUNT LOW Time Seen by Provider: 05/28/20 17:38 Source: patient Limitations: no limitations History of Present Illness Provider complaint: Generalized weakness Onset (ago): day(s) Location: head Severity: severe Maximum Pain Intensity: 7 Quality: + other (Weakness) Relieved By: + none Associated symptoms: + shortness of breath; no chest pain, no cough, no fever/chills, no nausea/vomiting and no syncope This is a 79-year-old female with a history of myelodysplastic syndrome presenting with generalized weakness. She states she has been weak for the past 2 to 3 days. It is worse when she tries to do something. She did have blood work this morning which showed a hemoglobin of 6 and was told to go to the emergency department for further care. She does complain of some mild shortness of breath associated with weakness. She denies any chest discomfort or pain, fever, cough or cold symptoms, known exposure to COVID-19, abdominal pain, black or bloody stools or hematuria. Also states that her platelet count was very high. She does complain of left foot pain and states she has a history of neuropathy. She does state that she takes morphine daily. Home Medications Home Medications Medication Instructions Recorded Confirmed Type pantoprazole [Protonix] 40 mg PO BID PRN 06/06/18 05/28/20 History pregabalin [Lyrica] 75 mg PO BID 06/06/18 05/28/20 History temazepam [Restoril] 30 mg PO HS PRN 06/06/18 05/28/20 History Spiriva with HandiHaler 1 cap INHALATION QAM 12/17/19 05/28/20 History albuterol sulfate 2.5 mg INHALATION Q4H PRN 12/17/19 05/28/20 History albuterol sulfate [Ventolin HFA] 2 puff INHALATION QID PRN 12/17/19 05/28/20 History amitriptyline 75 mg PO HS 12/17/19 05/28/20 History fluticasone propion-salmeterol 1 inh INHALATION BID 12/17/19 05/28/20 History loperamide 2 mg PO Q4H PRN 12/17/19 05/28/20 History olopatadine 1 drp OPB BID PRN 12/17/19 05/28/20 History trazodone 50 mg PO HS 12/17/19 05/28/20 History acetaminophen [Tylenol] 325 mg PO QID PRN 01/23/20 05/28/20 History bismuth subsalicylate 524 mg PO QID PRN 04/01/20 05/28/20 History [Pepto-Bismol] ondansetron HCl 8 mg PO Q12H PRN 04/01/20 05/28/20 History risedronate [Actonel] 35 mg PO WK 04/01/20 05/28/20 History rizatriptan 10 mg PO .DAILY/UD PRN 04/01/20 05/28/20 History sucralfate [Carafate] 1 gm PO ACHS 04/01/20 05/28/20 History tramadol 50 mg PO QID PRN 04/01/20 05/28/20 History hydroxyurea 500 mg PO DAILY 04/22/20 05/28/20 History doxycycline hyclate 100 mg PO BID 05/28/20 05/28/20 History methylprednisolone 0 mg PO DIRECTED 05/28/20 05/28/20 History morphine 15 mg PO Q12H 05/28/20 05/28/20 History oxycodone 5 mg PO DIRECTED PRN 05/28/20 05/28/20 History Allergies Allergy/AdvReac Type Severity Reaction Status Date / Time latex Allergy Intermediate HIVES Verified 05/28/20 18:44 nickel Allergy Intermediate Hives/Itchi Verified 05/28/20 18:44 ness shellfish derived Allergy Intermediate Hives Verified 05/28/20 18:44 Iodinated Contrast Media AdvReac Mild Diarrhea Verified 05/28/20 18:44 [Iodinated Contrast- Oral and IV Dye] Lobster Allergy Severe HIVES Uncoded 05/28/20 18:44 Past Med/Surg History Medical History CKD (chronic kidney disease), stage III COPD (chronic obstructive pulmonary disease) History of breast cancer chemo History of MRSA infection "left hip wound" History of peptic ulcer disease IBS (irritable bowel syndrome) Diarrhea predominant ; follows with GI Leukocytosis MDS/MPN (myelodysplastic/myeloproliferative neoplasms) Myelodysplastic syndrome Pelvic fracture 12/2018 pelvic fracture and monitor Pulmonary emboli 12/2019 just monitored Pulmonary nodules CT 01/23/20: 5 mm RML 3 mm RML 3 mm DEVEN 4 mm RUL S/P ORIF (open reduction internal fixation) fracture fracture hip x 5 and then had ORIF Subcapsular hemorrhage of spleen Thrombocytosis Surgical History H/O mastectomy modified radical masectomy H/O: hysterectomy History of cholecystectomy Hx of esophagogastroduodenoscopy Status post mastectomy "modified right mastectomy 1990" Status post total hip replacement, left had after ORIF hip Family History Other Unknown family medical history Social History Smoking Status: Former smoker Tobacco Type: Cigarettes packs per day: 1; Second Hand Exposure: No; Hx Alcohol Use: No Hx Substance Use: No Preferred Language: Divehi Communication Ability: Effective 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 and A total of 10 systems reviewed and were otherwise negative Physical Exam Vital Signs Vital Signs - 24 hr 05/28/20 17:33 05/28/20 19:24 Temperature 36.4 C L Temperature Source Oral Pulse Rate 114 H Pulse Rate [Right Finger] 99 H Respiratory Rate 20 16 Respiratory Effort / Characteristics Non-Labored Spontaneous Respiratory Depth Normal Blood Pressure 103/59 L Blood Pressure Mean 73 Blood Pressure Position Sitting Pulse Oximetry 95 96 Oxygen Delivery Method Room Air Room Air Sepsis Recent Fever Within 48 Hours No Sepsis New/Unexplained Change in Mental Status N/A Sepsis Action Taken by Nursing No Action Required Constitutional: Vital signs reviewed. Eyes: Pupils are equal round reactive to light. Conjunctiva are noninjected. ENT: Pharynx is clear without erythema or exudate. Mucous membranes are moist. Neck supple without meningeal signs. Respiratory: Clear to auscultation bilaterally. Breath sounds are equal bilaterally. Cardiovascular: Tachycardic. Heart rate 110. GI: Soft, nondistended and nontender. Bowel sounds are present. Rectal: Guaiac negative brown stool. Musculoskeletal: No peripheral edema. Tenderness to the left great and second toe with some mild erythema. No cellulitis is noted. Dorsalis pedis pulses palpable. No increased warmth or coolness to the toes. Integumentary: No cyanosis. or jaundice. Neurological: The patient is awake and alert. No focal deficits. Psychiatric: Normal affect. Not anxious appearing. Course Administered Medications Discontinued Medications Fluconazole (Fluconazole 50 Mg Tab) 150 mg PO NOW ONE Stop: 05/28/20 18:30 Last Admin: 05/28/20 18:59 Dose: 150 mg Documented by: [id number] Critical Care Time Critical Care Time: Yes Total Critical Care Time: 35 I have personally spent approximately 35 minutes of critical care time in the direct management of this patient. This includes bedside care, interpretation of diagnostic studies, and testing, discussion with consultants, patient, and family members, and other required patient management activities. These minutes are in excess of all separately billable procedures. Medical Decision Making Differential Diagnosis GI bleed, myelodysplastic syndrome, symptomatic anemia, endorgan damage, pneumonia Medical Records Attestation: I reviewed the patient's medical records. The patient was admitted in April for severe anemia. Her hemoglobin was 7 and she presented with generalized weakness, hypotension and tachycardia. She was admitted to the hospital and seen by GI and placed on a PPI. She was noted to have an EGD about a month ago which showed no evidence of bleed. Home Medications Current Medication List: was personally reviewed by me Laboratory Data Attestation: I reviewed the patient's lab results. Result diagrams: 05/28/20 18:46 05/28/20 18:46 Lab Results 05/28/20 05/28/20 05/28/20 Range/Units 18:46 18:46 18:46 WBC 21.98 H (4.8-10.8) K/uL RBC 2.15 L (4.2-5.4) M/uL Hgb 6.5 L* (12.0-16.0) g/dL Hct 21.3 L (37-47) % MCV 99.1 (80-100) fL MCH 30.2 (25-34) pg MCHC 30.5 L (32-36) g/dL RDW Std Deviation 88.3 H (36.4-46.3) fL RDW Coeff of Radha 25.4 H (11.5-14.5) % Plt Count 3039 H* (130-400) K/uL MPV 10.5 H (7.4-10.4) fL Absolute Nucleated RBC 0.61 H (0-0) K/uL Nucleated RBC % (auto) 2.8 % Neutrophils % (Manual) 94.7 % Lymphocytes % (Manual) 4.4 % Basophils % (Manual) 0.9 % Neutrophils # (Manual) 20.82 H (1.4-6.5) K/uL Total Absolute Neuts 20.82 H (1.4-6.5) K/uL Lymphocytes # (Manual) 0.97 L (1.2-3.4) K/uL Total Abs Lymphocytes 0.97 L (1.2-3.4) K/uL Basophils # (Manual) 0.20 (0-0.2) K/uL Hypochromasia Present Basophilic Stippling 1+ Anisocytosis Present PT (9.0-12.0) Seconds INR (0.9-1.1) APTT (21.0-31.0) Seconds PTT Ratio Sodium 142 (136-145) mmol/L Potassium 4.7 (3.5-5.1) mmol/L Chloride 112 H (98-107) mmol/L Carbon Dioxide 21 (21-32) mmol/L Anion Gap 9.0 (3-11) BUN 26 H (7-18) mg/dl Creatinine 1.16 (0.6-1.2) mg/dl Est Cr Clr Drug Dosing 30.1 ml/min Est GFR ( Amer) 52.6 Est GFR (Non-Af Amer) 45.4 BUN/Creatinine Ratio 22.5 H (10-20) Glucose 141 H (70-99) mg/dl Calcium 9.1 (8.5-10.1) mg/dl Total Bilirubin 0.4 (0.2-1) mg/dl AST 13 L (15-37) U/L ALT 10 L (12-78) U/L Alkaline Phosphatase 80 (45-117) U/L Total Protein 6.9 (6.4-8.2) gm/dl Albumin 3.3 L (3.4-5.0) gm/dl Globulin 3.6 (2.5-4.0) gm/dl Albumin/Globulin Ratio 0.9 (0.9-2) Crossmatch See Detail 05/28/20 Range/Units 18:46 WBC (4.8-10.8) K/uL RBC (4.2-5.4) M/uL Hgb (12.0-16.0) g/dL Hct (37-47) % MCV (80-100) fL MCH (25-34) pg MCHC (32-36) g/dL RDW Std Deviation (36.4-46.3) fL RDW Coeff of Radha (11.5-14.5) % Plt Count (130-400) K/uL MPV (7.4-10.4) fL Absolute Nucleated RBC (0-0) K/uL Nucleated RBC % (auto) % Neutrophils % (Manual) % Lymphocytes % (Manual) % Basophils % (Manual) % Neutrophils # (Manual) (1.4-6.5) K/uL Total Absolute Neuts (1.4-6.5) K/uL Lymphocytes # (Manual) (1.2-3.4) K/uL Total Abs Lymphocytes (1.2-3.4) K/uL Basophils # (Manual) (0-0.2) K/uL Hypochromasia Basophilic Stippling Anisocytosis PT 11.6 (9.0-12.0) Seconds INR 1.1 (0.9-1.1) APTT 30.8 (21.0-31.0) Seconds PTT Ratio 1.1 Sodium (136-145) mmol/L Potassium (3.5-5.1) mmol/L Chloride (98-107) mmol/L Carbon Dioxide (21-32) mmol/L Anion Gap (3-11) BUN (7-18) mg/dl Creatinine (0.6-1.2) mg/dl Est Cr Clr Drug Dosing ml/min Est GFR ( Amer) Est GFR (Non-Af Amer) BUN/Creatinine Ratio (10-20) Glucose (70-99) mg/dl Calcium (8.5-10.1) mg/dl Total Bilirubin (0.2-1) mg/dl AST (15-37) U/L ALT (12-78) U/L Alkaline Phosphatase (45-117) U/L Total Protein (6.4-8.2) gm/dl Albumin (3.4-5.0) gm/dl Globulin (2.5-4.0) gm/dl Albumin/Globulin Ratio (0.9-2) Crossmatch Imaging Data Radiologist's Impression: ECG Data Attestation: I personally reviewed and interpreted this ECG as follows: Indication: + SOB/dyspnea Rate (beats per minute): 103 Rhythm: + sinus tachycardia ECG Intervals/blocks: + Incomplete right bundle branch block ECG ST segments: + T-wave inversions ECG Findings: no PVCs Blood Pressure Blood Pressure Findings: Low blood pressure Blood Pressure Disposition: further management by hospitalist JHOANA Narrative I did evaluate the patient as noted above. I did obtain records from the [facility] system through [facility]. She did have blood work done yesterday at noon which showed a white count of 21,000, a hemoglobin of 6 and a platelet count of 2491. IV access was established by the IV team using ultrasound guidance. I did place an order for continuous cardiac monitoring. The monitor showed sinus tachycardia with a rate of 110 bpm. She is mildly hypotensive. I did obtain written consent for blood transfusion. I did order 2 units of type and crossmatched packed RBCs. I did order and personally review the patient's 12-l ead EKG as described above. She has sinus tachycardia with an incomplete right bundle branch block and some T wave inversions. I did order a chest x-ray. I did order and review the patient's blood work as noted in the electronic medical record. She has a white count of 22,000. Hemoglobin is 6.5. Platelet count is 3039. Electrolytes are unremarkable. The patient was given Diflucan 150 mg or ally per her request. She states she has a yeast infection. She also requested pain medication and states that she takes morphine daily. She was given IV morphine 2 mg once her blood pressure improved to 125 systolic. Her tachycardia did improve and her heart rate is now in the 90s in normal sinus rhythm. I did discuss case with the hospitalist and case work aide for further care. Impression & Plan Symptomatic anemia, MDS (myelodysplastic syndrome), Thrombocytosis, Acute hypotension, Tachycardia, Leukocytosis, Foot pain, left Discharge Plan Visit Data Chief Complaint: Illness Stated Complaint: BLOOD COUNT LOW ED Provider: Yareli,Kelechi S. Discharge Problem: Symptomatic anemia, MDS (myelodysplastic syndrome), Thrombocytosis, Acute hypotension, Tachycardia, Leukocytosis, Foot pain, left Patient Disposition: Being Evaluated by Hospitalist Forms Stand Alone Forms: [facility] Prescriptions Prescriptions: No Action ondansetron HCl 8 mg Tablet 8 mg PO Q12H PRN (Reason: Nausea) RF: 0 rizatriptan 10 mg Tablet 10 mg PO .DAILY/UD PRN (Reason: Headache) RF: 0 bismuth subsalicylate [Pepto-Bismol] 262 mg/15 mL Suspension 524 mg PO QID PRN (Reason: GI-UPSET) RF: 0 risedronate [Actonel] 35 mg tablet 35 mg PO WK RF: 0 sucralfate [Carafate] 1 gram tablet 1 gm PO ACHS RF: 0 tramadol 50 mg tablet 50 mg PO QID PRN (Reason: pain) RF: 0 doxycycline hyclate 100 mg capsule 100 mg PO BID RF: 0 morphine 15 mg tablet extended release 15 mg PO Q12H RF: 0 methylprednisolone 4 mg tablets,dose pack 0 mg PO DIRECTED RF: 0 oxycodone 5 mg tablet 5 mg PO DIRECTED PRN (Reason: Breakthrough Pain) RF: 0 temazepam [Restoril] 30 mg Capsule 30 mg PO HS PRN (Reason: Sleep) RF: 0 pantoprazole [Protonix] 40 mg Tablet,Delayed Release (Dr/Ec) 40 mg PO BID PRN (Reason: Gastric Reflux) RF: 0 pregabalin [Lyrica] 75 mg Capsule 75 mg PO BID RF: 0 albuterol sulfate 2.5 mg /3 mL (0.083 %) solution for nebulization 2.5 mg inhalation Q4H PRN (Reason: Wheezing) RF: 0 amitriptyline 75 mg tablet 75 mg PO HS RF: 0 olopatadine 0.1 % drops 1 drp OPB BID PRN (Reason: Itching) RF: 0 fluticasone propion-salmeterol 500-50 mcg/dose blister with device 1 inh INHALATION BID RF: 0 albuterol sulfate [Ventolin HFA] 90 mcg/actuation HFA aerosol inhaler 2 puff INHALATION QID PRN (Reason: Shortness Of Breath Or Wheezing) RF: 0 Spiriva with HandiHaler 18 mcg capsule, w/inhalation device 1 cap INHALATION QAM RF: 0 loperamide 2 mg capsule 2 mg PO Q4H PRN (Reason: Diarrhea) RF: 0 trazodone 50 mg tablet 50 mg PO HS RF: 0 acetaminophen [Tylenol] 325 mg Tablet 325 mg PO QID PRN (Reason: Pain) RF: 0 hydroxyurea 500 mg capsule 500 mg PO DAILY RF: 0 Referrals Referrals: Valerie Chavez MD [Primary Care Provider] -
[2020-05-28] MEDS ORDERED: FLUCONAZOLE 50 MG TAB PO ONE (18:29)
[2020-05-28 19:18] LABS: INR 1.1 (0.9-1.1); Partial Thromboplastin Ratio 1.1; Partial Thromboplastin Time 30.8 Seconds (21.0-31.0); Prothrombin Time 11.6 Seconds (9.0-12.0)
[2020-05-28 19:25] LABS: Hematocrit (blood only) 21.3 % (37-47); Mean Corpuscular Hemoglobin 30.2 pg (25-34); Mean Corpuscular Hgb Conc 30.5 g/dL (32-36); Mean Corpuscular Volume 99.1 fL (80-100); Mean Platelet Volume 10.5 fL (7.4-10.4); Nucleated RBC # (auto) 0.61 K/uL (0-0); Nucleated RBC % (auto) 2.8 %; RDW Coefficient of Variation 25.4 % (11.5-14.5); RDW Standard Deviation 88.3 fL (36.4-46.3); Red Blood Count 2.15 M/uL (4.2-5.4); White Blood Count 21.98 K/uL (4.8-10.8)
[2020-05-28 19:26] LABS: Hemoglobin 6.5 g/dL (12.0-16.0)
[2020-05-28 19:27] LABS: Albumin Level 3.3 gm/dl (3.4-5.0); BUN Creatinine Ratio 22.5 (10-20); Calcium 9.1 mg/dl (8.5-10.1); Creatinine Clr Calc Pharmacy 30.1 ml/min; Est GFR (African American) 52.6; Est GFR (Non-African American) 45.4; Platelet Count 3039 K/uL (130-400); Potassium 4.7 mmol/L (3.5-5.1)
[2020-05-28 19:29] LABS: ALC (manual) 0.97 K/uL (1.2-3.4); ANC (manual) 20.82 K/uL (1.4-6.5); Albumin Globulin Ratio 0.9 (0.9-2); Anisocytosis Present; Basophilic Stippling 1+; Basophils % (manual) 0.9 %; Bilirubin,Total 0.4 mg/dl (0.2-1); Globulin 3.6 gm/dl (2.5-4.0); Hypochromasia Present; Lymphocytes # (manual) 0.97 K/uL (1.2-3.4); Lymphocytes % (manual) 4.4 %; Neutrophils # (manual) 20.82 K/uL (1.4-6.5); Neutrophils % (manual) 94.7 %; Total Protein 6.9 gm/dl (6.4-8.2)
[2020-05-28] MEDS ORDERED: MoRPHine SULFATE 2 MG/ML CARP IV STA (19:43)
[2020-05-28 20:03] LABS: Magnesium 1.5 mg/dl (1.8-2.4)
--- NOTE | 2020-05-28 20:17 | History & Physical Report ---
Date of Service May 28, 2020 Assessment & Plan (1) Symptomatic anemia: Acute on chronic anemia Hemoglobin drop from baseline hx myeloproliferative disorder on Hydrea Rx COPD, ongoing tobacco abuse Pulmonary status at baseline hx PVD as per records hx breast cancer, right, status post surgery, chemoradiation hx pulmonary embolism not on anticoagulation secondary to history of GI bleeding Left foot pain of unknown duration, rule out bony pathology mood/anxiety disorder, at baseline Malnutrition (low BMI) Medical telemetry Transfuse PRBC to maintain hemoglobin greater than 8 Plain x-rays of the left foot Nutrition consult DVT prophylaxis with SCDs Re: History of GI bleed causing significant anemia Full code Text document was generated using [employer] voice recognition software. It may contain grammatical or spelling errors. Kindly contact undersigned for clarification of any documentation item in question. History of Present Illness Chief Complaint: Low blood count Primary Care Provider: Valerie Chavez MD History obtained from patient, and records. Medical history is significant for COPD, ongoing tobacco abuse, hx PVD, hx breast cancer, right, status post surgery, chemoradiation, thrombocythemia on Hydrea therapy, myelodysplastic syndrome, history pulmonary embolism not on anticoagulation significant bleeding risk, chronic anemia (baseline hemoglobin of 8-9), mood/anxiety disorder. Recent confinement last month for symptomatic anemia. Initial hemoglobin 7.1. Positive Hemoccult during confinement. No endoscopy done by GI given negative EGD from March 2020. Last 3 days patient noted increased generalized weakness without chest pain. Shortness of breath on exertion. No fever, no chills, no unusual cough symptoms. No abdominal pain. No black, no bloody stools. Usual left foot pain without recollection of recent trauma. Patient associate medical director ordered outpatient blood work which showed hemoglobin of 6. Patient given option by associate medical director either to proceed to ER for evaluation versus outpatient blood transfusion at the [facility]. At the ER, 1 unit packed RBC transfused. Medical history as above Surgical History : Cholecystectomy, mastectomy right, hysterectomy, hip surgery Family History : Hypertension Personal/social history past tobacco abuse, no EtOH intake, lives with daughter; patient in the process of moving to assisted living facility. Allergies Allergy/AdvReac Type Severity Reaction Status Date / Time latex Allergy Intermediate HIVES Verified 05/28/20 18:44 nickel Allergy Intermediate Hives/Itchi Verified 05/28/20 18:44 ness shellfish derived Allergy Intermediate Hives Verified 05/28/20 18:44 Iodinated Contrast Media AdvReac Mild Diarrhea Verified 05/28/20 18:44 [Iodinated Contrast- Oral and IV Dye] Lobster Allergy Severe HIVES Uncoded 05/28/20 18:44 Home Medications Home Medications Medication Instructions Recorded Confirmed Type pantoprazole [Protonix] 40 mg PO BID PRN 06/06/18 05/28/20 History pregabalin [Lyrica] 75 mg PO BID 06/06/18 05/28/20 History temazepam [Restoril] 30 mg PO HS PRN 06/06/18 05/28/20 History Spiriva with HandiHaler 1 cap INHALATION QAM 12/17/19 05/28/20 History albuterol sulfate 2.5 mg INHALATION Q4H PRN 12/17/19 05/28/20 History albuterol sulfate [Ventolin HFA] 2 puff INHALATION QID PRN 12/17/19 05/28/20 History amitriptyline 75 mg PO HS 12/17/19 05/28/20 History fluticasone propion-salmeterol 1 inh INHALATION BID 12/17/19 05/28/20 History loperamide 2 mg PO Q4H PRN 12/17/19 05/28/20 History olopatadine 1 drp OPB BID PRN 12/17/19 05/28/20 History trazodone 50 mg PO HS 12/17/19 05/28/20 History acetaminophen [Tylenol] 325 mg PO QID PRN 01/23/20 05/28/20 History bismuth subsalicylate 524 mg PO QID PRN 04/01/20 05/28/20 History [Pepto-Bismol] ondansetron HCl 8 mg PO Q12H PRN 04/01/20 05/28/20 History risedronate [Actonel] 35 mg PO WK 04/01/20 05/28/20 History rizatriptan 10 mg PO .DAILY/UD PRN 04/01/20 05/28/20 History sucralfate [Carafate] 1 gm PO ACHS 04/01/20 05/28/20 History tramadol 50 mg PO QID PRN 04/01/20 05/28/20 History hydroxyurea 500 mg PO DAILY 04/22/20 05/28/20 History doxycycline hyclate 100 mg PO BID 05/28/20 05/28/20 History methylprednisolone 0 mg PO DIRECTED 05/28/20 05/28/20 History morphine 15 mg PO Q12H 05/28/20 05/28/20 History oxycodone 5 mg PO DIRECTED PRN 05/28/20 05/28/20 History Past Med/Surg History Medical History CKD (chronic kidney disease), stage III COPD (chronic obstructive pulmonary disease) History of breast cancer chemo History of MRSA infection "left hip wound" History of peptic ulcer disease IBS (irritable bowel syndrome) Diarrhea predominant ; follows with GI Leukocytosis MDS/MPN (myelodysplastic/myeloproliferative neoplasms) Myelodysplastic syndrome Pelvic fracture 12/2018 pelvic fracture and monitor Pulmonary emboli 12/2019 just monitored Pulmonary nodules CT 01/23/20: 5 mm RML 3 mm RML 3 mm DEVEN 4 mm RUL S/P ORIF (open reduction internal fixation) fracture fracture hip x 5 and then had ORIF Subcapsular hemorrhage of spleen Thrombocytosis Surgical History H/O mastectomy modified radical masectomy H/O: hysterectomy History of cholecystectomy Hx of esophagogastroduodenoscopy Status post mastectomy "modified right mastectomy 1990" Status post total hip replacement, left had after ORIF hip Family History Other Unknown family medical history Social History Smoking Status: Current some day smoker Tobacco Type: Cigarettes packs per day: 1; Second Hand Exposure: No; Do You Dip or Chew Tobacco: No; Tobacco Cessation Education Requested by Patient: No Hx Alcohol Use: No Hx Substance Use: No Preferred Language: Turkmen Communication Ability: Effective Space Controller Required: Voice Beliefs That Will Affect Care: None marital status: / Current Living Situation: Family How many Children do You have: 2 Other Information That Helps Us Care for You: No Feels Safe at Home: Yes Safety Concerns: Feels Safe At This Time Assistive Devices: Denture - Upper, Denture - Lower and Oxygen - at Night Physical Exam Physical Exam: GENERAL: Pleasant, no respiratory distress, underweight SKIN: Pallor , warm HEENT: Pale palpebral conjunctivae, no ptosis, dry buccal mucosa, edentulous NECK : Supple, no tenderness CHEST : Breast implant mound right, decreased breath sounds, no tenderness HEART : RRR, no obvious murmurs ABDOMEN: Soft, nontender EXTREMITIES : No LE swelling, no overt left foot tenderness NEUROLOGIC : Coherent, no facial asymmetry, gait and stance not assessed Results & Data Results & Data ([facility]) Vital Signs (Past 12 Hours) Vital Signs Temp Pulse Pulse Resp BP Pulse Ox 05/28/20 19:24 99 H 16 96 05/28/20 17:33 36.4 C L 114 H 20 103/59 L 95 Laboratory Results Laboratory Results WBC 21.98 K/uL (4.8-10.8) H 05/28/20 18:46 RBC 2.15 M/uL (4.2-5.4) L 05/28/20 18:46 Hgb 6.5 g/dL (12.0-16.0) L* 05/28/20 18:46 Hct 21.3 % (37-47) L 05/28/20 18:46 MCV 99.1 fL (80-100) 05/28/20 18:46 MCH 30.2 pg (25-34) 05/28/20 18:46 MCHC 30.5 g/dL (32-36) L 05/28/20 18:46 RDW Std Deviation 88.3 fL (36.4-46.3) H 05/28/20 18:46 RDW Coeff of Radha 25.4 % (11.5-14.5) H 05/28/20 18:46 Plt Count 3039 K/uL (130-400) H* 05/28/20 18:46 MPV 10.5 fL (7.4-10.4) H 05/28/20 18:46 Absolute Nucleated RBC 0.61 K/uL (0-0) H 05/28/20 18:46 Nucleated RBC % (auto) 2.8 % 05/28/20 18:46 Neutrophils % (Manual) 94.7 % 05/28/20 18:46 Lymphocytes % (Manual) 4.4 % 05/28/20 18:46 Basophils % (Manual) 0.9 % 05/28/20 18:46 Neutrophils # (Manual) 20.82 K/uL (1.4-6.5) H 05/28/20 18:46 Total Absolute Neuts 20.82 K/uL (1.4-6.5) H 05/28/20 18:46 Lymphocytes # (Manual) 0.97 K/uL (1.2-3.4) L 05/28/20 18:46 Total Abs Lymphocytes 0.97 K/uL (1.2-3.4) L 05/28/20 18:46 Basophils # (Manual) 0.20 K/uL (0-0.2) 05/28/20 18:46 Hypochromasia Present 05/28/20 18:46 Basophilic Stippling 1+ 05/28/20 18:46 Anisocytosis Present 05/28/20 18:46 PT 11.6 Seconds (9.0-12.0) 05/28/20 18:46 INR 1.1 (0.9-1.1) 05/28/20 18:46 APTT 30.8 Seconds (21.0-31.0) 05/28/20 18:46 PTT Ratio 1.1 05/28/20 18:46 Sodium 142 mmol/L (136-145) 05/28/20 18:46 Potassium 4.7 mmol/L (3.5-5.1) 05/28/20 18:46 Chloride 112 mmol/L (98-107) H 05/28/20 18:46 Carbon Dioxide 21 mmol/L (21-32) 05/28/20 18:46 Anion Gap 9.0 (3-11) 05/28/20 18:46 BUN 26 mg/dl (7-18) H 05/28/20 18:46 Creatinine 1.16 mg/dl (0.6-1.2) 05/28/20 18:46 Est Cr Clr Drug Dosing 30.1 ml/min 05/28/20 18:46 Est GFR ( Amer) 52.6 05/28/20 18:46 Est GFR (Non-Af Amer) 45.4 05/28/20 18:46 BUN/Creatinine Ratio 22.5 (10-20) H 05/28/20 18:46 Glucose 141 mg/dl (70-99) H 05/28/20 18:46 Calcium 9.1 mg/dl (8.5-10.1) 05/28/20 18:46 Magnesium 1.5 mg/dl (1.8-2.4) L 05/28/20 18:46 Total Bilirubin 0.4 mg/dl (0.2-1) 05/28/20 18:46 AST 13 U/L (15-37) L 05/28/20 18:46 ALT 10 U/L (12-78) L 05/28/20 18:46 Alkaline Phosphatase 80 U/L (45-117) 05/28/20 18:46 Total Protein 6.9 gm/dl (6.4-8.2) 05/28/20 18:46 Albumin 3.3 gm/dl (3.4-5.0) L 05/28/20 18:46 Globulin 3.6 gm/dl (2.5-4.0) 05/28/20 18:46 Albumin/Globulin Ratio 0.9 (0.9-2) 05/28/20 18:46 Blood Type A Positive 05/28/20 18:46 Antibody Screen NEGATIVE 05/28/20 18:46 Crossmatch See Detail 05/28/20 18:46 Diagnostic Findings Chest x-ray : Chronic findings as above without acute process. EKG as per my interpretation : Rate 105, sinus tachycardia, RAD, incomplete RBBB, T wave abnormalities lateral leads
[2020-05-28] MEDS ORDERED: OXYCODONE HCL IR 5 MG TAB (IMMEDIATE RELEASE) PO STA (20:18)
--- NOTE | 2020-05-28 20:38 | XRay Report ---
XR chest 1V portable HISTORY: 79 years-old Female sob acute shortness of breath COMPARISON: Chest radiographs 04/28/2020 TECHNIQUE: Portable AP view of the chest FINDINGS: Prior right-sided mastectomy with breast implant. Calcified left hilar lymph nodes are suggested. Car diac silhouette is normal. Mild chronic interstitial coarsening. No pneumothorax, pleural effusion, o vert pulmonary edema or airspace consolidation or pneumonia. Surgical clips project over the right ax illa. Degenerative changes of the shoulders and spine. IMPRESSION: Chronic findings as above without acute process. ACT 112: Negative or not required by law. The above report was generated using voice recognition software. It may contain grammatical, syntax o r spelling errors. Electronically signed by: Jarvis Lewis M.D. 05/28/2020 8:36 PM
[2020-05-28] MEDS ORDERED: ALBUT/IPRATROP 3MG/0.5MG NEB 3 ML VIAL NEB PRN (21:18)
[2020-05-28] MEDS ORDERED: TRAMADOL HCL 50 MG TABLET PO PRN (21:18)
[2020-05-28] MEDS ORDERED: ACETAMINOPHEN 325 MG TAB PO PRN ×2 (21:18)
[2020-05-28] MEDS ORDERED: BISMUTH SUBSALICYLATE SUSP PO PRN (21:18)
[2020-05-28] MEDS ORDERED: PROMETHAZINE HCL 12.5 MG in SODIUM CHLORIDE 0.9% 50 ML IV PRN (21:18)
[2020-05-28] MEDS ORDERED: TEMAZEPAM 15 MG CAPSULE PO PRN (21:18)
[2020-05-28] MEDS ORDERED: TRAZODONE HCL 50 MG TAB PO SCH (21:18)
[2020-05-28] MEDS ORDERED: OXYCODONE HCL IR 5 MG TAB (IMMEDIATE RELEASE) PO PRN (21:18)
[2020-05-28] MEDS: MoRPHine SULFATE CR 15 MG TABCR PO SCH (21:49)
[2020-05-28] MEDS: PANTOprazole 40 MG TAB PO PRN (22:12)
[2020-05-28] MEDS: PREGABALIN 75 MG CAP PO SCH (22:12)
[2020-05-28] MEDS: SUCRALFATE 1 GM TAB PO SCH (22:12)
[2020-05-28] MEDS ORDERED: HYDROXYUREA 500 MG CAP PO SCH (22:30)
[2020-05-28] MEDS ORDERED: Nursing to Pharmacy Communication SCH (22:30)
[2020-05-29 06:31] LABS: Nucleated RBC % (auto) 2.4 %
[2020-05-29 07:02] LABS: Mean Corpuscular Hgb Conc 32.7 g/dL (32-36); Mean Platelet Volume 10.8 fL (7.4-10.4); Platelet Count 1508 K/uL (130-400)
[2020-05-29 07:03] LABS: Hematocrit (blood only) 25.1 % (37-47); Hemoglobin 8.2 g/dL (12.0-16.0); Mean Corpuscular Hemoglobin 31.1 pg (25-34); Mean Corpuscular Volume 95.1 fL (80-100); RDW Coefficient of Variation 22.2 % (11.5-14.5); RDW Standard Deviation 65.7 fL (36.4-46.3); Red Blood Count 2.64 M/uL (4.2-5.4); White Blood Count 21.06 K/uL (4.8-10.8)
[2020-05-29 07:05] LABS: Anisocytosis Present; Basophilic Stippling 1+; Basophils # (auto) 0.11 K/uL (0-0.2); Basophils % (auto) 0.5 %; Eosinophils # (auto) 0.32 K/uL (0-0.5); Eosinophils % (auto) 1.5 %; Immature Granulocytes # (auto) 0.41 K/uL (0.00-0.02); Immature Granulocytes % (auto) 1.9 %; Lymphocytes # (auto) 2.86 K/uL (1.2-3.4); Lymphocytes % (auto) 13.6 %; Monocytes # (auto) 2.54 K/uL (0.11-0.59); Monocytes % (auto) 12.1 %; Neutrophils # (auto) 14.82 K/uL (1.4-6.5); Neutrophils % (auto) 70.4 %; Poikilocytosis Present
--- NOTE | 2020-05-29 08:06 | XRay Report ---
XR foot LT min 3V routine CLINICAL HISTORY: Left foot pain COMPARISON: None. DISCUSSION: There is Achilles insertional spur. No fractures or dislocations are visualized. There ar e no erosive or destructive changes. IMPRESSION: No acute fractures or subluxations identified. ACT 112: Negative or not required by law. Electronically signed by: Sher Lira M.D. 05/29/2020 8:04 AM
[2020-05-29] MEDS ORDERED: FLUTICASONE/VILANTEROL 100/25MCG 14 PUFFS/INHALER INH SCH (09:00)
[2020-05-29] MEDS ORDERED: HYDROXYUREA 500 MG CAP PO SCH (09:00)
[2020-05-29] MEDS: SUCRALFATE 1 GM TAB PO SCH ×3 (09:10→12:50)
[2020-05-29] MEDS: PANTOprazole 40 MG TAB PO PRN (09:10)
[2020-05-29] MEDS: MoRPHine SULFATE CR 15 MG TABCR PO SCH (09:13)
[2020-05-29] MEDS: PREGABALIN 75 MG CAP PO SCH (09:13)
--- NOTE | 2020-05-29 14:02 | Hospitalist Progress Note ---
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 Pain better today Mood/anxiety disorder Stable Continue home medications Moderate to severe protein-calorie malnutrition BMI:17.9 Nutrition consult DVT Px: SCDs Re: H/O GI bleeding, Anemia Code Status Full code Disposition Plan to discharge home today Admission and Anticipated Discharge Date Admission Date: May 28, 2020 Subjective Patient is seen and examined at bedside States feeling tired Offers no other complaints Denies chest pain, shortness of breath, dizziness, nausea, abdominal pain Reports left leg pain is improved Discussed with oncology Dr. Mainor Chavez today Hb 8.2 after blood transfusion Review of Systems Review of Systems: All systems reviewed & are unremarkable except as noted in HPI & below Physical Exam Physical Exam: Physical Exam: Vitals signs as noted above General Appearance:Thin, frail, no apparent distress Head: normocephalic, Atraumatic Eyes: normal inspection, EOMI, +Pallor Neck: supple, Trachea midline Respiratory/Chest: Decreased breath sounds, CTA Chest: R breast Implant Cardiovascular: S1, S2, No murmur Abdomen/GI:Soft, non tender, Bowel sounds present Extremities/Musculoskelatal:normal inspection, no edema Neurologic/Psych:AAOX3, grossly no focal neurological deficits Skin: normal color, warm Results & Data Results & Data ([facility]) Vital Signs (Past 12 Hours) Vital Signs Temp Pulse Pulse Resp BP BP Pulse Ox 05/29/20 11:16 36.9 C 85 17 102/64 96 05/29/20 07:30 36.5 C 82 18 111/56 L 97 05/29/20 07:18 84 05/29/20 04:00 36.6 C 86 18 104/58 L 96 05/29/20 02:16 36.9 C 84 18 103/59 L 96 Laboratory Results Short CBC 05/28/20 05/29/20 Range/Units 18:46 06:01 WBC 21.98 H 21.06 H (4.8-10.8) K/uL Hgb 6.5 L* 8.2 L (12.0-16.0) g/dL Hct 21.3 L 25.1 L (37-47) % Plt Count 3039 H* 1508 H* D (130-400) K/uL BMP 05/28/20 18:46 Sodium 142 Potassium 4.7 Chloride 112 H Carbon Dioxide 21 BUN 26 H Creatinine 1.16 Glucose 141 H Calcium 9.1 Liver Function 05/28/20 Range/Units 18:46 Total Bilirubin 0.4 (0.2-1) mg/dl AST 13 L (15-37) U/L ALT 10 L (12-78) U/L Alkaline Phosphatase 80 (45-117) U/L Albumin 3.3 L (3.4-5.0) gm/dl
--- NOTE | 2020-05-29 14:22 | Discharge Summary ---
Date of Service May 29, 2020 Admission HPI Per Admitting Provider History obtained from patient, and records. Medical history is significant for COPD, ongoing tobacco abuse, hx PVD, hx breast cancer, right, status post surgery, chemoradiation, thrombocythemia on Hydrea therapy, myelodysplastic syndrome, history pulmonary embolism not on anticoagulation significant bleeding risk, chronic anemia (baseline hemoglobin of 8-9), mood/anxiety disorder. Recent confinement last month for symptomatic anemia. Initial hemoglobin 7.1. Positive Hemoccult during confinement. No endoscopy done by GI given negative EGD from March 2020. Last 3 days patient noted increased generalized weakness without chest pain. Shortness of breath on exertion. No fever, no chills, no unusual cough symptoms. No abdominal pain. No black, no bloody stools. Usual left foot pain without recollection of recent trauma. Patient seo intern ordered outpatient blood work which showed hemoglobin of 6. Patient given option by seo intern either to proceed to ER for evaluation versus outpatient blood transfusion at the [facility]. At the ER, 1 unit packed RBC transfused. Medical history as above Surgical History : Cholecystectomy, mastectomy right, hysterectomy, hip surgery Family History : Hypertension Personal/social history past tobacco abuse, no EtOH intake, lives with daughter; patient in the process of moving to assisted living facility. Admission Exam Per Admitting Provider Physical Exam Physical Exam: GENERAL: Pleasant, no respiratory distress, underweight SKIN: Pallor , warm HEENT: Pale palpebral conjunctivae, no ptosis, dry buccal mucosa, edentulous NECK : Supple, no tenderness CHEST : Breast implant mound right, decreased breath sounds, no tenderness HEART : RRR, no obvious murmurs ABDOMEN: Soft, nontender EXTREMITIES : No LE swelling, no overt left foot tenderness NEUROLOGIC : Coherent, no facial asymmetry, gait and stance not assessed Principal Diagnosis Symptomatic Anemia Thrombocytosis Myeloproliferative Disorder Discharge Data Allergies Allergy/AdvReac Type Severity Reaction Status Date / Time latex Allergy Intermediate HIVES Verified 05/28/20 18:44 nickel Allergy Intermediate Hives/Itchi Verified 05/28/20 18:44 ness shellfish derived Allergy Intermediate Hives Verified 05/28/20 18:44 Iodinated Contrast Media AdvReac Mild Diarrhea Verified 05/28/20 18:44 [Iodinated Contrast- Oral and IV Dye] Lobster Allergy Severe HIVES Uncoded 05/28/20 18:44 Consultations 05/28/20 19:37 ED Decision to Admit Stat 05/28/20 21:18 Consult Case Management - Discharge Planning Routine Procedures Performed Foot X ray:No acute fractures or subluxations identified. CXR:Chronic findings as above without acute process. 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 Pain better today Mood/anxiety disorder Stable Continue home medications Moderate to severe protein-calorie malnutrition BMI:17.9 Nutrition consult DVT Px: SCDs Re: H/O GI bleeding, Anemia Code Status Full code Disposition Plan to discharge home today Total Time Total Time Spent Total Time Spent (In Minutes): 40 minutes Total Time Includes: Examination of the Patient, Discharge Planning, Medication Reconciliation, Communication With Other Providers and Other Discharge Plan Discharge Items Patient Disposition: Home - Home Health Services Reason For Visit: SYMPTOMATIC ANEMIA Discharge Diagnosis: Symptomatic Anemia Thrombocytosis Myeloproliferative Disorder Activity: Resume your previous activity Exercise/Sports: Gradually increase as tolerated Non-emergency contact: Primary Care Provider and Oncologist Call non-emergency contact if: you have any medication questions, your symptoms worsen, your pain is not controlled, your pain is worsening, your pain is unusual for you and your pain is concerning for you Follow-up/Referrals: Valerie Chavez MD [Primary Care Provider] - Diet: Heart Healthy Addtl Attending Provider Instructions: Follow up with your Primary Care Physician Dr.Manisha Chavez on Jun 04, 2020 at 11:20 AM Follow-up with your oncologist Dr. Mainor Chavez in 1-2 weeks HARRY Gilbert from [facility] will be by for a visit on Monday, 06/01 at 1:30 pm. Start taking Anagrelide 1mg twice a day as recommended by your Oncologist. Prescription is already sent by your oncologist as outpatient. Seek immediate medical attention if your symptoms reoccur or worsen Pending Studies at Discharge: No Stand-Alone Forms: My [facility], Smoking Cessation Medications and DC Order Prescriptions: New anagrelide 1 mg capsule 1 mg PO BID Qty: 60 RF: 0 Continued ondansetron HCl 8 mg Tablet 8 mg PO Q12H PRN (Reason: Nausea) RF: 0 rizatriptan 10 mg Tablet 10 mg PO .DAILY/UD PRN (Reason: Headache) RF: 0 bismuth subsalicylate [Pepto-Bismol] 262 mg/15 mL Suspension 524 mg PO QID PRN (Reason: GI-UPSET) RF: 0 risedronate [Actonel] 35 mg tablet 35 mg PO WK RF: 0 sucralfate [Carafate] 1 gram tablet 1 gm PO ACHS RF: 0 tramadol 50 mg tablet 50 mg PO QID PRN (Reason: pain) RF: 0 doxycycline hyclate 100 mg capsule 100 mg PO BID RF: 0 morphine 15 mg tablet extended release 15 mg PO Q12H RF: 0 methylprednisolone 4 mg tablets,dose pack 0 mg PO DIRECTED RF: 0 oxycodone 5 mg tablet 5 mg PO DIRECTED PRN (Reason: Breakthrough Pain) RF: 0 temazepam [Restoril] 30 mg Capsule 30 mg PO HS PRN (Reason: Sleep) RF: 0 pantoprazole [Protonix] 40 mg Tablet,Delayed Release (Dr/Ec) 40 mg PO BID PRN (Reason: Gastric Reflux) RF: 0 pregabalin [Lyrica] 75 mg Capsule 75 mg PO BID RF: 0 albuterol sulfate 2.5 mg /3 mL (0.083 %) solution for nebulization 2.5 mg inhalation Q4H PRN (Reason: Wheezing) RF: 0 amitriptyline 75 mg tablet 75 mg PO HS RF: 0 olopatadine 0.1 % drops 1 drp OPB BID PRN (Reason: Itching) RF: 0 fluticasone propion-salmeterol 500-50 mcg/dose blister with device 1 inh INHALATION BID RF: 0 albuterol sulfate [Ventolin HFA] 90 mcg/actuation HFA aerosol inhaler 2 puff INHALATION QID PRN (Reason: Shortness Of Breath Or Wheezing) RF: 0 Spiriva with HandiHaler 18 mcg capsule, w/inhalation device 1 cap INHALATION QAM RF: 0 loperamide 2 mg capsule 2 mg PO Q4H PRN (Reason: Diarrhea) RF: 0 trazodone 50 mg tablet 50 mg PO HS RF: 0 acetaminophen [Tylenol] 325 mg Tablet 325 mg PO QID PRN (Reason: Pain) RF: 0 hydroxyurea 500 mg capsule 500 mg PO DAILY RF: 0 Discharge Orders: Discharge Order (Routine); Ordered 05/29/20 Ordered By: Carl Jackson Admission Data Admit Date/Time: 05/28/20 20:24 Attending Provider: Carl Jackson Admit Provider: Mendel Anand Primary Care Provider: Valerie Chavez Other Providers: Mendel Anand ; [facility] Other Interventions: Discharge Summary Assessment (RN) Last Done: 05/29/20 15:23
--- NOTE | 2020-05-30 09:31 | Electrocardiogram Report ---
Test Reason : Blood Pressure : / mmHG Vent. Rate : 103 BPM Atrial Rate : 103 BPM P-R Int : 130 ms QRS Dur : 096 ms QT Int : 348 ms P-R-T Axes : 080 086 067 degrees QTc Int : 455 ms Sinus tachycardia Incomplete right bundle branch block Nonspecific T wave abnormality Anterior leads Abnormal ECG When compared with ECG of 27-APR-2020 08:41, Premature atrial complexes are no longer Present T wave inversion no longer evident in Lateral leads Confirmed by Caleb Lomeli ([id number]) on 05/30/2020 9:31:12 AM Referred By: Mainor Chavez Confirmed By:Caleb Lomeli
== END 2020-05-29 15:58 | disposition home health service (06) | DRG 811 ==
LOC: ED 17:23 → 2N 20:24 → SUATTDRO 20:24 → 2N 20:58
DX: D46.9 Myelodysplastic syndrome, unspecified; N18.3 Chronic kidney disease, stage 3 (moderate); E43 Unspecified severe protein-calorie malnutrition; Z68.1 Body mass index [BMI] 19.9 or less, adult; D64.9 Anemia, unspecified; J44.9 Chronic obstructive pulmonary disease, unspecified; D47.3 Essential (hemorrhagic) thrombocythemia; Z87.891 Personal history of nicotine dependence; M79.672 Pain in left foot; Z99.81 Dependence on supplemental oxygen

== ENCOUNTER 2020-06-15 12:38 | Inpatient (IN) ==
[2020-06-15] MEDS ORDERED: MAGNESIUM HYDROXIDE SUSP 30 ML UDC PO PRN (13:01)
[2020-06-15] MEDS ORDERED: ALUMINUM/MAGNESIUM SUSP 30 ML UDC PO PRN (13:01)
[2020-06-15] MEDS ORDERED: ACETAMINOPHEN 325 MG TAB PO PRN (13:01)
[2020-06-15] MEDS ORDERED: POLYETHYLENE (MIRALAX) 17 GM PACK PO PRN (13:01)
[2020-06-15] MEDS ORDERED: ONDANSETRON INJ 2 MG/ML 2 ML VIAL IV PRN (13:01)
--- NOTE | 2020-06-15 14:01 | History & Physical Report ---
Date of Service June 15, 2020 Assessment & Plan (1) Cellulitis of great toe, left: (2) Abnormal ankle brachial index (CINDY): This is a 79-year-old female who has significant past medical history of COPD, essential thrombocytosis, JAK2 mutation, MDS, anemia of chronic disease, history of breast CA status post chemo and radiation, history of pulmonary embolism not on oral anticoagulation secondary to bleeding wrist, history of PVD, moderate to severe protein calorie malnutrition, anxiety who presents as a direct admission from PCP secondary to worsening left great toe discoloration and pain x2 to 3 weeks. Admit to med/surg consult vascular Dr. Pascal obtain labs cbc, cmp, mag, pt/inr, ptt, lactate, procalcitonin, mag, blood cultures, CK, TSH obtain IV access and initiate IV antibiotics after blood culture obtained IV Daptomycin and Zosyn ordered NSS 80cc/hr x 2 L MRI of L foot w and w/o contrast to r/o osteomyelitis obtain surface wound culture consult wound nurse/Dr. June along with orthopedics (3) Thrombocytosis: PITO 2 continue anagrelide and hydroxyurea Plot on 06/[address] 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 Chavez upon discharge Pt was seen and examined in collaboration with Dr. Albarran, please see addendum History of Present Illness Chief Complaint: L great toe discoloration and pain x 2-3 weeks. Primary Care Provider: Valerie Chavez MD This is a 79-year-old female who has significant past medical history of COPD, essential thrombocytosis, JAK2 mutation, MDS, anemia of chronic disease, history of breast CA status post chemo and radiation, history of pulmonary embolism not on oral anticoagulation secondary to bleeding wrist, history of PVD, moderate to severe protein calorie malnutrition, anxiety who presents as a direct admission from PCP secondary to worsening left great toe discoloration and pain x2 to 3 weeks. Case was discussed with referring provider Dr. Lane. He initially evaluated the patient 06/12 due to concern for left great toe cellulitis as well as black discoloration. She was started on oral Keflex and was reevaluated today. She has not had improvement in discoloration. Due to concern for vascular disease she was sent for bilateral CINDY. Her left PT was 0.53 and DP 0.31. Her right PT was 0.87 and DP 0.81. No significant stenosis but does indicate vascular disease. Of significance patient has had multiple recent hospitalizations, most recently 05/28-05/29 secondary to symptomatic anemia in setting of MDS requiring 2 units of PRBC. She also had worsening of her essential thrombocytosis and was started on anagrelide along with her hydroxyurea. During that admission she did complain of left great toe pain but at that time there was no erythema. X-ray was performed and was negative. She also was hospitalized 05/01/2029 secondary to colitis and anemia. Of significance she did follow-up with hematology oncology Dr. Chavez on 06/10. Currently she complains of pain to L great toe and being cold. She denies f/c/s, chest pain, sob, dizzines, lightheaded, n/v/d, abdominal pain. Overall poor appetite at baseline. Allergies Allergy/AdvReac Type Severity Reaction Status Date / Time latex Allergy Intermediate HIVES Verified 05/28/20 18:44 nickel Allergy Intermediate Hives/Itchi Verified 05/28/20 18:44 ness shellfish derived Allergy Intermediate Hives Verified 05/28/20 18:44 Iodinated Contrast Media AdvReac Mild Diarrhea Verified 05/28/20 18:44 [Iodinated Contrast- Oral and IV Dye] Lobster Allergy Severe HIVES Uncoded 05/28/20 18:44 Home Medications Home Medications Medication Instructions Recorded Confirmed Type pantoprazole [Protonix] 40 mg PO BID 06/06/18 06/15/20 History pregabalin [Lyrica] 75 mg PO BID 06/06/18 06/15/20 History temazepam [Restoril] 30 mg PO HS PRN 06/06/18 06/15/20 History Spiriva with HandiHaler 1 cap INHALATION QAM 12/17/19 06/15/20 History albuterol sulfate 2.5 mg INHALATION Q4H PRN 12/17/19 06/15/20 History albuterol sulfate [Ventolin HFA] 2 puff INHALATION QID PRN 12/17/19 06/15/20 History amitriptyline 75 mg PO HS 12/17/19 06/15/20 History fluticasone propion-salmeterol 1 inh INHALATION BID 12/17/19 06/15/20 History loperamide 2 mg PO Q4H PRN 12/17/19 06/15/20 History olopatadine 1 drp OPB BID PRN 12/17/19 06/15/20 History trazodone 50 mg PO HS 12/17/19 06/15/20 History acetaminophen [Tylenol] 325 mg PO QID PRN 01/23/20 06/15/20 History bismuth subsalicylate 524 mg PO QID PRN 04/01/20 06/15/20 History [Pepto-Bismol] ondansetron HCl 8 mg PO Q12H PRN 04/01/20 06/15/20 History risedronate [Actonel] 35 mg PO WK 04/01/20 06/15/20 History rizatriptan 10 mg PO .DAILY/UD PRN 04/01/20 06/15/20 History sucralfate [Carafate] 1 gm PO ACHS 04/01/20 06/15/20 History hydroxyurea 500 mg PO DAILY 04/22/20 06/15/20 History methylprednisolone 0 mg PO DIRECTED 05/28/20 06/15/20 History morphine 15 mg PO Q12H 05/28/20 06/15/20 History oxycodone 5 mg PO Q8H PRN 05/28/20 06/15/20 History anagrelide 1 mg PO BID #60 cap 05/29/20 06/15/20 Rx allopurinol 100 mg PO DAILY 06/15/20 06/15/20 History aspirin [Aspir-81] 81 mg PO DAILY 06/15/20 06/15/20 History Past Med/Surg History Medical History CKD (chronic kidney disease), stage III COPD (chronic obstructive pulmonary disease) History of breast cancer chemo History of MRSA infection "left hip wound" History of peptic ulcer disease IBS (irritable bowel syndrome) Diarrhea predominant ; follows with GI Leukocytosis MDS/MPN (myelodysplastic/myeloproliferative neoplasms) Myelodysplastic syndrome Pelvic fracture 12/2018 pelvic fracture and monitor Pulmonary emboli 12/2019 just monitored Pulmonary nodules CT 01/23/20: 5 mm RML 3 mm RML 3 mm DEVEN 4 mm RUL S/P ORIF (open reduction internal fixation) fracture fracture hip x 5 and then had ORIF Subcapsular hemorrhage of spleen Thrombocytosis Surgical History H/O mastectomy modified radical masectomy H/O: hysterectomy History of cholecystectomy Hx of esophagogastroduodenoscopy Status post mastectomy "modified right mastectomy 1990" Status post total hip replacement, left had after ORIF hip Family History Mother Heart disease Social History Smoking Status: Current some day smoker Tobacco Type: Cigarettes packs per day: 1; Second Hand Exposure: No; Hx Alcohol Use: No Hx Substance Use: No Preferred Language: South African Communication Ability: Effective 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 Beliefs That Will Affect Care: None marital status: / Current Living Situation: Family How many Children do You have: 2 Feels Safe at Home: Yes Assistive Devices: Denture - Upper, Denture - Lower and Oxygen - at Night Review of Systems Review of Systems: All systems reviewed & are unremarkable except as noted in HPI & below Physical Exam Physical Exam: Constitutional: Thin, petite, F, sitting up at bedside, vitals as above, NAD,pleasant, conversing easily Head: Normocephalic, Atraumatic Eyes: PERRL, conjunctivae normal, anicteric sclerae ENMT: external ear and nose normal, oropharynx normal Neck: trachea midline, no thyromegaly normal visual inspection Respiratory: normal respiratory effort, lungs clear to auscultation, no wheeze, rales, rhonchi. Normal insp/exp effort, no accessory muscle use Cardiovascular: RRR, no murmur, no edema Vessels: no JVD or carotid bruit Chest: normal inspection of chest Abdomen: normal bowel sounds, soft, nontender, no hepatosplenomegaly Musculoskeletal: no cyanosis or clubbing, extremities motor strength 5/5 Skin: no rashes, warm and dry normal turgor , L great toe with lateral erythema and eschar noted, b/l pedal pulse R> L + 1 Neurologic: PERRL, EOMI, accommodation nl, no face palsy, no dysarthria CN's II-XI intact bilaterally and moves all extremities Psychiatric: A+Ox3, euthymic affect Lymphatic: no cervical or axillary lymphadenopathy : deferred Results & Data Results & Data ([facility]) Vital Signs (Past 12 Hours) Vital Signs Temp Pulse Resp BP Pulse Ox 36.6 C 97 H 18 112/69 91 06/15/20 16:08 06/15/20 16:08 06/15/20 16:08 06/15/20 16:08 06/15/20 16:08 Laboratory Results Pending Diagnostic Findings CINDY 06/12/2020: FINDINGS: Segmental blood pressures: Right: Brachial-104 (index); posterior tibial-90 (0.87); dorsalis pedis-84 (0.81). Left: Brachial-not recorded; posterior tibial-55 (0.53); dorsalis pedis-32 (0.31). Mild to moderate atherosclerotic plaque throughout the left lower extremity. Triphasic waveforms noted within the common femoral, femoris, superficial femo ral, popliteal, posterior tibial, peroneal and proximal anterior tibial arteries. Biphasic waveforms in the distal anterior tibial artery. Biphasic waveforms are noted within the dorsalis pedis artery. No arterial occlusion or elevated peak systolic velocities. IMPRESSION: 1. No arterial occlusion or elevated peak systolic velocities to suggest high- grade stenosis. 2. Atherosclerotic vascular disease with biphasic waveforms within the lower leg. Code Status & VTE Plan VTE Prophylaxis Plan VTE Prophylaxis will be ordered: No Supervising Physician Co-Signing Physician Notes I, Dr. Hector Albarran, have seen and examined the patient with physician recruitment and outreach assistant and would like to comment that On Physical Exam General: no acute distress Lungs: clear to auscultation bilaterally Heart: Regular rate Abdomen: soft,nontender, positive bowel sounds Extremities: moves all extremities, the left foot great toe with eschar on side of the toe and also some serosanguinous drainage from top of nail bed Assessment and Plan -This is a 79 year old female as direct admission on 06/15/2020 from primary care doctor with several weeks of pain of left great toe and only recently started on oral antibiotic as outpatient of [facility] on Monday06/12/2020. given t he darken eschar on the toe that patient may be at risk of osteomyelitis or gangrene, at minimal this is complicated cellulitis given the skin changes. the plan is start broad spectrum IV antibiotics and obtain MRI of the left foot and follow the superficial toe wound culture and blood culture. patient will need to be evaluated by multi-specialty team of vascular service, orthopedic service, and wound care service if any procedures needed to explore the vascular flow or debridement or toe amputation. -patient also known to have anemia in the past requiring blood transfusions likely because of problems with hematopoiesis rather than from acute blood loss. she signed the transfusion consent form if needed during this hospitalization. patient has acute kidney injury based on current and past labs and therefore the heparin subcutaneous dosing will be renally dosed 5000 units subcutaneous q12 hours. give IV fluids for the renal function, monitor creatinine kinase -give magnesium supplementation -agree with the assessment and plans as documented by physician recruitment and outreach assistant for other health issues -Dr. Marsh will be hospitalist attending for the patient on 06/16/2020 (1) Anemia Anemia type: unspecified type Qualified Code(s): D64.9 - Anemia, unspecified (2) COPD (chronic obstructive pulmonary disease) COPD type: unspecified COPD Qualified Code(s): J44.9 - Chronic obstructive pulmonary disease, unspecified
[2020-06-15] MEDS ORDERED: TEMAZEPAM 15 MG CAPSULE PO PRN (14:05)
[2020-06-15] MEDS ORDERED: ALBUTEROL 0.083% NEBU SOLN 3 ML VIAL INH PRN (14:05)
[2020-06-15] MEDS ORDERED: PATIENT'S HEIGHT AND/OR WEIGHT NEEDED SCH (15:15)
[2020-06-15] MEDS ORDERED: PIPERACILL/TAZOBAC CONSULT ACTIVE PRN (15:59)
[2020-06-15] MEDS ORDERED: PATIENT'S HEIGHT AND/OR WEIGHT NEEDED STA (16:03)
[2020-06-15] MEDS ORDERED: PIPERACILLIN/TAZOBACTAM 3.375 GM in DEXTROSE 5% 100 ML IV ONE (16:15)
[2020-06-15] MEDS: MoRPHine SULFATE CR 15 MG TABCR PO SCH (16:43)
[2020-06-15] MEDS: SODIUM CHLORIDE 0.9% 1000ML 1,000 ML IV SCH (16:51)
[2020-06-15 17:00] LABS: INR 1.1 (0.9-1.1); Partial Thromboplastin Ratio 1.1; Partial Thromboplastin Time 29.4 Seconds (21.0-31.0); Prothrombin Time 11.4 Seconds (9.0-12.0)
[2020-06-15 17:06] LABS: Alanine Aminotransferase 14 U/L (12-78); Albumin Level 3.3 gm/dl (3.4-5.0); Aspartate Aminotransferase 25 U/L (15-37); BUN Creatinine Ratio 21.9 (10-20); Blood Urea Nitrogen 40 mg/dl (7-18); C Reactive Protein 1.55 mg/dl (0-0.29); Calcium 8.9 mg/dl (8.5-10.1); Carbon Dioxide 22 mmol/L (21-32); Chloride 111 mmol/L (98-107); Est GFR (African American) 30.1; Glucose 95 mg/dl (70-99); Magnesium 1.7 mg/dl (1.8-2.4); Sodium 139 mmol/L (136-145)
[2020-06-15 17:15] LABS: Alkaline Phosphatase 80 U/L (45-117); Bilirubin,Total 0.3 mg/dl (0.2-1); Creatine Kinase 146 U/L (26-192); Globulin 3.4 gm/dl (2.5-4.0); Total Protein 6.7 gm/dl (6.4-8.2)
[2020-06-15] MEDS ORDERED: MAGNESIUM SULFATE / D5W 1 GM/100 ML BAG IV ONE (17:15)
[2020-06-15 17:22] LABS: ALC (manual) 3.63 K/uL (1.2-3.4); ANC (manual) 8.95 K/uL (1.4-6.5); Anisocytosis Present; Basophilic Stippling 1+; Basophils # (manual) 0.69 K/uL (0-0.2); Basophils % (manual) 4.3 %; Echinocytes 1+; Eosinophils # (manual) 0.84 K/uL (0-0.5); Eosinophils % (manual) 5.2 %; Giant Platelets 2+; Hematocrit (blood only) 27.3 % (37-47); Hypochromasia Present; Lymphocytes # (manual) 3.63 K/uL (1.2-3.4); Lymphocytes % (manual) 22.6 %; Mean Corpuscular Hemoglobin 29.5 pg (25-34); Mean Corpuscular Hgb Conc 29.3 g/dL (32-36); Mean Corpuscular Volume 100.7 fL (80-100); Mean Platelet Volume 12.5 fL (7.4-10.4); Monocytes # (manual) 1.81 K/uL (0.11-0.59); Monocytes % (manual) 11.3 %; Myelocytes # (manual) 0.14 K/uL (0-0); Myelocytes % (manual) 0.9 %; Neutrophils # (manual) 8.95 K/uL (1.4-6.5); Neutrophils % (manual) 55.7 %; Nucleated RBC # (auto) 0.25 K/uL (0-0); Nucleated RBC % (auto) 1.6 %; Platelet Count 737 K/uL (130-400); Poikilocytosis Present; RDW Coefficient of Variation 23.8 % (11.5-14.5); RDW Standard Deviation 82.6 fL (36.4-46.3); Red Blood Count 2.71 M/uL (4.2-5.4); White Blood Count 16.06 K/uL (4.8-10.8)
[2020-06-15 17:26] LABS: T4 Free Thyroxine 0.94 ng/dl (0.8-1.6)
[2020-06-15] MEDS: SUCRALFATE 1 GM TAB PO SCH ×2 (17:56→21:58)
[2020-06-15] MEDS ORDERED: DAPTOmycin 300 MG in SYRINGE 0 ML IV SCH (18:00)
[2020-06-15] MEDS ORDERED: SODIUM CHLORIDE 0.9% 1000ML 1,000 ML IV ONE (19:10)
[2020-06-15] MEDS: HEPARIN SOD 5,000 UNIT/0.5 ML VIAL SQ SCH (21:54)
[2020-06-15] MEDS: HYDROXYUREA 500 MG CAP PO SCH (21:58)
[2020-06-15] MEDS: MAGNESIUM OXIDE 400 MG TAB PO SCH (21:58)
[2020-06-15] MEDS: AMITRIPTYLINE HCL 25 MG TAB PO SCH (21:58)
[2020-06-15] MEDS: PANTOprazole 40 MG TAB PO PRN (21:58)
[2020-06-15] MEDS: PREGABALIN 75 MG CAP PO SCH (21:58)
[2020-06-15] MEDS: traZODone HCL 50 MG TAB PO SCH (21:58)
[2020-06-15] MEDS: TEMAZEPAM 15 MG CAPSULE PO SCH (21:58)
[2020-06-15] MEDS: ANAGRELIDE 1 MG PO SCH (21:59)
[2020-06-16] MEDS ORDERED: PIPERACILLIN/TAZOBACTAM 3.375 GM in DEXTROSE 5% 100 ML IV SCH (02:00)
[2020-06-16] MEDS: SODIUM CHLORIDE 0.9% 1000ML 1,000 ML IV SCH (02:22)
[2020-06-16 06:09] LABS: Albumin Level 2.6 gm/dl (3.4-5.0); BUN Creatinine Ratio 25.5 (10-20); Calcium 8.1 mg/dl (8.5-10.1); Creatinine Clr Calc Pharmacy 25.3 ml/min; Est GFR (African American) 42.3; Est GFR (Non-African American) 36.5; Potassium 4.9 mmol/L (3.5-5.1)
[2020-06-16 06:16] LABS: Albumin Globulin Ratio 0.9 (0.9-2); Bilirubin,Total 0.3 mg/dl (0.2-1); Globulin 2.8 gm/dl (2.5-4.0); Hemoglobin 7.2 g/dL (12.0-16.0); Mean Corpuscular Hemoglobin 30.4 pg (25-34); Mean Corpuscular Volume 101.3 fL (80-100); Mean Platelet Volume 12.4 fL (7.4-10.4); Nucleated RBC # (auto) 0.15 K/uL (0-0); Platelet Count 710 K/uL (130-400); RDW Coefficient of Variation 23.4 % (11.5-14.5); RDW Standard Deviation 82.3 fL (36.4-46.3); Red Blood Count 2.37 M/uL (4.2-5.4); Total Protein 5.4 gm/dl (6.4-8.2); White Blood Count 14.99 K/uL (4.8-10.8)
[2020-06-16 06:17] LABS: Anisocytosis Present; Basophilic Stippling 1+; Giant Platelets 1+; Hypochromasia Present; Polychromasia 1+
[2020-06-16 06:33] LABS: ALC (manual) 3.75 K/uL (1.2-3.4); ANC (manual) 8.54 K/uL (1.4-6.5); Basophils # (manual) 0.45 K/uL (0-0.2); Eosinophils # (manual) 1.35 K/uL (0-0.5); Lymphocytes # (manual) 3.75 K/uL (1.2-3.4); Neutrophils # (manual) 8.54 K/uL (1.4-6.5)
--- NOTE | 2020-06-16 07:58 | Magnetic Resonance Report ---
MRI OF THE LEFT FOREFOOT NO CONTRAST CLINICAL HISTORY: Left great toe wound. Possible osteomyelitis. COMPARISON STUDY: Left foot x-ray performed 05/28/2020 FINDINGS: Images were obtained in the axial, sagittal, and coronal planes. The examination is compromised due t o patient motion. There is pronounced dorsal soft tissue edema. There are curvilinear signal abnormalities within the subchondral bone involving first through fourth metatarsal heads. The findings are indicative of avascular necrosis. There is T2 edema involving the first, second and third distal phalanges. The findings are indicative of a nonspecific osteitis. There is no corresponding T1 marrow edema to indicate acute osteomyelitis . IMPRESSION: 1. Motion degraded study 2. Dorsal soft tissue edema 3. 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 Nonspecific osteitis involving the first second and third distal phalanges. No evidence of osteomy elitis. ACT 112: Negative or not required by law. Electronically signed by: Sher Lira M.D. 06/16/2020 7:57 AM
[2020-06-16] MEDS: HEPARIN SOD 5,000 UNIT/0.5 ML VIAL SQ SCH ×2 (08:35→20:05)
[2020-06-16] MEDS: ASPIRIN 81 MG ECTAB PO SCH (08:36)
[2020-06-16] MEDS: MAGNESIUM OXIDE 400 MG TAB PO SCH (08:36)
[2020-06-16] MEDS: SUCRALFATE 1 GM TAB PO SCH ×4 (08:36→20:04)
[2020-06-16] MEDS: allopurinoL 100 MG TAB PO SCH (08:36)
[2020-06-16] MEDS: PANTOprazole 40 MG TAB PO PRN (08:36)
[2020-06-16] MEDS: FLUTICASONE/VILANTEROL 100/25MCG 14 PUFFS/INHALER INH SCH (08:37)
[2020-06-16] MEDS: ANAGRELIDE 1 MG PO SCH ×2 (08:37→20:05)
[2020-06-16] MEDS: UMECLIDINIUM BROMIDE 62.5MCG/BLISTER 7 PUFFS/INHALER INH SCH (08:37)
[2020-06-16] MEDS: PREGABALIN 75 MG CAP PO SCH ×2 (08:42→20:04)
[2020-06-16] MEDS: MoRPHine SULFATE CR 15 MG TABCR PO SCH ×2 (08:43→20:04)
[2020-06-16] MEDS ORDERED: HYDROXYUREA 500 MG CAP PO SCH (09:00)
--- NOTE | 2020-06-16 09:46 | Consultation ---
Date of Consultation June 16, 2020 Assessment & Plan (1) Embolic disease of toe: Pt's L great toe has the appearance of a distal embolization. Pt also seen by Dr Pascal. Would recommend pt have CTA chest/abd/pelvis as well as echo, but pt with severe CKD and iodine allergery. Currently recommend pt undergo echocardiogram and aortoiliac US to further eval for possible embolization source. Will make further recommendations after testing. Patient was seen, examined, and chart reviewed. Agree with exam and treatment plan of the Vascular PA. History of Present Illness Reason for Consultation: LLE great toe embolization Attending Physician: Gonsalo Marsh MD History of Present Illness 79 yo f with multiple medical problems, including CKD, chronic anemia, myelodysplastic syndrome, PE, breast ca, bleeding peptic ulcers, COPD, IBS, thrombocytosis, and recently with splenic infarct, admitted with anemia and necrosis of l great toe, seen in consultation today for possible PAD. Pt states does not ambulate much, but denies calf claudication. Noted L great toe beginning to turn black last month, which has progressed to present state. Denies hx of irregular heart rhythm. Admits pain in the toe, fatigue, malaise. Denies BALL, fever, chest pain, SOB, abd pain, N/V, rest pain other than L great toe, palpitations, other complaints. Pt is a very poor historian LLE arterial US demonstrates mild/moderate diffuse disease. Allergies Allergy/AdvReac Type Severity Reaction Status Date / Time latex Allergy Intermediate HIVES Verified 05/28/20 18:44 nickel Allergy Intermediate Hives/Itchi Verified 05/28/20 18:44 ness shellfish derived Allergy Intermediate Hives Verified 05/28/20 18:44 Iodinated Contrast Media AdvReac Mild Diarrhea Verified 05/28/20 18:44 [Iodinated Contrast- Oral and IV Dye] Lobster Allergy Severe HIVES Uncoded 05/28/20 18:44 Home Medications Home Medications Medication Instructions Recorded Confirmed Type pantoprazole [Protonix] 40 mg PO BID 06/06/18 06/15/20 History pregabalin [Lyrica] 75 mg PO BID 06/06/18 06/15/20 History temazepam [Restoril] 30 mg PO HS PRN 06/06/18 06/15/20 History Spiriva with HandiHaler 1 cap INHALATION QAM 12/17/19 06/15/20 History albuterol sulfate 2.5 mg INHALATION Q4H PRN 12/17/19 06/15/20 History albuterol sulfate [Ventolin HFA] 2 puff INHALATION QID PRN 12/17/19 06/15/20 History amitriptyline 75 mg PO HS 12/17/19 06/15/20 History fluticasone propion-salmeterol 1 inh INHALATION BID 12/17/19 06/15/20 History loperamide 2 mg PO Q4H PRN 12/17/19 06/15/20 History olopatadine 1 drp OPB BID PRN 12/17/19 06/15/20 History trazodone 50 mg PO HS 12/17/19 06/15/20 History acetaminophen [Tylenol] 325 mg PO QID PRN 01/23/20 06/15/20 History bismuth subsalicylate 524 mg PO QID PRN 04/01/20 06/15/20 History [Pepto-Bismol] ondansetron HCl 8 mg PO Q12H PRN 04/01/20 06/15/20 History risedronate [Actonel] 35 mg PO WK 04/01/20 06/15/20 History rizatriptan 10 mg PO .DAILY/UD PRN 04/01/20 06/15/20 History sucralfate [Carafate] 1 gm PO ACHS 04/01/20 06/15/20 History hydroxyurea 500 mg PO DAILY 04/22/20 06/15/20 History methylprednisolone 0 mg PO DIRECTED 05/28/20 06/15/20 History morphine 15 mg PO Q12H 05/28/20 06/15/20 History oxycodone 5 mg PO Q8H PRN 05/28/20 06/15/20 History anagrelide 1 mg PO BID #60 cap 05/29/20 06/15/20 Rx allopurinol 100 mg PO DAILY 06/15/20 06/15/20 History aspirin [Aspir-81] 81 mg PO DAILY 06/15/20 06/15/20 History Patient History Medical History CKD (chronic kidney disease), stage III COPD (chronic obstructive pulmonary disease) Embolic disease of toe History of breast cancer chemo History of MRSA infection "left hip wound" History of peptic ulcer disease IBS (irritable bowel syndrome) Diarrhea predominant ; follows with GI Leukocytosis MDS/MPN (myelodysplastic/myeloproliferative neoplasms) Myelodysplastic syndrome Pelvic fracture 12/2018 pelvic fracture and monitor Pulmonary emboli 12/2019 just monitored Pulmonary nodules CT 01/23/20: 5 mm RML 3 mm RML 3 mm DEVEN 4 mm RUL S/P ORIF (open reduction internal fixation) fracture fracture hip x 5 and then had ORIF Subcapsular hemorrhage of spleen Thrombocytosis Surgical History H/O mastectomy modified radical masectomy H/O: hysterectomy History of cholecystectomy Hx of esophagogastroduodenoscopy Status post mastectomy "modified right mastectomy 1990" Status post total hip replacement, left had after ORIF hip Family History Mother Heart disease Social History Smoking Status: Current some day smoker Tobacco Type: Cigarettes packs per day: 1; Second Hand Exposure: No; Do You Dip or Chew Tobacco: No; Tobacco Cessation Education Requested by Patient: No Hx Alcohol Use: No Hx Substance Use: No Preferred Language: [place] Communication Ability: Effective 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 Beliefs That Will Affect Care: None marital status: / Current Living Situation: Family How many Children do You have: 2 Other Information That Helps Us Care for You: No Feels Safe at Home: Yes Safety Concerns: Feels Safe At This Time Assistive Devices: Walker Review of Systems Review of Systems: All systems reviewed & are unremarkable except as noted in HPI & below Physical Exam Constitutional: WD/WN, vitals as above + frail appearing, + malnourished and + underweight Eyes: PERRL, conjunctivae normal, anicteric sclerae ENMT: Ears: no hearing impairment Neck: trachea midline Respiratory: normal respiratory effort Auscultation: lungs clear to auscultation bilaterally and + diminished lung sounds Cardiovascular: Rate/Rhythm: regular rate and regular rhythm Vessels: posterior tibial pulses present (+1 BLE), dorsalis pedis pulses present (+1 LLE, +2 RLE), brachial pulses present and radial pulses present; + abnormal peripheral pulses Extremities: normal capillary refill (except L distal/lateral great toe); no edema Gastrointestinal (Abdomen): normal bowel sounds, soft, nontender, no hepatosplenomegaly Skin: + eschar (L distal/lateral great toe. cap refill maintained just prox) Neurologic: awake (but falls asleep easily); + does not move all extremities and no focal motor deficits Psychiatric: Orientation: alert, oriented to person and oriented to place Eye Contact: + poor eye contact Affect: + flat affect Results & Data ([facility]) Vital Signs (Past 12 Hours) Vital Signs Temp Pulse Resp BP Pulse Ox 06/16/20 08:46 36.6 C 95 H 16 93/58 L 91 06/15/20 23:39 36.6 C 99 H 16 92/56 L 92
[2020-06-16] MEDS: PIPERACILLIN/TAZOBACTAM 3.375 GM in DEXTROSE 5% 100 ML IV SCH ×3 (10:32→21:26)
--- NOTE | 2020-06-16 12:47 | Wound Consultation ---
Date of Consultation June 16, 2020 Assessment & Plan (1) Ischemic ulcer: (2) Cellulitis of great toe, left: Ischemic ulcer of the left great toe with cellulitis. No debridement required. Recommend painting the wound with betadine daily. Continue abx per primary service and pending culture sensitivities. Appreciate vascular consult. Await input from ortho. Primary goal is wound healing. Thanks for the consult. Will plan to follow along as needed. The patient was seen today, and note dictated by Suzette DECKER. History of Present Illness Reason for Consultation: wound of left great toe Attending Physician: Gonsalo Marsh MD History of Present Illness 79 year old female admitted for wound of the left great toe which has been present for approximately 2-3 weeks. Patient reports the toe is painful. Blood and wound cultures are pending. 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 Orthopedic consult is pending. Patient has a hx of PVD, and ABIs were noted to be low on admission. Vascular consult with Dr. Pascal placed. Per Dr. Pascal, no surgical intervention is planned at this time, and he recommends allowing the wound to demarcate prior to any intervention. The patient is not a diabetic. 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 Allergies Allergy/AdvReac Type Severity Reaction Status Date / Time latex Allergy Intermediate HIVES Verified 05/28/20 18:44 nickel Allergy Intermediate Hives/Itchi Verified 05/28/20 18:44 ness shellfish derived Allergy Intermediate Hives Verified 05/28/20 18:44 Iodinated Contrast Media AdvReac Mild Diarrhea Verified 05/28/20 18:44 [Iodinated Contrast- Oral and IV Dye] Lobster Allergy Severe HIVES Uncoded 05/28/20 18:44 Home Medications Home Medications Medication Instructions Recorded Confirmed Type pantoprazole [Protonix] 40 mg PO BID 06/06/18 06/15/20 History pregabalin [Lyrica] 75 mg PO BID 06/06/18 06/15/20 History temazepam [Restoril] 30 mg PO HS PRN 06/06/18 06/15/20 History Spiriva with HandiHaler 1 cap INHALATION QAM 12/17/19 06/15/20 History albuterol sulfate 2.5 mg INHALATION Q4H PRN 12/17/19 06/15/20 History albuterol sulfate [Ventolin HFA] 2 puff INHALATION QID PRN 12/17/19 06/15/20 History amitriptyline 75 mg PO HS 12/17/19 06/15/20 History fluticasone propion-salmeterol 1 inh INHALATION BID 12/17/19 06/15/20 History loperamide 2 mg PO Q4H PRN 12/17/19 06/15/20 History olopatadine 1 drp OPB BID PRN 12/17/19 06/15/20 History trazodone 50 mg PO HS 12/17/19 06/15/20 History acetaminophen [Tylenol] 325 mg PO QID PRN 01/23/20 06/15/20 History bismuth subsalicylate 524 mg PO QID PRN 04/01/20 06/15/20 History [Pepto-Bismol] ondansetron HCl 8 mg PO Q12H PRN 04/01/20 06/15/20 History risedronate [Actonel] 35 mg PO WK 04/01/20 06/15/20 History rizatriptan 10 mg PO .DAILY/UD PRN 04/01/20 06/15/20 History sucralfate [Carafate] 1 gm PO ACHS 04/01/20 06/15/20 History hydroxyurea 500 mg PO DAILY 04/22/20 06/15/20 History methylprednisolone 0 mg PO DIRECTED 05/28/20 06/15/20 History morphine 15 mg PO Q12H 05/28/20 06/15/20 History oxycodone 5 mg PO Q8H PRN 05/28/20 06/15/20 History anagrelide 1 mg PO BID #60 cap 05/29/20 06/15/20 Rx allopurinol 100 mg PO DAILY 06/15/20 06/15/20 History aspirin [Aspir-81] 81 mg PO DAILY 06/15/20 06/15/20 History Patient History Medical History (Updated 06/16/20 @ 12:50 by BRIANNE Randolph) CKD (chronic kidney disease), stage III COPD (chronic obstructive pulmonary disease) Embolic disease of toe History of breast cancer chemo History of MRSA infection "left hip wound" History of peptic ulcer disease IBS (irritable bowel syndrome) Diarrhea predominant ; follows with GI Leukocytosis MDS/MPN (myelodysplastic/myeloproliferative neoplasms) Myelodysplastic syndrome Pelvic fracture 12/2018 pelvic fracture and monitor Pulmonary emboli 12/2019 just monitored Pulmonary nodules CT 01/23/20: 5 mm RML 3 mm RML 3 mm DEVEN 4 mm RUL S/P ORIF (open reduction internal fixation) fracture fracture hip x 5 and then had ORIF Subcapsular hemorrhage of spleen Thrombocytosis Surgical History H/O mastectomy modified radical masectomy H/O: hysterectomy History of cholecystectomy Hx of esophagogastroduodenoscopy Status post mastectomy "modified right mastectomy 1990" Status post total hip replacement, left had after ORIF hip Family History Mother Heart disease Social History Smoking Status: Current some day smoker Tobacco Type: Cigarettes packs per day: 1; Second Hand Exposure: No; Do You Dip or Chew Tobacco: No; Tobacco Cessation Education Requested by Patient: No Hx Alcohol Use: No Hx Substance Use: No Preferred Language: Kazakh Communication Ability: Effective Human Resources Partner Required: No Beliefs That Will Affect Care: None marital status: / Current Living Situation: Family How many Children do You have: 2 Other Information That Helps Us Care for You: No Feels Safe at Home: Yes Safety Concerns: Feels Safe At This Time Assistive Devices: Walker Review of Systems Review of Systems: All systems reviewed & are unremarkable except as noted in Subjective Physical Exam Physical Exam: Temp Pulse Resp BP Pulse Ox 36.6 C 95 H 16 93/58 L 91 06/16/20 08:46 06/16/20 08:46 06/16/20 08:46 06/16/20 08:46 06/16/20 08:46 Wound of the left medial great toe measures 2.7 x 3cm in size. Wound is covered in eschar. No odor or drainage present. Periwound is erythematous. Constitutional: + thin No acute distress Neck: normal visual inspection Respiratory: normal respiratory effort Auscultation: + wheezes (expiratory wheezes noted on the left ) Cardiovascular: RRR, no murmur, no edema Gastrointestinal (Abdomen): Inspection/Auscultation: normal bowel sounds Percussion/Palpation: abdomen soft Psychiatric: A+Ox3, euthymic affect Results & Data ([facility]) Vital Signs (Past 12 Hours) Vital Signs Temp Pulse Resp BP Pulse Ox 06/16/20 08:46 36.6 C 95 H 16 93/58 L 91 PG Care Time/CCT Total # of Minutes Spent Total Time Spent with Patient: Total time spent is greater than 50% in coordination of care (as documented) at patient's floor/unit and/or counseling patient: Coding Level of Care Code 85599 Initial Inpt Care Lvl 3 Diagnoses Ischemic ulcer L98.499 Non-pressure ulcer stage: unspecified non-pressure ulcer stage Cellulitis of great toe, left L03.032 (1) Ischemic ulcer Non-pressure ulcer stage: unspecified non-pressure ulcer stage Qualified Code(s): L98.499 - Non-pressure chronic ulcer of skin of other sites with unspecified severity
--- NOTE | 2020-06-16 14:13 | Electrocardiogram Report ---
Test Reason : Blood Pressure : / mmHG Vent. Rate : 096 BPM Atrial Rate : 096 BPM P-R Int : 148 ms QRS Dur : 096 ms QT Int : 396 ms P-R-T Axes : 082 083 063 degrees QTc Int : 500 ms Normal sinus rhythm Incomplete right bundle branch block T wave abnormality, consider anterior ischemia Prolonged QT Abnormal ECG When compared with ECG of 28-MAY-2020 17:53, T wave changes now present Confirmed by Vance Tim ([id number]) on 06/16/2020 2:13:32 PM Referred By: Vivek Lane Confirmed By:Vance Tim
--- NOTE | 2020-06-16 15:06 | Ultrasound Report ---
AORTOILIAC ULTRASOUND CLINICAL HISTORY: Toe embolization. COMPARISON STUDY: CT of the abdomen with contrast February 03, 2020. CT of the abdomen and pelvis without contrast April 28, 2020. TECHNIQUE: Grayscale, color and duplex Doppler sonography of the aorta, bilateral common iliac and bi lateral external iliac arteries was performed. FINDINGS: There is extensive atherosclerotic plaque within the abdominal aorta. The caliber of the ab dominal aorta is normal. Velocities within the abdominal aorta are within normal limits. No elevated velocities within the right iliac arteries are noted. Note is made of several foci of elevated veloci ties within the left iliac arteries, either within the common iliac or external iliac arteries. These range up to 287 cm/s. No additional elevated velocities are identified on this examination. IMPRESSION: 1. Extensive aortoiliac atherosclerotic plaque. Normal caliber abdominal aorta. No elevated velocitie s within the abdominal aorta. 2. Two areas of elevated velocities within the left common iliac or external iliac arteries which sug gest hemodynamically significant stenoses. ACT 112: Negative or not required by law. Electronically signed by: Constantin Richter M.D. 06/16/2020 3:05 PM
--- NOTE | 2020-06-16 18:21 | Orthopedic Consultation ---
Date of Consultation June 16, 2020 Assessment & Plan (1) Embolic disease of toe: MRI shows no osteomyelitis at this time. Osteitis noted at the first second and third distal phalanges. Avascular necrosis from 1 through 4 of the metatarsal heads. No urgent debridement needed at this time. I have spoken to Dr. Adams about this case and discussed the wound. Plan will be to let the current area evolve and continue local wound care. Continue current pain control. Vascular service has ordered studies and will await their input. I discussed with the patient that she might need a possible debridement versus partial amputation of her left great toe. We will continue to follow with you. Thank you. History of Present Illness Reason for Consultation: Cellulitis left great toe with ischemia Attending Physician: Gonsalo Marsh MD History of Present Illness Patient is a 79-year-old white female who has significant past medical history of COPD, essential thrombocytosis, JAK2 mutation, MDS, anemia of chronic disease, history of breast CA status post chemo and radiation, history of pulmonary embolism not on oral anticoagulation secondary to bleeding wrist, history of PVD, moderate to severe protein calorie malnutrition, anxiety who presents as a direct admission from PCP secondary to worsening left great toe pain with darkening of the medial aspect of her great toe. Her chart states that she has been dealing with this for approximately 2 to 3 weeks however the patient who is currently awake and alert states it may have been more 4 to 5 weeks? She states she had just been released from the hospital in May and after that time she began having pain in her left great toe. She states that it is painful on palpation and is painful with ambulation. She denies any injury to the toe. Denies diabetic neuropathy or previous history of peripheral arterial disease. Currently her pain is controlled while at rest. Allergies Allergy/AdvReac Type Severity Reaction Status Date / Time latex Allergy Intermediate HIVES Verified 05/28/20 18:44 nickel Allergy Intermediate Hives/Itchi Verified 05/28/20 18:44 ness shellfish derived Allergy Intermediate Hives Verified 05/28/20 18:44 Iodinated Contrast Media AdvReac Mild Diarrhea Verified 05/28/20 18:44 [Iodinated Contrast- Oral and IV Dye] Lobster Allergy Severe HIVES Uncoded 05/28/20 18:44 Home Medications Home Medications Medication Instructions Recorded Confirmed Type pantoprazole [Protonix] 40 mg PO BID 06/06/18 06/15/20 History pregabalin [Lyrica] 75 mg PO BID 06/06/18 06/15/20 History temazepam [Restoril] 30 mg PO HS PRN 06/06/18 06/15/20 History Spiriva with HandiHaler 1 cap INHALATION QAM 12/17/19 06/15/20 History albuterol sulfate 2.5 mg INHALATION Q4H PRN 12/17/19 06/15/20 History albuterol sulfate [Ventolin HFA] 2 puff INHALATION QID PRN 12/17/19 06/15/20 History amitriptyline 75 mg PO HS 12/17/19 06/15/20 History fluticasone propion-salmeterol 1 inh INHALATION BID 12/17/19 06/15/20 History loperamide 2 mg PO Q4H PRN 12/17/19 06/15/20 History olopatadine 1 drp OPB BID PRN 12/17/19 06/15/20 History trazodone 50 mg PO HS 12/17/19 06/15/20 History acetaminophen [Tylenol] 325 mg PO QID PRN 01/23/20 06/15/20 History bismuth subsalicylate 524 mg PO QID PRN 04/01/20 06/15/20 History [Pepto-Bismol] ondansetron HCl 8 mg PO Q12H PRN 04/01/20 06/15/20 History risedronate [Actonel] 35 mg PO WK 04/01/20 06/15/20 History rizatriptan 10 mg PO .DAILY/UD PRN 04/01/20 06/15/20 History sucralfate [Carafate] 1 gm PO ACHS 04/01/20 06/15/20 History hydroxyurea 500 mg PO DAILY 04/22/20 06/15/20 History methylprednisolone 0 mg PO DIRECTED 05/28/20 06/15/20 History morphine 15 mg PO Q12H 05/28/20 06/15/20 History oxycodone 5 mg PO Q8H PRN 05/28/20 06/15/20 History anagrelide 1 mg PO BID #60 cap 05/29/20 06/15/20 Rx allopurinol 100 mg PO DAILY 06/15/20 06/15/20 History aspirin [Aspir-81] 81 mg PO DAILY 06/15/20 06/15/20 History Patient History Medical History CKD (chronic kidney disease), stage III COPD (chronic obstructive pulmonary disease) Embolic disease of toe History of breast cancer chemo History of MRSA infection "left hip wound" History of peptic ulcer disease IBS (irritable bowel syndrome) Diarrhea predominant ; follows with GI Leukocytosis MDS/MPN (myelodysplastic/myeloproliferative neoplasms) Myelodysplastic syndrome Pelvic fracture 12/2018 pelvic fracture and monitor Pulmonary emboli 12/2019 just monitored Pulmonary nodules CT 01/23/20: 5 mm RML 3 mm RML 3 mm DEVEN 4 mm RUL S/P ORIF (open reduction internal fixation) fracture fracture hip x 5 and then had ORIF Subcapsular hemorrhage of spleen Thrombocytosis Surgical History H/O mastectomy modified radical masectomy H/O: hysterectomy History of cholecystectomy Hx of esophagogastroduodenoscopy Status post mastectomy "modified right mastectomy 1990" Status post total hip replacement, left had after ORIF hip Family History Mother Heart disease Social History Smoking Status: Current some day smoker Tobacco Type: Cigarettes packs per day: 1; Second Hand Exposure: No; Do You Dip or Chew Tobacco: No; Tobacco Cessation Education Requested by Patient: No Hx Alcohol Use: No Hx Substance Use: No Preferred Language: Mozambican Communication Ability: Effective 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 No acute distress. Pleasant and cooperative. On examination of her left great toe, she has an area on the medial aspect of the distal great toe that measures approximately 2 x 3 cm that is black, nondraining, without odor. The surrounding edges have a slight erythema to them. She is tender on palp ation but does have good range of motion of the toe. Cap refill is less than 2 seconds. Dorsalis pedis pulse present but slightly diminished compared to the right. She denies any decrease sensation at this time. Currently denies pain in her other toes and has good range of motion of her toes at this time and no pain in the ankle. Results & Data ([facility]) Vital Signs (Past 12 Hours) Vital Signs Temp Pulse Resp BP Pulse Ox 06/16/20 15:39 36.3 C L 105 H 18 102/58 L 96 06/16/20 08:46 36.6 C 95 H 16 93/58 L 91 Laboratory Results Laboratory Results WBC 14.99 K/uL (4.8-10.8) H 06/16/20 05:25 RBC 2.37 M/uL (4.2-5.4) L 06/16/20 05:25 Hgb 7.2 g/dL (12.0-16.0) L 06/16/20 05:25 Hct 24.0 % (37-47) L 06/16/20 05:25 MCV 101.3 fL (80-100) H 06/16/20 05:25 MCH 30.4 pg (25-34) 06/16/20 05:25 MCHC 30.0 g/dL (32-36) L 06/16/20 05:25 RDW Std Deviation 82.3 fL (36.4-46.3) H 06/16/20 05:25 RDW Coeff of Radha 23.4 % (11.5-14.5) H 06/16/20 05:25 Plt Count 710 K/uL (130-400) H 06/16/20 05:25 MPV 12.4 fL (7.4-10.4) H 06/16/20 05:25 Absolute Nucleated RBC 0.15 K/uL (0-0) H 06/16/20 05:25 Nucleated RBC % (auto) 1.0 % 06/16/20 05:25 Neutrophils % (Manual) 57.0 % 06/16/20 05:25 Lymphocytes % (Manual) 25.0 % 06/16/20 05:25 Monocytes % (Manual) 6.0 % 06/16/20 05:25 Eosinophils % (Manual) 9.0 % 06/16/20 05:25 Basophils % (Manual) 3.0 % 06/16/20 05:25 Myelocytes % (Man) 0.9 % 06/15/20 16:30 Neutrophils # (Manual) 8.54 K/uL (1.4-6.5) H 06/16/20 05:25 Total Absolute Neuts 8.54 K/uL (1.4-6.5) H 06/16/20 05:25 Lymphocytes # (Manual) 3.75 K/uL (1.2-3.4) H 06/16/20 05:25 Total Abs Lymphocytes 3.75 K/uL (1.2-3.4) H 06/16/20 05:25 Monocytes # (Manual) 0.90 K/uL (0.11-0.59) H 06/16/20 05:25 Eosinophils # (Manual) 1.35 K/uL (0-0.5) H 06/16/20 05:25 Basophils # (Manual) 0.45 K/uL (0-0.2) H 06/16/20 05:25 Myelocytes # (Manual) 0.14 K/uL (0-0) H 06/15/20 16:30 Giant Platelets 1+ 06/16/20 05:25 Polychromasia 1+ 06/16/20 05:25 Hypochromasia Present 06/16/20 05:25 Poikilocytosis Present 06/15/20 16:30 Basophilic Stippling 1+ 06/16/20 05:25 Anisocytosis Present 06/16/20 05:25 Echinocytes 1+ 06/15/20 16:30 ESR 2 mm/hr (0-21) 06/16/20 05:25 PT 11.4 Seconds (9.0-12.0) 06/15/20 16:30 INR 1.1 (0.9-1.1) 06/15/20 16:30 APTT 29.4 Seconds (21.0-31.0) 06/15/20 16:30 PTT Ratio 1.1 06/15/20 16:30 Sodium 143 mmol/L (136-145) 06/16/20 05:25 Potassium 4.9 mmol/L (3.5-5.1) 06/16/20 05:25 Chloride 115 mmol/L (98-107) H 06/16/20 05:25 Carbon Dioxide 24 mmol/L (21-32) 06/16/20 05:25 Anion Gap 4.0 (3-11) 06/16/20 05:25 BUN 36 mg/dl (7-18) H 06/16/20 05:25 Creatinine 1.39 mg/dl (0.6-1.2) H D 06/16/20 05:25 Est Cr Clr Drug Dosing 25.3 ml/min 06/16/20 05:25 Est GFR ( Amer) 42.3 06/16/20 05:25 Est GFR (Non-Af Amer) 36.5 06/16/20 05:25 BUN/Creatinine Ratio 25.5 (10-20) H 06/16/20 05:25 Glucose 88 mg/dl (70-99) 06/16/20 05:25 Lactate 1.9 mmol/L (0.4-2.0) 06/15/20 16:30 Calcium 8.1 mg/dl (8.5-10.1) L 06/16/20 05:25 Magnesium 2.0 mg/dl (1.8-2.4) 06/16/20 05:25 Total Bilirubin 0.3 mg/dl (0.2-1) 06/16/20 05:25 AST 20 U/L (15-37) 06/16/20 05:25 ALT 10 U/L (12-78) L 06/16/20 05:25 Alkaline Phosphatase 67 U/L (45-117) 06/16/20 05:25 Total Creatine Kinase 71 U/L (26-192) 06/16/20 05:25 C-Reactive Protein 1.55 mg/dl (0-0.29) H 06/15/20 16:30 Total Protein 5.4 gm/dl (6.4-8.2) L 06/16/20 05:25 Albumin 2.6 gm/dl (3.4-5.0) L 06/16/20 05:25 Globulin 2.8 gm/dl (2.5-4.0) 06/16/20 05:25 Albumin/Globulin Ratio 0.9 (0.9-2) 06/16/20 05:25 Procalcitonin 3.80 ng/ml (0-0.5) H 06/15/20 16:30 TSH 5.300 uIu/ml (0.300-4.500) H 06/15/20 16:30 Free T4 0.94 ng/dl (0.8-1.6) 06/15/20 16:30 Diagnostic Findings atient: FRANK RACHEL Date: 06/15/20 MR#: [id number]: [address] AVM[address] Acct ID:[id number]: [address] [facility] Zip: [place] [address] Age: 79Location: 3N Sex: FRoom[facility]Bed: [facility] Att Phy: Hector Albarran, [facility] GREAT TOE CELLULITIS Malena Phy: Valerie Chavez MDService Date: 06/15/20 Fam Phy:Interpreting Phy: Sher Lira MD Admit Phy: Hector Albarran MD Ordering Phy: Kami Phillip PA-C cc: ~ MRI OF THE LEFT FOREFOOT NO CONTRAST CLINICAL HISTORY: Left great toe wound. Possible osteomyelitis. COMPARISON STUDY: Left foot x-ray performed 05/28/2020 FINDINGS: Images were obtained in the axial, sagittal, and coronal planes. The examination is compromised due to patient motion. There is pronounced dorsal soft tissue edema. There are curvilinear signal abnormalities within the subchondral bone involving first through fourth metatarsal heads. The findings are indicative of avascular necrosis. There is T2 edema involving the first, second and third distal phalanges. The findings are indicative of a nonspecific osteitis. There is no corresponding T1 marrow edema to indicate acute osteomyelitis. IMPRESSION: 1. Motion degraded study 2. Dorsal soft tissue edema 3. 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 Nonspecific osteitis involving the first second and third distal phalanges. No evidence of osteomyelitis.
[2020-06-16] MEDS: AMITRIPTYLINE HCL 25 MG TAB PO SCH (20:04)
[2020-06-16] MEDS: HYDROXYUREA 500 MG CAP PO SCH (20:05)
[2020-06-16] MEDS: traZODone HCL 50 MG TAB PO SCH (20:07)
[2020-06-16] MEDS: TEMAZEPAM 15 MG CAPSULE PO SCH (20:08)
--- NOTE | 2020-06-16 21:09 | Hospitalist Progress Note ---
Date of Service June 16, 2020 Assessment & Plan (1) Cellulitis of great toe, left: (2) Abnormal ankle brachial index (CINDY): Per admitting service notes This is a 79-year-old female who has significant past medical history of COPD, essential thrombocytosis, JAK2 mutation, MDS, anemia of chronic disease, history of breast CA status post chemo and radiation, history of pulmonary embolism not on oral anticoagulation secondary to bleeding wrist, history of PVD, moderate to severe protein calorie malnutrition, anxiety who presents as a direct admission from PCP secondary to worsening left great toe discoloration and pain x2 to 3 weeks. Admit to med/surg consult vascular Dr. Pascal obtain labs cbc, cmp, mag, pt/inr, ptt, lactate, procalcitonin, mag, blood cultures, CK, TSH obtain IV access and initiate IV antibiotics after blood culture obtained IV Daptomycin and Zosyn ordered NSS 80cc/hr x 2 L MRI of L foot w and w/o contrast to r/o osteomyelitis obtain surface wound culture consult wound nurse/Dr. June along with orthopedics 06/16/2020 Still having significant pain over the left great toe MRI of the foot: No osteomyelitis Cultures pending Continue IV Dapto and Zosyn Ortho and wound care service consulted (3) Thrombocytosis: PITO 2 continue anagrelide and hydroxyurea Plt on 06/[address] Chavez (4) Anemia: MDS, JAK2 Mutation, Essential Thrombocytosis monitor h/h transfuse prn, pt transfusion dependent (5) COPD (chronic obstructive pulmonary disease): No signs of acute exacerbation (6) History of peptic ulcer disease: continue PPI (7) Severe protein-calorie malnutrition: Nutrition on board in past will again consult nutrition and appreciate their input (8) Chronic pain: on MS contin 15mg Q12h with oxycodone 5mg q8h prn break through pain confirmed via PDMP (9) DVT prophylaxis: Per admitting service notes contraindication to chemical prophylaxis in setting of transfusion dependent anemia/bleeding risk will hold off on SCDS at this time in setting of concern for L great toe cellulitis/PAD reassess daily need for mechanical prophylaxis Disposition: PT and OT evaluation Follow up: PCP Dr. Chavez upon discharge Admission and Anticipated Discharge Date Admission Date: June 15, 2020 Subjective Follow-up for left great toe cellulitis, PAD Seen resting in bed, comfortable, not in distress, appears weak Ports she feels about the same as yesterday Still having pain on the left great toe No fever or chills Denies chest pain, shortness breath, palpitations, dizziness No other symptom Review of Systems Review of Systems: All systems reviewed & are unremarkable except as noted in Subjective Physical Exam Physical Exam: General- oriented x 3, not in distress, speaks in sentences with no effort or accessory muscle use Head- atraumatic Eyes- PERRL, EOMI, anicteric ENT- oropharynx clear Neck- supple, no JVD, no adenopathy, no thyromegaly; carotids +2/2, no bruits appreciated Lungs- clear to auscultation bilaterally, no rales/wheezes Heart- normal rate, regular rhythm; no murmur, no gallop, no rub appreciated Abdomen- normal bowel sounds, nondistended, soft, nontender, no masses or hepatosplenomegaly Extremities- no pretibial edema, no calf tenderness; peripheral pulses intact Positive eschar on the left great toe, positive tenderness on the left great toe No active discharge Neuro- alert, oriented x 3; CN 2-12 grossly intact; motor 5/5 bilaterally;sensation 100% on all extremities; no other gross focal neurologic deficits Skin- warm & dry Results & Data Results & Data ([facility]) Vital Signs (Past 12 Hours) Vital Signs Temp Pulse Resp BP Pulse Ox 06/16/20 15:39 36.3 C L 105 H 18 102/58 L 96 Laboratory Results Laboratory Results - last 24 hr 06/16/20 06/16/20 06/16/20 05:25 05:25 05:25 WBC 14.99 H RBC 2.37 L Hgb 7.2 L Hct 24.0 L MCV 101.3 H MCH 30.4 MCHC 30.0 L RDW Std Deviation 82.3 H RDW Coeff of Radha 23.4 H Plt Count 710 H MPV 12.4 H Absolute Nucleated RBC 0.15 H Nucleated RBC % (auto) 1.0 Neutrophils % (Manual) 57.0 Lymphocytes % (Manual) 25.0 Monocytes % (Manual) 6.0 Eosinophils % (Manual) 9.0 Basophils % (Manual) 3.0 Neutrophils # (Manual) 8.54 H Total Absolute Neuts 8.54 H Lymphocytes # (Manual) 3.75 H Total Abs Lymphocytes 3.75 H Monocytes # (Manual) 0.90 H Eosinophils # (Manual) 1.35 H Basophils # (Manual) 0.45 H Giant Platelets 1+ Polychromasia 1+ Hypochromasia Present Basophilic Stippling 1+ Anisocytosis Present ESR 2 Sodium 143 Potassium 4.9 Chloride 115 H Carbon Dioxide 24 Anion Gap 4.0 BUN 36 H Creatinine 1.39 H D Est Cr Clr Drug Dosing 25.3 Est GFR ( Amer) 42.3 Est GFR (Non-Af Amer) 36.5 BUN/Creatinine Ratio 25.5 H Glucose 88 Calcium 8.1 L Magnesium 2.0 Total Bilirubin 0.3 AST 20 ALT 10 L Alkaline Phosphatase 67 Total Creatine Kinase 71 Total Protein 5.4 L Albumin 2.6 L Globulin 2.8 Albumin/Globulin Ratio 0.9 (1) Anemia Anemia type: unspecified type Qualified Code(s): D64.9 - Anemia, unspecified (2) COPD (chronic obstructive pulmonary disease) COPD type: unspecified COPD Qualified Code(s): J44.9 - Chronic obstructive pulmonary disease, unspecified
[2020-06-16] MEDS ORDERED: SODIUM CHLORIDE 0.9% 1000ML 1,000 ML IV SCH (21:15)
[2020-06-17] MEDS: PIPERACILLIN/TAZOBACTAM 3.375 GM in DEXTROSE 5% 100 ML IV SCH ×2 (05:38→12:51)
[2020-06-17 06:48] LABS: Hematocrit (blood only) 24.5 % (37-47); Hemoglobin 7.3 g/dL (12.0-16.0); Mean Corpuscular Hgb Conc 29.8 g/dL (32-36); Mean Corpuscular Volume 100.8 fL (80-100); Mean Platelet Volume 12.8 fL (7.4-10.4); Nucleated RBC # (auto) 0.08 K/uL (0-0); Nucleated RBC % (auto) 0.4 %; Platelet Count 597 K/uL (130-400); RDW Coefficient of Variation 23.8 % (11.5-14.5); RDW Standard Deviation 80.9 fL (36.4-46.3); Red Blood Count 2.43 M/uL (4.2-5.4); White Blood Count 20.45 K/uL (4.8-10.8)
[2020-06-17 06:52] LABS: Anisocytosis Present; Basophils # (auto) 0.15 K/uL (0-0.2); Basophils % (auto) 0.7 %; Eosinophils # (auto) 1.92 K/uL (0-0.5); Eosinophils % (auto) 9.4 %; Immature Granulocytes # (auto) 0.32 K/uL (0.00-0.02); Immature Granulocytes % (auto) 1.6 %; Lymphocytes # (auto) 2.54 K/uL (1.2-3.4); Lymphocytes % (auto) 12.4 %; Monocytes # (auto) 1.79 K/uL (0.11-0.59); Monocytes % (auto) 8.8 %; Neutrophils # (auto) 13.73 K/uL (1.4-6.5); Neutrophils % (auto) 67.1 %
[2020-06-17 06:53] LABS: BUN Creatinine Ratio 23.2 (10-20); Calcium 7.8 mg/dl (8.5-10.1); Creatinine Clr Calc Pharmacy 34.4 ml/min; Est GFR (African American) 61.4; Potassium 4.5 mmol/L (3.5-5.1)
[2020-06-17] MEDS: ANAGRELIDE 1 MG PO SCH ×2 (09:17→20:57)
[2020-06-17] MEDS: allopurinoL 100 MG TAB PO SCH (09:17)
[2020-06-17] MEDS: MAGNESIUM OXIDE 400 MG TAB PO SCH (09:17)
[2020-06-17] MEDS: ASPIRIN 81 MG ECTAB PO SCH (09:17)
[2020-06-17] MEDS: FLUTICASONE/VILANTEROL 100/25MCG 14 PUFFS/INHALER INH SCH (09:18)
[2020-06-17] MEDS: UMECLIDINIUM BROMIDE 62.5MCG/BLISTER 7 PUFFS/INHALER INH SCH (09:18)
[2020-06-17] MEDS: HEPARIN SOD 5,000 UNIT/0.5 ML VIAL SQ SCH ×2 (09:18→20:58)
[2020-06-17] MEDS: SUCRALFATE 1 GM TAB PO SCH ×4 (09:18→20:56)
[2020-06-17] MEDS: PREGABALIN 75 MG CAP PO SCH ×2 (09:20→21:03)
[2020-06-17] MEDS: MoRPHine SULFATE CR 15 MG TABCR PO SCH ×2 (09:22→21:03)
[2020-06-17] MEDS: DAPTOmycin 200 MG in SYRINGE 0 ML IV SCH (10:37)
--- NOTE | 2020-06-17 13:03 | Surgery Progress Note ---
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 There is multiple areas of plaque in the aorta and iliacs. In view of her significant iodine allergy, i would recommend we hold off on any intervention at this time unless her toe wound worsens. Would only treat the iliac stenosis to improve wound healing of the toe. Her embolization may have come from anywhere in her aorta or iliacs. Admission and Anticipated Discharge Date Admission Date: June 15, 2020 Subjective No new changes. Physical Exam Constitutional: Toe wound unchanged. Results & Data ([facility]) Vital Signs (Past 12 Hours) Vital Signs Temp Pulse Resp BP Pulse Ox 06/17/20 08:09 36.9 C 108 H 18 106/56 L 96 (1) Ischemic ulcer Non-pressure ulcer stage: unspecified non-pressure ulcer stage Qualified Code(s): L98.499 - Non-pressure chronic ulcer of skin of other sites with unspecified severity
[2020-06-17] MEDS: oxyCODONE HCL IR 5 MG TAB (IMMEDIATE RELEASE) PO PRN (15:48)
[2020-06-17] MEDS ORDERED: SODIUM CHLORIDE 0.9% 250 ML IV PRN (17:24)
--- NOTE | 2020-06-17 17:27 | Communication Note ---
Date of Service: June 17, 2020 ATTENDING NOTE : left great toe infection : culture coag negative staph MRSA on IV daptomycin -cont Anemia of chronic disease : hb 7.3 will transfuse 1 unit of PRBC today repeat lab in am no plan to dc pt home today updated patient Doreen Wilkins MD
[2020-06-17] MEDS ORDERED: DAPTOmycin 200 MG in SYRINGE 0 ML IV SCH (18:00)
[2020-06-17] MEDS: AMITRIPTYLINE HCL 25 MG TAB PO SCH (20:58)
[2020-06-17] MEDS: traZODone HCL 50 MG TAB PO SCH (20:59)
[2020-06-17] MEDS: HYDROXYUREA 500 MG CAP PO SCH (20:59)
[2020-06-17] MEDS: TEMAZEPAM 15 MG CAPSULE PO SCH (21:03)
[2020-06-17] MEDS ORDERED: SODIUM CHLORIDE 0.9% 500 ML IV SCH (22:45)
--- NOTE | 2020-06-17 22:55 | Hospitalist Progress Note ---
Date of Service June 17, 2020 Assessment & Plan (1) Cellulitis of great toe, left: (2) Abnormal ankle brachial index (CINDY): Peripheral vascular disease : Vascular surgery following cellulitis of left great toe admitted with worsening left great toe discoloration and pain x2 to 3 weeks. appreciate input from wound care and orthopedics MRI of the foot: No osteomyelitis left great toe wound culture : staph aureus MRSA cont IV Christophero Aracelis WALKER consulted for abx and duration of abx tx recommendation (3) Thrombocytosis: chronic PITO 2 continue anagrelide and hydroxyurea Follows with Heme onc Dr.Nilesh Chavez (4) Anemia: due to myelodysplastic syndrome , JAK2 Mutation, Essential Thrombocytosis pt is transfusion dependent HB 7.3 today ordered for 1 unit of PRBC transfusion (5) COPD (chronic obstructive pulmonary disease): No signs of acute exacerbation (6) History of peptic ulcer disease: continue PPI (7) Severe protein-calorie malnutrition: (8) Chronic pain: on MS contin 15mg Q12h with oxycodone 5mg q8h prn break through pain confirmed via PDMP (9) DVT prophylaxis: contraindication to chemical prophylaxis in setting of transfusion dependent anemia/bleeding risk will hold off on SCDS at this time in setting of concern for L great toe cellulitis/PAD Admission and Anticipated Discharge Date Admission Date: June 15, 2020 Subjective offers no new complain no fever or chills receiving PRBC transfusion Physical Exam Physical Exam: General- oriented x 3, not in distress, speaks in sentences with no effort or accessory muscle use Head- atraumatic Eyes- PERRL, EOMI, anicteric ENT- oropharynx clear Neck- supple, no JVD, no adenopathy, no thyromegaly; carotids +2/2, no bruits appreciated Lungs- clear to auscultation bilaterally, no rales/wheezes Heart- normal rate, regular rhythm; no murmur, no gallop, no rub appreciated Abdomen- normal bowel sounds, nondistended, soft, nontender, no masses or hepatosplenomegaly Extremities- no pretibial edema, no calf tenderness; peripheral pulses intact Positive eschar on the left great toe, positive tenderness on the left great toe No active discharge Neuro- alert, oriented x 3; CN 2-12 grossly intact; motor 5/5 bilaterally;sensation 100% on all extremities; no other gross focal neurologic deficits Skin- warm & dry Results & Data Results & Data ([facility]) Vital Signs (Past 12 Hours) Vital Signs Temp Pulse Pulse Pulse Resp BP BP 06/17/20 22:40 37.1 C 95 H 18 85/74 L 06/17/20 19:21 36.8 C 106 H 18 86/54 L 06/17/20 19:00 36.9 C 102 H 18 85/47 L 06/17/20 16:04 105 H 06/17/20 15:59 37.1 C 114 H 18 122/66 Pulse Ox 06/17/20 22:40 96 06/17/20 19:21 99 06/17/20 19:00 94 06/17/20 16:04 95 06/17/20 15:59 89 L (1) Anemia Anemia type: unspecified type Qualified Code(s): D64.9 - Anemia, unspecified (2) COPD (chronic obstructive pulmonary disease) COPD type: unspecified COPD Qualified Code(s): J44.9 - Chronic obstructive pulmonary disease, unspecified
[2020-06-18] MEDS ORDERED: diphenhydrAMINE Capsule 25 MG CAP PO ONE (06:46)
[2020-06-18 07:09] LABS: Anisocytosis Present; Basophils % (auto) 1.1 %; Eosinophils # (auto) 1.88 K/uL (0-0.5); Eosinophils % (auto) 10.4 %; Hematocrit (blood only) 25.2 % (37-47); Hemoglobin 7.8 g/dL (12.0-16.0); Immature Granulocytes # (auto) 0.24 K/uL (0.00-0.02); Immature Granulocytes % (auto) 1.3 %; Lymphocytes # (auto) 2.71 K/uL (1.2-3.4); Mean Corpuscular Hemoglobin 30.4 pg (25-34); Mean Corpuscular Volume 98.1 fL (80-100); Mean Platelet Volume 12.5 fL (7.4-10.4); Monocytes # (auto) 1.65 K/uL (0.11-0.59); Monocytes % (auto) 9.1 %; Neutrophils # (auto) 11.36 K/uL (1.4-6.5); Neutrophils % (auto) 63.1 %; Nucleated RBC # (auto) 0.07 K/uL (0-0); Nucleated RBC % (auto) 0.4 %; Platelet Count 454 K/uL (130-400); RDW Coefficient of Variation 22.4 % (11.5-14.5); RDW Standard Deviation 70.7 fL (36.4-46.3); Red Blood Count 2.57 M/uL (4.2-5.4); White Blood Count 18.04 K/uL (4.8-10.8)
[2020-06-18 07:10] LABS: BUN Creatinine Ratio 23.2 (10-20); Est GFR (Non-African American) 57.8; Potassium 4.4 mmol/L (3.5-5.1)
[2020-06-18] MEDS: PREGABALIN 75 MG CAP PO SCH ×2 (08:29→20:25)
[2020-06-18] MEDS: ANAGRELIDE 1 MG PO SCH ×2 (08:29→20:18)
[2020-06-18] MEDS: MoRPHine SULFATE CR 15 MG TABCR PO SCH ×2 (08:29→20:25)
[2020-06-18] MEDS: ASPIRIN 81 MG ECTAB PO SCH (08:30)
[2020-06-18] MEDS: FLUTICASONE/VILANTEROL 100/25MCG 14 PUFFS/INHALER INH SCH (08:30)
[2020-06-18] MEDS: MAGNESIUM OXIDE 400 MG TAB PO SCH (08:30)
[2020-06-18] MEDS: SUCRALFATE 1 GM TAB PO SCH ×4 (08:30→20:18)
[2020-06-18] MEDS: allopurinoL 100 MG TAB PO SCH (08:30)
[2020-06-18] MEDS: UMECLIDINIUM BROMIDE 62.5MCG/BLISTER 7 PUFFS/INHALER INH SCH (08:30)
[2020-06-18] MEDS: HEPARIN SOD 5,000 UNIT/0.5 ML VIAL SQ SCH ×2 (08:31→20:18)
[2020-06-18] MEDS: DAPTOmycin 200 MG in SYRINGE 0 ML IV SCH (10:56)
[2020-06-18] MEDS: oxyCODONE HCL IR 5 MG TAB (IMMEDIATE RELEASE) PO PRN (17:01)
--- NOTE | 2020-06-18 18:10 | Communication Note ---
Date of Service: June 18, 2020 Veroer ID recommendation appreciated pt will be discharged on PO Tidezolid 200 mg Daily for total 14 days will need Pre Auth paper works completed for Pre Auth possible dc home tomorrow after Abx authorization is obtained Doreen Wilkins MD
--- NOTE | 2020-06-18 19:33 | Hospitalist Progress Note ---
Date of Service June 18, 2020 Assessment & Plan (1) Cellulitis of great toe, left: (2) Abnormal ankle brachial index (CINDY): Peripheral vascular disease : Vascular surgery following cellulitis of left great toe admitted with worsening left great toe discoloration and pain x2 to 3 weeks. appreciate input from wound care and orthopedics MRI of the foot: No osteomyelitis left great toe wound culture : staph aureus MRSA Shilo ID recommendation appreciated pt will be discharged on PO Tidezolid 200 mg Daily for total 14 days will need Pre Auth paper works completed for Pre Auth possible dc home tomorrow after Abx authorization is obtained (3) Thrombocytosis: chronic PITO 2 continue anagrelide and hydroxyurea Follows with Heme onc Dr.Nilesh Chavez (4) Anemia: due to myelodysplastic syndrome , JAK2 Mutation, Essential Thrombocytosis pt is transfusion dependent HB 7.3 today ordered for 1 unit of PRBC transfusion (5) COPD (chronic obstructive pulmonary disease): No signs of acute exacerbation (6) History of peptic ulcer disease: continue PPI (7) Severe protein-calorie malnutrition: Nutrition on board in past will again consult nutrition and appreciate their input (8) Chronic pain: on MS contin 15mg Q12h with oxycodone 5mg q8h prn break through pain confirmed via PDMP (9) DVT prophylaxis: contraindication to chemical prophylaxis in setting of transfusion dependent anemia/bleeding risk will hold off on SCDS at this time in setting of concern for L great toe cellulitis/PAD plan for dc home after pre auth approved for antibiotic Admission and Anticipated Discharge Date Admission Date: June 15, 2020 Subjective offers no new complain no fever or chills Physical Exam Physical Exam: General- oriented x 3, not in distress, speaks in sentences with no effort or accessory muscle use Head- atraumatic Eyes- PERRL, EOMI, anicteric ENT- oropharynx clear Neck- supple, no JVD, no adenopathy, no thyromegaly; carotids +2/2, no bruits appreciated Lungs- clear to auscultation bilaterally, no rales/wheezes Heart- normal rate, regular rhythm; no murmur, no gallop, no rub appreciated Abdomen- normal bowel sounds, nondistended, soft, nontender, no masses or hepatosplenomegaly Extremities- no pretibial edema, no calf tenderness; peripheral pulses intact Positive eschar on the left great toe, positive tenderness on the left great toe No active discharge Neuro- alert, oriented x 3; CN 2-12 grossly intact; motor 5/5 bilaterally;sensation 100% on all extremities; no other gross focal neurologic deficits Skin- warm & dry Results & Data Results & Data ([facility]) Vital Signs (Past 12 Hours) Vital Signs Temp Pulse Resp BP Pulse Ox 06/18/20 15:14 36.8 C 92 H 16 108/63 96 06/18/20 07:37 36.9 C 101 H 18 120/69 95 (1) Anemia Anemia type: unspecified type Qualified Code(s): D64.9 - Anemia, unspecified (2) COPD (chronic obstructive pulmonary disease) COPD type: unspecified COPD Qualified Code(s): J44.9 - Chronic obstructive pulmonary disease, unspecified
[2020-06-18] MEDS: AMITRIPTYLINE HCL 25 MG TAB PO SCH (20:19)
[2020-06-18] MEDS: HYDROXYUREA 500 MG CAP PO SCH (20:19)
[2020-06-18] MEDS: traZODone HCL 50 MG TAB PO SCH (20:20)
[2020-06-18] MEDS: TEMAZEPAM 15 MG CAPSULE PO SCH (20:25)
[2020-06-19 05:50] LABS: Basophils # (auto) 0.24 K/uL (0-0.2); Basophils % (auto) 1.5 %; Eosinophils # (auto) 1.73 K/uL (0-0.5); Hemoglobin 7.9 g/dL (12.0-16.0); Immature Granulocytes # (auto) 0.14 K/uL (0.00-0.02); Immature Granulocytes % (auto) 0.9 %; Lymphocytes # (auto) 2.79 K/uL (1.2-3.4); Lymphocytes % (auto) 17.7 %; Mean Corpuscular Hemoglobin 29.3 pg (25-34); Mean Corpuscular Hgb Conc 30.4 g/dL (32-36); Mean Corpuscular Volume 96.3 fL (80-100); Mean Platelet Volume 12.8 fL (7.4-10.4); Monocytes # (auto) 1.27 K/uL (0.11-0.59); Monocytes % (auto) 8.1 %; Neutrophils % (auto) 60.8 %; Platelet Count 389 K/uL (130-400); RDW Coefficient of Variation 23.4 % (11.5-14.5); RDW Standard Deviation 72.5 fL (36.4-46.3); White Blood Count 15.77 K/uL (4.8-10.8)
[2020-06-19 06:14] LABS: Anisocytosis Present; Basophilic Stippling 1+; Giant Platelets 1+; Tear Drop Cells 1+
[2020-06-19 06:18] LABS: BUN Creatinine Ratio 22.6 (10-20); Calcium 8.2 mg/dl (8.5-10.1); Creatinine Clr Calc Pharmacy 39.9 ml/min; Est GFR (African American) 73.5; Est GFR (Non-African American) 63.4; Potassium 4.5 mmol/L (3.5-5.1)
[2020-06-19] MEDS: ANAGRELIDE 1 MG PO SCH (07:39)
[2020-06-19] MEDS: SUCRALFATE 1 GM TAB PO SCH ×2 (07:40→11:24)
[2020-06-19] MEDS: allopurinoL 100 MG TAB PO SCH (07:40)
[2020-06-19] MEDS: MAGNESIUM OXIDE 400 MG TAB PO SCH (07:40)
[2020-06-19] MEDS: ASPIRIN 81 MG ECTAB PO SCH (07:40)
[2020-06-19] MEDS: UMECLIDINIUM BROMIDE 62.5MCG/BLISTER 7 PUFFS/INHALER INH SCH (07:41)
[2020-06-19] MEDS: PREGABALIN 75 MG CAP PO SCH (07:41)
[2020-06-19] MEDS: FLUTICASONE/VILANTEROL 100/25MCG 14 PUFFS/INHALER INH SCH (07:41)
[2020-06-19] MEDS: HEPARIN SOD 5,000 UNIT/0.5 ML VIAL SQ SCH (07:42)
[2020-06-19] MEDS: MoRPHine SULFATE CR 15 MG TABCR PO SCH (07:42)
[2020-06-19] MEDS: DAPTOmycin 200 MG in SYRINGE 0 ML IV SCH (10:27)
--- NOTE | 2020-06-19 11:15 | Orthopedic Progress Note ---
Date of Service June 19, 2020 Assessment & Plan (1) Cellulitis of great toe, left: I discussed with the patient that if this continues to progress, she will need either an irrigation debridement or a toe amputation. Patient currently is refusing the idea of a toe amputation. Patient possibly being discharged today on p.o. antibiotics. Plan on follow-up with Dr. Adams within the next week to recheck how the toe is doing. Admission and Anticipated Discharge Date Admission Date: June 15, 2020 Subjective Patient currently lying in bed sleeping. Easily awoken. States that her toe continues to be tender. No new complaints. Physical Exam Physical Exam: The left great toe is starting to slowly demarcate. She has some slight changes in the necrotic area on the medial aspect showing a bit of yellow slough in the central portion of the necrotic area. The rest of the great toe is starting to get a slight dusky appearance to it. No overt drainage. No overt odor at this time. Results & Data ([facility]) Vital Signs (Past 12 Hours) Vital Signs Temp Pulse Resp BP BP Pulse Ox 06/19/20 07:35 36.5 C 93 H 18 115/68 91 06/18/20 23:43 36.5 C 103 H 16 131/65 96
--- NOTE | 2020-06-21 08:04 | Discharge Summary ---
Date of Service June 21, 2020 Admission HPI Per Admitting Provider This is a 79-year-old female who has significant past medical history of COPD, essential thrombocytosis, JAK2 mutation, MDS, anemia of chronic disease, history of breast CA status post chemo and radiation, history of pulmonary embolism not on oral anticoagulation secondary to bleeding wrist, history of PVD, moderate to severe protein calorie malnutrition, anxiety who presents as a direct admission from PCP secondary to worsening left great toe discoloration and pain x2 to 3 weeks. Case was discussed with referring provider Dr. Lane. He initially evaluated the patient 06/12 due to concern for left great toe cellulitis as well as black discoloration. She was started on oral Keflex and was reevaluated today. She has not had improvement in discoloration. Due to concern for vascular disease she was sent for bilateral CINDY. Her left PT was 0.53 and DP 0.31. Her right PT was 0.87 and DP 0.81. No significant stenosis but does indicate vascular disease. Of significance patient has had multiple recent hospitalizations, most recently 05/28-05/29 secondary to symptomatic anemia in setting of MDS requiring 2 units of PRBC. She also had worsening of her essential thrombocytosis and was started on anagrelide along with her hydroxyurea. During that admission she did complain of left great toe pain but at that time there was no erythema. X-ray was performed and was negative. She also was hospitalized 05/01/2029 secondary to colitis and anemia. Of significance she did follow-up with hematology oncology Dr. Chavez on 06/10. Currently she complains of pain to L great toe and being cold. She denies f/c/s, chest pain, sob, dizzines, lightheaded, n/v/d, abdominal pain. Overall poor appetite at baseline. Principal Diagnosis LEFT GREAT TOE CELLULITIS Discharge Data Allergies Allergy/AdvReac Type Severity Reaction Status Date / Time latex Allergy Intermediate HIVES Verified 05/28/20 18:44 nickel Allergy Intermediate Hives/Itchi Verified 05/28/20 18:44 ness shellfish derived Allergy Intermediate Hives Verified 05/28/20 18:44 Iodinated Contrast Media AdvReac Mild Diarrhea Verified 05/28/20 18:44 [Iodinated Contrast- Oral and IV Dye] Lobster Allergy Severe HIVES Uncoded 05/28/20 18:44 Consultations 06/15/20 13:02 Consult Vascular Surgery Routine 06/15/20 16:09 Consult Wound Care Provider Routine 06/15/20 16:11 Consult Orthopedic Surgery Routine 06/17/20 19:59 Consult Infectious Diseases Routine Ordered Studies 06/15/20 16:08 MR foot LT w/o con Routine 06/16/20 14:00 US duplex aorta/iliacs/IVC ltd Routine Hospital Course (1) Cellulitis of great toe, left: (2) Abnormal ankle brachial index (CINDY): Peripheral vascular disease : Vascular surgery following cellulitis of left great toe admitted with worsening left great toe discoloration and pain x2 to 3 weeks. appreciate input from wound care and orthopedics MRI of the foot: No osteomyelitis left great toe wound culture : staph aureus MRSA Shilo ID recommendation appreciated pt is discharged on PO Tidezolid 200 mg Daily for total 14 days paper works completed for Pre Auth pt is discharged home today as Abx authorization is obtained (3) Thrombocytosis: chronic PITO 2 continue anagrelide and hydroxyurea Follows with Heme onc Dr.Nilesh Chavez (4) Anemia: due to myelodysplastic syndrome , JAK2 Mutation, Essential Thrombocytosis pt is transfusion dependent s/p 1 unit of PRBC transfusion during this admission (5) COPD (chronic obstructive pulmonary disease): No signs of acute exacerbation (6) History of peptic ulcer disease: continue PPI (7) Severe protein-calorie malnutrition: Nutrition on board in past will again consult nutrition and appreciate their input (8) Chronic pain: on MS contin 15mg Q12h with oxycodone 5mg q8h prn break through pain confirmed via PDMP (9) DVT prophylaxis: contraindication to chemical prophylaxis in setting of transfusion dependent anemia/bleeding risk will hold off on SCDS at this time in setting of concern for L great toe cellulitis/PAD pt is discharged home today Total Time Total Time Spent Total Time Spent (In Minutes): 35 mins Total Time Includes: Discharge Planning and Medication Reconciliation Discharge Plan Discharge Items Patient Disposition: Home - Home Health Services Reason For Visit: L GREAT TOE CELLULITIS Discharge Diagnosis: LEFT GREAT TOE CELLULITIS Activity: Resume your previous activity Non-emergency contact: Primary Care Provider Call non-emergency contact if: you have any medication questions Follow-up/Referrals: Juan Carlos Adams DO [Surgeon] - (FOLLOW UP WITH ORTHOPEDICS DR ADAMS IN A WEEK ) Valerie Chavez MD [Primary Care Provider] - (Date & Time 06/23/2020 2:00 PM Provider Valerie Chavez MD Department General Internal Medicine [facility] ) Jean Paul Pascal MD [Physician] - 07/15/20 8:45 am Diet: Heart Healthy Addtl Attending Provider Instructions: FOLLOW UP WITH WOUND CARE AND ORTHOPEDICS IN CLINIC Pending Studies at Discharge: No Stand-Alone Forms: My [facility] [employer], Smoking Cessation Medications and DC Order Prescriptions: New tedizolid 200 mg tablet 200 mg PO DAILY 6 Days Qty: 6 RF: 0 Continued ondansetron HCl 8 mg Tablet 8 mg PO Q12H PRN (Reason: Nausea) RF: 0 rizatriptan 10 mg Tablet 10 mg PO .DAILY/UD PRN (Reason: Headache) RF: 0 bismuth subsalicylate [Pepto-Bismol] 262 mg/15 mL Suspension 524 mg PO QID PRN (Reason: GI-UPSET) RF: 0 risedronate [Actonel] 35 mg tablet 35 mg PO WK RF: 0 sucralfate [Carafate] 1 gram tablet 1 gm PO ACHS RF: 0 morphine 15 mg tablet extended release 15 mg PO Q12H RF: 0 methylprednisolone 4 mg tablets,dose pack 0 mg PO DIRECTED RF: 0 oxycodone 5 mg tablet 5 mg PO Q8H PRN (Reason: Breakthrough Pain) RF: 0 anagrelide 1 mg capsule 1 mg PO BID Qty: 60 RF: 0 allopurinol 100 mg Tablet 100 mg PO DAILY RF: 0 aspirin 81 mg Tablet,Delayed Release (Dr/Ec) 81 mg PO DAILY RF: 0 temazepam [Restoril] 30 mg Capsule 30 mg PO HS PRN (Reason: Sleep) RF: 0 pantoprazole [Protonix] 40 mg Tablet,Delayed Release (Dr/Ec) 40 mg PO BID RF: 0 pregabalin [Lyrica] 75 mg Capsule 75 mg PO BID RF: 0 albuterol sulfate 2.5 mg /3 mL (0.083 %) solution for nebulization 2.5 mg inhalation Q4H PRN (Reason: Wheezing) RF: 0 amitriptyline 75 mg tablet 75 mg PO HS RF: 0 olopatadine 0.1 % drops 1 drp OPB BID PRN (Reason: Itching) RF: 0 fluticasone propion-salmeterol 500-50 mcg/dose blister with device 1 inh INHALATION BID RF: 0 albuterol sulfate [Ventolin HFA] 90 mcg/actuation HFA aerosol inhaler 2 puff INHALATION QID PRN (Reason: Shortness Of Breath Or Wheezing) RF: 0 Spiriva with HandiHaler 18 mcg capsule, w/inhalation device 1 cap INHALATION QAM RF: 0 loperamide 2 mg capsule 2 mg PO Q4H PRN (Reason: Diarrhea) RF: 0 trazodone 50 mg tablet 50 mg PO HS RF: 0 acetaminophen [Tylenol] 325 mg Tablet 325 mg PO QID PRN (Reason: Pain) RF: 0 hydroxyurea 500 mg capsule 500 mg PO DAILY RF: 0 Discharge Orders: Discharge Order (Routine); Ordered 06/19/20 Ordered By: Doreen Wilkins Admission Data Admit Date/Time: 06/15/20 15:35 Attending Provider: Doreen Wilkins Admit Provider: Hector Albarran Primary Care Provider: Valerie Chavez Other Providers: Jean Paul Pascal ; Juan Carlos Adams ; Maurisio June ; Hector Albarran ; [facility] ; Felix Robertson ; Abhijit Muñiz ; Sanjay Kahn I. ; Savage Maldonado II ; Lluvia Peralta ; Bandar Peraza Other Interventions: Discharge Summary Assessment (RN) Last Done: 06/19/20 13:47
== END 2020-06-19 14:16 | disposition home health service (06) | DRG 299 ==
LOC: 3N 15:35 → SUATTDRO 15:35 → 3N 06-18 18:59

== ENCOUNTER 2020-07-09 17:55 | Inpatient (IN) ==
[2020-07-09] MEDS ORDERED: MoRPHine SULFATE IR 15 MG TAB (IMMEDIATE RELEASE) PO STA (18:56)
--- NOTE | 2020-07-09 19:19 | Emergency Department Note ---
Impression & Plan Cellulitis of great toe, left ED Provider Note CHIEF COMPLAINT: Left toe infection HISTORY OF PRESENTING ILLNESS: This is a 79-year-old female who presents to the emergency department by private vehicle with complaint of an ongoing infection in her left great toe for the past 2 months. Patient states that she follows with Dr. Pascal for peripheral vascular disease and she spoke with his office 2 days ago and they recommended that she come to the emergency department for admission. She states that she had something she wanted to do at home, so she waited until today. She does note that she has been feeling generally fatigued and not well for the past few days. She denies any fevers or chills. She notes that the pain in her toe has been very bothersome to her and has seemed to w orsen over the past few days, she states the pain is constant and she rates the pain 8/10. She has been taking her prescribed morphine with some improvement in the pain. She notes that she finished taking her antibiotics this morning and she feels like her infection has not gotten significantly better. She denies any chest pain, shortness of breath, abdominal pain, back pain, urinary complaints, or unusual rash. REVIEW OF SYSTEMS: A complete 10 point review of systems was reviewed with the p atient with pertinent positives and negatives as per history of present illness. All else were negative. PAST MEDICAL HISTORY: Myelodysplastic syndrome, breast cancer s/p bilateral mastectomy, COPD, GERD, peptic ulcer disease, IBS, anemia SOCIAL HISTORY: Lives at home, she is a current everyday smoker ALLERGIES: Reviewed in chart and with the patient PHYSICAL EXAM: CONSTITUTIONAL: Pleasant and cooperative. Nontoxic-appearing and in no acute distress. Well appearing and well nourished. HEENT: Normocephalic, atraumatic. NECK: Supple, full active range of motion without discomfort. RESPIRATORY: Clear to auscultation bilaterally with no wheezing, crackles, rhonchi or stridor. Equal expansion bilaterally. CARDIOVASCULAR: Regular rate and rhythm with no murmurs, rubs or gallops. GASTROINTESTINAL: Soft, nontender, nondistended. Bowel sounds present in all quadrants. MUSCULOSKELETAL: The left great toe is erythematous and tender to palpation with a large area of necrotic tissue noted along the lateral aspect of the toe. There is erythema and swelling extending up the medial aspect of the foot, tender to palpation. Faintly palpable pulses, strong DP and PT pulses confirmed with Doppler. The toes are cool with slightly delayed capillary refill. 1+ pitting edema of the foot and ankle. Able to move the toes without pain. No pain with range of motion of the ankle joint. INTEGUMENTARY: No rash or other significant dermatologic conditions noted. NEUROLOGIC: Alert and oriented X 4 with normal affect. Normal strength and sensation in all 4 extremities. Normal speech. Normal gait observed. ED COURSE AND MEDICAL DECISION MAKING: CC: Patient presenting with complaint of left toe infection DIFFERENTIAL DIAGNOSIS: Includes, but not limited to cellulitis, abscess, ga ngrene, ischemia, osteomyelitis, failed outpatient treatment, sepsis, among others. INTERPRETATION OF LABS: Marked leukocytosis, anemia (appears improved from previous labs), thrombocytosis, no significant electrolyte abnormalities, BUN and creatinine are mildly elevated (appears consistent with baseline), normal liver enzymes. ESR within normal limits, CRP is elevated. Lactate within normal limits. IMAGING: XR foot LT min 3V routine CLINICAL HISTORY: Left great toe infection. Possible osteomyelitis. COMPARISON: X-ray dated 05/28/2020. MRI dated 06/23/2020 DISCUSSION: The bones are osteopenic. No acute fractures are visualized. There are no destructive changes to indicate acute osteomyelitis. There is dorsal soft tissue edema. IMPRESSION: 1. No fractures identified 2. No conventional radiographic evidence of acute osteomyelitis. MEDICATION RECONCILIATION: I attest that I have personally reviewed the patient's current medication list. INITIAL VITAL SIGNS REVIEW: I reviewed the patient's initial vital signs and interpret them as follows: T: Afebrile; BP: Hypotensive; HR: Within normal limits; RR: Within normal limits; Pulse Ox: Within normal limits on room air. MDM SUMMARY: Patient was evaluated at bedside, history and physical exam performed. Patient is alert and oriented, in no acute distress, resting calmly in the stretcher. She is afebrile and nontoxic-appearing. She is noted to be hypotensive on initial vital signs, she reports that this is baseline for her. Examination of the left foot noting a partially necrotic left great toe with erythema and edema. The patient recently completed a course of antibiotics, and feels that the toe has not improved, I feel that she most likely has failed outpatient therapy. The patient states that she talk to her doctor and they told her to come here to be admitted for IV antibiotics. Review of the patient's chart noting that she has had several recent admissions over the last 2 months, most recently she was discharged on 06/21 after an admission for this same problem. At that time she had a culture that tested positive for MRSA. She was evaluated by ID and she was discharged home on tedizolid. Orders were placed at bedside for labs, inflammatory markers, p.o. morphine for pain, IV vancomycin to cover for MRSA, x-ray of the left foot to evaluate for left foot cellulitis/osteomyelitis. Patient discussed with Dr. Patel, who also evaluated the patient and agrees with my assessment, plan, and disposition. I spoke with the IV team, they have made several attempts to establish IV access and have been unsuccessful. No labs have been drawn at this point. I discussed with Dr. Patel, he evaluated the patient and placed an EJ peripheral line without difficulty, please see his separate documentation for details. Labs were reviewed, CBC abnormalities consistent with her myelodysplastic syndrome, but she does not appear to be acutely anemic to the point of needing a transfusion at this time. X-ray does not show any evidence of osteomyelitis. I spoke on the phone with Dr. Marques, [facility] hospitalist, who agreed to admit the patient for IV antibiotics. I do feel given the patient's frequent hospitalizations and very poor vascular access that she might benefit from placement of a long-term port, especially as she also has need for frequent transfusions due to her MDS. The patient was updated on all results and plan for admission, she was agreeable to this plan. Patient was stable at time of admission. The chart was completed utilizing Pad[employer] Speech voice recognition software. Gr ammatical errors, random word insertions, pronoun errors, and incomplete sentences are an occasional consequence of this system due to software limitations, ambient noise, and hardware issues. Any formal questions or concerns about the content, text, or information contained within the body of this dictation should be directly addressed to the nurse practitioner for clarification. Past Med/Surg History Medical History (Updated 07/10/20 @ 00:29 by BRIANNE Spence) Abrasion of great toe, left, infected CKD (chronic kidney disease), stage III COPD (chronic obstructive pulmonary disease) Embolic disease of toe History of breast cancer chemo History of MRSA infection "left hip wound" History of peptic ulcer disease IBS (irritable bowel syndrome) Diarrhea predominant ; follows with GI Leukocytosis MDS/MPN (myelodysplastic/myeloproliferative neoplasms) Myelodysplastic syndrome Pelvic fracture 12/2018 pelvic fracture and monitor Pulmonary emboli 12/2019 just monitored Pulmonary nodules CT 01/23/20: 5 mm RML 3 mm RML 3 mm DEVEN 4 mm RUL S/P ORIF (open reduction internal fixation) fracture fracture hip x 5 and then had ORIF Subcapsular hemorrhage of spleen Thrombocytosis Surgical History H/O mastectomy modified radical masectomy H/O: hysterectomy History of cholecystectomy Hx of esophagogastroduodenoscopy Status post mastectomy "modified right mastectomy 1990" Status post total hip replacement, left had after ORIF hip Family History Mother Heart disease Social History Smoking Status: Current every day smoker Tobacco Type: Cigarettes packs per day: 1; Years Smoked: 50; Second Hand Exposure: No; Hx Alcohol Use: No Hx Substance Use: No Preferred Language: Kyrgyz Communication Ability: Effective Street Openings Inspector Required: No Beliefs That Will Affect Care: None marital status: / Current Living Situation: Family How many Children do You have: 2 Feels Safe at Home: Yes Assistive Devices: Walker Allergies Allergies Allergy/AdvReac Type Severity Reaction Status Date / Time latex Allergy Intermediate HIVES Verified 07/09/20 21:19 nickel Allergy Intermediate Hives/Itchi Verified 07/09/20 21:19 ness shellfish derived Allergy Intermediate Hives Verified 07/09/20 21:19 Iodinated Contrast Media AdvReac Mild Diarrhea Verified 07/09/20 21:19 [Iodinated Contrast- Oral and IV Dye] Lobster Allergy Severe HIVES Uncoded 07/09/20 21:19 Home Meds Home Medications Medication Instructions Recorded Confirmed pantoprazole [Protonix] 40 mg PO BID 06/06/18 07/09/20 pregabalin [Lyrica] 75 mg PO BID 06/06/18 07/09/20 temazepam [Restoril] 30 mg PO HS PRN 06/06/18 07/09/20 Spiriva with HandiHaler 1 cap INHALATION QAM 12/17/19 07/09/20 albuterol sulfate 2.5 mg INHALATION Q4H PRN 12/17/19 07/09/20 albuterol sulfate [Ventolin HFA] 2 puff INHALATION QID PRN 12/17/19 07/09/20 amitriptyline 75 mg PO HS 12/17/19 07/09/20 fluticasone propion-salmeterol 1 inh INHALATION BID 12/17/19 07/09/20 [Advair Diskus] loperamide 2 mg PO Q4H PRN 12/17/19 07/09/20 olopatadine 1 drp OPB BID PRN 12/17/19 07/09/20 trazodone 50 mg PO HS 12/17/19 07/09/20 acetaminophen [Tylenol] 325 mg PO QID PRN 01/23/20 07/09/20 bismuth subsalicylate 524 mg PO QID PRN 04/01/20 07/09/20 [Pepto-Bismol] ondansetron HCl 8 mg PO Q12H PRN 04/01/20 07/09/20 risedronate [Actonel] 35 mg PO WK 04/01/20 07/09/20 rizatriptan [Maxalt] 10 mg PO .DAILY/UD PRN 04/01/20 07/09/20 sucralfate [Carafate] 1 gm PO ACHS 04/01/20 07/09/20 hydroxyurea 500 mg PO DAILY 04/22/20 07/09/20 morphine 15 mg PO Q12H 05/28/20 07/09/20 oxycodone 5 mg PO Q8H PRN 05/28/20 07/09/20 allopurinol 100 mg PO DAILY 06/15/20 07/09/20 aspirin 81 mg PO DAILY 06/15/20 07/09/20 tedizolid [Sivextro] 200 mg PO DAILY 07/02/20 07/09/20 Previous Rx's Medication Instructions Recorded anagrelide 1 mg PO BID #60 cap 05/29/20 Results & Data (ED) Vital Signs Vital Signs - 24 hr 07/09/20 18:13 07/09/20 19:46 11/05/20 20:14 Temperature 36.4 C L Temperature Source Oral Pulse Rate 80 77 74 Pulse Rhythm Regular Pulse Strength Normal Respiratory Rate 20 13 14 Respiratory Effort / Characteristics Non-Labored Spontaneous Respiratory Depth Normal Respiratory Pattern Regular Blood Pressure 93/51 L 102/57 L Blood Pressure Mean 65 66 Blood Pressure Position Sitting Pulse Oximetry 94 Oxygen Delivery Method Room Air Oxygen Flow Rate Sepsis Recent Fever Within 48 Hours No Sepsis New/Unexplained Change in Mental Status No Sepsis Action Taken by Nursing No Action Required 07/09/20 20:30 07/09/20 21:35 07/09/20 22:30 Temperature Temperature Source Pulse Rate 78 80 79 Pulse Rhythm Pulse Strength Respiratory Rate 17 13 18 Respiratory Effort / Characteristics Respiratory Depth Respiratory Pattern Blood Pressure 108/47 L 108/47 L Blood Pressure Mean 66 67 Blood Pressure Position Pulse Oximetry 95 95 Oxygen Delivery Method Room Air Nasal Cannula Oxygen Flow Rate 2 Sepsis Recent Fever Within 48 Hours Sepsis New/Unexplained Change in Mental Status Sepsis Action Taken by Nursing 07/10/20 00:20 Temperature Temperature Source Pulse Rate 84 Pulse Rhythm Pulse Strength Respiratory Rate 16 Respiratory Effort / Characteristics Respiratory Depth Respiratory Pattern Blood Pressure 115/54 L Blood Pressure Mean 77 Blood Pressure Position Pulse Oximetry 94 Oxygen Delivery Method Room Air Oxygen Flow Rate Sepsis Recent Fever Within 48 Hours Sepsis New/Unexplained Change in Mental Status Sepsis Action Taken by Nursing Laboratory Data Result diagrams: 07/09/20 22:26 07/09/20 22:26 Lab Results 07/09/20 07/09/20 07/09/20 Range/Units 22:26 22:26 22:26 WBC 24.99 H (4.8-10.8) K/uL RBC 2.67 L (4.2-5.4) M/uL Hgb 8.3 L (12.0-16.0) g/dL Hct 26.6 L (37-47) % MCV 99.6 (80-100) fL MCH 31.1 (25-34) pg MCHC 31.2 L (32-36) g/dL RDW Std Deviation 73.5 H (36.4-46.3) fL RDW Coeff of Radha 22.2 H (11.5-14.5) % Plt Count 899 H (130-400) K/uL MPV 11.7 H (7.4-10.4) fL Immature Gran % (Auto) 0.5 % Neut % (Auto) 78.6 % Lymph % (Auto) 8.8 % Adams % (Auto) 7.4 % Eos % (Auto) 4.3 % Baso % (Auto) 0.4 % Neut # (Auto) 19.66 H (1.4-6.5) K/uL Lymph # (Auto) 2.20 (1.2-3.4) K/uL Adams # (Auto) 1.84 H (0.11-0.59) K/uL Eos # (Auto) 1.08 H (0-0.5) K/uL Baso # (Auto) 0.09 (0-0.2) K/uL Immature Gran # (Auto) 0.12 H (0.00-0.02) K/uL Absolute Nucleated RBC 0.10 H (0-0) K/uL Nucleated RBC % (auto) 0.4 % Hypochromasia Present Basophilic Stippling 1+ Anisocytosis Present ESR 14 (0-21) mm/hr Sodium 141 (136-145) mmol/L Potassium 4.9 (3.5-5.1) mmol/L Chloride 114 H (98-107) mmol/L Carbon Dioxide 24 (21-32) mmol/L Anion Gap 4.0 (3-11) BUN 26 H (7-18) mg/dl Creatinine 1.24 H (0.6-1.2) mg/dl Est Cr Clr Drug Dosing 28.2 ml/min Est GFR ( Amer) 48.5 Est GFR (Non-Af Amer) 41.9 BUN/Creatinine Ratio 21.1 H (10-20) Glucose 90 (70-99) mg/dl Lactate (0.4-2.0) mmol/L Calcium 8.1 L (8.5-10.1) mg/dl Total Bilirubin 0.3 (0.2-1) mg/dl AST 13 L (15-37) U/L ALT 9 L (12-78) U/L Alkaline Phosphatase 64 (45-117) U/L C-Reactive Protein 4.45 H (0-0.29) mg/dl Total Protein 5.7 L (6.4-8.2) gm/dl Albumin 2.6 L (3.4-5.0) gm/dl Globulin 3.1 (2.5-4.0) gm/dl Albumin/Globulin Ratio 0.8 L (0.9-2) 07/09/20 Range/Units 22:26 WBC (4.8-10.8) K/uL RBC (4.2-5.4) M/uL Hgb (12.0-16.0) g/dL Hct (37-47) % MCV (80-100) fL MCH (25-34) pg MCHC (32-36) g/dL RDW Std Deviation (36.4-46.3) fL RDW Coeff of Radha (11.5-14.5) % Plt Count (130-400) K/uL MPV (7.4-10.4) fL Immature Gran % (Auto) % Neut % (Auto) % Lymph % (Auto) % Adams % (Auto) % Eos % (Auto) % Baso % (Auto) % Neut # (Auto) (1.4-6.5) K/uL Lymph # (Auto) (1.2-3.4) K/uL Adams # (Auto) (0.11-0.59) K/uL Eos # (Auto) (0-0.5) K/uL Baso # (Auto) (0-0.2) K/uL Immature Gran # (Auto) (0.00-0.02) K/uL Absolute Nucleated RBC (0-0) K/uL Nucleated RBC % (auto) % Hypochromasia Basophilic Stippling Anisocytosis ESR (0-21) mm/hr Sodium (136-145) mmol/L Potassium (3.5-5.1) mmol/L Chloride (98-107) mmol/L Carbon Dioxide (21-32) mmol/L Anion Gap (3-11) BUN (7-18) mg/dl Creatinine (0.6-1.2) mg/dl Est Cr Clr Drug Dosing ml/min Est GFR ( Amer) Est GFR (Non-Af Amer) BUN/Creatinine Ratio (10-20) Glucose (70-99) mg/dl Lactate 0.7 (0.4-2.0) mmol/L Calcium (8.5-10.1) mg/dl Total Bilirubin (0.2-1) mg/dl AST (15-37) U/L ALT (12-78) U/L Alkaline Phosphatase (45-117) U/L C-Reactive Protein (0-0.29) mg/dl Total Protein (6.4-8.2) gm/dl Albumin (3.4-5.0) gm/dl Globulin (2.5-4.0) gm/dl Albumin/Globulin Ratio (0.9-2) Administered Medications Sodium Chloride (1/2 Nss) 1,000 mls @ 75 mls/hr IV .[id number] ONE Stop: 07/10/20 12:42 Last Admin: 07/10/20 00:12 Dose: 75 mls/hr Documented by: [id number] Discontinued Medications Acetaminophen (Acetaminophen 500 Mg Tab) Confirm Administered Dose 1,000 mg .ROUTE .STK-MED ONE Stop: 07/09/20 20:16 Last Admin: 07/09/20 22:51 Dose: Not Given Documented by: [id number] Ceftriaxone Sodium (Ceftriaxone Sodium 2000mg/70ml D5w) Confirm Administered Dose 2,000 mg IV .STK-MED ONE Stop: 07/09/20 20:16 Last Admin: 07/09/20 22:51 Dose: Not Given Documented by: [id number] Ceftriaxone Sodium (Ceftriaxone Sodium 2000mg/70ml D5w) Confirm Administered Dose 2,000 mg IV .STK-MED ONE Stop: 07/09/20 20:18 Last Admin: 07/09/20 22:51 Dose: Not Given Documented by: [id number] Vancomycin HCl 1,250 mg/ (Sodium Chloride) 525 mls @ 200 mls/hr IV NOW ONE Stop: 07/09/20 23:16 Last Admin: 07/09/20 22:50 Dose: 200 mls/hr Documented by: [id number] Morphine Sulfate (Morphine Sulfate Ir 15 Mg Tab (Immediate Release)) 15 mg PO NOW STA Stop: 07/09/20 18:57 Last Admin: 07/09/20 19:30 Dose: 15 mg Documented by: [id number] Discharge Plan Visit Data Chief Complaint: Infection Stated Complaint: L FOOT TOE INFECTION ED Provider: Smith Patel ED Midlevel Provider: Bridgette Jovel Discharge Problem: Cellulitis of great toe, left Patient Disposition: Admitted As Inpatient Condition: Good Forms Stand Alone Forms: [facility] Prescriptions Prescriptions: No Action ondansetron HCl 8 mg Tablet 8 mg PO Q12H PRN (Reason: Nausea) RF: 0 rizatriptan [Maxalt] 10 mg Tablet 10 mg PO .DAILY/UD PRN (Reason: Headache) RF: 0 bismuth subsalicylate [Pepto-Bismol] 262 mg/15 mL Suspension 524 mg PO QID PRN (Reason: GI-UPSET) RF: 0 risedronate [Actonel] 35 mg tablet 35 mg PO WK RF: 0 sucralfate [Carafate] 1 gram tablet 1 gm PO ACHS RF: 0 morphine 15 mg tablet extended release 15 mg PO Q12H RF: 0 oxycodone 5 mg tablet 5 mg PO Q8H PRN (Reason: Breakthrough Pain) RF: 0 anagrelide 1 mg capsule 1 mg PO BID Qty: 60 RF: 0 allopurinol 100 mg Tablet 100 mg PO DAILY RF: 0 aspirin 81 mg Tablet,Delayed Release (Dr/Ec) 81 mg PO DAILY RF: 0 temazepam [Restoril] 30 mg Capsule 30 mg PO HS PRN (Reason: Sleep) RF: 0 pantoprazole [Protonix] 40 mg Tablet,Delayed Release (Dr/Ec) 40 mg PO BID RF: 0 pregabalin [Lyrica] 75 mg Capsule 75 mg PO BID RF: 0 albuterol sulfate 2.5 mg /3 mL (0.083 %) solution for nebulization 2.5 mg inhalation Q4H PRN (Reason: Wheezing) RF: 0 amitriptyline 75 mg tablet 75 mg PO HS RF: 0 olopatadine 0.1 % drops 1 drp OPB BID PRN (Reason: ITCHY EYES) RF: 0 fluticasone propion-salmeterol [Advair Diskus] 500-50 mcg/dose blister with device 1 inh INHALATION BID RF: 0 albuterol sulfate [Ventolin HFA] 90 mcg/actuation HFA aerosol inhaler 2 puff INHALATION QID PRN (Reason: Shortness Of Breath Or Wheezing) RF: 0 Spiriva with HandiHaler 18 mcg capsule, w/inhalation device 1 cap INHALATION QAM RF: 0 loperamide 2 mg capsule 2 mg PO Q4H PRN (Reason: Diarrhea) RF: 0 trazodone 50 mg tablet 50 mg PO HS RF: 0 acetaminophen [Tylenol] 325 mg Tablet 325 mg PO QID PRN (Reason: Pain) RF: 0 hydroxyurea 500 mg capsule 500 mg PO DAILY RF: 0 Sivextro 200 mg tablet 200 mg PO DAILY RF: 0 Referrals Referrals: Valerie Chavez MD [Primary Care Provider] -
--- NOTE | 2020-07-09 19:52 | XRay Report ---
XR foot LT min 3V routine CLINICAL HISTORY: Left great toe infection. Possible osteomyelitis. COMPARISON: X-ray dated 05/28/2020. MRI dated 06/23/2020 DISCUSSION: The bones are osteopenic. No acute fractures are visualized. There are no destructive neeraj nges to indicate acute osteomyelitis. There is dorsal soft tissue edema. IMPRESSION: 1. No fractures identified 2. No conventional radiographic evidence of acute osteomyelitis. ACT 112: Negative or not required by law. Electronically signed by: Sher Lria M.D. 07/09/2020 7:51 PM
[2020-07-09] MEDS ORDERED: ACETAMINOPHEN 500 MG TAB ONE (20:15)
[2020-07-09] MEDS ORDERED: cefTRIAXone SODIUM 2000MG/70ML D5W IV ONE ×2 (20:15→20:17)
[2020-07-09] MEDS ORDERED: VANCOMYCIN HCL 1,250 MG in SODIUM CHLORIDE 0.9% 500 ML IV ONE (20:39)
[2020-07-09] MEDS ORDERED: VANCOMYCIN CONSULT ACTIVE PRN (20:39)
--- NOTE | 2020-07-09 22:31 | Emergency Department Note ---
ED Visit Note Procedure note: Left external jugular intravenous line The nursing staff and IV team was unable to initiate a peripheral line on the patient. Therefore I was asked to evaluate the patient for IV access. After alcohol prep was performed in the left external jugular region, an 18- gauge long IV catheter was inserted into the left external jugular without difficulty. Good blood return and flushed well. The IV was secured in place. No complication. I did evaluate the patient in addition to Bridgette Jovel PA-C. The patient is here for a left great toe infection that has not improved with antibiotics orally. She has erythema to the left great toe region. I have personally seen and evaluated the patient with the physician graduate teaching assistant. I agree with the diagnostic/management decisions and have personally been involved in these decisions and agree with the diagnosis. .
[2020-07-09 22:42] LABS: Basophils # (auto) 0.09 K/uL (0-0.2); Basophils % (auto) 0.4 %; Eosinophils # (auto) 1.08 K/uL (0-0.5); Eosinophils % (auto) 4.3 %; Hematocrit (blood only) 26.6 % (37-47); Hemoglobin 8.3 g/dL (12.0-16.0); Immature Granulocytes # (auto) 0.12 K/uL (0.00-0.02); Immature Granulocytes % (auto) 0.5 %; Lymphocytes % (auto) 8.8 %; Mean Corpuscular Hemoglobin 31.1 pg (25-34); Mean Corpuscular Hgb Conc 31.2 g/dL (32-36); Mean Corpuscular Volume 99.6 fL (80-100); Mean Platelet Volume 11.7 fL (7.4-10.4); Monocytes # (auto) 1.84 K/uL (0.11-0.59); Monocytes % (auto) 7.4 %; Neutrophils # (auto) 19.66 K/uL (1.4-6.5); Neutrophils % (auto) 78.6 %; Nucleated RBC % (auto) 0.4 %; Platelet Count 899 K/uL (130-400); RDW Coefficient of Variation 22.2 % (11.5-14.5); RDW Standard Deviation 73.5 fL (36.4-46.3); Red Blood Count 2.67 M/uL (4.2-5.4); White Blood Count 24.99 K/uL (4.8-10.8)
[2020-07-09 22:59] LABS: Albumin Level 2.6 gm/dl (3.4-5.0); BUN Creatinine Ratio 21.1 (10-20); C Reactive Protein 4.45 mg/dl (0-0.29); Calcium 8.1 mg/dl (8.5-10.1); Creatinine Clr Calc Pharmacy 28.2 ml/min; Est GFR (African American) 48.5; Est GFR (Non-African American) 41.9; Potassium 4.9 mmol/L (3.5-5.1)
[2020-07-09 23:02] LABS: Albumin Globulin Ratio 0.8 (0.9-2); Bilirubin,Total 0.3 mg/dl (0.2-1); Globulin 3.1 gm/dl (2.5-4.0); Total Protein 5.7 gm/dl (6.4-8.2)
[2020-07-09 23:06] LABS: Anisocytosis Present; Basophilic Stippling 1+; Hypochromasia Present
[2020-07-09] MEDS ORDERED: SODIUM CHLORIDE 0.45 % 1,000 ML IV ONE (23:23)
--- NOTE | 2020-07-09 23:24 | History & Physical Report ---
Date of Service July 09, 2020 Assessment & Plan (1) Sepsis: Sepsis Persistent left great toe ulcer history of PVD Failed outpatient treatment ARF 2 to illness COPD, past tobacco abuse Pulmonary status at baseline hx breast cancer, right, status post surgery, chemoradiation hx pulmonary embolism not on anticoagulation secondary to history GI bleed mood/anxiety disorder, at baseline Chronic pain on narcotics Difficult IV access/phlebotomy Malnutrition (low BMI) Medical telemetry Cultures, IV Daptomycin, Cefepime for now [facility] ID consult at some point during confinement. Baseline UA, monitor creatinine response to IVF Vascular surgery consult Re : Persistent left great toe ulcer, history PVD; perennial IV access/phlebotomy difficulty (evaluation for A port placement) Orthopedics surgery consult Re: Left great toe ulcer, follow-up eval Nutrition consult N.p.o. after midnight in anticipation of procedure. DVT prophylaxis. Ambulate as tolerated, pharmacologic prophylaxis contraindicated with history of GI bleed, SCDs contraindicated with history PVD Full code Request providers to contact daughter to coordinate plan of care given concerns about patient insight regarding illness. Riya Rand, contact #[phone]. Text document was generated using Nitro PDF voice recognition software. It may contain grammatical or spelling errors. Kindly contact undersigned for clarification of any documentation item in question. History of Present Illness Chief Complaint: Told by doctor to come to the hospital Primary Care Provider: Valerie Chavez MD History obtained from patient, and records. Medical history is significant for COPD, past tobacco abuse, hx PVD, hx R breast cancer status post surgery, chemoradiation, thrombocythemia on Hydrea therapy, myelodysplastic syndrome, history pulmonary embolism not on anticoagulation 2 to bleeding risk, chronic anemia (baseline hemoglobin of 7-8), chronic pain on narcotics, mood/anxiety disorder. Patient has had monthly admissions since December,. Recent confinement last month for cellulitis of the left great toe with DEISY. MRI of the foot did not show osteomyelitis. [facility] Orthopedics recommended irrigation debridement versus toe amputation. Patient refused toe amputation. Outpatient follow-up recommended after 1 week. Aortoiliac ultrasound requested by Vascular surgery showed extensive aortoiliac atherosclerotic plaque. 2 areas of elevated velocities within the left common iliac or external iliac arteries which suggest hemodynamically significant stenosis. Ischemic ulcer on the left great toe attributed to embolization from aorta or iliacs. No intervention during confinement unless left great toe wound worsens as per documentation. Iliac stenosis treatment might improve wound healing of the toe as per vascular surgeon note. Wound cultures grew coagulase-negative staph, methicillin-resistant. Patient discharged on 2-week course of Tidezolid as per [facility] ID recommendation. ID recommended spending time to explain to patient nature of disease and possibility of amputation due to perceived lack of patient insight during video encounter as per documentation. Patient seen by [facility] [place] on outpatient follow-up 2 weeks ago. Outpatient vascular surgery follow-up recommended. Toe amputation recommended depending on patient progress and vascular surgery input as per documentation. Persistent left great toe pain since discharge from the hospital as per patient. Swelling the same however. Patient felt worse after after last dose of antibiotics yesterday. Patient denies chest pain, S OB, fever, chills, cough, abdominal pain, dysuria, diarrhea. Appetite not too good. As per patient, she was told by vascular surgeon's office to go to the hospital for further evaluation. Difficult phlebotomy and IV access at the ER. IV access placed by ER provider through left external jugular vein. IV vancomycin given at the ER. Medical history as above Surgical History : Cholecystectomy, mastectomy right, hysterectomy, hip surgery Family History : Hypertension Personal/social history past tobacco abuse, no EtOH intake, patient lives in a senior housing unit by herself with caregivers Allergies Allergy/AdvReac Type Severity Reaction Status Date / Time latex Allergy Intermediate HIVES Verified 07/09/20 21:19 nickel Allergy Intermediate Hives/Itchi Verified 07/09/20 21:19 ness shellfish derived Allergy Intermediate Hives Verified 07/09/20 21:19 Iodinated Contrast Media AdvReac Mild Diarrhea Verified 07/09/20 21:19 [Iodinated Contrast- Oral and IV Dye] Lobster Allergy Severe HIVES Uncoded 07/09/20 21:19 Home Medications Home Medications Medication Instructions Recorded Confirmed Type pantoprazole [Protonix] 40 mg PO BID 06/06/18 07/09/20 History pregabalin [Lyrica] 75 mg PO BID 06/06/18 07/09/20 History temazepam [Restoril] 30 mg PO HS PRN 06/06/18 07/09/20 History Spiriva with HandiHaler 1 cap INHALATION QAM 12/17/19 07/09/20 History albuterol sulfate 2.5 mg INHALATION Q4H PRN 12/17/19 07/09/20 History albuterol sulfate [Ventolin HFA] 2 puff INHALATION QID PRN 12/17/19 07/09/20 History amitriptyline 75 mg PO HS 12/17/19 07/09/20 History fluticasone propion-salmeterol 1 inh INHALATION BID 12/17/19 07/09/20 History [Advair Diskus] loperamide 2 mg PO Q4H PRN 12/17/19 07/09/20 History olopatadine 1 drp OPB BID PRN 12/17/19 07/09/20 History trazodone 50 mg PO HS 12/17/19 07/09/20 History acetaminophen [Tylenol] 325 mg PO QID PRN 01/23/20 07/09/20 History bismuth subsalicylate 524 mg PO QID PRN 04/01/20 07/09/20 History [Pepto-Bismol] ondansetron HCl 8 mg PO Q12H PRN 04/01/20 07/09/20 History risedronate [Actonel] 35 mg PO WK 04/01/20 07/09/20 History rizatriptan [Maxalt] 10 mg PO .DAILY/UD PRN 04/01/20 07/09/20 History sucralfate [Carafate] 1 gm PO ACHS 04/01/20 07/09/20 History hydroxyurea 500 mg PO DAILY 04/22/20 07/09/20 History morphine 15 mg PO Q12H 05/28/20 07/09/20 History oxycodone 5 mg PO Q8H PRN 05/28/20 07/09/20 History anagrelide 1 mg PO BID #60 cap 05/29/20 07/09/20 Rx allopurinol 100 mg PO DAILY 06/15/20 07/09/20 History aspirin 81 mg PO DAILY 06/15/20 07/09/20 History tedizolid [Sivextro] 200 mg PO DAILY 07/02/20 07/09/20 History Past Med/Surg History Medical History (Updated 07/10/20 @ 09:16 by Anna Page PA-C) Abrasion of great toe, left, infected CKD (chronic kidney disease), stage III COPD (chronic obstructive pulmonary disease) Embolic disease of toe History of breast cancer chemo History of MRSA infection "left hip wound" History of peptic ulcer disease IBS (irritable bowel syndrome) Diarrhea predominant ; follows with GI Leukocytosis MDS/MPN (myelodysplastic/myeloproliferative neoplasms) Myelodysplastic syndrome Pelvic fracture 12/2018 pelvic fracture and monitor Poor intravenous access Pulmonary emboli 12/2019 just monitored Pulmonary nodules CT 01/23/20: 5 mm RML 3 mm RML 3 mm DEVEN 4 mm RUL S/P ORIF (open reduction internal fixation) fracture fracture hip x 5 and then had ORIF Subcapsular hemorrhage of spleen Thrombocytosis Surgical History H/O mastectomy modified radical masectomy H/O: hysterectomy History of cholecystectomy Hx of esophagogastroduodenoscopy Status post mastectomy "modified right mastectomy 1990" Status post total hip replacement, left had after ORIF hip Family History Mother Heart disease Social History Smoking Status: Current some day smoker Tobacco Type: Cigarettes packs per day: 1; Years Smoked: 50; Second Hand Exposure: No; Do You Dip or Chew Tobacco: No; Tobacco Cessation Education Requested by Patient: No Hx Alcohol Use: No Hx Substance Use: No Preferred Language: Kinyarwanda Communication Ability: Effective Commercial Driver'S License Driver Required: No Beliefs That Will Affect Care: None marital status: / Current Living Situation: Family How many Children do You have: 2 Other Information That Helps Us Care for You: No Feels Safe at Home: Yes Safety Concerns: Feels Safe At This Time Assistive Devices: Denture - Upper, Denture - Lower and Oxygen - at Night Review of Systems Review of Systems: As per HPI, all 10 systems reviewed, all other ROS negative Physical Exam Physical Exam: GENERAL: Comfortable, chronically ill, underweight, no respiratory distress SKIN: Pallor , warm HEENT: Pale palpebral conjunctivae, no ptosis, dry buccal mucosa NECK : Supple, no tenderness, left EJ IV access CHEST : Breast implant mound right, decreased breath sounds, no tenderness HEART : RRR, no obvious murmurs ABDOMEN: No distention noted, nontender EXTREMITIES : Minimal LE swelling, necrotic wound over tender left great toe swelling without drainage. NEUROLOGIC : Coherent, no facial asymmetry, no other gross focality Results & Data Results & Data ([facility]) Vital Signs (Past 12 Hours) Vital Signs Temp Pulse Resp BP Pulse Ox 07/09/20 22:30 79 18 108/47 L 95 07/09/20 21:35 80 13 108/47 L 95 07/09/20 20:30 78 17 07/09/20 20:14 74 14 07/09/20 19:46 77 13 102/57 L 07/09/20 18:13 36.4 C L 80 20 93/51 L 94 Laboratory Results Laboratory Results WBC 24.99 K/uL (4.8-10.8) H 07/09/20 22:26 RBC 2.67 M/uL (4.2-5.4) L 07/09/20 22:26 Hgb 8.3 g/dL (12.0-16.0) L 07/09/20 22:26 Hct 26.6 % (37-47) L 07/09/20 22:26 MCV 99.6 fL (80-100) 07/09/20 22: MCH 31.1 pg (25-34) 07/09/20 22: MCHC 31.2 g/dL (32-36) L 07/09/20 22:26 RDW Std Deviation 73.5 fL (36.4-46.3) H 07/09/20 22:26 RDW Coeff of Radha 22.2 % (11.5-14.5) H 07/09/20 22: Plt Count 899 K/uL (130-400) H 07/09/20 22:26 MPV 11.7 fL (7.4-10.4) H 07/09/20 22:26 Immature Gran % (Auto) 0.5 % 07/09/20: Neut % (Auto) 78.6 % 07/09/20 22: Lymph % (Auto) 8.8 % 07/09/20: [place] % (Auto) 7.4 % 07/09/20: Eos % (Auto) 4.3 % 07/09/20:26 Baso % (Auto) 0.4 % 07/09/20 22:26 Neut # (Auto) 19.66 K/uL (1.4-6.5) H 07/09/20: Lymph # (Auto) 2.20 K/uL (1.2-3.4) 07/09/20 22: [place] # (Auto) 1.84 K/uL (0.11-0.59) H 07/09/20 22: Eos # (Auto) 1.08 K/uL (0-0.5) H 07/09/20 22: Baso # (Auto) 0.09 K/uL (0-0.2) 07/09/20: Immature Gran # (Auto) 0.12 K/uL (0.00-0.02) H 07/09/20: Absolute Nucleated RBC 0.10 K/uL (0-0) H 07/09/20: Nucleated RBC % (auto) 0.4 % 07/09/20 22:26 Hypochromasia Present 07/09/20: Basophilic Stippling 1+ 07/09/20 22: Anisocytosis Present 07/09/20 22: ESR 14 mm/hr (0-21) 07/09/20 22:26 Sodium 141 mmol/L (136-145) 07/09/20 22: Potassium 4.9 mmol/L (3.5-5.1) 07/09/20 22: Chloride 114 mmol/L (98-107) H 07/09/20 22: Carbon Dioxide 24 mmol/L (21-32) 07/09/20: Anion Gap 4.0 (3-11) 07/09/20 22:26 BUN 26 mg/dl (7-18) H 07/09/20 22: Creatinine 1.24 mg/dl (0.6-1.2) H 07/09/20: Est Cr Clr Drug Dosing 28.2 ml/min 07/09/20 22:26 Est GFR ( Amer) 48.5 07/09/20 22: Est GFR (Non-Af Amer) 41.9 07/09/20 22: BUN/Creatinine Ratio 21.1 (10-20) H 07/09/20 22:26 Glucose 90 mg/dl (70-99) 07/09/20 22:26 Lactate 0.7 mmol/L (0.4-2.0) 07/09/20 22:26 Calcium 8.1 mg/dl (8.5-10.1) L 07/09/20 22:26 Total Bilirubin 0.3 mg/dl (0.2-1) 07/09/20 22:26 AST 13 U/L (15-37) L 07/09/20 22:26 ALT 9 U/L (12-78) L 07/09/20 22:26 Alkaline Phosphatase 64 U/L (45-117) 07/09/20 22:26 C-Reactive Protein 4.45 mg/dl (0-0.29) H 07/09/20 22: Total Protein 5.7 gm/dl (6.4-8.2) L 07/09/20 22:26 Albumin 2.6 gm/dl (3.4-5.0) L 07/09/20 22: Globulin 3.1 gm/dl (2.5-4.0) 07/09/20 22:26 Albumin/Globulin Ratio 0.8 (0.9-2) L 07/09/20 22:26 Diagnostic Findings Left foot x-ray: 1. No fractures identified 2. No conventional radiographic evidence of acute osteomyelitis. Chest x-ray as per my interpretation: Right breast prosthesis, no congestion
[2020-07-10] MEDS: MoRPHine SULFATE CR 15 MG TABCR PO SCH ×3 (01:39→21:17)
[2020-07-10] MEDS ORDERED: CEFEPIME CONSULT ACTIVE PRN (04:33)
[2020-07-10] MEDS: CEFEPIME 2,000 MG in SYRINGE 0 ML IV SCH (05:14)
[2020-07-10] MEDS ORDERED: HEPARIN SOD 5,000 UNIT/0.5 ML VIAL SQ SCH (06:00)
[2020-07-10 06:09] LABS: Appearance Urine Clear (Clear); Bacteria Urine Automated Negative (Negative); Bilirubin Urine Negative (Negative); Blood Urine Negative (Negative); Color Urine Yellow; Epithelial Cell Urine Auto 20-30 /lpf (0-5); Glucose Urine UA Negative (Negative); Ketones Urine Negative (Negative); Leukocyte Esterase Urine Negative (Negative); Nitrite Urine Negative (Negative); Protein Urine Trace (Negative); RBC Urine Automated 0-4 /hpf (0-4); Specific Gravity Urine 1.025 (1.000-1.030); Urobilinogen Urine Negative (Negative)
--- NOTE | 2020-07-10 08:58 | XRay Report ---
XR chest 1V portable CLINICAL HISTORY: Acute renal failure COMPARISON STUDY: 05/28/2020 FINDINGS: The cardiac and mediastinal contours remain stable. Surgical clips project over the right a xilla. There is underlying pulmonary emphysema. There is increased density of the right hemithorax a finding which is felt to be secondary to overlying breast prosthesis. There is no focal pulmonary con solidation. There are no significant pleural effusions. Chronic changes involve the left humeral head .[ IMPRESSION: No active disease in the chest. ACT 112: Negative or not required by law. Electronically signed by: Sher Lira M.D. 07/10/2020 8:57 AM
--- NOTE | 2020-07-10 09:21 | Consultation ---
Date of Consultation July 10, 2020 Assessment & Plan (1) Embolic disease of toe: Pt with apparent embolism of L great toe, appears well demarcated and dry. Pt continues to have biphasic doppler signals to foot, does not require vascular surgical intervention at this time. Recommend proceed with amputation as per orthopedic service. (2) Poor intravenous access: Pt also with difficult IV access during frequently-required blood transfusions and an infusaport has been requested. Placement of infusaport will require regular outpt maintenance to be ordered by her PCP or drawing box tender. L IJ line will also need to be removed at least 24 hr prior to port placement. Will be happy to place port on MONDAY if arrangements are made for outpt maintenance orders and her current line is removed on Monday. Patient was seen, examined, and chart reviewed. Agree with exam and treatment plan of the Vascular PA. History of Present Illness Reason for Consultation: L great toe gangrene, PAD, poor IV access Attending Physician: Gonsalo Marsh MD History of Present Illness 79 yo f with multiple medical problems, including myelodysplatic syndrome with chronic anemia, CKD, hx GI bleed, PE, IBS, COPD, breast ca, admitted with pain in l great toe, seen in consultation today for PAD. Pt also seen during previous admission for same. She was to be seen in f/u in office earlier this week, however, she cancelled her appt. Pt states L great toe has been hurting since it became discolored weeks ago. Denies any significant changes. Denies BALL, fever, chest pain, SOB, adb pain, N/V, rest pain, claudication, new toe discoloration, other complaints. Arterial US demonstrates diffuse arterial disease in iliacs and LLE, with CINDY of 0.8. Allergies Allergy/AdvReac Type Severity Reaction Status Date / Time latex Allergy Intermediate HIVES Verified 07/09/20 21:19 nickel Allergy Intermediate Hives/Itchi Verified 07/09/20 21:19 ness shellfish derived Allergy Intermediate Hives Verified 07/09/20 21:19 Iodinated Contrast Media AdvReac Mild Diarrhea Verified 07/09/20 21:19 [Iodinated Contrast- Oral and IV Dye] Lobster Allergy Severe HIVES Uncoded 07/09/20 21:19 Home Medications Home Medications Medication Instructions Recorded Confirmed Type pantoprazole [Protonix] 40 mg PO BID 06/06/18 07/09/20 History pregabalin [Lyrica] 75 mg PO BID 06/06/18 07/09/20 History temazepam [Restoril] 30 mg PO HS PRN 06/06/18 07/09/20 History Spiriva with HandiHaler 1 cap INHALATION QAM 12/17/19 07/09/20 History albuterol sulfate 2.5 mg INHALATION Q4H PRN 12/17/19 07/09/20 History albuterol sulfate [Ventolin HFA] 2 puff INHALATION QID PRN 12/17/19 07/09/20 History amitriptyline 75 mg PO HS 12/17/19 07/09/20 History fluticasone propion-salmeterol 1 inh INHALATION BID 12/17/19 07/09/20 History [Advair Diskus] loperamide 2 mg PO Q4H PRN 12/17/19 07/09/20 History olopatadine 1 drp OPB BID PRN 12/17/19 07/09/20 History trazodone 50 mg PO HS 12/17/19 07/09/20 History acetaminophen [Tylenol] 325 mg PO QID PRN 01/23/20 07/09/20 History bismuth subsalicylate 524 mg PO QID PRN 04/01/20 07/09/20 History [Pepto-Bismol] ondansetron HCl 8 mg PO Q12H PRN 04/01/20 07/09/20 History risedronate [Actonel] 35 mg PO WK 04/01/20 07/09/20 History rizatriptan [Maxalt] 10 mg PO .DAILY/UD PRN 04/01/20 07/09/20 History sucralfate [Carafate] 1 gm PO ACHS 04/01/20 07/09/20 History hydroxyurea 500 mg PO DAILY 04/22/20 07/09/20 History morphine 15 mg PO Q12H 05/28/20 07/09/20 History oxycodone 5 mg PO Q8H PRN 05/28/20 07/09/20 History anagrelide 1 mg PO BID #60 cap 05/29/20 07/09/20 Rx allopurinol 100 mg PO DAILY 06/15/20 07/09/20 History aspirin 81 mg PO DAILY 06/15/20 07/09/20 History tedizolid [Sivextro] 200 mg PO DAILY 07/02/20 07/09/20 History Patient History Medical History (Updated 07/10/20 @ 09:16 by Anna Page PA-C) Abrasion of great toe, left, infected CKD (chronic kidney disease), stage III COPD (chronic obstructive pulmonary disease) Embolic disease of toe History of breast cancer chemo History of MRSA infection "left hip wound" History of peptic ulcer disease IBS (irritable bowel syndrome) Diarrhea predominant ; follows with GI Leukocytosis MDS/MPN (myelodysplastic/myeloproliferative neoplasms) Myelodysplastic syndrome Pelvic fracture 12/2018 pelvic fracture and monitor Poor intravenous access Pulmonary emboli 12/2019 just monitored Pulmonary nodules CT 01/23/20: 5 mm RML 3 mm RML 3 mm DEVEN 4 mm RUL S/P ORIF (open reduction internal fixation) fracture fracture hip x 5 and then had ORIF Subcapsular hemorrhage of spleen Thrombocytosis Surgical History H/O mastectomy modified radical masectomy H/O: hysterectomy History of cholecystectomy Hx of esophagogastroduodenoscopy Status post mastectomy "modified right mastectomy 1990" Status post total hip replacement, left had after ORIF hip Family History Mother Heart disease Social History Smoking Status: Current some day smoker Tobacco Type: Cigarettes packs per day: 1; Years Smoked: 50; Second Hand Exposure: No; Do You Dip or Chew Tobacco: No; Tobacco Cessation Education Requested by Patient: No Hx Alcohol Use: No Hx Substance Use: No Preferred Language: Cuban Communication Ability: Effective Testing Specialist Required: No Beliefs That Will Affect Care: None marital status: / Current Living Situation: Family How many Children do You have: 2 Other Information That Helps Us Care for You: No Feels Safe at Home: Yes Safety Concerns: Feels Safe At This Time Assistive Devices: Denture - Upper, Denture - Lower and Oxygen - at Night Review of Systems Review of Systems: All systems reviewed & are unremarkable except as noted in HPI & below Physical Exam Constitutional: well developed, + cachectic, + frail appearing, cooperative and comfortable; not ill appearing and not in distress Eyes: PERRL, conjunctivae normal, anicteric sclerae ENMT: Ears: no hearing impairment Neck: trachea midline Respiratory: normal respiratory effort, lungs clear to auscultation Auscultation: + diminished lung sounds Cardiovascular: Rate/Rhythm: regular rate and regular rhythm Vessels: femoral pulses present, posterior tibial pulses present (biphasic with doppler), dorsalis pedis pulses present (biphasic with dopppler) and radial pulses present; + abnormal peripheral pulses Extremities: + vascular access device (L IJ); + abnormal capillary refill (L great toe decreased, but all other toes brisk) and no edema Gastrointestinal (Abdomen): normal bowel sounds, soft, nontender, no hepatosplenomegaly Musculoskeletal: Extremities: strength 5/5 throughout Skin: + eschar (L distal great toe dry eschar, no erythema or odor. well demarcated); no rashes Neurologic: moves all extremities; no focal motor deficits Psychiatric: Orientation: alert and oriented x 3 (but poor historian and mildly confused regarding instructions) Affect: + flat affect Results & Data ([facility]) Vital Signs (Past 12 Hours) Vital Signs Temp Pulse Pulse Resp BP BP Pulse Ox 07/10/20 08:00 37.1 C 87 16 94/55 L 90 07/10/20 07:54 81 07/10/20 05:26 83 07/10/20 04:00 36.7 C 78 16 103/60 92 07/10/20 01:49 36.9 C 16 99/54 L 91 07/10/20 01:09 87 14 107/56 L 93 07/10/20 00:20 84 16 115/54 L 94 07/09/20 22:30 79 18 108/47 L 95 07/09/20 21:35 80 13 108/47 L 95
[2020-07-10] MEDS: SUCRALFATE 1 GM TAB PO SCH ×4 (09:36→21:17)
[2020-07-10] MEDS: HYDROXYUREA 500 MG CAP PO SCH (09:55)
[2020-07-10] MEDS: ASPIRIN 81 MG ECTAB PO SCH (09:55)
[2020-07-10] MEDS: allopurinoL 100 MG TAB PO SCH (09:55)
[2020-07-10] MEDS: PANTOprazole 40 MG TAB PO SCH ×2 (09:56→21:17)
[2020-07-10] MEDS: UMECLIDINIUM BROMIDE 62.5MCG/BLISTER 7 PUFFS/INHALER INH SCH (09:56)
[2020-07-10] MEDS: PREGABALIN 75 MG CAP PO SCH ×2 (10:06→21:17)
[2020-07-10] MEDS: SODIUM CHLORIDE 0.45 % 1,000 ML IV SCH (13:21)
[2020-07-10] MEDS: ACETAMINOPHEN 325 MG TAB PO PRN (14:46)
--- NOTE | 2020-07-10 15:56 | Orthopedic Consultation ---
Date of Consultation July 10, 2020 Assessment & Plan (1) Embolic disease of toe: (2) Ischemic ulcer: She was seen and examined by Dr. Kahn today as well. We discussed treatment options for her toe again with her today. This would include continued conservative management and observation versus antibiotic suppression versus amputation of the great toe. She does not want to proceed with amputation yet at this point. She was seen by the vascular service today and they did not recommend any vascular intervention. She could be managed with oral antibiotics as opposed to IV antibiotics for this. She may not even necessarily need antibiotics at this time we will defer that to the hospitalist service. We will plan to see her back in clinic in approximately 1 month. Present on Admission?: Yes History of Present Illness Reason for Consultation: Ischemic left great toe Attending Physician: Gonsalo Marsh MD History of Present Illness Abbie is a 79-year-old female with an ischemic left great toe. She was seen in clinic approximately 2 weeks ago. She has been on oral antibiotics. However she was readmitted last evening here to the hospital. She is having some pain in with the great toe. She has no other orthopedic complaints at this time. Allergies Allergy/AdvReac Type Severity Reaction Status Date / Time latex Allergy Intermediate HIVES Verified 07/09/20 21:19 nickel Allergy Intermediate Hives/Itchi Verified 07/09/20 21:19 ness shellfish derived Allergy Intermediate Hives Verified 07/09/20 21:19 Iodinated Contrast Media AdvReac Mild Diarrhea Verified 07/09/20 21:19 [Iodinated Contrast- Oral and IV Dye] Lobster Allergy Severe HIVES Uncoded 07/09/20 21:19 Home Medications Home Medications Medication Instructions Recorded Confirmed Type pantoprazole [Protonix] 40 mg PO BID 06/06/18 07/09/20 History pregabalin [Lyrica] 75 mg PO BID 06/06/18 07/09/20 History temazepam [Restoril] 30 mg PO HS PRN 06/06/18 07/09/20 History Spiriva with HandiHaler 1 cap INHALATION QAM 12/17/19 07/09/20 History albuterol sulfate 2.5 mg INHALATION Q4H PRN 12/17/19 07/09/20 History albuterol sulfate [Ventolin HFA] 2 puff INHALATION QID PRN 12/17/19 07/09/20 History amitriptyline 75 mg PO HS 12/17/19 07/09/20 History fluticasone propion-salmeterol 1 inh INHALATION BID 12/17/19 07/09/20 History [Advair Diskus] loperamide 2 mg PO Q4H PRN 12/17/19 07/09/20 History olopatadine 1 drp OPB BID PRN 12/17/19 07/09/20 History trazodone 50 mg PO HS 12/17/19 07/09/20 History acetaminophen [Tylenol] 325 mg PO QID PRN 01/23/20 07/09/20 History bismuth subsalicylate 524 mg PO QID PRN 04/01/20 07/09/20 History [Pepto-Bismol] ondansetron HCl 8 mg PO Q12H PRN 04/01/20 07/09/20 History risedronate [Actonel] 35 mg PO WK 04/01/20 07/09/20 History rizatriptan [Maxalt] 10 mg PO .DAILY/UD PRN 04/01/20 07/09/20 History sucralfate [Carafate] 1 gm PO ACHS 04/01/20 07/09/20 History hydroxyurea 500 mg PO DAILY 04/22/20 07/09/20 History morphine 15 mg PO Q12H 05/28/20 07/09/20 History oxycodone 5 mg PO Q8H PRN 05/28/20 07/09/20 History anagrelide 1 mg PO BID #60 cap 05/29/20 07/09/20 Rx allopurinol 100 mg PO DAILY 06/15/20 07/09/20 History aspirin 81 mg PO DAILY 06/15/20 07/09/20 History tedizolid [Sivextro] 200 mg PO DAILY 07/02/20 07/09/20 History Patient History Medical History Abrasion of great toe, left, infected CKD (chronic kidney disease), stage III COPD (chronic obstructive pulmonary disease) Embolic disease of toe History of breast cancer chemo History of MRSA infection "left hip wound" History of peptic ulcer disease IBS (irritable bowel syndrome) Diarrhea predominant ; follows with GI Leukocytosis MDS/MPN (myelodysplastic/myeloproliferative neoplasms) Myelodysplastic syndrome Pelvic fracture 12/2018 pelvic fracture and monitor Poor intravenous access Pulmonary emboli 12/2019 just monitored Pulmonary nodules CT 01/23/20: 5 mm RML 3 mm RML 3 mm DEVEN 4 mm RUL S/P ORIF (open reduction internal fixation) fracture fracture hip x 5 and then had ORIF Subcapsular hemorrhage of spleen Thrombocytosis Surgical History H/O mastectomy modified radical masectomy H/O: hysterectomy History of cholecystectomy Hx of esophagogastroduodenoscopy Status post mastectomy "modified right mastectomy 1990" Status post total hip replacement, left had after ORIF hip Family History Mother Heart disease Social History Smoking Status: Current some day smoker Tobacco Type: Cigarettes packs per day: 1; Years Smoked: 50; Second Hand Exposure: No; Do You Dip or Chew Tobacco: No; Tobacco Cessation Education Requested by Patient: No Hx Alcohol Use: No Hx Substance Use: No Preferred Language: Setswana Communication Ability: Effective Biochemistry Specialist Required: No Beliefs That Will Affect Care: None marital status: / Current Living Situation: Family How many Children do You have: 2 Other Information That Helps Us Care for You: No Feels Safe at Home: Yes Safety Concerns: Feels Safe At This Time Assistive Devices: Denture - Upper, Denture - Lower and Oxygen - at Night Review of Systems Review of Systems: All systems reviewed & are unremarkable except as noted in HPI & below Physical Exam Physical Exam: She is alert and oriented. She is in no distress. On exam of the left great toe she has necrotic area on the lateral aspect of the toe. There are some slight erythema. Her toe is tender to palpation. Her sensation is intact to touch. No erythema involving the foot or lower leg. Results & Data ([facility]) Vital Signs (Past 12 Hours) Vital Signs Temp Pulse Pulse Resp BP Pulse Ox 07/10/20 11:55 37.2 C 86 18 103/64 90 07/10/20 08:00 37.1 C 87 16 94/55 L 90 07/10/20 07:54 81 07/10/20 05:26 83 07/10/20 04:00 36.7 C 78 16 103/60 92 PG Care Time/CCT Total # of Minutes Spent Total Time Spent with Patient: Total time spent is greater than 50% in coordination of care (as documented) at patient's floor/unit and/or counseling patient: Coding Level of Care Code 53064 Initial Inpt Care Lvl 2 Diagnoses Embolic disease of toe I74.3 Ischemic ulcer L98.499 Non-pressure ulcer stage: unspecified non-pressure ulcer stage (1) Ischemic ulcer Non-pressure ulcer stage: unspecified non-pressure ulcer stage Qualified Code(s): L98.499 - Non-pressure chronic ulcer of skin of other sites with unspecified severity
[2020-07-10] MEDS: DAPTOmycin 300 MG in SYRINGE 0 ML IV SCH (16:31)
--- NOTE | 2020-07-10 20:26 | Hospitalist Progress Note ---
Date of Service July 10, 2020 Assessment & Plan (1) Sepsis: Sepsis Persistent left great toe ulcer history of PVD Failed outpatient treatment --Blood cultures: Pending --Afebrile Continue daptomycin plus cefepime Will consult [facility] service --Orthopedic service consulted: Recommendations pending Vascular surgery consulted: Positive biphasic Doppler signals to the foot, does not require vascular surgical intervention at this time Poor IV access --Evaluated by vascular surgery, plan for [id number] placement on Monday Discussed with transcripter Dr. Mainor Chavez ARF 2 to illness --Continue IV fluids COPD, past tobacco abuse Pulmonary status at baseline hx breast cancer, right, status post surgery, chemoradiation hx pulmonary embolism not on anticoagulation secondary to history GI bleed mood/anxiety disorder, at baseline Chronic pain on narcotics Difficult IV access/phlebotomy Malnutrition (low BMI) Nutrition consult DVT prophylaxis. Ambulate as tolerated, pharmacologic prophylaxis contraindicated with history of GI bleed, SCDs contraindicated with history PVD Full code Disposition Lives at home Plan of care discussed with patient in detail at length All questions were answered She is understanding and agreeable, comfortable plan of care Admission and Anticipated Discharge Date Admission Date: July 09, 2020 Subjective Follow-up for sepsis, left toe ulcer, peripheral arterial disease Seen resting in bed, comfortable, not in distress Reports pain over the left great toe Denies fevers or chills, headache, nausea vomiting, chest pain, abdominal pain, shortness of breath Denies other symptoms Review of Systems Review of Systems: All systems reviewed & are unremarkable except as noted in Subjective Physical Exam Physical Exam: General- oriented x 3, not in distress, speaks in sentences with no effort or accessory muscle use Under nourished Head- atraumatic Eyes- PERRL, EOMI, anicteric ENT- oropharynx clear Neck- supple, no JVD, no adenopathy, no thyromegaly; carotids +2/2, no bruits appreciated EJ IV access, no bleeding Lungs- clear to auscultation bilaterally, no rales/wheezes Heart- normal rate, regular rhythm; no murmur, no gallop, no rub appreciated Abdomen- normal bowel sounds, nondistended, soft, nontender, no masses or hepatosplenomegaly Extremities- no pretibial edema, no calf tenderness; peripheral pulses intact Left foot: Positive ischemic ulcer at the distal aspect of the first great toe, positive significant tenderness, with surrounding erythema Mild edema of the foot Right foot essentially normal Neuro- alert, oriented x 3; CN 2-12 grossly intact; motor 5/5 bilaterally;sensation 100% on all extremities; no other gross focal neurologic deficits Skin- warm & dry Results & Data Results & Data ([facility]) Vital Signs (Past 12 Hours) Vital Signs Temp Pulse Pulse Resp BP Pulse Ox 07/10/20 19:38 37.1 C 78 17 117/70 91 07/10/20 18:27 91 H 07/10/20 16:08 37.4 C 82 19 111/66 07/10/20 11:55 37.2 C 86 18 103/64 90 Laboratory Results Laboratory Results - last 24 hr 07/09/20 07/09/20 07/09/20 22:26 22:26 22:26 WBC 24.99 H RBC 2.67 L Hgb 8.3 L Hct 26.6 L MCV 99.6 MCH 31.1 MCHC 31.2 L RDW Std Deviation 73.5 H RDW Coeff of Radha 22.2 H Plt Count 899 H MPV 11.7 H Immature Gran % (Auto) 0.5 Neut % (Auto) 78.6 Lymph % (Auto) 8.8 [place] % (Auto) 7.4 Eos % (Auto) 4.3 Baso % (Auto) 0.4 Neut # (Auto) 19.66 H Lymph # (Auto) 2.20 [place] # (Auto) 1.84 H Eos # (Auto) 1.08 H Baso # (Auto) 0.09 Immature Gran # (Auto) 0.12 H Absolute Nucleated RBC 0.10 H Nucleated RBC % (auto) 0.4 Hypochromasia Present Basophilic Stippling 1+ Anisocytosis Present ESR 14 Sodium 141 Potassium 4.9 Chloride 114 H Carbon Dioxide 24 Anion Gap 4.0 BUN 26 H Creatinine 1.24 H Est Cr Clr Drug Dosing 28.2 Est GFR ( Amer) 48.5 Est GFR (Non-Af Amer) 41.9 BUN/Creatinine Ratio 21.1 H Glucose 90 Lactate Calcium 8.1 L Total Bilirubin 0.3 AST 13 L ALT 9 L Alkaline Phosphatase 64 Total Creatine Kinase 38 C-Reactive Protein 4.45 H Total Protein 5.7 L Albumin 2.6 L Globulin 3.1 Albumin/Globulin Ratio 0.8 L Urine Color Urine Appearance Urine pH Ur Specific [place] Urine Protein Urine Glucose (UA) Urine Ketones Urine Blood Urine Nitrite Urine Bilirubin Urine Urobilinogen Ur Leukocyte Esterase Urine WBC (Auto) Urine RBC (Auto) U Hyaline Cast (Auto) U Epithel Cells (Auto) Urine Bacteria (Auto) COVID-19 Eval Order COVID-19 PCR 07/09/20 07/10/20 07/10/20 22:26 05:42 13:30 WBC RBC Hgb Hct MCV MCH MCHC RDW Std Deviation RDW Coeff of Radha Plt Count MPV Immature Gran % (Auto) Neut % (Auto) Lymph % (Auto) [place] % (Auto) Eos % (Auto) Baso % (Auto) Neut # (Auto) Lymph # (Auto) [place] # (Auto) Eos # (Auto) Baso # (Auto) Immature Gran # (Auto) Absolute Nucleated RBC Nucleated RBC % (auto) Hypochromasia Basophilic Stippling Anisocytosis ESR Sodium Potassium Chloride Carbon Dioxide Anion Gap BUN Creatinine Est Cr Clr Drug Dosing Est GFR ( Amer) Est GFR (Non-Af Amer) BUN/Creatinine Ratio Glucose Lactate 0.7 Calcium Total Bilirubin AST ALT Alkaline Phosphatase Total Creatine Kinase C-Reactive Protein Total Protein Albumin Globulin Albumin/Globulin Ratio Urine Color Yellow Urine Appearance Clear Urine pH 5.0 Ur Specific [place] 1.025 Urine Protein Trace H Urine Glucose (UA) Negative Urine Ketones Negative Urine Blood Negative Urine Nitrite Negative Urine Bilirubin Negative Urine Urobilinogen Negative Ur Leukocyte Esterase Negative Urine WBC (Auto) 1-5 Urine RBC (Auto) 0-4 U Hyaline Cast (Auto) 1-5 U Epithel Cells (Auto) 20-30 H Urine Bacteria (Auto) Negative COVID-19 Eval Order Covid19 Done at [facility] COVID-19 PCR 07/10/20 13:30 WBC RBC Hgb Hct MCV MCH MCHC RDW Std Deviation RDW Coeff of Radha Plt Count MPV Immature Gran % (Auto) Neut % (Auto) Lymph % (Auto) [place] % (Auto) Eos % (Auto) Baso % (Auto) Neut # (Auto) Lymph # (Auto) [place] # (Auto) Eos # (Auto) Baso # (Auto) Immature Gran # (Auto) Absolute Nucleated RBC Nucleated RBC % (auto) Hypochromasia Basophilic Stippling Anisocytosis ESR Sodium Potassium Chloride Carbon Dioxide Anion Gap BUN Creatinine Est Cr Clr Drug Dosing Est GFR ( Amer) Est GFR (Non-Af Amer) BUN/Creatinine Ratio Glucose Lactate Calcium Total Bilirubin AST ALT Alkaline Phosphatase Total Creatine Kinase C-Reactive Protein Total Protein Albumin Globulin Albumin/Globulin Ratio Urine Color Urine Appearance Urine pH Ur Specific [place] Urine Protein Urine Glucose (UA) Urine Ketones Urine Blood Urine Nitrite Urine Bilirubin Urine Urobilinogen Ur Leukocyte Esterase Urine WBC (Auto) Urine RBC (Auto) U Hyaline Cast (Auto) U Epithel Cells (Auto) Urine Bacteria (Auto) COVID-19 Eval Order COVID-19 PCR NEGATIVE
[2020-07-10] MEDS: TEMAZEPAM 15 MG CAPSULE PO PRN (21:21)
[2020-07-10] MEDS: traZODone HCL 50 MG TAB PO SCH (21:22)
[2020-07-11] MEDS: SODIUM CHLORIDE 0.45 % 1,000 ML IV SCH ×2 (02:41→17:00)
[2020-07-11] MEDS: CEFEPIME 2,000 MG in SYRINGE 0 ML IV SCH (04:25)
[2020-07-11] MEDS: SUCRALFATE 1 GM TAB PO SCH ×4 (07:32→21:01)
[2020-07-11] MEDS: PREGABALIN 75 MG CAP PO SCH ×2 (08:48→21:00)
[2020-07-11] MEDS: HYDROXYUREA 500 MG CAP PO SCH (08:48)
[2020-07-11] MEDS: UMECLIDINIUM BROMIDE 62.5MCG/BLISTER 7 PUFFS/INHALER INH SCH (08:48)
[2020-07-11] MEDS: allopurinoL 100 MG TAB PO SCH (08:48)
[2020-07-11] MEDS: PANTOprazole 40 MG TAB PO SCH ×2 (08:48→21:00)
[2020-07-11] MEDS: MoRPHine SULFATE CR 15 MG TABCR PO SCH ×2 (08:48→21:00)
[2020-07-11] MEDS: ASPIRIN 81 MG ECTAB PO SCH (08:48)
[2020-07-11] MEDS: ACETAMINOPHEN 325 MG TAB PO PRN (08:51)
--- NOTE | 2020-07-11 17:40 | Hospitalist Progress Note ---
Date of Service July 11, 2020 Assessment & Plan (1) Sepsis: Sepsis Persistent left great toe ulcer history of PVD Failed outpatient treatment --Blood cultures: Negative --Afebrile Continue daptomycin plus cefepime Awaiting [facility] ID service recommendations --Orthopedic service consulted: Does not recommend surgical intervention at this time, continue antibiotics Vascular surgery consulted: Positive biphasic Doppler signals to the foot, does not require vascular surgical intervention at this time Poor IV access --Evaluated by vascular surgery, plan for [id number] placement on Monday Discussed with mail reader Dr. Mainor Chavez ARF 2 to illness --Continue IV fluids --Patient declining lab work done today, explained dire consequences including electrolyte derangements and worsening renal function not being addressed, patient understanding and acceptable risks COPD, past tobacco abuse Pulmonary status at baseline hx breast cancer, right, status post surgery, chemoradiation hx pulmonary embolism not on anticoagulation secondary to history GI bleed mood/anxiety disorder, at baseline Chronic pain on narcotics Difficult IV access/phlebotomy Malnutrition (low BMI) Nutrition consult DVT prophylaxis. Ambulate as tolerated, pharmacologic prophylaxis contrai ndicated with history of GI bleed, SCDs contraindicated with history PVD Full code Disposition Lives at home Waiting ID service recommendations regarding antibiotic regimen Plan of care discussed with patient in detail at length All questions were answered She is understanding and agreeable, comfortable plan of care Admission and Anticipated Discharge Date Admission Date: July 09, 2020 Subjective Follow-up for toe infection, ischemic ulcer, etc. Resting in bed, sleeping but easily awakened Alert, oriented x3 Not in distress, comfortable States foot pain is improving today Denies fevers or chills No chest pain, shortness of breath, palpitations, dizziness Review of Systems Review of Systems: All systems reviewed & are unremarkable except as noted in Subjective Physical Exam Physical Exam: General- oriented x 3, not in distress, speaks in sentences with no effort or accessory muscle use Eyes- anicteric Neck- no JVD Lungs- clear breath sounds bilaterally, no rales/wheezes Heart- normal rate, regular rhythm; no murmurs Abdomen- normal bowel sounds, nondistended, soft, nontender Extremities- no pretibial edema, no calf tenderness Positive eschar on the left great toe distal phalanx area, less edema of the left foot Still has moderate tenderness on the left great toe Neuro- alert, oriented x 3; no gross focal neurologic deficits Skin- warm & dry Results & Data Results & Data ([facility]) Vital Signs (Past 12 Hours) Vital Signs Temp Pulse Pulse Resp BP Pulse Ox 07/11/20 15:00 37.0 C 84 83 16 117/72 98 07/11/20 11:47 37.2 C 79 16 103/61 97 07/11/20 08:00 37.5 C 100 H 16 112/67
[2020-07-11] MEDS: TEMAZEPAM 15 MG CAPSULE PO PRN (21:00)
[2020-07-11] MEDS: traZODone HCL 50 MG TAB PO SCH (21:00)
[2020-07-12] MEDS: CEFEPIME 2,000 MG in SYRINGE 0 ML IV SCH ×2 (04:55→17:50)
[2020-07-12] MEDS: SODIUM CHLORIDE 0.45 % 1,000 ML IV SCH (07:15)
[2020-07-12] MEDS: SUCRALFATE 1 GM TAB PO SCH ×4 (08:06→20:54)
[2020-07-12] MEDS: UMECLIDINIUM BROMIDE 62.5MCG/BLISTER 7 PUFFS/INHALER INH SCH (09:10)
[2020-07-12] MEDS: PREGABALIN 75 MG CAP PO SCH ×2 (09:10→20:50)
[2020-07-12] MEDS: MoRPHine SULFATE CR 15 MG TABCR PO SCH ×2 (09:10→20:29)
[2020-07-12] MEDS: HYDROXYUREA 500 MG CAP PO SCH (09:10)
[2020-07-12] MEDS: allopurinoL 100 MG TAB PO SCH (09:10)
[2020-07-12] MEDS: ASPIRIN 81 MG ECTAB PO SCH (09:10)
[2020-07-12] MEDS: PANTOprazole 40 MG TAB PO SCH ×2 (09:10→20:51)
--- NOTE | 2020-07-12 12:29 | Hospitalist Progress Note ---
Date of Service July 12, 2020 Assessment & Plan (1) Sepsis: Sepsis Persistent Left great toe ulcer Left Foot Ulcer -- history of PVD Failed outpatient treatment --Blood cultures 07/09: Negative --Afebrile Continue daptomycin plus cefepime Awaiting [facility] ID service recommendations --Orthopedic service consulted: Does not recommend surgical intervention at this time, continue antibiotics Vascular surgery consulted: Positive biphasic Doppler signals to the foot, does not require vascular surgical intervention at this time Poor IV access --Evaluated by vascular surgery, plan for [id number] placement tomorrow will remove EJ IV access once another IV site placed by IV team NPO after midnight Discussed with tobacco dipper Dr. Mainor Chavez ARF 2 to illness --Continue IV fluids -- labs pending COPD, past tobacco abuse Pulmonary status at baseline hx breast cancer, right, status post surgery, chemoradiation hx pulmonary embolism not on anticoagulation secondary to history GI bleed mood/anxiety disorder, at baseline Chronic pain on narcotics Malnutrition (low BMI) Nutrition consult DVT prophylaxis. Ambulate as tolerated, pharmacologic prophylaxis contraindicated with history of GI bleed, SCDs contraindicated with history PVD Full code Disposition Lives at home Waiting ID service recommendations regarding antibiotic regimen Plan of care discussed with patient in detail at length All questions were answered She is understanding and agreeable, comfortable plan of care Admission and Anticipated Discharge Date Admission Date: July 09, 2020 Subjective ff up for sepsis, left great toe infected ischemic ulcer, left foot cellulitis, etc. Seen sitting up in bed, comfortable, having lunch States she feels fine overall except for pain over the left great toe-gradually improving No fevers or chills Denies chest pain, shortness of breath, palpitations, dizziness No other symptoms Review of Systems Review of Systems: All systems reviewed & are unremarkable except as noted in Subjective Physical Exam Physical Exam: General- oriented x 3, not in distress, speaks in sentences with no effort or accessory muscle use Eyes- anicteric Neck- no JVD Lungs- clear BS BL, no rales/wheezing Heart- normal rate, regular rhythm; no murmurs Abdomen- normal bowel sounds, nondistended, soft, nontender Extremities- no pretibial edema, no calf tenderness Left foot-patient declined exam today Neuro- alert, oriented x 3; no gross focal neurologic deficits Skin- warm & dry Results & Data Results & Data ([facility]) Vital Signs (Past 12 Hours) Vital Signs Temp Pulse Resp BP BP Pulse Ox 07/12/20 07:00 37.0 C 84 16 103/65 96 07/12/20 04:24 36.5 C 107 H 18 105/64 94 Laboratory Results Labs pending
[2020-07-12] MEDS: DAPTOmycin 300 MG in SYRINGE 0 ML IV SCH (15:40)
[2020-07-12 15:54] LABS: BUN Creatinine Ratio 21.7 (10-20); Creatinine Clr Calc Pharmacy 38.8 ml/min; Est GFR (African American) 69.6; Est GFR (Non-African American) 60.1; Potassium 4.7 mmol/L (3.5-5.1)
[2020-07-12 15:59] LABS: Anisocytosis Present; Basophils # (auto) 0.26 K/uL (0-0.2); Basophils % (auto) 2.3 %; Eosinophils # (auto) 0.83 K/uL (0-0.5); Eosinophils % (auto) 7.2 %; Giant Platelets 1+; Hematocrit (blood only) 28.3 % (37-47); Hemoglobin 8.5 g/dL (12.0-16.0); Immature Granulocytes # (auto) 0.05 K/uL (0.00-0.02); Immature Granulocytes % (auto) 0.4 %; Lymphocytes # (auto) 2.18 K/uL (1.2-3.4); Mean Corpuscular Hemoglobin 30.4 pg (25-34); Mean Corpuscular Volume 101.1 fL (80-100); Monocytes # (auto) 1.36 K/uL (0.11-0.59); Monocytes % (auto) 11.9 %; Neutrophils # (auto) 6.79 K/uL (1.4-6.5); Neutrophils % (auto) 59.2 %; Ovalocytes 1+; Platelet Count 698 K/uL (130-400); Target Cells 1+; Tear Drop Cells 1+; White Blood Count 11.47 K/uL (4.8-10.8)
[2020-07-12] MEDS: ACETAMINOPHEN 325 MG TAB PO PRN (17:49)
[2020-07-12] MEDS: oxyCODONE HCL IR 5 MG TAB (IMMEDIATE RELEASE) PO PRN ×2 (17:49→21:46)
[2020-07-12] MEDS: traZODone HCL 50 MG TAB PO SCH (20:50)
[2020-07-12] MEDS: TEMAZEPAM 15 MG CAPSULE PO PRN (20:50)
[2020-07-13] MEDS: CEFEPIME 2,000 MG in SYRINGE 0 ML IV SCH ×2 (05:45→16:59)
--- NOTE | 2020-07-13 07:45 | History & Physical Bridge Note ---
Date of Service July 13, 2020 History & Physical Bridge Note Patient for insertion of an infusaport. I have discussed the risks options and benefits of the procedure with the patient. The patient understands the risks options and benefits and agrees to the procedure. I have examined the patient, reviewed the History & Physical and in the interval since the performance of the History & Physical I have noted the following changes of clinical significance: no changes noted
[2020-07-13] MEDS: HYDROXYUREA 500 MG CAP PO SCH (08:16)
[2020-07-13] MEDS: SUCRALFATE 1 GM TAB PO SCH ×4 (08:16→20:48)
[2020-07-13] MEDS: ASPIRIN 81 MG ECTAB PO SCH (08:16)
[2020-07-13] MEDS: UMECLIDINIUM BROMIDE 62.5MCG/BLISTER 7 PUFFS/INHALER INH SCH (08:17)
[2020-07-13] MEDS: PANTOprazole 40 MG TAB PO SCH ×2 (08:17→20:55)
[2020-07-13] MEDS: allopurinoL 100 MG TAB PO SCH (08:17)
[2020-07-13] MEDS: PREGABALIN 75 MG CAP PO SCH ×2 (08:19→20:55)
[2020-07-13] MEDS: oxyCODONE HCL IR 5 MG TAB (IMMEDIATE RELEASE) PO PRN ×3 (08:19→23:31)
[2020-07-13] MEDS: MoRPHine SULFATE CR 15 MG TABCR PO SCH ×2 (09:00→20:55)
[2020-07-13] MEDS ORDERED: LIDOCAINE HCL 1% 20 ML VIAL ONE (09:35)
[2020-07-13] MEDS ORDERED: HEPARIN 100 UNIT/ML 5ML FLUSH ONE (10:06)
[2020-07-13] MEDS ORDERED: LIDOCAINE/EPINEPHRINE 1% INJ 50 ML VIAL ONE (10:06)
[2020-07-13] MEDS ORDERED: BUPIVACAINE 0.5 % 5 MG/1 ML MPF 30ML VIAL ONE (10:07)
--- NOTE | 2020-07-13 10:19 | Pre Anesthesia Assessment ---
Date of Service July 13, 2020 Pre Sedation Assessment Vital Signs Temp Pulse Pulse Resp BP BP Pulse Ox 07/13/20 08:00 37.1 C 85 18 113/68 97 07/13/20 07:23 84 07/13/20 04:00 36.7 C 79 18 130/64 92 07/13/20 00:00 81 07/12/20 23:00 36.8 C 77 18 111/67 95 07/12/20 19:26 37.2 C 70 18 106/61 93 07/12/20 16:00 78 07/12/20 15:00 37.0 C 85 16 113/65 96 Cardiovascular RRR, no murmur, no edema Respiratory normal respiratory effort, lungs clear to auscultation Pre-Sedation Airway Assessment Smoking Status: Current some day smoker Hx Sleep Apnea: No Hx Difficult Intubation: No Short, Thick Neck: No Thyromental Distance: > or= 3.5 Finger Breadths Oral Cavity: + WNL Mallampati Class: II ASA: ASA3 NPO Status Date of Last Intake of Fluids: 07/13/20 Time of Last Intake of Fluids: 06:00 Date of Last Intake of Solid Food: 07/12/20 Time of Last Intake of Solid Foods: 21:00 Procedure Planning Contraindications for Sedation: none Current Medications Reviewed: Yes Notes The planned sedation has been discussed with the patient. Informed Consent was obtained. I have identified the patient, determined the appropriateness of sedation and have assessed the patient immediately prior to the procedure. All medicine(s) and interventions are by my order.
[2020-07-13] MEDS ORDERED: MIDAZOLAM HCL 1 MG/ML 2ML VIAL ONE (10:32)
[2020-07-13] MEDS ORDERED: fentaNYL citrate 100 MCG/2 ML VIAL ONE ×2 (10:32→10:45)
--- NOTE | 2020-07-13 11:13 | Procedure Note ---
Angiogram Post Procedure Fluoroscopy Time (minutes): 0.3 Conscious Sedation Time (minutes): 30 Radiation (mGy): 2 Post Operative Report Pre & Post Diagnosis Operation Date: 07/13/20 10:00 Pre-Op Diagnosis: Lack of Venous Access Post-Op Diagnosis: Lack of Venous Access I identified the patient and participated in the time-out.: Yes Procedure Operation Date: 07/13/20 10:00 Actual Procedures p Insertion of Infusaport, Left Internal Jugular Approach, Ultrasound Localization of Right Internal Jugular Vein, Fluoroscpy for Positioning; Moderate Sedation From 1042 to 1112.(Left) - Jean Paul Pascal MD Surgeon Jean Paul Pascal MD Inventory Controller None Estimated Blood Loss 5 Findings Consistent with Post-Op Diagnosis Specimens None Anesthesia Type RN Sedation Complications none Disposition Accompanied Patient To Recovery: No Disposition: Recovery Room Indications This is 79-year-old female with very poor venous access. She is in need of long-term antibiotics. Port was recommended. I have discussed the risks options and benefits of the procedure with the patient. The patient understands the risks options and benefits and agrees to the procedure. Description of Procedure Patient was taken to the angio suite and placed in the supine position. The left side of the neck and chest wall were prepped and draped in a sterile manner. The patient was identified and a timeout performed. Local anesthesia was then administered to the appropriate areas of the neck and chest wall. A transverse incision was made below the clavicle on the chest wall and an inferior pocket was make. Bleeding was controlled using cautery. Ultrasound was then used to locate the left internal jugular vein. The vein compressed easily, had no filing defects, and was patent. The vein was then punctured under direct ultrasound imaging. A guidewire was then passed centrally under fluoroscopic imaging. The port catheter was then passed from the pocket incision to the puncture site in the neck using the tunneling device. The peel away sheath was inserted. The catheter was then beveled at the tip and inserted through the peel away sheath. The tip was then positioned in the distal SCV. It was then attached to the port and the catheter clamp applied. The port was then placed in the pocket and sutured to the chest fascia using prolene suture. The puncture site was then closed using a 4-0 Vicryl subcuticular suture. The chest incision was closed using a 3-0 Vicryl suture for the subcutaneous layer and a 4-0 Vicryl subcuticular stitch for the skin layer. Dermabond was used for a dressing on the puncture site and the incision. The port aspirated and flush ed easily and was then flushed with heparinized saline. The patient left the operation room in satisfactory condition and tolerated the procedure well. All needle and sponge counts were correct at the end of the procedure. I attest to the content of the Intraoperative Record and any orders documented therein. Any exceptions are noted below.
--- NOTE | 2020-07-13 11:13 | Post Anesthesia Assessment ---
Date of Service July 13, 2020 Post Sedation Assessment Vital Signs Temp Pulse Pulse Resp BP BP BP 07/13/20 11:07 91 H 15 97/49 L 07/13/20 11:02 91 H 15 94/53 L 07/13/20 10:57 91 H 15 102/42 L 07/13/20 10:52 88 15 107/47 L 07/13/20 10:47 82 15 125/49 L 07/13/20 10:42 78 12 131/56 L 07/13/20 10:38 79 15 145/56 H 07/13/20 09:50 36.6 C 83 20 119/61 07/13/20 08:00 37.1 C 85 18 113/68 07/13/20 07:23 84 07/13/20 04:00 36.7 C 79 18 130/64 07/13/20 00:00 81 07/12/20 23:00 36.8 C 77 18 111/67 07/12/20 19:26 37.2 C 70 18 106/61 07/12/20 16:00 78 07/12/20 15:00 37.0 C 85 16 113/65 Pulse Ox 07/13/20 11:07 100 07/13/20 11:02 100 07/13/20 10:57 100 07/13/20 10:52 100 07/13/20 10:47 100 07/13/20 10:42 100 07/13/20 10:38 99 07/13/20 09:50 92 07/13/20 08:00 97 07/13/20 07:23 07/13/20 04:00 92 07/13/20 00:00 07/12/20 23:00 95 07/12/20 19:26 93 07/12/20 16:00 07/12/20 15:00 96 Recovery Score Activity: Moves 4 extremities Respiration: Deep Breath/Cough Circulation: +/-20% PreAnes Value Consciousness: Arouseable (by name) Oxygen Saturation: O2 needed for >90% Post Anesthesia Score: 8 Discharge Sedation Level of Care: Fast Track Phase II Post Sedation Plan On clinical assessment, the patient appears to have tolerated the sedation without complications. Patient is recovering as anticipated. Patient will continue to be monitored by nursing and may be discharged when sedation discharge criteria are met per below protocol. Upon Completions of procedure up to 15 minutes continue every 5 minute vital signs and the P.A.R. score; then discharge to a Phase I or Fast Track to Phase II per the following guidelines: * Discharge Patient to appropriate Phase II area if PAR is 8 or greater or return to pre- procedure baseline. The post - procedure orders will be as directed. * If PAR score is less than 8 or not return to pre-procedure baseline then patient will follow Phase I monitoring till PAR is reached for Phase II. The Phase I may be done in procedure room or may call to secure a Phase I area. * If naloxone or flumazenil are used for reversal, hold in Phase I for continued monitoring from when last reversal dose was given for a minimum of 60 minutes or longer pending the nurse and/or physician discretion of patient condition before discharge to Phase II. Please call the Sedation Physician to re-evaluate and complete post-note for discharge to Phase II area. Do NOT discharge from procedure sedation or Phase 1 until post- sedation evaluation note is complete by procedure /sedation MD Sedation Discharge Instructions to be given to the patient at discharge to home.
[2020-07-13 11:56] LABS: Hematocrit (blood only) 29.8 % (37-47); Hemoglobin 9.1 g/dL (12.0-16.0); Mean Corpuscular Hemoglobin 30.4 pg (25-34); Mean Corpuscular Hgb Conc 30.5 g/dL (32-36); Mean Corpuscular Volume 99.7 fL (80-100); Mean Platelet Volume 12.4 fL (7.4-10.4); Nucleated RBC # (auto) 0.05 K/uL (0-0); Nucleated RBC % (auto) 0.4 %; Platelet Count 442 K/uL (130-400); RDW Coefficient of Variation 22.1 % (11.5-14.5); RDW Standard Deviation 73.6 fL (36.4-46.3); Red Blood Count 2.99 M/uL (4.2-5.4)
[2020-07-13 12:19] LABS: Creatinine Clr Calc Pharmacy 39.7 ml/min; Est GFR (African American) 71.5; Est GFR (Non-African American) 61.7
[2020-07-13] MEDS: ACETAMINOPHEN 325 MG TAB PO PRN (15:18)
[2020-07-13] MEDS: DAPTOmycin 300 MG in SYRINGE 0 ML IV SCH (15:19)
[2020-07-13] MEDS: ACETAMINOPHEN 325 MG TAB PO SCH ×2 (16:59→20:54)
--- NOTE | 2020-07-13 17:33 | Hospitalist Progress Note ---
Date of Service July 13, 2020 Assessment & Plan (1) Sepsis: Sepsis Persistent Left great toe ulcer Left Foot Ulcer -- history of PVD Failed outpatient treatment --Blood cultures 07/09: Negative --Afebrile Continue daptomycin plus cefepime Aracelis WALKER service recommendation: recommend amputation of the toe --Orthopedic service consulted, discussed with Dr. Kahn, patient for toe amputation tomorrow no medical contraindication for surgery patient at moderate risk for cardiopulmonary complications given age, comorbidities patient agrees, vebalized understanding, wishes to proceed Vascular surgery consulted: Positive biphasic Doppler signals to the foot, does not require vascular surgical intervention at this time Poor IV access -- received regular blood transfusion for MDS --Evaluated by vascular surgery s/p Placement of Port on the left chest wall 07/13/[address] Pascal will remove EJ IV access once another IV site placed by IV team NPO after midnight Discussed with grey inspector Dr. Mainor Chavez Acute Renal Failure 2 to illness -- resolved with IV fluids COPD, past tobacco abuse -- Pulmonary status at baseline hx breast cancer, right, status post surgery, chemoradiation hx pulmonary embolism not on anticoagulation secondary to history GI bleed mood/anxiety disorder, at baseline Chronic pain on narcotics Malnutrition (low BMI) Nutrition consult DVT prophylaxis. Ambulate as tolerated, pharmacologic prophylaxis contraindicated with history of GI bleed, SCDs contraindicated with history PVD Full code Disposition Lives at home willl need PT/OT after Toe Amputation Plan of care discussed with patient in detail at length All questions were answered She is understanding and agreeable, comfortable plan of care Admission and Anticipated Discharge Date Admission Date: July 09, 2020 Subjective ff up for sepsis, infected toe ulcer seen resting in bed, comfortable reports pain on the affected toe and foot denies fever/chills no chest pain, dyspnea, palpitations, dizziness no other symptoms discussed case with patient in detail, at length she is now agreeable with toe amputation discussed with Dr. Kahn, for OR tomorrow Review of Systems Review of Systems: All systems reviewed & are unremarkable except as noted in Subjective Physical Exam Physical Exam: General- oriented x 3, not in distress, speaks in sentences with no effort or accessory muscle use Eyes- anicteric Neck- no JVD Lungs- clear breath sounds bilaterally, no wheezing, no rales Heart- normal rate, regular rhythm; no murmurs Abdomen- normal bowel sounds, nondistended, soft, nontender Extremities- no pretibial edema, no calf tenderness left toe: (+) eschar, no bleeding or discharge, edema much better left foot: mild erythema, edema has resolved Neuro- alert, oriented x 3; no gross focal neurologic deficits Skin- warm & dry Results & Data Results & Data ([facility]) Vital Signs (Past 12 Hours) Vital Signs Temp Pulse Pulse Resp BP BP BP 07/13/20 16:00 36.8 C 89 18 106/57 L 07/13/20 12:01 36.5 C 74 16 106/59 L 07/13/20 11:34 36.6 C 85 22 137/66 07/13/20 11:12 91 H 15 102/53 L 07/13/20 11:07 91 H 15 97/49 L 07/13/20 11:02 91 H 15 94/53 L 07/13/20 10:57 91 H 15 102/42 L 07/13/20 10:52 88 15 107/47 L 07/13/20 10:47 82 15 125/49 L 07/13/20 10:42 78 12 131/56 L 07/13/20 10:38 79 15 145/56 H 07/13/20 09:50 36.6 C 83 20 119/61 07/13/20 08:00 37.1 C 85 18 113/68 07/13/20 07:23 84 Pulse Ox 07/13/20 16:00 90 07/13/20 12:01 96 07/13/20 11:34 85 L 07/13/20 11:12 99 07/13/20 11:07 100 07/13/20 11:02 100 07/13/20 10:57 100 07/13/20 10:52 100 07/13/20 10:47 100 07/13/20 10:42 100 07/13/20 10:38 99 07/13/20 09:50 92 07/13/20 08:00 97 07/13/20 07:23 Laboratory Results Laboratory Results - last 24 hr 07/13/20 07/13/20 11:37 11:37 WBC 12.20 H RBC 2.99 L Hgb 9.1 L Hct 29.8 L MCV 99.7 MCH 30.4 MCHC 30.5 L RDW Std Deviation 73.6 H RDW Coeff of Radha 22.1 H Plt Count 442 H MPV 12.4 H Absolute Nucleated RBC 0.05 H Nucleated RBC % (auto) 0.4 Creatinine 0.90 Est Cr Clr Drug Dosing 39.7 Est GFR ( Amer) 71.5 Est GFR (Non-Af Amer) 61.7
[2020-07-13] MEDS: traZODone HCL 50 MG TAB PO SCH (20:55)
[2020-07-13] MEDS: TEMAZEPAM 15 MG CAPSULE PO PRN (21:32)
[2020-07-14] MEDS: CEFEPIME 2,000 MG in SYRINGE 0 ML IV SCH ×2 (05:48→17:23)
--- NOTE | 2020-07-14 08:39 | Orthopedic Progress Note ---
Date of Service July 14, 2020 Assessment & Plan (1) Embolic disease of toe: She is npo at this time. She has been on chronic antibiotics for this toe. She does now want to proceed with amputation of the great toe with Dr. Kahn today. Procedure explalned including risk, alternatives, and benefits of the procedure. Consent obtained. Present on Admission?: Yes Admission and Anticipated Discharge Date Admission Date: July 09, 2020 Subjective 79 year old female with necrotic left great toe. She continues to have pain. She is now wanting to proceed with amputation of the toe. No other orthopedic complaints. Physical Exam Physical Exam: Alert and oriented. NAD Left great toe: necrotic area on the lateral great toes. Mild swelling. No erythema extending into her foot or leg. Tender to palpation of the great toe. Results & Data ([facility]) Vital Signs (Past 12 Hours) Vital Signs Temp Pulse Pulse Resp BP Pulse Ox 07/14/20 07:58 36.7 C 78 15 97/61 L 94 07/13/20 23:23 93 07/13/20 23:15 36.7 C 85 14 104/61 87 L 07/13/20 21:52 36.4 C L 80 16 131/83 93 PG Care Time/CCT Total # of Minutes Spent Total Time Spent with Patient: Total time spent is greater than 50% in coordination of care (as documented) at patient's floor/unit and/or counseling patient: Coding Level of Care Code None Diagnoses Embolic disease of toe I74.3
[2020-07-14] MEDS: HYDROXYUREA 500 MG CAP PO SCH (08:54)
[2020-07-14] MEDS: ASPIRIN 81 MG ECTAB PO SCH (08:54)
[2020-07-14] MEDS: ACETAMINOPHEN 325 MG TAB PO SCH ×4 (08:55→20:00)
[2020-07-14] MEDS: PANTOprazole 40 MG TAB PO SCH ×2 (08:55→19:56)
[2020-07-14] MEDS: UMECLIDINIUM BROMIDE 62.5MCG/BLISTER 7 PUFFS/INHALER INH SCH (08:55)
[2020-07-14] MEDS: allopurinoL 100 MG TAB PO SCH (08:56)
[2020-07-14] MEDS: MoRPHine SULFATE CR 15 MG TABCR PO SCH ×2 (09:00→19:53)
[2020-07-14] MEDS: PREGABALIN 75 MG CAP PO SCH ×2 (09:00→19:52)
[2020-07-14 09:12] LABS: Creatinine Clr Calc Pharmacy 34.1 ml/min; Est GFR (African American) 59.3; Est GFR (Non-African American) 51.2
[2020-07-14] MEDS: SUCRALFATE 1 GM TAB PO SCH ×4 (10:57→19:56)
[2020-07-14] MEDS ORDERED: BUPIVACAINE 0.5 % 5 MG/1 ML MPF 30ML VIAL ONE (11:47)
[2020-07-14] MEDS ORDERED: LIDOCAINE HCL 1% 20 ML VIAL ONE (11:47)
--- NOTE | 2020-07-14 12:08 | Anesthesiology Consultation ---
Date of Service July 14, 2020 Assessment & Plan (1) Encounter for pre-operative examination: Chart Review Chart Review: Acceptable Risk for Surgery and Patient NOT seen in Pre Admission Testing Consults Requested none ASA ASA4 Proposed Anesthesia Anesthesia Type: MAC Risk / Benefits Reviewed With: PT / POA / Parent / Guardian, Accepts Plan and In formed Consent Obtained History Surgery Operation Date: 07/13/20 10:00 Proposed Procedures p Insertion of Port - Jean Paul Pascal MD Operation Date: 07/14/20 12:30 Proposed Procedures p Left Great Toe Amputation - Russ Kahn MD Height/Weight Height: 5 ft 4 in Weight: 48.1 kg Allergies Allergy/AdvReac Type Severity Reaction Status Date / Time latex Allergy Intermediate HIVES Verified 07/09/20 21:19 nickel Allergy Intermediate Hives/Itchi Verified 07/09/20 21:19 ness shellfish derived Allergy Intermediate Hives Verified 07/09/20 21:19 Iodinated Contrast Media AdvReac Mild Diarrhea Verified 07/09/20 21:19 [Iodinated Contrast- Oral and IV Dye] Lobster Allergy Severe HIVES Uncoded 07/09/20 21:19 Medications Home Medications Medication Instructions Recorded Confirmed Last Taken pantoprazole [Protonix] 40 mg PO BID 06/06/18 07/09/20 07/09/20 08:00 pregabalin [Lyrica] 75 mg PO BID 06/06/18 07/09/20 07/09/20 08:00 temazepam [Restoril] 30 mg PO HS PRN 06/06/18 07/09/20 03/23/20 22:00 Spiriva with HandiHaler 1 cap INHALATION QAM 12/17/19 07/09/20 07/09/20 albuterol sulfate 2.5 mg INHALATION Q4H PRN 12/17/19 07/09/20 01/23/20 albuterol sulfate [Ventolin HFA] 2 puff INHALATION QID PRN 12/17/19 07/09/20 03/24/20 13:00 amitriptyline 75 mg PO HS 12/17/19 07/09/20 07/08/20 fluticasone propion-salmeterol 1 inh INHALATION BID 12/17/19 07/09/20 07/09/20 08:00 [Advair Diskus] loperamide 2 mg PO Q4H PRN 12/17/19 07/09/20 Unknown olopatadine 1 drp OPB BID PRN 12/17/19 07/09/20 03/24/20 10:00 trazodone 50 mg PO HS 12/17/19 07/09/20 07/08/20 acetaminophen [Tylenol] 325 mg PO QID PRN 01/23/20 07/09/20 01/22/20 bismuth subsalicylate 524 mg PO QID PRN 04/01/20 07/09/20 Unknown [Pepto-Bismol] ondansetron HCl 8 mg PO Q12H PRN 04/01/20 07/09/20 Unknown risedronate [Actonel] 35 mg PO WK 04/01/20 07/09/20 Unknown rizatriptan [Maxalt] 10 mg PO .DAILY/UD PRN 04/01/20 07/09/20 Unknown sucralfate [Carafate] 1 gm PO ACHS 04/01/20 07/09/20 07/09/20 17:00 hydroxyurea 500 mg PO DAILY 04/22/20 07/09/20 07/09/20 morphine 15 mg PO Q12H 05/28/20 07/09/20 07/09/20 08:00 oxycodone 5 mg PO Q8H PRN 05/28/20 07/09/20 Unknown anagrelide 1 mg PO BID #60 cap 05/29/20 07/09/20 07/09/20 08:00 allopurinol 100 mg PO DAILY 06/15/20 07/09/20 07/09/20 aspirin 81 mg PO DAILY 06/15/20 07/09/20 07/09/20 tedizolid [Sivextro] 200 mg PO DAILY 07/02/20 07/09/20 07/09/20 Active Medications Generic Name Dose Route Start Last Admin Trade Name Freq PRN Reason Stop Dose Admin Acetaminophen 650 mg 07/13/20 17:00 07/14/20 08:55 Acetaminophen 325 Mg Tab PO 08/12/20 16:59 650 mg QID SHORTY Administration Allopurinol 100 mg 07/10/20 09:00 07/14/20 08:56 Allopurinol 100 Mg Tab PO 08/09/20 08:59 100 mg DAILY SHORTY Administration Aspirin 81 mg 07/10/20 09:00 07/14/20 08:54 Aspirin 81 Mg Ectab PO 08/09/20 08:59 81 mg DAILY SHORTY Administration Hydroxyurea 500 mg 07/10/20 09:00 07/14/20 08:54 Hydroxyurea 500 Mg Cap PO 08/09/20 08:59 500 mg DAILY SHORTY Administration Daptomycin 300 mg/ Syringe 6 mls @ 3 mls/min 07/13/20 16:00 07/13/20 15:19 IV 08/21/20 15:59 3 mls/min Q24H SHORTY Administration Protocol Cefepime HCl 2,000 mg/ Syringe 20 mls @ 5 mls/min 07/12/20 17:00 07/14/20 05:48 IV 08/21/20 16:59 5 mls/min Q12H SHORTY Administration Protocol Morphine Sulfate 15 mg 07/10/20 00:10 07/14/20 09:00 Morphine Sulfate Cr 15 Mg Tabcr PO 07/24/20 00:09 15 mg Q12 SHORTY Administration Oxycodone HCl 5 mg 07/10/20 00:10 07/13/20 23:31 Oxycodone Hcl Ir 5 Mg Tab (Immediate Release) PO 07/24/20 00:09 5 mg Q4H PRN Administration Breakthrough Pain Pantoprazole Sodium 40 mg 07/10/20 09:00 07/14/20 08:55 Pantoprazole 40 Mg Tab PO 08/09/20 08:59 40 mg BID SHORTY Administration Pregabalin 75 mg 07/10/20 09:00 07/14/20 09:00 Pregabalin 75 Mg Cap PO 08/09/20 08:59 75 mg BID SHORTY Administration Sucralfate 1 gm 07/10/20 07:30 07/14/20 11:32 Sucralfate 1 Gm Tab PO 08/09/20 07:29 Not Given ACHS SHORTY Temazepam 30 mg 07/10/20 00:10 07/13/20 21:32 Temazepam 15 Mg Capsule PO 08/09/20 00:09 30 mg HS PRN Administration Sleep Trazodone HCl 50 mg 07/10/20 21:00 07/13/20 20:55 Trazodone Hcl 50 Mg Tab PO 08/09/20 20:59 50 mg HS SHORTY Administration Umeclidinium [place] 1 puffs 07/10/20 09:00 07/14/20 08:55 Umeclidinium [place] 62.5mcg/Blister 7 Puffs/Inhaler INH 08/09/20 08:59 1 puffs QAM SHORTY Administration NPO Date Last Intake of Fluids: 07/13/20 Time Last Intake of Fluids: 22:00 Last Intake of Fluids Comment: meds this am with sip of water Date Last Intake of Solids: 07/14/20 Time Last Intake of Solids: 18:00 Past Medical History Medical History Abrasion of great toe, left, infected CKD (chronic kidney disease), stage III COPD (chronic obstructive pulmonary disease) Embolic disease of toe History of breast cancer chemo History of MRSA infection "left hip wound" History of peptic ulcer disease IBS (irritable bowel syndrome) Diarrhea predominant ; follows with GI Leukocytosis MDS/MPN (myelodysplastic/myeloproliferative neoplasms) Myelodysplastic syndrome Pelvic fracture 12/2018 pelvic fracture and monitor Poor intravenous access Pulmonary emboli 12/2019 just monitored Pulmonary nodules CT 01/23/20: 5 mm RML 3 mm RML 3 mm DEVEN 4 mm RUL S/P ORIF (open reduction internal fixation) fracture fracture hip x 5 and then had ORIF Subcapsular hemorrhage of spleen Thrombocytosis Exercise / Class Metabolic Activity III < 4 Walking/Shop/Light housework Negative for chest pain or shortness of breath. Past Family History Family History Mother Heart disease Past Surgical History Surgical History H/O mastectomy modified radical masectomy H/O: hysterectomy History of cholecystectomy Hx of esophagogastroduodenoscopy Status post mastectomy "modified right mastectomy 1990" Status post total hip replacement, left had after ORIF hip Past Anesthesia History No Hx of Anesthesia Complications History of PONV No Hx of PONV Social History Smoking Status: Current some day smoker tobacco type: cigarettes Do You Dip or Chew Tobacco: No Hx Alcohol Use: No Hx Substance Use: No substance use type: does not use Review of Systems Patient denies active symptoms of GERD. Physical Exam Vital Signs Last Vital Signs Temp 36.8 C 07/14/20 11:26 Pulse 74 07/14/20 11:26 Resp 18 07/14/20 11:26 BP 114/81 07/14/20 11:26 Pulse Ox 100 07/14/20 11:26 Constitutional not obese ENMT Mouth: + edentulous; no TMJ abnormality and oral opening not small Thyromental Distance: > or= 3.5 Finger Breadths Mallampati Class: II Neck normal visual inspection; neck extension not limited Respiratory normal respiratory effort Auscultation: lungs clear to auscultation bilaterally Cardiovascular Rate/Rhythm: regular rate and regular rhythm Heart Sounds: no murmur Neurologic moves all extremities Psychiatric Orientation: alert and oriented x 3 Testing Laboratory Results 07/13/20 11:37 07/14/20 08:25 Urine Color Yellow 07/10/20 05:42 Urine Appearance Clear (Clear) 07/10/20 05:42 Urine pH 5.0 (4.5-7.5) 07/10/20 05:42 Ur Specific [place] 1.025 (1.000-1.030) 07/10/20 05:42 Urine Protein Trace (Negative) H 07/10/20 05:42 Urine Glucose (UA) Negative (Negative) 07/10/20 05:42 Urine Ketones Negative (Negative) 07/10/20 05:42 Urine Nitrite Negative (Negative) 07/10/20 05:42 Ur Leukocyte Esterase Negative (Negative) 07/10/20 05:42 Urine WBC (Auto) 1-5 /hpf (0-5) 07/10/20 05:42 Urine RBC (Auto) 0-4 /hpf (0-4) 07/10/20 05:42 U Hyaline Cast (Auto) 1-5 /lpf (0-5) 07/10/20 05:42 U Epithel Cells (Auto) 20-30 /lpf (0-5) H 07/10/20 05:42 Urine Bacteria (Auto) Negative (Negative) 07/10/20 05:42 Blood Type A Positive 07/13/20 22:40 Antibody Screen NEGATIVE 07/13/20 22:40 07/09/20 22:26 Aerobic Blood Culture - Preliminary Blood No growth in Aerobic bottle after 48 hours. Anaerobic Blood Culture - Preliminary No growth in Anaerobic bottle after 48 hours.
[2020-07-14] MEDS ORDERED: MIDAZOLAM HCL 1 MG/ML 2ML VIAL ONE (12:23)
[2020-07-14] MEDS ORDERED: ATROPINE SULFATE 0.1 MG/ML 10ML SYR IV PRN (12:59)
[2020-07-14] MEDS ORDERED: ePHEDrine sulfate 50 MG/ML AMP IV PRN (12:59)
[2020-07-14] MEDS ORDERED: ONDANSETRON INJ 2 MG/ML 2 ML VIAL IV PRN ×2 (12:59→14:20)
[2020-07-14] MEDS ORDERED: fentaNYL citrate 100 MCG/2 ML VIAL IV PRN (12:59)
--- NOTE | 2020-07-14 13:32 | Operative Report ---
Post Operative Report Pre & Post Diagnosis Operation Date: 07/13/20 10:00 Pre-Op Diagnosis: Lack of Venous Access Post-Op Diagnosis: Lack of Venous Access Operation Date: 07/14/20 12:30 Pre-Op Diagnosis: Ischemic Left Great Toe with full-thickness skin necrosis and gangrene Post-Op Diagnosis: Ischemic Left Great Toe with full-thickness skin necrosis and gangrene I identified the patient and participated in the time-out.: Yes Procedure Operation Date: 07/13/20 10:00 Actual Procedures p Insertion of Infusaport, Left Internal Jugular Approach, Ultrasound Localization of Right Internal Jugular Vein, Fluoroscpy for Positioning; Moderate Sedation From 1042 to 1112.(Left) - Jean Paul Pascal MD Operation Date: 07/14/20 12:30 Actual Procedures p Left Great Toe Amputation(Left) - Russ Kahn MD Surgeon Russ Kahn MD Transverse Abdominal Muscle Surgeon LEVY Sarabia Estimated Blood Loss 3 Findings Consistent with Post-Op Diagnosis Specimens Left toe sent for pathology Complications none Disposition Accompanied Patient To Recovery: Yes Disposition: Recovery Room Indications Patient is a 79-year-old female with multiple medical comorbidities whose developed an ischemic left great toe. She had obvious necrosis of the skin on the distal half of the toe. She had recurrent bouts of infection. She was treated conservatively and this continues to cause recurrent bouts of infection. She was seen by vascular and not felt there was any further a vascular invention warranted. Patient indicated for amputation. Description of Procedure Patient was taken to the operating identified and placed on the operating table supine position protectors were properly padded. The patient had been receiving IV antibiotics preoperatively. A left ankle tourniquet was placed. Some IV sedation was provided. A digital block was then performed using a 20 cc of a 50-50 combination of half percent Marcaine and 1% lidocaine. The left foot was then scrubbed with Hibiclens and then prepped with ChloraPrep and draped in usual sterile fashion. The left leg was elevated but not exsanguinated. The tourniquet was placed at 300 mmHg. A fishmouth incision was made at the base of the great toe proximal to the area of necrosis. Full-thickness flaps were elevated and developed directly down to the bone. Full-thickness flaps were elevated dorsally and plantarly in the toe was disarticulated at the MTP joint. The flexor and extensor tendons were then identified, traction was applied, they were cut, and allowed to retract. The wound was then irrigated. The tourniquet was let down for turn time 7 minutes. Hemostasis assured use electrocautery. The wound was once again irrigated. The skin was then closed with 3-0 nylon suture in simple fashion. The leg was then cleaned dried a sterile dressing composed Xeroform, 4 x 4's, sterile cast padding, and a Coban wrap followed by postop shoe were applied. Patient transferred to the recovery room in stable condition. The patient tolerated procedure well and there were no complications. Filemon Sarabia, my physician clinical data assistant, was present for the entire procedure. His assistance was required for appropriate patient positioning, prepping and draping, surgical exposure, retraction, closure of the wound, placement of a sterile bandage and the postoperative shoe. I attest to the content of the Intraoperative Record and any orders documented therein. Any exceptions are noted below.
--- NOTE | 2020-07-14 13:59 | Anesthesiology Progress Note ---
Date of Service July 14, 2020 Anesthesia Post Procedure Vital Signs Vital Signs: Temp Pulse Pulse Pulse Resp BP BP 07/14/20 13:50 36.1 C L 69 15 113/62 07/14/20 13:40 70 14 115/60 07/14/20 13:30 36.0 C L 76 15 149/68 H 07/14/20 11:26 36.8 C 74 74 18 114/81 07/14/20 07:58 36.7 C 78 15 97/61 L 07/13/20 23:23 07/13/20 23:15 36.7 C 85 14 104/61 07/13/20 21:52 36.4 C L 80 16 131/83 07/13/20 16:00 36.8 C 89 18 106/57 L Pulse Ox 07/14/20 13:50 94 07/14/20 13:40 94 07/14/20 13:30 100 07/14/20 11:26 100 07/14/20 07:58 94 07/13/20 23:23 93 07/13/20 23:15 87 L 07/13/20 21:52 93 07/13/20 16:00 90 Pain Intensity Left Leg: Pain Intensity: 0 Transfer of Care Handoff Completed per policy Notes Mental Status: alert / awake / arousable and participated in evaluation Nausea / Vomiting: adequately controlled Pain: adequately controlled Airway Patency, RR, SpO2: stable & adequate BP & HR: stable & adequate Hydration State: stable & adequate Anesthetic Complications: no major complications apparent and Pt Satisfied with anesthetic care
[2020-07-14] MEDS ORDERED: METOCLOPRAMIDE HCL INJ 5 MG/ML 2 ML VIAL IV PRN (14:20)
[2020-07-14] MEDS ORDERED: RIZATRIPTAN BENZOATE 10 MG TAB PO PRN (14:20)
[2020-07-14] MEDS ORDERED: NALOXONE HCL 0.4 MG/1 ML VIAL/CARP IV PRN (14:20)
[2020-07-14] MEDS ORDERED: ONDANSETRON 8MG OD TAB PO PRN (14:29)
[2020-07-14] MEDS ORDERED: ALUMINUM/MAGNESIUM SUSP 30 ML UDC PO PRN (14:30)
[2020-07-14] MEDS ORDERED: BISMUTH SUBSALICYLATE SUSP PO PRN (14:30)
[2020-07-14] MEDS ORDERED: MAGNESIUM HYDROXIDE SUSP 30 ML UDC PO PRN (14:30)
[2020-07-14] MEDS ORDERED: bisacodyL 10 MG SUPP PR PRN (14:30)
[2020-07-14] MEDS ORDERED: LOPERAMIDE HCL 2 MG CAP PO PRN (14:30)
[2020-07-14] MEDS: SODIUM CHLORIDE 0.9% 1000ML 1,000 ML IV SCH (14:30)
[2020-07-14] MEDS ORDERED: ALBUTEROL 0.083% NEBU SOLN 3 ML VIAL INH PRN (15:00)
[2020-07-14] MEDS ORDERED: ALBUTEROL HFA 8 GM INHALER INH PRN (15:00)
[2020-07-14] MEDS: DAPTOmycin 300 MG in SYRINGE 0 ML IV SCH (16:00)
[2020-07-14] MEDS: HYDROmorphone INJ 0.5 MG/0.5 ML SYR IV PRN ×2 (16:51→20:45)
[2020-07-14] MEDS: FERROUS GLUCONATE 324 MG TAB PO SCH (17:23)
[2020-07-14] MEDS: oxyCODONE HCL IR 5 MG TAB (IMMEDIATE RELEASE) PO PRN (19:52)
[2020-07-14] MEDS: DOCUSATE SODIUM 100 MG CAP PO SCH (19:56)
[2020-07-14] MEDS: SENNA 8.6 MG TAB PO SCH (19:56)
[2020-07-14] MEDS: traZODone HCL 50 MG TAB PO SCH (20:00)
[2020-07-14] MEDS: TEMAZEPAM 15 MG CAPSULE PO PRN (20:45)
--- NOTE | 2020-07-14 21:26 | Hospitalist Progress Note ---
Date of Service July 14, 2020 Assessment & Plan (1) Sepsis: Sepsis Secondary to persistent infected left great toe ischemic ulcer -- history of PVD Failed outpatient treatment --Blood cultures 07/09: Negative --Sepsis resolved, now afebrile given daptomycin plus cefepime Aracelis WALKER service recommendation: recommend amputation of the toe --Status post amputation of the left great toe 07/14/2020 Continue IV daptomycin plus cefepime Follow-up cultures Aracelis WALKER recommends to transition to p.o. linezolid and Cipro upon discharge (please refer to infectious disease consultation note) -- Vascular surgery consulted: Positive biphasic Doppler signals to the foot, does not require vascular surgical intervention at this time Poor IV access -- received regular blood transfusion for MDS --Evaluated by vascular surgery s/p Placement of Yngvgj-z-Pady on the left chest wall 07/13/[address] Pascal Discussed with print developer automatic Dr. Mainor Chavez, will need to follow-up with Dr. Mainor Chavez for maintenance of [id number] Acute Renal Failure 2 to illness -- resolved with IV fluids COPD, past tobacco abuse -- Pulmonary status at baseline hx breast cancer, right, status post surgery, chemoradiation hx pulmonary embolism not on anticoagulation secondary to history GI bleed mood/anxiety disorder, at baseline Chronic pain on narcotics Malnutrition (low BMI) Nutrition consult DVT prophylaxis. Ambulate as tolerated, pharmacologic prophylaxis cont raindicated with history of GI bleed, SCDs contraindicated with history PVD Full code Disposition Lives at home willl need PT/OT after Toe Amputation, may need to transition to rehab prior to returning home Plan of care discussed with patient in detail at length All questions were answered She is understanding and agreeable, comfortable plan of care Admission and Anticipated Discharge Date Admission Date: July 09, 2020 Subjective Follow-up for persistent left great toe ischemic ulcer infection Status post amputation of the left great toe Seen sitting up in bed, comfortable, not in distress Reports pain over the surgical site, controlled with pain medication so far No nausea vomiting, chest pain, shortness of breath, dizziness No other symptoms Review of Systems Review of Systems: All systems reviewed & are unremarkable except as noted in Subjective Physical Exam Physical Exam: General- oriented x 3, not in distress, speaks in sentences with no effort or accessory muscle use Eyes- anicteric Neck- no JVD Lungs- clear breath sounds bilaterally, no rales/wheezes Heart- normal rate, regular rhythm; no murmurs Abdomen- normal bowel sounds, nondistended, soft, nontender Extremities- no pretibial edema, no calf tenderness Left foot has a dressing in place: No bleeding or discharge Neuro- alert, oriented x 3; no gross focal neurologic deficits Skin- warm & dry Results & Data Results & Data ([facility]) Vital Signs (Past 12 Hours) Vital Signs Temp Pulse Pulse Pulse Pulse Resp BP 07/14/20 20:14 36.5 C 73 16 128/84 07/14/20 17:29 36.4 C L 74 16 133/78 07/14/20 16:10 36.6 C 82 16 139/76 07/14/20 15:14 36.7 C 83 16 122/69 07/14/20 14:50 78 16 114/64 07/14/20 14:20 36.5 C 69 16 116/65 07/14/20 13:50 36.1 C L 69 15 113/62 07/14/20 13:40 70 14 115/60 07/14/20 13:30 36.0 C L 76 15 149/68 H 07/14/20 11:26 36.8 C 74 74 18 BP Pulse Ox 07/14/20 20:14 92 07/14/20 17:29 91 07/14/20 16:10 91 07/14/20 15:14 93 07/14/20 14:50 94 07/14/20 14:20 94 07/14/20 13:50 94 07/14/20 13:40 94 07/14/20 13:30 100 07/14/20 11:26 114/81 100 Laboratory Results Laboratory Results - last 24 hr 07/13/20 07/14/20 22:40 08:25 Creatinine 1.05 Est Cr Clr Drug Dosing 34.1 Est GFR ( Amer) 59.3 Est GFR (Non-Af Amer) 51.2 Blood Type A Positive Antibody Screen NEGATIVE
[2020-07-14] MEDS ORDERED: oxyCODONE HCL IR 5 MG TAB (IMMEDIATE RELEASE) PO STA (22:37)
[2020-07-15] MEDS: HYDROmorphone INJ 0.5 MG/0.5 ML SYR IV PRN ×4 (00:44→14:14)
[2020-07-15] MEDS: SODIUM CHLORIDE 0.9% 1000ML 1,000 ML IV SCH (00:51)
[2020-07-15] MEDS: CEFEPIME 2,000 MG in SYRINGE 0 ML IV SCH ×2 (05:54→17:24)
[2020-07-15] MEDS: oxyCODONE HCL IR 5 MG TAB (IMMEDIATE RELEASE) PO PRN ×4 (06:39→23:36)
[2020-07-15 07:10] LABS: Creatinine Clr Calc Pharmacy 35.1 ml/min; Est GFR (African American) 61.4
[2020-07-15] MEDS: SUCRALFATE 1 GM TAB PO SCH ×4 (08:59→21:53)
[2020-07-15] MEDS: UMECLIDINIUM BROMIDE 62.5MCG/BLISTER 7 PUFFS/INHALER INH SCH ×2 (09:00→09:03)
[2020-07-15] MEDS: FERROUS GLUCONATE 324 MG TAB PO SCH ×2 (09:00→16:28)
[2020-07-15] MEDS: PREGABALIN 75 MG CAP PO SCH ×2 (09:01→21:53)
[2020-07-15] MEDS: MULTIVITAMIN TAB PO SCH (09:01)
[2020-07-15] MEDS: MoRPHine SULFATE CR 15 MG TABCR PO SCH ×2 (09:01→21:53)
[2020-07-15] MEDS: PANTOprazole 40 MG TAB PO SCH ×2 (09:01→21:53)
[2020-07-15] MEDS: allopurinoL 100 MG TAB PO SCH (09:02)
[2020-07-15] MEDS: DOCUSATE SODIUM 100 MG CAP PO SCH ×2 (09:02→21:53)
[2020-07-15] MEDS: ASPIRIN 81 MG ECTAB PO SCH (09:02)
[2020-07-15] MEDS: HYDROXYUREA 500 MG CAP PO SCH (09:04)
[2020-07-15] MEDS: ACETAMINOPHEN 325 MG TAB PO SCH (09:05)
[2020-07-15] MEDS: FLUTICASONE/VILANTEROL 100/25MCG 14 PUFFS/INHALER INH SCH (09:08)
[2020-07-15] MEDS ORDERED: ACETAMINOPHEN 500 MG TAB PO PRN (12:33)
[2020-07-15] MEDS ORDERED: IBUPROFEN 600 MG TAB PO PRN (12:35)
--- NOTE | 2020-07-15 12:55 | Hospitalist Progress Note ---
Date of Service July 15, 2020 Assessment & Plan (1) Sepsis: Sepsis Secondary to persistent infected left great toe ischemic ulcer -- history of PVD Failed outpatient treatment --Blood cultures 07/09: Negative --Sepsis resolved, now afebrile given daptomycin plus cefepime Aracelis WALKER service recommendation: recommend amputation of the toe --Status post amputation of the left great toe 07/14/2020 Continue IV daptomycin plus cefepime Follow-up cultures Aracelis WALKER recommends to transition to p.o. linezolid and Cipro upon discharge (please refer to infectious disease consultation note) -- Vascular surgery consulted: Positive biphasic Doppler signals to the foot, does not require vascular surgical intervention at this time Poor IV access -- received regular blood transfusion for MDS --Evaluated by vascular surgery s/p Placement of Atjmle-m-Toml on the left chest wall 07/13/[address] Pascal Discussed with ship surveyor Dr. Mainor Chavez, will need to follow-up with Dr. Mainor Chavez for maintenance of [id number]-j-[id number] Acute Renal Failure 2 to illness -- resolved with IV fluids COPD, past tobacco abuse -- Pulmonary status at baseline hx breast cancer, right, status post surgery, chemoradiation hx pulmonary embolism not on anticoagulation secondary to history GI bleed mood/anxiety disorder, at baseline Chronic pain on narcotics Malnutrition (low BMI) Nutrition consult DVT prophylaxis. Ambulate as tolerated, pharmacologic prophylaxis contraindicated with history of GI bleed, SCDs contraindicated with history PVD Full code Disposition Lives at home willl need PT/OT after Toe Amputation, may need to transition to rehab prior to returning home Labs Checked ROS-No Headache, No Visual Changes, No Nausea, No Vomiting, No Fever, No Chills, No Neck Pain or Stiffness, No Chest Pain, No Palpitations, No SOB, No LAINEZ, No Cough, No Sputum, No Wheezing, No Abdominal Pain, No Diarrhea, No Hematemesis, No Hemoptysis, No Unexpected Weight Loss, No Flank pain, No Melena, No Hematochezia, No Frequency, No Urgency, No Burning, No Hematuria, No Rashes, No Diaphoresis. Appetite is Normal, c/o severe pain at amputation site Physical Exam Gen-AAO x 3, NAD, Afebrile Head-NCAT, EOMI, PERRLA, Anicteric Sclera, No Posterior Pharyngeal Erythema Neck-Supple, No JVD, No Thyromegaly, No Masses, No LAD, No Bruits Lungs-Clear to Auscultation Bilaterally, No Rales, No Rhonchi, No Wheezing, No Crepitus Chest-No S4, +S1, +S2, No S3, No Murmurs, No Rubs, No Gallops, No Ectopy Abdomen-Soft, Bowel Sounds Present, Non Tender, Non Distended, No Hepatomegaly, No Splenomegaly, No Palpable Masses, No Rebound, No Rigidity, No Guarding Musculoskeletal-Full Range of Motion Bilaterally, No CVAT Extremities-No Cyanosis, No Clubbing, No Edema Nuero-Cranial Nerves II-XII grossly intact, Motor WNL, DTRs WNL, Strength WNL, Non Focal Psych-Normal Mood Admission and Anticipated Discharge Date Admission Date: July 09, 2020 Results & Data Results & Data ([facility]) Vital Signs (Past 12 Hours) Vital Signs Temp Pulse Pulse Resp BP Pulse Ox 07/15/20 11:15 36.7 C 81 16 114/66 90 07/15/20 07:52 36.6 C 77 14 118/79 90 07/15/20 03:07 36.6 C 73 18 127/71 91
[2020-07-15] MEDS: DAPTOmycin 300 MG in SYRINGE 0 ML IV SCH (16:26)
[2020-07-15] MEDS: SENNA 8.6 MG TAB PO SCH (21:54)
[2020-07-15] MEDS: TEMAZEPAM 15 MG CAPSULE PO PRN (21:56)
[2020-07-15] MEDS: traZODone HCL 50 MG TAB PO SCH (22:35)
[2020-07-16] MEDS: CEFEPIME 2,000 MG in SYRINGE 0 ML IV SCH (05:42)
[2020-07-16] MEDS: oxyCODONE HCL IR 5 MG TAB (IMMEDIATE RELEASE) PO PRN ×2 (05:55→16:09)
[2020-07-16 06:40] LABS: Hematocrit (blood only) 28.3 % (37-47); Hemoglobin 8.6 g/dL (12.0-16.0); Mean Corpuscular Hemoglobin 30.8 pg (25-34); Mean Corpuscular Hgb Conc 30.4 g/dL (32-36); Mean Corpuscular Volume 101.4 fL (80-100); Platelet Count 1007 K/uL (130-400); RDW Coefficient of Variation 21.8 % (11.5-14.5); RDW Standard Deviation 76.1 fL (36.4-46.3); Red Blood Count 2.79 M/uL (4.2-5.4); White Blood Count 15.22 K/uL (4.8-10.8)
[2020-07-16 07:01] LABS: Albumin Level 2.6 gm/dl (3.4-5.0); BUN Creatinine Ratio 22.8 (10-20); Calcium 8.6 mg/dl (8.5-10.1); Creatinine Clr Calc Pharmacy 40.7 ml/min; Est GFR (African American) 73.5; Est GFR (Non-African American) 63.4; Potassium 4.2 mmol/L (3.5-5.1)
[2020-07-16 07:04] LABS: Albumin Globulin Ratio 0.9 (0.9-2); Bilirubin,Total 0.5 mg/dl (0.2-1); Globulin 2.9 gm/dl (2.5-4.0); Total Protein 5.5 gm/dl (6.4-8.2)
--- NOTE | 2020-07-16 08:42 | Progress Notes ---
DATE: 07/16/2020 SUBJECTIVE: A 79-year-old white female postop day 2 from left great toe amputation for necrosis. She though seems to be doing okay, she is still complaining of quite a bit of foot pain for unclear reasons. OBJECTIVE: VITAL SIGNS: Temperature 36.8. Vital signs stable. EXTREMITIES: Physical examination of the left foot reveals the dressing to be clean, dry and intact. No significant drainage. ASSESSMENT: A 79-year-old female postoperative day 2 from a left great toe amputation, doing okay orthopedically. It is a little difficult to explain her pain. PLAN: 1. DVT prophylaxis including thigh-high TEDs, SCDs, and recommend aspirin. We will leave the definitive anticoagulation up to the medicine service. 2. PT/OT. She can weightbear on this foot, but should limit weightbearing as much as possible and elevate whenever possible. 3. Pain control. Not exactly sure why she is complaining of so much pain. She looks comfortable and really not a great reason to have a lot of foot pain other than that she does have some infarcts in her bones, which may be chronic. 4. Disposition: She is orthopedically okay for discharge any time. We are going to leave this dressing in place for the first 2-3 weeks. I need to see her back in 2-3 weeks out from her surgery date. She does not need further antibiotics from my standpoint for her foot as the necrotic toe is now gone. Any orthopedic questions can be directed to me at [phone].
--- NOTE | 2020-07-16 08:53 | Pain Management Consultation ---
Date of Consultation July 16, 2020 Assessment & Plan (1) Amputation of great toe: Laterality: left Qualified Code(s): S98.112A - Complete traumatic amputation of left great toe, initial encounter Present on Admission?: No (2) Sepsis: Present on Admission?: Yes (3) MDS (myelodysplastic syndrome): Present on Admission?: Yes (4) Status post total hip replacement, left: * Will increase Lyrica to 100 mg twice daily * Will transition MS Contin to OxyContin 15 mg every 12 hours * Maintain OxyIR 5-10 mg 4 times daily as needed for breakthrough pain * Patient may utilize IV hydromorphone for pain not well controlled with OxyIR * Will follow during hospitalization Thank you for allowing us to participate in the care of Mrs. Rand. Present on Admission?: Yes History of Present Illness Reason for Consultation: Intractable pain left foot status post left great toe amputation Requesting Physician: Hector Greer DO Attending Physician: Hector Greer DO History of Present Illness Mrs. Rand is a 79-year-old white female who was admitted with primary complaint of left great toe pain with embolic disease of the great toe and sepsis/gangrene with past medical history significant for myelodysplastic syndrome with chronic anemia, PE, CKD, COPD and history of breast cancer. Patient reported left foot/great toe pain over the past few months and was placed on MS Contin in May. She reported worsening of her pain which led to admission and amputation of her left great toe per Dr. Kahn on 07/14/2020. Patient has been experiencing intractable pain of the left great toe region and foot extending to the ankle which she describes as aching, throbbing and sharp/burning in characteristic. She is reporting moderate benefit from use of the IV hydromorphone and oxycodone for breakthrough pain. Patient has been on Lyrica 75 mg twice daily over the past roughly 6 months per her report, but upon review of PDMP Lyrica dates back to 2018 at least. She is uncertain as to the reason Lyrica was initiated. Patient also underwent insertion of Pxxuba-m-Iiwn during this admission on 07/13/2020. Patient reports minimal discomfort over the incisional site. She denies low back or lumbar radicular component to her pain complaints. She reports prior history of breast cancer and denies any known metastatic disease per her report. The patient denies constipation from her current opiate therapy and indicates she is moving her bowels regularly. The patient denies any other notable side effects opiate therapies. Pain Assessment Full Body Front + Back: 1. Left great toe/foot Pain scale - at its best (0-10): 6 Pain scale - at its worst (0-10): 9 Allergies Allergy/AdvReac Type Severity Reaction Status Date / Time latex Allergy Intermediate HIVES Verified 07/09/20 21:19 nickel Allergy Intermediate Hives/Itchi Verified 07/09/20 21:19 ness shellfish derived Allergy Intermediate Hives Verified 07/09/20 21:19 Iodinated Contrast Media AdvReac Mild Diarrhea Verified 07/09/20 21:19 [Iodinated Contrast- Oral and IV Dye] Lobster Allergy Severe HIVES Uncoded 07/09/20 21:19 Home Medications Home Medications Medication Instructions Recorded Confirmed Type pantoprazole [Protonix] 40 mg PO BID 06/06/18 07/09/20 History pregabalin [Lyrica] 75 mg PO BID 06/06/18 07/09/20 History temazepam [Restoril] 30 mg PO HS PRN 06/06/18 07/09/20 History Spiriva with HandiHaler 1 cap INHALATION QAM 12/17/19 07/09/20 History albuterol sulfate 2.5 mg INHALATION Q4H PRN 12/17/19 07/09/20 History albuterol sulfate [Ventolin HFA] 2 puff INHALATION QID PRN 12/17/19 07/09/20 History amitriptyline 75 mg PO HS 12/17/19 07/09/20 History fluticasone propion-salmeterol 1 inh INHALATION BID 12/17/19 07/09/20 History [Advair Diskus] loperamide 2 mg PO Q4H PRN 12/17/19 07/09/20 History olopatadine 1 drp OPB BID PRN 12/17/19 07/09/20 History trazodone 50 mg PO HS 12/17/19 07/09/20 History acetaminophen [Tylenol] 325 mg PO QID PRN 01/23/20 07/09/20 History bismuth subsalicylate 524 mg PO QID PRN 04/01/20 07/09/20 History [Pepto-Bismol] ondansetron HCl 8 mg PO Q12H PRN 04/01/20 07/09/20 History risedronate [Actonel] 35 mg PO WK 04/01/20 07/09/20 History rizatriptan [Maxalt] 10 mg PO .DAILY/UD PRN 04/01/20 07/09/20 History sucralfate [Carafate] 1 gm PO ACHS 04/01/20 07/09/20 History hydroxyurea 500 mg PO DAILY 04/22/20 07/09/20 History morphine 15 mg PO Q12H 05/28/20 07/09/20 History oxycodone 5 mg PO Q8H PRN 05/28/20 07/09/20 History anagrelide 1 mg PO BID #60 cap 05/29/20 07/09/20 Rx allopurinol 100 mg PO DAILY 06/15/20 07/09/20 History aspirin 81 mg PO DAILY 06/15/20 07/09/20 History tedizolid [Sivextro] 200 mg PO DAILY 07/02/20 07/09/20 History Pain History Pain Intensity Pain scale - at its best (0-10): 6 Pain scale - at its worst (0-10): 9 Patient History Medical History Abrasion of great toe, left, infected CKD (chronic kidney disease), stage III COPD (chronic obstructive pulmonary disease) Embolic disease of toe History of breast cancer chemo History of MRSA infection "left hip wound" History of peptic ulcer disease IBS (irritable bowel syndrome) Diarrhea predominant ; follows with GI Leukocytosis MDS/MPN (myelodysplastic/myeloproliferative neoplasms) Myelodysplastic syndrome Pelvic fracture 12/2018 pelvic fracture and monitor Poor intravenous access Pulmonary emboli 12/2019 just monitored Pulmonary nodules CT 01/23/20: 5 mm RML 3 mm RML 3 mm DEVEN 4 mm RUL S/P ORIF (open reduction internal fixation) fracture fracture hip x 5 and then had ORIF Subcapsular hemorrhage of spleen Thrombocytosis Surgical History H/O mastectomy modified radical masectomy H/O: hysterectomy History of cholecystectomy Hx of esophagogastroduodenoscopy Status post mastectomy "modified right mastectomy 1990" Status post total hip replacement, left had after ORIF hip Family History Mother Heart disease Social History Smoking Status: Current some day smoker Tobacco Type: Cigarettes packs per day: 1; Years Smoked: 50; Second Hand Exposure: No; Do You Dip or Chew Tobacco: No; Tobacco Cessation Education Requested by Patient: No Hx Alcohol Use: No Hx Substance Use: No Preferred Language: Greenlandic Communication Ability: Effective Kiln Pusher Required: No Beliefs That Will Affect Care: None marital status: / Current Living Situation: Family How many Children do You have: 2 Other Information That Helps Us Care for You: No Feels Safe at Home: Yes Safety Concerns: Feels Safe At This Time Assistive Devices: Denture - Upper, Denture - Lower, Glasses, Oxygen - at Night and Walker Physical Exam Physical Exam: General: Patient sitting quietly in exam room in no acute distress. Speech and thought process appropriate. Mood and affect appropriate. Cognition intact. Head: Normocephalic and atraumatic. ENT: No evidence of nasal or oral mucosal lesions. Mucous membranes are moist. Eyes: Pupils equal round reactive to light. Neck: Supple without adenopathy and full range of motion. Chest: Nontender to palpation of the costosternal junction. Well-healed surgical incision in the left upper anterior chest wall status post In fuse-a-Port placement. No evidence of skin breakdown. Incision is well approximated. Abdomen: Soft and nondistended. No organomegaly. Bowel sounds active. Back/spine: Loss of lumbar lordosis. Nontender over the midline to palpation or percussion. Lower extremities: Absent left great toe appreciated. Large dressing/bandage was not removed for visual inspection. Patient has 5/5 strength with dorsi and plantar flexion bilaterally. There is no evidence of edema distally. Neurologic: Cranial nerves grossly intact. Ambulatory function not witnessed.
[2020-07-16] MEDS: SUCRALFATE 1 GM TAB PO SCH ×4 (09:38→20:32)
[2020-07-16] MEDS: DOCUSATE SODIUM 100 MG CAP PO SCH ×2 (09:39→20:32)
[2020-07-16] MEDS: PANTOprazole 40 MG TAB PO SCH ×2 (09:40→20:33)
[2020-07-16] MEDS: FERROUS GLUCONATE 324 MG TAB PO SCH ×2 (09:40→16:55)
[2020-07-16] MEDS: ASPIRIN 81 MG ECTAB PO SCH (09:41)
[2020-07-16] MEDS: allopurinoL 100 MG TAB PO SCH (09:41)
[2020-07-16] MEDS: MULTIVITAMIN TAB PO SCH (09:41)
[2020-07-16] MEDS: HYDROXYUREA 500 MG CAP PO SCH (09:43)
[2020-07-16] MEDS: FLUTICASONE/VILANTEROL 100/25MCG 14 PUFFS/INHALER INH SCH (09:43)
[2020-07-16] MEDS: PREGABALIN 100 MG CAP PO SCH ×2 (09:55→20:31)
[2020-07-16] MEDS: oxyCODONE HCL 15 MG TABCR (OxyCONTIN) PO SCH ×2 (09:56→20:31)
--- NOTE | 2020-07-16 10:20 | Hospitalist Progress Note ---
Date of Service July 16, 2020 Assessment & Plan (1) Sepsis: Sepsis Secondary to persistent infected left great toe ischemic ulcer -- history of PVD Failed outpatient treatment --Blood cultures 07/09: Negative --Sepsis resolved, now afebrile given daptomycin plus cefepime Aracelis WALKER service recommendation: recommend amputation of the toe --Status post amputation of the left great toe 07/14/2020 DC Abx -- Vascular surgery consulted: Positive biphasic Doppler signals to the foot, does not require vascular surgical intervention at this time Poor IV access -- received regular blood transfusion for MDS --Evaluated by vascular surgery s/p Placement of Fvfbyp-i-Rwjr on the left chest wall 07/13/[address] Pascal f/u c Dr. Mainor Chavez for maintenance of [id number]-c-Cgqj Acute Renal Failure 2 to illness -- resolved with IV fluids COPD, past tobacco abuse -- Pulmonary status at baseline hx breast cancer, right, status post surgery, chemoradiation hx pulmonary embolism not on anticoagulation secondary to history GI bleed mood/anxiety disorder, at baseline Chronic pain on narcotics Malnutrition (low BMI) Nutrition consult DVT prophylaxis. Ambulate as tolerated, pharmacologic prophylaxis contraindicated with history of GI bleed, SCDs contraindicated with history PVD Full code Disposition Lives at home Rehab placement pending Labs Checked ROS-No Headache, No Visual Changes, No Nausea, No Vomiting, No Fever, No Chills, No Neck Pain or Stiffness, No Chest Pain, No Palpitations, No SOB, No LAINEZ, No Cough, No Sputum, No Wheezing, No Abdominal Pain, No Diarrhea, No Hematemesis, No Hemoptysis, No Unexpected Weight Loss, No Flank pain, No Melena, No Hematochezia, No Frequency, No Urgency, No Burning, No Hematuria, No Rashes, No Diaphoresis. Appetite is Normal, c/o pain at amputation site Physical Exam Gen-AAO x 3, NAD, Afebrile Head-NCAT, EOMI, PERRLA, Anicteric Sclera, No Posterior Pharyngeal Erythema Neck-Supple, No JVD, No Thyromegaly, No Masses, No LAD, No Bruits Lungs-Clear to Auscultation Bilaterally, No Rales, No Rhonchi, No Wheezing, No Crepitus Chest-No S4, +S1, +S2, No S3, No Murmurs, No Rubs, No Gallops, No Ectopy Abdomen-Soft, Bowel Sounds Present, Non Tender, Non Distended, No Hepatomegaly, No Splenomegaly, No Palpable Masses, No Rebound, No Rigidity, No Guarding Musculoskeletal-Full Range of Motion Bilaterally, No CVAT Extremities-No Cyanosis, No Clubbing, No Edema Nuero-Cranial Nerves II-XII grossly intact, Motor WNL, DTRs WNL, Strength WNL, Non Focal Psych-Normal Mood Admission and Anticipated Discharge Date Admission Date: July 09, 2020 Results & Data Results & Data ([facility]) Vital Signs (Past 12 Hours) Vital Signs Temp Pulse Resp BP Pulse Ox Pulse Ox 07/16/20 08:10 36.7 C 74 16 113/71 93 07/15/20 23:45 93 07/15/20 23:27 36.8 C 98 H 20 127/76 93 07/15/20 23:25 85 L
[2020-07-16] MEDS: HYDROmorphone INJ 0.5 MG/0.5 ML SYR IV PRN (10:32)
[2020-07-16] MEDS ORDERED: FLUCONAZOLE 100 MG TAB PO ONE (12:45)
[2020-07-16] MEDS: traZODone HCL 50 MG TAB PO SCH (20:31)
[2020-07-16] MEDS: SENNA 8.6 MG TAB PO SCH (20:32)
[2020-07-16] MEDS: TEMAZEPAM 15 MG CAPSULE PO PRN (22:04)
[2020-07-17] MEDS: oxyCODONE HCL IR 5 MG TAB (IMMEDIATE RELEASE) PO PRN ×2 (00:58→12:51)
[2020-07-17 06:48] LABS: Hematocrit (blood only) 27.5 % (37-47); Hemoglobin 8.2 g/dL (12.0-16.0); Mean Corpuscular Hgb Conc 29.8 g/dL (32-36); Mean Corpuscular Volume 100.7 fL (80-100); Mean Platelet Volume 11.9 fL (7.4-10.4); Nucleated RBC # (auto) 0.06 K/uL (0-0); Nucleated RBC % (auto) 0.4 %; Platelet Count 825 K/uL (130-400); RDW Coefficient of Variation 21.9 % (11.5-14.5); RDW Standard Deviation 75.5 fL (36.4-46.3); Red Blood Count 2.73 M/uL (4.2-5.4); White Blood Count 15.75 K/uL (4.8-10.8)
[2020-07-17 07:02] LABS: Acanthocytes 1+; Anisocytosis Present; Basophils # (auto) 0.42 K/uL (0-0.2); Basophils % (auto) 2.7 %; Eosinophils # (auto) 1.17 K/uL (0-0.5); Eosinophils % (auto) 7.4 %; Immature Granulocytes # (auto) 0.09 K/uL (0.00-0.02); Immature Granulocytes % (auto) 0.6 %; Lymphocytes % (auto) 21.6 %; Monocytes % (auto) 12.1 %; Neutrophils # (auto) 8.77 K/uL (1.4-6.5); Neutrophils % (auto) 55.6 %
[2020-07-17 07:20] LABS: Albumin Globulin Ratio 0.8 (0.9-2); Albumin Level 2.5 gm/dl (3.4-5.0); BUN Creatinine Ratio 18.8 (10-20); Bilirubin,Total 0.2 mg/dl (0.2-1); Calcium 8.5 mg/dl (8.5-10.1); Creatinine Clr Calc Pharmacy 36.5 ml/min; Est GFR (African American) 64.5; Est GFR (Non-African American) 55.6; Potassium 4.4 mmol/L (3.5-5.1); Total Protein 5.5 gm/dl (6.4-8.2)
--- NOTE | 2020-07-17 07:56 | Progress Notes ---
DATE: 07/17/2020 SUBJECTIVE: A 79-year-old white female postop day 3 from a left great toe amputation for ischemia. She seems to be doing okay. She is sleeping this morning and not easily arousable. OBJECTIVE: VITAL SIGNS: Temperature is 36.6. Vital signs stable. GENERAL: Shows an elderly female. She is lying in bed and sleeping soundly. EXTREMITIES: Examination of the left foot reveals the dressing to be clean, dry and intact. ASSESSMENT: A 79-year-old white female postop day 3 from left great toe amputation, doing reasonably well. Her pain is clearly controlled. PLAN: At this point, orthopedically, she is okay for discharge any time. Just need to leave that dressing to be clean, dry and in place. I need to see her back in 2-3 weeks from her surgery date. She does not need further antibiotics from the orthopedic standpoint. Any orthopedic questions can be directed to me at [phone].
--- NOTE | 2020-07-17 08:28 | Pain Management Progress Note ---
Date of Service July 17, 2020 Assessment & Plan (1) Amputation of great toe: Continue current medication regimen of Lyrica 100mg BID, OxyContin 15mg BID, Oxycodone 5-10mg x 4 hours PRN, and minimal use of IV Dilaudid. Call with any questions or concerns. Thank you for the consult. Laterality: left Qualified Code(s): S98.112A - Complete traumatic amputation of left great toe, initial encounter Admission and Anticipated Discharge Date Admission Date: July 09, 2020 Subjective Mrs. Rand is a 79 year old female that required amputation of the left great toe due to embolic disease and gangrene. She is reporting adequate pain relief with the increased Lyrica to 100mg BID, transition from MS Contin to OxyContin, and continue breakthrough PO Oxycodone 10mg x 4 hours PRN. She has been able to sleep comfortably throughout the night. No complaints. Able to move bowels. No confusion. Case discussed with Dr. Arlet Jasso Physical Exam Physical Exam: GENERAL: This is a 79 year old female that is resting comfortably in the hospital bed. HEAD/FACE: Normocephalic and atraumatic. EYES: No drainage or conjunctival injection. CHEST/AXILLA: Chest movement symmetrical. No deformities noted. SKIN: Left great toe not observed due to dressings. NEURO: Alert and appears oriented. Speech is fluent. Cranial Nerves are grossly intact. PSYCH: Alert, pleasant, affect is calm
[2020-07-17] MEDS: FERROUS GLUCONATE 324 MG TAB PO SCH ×2 (09:03→16:24)
[2020-07-17] MEDS: FLUTICASONE/VILANTEROL 100/25MCG 14 PUFFS/INHALER INH SCH (09:03)
[2020-07-17] MEDS: DOCUSATE SODIUM 100 MG CAP PO SCH ×2 (09:03→21:44)
[2020-07-17] MEDS: ASPIRIN 81 MG ECTAB PO SCH (09:03)
[2020-07-17] MEDS: HYDROXYUREA 500 MG CAP PO SCH (09:03)
[2020-07-17] MEDS: SUCRALFATE 1 GM TAB PO SCH ×4 (09:03→21:45)
[2020-07-17] MEDS: MULTIVITAMIN TAB PO SCH (09:04)
[2020-07-17] MEDS: allopurinoL 100 MG TAB PO SCH (09:04)
[2020-07-17] MEDS: PANTOprazole 40 MG TAB PO SCH ×2 (09:04→21:49)
[2020-07-17] MEDS: PREGABALIN 100 MG CAP PO SCH (09:04)
[2020-07-17] MEDS: oxyCODONE HCL 15 MG TABCR (OxyCONTIN) PO SCH (09:04)
[2020-07-17] MEDS: UMECLIDINIUM BROMIDE 62.5MCG/BLISTER 7 PUFFS/INHALER INH SCH (09:04)
--- NOTE | 2020-07-17 11:16 | Hospitalist Progress Note ---
Date of Service July 17, 2020 Assessment & Plan (1) Sepsis: Sepsis Secondary to persistent infected left great toe ischemic ulcer -- history of PVD Failed outpatient treatment --Blood cultures 07/09: Negative --Sepsis resolved, now afebrile given daptomycin plus cefepime Aracelis WALKER service recommendation: recommend amputation of the toe --Status post amputation of the left great toe 07/14/2020 off Abx -- Vascular surgery consulted: Positive biphasic Doppler signals to the foot, does not require vascular surgical intervention at this time Poor IV access -- received regular blood transfusion for MDS --Evaluated by vascular surgery s/p Placement of [id number]-[id number] on the left chest wall 07/13/[address] Pascal f/u c Dr. Mainor Chavez for maintenance of [id number]-[id number] Acute Renal Failure 2 to illness -- resolved with IV fluids COPD, past tobacco abuse -- Pulmonary status at baseline hx breast cancer, right, status post surgery, chemoradiation hx pulmonary embolism not on anticoagulation secondary to history GI bleed mood/anxiety disorder, at baseline Chronic pain on narcotics Malnutrition (low BMI) Nutrition consult DVT prophylaxis. Ambulate as tolerated, pharmacologic prophylaxis contraindicated with history of GI bleed, SCDs contraindicated with history PVD Full code Disposition Lives at home Rehab placement pending Labs Checked ROS-No Headache, No Visual Changes, No Nausea, No Vomiting, No Fever, No Chills, No Neck Pain or Stiffness, No Chest Pain, No Palpitations, No SOB, No LAINEZ, No Cough, No Sputum, No Wheezing, No Abdominal Pain, No Diarrhea, No Hematemesis, No Hemoptysis, No Unexpected Weight Loss, No Flank pain, No Melena, No Hematochezia, No Frequency, No Urgency, No Burning, No Hematuria, No Rashes, No Diaphoresis. Appetite is Normal, c/o pain Physical Exam Gen-AAO x 3, NAD, Afebrile Head-NCAT, EOMI, PERRLA, Anicteric Sclera, No Posterior Pharyngeal Erythema Neck-Supple, No JVD, No Thyromegaly, No Masses, No LAD, No Bruits Lungs-Clear to Auscultation Bilaterally, No Rales, No Rhonchi, No Wheezing, No Crepitus Chest-No S4, +S1, +S2, No S3, No Murmurs, No Rubs, No Gallops, No Ectopy Abdomen-Soft, Bowel Sounds Present, Non Tender, Non Distended, No Hepatomegaly, No Splenomegaly, No Palpable Masses, No Rebound, No Rigidity, No Guarding Musculoskeletal-Full Range of Motion Bilaterally, No CVAT Extremities-No Cyanosis, No Clubbing, No Edema Nuero-Cranial Nerves II-XII grossly intact, Motor WNL, DTRs WNL, Strength WNL, Non Focal Psych-Normal Mood Admission and Anticipated Discharge Date Admission Date: July 09, 2020 Results & Data Results & Data ([facility]) Vital Signs (Past 12 Hours) Vital Signs Temp Pulse Resp BP Pulse Ox Pulse Ox 07/17/20 07:15 36.4 C L 74 16 124/73 94 07/17/20 00:20 90 07/16/20 23:35 36.6 C 89 16 101/70 90
[2020-07-17] MEDS: oxyCODONE HCL 10 MG TABCR (OxyCONTIN) PO SCH (20:13)
[2020-07-17] MEDS: SENNA 8.6 MG TAB PO SCH (21:44)
[2020-07-17] MEDS: traZODone HCL 50 MG TAB PO SCH (21:49)
[2020-07-17] MEDS: TEMAZEPAM 15 MG CAPSULE PO PRN (21:52)
[2020-07-17] MEDS: PREGABALIN 75 MG CAP PO SCH (21:52)
[2020-07-18] MEDS: oxyCODONE HCL IR 5 MG TAB (IMMEDIATE RELEASE) PO PRN (06:43)
[2020-07-18] MEDS: SUCRALFATE 1 GM TAB PO SCH ×2 (07:44→10:26)
[2020-07-18] MEDS: FERROUS GLUCONATE 324 MG TAB PO SCH (07:45)
[2020-07-18] MEDS: ASPIRIN 81 MG ECTAB PO SCH (07:46)
[2020-07-18] MEDS: MULTIVITAMIN TAB PO SCH (07:47)
[2020-07-18] MEDS: HYDROXYUREA 500 MG CAP PO SCH (07:48)
[2020-07-18] MEDS: allopurinoL 100 MG TAB PO SCH (07:48)
[2020-07-18] MEDS: DOCUSATE SODIUM 100 MG CAP PO SCH (07:48)
[2020-07-18] MEDS: PANTOprazole 40 MG TAB PO SCH (07:49)
[2020-07-18] MEDS: FLUTICASONE/VILANTEROL 100/25MCG 14 PUFFS/INHALER INH SCH (07:49)
[2020-07-18] MEDS: UMECLIDINIUM BROMIDE 62.5MCG/BLISTER 7 PUFFS/INHALER INH SCH (07:50)
--- NOTE | 2020-07-18 08:06 | Discharge Summary ---
Date of Service July 18, 2020 Admission HPI Per Admitting Provider History obtained from patient, and records. Medical history is significant for COPD, past tobacco abuse, hx PVD, hx R breast cancer status post surgery, chemoradiation, thrombocythemia on Hydrea therapy, myelodysplastic syndrome, history pulmonary embolism not on anticoagulation 2 to bleeding risk, chronic anemia (baseline hemoglobin of 7-8), chronic pain on narcotics, mood/anxiety disorder. Patient has had monthly admissions since December,. Recent confinement last month for cellulitis of the left great toe with DEISY. MRI of the foot did not show osteomyelitis. [facility] [place] [place] Orthopedics recommended irrigation debridement versus toe amputation. Patient refused toe amputation. Outpatient follow-up recommended after 1 week. Aortoiliac ultrasound requested by Vascular surgery showed extensive aortoiliac atherosclerotic plaque. 2 areas of elevated velocities within the left common iliac or external iliac arteries which suggest hemodynamically significant stenosis. Ischemic ulcer on the left great toe attributed to embolization from aorta or iliacs. No intervention during confinement unless left great toe wound worsens as per documentation. Iliac stenosis treatment might improve wound healing of the toe as per vascular surgeon note. Wound cultures grew coagulase-negative staph, methicillin-resistant. Patient discharged on 2-week course of Tidezolid as per [facility] ID recommendation. ID recommended spending time to explain to patient nature of disease and possibility of amputation due to perceived lack of patient insight during video encounter as per documentation. Patient seen by [facility] Orthopedics on outpatient follow-up 2 weeks ago. Outpatient vascular surgery follow-up recommended. Toe amputation recommended depending on patient progress and vascular surgery input as per documentation. Persistent left great toe pain since discharge from the hospital as per patient. Swelling the same however. Patient felt worse after after last dose of antibiotics yesterday. Patient denies chest pain, S OB, fever, chills, cough, abdominal pain, dysuria, diarrhea. Appetite not too good. As per patient, she was told by vascular surgeon's office to go to the hospital for further evaluation. Difficult phlebotomy and IV access at the ER. IV access placed by ER provider through left external jugular vein. IV vancomycin given at the ER. Medical history as above Surgical History : Cholecystectomy, mastectomy right, hysterectomy, hip surgery Family History : Hypertension Personal/social history past tobacco abuse, no EtOH intake, patient lives in a senior housing unit by herself with caregivers Admission Exam Per Admitting Provider GENERAL: Comfortable, chronically ill, underweight, no respiratory distress SKIN: Pallor , warm HEENT: Pale palpebral conjunctivae, no ptosis, dry buccal mucosa NECK : Supple, no tenderness, left EJ IV access CHEST : Breast implant mound right, decreased breath sounds, no tenderness HEART : RRR, no obvious murmurs ABDOMEN: No distention noted, nontender EXTREMITIES : Minimal LE swelling, necrotic wound over tender left great toe swelling without drainage. NEUROLOGIC : Coherent, no facial asymmetry, no other gross focality Principal Diagnosis Sepsis: Infected left great toe ischemic ulcer PVD Acute Renal Failure COPD hx breast cancer hx pulmonary embolism mood/anxiety disorder, at baseline Chronic pain Discharge Exam see below Discharge Data Allergies Allergy/AdvReac Type Severity Reaction Status Date / Time latex Allergy Intermediate HIVES Verified 07/09/20 21:19 nickel Allergy Intermediate Hives/Itchi Verified 07/09/20 21:19 ness shellfish derived Allergy Intermediate Hives Verified 07/09/20 21:19 Iodinated Contrast Media AdvReac Mild Diarrhea Verified 07/09/20 21:19 [Iodinated Contrast- Oral and IV Dye] Lobster Allergy Severe HIVES Uncoded 07/09/20 21:19 Consultations 07/09/20 21:11 ED Decision to Admit Stat 07/10/20 00:10 Consult Case Management - Discharge Planning Routine Consult Orthopedic Surgery Routine Consult Vascular Surgery Routine 07/10/20 20:20 Consult Infectious Diseases Routine 07/14/20 14:20 Consult Case Management - Discharge Planning Routine 07/15/20 12:25 Consult Pain Management Routine Current Diagnoses Sepsis, unspecified organism (07/09/20) Myelodysplastic syndrome, unspecified (07/09/20) Embolism and thrombosis of arteries of the lower extremities (07/09/20) Non-pressure chronic ulcer of skin of other sites with unspecified severity (1 09/08/19) Complete traumatic amputation of left great toe, initial encounter (07/09/20) Encounter for other preprocedural examination (07/09/20) Other specified health status (07/09/20) Presence of left artificial hip joint (07/09/20) Allergies latex Allergy (Intermediate, Verified 07/09/20 21:19) HIVES nickel Allergy (Intermediate, Verified 07/09/20 21:19) Hives/Itchiness shellfish derived Allergy (Intermediate, Verified 07/09/20 21:19) Hives Iodinated Contrast Media [Iodinated Contrast- Oral and IV Dye] Adverse Reaction (Mild, Verified 07/09/20 21:19) Diarrhea Lobster Allergy (Severe, Uncoded 07/09/20 21:19) HIVES Height/Weight/Isolation Height 5 ft 4 in Weight 48.1 kg Isolation Type Removed Precautions Chemistry 07/17/20 05:33 Sodium 140 Potassium 4.4 Chloride 113 H Carbon Dioxide 24 Anion Gap 3.0 BUN 18 Creatinine 0.98 Glucose 92 Procedures Performed Operation Date: 07/13/20 10:00 Actual Procedures p Insertion of Infusaport, Left Internal Jugular Approach, Ultrasound Localization of Right Internal Jugular Vein, Fluoroscpy for Positioning; Moderate Sedation From 1042 to 1112.(Left) - Jean Paul Pascal MD Operation Date: 07/14/20 12:30 Actual Procedures p Left Great Toe Amputation(Left) - Russ Kahn MD Ordered Studies 07/13/20 09:05 EV cvc insrt tnnl with prt/tagman Routine Hospital Course (1) Sepsis: Sepsis Secondary to persistent infected left great toe ischemic ulcer -- history of PVD Failed outpatient treatment --Blood cultures 07/09: Negative --Sepsis resolved, now afebrile given daptomycin plus cefepime [facility] ID service recommendation: recommend amputation of the toe --Status post amputation of the left great toe 07/14/2020 off Abx -- Vascular surgery consulted: Positive biphasic Doppler signals to the foot, does not require vascular surgical intervention at this time Poor IV access -- received regular blood transfusion for MDS --Evaluated by vascular surgery s/p Placement of [id number]-[id number] on the left chest wall 07/13/[address] Pascal f/u c Dr. Mainor Chavez for maintenance of Pymqhz-h-Krgx Acute Renal Failure 2 to illness -- resolved with IV fluids COPD, past tobacco abuse -- Pulmonary status at baseline hx breast cancer, right, status post surgery, chemoradiation hx pulmonary embolism not on anticoagulation secondary to history GI bleed mood/anxiety disorder, at baseline Chronic pain on narcotics Malnutrition (low BMI) Nutrition consult DVT prophylaxis. Ambulate as tolerated, pharmacologic prophylaxis contraindicated with history of GI bleed, SCDs contraindicated with history PVD Full code Disposition Lives at home Rehab placement pending Labs Checked ROS-No Headache, No Visual Changes, No Nausea, No Vomiting, No Fever, No Chills, No Neck Pain or Stiffness, No Chest Pain, No Palpitations, No SOB, No LAINEZ, No Cough, No Sputum, No Wheezing, No Abdominal Pain, No Diarrhea, No Hematemesis, No Hemoptysis, No Unexpected Weight Loss, No Flank pain, No Melena, No Hematochezia, No Frequency, No Urgency, No Burning, No Hematuria, No Rashes, No Diaphoresis. Appetite is Normal, c/o pain Physical Exam Gen-AAO x 3, NAD, Afebrile Head-NCAT, EOMI, PERRLA, Anicteric Sclera, No Posterior Pharyngeal Erythema Neck-Supple, No JVD, No Thyromegaly, No Masses, No LAD, No Bruits Lungs-Clear to Auscultation Bilaterally, No Rales, No Rhonchi, No Wheezing, No Crepitus Chest-No S4, +S1, +S2, No S3, No Murmurs, No Rubs, No Gallops, No Ectopy Abdomen-Soft, Bowel Sounds Present, Non Tender, Non Distended, No Hepatomegaly, No Splenomegaly, No Palpable Masses, No Rebound, No Rigidity, No Guarding Musculoskeletal-Full Range of Motion Bilaterally, No CVAT Extremities-No Cyanosis, No Clubbing, No Edema Nuero-Cranial Nerves II-XII grossly intact, Motor WNL, DTRs WNL, Strength WNL, Non Focal Psych-Normal Mood Total Time Total Time Spent Total Time Spent (In Minutes): 45 mins Total Time Includes: Examination of the Patient, Discharge Planning, Medication Reconciliation and Communication With Other Providers Discharge Plan Discharge Items Patient Disposition: Transfer Inpatient Rehab Fac Reason For Visit: SEPSIS, ARF Discharge Diagnosis: Left Great Toe amputation Sepsis: Infected left great toe ischemic ulcer PVD Acute Renal Failure COPD hx breast cancer hx pulmonary embolism mood/anxiety disorder, at baseline Chronic pain Condition on Discharge: Good Activity: Per Instructions section Activity Comment: May weightbear as tolerated in post-op shoe. Lifting: None Bathing: Keep incision dry Exercise/Sports: None Driving/Machine Use: No limitations Weightbearing: Full weightbearing Weightbearing Comment: as directed Non-emergency contact: Primary Care Provider and Surgeon Call non-emergency contact if: you have any medication questions Follow-up/Referrals: Russ Kahn MD [Physician] - (Orthopedic follow-up 2-3 weeks from surgery date.) Valerie Chavez MD [Primary Care Provider] - Diet: Heart Healthy Addtl Attending Provider Instructions: Keep foot dressing/bandage clean, dry, and in place until orthopedic follow-up appointment May weightbear as tolerated, but limit walking as much as possible for first 2 weeks Elevate left foot as much as possible. Pending Studies at Discharge: No Stand-Alone Forms: My [facility] Skilled Items Patient informed of condition?: Yes DNR: No Discharge Level of Care: Skilled Communicable Disease: No Discharge Prognosis: Improving Lines: None Urinary Catheter: No Medications and DC Order Prescriptions: New multivitamin [Daily-Ted] Tablet 1 tab PO QAM Qty: 30 RF: 0 bisacodyl 10 mg Suppository 10 mg NE DAILY PRN (Reason: constipation) Qty: 30 RF: 0 docusate sodium 100 mg Capsule 100 mg PO BID Qty: 30 RF: 0 oxycodone 5 mg Tablet 5 - 10 mg PO QID PRN (Reason: pain) Qty: 30 RF: 0 ferrous gluconate 324 mg (38 mg iron) Tablet 324 mg PO BIDM Qty: 30 RF: 0 oxycodone [OxyContin] 10 mg Tablet,Oral Only,Ext.Rel.12 Hr 10 mg PO Q12H Qty: 30 RF: 0 temazepam 15 mg Capsule 30 mg PO HS PRN (Reason: sleep) Qty: 10 RF: 0 Continued ondansetron HCl 8 mg Tablet 8 mg PO Q12H PRN (Reason: Nausea) RF: 0 rizatriptan [Maxalt] 10 mg Tablet 10 mg PO .DAILY/UD PRN (Reason: Headache) RF: 0 bismuth subsalicylate [Pepto-Bismol] 262 mg/15 mL Suspension 524 mg PO QID PRN (Reason: GI-UPSET) RF: 0 risedronate [Actonel] 35 mg tablet 35 mg PO WK RF: 0 sucralfate [Carafate] 1 gram tablet 1 gm PO ACHS RF: 0 anagrelide 1 mg capsule 1 mg PO BID Qty: 60 RF: 0 allopurinol 100 mg Tablet 100 mg PO DAILY RF: 0 aspirin 81 mg Tablet,Delayed Release (Dr/Ec) 81 mg PO DAILY RF: 0 temazepam [Restoril] 30 mg Capsule 30 mg PO HS PRN (Reason: Sleep) RF: 0 pantoprazole [Protonix] 40 mg Tablet,Delayed Release (Dr/Ec) 40 mg PO BID RF: 0 pregabalin [Lyrica] 75 mg Capsule 75 mg PO BID RF: 0 albuterol sulfate 2.5 mg /3 mL (0.083 %) solution for nebulization 2.5 mg inhalation Q4H PRN (Reason: Wheezing) RF: 0 amitriptyline 75 mg tablet 75 mg PO HS RF: 0 olopatadine 0.1 % drops 1 drp OPB BID PRN (Reason: ITCHY EYES) RF: 0 fluticasone propion-salmeterol [Advair Diskus] 500-50 mcg/dose blister with device 1 inh INHALATION BID RF: 0 albuterol sulfate [Ventolin HFA] 90 mcg/actuation HFA aerosol inhaler 2 puff INHALATION QID PRN (Reason: Shortness Of Breath Or Wheezing) RF: 0 Spiriva with HandiHaler 18 mcg capsule, w/inhalation device 1 cap INHALATION QAM RF: 0 loperamide 2 mg capsule 2 mg PO Q4H PRN (Reason: Diarrhea) RF: 0 trazodone 50 mg tablet 50 mg PO HS RF: 0 acetaminophen [Tylenol] 325 mg Tablet 325 mg PO QID PRN (Reason: Pain) RF: 0 hydroxyurea 500 mg capsule 500 mg PO DAILY RF: 0 Sivextro 200 mg tablet 200 mg PO DAILY RF: 0 Discontinued morphine 15 mg tablet extended release 15 mg PO Q12H RF: 0 oxycodone 5 mg tablet 5 mg PO Q8H PRN (Reason: Breakthrough Pain) RF: 0 Discharge Orders: Discharge Order (Routine); Ordered 07/18/20 Ordered By: Hector Greer Admission Data Admit Date/Time: 07/09/20 23:36 Attending Provider: Hector Greer Admit Provider: Mendel Anand Primary Care Provider: Valerie Chavez Other Providers: [facility] ; Mendel Anand ; Russ Kahn ; Jean Paul Pascal ; Felix Robertson ; Abhijit Muñiz ; Sanjay Kahn I. ; Savage Maldonado II ; Lluvia Peralta ; Bandar Peraza ; [facility] ; Arlet Jasso L
[2020-07-18] MEDS: PREGABALIN 75 MG CAP PO SCH (09:23)
[2020-07-18] MEDS: oxyCODONE HCL 10 MG TABCR (OxyCONTIN) PO SCH (09:23)
--- NOTE | 2020-08-02 13:57 | Coding Query ---
MALNUTRITION To promote full compliance with coding requirements relating to patient care, physician participation is requested in all cases of waterproof coating machine tender uncertainty. Please assist us with the question(s) below: Please place an X within the parenthesis (x). If other, please document: "Malnutrition" is documented in this record begging on the H&P with, " Malnutrition (low BMI)". The Infectious Disease Consultation documents history of severe protein calorie malnutrition and the Progress Note on 07/14/20 has an addendum that documents, "Moderate to severe protein-calorie malnutrition - Soapstoner consult". If possible, please check the box that provides a more specific diagnosis: ( ) Mild malnutrition (x ) Moderate malnutrition ( ) Severe malnutrition ( ) Protein malnutrition (kwashiorkor) ( ) Severe protein calorie malnutrition ( ) Protein calorie malnutrition, unspecified ( ) Other (please specify): Thank you Annabel DAY
== END 2020-07-18 14:32 | disposition home health service (06) | DRG 854 ==
LOC: 2N 17:55 → ED 17:55 → 2W 23:36 → SUATTDRO 23:36 → 2W 07-10 01:26 → 3E 07-13 21:49

== ENCOUNTER 2020-09-27 18:00 | Inpatient (IN) ==
--- NOTE | 2020-09-27 18:36 | Emergency Department Note ---
History of Present Illness General Chief complaint: Illness Stated complaint: SOB Time Seen by Provider: 09/27/20 18:22 Source: patient Mode of arrival: EMS History of Present Illness Provider complaint: Body aches Onset (ago): week(s) Location: chest, back, upper extremity, lower extremity, left and right Severity: moderate Pain Consistency: + constant Maximum Pain Intensity: 0 Quality: + aching Relieved By: + none Associated symptoms: + cough, + malaise, + shortness of breath and + weakness; no chest pain, no fever/chills and no nausea/vomiting This is a 80-year-old female who presents with flulike symptoms for the past week. She complains of diffuse generalized body aches. She also has a product wyatt cough with yellow sputum and some mild shortness of breath. She denies any associated chest pain, fever, chills, vomiting, abdominal pain or urinary symptoms. She does have some mild diarrhea. She did have a Covid test performed 3 days ago and reported as negative. She denies any loss of taste or smell. She states that she has been drinking but unable to eat very much although she is not vomiting. She feels extremely weak. Home Medications Medication Instructions Recorded Confirmed Type pantoprazole [Protonix] 40 mg PO BID 06/06/18 09/27/20 History pregabalin [Lyrica] 75 mg PO BID 06/06/18 09/27/20 History temazepam [Restoril] 30 mg PO HS PRN 06/06/18 09/27/20 History Spiriva with HandiHaler 1 cap INHALATION QAM 12/17/19 09/27/20 History albuterol sulfate 2.5 mg INHALATION Q4H PRN 12/17/19 09/27/20 History albuterol sulfate [Ventolin HFA] 2 puff INHALATION QID PRN 12/17/19 09/27/20 History fluticasone propion-salmeterol 1 inh INHALATION BID 12/17/19 09/27/20 History [Advair Diskus] loperamide 2 mg PO Q4H PRN 12/17/19 09/27/20 History olopatadine 1 drp OPB BID PRN 12/17/19 09/27/20 History trazodone 50 mg PO HS 12/17/19 09/27/20 History acetaminophen [Tylenol] 325 mg PO QID PRN 01/23/20 09/27/20 History bismuth subsalicylate 524 mg PO QID PRN 04/01/20 09/27/20 History [Pepto-Bismol] ondansetron HCl 8 mg PO Q12H PRN 04/01/20 09/27/20 History risedronate [Actonel] 35 mg PO WK 04/01/20 09/27/20 History rizatriptan [Maxalt] 10 mg PO .DAILY/UD PRN 04/01/20 09/27/20 History sucralfate [Carafate] 1 gm PO ACHS 04/01/20 09/27/20 History hydroxyurea 500 mg PO DAILY 04/22/20 09/27/20 History anagrelide 1 mg PO BID #60 cap 05/29/20 09/27/20 Rx allopurinol 100 mg PO DAILY 06/15/20 09/27/20 History aspirin 81 mg PO DAILY 06/15/20 09/27/20 History Sivextro 200 mg PO DAILY 07/02/20 09/27/20 History bisacodyl 10 mg MS DAILY PRN #30 ea 07/18/20 09/27/20 Rx docusate sodium 100 mg PO BID #30 cap 07/18/20 09/27/20 Rx ferrous gluconate 324 mg PO BIDM #30 tab 07/18/20 09/27/20 Rx multivitamin [Daily-Ted] 1 tab PO QAM #30 tab 07/18/20 09/27/20 Rx oxycodone 5 mg PO QID PRN #30 cap 07/18/20 09/27/20 Rx oxycodone [OxyContin] 10 mg PO BID #20 tab 07/18/20 09/27/20 Rx levofloxacin 500 mg PO DIRECTED 09/27/20 09/27/20 History prednisone 20 mg PO DIRECTED 09/27/20 09/27/20 History Allergies Allergy/AdvReac Type Severity Reaction Status Date / Time latex Allergy Intermediate HIVES Verified 08/27/20 20:02 nickel Allergy Intermediate Hives/Itchi Verified 08/27/20 20:02 ness shellfish derived Allergy Intermediate Hives Verified 08/27/20 20:02 Iodinated Contrast Media AdvReac Mild Diarrhea Verified 08/27/20 20:02 [Iodinated Contrast- Oral and IV Dye] Lobster Allergy Severe HIVES Uncoded 08/27/20 20:02 Past Med/Surg History Medical History Abrasion of great toe, left, infected Amputation of great toe CKD (chronic kidney disease), stage III COPD (chronic obstructive pulmonary disease) Embolic disease of toe History of breast cancer chemo History of MRSA infection "left hip wound" History of peptic ulcer disease IBS (irritable bowel syndrome) Diarrhea predominant ; follows with GI Leukocytosis MDS/MPN (myelodysplastic/myeloproliferative neoplasms) Myelodysplastic syndrome Pelvic fracture 12/2018 pelvic fracture and monitor Poor intravenous access Pulmonary emboli 12/2019 just monitored Pulmonary nodules CT 01/23/20: 5 mm RML 3 mm RML 3 mm DEVEN 4 mm RUL S/P ORIF (open reduction internal fixation) fracture fracture hip x 5 and then had ORIF Subcapsular hemorrhage of spleen Thrombocytosis Surgical History H/O mastectomy modified radical masectomy H/O: hysterectomy History of cholecystectomy Hx of esophagogastroduodenoscopy Status post mastectomy "modified right mastectomy 1990" Status post total hip replacement, left had after ORIF hip Family History Mother Heart disease Social History Smoking Status: Former smoker Tobacco Type: Cigarettes packs per day: 1; Years Smoked: 50; Second Hand Exposure: No; Hx Alcohol Use: No Hx Substance Use: No Preferred Language: [place] Communication Ability: Effective 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 and A total of 10 systems reviewed and were otherwise negative Physical Exam Vital Signs Vital Signs - 24 hr 09/27/20 18:09 09/27/20 18:12 09/27/20 18:16 Temperature 36.5 C Temperature Source Oral Pulse Rate 105 H 106 H 107 H Pulse Rate [Apical] Pulse Rate from SpO2 Sensor 105 H 106 H Pulse Rhythm Regular Pulse Strength Normal Respiratory Rate 12 15 20 Respiratory Effort / Characteristics Non-Labored Respiratory Depth Normal Respiratory Pattern Regular Blood Pressure 118/70 118/70 Blood Pressure [Left Arm] Blood Pressure Mean 86 86 Blood Pressure Mean [Left Arm] Blood Pressure Position Lying Pulse Oximetry 97 98 93 Oxygen Delivery Method Nasal Cannula Oxygen Flow Rate 2 Sepsis Recent Fever Within 48 Hours No Sepsis New/Unexplained Change in Mental Status N/A Sepsis Action Taken by Nursing No Action Required 09/27/20 18:30 09/27/20 18:33 09/27/20 19:27 Temperature Temperature Source Pulse Rate 104 H Pulse Rate [Apical] 99 H Pulse Rate from SpO2 Sensor Pulse Rhythm Pulse Strength Respiratory Rate 16 16 Respiratory Effort / Characteristics Respiratory Depth Respiratory Pattern Blood Pressure 119/71 Blood Pressure [Left Arm] 115/71 Blood Pressure Mean 87 Blood Pressure Mean [Left Arm] 85 Blood Pressure Position Pulse Oximetry 93 95 Oxygen Delivery Method Nasal Cannula Room Air Oxygen Flow Rate 2 Sepsis Recent Fever Within 48 Hours Sepsis New/Unexplained Change in Mental Status Sepsis Action Taken by Nursing Constitutional: Vital signs reviewed. Cachectic. Eyes: Pupils are equal round reactive to light. Conjunctiva are noninjected. ENT: Pharynx is clear without erythema or exudate. Mucous membranes are dry. Neck supple without meningeal signs. Respiratory: Breath sounds are equal bilaterally. No wheezing. Fine crackles at the base but otherwise clear to auscultation. Cardiovascular: Mild tachycardia. Regular rhythm. GI: Soft, nondistended and nontender. Bowel sounds are present. Musculoskeletal: No peripheral edema. No lower extremity tenderness. Integumentary: No cyanosis. or jaundice. Neurological: The patient is awake and alert. No focal deficits. Psychiatric: Normal affect. Course Administered Medications Sodium Chloride (Nss) 500 mls @ 125 mls/hr IV .Q4H SHORTY Stop: 10/27/20 18:29 Last Admin: 09/27/20 19:37 Dose: 125 mls/hr Documented by: [id number] Discontinued Medications Dextrose (Dextrose 50% 50 Ml Syringe) 50 ml IV NOW STA Stop: 09/27/20 19:39 Last Admin: 09/27/20 19:50 Dose: 50 ml Documented by: [id number] Calcium Gluconate () 1,000 mg in 60 mls @ 240 mls/hr IV NOW STA Stop: 09/27/20 19:52 Last Infusion: 09/27/20 20:11 Dose: 0 mls/hr Documented by: [id number] Admin: 09/27/20 19:50 Dose: 240 mls/hr Documented by: [id number] Insulin Human Regular (Novolin-R Insulin Per Unit Charge) 10 units IV NOW STA Stop: 09/27/20 19:39 Last Admin: 09/27/20 19:50 Dose: 10 units Documented by: [id number] Cosigned by: [id number] Morphine Sulfate (Morphine Sulfate 2 Mg/Ml Carp) 2 mg IV NOW STA Stop: 09/27/20 19:33 Last Admin: 09/27/20 19:37 Dose: 2 mg Documented by: [id number] Ondansetron HCl (Ondansetron Inj 2 Mg/Ml 2 Ml Vial) 4 mg IV NOW STA Stop: 09/27/20 19:33 Last Admin: 09/27/20 19:37 Dose: 4 mg Documented by: [id number] Critical Care Time Critical Care Time: Yes Total Critical Care Time: 45 I have personally spent approximately 45 minutes of critical care time in the direct management of this patient. This includes bedside care, interpretation of diagnostic studies, and testing, discussion with consultants, patient, and family members, and other required patient management activities. These minutes are in excess of all separately billable procedures. Medical Decision Making Differential Diagnosis Symptomatic anemia, GI bleed, dehydration, myelodysplastic syndrome, metabolic derangement, pneumonia, COVID-19, influenza Medical Records Attestation: I reviewed the patient's medical records. I did perform a limited focused review of portions of the patient's old chart on the electronic medical record. The patient was seen here a month ago for generalized weakness. She had a hemoglobin of 7 at that time and was transfused 2 units packed RBCs. Home Medications Current Medication List: was personally reviewed by me Laboratory Data Attestation: I reviewed the patient's lab results. Result diagrams: 09/27/20 18:10 09/27/20 18:10 Lab Results 09/27/20 09/27/20 09/27/20 Range/Units 18:10 18:10 18:10 WBC 35.44 H* (4.8-10.8) K/uL RBC 2.74 L (4.2-5.4) M/uL Hgb 8.4 L (12.0-16.0) g/dL Hct 27.5 L (37-47) % MCV 100.4 H (80-100) fL MCH 30.7 (25-34) pg MCHC 30.5 L (32-36) g/dL RDW Std Deviation 98.8 H (36.4-46.3) fL RDW Coeff of Radha 27.6 H (11.5-14.5) % Plt Count 1188 H* (130-400) K/uL MPV 12.6 H (7.4-10.4) fL Absolute Nucleated RBC 1.60 H (0-0) K/uL Nucleated RBC % (auto) 4.5 % Neutrophils % (Manual) 94.8 % Lymphocytes % (Manual) 0.9 % Monocytes % (Manual) 4.3 % Neutrophils # (Manual) 33.60 H (1.4-6.5) K/uL Total Absolute Neuts 33.60 H (1.4-6.5) K/uL Lymphocytes # (Manual) 0.32 L (1.2-3.4) K/uL Total Abs Lymphocytes 0.32 L (1.2-3.4) K/uL Monocytes # (Manual) 1.52 H (0.11-0.59) K/uL Giant Platelets 1+ Hypochromasia Present Basophilic Stippling 1+ Anisocytosis Present Target Cells 1+ PT 13.7 H (9.0-12.0) Seconds INR 1.3 H (0.9-1.1) APTT 32.3 H (21.0-31.0) Seconds PTT Ratio 1.2 Sodium 140 (136-145) mmol/L Potassium 6.3 H* (3.5-5.1) mmol/L Chloride 112 H (98-107) mmol/L Carbon Dioxide 18 L (21-32) mmol/L Anion Gap 11.0 (3-11) BUN 85 H (7-18) mg/dl Creatinine 2.06 H (0.6-1.2) mg/dl Est Cr Clr Drug Dosing 16.5 ml/min Est GFR ( Amer) 26.1 Est GFR (Non-Af Amer) 22.5 BUN/Creatinine Ratio 41.2 H (10-20) Glucose 163 H (70-99) mg/dl POC Glucose (70-99) mg/dl Calcium 8.7 (8.5-10.1) mg/dl Total Bilirubin 0.6 (0.2-1) mg/dl AST 28 (15-37) U/L ALT 105 H (12-78) U/L Alkaline Phosphatase 94 (45-117) U/L Troponin I 0.129 H* (0-0.045) ng/ml Total Protein 6.6 (6.4-8.2) gm/dl Albumin 3.2 L (3.4-5.0) gm/dl Globulin 3.4 (2.5-4.0) gm/dl Albumin/Globulin Ratio 0.9 (0.9-2) Specimen Hemolysis COVID-19 Eval Order SARS-CoV-2 (PCR) (Negative) Influenza Type A (PCR) (Neg) Influenza Type B (PCR) (Neg) RSV (RT-PCR) (Neg) 09/27/20 09/27/20 09/27/20 Range/Units 18:41 18:41 20:21 WBC (4.8-10.8) K/uL RBC (4.2-5.4) M/uL Hgb (12.0-16.0) g/dL Hct (37-47) % MCV (80-100) fL MCH (25-34) pg MCHC (32-36) g/dL RDW Std Deviation (36.4-46.3) fL RDW Coeff of Radha (11.5-14.5) % Plt Count (130-400) K/uL MPV (7.4-10.4) fL Absolute Nucleated RBC (0-0) K/uL Nucleated RBC % (auto) % Neutrophils % (Manual) % Lymphocytes % (Manual) % Monocytes % (Manual) % Neutrophils # (Manual) (1.4-6.5) K/uL Total Absolute Neuts (1.4-6.5) K/uL Lymphocytes # (Manual) (1.2-3.4) K/uL Total Abs Lymphocytes (1.2-3.4) K/uL Monocytes # (Manual) (0.11-0.59) K/uL Giant Platelets Hypochromasia Basophilic Stippling Anisocytosis Target Cells PT (9.0-12.0) Seconds INR (0.9-1.1) APTT (21.0-31.0) Seconds PTT Ratio Sodium (136-145) mmol/L Potassium (3.5-5.1) mmol/L Chloride (98-107) mmol/L Carbon Dioxide (21-32) mmol/L Anion Gap (3-11) BUN (7-18) mg/dl Creatinine (0.6-1.2) mg/dl Est Cr Clr Drug Dosing ml/min Est GFR ( Amer) Est GFR (Non-Af Amer) BUN/Creatinine Ratio (10-20) Glucose (70-99) mg/dl POC Glucose 219 H (70-99) mg/dl Calcium (8.5-10.1) mg/dl Total Bilirubin (0.2-1) mg/dl AST (15-37) U/L ALT (12-78) U/L Alkaline Phosphatase (45-117) U/L Troponin I (0-0.045) ng/ml Total Protein (6.4-8.2) gm/dl Albumin (3.4-5.0) gm/dl Globulin (2.5-4.0) gm/dl Albumin/Globulin Ratio (0.9-2) Specimen Hemolysis COVID-19 Eval Order CovFluRsv at [facility] SARS-CoV-2 (PCR) NEGATIVE (Negative) Influenza Type A (PCR) Negative (Neg) Influenza Type B (PCR) Negative (Neg) RSV (RT-PCR) Negative (Neg) Imaging Data Radiologist's Impression: SINGLE VIEW CHEST CLINICAL HISTORY: Dyspnea. FINDINGS: An AP, portable, upright chest radiograph is compared to study dated 07/09/2020 and correlated with chest CT dated 01/28/2020. The examination is degraded by portable technique and patient rotation. A left-sided central venous infusion port is new from previous. The heart is top normal for projection noting atherosclerotic calcification of the thoracic aorta. There are calcified mediastinal and hilar lymph nodes. Advanced emphysema and chronic interstitial thickening is similar to previous. There is no airspace Consolidation or pleural effusion. No pneumothorax is seen. The skeletal structures are osteopenic. The bony thorax is grossly intact. A calcified breast implant projects over the right chest. Surgical clips are noted in the right axilla. IMPRESSION: Advanced emphysematous change with no acute cardiopulmonary abnormality. ACT 112: Negative or not required by law. Electronically signed by: Ezio Darden M.D. 09/27/2020 7:05 PM Dictated: 09/27/201902 Transcribed: 09/27/201902 ECG Data Attestation: I personally reviewed and interpreted this ECG as follows: Indication: + weakness Rate (beats per minute): 102 Rhythm: + sinus tachycardia ECG Intervals/blocks: + Incomplete right bundle branch block ECG ST segments: + ST depression and + T-wave inversions ECG Findings: no PVCs Comparison ECG Date: from (07-29-2020) Change: the following changes noted (ST depressions in V3 and V4 are new) Additional Comments: Repeat twelve-lead EKG per my interpretation shows normal sinus rhythm at a rate of 99 bpm there is an incomplete right bundle branch block. QTC is [address] depressions in leads V3 and V4 with T wave inversions. No ST elevations are noted. MDM Narrative I did evaluate the patient as noted above. The patient is presenting with flulike symptoms and generalized weakness for the past week. She did have a negative Covid test 3 days ago. She does have a history of myelodysplastic syndrome and required transfusion about a month ago for a hemoglobin of 7. The patient is chronically on oxygen. She is placed on 2 L of oxygen via nasal cannula. IV access was established. I did treat her with normal saline IV. I did place an order for continuous cardiac monitoring. The monitor showed sinus tachycardia at a rate of 102 bpm. I did order and personally review the patient's 12-lead EKG as described above. She has sinus tachycardia with ST depressions and T wave inversions in the anterior leads. I did order and personally reviewed the images of the patient's chest x-ray as described above. She has emphysematous changes without any acute process. No pneumonia is noted. I did order a urine analysis. I did order and review the patient's blood work as noted in the electronic medical record. The patient has a white count of 35 with a platelet count over million. Hemoglobin is 8.4. She has DEISY with a creatinine of 2.06. Potassium is elevated at 6.3. Troponin is 0.129. Glucose is 163. Covid and influenza testing are both negative. I did discuss the test results with the patient. She requested something for her body aches and did not want Tylenol. She was given morphine 2 mg IV and Zofran 4 mg IV. She was also given IV calcium gluconate, IV insulin and IV D50 for her hyperkalemia. I did discuss the case with Dr. Castillo of [facility] hematology. He did not have any recommendations for any acute intervention at this time. He did not feel she needed transfusion. The patient is denying having any chest discomfort at this time nor in the near past. She does state that she has had some shortness of breath but does not feel short of breath now. And her concern is mostly for her body aches and cough. I did perform a repeat EKG which showed persistent ST depressions in leads V3 and V4. She continues to deny any anginal symptoms. Repeat blood sugar is 219. I did discuss the case with the hospitalist and watch case polisher for further care as an inpatient. Anticoagulation as per the hospitalist. I did reassess the patient multiple times. She does state that she feels much better. She denies shortness of breath or chest discomfort. Impression & Plan Non-ST elevated myocardial infarction (non-STEMI), MDS (myelodysplastic syndrome), Anemia, Thrombocytosis, Leukocytosis, DEISY (acute kidney injury), Acute hyperkalemia, Flu-like symptoms Discharge Plan Visit Data Chief Complaint: Illness Stated Complaint: SOB ED Provider: Kelechi Downs Discharge Problem: Non-ST elevated myocardial infarction (non-STEMI), MDS (myelodysplastic syndrome), Anemia, Thrombocytosis, Leukocytosis, DEISY (acute kidney injury), Acute hyperkalemia, Flu-like symptoms Patient Disposition: Admitted As Inpatient Condition: Good Forms Stand Alone Forms: My [facility] [employer] Prescriptions Prescriptions: No Action ondansetron HCl 8 mg Tablet 8 mg PO Q12H PRN (Reason: Nausea) RF: 0 rizatriptan [Maxalt] 10 mg Tablet 10 mg PO .DAILY/UD PRN (Reason: Headache) RF: 0 bismuth subsalicylate [Pepto-Bismol] 262 mg/15 mL Suspension 524 mg PO QID PRN (Reason: GI-UPSET) RF: 0 risedronate [Actonel] 35 mg tablet 35 mg PO WK RF: 0 sucralfate [Carafate] 1 gram tablet 1 gm PO ACHS RF: 0 anagrelide 1 mg capsule 1 mg PO BID Qty: 60 RF: 0 allopurinol 100 mg Tablet 100 mg PO DAILY RF: 0 aspirin 81 mg Tablet,Delayed Release (Dr/Ec) 81 mg PO DAILY RF: 0 temazepam [Restoril] 30 mg Capsule 30 mg PO HS PRN (Reason: Sleep) RF: 0 pantoprazole [Protonix] 40 mg Tablet,Delayed Release (Dr/Ec) 40 mg PO BID RF: 0 pregabalin [Lyrica] 75 mg Capsule 75 mg PO BID RF: 0 albuterol sulfate 2.5 mg /3 mL (0.083 %) solution for nebulization 2.5 mg inhalation Q4H PRN (Reason: Wheezing) RF: 0 olopatadine 0.1 % drops 1 drp OPB BID PRN (Reason: ITCHY EYES) RF: 0 fluticasone propion-salmeterol [Advair Diskus] 500-50 mcg/dose blister with device 1 inh INHALATION BID RF: 0 albuterol sulfate [Ventolin HFA] 90 mcg/actuation HFA aerosol inhaler 2 puff INHALATION QID PRN (Reason: Shortness Of Breath Or Wheezing) RF: 0 Spiriva with HandiHaler 18 mcg capsule, w/inhalation device 1 cap INHALATION QAM RF: 0 loperamide 2 mg capsule 2 mg PO Q4H PRN (Reason: Diarrhea) RF: 0 trazodone 50 mg tablet 50 mg PO HS RF: 0 acetaminophen [Tylenol] 325 mg Tablet 325 mg PO QID PRN (Reason: Pain) RF: 0 hydroxyurea 500 mg capsule 500 mg PO DAILY RF: 0 Sivextro 200 mg tablet 200 mg PO DAILY RF: 0 multivitamin [Daily-Ted] Tablet 1 tab PO QAM Qty: 30 RF: 0 bisacodyl 10 mg Suppository 10 mg MS DAILY PRN (Reason: constipation) Qty: 30 RF: 0 docusate sodium 100 mg Capsule 100 mg PO BID Qty: 30 RF: 0 ferrous gluconate 324 mg (38 mg iron) Tablet 324 mg PO BIDM Qty: 30 RF: 0 oxycodone [OxyContin] 10 mg tablet,oral only,ext.rel.12 hr 10 mg PO BID Qty: 20 RF: 0 oxycodone 5 mg capsule 5 mg PO QID PRN (Reason: pain) Qty: 30 RF: 0 prednisone 20 mg tablet 20 mg PO DIRECTED RF: 0 levofloxacin 500 mg tablet 500 mg PO DIRECTED RF: 0 Referrals Referrals: Valerie Chavez MD [Primary Care Provider] - Discharge Problem: Anemia Qualifiers: Anemia type: unspecified type Qualified Code(s): D64.9 - Anemia, unspecified Leukocytosis Qualifiers: Leukocytosis type: unspecified Qualified Code(s): D72.829 - Elevated white blood cell count, unspecified
[2020-09-27 18:57] LABS: INR 1.3 (0.9-1.1); Partial Thromboplastin Ratio 1.2; Partial Thromboplastin Time 32.3 Seconds (21.0-31.0); Prothrombin Time 13.7 Seconds (9.0-12.0)
--- NOTE | 2020-09-27 19:06 | XRay Report ---
SINGLE VIEW CHEST CLINICAL HISTORY: Dyspnea. FINDINGS: An AP, portable, upright chest radiograph is compared to study dated 07/09/2020 and correlat ed with chest CT dated 01/28/2020. The examination is degraded by portable technique and patient rotat ion. A left-sided central venous infusion port is new from previous. The heart is top normal for proj ection noting atherosclerotic calcification of the thoracic aorta. There are calcified mediastinal an d hilar lymph nodes. Advanced emphysema and chronic interstitial thickening is similar to previous. T here is no airspace Consolidation or pleural effusion. No pneumothorax is seen. The skeletal structur es are osteopenic. The bony thorax is grossly intact. A calcified breast implant projects over the ri t chest. Surgical clips are noted in the right axilla. IMPRESSION: Advanced emphysematous change with no acute cardiopulmonary abnormality. ACT 112: Negative or not required by law. Electronically signed by: Ezio Darden M.D. 09/27/2020 7:05 PM
[2020-09-27 19:07] LABS: Hematocrit (blood only) 27.5 % (37-47); Hemoglobin 8.4 g/dL (12.0-16.0); Mean Corpuscular Hemoglobin 30.7 pg (25-34); Mean Corpuscular Hgb Conc 30.5 g/dL (32-36); Mean Corpuscular Volume 100.4 fL (80-100); Mean Platelet Volume 12.6 fL (7.4-10.4); Nucleated RBC % (auto) 4.5 %; Platelet Count 1188 K/uL (130-400); RDW Coefficient of Variation 27.6 % (11.5-14.5); RDW Standard Deviation 98.8 fL (36.4-46.3); Red Blood Count 2.74 M/uL (4.2-5.4); White Blood Count 35.44 K/uL (4.8-10.8)
[2020-09-27 19:08] LABS: ALC (manual) 0.32 K/uL (1.2-3.4); Anisocytosis Present; Basophilic Stippling 1+; Giant Platelets 1+; Hypochromasia Present; Lymphocytes # (manual) 0.32 K/uL (1.2-3.4); Lymphocytes % (manual) 0.9 %; Monocytes # (manual) 1.52 K/uL (0.11-0.59); Monocytes % (manual) 4.3 %; Neutrophils % (manual) 94.8 %; Target Cells 1+
[2020-09-27 19:10] LABS: Albumin Globulin Ratio 0.9 (0.9-2); Albumin Level 3.2 gm/dl (3.4-5.0); BUN Creatinine Ratio 41.2 (10-20); Bilirubin,Total 0.6 mg/dl (0.2-1); Calcium 8.7 mg/dl (8.5-10.1); Creatinine Clr Calc Pharmacy 16.5 ml/min; Est GFR (African American) 26.1; Est GFR (Non-African American) 22.5; Globulin 3.4 gm/dl (2.5-4.0); Total Protein 6.6 gm/dl (6.4-8.2); Troponin I 0.129 ng/ml (0-0.045)
[2020-09-27 19:27] LABS: Influenza A virus by PCR Negative (Neg); Influenza B virus by PCR Negative (Neg); RSV by PCR Negative (Neg); SARS CoV2 RNA(COVID-19) InHosp NEGATIVE (Negative)
[2020-09-27] MEDS ORDERED: MoRPHine SULFATE 2 MG/ML CARP IV STA (19:32)
[2020-09-27] MEDS ORDERED: ONDANSETRON INJ 2 MG/ML 2 ML VIAL IV STA (19:32)
[2020-09-27 19:36] LABS: Potassium 6.3 mmol/L (3.5-5.1)
[2020-09-27] MEDS: SODIUM CHLORIDE 0.9% 500 ML IV SCH ×2 (19:37→23:57)
[2020-09-27] MEDS ORDERED: NovoLIN-R INSULIN PER UNIT CHARGE IV STA (19:38)
[2020-09-27] MEDS ORDERED: CALCIUM GLUCONATE 1,000 MG/60 ML BAG IV STA (19:38)
[2020-09-27] MEDS ORDERED: DEXTROSE 50% 50 ML SYRINGE IV STA (19:38)
[2020-09-27] MEDS ORDERED: ACETAMINOPHEN 325 MG TAB PO PRN (23:18)
[2020-09-27] MEDS ORDERED: SODIUM POLYSTYRENE SULFONATE 15G/60ML SUSP PO STA (23:18)
[2020-09-27] MEDS ORDERED: bisacodyL 10 MG SUPP PR PRN (23:18)
[2020-09-27] MEDS ORDERED: ALBUTEROL HFA 8 GM INHALER INH PRN (23:18)
[2020-09-27] MEDS ORDERED: NITROGLYCERIN SL 0.4 MG/TAB TAB SL PRN (23:18)
[2020-09-27] MEDS ORDERED: RIZATRIPTAN BENZOATE 10 MG TAB PO PRN (23:18)
[2020-09-27] MEDS ORDERED: LOPERAMIDE HCL 2 MG CAP PO PRN (23:18)
[2020-09-27 23:59] LABS: Appearance Urine Clear (Clear); Bacteria Urine Automated Negative (Negative); Bilirubin Urine Negative (Negative); Blood Urine Negative (Negative); Color Urine Yellow; Epithelial Cell Urine Auto 0-5 /lpf (0-5); Glucose Urine UA Negative (Negative); Ketones Urine Negative (Negative); Leukocyte Esterase Urine Negative (Negative); Nitrite Urine Negative (Negative); Protein Urine 1+ (Negative); RBC Urine Automated 0-4 /hpf (0-4); Urobilinogen Urine Negative (Negative)
[2020-09-28] MEDS ORDERED: oxyCODONE HCL IR 5 MG TAB (IMMEDIATE RELEASE) PO PRN (00:12)
--- NOTE | 2020-09-28 00:48 | History and Physical Report ---
DATE OF ADMISSION: 09/27/2020 CHIEF COMPLAINT: Cough, shortness of breath and nausea. HISTORY OF PRESENT ILLNESS: This is a 80-year-old female with past medical history significant for COPD, multiple pulmonary nodules, chronic diastolic CHF, chronic kidney disease stage III, history of pulmonary embolism, history of severe pulmonary hypertension, peripheral vascular disease, severe protein-calorie malnutrition, history of chronic diarrhea, GERD, history of peptic ulcer disease, osteoporosis, anemia of chronic kidney disease stage III, thrombocytosis, myelodysplastic syndrome, history of subcapsular hemorrhage of spleen, depression, cachexia, personal history of breast cancer, history of prolonged QT, status post A-port. Patient lives alone, ambulates with a walker. She has caregiver from 9am-5pm five days a week and daughter also live close by. The patient comes here because of on and off fever for the last 9 days, some runny nose, 9 days of cough with yellowish and greenish phlegm and getting short of breath, feeling generalized body aches and weakness. This prompted her to come to the ER. She was tested COVID negative 3 days ago, in the ER also COVID test came negative and also influenza and RSV negative. Troponin slightly bumped at 0.19 and some EKG changes and potassium of 6.3. Creatinine is 2. Currently denies any diarrhea. Feeling nauseous, poor appetite. Denies any chest pain. Has chronic headaches. No blurred vision, no double vision, no earache, no sore throat, no loss of sense of smell or taste. No vomiting. Normal bladder movements. Denies any blood in the stools or black stools. Denies any hematuria. Denies any epistaxis. Hemodynamics are stable. ALLERGIES: LATEX, NICKEL, SHELLFISH, IODINATED CONTRAST AGENTS, LOBSTERS. PAST MEDICAL HISTORY: As mentioned above. PAST SURGICAL HISTORY: Colonoscopy, EGDs, laparoscopic cholecystectomy, right modified mastectomy in 1990, left total hip joint surgery, total abdominal hysterectomy with removal of tubes, left total hip replacement. MEDICATIONS: The patient is on levaquin 500mg p.o. daily, albuterol nebulization every 4 hours p.r.n., prednisone tapering dose, temazepam 30 mg p.o. at bedtime p.r.n., anagrelide 1 mg p.o. daily, hydroxyurea 500 mg p.o. daily, amitriptyline 75 mg p.o. at bedtime, Compazine 5 mg p.r.n., ophthalmic solution 1 drop in each eye twice daily as needed, vitamin C 1 tablet p.o. b.i.d., OxyContin 10 mg p.o. b.i.d.,Sivextro 200 mg p.o. daily, ., oxycodone 5 mg p.o. q. 6 hours p.r.n., Protonix 40 mg p.o. b.i.d., Advair Diskus 500/50 mcg 1 puff b.i.d., albuterol 2 puffs 4 times daily, calcium plus vitamin D 1 tablet daily, vitamin D 50,000 units capsule weekly, allopurinol 100 mg p.o. daily, aspirin 81 mg p.o. daily, Lyrica 75 mg p.o. b.i.d., Actonel 35 mg p.o. weekly, Zofran 8 mg p.o. b.i.d. p.r.n., albuterol, Spiriva 18 mcg inhalation daily, Imodium 2 mg p.o. p.r.n., Pepto-Bismol p.r.n. FAMILY HISTORY: No family history in file. SOCIAL HISTORY: , lives alone. Former smoker, smoked 1 pack a day for 50 years, quit in 2017. No alcohol use, no drug use. REVIEW OF SYMPTOMS: As per HPI. Rest of review of symptoms negative PHYSICAL EXAMINATION: GENERAL: The patient is thin and frail, not in acute distress. VITAL SIGNS: Temperature 36.5, pulse 102, respiratory rate 18, blood pressure 126/81, oxygen 94% on 2 liters. HEENT: No pallor, no icterus. Oral mucosa moist. NECK: No JVD. No neck masses. CARDIOVASCULAR: S1, S2 heard, regular rate and rhythm, no murmur, no gallop. A-port seen on the left side chest. RESPIRATORY SYSTEM: Normal AP diameter. No accessory muscle use. No wheezing, no crackles. ABDOMEN: Soft, bowel sounds present, nontender. No distention. CENTRAL NERVOUS SYSTEM: Cranial nerves II-XII grossly intact. Nonfocal. EXTREMITIES: No edema, no erythema. LABORATORY DATA: WBC 35, hemoglobin 8.4, hematocrit 27.5, platelets 188. PT 13.7, INR 1.3, APTT 32.3. Sodium 140, potassium 6.3, chloride 112, bicarbonate 18, BUN 55, creatinine 2.06, serum glucose 163, calcium 8.7, total bilirubin 0.6, AST 28, ALT 105, alkaline phosphatase 94. Troponin I 0.12. SARS-CoV-2 PCR negative. Influenza A and B negative. RSV negative. Chest x-ray, advanced emphysematous change, no acute cardiopulmonary abnormalities. EKG: Sinus tachycardia, rate of 102, ST depression in anterior leads and T-wave inversions in inferior lead. ASSESSMENT AND PLAN: This is a 80-year-old female who presents with generalized weakness, on and off fevers, and shortness of breath and cough. 1. Generalized weakness, cough with phlegm, fevers, COVID is negative 2 times outpatient and today. We will have to do CT chest to rule out any pneumonia. We will empirically start on Rocephin and doxycycline. Monitor in the tele floor. 2. Hyperkalemia. Potassium of 6.3. She is already received insulin and dextrose with calcium gluconate in the ER. We will follow repeat labs. Plan to give Kayexalate. Avoid nephrotoxic agents. Consult nephrology in a.m. Currently n.p.o. 3. Acute kidney injury on chronic kidney disease stage III. Baseline creatinine around 0.9, present creatinine of 2, getting fluids. Avoid nephrotoxin agents. Follow the labs. 4. Non-ST elevated myocardial infarction, EKG changes with mild elevation in troponin, patient is asymptomatic .. Starting empirically on low dose IV heparin. Follow serial enzymes, echocardiogram, n.p.o. and consult cardiology in a.m. The patient is already on aspirin. We will follow the lipid profile. 5. Myelodysplastic syndrome with thrombocytosis. Recently, her platelets were 1.9 million, today they are 188. Follows with hematology/oncology, on anagrelide and hydroxyurea. ER spoke with the heme/onc international affairs vice president. No further recommendations given. 6. Anemia of chronic kidney disease, myelodysplastic syndrome. Hemoglobin 8.4. Getting IV heparin. We will monitor the labs. ER spoke with hematology/oncology international affairs vice president and no transfusion was recommended at this time. 7. Leukocytosis. She has chronically elevated white count, but more than usual, getting antibiotics as above. We will follow the repeat labs. Also consulted hematology/oncology in a.m. 8. Severe protein-calorie malnutrition. Consult dietitian when stable. 9. History of chronic diarrhea, currently stable, on loperamide p.r.n. 10. History of peptic ulcer, on Protonix t.i.d. 11. History of chronic obstructive pulmonary disease, moderate to severe pulmonary hypertension. Continue home inhalers, currently stable. 12. Chronic diastolic congestive heart failure. We will monitor for any volume overload. 13. Chronic pain. Continue home pain medications. 14. Deep venous thrombosis prophylaxis, on IV heparin. DISPOSITION: Closely monitor in the tele floor. Level 1 full code. Expected PT and OT prior to discharge. Social service to help with discharge planning. SHAY
[2020-09-28] MEDS: D5W AND NSS 1,000 ML IV SCH ×2 (00:50→10:29)
[2020-09-28] MEDS: cefTRIAXone SODIUM 1,000 MG in DEXTROSE 5% 50 ML IV SCH (00:51)
[2020-09-28] MEDS ORDERED: HEPARIN 100 UNIT/ML 5ML FLUSH FLUSH PRN (00:56)
[2020-09-28] MEDS: PANTOprazole 40 MG TAB PO SCH ×3 (01:11→21:07)
[2020-09-28 01:27] LABS: Calcium 8.6 mg/dl (8.5-10.1); Creatinine Clr Calc Pharmacy 18.6 ml/min; Est GFR (African American) 31.8; Est GFR (Non-African American) 27.4; Potassium 4.7 mmol/L (3.5-5.1)
[2020-09-28] MEDS: DOXYCYCLINE HYCLATE 100 MG in DEXTROSE 5% 100 ML IV SCH ×2 (01:30→15:19)
[2020-09-28] MEDS: HEPARIN SODIUM/DEXTROSE 25,000 UNITS/500 ML BAG IV SCH (01:31)
[2020-09-28] MEDS: TEMAZEPAM 15 MG CAPSULE PO PRN ×2 (01:39→22:34)
[2020-09-28] MEDS: Heparin IV Low Dose *NO* Bolus IV SCH ×3 (01:43→01:45)
[2020-09-28 06:43] LABS: BUN Creatinine Ratio 45.2 (10-20); Calcium 8.1 mg/dl (8.5-10.1); Creatinine Clr Calc Pharmacy 19.3 ml/min; Est GFR (African American) 33.4; Est GFR (Non-African American) 28.8; Magnesium 2.9 mg/dl (1.8-2.4); Potassium 4.5 mmol/L (3.5-5.1)
[2020-09-28 06:46] LABS: Hemoglobin 8.1 g/dL (12.0-16.0); Mean Corpuscular Hemoglobin 31.3 pg (25-34); Mean Corpuscular Hgb Conc 31.2 g/dL (32-36); Mean Corpuscular Volume 100.4 fL (80-100); Mean Platelet Volume 12.1 fL (7.4-10.4); Nucleated RBC # (auto) 1.33 K/uL (0-0); Nucleated RBC % (auto) 3.9 %; Platelet Count 1033 K/uL (130-400); RDW Coefficient of Variation 26.8 % (11.5-14.5); RDW Standard Deviation 96.6 fL (36.4-46.3); Red Blood Count 2.59 M/uL (4.2-5.4)
[2020-09-28 06:48] LABS: ALC (manual) 1.16 K/uL (1.2-3.4); ANC (manual) 29.51 K/uL (1.4-6.5); Anisocytosis Present; Basophilic Stippling 1+; Eosinophils # (manual) 0.31 K/uL (0-0.5); Eosinophils % (manual) 0.9 %; Hypochromasia Present; Lymphocytes # (manual) 1.16 K/uL (1.2-3.4); Lymphocytes % (manual) 3.4 %; Metamyelocytes # (manual) 0.58 K/uL (0-0); Metamyelocytes % (manual) 1.7 %; Monocytes # (manual) 2.05 K/uL (0.11-0.59); Myelocytes # (manual) 0.58 K/uL (0-0); Myelocytes % (manual) 1.7 %; Neutrophils # (manual) 29.51 K/uL (1.4-6.5); Neutrophils % (manual) 86.3 %; Polychromasia 1+
--- NOTE | 2020-09-28 07:21 | CT Scan Report ---
CT chest diagnostic wo con CT DOSE: 233.36 mGycm CLINICAL HISTORY: 80 years-old Female with cough, sob. Acute cough with shortness of breath TECHNIQUE: Multiaxial CT images of the chest were performed without contrast. A dose lowering techni que was utilized adhering to the principles of ALARA. COMPARISON: Chest radiograph of same day, CTA chest 01/28/2020, CT abdomen and pelvis 04/28/2020. FINDINGS: Heart is mildly enlarged. Extensive coronary artery calcifications. Left IJ [id number] c atheter distal tip terminates within the superior cavoatrial junction. There is no thoracic aortic an eurysm. Moderate calcified plaque of the thoracic aorta. Dilated pulmonary artery measuring 3.1 cm dickerson ggests pulmonary artery hypertension. Calcified left hilar lymph nodes. Trace pleural effusions. Severe emphysema with chronic fibrotic changes. Mild dependent left greater than right bibasilar opacities. The previously noted 10 mm nodule of the basal right lower lobe is no t identified on today's study. 4 mm right apical pulmonary nodule, image 41 series 4 is unchanged fro m comparison. 5 mm solid nodule of the right middle lobe, image 184 series 4 is also stable. 2 mm pul monary nodule of the apical posterior segment left upper lobe on image 50 series 4, also stable. Muco us plugging of the left lower lobe. Numerous splenic infarct redemonstrated. Interval decrease size of the spleen with progression of the lobular morphology which represents a change from 04/28/2020. Peripherally calcified right breast imp lant. Degenerative changes of the shoulders and spine. No acute fracture. 30% superior endplate compr ession deformity at T12 is unchanged with 3 mm retropulsion. Mild flattening of the left humeral head . IMPRESSION: 1. Severe emphysema with mild dependent bibasilar atelectasis. There is left lower lobe mucous pluggi ng with asymmetric consolidative opacities. Correlate clinically to exclude pneumonitis. 2. Trace pleural effusions. 3. Numerous splenic infarcts redemonstrated with progressive splenic atrophy. 4. Additional findings as above. ACT 112: Negative or not required by law. Electronically signed by: Jarvis Lewis M.D. 09/28/2020 7:20 AM
[2020-09-28] MEDS ORDERED: OLOPATADINE~ORDER AWAITING ACTION SCH (08:00)
[2020-09-28 09:10] LABS: Partial Thromboplastin Ratio 1.3; Partial Thromboplastin Time 35.9 Seconds (21.0-31.0)
[2020-09-28] MEDS ORDERED: HEPARIN IV BOLUS 2,000 UNITS in SYRINGE 0 ML IV ONE (09:45)
--- NOTE | 2020-09-28 10:05 | Progress Notes ---
DATE: 09/28/2020 REASON FOR CONSULT: Acute renal failure. HISTORY OF PRESENT ILLNESS: The patient is a 80-year-old female with extremely complicated medical problem list involving pretty much all the organ systems, but had a pretty normal baseline kidney function of 0.8 as of 07/2020. She presented to the hospital yesterday with cough, shortness of breath, nausea and off and on fever for the last 9 days. She was checked for COVID multiple times and it is all negative. Blood work done in the Emergency Department was significant for a creatinine elevation at 2 as well as elevated potassium. Since admission, she has received medical management for hyperkalemia and potassium is now normal. Creatinine is also trending down and is down to 1.6. The patient is extremely weak and somnolent and unable to get any history from the patient. Based on the testing so far, it appears she has possible respiratory infection for which she is getting antibiotics. Troponin is also elevated and is rising. Patient is getting heparin. The patient has advanced myelodysplastic syndrome and her labs are abnormal as expected with very elevated WBC count as well as platelet count. She was also anemic and drawbench operator helper has been consulted. I cannot obtain any history regarding her oral intake as an outpatient, nor about diarrhea. Her vital signs still shows somewhat of tachycardia and lowish blood pressure. She is getting IV fluid. REVIEW OF SYSTEMS: Unable to obtain given patient's medical condition. PAST MEDICAL AND PAST SURGICAL HISTORY: Includes severe COPD, pulmonary nodules, chronic diastolic congestive heart failure, history of pulmonary embolism, history of severe pulmonary hypertension, peripheral vascular disease, severe protein calorie malnutrition, myelodysplastic syndrome with chronic leukocytosis, thrombocytosis and anemia, osteoporosis, history of subcapsular hemorrhage of spleen, depression, cachexia, personal history of breast cancer. Laparoscopic cholecystectomy, right modified mastectomy, total hip joint surgery, total abdominal hysterectomy, left total hip replacement. MEDICATIONS: At home was reviewed in detail and is as per the medicine reconciliation list and the H and P, it does not appear patient is on any diuretics and was not taking any NSAIDs. FAMILY HISTORY: Negative for renal disease or dialysis. SOCIAL HISTORY: The patient is . She lives alone. Former smoker until 2017. No alcohol, no drugs. She gets help from the caretakers 5 days a week with close monitoring by her daughter who lives close by. ALLERGY LIST: Reviewed in detail. PHYSICAL EXAMINATION: GENERAL: The patient is very cachectic, frail. She is in moderate distress. She is very weak and could barely speak, but it appears she understood the questions, but was too weak to answer. VITAL SIGNS: Temperature 36.5, pulse rate 102, respiratory rate 24, blood pressure 109/62, 95% on 4 liters nasal cannula. HEENT: No pallor, no icterus. ENT: Mucous membranes moist. NECK: Supple. No jugular venous distention. CARDIOVASCULAR: S1 and S2 heard, tachycardic, soft systolic murmur heard. There is a port on the left side of the chest. RESPIRATORY: Very decreased breath sounds with prolonged expiration. Occasional crackles. ABDOMEN: Soft, nontender. No distention. EXTREMITIES: Shows no edema. NEUROLOGIC: She appears to be alert and seems to be understanding the questions, but was too weak to answer the question. LABORATORY TESTS: Potassium was elevated at 6.3 at the time of admission, but it is down to 4-point now, 4.5. BUN is down to 76, creatinine is 1.68. At the time of admission, she had a creatinine of 2.06. Her baseline creatinine as of 07/2020 was 0.87. Chronically elevated WBC count and is now 34,000 with elevated platelet count of 1033. Hemoglobin is low at 8.1, is fairly stable. CT scan of the chest shows severe emphysema with bibasilar atelectasis, left lower lobe mucus plugging with possible pneumonitis, trace pleural effusion, numerous splenic infarct. Urine showed 1+ protein, negative for blood and fairly bland urine sediment otherwise. ASSESSMENT AND PLAN: A 80-year-old female with very extensive list of comorbidities and medical problems, but fairly normal baseline kidney function, now admitted with multitude of symptoms likely respiratory tract infection. She has associated acute renal failure and hyperkalemia for which I have been consulted. Acute renal failure. It appears to be prerenal in etiology. She is making urine. Her urine sediment was very bland consistent with a prerenal picture. Potassium was high at 6.3, but is now down to normal and even the creatinine is trending in the right direction. she is quite tiny with very tenuous cardiopulmonary status. Given this, I would like to decrease the fluid rate to 50 mL per hour and continue that for maybe 1 more day. No further workup is needed for renal failure. MTDD
[2020-09-28] MEDS: FLUTICASONE/VILANTEROL 200/25MCG 14 PUFFS/INHALER INH SCH (10:28)
[2020-09-28] MEDS: HYDROXYUREA 500 MG CAP PO SCH (10:30)
[2020-09-28] MEDS: ASPIRIN 81 MG ECTAB PO SCH (10:30)
[2020-09-28] MEDS: UMECLIDINIUM BROMIDE 62.5MCG/BLISTER 7 PUFFS/INHALER INH SCH (10:30)
[2020-09-28] MEDS: MULTIVITAMIN TAB PO SCH (10:30)
[2020-09-28] MEDS: DOCUSATE SODIUM 100 MG CAP PO SCH ×2 (10:30→21:07)
[2020-09-28] MEDS: SUCRALFATE 1 GM TAB PO SCH ×4 (10:30→21:07)
[2020-09-28] MEDS: FERROUS GLUCONATE 324 MG TAB PO SCH ×2 (10:30→16:35)
[2020-09-28] MEDS: oxyCODONE HCL 10 MG TABCR (OxyCONTIN) PO SCH ×2 (10:30→21:06)
[2020-09-28] MEDS: PREGABALIN 75 MG CAP PO SCH ×2 (10:30→21:06)
[2020-09-28] MEDS: allopurinoL 100 MG TAB PO SCH (10:31)
--- NOTE | 2020-09-28 11:25 | Electrocardiogram Report ---
Test Reason : Blood Pressure : / mmHG Vent. Rate : 099 BPM Atrial Rate : 099 BPM P-R Int : 140 ms QRS Dur : 100 ms QT Int : 368 ms P-R-T Axes : 076 075 050 degrees QTc Int : 472 ms Normal sinus rhythm Incomplete right bundle branch block Prolonged QT Abnormal ECG When compared with ECG of 27-SEP-2020 18:43, (unconfirmed) Nonspecific T wave abnormality has replaced inverted T waves in Inferior leads Confirmed by Bryant Jaime ([id number]) on 09/28/2020 11:24:33 AM Referred By: REFERRED SELF Confirmed By:Jose Jaime
--- NOTE | 2020-09-28 11:31 | Electrocardiogram Report ---
Test Reason : Blood Pressure : / mmHG Vent. Rate : 103 BPM Atrial Rate : 103 BPM P-R Int : 174 ms QRS Dur : 104 ms QT Int : 348 ms P-R-T Axes : 075 076 -16 degrees QTc Int : 455 ms Poor data quality, interpretation may be adversely affected Sinus tachycardia Incomplete right bundle branch block Abnormal ECG When compared with ECG of 27-SEP-2020 20:21, (unconfirmed) No significant change was found Confirmed by Bryant Jaime ([id number] on 09/28/2020 11:31:08 AM Referred By: REFERRED SELF Confirmed By:Jose Jaime
--- NOTE | 2020-09-28 14:28 | Hospitalist Progress Note ---
Date of Service September 28, 2020 Assessment & Plan (1) Flu-like symptoms: She tested negative for COVID and dosen't have pneumonia per se, however, she is ill appearing and will keep original abx going for now pending clinical improvement and/or culture results. She is a generall ill lady with progressively worsening chronic comorbidities over the past year including multiple hospitalizations. 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 There is mucous plugging redemonstrated on her CT scan which has affected her in the past, also. Cont to provide supportive respiratory care in PCU setting as needed. She responded well to a trial of BIPAP if she worsens at least as a trial. There is no wheezing present so agree with holding steroids at this time. She has had significnat dysphagia this week and is currently NPO- aspiration may be contributing to respiratory symptoms.? Flutter valve (2) Non-ST elevated myocardial infarction (non-STEMI): cont heparin drip per cardiology (3) MDS (myelodysplastic syndrome): Reports compliance with anagralide and hydrea-will need to review outpatient records. Contact Heme for recommendations. (4) Anemia: Likely multifactorial and related to multiple chronic medical comorbidities. No indication for transfer at this time. (5) Acute hyperkalemia: resolved after acute treatment overnight. Cont daily labs. (6) Hypercoagulable state: multiple splenic infarcts seen as well as known thromboembolic disease present in the lungs. 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 Cont heparin for now pending further recs from hematology. (7) DVT prophylaxis: Heparin Full code Dispo-cont PCU monitoring. DO [facility] Hospitalist Admission and Anticipated Discharge Date Admission Date: September 27, 2020 Subjective cc: 80 yo F with MAGDY symptoms for the past week denies GI symptoms but reports difficulty swallowing productive cough of greenish phlegm still vaping denies SOb at thsi time but she is on oxygen supplementation at 4LPM doesn't feel much improved since admission denies chest pain reports compliance with anagralide and hydroxyurea recently Review of Systems Review of Systems: All systems reviewed & are unremarkable except as noted in Subjective Physical Exam Physical Exam: CONSTITUTIONAL: thin, elderly, vitals as above, generally appears run down and older than her stated age EYES: normal conjunctivae, no scleral icterus ENT: external ear and nose normal, MMM RESPIRATORY: coarse rhonchi at bases, no rales or wheezes, normal respiratory effort CHEST: port accessed, L ant chest wall CARDIOVASCULAR: regular rate and rhythm, S1 and 2 heard without murmurs, gallops or rubs, no JVD, no peripheral edema GASTROINTESTINAL: normal bowel sounds, soft, nontender, nondistended. MUSCULOSKELETAL: strength 5/5 throughout, head is normocephalic and atraumatic SKIN: warm and dry NEUROLOGIC: No facial palsy, no dysarthria. CN 2-12 grossly intact, normal cognition, normal speech, no tremor. No gross focal deficits. PSYCHIATRIC: alert cooperative and oriented to person, place and time. Results & Data Results & Data ([facility]) Vital Signs (Past 12 Hours) Vital Signs Temp Pulse Pulse Resp BP Pulse Ox 09/28/20 08:00 36.7 C 101 H 18 109/62 95 09/28/20 07:00 103 H 09/28/20 03:25 36.7 C 101 H 16 104/63 90 Laboratory Results Short CBC 09/27/20 09/28/20 Range/Units 18:10 05:37 WBC 35.44 H* 34.20 H* (4.8-10.8) K/uL Hgb 8.4 L 8.1 L (12.0-16.0) g/dL Hct 27.5 L 26.0 L (37-47) % Plt Count 1188 H* 1033 H* (130-400) K/uL BMP 09/27/20 09/28/20 09/28/20 18:10 00:47 05:37 Sodium 140 141 142 Potassium 6.3 H* 4.7 D 4.5 Chloride 112 H 114 H 116 H Carbon Dioxide 18 L 19 L 21 BUN 85 H 81 H 76 H Creatinine 2.06 H 1.75 H D 1.68 H Glucose 163 H 113 H 135 H Calcium 8.7 8.6 8.1 L Cardiac Enzymes 09/27/20 09/28/20 09/28/20 Range/Units 18:10 00:47 05:37 Troponin I 0.129 H* 0.114 H* 0.130 H* (0-0.045) ng/ml 09/28/20 Range/Units 08:40 Troponin I 0.121 H* (0-0.045) ng/ml Liver Function 09/27/20 Range/Units 18:10 Total Bilirubin 0.6 (0.2-1) mg/dl AST 28 (15-37) U/L ALT 105 H (12-78) U/L Alkaline Phosphatase 94 (45-117) U/L Albumin 3.2 L (3.4-5.0) gm/dl Urine 09/27/20 Range/Units 23:33 Urine Color Yellow Urine Appearance Clear (Clear) Urine pH 5.0 (4.5-7.5) Ur Specific [place] 1.020 (1.000-1.030) Urine Protein 1+ H (Negative) Urine Glucose (UA) Negative (Negative) Medications Administered Current Inpatient Medications Acetaminophen (Acetaminophen 325 Mg Tab) 650 mg PO Q4H PRN PRN Reason: Pain or Fever Stop: 10/27/20 23:17 Last Admin: 09/28/20 01:06 Dose: 650 mg Documented by: Albuterol (Albuterol 0.083% Nebu Soln 3 Ml Vial) 2.5 mg INH Q4H PRN PRN Reason: Wheezing Stop: 10/27/20 23:17 Albuterol (Albuterol Hfa 8 Gm Inhaler) 2 puffs INH QID PRN PRN Reason: Shortness Of Breath Or Wheezing Stop: 10/27/20 23:17 Allopurinol (Allopurinol 100 Mg Tab) 100 mg PO DAILY [facility] Stop: 10/28/20 08:59 Last Admin: 09/28/20 10:31 Dose: Not Given Documented by: Aspirin (Aspirin 81 Mg Ectab) 81 mg PO DAILY [facility] Stop: 10/28/20 08:59 Last Admin: 09/28/20 10:30 Dose: Not Given Documented by: Bisacodyl (Bisacodyl 10 Mg Supp) 10 mg GA DAILY PRN PRN Reason: constipation Stop: 10/27/20 23:17 Docusate Sodium (Docusate Sodium 100 Mg Cap) 100 mg PO BID [facility] Stop: 10/28/20 08:59 Last Admin: 09/28/20 10:30 Dose: Not Given Documented by: Ferrous Gluconate (Ferrous Gluconate 324 Mg Tab) 324 mg PO BIDM [facility] Stop: 10/28/20 07:59 Last Admin: 09/28/20 10:30 Dose: Not Given Documented by: Fluticasone/Vilanterol (Fluticasone/Vilanterol 200/25mcg 14 Puffs/Inhaler) 1 puffs INH DAILY [facility] Stop: 10/28/20 08:59 Last Admin: 09/28/20 10:28 Dose: 1 puffs Documented by: Heparin Sodium (Porcine) (Heparin 100 Unit/Ml 5ml Flush) 5 ml FLUSH PRN PRN PRN Reason: Flush Stop: 10/28/20 00:55 Hydroxyurea (Hydroxyurea 500 Mg Cap) 500 mg PO DAILY [facility] Stop: 10/28/20 08:59 Last Admin: 09/28/20 10:30 Dose: Not Given Documented by: Dextrose/Sodium Chloride (D5w And Nss) 1,000 mls @ 50 mls/hr IV .Q20H [facility] Stop: 10/27/20 23:17 Last Admin: 09/28/20 10:29 Dose: 50 mls/hr Documented by: Heparin Sodium/Dextrose (Heparin Sodium/Dextrose) 25,000 units in 500 mls @ 13 mls/hr IV .Q24H [facility]; Protocol Stop: 10/27/20 23:17 Last Titration: 09/28/20 09:32 Dose: 650 units/hr, 13 mls/hr Documented by: Ceftriaxone Sodium 1,000 mg/ (Dextrose) 50 mls @ 100 mls/hr IV Q24H [facility]; Protocol Stop: 10/05/20 00:00 Last Infusion: 09/28/20 01:24 Dose: Infused Documented by: Doxycycline Hyclate 100 mg/ (Dextrose) 110 mls @ 50 mls/hr IV Q12H [facility] Stop: 10/05/20 01:59 Last Infusion: 09/28/20 04:25 Dose: Infused Documented by: Loperamide HCl (Loperamide Hcl 2 Mg Cap) 2 mg PO Q4H PRN PRN Reason: Diarrhea Stop: 10/27/20 23:17 Miscellaneous (Anagrelide~Order Awaiting Action) 1 ea N/A QS [facility] Stop: 10/28/20 07:59 Last Admin: 09/28/20 10:13 Dose: Not Given Documented by: Multivitamins (Multivitamin Tab) 1 tab PO QAM [facility] Stop: 10/28/20 08:59 Last Admin: 09/28/20 10:30 Dose: Not Given Documented by: Nitroglycerin (Nitroglycerin Sl 0.4 Mg/Tab Tab) 0.4 mg SL UD PRN PRN Reason: Chest Pain Stop: 10/27/20 23:17 Oxycodone HCl (Oxycodone Hcl Ir 5 Mg Tab (Immediate Release)) 5 mg PO QID PRN PRN Reason: Pain Stop: 10/12/20 00:11 Oxycodone HCl (Oxycodone Hcl 10 Mg Tabcr (Oxycontin)) 10 mg PO BID [facility] Stop: 10/12/20 08:59 Last Admin: 09/28/20 10:30 Dose: Not Given Documented by: Pantoprazole Sodium (Pantoprazole 40 Mg Tab) 40 mg PO BID [facility] Stop: 10/28/20 08:59 Last Admin: 09/28/20 10:30 Dose: Not Given Documented by: Pregabalin (Pregabalin 75 Mg Cap) 75 mg PO BID [facility] Stop: 10/28/20 08:59 Last Admin: 09/28/20 10:30 Dose: Not Given Documented by: Rizatriptan Benzoate (Rizatriptan Benzoate 10 Mg Tab) 10 mg PO .DAILY/UD PRN PRN Reason: Headache Stop: 10/27/20 23:17 Sucralfate (Sucralfate 1 Gm Tab) 1 gm PO ACHS [facility] Stop: 10/28/20 07:29 Last Admin: 09/28/20 10:30 Dose: Not Given Documented by: Temazepam (Temazepam 15 Mg Capsule) 30 mg PO HS PRN PRN Reason: Sleep Stop: 10/27/20 23:17 Last Admin: 09/28/20 01:39 Dose: 30 mg Documented by: Trazodone HCl (Trazodone Hcl 50 Mg Tab) 50 mg PO HS [facility] Stop: 10/28/20 20:59 Umeclidinium [place] (Umeclidinium [place] 62.5mcg/Blister 7 Puffs/Inhaler) 1 puffs INH QAM [facility] Stop: 10/28/20 08:59 Last Admin: 09/28/20 10:30 Dose: Not Given Documented by: (1) Anemia Anemia type: unspecified type Qualified Code(s): D64.9 - Anemia, unspecified
--- NOTE | 2020-09-28 16:53 | Cardiology Consultation ---
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 Question if patient's underlying illness is bacterial or viral pneumonia, as noted, serial recent COVID-19 test negative. She has a history of myelodysplastic syndrome, with WBC count of 34, hemoglobin 8.1 (was as low as 6.7 on 08/27/2020 recently) platelet count 1033. Serial troponin I levels performed with mild, flat elevation of 0.129, 0.114, 0.130, and 0.121 ng/ ml. Her EKG is abnormal with T wave inversions in the anteroseptal leads especially V3, V4 suggestive of of ischemia, however in light of review of her echocardiogram, this may be due to septal strain related to chronic right ventricular pressure and volume overload. Echocardiogram reveals severe right ventricular chamber enlargement and diffuse right ventricular hypokinesis with findings of moderate to severe tricuspid regurgitation and pulmonary artery pressure estimated to be greater than 70 mmHg. The left ventricle is small by comparison, with abnormal septal motion related to RV pressure/volume overload status, otherwise normal LV wall motion. In comparison to the prior echocardiogram performed in June 2020, the right ventricular chamber dilatation, RV dysfunction, and pulmonary hypertension have progressed. It is noted that a past echocardiogram dating back to 2017 revealed only mild pulmonary hypertension of 45 mmHg is estimated at that time. Patient's findings are certainly suggestive of chronic thromboembolic pulmonary hypertension, with findings of pulmonary embolism on CT angiogram dating back to Jan, 2020, for which she was never anticoagulated because of multiple life- threatening bleeding episodes which took place historically on no anticoagulation. At present, I think it is reasonable to continue the unfractionated heparin that she is on for now. Question adherence with regards to her myelodysplastic syndrome medications especially with how high her platelet count is present. She is very ill with multiple problems as noted above. History of Present Illness Attending Physician: Desiree Cason, DO History of Present Illness Abbie Rand is a 80 year old female seen in cardiology consultation per the request of Dr Ibanez and Dr Cason for the evaluation of elevation in the troponin I level with concerns of NSTEMI. History obtained via review of outpatient and inpatient records, patient 2-week, lethargic to provide additional history. She was admitted via the emergency room overnight last night because of subjective fever, runny nose, and sputum, generalized body aches. She has had Covid testing done several days ago, which was repeated in the emergency room and was negative. Hyperkalemia was noted on presentation last evening at 6.3 mmol/L, and has improved to 4.5 with medication therapy. Patient has a complex past history. It appears that she moved to the area in 2016 having previously been followed in [place]. She has a history of remote breast cancer and mastectomy, as well as myeloproliferative disorder, essential thrombocythemia with JAK2 mutation. She also has a longstanding previous history of cigarette smoking per previous records, having smoked cigarettes from the age of [age] years old up until her 70s. She has a history of resultant COPD. CT angiogram performed at [facility] in Jan, 2020 revealed findings of nonocclusive peripheral pulmonary emboli with chronic appearance. Chest CT performed this admission revealed severe emphysema with left lower lobe mucous plugging and trace pleural effusions. She is reportedly not on anticoagulation having been admitted in December, for syncope, melena, and was found to have a duodenal ulcer and received 5 units of packed red blood cells for severe symptomatic anemia at that time. In January 2020 she was found to have a perisplenic hematoma. Due to these bleeding issues, anticoagulation was never initiated in response to the 01/2020 CT angiogram. Allergies Allergy/AdvReac Type Severity Reaction Status Date / Time latex Allergy Intermediate HIVES Verified 08/27/20 20:02 nickel Allergy Intermediate Hives/Itchi Verified 08/27/20 20:02 ness shellfish derived Allergy Intermediate Hives Verified 08/27/20 20:02 Iodinated Contrast Media AdvReac Mild Diarrhea Verified 08/27/20 20:02 [Iodinated Contrast- Oral and IV Dye] Lobster Allergy Severe HIVES Uncoded 08/27/20 20:02 Home Medications Medication Instructions Recorded Confirmed Type pantoprazole [Protonix] 40 mg PO BID 06/06/18 09/27/20 History pregabalin [Lyrica] 75 mg PO BID 06/06/18 09/27/20 History temazepam [Restoril] 30 mg PO HS PRN 06/06/18 09/27/20 History Spiriva with HandiHaler 1 cap INHALATION QAM 12/17/19 09/27/20 History albuterol sulfate 2.5 mg INHALATION Q4H PRN 12/17/19 09/27/20 History albuterol sulfate [Ventolin HFA] 2 puff INHALATION QID PRN 12/17/19 09/27/20 History fluticasone propion-salmeterol 1 inh INHALATION BID 12/17/19 09/27/20 History [Advair Diskus] loperamide 2 mg PO Q4H PRN 12/17/19 09/27/20 History olopatadine 1 drp OPB BID PRN 12/17/19 09/27/20 History trazodone 50 mg PO HS 12/17/19 09/27/20 History acetaminophen [Tylenol] 325 mg PO QID PRN 01/23/20 09/27/20 History bismuth subsalicylate 524 mg PO QID PRN 04/01/20 09/27/20 History [Pepto-Bismol] ondansetron HCl 8 mg PO Q12H PRN 04/01/20 09/27/20 History risedronate [Actonel] 35 mg PO WK 04/01/20 09/27/20 History rizatriptan [Maxalt] 10 mg PO .DAILY/UD PRN 04/01/20 09/27/20 History sucralfate [Carafate] 1 gm PO ACHS 04/01/20 09/27/20 History hydroxyurea 500 mg PO DAILY 04/22/20 09/27/20 History allopurinol 100 mg PO DAILY 06/15/20 09/27/20 History aspirin 81 mg PO DAILY 06/15/20 09/27/20 History bisacodyl 10 mg IA DAILY PRN #30 ea 07/18/20 09/27/20 Rx docusate sodium 100 mg PO BID #30 cap 07/18/20 09/27/20 Rx ferrous gluconate 324 mg PO BIDM #30 tab 07/18/20 09/27/20 Rx multivitamin [Daily-Ted] 1 tab PO QAM #30 tab 07/18/20 09/27/20 Rx oxycodone 5 mg PO QID PRN #30 cap 07/18/20 09/27/20 Rx oxycodone [OxyContin] 10 mg PO BID #20 tab 07/18/20 09/27/20 Rx anagrelide 1 mg PO DAILY 09/27/20 09/27/20 History levofloxacin 500 mg PO DIRECTED 09/27/20 09/27/20 History prednisone 20 mg PO DIRECTED 09/27/20 09/27/20 History Patient History Medical History Abrasion of great toe, left, infected Amputation of great toe CKD (chronic kidney disease), stage III COPD (chronic obstructive pulmonary disease) Embolic disease of toe History of breast cancer chemo History of MRSA infection "left hip wound" History of peptic ulcer disease IBS (irritable bowel syndrome) Diarrhea predominant ; follows with GI Leukocytosis MDS/MPN (myelodysplastic/myeloproliferative neoplasms) Myelodysplastic syndrome Pelvic fracture 12/2018 pelvic fracture and monitor Poor intravenous access Pulmonary emboli 12/2019 just monitored Pulmonary nodules CT 01/23/20: 5 mm RML 3 mm RML 3 mm DEVEN 4 mm RUL S/P ORIF (open reduction internal fixation) fracture fracture hip x 5 and then had ORIF Subcapsular hemorrhage of spleen Thrombocytosis Surgical History H/O mastectomy modified radical masectomy H/O: hysterectomy History of cholecystectomy Hx of esophagogastroduodenoscopy Status post mastectomy "modified right mastectomy 1990" Status post total hip replacement, left had after ORIF hip Family History Mother Heart disease Social History Smoking Status: Former smoker Tobacco Type: Cigarettes packs per day: 1; Years Smoked: 50; Smoking End Date: 2018; Second Hand Exposure: No; Hx Alcohol Use: Yes Alcohol type: wine Hx Substance Use: No Preferred Language: Divehi Communication Ability: Effective 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 Beliefs That Will Affect Care: None marital status: / Current Living Situation: Alone How many Children do You have: 2 Other Information That Helps Us Care for You: No Feels Safe at Home: Yes Safety Concerns: Feels Safe At This Time Assistive Devices: Cane, Denture - Upper, Denture - Lower, Glasses and Oxygen - Continuous Review of Systems Review of Systems: Unobtainable due to reduced consciousness Physical Exam Physical Exam: Temp Pulse Resp BP Pulse Ox 36.7 C 107 H 16 122/69 92 09/28/20 15:45 09/28/20 15:45 09/28/20 15:45 09/28/20 15:45 09/28/20 15:45 Constitutional: Chronically ill in appearance, frail appearing, cachectic Respiratory: Decreased breath sounds bilaterally at the bases Cardiovascular: Rate/Rhythm: regular rhythm Heart Sounds: + murmur (1/6 systolic murmur) Gastrointestinal (Abdomen): normal bowel sounds, soft, nontender, no hepatosplenomegaly Neurologic: Lethargic, somnolent Results & Data ([facility]) Vital Signs (Past 12 Hours) Vital Signs Temp Pulse Pulse Resp BP Pulse Ox 09/28/20 15:45 36.7 C 107 H 16 122/69 92 09/28/20 14:45 102 H 09/28/20 08:00 36.7 C 101 H 18 109/62 95 09/28/20 07:00 103 H
[2020-09-28 16:58] LABS: Partial Thromboplastin Ratio 1.5; Partial Thromboplastin Time 42.9 Seconds (21.0-31.0)
[2020-09-28] MEDS ORDERED: CHLORASEPTIC 1.4% SOLN 180 ML BTL MT PRN (18:00)
[2020-09-28] MEDS ORDERED: traZODone HCL 50 MG TAB PO SCH (21:00)
[2020-09-28 23:44] LABS: Partial Thromboplastin Ratio 0.8; Partial Thromboplastin Time 23.5 Seconds (21.0-31.0)
[2020-09-29] MEDS: cefTRIAXone SODIUM 1,000 MG in DEXTROSE 5% 50 ML IV SCH (00:24)
[2020-09-29] MEDS ORDERED: HEPARIN IV BOLUS 3,000 UNITS in SYRINGE 0 ML IV ONE (00:45)
[2020-09-29] MEDS: DOXYCYCLINE HYCLATE 100 MG in DEXTROSE 5% 100 ML IV SCH ×2 (01:03→13:47)
[2020-09-29] MEDS: D5W AND NSS 1,000 ML IV SCH (06:13)
[2020-09-29 06:53] LABS: Hematocrit (blood only) 26.1 % (37-47); Hemoglobin 7.9 g/dL (12.0-16.0); Mean Corpuscular Hemoglobin 30.6 pg (25-34); Mean Corpuscular Hgb Conc 30.3 g/dL (32-36); Mean Corpuscular Volume 101.2 fL (80-100); Mean Platelet Volume 12.3 fL (7.4-10.4); Nucleated RBC # (auto) 1.39 K/uL (0-0); Platelet Count 896 K/uL (130-400); RDW Coefficient of Variation 27.8 % (11.5-14.5); RDW Standard Deviation 97.1 fL (36.4-46.3); Red Blood Count 2.58 M/uL (4.2-5.4); White Blood Count 34.57 K/uL (4.8-10.8)
[2020-09-29 07:14] LABS: Partial Thromboplastin Ratio 1.9; Partial Thromboplastin Time 54.2 Seconds (21.0-31.0)
[2020-09-29 07:21] LABS: BUN Creatinine Ratio 39.9 (10-20); Calcium 8.7 mg/dl (8.5-10.1); Creatinine Clr Calc Pharmacy 29.9 ml/min; Est GFR (African American) 51.7; Est GFR (Non-African American) 44.6; Magnesium 2.4 mg/dl (1.8-2.4); Phosphorus 2.6 mg/dl (2.5-4.9)
[2020-09-29 07:28] LABS: HCO3 ABG 21 mmol/L (19-24); Oxygen Saturation ABG 91.9 % (90-95); PCO2 ABG 48 mmHg (35-46); PO2 ABG 72 mmHg (80-95); pH ABG 7.25 (7.35-7.45)
[2020-09-29 07:30] LABS: Allen Test Pos (Pos)
[2020-09-29] MEDS: HEPARIN SODIUM/DEXTROSE 25,000 UNITS/500 ML BAG IV SCH (10:09)
[2020-09-29] MEDS: SUCRALFATE 1 GM TAB PO SCH (10:15)
[2020-09-29] MEDS: FERROUS GLUCONATE 324 MG TAB PO SCH (10:15)
[2020-09-29] MEDS: DOCUSATE SODIUM 100 MG CAP PO SCH (10:15)
[2020-09-29] MEDS: ASPIRIN 81 MG ECTAB PO SCH (10:15)
[2020-09-29] MEDS: FLUTICASONE/VILANTEROL 200/25MCG 14 PUFFS/INHALER INH SCH (10:15)
[2020-09-29] MEDS: PREGABALIN 75 MG CAP PO SCH (10:15)
[2020-09-29] MEDS: MULTIVITAMIN TAB PO SCH (10:15)
[2020-09-29] MEDS: HYDROXYUREA 500 MG CAP PO SCH (10:15)
[2020-09-29] MEDS: allopurinoL 100 MG TAB PO SCH (10:16)
[2020-09-29] MEDS: UMECLIDINIUM BROMIDE 62.5MCG/BLISTER 7 PUFFS/INHALER INH SCH (10:16)
[2020-09-29] MEDS: oxyCODONE HCL 10 MG TABCR (OxyCONTIN) PO SCH (10:16)
[2020-09-29] MEDS: PANTOprazole 40 MG TAB PO SCH ×2 (10:16→20:11)
[2020-09-29] MEDS ORDERED: ACETAMINOPHEN 650 MG/65 ML VIAL IV PRN (10:53)
--- NOTE | 2020-09-29 10:54 | Progress Notes ---
DATE: 09/29/2020 NEPHROLOGY PROGRESS NOTE SUBJECTIVE: Overnight, no major change in status. However, her kidney function has improved and is essentially normal at this time. PHYSICAL EXAMINATION: VITAL SIGNS: Blood pressure is 102/62, pulse rate 109, and 92% on 4 liter nasal cannula. HEENT: Mucous membrane appears to be moist. NECK: Supple. No jugular venous distention. CHEST: Bilaterally very decreased breath sounds. CARDIOVASCULAR: S1 and S2, tachycardic, irregular. Soft systolic murmur heard. ABDOMEN: Soft, nontender. EXTREMITIES: Show no edema. LABORATORY TEST: From this morning shows serum sodium went up a bit to 147, chloride is 122, BUN 47, creatinine 1.17. ASSESSMENT AND PLAN: A 80-year-old female with mild acute renal failure in the setting of likely respiratory infections. Acute renal failure: It appears to be prerenal and seems to have improved pretty much to normal. Potassium is also normal. Serum sodium and serum chloride went up as a result of normal saline-containing fluid. RECOMMENDATIONS: 1. Stop D5 normal saline. 2. Give D5 water at 80 mL per hour for 1000 mL and then stop, that should correct the serum sodium back to normal.
[2020-09-29] MEDS ORDERED: traZODone HCL 50 MG TAB PO PRN (10:59)
--- NOTE | 2020-09-29 11:26 | Electrocardiogram Report ---
Test Reason : Blood Pressure : / mmHG Vent. Rate : 105 BPM Atrial Rate : 105 BPM P-R Int : 130 ms QRS Dur : 094 ms QT Int : 360 ms P-R-T Axes : 087 094 087 degrees QTc Int : 475 ms Sinus tachycardia Rightward axis Incomplete right bundle branch block Abnormal ECG When compared with ECG of 28-SEP-2020 07:08, T wave inversion now evident in Lateral leads Confirmed by Bryant Jaime ([id number]) on 09/29/2020 11:25:44 AM Referred By: REFERRED SELF Confirmed By:Jose Jaime
[2020-09-29] MEDS: DEXTROSE 5% 500 ML IV SCH ×2 (11:34→18:18)
[2020-09-29] MEDS ORDERED: ANAGRELIDE 1 MG PO SCH ×2 (12:00→21:00)
--- NOTE | 2020-09-29 12:16 | Hospitalist Progress Note ---
Date of Service September 29, 2020 Assessment & Plan (1) Acute respiratory acidosis: Somnolence and fatigue this morning with ABG results supportive of CO2 retention. Patient has emphysema, however, she is moving air well and not experiencing significant productive sputum changes more suggestive of COPD exacerbation. Also not reporting SOB. Feel this is more from oversedation from polypharmacy-oxy 10mg, trazodone, pregabalin, and restoril. Recommend BIPAP for a couple of hours to correct the acidosis and will look for her fatigue to improve. also, removed oxycodone and pregabalin as med options for her at this time as these are not regularly prescribed for her, and she is elderly and a small person at 47kg. (2) Chronic thromboembolic disease: Chronic related to her hypercoagulable state including JAK2 kinase mutation, tobacco use (vaping), and MDS with medication noncompliance. Cont heparin drip. (3) Elevated troponin: unclear at this time whether or not patient has ACS or if this elevated troponin and EKG findings are more related to demand ischemia from an already burdened heart in the setting of acute infectious illness. Either way, at this point, she is not a candidate for heart catheterization and continues medical treatment with a heparin drip. Will start metoprolol 12.5mg PO BID with persistent tachycardia and no evidence of active wheezing at this time. (4) Gram-positive bacteremia: May explain some of her symptoms, MRSA not present. Ceftriaxone on board and should cover MSSA and strep. She appears clinically well. Cont ceftriaxone pending further speciation and sensitivities. ID consult requested. Repeat blood cultures. (5) Flu-like symptoms: Uncertain etiology but appears infected with new productive cough, worsened malaise and fatigue over past week. COVID negative. ?lung infection without clear infiltrate suggestive of pneumonia; elevated procalcitonin. Gill ent is not septic. Progressively worsening chronic comorbidities over the past year including multiple hospitalizations. Specifically, she has been found to have multiple pulmonary emboli and splenic infarcts related to her hypercoagulable state (known JAK2 mutation in MDS smoker) but has been unable to tolerate any blood thinners until now because of GI bleeding and splenic hematomas. There is mucous plugging re-demonstrated on her CT scan which has affected her in the past, also. Cont to provide supportive respiratory care in PCU setting as needed. I don't see a need for steroids at this time. Suspect drowsiness and respiratory acidosis related to oxycodone 10mg and pregabalin given overnight which are not something she regularly takes at home. (see PDMP review for fill and prescribing details). These have been removed from her home list. (6) MDS (myelodysplastic syndrome): recent noncompliance with anagralide and Hydrea with PLT levels over 1 mill on admission. Recently had dosage of meds increased by hematology and she was not able to tolerate medication side effects. Per crime scene investigator, she should be on Anagrilide 1mg PO daily (not on formulary but she is carrying her med with her-discussed with nurse who will send to pharmacy for relabel and administration) and Hydrea 500mg daily. (7) Anemia: Likely multifactorial and related to multiple chronic medical comorbidities. No indication for transfusion at this time. (8) Acute hyperkalemia: resolved after acute treatment on admission. Cont daily labs. (9) Hypercoagulable state: multiple splenic infarcts seen as well as known thromboembolic disease present in the lungs. 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 Cont heparin for now pending clinical improvement. (10) DVT prophylaxis: Heparin Full code Dispo-cont PCU monitoring. Desiree Cason DO [facility] Hospitalist Admission and Anticipated Discharge Date Admission Date: September 27, 2020 Subjective cc: 80 yo F with MAGDY symptoms for the past week denies fevers or chills at home denies new skin wounds with new staph in blood reported to be drowsy by staff received oxy 10mg and pregabalin 75 in addition to her restoril and trazodone overnight not consistently taking oxy or pregabalin per PDMP review ABG with respiratory acidosis this morning-patient is oriented although still fatigued she denies SOB and is not working to breathe or wheezing still with some cough denies feeling hungry no other issues at this time Review of Systems Review of Systems: All systems reviewed & are unremarkable except as noted in Subjective Physical Exam Physical Exam: CONSTITUTIONAL: thin, elderly, vitals as above, generally appears run down and older than her stated age EYES: normal conjunctivae, no scleral icterus ENT: external ear and nose normal, MMM RESPIRATORY: CTAB with very good air movement throughout, no rhonchi, rales or wheezes, normal respiratory effort CHEST: port accessed, L ant chest wall CARDIOVASCULAR: regular rate and rhythm, S1 and 2 heard without murmurs, gallops or rubs, no JVD, no peripheral edema GASTROINTESTINAL: normal bowel sounds, soft, nontender, nondistended. MUSCULOSKELETAL: strength 5/5 throughout, head is normocephalic and atraumatic SKIN: warm and dry NEUROLOGIC: No facial palsy, no dysarthria. CN 2-12 grossly intact, normal cognition, normal speech, no tremor. No gross focal deficits. PSYCHIATRIC: alert cooperative and oriented to person, place and time. Results & Data Results & Data ([facility]) Vital Signs (Past 12 Hours) Vital Signs Temp Pulse Pulse Resp BP Pulse Ox 09/29/20 11:14 103 H 23 96 09/29/20 10:44 36.5 C 106 H 18 107/68 92 09/29/20 07:00 36.6 C 109 H 102 H 15 102/62 92 09/29/20 04:48 37 C 109 H 16 105/65 93 Laboratory Results Short CBC 09/29/20 Range/Units 06:34 WBC 34.57 H* (4.8-10.8) K/uL Hgb 7.9 L (12.0-16.0) g/dL Hct 26.1 L (37-47) % Plt Count 896 H (130-400) K/uL BMP 09/29/20 06:34 Sodium 147 H Potassium 4.0 Chloride 122 H Carbon Dioxide 20 L BUN 47 H Creatinine 1.17 D Glucose 102 H Calcium 8.7 Medications Administered Current Inpatient Medications Albuterol (Albuterol 0.083% Nebu Soln 3 Ml Vial) 2.5 mg INH Q4H PRN PRN Reason: Wheezing Stop: 10/27/20 23:17 Albuterol (Albuterol Hfa 8 Gm Inhaler) 2 puffs INH QID PRN PRN Reason: Shortness Of Breath Or Wheezing Stop: 10/27/20 23:17 Last Admin: 09/28/20 19:50 Dose: 2 puffs Documented by: Allopurinol (Allopurinol 100 Mg Tab) 100 mg PO DAILY [facility] Stop: 10/28/20 08:59 Last Admin: 09/29/20 10:16 Dose: Not Given Documented by: Aspirin (Aspirin 81 Mg Ectab) 81 mg PO DAILY@1700 [facility] Stop: 10/29/20 16:59 Bisacodyl (Bisacodyl 10 Mg Supp) 10 mg SC DAILY PRN PRN Reason: constipation Stop: 10/27/20 23:17 Docusate Sodium (Docusate Sodium 100 Mg Cap) 100 mg PO BID [facility] Stop: 10/28/20 08:59 Last Admin: 09/29/20 10:15 Dose: Not Given Documented by: Ferrous Gluconate (Ferrous Gluconate 324 Mg Tab) 324 mg PO BIDM [facility] Stop: 10/28/20 07:59 Last Admin: 09/29/20 10:15 Dose: Not Given Documented by: Fluticasone/Vilanterol (Fluticasone/Vilanterol 200/25mcg 14 Puffs/Inhaler) 1 puffs INH DAILY [facility] Stop: 10/28/20 08:59 Last Admin: 09/29/20 10:15 Dose: Not Given Documented by: Heparin Sodium (Porcine) (Heparin 100 Unit/Ml 5ml Flush) 5 ml FLUSH PRN PRN PRN Reason: Flush Stop: 10/28/20 00:55 Hydroxyurea (Hydroxyurea 500 Mg Cap) 500 mg PO DAILY@1700 [facility] Stop: 10/29/20 16:59 Heparin Sodium/Dextrose (Heparin Sodium/Dextrose) 25,000 units in 500 mls @ 17 mls/hr IV .Q24H [facility]; Protocol Stop: 10/27/20 23:17 Last Admin: 09/29/20 10:09 Dose: 850 units/hr, 17 mls/hr Documented by: Ceftriaxone Sodium 1,000 mg/ (Dextrose) 50 mls @ 100 mls/hr IV Q24H [facility]; Protocol Stop: 10/05/20 00:00 Last Infusion: 09/29/20 01:10 Dose: Infused Documented by: Doxycycline Hyclate 100 mg/ (Dextrose) 110 mls @ 50 mls/hr IV Q12H [facility] Stop: 10/05/20 01:59 Last Infusion: 09/29/20 03:24 Dose: Infused Documented by: Dextrose (D5w) 500 mls @ 80 mls/hr IV .Q6H15M [facility] Stop: 10/29/20 10:29 Last Admin: 09/29/20 11:34 Dose: 80 mls/hr Documented by: Acetaminophen (Ofirmev) 650 mg in 65 mls @ 260 mls/hr IV Q8H PRN PRN Reason: pain or fever Stop: 10/02/20 10:52 Loperamide HCl (Loperamide Hcl 2 Mg Cap) 2 mg PO Q4H PRN PRN Reason: Diarrhea Stop: 10/27/20 23:17 Nitroglycerin (Nitroglycerin Sl 0.4 Mg/Tab Tab) 0.4 mg SL UD PRN PRN Reason: Chest Pain Stop: 10/27/20 23:17 Anagrelide 1mg - (Patient's Own Med) 1 ea PO PM [facility] Stop: 10/29/20 20:59 Pantoprazole Sodium (Pantoprazole 40 Mg Tab) 40 mg PO BID [facility] Stop: 10/28/20 08:59 Last Admin: 09/29/20 10:16 Dose: Not Given Documented by: Phenol (Chloraseptic 1.4% Soln 180 Ml Btl) 2 sprays MT Q4H PRN PRN Reason: sore throat Stop: 10/28/20 17:59 Last Admin: 09/28/20 21:12 Dose: 2 sprays Documented by: Rizatriptan Benzoate (Rizatriptan Benzoate 10 Mg Tab) 10 mg PO .DAILY/UD PRN PRN Reason: Headache Stop: 10/27/20 23:17 Sucralfate (Sucralfate 1 Gm Tab) 1 gm PO ACHS [facility] Stop: 10/28/20 07:29 Last Admin: 09/29/20 10:15 Dose: Not Given Documented by: Temazepam (Temazepam 15 Mg Capsule) 30 mg PO HS [facility] Stop: 10/29/20 20:59 Trazodone HCl (Trazodone Hcl 50 Mg Tab) 50 mg PO HS PRN PRN Reason: insomnia Stop: 10/28/20 20:59 Umeclidinium [place] (Umeclidinium [place] 62.5mcg/Blister 7 Puffs/Inhaler) 1 puffs INH QAM [facility] Stop: 10/28/20 08:59 Last Admin: 09/29/20 10:16 Dose: 1 puffs Documented by: (1) Anemia Anemia type: unspecified type Qualified Code(s): D64.9 - Anemia, unspecified
--- NOTE | 2020-09-29 13:53 | Cardiology Progress Note ---
Date of Service September 29, 2020 Assessment & Plan (1) Chronic thromboembolic disease: Patient with mild, flat troponin elevation without renzo symptoms of angina, abnormal EKG with septal, anterior, deep T wave inversions, which have been present since fall 2019, but more prominent at present, this could be due to coronary heart disease, but also may very well be explained in the setting of RV pressure/volume overload with resultant septal abnormalities on her echocardiogram, severe pulmonary hypertension, with pulmonary pressures that are likely close to if not equal to her systemic pressure. As noted, she had several life-threatening bleeding episodes in 2019, and was found to have chronic pulmonary embolism on CT of the chest Jan, 2020. Has not been anticoagulated due to ongoing issues of bleeding risk, anemia. She is currently on heparin. Future considerations include anticoagulating her, perhaps with Eliquis 2.5 mg twice daily given her weight of less than 60 kg, and age of 80 (which is of course very close to 82 years old, the age cutoff for consideration of dose reduction). This is truly a difficult decision, she is at risk for bleeding complications as well as progression of her thrombotic processes. At present, may be too late to alter her trajectory. Agree with addition of low-dose beta-ashleigh for sinus tachycardia 100 to 110 bpm. Although I think this is likely a physiologic tachycardia, perhaps beta- ashleigh therapy will help prevent her from going into atrial fibrillation. (2) Gram-positive bacteremia: Continue antibiotic therapy, Rocephin, doxycycline, await finalization of her cultures and sensitivities. (3) Hypercoagulable state: As noted above. Hyperkalemia with noted hyponatremia -Nephrology input noted and appreciated. Admission and Anticipated Discharge Date Admission Date: September 27, 2020 Subjective Patient seen in follow-up of abnormal EKG, mildly elevated troponin, severe right ventricular dysfunction. Patient is more alert today, but still lethargic. She is more conversant today. Review of Systems Review of Systems: All systems reviewed & are unremarkable except as noted in HPI & below Physical Exam Physical Exam: Temp Pulse Resp BP Pulse Ox 36.5 C 103 H 23 107/68 96 09/29/20 10:44 09/29/20 11:14 09/29/20 11:14 09/29/20 10:44 09/29/20 11:14 Constitutional: + cachectic Chronically ill in appearance Respiratory: no respiratory distress and not tachypneic Auscultation: + diminished lung sounds (Decreased breath sounds at the bases); no crackles and no rales Gastrointestinal (Abdomen): normal bowel sounds, soft, nontender, no hepatosplenomegaly Neurologic: Somewhat lethargic, but follows commands moves all 4 extremities Results & Data ([facility]) Vital Signs (Past 12 Hours) Vital Signs Temp Pulse Pulse Resp BP Pulse Ox 09/29/20 11:14 103 H 23 96 09/29/20 10:44 36.5 C 106 H 18 107/68 92 09/29/20 07:00 36.6 C 109 H 102 H 15 102/62 92 09/29/20 04:48 37 C 109 H 16 105/65 93 Laboratory Results Coagulation 09/28/20 09/28/20 09/28/20 Range/Units 16:30 22:30 23:12 APTT 42.9 H Cancelled 23.5 (21.0-31.0) Seconds 09/29/20 Range/Units 06:34 APTT 54.2 H* (21.0-31.0) Seconds CBC 09/29/20 Range/Units 06:34 WBC 34.57 H* (4.8-10.8) K/uL RBC 2.58 L (4.2-5.4) M/uL Hgb 7.9 L (12.0-16.0) g/dL Hct 26.1 L (37-47) % Plt Count 896 H (130-400) K/uL Comprehensive Metabolic Panel 09/29/20 Range/Units 06:34 Sodium 147 H (136-145) mmol/L Potassium 4.0 (3.5-5.1) mmol/L Chloride 122 H (98-107) mmol/L Carbon Dioxide 20 L (21-32) mmol/L BUN 47 H (7-18) mg/dl Creatinine 1.17 D (0.6-1.2) mg/dl Glucose 102 H (70-99) mg/dl Calcium 8.7 (8.5-10.1) mg/dl Intake and Output 09/28/20 09/29/20 09/29/20 22:59 06:59 14:59 Intake Total 238.100 / 2510.518 1219.234 / 2510.518 366.583 / 366.583 Output Total 325 / 325 Balance 238.100 / 2110.518 1219.234 / 2110.518 41.583 / 41.583 Intake: IV 238.100 / 2510.518 1219.234 / 2510.518 366.583 / 366.583 D5w and Nss 1,000 ml @ 50 mls/ 986.667 / 1951.667 200.833 / 200.833 hr IV .Q20H [facility] Rx#:[id number] Vibramycin 100 mg In D5 100 ml 110 / 220 110 / 220 @ 50 mls/hr IV Q12H [facility] Rx#: [id number] HEPARIN SODIUM/DEXTROSE 25,000 128.100 / 288.851 72.567 / 288.851 165.750 / 165.750 units In 500 ml @ 850 UNITS/HR 17 mls/hr IV .Q24H [facility] Rx#: [id number] Rocephin 1,000 mg In D5w 50 ml 50 / 50 @ 100 mls/hr IV Q24H [facility] Rx#: [id number] Output: Urine 325 / 325 Other: Other Intake Source Npo # Unmeasured Voids 2 1 1 Weight 44.4 kg 47.8 kg Weight Measurement Method Built in [facility]
[2020-09-29] MEDS ORDERED: LORazepam 0.5 MG TAB PO STA ×2 (15:49→19:46)
[2020-09-29] MEDS: ALBUTEROL 0.083% NEBU SOLN 3 ML VIAL INH PRN (15:52)
[2020-09-29] MEDS ORDERED: HYDROXYUREA 500 MG CAP PO SCH (17:00)
[2020-09-29] MEDS ORDERED: ASPIRIN 81 MG ECTAB PO SCH (17:00)
[2020-09-29] MEDS: ENOXAPARIN INJ 60 MG/0.6 ML SYR SQ SCH (20:09)
[2020-09-29] MEDS: METOPROLOL TARTRATE 25 MG TAB PO SCH (20:10)
[2020-09-29] MEDS ORDERED: TEMAZEPAM 15 MG CAPSULE PO SCH (21:00)
[2020-09-30] MEDS: cefTRIAXone SODIUM 1,000 MG in DEXTROSE 5% 50 ML IV SCH (00:10)
[2020-09-30] MEDS: DEXTROSE 5% 500 ML IV SCH ×2 (00:11→20:42)
[2020-09-30] MEDS ORDERED: LORazepam 0.5 MG TAB PO STA (00:22)
[2020-09-30] MEDS ORDERED: LORazepam 0.25 MG/0.5 ML VIAL IV STA (00:27)
[2020-09-30 01:54] LABS: Base Excess ABG -4.3 mEq/L (-9-1.8); HCO3 ABG 22 mmol/L (19-24); Oxygen Saturation ABG 91.6 % (90-95); PCO2 ABG 50 mmHg (35-46); PO2 ABG 71 mmHg (80-95); pH ABG 7.27 (7.35-7.45)
[2020-09-30 01:57] LABS: Allen Test POS (Pos)
[2020-09-30] MEDS: DOXYCYCLINE HYCLATE 100 MG in DEXTROSE 5% 100 ML IV SCH (02:36)
[2020-09-30 03:10] LABS: Base Excess ABG -3.5 mEq/L (-9-1.8); HCO3 ABG 23 mmol/L (19-24); Oxygen Saturation ABG 92.5 % (90-95); PCO2 ABG 47 mmHg (35-46); PO2 ABG 73 mmHg (80-95)
[2020-09-30] MEDS: ALBUTEROL 0.083% NEBU SOLN 3 ML VIAL INH PRN (05:29)
[2020-09-30 05:32] LABS: Partial Thromboplastin Ratio 1.5; Partial Thromboplastin Time 42.9 Seconds (21.0-31.0)
[2020-09-30 05:34] LABS: Hematocrit (blood only) 25.3 % (37-47); Hemoglobin 7.6 g/dL (12.0-16.0); Mean Corpuscular Hemoglobin 29.2 pg (25-34); Mean Corpuscular Volume 97.3 fL (80-100); Mean Platelet Volume 12.8 fL (7.4-10.4); Nucleated RBC # (auto) 1.25 K/uL (0-0); Nucleated RBC % (auto) 3.1 %; Platelet Count 751 K/uL (130-400)
[2020-09-30 05:45] LABS: Albumin Level 2.9 gm/dl (3.4-5.0); BUN Creatinine Ratio 35.4 (10-20); Bilirubin Direct 0.2 mg/dl (0-0.2); Bilirubin,Total 0.4 mg/dl (0.2-1); Creatinine Clr Calc Pharmacy 42.2 ml/min; Est GFR (African American) 78.3; Est GFR (Non-African American) 67.5; Magnesium 2.2 mg/dl (1.8-2.4); Phosphorus 2.1 mg/dl (2.5-4.9); Potassium 3.6 mmol/L (3.5-5.1); Total Protein 5.6 gm/dl (6.4-8.2); Troponin I 0.087 ng/ml (0-0.045)
[2020-09-30] MEDS ORDERED: POTASSIUM PHOS 3 MMOL/1 ML INFUSION IV STA (06:05)
[2020-09-30 06:41] LABS: Anisocytosis Present; Basophilic Stippling 1+; Hypochromasia Present; Polychromasia 1+
[2020-09-30 06:42] LABS: ALC (manual) 2.45 K/uL (1.2-3.4); ANC (manual) 32.76 K/uL (1.4-6.5); Blast # (manual) 0.36 K/uL (0-0); Blast Cells % (manual) 0.9 %; Eosinophils # (manual) 0.68 K/uL (0-0.5); Eosinophils % (manual) 1.7 %; Lymphocytes # (manual) 2.45 K/uL (1.2-3.4); Lymphocytes % (manual) 6.1 %; Monocytes # (manual) 2.81 K/uL (0.11-0.59); Myelocytes # (manual) 1.04 K/uL (0-0); Myelocytes % (manual) 2.6 %; Neutrophils # (manual) 32.76 K/uL (1.4-6.5); Neutrophils % (manual) 81.7 %
--- NOTE | 2020-09-30 06:43 | CT Scan Report ---
CT OF THE HEAD WITHOUT CONTRAST CLINICAL HISTORY: Altered mental status. COMPARISON STUDY: Head CT April 22, 2020. CT DOSE: 614.27 mGy.cm TECHNIQUE: Helical axial images of the head were obtained without IV contrast. Automated exposure con trol was utilized for the study. A dose lowering technique was utilized adhering to the principles o f ALARA. FINDINGS: No acute intracranial hemorrhage, midline shift or mass effect is present. The ventricular system is unremarkable. White matter hypodensities are unchanged and suggest small vessel disease. Th e basal cisterns are patent. No extra-axial collections are present. There are no findings to suggest acute dural sinus thrombosis or acute territorial infarct. No significant calvarial abnormalities ar e present. Visualized portions of the sinuses and mastoid air cells are clear. IMPRESSION: No acute intracranial findings. No significant change in appearance of the brain. ACT 112: Negative or not required by law. Electronically signed by: Constantin Richter M.D. 09/30/2020 6:42 AM
[2020-09-30] MEDS: ENOXAPARIN INJ 60 MG/0.6 ML SYR SQ SCH (06:44)
[2020-09-30] MEDS ORDERED: POTASSIUM PHOSPHATE 21 MMOL in SODIUM CHLORIDE 0.9% 500 ML IV ONE (06:45)
--- NOTE | 2020-09-30 06:45 | Critical Care Consultation ---
Date of Consultation September 30, 2020 Assessment & Plan (1) Admitted to intensive care unit: Reason Critically Ill: 80-year-old female with acute on chronic hypoxic respiratory failure with hypercapnia requiring close monitoring for possible need for definitive airway. Patient with metabolic encephalopathy resulting in altered mental status which appears to be complicating her poor baseline respiratory status. NEURO - * CAM ICU: NEGATIVE * AMS: * Patient with increasing somnolence over the last 24 hours. * Agree with discontinuation of any potential sedative medications. * Likely metabolic encephalopathy which is multifactorial in the setting of bacteremia and likely COPD exacerbation. Would also consider possibility of worsening baseline anemia contributing to current state as well. * Will order imaging of the brain, particularly as patient has recently been on heparin drip. * Patient is certainly somnolent on my exam, however she is able to answer questions appropriately. CARDIAC/VASCULAR - * NSTEMI: * Troponins have trended down appropriately. * EKG w/o significant ST changes to suggest profound ischemia. * Completed heparin gtt * ??Demand in the setting of worsening pulmonary status. ??worsening clot burden as per echo findings of impressive RIGHT sided heart dilation. * ??contribution of acute on chronic anemia to a global ischemia. - Less likely as patient has been in the 7's w/ her Hgb in the past w/o similar issue. * Will add Lactate to assess for possible ischemia in the setting of anemia. * Echo (09/28): EF 55-60%, Severe RA/RV dilation. Moderate to severe tricuspid regurgitation. Severe pulmonary HTN - pulm art pressure >70 mmHg. * Monitor on telemetry. RESPIRATORY - * Acute on chronic hypoxic respiratory failure w/ hypoxia and hypercapnia: * Requiring addition of BiPAP 2/2 development of respiratory acidosis. * Agree w/ BiPAP PRN. * Agree w/ discontinuation of medications w/ risk for sedation. * ABGs to asses ventilation/perfusion with changes to BiPAP settings as needed. * Patient is currently FULL CODE to include endotracheal intubation if need ed. I would be hesitant in the patient to intubate given degree of baseline pulm HTN w/ severe TR and significant chronic clot burden. Additionally, patient w/ terrible emphysematous changes on CT scan. Will ask respiratory to perform regular nebulizer treatments. If symptoms are worsening secondary to her pulmonary hypertension and/or clot burden, I am uncertain of the benefits of intubation as her pulmonary outlook certainly appears grave. As the patient is still somnolent, deferred significant discussion regarding goals of care. Would recommend palliative care consultation if/when the patient is able. Certainly, if the patient has correction of her encephalopathy which subsequently improve her respiratory status/work of breathing, this would be ideal, however, I am concerned that if the somnolence is secondary to her respiratory disease this certainly would make weaning from ventilator much more difficult. Regardless, will continue with ongoing respiratory pulmonary toilet to maximize the patient from a pulmonary standpoint with hopes of staving off need for endotracheal intubation. * Patient currently covered with antibiotics. Would continue at this time. GI/NUTRITION - * Caloric malnutrition * Encourage increased p.o. intake as tolerated. * Prophylaxis: RENAL/LYTES - * DEISY - resolved. * Would be hesitant to provide increasing IVF 2/2 above cardiac concerns. - * No concerns at this time. * Strict I&Os. ENDO - * No h/o DM or Thyroid Dz * BSGs per unit protocol. ISS --> gtt per unit policy. HEME - * MDS: * Currently follows w/ [facility]. * Previous recommendation to hold on transfusion. * Will repeat H&H as patient has recently been on heparin. * Would transfuse if patient <7.0. * This may provide additional benefits to above respiratory/cardiac states. ID - * Gram POSITIVE Bacteremia: * Currently on ceftriaxone and Doxy. * ??Source at this time. * Staph Aureus serology negative. Consider other staph species w/ concern for integumentary sources w/ recent port placement. * Speciation pending. Repeat cultures pending as well. * Will repeat PCT w/ hopes its trending in the right direction. * Thankfully, the patient is w/o s/s severe sepsis at this time. LINES/IV ACCESS - * LEFT port DVT PROPHYLAXIS - * Lovenox * SCDs I have personally spent 45 minutes of critical care time in the direct management of this patient. This is a life/limb threatening event. This includes time spent evaluating patient, direct bedside care, chart review, placing orders, interpretation of diagnostic studies, discussion with consultants, patient, and family members, as well as other required patient management activities. This time is exclusive of all separately billable procedures, and teaching time and separate from and in addition to any other critical care service time. Thank you for allowing us to participate in the care of this patient. Please refer to my attending physician's documentation for any further recommendations. (2) Somnolence: (3) AMS (altered mental status): (4) Acute on chronic respiratory failure with hypoxia and hypercapnia: (5) Acute respiratory acidosis: (6) COPD (chronic obstructive pulmonary disease): (7) Chronic thromboembolic disease: (8) Elevated troponin: (9) Gram-positive bacteremia: (10) MDS (myelodysplastic syndrome): (11) Anemia: (12) Weakness: (13) Pulmonary nodules: (14) Pulmonary emboli: Supervising Physician Co-Signing Physician Notes I saw the patient separately from GARRETT Salgado this morning. Please see separate documentation. History of Present Illness Attending Physician: Desiree Cason DO Patient is an unfortunate 80-year-old female with extensive past medical history including history of breast cancer status post double mastectomy, myelodysplastic syndrome, recent splenic infarct, chronic pulmonary embolism, pulmonary hypertension, recent great toe amputation, amongst others. She was admitted to this facility with initial complaints of shortness of breath and generalized fatigue. She has had Covid testing performed which is been negative on 3 occasions. She was noted to have an elevation of her troponin without EKG changes. She had previously been placed on a heparin drip during this hospitalization which has been completed and transitioned to therapeutic Lovenox. Apparently, the patient has had a history with GI bleeding in the past while on anticoagulants. Patient had been doing well in this day, however over the last 24 hours, the patient has had increasing somnolence and her respiratory status has been relatively tenuous. She had discontinuation of sedative medications and was placed on BiPAP which did seem to correct her respiratory acidosis, however the patient remains somnolent and requiring BiPAP for increasing work of breathing. Upon assessment at bedside, the patient is awake and alert. She tells me her name and location at this facility. She provides the current year. She complains of some mild discomfort at her forehead at the site of the BiPAP mask. She does admit to increasing work of breathing. Otherwise, she offers no complaints. Patient is definitely somnolent on my exam, however. Allergies Allergy/AdvReac Type Severity Reaction Status Date / Time latex Allergy Intermediate HIVES Verified 08/27/20 20:02 nickel Allergy Intermediate Hives/Itchi Verified 08/27/20 20:02 ness shellfish derived Allergy Intermediate Hives Verified 08/27/20 20:02 Iodinated Contrast Media AdvReac Mild Diarrhea Verified 08/27/20 20:02 [Iodinated Contrast- Oral and IV Dye] Lobster Allergy Severe HIVES Uncoded 08/27/20 20:02 Home Medications Medication Instructions Recorded Confirmed Type pantoprazole [Protonix] 40 mg PO BID 06/06/18 09/27/20 History temazepam [Restoril] 30 mg PO HS PRN 06/06/18 09/27/20 History Spiriva with HandiHaler 1 cap INHALATION QAM 12/17/19 09/27/20 History albuterol sulfate 2.5 mg INHALATION Q4H PRN 12/17/19 09/27/20 History albuterol sulfate [Ventolin HFA] 2 puff INHALATION QID PRN 12/17/19 09/27/20 History fluticasone propion-salmeterol 1 inh INHALATION BID 12/17/19 09/27/20 History [Advair Diskus] loperamide 2 mg PO Q4H PRN 12/17/19 09/27/20 History olopatadine 1 drp OPB BID PRN 12/17/19 09/27/20 History trazodone 50 mg PO HS 12/17/19 09/27/20 History acetaminophen [Tylenol] 325 mg PO QID PRN 01/23/20 09/27/20 History bismuth subsalicylate 524 mg PO QID PRN 04/01/20 09/27/20 History [Pepto-Bismol] ondansetron HCl 8 mg PO Q12H PRN 04/01/20 09/27/20 History risedronate [Actonel] 35 mg PO WK 04/01/20 09/27/20 History rizatriptan [Maxalt] 10 mg PO .DAILY/UD PRN 04/01/20 09/27/20 History sucralfate [Carafate] 1 gm PO ACHS 04/01/20 09/27/20 History hydroxyurea 500 mg PO DAILY 04/22/20 09/27/20 History allopurinol 100 mg PO DAILY 06/15/20 09/27/20 History aspirin 81 mg PO DAILY 06/15/20 09/27/20 History bisacodyl 10 mg CA DAILY PRN #30 ea 07/18/20 09/27/20 Rx docusate sodium 100 mg PO BID #30 cap 07/18/20 09/27/20 Rx ferrous gluconate 324 mg PO BIDM #30 tab 07/18/20 09/27/20 Rx multivitamin [Daily-Ted] 1 tab PO QAM #30 tab 07/18/20 09/27/20 Rx anagrelide 1 mg PO DAILY 09/27/20 09/27/20 History levofloxacin 500 mg PO DIRECTED 09/27/20 09/27/20 History prednisone 20 mg PO DIRECTED 09/27/20 09/27/20 History Patient History Medical History Abrasion of great toe, left, infected Amputation of great toe CKD (chronic kidney disease), stage III COPD (chronic obstructive pulmonary disease) Embolic disease of toe History of breast cancer chemo History of MRSA infection "left hip wound" History of peptic ulcer disease IBS (irritable bowel syndrome) Diarrhea predominant ; follows with GI Leukocytosis MDS/MPN (myelodysplastic/myeloproliferative neoplasms) Myelodysplastic syndrome Pelvic fracture 12/2018 pelvic fracture and monitor Poor intravenous access Pulmonary emboli 12/2019 just monitored Pulmonary nodules CT 01/23/20: 5 mm RML 3 mm RML 3 mm DEVEN 4 mm RUL S/P ORIF (open reduction internal fixation) fracture fracture hip x 5 and then had ORIF Subcapsular hemorrhage of spleen Thrombocytosis Surgical History H/O mastectomy modified radical masectomy H/O: hysterectomy History of cholecystectomy Hx of esophagogastroduodenoscopy Status post mastectomy "modified right mastectomy 1990" Status post total hip replacement, left had after ORIF hip Family History Mother Heart disease Social History Smoking Status: Former smoker Tobacco Type: Cigarettes packs per day: 1; Years Smoked: 50; Smoking End Date: 2018; Second Hand Exposure: No; Hx Alcohol Use: Yes Alcohol type: wine Hx Substance Use: No Preferred Language: Faroese Communication Ability: Effective Immigration Law Specialist Required: No Beliefs That Will Affect Care: None marital status: / Current Living Situation: Alone How many Children do You have: 2 Other Information That Helps Us Care for You: No Feels Safe at Home: Yes Safety Concerns: Feels Safe At This Time Assistive Devices: BiPap Review of Systems Review of Systems: A complete 10 point review of systems was reviewed with the patient with pertinent positives and negatives as per history of present illness. All else were negative. Physical Exam Physical Exam: VITAL SIGNS - Vital signs and nursing notes were reviewed. GENERAL - 80-year-old female appearing her stated age who is in mild respiratory distress. HEAD - NC/AT. EYES - PERRL with EOMI bilaterally. Sclera anicteric. EARS - No deformities of external structures noted on gross examination bilaterally. NOSE - Midline and without cyanosis. No epistaxis or purulent drainage noted. MOUTH/OROPHARYNX - Without perioral cyanosis. Buccal mucosa pink and dry. NECK - Neck with FROM. Supple to palpation. LUNGS -patient with increased respiratory effort noted. Diminished breath sounds secondary to poor air movement likely from chronic lung disease. No significant adventitious breath sounds appreciated. CARDIAC - RRR with S1/S2. No murmur, rubs, or gallops appreciated. No reproducible tenderness to palpation appreciated over the anterior chest wall. ABDOMEN - Abdominal contour scaphoid without pulsations or visible masses. BS normoactive all four quadrants. No tenderness, palpable masses, hepatosplenomegaly, or ascites noted. EXTREMITIES - No clubbing or peripheral cyanosis. No pretibial edema present. +3/5 radial pulses palpated throughout. +4/5 strength noted in UE/LE bilaterally. NEUROLOGIC - Cranial nerves II through XII grossly intact. Sensory intact to light touch throughout. PSYCH - A&O to location, time, and condition. Somnolent. Results & Data Results & Data ([facility]) Vital Signs (Past 12 Hours) Vital Signs Temp Pulse Pulse Resp BP Pulse Ox Pulse Ox 09/30/20 04:14 36.6 C 118 H 24 158/90 H 90 09/30/20 02:26 114 H 24 94 09/30/20 02:17 110 H 09/30/20 01:06 111 H 18 95 09/30/20 00:15 36.9 C 109 H 16 126/68 96 09/29/20 23:00 96 09/29/20 22:22 109 H 23 93 09/29/20 19:13 37 C 111 H 15 115/67 96 Coding Level of Care Code Critical Care 1st 30-74 mins Diagnoses Admitted to intensive care unit Z78.9 Somnolence R40.0 AMS (altered mental status) R41.82 Acute on chronic respiratory failure with hypoxia and hypercapnia J96.21; J96.22 Acute respiratory acidosis E87.2 COPD (chronic obstructive pulmonary disease) J44.9 COPD type: unspecified COPD Chronic thromboembolic disease I74.9 Elevated troponin R77.8 Gram-positive bacteremia R78.81 MDS (myelodysplastic syndrome) D46.9 Anemia D64.9 Anemia type: unspecified type Weakness R53.1 Pulmonary nodules R91.8 Pulmonary emboli I26.99 Time Spent (min) 45 (1) Anemia Anemia type: unspecified type Qualified Code(s): D64.9 - Anemia, unspecified (2) COPD (chronic obstructive pulmonary disease) COPD type: unspecified COPD Qualified Code(s): J44.9 - Chronic obstructive pulmonary disease, unspecified
--- NOTE | 2020-09-30 07:25 | CT Scan Report ---
CT chest diagnostic wo con CLINICAL HISTORY: Shortness of breath COMPARISON STUDY: 09/27/2020 CT DOSE: 280.39 mGy.cm TECHNIQUE: CT of the thorax was performed from the thoracic inlet to the lung bases. Images are revi ewed in the axial, sagittal, and coronal planes. IV contrast was not administered for this examinatio n. A dose lowering technique was utilized adhering to the principles of ALARA. FINDINGS: Thyroid: Imaged portions of the thyroid gland are normal in appearance. Thoracic aorta: The thoracic aorta is normal in course and caliber, noting standard 3 vessel arch selam chuck. Heart: There are coronary artery calcifications. There is no significant pericardial effusion. Lungs and pleural spaces: There are small bilateral pleural effusions. There is severe pulmonary emph ysema. There is a 1 cm calcific density within the right bronchus intermedius. This may represent asp irated pill fragment. Deep tendon airspace opacities are likely atelectatic. There are 3 solid subcen timeter right lung pulmonary nodules measuring up to 5 mm in diameter. These remain unchanged. Mediastinum: There is a mildly enlarged precarinal lymph node measuring 11 mm in short axis. Kylee: There are calcified left hilar lymph nodes likely postinflammatory Axilla: There is no evidence of pathologic axillary lymphadenopathy Upper abdomen: Is hypodense splenic lesions likely represent infarcts. Skeletal structures: There is a calcified right breast implant. There are postsurgical changes of a p rior left mastectomy. There is a left-sided A-Port catheter present. There is a lower thoracic compre ssion deformities similar to the prior study IMPRESSION: 1. Severe pulmonary emphysema similar to the prior study 2. Small bilateral pleural effusions with bibasilar opacities likely atelectatic 3. New 1 cm calcific filling defect within the right bronchus intermedius likely representing an aspi rated pill fragment. This finding was not described in the pulmonary report, and will therefore be ca lled to the floor. Pulmonary consultation is recommended. ACT 112: Negative or not required by law. Electronically signed by: Sher Lira M.D. 09/30/2020 7:24 AM
[2020-09-30 07:41] LABS: iSTAT Allen Test Pass; iSTAT Art Bld Gas pCO2 Correct 40 mmHg (35-46); iSTAT Art Bld Gas pH Corrected 7.345 (7.35-7.45); iSTAT Arterial Blood Gas HCO3 22 meg/L (19-24); iSTAT Arterial Blood Gas pCO2 40 mmHg (35-46); iSTAT Arterial Blood Gas pH 7.35 (7.35-7.45); iSTAT Arterial Blood Gas pO2 63 mmHg (80-95); iSTAT Arterial Blood Gas pO2 C 63; iSTAT Carbon Dioxide 23 mmol/L (24-31); iSTAT FiO2 30 %; iSTAT Hematocrit 25 % (37-47); iSTAT Hemoglobin 8.5 g/dl (12.0-16.0); iSTAT Potassium 3.8 mmol/L (3.3-5.0); iSTAT Site L Radial; iSTAT Sodium 146 mmol/L (135-144)
[2020-09-30 07:41] LABS: iSTAT Allen Test Pass; iSTAT Art Bld Gas pCO2 Correct 46 mmHg (35-46); iSTAT Art Bld Gas pH Corrected 7.302 (7.35-7.45); iSTAT Arterial Blood Gas HCO3 23 meg/L (19-24); iSTAT Arterial Blood Gas pCO2 46 mmHg (35-46); iSTAT Arterial Blood Gas pO2 42 mmHg (80-95); iSTAT Arterial Blood Gas pO2 C 42; iSTAT Carbon Dioxide 24 mmol/L (24-31); iSTAT FiO2 30 %; iSTAT Hematocrit 28 % (37-47); iSTAT Hemoglobin 9.5 g/dl (12.0-16.0); iSTAT Potassium 3.8 mmol/L (3.3-5.0); iSTAT Site L Radial; iSTAT Sodium 146 mmol/L (135-144)
--- NOTE | 2020-09-30 08:59 | Communication Note ---
Date of Service: September 30, 2020 I had a long discussion with the patient's daughter over the phone. I updated her about the situation. Patient has acute on chronic hypoxemic and hypercapnic respiratory failure. She appears to have a foreign body lodged in her bronchus intermedius based on the CT chest report. She is a very high risk patient to undergo bronchoscopy. I am concerned that she might have a sudden cardiac arrest or respiratory failure event with the anesthesia used for the bronchoscopy. She has a history of cor pulmonale related to her very severe COPD. We are going to have palliative care see the patient. I am allowing patient's daughter to come visit the patient this afternoon and we will reconvene to decide about other we are going to pursue aggressive measures such as bronchoscopy to retrieve the foreign body. We have changed the patient's CODE STATUS to a DNR/DNI per the daughter's request. Notably, on her last discharge for [facility] on July 18, was recommended the patient be discharged [facility]. The patient refused at that time. She has been in the emergency department on several different occasions since that period of time. She is currently being treated for bacteremia. She is on Rocephin and doxycycline. MRSA screen from the nares is pending. MRSA screen from the blood was negative. Continue Lovenox for history of chronic pulmonary embolism. She also has thrombocytosis related to her myelodysplastic syndrome. She is very frail and cachectic. Overall prognosis is extremely poor. Coding Level of Care Code Critical Care leslie addt'l 30 min Time Spent (min) 30 Comment total critical care time since midnight is 75 min
[2020-09-30] MEDS ORDERED: PANTOprazole 40 MG in SYRINGE 0 ML IV SCH (09:15)
[2020-09-30] MEDS ORDERED: METOPROLOL TARTRATE 1 MG/ML VIAL IV ONE (09:15)
[2020-09-30] MEDS ORDERED: STAT IV Infusion **Titration per Protocol STA ×2 (09:30→20:39)
[2020-09-30] MEDS: FLUTICASONE/VILANTEROL 200/25MCG 14 PUFFS/INHALER INH SCH (09:46)
[2020-09-30] MEDS: PANTOprazole 40 MG TAB PO SCH (09:46)
[2020-09-30] MEDS: UMECLIDINIUM BROMIDE 62.5MCG/BLISTER 7 PUFFS/INHALER INH SCH (09:46)
[2020-09-30] MEDS: METOPROLOL TARTRATE 25 MG TAB PO SCH (09:46)
[2020-09-30] MEDS: DEXMEDETOMIDINE HCL 200 MCG in SODIUM CHLORIDE 0.9% 48 ML IV SCH ×2 (09:55→15:54)
[2020-09-30] MEDS ORDERED: methylPREDNISolone 40 MG in SYRINGE 0 ML IV SCH (10:00)
--- NOTE | 2020-09-30 10:20 | Cardiology Progress Note ---
Date of Service September 30, 2020 Assessment & Plan (1) Chronic thromboembolic disease: (2) Hypercoagulable state: Patient with longstanding history of myelodysplastic syndrome, hypercoagulable state, with severe right ventricular chamber dilatation, severe RV systolic dysfunction, pulmonary hypertension (cor pulmonale) physiology likely due to chronic thromboembolic hypertension, with past evidence of pulmonary embolism, not anticoagulated due to bleeding issues. Patient has had multiple recent hospital stays. She has now aspirated, and has a pill fragment in the right bronchus intermedius. Case discussed with of pulmonary critical care who expressed concerns that she is not a candidate for sedation for bronchoscopy given severe RV dysfunction, tenuous respiratory status. I am in agreement with this assessment. As noted yesterday my progress note, she is very ill, and palliative care approach may be most reasonable given poor prognosis multiple problems. Family reportedly coming to see her. Admission and Anticipated Discharge Date Admission Date: September 27, 2020 Subjective Patient seen in follow-up of right ventricular dysfunction, severe pulmonary hypertension. She was transferred to the first floor intensive care unit last evening for somnolence, respiratory distress, and is now on BiPAP. Concerns of aspiration arose yesterday and a CT of the chest has revealed severe pulmonary emphysema, small bilateral pleural effusions, and a medication pill fragment within the right bronchus intermedius. Sinus tachycardia 120 bpm is present on telemetry. Physical Exam Physical Exam: Temp Pulse Resp BP Pulse Ox 36.6 C 118 H 27 H 109/96 93 09/30/20 04:14 09/30/20 09:23 09/30/20 07:25 09/30/20 09:23 09/30/20 07:25 Constitutional: Chronically ill in appearance Cardiovascular: Rate/Rhythm: + tachycardic Extremities: no edema Results & Data ([facility]) Vital Signs (Past 12 Hours) Vital Signs Temp Pulse Pulse Resp BP BP Pulse Ox 09/30/20 09:23 118 H 109/96 09/30/20 07:37 102 H 09/30/20 07:25 102 H 27 H 93 09/30/20 05:32 115 H 115 H 22 95 09/30/20 05:10 117 H 145/79 H 93 09/30/20 05:09 09/30/20 04:14 36.6 C 118 H 24 158/90 H 90 09/30/20 02:26 114 H 24 94 09/30/20 02:17 110 H 09/30/20 01:06 111 H 18 95 09/30/20 00:15 36.9 C 109 H 16 126/68 96 09/29/20 23:00 09/29/20 22:22 109 H 23 93 Pulse Ox 09/30/20 09:23 09/30/20 07:37 09/30/20 07:25 09/30/20 05:32 09/30/20 05:10 09/30/20 05:09 93 09/30/20 04:14 09/30/20 02:26 09/30/20 02:17 09/30/20 01:06 09/30/20 00:15 09/29/20 23:00 96 09/29/20 22:22 Laboratory Results Cardiac Enzymes 09/30/20 Range/Units 05:06 AST 12 L (15-37) U/L Troponin I 0.087 H* (0-0.045) ng/ml Coagulation 09/30/20 Range/Units 05:06 APTT 42.9 H (21.0-31.0) Seconds CBC 09/30/20 Range/Units 05:06 WBC 40.10 H* (4.8-10.8) K/uL RBC 2.60 L (4.2-5.4) M/uL Hgb 7.6 L (12.0-16.0) g/dL Hct 25.3 L (37-47) % Plt Count 751 H (130-400) K/uL Comprehensive Metabolic Panel 09/30/20 Range/Units 05:06 Sodium 147 H (136-145) mmol/L Potassium 3.6 (3.5-5.1) mmol/L Chloride 120 H (98-107) mmol/L Carbon Dioxide 25 (21-32) mmol/L BUN 29 H (7-18) mg/dl Creatinine 0.83 D (0.6-1.2) mg/dl Glucose 105 H (70-99) mg/dl Calcium 8.0 L (8.5-10.1) mg/dl Direct Bilirubin 0.2 (0-0.2) mg/dl AST 12 L (15-37) U/L ALT 43 (12-78) U/L Alkaline Phosphatase 72 (45-117) U/L Total Protein 5.6 L (6.4-8.2) gm/dl Albumin 2.9 L (3.4-5.0) gm/dl Intake and Output 09/29/20 09/30/20 09/30/20 22:59 06:59 14:59 Intake Total 689.117 / 1706.367 630.667 / 1706.367 Output Total 300 / 625 Balance 389.117 / 1081.367 630.667 / 1081.367 Intake: IV 639.117 / 1656.367 630.667 / 1656.367 D5w 500 ml @ 80 mls/hr IV . 500 / 970.667 470.667 / 970.667 Q6H15M SHORTY Rx#:[id number] Vibramycin 100 mg In D5 100 ml 110 / 130 @ 50 mls/hr IV Q12H SHORTY Rx#: [id number] HEPARIN SODIUM/DEXTROSE 25,000 139.117 / 304.867 units In 500 ml @ 850 UNITS/HR 17 mls/hr IV .Q24H SHORTY Rx#: [id number] Rocephin 1,000 mg In D5w 50 ml 50 / 50 @ 100 mls/hr IV Q24H SHORTY Rx#: [id number] Oral 50 / 50 Output: Urine 300 / 625 Other: # Unmeasured Voids 0
--- NOTE | 2020-09-30 10:26 | Palliative Care Consultation ---
Date of Consultation September 30, 2020 Assessment & Plan (1) Dyspnea: with acute on chronic respiratory failure. She is currently on precedex which is being titrated for her comfort. (2) Anxiety: Monitor on precedex. Soothing music and staff at bedside with her. (3) Palliative care encounter: Dr. Salamanca spoke with her daughter, Abbey, earlier today and Abbey expressed that she would want her mother to be DNR. Abbie is aware that she is approaching her . I reassured her that we will do everything possible for her to be comfortable. Her daughter is coming to see her shortly. Abbie ind icates that she also has a son, but shook her head no when I asked if she would like me to call him. Palliative care will follow to assist with support and comfort. Abbie is resting more comfortably with precedex and her daughter is at bedside. I met with Abbey and reviewed plan of care. She would like to proceed with comfort directed care. We will stop all noncomfort medications and add morphine for dyspnea and pain with glycopyrrolate for secretions. I discussed what to expect with Abbey. (4) Acute on chronic respiratory failure with hypoxia and hypercapnia: (5) Chronic thromboembolic disease: (6) Myelodysplastic syndrome: (7) COPD (chronic obstructive pulmonary disease): COPD type: unspecified COPD Qualified Code(s): J44.9 - Chronic obstructive pulmonary disease, unspecified History of Present Illness Reason for Consultation: goals of care Requesting Physician: Dr. Cason Attending Physician: Rebecca Andres MD History of Present Illness 80 yo lady with COPD, severe pulmonary hypertension with cor pulmonale and h/o PE. She also has myelodysplastic syndrome with thrombocytosis. She was admitted with fever and hypoxic, hypercapnic respiratory failure. She is found to have aspirated one of her medications with a pill in her bronchus. Unfortunately, she is not a candidate for bronchoscopy. She is very restless and short of breath. When I sat down with her, her first question was "Am I dying". We discussed honestly that her prognosis is poor that we are concerned that she is approaching her dying time. Allergies Allergy/AdvReac Type Severity Reaction Status Date / Time latex Allergy Intermediate HIVES Verified 08/27/20 20:02 nickel Allergy Intermediate Hives/Itchi Verified 08/27/20 20:02 ness shellfish derived Allergy Intermediate Hives Verified 08/27/20 20:02 Iodinated Contrast Media AdvReac Mild Diarrhea Verified 08/27/20 20:02 [Iodinated Contrast- Oral and IV Dye] Lobster Allergy Severe HIVES Uncoded 08/27/20 20:02 Home Medications Medication Instructions Recorded Confirmed Type pantoprazole [Protonix] 40 mg PO BID 06/06/18 09/27/20 History temazepam [Restoril] 30 mg PO HS PRN 06/06/18 09/27/20 History Spiriva with HandiHaler 1 cap INHALATION QAM 12/17/19 09/27/20 History albuterol sulfate 2.5 mg INHALATION Q4H PRN 12/17/19 09/27/20 History albuterol sulfate [Ventolin HFA] 2 puff INHALATION QID PRN 12/17/19 09/27/20 History fluticasone propion-salmeterol 1 inh INHALATION BID 12/17/19 09/27/20 History [Advair Diskus] loperamide 2 mg PO Q4H PRN 12/17/19 09/27/20 History olopatadine 1 drp OPB BID PRN 12/17/19 09/27/20 History trazodone 50 mg PO HS 12/17/19 09/27/20 History acetaminophen [Tylenol] 325 mg PO QID PRN 01/23/20 09/27/20 History bismuth subsalicylate 524 mg PO QID PRN 04/01/20 09/27/20 History [Pepto-Bismol] ondansetron HCl 8 mg PO Q12H PRN 04/01/20 09/27/20 History risedronate [Actonel] 35 mg PO WK 04/01/20 09/27/20 History rizatriptan [Maxalt] 10 mg PO .DAILY/UD PRN 04/01/20 09/27/20 History sucralfate [Carafate] 1 gm PO ACHS 04/01/20 09/27/20 History hydroxyurea 500 mg PO DAILY 04/22/20 09/27/20 History allopurinol 100 mg PO DAILY 06/15/20 09/27/20 History aspirin 81 mg PO DAILY 06/15/20 09/27/20 History bisacodyl 10 mg ND DAILY PRN #30 ea 07/18/20 09/27/20 Rx docusate sodium 100 mg PO BID #30 cap 07/18/20 09/27/20 Rx ferrous gluconate 324 mg PO BIDM #30 tab 07/18/20 09/27/20 Rx multivitamin [Daily-Ted] 1 tab PO QAM #30 tab 07/18/20 09/27/20 Rx anagrelide 1 mg PO DAILY 09/27/20 09/27/20 History levofloxacin 500 mg PO DIRECTED 09/27/20 09/27/20 History prednisone 20 mg PO DIRECTED 09/27/20 09/27/20 History Patient History Medical History Abrasion of great toe, left, infected Amputation of great toe CKD (chronic kidney disease), stage III COPD (chronic obstructive pulmonary disease) Embolic disease of toe History of breast cancer chemo History of MRSA infection "left hip wound" History of peptic ulcer disease IBS (irritable bowel syndrome) Diarrhea predominant ; follows with GI Leukocytosis MDS/MPN (myelodysplastic/myeloproliferative neoplasms) Myelodysplastic syndrome Pelvic fracture 12/2018 pelvic fracture and monitor Poor intravenous access Pulmonary emboli 12/2019 just monitored Pulmonary nodules CT 01/23/20: 5 mm RML 3 mm RML 3 mm DEVEN 4 mm RUL S/P ORIF (open reduction internal fixation) fracture fracture hip x 5 and then had ORIF Subcapsular hemorrhage of spleen Thrombocytosis Surgical History H/O mastectomy modified radical masectomy H/O: hysterectomy History of cholecystectomy Hx of esophagogastroduodenoscopy Status post mastectomy "modified right mastectomy 1990" Status post total hip replacement, left had after ORIF hip Family History Mother Heart disease Social History Smoking Status: Former smoker Tobacco Type: Cigarettes packs per day: 1; Years Smoked: 50; Smoking End Date: 2018; Second Hand Exposure: No; Hx Alcohol Use: Yes Alcohol type: wine Hx Substance Use: No Preferred Language: Swedish Communication Ability: Effective 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: No Beliefs That Will Affect Care: None marital status: / Current Living Situation: Alone How many Children do You have: 2 Other Information That Helps Us Care for You: No Feels Safe at Home: Yes Safety Concerns: Feels Safe At This Time Assistive Devices: Oxygen - Continuous Review of Systems Review of Systems: Limited due to patient distress [place] Symptom Assessment Scale Pain 2/3 Dyspnea 3/3 Nausea 0/3 Drowsiness 1/3 Palliative Performance Score 30% Physical Exam Constitutional: + frail appearing and + in distress ENMT: Mouth: + dry oral mucous membranes Respiratory: + labored breathing, + uses accessory muscles and + cough on bipap Cardiovascular: Rate/Rhythm: + tachycardic Gastrointestinal (Abdomen): Inspection/Auscultation: abdomen not distended Musculoskeletal: Extremities: + muscle atrophy Skin: warm and dry Neurologic: moves all extremities Psychiatric: Affect: + anxious affect Results & Data ([facility]) Vital Signs (Past 12 Hours) Vital Signs Temp Pulse Pulse Resp BP BP Pulse Ox 09/30/20 09:23 118 H 109/96 09/30/20 07:37 102 H 09/30/20 07:25 102 H 27 H 93 09/30/20 05:32 115 H 115 H 22 95 09/30/20 05:10 117 H 145/79 H 93 09/30/20 05:09 09/30/20 04:14 97.9 F 118 H 24 158/90 H 90 09/30/20 02:26 114 H 24 94 09/30/20 02:17 110 H 09/30/20 01:06 111 H 18 95 09/30/20 00:15 98.4 F 109 H 16 126/68 96 09/29/20 23:00 Pulse Ox 09/30/20 09:23 09/30/20 07:37 09/30/20 07:25 09/30/20 05:32 09/30/20 05:10 09/30/20 05:09 93 09/30/20 04:14 09/30/20 02:26 09/30/20 02:17 09/30/20 01:06 09/30/20 00:15 09/29/20 23:00 96 PG Care Time/CCT Total # of Minutes Spent Total Time Spent with Patient: Total time spent is greater than 50% in coordination of care (as documented) at patient's floor/unit and/or counseling patient: Total time spent 90 minutes with more than 50% of time spent on symp tenisha management, family communication and support, goals of care and coordination with ICU attending and RN. Coding Level of Care Code 71233 Inpt Consult Level 5 Diagnoses Dyspnea R06.00 Anxiety F41.9 Palliative care encounter Z51.5 Acute on chronic respiratory failure with hypoxia and hypercapnia J96.21; J96.22 Chronic thromboembolic disease I74.9 Myelodysplastic syndrome D46.9 COPD (chronic obstructive pulmonary disease) J44.9 COPD type: unspecified COPD
[2020-09-30] MEDS ORDERED: GLYCOPYRROLATE 0.2 MG/ML VIAL IV PRN (11:47)
[2020-09-30] MEDS: MoRPHine SULFATE 2 MG/ML CARP IV PRN ×4 (12:11→20:05)
[2020-09-30] MEDS: LORazepam 0.5 MG/1 ML VIAL IV PRN (16:29)
--- NOTE | 2020-09-30 18:36 | Hospitalist Progress Note ---
Date of Service September 30, 2020 Assessment & Plan (1) Acute respiratory acidosis: (2) Chronic thromboembolic disease: (3) Elevated troponin: (4) Gram-positive bacteremia: (5) Flu-like symptoms: (6) MDS (myelodysplastic syndrome): (7) Anemia: (8) Acute hyperkalemia: (9) Hypercoagulable state: Present on admission with flu like symptoms such as productive cough, running nose, weakness and bodyache Become somnolence during the course of admission possible due to CO2 retention CT chest showed New 1 cm calcific filling defect within the right bronchus intermedius likely representing an aspirated pill fragment. Covid 19 negative Was placed on BIPAP due to respiratory failure Palliative and critical care team discussed with daughter in detail Dr. Salamanca concerned that she is not a candidate for sedation for bronchoscopy given severe RV dysfunction, tenuous respiratory status. She is a very high risk patient to undergo bronchoscopy critical care team was concerned about sudden cardiac arrest or respiratory failure event with the anesthesia used for the bronchoscopy. Daughter made her comfort care only Daughter understood that we would d/c all meds except comfort meds only Ok for daughter to come to visit her since pt is comfort care Will d/c precedex and starts on morphine drip for comfort care and ativan prn CODE status DNR /Comfort care only Admission and Anticipated Discharge Date Admission Date: September 27, 2020 Subjective Pt was seem and examined Lying in bed comfortable with daughter at bedside Pt was mad comfort care only When i called her name, she was able to move her eyebrow Physical Exam Physical Exam: General-comfortable Head- atraumatic Eyes- PERRL, EOMI, ENT- oropharynx clear Neck- supple, no JVD Lungs- diminished BS Heart- regular Abdomen- normal bowel sounds, soft Neuro- resting comfortable Results & Data Results & Data ([facility]) Vital Signs (Past 12 Hours) Vital Signs Temp Pulse Resp BP Pulse Ox 09/30/20 11:24 109 H 28 H 96 09/30/20 09:59 103 H 150/88 H 95 09/30/20 09:23 118 H 109/96 09/30/20 08:59 118 H 109/96 89 L 09/30/20 08:00 37.0 C 09/30/20 07:59 107 H 144/76 H 92 09/30/20 07:37 102 H 09/30/20 07:25 102 H 27 H 93 (1) Anemia Anemia type: unspecified type Qualified Code(s): D64.9 - Anemia, unspecified
[2020-09-30] MEDS ORDERED: MoRPHine SULF/NSS 250 MG/250 ML BTL IV SCH (20:39)
[2020-09-30] MEDS ORDERED: METOPROLOL TARTRATE 1 MG/ML VIAL IV SCH (21:00)
[2020-10-01] MEDS: LORazepam 0.5 MG/1 ML VIAL IV PRN ×2 (11:09→23:14)
--- NOTE | 2020-10-01 11:59 | Palliative Care Progress Note ---
Date of Service October 01, 2020 Assessment & Plan (1) Palliative care encounter: Comfort care. Talked with her daughter about what to expect. She is likely to within the next few days. We discussed possibility of home with hospice but her daughter does not feel comfortable taking care of her at home. (2) Dyspnea: Controlled with morphine infusion. (3) Anxiety: Ativan as needed. She is much less anxious today. (4) Acute on chronic respiratory failure with hypoxia and hypercapnia: Admission and Anticipated Discharge Date Admission Date: September 27, 2020 Subjective Off precedex and moved to floor. Now on morphine infusion. She is awake and denies pain or dyspnea. Daughter is at bedside. Review of Systems Review of Systems: [place] Symptom Assessment Scale Pain 0/3 Dyspnea 0/3 Nausea 0/3 Anxiety 0/3 Drowsiness 1/3 Palliative Performance Score 30% Physical Exam Constitutional: + frail appearing; no acute distress ENMT: Mouth: + dry oral mucous membranes Respiratory: normal respiratory effort; no labored breathing Cardiovascular: Extremities: no edema no mottling Musculoskeletal: Extremities: + muscle atrophy toe amputations Skin: cool, no diaphoresis PG Care Time/CCT Total # of Minutes Spent Total Time Spent with Patient: Total time spent is greater than 50% in coordination of care (as documented) at patient's floor/unit and/or counseling patient: Total time spent 30 minutes with more than 50% of time spent on family support, symptom management Coding Level of Care Code 68179 Subseq Hosp Care Lvl 2 Diagnoses Palliative care encounter Z51.5 Dyspnea R06.00 Anxiety F41.9 Acute on chronic respiratory failure with hypoxia and hypercapnia J96.21; J96.22
[2020-10-01] MEDS ORDERED: SODIUM CHLORIDE 0.9% 500 ML IV SCH (18:30)
--- NOTE | 2020-10-01 18:46 | Hospitalist Progress Note ---
Date of Service October 01, 2020 Assessment & Plan (1) Acute respiratory acidosis: (2) Chronic thromboembolic disease: (3) Elevated troponin: (4) Gram-positive bacteremia: (5) Flu-like symptoms: (6) MDS (myelodysplastic syndrome): (7) Anemia: (8) Acute hyperkalemia: (9) Hypercoagulable state: Present on admission with flu like symptoms such as productive cough, running nose, weakness and bodyache Become somnolence during the course of admission possible due to CO2 retention CT chest showed New 1 cm calcific filling defect within the right bronchus intermedius likely representing an aspirated pill fragment. Covid 19 negative Was placed on BIPAP due to respiratory failure Palliative and critical care team discussed with daughter in detail Dr. Salamanca concerned that she is not a candidate for sedation for bronchoscopy given severe RV dysfunction, tenuous respiratory status. She is a very high risk patient to undergo bronchoscopy critical care team was concerned about sudden cardiac arrest or respiratory failure event with the anesthesia used for the bronchoscopy. Daughter made her comfort care only Daughter understood that we would d/c all meds except comfort meds only Daughter said that family members are calling her and asked her questions. She said that she felt guilty and she wanted to hear from her mother about goals of care and wishes Morphine drip to be placed on hold as per daughter continue with the morphine push IV and ativan for comfort care Will add gentle fluid hydration CODE status DNR /Comfort care only Admission and Anticipated Discharge Date Admission Date: September 27, 2020 Subjective Pt was seen and examined with daughter at bedside. She looks comfortable in bed Continue to be on morphine drip. Daughter feels guilty because she made her comfort care She said that family members are calling her and asked her questions. She said that she wanted to hear from her mother about goals of care and wishes She would like morphine drip to be placed on hold that her mother can be a little be more awake, but she agreed to continue with the morphine push IV and ativan for telecommunications professional She also would like her to be on a gentle fluid hydration Physical Exam Physical Exam: General-comfortable Head- atraumatic Eyes- PERRL, EOMI, ENT- oropharynx clear Neck- supple, no JVD Lungs- diminished BS Heart- +tachycardia Abdomen- normal bowel sounds, soft Neuro- resting comfortable
--- NOTE | 2020-10-02 02:32 | Communication Note ---
Date of Service: October 02, 2020 Patient daughter (Ms. Abbey Rand) requesting for reversal of comfort measures for now. Patient a little more awake although still confused after discontinuation of morphine drip. Some pressure from patient son to reverse initial decision for comfort measures. Patient daughter agreeable to medical management for presumptive COPD exacerbation from aspiration pneumonia for now. Patient daughter understands need for cautious narcotic use given patient's tenuous respiratory status. DNR status to be maintained as per discussion with patient's daughter.
[2020-10-02] MEDS ORDERED: XOPENEX/ATROVENT 1.25mg/0.5MG NEB COMBO NEB STA (02:33)
[2020-10-02] MEDS ORDERED: AMPICILLIN/SULBACTAM SOD 3,000 MG in 0.9 % SODIUM CHLORIDE 100 ML IV STA (02:33)
[2020-10-02] MEDS ORDERED: ACETAMINOPHEN 325 MG TAB PO PRN (02:38)
[2020-10-02] MEDS ORDERED: traMADol HCL 50 MG TABLET PO PRN (02:38)
[2020-10-02] MEDS ORDERED: IPRATROPIUM BROMIDE NEB SOLN 0.02% 2.5 ML VIAL INH STA (02:39)
[2020-10-02] MEDS ORDERED: methylPREDNISolone 40 MG in SYRINGE 0 ML IV STA (02:39)
[2020-10-02] MEDS ORDERED: LEVALBUTEROL 1.25MG/0.5ML NEB INH STA (02:40)
[2020-10-02 03:20] LABS: Base Excess ABG -1.8 mEq/L (-9-1.8); HCO3 ABG 24 mmol/L (19-24); PCO2 ABG 44 mmHg (35-46); PO2 ABG 77 mmHg (80-95); pH ABG 7.35 (7.35-7.45)
[2020-10-02 03:22] LABS: Allen Test POS (Pos)
[2020-10-02 03:29] LABS: Partial Thromboplastin Ratio 1.1; Partial Thromboplastin Time 31.3 Seconds (21.0-31.0)
[2020-10-02 03:35] LABS: BUN Creatinine Ratio 39.3 (10-20); Calcium 8.4 mg/dl (8.5-10.1); Creatinine Clr Calc Pharmacy 53.8 ml/min; Est GFR (African American) 98.6; Magnesium 2.3 mg/dl (1.8-2.4); Potassium 4.1 mmol/L (3.5-5.1)
[2020-10-02] MEDS ORDERED: D5W AND 1/2NSS 1,000 ML IV ONE (03:39)
[2020-10-02 04:12] LABS: Hematocrit (blood only) 26.9 % (37-47); Mean Corpuscular Hemoglobin 29.1 pg (25-34); Mean Corpuscular Hgb Conc 29.7 g/dL (32-36); Mean Corpuscular Volume 97.8 fL (80-100); Mean Platelet Volume 13.3 fL (7.4-10.4); Nucleated RBC # (auto) 0.79 K/uL (0-0); Nucleated RBC % (auto) 2.2 %; Platelet Count 721 K/uL (130-400); Red Blood Count 2.75 M/uL (4.2-5.4); White Blood Count 36.75 K/uL (4.8-10.8)
[2020-10-02 04:13] LABS: Anisocytosis Present; Basophilic Stippling 1+; Basophils # (auto) 0.22 K/uL (0-0.2); Basophils % (auto) 0.6 %; Eosinophils # (auto) 0.22 K/uL (0-0.5); Eosinophils % (auto) 0.6 %; Hypochromasia Present; Immature Granulocytes # (auto) 2.61 K/uL (0.00-0.02); Immature Granulocytes % (auto) 7.1 %; Lymphocytes # (auto) 2.09 K/uL (1.2-3.4); Lymphocytes % (auto) 5.7 %; Monocytes # (auto) 3.31 K/uL (0.11-0.59); Polychromasia 1+
[2020-10-02] MEDS ORDERED: AMPICILLIN/SULBACTAM CONSULT ACTIVE PRN (04:20)
[2020-10-02] MEDS ORDERED: HEPARIN SOD 5,000 UNIT/0.5 ML VIAL SQ SCH (06:00)
[2020-10-02] MEDS ORDERED: XOPENEX/ATROVENT 1.25mg/0.5MG NEB COMBO NEB SCH (07:00)
[2020-10-02] MEDS ORDERED: LEVALBUTEROL 1.25MG/0.5ML NEB INH SCH (07:00)
[2020-10-02] MEDS ORDERED: IPRATROPIUM BROMIDE NEB SOLN 0.02% 2.5 ML VIAL INH SCH (07:00)
--- NOTE | 2020-10-02 07:24 | XRay Report ---
SINGLE VIEW CHEST CLINICAL HISTORY: Hypoxia. FINDINGS: An AP, portable, upright chest radiograph is compared to study dated 09/27/2020 and correlat ed with chest CT dated 09/30/2020. The examination is degraded by portable technique and patient rotat ion. A left-sided central venous infusion port is new from previous. The heart is top normal for proj ection noting atherosclerotic calcification of the thoracic aorta. There are calcified mediastinal an d hilar lymph nodes. Advanced emphysema and chronic interstitial thickening is similar to previous. T here is no airspace consolidation typical for pneumonia. Small pleural effusions are identified. No p neumothorax is seen. The skeletal structures are osteopenic. The bony thorax is grossly intact. A ryan cified breast implant projects over the right chest. Surgical clips are noted in the right axilla. IMPRESSION: 1. Advanced emphysema. 2. There are small pleural effusions. 3. No airspace consolidation is seen typical for pneumonia. ACT 112: Negative or not required by law. Electronically signed by: Ezio Darden M.D. 10/02/2020 7:23 AM
[2020-10-02] MEDS ORDERED: AMPICILLIN/SULBACTAM SOD 3,000 MG in 0.9 % SODIUM CHLORIDE 100 ML IV SCH (10:00)
[2020-10-02] MEDS ORDERED: LORazepam 0.5 MG/1 ML VIAL IV PRN (12:29)
--- NOTE | 2020-10-02 12:43 | Palliative Care Progress Note ---
Date of Service October 02, 2020 Assessment & Plan (1) Dyspnea: With change in status to comfort care, resume IV morphine prn pain or shortness of breath (2) Anxiety: Resume lorazepam 0.5mg IV prn (3) Palliative care encounter: Abbie had a difficult night last night with a verbal disagreement between family members. Due to concerns from other family members, including her son, comfort measures were held last night. I spoke with Abbie this morning multiple times to clarify her goals. Though she is nonverbal, she answers yes/no questions appropriately on more than one discussion this morning. She indicates recall of our discussion in the ICU before starting comfort directed care. She recalls the events of last night. She nods when asked if she should be wearing her oxygen right now and points to where it is. We discussed importance of understanding her wishes and making sure that her care is consistent with her wishes. I asked her about someone to make decisions for her if she is unable to do that. She indicated that she would want Abbey to make medical decisions if she were unable to. Shu, her RN was present for this discussion. I also asked her about what she wanted for her care and if she wanted us to continue comfort care. She nodded yes. Based on her responses, I believe that she is capable of making this decision. This was reviewed with Dr. Andres who agrees . Per her wishes, we will resume comfort directed care. I did speak with Abbey on the phone. She will coordinate with supervisors on the floor regarding visitation with her mother. (4) Acute on chronic respiratory failure with hypoxia and hypercapnia: Admission and Anticipated Discharge Date Admission Date: September 27, 2020 Subjective Awake. Answers questions with nodding and shaking her head. Nods when asked if short of breath. Shakes her head when asked if she's having pain. She has been restless in bed. Review of Systems Review of Systems: [place] Symptom Assessment Scale Pain 0/3 Dyspnea 2/3 Nausea 0/3 Anxiety 2/3 Drowsiness 0/3 Palliative Performance Score 20% Physical Exam Constitutional: + cachectic and + frail appearing non verbal ENMT: Mouth: + dry oral mucous membranes Respiratory: + labored breathing and + uses accessory muscles Cardiovascular: Extremities: no edema Gastrointestinal (Abdomen): Inspection/Auscultation: abdomen not distended Musculoskeletal: Extremities: + muscle atrophy Skin: warm and dry Neurologic: awake; not confused Results & Data ([facility]) Vital Signs (Past 12 Hours) Vital Signs Temp Pulse Resp BP Pulse Ox 10/02/20 08:39 24 92 10/02/20 08:14 96 H 21 90 10/02/20 07:19 97.7 F 93 H 22 153/79 H 90 10/02/20 03:18 101 H 22 96 PG Care Time/CCT Total # of Minutes Spent Total Time Spent with Patient: Total time spent is greater than 50% in coordination of care (as documented) at patient's floor/unit and/or counseling patient: Total time spent 75 minutes with more than 50% of time spent on symptom management, goals of care, surrogate decision maker, coordination of care with RN, attending physician and family Coding Level of Care Code 88248 Subseq Hosp Care Lvl 3 Diagnoses Dyspnea R06.00 Anxiety F41.9 Palliative care encounter Z51.5 Acute on chronic respiratory failure with hypoxia and hypercapnia J96.21; J96.22 Time Spent (min) 75
[2020-10-02] MEDS: MoRPHine SULFATE 2 MG/ML CARP IV PRN ×5 (12:51→21:39)
--- NOTE | 2020-10-02 19:33 | Hospitalist Progress Note ---
Date of Service October 02, 2020 Assessment & Plan (1) Acute respiratory acidosis: (2) Chronic thromboembolic disease: (3) Elevated troponin: (4) Gram-positive bacteremia: (5) Flu-like symptoms: (6) MDS (myelodysplastic syndrome): (7) Anemia: (8) Acute hyperkalemia: (9) Hypercoagulable state: Present on admission with flu like symptoms such as productive cough, running nose, weakness and bodyache Become somnolence during the course of admission possible due to CO2 retention CT chest showed New 1 cm calcific filling defect within the right bronchus intermedius likely representing an aspirated pill fragment. Covid 19 negative Was placed on BIPAP due to respiratory failure Palliative and critical care team discussed with daughter in detail Dr. Salamanca concerned that she is not a candidate for sedation for bronchoscopy given severe RV dysfunction, tenuous respiratory status. She is a very high risk patient to undergo bronchoscopy critical care team was concerned about sudden cardiac arrest or respiratory failure event with the anesthesia used for the bronchoscopy. Daughter made her comfort care only Daughter understood that we would d/c all meds except comfort meds only Daughter said that family members are calling her and asked her questions. She said that she felt guilty and she wanted to hear from her mother about goals of care and wishes Morphine drip to be placed on hold as per daughter continue with the morphine push IV and ativan for comfort care 10/02/20 Pt comfort care was discontinued last night after Son put pressure on her daughter Pt met with palliative care team today and wanted to transition to comfort care only palliative care discussed with daughter and antibiotic was discontinued Ativan and Morphine added back for comfort care only If SOB worsening, will consider to add morphine drip CODE status DNR /Comfort care only Admission and Anticipated Discharge Date Admission Date: September 27, 2020 Subjective Pt was seen and examined for follow up on comfort care Comfort care was discontinued last night due to family dynamic Pt was seen today by palliative care and was transition to comfort care after palliative care team spoke to patient and daughter Pt was able to nod her head o a yes when i asked her in the afternoon if she wants to be made comfort care She appointed her daughter to make decision for her according to her wishes She wants me to tell her daughter and sister to make peace with each other She would like me to stay at her bedside but i told her that i would come back since I have to transfer a patient Physical Exam Physical Exam: General-comfortable Head- atraumatic Eyes- PERRL, EOMI, ENT- oropharynx clear Neck- supple, no JVD Lungs- diminished BS Heart- +tachycardia Abdomen- normal bowel sounds, soft Neuro- resting comfortable Results & Data Results & Data ([facility]) Vital Signs (Past 12 Hours) Vital Signs Pulse Resp Pulse Ox 10/02/20 08:39 24 92 10/02/20 08:14 96 H 21 90
[2020-10-02] MEDS: LORazepam 0.5 MG/1 ML VIAL IV PRN (22:47)
[2020-10-03] MEDS: MoRPHine SULFATE 2 MG/ML CARP IV PRN ×4 (03:51→19:14)
[2020-10-03] MEDS: LORazepam 0.5 MG/1 ML VIAL IV PRN ×2 (04:07→11:18)
[2020-10-03 08:43] LABS: Creatinine Clr Calc Pharmacy 56.4 ml/min; Est GFR (African American) 100.1; Est GFR (Non-African American) 86.4
[2020-10-03] MEDS ORDERED: predniSONE 20 MG TAB PO SCH (09:00)
[2020-10-03] MEDS ORDERED: guaiFENesin SUGAR FREE 100 MG/5 ML UDC PO PRN (12:24)
--- NOTE | 2020-10-03 16:47 | Hospitalist Progress Note ---
Date of Service October 03, 2020 Assessment & Plan (1) Acute respiratory acidosis: (2) Chronic thromboembolic disease: (3) Elevated troponin: (4) Gram-positive bacteremia: (5) Flu-like symptoms: (6) MDS (myelodysplastic syndrome): (7) Anemia: (8) Acute hyperkalemia: (9) Hypercoagulable state: Present on admission with flu like symptoms such as productive cough, running nose, weakness and bodyache Become somnolence during the course of admission possible due to CO2 retention CT chest showed New 1 cm calcific filling defect within the right bronchus intermedius likely representing an aspirated pill fragment. Covid 19 negative Was placed on BIPAP due to respiratory failure Palliative and critical care team discussed with daughter in detail Dr. Salamanca concerned that she is not a candidate for sedation for bronchoscopy given severe RV dysfunction, tenuous respiratory status. She is a very high risk patient to undergo bronchoscopy critical care team was concerned about sudden cardiac arrest or respiratory failure event with the anesthesia used for the bronchoscopy. Daughter made her comfort care only Daughter understood that we would d/c all meds except comfort meds only Daughter said that family members are calling her and asked her questions. She said that she felt guilty and she wanted to hear from her mother about goals of care and wishes Morphine drip to be placed on hold as per daughter continue with the morphine push IV and ativan for comfort care 10/03/20 Pt was made comfort care again yesterday Looks comfortable in bed Continue IV morphine and ativan prn If SOB worsening, will consider to add morphine drip Guaifenesin and albuterol ihn added prn CODE status DNR /Comfort care only Admission and Anticipated Discharge Date Admission Date: September 27, 2020 Subjective Pt was seen and examined for follow up on comfort care Lying in bed comfortable with daughter at bedside Daughter said that she can hear some phlegm in his throat Denies any complaints Physical Exam Physical Exam: General-comfortable Head- atraumatic Eyes- PERRL, EOMI, ENT- oropharynx clear Neck- supple, no JVD Lungs- diminished BS Heart- +tachycardia Abdomen- normal bowel sounds, soft Neuro- resting comfortable
[2020-10-03] MEDS: ALBUTEROL 0.083% NEBU SOLN 3 ML VIAL NEB PRN (20:45)
[2020-10-03] MEDS ORDERED: MoRPHine SULFATE 4 MG/ML 1 ML CARP\\VIAL IV PRN (21:56)
[2020-10-03] MEDS ORDERED: STAT IV Infusion **Titration per Protocol STA (21:57)
[2020-10-03] MEDS: MoRPHine SULF/NSS 250 MG/250 ML BTL IV SCH (23:09)
[2020-10-04] MEDS: LORazepam 1 MG/2 ML VIAL IV PRN (09:33)
--- NOTE | 2020-10-04 15:22 | Hospitalist Progress Note ---
Date of Service October 04, 2020 Assessment & Plan (1) Acute respiratory acidosis: (2) Chronic thromboembolic disease: (3) Elevated troponin: (4) Gram-positive bacteremia: (5) Flu-like symptoms: (6) MDS (myelodysplastic syndrome): (7) Anemia: (8) Acute hyperkalemia: (9) Hypercoagulable state: Present on admission with flu like symptoms such as productive cough, running nose, weakness and bodyache Become somnolence during the course of admission possible due to CO2 retention CT chest showed New 1 cm calcific filling defect within the right bronchus intermedius likely representing an aspirated pill fragment. Covid 19 negative Was placed on BIPAP due to respiratory failure Palliative and critical care team discussed with daughter in detail Dr. Salamanca concerned that she is not a candidate for sedation for bronchoscopy given severe RV dysfunction, tenuous respiratory status. She is a very high risk patient to undergo bronchoscopy critical care team was concerned about sudden cardiac arrest or respiratory failure event with the anesthesia used for the bronchoscopy. Daughter made her comfort care only Daughter understood that we would d/c all meds except comfort meds only Daughter said that family members are calling her and asked her questions. She said that she felt guilty and she wanted to hear from her mother about goals of care and wishes Morphine drip to be placed on hold as per daughter continue with the morphine push IV and ativan for comfort care 10/04/20 Continue comfort care only Looks comfortable in bed Pt was starting on IV Morphine drip Continue IV morphine and ativan prn Continue Guaifenesin and albuterol prn CODE status DNR /Comfort care only Admission and Anticipated Discharge Date Admission Date: September 27, 2020 Subjective Pt was seen and examined for follow up on comfort care Lying in bed with no distress and comfortable Pt said that she feels OK She was placed on IV morphine drip last night Denies any new complaint Physical Exam Physical Exam: General-comfortable Head- atraumatic Eyes- PERRL, EOMI, ENT- oropharynx clear Neck- supple, no JVD Lungs- diminished BS Heart- regular Abdomen- normal bowel sounds, soft Neuro- resting comfortable
[2020-10-05] MEDS ORDERED: MoRPHine SULFATE 2 MG/ML CARP IV PRN (15:50)
--- NOTE | 2020-10-05 16:02 | Palliative Care Progress Note ---
Date of Service October 05, 2020 Assessment & Plan (1) Dyspnea: Improved. Will titrate down on morphine infusion. (2) Anxiety: She has chronic anxiety which has been exacerbated by her recent illness. Her biggest worry is what will happen if she gets short of breath again. Reviewed medications available and plan for air hunger. (3) Palliative care encounter: Abbie is more able to discuss goals of care at this time. She recalls being in the ICU and says that she would not want to go through that again. She confirms that goal is comfort directed care. She confirms that her daughter, Abbey, is her surrogate decision maker. We discussed the next step from here as she seems to be at a plateau. She would not want prison placement but is very afraid of what would happen at home if she got short of breath. We discussed having hospice support at home. She is unsure. Called Abbey to discuss but she is at work and not able to answer. They will discuss together and palliative care will f/u tomorrow. (4) Acute on chronic respiratory failure with hypoxia and hypercapnia: Admission and Anticipated Discharge Date Admission Date: September 27, 2020 Subjective Much more alert today. Reports feeling comfortable. Has been on morphine infusion. Denies pain or shortness of breath. Review of Systems Review of Systems: [place] Symptom Assessment Scale Pain 0/3 Dyspnea 0/3 Nausea 0/3 Anxiety 1/3 Fatigue 2/3 Palliative Performance Score 30% Physical Exam Constitutional: + frail appearing; no acute distress ENMT: temporal wasting Respiratory: no labored breathing and does not use accessory muscles Cardiovascular: Extremities: no edema Gastrointestinal (Abdomen): Percussion/Palpation: abdomen nontender Musculoskeletal: Extremities: + muscle atrophy Neurologic: awake; no focal motor deficits Psychiatric: Orientation: alert, oriented to person and oriented to place Results & Data ([facility]) Vital Signs (Past 12 Hours) Vital Signs Temp Pulse Resp BP Pulse Ox 10/05/20 14:51 97.3 F L 72 16 116/70 96 10/05/20 08:14 97.7 F 84 16 120/73 97 PG Care Time/CCT Total # of Minutes Spent Total Time Spent with Patient: Total time spent is greater than 50% in coordination of care (as documented) at patient's floor/unit and/or counseling patient: Total time spent 35 minutes with more than 50% of time spent on goals of care, surrogate decision maker and coordination of care. Coding Level of Care Code 59006 Subseq Hosp Care Lvl 3 Diagnoses Dyspnea R06.00 Anxiety F41.9 Palliative care encounter Z51.5 Acute on chronic respiratory failure with hypoxia and hypercapnia J96.21; J96.22
--- NOTE | 2020-10-05 17:46 | Hospitalist Progress Note ---
Date of Service October 05, 2020 Assessment & Plan (1) Acute respiratory acidosis: (2) Chronic thromboembolic disease: (3) Elevated troponin: (4) Gram-positive bacteremia: (5) Flu-like symptoms: (6) MDS (myelodysplastic syndrome): (7) Anemia: (8) Acute hyperkalemia: (9) Hypercoagulable state: Present on admission with flu like symptoms such as productive cough, running nose, weakness and bodyache Become somnolence during the course of admission possible due to CO2 retention CT chest showed New 1 cm calcific filling defect within the right bronchus intermedius likely representing an aspirated pill fragment. Covid 19 negative Was placed on BIPAP due to respiratory failure Palliative and critical care team discussed with daughter in detail Dr. Salamanca concerned that she is not a candidate for sedation for bronchoscopy given severe RV dysfunction, tenuous respiratory status. She is a very high risk patient to undergo bronchoscopy critical care team was concerned about sudden cardiac arrest or respiratory failure event with the anesthesia used for the bronchoscopy. Daughter made her comfort care only Daughter understood that we would d/c all meds except comfort meds only Daughter said that family members are calling her and asked her questions. She said that she felt guilty and she wanted to hear from her mother about goals of care and wishes Morphine drip to be placed on hold as per daughter continue with the morphine push IV and ativan for comfort care 10/05/20 Continue comfort care only Looks comfortable in bed IV morphine drip titrate down Continue IV ativan prn Continue Guaifenesin and albuterol prn CODE status DNR /Comfort care only Admission and Anticipated Discharge Date Admission Date: September 27, 2020 Subjective Pt was seen and examined for follow up on comfort care Lying in bed with no distress, watching TV comfortable Pt said that she would like to eat some ice cream Spoke to her about limiting visitation from the daughter she said that she is ok for the daughter to visit her as long as daughter wants to Spoke to palliative and case management about disposition such as outpatient hospice at home or correction Palliative saw her today and patient wa not sure about next step yet in term of discharge Denies any new complaint Physical Exam Physical Exam: General-comfortable Head- atraumatic Eyes- PERRL, EOMI, ENT- oropharynx clear Neck- supple, no JVD Lungs- diminished BS Heart- regular Abdomen- normal bowel sounds, soft Neuro- resting comfortable Results & Data Results & Data ([facility]) Vital Signs (Past 12 Hours) Vital Signs Temp Pulse Resp BP Pulse Ox 10/05/20 14:51 36.3 C L 72 16 116/70 96 10/05/20 08:14 36.5 C 84 16 120/73 97
[2020-10-06] MEDS ORDERED: diphenhydrAMINE 50 MG/ML VIAL IV PRN (07:53)
--- NOTE | 2020-10-06 13:57 | Palliative Care Progress Note ---
Date of Service October 06, 2020 Assessment & Plan (1) Dyspnea: She has not been short of breath on morphine infusion. Continue to taper with prn IV morphine available as needed. Will convert to oral regimen (2) Anxiety: Partially related to dyspnea. She has been less anxious in recent days. (3) Palliative care encounter: She has been comfort measures only and is stable at this time. Discussed plan of care. Neither she or her daughter are interested in NH placement. Abbey would like to take her home. We discussed hospice support at home and Abbey is comfortable with this. Abbey has arranged for round the clock caregiver support. Discussed with RN, mattress spring encaser and Dr. Andres. (4) Acute on chronic respiratory failure with hypoxia and hypercapnia: (5) Non-ST elevated myocardial infarction (non-STEMI): (6) MDS (myelodysplastic syndrome): Admission and Anticipated Discharge Date Admission Date: September 27, 2020 Subjective Resting comfortably. Alert. Review of Systems Review of Systems: [place] Symptom Assessment Scale Pain 0/3 Dyspnea 1/3 Nausea 0/3 Anxiety 1/3 Palliative Performance Score 30% Physical Exam Constitutional: + thin and + frail appearing ENMT: temporal wasting Respiratory: normal respiratory effort; no labored breathing Musculoskeletal: Extremities: + muscle atrophy Skin: warm and dry Results & Data ([facility]) Vital Signs (Past 12 Hours) Vital Signs Temp Pulse Resp BP Pulse Ox 10/06/20 08:30 97.3 F L 90 16 127/66 93 PG Care Time/CCT Total # of Minutes Spent Total Time Spent with Patient: Total time spent is greater than 50% in coordination of care (as documented) at patient's floor/unit and/or counseling patient: Total time spent 35 min with more than 50% of time spent on symptom management, plan of care, family support, coordination of care. Coding Level of Care Code 58505 Subseq Hosp Care Lvl 3 Diagnoses Dyspnea R06.00 Anxiety F41.9 Palliative care encounter Z51.5 Acute on chronic respiratory failure with hypoxia and hypercapnia J96.21; J96.22 Non-ST elevated myocardial infarction (non-STEMI) I21.4 MDS (myelodysplastic syndrome) D46.9
--- NOTE | 2020-10-06 17:54 | Hospitalist Progress Note ---
Date of Service October 06, 2020 Assessment & Plan (1) Acute respiratory acidosis: (2) Chronic thromboembolic disease: (3) Elevated troponin: (4) Gram-positive bacteremia: (5) Flu-like symptoms: (6) MDS (myelodysplastic syndrome): (7) Anemia: (8) Acute hyperkalemia: (9) Hypercoagulable state: Present on admission with flu like symptoms such as productive cough, running nose, weakness and bodyache Become somnolence during the course of admission possible due to CO2 retention CT chest showed New 1 cm calcific filling defect within the right bronchus intermedius likely representing an aspirated pill fragment. Covid 19 negative Was placed on BIPAP due to respiratory failure Palliative and critical care team discussed with daughter in detail Dr. Salamanca concerned that she is not a candidate for sedation for bronchoscopy given severe RV dysfunction, tenuous respiratory status. She is a very high risk patient to undergo bronchoscopy critical care team was concerned about sudden cardiac arrest or respiratory failure event with the anesthesia used for the bronchoscopy. Daughter made her comfort care only Daughter understood that we would d/c all meds except comfort meds only Daughter said that family members are calling her and asked her questions. She said that she felt guilty and she wanted to hear from her mother about goals of care and wishes Morphine drip to be placed on hold as per daughter continue with the morphine push IV and ativan for comfort care 10/06/20 Continue comfort care only Looks comfortable in bed Continue to titrate IV morphine drip to transition to po as per palliative care Continue IV ativan prn Continue Guaifenesin and albuterol prn Daughter is comfortable to take her home for home hospice referral placed by case management for outpatient hospice CODE status DNR /Comfort care only Admission and Anticipated Discharge Date Admission Date: September 27, 2020 Subjective Pt was seen and examined for follow up on comfort care Lying in bed with no distress, watching TV comfortable Son was at bedside and pt was happy today and smiled She is not interested to go to a retirement for hospice care Denies any new complaint Physical Exam Physical Exam: General-comfortable Head- atraumatic Eyes- PERRL, EOMI, ENT- oropharynx clear Neck- supple, no JVD Lungs- diminished BS Heart- regular Abdomen- normal bowel sounds, soft Neuro- resting comfortable Results & Data Results & Data ([facility]) Vital Signs (Past 12 Hours) Vital Signs Temp Pulse Resp BP Pulse Ox 10/06/20 16:26 36.6 C 92 H 16 121/62 95 10/06/20 08:30 36.3 C L 90 16 127/66 93
[2020-10-06] MEDS: LORazepam 1 MG/2 ML VIAL IV PRN (20:41)
[2020-10-07] MEDS ORDERED: Nursing to Pharmacy Communication SCH (06:30)
--- NOTE | 2020-10-07 09:33 | Hospitalist Progress Note ---
Date of Service October 07, 2020 Assessment & Plan (1) Acute respiratory acidosis: (2) Chronic thromboembolic disease: (3) Elevated troponin: (4) Gram-positive bacteremia: (5) Flu-like symptoms: (6) MDS (myelodysplastic syndrome): (7) Anemia: (8) Acute hyperkalemia: (9) Hypercoagulable state: Present on admission with flu like symptoms such as productive cough, running nose, weakness and bodyache Became somnolence during the course of admission possible due to CO2 retention CT chest showed New 1 cm calcific filling defect within the right bronchus intermedius likely representing an aspirated pill fragment. Covid 19 negative Was placed on BIPAP due to respiratory failure Palliative and critical care team discussed with daughter in detail Dr. Salamanca concerned that she is not a candidate for sedation for bronchoscopy given severe RV dysfunction, tenuous respiratory status. She is a very high risk patient to undergo bronchoscopy critical care team was concerned about sudden cardiac arrest or respiratory failure event with the anesthesia used for the bronchoscopy. Daughter made her comfort care only Daughter understood that we would d/c all meds except comfort meds only Daughter said that family members are calling her and asked her questions. She said that she felt guilty and she wanted to hear from her mother about goals of care and wishes Morphine drip to be placed on hold as per daughter continue with the morphine push IV and ativan for comfort care 10/05/20 Continue comfort care only Looks comfortable in bed Continue to titrate IV morphine drip to transition to po as per palliative care Continue IV ativan prn Continue Guaifenesin and albuterol prn Daughter is comfortable to take her home for home hospice referral placed by case management for outpatient hospice CODE status DNR /Comfort care only Plan for home hospice today Admission and Anticipated Discharge Date Admission Date: September 27, 2020 Subjective Pt was seen and examined for follow up on comfort care Lying in bed with no distress, comfortable Denies any new complaint Plan for home hospice today Review of Systems Review of Systems: All systems reviewed & are unremarkable except as noted in HPI & below Physical Exam Physical Exam: General-comfortable Head- atraumatic Eyes- PERRL, EOMI, ENT- oropharynx clear Neck- supple, no JVD Lungs- diminished BS Heart- regular Abdomen- normal bowel sounds, soft Neuro- resting comfortable Results & Data Results & Data ([facility]) Vital Signs (Past 12 Hours) Vital Signs Temp Pulse Resp BP Pulse Ox 10/06/20 22:49 37.2 C 94 H 20 149/75 H 92 Medications Administered Current Inpatient Medications Acetaminophen (Acetaminophen 325 Mg Tab) 650 mg PO Q6H PRN PRN Reason: Fever Stop: 11/01/20 02:37 Albuterol (Albuterol 0.083% Nebu Soln 3 Ml Vial) 2.5 mg NEB Q12R PRN PRN Reason: Wheezing Stop: 11/02/20 12:23 Last Admin: 10/03/20 20:45 Dose: 2.5 mg Documented by: Diphenhydramine HCl (Diphenhydramine 50 Mg/Ml Vial) 12.5 mg IV Q8H PRN PRN Reason: Itching Stop: 11/05/20 07:52 Last Admin: 10/06/20 08:11 Dose: 12.5 mg Documented by: Guaifenesin (Guaifenesin Sugar Free 100 Mg/5 Ml Udc) 100 mg PO Q6H PRN PRN Reason: Cough Stop: 11/02/20 12:23 Heparin Sodium (Porcine) (Heparin 100 Unit/Ml 5ml Flush 5 Ml Syr) 5 ml IV PRN PRN PRN Reason: Flush Stop: 11/06/20 06:29 Last Admin: 10/07/20 06:34 Dose: 5 ml Documented by: Lorazepam (Ativan) 1 mg in 2 mls @ 0.5 mls/min IV Q15M PRN PRN Reason: Anxiety/Agitation Stop: 11/02/20 21:56 Last Admin: 10/06/20 20:41 Dose: 0.5 mls/min Documented by: Morphine Sulfate (Morphine Sulf/Nss) 250 mg in 250 mls @ 1 mls/hr IV .Q96H SHORTY; Protocol Stop: 10/17/20 21:59 Last Titration: 10/07/20 06:18 Dose: Infused Documented by: Morphine Sulfate (Morphine Sulfate 2 Mg/Ml Carp) 2 mg IV Q1H PRN PRN Reason: Pain or dyspnea Stop: 10/17/20 21:55 Phenol (Chloraseptic 1.4% Soln 180 Ml Btl) 2 sprays MT Q4H PRN PRN Reason: sore throat Stop: 10/28/20 17:59 Last Admin: 09/28/20 21:12 Dose: 2 sprays Documented by:
[2020-10-07] MEDS ORDERED: MoRPHine SULFATE 5 MG/0.25 ML UDP PO PRN (10:44)
[2020-10-07] MEDS: ALBUTEROL 0.083% NEBU SOLN 3 ML VIAL NEB PRN (11:46)
--- NOTE | 2020-10-07 13:16 | Palliative Care Progress Note ---
Date of Service October 07, 2020 Assessment & Plan (1) Dyspnea: Currently comfortable off morphine infusion. Discussed with Dr. Umana. I would recommend that she go home with prn roxanol 5mg every four hours as needed for pain or dyspnea. She will continue on O2 at home (2) Anxiety: Currently controlled. I suspect that this will continue to improve when she is home. (3) Palliative care encounter: Anticipate discharge home today with hospice care. (4) Acute on chronic respiratory failure with hypoxia and hypercapnia: Admission and Anticipated Discharge Date Admission Date: September 27, 2020 Subjective More drowsy today. Denies pain or shortness of breath. Reports that she's ready to go home. She's been off morphine infusion with no prn morphine use. Review of Systems Review of Systems: [place] Symptom Assessment Scale Pain 0/3 Dyspnea 0/3 Nausea 0/3 Anorexia 2/3 Anxiety 0/3 Drowsiness 1/3 Palliative Performance Score 30% Physical Exam Constitutional: + frail appearing; no acute distress ENMT: Mouth: + dry oral mucous membranes Respiratory: no labored breathing Cardiovascular: Extremities: no edema Gastrointestinal (Abdomen): Percussion/Palpation: abdomen nontender Neurologic: no focal motor deficits drowsy Results & Data ([facility]) Vital Signs (Past 12 Hours) Vital Signs Pulse Resp Pulse Ox 10/07/20 11:49 104 H 18 94 10/07/20 11:38 96 PG Care Time/CCT Total # of Minutes Spent Total Time Spent with Patient: Total time spent is greater than 50% in coordination of care (as documented) at patient's floor/unit and/or counseling patient: Coding Level of Care Code 62814 Subseq Hosp Care Lvl 2 Diagnoses Dyspnea R06.00 Anxiety F41.9 Palliative care encounter Z51.5 Acute on chronic respiratory failure with hypoxia and hypercapnia J96.21; J96.22
[2020-10-07] MEDS: MoRPHine SULF/NSS 250 MG/250 ML BTL IV SCH (23:21)
--- NOTE | 2020-10-08 08:24 | Hospitalist Progress Note ---
Date of Service October 08, 2020 Assessment & Plan (1) Acute respiratory acidosis: (2) Chronic thromboembolic disease: (3) Elevated troponin: (4) Gram-positive bacteremia: (5) Flu-like symptoms: (6) MDS (myelodysplastic syndrome): (7) Anemia: (8) Acute hyperkalemia: (9) Hypercoagulable state: Present on admission with flu like symptoms such as productive cough, running nose, weakness and bodyache Became somnolent during the course of admission possible due to CO2 retention CT chest showed New 1 cm calcific filling defect within the right bronchus intermedius likely representing an aspirated pill fragment. Covid 19 negative Was placed on BIPAP due to respiratory failure Palliative and critical care team discussed with daughter in detail Dr. Salamanca concerned that she is not a candidate for sedation for bronchoscopy given severe RV dysfunction, tenuous respiratory status. She is a very high risk patient to undergo bronchoscopy critical care team was concerned about sudden cardiac arrest or respiratory failure event with the anesthesia used for the bronchoscopy. Daughter made her comfort care only Daughter understood that we would d/c all meds except comfort meds only continued with the morphine push IV and ativan for comfort care 10/06/20 Continue comfort care only Looks comfortable in bed Continue to titrate IV morphine drip to transition to po as per palliative care Continue IV ativan prn Continue Guaifenesin and albuterol prn Daughter is comfortable to take her home for home hospice referral placed by case management for outpatient hospice 10/07/2020 Dr. Lord from palliative medicine following, transitioned pt from IV morphine to PO CODE status DNR /Comfort care only Plan to dc home w/ hospice today Admission and Anticipated Discharge Date Admission Date: September 27, 2020 Subjective Pt was seen and examined for follow up on comfort care Lying in bed with no distress, comfortable, but feeling anxious about dc Denies any new complaint Plan for home hospice today Review of Systems Review of Systems: All systems reviewed & are unremarkable except as noted in HPI & below Constitutional: no fever and no chills Respiratory: no cough and no dyspnea Cardiovascular: no chest pain and no palpitations Gastrointestinal: no abdominal pain, no nausea and no vomiting Physical Exam Physical Exam: General-comfortable Head- atraumatic Eyes- PERRL, EOMI, ENT- oropharynx clear Neck- supple, no JVD Lungs- diminished BS Heart- regular Abdomen- normal bowel sounds, soft Neuro- resting comfortable Results & Data Results & Data ([facility]) Medications Administered Current Inpatient Medications Acetaminophen (Acetaminophen 325 Mg Tab) 650 mg PO Q6H PRN PRN Reason: Fever Stop: 11/01/20 02:37 Albuterol (Albuterol 0.083% Nebu Soln 3 Ml Vial) 2.5 mg NEB Q12R PRN PRN Reason: Wheezing Stop: 11/02/20 12:23 Last Admin: 10/07/20 11:46 Dose: 2.5 mg Documented by: Diphenhydramine HCl (Diphenhydramine 50 Mg/Ml Vial) 12.5 mg IV Q8H PRN PRN Reason: Itching Stop: 11/05/20 07:52 Last Admin: 10/06/20 08:11 Dose: 12.5 mg Documented by: Guaifenesin (Guaifenesin Sugar Free 100 Mg/5 Ml Udc) 100 mg PO Q6H PRN PRN Reason: Cough Stop: 11/02/20 12:23 Heparin Sodium (Porcine) (Heparin 100 Unit/Ml 5ml Flush 5 Ml Syr) 5 ml IV PRN PRN PRN Reason: Flush Stop: 11/06/20 06:29 Last Admin: 10/07/20 06:34 Dose: 5 ml Documented by: Lorazepam (Ativan) 1 mg in 2 mls @ 0.5 mls/min IV Q15M PRN PRN Reason: Anxiety/Agitation Stop: 11/02/20 21:56 Last Admin: 10/06/20 20:41 Dose: 0.5 mls/min Documented by: Morphine Sulfate (Morphine Sulf/Nss) 250 mg in 250 mls @ 1 mls/hr IV .Q96H [facility]; Protocol Stop: 10/17/20 21:59 Last Admin: 10/07/20 23:21 Dose: Not Given Documented by: Morphine Sulfate (Morphine Sulfate 5 Mg/0.25 Ml Udp) 5 mg PO Q2H PRN PRN Reason: Pain or shortness of breath Stop: 10/21/20 10:43 Last Admin: 10/07/20 11:30 Dose: 5 mg Documented by: Phenol (Chloraseptic 1.4% Soln 180 Ml Btl) 2 sprays MT Q4H PRN PRN Reason: sore throat Stop: 10/28/20 17:59 Last Admin: 09/28/20 21:12 Dose: 2 sprays Documented by:
[2020-10-08] MEDS ORDERED: LORazepam 0.5 MG TAB SL PRN (09:32)
[2020-10-08] MEDS ORDERED: LOPERAMIDE HCL 2 MG CAP PO STA (10:43)
--- NOTE | 2020-10-08 11:06 | Discharge Summary ---
Date of Service October 08, 2020 Admission HPI Per Admitting Provider This is a 80-year-old female with past medical history significant for COPD, multiple pulmonary nodules, chronic diastolic CHF, chronic kidney disease stage III, history of pulmonary embolism, history of severe pulmonary hypertension, peripheral vascular disease, severe protein-calorie malnutrition, history of chronic diarrhea, GERD, history of peptic ulcer disease, osteoporosis, anemia of chronic kidney disease stage III, thrombocytosis, myelodysplastic syndrome, history of subcapsular hemorrhage of spleen, depression, cachexia, personal history of breast cancer, history of prolonged QT, status post A-port. Patient lives alone, ambulates with a walker. She has caregiver from 9am-5pm five days a week and daughter also live close by. The patient comes here because of on and off fever for the last 9 days, some runny nose, 9 days of cough with yellowish and greenish phlegm and getting short of breath, feeling generalized body aches and weakness. This prompted her to come to the ER. She was tested COVID negative 3 days ago, in the ER also COVID test came negative and also influenza and RSV negative. Troponin slightly bumped at 0.19 and some EKG changes and potassium of 6.3. Creatinine is 2. Currently denies any diarrhea. Feeling nauseous, poor appetite. Denies any chest pain. Has chronic headaches. No blurred vision, no double vision, no earache, no sore throat, no loss of sense of smell or taste. No vomiting. Normal bladder movements. Denies any blood in the stools or black stools. Denies any hematuria. Denies any epistaxis. Hemodynamics are stable. Admission Exam Per Admitting Provider GENERAL: The patient is thin and frail, not in acute distress. VITAL SIGNS: Temperature 36.5, pulse 102, respiratory rate 18, blood pressure 126/81, oxygen 94% on 2 liters. HEENT: No pallor, no icterus. Oral mucosa moist. NECK: No JVD. No neck masses. CARDIOVASCULAR: S1, S2 heard, regular rate and rhythm, no murmur, no gallop. A-port seen on the left side chest. RESPIRATORY SYSTEM: Normal AP diameter. No accessory muscle use. No wheezing, no crackles. ABDOMEN: Soft, bowel sounds present, nontender. No distention. CENTRAL NERVOUS SYSTEM: Cranial nerves II-XII grossly intact. Nonfocal. EXTREMITIES: No edema, no erythema. Principal Diagnosis Acute respiratory acidosis Acute resp. failure w/ hypoxia and hypercapnia Aspiration Chronic thromboembolic disease Hypercoagulable state Elevated troponin Gram-positive bacteremia Flu-like symptoms MDS (myelodysplastic syndrome) Discharge Exam General- thin frail elderly female sitting up in bed, in NAD, comfortable Head- atraumatic Eyes- PERRL, EOMI, ENT- oropharynx clear Neck- supple, no JVD Lungs- diminished BS Heart- regular Abdomen- normal bowel sounds, soft Neuro- resting comfortable Discharge Data Allergies Allergy/AdvReac Type Severity Reaction Status Date / Time latex Allergy Intermediate HIVES Verified 08/27/20 20:02 nickel Allergy Intermediate Hives/Itchi Verified 08/27/20 20:02 ness shellfish derived Allergy Intermediate Hives Verified 08/27/20 20:02 Iodinated Contrast Media AdvReac Mild Diarrhea Verified 08/27/20 20:02 [Iodinated Contrast- Oral and IV Dye] Lobster Allergy Severe HIVES Uncoded 08/27/20 20:02 Consultations 09/27/20 19:20 ED Decision to Admit Stat 09/27/20 23:18 Consult Case Management - Discharge Planning Routine 09/28/20 08:00 Consult Cardiology Routine Consult Hematology Routine Consult Nephrology Routine 09/29/20 12:33 Consult Infectious Diseases Routine 09/29/20 16:10 Consult Palliative Care Routine 09/30/20 04:49 Consult Book Store Associate Routine Ordered Studies 09/27/20 21:38 CT chest diagnostic wo con Urgent IMPRESSION: 1. Severe emphysema with mild dependent bibasilar atelectasis. There is left lower lobe mucous plugging with asymmetric consolidative opacities. Correlate clinically to exclude pneumonitis. 2. Trace pleural effusions. 3. Numerous splenic infarcts redemonstrated with progressive splenic atrophy. 4. Additional findings as above. 09/30/20 04:16 CT head/brain wo con Urgent IMPRESSION: No acute intracranial findings. No significant change in appearance of the brain. 09/30/20 04:27 CT chest diagnostic wo con Urgent IMPRESSION: 1. Severe pulmonary emphysema similar to the prior study 2. Small bilateral pleural effusions with bibasilar opacities likely atelectatic 3. New 1 cm calcific filling defect within the right bronchus intermedius likely representing an aspirated pill fragment. This finding was not described in the pulmonary report, and will therefore be called to the floor. Pulmonary consultation is recommended. Hospital Course (1) Acute respiratory acidosis: (2) Chronic thromboembolic disease: (3) Elevated troponin: (4) Gram-positive bacteremia: (5) Flu-like symptoms: (6) MDS (myelodysplastic syndrome): (7) Anemia: (8) Acute hyperkalemia: (9) Hypercoagulable state: Present on admission with flu like symptoms such as productive cough, running nose, weakness and bodyache Became somnolent during the course of admission possible due to CO2 retention CT chest showed New 1 cm calcific filling defect within the right bronchus intermedius likely representing an aspirated pill fragment. Covid 19 negative Was placed on BIPAP due to respiratory failure Palliative and critical care team discussed with daughter in detail Dr. Salamanca concerned that she is not a candidate for sedation for bronchoscopy given severe RV dysfunction, tenuous respiratory status. She is a very high risk patient to undergo bronchoscopy critical care team was concerned about sudden cardiac arrest or respiratory failure event with the anesthesia used for the bronchoscopy. Daughter made her comfort care only Daughter understood that we would d/c all meds except comfort meds only continued with the morphine push IV and ativan for comfort care 10/06/20 Continue comfort care only Looks comfortable in bed Continue to titrate IV morphine drip to transition to po as per palliative care Continue IV ativan prn Continue Guaifenesin and albuterol prn Daughter is comfortable to take her home for home hospice referral placed by case management for outpatient hospice 10/07/2020 Dr. Lord from palliative medicine following, transitioned pt from IV morphine to PO CODE status DNR /Comfort care only Plan to dc home w/ hospice today Total Time Total Time Spent Total Time Spent (In Minutes): 40 Total Time Includes: Examination of the Patient, Discharge Planning, Medication Reconciliation and Communication With Other Providers Discharge Plan Discharge Items Patient Disposition: Hospice - Home Reason For Visit: ILLNESS Discharge Diagnosis: Acute respiratory acidosis Acute resp. failure w/ hypoxia and hypercapnia Aspiration Chronic thromboembolic disease Hypercoagulable state Elevated troponin Gram-positive bacteremia Flu-like symptoms MDS (myelodysplastic syndrome) Condition on Discharge: Good Activity: As commented below Activity Comment: per hospice Non-emergency contact: Primary Care Provider Call non-emergency contact if: you have any medication questions and your symptoms worsen Follow-up/Referrals: Valerie Chavez MD [Primary Care Provider] - 10/12/20 10:20 am (Date & Time 10/12/2020 10:20 AM Provider Ghislaine Booker MD Department General Internal Medicine [facility] ) Diet: Clear liquid Liquid Consistency: [place] thick Addtl Attending Provider Instructions: Patient to be discharged home with home hospice. Most of your medications can be stopped as they will not be helpful. Discuss with the hospice nurse which medication could still be helpful. Pending Studies at Discharge: No Stand-Alone Forms: My [facility] Medications and DC Order Prescriptions: New morphine concentrate 100 mg/5 mL (20 mg/mL) Solution 5 mg PO Q4H PRN (Reason: pain or dyspnea) Qty: 30 RF: 0 lorazepam 0.5 mg Tablet 0.5 mg sublingual Q6H PRN (Reason: anxiety or dyspnea) Qty: 10 RF: 0 Continued ondansetron HCl 8 mg Tablet 8 mg PO Q12H PRN (Reason: Nausea) RF: 0 albuterol sulfate 2.5 mg /3 mL (0.083 %) solution for nebulization 2.5 mg inhalation Q4H PRN (Reason: Wheezing) RF: 0 Spiriva with HandiHaler 18 mcg capsule, w/inhalation device 1 cap INHALATION QAM RF: 0 acetaminophen [Tylenol] 325 mg Tablet 325 mg PO QID PRN (Reason: Pain) RF: 0 docusate sodium 100 mg Capsule 100 mg PO BID Qty: 30 RF: 0 Discontinued rizatriptan [Maxalt] 10 mg Tablet 10 mg PO .DAILY/UD PRN (Reason: Headache) RF: 0 bismuth subsalicylate [Pepto-Bismol] 262 mg/15 mL Suspension 524 mg PO QID PRN (Reason: GI-UPSET) RF: 0 risedronate [Actonel] 35 mg tablet 35 mg PO WK RF: 0 sucralfate [Carafate] 1 gram tablet 1 gm PO ACHS RF: 0 allopurinol 100 mg Tablet 100 mg PO DAILY RF: 0 aspirin 81 mg Tablet,Delayed Release (Dr/Ec) 81 mg PO DAILY RF: 0 temazepam [Restoril] 30 mg Capsule 30 mg PO HS PRN (Reason: Sleep) RF: 0 pantoprazole [Protonix] 40 mg Tablet,Delayed Release (Dr/Ec) 40 mg PO BID RF: 0 olopatadine 0.1 % drops 1 drp OPB BID PRN (Reason: ITCHY EYES) RF: 0 fluticasone propion-salmeterol [Advair Diskus] 500-50 mcg/dose blister with device 1 inh INHALATION BID RF: 0 albuterol sulfate [Ventolin HFA] 90 mcg/actuation HFA aerosol inhaler 2 puff INHALATION QID PRN (Reason: Shortness Of Breath Or Wheezing) RF: 0 loperamide 2 mg capsule 2 mg PO Q4H PRN (Reason: Diarrhea) RF: 0 trazodone 50 mg tablet 50 mg PO HS RF: 0 hydroxyurea 500 mg capsule 500 mg PO DAILY RF: 0 multivitamin [Daily-Ted] Tablet 1 tab PO QAM Qty: 30 RF: 0 bisacodyl 10 mg Suppository 10 mg MN DAILY PRN (Reason: constipation) Qty: 30 RF: 0 ferrous gluconate 324 mg (38 mg iron) Tablet 324 mg PO BIDM Qty: 30 RF: 0 prednisone 20 mg tablet 20 mg PO DIRECTED RF: 0 levofloxacin 500 mg tablet 500 mg PO DIRECTED RF: 0 anagrelide 1 mg capsule 1 mg PO DAILY RF: 0 Discharge Orders: Discharge Order (Routine); Ordered 10/08/20 Ordered By: Nikolas Umana Admission Data Admit Date/Time: 09/27/20 21:36 Attending Provider: Nikolas Umana Admit Provider: Geovanni Ibanez Primary Care Provider: Valerie Chavez Other Providers: [facility],Home Healthcare ; Desiree Cason ; Geovanni Ibanez ; Russ Lozano ; Mainor Chavez ; Pilar Holt ; Felix Robertson ; Abhijit Muñiz ; Sanjay Kahn I. ; Savage Maldonado II ; Lluvia Peralta ; Bandar Peraza ; Estrellita Lord ; Jos Salamanca ; Rebecca Andres Other Interventions: Discharge Summary Assessment (RN) Last Done: 10/08/20 10:09
--- NOTE | 2020-10-20 08:06 | Coding Query ---
CODING QUERY To promote full compliance with coding requirements relating to patient care, provider participation is requested in all cases of rigger supervisor uncertainty. Please assist us with the question(s) below: Coding Question(s): There is Sepsis and Bacteremia documented in the record, with the Discharge Summary documenting Bacteremia. Please specify below, in your clinical opinion. ( x ) Sepsis. Please specify further below: Please specify below, regarding the likely cause of Sepsis: ( x) Pneumonia is the likely etiology ( ) Other likely etiology. Please Specify____or possibly mediport ( ) Unknown likely etiology Please specify below, regarding the present on admission status of Sepsis: ( x) likely Present on Admission ( ) Not likely Present on Admission ( ) Unknown likely POA status ( x ) Bacteremia. Please specify further below: Please specify below, regarding the likely cause of Bacteremia: ( x) Pneumonia is the likely etiology ( ) Other likely etiology. Please Specify or possibly mediport ( ) Unknown likely etiology Please specify below, regarding the present on admission status of Bacteremia: ( x ) likely Present on Admission ( ) Not likely Present on Admission ( ) Unknown likely POA status Physician's Response(s): Thank you Annabel Elizabeth Principal Diagnosis: "that condition established after study, to be chiefly responsible for occasioning the admission of the patient to the hospital for care." Co-Existing Principal Diagnosis: "when two or more diagnoses equally meet the criteria for principal diagnosis as determined by the circumstances of admission, diagnostic work up, and/or therapy provided, and the Alphabetic Index, Tabular List, or another coding guideline does not provide sequencing direction, any one of the diagnoses may be sequenced first." "When the physician has documented what appears to be a current diagnosis in the body of the record, but has not included the diagnosis in the final diagnostic statement, the physician should be asked whether the diagnosis should be added." (Source [facility] 2 QTR90. p3-4) SHAY
--- NOTE | 2020-10-20 08:18 | Coding Query ---
PRESENT ON ADMISSION QUERY To promote full compliance with coding requirements relating to pateint care, physician participation is requested in all cases of tax appraiser uncertainty. Please assist us with the question(s) below: Please place an X within the parenthesis (x). The following diagnosis(es) listed in this patient's medical record require physician assistance to determine if they were present on admission (POA) or not. Please advise for each diagnosis whether it was present on admission, not present on admission, or if it was clinically undetermined. 1. Aspiration Pneumonia - (H&P documents, "She has had significnat dysphagia this week and is currently NPO-aspiration may be contributing to respiratory symptoms.?", and 10/02/20 Communication Report documents, "Patient daughter agreeable to medical management for presumptive COPD exacerbation from aspiration pneumonia for now" and Discharge Summary documents "Aspiration") ( x) Present On Admission ( ) Not Present On Admission ( ) Clinically Undetermined ( ) Aspiration Pneumonia Ruled-Out 2. Aspirated Pill Fragment - (Communication Note on 09/30/20 documents, "She appears to have a foreign body lodged in her bronchus intermedius based on the CT chest report" and the CT report on 09/30/20 documents, "New 1 cm calcific filling defect within the right bronchus intermedius likely representing an aspirated pill fragment. This finding was not described in the pulmonary report, and will therefore be called to the floor. Pulmonary consultation is recommended") ( ) Present On Admission ( ) Not Present On Admission ( x) Clinically Undetermined Thank you Annabel Elizabeth *Definition of the present on admission (POA)-Present on admission is defined as present at the time the order for inpatient admission occurs. Conditions that develop during an outpatient encounter prior to a written order for inpatient admission (including emergency department, observation, or outpatient surgery) are considered present on admission. MTDD
--- NOTE | 2020-10-20 08:21 | Coding Query ---
To promote full compliance with coding requirements relating to patient care, provider participation is requested in all cases of braille coder uncertainty. Please assist us with the question(s) below: Coding Question(s): The diagnosis(es) below was documented in the ER, H&P AND EARLY PROGRESS NOTE, then subsequently fell off all further documentation. Please indicate if it is still a possible diagnosis or ruled out. Physician's Response(s): NSTEMI ( x ) Diagnosed and POA Per cardiology consult note: Abnormal EKG suggestive of anterior, anteroseptal ischemia, or strain related to RV dysfunction from chronic thrombolic embolic pulmonary hypertension. ( ) Diagnosed and not POA ( ) Ruled out ( ) Other (please specify) MTDD
--- NOTE | 2020-10-20 08:49 | Coding Query ---
To promote full compliance with coding requirements relating to patient care, provider participation is requested in all cases of snowboard instructor uncertainty. Please assist us with the question(s) below: Coding Question(s): The diagnosis(es) below was documented in the EARLY RECORD IN H&P, CARDIOLOGY CONSULT, PROGRESS NOTE, then subsequently fell off all further documentation. Please indicate if it is still a possible diagnosis or ruled out. Physician's Response(s): POSSIBLE CAP. POSSIBLE ATYPICAL PNEUMONIA ( x ) Diagnosed and POA ( ) Diagnosed and not POA ( ) Ruled out ( x ) Other (please specify) Likely aspiration pna POSSIBLE BACTERIAL PNEUMONIA ( x ) Diagnosed and POA ( ) Diagnosed and not POA ( ) Ruled out ( x) Other (please specify) Likely aspiration pna POSSIBLE VIRAL PNEUMONIA ( ) Diagnosed and POA ( ) Diagnosed and not POA ( x ) Ruled out ( ) Other (please specify) MTDD
--- NOTE | 2020-10-23 08:26 | Coding Query ---
PRESENT ON ADMISSION QUERY To promote full compliance with coding requirements relating to pateint care, physician participation is requested in all cases of delinquent tax collector uncertainty. Please assist us with the question(s) below: Please place an X within the parenthesis (x). The following diagnosis listed in this patient's medical record require physician assistance to determine if they were present on admission (POA) or not. Please advise for each diagnosis whether it was present on admission, not present on admission, or if it was clinically undetermined. 1. HYPERCOAGULABLE STATE (documentation begins on first Progress Note on 09/28/19) (x ) Present On Admission ( ) Not Present On Admission ( ) Clinically Undetermined Thank you Annabel Elizabeth *Definition of the present on admission (POA)-Present on admission is defined as present at the time the order for inpatient admission occurs. Conditions that develop during an outpatient encounter prior to a written order for inpatient admission (including emergency department, observation, or outpatient surgery) are considered present on admission. DOMONIQUED
== END 2020-10-08 14:56 | disposition hospice, home (50) | DRG 814 ==
LOC: ED 18:00 → SUATTDRO 21:36 → 2S 21:36 → 1E 09-30 04:46 → 3N 09-30 18:46